=== PATIENT | male | born 1940 | race Caucasian/White ===

== ENCOUNTER → 2018-02-28 12:29 | Outpatient (CLI) | payer MEDICARE, OTHER, SELFPAY ==
[2018-02-28 14:29] LABS: Hematocrit 39.5 % (40-54); Hemoglobin 12.8 g/dl (13.0-16.5); Mean Corp Hgb Conc 32.4 g/gl (32-36); Mean Corpuscular Hgb 28.5 pg (27.0-32.0); Mean Platelet Vol. 10.4 fl (6.2-12.0); Platelet Count 220 K/mm3 (150-450); RBC Distribution Width SD 44.4 fl (35.1-43.9); Red Blood Count 4.49 M/mm3 (4.6-6.2); White Blood Count 8.2 K/mm3 (4.4-11.0)
[2018-02-28 14:30] LABS: Scan Indicated on CBC? Y/N NO
[2018-02-28 14:59] LABS: ALB/GLOB Ratio 0.8 RATIO (0.9-2.4); AST(SGOT) 17 U/L (15-37); Alanine Aminotransfer ALT/SGPT 17 U/L (16-61); Albumin, Serum 3.5 g/dL (3.2-5.0); Alkaline Phosphatase 71 U/L (45-117); Anion Gap 7 (5-15); BUN 40 mg/dL (7-18); BUN/Creat Ratio 28.2 RATIO (10-20); Calcium,Total 8.5 mg/dL (8.5-10.1); Chloride 107 mmol/L (98-107); Cholesterol 148 mg/dL (200); Creatinine, Serum 1.42 mg/dL (0.70-1.30); EST Glomerular Filtration Rate 51 mL/min (>60); Est Glom Filt Rate - Afr Amer 62 mL/min (>60); Globulin 4.2 g/dL (2.2-4.2); Glucose 95 mg/dL (74-106); High Density Lipoprotein 48 mg/dL; Potassium 4.1 mmol/L (3.5-5.1); Protein, Total 7.7 g/dL (6.4-8.2); Sodium Level 143 mmol/L (136-145); Triglycerides 92 mg/dL; Very Low Density Lipoprotein 18 mg/dL (5-40)
== END ==
PROVIDERS: Family Provider Family Medicine; PCP Family Medicine; Visit Provider Family Medicine
DX: I48.91 Unspecified atrial fibrillation (principal); E11.9 Type 2 diabetes mellitus without complications
CPT/HCPCS: 36415; 80053; 80061; 84443; 85027

== ENCOUNTER → 2018-03-15 17:59 | Outpatient (CLI) | payer MEDICARE, OTHER, SELFPAY ==
--- NOTE | 2018-03-15 | IMM_PTH ---
PATIENT: SANTOS GARCES LOC: [facility] U#:[id number] AGE/SX: 85/M ROOM: RE03/15/[address]: Dr. Abrahan Modi MD : 1940 BED: DIS: SPEC #: [id number] RECD: 03/22/18 16:57 STATUS: EUSEBIO MAYTE #: [id number] KENNY: 03/15/18 00:[address]: Abrahan Modi DEPT: IMMUNOHISTOCHEMISTRY RECD BY: Surekha Payne Tissues: Skin of back, NOS Procedures: Ayr-1 (initial) CK5-6 (add) P40 (add) S-100 (add) PHYSICIAN & INSTITUTION [place] [id number] SPECIMEN INFORMATION: Tissue Source: Back lesion Clinical Info: Back lesion Specimen Number: [id number] CPT code: 63893, 49905 x3 METHODOLOGY: Deparaffinized sections of prefer/formalin-fixed tissue or PAP/DQ stained slides are incubated with monoclonal/polyclonal antibodies/oligonucleotide probes. Localization is made via biotin free immunoperoxidase method. Appropriate controls are performed and reacted as expected. Results on target cell population are indicated in the following table: RESULTS: ANTIBODY / CLONE RESULT S-100 (4C4.9) negative MART-1 (A-103) negative CK5-6 (D5 & 1684) positive P40 (BC28) positive These tests were developed and their performance characteristics determined by [facility]. They may not have been cleared or approved by the U.S. Food and Drug Administration. The FDA has determined that such clearance or approval is not necessary. INTERPRETATION: Back lesion, excisional biopsy: Invasive squamous cell carcinoma. SJ:baljeet 03/22/18
--- NOTE | 2018-03-15 | LES_PTH ---
PATIENT: SANTOS GARCES LOC: [facility] U#:[id number] AGE/SX: 85/M ROOM: RE03/15/[address]: Dr. Abrahan Modi MD : 1940 BED: DIS: SPEC #: [id number] RECD: 03/15/18 17:58 STATUS: EUSEBIO HU #: [id number] KENNY: 03/15/18 00:[address]: Abrahan Modi DEPT: SURGICAL PATHOLOGY RECD BY: Caleb Bravo Tissues: Skin of back, NOS Procedures: Surgery Specimen Level IV HEADER OPERATION: Excision back PRE-OP DIAGNOSIS: Back lesion, rule out melanoma TISSUE SUBMITTED: Back lesion MICROSCOPIC DIAGNOSIS Back lesion, shave biopsy: Invasive squamous cell carcinoma extending up to deep and peripheral margins of the specimen. See comment. DOUGIE:baljeet 03/22/18 COMMENT Immunohistochemistry ([id number]) supports the above diagnosis. Case has been reviewed in consultation with Dr. Burris who concurs with the above diagnosis. IDC:AM MICROSCOPIC DESCRIPTION Slides are reviewed. GROSS DESCRIPTION Received in fixative is one container labeled with the patient's name and designated back. The specimen consists of a discoid fragment of light to dark vernon soft tissue measuring 1.5 cm in diameter and 0.2 cm in thickness. The specimen is inked, serially sectioned and totally submitted in one cassette. / AM:baljeet 03/16/18 TC:0 CPT: 03908
== END ==
PROVIDERS: Family Provider Family Medicine; PCP Family Medicine; Visit Provider Family Medicine
DX: L98.9 Disorder of the skin and subcutaneous tissue, unspecified (principal)
CPT/HCPCS: 88305; 88341; 88342

== ENCOUNTER → 2018-04-09 11:34 | Outpatient (CLI) | payer MEDICARE, OTHER, SELFPAY ==
--- NOTE | 2018-04-09 11:38 | RAD_ITS ---
STUDY: X-RAY - LEFT SHOULDER REASON FOR EXAM: Male, 77 years old. Shoulder pain TECHNIQUE: 4 view(s) of the shoulder. COMPARISON: None. FINDINGS: There is cephalad migration of the humeral head consistent with rotator cuff pathology. There is degenerative arthrosis of the acromioclavicular joint . Normal acromion. Normal humeral head and visualized proximal humerus. The soft tissue structures are unremarkable. Normal visualized pulmonary apex. RAD/Shoulder min 2 Views IMPRESSION: Cephalad migration of the humeral head suggestive of underlying rotator cuff injury. Degenerative changes. Electronically Signed: Sandra Liriano MD at 21:12 EDT Tel , Service support ,
== END ==
PROVIDERS: Family Provider Family Medicine; PCP Family Medicine; Visit Provider Family Medicine
DX: M25.512 Pain in left shoulder (principal)
CPT/HCPCS: 73030

== ENCOUNTER → 2018-05-26 08:20 | Outpatient (CLI) | payer MEDICARE, OTHER, SELFPAY ==
--- NOTE | 2018-05-26 08:20 | LES_PTH ---
PATIENT: SANTOS GARCES LOC: [facility] U#:[id number] AGE/SX: 85/M ROOM: RE05/26/[address]: Dr. Taras Collins MD : 1940 BED: DIS: SPEC #: [id number] RECD: 05/28/18 07:49 STATUS: EUSEBIO SCHROEDERMichelle #: [id number] KENNY: 05/26/18 08:[address]: Taras Collins DEPT: SURGICAL PATHOLOGY RECD BY: Josefa Quintanilla ENTERED: 05/28/18 09:37 SP TYPE: Lesion OTHR DR: Dr. Abrahan Modi MD Tissues: Skin of back, NOS Procedures: Surgery Specimen Level IV HEADER OPERATION: Excision squamous cell of back PRE-OP DIAGNOSIS: Squamous cell carcinoma TISSUE SUBMITTED: Back MICROSCOPIC DIAGNOSIS Squamous cell carcinoma of back, excision: Negative for residual carcinoma. Actinic keratosis. Lichenoid dermal chronic inflammation and dermal fibrosis consistent with scar. SJ:baljeet 05/30/18 COMMENT Please make reference to previous specimen ([id number]) back lesion, shave biopsy with diagnosis of invasive squamous cell carcinoma extending up to deep and peripheral margin of the specimen. Case has been reviewed in consultation with Dr. Burris who concurs with the above diagnosis. IDC:AM MICROSCOPIC DESCRIPTION Slides are reviewed. GROSS DESCRIPTION Received in fixative is one container labeled with the patient's name and designated back. The specimen consists of a vernon-white skin ellipse measuring 4.5 x 2 cm and up to 0.6 cm in thickness. The specimen is inked, serially sectioned and submitted entirely in four cassettes. Cassette 1 contains the tips. The specimen will be submitted after overnight fixation. / DOUGIE:baljeet 05/28/18 TC:5 CPT: 14943
== END ==
PROVIDERS: Family Provider Family Medicine; PCP Family Medicine; Visit Provider Surgery
DX: C44.529 Squamous cell carcinoma of skin of other part of trunk (principal)
CPT/HCPCS: 88305

== ENCOUNTER → 2018-06-07 14:55 | Outpatient (CLI) | payer MEDICARE, OTHER, SELFPAY ==
[2018-06-07 15:34] LABS: Absolute Lymphocyte Count 1.41 X10^3/ul (0.83-4.51); Absolute Neutrophil Count 3.5 X10^3/uL (2.0-7.7); Basophil# 0.02 X10^3/uL; Basophil% 0.4 % (0-1); Eosinophil# 0.09 X10^3/uL; Eosinophils% 1.6 % (0-5); Hematocrit 34.5 % (40-54); Hemoglobin 11.2 g/dl (13.0-16.5); Lymphocyte # 1.41 X10^3/ul (4.0); Lymphocyte % 25.4 % (19-41); Mean Corp Hgb Conc 32.5 g/gl (32-36); Mean Corpuscular Hgb 28.5 pg (27.0-32.0); Mean Corpuscular Volume 87.8 fL (80-94); Mean Platelet Vol. 9.3 fl (6.2-12.0); Monocyte# 0.57 X10^3/uL; Monocyte% 10.3 % (0-10); Neutrophil # 3.45 X10^3/uL (2.7-7.7); Neutrophil % 62.1 % (47-70); Platelet Count 240 K/mm3 (150-450); RBC Distribution Width CV 13.1 % (11.6-14.6); RBC Distribution Width SD 40.7 fl (35.1-43.9); Red Blood Count 3.93 M/mm3 (4.6-6.2); White Blood Count 5.6 K/mm3 (4.4-11.0)
[2018-06-07 15:39] LABS: POSITIVE COUNT NO; POSITIVE DIFFERENTIAL NO; POSITIVE MORPHOLOGY NO
[2018-06-07 16:07] LABS: Anion Gap 12 (5-15); BUN 21 mg/dL (7-18); BUN/Creat Ratio 21.3 RATIO (10-20); Calcium,Total 8.4 mg/dL (8.5-10.1); Chloride 109 mmol/L (98-107); Creatinine, Serum 0.99 mg/dL (0.70-1.30); EST Glomerular Filtration Rate 78 mL/min (>60); Est Glom Filt Rate - Afr Amer 95 mL/min (>60); Glucose 87 mg/dL (74-106); Potassium 3.6 mmol/L (3.5-5.1); Sodium Level 146 mmol/L (136-145); Thyroid Stim Hormone (TSH) 0.98 uIU/mL (0.358-3.74)
[2018-06-08 09:19] LABS: Vitamin D,25 Hydroxy 58.1 ng/mL (29.95-100.01)
[2018-06-10 11:20] LABS: Hep C Antibodies 0.1 s/co ratio (0.0-0.9)
== END ==
PROVIDERS: Family Provider Family Medicine; PCP Family Medicine; Visit Provider Family Medicine
DX: N18.2 Chronic kidney disease, stage 2 (mild) (principal); D63.1 Anemia in chronic kidney disease; E03.9 Hypothyroidism, unspecified; E55.9 Vitamin D deficiency, unspecified; Z11.59 Encounter for screening for other viral diseases
CPT/HCPCS: 36415; 80048; 82306; 84443; 85025; 86803

== ENCOUNTER 2019-02-09 12:26 | Inpatient (IN) | payer MEDICARE, OTHER, SELFPAY ==
[2019-02-09] VITALS (17 sets, daily range): BP systolic 136–173; BP diastolic 61–80; PULSE 89–112; RESP 16–28; TEMP 36.4–37.8; O2SAT 87–94; BMI 25.4; BMI 23.8; BMI 23.9
--- NOTE | 2019-02-09 12:50 | EKG12_ITS ---
Test Reason : COUGH Blood Pressure : / mmHG Vent. Rate : 099 BPM Atrial Rate : 110 BPM P-R Int : 000 ms QRS Dur : 104 ms QT Int : 370 ms P-R-T Axes : 000 -32 101 degrees QTc Int : 474 ms Atrial fibrillation Left axis deviation Minimal voltage criteria for LVH, may be normal variant Nonspecific ST & T Wave Abnormality Prolonged QT Abnormal ECG Confirmed by KYRIE BRANNON, CORBIN ([id number]), field map editor MANUEL CHERRY ([id number]) on 02/11/2019 11:59:59 AM Referred By: Gita Ventura Confirmed By:CORBIN MITTAL MD
--- NOTE | 2019-02-09 12:50 | RAD_ITS ---
STUDY: X-RAY CHEST REASON FOR EXAM: Male, 78 years old. Cough TECHNIQUE: Frontal and lateral views of the chest. COMPARISON: None. FINDINGS: Normal lung volumes. Bilateral lower lobe infiltrates worse on the right. No gross effusions. There is moderate cardiac enlargement. There has been CABG. Normal mediastinum and jamal. Normal visualized pulmonary arteries. There is atherosclerotic calcification of the aortic arch with tortuosity. The visualized bones and joints show degenerative changes. There is no demonstrated abnormality of the visualized soft tissue structures of the upper abdomen. RAD/Chest PA and Lateral IMPRESSION: Bilateral lower lobe infiltrates worse on the right. Electronically Signed: Michael Couch MD at 14:08 EDT , Service support ,
[2019-02-09] MEDS: 0.9% Normal Saline 1,000 ML 150 ML IV ×2 (13:14→15:54)
[2019-02-09] MEDS: Albuterol 2.5 MG/3 ML VIAL.NEB. INHALATION (13:20)
[2019-02-09] MEDS: Ipratropium/Albuterol Sulfate 3 ML AMPUL.NEB INHALATION ×2 (13:20→19:38)
[2019-02-09 13:25] LABS: Absolute Lymphocyte Count 0.75 X10^3/ul (0.83-4.51); Basophil# 0.01 X10^3/uL; Basophil% 0.1 % (0-1); Hematocrit 37.8 % (40-54); Hemoglobin 12.5 g/dl (13.0-16.5); Lymphocyte # 0.75 X10^3/ul (4.0); Lymphocyte % 7.4 % (19-41); Mean Corp Hgb Conc 33.1 g/gl (32-36); Mean Corpuscular Hgb 28.5 pg (27.0-32.0); Mean Corpuscular Volume 86.3 fL (80-94); Mean Platelet Vol. 10.4 fl (6.2-12.0); Monocyte# 0.41 X10^3/uL; Neutrophil % 88.4 % (47-70); POSITIVE COUNT NO; POSITIVE DIFFERENTIAL NO; POSITIVE MORPHOLOGY NO; Platelet Count 155 K/mm3 (150-450); RBC Distribution Width CV 14.4 % (11.6-14.6); Red Blood Count 4.38 M/mm3 (4.6-6.2); White Blood Count 10.2 K/mm3 (4.4-11.0)
[2019-02-09 13:38] LABS: Prothrombin Time (Protime)PT. 35.1 SECONDS (11.7-14.9)
[2019-02-09 13:42] LABS: Anion Gap 9 (5-15); BUN 29 mg/dL (7-18); BUN/Creat Ratio 21.3 RATIO (10-20); Calcium,Total 8.3 mg/dL (8.5-10.1); Chloride 105 mmol/L (98-107); Creatinine, Serum 1.36 mg/dL (0.70-1.30); EST Glomerular Filtration Rate 54 mL/min (>60); Est Glom Filt Rate - Afr Amer 65 mL/min (>60); Estimated Creatinine Clearance 32.17 ml/min; Glucose 162 mg/dL (74-106); Potassium 3.8 mmol/L (3.5-5.1); Sodium Level 141 mmol/L (136-145)
[2019-02-09 13:43] LABS: International Normalized Ratio 3.5
[2019-02-09 14:02] LABS: Lactic Acid 2.6 mmol/L (0.4-2.0)
--- NOTE | 2019-02-09 14:09 | ED.DCSUM_ITS ---
- ER Visit Summary Date of Service: 02/09/19 Chief Complaint: Cough, shortness of breath History of Present Illness: The patient is a 78 M with a 4-day history of cough and shortness of breath. He believes he has pneumonia. He denies fever or chest pain. He does have a history of COPD but does not use home oxygen and does not use aerosols. Patient does have a history of A. fib and PE and does take Coumadin. Physical Examination: Blood pressure is 163/80, temperature 98.6, heart rate 112, respiratory rate 18, pulse ox 94% on room air. At the time of my examination nursing staff has placed patient on nasal cannula because his oxygen saturation dropped to 88% on room air. Patient is sitting upright in bed no acute distress. Heart is regular rate and rhythm. Lungs sounds with mild expiratory wheeze at the right base. Abdomen is soft and nontender. Test Results: EKG is A. fib at [address] depression. CBC was normal white count but left shift is noted with 88% neutrophils. Hemoglobin is 12.5. Chemistry studies reveal glucose of 162, BUN 29, creatinine 1.36. INR is 3.5. Troponin is 0.015. Lactic acid is 2.6. Blood cultures have been obtained. Two-view chest x-ray reveals right lower lobe infiltrate. Emergency Department Course and Treatment: Patient was given aerosols and Rocephin and Zithromax were ordered upon completion of chest x-ray. With return of lactic acid patient is ordered IV fluid bolus. Patient will be admitted for further treatment. Treatment Plan: [] Disposition: Admit Impression: Right lower lobe pneumonia with severe sepsis This note was generated with [employer] dictation software. It may contain incorrect words, spelling, and punctuation that were not noted in review of the chart prior to signing ED Disposition - Plan for ED Patient: Referrals: Ihsan Modi MD [Primary Care Provider] -
[2019-02-09] MEDS: Ceftriaxone 1 GM/50 ML BAG IV ×2 (14:13→21:08)
--- NOTE | 2019-02-09 14:14 | HP.PCM_ITS ---
History of Present Illness Date of Admission: 02/09/19 Chief Complaint: shortness of breath, cough The patient is a 78 year old M with a past medical history as listed. He was admitted through the ED on 02/09/2019 with a complaint of cough and shortness of breath for the past 4 days prior to admission. He also has generalized malaise. He denied any fever chills or chest pain but admitted to rhinorrhea. He denies being around anyone with similar symptoms. Patient is on Coumadin for A. fib and PE. On admission in the ED, vitals were significant for tachycardia with heart rate of 112 respiratory rate of 20. He desaturated to 88% on room air required 2 L to bring saturation up to 94%. Chest x-ray showed bilateral lower lobe infiltrates and CBC was significant for no leukocytosis with white cell count of 10.2. EKG showed A. fib with concerns of possible lateral ischemia initial troponin was 0.015. He has been admitted to be managed for sepsis due to community-acquired pneumonia as well as acute hypoxic respiratory insufficiency due to committee acquired pneumonia. Of note lactic acid was 2.6. 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) Pulmonary embolism (Chronic) Hypothyroidism (Chronic) CAD (coronary artery disease) (Chronic) Cold (Chronic) Benign essential HTN (Chronic) History of tobacco use (Chronic) Atrial fibrillation (Chronic) Medical History: Medical History (Last Reviewed 04/23/18 @ 08:45 by Vanessa Knutson) Squamous cell carcinoma of skin (Acute) C44.92 Tobacco dependence in remission (Chronic) F17.201 Ruptured abdominal aortic aneurysm (Chronic) I71.3 Pulmonary embolism (Chronic) I26.99 Hypothyroidism (Chronic) E03.9 CAD (coronary artery disease) (Chronic) I25.10 Cold (Chronic) J00 Benign essential HTN (Chronic) I10 History of tobacco use (Chronic) Z87.891 Atrial fibrillation (Chronic) I48.91 Allergies No Known Allergies Allergy (Verified 05/26/18 08:01) Home Medications: Ambulatory Orders Medication Instructions Recorded amlodipine 10 mg tablet 10 mg PO QDAY 04/23/18 cholecalciferol (vitamin D3) 2,000 2,000 unit PO QDAY 04/23/18 unit capsule furosemide 40 mg tablet 20 mg PO QDAY 04/23/18 levothyroxine 75 mcg capsule 75 mcg PO QDAY 04/23/18 metoprolol succinate ER 200 mg 200 mg PO BID 04/23/18 tablet,extended release 24 hr nitroglycerin 0.4 mg sublingual 0.4 mg SUBLINGUAL Q5-15M PRN 04/23/18 tablet warfarin 4 mg tablet 4 mg PO QDAY 04/23/18 Amiodarone HCl [Pacerone] 200 mg PO DAILY 02/09/19 Ramipril [Altace] 10 mg PO BID 02/09/19 Surgical History: Surgical History (Last Updated 04/23/18 @ 08:45 by Vanessa Knutson) Hx of replacement of aortic valve (Chronic) Z95.2 historyamputation right hand Lives: Spouse/ Significant Other Smoking Status: Former smoker Tobacco Use: Non-smoker Alcohol: None Drugs: None - *Family History Maternal Family History: Family History (Last Updated 04/23/18 @ 08:47 by Vanessa Knutson) Grandfather Diabetes Brother Heart disease Review of Systems Constitutional: Reports: Anorexia, Malaise, Weakness, Fatigue. Denies: Chills, Fever Eyes: Denies: Blurred vision HEENT: Denies: Head Aches, Sinus Congestion, Sinus Drainage Cardiovascular: Denies: Chest Pain, Chest Pressure, Chest Tightness, Edema, Light Headedness, Palpitations, Paroxysmal Noc. Dyspnea Respiratory: Reports: Cough, Shortness of Breath, Shortness of breath at rest, Shortness of breath upon exertion, Sputum production. Denies: Hemoptysis, Pleuritic Pain, Wheezing Gastrointestinal: Denies: Abdominal Pain, Nausea, Vomiting Genitourinary: Denies: Dysuria Musculoskeletal: Denies: Joint Pain, Joint Tenderness Skin: Denies: Rash, Wounds Neurological: Denies: Numbness, Tingling, Focal weakness Psychiatric: Denies: Anxiety, Depression, Homicidal Ideations, Suicidal Ideations Hematologic/ Lymphatic: Denies: Easy Bruising, Easy Bleeding VTE Information - Inpt Only VTE Present on Admission: No VTE Pharm Prophylaxis ordered?: Yes - Physical Exam General: Alert, Oriented x3, Cooperative, Lethargic HEENT: Atraumatic, PERRLA, EOMI, Normocephalic Oral: Dry Mucosa Neck: Supple, No JVD, Negative Carotid Bruits Lungs: - - decreased breath sounds bibasally, with coarse crackles in mid and lower lung alonzo bilaterally Cardiovascular: Regular rate, Regular Rhythm, Normal S1, Normal S2, No murmurs Abdomen: Bowel Sounds Present, Soft, Non Tender, Non-Distended, No Hepato- splenomegaly Extremities: No clubbing, No cyanosis, No edema, Capillary Refill Less than 3 Seconds Skin: No rashes, No breakdown Musculoskeletal: - - right forearm amputation (from industrial accident in 1971) Lymphatic: No Cervical, Supraclavicular, or Inguinal Adenopathy Neurological: Cranial nerves II-XII grossly intact, Neuro grossly intact, Motor Exam 5/5 strength throughout Psych/Mental Status: Normal Affect, Appropriate, Alert and oriented to time, place, person, mood and affect Vital Signs Temp Pulse Resp BP Pulse Ox 97.6 F L 103 H 20 H 173/75 H 92 02/09/19 12:43 02/09/19 13:20 02/09/19 13:20 02/09/19 12:43 02/09/19 13:34 Oxygen Flow Rate (L/min) 2 Oxygen Delivery Method Nasal Cannula Weight: 130 lb Body Mass Index (BMI) 25.4 Laboratory Tests Past 24 Hrs 02/09/19 02/09/19 02/09/19 13:10 13:10 13:10 WBC 10.2 RBC 4.38 L Hgb 12.5 L Hct 37.8 L MCV 86.3 MCH 28.5 MCHC 33.1 RDW 14.4 RDW Differential 46.0 H Plt Count 155 MPV 10.4 Immature Gran % (Auto) 0.100 Neut % (Auto) 88.4 H Lymph % (Auto) 7.4 L [place] % (Auto) 4.0 Eos % (Auto) 0.0 Baso % (Auto) 0.1 Absolute Neuts (auto) 9.0 H Absolute Lymphs (auto) 0.75 L Total Counted Not Reportable PT 35.1 H INR 3.5 H* Sodium 141 Potassium 3.8 Chloride 105 Carbon Dioxide 27.0 Anion Gap 9 BUN 29 H Creatinine 1.36 H Estim Creat Clear Calc 32.17 Est GFR (MDRD) Af Amer 65 Est GFR (MDRD) Non-Af 54 L BUN/Creatinine Ratio 21.3 H Glucose 162 H Lactic Acid Calcium 8.3 L Troponin I 0.015 02/09/19 13:10 WBC RBC Hgb Hct MCV MCH MCHC RDW RDW Differential Plt Count MPV Immature Gran % (Auto) Neut % (Auto) Lymph % (Auto) [place] % (Auto) Eos % (Auto) Baso % (Auto) Absolute Neuts (auto) Absolute Lymphs (auto) Total Counted PT INR Sodium Potassium Chloride Carbon Dioxide Anion Gap BUN Creatinine Estim Creat Clear Calc Est GFR (MDRD) Af Amer Est GFR (MDRD) Non-Af BUN/Creatinine Ratio Glucose Lactic Acid 2.6 H Calcium Troponin I Diagnostic Data Chest X-Ray 02/09/19 12:50 IMPRESSION: Bilateral lower lobe infiltrates worse on the right. Electronically Signed: Michael Couch MD at 14:08 EDT , Service support , Assessment/Plan All Active Problems (Last Reviewed 04/23/18 @ 08:45 by Vanessa Knutson) Squamous cell carcinoma of skin (Acute) 78-year-old male admitted with a complaint of shortness of breath, cough and generalized malaise for 4 days prior to presentation. 1. Severe sepsis due to community acquired pneumonia * SIRS criteria- 2/4 (tachypnea and tachycardia) with elevated lactic acid of 2.6 * CXR showed bilateral infiltrates, worse on right * had mild fever of 99.6F * check respiratory panel * blood and sputum cultures * start IV ceftriaxone and azithromycin * titrate oxygen to maintain sats >90% * breathing treatments with duonebs * 2. Acute hypoxic respiratory insufficiency due to community acquired pneumonia * as under 1 * 3. DIONI * Cr is 1.36, baseline is 0.99 * likely due to dehydration * will hydrate with IVF and monitor * 4. Lactic acidosis: lactic acid is 2.6. Likely due to dehydration and sepsis. WIll hydrate and monitor. Repeat per sepsis protocol 5. Hypothyroidism: on synthroid 7. Afib: on amiodarone and metoprolol. on coumadin 4mg daily. INR is 3.5 8. Aortic valve replacement: INR is 3.5. WIll hold coumadin for today 9. Chronic heart failure with preserved EF : on lasix 20mg daily and metoprolol. EF is 60% (from echo-2014) DVT prophylaxis: on coumadin. Code status: Patient and counseled extensively about different types of CODE STATUS including full code, DNR CCA and DNR CCA. Patient elects to be full code. Total [id number] time 17 minutes. 8. Code Visit Inpatient E&M: 33516 Init Hosp L3 Procedures: 86606 Advncd Care Plan 30 Min
[2019-02-09 17:17] LABS: Reflex Lactate? Y
[2019-02-09 18:14] LABS: Lactic Acid 1.7 mmol/L (0.4-2.0)
[2019-02-09] MEDS: Metoprolol(XL)Succ 200 MG Tablet PO (21:08)
[2019-02-09] MEDS: Ramipril 10 MG Capsule PO (21:08)
[2019-02-10] VITALS (45 sets, daily range): BP systolic 109–168; BP diastolic 58–87; PULSE 93–127; RESP 12–28; TEMP 36.7–37.4; O2SAT 87–98
[2019-02-10] MEDS: Ipratropium/Albuterol Sulfate 3 ML AMPUL.NEB INHALATION ×3 (02:35→13:13)
[2019-02-10] MEDS: Amiodarone 200 MG Tablet PO (04:34)
[2019-02-10] MEDS: Metoprolol(XL)Succ 200 MG Tablet PO (06:25)
[2019-02-10] MEDS: Levothyroxine 75 MCG Tablet PO (06:26)
[2019-02-10 07:48] LABS: Anion Gap 8 (5-15); BUN 26 mg/dL (7-18); BUN/Creat Ratio 23.9 RATIO (10-20); Calcium,Total 7.8 mg/dL (8.5-10.1); Chloride 108 mmol/L (98-107); Creatinine, Serum 1.09 mg/dL (0.70-1.30); EST Glomerular Filtration Rate 70 mL/min (>60); Est Glom Filt Rate - Afr Amer 84 mL/min (>60); Estimated Creatinine Clearance 40.14 ml/min; Glucose 130 mg/dL (74-106); Potassium 3.4 mmol/L (3.5-5.1); Sodium Level 141 mmol/L (136-145)
[2019-02-10 07:57] LABS: International Normalized Ratio 2.7; Prothrombin Time (Protime)PT. 28.9 SECONDS (11.7-14.9)
[2019-02-10 08:02] LABS: Absolute Lymphocyte Count 0.42 X10^3/ul (0.83-4.51); Absolute Neutrophil Count 7.2 X10^3/uL (2.0-7.7); Basophil# 0.01 X10^3/uL; Basophil% 0.1 % (0-1); Hematocrit 37.6 % (40-54); Hemoglobin 12.1 g/dl (13.0-16.5); Lymphocyte # 0.42 X10^3/ul (4.0); Lymphocyte % 5.1 % (19-41); Mean Corp Hgb Conc 32.2 g/gl (32-36); Mean Platelet Vol. 10.3 fl (6.2-12.0); Monocyte# 0.52 X10^3/uL; Monocyte% 6.3 % (0-10); Neutrophil # 7.23 X10^3/uL (2.7-7.7); Neutrophil % 88.3 % (47-70); Platelet Count 132 K/mm3 (150-450); RBC Distribution Width CV 14.6 % (11.6-14.6); RBC Distribution Width SD 46.5 fl (35.1-43.9); Red Blood Count 4.32 M/mm3 (4.6-6.2); White Blood Count 8.2 K/mm3 (4.4-11.0)
[2019-02-10 08:08] LABS: Differential Indicated SCAN CRITERIA MET; POSITIVE COUNT NO; POSITIVE DIFFERENTIAL YES; POSITIVE MORPHOLOGY NO
[2019-02-10] MEDS: Ceftriaxone 1 GM/50 ML BAG IV ×2 (08:11→21:56)
[2019-02-10] MEDS: Ramipril 10 MG Capsule PO ×2 (08:12→21:56)
[2019-02-10] MEDS: amLODIPine 10 MG Tablet PO (08:13)
[2019-02-10] MEDS: Furosemide 20 MG Tablet PO (08:13)
[2019-02-10 08:53] LABS: Differential Comment SCANNED
--- NOTE | 2019-02-10 10:33 | PCM.PN.HOSP ---
Subjective: Patient seen and examined. He was on BiPAP at time of review. Patient required increasing amounts of oxygen during the night and was up to 6 L of oxygen before he was transferred to [facility]. Of note, patient had been on just 2 L of oxygen at time of admission yesterday. He denies any fever or chills but does admit to shortness of breath. He still has a cough which is still very productive. He denies palpitations or dizziness, diarrhea vomiting. Review of systems otherwise negative. Labs and vitals reviewed. Vitals/I&O's: Vital Signs Temp Pulse Resp BP Pulse Ox 98.1 F 115 H 20 H 162/74 H 89 02/10/19 08:20 02/10/19 08:20 02/10/19 08:20 02/10/19 08:20 02/10/19 08:20 Oxygen Flow Rate (L/min) 6 Oxygen Delivery Method Nasal Cannula Weight: 122 lb 5.705 oz Body Mass Index (BMI) 23.8 Intake and Output for Last 24 Hours 02/08/19 02/09/19 02/10/19 23:59 23:59 23:59 Intake Total 1232 / 1232 1154 / 1154 Balance 1232 / 1232 1154 / 1154 General: Alert, Oriented x3, Cooperative, Lethargic HEENT: Atraumatic, PERRLA, EOMI, Normocephalic Oral: Dry Mucosa Neck: Supple, No JVD, Negative Carotid Bruits Lungs: - - decreased breath sounds bibasally, with few coarse crackles in mid and lower lung alonzo bilaterally. on BIPAP Cardiovascular: Regular rate, Regular Rhythm, Normal S1, Normal S2, No murmurs Abdomen: Bowel Sounds Present, Soft, Non Tender, Non-Distended, No Hepato-splenomegaly Extremities: No clubbing, No cyanosis, No edema, Capillary Refill Less than 3 Seconds Skin: No rashes, No breakdown Musculoskeletal: - - right forearm amputation (from industrial accident in 1971) Lymphatic: No Cervical, Supraclavicular, or Inguinal Adenopathy Neurological: Cranial nerves II-XII grossly intact, Neuro grossly intact, Motor Exam 5/5 strength throughout Psych/Mental Status: Normal Affect, Appropriate, Alert and oriented to time, place, person, mood and affect Microbiology Past 72 Hours 02/09/19 17:32 Mucosa - Nasopharyngeal Respiratory Panel (PCR) - Final Adenovirus Laboratory Results 02/09/19 13:10: WBC 10.2, RBC 4.38 L, Hgb 12.5 L, Hct 37.8 L, MCV 86.3, MCH 28.5, MCHC 33.1, RDW 14.4, RDW Differential 46.0 H, Plt Count 155, MPV 10.4, Immature Gran % (Auto) 0.100, Neut % (Auto) 88.4 H, Lymph % (Auto) 7.4 L, [place] % (Auto) 4.0, Eos % (Auto) 0.0, Baso % (Auto) 0.1, Absolute Neuts (auto) 9.0 H, Absolute Lymphs (auto) 0.75 L, Total Counted Not Reportable 02/09/19 13:10: PT 35.1 H, INR 3.5 H* 02/09/19 13:10: Sodium 141, Potassium 3.8, Chloride 105, Carbon Dioxide 27.0, Anion Gap 9, BUN 29 H, Creatinine 1.36 H, Estim Creat Clear Calc 32.17, Est GFR (MDRD) Af Amer 65, Est GFR (MDRD) Non-Af 54 L, BUN/Creatinine Ratio 21.3 H, Glucose 162 H, Calcium 8.3 L, Troponin I 0.015 02/09/19 13:10: Lactic Acid 2.6 H 02/09/19 17:40: Lactic Acid 1.7 02/10/19 06:50: WBC 8.2, RBC 4.32 L, Hgb 12.1 L, Hct 37.6 L, MCV 87.0, MCH 28.0, MCHC 32.2, RDW 14.6, RDW Differential 46.5 H, Plt Count 132 L, MPV 10.3, Immature Gran % (Auto) 0.200, Neut % (Auto) 88.3 H, Lymph % (Auto) 5.1 L, [place] % (Auto) 6.3, Eos % (Auto) 0.0, Baso % (Auto) 0.1, Absolute Neuts (auto) 7.2, Absolute Lymphs (auto) 0.42 L, Total Counted Not Reportable, Differential Comment SCANNED 02/10/19 06:50: Sodium 141, Potassium 3.4 L, Chloride 108 H, Carbon Dioxide 25.0, Anion Gap 8, BUN 26 H, Creatinine 1.09, Estim Creat Clear Calc 40.14, Est GFR (MDRD) Af Amer 84, Est GFR (MDRD) Non-Af 70, BUN/Creatinine Ratio 23.9 H, Glucose 130 H, Calcium 7.8 L 02/10/19 06:50: PT 28.9 H, INR 2.7 Diagnostic Data Chest X-Ray 02/09/19 12:50 IMPRESSION: Bilateral lower lobe infiltrates worse on the right. Electronically Signed: Michael Couch MD at 14:08 EDT , Service support , Current Medications Albuterol/Ipratropium (Duoneb) 3 ml INHALATION Q6H.RT [facility] Last Admin: 02/10/19 07:40 Dose: 3 ml Amiodarone HCl (Cordarone) 200 mg PO DAILY [facility] Last Admin: 02/10/19 04:34 Dose: 200 mg Amlodipine Besylate (Norvasc) 10 mg PO DAILY [facility] Last Admin: 02/10/19 08:13 Dose: 10 mg Cholecalciferol (Vitamin D) 2,000 unit PO DAILYCM [facility] Last Admin: 02/10/19 08:13 Dose: 2,000 unit Dextrose (D50w Syringe) 0 gm IV X1 PRN; Protocol PRN Reason: Hypoglycemia Furosemide (Lasix) 20 mg PO DAILY [facility] Last Admin: 02/10/19 08:13 Dose: 20 mg Glucagon () 1 mg IM .X1 PRN PRN Reason: Hypoglycemia Azithromycin 500 mg/ Dextrose 255 mls @ 250 mls/hr IV Q24 [facility] Last Admin: 02/10/19 09:20 Dose: 250 mls/hr Ceftriaxone Sodium (Rocephin) 1 gm in 50 mls @ 100 mls/hr IV Q12 [facility] Last Admin: 02/10/19 08:11 Dose: 100 mls/hr Levothyroxine Sodium (Synthroid) 75 mcg PO DAILY@0600 [facility] Last Admin: 02/10/19 06:26 Dose: 75 mcg Metoprolol Succinate (Toprol Xl (Beta Ilan)) 200 mg PO BID [facility] Last Admin: 02/10/19 06:25 Dose: 200 mg Nitroglycerin (Nitrostat) 0.4 mg SUBLINGUAL .Q5-15M PRN PRN Reason: PAIN Potassium Chloride (K-Dur) 40 meq PO DAILY@0800 [facility] Last Admin: 02/10/19 08:12 Dose: 40 meq Ramipril (Altace) 10 mg PO BID [facility] Last Admin: 02/10/19 08:12 Dose: 10 mg Sodium Chloride () 5 - 15 ml IV UD PRN PRN Reason: SALINE FLUSH Warfarin Sodium (Coumadin (Pbkc)) 2 mg PO QDAY [facility] Medical Necessity - Tobacco Use Smoking Status: Former smoker Tobacco Use: Non-smoker Assessment/Plan All Active Problems (Last Reviewed 04/23/18 @ 08:45 by Vanessa Knutson) Squamous cell carcinoma of skin (Acute) 78-year-old male admitted with a complaint of shortness of breath, cough and generalized malaise for 4 days prior to presentation. 1. Severe sepsis due to community acquired pneumonia still has SIRS 2/4 criteria (tachypnea and tachycardia) was also febrile overnight, with temperature peaking at 100F respiratory panel was positive for adenovirus CXR showed bilateral infiltrates, worse on right blood cultures and sputum cultures pending continue IV ceftriaxone and azithromycin breathing treatments with duonebs titrate oxygen to maintain sats>90%. BIPAP prn 2. Acute hypoxic respiratory failure due to community acquired pneumonia and acute on chronic diastolic heart failure as under 1 and 3 required up to 6L of oxygen overnight, and had to be transitioned to BiPAP overnight will dc IVF and resume lasix as fluid overload may be a cause IV lasix 40mg bid BIPAP prn 3. Acute on chronic diastolic heart failure patient rquired increased amount of oxygen overnight, as under 2. IVF for sepsis was disconntinued BNP checked this morning was 1194 will start IV lasix 40mg bid; fluid restriction to 1500cc every 24 hours will get 2D echo. BIPAP prn consider cardiology and pulmonology consult if patient doesnt improve with diuresis monitor intake and output 4. DIONI resolved. Cr down to 1.09 from 1.36 on admission 5. Lactic acidosis: resolved. Lactic acid now down to 1.7, from 2.6 on admission. 6. Hypothyroidism: on synthroid 7. Afib: on amiodarone and metoprolol. on coumadin 2mg daily. INR is 2.7 today. Will resume coumadin. 8. Aortic valve replacement: INR is 2.7. Will resume coumadin. DVT prophylaxis: on coumadin. Code Visit Inpatient E&M: 38052 [facility] Hosp L3
--- NOTE | 2019-02-10 10:38 | PN_ITS ---
Subjective: Patient seen and examined. He was on BiPAP at time of review. Patient required increasing amounts of oxygen during the night and was up to 6 L of oxygen before he was transferred to [facility]. Of note, patient had been on just 2 L of oxygen at time of admission yesterday. He denies any fever or chills but does admit to shortness of breath. He still has a cough which is still very productive. He denies palpitations or dizziness, diarrhea vomiting. Review of systems otherwise negative. Labs and vitals reviewed. Vitals/I&O's: Vital Signs Temp Pulse Resp BP Pulse Ox 98.1 F 115 H 20 H 162/74 H 89 02/10/19 08:20 02/10/19 08:20 02/10/19 08:20 02/10/19 08:20 02/10/19 08:20 Oxygen Flow Rate (L/min) 6 Oxygen Delivery Method Nasal Cannula Weight: 122 lb 5.705 oz Body Mass Index (BMI) 23.8 Intake and Output for Last 24 Hours 02/08/19 02/09/19 02/10/19 23:59 23:59 23:59 Intake Total 1232 / 1232 1154 / 1154 Balance 1232 / 1232 1154 / 1154 General: Alert, Oriented x3, Cooperative, Lethargic HEENT: Atraumatic, PERRLA, EOMI, Normocephalic Oral: Dry Mucosa Neck: Supple, No JVD, Negative Carotid Bruits Lungs: - - decreased breath sounds bibasally, with few coarse crackles in mid and lower lung alonzo bilaterally. on BIPAP Cardiovascular: Regular rate, Regular Rhythm, Normal S1, Normal S2, No murmurs Abdomen: Bowel Sounds Present, Soft, Non Tender, Non-Distended, No Hepato- splenomegaly Extremities: No clubbing, No cyanosis, No edema, Capillary Refill Less than 3 Seconds Skin: No rashes, No breakdown Musculoskeletal: - - right forearm amputation (from industrial accident in 1971) Lymphatic: No Cervical, Supraclavicular, or Inguinal Adenopathy Neurological: Cranial nerves II-XII grossly intact, Neuro grossly intact, Motor Exam 5/5 strength throughout Psych/Mental Status: Normal Affect, Appropriate, Alert and oriented to time, place, person, mood and affect Microbiology Past 72 Hours 02/09/19 17:32 Mucosa - Nasopharyngeal Respiratory Panel (PCR) - Final Adenovirus Laboratory Results 02/09/19 13:10: WBC 10.2, RBC 4.38 L, Hgb 12.5 L, Hct 37.8 L, MCV 86.3, MCH 28.5, MCHC 33.1, RDW 14.4, RDW Differential 46.0 H, Plt Count 155, MPV 10.4, Imm ature Gran % (Auto) 0.100, Neut % (Auto) 88.4 H, Lymph % (Auto) 7.4 L, [place] % (Auto) 4.0, Eos % (Auto) 0.0, Baso % (Auto) 0.1, Absolute Neuts (auto) 9.0 H, Absolute Lymphs (auto) 0.75 L, Total Counted Not Reportable 02/09/19 13:10: PT 35.1 H, INR 3.5 H* 02/09/19 13:10: Sodium 141, Potassium 3.8, Chloride 105, Carbon Dioxide 27.0, Anion Gap 9, BUN 29 H, Creatinine 1.36 H, Estim Creat Clear Calc 32.17, Est GFR (MDRD) Af Amer 65, Est GFR (MDRD) Non-Af 54 L, BUN/Creatinine Ratio 21.3 H, Glucose 162 H, Calcium 8.3 L, Troponin I 0.015 02/09/19 13:10: Lactic Acid 2.6 H 02/09/19 17:40: Lactic Acid 1.7 02/10/19 06:50: WBC 8.2, RBC 4.32 L, Hgb 12.1 L, Hct 37.6 L, MCV 87.0, MCH 28.0, MCHC 32.2, RDW 14.6, RDW Differential 46.5 H, Plt Count 132 L, MPV 10.3, Immature Gran % (Auto) 0.200, Neut % (Auto) 88.3 H, Lymph % (Auto) 5.1 L, [place] % (Auto) 6.3, Eos % (Auto) 0.0, Baso % (Auto) 0.1, Absolute Neuts (auto) 7.2, Absolute Lymphs (auto) 0.42 L, Total Counted Not Reportable, Differential Comment SCANNED 02/10/19 06:50: Sodium 141, Potassium 3.4 L, Chloride 108 H, Carbon Dioxide 25.0, Anion Gap 8, BUN 26 H, Creatinine 1.09, Estim Creat Clear Calc 40.14, Est GFR (MDRD) Af Amer 84, Est GFR (MDRD) Non-Af 70, BUN/Creatinine Ratio 23.9 H, Glucose 130 H, Calcium 7.8 L 02/10/19 06:50: PT 28.9 H, INR 2.7 Diagnostic Data Chest X-Ray 02/09/19 12:50 IMPRESSION: Bilateral lower lobe infiltrates worse on the right. Electronically Signed: Michael Couch MD at 14:08 EDT , Service support , Current Medications Albuterol/Ipratropium (Duoneb) 3 ml INHALATION Q6H.RT [facility] Last Admin: 02/10/19 07:40 Dose: 3 ml Amiodarone HCl (Cordarone) 200 mg PO DAILY [facility] Last Admin: 02/10/19 04:34 Dose: 200 mg Amlodipine Besylate (Norvasc) 10 mg PO DAILY [facility] Last Admin: 02/10/19 08:13 Dose: 10 mg Cholecalciferol (Vitamin D) 2,000 unit PO DAILYCM [facility] Last Admin: 02/10/19 08:13 Dose: 2,000 unit Dextrose (D50w Syringe) 0 gm IV X1 PRN; Protocol PRN Reason: Hypoglycemia Furosemide (Lasix) 20 mg PO DAILY [facility] Last Admin: 02/10/19 08:13 Dose: 20 mg Glucagon () 1 mg IM .X1 PRN PRN Reason: Hypoglycemia Azithromycin 500 mg/ Dextrose 255 mls @ 250 mls/hr IV Q24 [facility] Last Admin: 02/10/19 09:20 Dose: 250 mls/hr Ceftriaxone Sodium (Rocephin) 1 gm in 50 mls @ 100 mls/hr IV Q12 [facility] Last Admin: 02/10/19 08:11 Dose: 100 mls/hr Levothyroxine Sodium (Synthroid) 75 mcg PO DAILY@0600 [facility] Last Admin: 02/10/19 06:26 Dose: 75 mcg Metoprolol Succinate (Toprol Xl (Beta Ilan)) 200 mg PO BID [facility] Last Admin: 02/10/19 06:25 Dose: 200 mg Nitroglycerin (Nitrostat) 0.4 mg SUBLINGUAL .Q5-15M PRN PRN Reason: PAIN Potassium Chloride (K-Dur) 40 meq PO DAILY@0800 [facility] Last Admin: 02/10/19 08:12 Dose: 40 meq Ramipril (Altace) 10 mg PO BID [facility] Last Admin: 02/10/19 08:12 Dose: 10 mg Sodium Chloride () 5 - 15 ml IV UD PRN PRN Reason: SALINE FLUSH Warfarin Sodium (Coumadin (Pbkc)) 2 mg PO QDAY [facility] Medical Necessity - Tobacco Use Smoking Status: Former smoker Tobacco Use: Non-smoker Assessment/Plan All Active Problems (Last Reviewed 04/23/18 @ 08:45 by Vanessa Knutson) Squamous cell carcinoma of skin (Acute) 78-year-old male admitted with a complaint of shortness of breath, cough and generalized malaise for 4 days prior to presentation. 1. Severe sepsis due to community acquired pneumonia * still has SIRS 2/4 criteria (tachypnea and tachycardia) * was also febrile overnight, with temperature peaking at 100F * respiratory panel was positive for adenovirus * CXR showed bilateral infiltrates, worse on right * blood cultures and sputum cultures pending * continue IV ceftriaxone and azithromycin * breathing treatments with duonebs * titrate oxygen to maintain sats>90%. BIPAP prn * 2. Acute hypoxic respiratory failure due to community acquired pneumonia and acute on chronic diastolic heart failure * as under 1 and 3 * required up to 6L of oxygen overnight, and had to be transitioned to BiPAP overnight * will dc IVF and resume lasix as fluid overload may be a cause * IV lasix 40mg bid * BIPAP prn * 3. Acute on chronic diastolic heart failure * patient rquired increased amount of oxygen overnight, as under 2. IVF for sepsis was disconntinued * BNP checked this morning was 1194 * will start IV lasix 40mg bid; fluid restriction to 1500cc every 24 hours * will get 2D echo. * BIPAP prn * consider cardiology and pulmonology consult if patient doesnt improve with diuresis * monitor intake and output * 4. DIONI * resolved. Cr down to 1.09 from 1.36 on admission * 5. Lactic acidosis: resolved. Lactic acid now down to 1.7, from 2.6 on admission. 6. Hypothyroidism: on synthroid 7. Afib: on amiodarone and metoprolol. on coumadin 2mg daily. INR is 2.7 today. Will resume coumadin. 8. Aortic valve replacement: INR is 2.7. Will resume coumadin. DVT prophylaxis: on coumadin. Code Visit Inpatient E&M: [id number] [facility] L3
[2019-02-10 11:12] LABS: BNP,B-Type NATRIURETIC PEPTIDE 1194.4 pg/mL (0-100)
[2019-02-10 14:31] LABS: Allen Test POS; Base Excess -3 mmol/L (-2 to +2); Bicarbonate 21.4 mmol/L (22-26); Blood Gas Specimen Type ART; O2 Delivery Device Nasal Can; PO2 52 mmHG (75-100); SITE L Brachial; SO2 88 % (95-99); Time Given 1421; Total Carbon Dioxide 22 mmol/L; pCO2 31.9 mmHg (35-45); pH 7.44 (7.35-7.45)
[2019-02-10] MEDS: Furosemide 40 MG/4 ML Vial IV ×2 (14:38→21:56)
[2019-02-10] MEDS: Metoprolol Tartrate 5 MG/5 ML Vial IV (14:38)
[2019-02-10 15:25] LABS: Magnesium 1.9 mg/dL (1.6-2.6); T4 Free Direct 1.46 ng/dL (0.76-1.46); Thyroid Stim Hormone (TSH) 1.14 uIU/mL (0.358-3.74)
--- NOTE | 2019-02-10 15:33 | PCM.CONS.C ---
Problem List (1) Atrial fibrillation Status: Chronic (2) CAD (coronary artery disease) Status: Chronic Qualifiers: Coronary Disease-Associated Artery/Lesion type: nome artery (3) S/P PTCA (percutaneous transluminal coronary angioplasty) Status: Chronic (4) Hx of replacement of aortic valve Status: Chronic (5) Thoracic aortic aneurysm, ruptured Status: Resolved (6) Pulmonary embolism Status: Chronic (7) Benign essential HTN Status: Chronic (8) Pneumonia Status: Acute Reason for Consult Date of Consultation: 02/10/19 History of Present Illness: The patient is a 78 year old white male who states he has a past cardiovascular history which is included CAD, PCI, thoracic aortic aneurysm-rupture status post repair, status post aortic valve replacement, superimposed on hypertension, DVT/PE, who now presents for evaluation of pneumonia and who is being referred for evaluation of atrial fibrillation with RVR. The patient does not recall being told that he has had atrial fibrillation in the past. However his [facility] medical records comment that he has chronic atrial fibrillation and has been on oral amiodarone therapy. The patient notes that he recently has not been feeling well. He has had a cough. He has been progressively short of breath and dyspneic. His oral intake has declined. He has been more tired and fatigued. His subsequently encouraged him to present to the hospital for further evaluation and care. He is denied ongoing chest discomfort. He states his breathing has been more problematic. He has denied ongoing lower extremity peripheral pitting edema. There is been no near syncope or syncope. He has not appeared to sense his irregular rapid heart rate. He states he has been evaluated in the past. This has included evaluation at [facility]. He notes while at age [age] he underwent cardiac catheterization and PCI/stenting procedures. He states his thoracic aortic aneurysm issue, which was acute, was subsequently evaluated and cared for at the [facility]. He states at the same time he received his aortic valve replacement. He does not know what type of aortic valve he has. He states that he has been followed by his type copy examiner at the [facility]. However he states he has not had an outpatient cardiovascular follow-up in at least 2 years. He believes his last outpatient local cardiovascular follow-up was in 2007. Those outpatient medical records are unavailable for review at this time. At the present time he continues with his concerns of shortness of breath/dyspnea. His oxygen requirements have increased. He has had troponin I level performed which is negative. His ECG demonstrated atrial fibrillation with rapid ventricular response with a leftward axis with possible voltage criteria for LVH with poor R wave progression and nonspecific ST and T wave abnormality. It appears he had a transthoracic echocardiogram performed on 06/30/2014. At that time based upon the report the left ventricle was considered normal size with normal systolic function with an LVEF of 60% with mild MR and mild TR and mild AI. The estimated RV systolic pressure was 22 mmHg. He also had a pharmacologic stress nuclear imaging study performed on 07-19-13. At that time based upon the myocardial perfusion study he had normal myocardial perfusion with a gated LVEF of 62%. [] Past Medical History Allergies/Adverse Reactions: Allergies No Known Allergies Allergy (Verified 05/26/18 08:01) Home Medications: Ambulatory Orders Medication Instructions Recorded amlodipine 10 mg tablet 5 mg PO QDAY 04/23/18 cholecalciferol (vitamin D3) 2,000 2,000 unit PO QDAY 04/23/18 unit capsule furosemide 40 mg tablet 20 mg PO QDAY 04/23/18 levothyroxine 75 mcg capsule 75 mcg PO QDAY 04/23/18 metoprolol succinate ER 200 mg 200 mg PO BID 04/23/18 tablet,extended release 24 hr nitroglycerin 0.4 mg sublingual 0.4 mg SUBLINGUAL Q5-15M PRN 04/23/18 tablet warfarin 4 mg tablet 2 mg PO QDAY 04/23/18 Amiodarone HCl [Pacerone] 200 mg PO DAILY 02/09/19 Potassium Chloride [K-Dur] 40 meq PO DAILY 02/09/19 Ramipril [Altace] 10 mg PO BID 02/09/19 Past Medical History (Chronic Problems): Chronic Problems (Last Reviewed 04/23/18 @ 08:45 by Vanessa Knutson) S/P PTCA (percutaneous transluminal coronary angioplasty) (Chronic) 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 of replacement of aortic valve (Chronic) Pulmonary embolism (Chronic) Hypothyroidism (Chronic) CAD (coronary artery disease) (Chronic) Cold (Chronic) Benign essential HTN (Chronic) History of tobacco use (Chronic) Atrial fibrillation (Chronic) Surgical History: angioplasty, - - Thoracic aortic [id number] Status post aortic valve replacement - *Family History Maternal Family History: Family History (Last Updated 04/23/18 @ 08:47 by Vanessa Knutson) Grandfather Diabetes Brother Heart disease Lives: Spouse/ Significant Other Smoking Status: Former smoker Tobacco Use: Non-smoker Alcohol: None Drugs: None Review of Systems - Review of Systems General: Reports: Fever, Decreased Appetite. Denies: Fatigue, Night Sweats Cardiovascular: Reports: Shortness of Breath. Denies: Chest Discomfort, Orthopnea, PND, Peripheral Edema, Palpitations, Lightheadedness, Dizziness, Near Syncope, Syncope Respiratory: Reports: Cough, Shortness of Breath. Denies: Hemoptysis Gastrointestinal: Denies: Hematemesis, Hematochezia, Melena Genitourinary: Denies: Dysuria, Hematuria Skin: Denies: Rash Subjectve: This is a 78-year-old white male who appears to be short of breath and dyspneic requiring increasing O2 supplements Objective: Vital Signs Temp Pulse Resp BP Pulse Ox 98.3 F 127 H 22 H 156/75 H 91 02/10/19 12:10 02/10/19 14:38 02/10/19 13:22 02/10/19 14:38 02/10/19 14:45 Oxygen Flow Rate (L/min) 7 Oxygen Delivery Method Nasal Cannula Weight: 122 lb 5.705 oz Body Mass Index (BMI) 23.8 Intake and Output for Last 24 Hours 02/08/19 02/09/19 02/10/19 23:59 23:59 23:59 Intake Total 1232 / 1232 1354 / 1354 Balance 1232 / 1232 1354 / 1354 General: Awake, Alert, Oriented x 3, Cooperative, Ill Appearing HEENT: Atraumatic, Normocephalic, PERRL, EOMI, Sclera Non Icteric Oral: Moist Mucosa Neck: Supple, Good ROM, No JVD Lungs: Diminished Dion Bases - Right greater than left Cardiovascular: Irregular Rhythm, Normal S1, Normal S2 Vascular: No Carotid Bruits Abdomen: Bowel Sounds Present, Soft, Non Tender Extremities: No edema, - - Status post right upper extremity/forearm amputation Psych/Mental Status: Appropriate 02/09/19 17:40: Lactic Acid 1.7 02/10/19 06:50: WBC 8.2, RBC 4.32 L, Hgb 12.1 L, Hct 37.6 L, MCV 87.0, MCH 28.0, MCHC 32.2, RDW 14.6, RDW Differential 46.5 H, Plt Count 132 L, MPV 10.3, Immature Gran % (Auto) 0.200, Neut % (Auto) 88.3 H, Lymph % (Auto) 5.1 L, [place] % (Auto) 6.3, Eos % (Auto) 0.0, Baso % (Auto) 0.1, Absolute Neuts (auto) 7.2, Total Counted Not Reportable 02/10/19 06:50: Sodium 141, Potassium 3.4 L, Chloride 108 H, Carbon Dioxide 25.0, Anion Gap 8, BUN 26 H, Creatinine 1.09, Est GFR (MDRD) Af Amer 84, Est GFR (MDRD) Non-Af 70, BUN/Creatinine Ratio 23.9 H, Glucose 130 H, Calcium 7.8 L 02/10/19 06:50: PT 28.9 H, INR 2.7 02/10/19 06:50: B-Natriuretic Peptide 1194.4 H 02/10/19 14:22: pH 7.44, Bicarbonate Actual 21.4 L, POC Total CO2 22, Base Excess -3 L, O2 Saturation 88 L, ABG pCO2 31.9 L, ABG pO2 52 L, Ramon Test POS 02/10/19 14:23: Magnesium 1.9, Troponin I 0.042 Rhythm: Atrial fibrillation EKG: As noted above ECHO: As noted above Stress Test: As noted above Cardiac Cath: Unavailable for review PCI: Unavailable for review CT Surgery: Unavailable for review CXR: Preliminary evaluation: Post open heart surgery changes: Right lower lobe infiltrate: Cannot exclude increased pulmonary vascularity: Please see official report Assessment/Plan 1. Atrial fibrillation with rapid ventricular response The patient has atrial fibrillation with rapid ventricular response. According to his past medical records or comments that he has had chronic atrial fibrillation. He appears to be unaware of this. However he he also has, based upon his previous medication list, medications with amiodarone listed. He is also been anticoagulated which he believes is because of his history of DVT/PE and potentially his aortic valve replacement. At the present time he is going to be monitored. He will continue rate limiting therapy. This will include IV diltiazem therapy. He has also been placed on IV amiodarone therapy to assist with rate and potentially rhythm control. He is anticoagulated with his warfarin/Coumadin. His levels will need to be followed. If his levels declined and he may need alternative forms of anticoagulant therapy. He will also continue cardiac evaluation. This will include in an attempt to obtain his previous cardiovascular records for continuity of care purposes. He will also have a transthoracic echocardiogram to evaluate his atrial size, ventricular size and systolic function, as well as his aortic valve anatomy and physiology. 2. CAD status post PCI The patient states he has a history of PCI. He states these were performed at [facility]. The details are unknown. At the moment he appears to be without evidence of acute coronary syndrome. He will continue medical management at this time for his underlying cardiopulmonary condition. He will be monitored for any concerning symptoms/events indicative of his underlying coronary artery disease process. He should continue medical therapy. Over time this would include agents such as aspirin if he is able, nitrates as needed, beta blockers as his pulmonary status allows, and lipid-lowering agents, etc. 3. Status post aortic valve replacement He has had an aortic valve replacement. The details are unknown. He will continue evaluation care with an echocardiogram which may provide assistance with his aortic valve anatomy and physiology. 4. Thoracic aortic aneurysm-rupture status post repair The details of this are unknown. Attempt will be made to locate previous past medical records. In the interim he will continue evaluation care as above. This will include an echocardiogram which may help with respect to his thoracic aortic anatomy, etc. 5. Hypertension He has a history of hypertension. He will continue medical management with adjustment as needed. 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 He states that is why he has been on long-term anticoagulant therapy. He will be followed and reassessed as needed. 7. Pneumonia He has been diagnosed with underlying pulmonary disease. Based upon his respiratory evaluation it appears that he has an underlying adenovirus. He will continue evaluation care by internal medicine and pulmonology/critical care medicine if needed. Comment: The patient's case has been discussed and reviewed with the patient, spouse, and Dr. Ventura. This note was generated using a voice recognition system and there may be incorrect words, spelling or punctuation that were not noted when reviewing the office note prior to saving.
[2019-02-10] MEDS: dilTIAZem 25 MG/5 ML Vial 20 MG IV BOLUS (16:00)
[2019-02-10] MEDS: 0.9% NaCl Peripheral Flush Adult/Peds IV ×2 (16:00→21:56)
[2019-02-10] MEDS: Acetaminophen 325 MG Tablet 650 MG PO (16:38)
[2019-02-11] VITALS (47 sets, daily range): BP systolic 98–151; BP diastolic 47–88; PULSE 68–127; RESP 12–25; TEMP 36.2–37.3; O2SAT 91–99
[2019-02-11 04:50] LABS: International Normalized Ratio 2.7; Prothrombin Time (Protime)PT. 28.5 SECONDS (11.7-14.9)
[2019-02-11 04:51] LABS: Absolute Lymphocyte Count 0.59 X10^3/ul (0.83-4.51); Absolute Neutrophil Count 7.1 X10^3/uL (2.0-7.7); Basophil# 0.01 X10^3/uL; Basophil% 0.1 % (0-1); Eosinophil# 0.01 X10^3/uL; Eosinophils% 0.1 % (0-5); Hematocrit 38.8 % (40-54); Hemoglobin 12.6 g/dl (13.0-16.5); Lymphocyte # 0.59 X10^3/ul (4.0); Lymphocyte % 7.1 % (19-41); Mean Corp Hgb Conc 32.5 g/gl (32-36); Mean Corpuscular Hgb 27.8 pg (27.0-32.0); Mean Corpuscular Volume 85.7 fL (80-94); Mean Platelet Vol. 10.9 fl (6.2-12.0); Monocyte# 0.57 X10^3/uL; Monocyte% 6.8 % (0-10); Neutrophil # 7.13 X10^3/uL (2.7-7.7); Neutrophil % 85.7 % (47-70); Platelet Count 164 K/mm3 (150-450); RBC Distribution Width CV 14.5 % (11.6-14.6); RBC Distribution Width SD 44.2 fl (35.1-43.9); Red Blood Count 4.53 M/mm3 (4.6-6.2); White Blood Count 8.3 K/mm3 (4.4-11.0)
[2019-02-11] MEDS: Levothyroxine 75 MCG Tablet PO (05:15)
[2019-02-11 05:17] LABS: AST(SGOT) 28 U/L (15-37); Alanine Aminotransfer ALT/SGPT 29 U/L (16-61); Albumin, Serum 2.4 g/dL (3.2-5.0); Alkaline Phosphatase 68 U/L (45-117); Anion Gap 9 (5-15); BUN 29 mg/dL (7-18); BUN/Creat Ratio 24.6 RATIO (10-20); Bilirubin, Direct 0.19 mg/dL (0.00-0.30); Calcium,Total 7.7 mg/dL (8.5-10.1); Chloride 106 mmol/L (98-107); Cholesterol 96 mg/dL (200); Creatinine, Serum 1.18 mg/dL (0.70-1.30); EST Glomerular Filtration Rate 64 mL/min (>60); Est Glom Filt Rate - Afr Amer 77 mL/min (>60); Estimated Creatinine Clearance 37.08 ml/min; Globulin 3.8 g/dL (2.2-4.2); Glucose 126 mg/dL (74-106); High Density Lipoprotein 29 mg/dL; Potassium 3.2 mmol/L (3.5-5.1); Protein, Total 6.2 g/dL (6.4-8.2); Sodium Level 143 mmol/L (136-145); Triglycerides 103 mg/dL; Very Low Density Lipoprotein 21 mg/dL (5-40)
[2019-02-11 05:23] LABS: Differential Indicated SCAN CRITERIA MET; POSITIVE COUNT NO; POSITIVE DIFFERENTIAL YES; POSITIVE MORPHOLOGY NO
--- NOTE | 2019-02-11 05:55 | EKG12_ITS ---
Test Reason : AM EKG Blood Pressure : / mmHG Vent. Rate : 115 BPM Atrial Rate : 108 BPM P-R Int : 000 ms QRS Dur : 106 ms QT Int : 340 ms P-R-T Axes : 000 -29 118 degrees QTc Int : 470 ms Atrial fibrillation Nonspecific ST & T Wave Abnormality Abnormal ECG Confirmed by KYRIE BRANNON, CORBIN ([id number]), digital editor MANUEL CHERRY ([id number]) on 02/12/2019 11:40:34 AM Referred By: Gita Ventura Confirmed By:CORBIN MITTAL MD
[2019-02-11] MEDS: Potassium Chloride 10mEq/100mL 10 MEQ/100 ML IV.SOLN. 100 MEQ IV BOLUS ×4 (06:36→12:36)
[2019-02-11 06:39] LABS: Differential Comment SCANNED
[2019-02-11] MEDS: Ipratropium/Albuterol Sulfate 3 ML AMPUL.NEB INHALATION ×3 (06:40→18:42)
--- NOTE | 2019-02-11 07:31 | PCM.PN.HOSP ---
Patient Problems: Active and Suspected Problems (Last Reviewed 04/23/18 @ 08:45 by Vanessa Knutson) Pneumonia (Acute) Subjective: The patient is short of breath. Feels flutter in chest. Complaint of chest congestion and bring some phlegm. court monitor shows heart rate in 120s with A. fib. Vitals/I&O's: Vital Signs Temp Pulse Resp BP Pulse Ox 98.0 F 110 H 20 H 134/74 H 96 02/11/19 04:00 02/11/19 06:40 02/11/19 06:40 02/11/19 06:00 02/11/19 06:40 Oxygen Flow Rate (L/min) 5 Oxygen Delivery Method Nasal Cannula Weight: 132 lb 15.02 oz Body Mass Index (BMI) 23.8 Intake and Output for Last 24 Hours 02/09/19 02/10/19 02/11/19 23:59 23:59 23:59 Intake Total 1232 / 1232 1604 / 1604 788 / 788 Output Total 450 / 450 1150 / 1150 Balance 1232 / 1232 1154 / 1154 -362 / -362 General: Alert, Oriented x3, Cooperative HEENT: Atraumatic, PERRLA, EOMI, Normocephalic Oral: Dry Mucosa Neck: Supple, No JVD, Negative Carotid Bruits Lungs: Diminished, Rhonchi, Short of Breath, Wheezes Cardiovascular: Normal S1, Normal S2, No murmurs, Irregular Rate, Tachycardic Abdomen: Bowel Sounds Present, Soft, Non Tender, Non-Distended Extremities: No edema, Capillary Refill Less than 3 Seconds, - - 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 forearm 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 industrial accident in 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 Skin: No rashes, No breakdown Musculoskeletal: No Tenderness to Palpation of Joints or Extremities, - Neurological: Cranial nerves II-XII grossly intact, Deep Tendon Reflexes 2+/4 and Symmetrical, Neuro grossly intact Psych/Mental Status: Normal Affect, Appropriate Microbiology Past 72 Hours 02/09/19 19:55 Sputum, Expectorated/Coughed Gram Stain - Final 02/09/19 17:32 Mucosa - Nasopharyngeal Respiratory Panel (PCR) - Final Adenovirus Laboratory Results 02/10/19 06:50: WBC 8.2, RBC 4.32 L, Hgb 12.1 L, Hct 37.6 L, MCV 87.0, MCH 28.0, MCHC 32.2, RDW 14.6, RDW Differential 46.5 H, Plt Count 132 L, MPV 10.3, Immature Gran % (Auto) 0.200, Neut % (Auto) 88.3 H, Lymph % (Auto) 5.1 L, [place] % (Auto) 6.3, Eos % (Auto) 0.0, Baso % (Auto) 0.1, Absolute Neuts (auto) 7.2, Absolute Lymphs (auto) 0.42 L, Total Counted Not Reportable, Differential Comment SCANNED 02/10/19 06:50: Sodium 141, Potassium 3.4 L, Chloride 108 H, Carbon Dioxide 25.0, Anion Gap 8, BUN 26 H, Creatinine 1.09, Estim Creat Clear Calc 40.14, Est GFR (MDRD) Af Amer 84, Est GFR (MDRD) Non-Af 70, BUN/Creatinine Ratio 23.9 H, Glucose 130 H, Calcium 7.8 L 02/10/19 06:50: PT 28.9 H, INR 2.7 02/10/19 06:50: B-Natriuretic Peptide 1194.4 H 02/10/19 14:22: Specimen Type ART, Sample Site L Brachial, pH 7.44, Bicarbonate Actual 21.4 L, POC Total CO2 22, Base Excess -3 L, O2 Saturation 88 L, ABG pCO2 31.9 L, ABG pO2 52 L, Ramon Test POS, O2 Delivery Device Nasal Can, Liter Flow 6.0, Blood Gas Notified Whom [facility] , Blood Gas Notified Time 1421 02/10/19 14:23: Magnesium 1.9, Troponin I 0.042, TSH 1.14, Free T4 1.46 02/10/19 16:35: Troponin I 0.042 02/10/19 19:30: Troponin I 0.037 02/11/19 04:25: PT 28.5 H, INR 2.7 02/11/19 04:25: WBC 8.3, RBC 4.53 L, Hgb 12.6 L, Hct 38.8 L, MCV 85.7, MCH 27.8, MCHC 32.5, RDW 14.5, RDW Differential 44.2 H, Plt Count 164, MPV 10.9, Immature Gran % (Auto) 0.200, Neut % (Auto) 85.7 H, Lymph % (Auto) 7.1 L, [place] % (Auto) 6.8, Eos % (Auto) 0.1, Baso % (Auto) 0.1, Absolute Neuts (auto) 7.1, Absolute Lymphs (auto) 0.59 L, Total Counted Not Reportable, Differential Comment SCANNED 02/11/19 04:25: Sodium 143, Potassium 3.2 L, Chloride 106, Carbon Dioxide 28.0, Anion Gap 9, BUN 29 H, Creatinine 1.18, Estim Creat Clear Calc 37.08, Est GFR (MDRD) Af Amer 77, Est GFR (MDRD) Non-Af 64, BUN/Creatinine Ratio 24.6 H, Glucose 126 H, Calcium 7.7 L, Total Bilirubin 0.50, Direct Bilirubin 0.19, AST 28, ALT 29, Alkaline Phosphatase 68, Total Protein 6.2 L, Albumin 2.4 L, Globulin 3.8, Triglycerides 103, Cholesterol 96, LDL Cholesterol 46, VLDL Cholesterol 21, HDL Cholesterol 29 L Current Medications Acetaminophen (Tylenol) 650 mg PO Q6H PRN PRN PRN Reason: PAIN Last Admin: 02/10/19 16:38 Dose: 650 mg Albuterol/Ipratropium (Duoneb) 3 ml INHALATION Q6H.RT [facility] Last Admin: 02/11/19 06:40 Dose: 3 ml Amlodipine Besylate (Norvasc) 10 mg PO DAILY SILVERIO Last Admin: 02/10/19 08:13 Dose: 10 mg Cholecalciferol (Vitamin D) 2,000 unit PO DAILYCM [facility] Last Admin: 02/10/19 08:13 Dose: 2,000 unit Dextrose (D50w Syringe) 0 gm IV X1 PRN; Protocol PRN Reason: Hypoglycemia Furosemide (Lasix) 40 mg IV BID@1000,1800 [facility] Last Admin: 02/10/19 21:56 Dose: 40 mg Glucagon () 1 mg IM .X1 PRN PRN Reason: Hypoglycemia Azithromycin 500 mg/ Dextrose 255 mls @ 250 mls/hr IV Q24 [facility] Last Admin: 02/10/19 09:20 Dose: 250 mls/hr Ceftriaxone Sodium (Rocephin) 1 gm in 50 mls @ 100 mls/hr IV Q12 [facility] Last Admin: 02/10/19 21:56 Dose: 100 mls/hr Amiodarone HCl 360 mg/ (Dextrose) 200 mls @ 16.67 mls/hr CONT INF .Q12H1M [facility] Stop: 02/11/19 15:29 Last Admin: 02/10/19 23:28 Dose: 16.67 mls/hr Diltiazem HCl 125 mg/ Dextrose 125 mls @ 5 mls/hr CONT INF .Q25H [facility] Last Admin: 02/11/19 06:36 Dose: 5 mls/hr Potassium Chloride () 10 meq in 100 mls @ 100 mls/hr IV BOLUS Q1H [facility] Stop: 02/11/19 10:29 Last Admin: 02/11/19 06:36 Dose: 100 mls/hr Levothyroxine Sodium (Synthroid) 75 mcg PO DAILY@0600 [facility] Last Admin: 02/11/19 05:15 Dose: 75 mcg Metoprolol Tartrate (Lopressor (Beta Ilan)) 5 mg IV Q6H PRN Last Admin: 02/10/19 14:38 Dose: 5 mg Nitroglycerin (Nitrostat) 0.4 mg SUBLINGUAL .Q5-15M PRN PRN Reason: PAIN Potassium Chloride (K-Dur) 40 meq PO DAILY@0800 [facility] Last Admin: 02/10/19 08:12 Dose: 40 meq Ramipril (Altace) 10 mg PO BID [facility] Last Admin: 02/10/19 21:56 Dose: 10 mg Sodium Chloride () 5 - 15 ml IV UD PRN PRN Reason: SALINE FLUSH Last Admin: 02/10/19 21:56 Dose: 10 ml Warfarin Sodium (Coumadin (Pbkc)) 2 mg PO DAILY@1700 [facility] Last Admin: 02/10/19 19:38 Dose: 2 mg Medical Necessity - Tobacco Use Smoking Status: Former smoker Tobacco Use: Non-smoker Assessment/Plan All Active Problems (Last Reviewed 04/23/18 @ 08:45 by Vanessa Knutson) Thoracic aortic aneurysm, ruptured (Resolved) Pneumonia (Acute) Squamous cell carcinoma of skin (Acute) 78-year-old male admitted with a complaint of shortness of breath, cough and generalized malaise for 4 days prior to presentation. Initially was admitted in PCU but was transferred to ICU secondary to progressive worsening of shortness of breath, hypoxia and A. fib with heart rate up to 140s. ABG done showed pH of 7.43 with pCO2 of 31.9 and pO2 of 52. 1. Severe sepsis due to community acquired pneumonia still has SIRS 2/4 criteria (tachypnea and tachycardia) was also febrile overnight, with temperature peaking at 100F Chest x-ray shows bilateral lower infiltrates, worse on the right respiratory panel was positive for adenovirus blood cultures and sputum cultures pending continue IV ceftriaxone and azithromycin breathing treatments with duonebs titrate oxygen to maintain sats>90%. 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 Acute hypoxic respiratory failure due to community acquired pneumonia and acute on chronic diastolic heart failure BiPAP overnight, on 5 to 6 L of oxygen through nasal cannula Treat underlying disorder 3. Acute on chronic diastolic heart failure BNP 1194 IV lasix 40mg bid; fluid restriction to 1500cc every 24 hours 2D echo. BIPAP prn monitor intake and output 4. DIONI resolved. Cr down to 1.09 from 1.36 on admission. Hypokalemia: K 3.2. On being replacement. Magnesium 1.9 on 02/10. 5. Lactic acidosis: resolved. Lactic acid now down to 1.7, from 2.6 on admission. 6. Hypothyroidism: on synthroid 7. Afib: on amiodarone and metoprolol. on coumadin 2mg daily. INR is 2.7 today. Will resume coumadin. 8. Aortic valve replacement: INR is 2.7. Will resume coumadin. DVT prophylaxis: on coumadin. Code Visit Inpatient E&M: [id number] [facility] L3
--- NOTE | 2019-02-11 07:34 | PN_ITS ---
Patient Problems: Active and Suspected Problems (Last Reviewed 04/23/18 @ 08:45 by Vanessa Knutson) Pneumonia (Acute) Subjective: The patient is short of breath. Feels flutter in chest. Complaint of chest congestion and bring some phlegm. cafeteria monitor shows heart rate in 120s with A. fib. Vitals/I&O's: Vital Signs Temp Pulse Resp BP Pulse Ox 98.0 F 110 H 20 H 134/74 H 96 02/11/19 04:00 02/11/19 06:40 02/11/19 06:40 02/11/19 06:00 02/11/19 06:40 Oxygen Flow Rate (L/min) 5 Oxygen Delivery Method Nasal Cannula Weight: 132 lb 15.02 oz Body Mass Index (BMI) 23.8 Intake and Output for Last 24 Hours 02/09/19 02/10/19 02/11/19 23:59 23:59 23:59 Intake Total 1232 / 1232 1604 / 1604 788 / 788 Output Total 450 / 450 1150 / 1150 Balance 1232 / 1232 1154 / 1154 -362 / -362 General: Alert, Oriented x3, Cooperative HEENT: Atraumatic, PERRLA, EOMI, Normocephalic Oral: Dry Mucosa Neck: Supple, No JVD, Negative Carotid Bruits Lungs: Diminished, Rhonchi, Short of Breath, Wheezes Cardiovascular: Normal S1, Normal S2, No murmurs, Irregular Rate, Tachycardic Abdomen: Bowel Sounds Present, Soft, Non Tender, Non-Distended Extremities: No edema, Capillary Refill Less than 3 Seconds, - - Right forearm 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 industrial accident in 1971 Skin: No rashes, No breakdown Musculoskeletal: No Tenderness to Palpation of Joints or Extremities, - Neurological: Cranial nerves II-XII grossly intact, Deep Tendon Reflexes 2+/4 and Symmetrical, Neuro grossly intact Psych/Mental Status: Normal Affect, Appropriate Microbiology Past 72 Hours 02/09/19 19:55 Sputum, Expectorated/Coughed Gram Stain - Final 02/09/19 17:32 Mucosa - Nasopharyngeal Respiratory Panel (PCR) - Final Adenovirus Laboratory Results 02/10/19 06:50: WBC 8.2, RBC 4.32 L, Hgb 12.1 L, Hct 37.6 L, MCV 87.0, MCH 28.0, MCHC 32.2, RDW 14.6, RDW Differential 46.5 H, Plt Count 132 L, MPV 10.3, Immature Gran % (Auto) 0.200, Neut % (Auto) 88.3 H, Lymph % (Auto) 5.1 L, [place] % (Auto) 6.3, Eos % (Auto) 0.0, Baso % (Auto) 0.1, Absolute Neuts (auto) 7.2, Absolute Lymphs (auto) 0.42 L, Total Counted Not Reportable, Differential Comment SCANNED 02/10/19 06:50: Sodium 141, Potassium 3.4 L, Chloride 108 H, Carbon Dioxide 25.0, Anion Gap 8, BUN 26 H, Creatinine 1.09, Estim Creat Clear Calc 40.14, Est GFR (MDRD) Af Amer 84, Est GFR (MDRD) Non-Af 70, BUN/Creatinine Ratio 23.9 H, Glucose 130 H, Calcium 7.8 L 02/10/19 06:50: PT 28.9 H, INR 2.7 02/10/19 06:50: B-Natriuretic Peptide 1194.4 H 02/10/19 14:22: Specimen Type ART, Sample Site L Brachial, pH 7.44, Bicarbonate Actual 21.4 L, POC Total CO2 22, Base Excess -3 L, O2 Saturation 88 L, ABG pCO2 31.9 L, ABG pO2 52 L, Ramon Test POS, O2 Delivery Device Nasal Can, Liter Flow 6.0, Blood Gas Notified Whom [facility] , Blood Gas Notified Time 1421 02/10/19 14:23: Magnesium 1.9, Troponin I 0.042, TSH 1.14, Free T4 1.46 02/10/19 16:35: Troponin I 0.042 02/10/19 19:30: Troponin I 0.037 02/11/19 04:25: PT 28.5 H, INR 2.7 02/11/19 04:25: WBC 8.3, RBC 4.53 L, Hgb 12.6 L, Hct 38.8 L, MCV 85.7, MCH 27.8, MCHC 32.5, RDW 14.5, RDW Differential 44.2 H, Plt Count 164, MPV 10.9, Immature Gran % (Auto) 0.200, Neut % (Auto) 85.7 H, Lymph % (Auto) 7.1 L, [place] % (Auto) 6.8, Eos % (Auto) 0.1, Baso % (Auto) 0.1, Absolute Neuts (auto) 7.1, Absolute Ly mphs (auto) 0.59 L, Total Counted Not Reportable, Differential Comment SCANNED 02/11/19 04:25: Sodium 143, Potassium 3.2 L, Chloride 106, Carbon Dioxide 28.0, Anion Gap 9, BUN 29 H, Creatinine 1.18, Estim Creat Clear Calc 37.08, Est GFR (MDRD) Af Amer 77, Est GFR (MDRD) Non-Af 64, BUN/Creatinine Ratio 24.6 H, Glucose 126 H, Calcium 7.7 L, Total Bilirubin 0.50, Direct Bilirubin 0.19, AST 28, ALT 29, Alkaline Phosphatase 68, Total Protein 6.2 L, Albumin 2.4 L, Globulin 3.8, Triglycerides 103, Cholesterol 96, LDL Cholesterol 46, VLDL Cholesterol 21, HDL Cholesterol 29 L Current Medications Acetaminophen (Tylenol) 650 mg PO Q6H PRN PRN PRN Reason: PAIN Last Admin: 02/10/19 16:38 Dose: 650 mg Albuterol/Ipratropium (Duoneb) 3 ml INHALATION Q6H.RT [facility] Last Admin: 02/11/19 06:40 Dose: 3 ml Amlodipine Besylate (Norvasc) 10 mg PO DAILY SILVERIO Last Admin: 02/10/19 08:13 Dose: 10 mg Cholecalciferol (Vitamin D) 2,000 unit PO DAILYCM [facility] Last Admin: 02/10/19 08:13 Dose: 2,000 unit Dextrose (D50w Syringe) 0 gm IV X1 PRN; Protocol PRN Reason: Hypoglycemia Furosemide (Lasix) 40 mg IV BID@1000,1800 [facility] Last Admin: 02/10/19 21:56 Dose: 40 mg Glucagon () 1 mg IM .X1 PRN PRN Reason: Hypoglycemia Azithromycin 500 mg/ Dextrose 255 mls @ 250 mls/hr IV Q24 [facility] Last Admin: 02/10/19 09:20 Dose: 250 mls/hr Ceftriaxone Sodium (Rocephin) 1 gm in 50 mls @ 100 mls/hr IV Q12 [facility] Last Admin: 02/10/19 21:56 Dose: 100 mls/hr Amiodarone HCl 360 mg/ (Dextrose) 200 mls @ 16.67 mls/hr CONT INF .Q12H1M [facility] Stop: 02/11/19 15:29 Last Admin: 02/10/19 23:28 Dose: 16.67 mls/hr Diltiazem HCl 125 mg/ Dextrose 125 mls @ 5 mls/hr CONT INF .Q25H [facility] Last Admin: 02/11/19 06:36 Dose: 5 mls/hr Potassium Chloride () 10 meq in 100 mls @ 100 mls/hr IV BOLUS Q1H [facility] Stop: 02/11/19 10:29 Last Admin: 02/11/19 06:36 Dose: 100 mls/hr Levothyroxine Sodium (Synthroid) 75 mcg PO DAILY@0600 [facility] Last Admin: 02/11/19 05:15 Dose: 75 mcg Metoprolol Tartrate (Lopressor (Beta Ilan)) 5 mg IV Q6H PRN Last Admin: 02/10/19 14:38 Dose: 5 mg Nitroglycerin (Nitrostat) 0.4 mg SUBLINGUAL .Q5-15M PRN PRN Reason: PAIN Potassium Chloride (K-Dur) 40 meq PO DAILY@0800 [facility] Last Admin: 02/10/19 08:12 Dose: 40 meq Ramipril (Altace) 10 mg PO BID [facility] Last Admin: 02/10/19 21:56 Dose: 10 mg Sodium Chloride () 5 - 15 ml IV UD PRN PRN Reason: SALINE FLUSH Last Admin: 02/10/19 21:56 Dose: 10 ml Warfarin Sodium (Coumadin (Pbkc)) 2 mg PO DAILY@1700 [facility] Last Admin: 02/10/19 19:38 Dose: 2 mg Medical Necessity - Tobacco Use Smoking Status: Former smoker Tobacco Use: Non-smoker Assessment/Plan All Active Problems (Last Reviewed 04/23/18 @ 08:45 by Vanessa Knutson) Thoracic aortic aneurysm, ruptured (Resolved) Pneumonia (Acute) Squamous cell carcinoma of skin (Acute) 78-year-old male admitted with a complaint of shortness of breath, cough and generalized malaise for 4 days prior to presentation. Initially was admitted in PCU but was transferred to ICU secondary to progressive worsening of shortness of breath, hypoxia and A. fib with heart rate up to 140s. ABG done showed pH of 7.43 with pCO2 of 31.9 and pO2 of 52. 1. Severe sepsis due to community acquired pneumonia * still has SIRS 2/4 criteria (tachypnea and tachycardia) * was also febrile overnight, with temperature peaking at 100F * Chest x-ray shows bilateral lower infiltrates, worse on the right * respiratory panel was positive for adenovirus * blood cultures and sputum cultures pending * continue IV ceftriaxone and azithromycin * breathing treatments with duonebs * titrate oxygen to maintain sats>90%. 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 Acute hypoxic respiratory failure due to community acquired pneumonia and acute on chronic diastolic heart failure * BiPAP overnight, on 5 to 6 L of oxygen through nasal cannula * Treat underlying disorder 3. Acute on chronic diastolic heart failure * BNP 1194 * IV lasix 40mg bid; fluid restriction to 1500cc every 24 hours * 2D echo. * BIPAP prn * monitor intake and output 4. DIONI * resolved. Cr down to 1.09 from 1.36 on admission. * Hypokalemia: K 3.2. On being replacement. Magnesium 1.9 on 02/10. 5. Lactic acidosis: resolved. Lactic acid now down to 1.7, from 2.6 on admission. 6. Hypothyroidism: on synthroid 7. Afib: on amiodarone and metoprolol. on coumadin 2mg daily. INR is 2.7 today. Will resume coumadin. 8. Aortic valve replacement: INR is 2.7. Will resume coumadin. DVT prophylaxis: on coumadin. Code Visit Inpatient E&M: 24039 [facility] L3
--- NOTE | 2019-02-11 08:00 | ECHOD_ITS ---
Reason For Study: CHF Procedure This was a 2D Doppler, Color Flow transthoracic echocardiogram. The study was technically difficult. Exam performed portable in ICU/CCU. Left Ventricle Normal LV size. Severe concentric left ventricular hypertrophy. Apical false tendon noted. Left ventricular systolic function is normal. The estimated ejection fraction is 55 %. Unable to assess diastolic dysfunction. No regional wall motion abnormalities noted. Right Ventricle Normal RV size. Normal systolic function. Atria The left atrium is moderately enlarged. The right atrium is mildly enlarged. No doppler evidence for ASD. Mitral Valve There is moderate mitral annular calcification. Extension of the mitral annular calcification onto the base of the posterior mitral valve leaflet. Mild diffuse mitral valve thickening. Mild-Moderate (1-2+) mitral valve insufficiency. Tricuspid Valve Normal tricuspid valve. Trivial tricuspid valve insufficiency. Right ventricular systolic pressure estimated to be 34 mmHg. Aortic Valve Trisinus/trileaflet aortic valve. Mild focal aortic valve calcification. Aortic sclerosis, no stenosis. Mild-Moderate (1-2+) aortic valve insufficiency. Pulmonic Valve The pulmonic valve is not well visualized. Trivial pulmonic valve insufficiency. Great Vessels Borderline to mildly enlarged aortic root. Pericardium/Pleural No pericardial effusion. MMode/2D Measurements & Calculations LVIDd: 4.1 cm IVSd: 1.9 cm LVOT diam: 2.3 cm LVIDs: 3.2 cm LVPWd: 1.7 cm LVOT area: 4.2 cm2 RVDd: 3.8 cm FS: 22.3 % Ao root diam: 3.8 cm LAV(MOD-bp): 91.3 ml LVAd ap4: 22.8 cm2 LAV(MOD-bp) Indexed: 56.3 ml/m2 EDV(MOD-sp4): 56.6 ml LAV(MOD-sp2): 96.9 ml EDV(sp4-el): 55.0 ml LAV(MOD-sp4): 85.3 ml LVAs ap4: 14.1 cm2 ESV(MOD-sp4): 27.6 ml ESV(sp4-el): 24.4 ml EF(MOD-sp4): 51.3 % EF(sp4-el): 55.6 % SV(MOD-sp4): 29.0 ml SV(sp4-el): 30.5 ml LA A4 area: 26.4 cm2 LA dimension(2D): 5.0 cm RA A4 area: 21.2 cm2 Doppler Measurements & Calculations MV E max chino: 109.1 cm/sec Ao V2 max: 180.5 cm/sec AI max chino: 385.6 cm/sec Ao max P.1 mmHg AI max P.5 mmHg Ao V2 mean: 127.8 cm/sec Ao mean P.2 mmHg AI dec slope: 301.6 cm/sec2 Ao V2 VTI: 29.7 cm AI P1/2t: 374.4 msec JESSEE(I,D): 2.6 cm2 JESSEE(V,D): 2.9 cm2 LV V1 max: 124.5 cm/sec SV(LVOT): 76.4 ml PA V2 max: 115.9 cm/sec LV V1 max P.3 mmHg LV V1 mean P.0 mmHg LV V1 mean: 80.6 cm/sec LV V1 VTI: 18.1 cm TR max chino: 254.7 cm/sec TR max P.9 mmHg Interpretation Summary The study was technically difficult. Left ventricular systolic function is normal. The estimated ejection fraction is 55 %. Severe concentric left ventricular hypertrophy. Apical false tendon noted. The left atrium is moderately enlarged. The right atrium is mildly enlarged. There is moderate mitral annular calcification. Extension of the mitral annular calcification onto the base of the posterior mitral valve leaflet. Mild diffuse mitral valve thickening. Mild-Moderate (1-2+) mitral valve insufficiency. Trivial tricuspid valve insufficiency. Aortic sclerosis, no stenosis. Mild-Moderate (1-2+) aortic valve insufficiency. Trivial pulmonic valve insufficiency. Borderline to mildly enlarged aortic root. Right ventricular systolic pressure estimated to be 34 mmHg. Unable to assess diastolic dysfunction. Ordering Physician: Gita Ventura Referring Physician: Abrahan Modi Performed By: Lisa Moreno, JANES, RVT
--- NOTE | 2019-02-11 08:05 | RAD_ITS ---
STUDY: X-RAY CHEST REASON FOR EXAM: Male, 78 years old. Shortness of breath. Sepsis. TECHNIQUE: Single AP portable view of the chest. COMPARISON: Comparison is made with prior study dated February 09, 2019. FINDINGS: EKG electrodes are seen. Surgical clips are seen in the right axillary region. Stable bibasilar infiltrates worse on the right side superimposed on scarring. There is no demonstrated pleural abnormality. Sternal cerclage wires and vascular clips are present from a prior sternotomy and coronary artery bypass graft procedure (CABG). Moderate cardiomegaly. Normal mediastinum and jamal. Normal visualized pulmonary arteries. There is atherosclerotic calcification of the aortic arch with tortuosity. There are diffuse degenerative changes of the visualized thoracic spine. Normal visualized ribs, clavicles, and shoulders. There is no demonstrated abnormality of the visualized soft tissue structures of the upper abdomen. RAD/Chest 1 View (Portable) IMPRESSION: Stable examination with bibasilar infiltrates more prominent on the right side. Electronically Signed: Milan Cao, at 14:41 EDT , Service support ,
[2019-02-11] MEDS: Acetaminophen 325 MG Tablet 650 MG PO (08:23)
[2019-02-11] MEDS: Ramipril 10 MG Capsule PO ×2 (09:59→22:13)
[2019-02-11] MEDS: amLODIPine 10 MG Tablet PO (09:59)
[2019-02-11] MEDS: Metoprolol Tartrate 25 MG Tablet PO (10:01)
--- NOTE | 2019-02-11 10:03 | PCM.CON.CC ---
Problem List (1) S/P PTCA (percutaneous transluminal coronary angioplasty) Status: Chronic (2) Squamous cell carcinoma of skin Status: Acute (3) Tobacco dependence in remission Status: Chronic (4) Hx of replacement of aortic valve Status: Chronic (5) Pulmonary embolism Status: Chronic (6) Hypothyroidism Status: Chronic (7) CAD (coronary artery disease) Status: Chronic Qualifiers: Coronary Disease-Associated Artery/Lesion type: samish artery (8) Benign essential HTN Status: Chronic Reason for Consult Date of Consultation: 02/11/19 Reason for Consultation: Hypoxic respiratory failure History of Present Illness: The patient is a 78 year old M, with past medical history listed below, who presented to [facility] on 02/09/2019 secondary to a 4-day history of cough and shortness of breath. Patient had presented complaining of perceived pneumonia. Patient did not have any fever or chest pain on presentation, but did have a history of COPD. Patient reportedly does not use oxygen at baseline. Patient did have a history of A. fib and previous pulmonary embolism, also was on anticoagulation with Coumadin therapy. On presentation to the emergency room, patient was noted to be 163/80 with a heart rate of 112 bpm and 94% on room air. Patient then started to decompensate with elevated heart rates. Initial lab work-up showed a creatinine of 1.36, INR of 3.5 and a lactate of 2.6. Chest x-ray showed a right lower lobe pneumonia. Patient was given Rocephin, Zithromax and admitted to the floor for further evaluation. Overnight, patient's oxygen requirements continued to worsen, requiring up to 6 L/min of nasal cannula oxygen prior to being transitioned to BiPAP therapy. Patient was reporting a productive cough, but denied any palpitations, diarrhea or vomiting. Patient was noted to be in A. fib with RVR and was evaluated by cardiology. Patient was placed on Cardizem and amiodarone. Patient was then transferred to the intensive care unit for further evaluation. Overnight in intensive care unit, patient did require BiPAP therapy. Patient did respond well to Lasix therapy and has been able to be weaned to 5 L nasal cannula this morning. No fevers have been noted overnight. No bleeding complications have been reported. Patient reports mild subjective improvement in overall condition. Review of systems otherwise negative x10 systems. 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 (Chronic) Pulmonary embolism (Chronic) Hypothyroidism (Chronic) CAD (coronary artery disease) (Chronic) Cold (Chronic) Benign essential HTN (Chronic) History of tobacco use (Chronic) Atrial fibrillation (Chronic) Medical History: Medical History (Last Reviewed 04/23/18 @ 08:45 by Vanessa Knutson) Squamous cell carcinoma of skin (Acute) C44.92 Tobacco dependence in remission (Chronic) F17.201 Ruptured abdominal aortic aneurysm (Chronic) I71.3 Pulmonary embolism (Chronic) I26.99 Hypothyroidism (Chronic) E03.9 CAD (coronary artery disease) (Chronic) I25.10 Cold (Chronic) J00 Benign essential HTN (Chronic) I10 History of tobacco use (Chronic) Z87.891 Atrial fibrillation (Chronic) I48.91 Allergies No Known Allergies Allergy (Verified 05/26/18 08:01) Home Medications: Ambulatory Orders Medication Instructions Recorded amlodipine 10 mg tablet 5 mg PO QDAY 04/23/18 cholecalciferol (vitamin D3) 2,000 2,000 unit PO QDAY 04/23/18 unit capsule furosemide 40 mg tablet 20 mg PO QDAY 04/23/18 levothyroxine 75 mcg capsule 75 mcg PO QDAY 04/23/18 metoprolol succinate ER 200 mg 200 mg PO BID 04/23/18 tablet,extended release 24 hr nitroglycerin 0.4 mg sublingual 0.4 mg SUBLINGUAL Q5-15M PRN 04/23/18 tablet warfarin 4 mg tablet 2 mg PO QDAY 04/23/18 Amiodarone HCl [Pacerone] 200 mg PO DAILY 02/09/19 Potassium Chloride [K-Dur] 40 meq PO DAILY 02/09/19 Ramipril [Altace] 10 mg PO BID 02/09/19 Surgical History: Surgical History (Last Updated 04/23/18 @ 08:45 by Vanessa Knutson) Hx of replacement of aortic valve (Chronic) 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 Agree with formal interpretation. Chest x-ray does show significant infiltrate. This is slightly improved following diuresis. Echocardiogram is not available at this time. - Physical Exam General: Alert, Oriented x3, Cooperative, No apparent distress, - - Appears stated age. Speaking in full sentences. HEENT: Atraumatic, PERRLA, EOMI, Normocephalic, - - Slight scleral injection without icterus Oral: Moist Mucosa, No Gingival or Mucosal Lesions/ Ulcerations Neck: Supple, No Nodes, Trachea Midline, JVD, Right Lungs: No rhonchi, No wheeze, Diminished, Rales, - - Symmetric expansion. Cardiovascular: Normal S1, Normal S2, No murmurs, Irregular Rate, No rub noted, No Gallop, Tachycardic Abdomen: Bowel Sounds Present, Soft, Non Tender, Non-Distended Extremities: No clubbing, No cyanosis, Edema Skin: No rashes, No breakdown Musculoskeletal: No Tenderness to Palpation of Joints or Extremities Lymphatic: No Cervical, Supraclavicular, or Inguinal Adenopathy Neurological: Cranial nerves II-XII grossly intact, Neuro grossly intact, Motor Exam 5/5 strength throughout Psych/Mental Status: Normal Affect, Appropriate Vital Signs Temp Pulse Resp BP Pulse Ox 36.7 C 100 23 H 113/65 95 02/11/19 04:00 02/11/19 10:01 02/11/19 09:00 02/11/19 10:01 02/11/19 09:00 Oxygen Flow Rate (L/min) 5 Oxygen Delivery Method Nasal Cannula Weight: 60.3 kg Body Mass Index (BMI) 23.8 Intake and Output for Last 24 Hours 02/09/19 02/10/19 02/11/19 23:59 23:59 23:59 Intake Total 1232 / 1232 1604 / 1604 788 / 788 Output Total 450 / 450 1150 / 1150 Balance 1232 / 1232 1154 / 1154 -362 / -362 Microbiology Past 72 Hours 02/09/19 19:55 Gram Stain - Final Sputum, Expectorated/Coughed 02/09/19 17:32 Respiratory Panel (PCR) - Final Mucosa - Nasopharyngeal Adenovirus Laboratory Tests Past 24 Hrs 02/10/19 02/10/19 02/10/19 06:50 14:22 14:23 WBC RBC Hgb Hct MCV MCH MCHC RDW RDW Differential Plt Count MPV Immature Gran % (Auto) Neut % (Auto) Lymph % (Auto) Arthur % (Auto) Eos % (Auto) Baso % (Auto) Absolute Neuts (auto) Absolute Lymphs (auto) Total Counted Differential Comment PT INR Specimen Type ART Sample Site L Brachial pH 7.44 Bicarbonate Actual 21.4 L POC Total CO2 22 Base Excess -3 L O2 Saturation 88 L ABG pCO2 31.9 L ABG pO2 52 L Ramon Test POS O2 Delivery Device Nasal Can Liter Flow 6.0 Blood Gas Notified Whom [facility] MD Blood Gas Notified Time 1421 Sodium Potassium Chloride Carbon Dioxide Anion Gap BUN Creatinine Estim Creat Clear Calc Est GFR (MDRD) Af Amer Est GFR (MDRD) Non-Af BUN/Creatinine Ratio Glucose Calcium Magnesium 1.9 Total Bilirubin Direct Bilirubin AST ALT Alkaline Phosphatase Troponin I 0.042 B-Natriuretic Peptide 1194.4 H Total Protein Albumin Globulin Triglycerides Cholesterol LDL Cholesterol VLDL Cholesterol HDL Cholesterol TSH 1.14 Free T4 1.46 02/10/19 02/10/19 02/11/19 16:35 19:30 04:25 WBC RBC Hgb Hct MCV MCH MCHC RDW RDW Differential Plt Count MPV Immature Gran % (Auto) Neut % (Auto) Lymph % (Auto) Arthur % (Auto) Eos % (Auto) Baso % (Auto) Absolute Neuts (auto) Absolute Lymphs (auto) Total Counted Differential Comment PT 28.5 H INR 2.7 Specimen Type Sample Site pH Bicarbonate Actual POC Total CO2 Base Excess O2 Saturation ABG pCO2 ABG pO2 Ramon Test O2 Delivery Device Liter Flow Blood Gas Notified Whom Blood Gas Notified Time Sodium Potassium Chloride Carbon Dioxide Anion Gap BUN Creatinine Estim Creat Clear Calc Est GFR (MDRD) Af Amer Est GFR (MDRD) Non-Af BUN/Creatinine Ratio Glucose Calcium Magnesium Total Bilirubin Direct Bilirubin AST ALT Alkaline Phosphatase Troponin I 0.042 0.037 B-Natriuretic Peptide Total Protein Albumin Globulin Triglycerides Cholesterol LDL Cholesterol VLDL Cholesterol HDL Cholesterol TSH Free T4 02/11/19 02/11/19 04:25 04:25 WBC 8.3 RBC 4.53 L Hgb 12.6 L Hct 38.8 L MCV 85.7 MCH 27.8 MCHC 32.5 RDW 14.5 RDW Differential 44.2 H Plt Count 164 MPV 10.9 Immature Gran % (Auto) 0.200 Neut % (Auto) 85.7 H Lymph % (Auto) 7.1 L Arthur % (Auto) 6.8 Eos % (Auto) 0.1 Baso % (Auto) 0.1 Absolute Neuts (auto) 7.1 Absolute Lymphs (auto) 0.59 L Total Counted Not Reportable Differential Comment SCANNED PT INR Specimen Type Sample Site pH Bicarbonate Actual POC Total CO2 Base Excess O2 Saturation ABG pCO2 ABG pO2 Ramon Test O2 Delivery Device Liter Flow Blood Gas Notified Whom Blood Gas Notified Time Sodium 143 Potassium 3.2 L Chloride 106 Carbon Dioxide 28.0 Anion Gap 9 BUN 29 H Creatinine 1.18 Estim Creat Clear Calc 37.08 Est GFR (MDRD) Af Amer 77 Est GFR (MDRD) Non-Af 64 BUN/Creatinine Ratio 24.6 H Glucose 126 H Calcium 7.7 L Magnesium Total Bilirubin 0.50 Direct Bilirubin 0.19 AST 28 ALT 29 Alkaline Phosphatase 68 Troponin I B-Natriuretic Peptide Total Protein 6.2 L Albumin 2.4 L Globulin 3.8 Triglycerides 103 Cholesterol 96 LDL Cholesterol 46 VLDL Cholesterol 21 HDL Cholesterol 29 L TSH Free T4 Clinical Impression(s) from Imaging Studies Chest X-Ray 02/09/19 12:50 IMPRESSION: Bilateral lower lobe infiltrates worse on the right. Electronically Signed: Michael Couch MD at 14:08 EDT , Service support , Assessment/Plan Active and Suspected Problems (Last Reviewed 04/23/18 @ 08:45 by Vanessa Knutson) Pneumonia (Acute) RECOMMENDATIONS: 1. Likely okay to discontinue antibiotics once blood culture negative 2. Continue diuresis 3. Rate control/amiodarone per cardiology recommendations 4. Wean oxygen as tolerated, BiPAP rescue as indicated 5. Await echocardiogram 6. Aggressive potassium repletion IMPRESSIONS: 1. Acute hypoxic respiratory failure secondary to adenoviral pneumonia and acute on chronic congestive heart failure Clinical suspicion for exacerbation of diastolic congestive heart failure secondary to A. fib with RVR. Patient did have an elevated BNP on presentation and has responded well to IV Lasix. Echocardiogram has been ordered for evaluation of function. Patient can continue to use BiPAP as necessary during the day. Would continue with BiPAP overnight. Rate control per cardiology. Patient currently on Cardizem drip and amiodarone. No indication for emergent cardioversion. 2. Acute on chronic diastolic congestive heart failure secondary to A. fib with RVR Patient reportedly does have a history of atrial fibrillation in the past and is on Coumadin therapy. Patient also had an aortic valve replacement. Await echocardiogram to see atrial size. Patient may need evaluation for ablation. Cardiology is currently consulted. 3. Acute kidney injury/hypokalemia Patient with elevation of creatinine to 1.36 on presentation. Patient has responded well to interventions. Decreased potassium likely secondary to diuretic therapy. Aggressive repletion has been ordered. We will continue to monitor this and magnesium intermittently. 4. Severe sepsis secondary to probable adenovirus Patient has come back positive for adenovirus, which may account for positive sirs criteria. However, continuation of IV antibiotics would be reasonable until blood cultures are negative as patient does have extensive infiltrates on chest x-ray. If blood cultures are negative, discontinuation of antibiotics would be reasonable. Sputum is only growing normal gifty at this time. 5. Hypothyroidism/history of aortic valve replacement/advanced age/history of tobacco use/history of squamous cell carcinoma of the skin Complicates care, management, recovery and prognosis. Monitor INR on a daily basis given patient's concomitant antibiotics. Code Visit Inpatient E&M: 19299 Init Hosp L3
[2019-02-11] MEDS: Ceftriaxone 1 GM/50 ML BAG IV ×2 (10:06→22:19)
--- NOTE | 2019-02-11 10:14 | CASEMGMT ---
RN CM Assessment Presentation: Pneumonia. shortness of breath, cough. Intro role of CM and purpose of RN CM assessment to patient, his and son. Pt is awake alert, able to participate in assessment. is able to give information also.. Demographics, PCP and Pharmacy verified. 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 PCP: Dr. Modi Specialists: Dr. Jones Preferred Pharmacy: [facility] Insurance: [facility] Prescription Benefit: yes LNOK: , Vanessa Lifer Living Arrangements: Pt lives in two story home with his . Is independent in ADL's and active around home. Transportation: drives DME: no ambulatory DME or oxygen use @ home HHC: none Patient DC goals: Home DC PLAN: Home. PT/OT evals pending- if needs arise, CM will assist with dc planning. Ela HUYNHN RN ACM
[2019-02-11] MEDS: Furosemide 40 MG/4 ML Vial IV ×2 (11:12→18:11)
--- NOTE | 2019-02-11 17:46 | EKG12_ITS ---
Test Reason : Blood Pressure : / mmHG Vent. Rate : 078 BPM Atrial Rate : 078 BPM P-R Int : 168 ms QRS Dur : 098 ms QT Int : 390 ms P-R-T Axes : 035 -31 019 degrees QTc Int : 444 ms Normal sinus rhythm with sinus arrhythmia Left axis deviation Left ventricular hypertrophy Nonspecific ST abnormality Abnormal ECG When compared with ECG of 11-FEB-2019 05:23, MANUAL COMPARISON REQUIRED, DATA IS UNCONFIRMED Confirmed by MARLENE DEGROOT ([id number]), multimedia editor JOHN SHAH ([id number]) on 02/18/2019 2:28:27 PM Referred By: Gita Ventura Confirmed By:ANNA DEGROOT
--- NOTE | 2019-02-11 17:54 | PN.CARD_ITS ---
Subjectve: The patient was evaluated earlier this day. At that time he was in atrial fibrillation. He stated overall he thought his breathing was somewhat improved. As the day has progressed he has subsequently spontaneously converted to sinus rhythm. Objective: Vital Signs Temp Pulse Resp BP Pulse Ox 97.1 F L 72 15 124/50 H 94 02/11/19 12:00 02/11/19 15:30 02/11/19 15:00 02/11/19 15:00 02/11/19 15:00 Oxygen Flow Rate (L/min) 5 Oxygen Delivery Method Nasal Cannula Weight: 132 lb 15.02 oz Body Mass Index (BMI) 23.8 Intake and Output for Last 24 Hours 02/09/19 02/10/19 02/11/19 23:59 23:59 23:59 Intake Total 1232 / 1232 1604 / 1604 1903 / 1903 Output Total 450 / 450 1350 / 1350 Balance 1232 / 1232 1154 / 1154 553 / 553 General: Awake, Alert, Oriented x 3, Cooperative Neck: Supple, Good ROM, No JVD Lungs: Rhonchi Cardiovascular: Regular Rhythm, Normal S1, Normal S2 Abdomen: Bowel Sounds Present, Soft, Non Tender Extremities: No edema Psych/Mental Status: Appropriate 02/10/19 19:30: Troponin I 0.037 02/11/19 04:25: PT 28.5 H, INR 2.7 02/11/19 04:25: WBC 8.3, RBC 4.53 L, Hgb 12.6 L, Hct 38.8 L, MCV 85.7, MCH 27.8, MCHC 32.5, RDW 14.5, RDW Differential 44.2 H, Plt Count 164, MPV 10.9, Immature Gran % (Auto) 0.200, Neut % (Auto) 85.7 H, Lymph % (Auto) 7.1 L, Wilkinson % (Auto) 6.8, Eos % (Auto) 0.1, Baso % (Auto) 0.1, Absolute Neuts (auto) 7.1, Total Counted Not Reportable 02/11/19 04:25: Sodium 143, Potassium 3.2 L, Chloride 106, Carbon Dioxide 28.0, Anion Gap 9, BUN 29 H, Creatinine 1.18, Est GFR (MDRD) Af Amer 77, Est GFR (MDRD) Non-Af 64, BUN/Creatinine Ratio 24.6 H, Glucose 126 H, Calcium 7.7 L, Total Bilirubin 0.50, Direct Bilirubin 0.19, Triglycerides 103, Cholesterol 96, LDL Cholesterol 46, VLDL Cholesterol 21, HDL Cholesterol 29 L Rhythm: Sinus rhythm ECHO: Interpretation Summary The study was technically difficult. Left ventricular systolic function is normal. The estimated ejection fraction is 55 %. Severe concentric left ventricular hypertrophy. Apical false tendon noted. The left atrium is moderately enlarged. The right atrium is mildly enlarged. There is moderate mitral annular calcification. Extension of the mitral annular calcification onto the base of the posterior mitral valve leaflet. Mild diffuse mitral valve thickening. Mild-Moderate (1-2+) mitral valve insufficiency. Trivial tricuspid valve insufficiency. Aortic sclerosis, no stenosis. Mild-Moderate (1-2+) aortic valve insufficiency. Trivial pulmonic valve insufficiency. Borderline to mildly enlarged aortic root. Right ventricular systolic pressure estimated to be 34 mmHg. Unable to assess diastolic dysfunction. Stress Test: 02/12/2009: [facility]: Report of a pharmacologic stress nuclear imaging study with normal ECG response: The remainder of the report is unavailable at this time for review Cardiac Cath: 05-25-2006: [facility]: Left main coronary artery with minimal stenosis; LAD with mild diffuse disease; second diagonal branch stented with 80% pre-stent stenosis; LCx with mild to moderate diffuse disease; RCA with no significant stenosis with mild to moderate diffuse disease; left ventricle preserved with an LVEF of 60%; recommendation for PTCA of the diagonal branch 03-01-2005: Left main with ostial and distal 10% stenosis; LAD with proximal 20 to 30% stenosis, 30 to 40% stenosis, and mid 10 to 20% stenosis; second diagonal branch with ostial 10 to 20% stenosis in proximal 95 to 99% stenosis and mid 50 to 60% stenosis; LCx with proximal 10 to 20% stenosis; RCA with ostial 10 to 20% stenosis and proximal 20 to 30% stenosis; small first PDA of the RCA with ostial 20 to 30% stenosis in the large main PDA of the RCA with ostial 10 to 20% stenosis; hyperdynamic LV with an LVEF of 78%-possibly overestimated secondary to ventricular tachycardia PCI: 01-23-2006: Successful restenting of the second diagonal artery and a separate PTCA/no stent of the LAD 5-17-2005: PTCA/stent of the proximal mid first diagonal branch with a Taxus drug-eluting stent CT Surgery: 10-28-2007: [facility]: Thoracic aortic dissection type A/type I: Hemashield 32 mm conduit in the a sending aorta [facility] notes: Comment on an intramural hematoma into the left common iliac artery with patent false lumen which supplies the left renal artery and diminished left perfusion Medical Necessity - Tobacco Use Smoking Status: Former smoker Tobacco Use: Non-smoker Assessment/Plan 1. Atrial fibrillation with rapid ventricular response The patient does have a history, based upon his [facility] medical records, postoperative atrial fibrillation treated with anticoagulation therapy and antiarrhythmic therapy with amiodarone. At the present time the patient, on rate limiting therapy and antiarrhythmic therapy, but has converted from atrial fibrillation to sinus rhythm. At the present time he will continue medical management. This will include rate control therapy with his beta-blockers and antiarrhythmic therapy with IV amiodarone with eventual transition to oral amiodarone. He continues anticoagulant therapy with warfarin. 2. CAD status post PCI The patient states he has a history of PCI. He states these were performed at [facility]. The details are as noted above. At the moment he appears to be without evidence of acute coronary syndrome. He will continue medical management at this time for his underlying cardiopulmonary condition. He will be monitored for any concerning symptoms/events indicative of his underlying coronary artery disease process. He should continue medical therapy. Over time this would include agents such as aspirin if he is able, nitrates as needed, beta blockers as his pulmonary status allows, and lipid-lowering agents, etc. 3. Status post aortic valve replacement He has medical records available for review from [facility], and on his thoracic aortic dissection type a/type I being repaired with a Hemashield 32 mm conduit in the a sending aorta. His additional F records do not comment on any specific aortic valve repair/replacement. He has had multiple [facility] echocardiograms performed in 2007 and 2008. Based upon the medical records available for review it appears that the echocardiograms, and on findings compatible with aortic valves sclerosis and mild to moderate aortic valve insufficiency. The patient has undergone subsequent transthoracic echocardiogram. The aortic valve findings are as noted above. 4. Thoracic aortic aneurysm-rupture status post repair The details of his thoracic aortic aneurysm rupture and surgery are as noted above. 5. Hypertension He has a history of hypertension. He will continue medical management with adjustment as needed. 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 He states that is why he has been on long-term anticoagulant therapy. He will be followed and reassessed as needed. 7. Pneumonia He has been diagnosed with underlying pulmonary disease. Based upon his resp iratory evaluation it appears that he has an underlying adenovirus. He will continue evaluation care by internal medicine and pulmonology/critical care medicine if needed. Overall, the present time, he will continue medical management. His medications can be adjusted as needed as he progresses through his pulmonary disease process. It does not appear he requires additional cardiac diagnostic studies either noninvasive or invasive at this time. He will need continued future outpatient cardiovascular follow-up. This note was generated using a voice recognition system and there may be incor rect words, spelling or punctuation that were not noted when reviewing the office note prior to saving.
[2019-02-11] MEDS: Metoprolol Tartrate 50 MG Tablet PO (22:13)
[2019-02-12] VITALS (32 sets, daily range): BP systolic 116–154; BP diastolic 50–101; PULSE 71–138; RESP 12–25; TEMP 36.6–37.2; O2SAT 92–100
[2019-02-12 04:45] LABS: Absolute Lymphocyte Count 0.51 X10^3/ul (0.83-4.51); Absolute Neutrophil Count 4.3 X10^3/uL (2.0-7.7); Basophil# 0.02 X10^3/uL; Basophil% 0.4 % (0-1); Eosinophil# 0.06 X10^3/uL; Eosinophils% 1.1 % (0-5); Hemoglobin 10.8 g/dl (13.0-16.5); Lymphocyte # 0.51 X10^3/ul (4.0); Lymphocyte % 9.8 % (19-41); Mean Corp Hgb Conc 32.7 g/gl (32-36); Mean Corpuscular Hgb 27.7 pg (27.0-32.0); Mean Corpuscular Volume 84.6 fL (80-94); Mean Platelet Vol. 10.7 fl (6.2-12.0); Monocyte# 0.33 X10^3/uL; Monocyte% 6.3 % (0-10); Neutrophil # 4.29 X10^3/uL (2.7-7.7); Platelet Count 134 K/mm3 (150-450); RBC Distribution Width CV 14.4 % (11.6-14.6); RBC Distribution Width SD 43.3 fl (35.1-43.9); White Blood Count 5.2 K/mm3 (4.4-11.0)
[2019-02-12 04:46] LABS: Differential Indicated SCAN CRITERIA MET; POSITIVE COUNT NO; POSITIVE DIFFERENTIAL YES; POSITIVE MORPHOLOGY YES
[2019-02-12 04:55] LABS: International Normalized Ratio 2.4; Prothrombin Time (Protime)PT. 26.5 SECONDS (11.7-14.9)
[2019-02-12 04:56] LABS: Anion Gap 8 (5-15); BUN 34 mg/dL (7-18); Calcium,Total 7.5 mg/dL (8.5-10.1); Chloride 103 mmol/L (98-107); Creatinine, Serum 1.26 mg/dL (0.70-1.30); EST Glomerular Filtration Rate 59 mL/min (>60); Est Glom Filt Rate - Afr Amer 71 mL/min (>60); Estimated Creatinine Clearance 34.72 ml/min; Glucose 116 mg/dL (74-106); Potassium 3.9 mmol/L (3.5-5.1); Sodium Level 138 mmol/L (136-145)
[2019-02-12 05:02] LABS: Differential Comment SCANNED
[2019-02-12] MEDS: 0.9% NaCl Peripheral Flush Adult/Peds IV ×3 (05:23→18:22)
[2019-02-12] MEDS: Levothyroxine 75 MCG Tablet PO (05:24)
--- NOTE | 2019-02-12 07:47 | PCM.PN.HOSP ---
Patient Problems: Active and Suspected Problems (Last Reviewed 04/23/18 @ 08:45 by Vanessa Knutson) Pneumonia (Acute) Subjective: The patient was on BiPAP last night. Heart rate was controlled but got tacky in the morning after about 4 AM. On BiPAP 30% FiO2, pulse ox 95%. Currently on nasal cannula. No fever. Vitals/I&O's: Vital Signs Temp Pulse Resp BP Pulse Ox 98.8 F 118 H 16 154/77 H 95 02/12/19 04:00 02/12/19 07:00 02/12/19 07:00 02/12/19 07:00 02/12/19 07:00 Oxygen Flow Rate (L/min) 4 Oxygen Delivery Method Bi-pap Weight: 134 lb 4.184 oz Body Mass Index (BMI) 23.8 Intake and Output for Last 24 Hours 02/10/19 02/11/19 02/12/19 23:59 23:59 23:59 Intake Total 1604 / 1604 2353 / 2353 212.5 / 212.5 Output Total 450 / 450 2049 / 2049 225 / 225 Balance 1154 / 1154 303 / 303 -12.5 / -12.5 General: Alert, Oriented x3, Cooperative HEENT: Atraumatic, PERRLA, EOMI, Normocephalic Neck: Supple, No JVD, Negative Carotid Bruits Lungs: Diminished, Rales - Coarse rales present in both lungs., Rhonchi Cardiovascular: Regular Rhythm, Normal S1, Normal S2, No murmurs, Tachycardic Abdomen: Bowel Sounds Present, Soft, Non Tender, Non-Distended Extremities: No edema, Capillary Refill Less than 3 Seconds, - - 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 02/09/19 19:55 Sputum, Expectorated/Coughed Gram Stain - Final 02/09/19 19:55 Sputum, Expectorated/Coughed Respiratory Culture - Preliminary Appears to be normal respiratory gifty. Further studies to follow. 02/09/19 17:32 Mucosa - Nasopharyngeal Respiratory Panel (PCR) - Final Adenovirus Laboratory Results 02/12/19 04:30: WBC 5.2, RBC 3.90 L, Hgb 10.8 L, Hct 33.0 L, MCV 84.6, MCH 27.7, MCHC 32.7, RDW 14.4, RDW Differential 43.3, Plt Count 134 L, MPV 10.7, Immature Gran % (Auto) 0.400, Neut % (Auto) 82.0 H, Lymph % (Auto) 9.8 L, [place] % (Auto) 6.3, Eos % (Auto) 1.1, Baso % (Auto) 0.4, Absolute Neuts (auto) 4.3, Absolute Lymphs (auto) 0.51 L, Total Counted Not Reportable, Differential Comment SCANNED 02/12/19 04:30: PT 26.5 H, INR 2.4 02/12/19 04:30: Sodium 138, Potassium 3.9, Chloride 103, Carbon Dioxide 27.0, Anion Gap 8, BUN 34 H, Creatinine 1.26, Estim Creat Clear Calc 34.72, Est GFR (MDRD) Af Amer 71, Est GFR (MDRD) Non-Af 59 L, BUN/Creatinine Ratio 27.0 H, Glucose 116 H, Calcium 7.5 L Current Medications Acetaminophen (Tylenol) 650 mg PO Q6H PRN PRN PRN Reason: PAIN Last Admin: 02/11/19 08:23 Dose: 650 mg Albuterol/Ipratropium (Duoneb) 3 ml INHALATION Q6H.RT SILVERIO Last Admin: 02/11/19 18:42 Dose: 3 ml Amlodipine Besylate (Norvasc) 10 mg PO DAILY SILVERIO Last Admin: 02/11/19 09:59 Dose: 10 mg Cholecalciferol (Vitamin D) 2,000 unit PO DAILYCM [facility] Last Admin: 02/11/19 09:59 Dose: 2,000 unit Dextrose (D50w Syringe) 0 gm IV X1 PRN; Protocol PRN Reason: Hypoglycemia Furosemide (Lasix) 40 mg IV BID@1000,1800 [facility] Last Admin: 02/11/19 18:11 Dose: 40 mg Glucagon () 1 mg IM .X1 PRN PRN Reason: Hypoglycemia Azithromycin 500 mg/ Dextrose 255 mls @ 250 mls/hr IV Q24 [facility] Last Admin: 02/11/19 11:13 Dose: 250 mls/hr Ceftriaxone Sodium (Rocephin) 1 gm in 50 mls @ 100 mls/hr IV Q12 [facility] Last Admin: 02/11/19 22:19 Dose: 100 mls/hr Amiodarone HCl 360 mg/ (Dextrose) 200 mls @ 16.67 mls/hr CONT INF .Q12H [facility] Last Admin: 02/12/19 00:18 Dose: 16.67 mls/hr Levothyroxine Sodium (Synthroid) 75 mcg PO DAILY@0600 [facility] Last Admin: 02/12/19 05:24 Dose: 75 mcg Metoprolol Tartrate (Lopressor (Beta Ilan)) 5 mg IV Q6H PRN Last Admin: 02/10/19 14:38 Dose: 5 mg Metoprolol Tartrate (Lopressor (Beta Ilan)) 50 mg PO BID [facility] Last Admin: 02/11/19 22:13 Dose: 50 mg Nitroglycerin (Nitrostat) 0.4 mg SUBLINGUAL .Q5-15M PRN PRN Reason: PAIN Potassium Chloride (K-Dur) 40 meq PO DAILY@0800 [facility] Last Admin: 02/11/19 09:59 Dose: 40 meq Ramipril (Altace) 10 mg PO BID [facility] Last Admin: 02/11/19 22:13 Dose: 10 mg Sodium Chloride () 5 - 15 ml IV UD PRN PRN Reason: SALINE FLUSH Last Admin: 02/12/19 05:23 Dose: 10 ml Warfarin Sodium (Coumadin (Pbkc)) 2 mg PO DAILY@1700 [facility] Last Admin: 02/11/19 18:12 Dose: 2 mg Medical Necessity - Tobacco Use Smoking Status: Former smoker Tobacco Use: Non-smoker Assessment/Plan All Active Problems (Last Reviewed 04/23/18 @ 08:45 by Vanessa Knutson) Thoracic aortic aneurysm, ruptured (Resolved) Pneumonia (Acute) Squamous cell carcinoma of skin (Acute) 78-year-old male admitted with a complaint of shortness of breath, cough and generalized malaise for 4 days prior to presentation. Initially was admitted in PCU but was transferred to ICU secondary to progressive worsening of shortness of breath, hypoxia and A. fib with heart rate up to 140s. ABG done showed pH of 7.43 with pCO2 of 31.9 and pO2 of 52. 1. Severe sepsis due to community acquired pneumonia No high-grade fever for about 48 hours Chest x-ray shows bilateral lower infiltrates, worse on the right respiratory panel was positive for adenovirus blood cultures negative for 48 hours and preliminary sputum cultures appears to be normal respiratory gifty May discontinue IV antibiotics breathing treatments with duonebs titrate oxygen to maintain sats>90%. BIPAP prn Discussed with the stove tender. 2. Acute hypoxic respiratory failure due to community acquired pneumonia and acute on chronic diastolic heart failure BiPAP overnight, on oxygen through nasal cannula Treat underlying disorder 3. Acute on chronic diastolic heart failure BNP 1194 IV lasix 40mg bid; fluid restriction to 1500cc every 24 hours 2D echo reported as EF 45% with moderately enlarged left atrium. Severe concentric LVH. BIPAP prn monitor intake and output 4. DIONI resolved. Cr down to 1.09 from 1.36 on admission. Hypokalemia corrected. Magnesium 1.9 on 02/10. 5. Lactic acidosis: resolved. Lactic acid now down to 1.7, from 2.6 on admission. 6. Hypothyroidism: on synthroid 7. Afib: on amiodarone and metoprolol. on coumadin 2mg daily. INR therapeutic. On Coumadin 8. Aortic valve replacement: INR is 2.7. coumadin. DVT prophylaxis: on coumadin. Code Visit Inpatient E&M: [id number] [facility] L3
--- NOTE | 2019-02-12 07:54 | PN_ITS ---
Patient Problems: Active and Suspected Problems (Last Reviewed 04/23/18 @ 08:45 by Vanessa Knutson) Pneumonia (Acute) Subjective: The patient was on BiPAP last night. Heart rate was controlled but got tacky in the morning after about 4 AM. On BiPAP 30% FiO2, pulse ox 95%. Currently on nasal cannula. No fever. Vitals/I&O's: Vital Signs Temp Pulse Resp BP Pulse Ox 98.8 F 118 H 16 154/77 H 95 02/12/19 04:00 02/12/19 07:00 02/12/19 07:00 02/12/19 07:00 02/12/19 07:00 Oxygen Flow Rate (L/min) 4 Oxygen Delivery Method Bi-pap Weight: 134 lb 4.184 oz Body Mass Index (BMI) 23.8 Intake and Output for Last 24 Hours 02/10/19 02/11/19 02/12/19 23:59 23:59 23:59 Intake Total 1604 / 1604 2353 / 2353 212.5 / 212.5 Output Total 450 / 450 2049 / 2049 225 / 225 Balance 1154 / 1154 303 / 303 -12.5 / -12.5 General: Alert, Oriented x3, Cooperative HEENT: Atraumatic, PERRLA, EOMI, Normocephalic Neck: Supple, No JVD, Negative Carotid Bruits Lungs: Diminished, Rales - Coarse rales present in both lungs., Rhonchi Cardiovascular: Regular Rhythm, Normal S1, Normal S2, No murmurs, Tachycardic Abdomen: Bowel Sounds Present, Soft, Non Tender, Non-Distended Extremities: No edema, Capillary Refill Less than 3 Seconds, - - 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 02/09/19 19:55 Sputum, Expectorated/Coughed Gram Stain - Final 02/09/19 19:55 Sputum, Expectorated/Coughed Respiratory Culture - Preliminary Appears to be normal respiratory gifty. Further studies to follow. 02/09/19 17:32 Mucosa - Nasopharyngeal Respiratory Panel (PCR) - Final Adenovirus Laboratory Results 02/12/19 04:30: WBC 5.2, RBC 3.90 L, Hgb 10.8 L, Hct 33.0 L, MCV 84.6, MCH 27.7, MCHC 32.7, RDW 14.4, RDW Differential 43.3, Plt Count 134 L, MPV 10.7, Immature Gran % (Auto) 0.400, Neut % (Auto) 82.0 H, Lymph % (Auto) 9.8 L, [place] % (Auto) 6.3, Eos % (Auto) 1.1, Baso % (Auto) 0.4, Absolute Neuts (auto) 4.3, Absolute Lymphs (auto) 0.51 L, Total Counted Not Reportable, Differential Comment SCANNED 02/12/19 04:30: PT 26.5 H, INR 2.4 02/12/19 04:30: Sodium 138, Potassium 3.9, Chloride 103, Carbon Dioxide 27.0, Anion Gap 8, BUN 34 H, Creatinine 1.26, Estim Creat Clear Calc 34.72, Est GFR (MDRD) Af Amer 71, Est GFR (MDRD) Non-Af 59 L, BUN/Creatinine Ratio 27.0 H, Glucose 116 H, Calcium 7.5 L Current Medications Acetaminophen (Tylenol) 650 mg PO Q6H PRN PRN PRN Reason: PAIN Last Admin: 02/11/19 08:23 Dose: 650 mg Albuterol/Ipratropium (Duoneb) 3 ml INHALATION Q6H.RT [facility]ILVERIO Last Admin: 02/11/19 18:42 Dose: 3 ml Amlodipine Besylate (Norvasc) 10 mg PO DAILY [facility] Last Admin: 02/11/19 09:59 Dose: 10 mg Cholecalciferol (Vitamin D) 2,000 unit PO DAILYCM [facility] Last Admin: 02/11/19 09:59 Dose: 2,000 unit Dextrose (D50w Syringe) 0 gm IV X1 PRN; Protocol PRN Reason: Hypoglycemia Furosemide (Lasix) 40 mg IV BID@1000,1800 [facility] Last Admin: 02/11/19 18:11 Dose: 40 mg Glucagon () 1 mg IM .X1 PRN PRN Reason: Hypoglycemia Azithromycin 500 mg/ Dextrose 255 mls @ 250 mls/hr IV Q24 [facility] Last Admin: 02/11/19 11:13 Dose: 250 mls/hr Ceftriaxone Sodium (Rocephin) 1 gm in 50 mls @ 100 mls/hr IV Q12 [facility] Last Admin: 02/11/19 22:19 Dose: 100 mls/hr Amiodarone HCl 360 mg/ (Dextrose) 200 mls @ 16.67 mls/hr CONT INF .Q12H [facility] Last Admin: 02/12/19 00:18 Dose: 16.67 mls/hr Levothyroxine Sodium (Synthroid) 75 mcg PO DAILY@0600 [facility] Last Admin: 02/12/19 05:24 Dose: 75 mcg Metoprolol Tartrate (Lopressor (Beta Ilan)) 5 mg IV Q6H PRN Last Admin: 02/10/19 14:38 Dose: 5 mg Metoprolol Tartrate (Lopressor (Beta Ilan)) 50 mg PO BID [facility] Last Admin: 02/11/19 22:13 Dose: 50 mg Nitroglycerin (Nitrostat) 0.4 mg SUBLINGUAL .Q5-15M PRN PRN Reason: PAIN Potassium Chloride (K-Dur) 40 meq PO DAILY@0800 [facility] Last Admin: 02/11/19 09:59 Dose: 40 meq Ramipril (Altace) 10 mg PO BID [facility] Last Admin: 02/11/19 22:13 Dose: 10 mg Sodium Chloride () 5 - 15 ml IV UD PRN PRN Reason: SALINE FLUSH Last Admin: 02/12/19 05:23 Dose: 10 ml Warfarin Sodium (Coumadin (Pbkc)) 2 mg PO DAILY@1700 [facility] Last Admin: 02/11/19 18:12 Dose: 2 mg Medical Necessity - Tobacco Use Smoking Status: Former smoker Tobacco Use: Non-smoker Assessment/Plan All Active Problems (Last Reviewed 04/23/18 @ 08:45 by Vanessa Knutson) Thoracic aortic aneurysm, ruptured (Resolved) Pneumonia (Acute) Squamous cell carcinoma of skin (Acute) 78-year-old male admitted with a complaint of shortness of breath, cough and generalized malaise for 4 days prior to presentation. Initially was admitted in PCU but was transferred to ICU secondary to progressive worsening of shortness of breath, hypoxia and A. fib with heart rate up to 140s. ABG done showed pH of 7.43 with pCO2 of 31.9 and pO2 of 52. 1. Severe sepsis due to community acquired pneumonia * No high-grade fever for about 48 hours * Chest x-ray shows bilateral lower infiltrates, worse on the right * respiratory panel was positive for adenovirus * blood cultures negative for 48 hours and preliminary sputum cultures appears to be normal respiratory gifty * May discontinue IV antibiotics * breathing treatments with duonebs * titrate oxygen to maintain sats>90%. BIPAP prn * Discussed with the inner layer scrubber tender. 2. Acute hypoxic respiratory failure due to community acquired pneumonia and acute on chronic diastolic heart failure * BiPAP overnight, on oxygen through nasal cannula * Treat underlying disorder 3. Acute on chronic diastolic heart failure * BNP 1194 * IV lasix 40mg bid; fluid restriction to 1500cc every 24 hours * 2D echo reported as EF 45% with moderately enlarged left atrium. Severe concentric LVH. * BIPAP prn * monitor intake and output 4. DIONI * resolved. Cr down to 1.09 from 1.36 on admission. * Hypokalemia corrected. Magnesium 1.9 on 02/10. 5. Lactic acidosis: resolved. Lactic acid now down to 1.7, from 2.6 on admission. 6. Hypothyroidism: on synthroid 7. Afib: on amiodarone and metoprolol. on coumadin 2mg daily. INR therapeutic. On Coumadin 8. Aortic valve replacement: INR is 2.7. coumadin. DVT prophylaxis: on coumadin. Code Visit Inpatient E&M: [id number] [place] [address]
--- NOTE | 2019-02-12 08:19 | PCM.PN.INT ---
Subjective: Patient did okay overnight. No acute issues were reported. Patient was in normal sinus rhythm for part of the evening, but at approximately 4 AM, went back into A. fib. Patient did have good response to diuretic therapy, but overall was even secondary to p.o. intake. No bleeding complications have been reported. Patient was compliant with BiPAP therapy overnight General: Alert, Oriented x3, Cooperative, No apparent distress, - - Appears stated age. No conversational dyspnea noted. HEENT: Atraumatic, PERRLA, EOMI, Normocephalic, - - Slight scleral injection without icterus Oral: Moist Mucosa, No Gingival or Mucosal Lesions/ Ulcerations Neck: Supple, No JVD, No Nodes, Trachea Midline Lungs: No rhonchi, No rales, Diminished, Wheezes, - - Symmetric expansion. No dullness to percussion. Cardiovascular: Normal S1, Normal S2, No murmurs, Irregular Rate, No rub noted, No Gallop, Tachycardic Abdomen: Bowel Sounds Present, Soft, Non Tender, Non-Distended, Obese Extremities: No clubbing, No cyanosis, Edema, - - Right hand amputation Skin: - - No significant change compared to previous Musculoskeletal: No Tenderness to Palpation of Joints or Extremities Lymphatic: No Cervical, Supraclavicular, or Inguinal Adenopathy Neurological: Cranial nerves II-XII grossly intact, Neuro grossly intact, Motor Exam 5/5 strength throughout Psych/Mental Status: Alert and oriented to time, place, person, mood and affect Vital Signs Temp Pulse Resp BP Pulse Ox 36.6 C 125 H 20 H 139/81 H 92 02/12/19 08:00 02/12/19 08:00 02/12/19 08:00 02/12/19 08:00 02/12/19 08:00 Oxygen Flow Rate (L/min) 4 Oxygen Delivery Method Nasal Cannula Weight: 60.9 kg Body Mass Index (BMI) 23.8 Intake and Output for Last 24 Hours 02/10/19 02/11/19 02/12/19 23:59 23:59 23:59 Intake Total 1604 / 1604 2353 / 2353 212.5 / 212.5 Output Total 450 / 450 0 / 0 225 / 225 Balance 1154 / 1154 303 / 303 -12.5 / -12.5 Labs (Last 48 Hours) 02/10/19 02/10/19 02/10/19 06:50 06:50 14:22 WBC RBC Hgb Hct MCV MCH MCHC RDW RDW Differential Plt Count MPV Immature Gran % (Auto) Neut % (Auto) Lymph % (Auto) [place] % (Auto) Eos % (Auto) Baso % (Auto) Absolute Neuts (auto) Absolute Lymphs (auto) Total Counted Not Reportable Differential Comment SCANNED PT INR Specimen Type ART Sample Site L Brachial pH 7.44 Bicarbonate Actual 21.4 L POC Total CO2 22 Base Excess -3 L O2 Saturation 88 L ABG pCO2 31.9 L ABG pO2 52 L Ramon Test POS O2 Delivery Device Nasal Can Liter Flow 6.0 Blood Gas Notified Whom [facility] Blood Gas Notified Time 1421 Sodium Potassium Chloride Carbon Dioxide Anion Gap BUN Creatinine Estim Creat Clear Calc Est GFR (MDRD) Af Amer Est GFR (MDRD) Non-Af BUN/Creatinine Ratio Glucose Calcium Magnesium Total Bilirubin Direct Bilirubin AST ALT Alkaline Phosphatase Troponin I B-Natriuretic Peptide 1194.4 H Total Protein Albumin Globulin Triglycerides Cholesterol LDL Cholesterol VLDL Cholesterol HDL Cholesterol TSH Free T4 02/10/19 02/10/19 02/10/19 14:23 16:35 19:30 WBC RBC Hgb Hct MCV MCH MCHC RDW RDW Differential Plt Count MPV Immature Gran % (Auto) Neut % (Auto) Lymph % (Auto) [place] % (Auto) Eos % (Auto) Baso % (Auto) Absolute Neuts (auto) Absolute Lymphs (auto) Total Counted Differential Comment PT INR Specimen Type Sample Site pH Bicarbonate Actual POC Total CO2 Base Excess O2 Saturation ABG pCO2 ABG pO2 Ramon Test O2 Delivery Device Liter Flow Blood Gas Notified Whom Blood Gas Notified Time Sodium Potassium Chloride Carbon Dioxide Anion Gap BUN Creatinine Estim Creat Clear Calc Est GFR (MDRD) Af Amer Est GFR (MDRD) Non-Af BUN/Creatinine Ratio Glucose Calcium Magnesium 1.9 Total Bilirubin Direct Bilirubin AST ALT Alkaline Phosphatase Troponin I 0.042 0.042 0.037 B-Natriuretic Peptide Total Protein Albumin Globulin Triglycerides Cholesterol LDL Cholesterol VLDL Cholesterol HDL Cholesterol TSH 1.14 Free T4 1.46 02/11/19 02/11/19 02/11/19 04:25 04:25 04:25 WBC 8.3 RBC 4.53 L Hgb 12.6 L Hct 38.8 L MCV 85.7 MCH 27.8 MCHC 32.5 RDW 14.5 RDW Differential 44.2 H Plt Count 164 MPV 10.9 Immature Gran % (Auto) 0.200 Neut % (Auto) 85.7 H Lymph % (Auto) 7.1 L [place] % (Auto) 6.8 Eos % (Auto) 0.1 Baso % (Auto) 0.1 Absolute Neuts (auto) 7.1 Absolute Lymphs (auto) 0.59 L Total Counted Not Reportable Differential Comment SCANNED PT 28.5 H INR 2.7 Specimen Type Sample Site pH Bicarbonate Actual POC Total CO2 Base Excess O2 Saturation ABG pCO2 ABG pO2 Ramon Test O2 Delivery Device Liter Flow Blood Gas Notified Whom Blood Gas Notified Time Sodium 143 Potassium 3.2 L Chloride 106 Carbon Dioxide 28.0 Anion Gap 9 BUN 29 H Creatinine 1.18 Estim Creat Clear Calc 37.08 Est GFR (MDRD) Af Amer 77 Est GFR (MDRD) Non-Af 64 BUN/Creatinine Ratio 24.6 H Glucose 126 H Calcium 7.7 L Magnesium Total Bilirubin 0.50 Direct Bilirubin 0.19 AST 28 ALT 29 Alkaline Phosphatase 68 Troponin I B-Natriuretic Peptide Total Protein 6.2 L Albumin 2.4 L Globulin 3.8 Triglycerides 103 Cholesterol 96 LDL Cholesterol 46 VLDL Cholesterol 21 HDL Cholesterol 29 L TSH Free T4 02/12/19 02/12/19 02/12/19 04:30 04:30 04:30 WBC 5.2 RBC 3.90 L Hgb 10.8 L Hct 33.0 L MCV 84.6 MCH 27.7 MCHC 32.7 RDW 14.4 RDW Differential 43.3 Plt Count 134 L MPV 10.7 Immature Gran % (Auto) 0.400 Neut % (Auto) 82.0 H Lymph % (Auto) 9.8 L [place] % (Auto) 6.3 Eos % (Auto) 1.1 Baso % (Auto) 0.4 Absolute Neuts (auto) 4.3 Absolute Lymphs (auto) 0.51 L Total Counted Not Reportable Differential Comment SCANNED PT 26.5 H INR 2.4 Specimen Type Sample Site pH Bicarbonate Actual POC Total CO2 Base Excess O2 Saturation ABG pCO2 ABG pO2 Ramon Test O2 Delivery Device Liter Flow Blood Gas Notified Whom Blood Gas Notified Time Sodium 138 Potassium 3.9 Chloride 103 Carbon Dioxide 27.0 Anion Gap 8 BUN 34 H Creatinine 1.26 Estim Creat Clear Calc 34.72 Est GFR (MDRD) Af Amer 71 Est GFR (MDRD) Non-Af 59 L BUN/Creatinine Ratio 27.0 H Glucose 116 H Calcium 7.5 L Magnesium Total Bilirubin Direct Bilirubin AST ALT Alkaline Phosphatase Troponin I B-Natriuretic Peptide Total Protein Albumin Globulin Triglycerides Cholesterol LDL Cholesterol VLDL Cholesterol HDL Cholesterol TSH Free T4 Microbiology 02/09/19 19:55 Sputum, Expectorated/Coughed Gram Stain - Final 02/09/19 19:55 Sputum, Expectorated/Coughed Respiratory Culture - Final Mixed normal respiratory gifty. No Haemophilus, Streptococcus pneumoniae, beta-hemolytic Streptococcus or Staphylococcus aureus isolated. 02/09/19 13:10 Blood Culture (Wb) - Anticubital Right Blood Culture - Preliminary No growth in 48 hours. 02/09/19 17:32 Mucosa - Nasopharyngeal Respiratory Panel (PCR) - Final Adenovirus Clinical Impression(s) from Imaging Studies Chest X-Ray 02/11/19 08:05 IMPRESSION: Stable examination with bibasilar infiltrates more prominent on the right side. Electronically Signed: Milan Cao, at 14:41 EDT , Service support , Medical Necessity - Tobacco Use Smoking Status: Former smoker Tobacco Use: Non-smoker Assessment/Plan All Active Problems (Last Reviewed 04/23/18 @ 08:45 by Vanessa Knutson) Thoracic aortic aneurysm, ruptured (Resolved) Pneumonia (Acute) Squamous cell carcinoma of skin (Acute) RECOMMENDATIONS: 1. Likely okay to discontinue antibiotics once blood culture negative 2. Continue diuresis with a goal of -500 mL to 1 L 3. Rate control/amiodarone per cardiology recommendations 4. Wean oxygen as tolerated, BiPAP rescue as indicated 5. Aggressive potassium repletion as indicated IMPRESSIONS: 1. Acute hypoxic respiratory failure secondary to adenoviral pneumonia and acute on chronic congestive heart failure Clinical suspicion for exacerbation of diastolic congestive heart failure secondary to A. fib with RVR. Patient did have an elevated BNP on presentation and has responded well to IV Lasix. Echocardiogram has been ordered for evaluation of function. Patient can continue to use BiPAP as necessary during the day. Would continue with BiPAP overnight. Rate control per cardiology. Patient currently on Cardizem drip and amiodarone. No indication for emergent cardioversion. Will be more aggressive about diuretic therapy with a goal of -500mL to -1 L by tomorrow. 2. Acute on chronic diastolic congestive heart failure secondary to A. fib with RVR Patient reportedly does have a history of atrial fibrillation in the past and is on Coumadin therapy. Patient also had an aortic valve replacement. Await echocardiogram to see atrial size. Patient may need evaluation for ablation. Cardiology is currently consulted. 3. Acute kidney injury/hypokalemia Patient with elevation of creatinine to 1.36 on presentation. Patient has responded well to interventions. Decreased potassium likely secondary to diuretic therapy. Aggressive repletion will be ordered as indicated. We will continue to monitor this and magnesium intermittently. 4. Severe sepsis secondary to probable adenovirus Patient has come back positive for adenovirus, which may account for positive sirs criteria. However, continuation of IV antibiotics would be reasonable until blood cultures are negative as patient does have extensive infiltrates on chest x-ray. If blood cultures are negative, discontinuation of antibiotics would be reasonable. Sputum is only growing normal gifty at this time. 5. Hypothyroidism/history of aortic valve replacement/advanced age/history of tobacco use/history of squamous cell carcinoma of the skin Complicates care, management, recovery and prognosis. Monitor INR on a daily basis given patient's concomitant antibiotics. Code Visit Inpatient E&M: [id number] [facility] L3
[2019-02-12] MEDS: amLODIPine 10 MG Tablet PO (09:24)
[2019-02-12] MEDS: Metoprolol Tartrate 100 MG Tablet PO ×2 (09:24→21:28)
[2019-02-12] MEDS: Furosemide 40 MG/4 ML Vial IV ×2 (09:24→18:22)
[2019-02-12] MEDS: Ramipril 10 MG Capsule PO ×2 (09:24→21:28)
--- NOTE | 2019-02-12 09:59 | PCM.PN.CARD ---
Subjectve: The patient has been up out of bed in the chair. He states he is feeling better overall. He denies any acute chest discomfort, worsening shortness of breath/dyspnea, or ongoing palpitations. Objective: Vital Signs Temp Pulse Resp BP Pulse Ox 97.8 F 123 H 21 H 131/101 H 95 02/12/19 08:00 02/12/19 09:24 02/12/19 09:00 02/12/19 09:24 02/12/19 09:00 Oxygen Flow Rate (L/min) 4 Oxygen Delivery Method Nasal Cannula Weight: 134 lb 4.184 oz Body Mass Index (BMI) 23.8 Intake and Output for Last 24 Hours 02/10/19 02/11/19 02/12/19 23:59 23:59 23:59 Intake Total 1604 / 1604 2353 / 2353 212.5 / 212.5 Output Total 450 / 450 2049 / 2049 225 / 225 Balance 1154 / 1154 303 / 303 -12.5 / -12.5 General: Awake, Alert, Oriented x 3, Cooperative HEENT: Atraumatic, Normocephalic, PERRL Oral: Moist Mucosa Neck: Supple, Good ROM, No JVD Lungs: Rales - Right Base Cardiovascular: Irregular Rhythm, Normal S1, Normal S2 Abdomen: Bowel Sounds Present, Soft, Non Tender Extremities: Trace RLE Edema, Trace LLE Edema Psych/Mental Status: Appropriate 02/12/19 04:30: WBC 5.2, RBC 3.90 L, Hgb 10.8 L, Hct 33.0 L, MCV 84.6, MCH 27.7, MCHC 32.7, RDW 14.4, RDW Differential 43.3, Plt Count 134 L, MPV 10.7, Immature Gran % (Auto) 0.400, Neut % (Auto) 82.0 H, Lymph % (Auto) 9.8 L, [place] % (Auto) 6.3, Eos % (Auto) 1.1, Baso % (Auto) 0.4, Absolute Neuts (auto) 4.3, Total Counted Not Reportable 02/12/19 04:30: PT 26.5 H, INR 2.4 02/12/19 04:30: Sodium 138, Potassium 3.9, Chloride 103, Carbon Dioxide 27.0, Anion Gap 8, BUN 34 H, Creatinine 1.26, Est GFR (MDRD) Af Amer 71, Est GFR (MDRD) Non-Af 59 L, BUN/Creatinine Ratio 27.0 H, Glucose 116 H, Calcium 7.5 L Rhythm: Atrial fibrillation Medical Necessity - Tobacco Use Smoking Status: Former smoker Tobacco Use: Non-smoker Assessment/Plan 1. Atrial fibrillation with rapid ventricular response The patient does have a history, based upon his [facility] medical records, postoperative atrial fibrillation treated with anticoagulation therapy and antiarrhythmic therapy with amiodarone. The patient did convert to sinus rhythm for a period of time. He has now returned to atrial fibrillation with rapid ventricular response. He will continue medical management. This will include increasing his beta-zahida dose to assist with rate control. He will continue his IV amiodarone therapy. He is on anticoagulant therapy. Depending upon his clinical course he may need to be considered for future attempt at regaining sinus rhythm with synchronized biphasic DC cardioversion. However this may be challenging while he is noted to have his underlying pulmonary disease process and is noted to be having episodes of paroxysmal atrial fibrillation. 2. CAD status post PCI At the present time he appears to be without evidence of acute coronary syndrome. He will continue medical management and follow-up as deemed appropriate. 3. Thoracic aortic aneurysm-rupture status post repair The details of his thoracic aortic aneurysm rupture and surgery are as previously noted. 4. Hypertension He has a history of hypertension. He will continue medical management with adjustment as needed. 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 He states that is why he has been on long-term anticoagulant therapy. He will be followed and reassessed as needed. 6. Pneumonia He has been diagnosed with underlying pulmonary disease. Based upon his respiratory evaluation it appears that he has an underlying adenovirus. He will continue evaluation care by internal medicine and pulmonology/critical care medicine if needed. This note was generated using a voice recognition system and there may be incorrect words, spelling or punctuation that were not noted when reviewing the office note prior to saving.
--- NOTE | 2019-02-12 10:02 | PN.CARD_ITS ---
Subjectve: The patient has been up out of bed in the chair. He states he is feeling better overall. He denies any acute chest discomfort, worsening shortness of breath/dyspnea, or ongoing palpitations. Objective: Vital Signs Temp Pulse Resp BP Pulse Ox 97.8 F 123 H 21 H 131/101 H 95 02/12/19 08:00 02/12/19 09:24 02/12/19 09:00 02/12/19 09:24 02/12/19 09:00 Oxygen Flow Rate (L/min) 4 Oxygen Delivery Method Nasal Cannula Weight: 134 lb 4.184 oz Body Mass Index (BMI) 23.8 Intake and Output for Last 24 Hours 02/10/19 02/11/19 02/12/19 23:59 23:59 23:59 Intake Total 1604 / 1604 2353 / 2353 212.5 / 212.5 Output Total 450 / 450 2049 / 2049 225 / 225 Balance 1154 / 1154 303 / 303 -12.5 / -12.5 General: Awake, Alert, Oriented x 3, Cooperative HEENT: Atraumatic, Normocephalic, PERRL Oral: Moist Mucosa Neck: Supple, Good ROM, No JVD Lungs: Rales - Right Base Cardiovascular: Irregular Rhythm, Normal S1, Normal S2 Abdomen: Bowel Sounds Present, Soft, Non Tender Extremities: Trace RLE Edema, Trace LLE Edema Psych/Mental Status: Appropriate 02/12/19 04:30: WBC 5.2, RBC 3.90 L, Hgb 10.8 L, Hct 33.0 L, MCV 84.6, MCH 27.7, MCHC 32.7, RDW 14.4, RDW Differential 43.3, Plt Count 134 L, MPV 10.7, Immature Gran % (Auto) 0.400, Neut % (Auto) 82.0 H, Lymph % (Auto) 9.8 L, [place] % (Auto) 6.3, Eos % (Auto) 1.1, Baso % (Auto) 0.4, Absolute Neuts (auto) 4.3, Total Counted Not Reportable 02/12/19 04:30: PT 26.5 H, INR 2.4 02/12/19 04:30: Sodium 138, Potassium 3.9, Chloride 103, Carbon Dioxide 27.0, Anion Gap 8, BUN 34 H, Creatinine 1.26, Est GFR (MDRD) Af Amer 71, Est GFR (MDRD) Non-Af 59 L, BUN/Creatinine Ratio 27.0 H, Glucose 116 H, Calcium 7.5 L Rhythm: Atrial fibrillation Medical Necessity - Tobacco Use Smoking Status: Former smoker Tobacco Use: Non-smoker Assessment/Plan 1. Atrial fibrillation with rapid ventricular response The patient does have a history, based upon his [facility] medical records, postoperative atrial fibrillation treated with anticoagulation therapy and antiarrhythmic therapy with amiodarone. The patient did convert to sinus rhythm for a period of time. He has now returned to atrial fibrillation with rapid ventricular response. He will continue medical management. This will include increasing his beta- zahida dose to assist with rate control. He will continue his IV amiodarone therapy. He is on anticoagulant therapy. Depending upon his clinical course he may need to be considered for future attempt at regaining sinus rhythm with synchronized biphasic DC cardioversion. However this may be challenging while he is noted to have his underlying pulmonary disease process and is noted to be having episodes of paroxysmal atrial fibrillation. 2. CAD status post PCI At the present time he appears to be without evidence of acute coronary syndrome. He will continue medical management and follow-up as deemed appropriate. 3. Thoracic aortic aneurysm-rupture status post repair The details of his thoracic aortic aneurysm rupture and surgery are as previously noted. 4. Hypertension He has a history of hypertension. He will continue medical management with adjustment as needed. 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 He states that is why he has been on long-term anticoagulant therapy. He will be followed and reassessed as needed. 6. Pneumonia He has been diagnosed with underlying pulmonary disease. Based upon his respiratory evaluation it appears that he has an underlying adenovirus. He will continue evaluation care by internal medicine and pulmonology/critical care [facility] if needed. This note was generated using a voice recognition system and there may be incorrect words, spelling or punctuation that were not noted when reviewing the office note prior to saving.
[2019-02-12] MEDS: Ipratropium/Albuterol Sulfate 3 ML AMPUL.NEB INHALATION ×2 (13:39→19:27)
--- NOTE | 2019-02-12 14:10 | CASEMGMT ---
Per RN CM patient and family would like [facility] TCU if patient cannot go home at d/c. SW called Rosalia and had her put patient's name on the list. The next available bed will be Monday. ELVIN to follow for d/c planning. Jayda MOSER MSW
--- NOTE | 2019-02-12 14:11 | CASEMGMT ---
RN Note: Spoke with pt, and son in room. Discussed PT/OT recommendations for further therapy. Agreeable to TCU only if SNF needed. Discussed bed availability and second choices of area facilities. is only agreeable to TCU. If Pt is able to return home with home health, [facility] is preference. -ELVIN Wood updated and will make TCU referral. Ela HUYNHN RN AC
[2019-02-13] VITALS (24 sets, daily range): BP systolic 99–166; BP diastolic 61–82; PULSE 84–117; RESP 12–25; TEMP 36.3–36.9; O2SAT 92–98
[2019-02-13] MEDS: Levothyroxine 75 MCG Tablet PO (05:10)
[2019-02-13 05:27] LABS: International Normalized Ratio 1.9; Prothrombin Time (Protime)PT. 21.7 SECONDS (11.7-14.9)
[2019-02-13 05:32] LABS: Absolute Neutrophil Count 3.6 X10^3/uL (2.0-7.7); Basophil# 0.03 X10^3/uL; Basophil% 0.6 % (0-1); Eosinophil# 0.09 X10^3/uL; Eosinophils% 1.9 % (0-5); Hematocrit 35.1 % (40-54); Hemoglobin 11.1 g/dl (13.0-16.5); Lymphocyte % 12.4 % (19-41); Mean Corp Hgb Conc 31.6 g/gl (32-36); Mean Corpuscular Hgb 26.9 pg (27.0-32.0); Mean Corpuscular Volume 85.2 fL (80-94); Mean Platelet Vol. 10.8 fl (6.2-12.0); Monocyte# 0.44 X10^3/uL; Monocyte% 9.1 % (0-10); Neutrophil # 3.63 X10^3/uL (2.7-7.7); Neutrophil % 75.4 % (47-70); Platelet Count 142 K/mm3 (150-450); RBC Distribution Width CV 14.7 % (11.6-14.6); RBC Distribution Width SD 44.6 fl (35.1-43.9); Red Blood Count 4.12 M/mm3 (4.6-6.2); White Blood Count 4.8 K/mm3 (4.4-11.0)
[2019-02-13 05:34] LABS: Differential Indicated SCAN CRITERIA MET; POSITIVE COUNT NO; POSITIVE DIFFERENTIAL YES; POSITIVE MORPHOLOGY YES
[2019-02-13 05:39] LABS: Anion Gap 6 (5-15); BUN 32 mg/dL (7-18); BUN/Creat Ratio 28.1 RATIO (10-20); Calcium,Total 7.7 mg/dL (8.5-10.1); Chloride 104 mmol/L (98-107); Creatinine, Serum 1.14 mg/dL (0.70-1.30); EST Glomerular Filtration Rate 66 mL/min (>60); Est Glom Filt Rate - Afr Amer 80 mL/min (>60); Estimated Creatinine Clearance 38.38 ml/min; Glucose 155 mg/dL (74-106); Magnesium 2.3 mg/dL (1.6-2.6); Phosphorus 1.9 mg/dL (2.5-4.9); Sodium Level 139 mmol/L (136-145)
[2019-02-13 06:35] LABS: Differential Comment SCANNED
[2019-02-13] MEDS: Ipratropium/Albuterol Sulfate 3 ML AMPUL.NEB INHALATION ×3 (06:46→19:58)
--- NOTE | 2019-02-13 07:19 | PN_ITS ---
Subjective: Patient did well overnight. No hemodynamic instability is noted. Patient has been on 3 L nasal cannula for most of the evening. Patient has remained in A. fib, but rate is much controlled compared to previous. No bleeding complications have been reported. General: Alert, Oriented x3, Cooperative, No apparent distress, - - No conversational dyspnea appreciated. HEENT: Atraumatic, PERRLA, EOMI, Normocephalic, - - No scleral icterus or injection noted. Oral: Moist Mucosa, No Gingival or Mucosal Lesions/ Ulcerations Neck: Supple, No JVD, No Nodes, Trachea Midline Lungs: No rhonchi, No rales, Diminished, Wheezes - Much improved compared to previous., - - Symmetric expansion. Cardiovascular: Normal S1, Normal S2, No murmurs, Irregular Rate, No rub noted, No Gallop Abdomen: Bowel Sounds Present, Soft, Non Tender, Non-Distended Extremities: No clubbing, No cyanosis, Edema - Improved, - - Right hand amputation Skin: - - No change from previous Musculoskeletal: No Tenderness to Palpation of Joints or Extremities Lymphatic: No Cervical, Supraclavicular, or Inguinal Adenopathy Neurological: Cranial nerves II-XII grossly intact, Neuro grossly intact, Motor Exam 5/5 strength throughout Psych/Mental Status: Alert and oriented to time, place, person, mood and affect Vital Signs Temp Pulse Resp BP Pulse Ox 36.7 C 103 H 20 H 129/68 H 94 02/13/19 04:00 02/13/19 06:47 02/13/19 06:47 02/13/19 06:00 02/13/19 06:47 Oxygen Flow Rate (L/min) 3 Oxygen Delivery Method Nasal Cannula Weight: 59.6 kg Body Mass Index (BMI) 23.8 Intake and Output for Last 24 Hours 02/11/19 02/12/19 02/13/19 23:59 23:59 23:59 Intake Total 2353 / 2353 927.5 / 927.5 355.3 / 355.3 Output Total 2049 / 2049 1225 / 1225 1000 / 1000 Balance 303 / 303 -297.5 / -297.5 -644.7 / -644.7 Labs (Last 48 Hours) 02/12/19 02/12/19 02/12/19 04:30 04:30 04:30 WBC 5.2 RBC 3.90 L Hgb 10.8 L Hct 33.0 L MCV 84.6 MCH 27.7 MCHC 32.7 RDW 14.4 RDW Differential 43.3 Plt Count 134 L MPV 10.7 Immature Gran % (Auto) 0.400 Neut % (Auto) 82.0 H Lymph % (Auto) 9.8 L [place] % (Auto) 6.3 Eos % (Auto) 1.1 Baso % (Auto) 0.4 Absolute Neuts (auto) 4.3 Absolute Lymphs (auto) 0.51 L Total Counted Not Reportable Differential Comment SCANNED PT 26.5 H INR 2.4 Sodium 138 Potassium 3.9 Chloride 103 Carbon Dioxide 27.0 Anion Gap 8 BUN 34 H Creatinine 1.26 Estim Creat Clear Calc 34.72 Est GFR (MDRD) Af Amer 71 Est GFR (MDRD) Non-Af 59 L BUN/Creatinine Ratio 27.0 H Glucose 116 H Calcium 7.5 L Phosphorus Magnesium 02/13/19 02/13/19 02/13/19 05:00 05:00 05:00 WBC 4.8 RBC 4.12 L Hgb 11.1 L Hct 35.1 L MCV 85.2 MCH 26.9 L MCHC 31.6 L RDW 14.7 H RDW Differential 44.6 H Plt Count 142 L MPV 10.8 Immature Gran % (Auto) 0.600 Neut % (Auto) 75.4 H Lymph % (Auto) 12.4 L [place] % (Auto) 9.1 Eos % (Auto) 1.9 Baso % (Auto) 0.6 Absolute Neuts (auto) 3.6 Absolute Lymphs (auto) 0.60 L Total Counted Not Reportable Differential Comment SCANNED PT 21.7 H INR 1.9 Sodium 139 Potassium 4.0 Chloride 104 Carbon Dioxide 29.0 Anion Gap 6 BUN 32 H Creatinine 1.14 Estim Creat Clear Calc 38.38 Est GFR (MDRD) Af Amer 80 Est GFR (MDRD) Non-Af 66 BUN/Creatinine Ratio 28.1 H Glucose 155 H Calcium 7.7 L Phosphorus 1.9 L Magnesium 2.3 Microbiology 02/09/19 14:15 Blood Culture (Wb) - Left Hand Blood Culture - Preliminary No growth in 48 hours. 02/09/19 19:55 Sputum, Expectorated/Coughed Gram Stain - Final 02/09/19 19:55 Sputum, Expectorated/Coughed Respiratory Culture - Final Mixed normal respiratory gifty. No Haemophilus, Streptococcus pneumoniae, beta-hemolytic Streptococcus or Staphylococcus aureus isolated. 02/09/19 13:10 Blood Culture (Wb) - Anticubital Right Blood Culture - Preliminary No growth in 48 hours. Medical Necessity - Tobacco Use Smoking Status: Former smoker Tobacco Use: Non-smoker Assessment/Plan All Active Problems (Last Reviewed 04/23/18 @ 08:45 by Vanessa Knutson) Thoracic aortic aneurysm, ruptured (Resolved) Pneumonia (Acute) Squamous cell carcinoma of skin (Acute) RECOMMENDATIONS: 1. Rate control per cardiology 2. Continue diuresis with a goal of -500 mL to 1 L 3. Possibly transition to p.o. amiodarone later today 4. Wean oxygen as tolerated, BiPAP overnight 5. Okay to leave the intensive care unit from my perspective IMPRESSIONS: 1. Acute hypoxic respiratory failure secondary to adenoviral pneumonia and acute on chronic congestive heart failure Clinical suspicion for exacerbation of diastolic congestive heart failure secondary to A. fib with RVR. Patient did have an elevated BNP on presentation and has responded well to IV Lasix. Echocardiogram noted. Patient can use BiPAP as necessary during the day. Would continue with BiPAP overnight. Rate control per cardiology. Defer to cardiology if patient can be transitioned to p.o. amiodarone. No indication for emergent cardioversion. Will be more aggressive about diuretic therapy with a goal of -500mL to -1 L by tomorrow. 2. Acute on chronic diastolic congestive heart failure secondary to A. fib with RVR Patient reportedly does have a history of atrial fibrillation in the past and is on Coumadin therapy. Patient also had an aortic valve replacement. Patient may require increased dose of Coumadin given cessation of antibiotics. Patient may need evaluation for ablation. Cardiology is currently consulted. 3. Acute kidney injury/hypokalemia Patient with elevation of creatinine to 1.36 on presentation. Patient has responded well to interventions. Decreased potassium likely secondary to diuretic therapy. Aggressive repletion will be ordered as indicated. We will continue to monitor this and magnesium intermittently. 4. Severe sepsis secondary to probable adenovirus Patient has come back positive for adenovirus, which may account for positive sirs criteria. Cultures have been negative to this point. Antibiotics have been discontinued. Patient does not appear to have increased complications. We will continue to monitor. 5. Hypothyroidism/history of aortic valve replacement/advanced age/history of tobacco use/history of squamous cell carcinoma of the skin Complicates care, management, recovery and prognosis. Monitor INR on a daily basis. Code Visit Inpatient E&M: 91962 Subs Hosp L3
[2019-02-13] MEDS: Ramipril 10 MG Capsule PO ×2 (07:56→21:45)
[2019-02-13] MEDS: amLODIPine 10 MG Tablet PO (07:56)
[2019-02-13] MEDS: Metoprolol Tartrate 100 MG Tablet PO ×2 (07:56→21:45)
[2019-02-13] MEDS: Furosemide 40 MG/4 ML Vial IV (07:57)
--- NOTE | 2019-02-13 09:45 | PN.CARD_ITS ---
Subjectve: The patient states he is feeling better overall. However he notes when he is up and ambulating he still gets short of breath and dyspneic. Objective: Vital Signs Temp Pulse Resp BP Pulse Ox 98.0 F 117 H 20 H 151/65 H 97 02/13/19 04:00 02/13/19 07:56 02/13/19 06:47 02/13/19 07:56 02/13/19 08:00 Oxygen Flow Rate (L/min) 3 Oxygen Delivery Method Nasal Cannula Weight: 131 lb 6.328 oz Body Mass Index (BMI) 23.8 Intake and Output for Last 24 Hours 02/11/19 02/12/19 02/13/19 23:59 23:59 23:59 Intake Total 2353 / 2353 927.5 / 927.5 355.3 / 355.3 Output Total 2049 / 2049 1225 / 1225 1000 / 1000 Balance 303 / 303 -297.5 / -297.5 -644.7 / -644.7 General: Awake, Alert, Oriented x 3, Cooperative, No Acute Distress HEENT: Atraumatic, Normocephalic, PERRL, EOMI, Sclera Non Icteric Oral: Moist Mucosa Neck: Supple, Good ROM, No JVD Lungs: Rhonchi Cardiovascular: Irregular Rhythm, Normal S1, Normal S2 Abdomen: Bowel Sounds Present, Soft, Non Tender Extremities: No edema 02/13/19 05:00: PT 21.7 H, INR 1.9 02/13/19 05:00: WBC 4.8, RBC 4.12 L, Hgb 11.1 L, Hct 35.1 L, MCV 85.2, MCH 26.9 L, MCHC 31.6 L, RDW 14.7 H, RDW Differential 44.6 H, Plt Count 142 L, MPV 10.8, Immature Gran % (Auto) 0.600, Neut % (Auto) 75.4 H, Lymph % (Auto) 12.4 L, [place] % (Auto) 9.1, Eos % (Auto) 1.9, Baso % (Auto) 0.6, Absolute Neuts (auto) 3.6, Total Counted Not Reportable 02/13/19 05:00: Sodium 139, Potassium 4.0, Chloride 104, Carbon Dioxide 29.0, Anion Gap 6, BUN 32 H, Creatinine 1.14, Est GFR (MDRD) Af Amer 80, Est GFR (MDRD) Non-Af 66, BUN/Creatinine Ratio 28.1 H, Glucose 155 H, Calcium 7.7 L, Phosphorus 1.9 L, Magnesium 2.3 Rhythm: Atrial fibrillation Medical Necessity - Tobacco Use Smoking Status: Former smoker Tobacco Use: Non-smoker Assessment/Plan 1. Atrial fibrillation with rapid ventricular response The patient does have a history, based upon his [facility] medical records, post operative atrial fibrillation treated with anticoagulation therapy and antiarrhythmic therapy with amiodarone. The patient did convert to sinus rhythm for a period of time. He has now returned to atrial fibrillation with rapid ventricular response. He will continue medical management. This will include increasing his beta- zahida dose to assist with rate control. As his rate may be coming under better control he will be transitioned from IV amiodarone to oral amiodarone therapy. Depending upon his clinical course he may need to be considered for future attempt at regaining sinus rhythm with synchronized biphasic DC cardioversion. However this may be challenging while he is noted to have his underlying pulmonary disease process and is noted to be having episodes of paroxysmal atria l fibrillation. 2. CAD status post PCI At the present time he appears to be without evidence of acute coronary syndrome. He will continue medical management and follow-up as deemed appropriate. 3. Thoracic aortic aneurysm-rupture status post repair The details of his thoracic aortic aneurysm rupture and surgery are as previously noted. 4. Hypertension He has a history of hypertension. He will continue medical management with adjustment as needed. 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 He states that is why he has been on long-term anticoagulant therapy. He will be followed and reassessed as needed. 6. Pneumonia He has been diagnosed with underlying pulmonary disease. Based upon his respiratory evaluation it appears that he has an underlying adenovirus. He will continue evaluation care by internal medicine and pulmonology/critical care medicine if needed. This note was generated using a voice recognition system and there may be incorrect words, spelling or punctuation that were not noted when reviewing the office note prior to saving.
--- NOTE | 2019-02-13 14:19 | CASEMGMT ---
Addendum entered by Jayda Flowers 02/13/19 14:47: SW let patient and his daughter know about bed in TCU if he is here until Monday. Plan: [facility] TCU Jayda ALEGRE Original Note: Spoke with Rosalia and the next available bed in TCU is Monday. Jayda ALEGRE
[2019-02-13] MEDS: Amiodarone 200 MG Tablet PO ×2 (14:20→21:45)
[2019-02-13] MEDS: 0.9% NaCl Peripheral Flush Adult/Peds IV (14:20)
--- NOTE | 2019-02-13 15:40 | NURSING ---
report called to [employer]
--- NOTE | 2019-02-13 16:04 | NURSING ---
to PCU 115 per WC, ICU staff in attendance
[2019-02-13] MEDS: Furosemide 40 MG Tablet PO (16:39)
--- NOTE | 2019-02-13 19:00 | PCM.PROGNOTE ---
Patient Problems: Active and Suspected Problems (Last Reviewed 04/23/18 @ 08:45 by Vanessa Knutson) Pneumonia (Acute) Subjective: Patient was seen and examined today, he was transferred from the ICU to PCU for ongoing care. 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 Patient is currently being treated for diastolic congestive heart failure, community acquired pneumonia, and adenovirus upper respiratory infection. Patient is currently on room air. - Physical Exam General: Alert, Oriented x3, Cooperative, No apparent distress, Well developed, Well nourished HEENT: Atraumatic, PERRLA, EOMI, Normocephalic Oral: Moist Mucosa Neck: Supple, No JVD, Negative Carotid Bruits, Trachea Midline, Thyroid Normal Size and Texture Lungs: Normal air movement, Wheezes - Expiratory wheezes are noted to be scattered bilaterally Cardiovascular: No murmurs, PMI Normal, Irregular Rate, No rub noted Abdomen: Bowel Sounds Present, Soft, Non Tender, Non-Distended Extremities: No clubbing, No cyanosis, No edema, Capillary Refill Less than 3 Seconds Skin: No rashes, No breakdown Musculoskeletal: No Tenderness to Palpation of Joints or Extremities Neurological: Cranial nerves II-XII grossly intact, Neuro grossly intact, Sensory exam intact to light touch and pain, Coordination normal Psych/Mental Status: Normal Affect, Appropriate, Alert and oriented to time, place, person, mood and affect Vital Signs Temp Pulse Resp BP Pulse Ox 98.2 F 104 H 20 H 126/68 H 94 02/13/19 14:00 02/13/19 16:10 02/13/19 14:00 02/13/19 14:00 02/13/19 14:00 Oxygen Flow Rate (L/min) 0 Oxygen Delivery Method Room Air Weight: 59.6 kg Body Mass Index (BMI) 23.8 Intake and Output for Last 24 Hours 02/11/19 02/12/19 02/13/19 23:59 23:59 23:59 Intake Total 2353 / 2353 927.5 / 927.5 1036.3 / 1036.3 Output Total 2049 / 2049 1225 / 1225 1725 / 1725 Balance 303 / 303 -297.5 / -297.5 -688.7 / -688.7 Microbiology Past 72 Hours 02/09/19 14:15 Blood Culture - Preliminary Blood Culture (Wb) - Left Hand No growth in 48 hours. 02/09/19 19:55 Gram Stain - Final Sputum, Expectorated/Coughed Respiratory Culture - Final Mixed normal respiratory gifty. No Haemophilus, Streptococcus pneumoniae, beta-hemolytic Streptococcus or Staphylococcus aureus isolated. 02/09/19 13:10 Blood Culture - Preliminary Blood Culture (Wb) - Anticubital Right No growth in 48 hours. Laboratory Tests Past 24 Hrs 02/13/19 02/13/19 02/13/19 05:00 05:00 05:00 WBC 4.8 RBC 4.12 L Hgb 11.1 L Hct 35.1 L MCV 85.2 MCH 26.9 L MCHC 31.6 L RDW 14.7 H RDW Differential 44.6 H Plt Count 142 L MPV 10.8 Immature Gran % (Auto) 0.600 Neut % (Auto) 75.4 H Lymph % (Auto) 12.4 L [place] % (Auto) 9.1 Eos % (Auto) 1.9 Baso % (Auto) 0.6 Absolute Neuts (auto) 3.6 Absolute Lymphs (auto) 0.60 L Total Counted Not Reportable Differential Comment SCANNED PT 21.7 H INR 1.9 Sodium 139 Potassium 4.0 Chloride 104 Carbon Dioxide 29.0 Anion Gap 6 BUN 32 H Creatinine 1.14 Estim Creat Clear Calc 38.38 Est GFR (MDRD) Af Amer 80 Est GFR (MDRD) Non-Af 66 BUN/Creatinine Ratio 28.1 H Glucose 155 H Calcium 7.7 L Phosphorus 1.9 L Magnesium 2.3 Medical Necessity - Tobacco Use Smoking Status: Former smoker Tobacco Use: Non-smoker Assessment/Plan All Active Problems (Last Reviewed 04/23/18 @ 08:45 by Vanessa Knutson) Thoracic aortic aneurysm, ruptured (Resolved) Pneumonia (Acute) Squamous cell carcinoma of skin (Resolved) #1 severe sepsis due to community-acquired pneumonia from adenovirus-continue supportive care #2 acute on chronic diastolic congestive heart failure-cardiology is continuing to participate in his care, he remains on Lasix and a beta-zahida. 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 Code Visit Inpatient E&M: 86429 Subs Hosp L2
--- NOTE | 2019-02-13 19:06 | PN_ITS ---
Patient Problems: Active and Suspected Problems (Last Reviewed 04/23/18 @ 08:45 by Vanessa Knutson) Pneumonia (Acute) Subjective: Patient was seen and examined today, he was transferred from the ICU to PCU for ongoing care. 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 Patient is currently being treated for diastolic congestive heart failure, community acquired pneumonia, and adenovirus upper respiratory infection. Patient is currently on room air. - Physical Exam General: Alert, Oriented x3, Cooperative, No apparent distress, Well developed, Well nourished HEENT: Atraumatic, PERRLA, EOMI, Normocephalic Oral: Moist Mucosa Neck: Supple, No JVD, Negative Carotid Bruits, Trachea Midline, Thyroid Normal Size and Texture Lungs: Normal air movement, Wheezes - Expiratory wheezes are noted to be scattered bilaterally Cardiovascular: No murmurs, PMI Normal, Irregular Rate, No rub noted Abdomen: Bowel Sounds Present, Soft, Non Tender, Non-Distended Extremities: No clubbing, No cyanosis, No edema, Capillary Refill Less than 3 Seconds Skin: No rashes, No breakdown Musculoskeletal: No Tenderness to Palpation of Joints or Extremities Neurological: Cranial nerves II-XII grossly intact, Neuro grossly intact, Sensory exam intact to light touch and pain, Coordination normal Psych/Mental Status: Normal Affect, Appropriate, Alert and oriented to time, place, person, mood and affect Vital Signs Temp Pulse Resp BP Pulse Ox 98.2 F 104 H 20 H 126/68 H 94 02/13/19 14:00 02/13/19 16:10 02/13/19 14:00 02/13/19 14:00 02/13/19 14:00 Oxygen Flow Rate (L/min) 0 Oxygen Delivery Method Room Air Weight: 59.6 kg Body Mass Index (BMI) 23.8 Intake and Output for Last 24 Hours 02/11/19 02/12/19 02/13/19 23:59 23:59 23:59 Intake Total 2353 / 2353 927.5 / 927.5 1036.3 / 1036.3 Output Total 2049 / 2049 1225 / 1225 1725 / 1725 Balance 303 / 303 -297.5 / -297.5 -688.7 / -688.7 Microbiology Past 72 Hours 02/09/19 14:15 Blood Culture - Preliminary Blood Culture (Wb) - Left Hand No growth in 48 hours. 02/09/19 19:55 Gram Stain - Final Sputum, Expectorated/Coughed Respiratory Culture - Final Mixed normal respiratory gifty. No Haemophilus, Streptococcus pneumoniae, beta-hemolytic Streptococcus or Staphylococcus aureus isolated. 02/09/19 13:10 Blood Culture - Preliminary Blood Culture (Wb) - Anticubital Right No growth in 48 hours. Laboratory Tests Past 24 Hrs 02/13/19 02/13/19 02/13/19 05:00 05:00 05:00 WBC 4.8 RBC 4.12 L Hgb 11.1 L Hct 35.1 L MCV 85.2 MCH 26.9 L MCHC 31.6 L RDW 14.7 H RDW Differential 44.6 H Plt Count 142 L MPV 10.8 Immature Gran % (Auto) 0.600 Neut % (Auto) 75.4 H Lymph % (Auto) 12.4 L [place] % (Auto) 9.1 Eos % (Auto) 1.9 Baso % (Auto) 0.6 Absolute Neuts (auto) 3.6 Absolute Lymphs (auto) 0.60 L Total Counted Not Reportable Differential Comment SCANNED PT 21.7 H INR 1.9 Sodium 139 Potassium 4.0 Chloride 104 Carbon Dioxide 29.0 Anion Gap 6 BUN 32 H Creatinine 1.14 Estim Creat Clear Calc 38.38 Est GFR (MDRD) Af Amer 80 Est GFR (MDRD) Non-Af 66 BUN/Creatinine Ratio 28.1 H Glucose 155 H Calcium 7.7 L Phosphorus 1.9 L Magnesium 2.3 Medical Necessity - Tobacco Use Smoking Status: Former smoker Tobacco Use: Non-smoker Assessment/Plan All Active Problems (Last Reviewed 04/23/18 @ 08:45 by Vanessa Knutson) Thoracic aortic aneurysm, ruptured (Resolved) Pneumonia (Acute) Squamous cell carcinoma of skin (Resolved) #1 severe sepsis due to community-acquired pneumonia from adenovirus-continue supportive care #2 acute on chronic diastolic congestive heart failure-cardiology is continuing to participate in his care, he remains on Lasix and a beta-zahida. 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 Code Visit Inpatient E&M: 03249 Subs Hosp L2
[2019-02-14] VITALS (21 sets, daily range): BP systolic 127–146; BP diastolic 64–91; PULSE 86–125; RESP 16–22; TEMP 36.6–36.9; O2SAT 91–97
[2019-02-14] MEDS: Ipratropium/Albuterol Sulfate 3 ML AMPUL.NEB INHALATION ×4 (02:06→20:00)
[2019-02-14] MEDS: Amiodarone 200 MG Tablet PO ×3 (05:17→21:37)
[2019-02-14] MEDS: Levothyroxine 75 MCG Tablet PO (05:17)
[2019-02-14 05:26] LABS: International Normalized Ratio 1.9; Prothrombin Time (Protime)PT. 21.7 SECONDS (11.7-14.9)
[2019-02-14] MEDS: Metoprolol Tartrate 100 MG Tablet PO ×2 (07:42→21:37)
[2019-02-14] MEDS: Ramipril 10 MG Capsule PO ×2 (09:21→21:37)
[2019-02-14] MEDS: amLODIPine 10 MG Tablet PO (09:21)
[2019-02-14] MEDS: Furosemide 40 MG Tablet PO ×2 (09:21→17:13)
--- NOTE | 2019-02-14 09:43 | PCM.PN.PUL ---
Patient Problems: Active and Suspected Problems (Last Updated 02/13/19 @ 19:08 by Ronnie Buenrostro DO) Pneumonia (Acute) Subjective: Patient did well overnight. No acute issues were reported. Patient feels subjectively improved compared to previous. No bleeding has been reported. Patient was able to make it to the side of the bed independently on my evaluation. - Physical Exam General: Alert, Cooperative, No apparent distress, - - No conversational dyspnea noted. HEENT: Atraumatic, PERRLA, EOMI, Normocephalic, - - No scleral icterus or injection noted. Oral: Moist Mucosa, No Gingival or Mucosal Lesions/ Ulcerations Neck: Supple, No JVD Lungs: No rhonchi, No wheeze, No rales, Diminished, - - Symmetric expansion. No dullness to percussion. Cardiovascular: Regular rate, Regular Rhythm, Normal S1, Normal S2, No murmurs, No rub noted, No Gallop Abdomen: Bowel Sounds Present, Soft, Non Tender, Non-Distended Extremities: No clubbing, No cyanosis, No edema, - - Right hand amputation Skin: - - No significant change compared to previous Musculoskeletal: No Tenderness to Palpation of Joints or Extremities Lymphatic: No Cervical, Supraclavicular, or Inguinal Adenopathy Neurological: Cranial nerves II-XII grossly intact, Neuro grossly intact, Motor Exam 5/5 strength throughout Psych/Mental Status: Appropriate, Flat Affect Vital Signs Temp Pulse Resp BP Pulse Ox 36.6 C 95 16 144/64 H 94 02/14/19 09:26 02/14/19 09:26 02/14/19 09:26 02/14/19 09:26 02/14/19 09:26 Oxygen Flow Rate (L/min) 2 Oxygen Delivery Method Nasal Cannula Weight: 58.5 kg Body Mass Index (BMI) 23.8 Intake and Output for Last 24 Hours 02/12/19 02/13/19 02/14/19 23:59 23:59 23:59 Intake Total 927.5 / 927.5 1036.3 / 1036.3 120 / 120 Output Total 1225 / 1225 1725 / 1725 1225 / 1225 Balance -297.5 / -297.5 -688.7 / -688.7 -1105 / -1105 Microbiology Past 72 Hours 02/09/19 14:15 Blood Culture - Preliminary Blood Culture (Wb) - Left Hand No growth in 48 hours. 02/09/19 19:55 Gram Stain - Final Sputum, Expectorated/Coughed Respiratory Culture - Final Mixed normal respiratory gifty. No Haemophilus, Streptococcus pneumoniae, beta-hemolytic Streptococcus or Staphylococcus aureus isolated. 02/09/19 13:10 Blood Culture - Preliminary Blood Culture (Wb) - Anticubital Right No growth in 48 hours. Laboratory Tests Past 24 Hrs 02/14/19 05:12 PT 21.7 H INR 1.9 Medical Necessity - Tobacco Use Smoking Status: Former smoker Tobacco Use: Non-smoker Assessment/Plan All Active Problems (Last Updated 02/13/19 @ 19:08 by Ronnie Buenrostro DO) Thoracic aortic aneurysm, ruptured (Resolved) Pneumonia (Acute) Squamous cell carcinoma of skin (Resolved) RECOMMENDATIONS: 1. Rate control per cardiology 2. Continue diuresis with a goal of -500 mL to 1 L 3. Recheck electrolytes tomorrow 4. Wean oxygen as tolerated, BiPAP overnight 5. Walking oximetry prior to discharge IMPRESSIONS: 1. Acute hypoxic respiratory failure secondary to adenoviral pneumonia and acute on chronic congestive heart failure Clinical suspicion for exacerbation of diastolic congestive heart failure secondary to A. fib with RVR. Patient did have an elevated BNP on presentation and has responded well to IV Lasix. Echocardiogram noted. Little to no use of BiPAP during the day. Would continue with BiPAP overnight. Rate control per cardiology. Defer to cardiology if patient can be transitioned to p.o. amiodarone. No indication for emergent cardioversion. Will be more aggressive about diuretic therapy with a goal of -500mL to -1 L by tomorrow. 2. Acute on chronic diastolic congestive heart failure secondary to A. fib with RVR Patient reportedly does have a history of atrial fibrillation in the past and is on Coumadin therapy. Patient also had an aortic valve replacement. Patient may require increased dose of Coumadin given cessation of antibiotics. Patient may need evaluation for ablation. Cardiology is currently consulted. Rate is better controlled 3. Acute kidney injury/hypokalemia Patient with elevation of creatinine to 1.36 on presentation. Patient has responded well to interventions. Decreased potassium likely secondary to diuretic therapy. Aggressive repletion will be ordered as indicated. We will continue to monitor this and magnesium intermittently. 4. Severe sepsis secondary to probable adenovirus pneumonia Patient has come back positive for adenovirus, which may account for positive sirs criteria. Cultures have been negative to this point. Antibiotics have been discontinued. Patient does not appear to have increased complications. We will continue to monitor. 5. Hypothyroidism/history of aortic valve replacement/advanced age/history of tobacco use/history of squamous cell carcinoma of the skin Complicates care, management, recovery and prognosis. Monitor INR on a daily basis. Code Visit Inpatient E&M: 66032 Subs Hosp L2
[2019-02-14] MEDS: Na Biphos/Potassium Phosphate PACKET 1 PACKET PO (10:48)
--- NOTE | 2019-02-14 11:31 | CASEMGMT ---
Patient has not used his Medicare days. Therefore he has days 1-20 covered at 100%. Jayda MOSER MSW
--- NOTE | 2019-02-14 14:19 | CASEMGMT ---
ELVIN checked back in with patient and his . ELVIN wanted to make sure they knew TCU had a bed for patient. They were glad ELVIN stopped by as they forgot what ELVIN said yesterday. They are aware TCU will have a bed for patient tomorrow. Plan: [facility] TCU under skilled level of care. Jayda MOSER MSW
--- NOTE | 2019-02-14 15:03 | PCM.PROGNOTE ---
Patient Problems: Active and Suspected Problems (Last Updated 02/13/19 @ 19:08 by Ronnie Buenrostro DO) Pneumonia (Acute) Subjective: Breathing improved. Down to 1 lpm - does not use home o2. No CP. No palpitations. No LH/Dizziness. Rate is much better. - Physical Exam General: Alert, Oriented x3, Cooperative HEENT: Atraumatic, PERRLA, EOMI, Normocephalic Neck: Supple, No JVD, Negative Carotid Bruits Lungs: Clear to auscultation, Normal air movement Cardiovascular: Regular rate, No murmurs Abdomen: Bowel Sounds Present, Soft, Non Tender Extremities: No edema, Capillary Refill Less than 3 Seconds Skin: No rashes, No breakdown Musculoskeletal: No Tenderness to Palpation of Joints or Extremities Neurological: Cranial nerves II-XII grossly intact Psych/Mental Status: Normal Affect, Appropriate, Alert and oriented to time, place, person, mood and affect Vital Signs Temp Pulse Resp BP Pulse Ox 97.9 F 101 H 16 144/64 H 97 02/14/19 09:26 02/14/19 14:25 02/14/19 13:18 02/14/19 09:26 02/14/19 11:36 Oxygen Flow Rate (L/min) 2 Oxygen Delivery Method Nasal Cannula Weight: 128 lb 15.527 oz Body Mass Index (BMI) 23.8 Intake and Output for Last 24 Hours 02/12/19 02/13/19 02/14/19 23:59 23:59 23:59 Intake Total 927.5 / 927.5 1036.3 / 1036.3 360 / 360 Output Total 1225 / 1225 1725 / 1725 1225 / 1225 Balance -297.5 / -297.5 -688.7 / -688.7 -865 / -865 Microbiology Past 72 Hours 02/09/19 13:10 Blood Culture - Final Blood Culture (Wb) - Anticubital Right No growth in 5 days. 02/09/19 14:15 Blood Culture - Preliminary Blood Culture (Wb) - Left Hand No growth in 48 hours. 02/09/19 19:55 Gram Stain - Final Sputum, Expectorated/Coughed Respiratory Culture - Final Mixed normal respiratory gifty. No Haemophilus, Streptococcus pneumoniae, beta-hemolytic Streptococcus or Staphylococcus aureus isolated. Laboratory Tests Past 24 Hrs 02/14/19 05:12 PT 21.7 H INR 1.9 Medical Necessity - Tobacco Use Smoking Status: Former smoker Tobacco Use: Non-smoker Assessment/Plan All Active Problems (Last Updated 02/13/19 @ 19:08 by Ronnie Buenrostro DO) Thoracic aortic aneurysm, ruptured (Resolved) Pneumonia (Acute) Squamous cell carcinoma of skin (Resolved) 1. Severe sepsis 2/2 CAP 2/2 adenovirus - supportive care. Stable. Wean o2 as tolerated. Sputum with no significant growth. Off Abx. 2. Acute on chronic diastolic CHF - lasix PO, beta zahida, ALEXANDREA-i. Trop neg. BNP 1194 on admission. TSH/Ft4 normal. 3. Afib RVR - chronic AF. Rate controlled now. Cardiology following. On warfarin. Adjust dose and trend inr. Replete K. 4. CAD - home meds. 5. HTN - mildly elevated. 6. Hypothyroid - synthroid - TSH/FT4 nl. DVT ppx: warfarin DC planning: TCU tomorrow This patient was seen by Benjamin Rivera PA-C under the supervision of Doctor Buenrostro.
--- NOTE | 2019-02-14 18:06 | PCM.PN.CARD ---
Subjectve: The patient was evaluated earlier this day. He appeared to be resting comfortably. He had no new acute complaints. Objective: Vital Signs Temp Pulse Resp BP Pulse Ox 98.2 F 99 16 146/91 H 96 02/14/19 15:30 02/14/19 15:30 02/14/19 15:30 02/14/19 15:30 02/14/19 15:30 Oxygen Flow Rate (L/min) 2 Oxygen Delivery Method Nasal Cannula Weight: 128 lb 15.527 oz Body Mass Index (BMI) 23.8 Intake and Output for Last 24 Hours 02/12/19 02/13/19 02/14/19 23:59 23:59 23:59 Intake Total 927.5 / 927.5 1036.3 / 1036.3 600 / 600 Output Total 1225 / 1225 1725 / 1725 1775 / 1775 Balance -297.5 / -297.5 -688.7 / -688.7 -1175 / -1175 General: Awake, Alert, Oriented x 3, Cooperative HEENT: Atraumatic, Normocephalic, PERRL, EOMI, Sclera Non Icteric Oral: Moist Mucosa Neck: Supple, Good ROM, No JVD Lungs: Rhonchi - Less prominent than previous examination Cardiovascular: Irregular Rhythm, Normal S1, Normal S2 Abdomen: Bowel Sounds Present, Soft, Non Tender Extremities: No edema Psych/Mental Status: Appropriate 02/14/19 05:12: PT 21.7 H, INR 1.9 Rhythm: Cardiac rhythm compatible with paroxysmal atrial fibrillation/flutter Medical Necessity - Tobacco Use Smoking Status: Former smoker Tobacco Use: Non-smoker Assessment/Plan 1. Atrial fibrillation/atrial flutter with rapid ventricular response The patient does have a history, based upon his [facility] medical records, postoperative atrial fibrillation treated with anticoagulation therapy and antiarrhythmic therapy with amiodarone. The patient did convert to sinus rhythm for a period of time. He has now returned to atrial fibrillation/flutter with rapid ventricular response. He will continue medical management. His beta-zahida dose has been increased. He is continuing oral amiodarone loading at this time. 2. CAD status post PCI At the present time he appears to be without evidence of acute coronary syndrome. He will continue medical management and follow-up as deemed appropriate. 3. Thoracic aortic aneurysm-rupture status post repair The details of his thoracic aortic aneurysm rupture and surgery are as previously noted. 4. Hypertension He has a history of hypertension. He will continue medical management with adjustment as needed. 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 He states that is why he has been on long-term anticoagulant therapy. He will be followed and reassessed as needed. 6. Pneumonia He has been diagnosed with underlying pulmonary disease. Based upon his respiratory evaluation it appears that he has an underlying adenovirus. He will continue evaluation care by internal medicine and pulmonology/critical care medicine if needed. This note was generated using a voice recognition system and there may be incorrect words, spelling or punctuation that were not noted when reviewing the office note prior to saving.
[2019-02-15] VITALS (13 sets, daily range): BP systolic 125–151; BP diastolic 63–72; PULSE 72–125; RESP 16–20; TEMP 36.4–36.6; O2SAT 94–100
[2019-02-15] MEDS: Ipratropium/Albuterol Sulfate 3 ML AMPUL.NEB INHALATION ×3 (01:34→13:52)
[2019-02-15] MEDS: Amiodarone 200 MG Tablet PO ×2 (06:03→13:28)
[2019-02-15] MEDS: Levothyroxine 75 MCG Tablet PO (06:03)
[2019-02-15 06:34] LABS: International Normalized Ratio 2.2; Prothrombin Time (Protime)PT. 24.4 SECONDS (11.7-14.9)
[2019-02-15 06:46] LABS: Anion Gap 7 (5-15); BUN 30 mg/dL (7-18); BUN/Creat Ratio 27.8 RATIO (10-20); Calcium,Total 8.1 mg/dL (8.5-10.1); Chloride 106 mmol/L (98-107); Creatinine, Serum 1.08 mg/dL (0.70-1.30); EST Glomerular Filtration Rate 70 mL/min (>60); Est Glom Filt Rate - Afr Amer 85 mL/min (>60); Estimated Creatinine Clearance 40.51 ml/min; Glucose 96 mg/dL (74-106); Magnesium 2.6 mg/dL (1.6-2.6); Phosphorus 3.5 mg/dL (2.5-4.9); Sodium Level 141 mmol/L (136-145)
--- NOTE | 2019-02-15 07:14 | PCM.PN.PUL ---
Patient Problems: Active and Suspected Problems (Last Updated 02/13/19 @ 19:08 by Ronnie Buenrostro DO) Pneumonia (Acute) Subjective: Patient did well overnight. No acute issues were reported. Patient feels subjectively improved compared to previous. Patient does have some pain at previous IV sites, but otherwise is doing well. - Physical Exam General: Alert, Oriented x3, Cooperative, No apparent distress, - - Speaks in full sentences. HEENT: Atraumatic, PERRLA, EOMI, Normocephalic, - - No scleral icterus or injection noted. Oral: Moist Mucosa, No Gingival or Mucosal Lesions/ Ulcerations Neck: Supple, No JVD, No Nodes, Trachea Midline Lungs: No rhonchi, No wheeze, No rales, Diminished Cardiovascular: Regular rate, Regular Rhythm, Normal S1, Normal S2, No murmurs, No rub noted, No Gallop Abdomen: Bowel Sounds Present, Soft, Non Tender, Non-Distended Extremities: No cyanosis, No edema, Capillary Refill Less than 3 Seconds, - - Right hand amputation Skin: - - Some induration in right antecub without erythema or breakdown Musculoskeletal: No Tenderness to Palpation of Joints or Extremities Lymphatic: No Cervical, Supraclavicular, or Inguinal Adenopathy Neurological: Cranial nerves II-XII grossly intact, Neuro grossly intact, Motor Exam 5/5 strength throughout Psych/Mental Status: Appropriate, Flat Affect Vital Signs Temp Pulse Resp BP Pulse Ox 36.5 C L 106 H 18 151/70 H 100 02/15/19 03:30 02/15/19 06:25 02/15/19 03:30 02/15/19 03:30 02/15/19 03:30 Oxygen Flow Rate (L/min) 2 Oxygen Delivery Method Nasal Cannula Weight: 57.5 kg Body Mass Index (BMI) 23.8 Intake and Output for Last 24 Hours 02/13/19 02/14/19 02/15/19 23:59 23:59 23:59 Intake Total 1036.3 / 1036.3 660 / 660 60 / 60 Output Total 1725 / 1725 2325 / 2325 300 / 300 Balance -688.7 / -688.7 -1665 / -1665 -240 / -240 Microbiology Past 72 Hours 02/09/19 14:15 Blood Culture - Final Blood Culture (Wb) - Left Hand No growth in 5 days. 02/09/19 13:10 Blood Culture - Final Blood Culture (Wb) - Anticubital Right No growth in 5 days. 02/09/19 19:55 Gram Stain - Final Sputum, Expectorated/Coughed Respiratory Culture - Final Mixed normal respiratory gifty. No Haemophilus, Streptococcus pneumoniae, beta-hemolytic Streptococcus or Staphylococcus aureus isolated. Laboratory Tests Past 24 Hrs 02/15/19 02/15/19 05:25 05:25 PT 24.4 H INR 2.2 Sodium 141 Potassium 4.0 Chloride 106 Carbon Dioxide 28.0 Anion Gap 7 BUN 30 H Creatinine 1.08 Estim Creat Clear Calc 40.51 Est GFR (MDRD) Af Amer 85 Est GFR (MDRD) Non-Af 70 BUN/Creatinine Ratio 27.8 H Glucose 96 Calcium 8.1 L Phosphorus 3.5 Magnesium 2.6 Medical Necessity - Tobacco Use Smoking Status: Former smoker Tobacco Use: Non-smoker Assessment/Plan All Active Problems (Last Updated 02/13/19 @ 19:08 by Ronnie Buenrostro DO) Thoracic aortic aneurysm, ruptured (Resolved) Pneumonia (Acute) Squamous cell carcinoma of skin (Resolved) RECOMMENDATIONS: 1. Rate control per cardiology 2. Likely okay to decrease diuresis from my perspective 3. No indication for electrolyte replacement 4. Wean oxygen as tolerated, BiPAP overnight 5. Walking oximetry prior to discharge 6. Okay to go to TCU from my perspective IMPRESSIONS: 1. Acute hypoxic respiratory failure secondary to adenoviral pneumonia and acute on chronic congestive heart failure Clinical suspicion for exacerbation of diastolic congestive heart failure secondary to A. fib with RVR. Patient did have an elevated BNP on presentation and has responded well to IV Lasix. Echocardiogram noted. Little to no use of BiPAP during the day. Would continue with BiPAP overnight. Rate control per cardiology. No indication for emergent cardioversion. Patient likely okay to go to a more maintenance dose of diuretic therapy.. 2. Acute on chronic diastolic congestive heart failure secondary to A. fib with RVR Patient reportedly does have a history of atrial fibrillation in the past and is on Coumadin therapy. Patient also had an aortic valve replacement. Patient may require increased dose of Coumadin given cessation of antibiotics. Patient may need evaluation for ablation. Cardiology is currently consulted. Rate is better controlled. INR is appropriate. 3. Acute kidney injury/hypokalemia Patient with elevation of creatinine to 1.36 on presentation. Patient has responded well to interventions. Decreased potassium likely secondary to diuretic therapy. Aggressive repletion will be ordered as indicated. We will continue to monitor this and magnesium intermittently. 4. Severe sepsis secondary to probable adenovirus pneumonia Patient has come back positive for adenovirus, which may account for positive sirs criteria. Cultures have been negative to this point. Antibiotics have been discontinued. Patient does not appear to have increased complications. We will continue to monitor. 5. Hypothyroidism/history of aortic valve replacement/advanced age/history of tobacco use/history of squamous cell carcinoma of the skin Complicates care, management, recovery and prognosis. Monitor INR on a daily basis. Code Visit Inpatient E&M: 13661 Subs Hosp L2
[2019-02-15] MEDS: Ramipril 10 MG Capsule PO (09:02)
[2019-02-15] MEDS: Metoprolol Tartrate 100 MG Tablet PO (09:02)
[2019-02-15] MEDS: amLODIPine 10 MG Tablet PO (09:02)
[2019-02-15] MEDS: Furosemide 40 MG Tablet PO ×2 (09:02→16:36)
--- NOTE | 2019-02-15 09:23 | PCM.PN.CARD ---
Subjectve: The patient is awake and alert. He has been up and ambulating in his room. He denies any acute chest discomfort or acute shortness of breath or dyspnea. He does not seem aware of his underlying cardiac rate and/or rhythm. Objective: Vital Signs Temp Pulse Resp BP Pulse Ox 97.7 F L 125 H 16 140/72 H 96 02/15/19 03:30 02/15/19 09:02 02/15/19 08:17 02/15/19 09:02 02/15/19 08:17 Oxygen Flow Rate (L/min) 2 Oxygen Delivery Method Room Air Weight: 126 lb 12.253 oz Body Mass Index (BMI) 23.8 Intake and Output for Last 24 Hours 02/13/19 02/14/19 02/15/19 23:59 23:59 23:59 Intake Total 1036.3 / 1036.3 660 / 660 60 / 60 Output Total 1725 / 1725 2325 / 2325 300 / 300 Balance -688.7 / -688.7 -1665 / -1665 -240 / -240 General: Awake, Alert, Oriented x 3, Cooperative, No Acute Distress HEENT: Atraumatic, Normocephalic, PERRL, EOMI, Sclera Non Icteric Oral: Moist Mucosa Neck: Supple, Good ROM, No JVD Lungs: Diminished Right Base Cardiovascular: Irregular Rhythm, Normal S1, Normal S2 Abdomen: Bowel Sounds Present, Soft, Non Tender Extremities: No edema Psych/Mental Status: Appropriate 02/15/19 05:25: PT 24.4 H, INR 2.2 02/15/19 05:25: Sodium 141, Potassium 4.0, Chloride 106, Carbon Dioxide 28.0, Anion Gap 7, BUN 30 H, Creatinine 1.08, Est GFR (MDRD) Af Amer 85, Est GFR (MDRD) Non-Af 70, BUN/Creatinine Ratio 27.8 H, Glucose 96, Calcium 8.1 L, Phosphorus 3.5, Magnesium 2.6 Rhythm: Atrial fibrillation/flutter with intermittent rapid ventricular response Medical Necessity - Tobacco Use Smoking Status: Former smoker Tobacco Use: Non-smoker Assessment/Plan 1. Atrial fibrillation/atrial flutter with rapid ventricular response The patient does have a history, based upon his [facility] medical records, postoperative atrial fibrillation treated with anticoagulation therapy and antiarrhythmic therapy with amiodarone. The patient did convert to sinus rhythm for a period of time. He has now returned to atrial fibrillation/flutter with rapid ventricular response. He will continue medical management. His beta-zahida dose has been increased. He may need additional rate limiting therapy, such as a calcium channel antagonist, until his respiratory status improves and his cardiac rate and rhythm become better controlled. He is continuing oral amiodarone loading at this time. Eventually he may need an attempt at regaining sinus rhythm with synchronized biphasic DC cardioversion once his underlying pulmonary process has improved, etc. 2. CAD status post PCI At the present time he appears to be without evidence of acute coronary syndrome. He will continue medical management and follow-up as deemed appropriate. 3. Thoracic aortic aneurysm-rupture status post repair The details of his thoracic aortic aneurysm rupture and surgery are as previously noted. 4. Hypertension He has a history of hypertension. He will continue medical management with adjustment as needed. 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 He states that is why he has been on long-term anticoagulant therapy. He will be followed and reassessed as needed. 6. Pneumonia He has been diagnosed with underlying pulmonary disease. Based upon his respiratory evaluation it appears that he has an underlying adenovirus. He will continue evaluation care by internal medicine and pulmonology/critical care medicine if needed. Comment: The above has been discussed and reviewed with the [facility] nursing staff and hospital staff. This note was generated using a voice recognition system and there may be incorrect words, spelling or punctuation that were not noted when reviewing the office note prior to saving.
[2019-02-15] MEDS: dilTIAZem CD 120 MG Capsule PO (09:56)
--- NOTE | 2019-02-15 11:01 | CASEMGMT ---
SW may or may not be discharged to TCU today. ELVIN called Rachael in TCU and let her know. ELVIN also put a green sheet on chart. Plan: d/c to [facility] TCU. Jayda ALEGRE
--- NOTE | 2019-02-15 11:43 | PCM.EXTCARCO ---
- Diet 02/09/19 15:06 Diet: Cardiac/Low Cholesterol Food consistency:: Regular Liquid Consistency:: Regular/Thin - Routine Orders/Code Status Suppository Type: Dulcolax 10mg Suppository Frequency: Daily PRN O2 Frequency: PRN Routine Lab Work: CBC - 5 days, BMP - 3 days, INR - 3 days Code Status: Full Code - Therapies Physical Therapy: Eval and Treat Occupational Therapy: Eval and Treat - Problem/Diagnosis (1) Sepsis Status: Acute Current Visit: Yes (2) Diastolic CHF Status: Acute Current Visit: Yes (3) Pneumonia Status: Acute Current Visit: Yes (4) Atrial fibrillation Status: Chronic Current Visit: No (5) Benign essential HTN Status: Chronic Current Visit: No (6) CAD (coronary artery disease) Status: Chronic Current Visit: No (7) History of tobacco use Status: Chronic Current Visit: No (8) Hx of replacement of aortic valve Status: Chronic Current Visit: No (9) Hypothyroidism Status: Chronic Current Visit: No (10) Squamous cell carcinoma of skin Status: Resolved Current Visit: No - Allergies/Procedures Done in Hospital Allergies/Adverse Reactions: Allergies No Known Allergies Allergy (Verified 05/26/18 08:01) Procedures: 2-D Echocardiogram - Type of Care/Length of Stay Estimated LOS: Convalescent Care Less Than 30 days Type of Care Needed: Skilled Rehab Potential: Fair Prognosis: Fair - Additional Orders/Day of Discharge Day of Discharge: 02/15/19 - Dietary and Speech Recommendations Dietitian Recommendations/Changes: Suggest diet change to cardiac/low sodium with 1500 ml FR. - Follow Up Care Primary Care Physician: Ihsan Modi MD [Primary Care Provider] - Please follow up with your Primary Care Physician in: 2 weeks Please Follow Up With: Boo Jones MD When: as directed
--- NOTE | 2019-02-15 11:47 | CASEMGMT ---
Patient is ready for discharge to [facility] TCU today. SW called Rachael and left her a message letting her know about d/c. Plan: [facility] TCU under skilled level of care. Jayda ALEGRE
--- NOTE | 2019-02-15 14:02 | DS.PCM_ITS ---
Discharge Date and Diagnosis - Problem List Patient Problems: Active and Suspected Problems (Last Updated 02/13/19 @ 19:08 by Ronnie Buenrostro DO) Sepsis (Acute) Diastolic CHF (Acute) Pneumonia (Acute) Date of Admission: 02/09/19 Date of Discharge: 02/15/19 - Primary Discharge Diagnosis Active and Suspected Problems (Last Updated 02/13/19 @ 19:08 by Ronnie Buenrostro DO) Acute sepsis secondary to viral pneumonia, adenovirus Acute hypoxic respiratory failure secondary to community-acquired pneumonia Atrial fibrillation with rapid ventricular response Acute on chronic diastolic congestive heart failure Acute kidney injury secondary to sepsis Hypothyroidism History of aortic valve replacement - Secondary Discharge Diagnosis Chronic Problems (Last Updated 02/13/19 @ 19:08 by Ronnie Buenrostro DO) S/P PTCA (percutaneous transluminal coronary angioplasty) (Chronic) 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 Echo: Interpretation Summary The study was technically difficult. Left ventricular systolic function is normal. The estimated ejection fraction is 55 %. Severe concentric left ventricular hypertrophy. Apical false tendon noted. The left atrium is moderately enlarged. The right atrium is mildly enlarged. There is moderate mitral annular calcification. Extension of the mitral annular calcification onto the base of the posterior mitral valve leaflet. Mild diffuse mitral valve thickening. Mild-Moderate (1-2+) mitral valve insufficiency. Trivial tricuspid valve insufficiency. Aortic sclerosis, no stenosis. Mild-Moderate (1-2+) aortic valve insufficiency. Trivial pulmonic valve insufficiency. Borderline to mildly enlarged aortic root. Right ventricular systolic pressure estimated to be 34 mmHg. Unable to assess diastolic dysfunction. RAD/Chest 1 View (Portable) IMPRESSION: Stable examination with bibasilar infiltrates more prominent on the right side. Consultations: [place]-cardiology David-pulmonology/critical care Operations: None Procedures: 2-D Echocardiogram Summary of Care Provided: Hospital course: The patient is a 78 year old M with past medical history of coronary artery disease with prior PCI, diastolic CHF, pulmonary embolism, atrial fibrillation, tobacco abuse, hypertension, hypothyroidism, hyperlipidemia, nicotine abuse, aortic valve replacement, aortic aneurysm, who presented to the emergency room with shortness of breath and cough over 4 days leading up to his presentation. He was hypoxic at 88% requiring 2 L of oxygen to bring him up to 94%. Chest x-ray showed bilateral infiltrates, however he did not have significant leukocytosis. Lactic acid was 2.6. He was admitted for severe sepsis secondary to community-acquired pneumonia, acute hypoxic respiratory failure, and his creatinine was elevated indicating acute kidney injury. The next day he developed atrial fibrillation with rapid ventricular response and increased oxygen requirement. He was transferred to the ICU and placed on BiPAP PRN. Cardiology and pulmonology were consulted. Echocardiogram was obtained with results as above. He was placed on IV amiodarone for rate control. He remained on Coumadin for anticoagulation. He was given IV Lasix for presumed underlying congestive heart failure in addition to pneumonia. He tested positive for adenovirus. IV antibiotics were given initially (Rocephin and azithromycin), later discontinued. Patient improved with supportive care, diuretics, rate control, and aerosol therapy. He was transitioned to the PCU and remained stable. Cardizem was added and titrated up to control his rate. He continued to use BiPAP at night. He remains significantly debilitated and shelter was recommended. He was agreeable, and was transitioned to TCU in stable condition. He will need follow-up with his PCP in 2 weeks, follow-up with his key account director as directed. He may continue to use BiPAP at night, oxygen as needed, and aerosol therapy for ongoing shortness of breath with duo nebs, although excessive albuterol should be avoided given atrial fibrillation and rapid ventricular response. He will need his renal function, potassium, and INR monitored as an outpatient. This patient was seen by Benjamin Rivera PA-C under the supervision of Doctor Buenrostro. [] Patient Problems: Active and Suspected Problems (Last Updated 02/13/19 @ 19:08 by Ronnie Buenrostro DO) Sepsis (Acute) Diastolic CHF (Acute) Pneumonia (Acute) - Physical Exam General: Alert, Oriented x3, Cooperative HEENT: Atraumatic, PERRLA, EOMI, Normocephalic Neck: Supple, No JVD, Negative Carotid Bruits Lungs: Rales - BL bases Cardiovascular: Regular rate, No murmurs Abdomen: Bowel Sounds Present, Soft, Non Tender Extremities: No edema, Capillary Refill Less than 3 Seconds Skin: No rashes, No breakdown Musculoskeletal: No Tenderness to Palpation of Joints or Extremities Neurological: Cranial nerves II-XII grossly intact Psych/Mental Status: Normal Affect, Appropriate Vital Signs Temp Pulse Resp BP Pulse Ox 97.6 F L 80 16 140/72 H 99 02/15/19 09:30 02/15/19 13:39 02/15/19 09:30 02/15/19 09:30 02/15/19 13:39 Oxygen Flow Rate (L/min) 2 Oxygen Delivery Method Room Air Weight: 126 lb 12.253 oz Body Mass Index (BMI) 23.8 Intake and Output for Last 24 Hours 02/13/19 02/14/19 02/15/19 23:59 23:59 23:59 Intake Total 1036.3 / 1036.3 660 / 660 300 / 300 Output Total 1725 / 1725 2325 / 2325 600 / 600 Balance -688.7 / -688.7 -1665 / -1665 -300 / -300 Microbiology Past 72 Hours 02/09/19 14:15 Blood Culture - Final Blood Culture (Wb) - Left Hand No growth in 5 days. 02/09/19 13:10 Blood Culture - Final Blood Culture (Wb) - Anticubital Right No growth in 5 days. Laboratory Tests Past 24 Hrs 02/15/19 02/15/19 05:25 05:25 PT 24.4 H INR 2.2 Sodium 141 Potassium 4.0 Chloride 106 Carbon Dioxide 28.0 Anion Gap 7 BUN 30 H Creatinine 1.08 Estim Creat Clear Calc 40.51 Est GFR (MDRD) Af Amer 85 Est GFR (MDRD) Non-Af 70 BUN/Creatinine Ratio 27.8 H Glucose 96 Calcium 8.1 L Phosphorus 3.5 Magnesium 2.6 Discharge Diet: Low fat/ Low Cholesterol, 2000 mg Sodium Diet Home Medications: Medications to take at Discharge cholecalciferol (vitamin D3) 2,000 unit capsule 2,000 unit PO QDAY 04/23/18 levothyroxine 75 mcg capsule 75 mcg PO QDAY 04/23/18 nitroglycerin 0.4 mg sublingual tablet 0.4 mg SUBLINGUAL Q5-15M PRN 04/23/18 Potassium Chloride [K-Dur] 40 meq PO DAILY 02/09/19 Ramipril [Altace] 10 mg PO BID 02/09/19 Acetaminophen [Tylenol Tablet] 650 mg PO Q6H PRN PRN tablet 02/15/19 Amiodarone HCl [Cordarone] 200 mg PO DAILY tablet 02/15/19 Diltiazem CD [Cardizem CD] 120 mg PO Q12 #0 capsule 02/15/19 Furosemide [Lasix] 40 mg PO BID@1000,1800 tablet 02/15/19 Ipratropium/Albuterol Sulfate [Duoneb] 3 ml INHALATION Q6H.RT ampul.neb 02/15/19 Metoprolol Tartrate [Lopressor (beta zahida)] 100 mg PO BID tablet 02/15/19 Warfarin [Coumadin] 3 mg PO DAILY@1700 tablet 02/15/19 Primary Care Physician: Ihsan Modi MD [Primary Care Provider] - Please follow up with your Primary Care Physician in: 2 weeks Please Follow Up With: Boo Jones MD When: as directed Disposition: Nursing Home facility Minutes spent on discharge:: 35 Patient Condition:: Stable Medical Necessity - Tobacco Use Smoking Status: Former smoker Tobacco Use: Non-smoker Meaningful Use Info Meaningful Use Diagnoses (Choose all that apply): CHF - CHF ALEXANDREA/ARB ordered at discharge?: Yes Documented LVEF (%): 55
--- NOTE | 2019-02-15 16:08 | NURSING ---
Report called to Veronica HORNER on TCU, pt will be going to room 7 when the room is clean.
--- NOTE | 2019-02-15 17:24 | NURSING ---
Pts room ready in TCU, pt eating supper then will be transferred to Room 7 on TCU. Pt belongings in white bag to be sent with him.
--- NOTE | 2019-02-15 17:31 | NURSING ---
Pt transferred to TCU with his belongings, accompanied by PCU SUPER[employer]OR [employer].
== END 2019-02-15 17:50 | disposition skilled nursing facility (03) | DRG 871 ==
LOC: ED 13:25 → PCU 14:34 → ICU 02-11 06:05 → PCU 02-13 15:30
PROVIDERS: Internal Medicine; Internal Medicine Cardiovascular Disease; Internal Medicine Critical Care Medicine; Physician Assistant; Admitting Provider Student in an Organized Health Care Education/Training Program; Emergency Provider Emergency Medicine; Family Provider Family Medicine; PCP Family Medicine; Referring Provider Student in an Organized Health Care Education/Training Program; Visit Provider Internal Medicine
DX: A41.89 Other specified sepsis (principal); J12.0 Adenoviral pneumonia; J96.01 Acute respiratory failure with hypoxia; I50.33 Acute on chronic diastolic (congestive) heart failure; N17.9 Acute kidney failure, unspecified; R65.20 Severe sepsis without septic shock; E03.9 Hypothyroidism, unspecified; I48.91 Unspecified atrial fibrillation; I11.0 Hypertensive heart disease with heart failure; F17.201 Nicotine dependence, unspecified, in remission; I25.10 Atherosclerotic heart disease of native coronary artery without angina pectoris; Z86.79 Personal history of other diseases of the circulatory system; Z95.2 Presence of prosthetic heart valve; Z86.711 Personal history of pulmonary embolism; Z95.5 Presence of coronary angioplasty implant and graft; Z79.01 Long term (current) use of anticoagulants
CPT/HCPCS: 36415; 36600; 71045; 71046; 80048; 80061; 80076; 82803; 83605; 83735; 83880; 84100; 84439; 84443; 84484; 85025; 85610; 87040; 87070; 87205; 87633; 93005; 93306; 94002; 94003; 94640; 97110; 97162; 97165; 97530; 97535; 99285; J7030; A4216; J1940

== ENCOUNTER 2019-02-15 18:03 | Inpatient (IN) | payer MEDICARE, OTHER, SELFPAY ==
[2019-02-09 15:09] VITALS: BMI 23.8
[2019-02-15 18:15] VITALS: BP 151/62; PULSE 105; RESP 16; RESP 18; TEMP 36.8; O2SAT 94; BMI 24.9
--- NOTE | 2019-02-15 20:53 | PCM.HP.STD ---
Problem List (1) Debility Status: Acute (2) Community acquired pneumonia Status: Acute (3) Adenovirus as the cause of diseases classified elsewhere Status: Acute (4) Heart failure with preserved ejection fraction Status: Acute (5) COPD (chronic obstructive pulmonary disease) Status: Chronic (6) Sepsis Status: Acute (7) Pulmonary embolism Status: Chronic (8) Atrial fibrillation Status: Chronic (9) Coronary artery disease Status: Chronic (10) Hypertension Status: Chronic (11) Tobacco abuse Status: Acute (12) Ruptured abdominal aortic aneurysm Status: Chronic (13) Hypothyroidism Status: Chronic History of Present Illness Date of Admission: 02/15/19 Chief Complaint: Here for rehabilitation, strengthening, prior to discharge home with spouse. The patient is a 78 year old Male with below past medical history presented to [facility] Emergency Department 02/09/2019 with cough, shortness of breath. 4 days of cough, shortness of breath, patient believed he has pneumonia. EKG atrial fibrillation, rate 99, mild lateral ST depression. WBC normal with left shift, Hemoglobin 12.5. Glucose 162, BUN 29, Cr 1.26, INR 3.5, Troponin 0.015. Lactic Acid 2.6. Blood cultures sent. Chest X-ray showed right lower lobe infiltrate. Rocephin, Azithromycin, Aerosols, IV fluid bolus given. 02/09/2019 Admit to Hospital. Pancultured. Rocephin, Azithromycin, oxygen, aerosols for community acquired pneumonia. IV Fluids for acute kidney injury. 02/11/2019 Dr. Hernandez recommended stopping antibiotics if blood cultures negative. Diuresis for acute on chronic diastolic congestive heart failure. Rate contr/Amiodarone per cardiology. Oxygen, BiPAP as needed for rescue. Replete Potassium. 02/11/2019 Echo showed left ventricular systolic function normal. EF 55%. Severe concentric left ventricular hypertrophy. Right Ventricular systolic pressure 34mm HG. IV Lasix for congestive heart failure secondary to community acquired pneumonia. Respiratory panel positive Adenovirus. Cardizem added, titrated for rate control of atrial fibrillation. 02/15/2019 Admit to TCU with debility, here for rehabilitation, strengthening, prior to discharge home with spouse. 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10 Cold (Chronic) J00 Benign essential HTN (Chronic) I10 History of tobacco use (Chronic) Z87.891 Atrial fibrillation (Chronic) I48.91 Allergies No Known Allergies Allergy (Verified 05/26/18 08:01) Home Medications: Ambulatory Orders Medication Instructions Recorded cholecalciferol (vitamin D3) 2,000 2,000 unit PO QDAY 04/23/18 unit capsule levothyroxine 75 mcg capsule 75 mcg PO QDAY 04/23/18 nitroglycerin 0.4 mg sublingual 0.4 mg SUBLINGUAL Q5-15M PRN 04/23/18 tablet Potassium Chloride [K-Dur] 40 meq PO DAILY 02/09/19 Ramipril [Altace] 10 mg PO BID 02/09/19 Acetaminophen [Tylenol Tablet] 650 mg PO Q6H PRN PRN tablet 02/15/19 Amiodarone HCl [Cordarone] 200 mg PO DAILY 02/15/19 Diltiazem CD [Cardizem CD] 120 mg PO Q12 02/15/19 Furosemide [Lasix] 40 mg PO BID@1000,1800 02/15/19 Ipratropium/Albuterol Sulfate 3 ml INHALATION Q6H.RT 02/15/19 [Duoneb] Metoprolol Tartrate [Lopressor 100 mg PO BID 02/15/19 (beta zahida)] Warfarin [Coumadin] 3 mg PO DAILY@1700 02/15/19 Surgical History: Surgical History (Last Updated 04/23/18 @ 08:45 by Vanessa Knutson) Hx of replacement of aortic valve (Chronic) Z95.2 historyamputation right hand Surgical History: angioplasty, - - Thoracic aortic dupobhsc-[id number]-[id number] Status post aortic valve replacement Psychiatric History: No pertinent psych hx Lives: Spouse/ Significant Other Smoking Status: Former smoker Tobacco Use: Non-smoker Alcohol: None Drugs: None - *Family History Maternal Family History: Family History (Last Updated 04/23/18 @ 08:47 by Vanessa Knutson) Grandfather Diabetes Brother Heart disease History Items: No pertinent history Paternal Family History: Family History (Last Updated 04/23/18 @ 08:47 by Vanessa Knutson) Grandfather Diabetes Brother Heart disease History Items: No pertinent history Review of Systems Constitutional: Denies: Chills, Fever, Weight Change HEENT: Denies: Head Aches, Sinus Congestion, Sinus Drainage Cardiovascular: Denies: Chest Pain, Palpitations Respiratory: Denies: Cough, Shortness of breath at rest, Sputum production Gastrointestinal: Denies: Abdominal Pain, Nausea, Vomiting Genitourinary: Denies: Dysuria Musculoskeletal: Denies: Joint Pain, Joint Tenderness Skin: Denies: Rash, Wounds Neurological: Denies: Numbness, Tingling, Focal weakness Psychiatric: Denies: Anxiety, Depression, Homicidal Ideations, Suicidal Ideations Hematologic/ Lymphatic: Denies: Easy Bruising, Easy Bleeding VTE Information - Inpt Only VTE Present on Admission: No VTE Mechan Device Prophylaxis: Knee High MARIUM Hose VTE Pharm Prophylaxis ordered?: No Reason prophylaxis not ordered:: Treatment Not Indicated Patient Problems: Active and Suspected Problems (Last Updated 02/13/19 @ 19:08 by Ronnie Buenrostro DO) Debility (Acute) Community acquired pneumonia (Acute) Adenovirus as the cause of diseases classified elsewhere (Acute) Heart failure with preserved ejection fraction (Acute) Tobacco abuse (Acute) - Physical Exam General: Alert, Oriented x3, Cooperative HEENT: Atraumatic, PERRLA, EOMI, Normocephalic Neck: Supple, No JVD, Negative Carotid Bruits Lungs: Clear to auscultation, Normal air movement Cardiovascular: Regular rate, No murmurs Abdomen: Bowel Sounds Present, Soft, Non Tender Extremities: No edema, Capillary Refill Less than 3 Seconds, - - 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 Skin: No rashes, No breakdown Musculoskeletal: No Tenderness to Palpation of Joints or Extremities Neurological: Cranial nerves II-XII grossly intact Psych/Mental Status: Normal Affect, Appropriate Vital Signs Temp Pulse Resp BP Pulse Ox 98.3 F 105 H 18 151/62 H 94 02/15/19 18:15 02/15/19 18:15 02/15/19 18:15 02/15/19 18:15 02/15/19 18:15 Oxygen Delivery Method Room Air Weight: 57.833 kg Body Mass Index (BMI) 24.9 Assessment/Plan All Active Problems (Last Updated 02/13/19 @ 19:08 by Ronnie Buenrostro DO) Sepsis (Acute) Diastolic CHF (Acute) Debility (Acute) Community acquired pneumonia (Acute) Adenovirus as the cause of diseases classified elsewhere (Acute) Heart failure with preserved ejection fraction (Acute) Tobacco abuse (Acute) Thoracic aortic aneurysm, ruptured (Resolved) Pneumonia (Acute) Squamous cell carcinoma of skin (Resolved) 78 year old male with below past medical history hospitalized for sepsis, acute respiratory failure secondary to community acquired pneumonia secondary to Adenovirus, complicated by acute on chronic diastolic heart failure, hypokalemia, admitted to TCU with debility, here for rehabilitation, strengthening, prior to discharge home with spouse. Debility - PT/OT. Pain - Tylenol 1000MG Q6H PRN mild pain. Bowel - Miralax 17GM daily, Senokot 1 tablet BID, Dulcolax 10MG MN daily PRN. Pneumonia vaccination - Administer Prevnar 13 and/or Pneumovax 23 as needed. DVT prophylaxis - Not necessary, already anticoagulated. Atrial Fibrillation - Metoprolol 100MG BID, Diltiazem 120MG Q12H, Amiodarone 200MG TID thru 02/17/2019, 200MG BID thru 03/03/2019, then 200MG daily, Warfarin 3MG daily, follow INR. Vitamin D deficiency - D3 2000IU daily. Acute on chronic diastolic heart failure - Metoprolol 100MG BID, Lasix 40MG BID. COPD - Duoneb 3ML nebulized Q6H. Hypothyroidism - Levothyroxine 75MCG daily. Coronary Artery Disease - Metoprolol 100MG BID, Ramipril 10MG BID, NTG 0.4MG Q5M PRN chest pain. Hypertension - Metoprolol 100MG BID, Diltiazem 120MG Q12H, Ramipril 10MG BID, Lasix 40MG BID. Hypokalemia - K-Dur 40MEQ daily.
--- NOTE | 2019-02-15 20:57 | HP.PCM_ITS ---
Problem List (1) Debility Status: Acute (2) Community acquired pneumonia Status: Acute (3) Adenovirus as the cause of diseases classified elsewhere Status: Acute (4) Heart failure with preserved ejection fraction Status: Acute (5) COPD (chronic obstructive pulmonary disease) Status: Chronic (6) Sepsis Status: Acute (7) Pulmonary embolism Status: Chronic (8) Atrial fibrillation Status: Chronic (9) Coronary artery disease Status: Chronic (10) Hypertension Status: Chronic (11) Tobacco abuse Status: Acute (12) Ruptured abdominal aortic aneurysm Status: Chronic (13) Hypothyroidism Status: Chronic History of Present Illness Date of Admission: 02/15/19 Chief Complaint: Here for rehabilitation, strengthening, prior to discharge home with spouse. The patient is a 78 year old Male with below past medical history presented to [facility] Emergency Department 02/09/2019 with cough, shortness of breath. 4 days of cough, shortness of breath, patient believed he has pneumonia. EKG atrial fibrillation, rate 99, mild lateral ST depression. WBC normal with left shift, Hemoglobin 12.5. Glucose 162, BUN 29, Cr 1.26, INR 3.5, Troponin 0.015. Lactic Acid 2.6. Blood cultures sent. Chest X-ray showed right lower lobe infiltrate. Rocephin, Azithromycin, Aerosols, IV fluid bolus given. 02/09/2019 Admit to Hospital. Pancultured. Rocephin, Azithromycin, oxygen, aerosols for community acquired pneumonia. IV Fluids for acute kidney injury. 02/11/2019 Dr. Hernandez recommended stopping antibiotics if blood cultures negative. Diuresis for acute on chronic diastolic congestive heart failure. Rate contr/Amiodarone per cardiology. Oxygen, BiPAP as needed for rescue. Replete Potassium. 02/11/2019 Echo showed left ventricular systolic function normal. EF 55%. Severe concentric left ventricular hypertrophy. Right Ventricular systolic pressure 34mm HG. IV Lasix for congestive heart failure secondary to community acquired pneumonia. Respiratory panel positive Adenovirus. Cardizem added, titrated for rate control of atrial fibrillation. 02/15/2019 Admit to TCU with debility, here for rehabilitation, strengthening, prior to discharge home with spouse. 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10 Cold (Chronic) J00 Benign essential HTN (Chronic) I10 History of tobacco use (Chronic) Z87.891 Atrial fibrillation (Chronic) I48.91 Allergies No Known Allergies Allergy (Verified 05/26/18 08:01) Home Medications: Ambulatory Orders Medication Instructions Recorded cholecalciferol (vitamin D3) 2,000 2,000 unit PO QDAY 04/23/18 unit capsule levothyroxine 75 mcg capsule 75 mcg PO QDAY 04/23/18 nitroglycerin 0.4 mg sublingual 0.4 mg SUBLINGUAL Q5-15M PRN 04/23/18 tablet Potassium Chloride [K-Dur] 40 meq PO DAILY 02/09/19 Ramipril [Altace] 10 mg PO BID 02/09/19 Acetaminophen [Tylenol Tablet] 650 mg PO Q6H PRN PRN tablet 02/15/19 Amiodarone HCl [Cordarone] 200 mg PO DAILY 02/15/19 Diltiazem CD [Cardizem CD] 120 mg PO Q12 02/15/19 Furosemide [Lasix] 40 mg PO BID@1000,1800 02/15/19 Ipratropium/Albuterol Sulfate 3 ml INHALATION Q6H.RT 02/15/19 [Duoneb] Metoprolol Tartrate [Lopressor 100 mg PO BID 02/15/19 (beta zahida)] Warfarin [Coumadin] 3 mg PO DAILY@1700 02/15/19 Surgical History: Surgical History (Last Updated 04/23/18 @ 08:45 by Vanessa Knutson) Hx of replacement of aortic valve (Chronic) Z95.2 historyamputation right hand Surgical History: angioplasty, - - Thoracic aortic [id number] Status post aortic valve replacement Psychiatric History: No pertinent psych hx Lives: Spouse/ Significant Other Smoking Status: Former smoker Tobacco Use: Non-smoker Alcohol: None Drugs: None - *Family History Maternal Family History: Family History (Last Updated 04/23/18 @ 08:47 by Vanessa Knutson) Grandfather Diabetes Brother Heart disease History Items: No pertinent history Paternal Family History: Family History (Last Updated 04/23/18 @ 08:47 by Vanessa Knutson) Grandfather Diabetes Brother Heart disease History Items: No pertinent history Review of Systems Constitutional: Denies: Chills, Fever, Weight Change HEENT: Denies: Head Aches, Sinus Congestion, Sinus Drainage Cardiovascular: Denies: Chest Pain, Palpitations Respiratory: Denies: Cough, Shortness of breath at rest, Sputum production Gastrointestinal: Denies: Abdominal Pain, Nausea, Vomiting Genitourinary: Denies: Dysuria Musculoskeletal: Denies: Joint Pain, Joint Tenderness Skin: Denies: Rash, Wounds Neurological: Denies: Numbness, Tingling, Focal weakness Psychiatric: Denies: Anxiety, Depression, Homicidal Ideations, Suicidal Ideations Hematologic/ Lymphatic: Denies: Easy Bruising, Easy Bleeding VTE Information - Inpt Only VTE Present on Admission: No VTE Mechan Device Prophylaxis: Knee High MARIUM Hose VTE Pharm Prophylaxis ordered?: No Reason prophylaxis not ordered:: Treatment Not Indicated Patient Problems: Active and Suspected Problems (Last Updated 02/13/19 @ 19:08 by Ronnie Buenrostro DO) Debility (Acute) Community acquired pneumonia (Acute) Adenovirus as the cause of diseases classified elsewhere (Acute) Heart failure with preserved ejection fraction (Acute) Tobacco abuse (Acute) - Physical Exam General: Alert, Oriented x3, Cooperative HEENT: Atraumatic, PERRLA, EOMI, Normocephalic Neck: Supple, No JVD, Negative Carotid Bruits Lungs: Clear to auscultation, Normal air movement Cardiovascular: Regular rate, No murmurs Abdomen: Bowel Sounds Present, Soft, Non Tender Extremities: No edema, Capillary Refill Less than 3 Seconds, - - 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 Skin: No rashes, No breakdown Musculoskeletal: No Tenderness to Palpation of Joints or Extremities Neurological: Cranial nerves II-XII grossly intact Psych/Mental Status: Normal Affect, Appropriate Vital Signs Temp Pulse Resp BP Pulse Ox 98.3 F 105 H 18 151/62 H 94 02/15/19 18:15 02/15/19 18:15 02/15/19 18:15 02/15/19 18:15 02/15/19 18:15 Oxygen Delivery Method Room Air Weight: 57.833 kg Body Mass Index (BMI) 24.9 Assessment/Plan All Active Problems (Last Updated 02/13/19 @ 19:08 by Ronnie Buenrostro DO) Sepsis (Acute) Diastolic CHF (Acute) Debility (Acute) Community acquired pneumonia (Acute) Adenovirus as the cause of diseases classified elsewhere (Acute) Heart failure with preserved ejection fraction (Acute) Tobacco abuse (Acute) Thoracic aortic aneurysm, ruptured (Resolved) Pneumonia (Acute) Squamous cell carcinoma of skin (Resolved) 78 year old male with below past medical history hospitalized for sepsis, acute respiratory failure secondary to community acquired pneumonia secondary to Adenovirus, complicated by acute on chronic diastolic heart failure, hypokalemia, admitted to TCU with debility, here for rehabilitation, strengthening, prior to discharge home with spouse. * Debility - PT/OT. * Pain - Tylenol 1000MG Q6H PRN mild pain. * Bowel - Miralax 17GM daily, Senokot 1 tablet BID, Dulcolax 10MG TN daily PRN. * Pneumonia vaccination - Administer Prevnar 13 and/or Pneumovax 23 as needed. * DVT prophylaxis - Not necessary, already anticoagulated. * Atrial Fibrillation - Metoprolol 100MG BID, Diltiazem 120MG Q12H, Amiodarone 200MG TID thru 02/17/2019, 200MG BID thru 03/03/2019, then 200MG daily, Warfarin 3MG daily, follow INR. * Vitamin D deficiency - D3 2000IU daily. * Acute on chronic diastolic heart failure - Metoprolol 100MG BID, Lasix 40MG BID. * COPD - Duoneb 3ML nebulized Q6H. * Hypothyroidism - Levothyroxine 75MCG daily. * Coronary Artery Disease - Metoprolol 100MG BID, Ramipril 10MG BID, NTG 0.4MG Q5M PRN chest pain. * Hypertension - Metoprolol 100MG BID, Diltiazem 120MG Q12H, Ramipril 10MG BID, Lasix 40MG BID. * Hypokalemia - K-Dur 40MEQ daily.
[2019-02-15 23:20] VITALS: BP 126/68; PULSE 109
[2019-02-15] MEDS: Amiodarone 200 MG Tablet PO (23:20)
[2019-02-15] MEDS: Metoprolol Tartrate 100 MG Tablet PO (23:20)
[2019-02-15] MEDS: Ramipril 10 MG Capsule PO (23:21)
[2019-02-16] VITALS (7 sets, daily range): BP systolic 126–142; BP diastolic 55–78; PULSE 67–88; RESP 16–18; TEMP 36.3; O2SAT 93–97
[2019-02-16] MEDS: Amiodarone 200 MG Tablet PO ×3 (06:51→20:39)
[2019-02-16] MEDS: Ramipril 10 MG Capsule PO ×2 (06:51→17:56)
[2019-02-16] MEDS: Levothyroxine 75 MCG Tablet PO (06:51)
[2019-02-16] MEDS: Senna Tablet 1 TABLET PO ×2 (06:51→17:56)
[2019-02-16] MEDS: dilTIAZem CD 120 MG Capsule PO ×2 (06:51→17:56)
[2019-02-16] MEDS: Metoprolol Tartrate 100 MG Tablet PO ×2 (06:57→17:56)
[2019-02-16] MEDS: Ipratropium/Albuterol Sulfate 3 ML AMPUL.NEB INHALATION ×3 (07:18→20:05)
[2019-02-16 07:29] LABS: Absolute Lymphocyte Count 1.12 X10^3/ul (0.83-4.51); Absolute Neutrophil Count 5.5 X10^3/uL (2.0-7.7); Basophil# 0.04 X10^3/uL; Basophil% 0.5 % (0-1); Eosinophil# 0.31 X10^3/uL; Hematocrit 36.2 % (40-54); Hemoglobin 11.6 g/dl (13.0-16.5); Lymphocyte # 1.12 X10^3/ul (4.0); Lymphocyte % 14.3 % (19-41); Mean Corpuscular Hgb 27.5 pg (27.0-32.0); Mean Corpuscular Volume 85.8 fL (80-94); Mean Platelet Vol. 10.2 fl (6.2-12.0); Monocyte# 0.75 X10^3/uL; Monocyte% 9.6 % (0-10); Neutrophil # 5.52 X10^3/uL (2.7-7.7); Neutrophil % 70.7 % (47-70); Platelet Count 271 K/mm3 (150-450); RBC Distribution Width SD 47.4 fl (35.1-43.9); Red Blood Count 4.22 M/mm3 (4.6-6.2); White Blood Count 7.8 K/mm3 (4.4-11.0)
[2019-02-16 07:30] LABS: POSITIVE COUNT NO; POSITIVE DIFFERENTIAL NO; POSITIVE MORPHOLOGY NO
[2019-02-16 07:35] LABS: Anion Gap 6 (5-15); BUN 31 mg/dL (7-18); Calcium,Total 8.5 mg/dL (8.5-10.1); Chloride 106 mmol/L (98-107); Creatinine, Serum 1.24 mg/dL (0.70-1.30); EST Glomerular Filtration Rate 60 mL/min (>60); Est Glom Filt Rate - Afr Amer 73 mL/min (>60); Estimated Creatinine Clearance 35.28 ml/min; Glucose 96 mg/dL (74-106); Potassium 4.6 mmol/L (3.5-5.1); Sodium Level 140 mmol/L (136-145)
[2019-02-16] MEDS: Tuberculin,Purif.prot.deriv. 50 TU/ML Vial 5 ML ID (11:01)
[2019-02-16] MEDS: Furosemide 40 MG Tablet PO ×2 (11:01→17:56)
--- NOTE | 2019-02-16 16:06 | NURSING ---
All care provided in Pt's room d/t isolation precautions.
--- NOTE | 2019-02-16 21:00 | NURSING ---
All care this shift provided in room due to Isolation.
[2019-02-17] MEDS: Amiodarone 200 MG Tablet PO ×3 (06:52→20:12)
[2019-02-17] MEDS: Ramipril 10 MG Capsule PO ×2 (06:53→17:18)
[2019-02-17] MEDS: Levothyroxine 75 MCG Tablet PO (06:53)
[2019-02-17] MEDS: Senna Tablet 1 TABLET PO ×2 (06:53→17:19)
[2019-02-17] MEDS: dilTIAZem CD 120 MG Capsule PO ×2 (06:55→17:18)
[2019-02-17 06:56] VITALS: BP 139/54; PULSE 71
[2019-02-17] MEDS: Metoprolol Tartrate 100 MG Tablet PO ×2 (06:56→17:18)
[2019-02-17] MEDS: Furosemide 40 MG Tablet PO ×2 (09:08→17:18)
--- NOTE | 2019-02-17 11:12 | NURSING ---
All care provided in pt room d/t isolation precautions.
[2019-02-17 13:18] VITALS: PULSE 58; RESP 16; O2SAT 95
[2019-02-17] MEDS: Ipratropium/Albuterol Sulfate 3 ML AMPUL.NEB INHALATION ×2 (13:18→19:12)
[2019-02-17 14:25] VITALS: BP 118/80; PULSE 85; RESP 16; TEMP 36.6; O2SAT 95
[2019-02-17 17:18] VITALS: BP 118/80; PULSE 85
[2019-02-17 19:12] VITALS: PULSE 72; RESP 16; O2SAT 93
[2019-02-17 20:00] VITALS: PULSE 66; RESP 16; O2SAT 93
--- NOTE | 2019-02-18 02:15 | NURSING ---
All care for this shift provided in room due to Isolation.
[2019-02-18 05:51] LABS: International Normalized Ratio 2.6; Prothrombin Time (Protime)PT. 28.2 SECONDS (11.7-14.9)
[2019-02-18] MEDS: Amiodarone 200 MG Tablet PO ×2 (06:06→17:29)
[2019-02-18] MEDS: Ramipril 10 MG Capsule PO ×2 (06:06→17:29)
[2019-02-18] MEDS: Levothyroxine 75 MCG Tablet PO (06:06)
[2019-02-18] MEDS: dilTIAZem CD 120 MG Capsule PO ×2 (06:07→17:29)
[2019-02-18 06:12] VITALS: BP 156/70; PULSE 80
[2019-02-18] MEDS: Metoprolol Tartrate 100 MG Tablet PO ×2 (06:12→17:31)
[2019-02-18] MEDS: Furosemide 40 MG Tablet PO ×2 (09:01→17:29)
--- NOTE | 2019-02-18 10:30 | PCM.PN.RX ---
<Alejandro Rowell D - Last Filed: 02/18/19 10:30> Progress Note - Pharmacy Subjective: TCU Admission Objective: Allergies No Known Allergies Allergy (Verified 05/26/18 08:01) Current Medications Generic Name Dose Route Start Last Admin Trade Name Freq PRN Reason Stop Dose Admin Acetaminophen 1,000 mg 02/15/19 21:13 Tylenol PO Q6H PRN PRN MILD PAIN (1-3/10) Albuterol Sulfate 2 puff 02/18/19 07:37 Ventolin Hfa (Sp) INHALATION Q6H PRN PRN SOB &/OR WHEEZING Amiodarone HCl 200 mg 02/18/19 06:00 02/18/19 06:06 Cordarone PO 03/03/19 18:01 200 mg BID SILVERIO Administration Amiodarone HCl 200 mg 03/04/19 06:00 Cordarone PO DAILY SILVERIO Bisacodyl 10 mg 02/15/19 18:33 Dulcolax RECTAL DAILY PRN constipation Cholecalciferol 2,000 unit 02/16/19 08:00 02/18/19 09:01 Vitamin D PO 2,000 unit DAILY@0800 SILVERIO Administration Diltiazem HCl 120 mg 02/16/19 06:00 02/18/19 06:07 Cardizem Cd PO 120 mg Q12 SILVERIO Administration Furosemide 40 mg 02/16/19 10:00 02/18/19 09:01 Lasix PO 40 mg BID@1000,1800 SILVERIO Administration Levothyroxine Sodium 75 mcg 02/16/19 06:00 02/18/19 06:06 Synthroid PO 75 mcg DAILY@0600 SILVERIO Administration Metoprolol Tartrate 100 mg 02/15/19 22:00 02/18/19 06:12 Lopressor (Beta Ilan) PO 100 mg BID SILVERIO Administration Nitroglycerin 0.4 mg 02/15/19 19:35 Nitrostat SUBLINGUAL Q5M PRN PAIN Polyethylene Glycol 17 gm 02/16/19 06:00 02/18/19 06:05 Miralax PO Not Given DAILY [facility] Potassium Chloride 40 meq 02/16/19 08:00 02/18/19 09:01 K-Dur PO 40 meq DAILY@0800 SILVERIO Administration Ramipril 10 mg 02/15/19 22:00 02/18/19 06:06 Altace PO 10 mg BID SILVERIO Administration Senna 1 tablet 02/16/19 06:00 02/18/19 06:06 Senokot PO Not Given BID [facility] Tuberculin PPD 5 tu 02/23/19 10:00 Tubersol, Aplisol, Ppd ID 02/23/19 10:01 X1 ONE Warfarin Sodium 3 mg 02/16/19 17:00 02/17/19 17:17 Coumadin (Pbkc) PO 3 mg DAILY@1700 [facility] Administration Problem List (Last Updated 02/13/19 @ 19:08 by Ronnie Buenrostro DO) Debility (Acute) Community acquired pneumonia (Acute) Adenovirus as the cause of diseases classified elsewhere (Acute) Heart failure with preserved ejection fraction (Acute) COPD (chronic obstructive pulmonary disease) (Chronic) Coronary artery disease (Chronic) Hypertension (Chronic) Tobacco abuse (Acute) Vital Signs Temp Pulse Resp BP Pulse Ox 97.9 F 80 16 156/70 H 93 02/17/19 14:25 02/18/19 06:12 02/17/19 20:00 02/18/19 06:12 02/17/19 20:00 Oxygen Delivery Method Room Air Weight: 55.537 kg Body Mass Index (BMI) 24.9 Sodium 140 mmol/L (136-145) 02/16/19 06:55 Potassium 4.6 mmol/L (3.5-5.1) 02/16/19 06:55 Chloride 106 mmol/L (98-107) 02/16/19 06:55 Carbon Dioxide 28.0 mmol/L (21.0-32.0) 02/16/19 06:55 Anion Gap 6 (5-15) 02/16/19 06:55 BUN 31 mg/dL (7-18) H 02/16/19 06:55 Creatinine 1.24 mg/dL (0.70-1.30) 02/16/19 06:55 Est GFR (MDRD) Af Amer 73 mL/min (>60) 02/16/19 06:55 Est GFR (MDRD) Non-Af 60 mL/min (>60) 02/16/19 06:55 BUN/Creatinine Ratio 25.0 RATIO (10-20) H 02/16/19 06:55 Glucose 96 mg/dL (74-106) 02/16/19 06:55 Assessment/Plan: 1) Pain APAP for mild pain. Continue to monitor daily pain scores, prn medication use. 2) AFib/HTN/Heart Failure/CAD Amiodarone, diltiazem, metoprolol, ramipril, furosemide/KCL, warfarin, prn ntg. Continue to monitor BP/HR, renal function, electrolytes, PT/INR, s/s bleeding/clot, prn medication use, s/s chest pain. 3) Hypothyroidism Levothyroxine. Continue to monitor s/s hyper/hypothyroidism. Psychotropic Medications: None Unnecessary Medications: None Bowel Regimen: 4) Senna, PEG, prn bisacodyl. Continue to monitor prn medication use, for constipation/diarrhea. Date of Note:: 02/18/19 - Provider Comments Provider responsibility: Provider responsible to enter orders to implement recommendations <Aidan Santos Chi - Last Filed: 02/18/19 17:42> Progress Note - Pharmacy Subjective: [] Objective: Allergies No Known Allergies Allergy (Verified 05/26/18 08:01) Current Medications Generic Name Dose Route Start Last Admin Trade Name Freq PRN Reason Stop Dose Admin Acetaminophen 1,000 mg 02/15/19 21:13 Tylenol PO Q6H PRN PRN MILD PAIN (1-3/10) Albuterol Sulfate 2 puff 02/18/19 07:37 Ventolin Hfa (Sp) INHALATION Q6H PRN PRN SOB &/OR WHEEZING Amiodarone HCl 200 mg 02/18/19 06:00 02/18/19 17:29 Cordarone PO 03/03/19 18:01 200 mg BID SILVERIO Administration Amiodarone HCl 200 mg 03/04/19 06:00 Cordarone PO DAILY SILVERIO Bisacodyl 10 mg 02/15/19 18:33 Dulcolax RECTAL DAILY PRN constipation Cholecalciferol 2,000 unit 02/16/19 08:00 02/18/19 09:01 Vitamin D PO 2,000 unit DAILY@0800 SILVERIO Administration Diltiazem HCl 120 mg 02/16/19 06:00 02/18/19 17:29 Cardizem Cd PO 120 mg Q12 SILVERIO Administration Furosemide 40 mg 02/16/19 10:00 02/18/19 17:29 Lasix PO 40 mg BID@1000,1800 SILVERIO Administration Levothyroxine Sodium 75 mcg 02/16/19 06:00 02/18/19 06:06 Synthroid PO 75 mcg DAILY@0600 SILVERIO Administration Metoprolol Tartrate 100 mg 02/15/19 22:00 02/18/19 17:31 Lopressor (Beta Ilan) PO 100 mg BID SILVERIO Administration Nitroglycerin 0.4 mg 02/15/19 19:35 Nitrostat SUBLINGUAL Q5M PRN PAIN Polyethylene Glycol 17 gm 02/16/19 06:00 02/18/19 06:05 Miralax PO Not Given DAILY [facility] Potassium Chloride 40 meq 02/16/19 08:00 02/18/19 09:01 K-Dur PO 40 meq DAILY@0800 SILVERIO Administration Ramipril 10 mg 02/15/19 22:00 02/18/19 17:29 Altace PO 10 mg BID SILVERIO Administration Senna 1 tablet 02/16/19 06:00 02/18/19 17:29 Senokot PO 1 tablet BID SILVERIO Administration Tuberculin PPD 5 tu 02/23/19 10:00 Tubersol, Aplisol, Ppd ID 02/23/19 10:01 X1 ONE Warfarin Sodium 3 mg 02/16/19 17:00 02/18/19 17:32 Coumadin (Pbkc) PO 3 mg DAILY@1700 SILVERIO Administration Problem List (Last Updated 02/13/19 @ 19:08 by Ronnie Buenrostro DO) Debility (Acute) Community acquired pneumonia (Acute) Adenovirus as the cause of diseases classified elsewhere (Acute) Heart failure with preserved ejection fraction (Acute) COPD (chronic obstructive pulmonary disease) (Chronic) Coronary artery disease (Chronic) Hypertension (Chronic) Tobacco abuse (Acute) Vital Signs Temp Pulse Resp BP Pulse Ox 97.9 F 66 18 139/62 H 96 02/18/19 15:27 02/18/19 17:32 02/18/19 15:27 02/18/19 17:31 02/18/19 15:27 Oxygen Delivery Method Room Air Weight: 55.537 kg Body Mass Index (BMI) 24.9 Sodium 140 mmol/L (136-145) 02/16/19 06:55 Potassium 4.6 mmol/L (3.5-5.1) 02/16/19 06:55 Chloride 106 mmol/L (98-107) 02/16/19 06:55 Carbon Dioxide 28.0 mmol/L (21.0-32.0) 02/16/19 06:55 Anion Gap 6 (5-15) 02/16/19 06:55 BUN 31 mg/dL (7-18) H 02/16/19 06:55 Creatinine 1.24 mg/dL (0.70-1.30) 02/16/19 06:55 Est GFR (MDRD) Af Amer 73 mL/min (>60) 02/16/19 06:55 Est GFR (MDRD) Non-Af 60 mL/min (>60) 02/16/19 06:55 BUN/Creatinine Ratio 25.0 RATIO (10-20) H 02/16/19 06:55 Glucose 96 mg/dL (74-106) 02/16/19 06:55 Assessment/Plan: Psychotropic Medications: Unnecessary Medications: Bowel Regimen: - Provider Comments Provider responsibility: Provider responsible to enter orders to implement recommendations Provider Comments to Recommendations by Pharmacy: Agree
--- NOTE | 2019-02-18 15:09 | CASEMGMT ---
Patient completed assessment with ELVIN. His son was also present. Patient wishes to return home at discharge. Jayda ALEGRE
[2019-02-18 15:27] VITALS: BP 139/62; PULSE 58; RESP 18; TEMP 36.6; O2SAT 96
--- NOTE | 2019-02-18 17:26 | NURSING ---
All care given in room due to pt in precautions.
[2019-02-18] MEDS: Senna Tablet 1 TABLET PO (17:29)
[2019-02-18 17:31] VITALS: BP 139/62; PULSE 66
[2019-02-18 17:32] VITALS: PULSE 66
[2019-02-18 21:30] VITALS: PULSE 70; RESP 16; O2SAT 95
[2019-02-19] MEDS: Amiodarone 200 MG Tablet PO ×2 (06:12→17:52)
[2019-02-19] MEDS: Levothyroxine 75 MCG Tablet PO (06:12)
[2019-02-19] MEDS: Senna Tablet 1 TABLET PO (06:12)
[2019-02-19] MEDS: Ramipril 10 MG Capsule PO ×2 (06:12→17:52)
[2019-02-19] MEDS: dilTIAZem CD 120 MG Capsule PO ×2 (06:13→17:52)
[2019-02-19 06:20] VITALS: BP 137/61; PULSE 66
[2019-02-19] MEDS: Metoprolol Tartrate 100 MG Tablet PO ×2 (06:20→17:51)
[2019-02-19] MEDS: Furosemide 40 MG Tablet PO ×2 (09:17→17:52)
[2019-02-19 15:49] VITALS: BP 117/51; PULSE 56; RESP 14; TEMP 36.9; O2SAT 99
[2019-02-19 17:50] VITALS: PULSE 74
[2019-02-19 17:51] VITALS: BP 117/51; PULSE 74
[2019-02-19 20:00] VITALS: PULSE 67; RESP 16; O2SAT 98
[2019-02-20] MEDS: Amiodarone 200 MG Tablet PO ×2 (06:35→17:26)
[2019-02-20 06:38] VITALS: BP 132/59; PULSE 65
[2019-02-20] MEDS: Metoprolol Tartrate 100 MG Tablet PO ×2 (06:38→17:27)
[2019-02-20] MEDS: Ramipril 10 MG Capsule PO ×2 (06:39→17:26)
[2019-02-20] MEDS: Levothyroxine 75 MCG Tablet PO (06:39)
[2019-02-20] MEDS: dilTIAZem CD 120 MG Capsule PO ×2 (06:40→17:26)
[2019-02-20] MEDS: Furosemide 40 MG Tablet PO ×2 (08:15→17:27)
--- NOTE | 2019-02-20 13:30 | CASEMGMT ---
Plan of care meeting held on this date with pt, and son present. Pt is participating in PT and OT and progressing well. No d/c date set at this time. Pt plans to return home with his at time of d/c. Potential d/c next week. Will reassess at that time. Pt is agreeable. Continue with treatment plan at this time. CHANNING Burns
[2019-02-20 16:00] VITALS: BP 116/54; PULSE 54; RESP 18; TEMP 36.5; O2SAT 95
[2019-02-20 17:27] VITALS: BP 116/54; PULSE 54
[2019-02-21 05:51] VITALS: BP 139/61; PULSE 4
[2019-02-21] MEDS: Metoprolol Tartrate 100 MG Tablet PO ×2 (05:51→17:11)
[2019-02-21] MEDS: dilTIAZem CD 120 MG Capsule PO ×2 (05:52→17:09)
[2019-02-21] MEDS: Levothyroxine 75 MCG Tablet PO (05:52)
[2019-02-21] MEDS: Ramipril 10 MG Capsule PO ×2 (05:52→17:10)
[2019-02-21] MEDS: Amiodarone 200 MG Tablet PO ×2 (05:52→17:11)
[2019-02-21 05:56] LABS: International Normalized Ratio 4.1
--- NOTE | 2019-02-21 08:43 | NURSING ---
INR reviewed, order to hold current dose and recheck INR in AM.
[2019-02-21] MEDS: Furosemide 40 MG Tablet PO ×2 (09:20→17:15)
[2019-02-21 09:34] VITALS: BP 125/51; PULSE 55; RESP 18; TEMP 36.7; O2SAT 95
[2019-02-21 09:36] VITALS: PULSE 55; RESP 16
[2019-02-21 15:48] VITALS: BP 113/47; PULSE 55; RESP 16; TEMP 36.4; O2SAT 93
[2019-02-21 17:11] VITALS: BP 113/47; PULSE 55
[2019-02-21] MEDS: Senna Tablet 1 TABLET PO (17:15)
[2019-02-21] MEDS: Acetaminophen 500 MG Tablet 1000 MG PO (22:27)
[2019-02-22] MEDS: Amiodarone 200 MG Tablet PO ×2 (05:47→17:39)
[2019-02-22 05:48] VITALS: BP 143/58; PULSE 67
[2019-02-22] MEDS: dilTIAZem CD 120 MG Capsule PO ×2 (05:48→17:39)
[2019-02-22] MEDS: Ramipril 10 MG Capsule PO ×2 (05:48→17:39)
[2019-02-22] MEDS: Metoprolol Tartrate 100 MG Tablet PO ×2 (05:48→17:39)
[2019-02-22] MEDS: Levothyroxine 75 MCG Tablet PO (05:49)
[2019-02-22 05:56] LABS: Prothrombin Time (Protime)PT. 40.3 SECONDS (11.7-14.9)
[2019-02-22 06:05] LABS: International Normalized Ratio 4.1
[2019-02-22] MEDS: Furosemide 40 MG Tablet PO ×2 (08:25→17:39)
[2019-02-22 15:07] VITALS: BP 136/55; PULSE 61; RESP 18; TEMP 36.8; O2SAT 97
[2019-02-22 17:39] VITALS: BP 136/55; PULSE 61
[2019-02-22 20:09] VITALS: PULSE 68; RESP 16; O2SAT 97
[2019-02-23 05:34] VITALS: BP 146/63; PULSE 67
[2019-02-23] MEDS: Amiodarone 200 MG Tablet PO ×2 (05:34→17:12)
[2019-02-23] MEDS: Metoprolol Tartrate 100 MG Tablet PO ×2 (05:34→17:11)
[2019-02-23] MEDS: Ramipril 10 MG Capsule PO (05:35)
[2019-02-23] MEDS: dilTIAZem CD 120 MG Capsule PO ×2 (05:35→17:11)
[2019-02-23] MEDS: Levothyroxine 75 MCG Tablet PO (05:36)
[2019-02-23 08:13] LABS: Absolute Lymphocyte Count 1.89 X10^3/ul (0.83-4.51); Absolute Neutrophil Count 7.3 X10^3/uL (2.0-7.7); Basophil# 0.03 X10^3/uL; Basophil% 0.3 % (0-1); Hematocrit 38.4 % (40-54); Hemoglobin 12.5 g/dl (13.0-16.5); Lymphocyte # 1.89 X10^3/ul (4.0); Lymphocyte % 18.9 % (19-41); Mean Corp Hgb Conc 32.6 g/gl (32-36); Mean Corpuscular Hgb 27.9 pg (27.0-32.0); Mean Corpuscular Volume 85.7 fL (80-94); Mean Platelet Vol. 9.6 fl (6.2-12.0); Monocyte# 0.69 X10^3/uL; Monocyte% 6.9 % (0-10); Neutrophil # 7.27 X10^3/uL (2.7-7.7); Neutrophil % 72.7 % (47-70); Platelet Count 276 K/mm3 (150-450); RBC Distribution Width CV 14.7 % (11.6-14.6); RBC Distribution Width SD 46.5 fl (35.1-43.9); Red Blood Count 4.48 M/mm3 (4.6-6.2)
[2019-02-23 08:16] LABS: POSITIVE COUNT NO; POSITIVE DIFFERENTIAL NO; POSITIVE MORPHOLOGY NO
[2019-02-23 08:25] LABS: International Normalized Ratio 3.2; Prothrombin Time (Protime)PT. 32.7 SECONDS (11.7-14.9)
[2019-02-23 08:32] LABS: Anion Gap 9 (5-15); BUN 50 mg/dL (7-18); BUN/Creat Ratio 26.7 RATIO (10-20); Calcium,Total 8.7 mg/dL (8.5-10.1); Chloride 105 mmol/L (98-107); Creatinine, Serum 1.87 mg/dL (0.70-1.30); EST Glomerular Filtration Rate 37 mL/min (>60); Est Glom Filt Rate - Afr Amer 45 mL/min (>60); Glucose 93 mg/dL (74-106); Potassium 4.5 mmol/L (3.5-5.1); Sodium Level 142 mmol/L (136-145)
[2019-02-23 08:45] VITALS: PULSE 56; RESP 18; O2SAT 95
--- NOTE | 2019-02-23 08:58 | NURSING ---
PT has coarse crackles to rub on front upper right lung and post right side. reported to vineet hansen.
[2019-02-23] MEDS: Tuberculin,Purif.prot.deriv. 50 TU/ML Vial 5 ML ID (10:41)
--- NOTE | 2019-02-23 15:15 | RAD_ITS ---
STUDY: X-RAY CHEST REASON FOR EXAM: Male, 78 years old. Cough. Right-sided adventitial lung sounds. TECHNIQUE: Single AP portable view of the chest. COMPARISON: 02/11/2019. FINDINGS: There is mild chronic interstitial prominence in the lungs. There is asymmetric density in the right mid and lower lung alonzo which is improved from the previous study. Current findings are consistent with residual from previously demonstrated infiltrates. Acutely recurrent infiltrates cannot be excluded entirely. There is no demonstrated pleural abnormality. There is mild cardiac enlargement. There are sternotomy wires and surgical clips suggesting previous CABG. Normal mediastinum and jamal. Normal visualized pulmonary arteries. There is atherosclerotic calcification of the aortic arch with tortuosity. There are no visualized acute osseous abnormalities. There are degenerative changes of the left shoulder. There is a hiatal hernia. RAD/Chest 1 View IMPRESSION: Mild residual or recurrent infiltration in the right mid and lower lung alonzo. Chronic interstitial changes. Mild cardiomegaly. Hiatal hernia. Electronically Signed: Keshav Roland MD at 5:42 EDT , Service support ,
[2019-02-23 15:39] VITALS: BP 145/63; PULSE 55; RESP 18; TEMP 36.6; O2SAT 97
[2019-02-23 16:12] VITALS: PULSE 56; RESP 16
[2019-02-23] MEDS: Ipratropium/Albuterol Sulfate 3 ML AMPUL.NEB INHALATION (16:12)
[2019-02-23 17:11] VITALS: BP 145/63; PULSE 60
[2019-02-24] VITALS (7 sets, daily range): BP systolic 125–129; BP diastolic 54–58; PULSE 54–62; RESP 16–18; TEMP 36.6; O2SAT 97–98
[2019-02-24] MEDS: Ramipril 10 MG Capsule PO (06:21)
[2019-02-24] MEDS: Furosemide 40 MG Tablet PO (06:21)
[2019-02-24] MEDS: Amiodarone 200 MG Tablet PO ×2 (06:21→17:42)
[2019-02-24] MEDS: Levothyroxine 75 MCG Tablet PO (06:21)
[2019-02-24] MEDS: Metoprolol Tartrate 100 MG Tablet PO ×2 (06:21→17:41)
[2019-02-24] MEDS: dilTIAZem CD 120 MG Capsule PO ×2 (06:22→17:42)
[2019-02-24] MEDS: Ipratropium/Albuterol Sulfate 3 ML AMPUL.NEB INHALATION ×3 (07:42→19:37)
[2019-02-24 08:51] LABS: International Normalized Ratio 2.9; Prothrombin Time (Protime)PT. 30.3 SECONDS (11.7-14.9)
[2019-02-24] MEDS: Cefdinir 300 MG Capsule PO (17:41)
[2019-02-25 05:55] LABS: International Normalized Ratio 2.8; Prothrombin Time (Protime)PT. 29.2 SECONDS (11.7-14.9)
[2019-02-25 06:09] LABS: Anion Gap 5 (5-15); BUN 55 mg/dL (7-18); BUN/Creat Ratio 28.4 RATIO (10-20); Calcium,Total 8.3 mg/dL (8.5-10.1); Chloride 111 mmol/L (98-107); Creatinine, Serum 1.94 mg/dL (0.70-1.30); EST Glomerular Filtration Rate 36 mL/min (>60); Est Glom Filt Rate - Afr Amer 43 mL/min (>60); Estimated Creatinine Clearance 22.55 ml/min; Glucose 89 mg/dL (74-106); Potassium 4.7 mmol/L (3.5-5.1); Sodium Level 143 mmol/L (136-145)
[2019-02-25] MEDS: Amiodarone 200 MG Tablet PO ×2 (06:13→18:29)
[2019-02-25] MEDS: Furosemide 40 MG Tablet PO (06:13)
[2019-02-25] MEDS: Cefdinir 300 MG Capsule PO ×2 (06:13→16:26)
[2019-02-25] MEDS: Levothyroxine 75 MCG Tablet PO (06:13)
[2019-02-25] MEDS: dilTIAZem CD 120 MG Capsule PO ×2 (06:13→18:29)
[2019-02-25] MEDS: Ramipril 10 MG Capsule PO (06:13)
[2019-02-25 06:15] VITALS: BP 146/50; PULSE 60
[2019-02-25] MEDS: Metoprolol Tartrate 100 MG Tablet PO ×2 (06:15→18:29)
[2019-02-25 06:50] VITALS: PULSE 61; RESP 16; O2SAT 97
[2019-02-25] MEDS: Ipratropium/Albuterol Sulfate 3 ML AMPUL.NEB INHALATION ×2 (06:50→20:00)
--- NOTE | 2019-02-25 07:52 | US_ITS ---
STUDY: RENAL ULTRASOUND - COMPLETE REASON FOR EXAM: Male, 78 years old. Abnormal labs. TECHNIQUE: Ultrasound evaluation of the kidneys was performed with real-time and static alvarado-scale imaging. COMPARISON: None. FINDINGS: RIGHT KIDNEY: 9.4 x 4.5 x 5.7 cm, normal cortical thickness 1.8 cm, normal cortical echotexture. There is no mass, cyst, calculus or hydronephrosis. LEFT KIDNEY: 3 left-sided renal cyst with sonographically simple cystic features measuring 4.5 x 2.5 x 3.4 cm, 3.0 x 1.6 x 2.8 cm, and 1.9 x 1.6 x 1.7 cm. Normal cortical thickness and echotexture, thickness 1.2 cm. The kidney measures 9.0 x 4.4 x 4.7 cm. There is no mass, calculus or hydronephrosis. BLADDER: The urinary bladder is normal in caliber, contour and wall thickness. US/Kidney and Bladder IMPRESSION: Sonographically simple appearing left renal cysts. Benign features. Otherwise normal bilateral kidneys, and normal urinary bladder. Electronically Signed: Caleb Ugalde MD at 14:02 EDT Tel , Service support ,
--- NOTE | 2019-02-25 12:41 | NURSING ---
Addendum entered by Bharati Lamas 02/25/19 16:25: Dr Santos aware of U/S results. no new orders received. Original Note: Taken to radiology for U/S of kidney and bladder.
[2019-02-25 14:10] VITALS: BP 142/63; PULSE 60; RESP 14; TEMP 36.2; O2SAT 97
[2019-02-25 18:29] VITALS: BP 140/49; PULSE 60
[2019-02-25 18:33] VITALS: PULSE 60; RESP 16; O2SAT 96
[2019-02-25 20:05] VITALS: PULSE 62; RESP 16; O2SAT 96
[2019-02-26 06:07] LABS: Anion Gap 7 (5-15); BUN 45 mg/dL (7-18); BUN/Creat Ratio 27.1 RATIO (10-20); Calcium,Total 8.3 mg/dL (8.5-10.1); Chloride 112 mmol/L (98-107); Creatinine, Serum 1.66 mg/dL (0.70-1.30); EST Glomerular Filtration Rate 43 mL/min (>60); Est Glom Filt Rate - Afr Amer 52 mL/min (>60); Estimated Creatinine Clearance 26.36 ml/min; Glucose 83 mg/dL (74-106); Potassium 4.5 mmol/L (3.5-5.1); Sodium Level 145 mmol/L (136-145)
[2019-02-26] MEDS: Cefdinir 300 MG Capsule PO ×2 (06:12→17:52)
[2019-02-26] MEDS: dilTIAZem CD 120 MG Capsule PO ×2 (06:12→17:52)
[2019-02-26] MEDS: Amiodarone 200 MG Tablet PO ×2 (06:12→17:52)
[2019-02-26] MEDS: Levothyroxine 75 MCG Tablet PO (06:12)
[2019-02-26 06:13] VITALS: BP 135/50; PULSE 62
[2019-02-26] MEDS: Metoprolol Tartrate 100 MG Tablet PO ×2 (06:13→17:52)
[2019-02-26 07:02] VITALS: PULSE 52; RESP 16; O2SAT 95
[2019-02-26] MEDS: Ipratropium/Albuterol Sulfate 3 ML AMPUL.NEB INHALATION (07:02)
--- NOTE | 2019-02-26 08:38 | NURSING ---
PER THERAPY, PT UP AB YAO IN ROOM.
--- NOTE | 2019-02-26 08:44 | DCINST_ITS ---
- Discharge Diagnoses Current Active Problems: Current Active and Chronic Problems (Last Updated 02/13/19 @ 19:08 by Ronnie Buenrostro DO) Debility (Acute) Community acquired pneumonia (Acute) Adenovirus as the cause of diseases classified elsewhere (Acute) Heart failure with preserved ejection fraction (Acute) COPD (chronic obstructive pulmonary disease) (Chronic) Coronary artery disease (Chronic) Hypertension (Chronic) Tobacco abuse (Acute) You will use the following diet at home:: No restrictions, Regular Your food should be the consistency of: Regular Your liquids should be the consistency of: Regular/Thin Discharge Activity: Return to Normal Activity, May Shower, Use Walker May resume sexual activity in: No Restrictions Weight Bearing Status: Weight bearing as tolerated Call your doctor if you observe: Fever of 101 or Higher, Inability to urinate, Shortness of breath, Dizziness, Chest pain, Uncontrolled pain Allergies/Adverse Reactions: Allergies No Known Allergies Allergy (Verified 05/26/18 08:01) Medications to take at Discharge cholecalciferol (vitamin D3) 2,000 unit capsule 2,000 unit PO QDAY 04/23/18 levothyroxine 75 mcg capsule 75 mcg PO QDAY 04/23/18 nitroglycerin 0.4 mg sublingual tablet 0.4 mg SUBLINGUAL Q5-15M PRN 04/23/18 Potassium Chloride [K-Dur] 40 meq PO DAILY 02/09/19 Ramipril [Altace] 10 mg PO BID 02/09/19 Amiodarone HCl [Cordarone] 200 mg PO DAILY 02/15/19 Ipratropium/Albuterol Sulfate [Duoneb] 3 ml INHALATION Q6H.RT 02/15/19 Acetaminophen [Tylenol] 1,000 mg PO Q6H PRN PRN tablet 02/26/19 Amiodarone HCl [Cordarone] 200 mg PO DAILY tablet 02/26/19 Diltiazem CD [Cardizem CD] 120 mg PO Q12 #60 capsule 02/26/19 Furosemide [Lasix] 20 mg PO DAILY tablet 02/26/19 Ipratropium/Albuterol Sulfate [Duoneb] 3 ml INHALATION Q6HWA.RT #120 ampul.neb 02/26/19 Metoprolol Tartrate [Lopressor (beta zahida)] 100 mg PO BID #60 tablet 02/26/19 Mineral Oil/Petrolatum,White [Eucerin] 1 applic TOPICAL QHS jar 02/26/19 Ramipril [Altace] 10 mg PO BID capsule 02/26/19 Warfarin [Coumadin] 1 mg PO DAILY@1700 #30 tablet 02/26/19 The following prescriptions were given: Ipratropium/Albuterol Sulfate [Duoneb] 3 ml INHALATION Q6HWA.RT #120 ampul.neb Diltiazem CD [Cardizem CD] 120 mg PO Q12 #60 capsule Warfarin [Coumadin] 1 mg PO DAILY@1700 #30 tablet Metoprolol Tartrate [Lopressor (beta zahida)] 100 mg PO BID #60 tablet Orders to be completed after discharge: Basic Metabolic Profile (BMP) Time Frame: 2 Days, Location: Laboratory Prothrombin Time w/INR Time Frame: 2 Days, Location: Laboratory Primary Care Physician: Ihsan Modi MD [Primary Care Provider] - Please follow up with your Primary Care Physician in: 1 week. Test Results: Test results from this visit will be discussed in further detail at your follow- up appointment, if applicable. Please Follow Up With: Ihsan Modi MD Please Follow Up With: Boo Jones MD When: 2 weeks. Proposed Discharge Date: 03/02/19
--- NOTE | 2019-02-26 08:44 | PCM.DC.SUM ---
Discharge Date and Diagnosis - Problem List Patient Problems: Active and Suspected Problems (Last Updated 02/13/19 @ 19:08 by Ronnie Buenrostro DO) Debility (Acute) Community acquired pneumonia (Acute) Adenovirus as the cause of diseases classified elsewhere (Acute) Heart failure with preserved ejection fraction (Acute) Tobacco abuse (Acute) Date of Admission: 02/15/19 Date of Discharge: 03/02/19 - Primary Discharge Diagnosis Active and Suspected Problems (Last Updated 02/13/19 @ 19:08 by Ronnie Buenrostro DO) Debility (Acute) Community acquired pneumonia (Acute) Adenovirus as the cause of diseases classified elsewhere (Acute) Heart failure with preserved ejection fraction (Acute) Tobacco abuse (Acute) - Secondary Discharge Diagnosis Chronic Problems (Last Updated 02/13/19 @ 19:08 by Ronnie Buenrostro DO) COPD (chronic obstructive pulmonary disease) (Chronic) Coronary artery disease (Chronic) Hypertension (Chronic) S/P PTCA (percutaneous transluminal coronary angioplasty) (Chronic) 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 of replacement of aortic valve (Chronic) Pulmonary embolism (Chronic) Hypothyroidism (Chronic) CAD (coronary artery disease) (Chronic) Cold (Chronic) Benign essential HTN (Chronic) History of tobacco use (Chronic) Atrial fibrillation (Chronic) Hospital Course and Treatment Imaging Results: 02/15/19 18:34 Diet: Cardiac/Low Cholesterol Food consistency:: Regular Liquid Consistency:: Regular/Thin Dietary Modifications:: Fluid Restricted Diet Is pt able to select menu?: Yes Diet Comments: [id number] Clinical Impression(s) from Imaging Studies Chest X-Ray 02/23/19 15:15 IMPRESSION: Mild residual or recurrent infiltration in the right mid and lower lung alonzo. Chronic interstitial changes. Mild cardiomegaly. Hiatal hernia. Electronically Signed: Keshav Roland MD at 5:42 EDT , Service support , Renal Ultrasound 02/25/19 07:52 IMPRESSION: Sonographically simple appearing left renal cysts. Benign features. Otherwise normal bilateral kidneys, and normal urinary bladder. Electronically Signed: Caleb Ugalde MD at 14:02 EDT Tel , Service support , Labs (Last 48 Hours) 02/24/19 02/25/19 02/25/19 08:16 05:05 05:05 PT 30.3 H 29.2 H INR 2.9 2.8 Sodium 143 Potassium 4.7 Chloride 111 H Carbon Dioxide 27.0 Anion Gap 5 BUN 55 H Creatinine 1.94 H Estim Creat Clear Calc 22.55 Est GFR (MDRD) Af Amer 43 L Est GFR (MDRD) Non-Af 36 L BUN/Creatinine Ratio 28.4 H Glucose 89 Calcium 8.3 L 02/26/19 05:05 PT INR Sodium 145 Potassium 4.5 Chloride 112 H Carbon Dioxide 26.0 Anion Gap 7 BUN 45 H Creatinine 1.66 H Estim Creat Clear Calc 26.36 Est GFR (MDRD) Af Amer 52 L Est GFR (MDRD) Non-Af 43 L BUN/Creatinine Ratio 27.1 H Glucose 83 Calcium 8.3 L Operations: None Procedures: None Summary of Care Provided: The patient is a 78 year old Male with below past medical history hospitalized for sepsis, acute respiratory failure secondary to community acquired pneumonia secondary to Adenovirus, complicated by acute on chronic diastolic heart failure, hypokalemia, admitted to TCU with debility, here for rehabilitation, strengthening, prior to discharge home with spouse. On TCU, resident had bronchitis treated with 7 days of Cefdinir. He developed acute kidney injury, Renal ultrasound normal, Lasix and Ramipril held, then restarted, will need monitoring as outpatient. INR supratherapeutic, warfarin dose adjusted, will need INR monitoring as outpatient. Discharge home with spouse. Patient Problems: Active and Suspected Problems (Last Updated 02/13/19 @ 19:08 by Ronnie Buenrostro DO) Debility (Acute) Community acquired pneumonia (Acute) Adenovirus as the cause of diseases classified elsewhere (Acute) Heart failure with preserved ejection fraction (Acute) Tobacco abuse (Acute) - Physical Exam Vital Signs Temp Pulse Resp BP Pulse Ox 97.1 F L 62 16 135/50 H 96 02/25/19 14:10 02/26/19 06:13 02/25/19 20:05 02/26/19 06:13 02/25/19 20:05 Oxygen Delivery Method Room Air Weight: 55.429 kg Body Mass Index (BMI) 24.9 Intake and Output for Last 24 Hours 02/24/19 02/25/19 02/26/19 23:59 23:59 23:59 Intake Total 1060 / 1060 780 / 780 100 / 100 Balance 1060 / 1060 780 / 780 100 / 100 Laboratory Tests Past 24 Hrs 02/26/19 05:05 Sodium 145 Potassium 4.5 Chloride 112 H Carbon Dioxide 26.0 Anion Gap 7 BUN 45 H Creatinine 1.66 H Estim Creat Clear Calc 26.36 Est GFR (MDRD) Af Amer 52 L Est GFR (MDRD) Non-Af 43 L BUN/Creatinine Ratio 27.1 H Glucose 83 Calcium 8.3 L Discharge Diet: No Restrictions Discharge Activity: Return to Normal Activity, May Shower, Use Walker May resume sexual activity in: No Restrictions Weight Bearing Status: Weight bearing as tolerated Call your doctor if you observe: Fever of 101 or Higher, Inability to urinate, Shortness of breath, Dizziness, Chest pain, Uncontrolled pain Home Medications: Medications to take at Discharge cholecalciferol (vitamin D3) 2,000 unit capsule 2,000 unit PO QDAY 04/23/18 levothyroxine 75 mcg capsule 75 mcg PO QDAY 04/23/18 nitroglycerin 0.4 mg sublingual tablet 0.4 mg SUBLINGUAL Q5-15M PRN 04/23/18 Potassium Chloride [K-Dur] 40 meq PO DAILY 02/09/19 Ramipril [Altace] 10 mg PO BID 02/09/19 Amiodarone HCl [Cordarone] 200 mg PO DAILY 02/15/19 Ipratropium/Albuterol Sulfate [Duoneb] 3 ml INHALATION Q6H.RT 02/15/19 Acetaminophen [Tylenol] 1,000 mg PO Q6H PRN PRN tablet 02/26/19 Amiodarone HCl [Cordarone] 200 mg PO DAILY tablet 02/26/19 Diltiazem CD [Cardizem CD] 120 mg PO Q12 #60 capsule 02/26/19 Furosemide [Lasix] 20 mg PO DAILY tablet 02/26/19 Ipratropium/Albuterol Sulfate [Duoneb] 3 ml INHALATION Q6HWA.RT #120 ampul.neb 02/26/19 Metoprolol Tartrate [Lopressor (beta zahida)] 100 mg PO BID #60 tablet 02/26/19 Mineral Oil/Petrolatum,White [Eucerin] 1 applic TOPICAL QHS jar 02/26/19 Ramipril [Altace] 10 mg PO BID capsule 02/26/19 Warfarin [Coumadin] 1 mg PO DAILY@1700 #30 tablet 02/26/19 Following Prescrptions Were Given to Patient: Ipratropium/Albuterol Sulfate [Duoneb] 3 ml INHALATION Q6HWA.RT #120 ampul.neb Diltiazem CD [Cardizem CD] 120 mg PO Q12 #60 capsule Warfarin [Coumadin] 1 mg PO DAILY@1700 #30 tablet Metoprolol Tartrate [Lopressor (beta zahida)] 100 mg PO BID #60 tablet Other Amb Orders: Basic Metabolic Profile (BMP) Time Frame: 2 Days, Location: Laboratory Prothrombin Time w/INR Time Frame: 2 Days, Location: Laboratory Primary Care Physician: Ihsan Modi MD [Primary Care Provider] - Please follow up with your Primary Care Physician in: 1 week. Please Follow Up With: Ihsan Modi MD Please Follow Up With: Boo Jones MD When: 2 weeks. Disposition: Home Minutes spent on discharge:: 35 Patient Condition:: Stable Medical Necessity - Tobacco Use Smoking Status: Former smoker Tobacco Use: Non-smoker Meaningful Use Info Meaningful Use Diagnoses (Choose all that apply): None applicable
[2019-02-26] MEDS: Furosemide 20 MG Tablet PO (09:55)
[2019-02-26 15:35] VITALS: BP 136/52; PULSE 52; RESP 14; TEMP 37.1; O2SAT 97
--- NOTE | 2019-02-26 16:14 | CHAPLAIN ---
Type of Pastoral Visit _x__ Initial Visit ___ Follow-up Visit ___ On-call Visit ___ General Patient Visit ___ Spiritual Assessment ___ Family Conference ___ Bereavement ___ Rapid Response ___ Code Blue ___ Other (describe below) Pastoral Care Referral From _x__ Patient ___ Family ___ Nurse ___ Physician ___ Recreation Leader ___ Promotional Marketing Analyst ___ Other (describe below) Sacrament/Intervention _x__ Active listening ___ Anointing ___ Druze ___ Bereavement ___ Communion ___ Trupti exploration ___ _x__ Life review _x__ Prayer ___ Reconciliation ___ Sacrament of Sick ___ Supportive presence ___ Wedding ___ Other (describe below) Pastoral Comments
[2019-02-26] MEDS: Ramipril 10 MG Capsule PO (17:51)
[2019-02-26 17:52] VITALS: BP 136/52; PULSE 80
[2019-02-27 05:28] VITALS: BP 147/55; PULSE 60
[2019-02-27] MEDS: Amiodarone 200 MG Tablet PO ×2 (05:28→17:35)
[2019-02-27] MEDS: Ramipril 10 MG Capsule PO ×2 (05:28→17:34)
[2019-02-27] MEDS: Metoprolol Tartrate 100 MG Tablet PO (05:28)
[2019-02-27] MEDS: dilTIAZem CD 120 MG Capsule PO (05:28)
[2019-02-27] MEDS: Furosemide 20 MG Tablet PO (05:28)
[2019-02-27] MEDS: Levothyroxine 75 MCG Tablet PO (05:28)
[2019-02-27] MEDS: Cefdinir 300 MG Capsule PO ×2 (05:28→17:35)
[2019-02-27 11:18] VITALS: PULSE 60; RESP 16; O2SAT 96
--- NOTE | 2019-02-27 11:30 | MDS.RN ---
Information for the mds was obtained from review of the clinical record, interview of resident, staff, and direct observation of resident's care.
[2019-02-27 15:22] VITALS: BP 127/61; PULSE 52; RESP 18; TEMP 36.9; O2SAT 94
[2019-02-27 15:24] VITALS: BP 142/48; PULSE 55; RESP 16; TEMP 36.8; O2SAT 97
[2019-02-27 17:38] VITALS: BP 127/61; PULSE 52
--- NOTE | 2019-02-27 17:39 | NURSING ---
dr pascal updated on Bp 127/61 hr 52, new order to hold cardizem and lopressor tonight. dr pascal adjusted lopressor.
[2019-02-28] MEDS: Furosemide 20 MG Tablet PO (05:09)
[2019-02-28] MEDS: Ramipril 10 MG Capsule PO ×2 (05:09→17:18)
[2019-02-28] MEDS: Cefdinir 300 MG Capsule PO ×2 (05:09→17:18)
[2019-02-28] MEDS: Levothyroxine 75 MCG Tablet PO (05:09)
[2019-02-28] MEDS: dilTIAZem CD 120 MG Capsule PO ×2 (05:09→17:17)
[2019-02-28] MEDS: Amiodarone 200 MG Tablet PO ×2 (05:09→17:18)
[2019-02-28 05:12] VITALS: BP 151/57; PULSE 67
[2019-02-28] MEDS: Metoprolol Tartrate 50 MG Tablet PO ×2 (05:12→17:17)
[2019-02-28 06:11] LABS: International Normalized Ratio 1.7; Prothrombin Time (Protime)PT. 20.1 SECONDS (11.7-14.9)
[2019-02-28 10:00] VITALS: PULSE 65; RESP 16; O2SAT 95
[2019-02-28 15:24] VITALS: BP 137/46; PULSE 62; RESP 14; TEMP 36.8; O2SAT 94
[2019-02-28 17:17] VITALS: BP 137/46; PULSE 62
[2019-03-01] MEDS: dilTIAZem CD 120 MG Capsule PO ×2 (05:06→17:42)
[2019-03-01 05:07] VITALS: BP 157/52; PULSE 63
[2019-03-01] MEDS: Amiodarone 200 MG Tablet PO ×2 (05:07→17:42)
[2019-03-01] MEDS: Furosemide 20 MG Tablet PO (05:07)
[2019-03-01] MEDS: Metoprolol Tartrate 50 MG Tablet PO ×2 (05:07→17:42)
[2019-03-01] MEDS: Ramipril 10 MG Capsule PO ×2 (05:07→17:42)
[2019-03-01] MEDS: Cefdinir 300 MG Capsule PO ×2 (05:07→17:42)
[2019-03-01] MEDS: Levothyroxine 75 MCG Tablet PO (05:07)
--- NOTE | 2019-03-01 13:23 | CASEMGMT ---
Social Work Discharge is planned for 03/02/19. PT will be returning home with his spouse. Pt and son are agreeable to d/c date. Pt does not required continued therapy at this time. Pt to be d/c with aerosol treatments and pt states he does not have a nebulizer at home. No other DME needed. SW spoke with pt and she is agreeable to d/c tomorrow and will provide needed transportation. [place] [facility] [place] and [facility] [place]bul[place] pt room today. CHANNING Burns
[2019-03-01 17:42] VITALS: PULSE 61
[2019-03-01 21:00] VITALS: PULSE 58; RESP 18; O2SAT 94
[2019-03-02] MEDS: dilTIAZem CD 120 MG Capsule PO (06:51)
[2019-03-02] MEDS: Cefdinir 300 MG Capsule PO (06:51)
[2019-03-02 06:52] VITALS: BP 128/60; PULSE 63
[2019-03-02] MEDS: Ramipril 10 MG Capsule PO (06:52)
[2019-03-02] MEDS: Furosemide 20 MG Tablet PO (06:52)
[2019-03-02] MEDS: Metoprolol Tartrate 50 MG Tablet PO (06:52)
[2019-03-02] MEDS: Amiodarone 200 MG Tablet PO (06:52)
[2019-03-02] MEDS: Levothyroxine 75 MCG Tablet PO (06:52)
[2019-03-02 07:00] VITALS: PULSE 63; RESP 16; O2SAT 95
[2019-03-02 07:36] LABS: Hematocrit 36.4 % (40-54); Hemoglobin 11.8 g/dl (13.0-16.5); Mean Corp Hgb Conc 32.4 g/gl (32-36); Mean Corpuscular Hgb 27.8 pg (27.0-32.0); Mean Corpuscular Volume 85.6 fL (80-94); Platelet Count 185 K/mm3 (150-450); RBC Distribution Width CV 14.7 % (11.6-14.6); RBC Distribution Width SD 45.9 fl (35.1-43.9); Red Blood Count 4.25 M/mm3 (4.6-6.2)
[2019-03-02 07:40] LABS: Scan Indicated on CBC? Y/N NO
[2019-03-02 07:48] LABS: Anion Gap 5 (5-15); BUN 42 mg/dL (7-18); BUN/Creat Ratio 24.6 RATIO (10-20); Calcium,Total 8.4 mg/dL (8.5-10.1); Chloride 111 mmol/L (98-107); Creatinine, Serum 1.71 mg/dL (0.70-1.30); EST Glomerular Filtration Rate 41 mL/min (>60); Est Glom Filt Rate - Afr Amer 50 mL/min (>60); Estimated Creatinine Clearance 25.58 ml/min; Glucose 89 mg/dL (74-106); Potassium 4.5 mmol/L (3.5-5.1); Sodium Level 141 mmol/L (136-145)
[2019-03-02 08:00] VITALS: BP 127/84; PULSE 86; RESP 18; TEMP 36.6; O2SAT 98
--- NOTE | 2019-03-12 08:21 | MDS.RN ---
Information for the mds was obtained from review of the clinical record, interview of resident, staff, and direct observation of resident's care.
== END 2019-03-02 11:30 | disposition home or self-care (01) | DRG 948 ==
PROVIDERS: Admitting Provider Family Medicine Geriatric Medicine; Family Provider Family Medicine; PCP Family Medicine; Visit Provider Family Medicine Geriatric Medicine
DX: R53.81 Other malaise (principal); I50.32 Chronic diastolic (congestive) heart failure; J44.0 Chronic obstructive pulmonary disease with (acute) lower respiratory infection; N17.9 Acute kidney failure, unspecified; I25.10 Atherosclerotic heart disease of native coronary artery without angina pectoris; E03.9 Hypothyroidism, unspecified; E87.6 Hypokalemia; I11.0 Hypertensive heart disease with heart failure; I48.2 Chronic atrial fibrillation; Z86.711 Personal history of pulmonary embolism; Z87.891 Personal history of nicotine dependence; Z87.01 Personal history of pneumonia (recurrent); J20.9 Acute bronchitis, unspecified
CPT/HCPCS: 36415; 71045; 76770; 80048; 85025; 85027; 85610; 94640; 97110; 97116; 97162; 97166; 97530; 97535

== ENCOUNTER → 2019-03-13 11:29 | Outpatient (CLI) | payer MEDICARE, OTHER, SELFPAY ==
[2019-02-15 18:15] VITALS: BMI 24.9
[2019-03-13 14:42] LABS: Anion Gap 10 (5-15); BUN 26 mg/dL (7-18); BUN/Creat Ratio 19.7 RATIO (10-20); Calcium,Total 8.4 mg/dL (8.5-10.1); Chloride 107 mmol/L (98-107); Creatinine, Serum 1.32 mg/dL (0.70-1.30); EST Glomerular Filtration Rate 56 mL/min (>60); Est Glom Filt Rate - Afr Amer 68 mL/min (>60); Glucose 84 mg/dL (74-106); Potassium 3.9 mmol/L (3.5-5.1); Sodium Level 144 mmol/L (136-145)
== END ==
PROVIDERS: Family Provider Family Medicine; PCP Family Medicine; Referring Provider Family Medicine; Visit Provider Family Medicine
DX: I10 Essential (primary) hypertension (principal)
CPT/HCPCS: 36415; 80048

== ENCOUNTER → 2019-03-26 11:21 | Outpatient (CLI) | payer MEDICARE, OTHER, SELFPAY ==
[2019-03-22 10:56] VITALS: BMI 25.7
[2019-03-26 12:11] LABS: Absolute Neutrophil Count 4.4 X10^3/uL (2.0-7.7); Basophil# 0.01 X10^3/uL; Basophil% 0.2 % (0-1); Eosinophils% 1.6 % (0-5); Hematocrit 34.8 % (40-54); Lymphocyte % 20.2 % (19-41); Mean Corp Hgb Conc 31.6 g/gl (32-36); Mean Corpuscular Hgb 27.2 pg (27.0-32.0); Mean Corpuscular Volume 85.9 fL (80-94); Monocyte# 0.57 X10^3/uL; Monocyte% 8.9 % (0-10); Neutrophil # 4.44 X10^3/uL (2.7-7.7); Neutrophil % 68.8 % (47-70); Platelet Count 247 K/mm3 (150-450); RBC Distribution Width CV 14.9 % (11.6-14.6); Red Blood Count 4.05 M/mm3 (4.6-6.2); White Blood Count 6.4 K/mm3 (4.4-11.0)
[2019-03-26 12:12] LABS: POSITIVE COUNT NO; POSITIVE DIFFERENTIAL NO; POSITIVE MORPHOLOGY NO
[2019-03-26 12:42] LABS: ALB/GLOB Ratio 0.9 RATIO (0.9-2.4); AST(SGOT) 17 U/L (15-37); Alanine Aminotransfer ALT/SGPT 18 U/L (16-61); Albumin, Serum 3.1 g/dL (3.2-5.0); Alkaline Phosphatase 75 U/L (45-117); Anion Gap 10 (5-15); BUN 19 mg/dL (7-18); BUN/Creat Ratio 15.4 RATIO (10-20); Calcium,Total 8.3 mg/dL (8.5-10.1); Chloride 109 mmol/L (98-107); Creatinine, Serum 1.23 mg/dL (0.70-1.30); EST Glomerular Filtration Rate 61 mL/min (>60); Est Glom Filt Rate - Afr Amer 73 mL/min (>60); Globulin 3.6 g/dL (2.2-4.2); Glucose 84 mg/dL (74-106); Potassium 3.6 mmol/L (3.5-5.1); Protein, Total 6.7 g/dL (6.4-8.2); Sodium Level 150 mmol/L (136-145)
== END ==
PROVIDERS: Nurse Practitioner Adult Health; Family Provider Family Medicine; PCP Family Medicine; Referring Provider Family Medicine; Visit Provider Family Medicine
DX: R53.83 Other fatigue (principal)
CPT/HCPCS: 36415; 80053; 85025

== ENCOUNTER → 2019-05-15 11:31 | Outpatient (CLI) | payer MEDICARE, OTHER, SELFPAY ==
[2019-05-02 13:04] VITALS: BMI 24.7
[2019-05-15 15:22] LABS: Anion Gap 8 (5-15); BUN 24 mg/dL (7-18); BUN/Creat Ratio 17.9 RATIO (10-20); Calcium,Total 8.5 mg/dL (8.5-10.1); Chloride 106 mmol/L (98-107); Creatinine, Serum 1.34 mg/dL (0.70-1.30); EST Glomerular Filtration Rate 55 mL/min (>60); Est Glom Filt Rate - Afr Amer 66 mL/min (>60); Glucose 87 mg/dL (74-106); Sodium Level 144 mmol/L (136-145); Thyroid Stim Hormone (TSH) 3.64 uIU/mL (0.358-3.74)
== END ==
PROVIDERS: Family Provider Family Medicine; PCP Family Medicine; Referring Provider Family Medicine; Visit Provider Family Medicine
DX: I10 Essential (primary) hypertension (principal); E03.9 Hypothyroidism, unspecified
CPT/HCPCS: 36415; 80048; 84443

== ENCOUNTER → 2019-06-04 11:24 | Outpatient (CLI) | payer MEDICARE, OTHER, SELFPAY ==
[2019-05-02 13:04] VITALS: BMI 24.7
[2019-06-04 14:06] LABS: Anion Gap 6 (5-15); BUN 23 mg/dL (7-18); BUN/Creat Ratio 15.4 RATIO (10-20); Calcium,Total 8.3 mg/dL (8.5-10.1); Chloride 109 mmol/L (98-107); Creatinine, Serum 1.49 mg/dL (0.70-1.30); EST Glomerular Filtration Rate 49 mL/min (>60); Est Glom Filt Rate - Afr Amer 59 mL/min (>60); Glucose 91 mg/dL (74-106); Potassium 3.6 mmol/L (3.5-5.1); Sodium Level 143 mmol/L (136-145)
== END ==
PROVIDERS: Family Provider Family Medicine; PCP Family Medicine; Referring Provider Family Medicine; Visit Provider Family Medicine
DX: I10 Essential (primary) hypertension (principal)
CPT/HCPCS: 36415; 80048

== ENCOUNTER → 2019-06-11 10:54 | Outpatient (CLI) | payer MEDICARE, OTHER, SELFPAY ==
[2019-05-02 13:04] VITALS: BMI 24.7
--- NOTE | 2019-06-12 13:28 | PFT ---
INTRODUCTION: The patient is a 79-year-old male that presents for pulmonary function studies secondary to a diagnosis of shortness of breath. Respiratory therapy reports good patient effort. Bronchodilators were used during testing. INTERPRETATION: Forced expiration spirometry demonstrates no evidence of a large airways obstructive ventilatory defect. There was no significant response to aerosolized bronchodilators, based upon strict ATS criteria. However, the patient did have a rather robust mid flow bronchodilator response. Spirograms are of fair quality and plateau gradually. Body plethysmography was performed and reveals lung volumes to be within normal limits. Diffusing capacity by single breath CO was also within normal limits. IMPRESSION: Normal spirometry, lung volumes and diffusing capacity.
== END ==
PROVIDERS: Family Provider Family Medicine; PCP Family Medicine; Referring Provider Internal Medicine Cardiovascular Disease; Visit Provider Internal Medicine Cardiovascular Disease
DX: I25.10 Atherosclerotic heart disease of native coronary artery without angina pectoris (principal); I48.91 Unspecified atrial fibrillation; I11.0 Hypertensive heart disease with heart failure; I50.32 Chronic diastolic (congestive) heart failure; Z95.5 Presence of coronary angioplasty implant and graft; Z98.890 Other specified postprocedural states; Z79.899 Other long term (current) drug therapy
CPT/HCPCS: 94060; 94726; 94729

== ENCOUNTER → 2019-07-29 09:36 | Outpatient (CLI) | payer MEDICARE, OTHER, SELFPAY ==
[2019-05-02 13:04] VITALS: BMI 24.7
[2019-07-29 11:40] LABS: AST(SGOT) 19 U/L (15-37); Alanine Aminotransfer ALT/SGPT 16 U/L (16-61); Albumin, Serum 3.3 g/dL (3.2-5.0); Alkaline Phosphatase 86 U/L (45-117); Anion Gap 4 (5-15); BUN 27 mg/dL (7-18); BUN/Creat Ratio 15.9 RATIO (10-20); Bilirubin, Direct 0.11 mg/dL (0.00-0.30); Calcium,Total 8.9 mg/dL (8.5-10.1); Chloride 110 mmol/L (98-107); Cholesterol 159 mg/dL (200); EST Glomerular Filtration Rate 42 mL/min (>60); Est Glom Filt Rate - Afr Amer 50 mL/min (>60); Globulin 3.9 g/dL (2.2-4.2); Glucose 98 mg/dL (74-106); High Density Lipoprotein 54 mg/dL; Potassium 4.2 mmol/L (3.5-5.1); Protein, Total 7.2 g/dL (6.4-8.2); Sodium Level 144 mmol/L (136-145); T4 Free Direct 1.53 ng/dL (0.76-1.46); Thyroid Stim Hormone (TSH) 5.92 uIU/mL (0.358-3.74); Triglycerides 83 mg/dL; Very Low Density Lipoprotein 17 mg/dL (5-40)
== END ==
PROVIDERS: Family Provider Family Medicine; PCP Family Medicine; Referring Provider Internal Medicine Cardiovascular Disease; Visit Provider Internal Medicine Cardiovascular Disease
DX: I25.10 Atherosclerotic heart disease of native coronary artery without angina pectoris (principal); I48.91 Unspecified atrial fibrillation; I50.32 Chronic diastolic (congestive) heart failure; Z95.5 Presence of coronary angioplasty implant and graft
CPT/HCPCS: 36415; 80048; 80061; 80076; 84439; 84443

== ENCOUNTER → 2019-08-22 09:44 | Outpatient (CLI) | payer MEDICARE, OTHER, SELFPAY ==
[2019-05-02 13:04] VITALS: BMI 24.7
[2019-08-22 11:11] LABS: Anion Gap 8 (5-15); BUN 28 mg/dL (7-18); BUN/Creat Ratio 20.9 RATIO (10-20); Calcium,Total 8.6 mg/dL (8.5-10.1); Chloride 108 mmol/L (98-107); Creatinine, Serum 1.34 mg/dL (0.70-1.30); EST Glomerular Filtration Rate 55 mL/min (>60); Est Glom Filt Rate - Afr Amer 66 mL/min (>60); Glucose 97 mg/dL (74-106); Potassium 4.1 mmol/L (3.5-5.1); Sodium Level 143 mmol/L (136-145); T4 Free Direct 1.45 ng/dL (0.76-1.46); Thyroid Stim Hormone (TSH) 5.52 uIU/mL (0.358-3.74)
[2019-08-22 11:16] LABS: T4 Total, Thyroxin 12.9 ug/dL (4.5-12.1)
== END ==
PROVIDERS: Family Provider Family Medicine; PCP Family Medicine; Referring Provider Internal Medicine Cardiovascular Disease; Visit Provider Internal Medicine Cardiovascular Disease
DX: N18.2 Chronic kidney disease, stage 2 (mild) (principal); E03.9 Hypothyroidism, unspecified
CPT/HCPCS: 36415; 80048; 84436; 84439; 84443

== ENCOUNTER 2019-10-10 23:55 | Inpatient (IN) | payer MEDICARE, OTHER, SELFPAY ==
[2019-09-19 13:48] VITALS: BMI 25.2
[2019-10-10 23:56] VITALS: BP 180/52; PULSE 59; PULSE 69; RESP 14; RESP 16; TEMP 36.7; O2SAT 92; O2SAT 93; BMI 21.7
[2019-10-11] VITALS (24 sets, daily range): BP systolic 134–188; BP diastolic 50–75; PULSE 54–111; RESP 15–18; TEMP 36.3–37.1; O2SAT 86–99; BMI 22.1
--- NOTE | 2019-10-11 00:20 | RAD_ITS ---
HISTORY: s/p fallc/o rt hip pain EXAMINATION/TECHNIQUE: XR AP pelvis and right hip 3 views COMPARISON: CT abdomen and pelvis 12/11/2012 FINDINGS: Acute subcapital fracture of the right femoral neck with proximal displacement of the major distal fracture fragment by approximately 2 cm. 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 At this location. The right and left femoral acetabular joint spaces appear preserved. SI joints are not widened. Pubic rami are intact. Extensive atherosclerotic calcifications. Degenerative spondylosis of the lower lumbar spine RAD/HIP, UNI W/ Pelvis 2-3 Views IMPRESSION: 1. Acute, displaced subcapital fracture of the right femoral neck. 2. No hip dislocation. 3. Extensive atherosclerotic calcifications. at 0208 Reported and signed by: Preston Mora MD Electronically Signed: Preston Mora, at 2:06 EST Tel , Service support ,
--- NOTE | 2019-10-11 00:20 | ED.VIS.GEN ---
History of Present Illness Chief Complaint: Lower Extremity Injury Informant: Patient Narrative: She presents with right hip and buttock pain. He was standing on the steps walking upwards and lost his balance while he was carrying laundry. He fell onto his right buttock. He is having pain in the right buttock and hip. He was unable to get up as his family was worried. No home treatment. Brought in by EMS. He is on Coumadin for an aortic dissection remotely. No fevers or chills. He felt fine prior. Denies any injury elsewhere. He did not strike his head. - Past Medical History (1) Adenovirus as the cause of diseases classified elsewhere Status: Deleted (2) Debility Status: Deleted (3) Diastolic CHF Status: Inactive (4) Mixed hyperlipidemia Status: Chronic (5) Tobacco abuse Status: Chronic (6) Atherosclerotic heart disease of [place] coronary artery without angina pectoris Status: Chronic (7) Atrial fibrillation Status: Chronic (8) COPD (chronic obstructive pulmonary disease) Status: Chronic (9) Chronic heart failure with preserved ejection fraction Status: Chronic (10) Essential hypertension Status: Chronic (11) Hypothyroidism Status: Chronic (12) Presence of stent in coronary artery Status: Chronic Comment: PCI/ILANA of the of 2nd Diagonal instent restenosis 05/24/06 (13) Pulmonary embolism Status: Chronic (14) Tobacco dependence in remission Status: Chronic (15) History of aortic valve repair Status: Chronic (16) Hx of repair of ascending aorta Status: Chronic Comment: 32mm [place] graft (17) Squamous cell carcinoma of skin Status: Inactive (18) 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 Past Medical History - Allergies and Home Meds Allergies/Adverse Reactions: Allergies No Known Allergies Allergy (Verified 10/11/19 00:04) Prior records reviewed: Yes Past Medical History: - - Problem list Surgical History: angioplasty, - - Thoracic aortic [id number] Status post aortic valve replacement Smoking Status: Former smoker Alcohol: None Drugs: None - Family History Maternal Family History: Family History (Last Reviewed 09/19/19 @ 13:54 by Isabel Velazco) Grandfather Diabetes Brother Heart disease Family History: Reports: No pertinent history Paternal Family History: Family History (Last Reviewed 09/19/19 @ 13:54 by Isabel Velazco) Grandfather Diabetes Brother Heart disease Family History: Reports: No pertinent history Review of Systems General: Denies: Chills, Fever, Sweats Eyes: Denies: Visual changes - bilaterally, Diplopia ENT: Denies: Rhinorrhea, Sore throat Cardiovascular: Denies: Chest pain, Palpitations Respiratory: Denies: Dyspnea, Cough, Dyspnea on exertion Gastrointestinal: Denies: Abdominal pain, Nausea, Vomiting, Diarrhea, Melena, Hematochezia Genitourinary: Denies: Dysuria, Hematuria, Frequency Musculoskeletal: Reports: Extremity Pain. Denies: Back pain Skin: Denies: Rash, Wounds Neurological: Denies: Headache, Weakness, Numbness Physical Exam Vital Signs/Narrative: Vital Signs Temp Pulse Resp BP Pulse Ox 10/10/19 23:56 98.1 F 59 L 14 180/52 H 93 General: Well nourished, Well developed, No Acute Distress Head: Normocephalic, Atraumatic Eyes: Perrl, EOMI ENT: Moist mucous membranes, No rhinorrhea Neck: Supple, Nontender Cardiovascular: Regular rate, Regular rhythm, No murmurs Respiratory: No distress, CTA bilaterally, Chest nontender Abdomen: Soft, Nontender, Nondistended, Normal bowel sounds Back: Nontender, Normal Inspection Extremities: No edema, Tenderness - Numbness in the right proximal hip. Right lower extremity slightly shortened. Decreased range of motion secondary to pain. Normal pulses. No swelling or deformity.. Negative for: Nontender Skin: Normal color, No rash Neurological: Alert, Oriented x3, Cranial nerves II-XII grossly intact, Normal Strength, Normal Sensation Psychological: Normal affect, Normal Mood Diagnostic/Tx/Re-eval - Medical Decision Making X-ray of the right hip obtained.X-ray shows a hip fracture. Chest x-ray shows nothing acute. EKG shows sinus bradycardia at 55. Prolonged QT at 493. Potassium mildly low at 3.2. Chronic anemia 9.9. Mild chronic renal insufficiency noted. INR is elevated greater than 7. Discussed with orthopedics who wants to surgery today. Seen by the hospitalist. We will reverse his Coumadin levels and he will be admitted ED Disposition - Plan for ED Patient: Disposition: Acute Care Hospital [facility] Diagnosis: Hip fracture
--- NOTE | 2019-10-11 00:37 | RAD_ITS ---
HISTORY: s/p fall rt hip pain EXAMINATION/TECHNIQUE: XR Chest 1 View: Portable AP supine COMPARISON: 02/23/2019 FINDINGS: Cardiomegaly, unchanged. Bilateral chronic appearing interstitial thickening. No focal infiltrate and no overt vascular congestion on this supine exam. No pleural effusion or pneumothorax. Atherosclerotic, ectatic thoracic aorta. Previous CABG. Right axillary surgical clips. RAD/Chest 1 View (Portable) IMPRESSION: 1. No definite acute cardiopulmonary disease. 2. Cardiomegaly, unchanged. Previous median sternotomy. at 0203 Reported and signed by: Preston Mora MD Electronically Signed: Preston Mora, at 2:02 EST Tel , Service support ,
--- NOTE | 2019-10-11 00:38 | EKG12_ITS ---
Test Reason : DYSRHYTHMIA Blood Pressure : / mmHG Vent. Rate : 055 BPM Atrial Rate : 055 BPM P-R Int : 204 ms QRS Dur : 114 ms QT Int : 516 ms P-R-T Axes : 113 -42 068 degrees QTc Int : 493 ms Sinus bradycardia Left axis deviation Left ventricular hypertrophy with repolarization abnormality Prolonged QT Abnormal ECG Confirmed by VERONICA VICENTE ([id number]), social media editor JOHN SHAH ([id number]) on 10/15/2019 2:56:29 PM Referred By: Marely Pendleton Confirmed By:VERONICA VICENTE
[2019-10-11 00:57] LABS: Absolute Lymphocyte Count 1.35 X10^3/uL (0.83-4.51); Absolute Neutrophil Count 4.6 X10^3/uL (2.0-7.7); Basophil# 0.02 X10^3/uL; Basophil% 0.3 % (0-1); Eosinophil# 0.06 X10^3/uL; Eosinophils% 0.9 % (0-5); Hemoglobin 9.9 g/dL (13.0-16.5); Lymphocyte # 1.35 X10^3/ul (4.0); Lymphocyte % 19.5 % (19-41); Mean Corp Hgb Conc 31.9 g/dL (32-36); Mean Corpuscular Hgb 27.3 pg (27.0-32.0); Mean Corpuscular Volume 85.6 fL (80-94); Mean Platelet Vol. 10.1 fl (6.2-12.0); Monocyte# 0.86 X10^3/uL; Monocyte% 12.4 % (0-10); NRBC Flagged by Analyzer 0 % (0-5); Neutrophil # 4.58 X10^3/uL (2.7-7.7); Neutrophil % 66.3 % (47-70); Platelet Count 204 K/mm3 (150-450); RBC Distribution Width CV 14.3 % (11.6-14.6); RBC Distribution Width SD 44.5 fl (35.1-43.9); Red Blood Count 3.62 M/mm3 (4.6-6.2); White Blood Count 6.9 K/mm3 (4.4-11.0)
[2019-10-11 01:17] LABS: Anion Gap 2 (5-15); BUN 38 mg/dL (7-18); BUN/Creat Ratio 22.9 RATIO (10-20); Calcium,Total 8.5 mg/dL (8.5-10.1); Chloride 105 mmol/L (98-107); Creatinine, Serum 1.66 mg/dL (0.70-1.30); EST Glomerular Filtration Rate 43 mL/min (>60); Est Glom Filt Rate - Afr Amer 52 mL/min (>60); Estimated Creatinine Clearance 28.01 ml/min; Glucose 178 mg/dL (74-106); Potassium 3.2 mmol/L (3.5-5.1); Sodium Level 142 mmol/L (136-145)
[2019-10-11 01:19] LABS: Prothrombin Time (Protime)PT. 68.2 SECONDS (11.7-14.9)
[2019-10-11 01:42] LABS: International Normalized Ratio 7.9
--- NOTE | 2019-10-11 02:25 | PCM.HP.STD ---
Problem List (1) Mixed hyperlipidemia Status: Chronic (2) Chronic heart failure with preserved ejection fraction Status: Chronic (3) History of aortic valve repair Status: Chronic (4) Hx of repair of ascending aorta Status: Chronic Comment: 32mm Hemishield graft (5) Essential hypertension Status: Chronic (6) COPD (chronic obstructive pulmonary disease) Status: Chronic (7) Hypothyroidism Status: Chronic (8) Atrial fibrillation Status: Chronic Qualifiers: Atrial fibrillation type: unspecified Qualified Code(s): I48.91 - Unspecified atrial fibrillation History of Present Illness Date of Admission: 10/11/19 Chief Complaint: Fall, right hip pain. The patient is a 79 year old M patient with multiple medical comorbidities as mentioned above presented to the emergency room because of fall on the right hip pain. Patient was going upstairs last evening carrying laundry, lost his balance and landed on his right hip. Immediately, he started having right hip pain, sharp pain, 6 out of 10 in severity, aggravated by movement, no associated symptoms and no relieving factors. He denies any prodromal symptoms such as dizziness, lightheadedness, chest pain or shortness of breath. In the emergency department, blood pressure was slightly elevated, heart rate has been in the high 50s, other vital signs are stable. Routine blood work was remarkable for hemoglobin of 9.9 g/dL, potassium is 3.2, BUN 38, creatinine is 1.66. His INR was 7.9. EKG revealed sinus bradycardia, prolonged QTC, no acute findings. Chest x-ray revealed wide mediastinum, mild cardiomegaly, no acute infiltrate or consolidation, no effusion. X-ray of the pelvis and right hip revealed acute displaced subcapital fracture of the right femoral neck. Patient is being admitted for acute traumatic displaced subcapital fracture of the right femoral neck for surgical fixation. 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) Essential hypertension (Chronic) Presence of stent in coronary artery (Chronic ~05/24/06) PCI/ILANA of the of 2nd Diagonal instent restenosis 05/24/06 Atherosclerotic heart disease of [place] coronary artery without angina pectoris (Chronic) COPD (chronic obstructive pulmonary disease) (Chronic) Tobacco abuse (Chronic) Tobacco dependence in remission (Chronic) Pulmonary embolism (Chronic) Hypothyroidism (Chronic) Atrial fibrillation (Chronic) Medical History: Medical History (Last Updated 10/11/19 @ 02:24 by Marely Pendleton MD) Chronic heart failure with preserved ejection fraction (Chronic) I50.32 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) Onset Date: ~10/28/07 I71.01 Essential hypertension (Chronic) I10 Atherosclerotic heart disease of [place] coronary artery without angina pectoris (Chronic) I25.10 Tobacco dependence in remission (Chronic) F17.201 Pulmonary embolism (Chronic) I26.99 Hypothyroidism (Chronic) E03.9 Atrial fibrillation (Chronic) 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) I71.3 Squamous cell carcinoma of skin (Inactive) C44.92 Allergies No Known Allergies Allergy (Verified 10/11/19 00:04) Home Medications: Ambulatory Orders Medication Instructions Recorded cholecalciferol (vitamin D3) 50 2,000 unit PO QDAY 04/23/18 mcg (2,000 unit) capsule nitroglycerin 0.4 mg sublingual 0.4 mg SUBLINGUAL Q5-15M PRN 04/23/18 tablet Ipratropium/Albuterol Sulfate 3 ml INHALATION Q6H.RT PRN 02/15/19 [Duoneb] potassium 99 mg tablet 99 mg PO DAILY 05/02/19 ramipril 10 mg capsule 10 mg PO BID cap 05/02/19 levothyroxine 100 mcg tablet 100 mcg PO DAILY #30 tab 08/23/19 amiodarone 200 mg tablet 200 mg PO DAILY #30 tab 08/26/19 furosemide 40 mg tablet 40 mg PO DAILY #30 tab 08/26/19 carvedilol 25 mg tablet 25 mg PO BID #60 tab 09/19/19 warfarin 4 mg tablet 4 mg PO TUTH #30 tab 09/19/19 Warfarin [Coumadin] 2 mg PO SUMOWEFRSA 10/11/19 Surgical History: Surgical History (Last Reviewed 10/11/19 @ 02:29 by Marely Pendleton MD) History of aortic valve repair (Chronic) Onset Date: ~10/28/07 Z98.890, Z86.79 Hx of repair of ascending aorta (Chronic) Onset Date: ~10/28/07 Z98.890 32mm Hemishield graft Presence of stent in coronary artery (Chronic) Onset Date: ~05/24/06 Z95.5 PCI/ILANA of the of 2nd Diagonal instent restenosis 05/24/06 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 Onset Date: ~02/20/09 I72.4 Repaired 02/20/09 Presence of coronary angioplasty implant and graft Onset Date: ~05/24/06 Z95.5 PCI/ILANA of the of 2nd Diagonal instent restenosis 05/24/06 Hx of replacement of aortic valve (Inactive) Z95.2 historyamputation right hand Surgical History: angioplasty, - - Thoracic aortic [id number]-[id number] Status post aortic valve replacement Psychiatric History: No pertinent psych hx Lives: Spouse/ Significant Other Smoking Status: Former smoker Alcohol: None Drugs: None - *Family History Maternal Family History: Family History (Last Reviewed 09/19/19 @ 13:54 by Isabel Vealzco) Grandfather Diabetes Brother Heart disease Paternal Family History: Family History (Last Reviewed 09/19/19 @ 13:54 by Isabel Velazco) Grandfather Diabetes Brother Heart disease Review of Systems Constitutional: Denies: Anorexia, Chills, Fever, Weakness Eyes: Denies: Blurred vision, Double vision, Drainage, Redness HEENT: Denies: Difficulty Hearing, Dysphasia, Ear Pain, Eye Pain, Nasal Congestion, Sore Throat Cardiovascular: Denies: Chest Pain, Claudication, Chest Pressure, Edema, Heaviness, Palpitations, Syncope Respiratory: Denies: Cough, Pleuritic Pain, Shortness of Breath, Sputum production, Wheezing Gastrointestinal: Denies: Abdominal Pain, Constipation, Diarrhea, Nausea, Vomiting Genitourinary: Denies: Dysuria, Frequency, Hematuria Musculoskeletal: Reports: Joint Pain. Denies: Arm Pain, Back Pain Skin: Denies: Dryness, Rash Neurological: Denies: Balance problems, Double vision, Change in Speech, Slurred speech, Confusion, Focal weakness, Headaches, Incoordination Psychiatric: Denies: Anxiety, Depression Endocrine: Denies: Change in Body Habitus, Polydipsia, Polyuria VTE Information - Inpt Only VTE Present on Admission: No VTE Mechan Device Prophylaxis: None VTE Pharm Prophylaxis ordered?: No - Physical Exam Vitals/I&O's: Vital Signs Temp Pulse Resp BP Pulse Ox 98.1 F 58 L 18 169/52 H 94 10/10/19 23:56 10/11/19 02:15 10/11/19 02:15 10/11/19 02:15 10/11/19 02:15 Oxygen Delivery Method Room Air Weight: 119 lb 0.794 oz Body Mass Index (BMI) 21.7 Intake and Output for Last 24 Hours 10/09/19 10/10/19 10/11/19 23:59 23:59 23:59 Intake Total 160 / 160 Balance 160 / 160 General: Alert, Oriented x3, Cooperative, No apparent distress HEENT: Atraumatic, PERRLA, EOMI, Normocephalic Oral: Moist Mucosa, No Gingival or Mucosal Lesions/ Ulcerations Neck: Supple, No JVD, Negative Carotid Bruits, Trachea Midline, Thyroid Normal Size and Texture Lungs: Clear to auscultation, Normal air movement, No rhonchi, No wheeze, No rales, Diminished Cardiovascular: Regular rate, Regular Rhythm, Normal S1, Normal S2, PMI Normal Abdomen: Bowel Sounds Present, Soft, Non Tender, Non-Distended, No Hepato-splenomegaly Extremities: No clubbing, No cyanosis, No edema Skin: No rashes, No breakdown Musculoskeletal: - - Right lower extremity: Shortened, externally rotated. Status post above right wrist amputation. Neurological: Cranial nerves II-XII grossly intact, Motor Exam 5/5 strength throughout Psych/Mental Status: Normal Affect, Appropriate, Alert and oriented to time, place, person, mood and affect Laboratory Results 10/11/19 00:45: WBC 6.9, RBC 3.62 L, Hgb 9.9 L, Hct 31.0 L, MCV 85.6, MCH 27.3, MCHC 31.9 L, RDW Std Deviation 44.5 H, RDW Coeff of Ej 14.3, Plt Count 204, MPV 10.1, Immature Gran % (Auto) 0.600, Neut % (Auto) 66.3, Lymph % (Auto) 19.5, [place] % (Auto) 12.4 H, Eos % (Auto) 0.9, Baso % (Auto) 0.3, Absolute Neuts (auto) 4.6, Absolute Lymphs (auto) 1.35, Nucleated RBC % 0 10/11/19 00:45: PT 68.2 H, INR 7.9 H*, APTT 84.0 H 10/11/19 00:45: Sodium 142, Potassium 3.2 L, Chloride 105, Carbon Dioxide 35.0 H, Anion Gap 2 L, BUN 38 H, Creatinine 1.66 H, Estim Creat Clear Calc 28.01, Est GFR (MDRD) Af Amer 52 L, Est GFR (MDRD) Non-Af 43 L, BUN/Creatinine Ratio 22.9 H, Glucose 178 H, Calcium 8.5 Clinical Impression(s) from Imaging Studies Hip/Pelvis X-Ray 10/11/19 00:20 IMPRESSION: 1. Acute, displaced subcapital fracture of the right femoral neck. 2. No hip dislocation. 3. Extensive atherosclerotic calcifications. at 0208 Reported and signed by: Preston Mora MD Electronically Signed: Preston Mora, at 2:06 EST Tel , Service support , Chest X-Ray 10/11/19 00:37 IMPRESSION: 1. No definite acute cardiopulmonary disease. 2. Cardiomegaly, unchanged. Previous median sternotomy. at 0203 Reported and signed by: Preston Mora MD Electronically Signed: Preston Mora, at 2:02 EST Tel , Service support , Assessment/Plan This is a 79 years old male patient presented to the emergency room because of fall and right hip pain, found to have acute traumatic displaced subcapital fracture of the right femoral neck and is being admitted for treatment. #1 acute traumatic displaced subcapital fracture of the right femoral neck: X-ray of the pelvis and right hip reviewed. Routine blood work reviewed as above. Chest x-ray and EKG also reviewed as above and mentioned below. Plan: Admit to [facility] floor, cardiac monitoring, gentle IV fluids for hydration, keep on clear liquids, IV Dilaudid for pain, OxyIR PRN for pain, insert Mcdowell catheter, orthopedic surgery consult, repeat CBC and BMP at 11 AM this morning, recheck INR at 11 and this morning, PT OT evaluation and treatment when appropriate. #2 preoperative evaluation: Patient with multiple medical comorbidities as mentioned above, going for emergent surgery for fixation of right hip fracture. Patient is active at home, doing his daily activities without restrictions. EKG revealed sinus bradycardia, prolonged QTC, no acute changes. Chest x-ray revealed wide mediastinum which is chronic and mild cardiomegaly, no acute findings. Vital signs are stable. Serum creatinine is 1.66 which is chronic. Based on his age, functional status, past medical history, serum creatinine and type of surgery, his estimated risk for perioperative myocardial infarction or cardiac arrest is 3.72%. According to ACS NSQIP surgical calculator, his risk of serious complications is 21.6% which is above average given his multiple medical comorbidities including history of ascending aortic dissection status post repair. He had an echocardiogram done on January, that revealed ejection fraction of 55%, severe LVH, moderately enlarged left atrium, mildly enlarged right atrium. At this time, no indication for further cardiac or noncardiac work-up. This patient will be at high risk for perioperative and postoperative complications. Plan to proceed with surgery after correction of the INR. #3 Coumadin induced coagulopathy: Patient has been on Coumadin for paroxysmal A. fib. INR is 7.9. At this time, no evidence of active bleeding. Plan: Hold Coumadin, vitamin K IV 10 mg x 1, transfuse 2 units of fresh frozen plasma, repeat INR at 11 AM this morning. #4 chronic anemia: It is normocytic anemia likely because of anemia of chronic disease. Baseline hemoglobin has been around 11 g/dL. Admission hemoglobin is 9.9 g/dL. No evidence of active bleeding. Plan: Monitor, repeat CBC as mentioned above. #5 stage III chronic kidney disease: Baseline creatinine has been around 1.3 to 1.7 mg/dL. Admission creatinine is 1.66, stable at baseline. #6 paroxysmal atrial fibrillation: At this time, is in sinus rhythm, rate is controlled. EKG reviewed, revealed sinus bradycardia and chronic QTC, no acute ischemic changes. Plan to continue amiodarone and Coreg for rate control, hold Coumadin as above. #7 CAD status post stents: Patient denied any chest pain or shortness of breath. Plan to continue Coreg and enalapril. #8 COPD: Clinically stable, pulse ox is been draining normal air. Plan for DuoNeb every 6 hours, albuterol PRN. #9 history of ascending aortic dissection: Status post repair. Stable, no acute issues. #10 status post aortic valve repair: Stable, no acute issues. #11 chronic diastolic CHF: Compensated, no evidence of acute CHF. Plan for gentle IV fluids for hydration, continue Coreg and ramipril, hold Lasix for now. 2D echocardiogram reviewed as above. #12 hypothyroidism: Continue levothyroxine. #13 COPD: DuoNeb every 6 hours, albuterol PRN, incentive spirometer. Chest x-ray reviewed, no acute findings. #14 DVT prophylaxis: INR 7.9. This note was generated with Bomgar dictation software. It may contain incorrect words, spelling, and punctuation that were not noted in checking the note before signing. Code Visit Inpatient E&M: 25970 Init Hosp L3
[2019-10-11] MEDS: Morphine 2 MG/ML Syringe IV (02:35)
[2019-10-11] MEDS: HYDROmorphone 1 MG/ML Syringe IV (04:17)
[2019-10-11] MEDS: 0.9% Normal Saline 1,000 ML 100 ML IV ×3 (04:34→23:51)
[2019-10-11] MEDS: Potassium Chloride 10mEq/100mL 10 MEQ/100 ML IV.SOLN. 100 MEQ IV BOLUS ×3 (04:35→06:41)
[2019-10-11] MEDS: Levothyroxine 100 MCG Tablet PO (06:26)
--- NOTE | 2019-10-11 07:52 | HIP_PTH ---
PATIENT: SANTOS GARCES LOC: MS3 U#:[id number] AGE/SX: 79/M ROOM: [facility] [place] RE10/11/[address]: Dr. Santos Sol MD : 1940 BED: 1 DIS: 10/14/2019 SPEC #: [id number] RECD: 10/11/19 16:54 STATUS: EUSEBIO REMichelle #: [id number] KENNY: 10/11/19 07:[address]: Jeison Yan DEPT: SURGICAL PATHOLOGY RECD BY: Josefa Quintanilla ENTERED: 10/14/19 10:03 SP TYPE: TOTAL HIP OTHR DR: MD Dr. Santos Tyler MD Dr. Daniel Newton, MD Dr. Ghasem E Ashelfah, MD Tissues: Hip, NOS Procedures: Decalcification bone/plaque Surgery Specimen Level IV HEADER OPERATION: Hemiarthroplasty, hip PRE-OP DIAGNOSIS: Acute, displaced subcapital fracture of the right femoral neck TISSUE SUBMITTED: Right hip bone MICROSCOPIC DIAGNOSIS Right hip bone, hemiarthroplasty: Femoral head and detached pieces of bone with focal area of hemorrhage, clinically displaced subcapital fracture of right femoral neck. Fragments of fibroadipose and fibroconnective tissue. DOUGIE:baljeet 10/21/19 MICROSCOPIC DESCRIPTION Slides are reviewed. GROSS DESCRIPTION Received is one container labeled with the patient's name and designated right hip bone. The specimen consists of a vernon femoral head measuring 4.5 x 4.5 x 4 cm. The articular surface is grossly unremarkable. The articular surface is hemorrhagic and irregular consistent with fracture site. Also present free in the container are multiple irregular fragments of bone and soft tissue measuring in aggregate 8 x 5 x 2 cm. Body Piercer sections are submitted in two cassettes as follows: 1 - soft tissue, 2 - bone after decalcification. / AM:baljeet 10/14/19 TC:5 CPT: 45656, 65883
[2019-10-11] MEDS: 0.9% Saline Lock 10 ML Syringe IV (08:04)
[2019-10-11] MEDS: Amiodarone 200 MG Tablet PO (08:05)
[2019-10-11] MEDS: Carvedilol 25 MG Tablet PO ×2 (08:05→18:44)
[2019-10-11] MEDS: Ramipril 10 MG Capsule PO ×2 (08:05→22:32)
--- NOTE | 2019-10-11 09:48 | CASEMGMT ---
SW met with patient, introduced self and role at [facility]. SW let patient know that SW will be following along to assist with d/c planning. ELVIN explained that most hip fractures have to go to a penitentiary facility for rehab at discharge. He said he has been to TCU and that is where he wants to go at d/c. ELVIN told him SW can put his name on the list. ELVIN called Rosalia and she put patient's name on the TCU list. Jayda MOSER MSW
[2019-10-11 10:58] LABS: Absolute Lymphocyte Count 1.16 X10^3/uL (0.83-4.51); Absolute Neutrophil Count 4.8 X10^3/uL (2.0-7.7); Basophil# 0.01 X10^3/uL; Basophil% 0.1 % (0-1); Eosinophil# 0.03 X10^3/uL; Eosinophils% 0.4 % (0-5); Hematocrit 30.2 % (40-54); Hemoglobin 9.3 g/dL (13.0-16.5); Lymphocyte # 1.16 X10^3/ul (4.0); Lymphocyte % 16.7 % (19-41); Mean Corp Hgb Conc 30.8 g/dL (32-36); Mean Corpuscular Volume 87.5 fL (80-94); Mean Platelet Vol. 10.4 fl (6.2-12.0); Monocyte# 0.93 X10^3/uL; Monocyte% 13.4 % (0-10); NRBC Flagged by Analyzer 0 % (0-5); Platelet Count 159 K/mm3 (150-450); RBC Distribution Width CV 14.6 % (11.6-14.6); RBC Distribution Width SD 46.4 fl (35.1-43.9); Red Blood Count 3.45 M/mm3 (4.6-6.2)
[2019-10-11 11:05] LABS: International Normalized Ratio 1.8; Prothrombin Time (Protime)PT. 20.7 SECONDS (11.7-14.9)
[2019-10-11 11:10] LABS: Anion Gap 4 (5-15); BUN 29 mg/dL (7-18); BUN/Creat Ratio 20.3 RATIO (10-20); Chloride 104 mmol/L (98-107); Creatinine, Serum 1.43 mg/dL (0.70-1.30); EST Glomerular Filtration Rate 51 mL/min (>60); Est Glom Filt Rate - Afr Amer 61 mL/min (>60); Estimated Creatinine Clearance 31.49 ml/min; Glucose 114 mg/dL (74-106); Potassium 3.6 mmol/L (3.5-5.1); Sodium Level 142 mmol/L (136-145)
--- NOTE | 2019-10-11 11:32 | STE_ITS ---
Reason For Study: PRE-OP, CAD Stress Results Maximum Predicted HR: 142 bpm Target HR: 121 bpm % Maximum Predicted HR: 85 % Heart Stage Duration Rate BP Dose Comment (mm:ss) (bpm) BASELINE 62 185/63 PAIN IN R HIP W/COUGH DSE- 10 MCG 3:17 62 182/6510.00NO SX DSE- 20 MCG 3:07 63 202/6820.00NO SX DSE- 30 MCG 3:35 96 224/8930.00ATROPINE .25 MG IVP GIVEN @ 1236 DSE- 40 MCG 4:58 120 203/8740.00ATROPINE .25 MG IVP GIVEN @ 1240, 1242, AND 1244, NO SX PT WENT INTO AFIB AT 5:30 MIN INTO RECOVERY. GIVEN 5 MG RECOVERY 108 139/79 LOPRESSOR SIVP OVER 5 MIN @ 1250 Stress Duration: 14:57 mm:ss Maximum Stress HR: 120 bpm Baseline Echocardiogram Findings The estimated ejection fraction is 55 %. Stress Echo Wall motion Data Resting WM Intermediate WM Stress WM Resting Wall Motion Wall Motion Stress No regional wall motion No regional wall motion abnormalities noted. abnormalities noted. EKG Data The baseline ECG displays normal sinus rhythm. The patient was titrated from 10 mcg to a maximum of 40 mcg of dobutamine during the stress. The maximum heart rate attained was 153 beats per minute. This was 107% of maximum predicted heart rate. During dobutamine infusion, there were no ST or T wave changes noted to suggest ischemia. No clinical angina was noted. MMode/2D Measurements & Calculations LVOT diam: 2.4 cm LVOT area: 4.4 cm2 Doppler Measurements & Calculations Ao V2 max: 164.4 cm/sec LV V1 max: 111.7 cm/sec SV(LVOT): 113.9 ml Ao max P.8 mmHg LV V1 max P.0 mmHg Ao V2 mean: 98.1 cm/sec LV V1 mean P.5 mmHg Ao mean P.5 mmHg LV V1 mean: 72.6 cm/sec Ao V2 VTI: 33.9 cm LV V1 VTI: 26.1 cm JESSEE(I,D): 3.4 cm2 JESSEE(V,D): 3.0 cm2 Interpretation Summary The estimated ejection fraction is 55 %. Probably normal, adequate, dobutamine echocardiogram. Negative for ischemia by EKG and echocardiographic criteria. No anginal symptoms noted. Patient developed rare PVC and atrial fibrillation into recovery which did not spontaneously resolved. Final LVEF of 55%. Test terminated due to the attainment of target heart rate. Excellent rate pressure product. Decreased sensitivity due to baseline global LV dysfunction. Patient tolerated procedure well. No complications. Ordering Physician: Tomas^Gayle^Vanessa^^RICK Referring Physician: Marely Pendleton Performed By: Shannon Cuadra RDCS
--- NOTE | 2019-10-11 12:46 | PCM.CONS.C ---
Problem List (1) Mixed hyperlipidemia Status: Chronic (2) Chronic heart failure with preserved ejection fraction Status: Chronic (3) History of aortic valve repair Status: Chronic (4) Hx of repair of ascending aorta Status: Chronic Comment: 32mm Hemishield graft (5) 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 (6) Essential hypertension Status: Chronic (7) Presence of stent in coronary artery Status: Chronic Comment: PCI/ILANA of the of 2nd Diagonal instent restenosis 05/24/06 (8) Atherosclerotic heart disease of [place] coronary artery without angina pectoris Status: Chronic Qualifiers: [place] vs. transplanted heart: [place] heart Qualified Code(s): I25.10 - Atherosclerotic heart disease of [place] coronary artery without angina pectoris (9) Tobacco abuse Status: Chronic (10) Pulmonary embolism Status: Chronic (11) Atrial fibrillation Status: Chronic Qualifiers: Atrial fibrillation type: unspecified Qualified Code(s): I48.91 - Unspecified atrial fibrillation Reason for Consult Date of Consultation: 10/11/19 Reason for Consultation: Preoperative stratification, hypertension, history of ascending aortic repair, paroxysmal atrial fibrillation, coronary artery disease, history of pulmonary embolism History of Present Illness: The patient is a 79 year old M, patient of Dr. Ortega, with a complex medical history. Patient apparently was carrying a basket of laundry up the stairs, and apparently fell tripping and fracturing his right hip. He did not lose consciousness, or have any lightheadedness or dizziness or chest pain. We were requested to see the patient for preoperative stratification. Patient is a history of paroxysmal atrial fibrillation, coronary disease status post PCI in [address] [facility]. At that time he was noted to have preserved LV function with an EF of 60%, previous stenting to his second diagonal with an 80% pre-stent stenosis, nonobstructive disease of his left circumflex and RCA. He underwent angioplasty and restenting of his diagonal #2 at that time. Subsequent to that, on 10/28/2007 the patient presented to [facility] with thoracic aortic dissection type a with a tear in the aortic arch and underwent a 32 mm Hemashield graft. As best I can tell, the patient has had no subsequent catheterization since that time. There was no comment as to aortic valve repair or replacement A follow-up transthoracic echocardiogram on 09/24/2010 noted the aortic valve is tricuspid with mild thickening and mild to moderate aortic insufficiency. His most recent Lexiscan took place on 02/03/2009 and was considered to be normal however his nuclear images were unable to review by Dr. Jones. In addition the patient apparently had a right popliteal aneurysm repair at the [facility] on 02/20/2009. Prior to his hip fracture he denied any exertional chest pain, angina, shortness of breath or dyspnea on exertion. He had been taking and tolerating his medicines well. The patient underwent a dobutamine echocardiogram this morning which showed hypertension blood pressure response to dobutamine, no evidence of overt ischemia. Able to quantitate RVSP. No stenosis noted. [] Past Medical History Allergies/Adverse Reactions: Allergies No Known Allergies Allergy (Verified 10/11/19 00:04) Home Medications: Ambulatory Orders Medication Instructions Recorded cholecalciferol (vitamin D3) 50 2,000 unit PO QDAY 04/23/18 mcg (2,000 unit) capsule nitroglycerin 0.4 mg sublingual 0.4 mg SUBLINGUAL Q5-15M PRN 04/23/18 tablet Ipratropium/Albuterol Sulfate 3 ml INHALATION Q6H.RT PRN 02/15/19 [Duoneb] potassium 99 mg tablet 99 mg PO DAILY 05/02/19 ramipril 10 mg capsule 10 mg PO BID cap 05/02/19 levothyroxine 100 mcg tablet 100 mcg PO DAILY #30 tab 08/23/19 amiodarone 200 mg tablet 200 mg PO DAILY #30 tab 08/26/19 furosemide 40 mg tablet 40 mg PO DAILY #30 tab 08/26/19 carvedilol 25 mg tablet 25 mg PO BID #60 tab 09/19/19 warfarin 4 mg tablet 4 mg PO TUTH #30 tab 09/19/19 Warfarin [Coumadin] 2 mg PO SUMOWEFRSA 10/11/19 Past Medical History (Chronic Problems): Chronic Problems (Last Updated 10/11/19 @ 02:24 by Marely Pendleton MD) Mixed hyperlipidemia (Chronic) Chronic heart failure with preserved ejection fraction (Chronic) History of aortic valve repair (Chronic ~10/28/07) Hx of repair of ascending aorta (Chronic ~10/28/07) 32mm Hemishield graft 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) Essential hypertension (Chronic) Presence of stent in coronary artery (Chronic ~05/24/06) PCI/ILANA of the of 2nd Diagonal instent restenosis 05/24/06 Atherosclerotic heart disease of [place] coronary artery without angina pectoris (Chronic) COPD (chronic obstructive pulmonary disease) (Chronic) Tobacco abuse (Chronic) Tobacco dependence in remission (Chronic) Pulmonary embolism (Chronic) Hypothyroidism (Chronic) Atrial fibrillation (Chronic) Surgical History: angioplasty, - - Thoracic aortic cojwzwfs-yvhjknp-rbrahu Status post aortic valve replacement Psychiatric History: No pertinent psych hx - *Family History Maternal Family History: Family History (Last Reviewed 09/19/19 @ 13:54 by Isabel Velazco) Grandfather Diabetes Brother Heart disease History Items: No pertinent history Paternal Family History: Family History (Last Reviewed 09/19/19 @ 13:54 by Isabel Velazco) Grandfather Diabetes Brother Heart disease History Items: No pertinent history Lives: Spouse/ Significant Other Smoking Status: Smoker, status unknown Tobacco Use: Cigarettes Alcohol: None Drugs: None Review of Systems - Review of Systems General: Denies: Fever, Night Sweats, Fatigue Cardiovascular: Denies: Chest Discomfort, Shortness of Breath, Orthopnea, PND, Peripheral Edema, Palpitations, Lightheadedness, Dizziness, Near Syncope, Syncope Respiratory: Denies: Cough, Sputum Production, Hemoptysis Gastrointestinal: Denies: Hematemesis, Hematochezia, Melena Genitourinary: Denies: Dysuria, Hematuria Skin: Denies: Rash Objective: Vital Signs Temp Pulse Resp BP Pulse Ox 98.8 F 63 15 154/64 H 95 10/11/19 08:02 10/11/19 10:53 10/11/19 08:02 10/11/19 08:02 10/11/19 08:02 Oxygen Flow Rate (L/min) 1 Oxygen Delivery Method Nasal Cannula Weight: 117 lb 1.047 oz Body Mass Index (BMI) 22.1 Intake and Output for Last 24 Hours 10/09/19 10/10/19 10/11/19 23:59 23:59 23:59 Intake Total 1662.67 / 1662.67 Output Total 400 / 400 Balance 1262.67 / 1262.67 10/11/19 00:45: WBC 6.9, RBC 3.62 L, Hgb 9.9 L, Hct 31.0 L, MCV 85.6, MCH 27.3, MCHC 31.9 L, Plt Count 204, MPV 10.1, Immature Gran % (Auto) 0.600, Neut % (Auto) 66.3, Lymph % (Auto) 19.5, [place] % (Auto) 12.4 H, Eos % (Auto) 0.9, Baso % (Auto) 0.3, Absolute Neuts (auto) 4.6, Nucleated RBC % 0 10/11/19 00:45: PT 68.2 H, INR 7.9 H*, APTT 84.0 H 10/11/19 00:45: Sodium 142, Potassium 3.2 L, Chloride 105, Carbon Dioxide 35.0 H, Anion Gap 2 L, BUN 38 H, Creatinine 1.66 H, Est GFR (MDRD) Af Amer 52 L, Est GFR (MDRD) Non-Af 43 L, BUN/Creatinine Ratio 22.9 H, Glucose 178 H, Calcium 8.5 10/11/19 10:50: WBC 7.0, RBC 3.45 L, Hgb 9.3 L, Hct 30.2 L, MCV 87.5, MCH 27.0, MCHC 30.8 L, Plt Count 159, MPV 10.4, Immature Gran % (Auto) 0.400, Neut % (Auto) 69.0, Lymph % (Auto) 16.7 L, [place] % (Auto) 13.4 H, Eos % (Auto) 0.4, Baso % (Auto) 0.1, Absolute Neuts (auto) 4.8, Nucleated RBC % 0 10/11/19 10:50: PT 20.7 H, INR 1.8 10/11/19 10:50: Sodium 142, Potassium 3.6, Chloride 104, Carbon Dioxide 34.0 H, Anion Gap 4 L, BUN 29 H, Creatinine 1.43 H, Est GFR (MDRD) Af Amer 61, Est GFR (MDRD) Non-Af 51 L, BUN/Creatinine Ratio 20.3 H, Glucose 114 H, Calcium 8.0 L Rhythm: EKG: Normal sinus rhythm, no acute changes. ECHO: Stress Test: Negative dobutamine echocardiogram for ischemia 10/11/2019. Cardiac Cath: PCI: CT Surgery: Holter monitor: EPS: PPM: CXR: Chest CT Scan: Assessment/Plan 1. Coronary artery disease: The patient has had no exertional anginal symptoms prior to his fall, and had no anginal symptoms during his dobutamine echocardiogram. His dobutamine echocardiogram shows no overt ischemia, and his EKG during the dobutamine was negative. At this point the patient is at low risk for noncardiac surgery, but I would recommend judicious use of IV fluids given his mild global LV dysfunction, and history of pulmonary embolism. Would recommend also continuing his antihypertensive medications to avoid flash pulmonary edema. It appears the patient is fairly hypertensive most likely result of the severe pain in his hip, I would recommend moderately aggressive pain management to assist with hypertension. I do not believe the patient requires a diagnostic coronary angiogram prior to his hip fracture surgery. He will continue baby aspirin going forward. 2. Pulmonary embolism: The patient has a history of pulmonary embolism superimposed on paroxysmal atrial fibrillation. He is currently on amiodarone for atrial fibrillation. Would recommend subcu Lovenox and SCDs for DVT prophylaxis. 3. Paroxysmal atrial fibrillation: The patient was in normal sinus rhythm upon arrival, but developed atrial fibrillation during his dobutamine infusion which will hopefully spontaneously convert. He is currently on amiodarone therapy would recommend continuing amiodarone 200 mg a day. Recommend continuing his metoprolol 100 mg p.o. twice daily and Lasix 20 mg a day. Patient was found to be toxic with an INR of 7.9 upon arrival, which is reduced to 1.8. Would recommend restarting Coumadin as soon as possible after his surgery per surgical recommendations. 4. Hypertension: Again I believe the patient's hypertension is triggered by his extreme pain, I would recommend aggressive pain control to assist with blood pressure control. Continue metoprolol, Lasix, restarting ramipril 10 mg p.o. bid for afterload reduction and LV dysfunction. 5. Hyperlipidemia: Recommend starting a statin based medications dose of Zocor 20 mg p.o. nightly after his hip surgery has been repaired. 6. Thank you very much for the opportunity to participate in the cardiac care of your patient. We will discussed with Dr. Lundy. Consultation time took place between 12 PM and 1 PM Code Visit Inpatient E&M: 97132 In Hosp L2
[2019-10-11] MEDS: Cefazolin 2 GM in 0.9% Normal Saline 100 ML IV (15:46)
--- NOTE | 2019-10-11 15:54 | PCM.HOSP.N ---
Hospitalist Note Patient was seen and examined today, I had cardiology see the patient today for surgical clearance, cardiology performed a stress echocardiogram on the patient it was negative for reversible ischemia, patient did have atrial fibrillation during the stress test however. Cardiology stated that the patient was stable to undergo surgery at this time, I relayed this to Dr. Jasper Yan. I talked at length with the patient's family who was in the room today with the patient, it is planned that the patient may be able to go to the rehab department at [facility] or TCU at the time of discharge from the hospital here. Patient's INR today was 1.8.
--- NOTE | 2019-10-11 16:12 | NURSING ---
Report called to recharger on MS3. Nata HORNER
[2019-10-11] MEDS: Lactated Ringers 1,000 ML 125 ML IV (17:00)
--- NOTE | 2019-10-11 17:00 | CON.PCM_ITS ---
Reason for Consult Date of Consultation: 10/11/19 Reason for Consultation: right hip pain History of Present Illness: The patient is a 79 year old M [fell at home suffering a displaced right subcapital hip fracture. He was admitted to [facility] by the hospitalist and administered Vitamin K and FFP becsuse his INR was 7.8 upon admission. At the time of my consult the INR was down to 1.8. He denied N/T/P of LOC. He reports only right hip pain. His son and were present during the consultation.] 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) Essential hypertension (Chronic) Presence of stent in coronary artery (Chronic ~05/24/06) PCI/ILANA of the of 2nd Diagonal instent restenosis 05/24/06 Atherosclerotic heart disease of [place] coronary artery without angina pectoris (Chronic) COPD (chronic obstructive pulmonary disease) (Chronic) Tobacco abuse (Chronic) Tobacco dependence in remission (Chronic) Pulmonary embolism (Chronic) Hypothyroidism (Chronic) Atrial fibrillation (Chronic) Medical History: Medical History (Last Updated 10/11/19 @ 02:24 by Marely Pendleton MD) Chronic heart failure with preserved ejection fraction (Chronic) I50.32 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) Onset Date: ~10/28/07 I71.01 Essential hypertension (Chronic) I10 Atherosclerotic heart disease of [place] coronary artery without angina pectoris (Chronic) I25.10 Tobacco dependence in remission (Chronic) F17.201 Pulmonary embolism (Chronic) I26.99 Hypothyroidism (Chronic) E03.9 Atrial fibrillation (Chronic) 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) I71.3 Squamous cell carcinoma of skin (Inactive) C44.92 Allergies No Known Allergies Allergy (Verified 10/11/19 00:04) Home Medications: Ambulatory Orders Medication Instructions Recorded cholecalciferol (vitamin D3) 50 2,000 unit PO QDAY 04/23/18 mcg (2,000 unit) capsule nitroglycerin 0.4 mg sublingual 0.4 mg SUBLINGUAL Q5-15M PRN 04/23/18 tablet Ipratropium/Albuterol Sulfate 3 ml INHALATION Q6H.RT PRN 02/15/19 [Duoneb] potassium 99 mg tablet 99 mg PO DAILY 05/02/19 ramipril 10 mg capsule 10 mg PO BID cap 05/02/19 levothyroxine 100 mcg tablet 100 mcg PO DAILY #30 tab 08/23/19 amiodarone 200 mg tablet 200 mg PO DAILY #30 tab 08/26/19 furosemide 40 mg tablet 40 mg PO DAILY #30 tab 08/26/19 carvedilol 25 mg tablet 25 mg PO BID #60 tab 09/19/19 warfarin 4 mg tablet 4 mg PO TUTH #30 tab 09/19/19 Warfarin [Coumadin] 2 mg PO SUMOWEFRSA 10/11/19 Surgical History: Surgical History (Last Reviewed 10/11/19 @ 02:29 by Marely Pendleton MD) History of aortic valve repair (Chronic) Onset Date: ~10/28/07 Z98.890, Z86.79 Hx of repair of ascending aorta (Chronic) Onset Date: ~10/28/07 Z98.890 32mm Hemishield graft Presence of stent in coronary artery (Chronic) Onset Date: ~05/24/06 Z95.5 PCI/ILANA of the of 2nd Diagonal instent restenosis 05/24/06 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 Onset Date: ~02/20/09 I72.4 Repaired 02/20/09 Presence of coronary angioplasty implant and graft Onset Date: ~05/24/06 Z95.5 PCI/ILANA of the of 2nd Diagonal instent restenosis 05/24/06 Hx of replacement of aortic valve (Inactive) Z95.2 historyamputation right hand Surgical History: angioplasty, - - Thoracic aortic qqdvtkub-nnbvukr-gfrtur Status post aortic valve replacement Psychiatric History: No pertinent psych hx Lives: Spouse/ Significant Other Smoking Status: Smoker, status unknown Tobacco Use: Cigarettes Alcohol: None Drugs: None - *Family History Maternal Family History: Family History (Last Reviewed 09/19/19 @ 13:54 by Isabel Velazco) Grandfather Diabetes Brother Heart disease History Items: No pertinent history Paternal Family History: Family History (Last Reviewed 09/19/19 @ 13:54 by Isabel Velazco) Grandfather Diabetes Brother Heart disease History Items: No pertinent history Patient Problems: Active and Suspected Problems (Last Updated 10/11/19 @ 02:24 by Marely Pendleton MD) Hip fracture (Acute) Objective: PMHx, PSHx, Allergies, Medications and ROS were reviewed as per the intake H&P. - Physical Exam Vitals/I&O's: Vital Signs Temp Pulse Resp BP Pulse Ox 98.1 F 111 H 18 154/61 H 93 10/11/19 13:24 10/11/19 13:24 10/11/19 13:24 10/11/19 13:24 10/11/19 13:24 Oxygen Flow Rate (L/min) 1 Oxygen Delivery Method Nasal Cannula Weight: 117 lb 1.047 oz Body Mass Index (BMI) 22.1 Intake and Output for Last 24 Hours 10/09/19 10/10/19 10/11/19 23:59 23:59 23:59 Intake Total 2212.67 / 2212.67 Output Total 675 / 675 Balance 1537.67 / 1537.67 General: Alert, Oriented x3, Cooperative, No apparent distress Extremities: No clubbing, No cyanosis, No edema, Capillary Refill Less than 3 Se conds, No Calf Tenderness, Tenderness - right hip. ROM not tested due to known fracture. RLE shortened and ER. Neurological: Neuro grossly intact Comment: X-ray reveals a [place] classification 4 fracture of the right hip Laboratory Results 10/11/19 00:45: WBC 6.9, RBC 3.62 L, Hgb 9.9 L, Hct 31.0 L, MCV 85.6, MCH 27.3, MCHC 31.9 L, RDW Std Deviation 44.5 H, RDW Coeff of Ej 14.3, Plt Count 204, MPV 10.1, Immature Gran % (Auto) 0.600, Neut % (Auto) 66.3, Lymph % (Auto) 19.5, [place] % (Auto) 12.4 H, Eos % (Auto) 0.9, Baso % (Auto) 0.3, Absolute Neuts (auto) 4.6, Absolute Lymphs (auto) 1.35, Nucleated RBC % 0 10/11/19 00:45: PT 68.2 H, INR 7.9 H*, APTT 84.0 H 10/11/19 00:45: Sodium 142, Potassium 3.2 L, Chloride 105, Carbon Dioxide 35.0 H , Anion Gap 2 L, BUN 38 H, Creatinine 1.66 H, Estim Creat Clear Calc 28.01, Est GFR (MDRD) Af Amer 52 L, Est GFR (MDRD) Non-Af 43 L, BUN/Creatinine Ratio 22.9 H , Glucose 178 H, Calcium 8.5 10/11/19 04:05: Blood Type AB POSITIVE 10/11/19 10:50: WBC 7.0, RBC 3.45 L, Hgb 9.3 L, Hct 30.2 L, MCV 87.5, MCH 27.0, MCHC 30.8 L, RDW Std Deviation 46.4 H, RDW Coeff of Ej 14.6, Plt Count 159, MPV 10.4, Immature Gran % (Auto) 0.400, Neut % (Auto) 69.0, Lymph % (Auto) 16.7 L, [place] % (Auto) 13.4 H, Eos % (Auto) 0.4, Baso % (Auto) 0.1, Absolute Neuts (auto) 4.8, Absolute Lymphs (auto) 1.16, Nucleated RBC % 0 10/11/19 10:50: PT 20.7 H, INR 1.8 10/11/19 10:50: Sodium 142, Potassium 3.6, Chloride 104, Carbon Dioxide 34.0 H, Anion Gap 4 L, BUN 29 H, Creatinine 1.43 H, Estim Creat Clear Calc 31.49, Est GFR (MDRD) Af Amer 61, Est GFR (MDRD) Non-Af 51 L, BUN/Creatinine Ratio 20.3 H, Glucose 114 H, Calcium 8.0 L Current Medications Acetaminophen (Tylenol) 650 mg PO Q6H PRN PRN PRN Reason: Pain Score 1-3/Temp > 100.7 F Albuterol Sulfate (Ventolin Aerosols) 2.5 mg INHALATION Q4H PRN PRN PRN Reason: Shortness of breath, wheezing Albuterol/Ipratropium (Duoneb) 3 ml INHALATION Q6H.RT PRN PRN Reason: SOB &/OR WHEEZING Amiodarone HCl (Cordarone) 200 mg PO DAILY [facility] Last Admin: 10/11/19 08:05 Dose: 200 mg Documented by: [facility] Last Admin: 10/11/19 08:05 Dose: 25 mg Documented by: Docusate Sodium (Colace) 100 mg PO BID [facility] Last Admin: 10/11/19 08:05 Dose: Not Given Documented by: Furosemide (Lasix) 40 mg PO DAILY [facility] Hydromorphone HCl (Dilaudid Inj) 1 mg IV Q4H PRN PRN PRN Reason: Pain Score 6-10/10 Last Admin: 10/11/19 04:17 Dose: 1 mg Documented by: Sodium Chloride () 1,000 mls @ 100 mls/hr IV .Q10H [facility] Last Admin: 10/11/19 14:05 Dose: 100 mls/hr Documented by: Sodium Chloride () 500 mls @ 15 mls/hr IV PRN PRN PRN Reason: Blood Transfusion Sodium Chloride () 250 mls @ 15 mls/hr IV .[id number] PRN PRN Reason: Saline Flush Sodium Chloride () 250 mls @ 15 mls/hr IV .[id number] PRN PRN Reason: Additional IVPB Infusion Levothyroxine Sodium (Synthroid) 100 mcg PO DAILY@0600 [facility] Last Admin: 10/11/19 06:26 Dose: 100 mcg Documented by: Magnesium Hydroxide (Milk Of Magnesia) 30 ml PO DAILY PRN PRN PRN Reason: Constipation Ondansetron HCl (Zofran) 4 mg IV Q8H PRN PRN PRN Reason: NAUSEA/VOMITING Oxycodone HCl (Oxyir) 5 mg PO Q4H PRN PRN PRN Reason: Pain Score 4-5/10 Ramipril (Altace) 10 mg PO BID [facility] Last Admin: 10/11/19 08:05 Dose: 10 mg Documented by: Sodium Chloride () 10 - 40 ml IV UD PRN PRN Reason: SALINE FLUSH Last Admin: 10/11/19 08:04 Dose: 10 ml Documented by: Assessment/Plan All Active Problems (Last Updated 10/11/19 @ 02:24 by Marely Pendleton MD) Hip fracture (Acute) [place] classification 4 fracture right hip At this time, I have recommended a hemiarthroplasty of the right hip. I reviewed with he and his family the potential risks, complications, expected post-op course and non-surgical options. They so wish to proceed. Informed consent was obtained.
--- NOTE | 2019-10-11 17:09 | OP.PCM_ITS ---
Report of Operation Date of Procedure: 10/11/19 Pre-Operative Diagnosis: Garden classifisation 4 fracture right hip Post-Operative Diagnosis: same Surgery/Procedure Performed:: Cemented hemirathroplasty right hip Description of Surgical Findings:: Primary Surgeon/Physician: Jeison Yan focused factory manager: TAO Aviles focused factory manager: Pre-Operative Diagnosis: Garden 4 fracture right hip Post-Operative Diagnosis: same Surgery/Procedure Performed: Cemented hemiarthroplasty right hip Estimated Blood Loss: 150 cc Specimen's Removed: bone Type of Anesthesia: general ASA Class: 3 Implants: [Animas Accolade C size 5 stem, 127 degree neck angle +0 48 mm bipolar head ] Surgical Indications: Patient has fracture of the [right ] hip. Patient was cleared from a medical standpoint. The risks of the surgery was discussed with the patient and family at length. Procedure Description: The patient was greeted in the preoperative area. The [right ] hip was marked with surgical marker and preoperative antibiotics administered. The patient was then taken to OR suite in stable condition. Once the patient was placed in the supine position on the operating room table and once adequate anesthesia was obtained the patient was then placed in the lateral decubitus position with the surgical hip facing the field. All bony prominences were well-padded. A commercial hip position was utilized. The appropriate extremity was then prepped and draped in usual sterile fashion. Ioban was placed on the skin. Surgical timeout was performed and surgery was commenced. Standard posterolateral approach to the hip was then performed incision was planned and carried out with a #10 blade. Dissection was then carried length of the incision to the IT band which was split proximally and distally. A Charnley retractor was then placed for soft tissue retraction exposing the gluteus medius. The hip was then approached through a transgluteal approach and dislocated through an posterior capsulectomy. The incarcerated femoral head was removed and measured on the back table. Findings are consistent with a femoral neck fracture. A femoral osteotomy was then created approximately 1 fingerbreadth above the lesser trochanter. No significant abnormality of the acetabulum is identified. Any remaining tissue or bone was removed from the acetabulum Attention was then turned to the femoral preparation. The hip was placed in the 90/90 position and a lateralizing box osteotome was utilized. Femoral starting awl was used followed by sequential broaching to the appropriate size. Excellent purchase was obtained with the stem no stem subsidence and excellent rotational stability was confirmed. A calcar reamer was then used in the trial head neck was placed on the broach. The hip was then located and taken through full range of motion flexion internal and external rotation as well as extension. Excellent stability was noted no impingement was identified of the components and leg lengths appear to be appropriate. The hip was at this point dislocated and the trial femoral components were removed. Cement was mixed under third generation technique. The femoral canal was cleansed thoroughly and dried. Cement was introduced in an antegrade fashion and pressurized. The final femoral stem was then implanted and impacted to the appropriate depth. The femoral stem was held in place in the canal until the cement had cured, The hip was once again trialed and confirmation of leg length and stability was performed. Soft tissue tension also appeared to be appropriate. At this point the hip was redislocated and the trunnion was cleaned and dried meticulously in the appropriate size femoral head was placed on the clean dry trunnion using a 12/14 Oneill taper. The hip was once again relocated and again taken through full range of motion. Copious irrigation was performed. Anatomic closure of the gluteus medius and minimus was performed with #1 Vicryl [id number] type fashion followed by closure of the IT band with #1 Vicryl 0 Vicryl was utilized in subcutaneous tissue and surgical moises were placed in the skin. A well- padded nonadherent dressing was applied. Patient was taken to PACU in stable condition. No complications were identified. Will follow standard postop protocol for hemiarthroplasty. Patient must use assistive device for ambulation for approximately 6 weeks of the gluteal musculature heals. 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
--- NOTE | 2019-10-11 17:30 | RAD_ITS ---
STUDY: X-RAY - PELVIS AND RIGHT HIP REASON FOR EXAM: Male, 79 years old. POST OP RIGHT HIP. TECHNIQUE: 2 views of the pelvis and hip. COMPARISON: None. FINDINGS: There is a non-specific bowel gas pattern. Normal visualized soft tissue structures. There is diffuse demineralization of the osseous structures. There is narrowing with cortical sclerosis and osteophyte formation of the sacroiliac joint consistent with degenerative osteoarthritic changes. Normal bilateral superior and inferior pubic rami. Normal pubic symphysis. Normal bilateral ischial tuberosities. There is a total hip prosthesis on the right. Alignment is normal. There is air along the lateral aspect of the upper thigh and buttock region with the skin moises consistent with recent surgery. Vascular calcifications consistent with peripheral arterial disease. Degenerative disease or contralateral hip. RAD/Hip Min 2 Views (Portable) IMPRESSION: Status post right-sided hip prosthesis with normal alignment. Electronically Signed: Fanta Miller MD at 0:51 EST , Service support ,
[2019-10-11 17:33] LABS: Hematocrit 28.3 % (40-54); Hemoglobin 8.8 g/dL (13.0-16.5); Mean Corp Hgb Conc 31.1 g/dL (32-36); Mean Corpuscular Hgb 27.2 pg (27.0-32.0); Mean Corpuscular Volume 87.3 fL (80-94); Mean Platelet Vol. 10.2 fl (6.2-12.0); Platelet Count 130 K/mm3 (150-450); RBC Distribution Width CV 14.2 % (11.6-14.6); RBC Distribution Width SD 45.3 fl (35.1-43.9); Red Blood Count 3.24 M/mm3 (4.6-6.2); White Blood Count 5.8 K/mm3 (4.4-11.0)
[2019-10-11 17:47] LABS: Anion Gap 6 (5-15); BUN 26 mg/dL (7-18); BUN/Creat Ratio 21.3 RATIO (10-20); Calcium,Total 7.9 mg/dL (8.5-10.1); Chloride 111 mmol/L (98-107); Creatinine, Serum 1.22 mg/dL (0.70-1.30); EST Glomerular Filtration Rate 61 mL/min (>60); Est Glom Filt Rate - Afr Amer 74 mL/min (>60); Estimated Creatinine Clearance 36.91 ml/min; Glucose 111 mg/dL (74-106); Potassium 3.5 mmol/L (3.5-5.1); Sodium Level 145 mmol/L (136-145)
[2019-10-11] MEDS: Acetaminophen 500 MG Tablet 1000 MG PO (22:31)
[2019-10-11] MEDS: Senna/Docusate Sodium 1 Tablet 2 TABLET PO (22:32)
[2019-10-11] MEDS: Docusate Sodium 100 MG Capsule PO (22:32)
[2019-10-11] MEDS: Cefazolin 1 GM/50 ML BAG IV (23:52)
[2019-10-12] VITALS (13 sets, daily range): BP systolic 122–162; BP diastolic 42–74; PULSE 54–68; RESP 16–18; TEMP 36.5–36.8; O2SAT 85–95
[2019-10-12] MEDS: Lactated Ringers 1,000 ML 125 ML IV (01:11)
[2019-10-12] MEDS: Acetaminophen 500 MG Tablet 1000 MG PO ×3 (05:30→21:17)
[2019-10-12] MEDS: Levothyroxine 100 MCG Tablet PO (05:30)
[2019-10-12 06:39] LABS: Hematocrit 27.5 % (40-54); Hemoglobin 8.5 g/dL (13.0-16.5); Mean Corp Hgb Conc 30.9 g/dL (32-36); Mean Corpuscular Hgb 27.2 pg (27.0-32.0); Mean Corpuscular Volume 87.9 fL (80-94); Mean Platelet Vol. 10.8 fl (6.2-12.0); Platelet Count 136 K/mm3 (150-450); RBC Distribution Width CV 14.4 % (11.6-14.6); RBC Distribution Width SD 46.3 fl (35.1-43.9); Red Blood Count 3.13 M/mm3 (4.6-6.2); White Blood Count 6.3 K/mm3 (4.4-11.0)
[2019-10-12 07:00] LABS: Anion Gap 6 (5-15); BUN 29 mg/dL (7-18); BUN/Creat Ratio 22.1 RATIO (10-20); Calcium,Total 8.1 mg/dL (8.5-10.1); Chloride 109 mmol/L (98-107); Creatinine, Serum 1.31 mg/dL (0.70-1.30); EST Glomerular Filtration Rate 56 mL/min (>60); Est Glom Filt Rate - Afr Amer 68 mL/min (>60); Estimated Creatinine Clearance 34.38 ml/min; Glucose 123 mg/dL (74-106); Potassium 4.1 mmol/L (3.5-5.1); Sodium Level 143 mmol/L (136-145)
[2019-10-12 07:05] LABS: International Normalized Ratio 1.4; Prothrombin Time (Protime)PT. 17.3 SECONDS (11.7-14.9)
[2019-10-12] MEDS: Cefazolin 1 GM/50 ML BAG IV (08:31)
[2019-10-12] MEDS: Carvedilol 25 MG Tablet PO ×2 (08:34→16:54)
--- NOTE | 2019-10-12 09:43 | PN.ORTHO_ITS ---
Patient Problems: Active and Suspected Problems (Last Updated 10/11/19 @ 02:24 by Marely Pendleton MD) Hip fracture (Acute) Subjective: Patient doing well. Reports some pain with ambulation. Denies N/T/P. - Physical Exam Vitals/I&O's: Vital Signs Temp Pulse Resp BP Pulse Ox 98.0 F 96 18 111/62 95 10/12/19 09:31 10/12/19 09:31 10/12/19 09:31 10/12/19 09:31 10/12/19 09:31 Oxygen Flow Rate (L/min) 2 Oxygen Delivery Method Nasal Cannula Weight: 117 lb 1.047 oz Body Mass Index (BMI) 22.1 Intake and Output for Last 24 Hours 10/10/19 10/11/19 10/12/19 23:59 23:59 23:59 Intake Total 4324.34 / 4324.34 1249.83 / 1249.83 Output Total 835 / 835 410 / 410 Balance 3489.34 / 3489.34 839.83 / 839.83 General: Alert, Oriented x3, Cooperative, No apparent distress HEENT: Atraumatic Oral: Moist Mucosa Extremities: No clubbing, No cyanosis, No edema, Capillary Refill Less than 3 Seconds, No Calf Tenderness, Peripheral Pulses Normal Skin: Incision - stable Neurological: Neuro grossly intact Laboratory Results 10/11/19 10:50: WBC 7.0, RBC 3.45 L, Hgb 9.3 L, Hct 30.2 L, MCV 87.5, MCH 27.0, MCHC 30.8 L, RDW Std Deviation 46.4 H, RDW Coeff of Ej 14.6, Plt Count 159, MPV 10.4, Immature Gran % (Auto) 0.400, Neut % (Auto) 69.0, Lymph % (Auto) 16.7 L, Milam % (Auto) 13.4 H, Eos % (Auto) 0.4, Baso % (Auto) 0.1, Absolute Neuts (auto) 4.8, Absolute Lymphs (auto) 1.16, Nucleated RBC % 0 10/11/19 10:50: PT 20.7 H, INR 1.8 10/11/19 10:50: Sodium 142, Potassium 3.6, Chloride 104, Carbon Dioxide 34.0 H, Anion Gap 4 L, BUN 29 H, Creatinine 1.43 H, Estim Creat Clear Calc 31.49, Est GFR (MDRD) Af Amer 61, Est GFR (MDRD) Non-Af 51 L, BUN/Creatinine Ratio 20.3 H, Glucose 114 H, Calcium 8.0 L 10/11/19 17:24: WBC 5.8, RBC 3.24 L, Hgb 8.8 L, Hct 28.3 L, MCV 87.3, MCH 27.2, MCHC 31.1 L, RDW Std Deviation 45.3 H, RDW Coeff of Ej 14.2, Plt Count 130 L, MPV 10.2 10/11/19 17:24: Sodium 145, Potassium 3.5, Chloride 111 H, Carbon Dioxide 28.0, Anion Gap 6, BUN 26 H, Creatinine 1.22, Estim Creat Clear Calc 36.91, Est GFR (MDRD) Af Amer 74, Est GFR (MDRD) Non-Af 61, BUN/Creatinine Ratio 21.3 H, Glucose 111 H, Calcium 7.9 L 10/12/19 06:10: WBC 6.3, RBC 3.13 L, Hgb 8.5 L, Hct 27.5 L, MCV 87.9, MCH 27.2, MCHC 30.9 L, RDW Std Deviation 46.3 H, RDW Coeff of Ej 14.4, Plt Count 136 L, MPV 10.8 10/12/19 06:10: Sodium 143, Potassium 4.1, Chloride 109 H, Carbon Dioxide 28.0, Anion Gap 6, BUN 29 H, Creatinine 1.31 H, Estim Creat Clear Calc 34.38, Est GFR (MDRD) Af Amer 68, Est GFR (MDRD) Non-Af 56 L, BUN/Creatinine Ratio 22.1 H, Glucose 123 H, Calcium 8.1 L 10/12/19 06:10: PT 17.3 H, INR 1.4 Current Medications Acetaminophen (Tylenol) 1,000 mg PO Q8 [facility] Last Admin: 10/12/19 05:30 Dose: 1,000 mg Documented by: Albuterol Sulfate (Ventolin Aerosols) 2.5 mg INHALATION Q4H PRN PRN PRN Reason: Shortness of breath, wheezing Albuterol/Ipratropium (Duoneb) 3 ml INHALATION Q6H.RT PRN PRN Reason: SOB &/OR WHEEZING Amiodarone HCl (Cordarone) 200 mg PO DAILY [facility] Last Admin: 10/11/19 08:05 Dose: 200 mg Documented by: [facility] ([facility]) [facility] Last Admin: 10/12/19 08:34 Dose: 25 mg Documented by: Docusate Sodium (Colace) 100 mg PO BID [facility] Last Admin: 10/11/19 22:32 Dose: 100 mg Documented by: Furosemide (Lasix) 40 mg PO DAILY [facility] Hydromorphone HCl (Dilaudid Inj) 1 mg IV Q4H PRN PRN PRN Reason: Pain Score 6-10/10 Last Admin: 10/11/19 04:17 Dose: 1 mg Documented by: Sodium Chloride () 500 mls @ 15 mls/hr IV PRN PRN PRN Reason: Blood Transfusion Sodium Chloride () 250 mls @ 15 mls/hr IV .[id number] PRN PRN Reason: Saline Flush Sodium Chloride () 250 mls @ 15 mls/hr IV .[id number] PRN PRN Reason: Additional IVPB Infusion Lactated Ringer's () 1,000 mls @ 125 mls/hr IV .Q8H [facility] Last Infusion: 10/12/19 08:51 Dose: 125 mls/hr Documented by: Levothyroxine Sodium (Synthroid) 100 mcg PO DAILY@0600 [facility] Last Admin: 10/12/19 05:30 Dose: 100 mcg Documented by: Magnesium Hydroxide (Milk Of Magnesia) 30 ml PO DAILY PRN PRN PRN Reason: Constipation Ondansetron HCl (Zofran) 4 mg IV Q8H PRN PRN PRN Reason: NAUSEA Oxycodone HCl (Oxyir) 5 mg PO Q4H PRN PRN PRN Reason: Pain Score 4-5/10 Promethazine HCl (Phenergan) 12.5 mg IM Q6H PRN PRN; Protocol PRN Reason: NAUSEA/VOMITING Ramipril (Altace) 10 mg PO BID [facility] Last Admin: 10/11/19 22:32 Dose: 10 mg Documented by: Senna/Docusate Sodium (Senokot-S, Ayala-Colace) 2 tablet PO BID [facility] Last Admin: 10/11/19 22:32 Dose: 2 tablet Documented by: Sodium Chloride () 10 - 40 ml IV UD PRN PRN Reason: SALINE FLUSH Last Admin: 10/11/19 08:04 Dose: 10 ml Documented by: Medical Necessity - Tobacco Use Smoking Status: Smoker, status unknown Tobacco Use: Cigarettes Assessment/Plan All Active Problems (Last Updated 10/11/19 @ 02:24 by Marely Pendleton MD) Hip fracture (Acute) s/p Hemiarthroplasty right hip Continue PT with [facility] ECF placement when medically stable and bed available
[2019-10-12] MEDS: Docusate Sodium 100 MG Capsule PO ×2 (10:07→21:17)
[2019-10-12] MEDS: Ramipril 10 MG Capsule PO ×2 (10:07→21:17)
[2019-10-12] MEDS: Amiodarone 200 MG Tablet PO (10:08)
[2019-10-12] MEDS: Furosemide 40 MG Tablet PO (10:08)
[2019-10-12] MEDS: Senna/Docusate Sodium 1 Tablet 2 TABLET PO ×2 (10:09→21:18)
[2019-10-12] MEDS: 0.9% Saline Lock 10 ML Syringe IV (10:10)
--- NOTE | 2019-10-12 10:23 | PCM.PN.CARD ---
Subjectve: Patient doing well this morning, status post hip fracture repair. The patient was actually up this morning with a walker without much difficulty. No chest pain or anginal symptoms. Telemetry negative. Stress test yesterday negative for overt ischemia. Objective: Vital Signs Temp Pulse Resp BP Pulse Ox 97.8 F 63 18 122/47 H 95 10/12/19 10:02 10/12/19 10:02 10/12/19 10:02 10/12/19 10:02 10/12/19 10:02 Oxygen Flow Rate (L/min) 1 Oxygen Delivery Method Nasal Cannula Weight: 117 lb 1.047 oz Body Mass Index (BMI) 22.1 Intake and Output for Last 24 Hours 10/10/19 10/11/19 10/12/19 23:59 23:59 23:59 Intake Total 4324.34 / 4324.34 1331.08 / 1331.08 Output Total 835 / 835 410 / 410 Balance 3489.34 / 3489.34 921.08 / 921.08 General: Awake, Alert, Oriented x 3 HEENT: PERRL, EOMI, Sclera Non Icteric Neck: Supple, Good ROM, No Lymph Node Enlargement Lungs: Clear to auscultation Cardiovascular: Regular Rhythm, Normal S1, Normal S2, No Murmurs, No Rubs, No Gallops Vascular: No Carotid Bruits, Normal Femoral Pulses, Normal Radial Pulses, Normal Dorsalis Pedal Pulse, Normal Posterior Tibial Pulses Abdomen: Bowel Sounds Present, Soft, Non Tender, No HSM, No Organomegaly Extremities: No Cyanosis, No Clubbing, No edema Neurological: No Focal Motor or Sensory Deficit 10/11/19 10:50: WBC 7.0, RBC 3.45 L, Hgb 9.3 L, Hct 30.2 L, MCV 87.5, MCH 27.0, MCHC 30.8 L, Plt Count 159, MPV 10.4, Immature Gran % (Auto) 0.400, Neut % (Auto) 69.0, Lymph % (Auto) 16.7 L, Schleicher % (Auto) 13.4 H, Eos % (Auto) 0.4, Baso % (Auto) 0.1, Absolute Neuts (auto) 4.8, Nucleated RBC % 0 10/11/19 10:50: PT 20.7 H, INR 1.8 10/11/19 10:50: Sodium 142, Potassium 3.6, Chloride 104, Carbon Dioxide 34.0 H, Anion Gap 4 L, BUN 29 H, Creatinine 1.43 H, Est GFR (MDRD) Af Amer 61, Est GFR (MDRD) Non-Af 51 L, BUN/Creatinine Ratio 20.3 H, Glucose 114 H, Calcium 8.0 L 10/11/19 17:24: WBC 5.8, RBC 3.24 L, Hgb 8.8 L, Hct 28.3 L, MCV 87.3, MCH 27.2, MCHC 31.1 L, Plt Count 130 L, MPV 10.2 10/11/19 17:24: Sodium 145, Potassium 3.5, Chloride 111 H, Carbon Dioxide 28.0, Anion Gap 6, BUN 26 H, Creatinine 1.22, Est GFR (MDRD) Af Amer 74, Est GFR (MDRD) Non-Af 61, BUN/Creatinine Ratio 21.3 H, Glucose 111 H, Calcium 7.9 L 10/12/19 06:10: WBC 6.3, RBC 3.13 L, Hgb 8.5 L, Hct 27.5 L, MCV 87.9, MCH 27.2, MCHC 30.9 L, Plt Count 136 L, MPV 10.8 10/12/19 06:10: Sodium 143, Potassium 4.1, Chloride 109 H, Carbon Dioxide 28.0, Anion Gap 6, BUN 29 H, Creatinine 1.31 H, Est GFR (MDRD) Af Amer 68, Est GFR (MDRD) Non-Af 56 L, BUN/Creatinine Ratio 22.1 H, Glucose 123 H, Calcium 8.1 L 10/12/19 06:10: PT 17.3 H, INR 1.4 Rhythm: EKG: ECHO: Stress Test: Cardiac Cath: PCI: CT Surgery: Holter monitor: EPS: PPM: CXR: Chest CT Scan: Medical Necessity - Tobacco Use Smoking Status: Smoker, status unknown Tobacco Use: Cigarettes Assessment/Plan 1. Coronary artery disease: The patient has had no exertional anginal symptoms prior to his fall, and had no anginal symptoms during his dobutamine echocardiogram. His dobutamine echocardiogram shows no overt ischemia, and his EKG during the dobutamine was negative. At this point the patient underwent right hip fracture repair surgery, which was a success, but I would recommend judicious use of IV fluids given his mild global LV dysfunction, and history of pulmonary embolism. Would recommend also continuing his antihypertensive medications to avoid flash pulmonary edema. He is approximately 4.5 L positive with his IV fluids, and would recommend Lasix 40 mg p.o. daily, and additional IV Lasix should the patient have any tachypnea. It appears the patient is fairly hypertensive most likely result of the severe pain in his hip, I would recommend moderately aggressive pain management to assist with hypertension. I do not believe the patient requires a diagnostic coronary angiogram prior to his hip fracture surgery. He will continue baby aspirin going forward. 2. Pulmonary embolism: The patient has a history of pulmonary embolism superimposed on paroxysmal atrial fibrillation. He is currently on amiodarone for atrial fibrillation. Would recommend subcu Lovenox and SCDs for DVT prophylaxis. Patient reverted back from atrial fibrillation during his dobutamine echo back to normal sinus rhythm. 3. Paroxysmal atrial fibrillation: The patient was in normal sinus rhythm upon arrival, but developed atrial fibrillation during his dobutamine infusion which spontaneously converted back to normal sinus rhythm. He is currently on amiodarone therapy would recommend continuing amiodarone 200 mg a day. Recommend continuing his metoprolol 100 mg p.o. twice daily and Lasix 40 mg a day. Patient was found to be toxic with an INR of 7.9 upon arrival, which is reduced to 1.8. Would recommend restarting Coumadin as soon as possible after his surgery per surgical recommendations. 4. Hypertension: Again I believe the patient's hypertension is triggered by his extreme pain, I would recommend aggressive pain control to assist with blood pressure control. Continue metoprolol, Lasix, restarting ramipril 10 mg p.o. bid for afterload reduction and LV dysfunction. 5. Hyperlipidemia: Recommend starting a statin based medications dose of Zocor 20 mg p.o. nightly after his hip surgery has been repaired. 6. Thank you very much for the opportunity to participate in the cardiac care of your patient. Code Visit Inpatient E&M: 79714 Subs Hosp L2
--- NOTE | 2019-10-12 11:45 | CASEMGMT ---
SOCIAL WORK DISCUSSED CASE WITH DR. Lundy AND WITH PATIENT. PLAN IS FOR TCU, PATIENT ALREADY ON REFERRAL LIST. Valerio PATRICK, STERILIZATION TECHNICIAN, [employer].
--- NOTE | 2019-10-12 13:16 | NURSING ---
Sloane Mahan RN made this nurse aware that pt did not have SCD's on. Pt states he never had any on. Dr. Buenrostro aware that he never had any on and that INR was initally high and now its 1.4. said it was okay to put SCD's on.
--- NOTE | 2019-10-12 15:35 | PCM.PROGNOTE ---
Patient Problems: Active and Suspected Problems (Last Updated 10/11/19 @ 02:24 by Marely Pendleton MD) Hip fracture (Acute) Subjective: Patient was seen and examined today, nursing states that he has been coughing up some yellow sputum, patient however is afebrile and his white blood cell count is normal. He is currently only on 1 L of oxygen. We are currently awaiting approval for transfer to a skilled inpatient facility, this will probably happen on Monday. - Physical Exam Vitals/I&O's: Vital Signs Temp Pulse Resp BP Pulse Ox 97.7 F L 63 18 149/57 H 95 10/12/19 12:53 10/12/19 12:53 10/12/19 12:53 10/12/19 12:53 10/12/19 12:53 Oxygen Flow Rate (L/min) 1 Oxygen Delivery Method Nasal Cannula Weight: 53.1 kg Body Mass Index (BMI) 22.1 Intake and Output for Last 24 Hours 10/10/19 10/11/19 10/12/19 23:59 23:59 23:59 Intake Total 4324.34 / 4324.34 1781.08 / 1781.08 Output Total 835 / 835 560 / 560 Balance 3489.34 / 3489.34 1221.08 / 1221.08 General: Alert, Oriented x3, Cooperative, No apparent distress, Well developed, Well nourished HEENT: Atraumatic, PERRLA, EOMI, Normocephalic Oral: Moist Mucosa Neck: Supple, Trachea Midline, Thyroid Normal Size and Texture Lungs: Clear to auscultation, Normal air movement, No rhonchi, No wheeze, No rales Cardiovascular: Regular rate, Regular Rhythm, Normal S1, Normal S2, No murmurs Abdomen: Bowel Sounds Present, Soft, Non Tender, Non-Distended, No hernias noted Extremities: No clubbing, No cyanosis, Capillary Refill Less than 3 Seconds Skin: No rashes Neurological: Cranial nerves II-XII grossly intact, Neuro grossly intact, Sensory exam intact to light touch and pain Psych/Mental Status: Normal Affect, Appropriate, Alert and oriented to time, place, person, mood and affect Laboratory Results 10/11/19 17:24: WBC 5.8, RBC 3.24 L, Hgb 8.8 L, Hct 28.3 L, MCV 87.3, MCH 27.2, MCHC 31.1 L, RDW Std Deviation 45.3 H, RDW Coeff of Ej 14.2, Plt Count 130 L, MPV 10.2 10/11/19 17:24: Sodium 145, Potassium 3.5, Chloride 111 H, Carbon Dioxide 28.0, Anion Gap 6, BUN 26 H, Creatinine 1.22, Estim Creat Clear Calc 36.91, Est GFR (MDRD) Af Amer 74, Est GFR (MDRD) Non-Af 61, BUN/Creatinine Ratio 21.3 H, Glucose 111 H, Calcium 7.9 L 10/12/19 06:10: WBC 6.3, RBC 3.13 L, Hgb 8.5 L, Hct 27.5 L, MCV 87.9, MCH 27.2, MCHC 30.9 L, RDW Std Deviation 46.3 H, RDW Coeff of Ej 14.4, Plt Count 136 L, MPV 10.8 10/12/19 06:10: Sodium 143, Potassium 4.1, Chloride 109 H, Carbon Dioxide 28.0, Anion Gap 6, BUN 29 H, Creatinine 1.31 H, Estim Creat Clear Calc 34.38, Est GFR (MDRD) Af Amer 68, Est GFR (MDRD) Non-Af 56 L, BUN/Creatinine Ratio 22.1 H, Glucose 123 H, Calcium 8.1 L 10/12/19 06:10: PT 17.3 H, INR 1.4 Current Medications Acetaminophen (Tylenol) 1,000 mg PO Q8 [facility] Last Admin: 10/12/19 13:46 Dose: 1,000 mg Documented by: Albuterol Sulfate (Ventolin Aerosols) 2.5 mg INHALATION Q4H PRN PRN PRN Reason: Shortness of breath, wheezing Albuterol/Ipratropium (Duoneb) 3 ml INHALATION Q6H.RT PRN PRN Reason: SOB &/OR WHEEZING Amiodarone HCl (Cordarone) 200 mg PO DAILY [facility] Last Admin: 10/12/19 10:08 Dose: 200 mg Documented by: [facility]) [facility] Last Admin: 10/12/19 08:34 Dose: 25 mg Documented by: Docusate Sodium (Colace) 100 mg PO BID [facility] Last Admin: 10/12/19 10:07 Dose: 100 mg Documented by: Furosemide (Lasix) 40 mg PO DAILY [facility] Last Admin: 10/12/19 10:08 Dose: 40 mg Documented by: Hydromorphone HCl (Dilaudid Inj) 1 mg IV Q4H PRN PRN PRN Reason: Pain Score 6-10/10 Last Admin: 10/11/19 04:17 Dose: 1 mg Documented by: Sodium Chloride () 500 mls @ 15 mls/hr IV PRN PRN PRN Reason: Blood Transfusion Sodium Chloride () 250 mls @ 15 mls/hr IV .[id number] PRN PRN Reason: Saline Flush Sodium Chloride () 250 mls @ 15 mls/hr IV .[id number] PRN PRN Reason: Additional IVPB Infusion Lactated Ringer's () 1,000 mls @ 125 mls/hr IV .Q8H [facility] Last Infusion: 10/12/19 10:10 Dose: Infused Documented by: Levothyroxine Sodium (Synthroid) 100 mcg PO DAILY@0600 [facility] Last Admin: 10/12/19 05:30 Dose: 100 mcg Documented by: Magnesium Hydroxide (Milk Of Magnesia) 30 ml PO DAILY PRN PRN PRN Reason: Constipation Ondansetron HCl (Zofran) 4 mg IV Q8H PRN PRN PRN Reason: NAUSEA Oxycodone HCl (Oxyir) 5 mg PO Q4H PRN PRN PRN Reason: Pain Score 4-5/10 Promethazine HCl (Phenergan) 12.5 mg IM Q6H PRN PRN; Protocol PRN Reason: NAUSEA/VOMITING Ramipril (Altace) 10 mg PO BID [facility] Last Admin: 10/12/19 10:07 Dose: 10 mg Documented by: Senna/Docusate Sodium (Senokot-S, Ayala-Colace) 2 tablet PO BID [facility] Last Admin: 10/12/19 10:09 Dose: 2 tablet Documented by: Sodium Chloride () 10 - 40 ml IV UD PRN PRN Reason: SALINE FLUSH Last Admin: 10/12/19 10:10 Dose: 10 ml Documented by: Warfarin Sodium (Coumadin (Pbkc)) 3 mg PO DAILY@1700 [facility] Medical Necessity - Tobacco Use Smoking Status: Smoker, status unknown Tobacco Use: Cigarettes Assessment/Plan All Active Problems (Last Updated 10/11/19 @ 02:24 by Marely Pendleton MD) Hip fracture (Acute) #1 right hip fracture right femoral neck-status post hemiarthroplasty postop day #1-continue PT and OT #2 coronary artery disease-stable at this time #3 paroxysmal atrial fibrillation #4 essential hypertension #5 hyperlipidemia #6 stage III chronic kidney disease #7 chronic anemia-etiology unclear #8 supratherapeutic INR-corrected with administration of plasma Patient will be started back on warfarin today Code Visit Inpatient E&M: 02960 Subs Hosp L2
[2019-10-13] VITALS (7 sets, daily range): BP systolic 128–146; BP diastolic 44–63; PULSE 61–74; RESP 16–18; TEMP 36.1–36.7; O2SAT 92–94
[2019-10-13] MEDS: Acetaminophen 500 MG Tablet 1000 MG PO ×3 (05:39→22:38)
[2019-10-13] MEDS: Levothyroxine 100 MCG Tablet PO (05:39)
--- NOTE | 2019-10-13 05:47 | NURSING ---
at 0530, no void in over 9 hours, Prevoid scan 424 ml, voided 50 ml, straight cath for 375ml per Order from Dr. Yan. Emptied cloudy yellow urine. Procedure well tolerated.
[2019-10-13 06:23] LABS: International Normalized Ratio 1.6; Prothrombin Time (Protime)PT. 19.3 SECONDS (11.7-14.9)
[2019-10-13] MEDS: Ramipril 10 MG Capsule PO ×2 (08:56→22:38)
[2019-10-13] MEDS: Carvedilol 25 MG Tablet PO ×2 (08:56→17:07)
[2019-10-13] MEDS: Furosemide 40 MG Tablet PO (08:57)
[2019-10-13] MEDS: Senna/Docusate Sodium 1 Tablet 2 TABLET PO ×2 (08:57→22:38)
[2019-10-13] MEDS: Docusate Sodium 100 MG Capsule PO (08:57)
[2019-10-13] MEDS: Amiodarone 200 MG Tablet PO (08:57)
--- NOTE | 2019-10-13 10:27 | PCM.PN.CARD ---
Subjectve: Patient doing very well this morning, walked around the hallway with his walker, no chest pain or anginal symptoms, no shortness of breath. Telemetry showed normal sinus rhythm, no arrhythmias noted. Objective: Vital Signs Temp Pulse Resp BP Pulse Ox 98.1 F 65 18 135/63 H 92 10/13/19 03:27 10/13/19 07:59 10/13/19 03:27 10/13/19 03:27 10/13/19 09:06 Oxygen Flow Rate (L/min) 1 Oxygen Delivery Method Nasal Cannula Weight: 117 lb 1.047 oz Body Mass Index (BMI) 22.1 Intake and Output for Last 24 Hours 10/11/19 10/12/19 10/13/19 23:59 23:59 23:59 Intake Total 4324.34 / 4324.34 2206.08 / 2606.08 1200 / 1200 Output Total 835 / 835 635 / 960 750 / 750 Balance 3489.34 / 3489.34 1571.08 / 1646.08 450 / 450 General: Awake, Alert, Oriented x 3 HEENT: PERRL, EOMI, Sclera Non Icteric Neck: Supple, Good ROM, No Lymph Node Enlargement Lungs: Clear to auscultation Cardiovascular: Regular Rhythm, Normal S2, No Rubs, No Gallops Murmur Murmur: Grade 3/6, Crescendo-Decrescendo Vascular: No Carotid Bruits, Normal Femoral Pulses, Normal Radial Pulses, Normal Dorsalis Pedal Pulse, Normal Posterior Tibial Pulses Abdomen: Bowel Sounds Present, Soft, Non Tender, No HSM, No Organomegaly Extremities: No Cyanosis, No Clubbing, No edema Neurological: No Focal Motor or Sensory Deficit 10/13/19 05:10: PT 19.3 H, INR 1.6 Rhythm: EKG: ECHO: Stress Test: Cardiac Cath: PCI: CT Surgery: Holter monitor: EPS: PPM: CXR: Chest CT Scan: Medical Necessity - Tobacco Use Smoking Status: Smoker, status unknown Tobacco Use: Cigarettes Assessment/Plan 1. Coronary artery disease: The patient has had no exertional anginal symptoms prior to his fall, and had no anginal symptoms during his dobutamine echocardiogram. His dobutamine echocardiogram shows no overt ischemia, and his EKG during the dobutamine was negative. At this point the patient underwent right hip fracture repair surgery, which was a success, but I would recommend judicious use of IV fluids given his mild global LV dysfunction, and history of pulmonary embolism. Would recommend also continuing his antihypertensive medications to avoid flash pulmonary edema. Despite his positive fluid balance, the patient is asymptomatic and denies any chest pain or shortness of breath. He has no edema. Continue antihypertensive therapy and Lasix as outlined in the MRF. I do not believe the patient requires a diagnostic coronary angiogram prior to his hip fracture surgery. He will continue baby aspirin going forward. 2. Pulmonary embolism: The patient has a history of pulmonary embolism superimposed on paroxysmal atrial fibrillation. He is currently on amiodarone for atrial fibrillation. Would recommend subcu Lovenox and SCDs for DVT prophylaxis. Patient reverted back from atrial fibrillation during his dobutamine echo back to normal sinus rhythm. 3. Paroxysmal atrial fibrillation: The patient was in normal sinus rhythm upon arrival, but developed atrial fibrillation during his dobutamine infusion which spontaneously converted back to normal sinus rhythm. He is currently on amiodarone therapy would recommend continuing amiodarone 200 mg a day. Recommend continuing his metoprolol 100 mg p.o. twice daily and Lasix 40 mg a day. Patient was found to be toxic with an INR of 7.9 upon arrival, which is reduced to 1.8. Would recommend restarting Coumadin as soon as possible after his surgery per surgical recommendations. 4. Hypertension: His blood pressure is much better controlled now that he has had surgical correction of his hip pain. Continue antihypertensive therapy as outlined in the MRF. 5. Hyperlipidemia: Recommend starting a statin based medications dose of Zocor 20 mg p.o. nightly after his hip surgery has been repaired. 6. Thank you very much for the opportunity to participate in the cardiac care of your patient. We will sign off. Patient may follow-up with Dr. Jones going forward.
--- NOTE | 2019-10-13 10:46 | PCM.PN.ORT ---
Patient Problems: Active and Suspected Problems (Last Updated 10/11/19 @ 02:24 by Marely Pendleton MD) Hip fracture (Acute) Subjective: Patient doing well. Up in chair. Had PT this AM. - Physical Exam Vitals/I&O's: Vital Signs Temp Pulse Resp BP Pulse Ox 98.1 F 65 18 135/63 H 92 10/13/19 03:27 10/13/19 07:59 10/13/19 03:27 10/13/19 03:27 10/13/19 09:06 Oxygen Flow Rate (L/min) 1 Oxygen Delivery Method Nasal Cannula Weight: 117 lb 1.047 oz Body Mass Index (BMI) 22.1 Intake and Output for Last 24 Hours 10/11/19 10/12/19 10/13/19 23:59 23:59 23:59 Intake Total 4324.34 / 4324.34 2206.08 / 2606.08 1200 / 1200 Output Total 835 / 835 635 / 960 750 / 750 Balance 3489.34 / 3489.34 1571.08 / 1646.08 450 / 450 General: Alert, Oriented x3, Cooperative, No apparent distress Extremities: No clubbing, No cyanosis, No edema, Capillary Refill Less than 3 Seconds, No Calf Tenderness Skin: Incision - stable Laboratory Results 10/13/19 05:10: PT 19.3 H, INR 1.6 Current Medications Acetaminophen (Tylenol) 1,000 mg PO Q8 [facility] Last Admin: 10/13/19 05:39 Dose: 1,000 mg Documented by: Albuterol Sulfate (Ventolin Aerosols) 2.5 mg INHALATION Q4H PRN PRN PRN Reason: Shortness of breath, wheezing Albuterol/Ipratropium (Duoneb) 3 ml INHALATION Q6H.RT PRN PRN Reason: SOB &/OR WHEEZING Amiodarone HCl (Cordarone) 200 mg PO DAILY [facility] Last Admin: 10/13/19 08:57 Dose: 200 mg Documented by: [facility]) [facility] Last Admin: 10/13/19 08:56 Dose: 25 mg Documented by: Docusate Sodium (Colace) 100 mg PO BID [facility] Last Admin: 10/13/19 08:57 Dose: 100 mg Documented by: Furosemide (Lasix) 40 mg PO DAILY [facility] Last Admin: 10/13/19 08:57 Dose: 40 mg Documented by: Hydromorphone HCl (Dilaudid Inj) 1 mg IV Q4H PRN PRN PRN Reason: Pain Score 6-10/10 Last Admin: 10/11/19 04:17 Dose: 1 mg Documented by: Sodium Chloride () 500 mls @ 15 mls/hr IV PRN PRN PRN Reason: Blood Transfusion Sodium Chloride () 250 mls @ 15 mls/hr IV .[id number] PRN PRN Reason: Saline Flush Sodium Chloride () 250 mls @ 15 mls/hr IV .[id number] PRN PRN Reason: Additional IVPB Infusion Levothyroxine Sodium (Synthroid) 100 mcg PO DAILY@0600 [facility] Last Admin: 10/13/19 05:39 Dose: 100 mcg Documented by: Magnesium Hydroxide (Milk Of Magnesia) 30 ml PO DAILY PRN PRN PRN Reason: Constipation Ondansetron HCl (Zofran) 4 mg IV Q8H PRN PRN PRN Reason: NAUSEA Oxycodone HCl (Oxyir) 5 mg PO Q4H PRN PRN PRN Reason: Pain Score 4-5/10 Promethazine HCl (Phenergan) 12.5 mg IM Q6H PRN PRN; Protocol PRN Reason: NAUSEA/VOMITING Ramipril (Altace) 10 mg PO BID [facility] Last Admin: 10/13/19 08:56 Dose: 10 mg Documented by: Senna/Docusate Sodium (Senokot-S, Ayala-Colace) 2 tablet PO BID [facility] Last Admin: 10/13/19 08:57 Dose: 2 tablet Documented by: Sodium Chloride () 10 - 40 ml IV UD PRN PRN Reason: SALINE FLUSH Last Admin: 10/12/19 10:10 Dose: 10 ml Documented by: Warfarin Sodium (Coumadin (Pbkc)) 3 mg PO DAILY@1700 [facility] Last Admin: 10/12/19 16:54 Dose: 3 mg Documented by: Medical Necessity - Tobacco Use Smoking Status: Smoker, status unknown Tobacco Use: Cigarettes Assessment/Plan All Active Problems (Last Updated 10/11/19 @ 02:24 by Marely Pendleton MD) Hip fracture (Acute) s/p Hemiarthroplasty right hip Continue PT with [facility] Probably to TCU tomorrow Change silver dressing Monday D/c moises on 10/21 Follow up in office upon d/c from [facility] off case for now. Will re-evaluate at your request.
[2019-10-13] MEDS: Tamsulosin HCl 0.4 MG Capsule 0.8 MG PO (11:45)
--- NOTE | 2019-10-13 15:34 | PN_ITS ---
Patient Problems: Active and Suspected Problems (Last Updated 10/11/19 @ 02:24 by Marely Pendleton MD) Hip fracture (Acute) Subjective: Patient was seen and examined today, he remains in sinus rhythm at this time, I do not feel he needs to be monitored on telemetry any longer. Patient has been having some voiding difficulties, I have started the patient on Flomax. Patient's INR today was 1.6. - Physical Exam Vitals/I&O's: Vital Signs Temp Pulse Resp BP Pulse Ox 97.7 F L 65 18 128/44 H 93 10/13/19 14:15 10/13/19 14:15 10/13/19 14:15 10/13/19 14:15 10/13/19 14:15 Oxygen Flow Rate (L/min) 1 Oxygen Delivery Method Room Air Weight: 53.1 kg Body Mass Index (BMI) 22.1 Intake and Output for Last 24 Hours 10/11/19 10/12/19 10/13/19 23:59 23:59 23:59 Intake Total 4324.34 / 4324.34 2206.08 / 2606.08 1800 / 1800 Output Total 835 / 835 635 / 960 1050 / 1050 Balance 3489.34 / 3489.34 1571.08 / 1646.08 750 / 750 General: Alert, Oriented x3, Cooperative, No apparent distress, Well developed HEENT: Atraumatic, PERRLA, EOMI, Normocephalic Oral: Moist Mucosa Neck: Supple, No JVD, Negative Carotid Bruits, Trachea Midline, Thyroid Normal Size and Texture Lungs: Clear to auscultation, Normal air movement, No rhonchi, No wheeze, No rales Cardiovascular: Regular rate, Regular Rhythm, Normal S1, Normal S2, No murmurs, PMI Normal, No rub noted Abdomen: Bowel Sounds Present, Soft, Non Tender, Non-Distended Extremities: No clubbing, No cyanosis, Capillary Refill Less than 3 Seconds Skin: No rashes, No breakdown Neurological: Cranial nerves II-XII grossly intact, Neuro grossly intact, Sensory exam intact to light touch and pain Psych/Mental Status: Normal Affect, Appropriate, Alert and oriented to time, place, person, mood and affect Laboratory Results 10/13/19 05:10: PT 19.3 H, INR 1.6 Current Medications Acetaminophen (Tylenol) 1,000 mg PO Q8 [facility] Last Admin: 10/13/19 14:17 Dose: 1,000 mg Documented by: Albuterol Sulfate (Ventolin Aerosols) 2.5 mg INHALATION Q4H PRN PRN PRN Reason: Shortness of breath, wheezing Albuterol/Ipratropium (Duoneb) 3 ml INHALATION Q6H.RT PRN PRN Reason: SOB &/OR WHEEZING Amiodarone HCl (Cordarone) 200 mg PO DAILY [facility] Last Admin: 10/13/19 08:57 Dose: 200 mg Documented by: [facility] Last Admin: 10/13/19 08:56 Dose: 25 mg Documented by: Docusate Sodium (Colace) 100 mg PO BID [facility] Last Admin: 10/13/19 08:57 Dose: 100 mg Documented by: Furosemide (Lasix) 40 mg PO DAILY [facility] Last Admin: 10/13/19 08:57 Dose: 40 mg Documented by: Hydromorphone HCl (Dilaudid Inj) 1 mg IV Q4H PRN PRN PRN Reason: Pain Score 6-10/10 Last Admin: 10/11/19 04:17 Dose: 1 mg Documented by: Sodium Chloride () 500 mls @ 15 mls/hr IV PRN PRN PRN Reason: Blood Transfusion Sodium Chloride () 250 mls @ 15 mls/hr IV .[id number] PRN PRN Reason: Saline Flush Sodium Chloride () 250 mls @ 15 mls/hr IV .[id number] PRN PRN Reason: Additional IVPB Infusion Levothyroxine Sodium (Synthroid) 100 mcg PO DAILY@0600 [facility] Last Admin: 10/13/19 05:39 Dose: 100 mcg Documented by: Magnesium Hydroxide (Milk Of Magnesia) 30 ml PO DAILY PRN PRN PRN Reason: Constipation Ondansetron HCl (Zofran) 4 mg IV Q8H PRN PRN PRN Reason: NAUSEA Oxycodone HCl (Oxyir) 5 mg PO Q4H PRN PRN PRN Reason: Pain Score 4-5/10 Promethazine HCl (Phenergan) 12.5 mg IM Q6H PRN PRN; Protocol PRN Reason: NAUSEA/VOMITING Ramipril (Altace) 10 mg PO BID [facility] Last Admin: 10/13/19 08:56 Dose: 10 mg Documented by: Senna/Docusate Sodium (Senokot-S, Ayala-Colace) 2 tablet PO BID [facility] Last Admin: 10/13/19 08:57 Dose: 2 tablet Documented by: Sodium Chloride () 10 - 40 ml IV UD PRN PRN Reason: SALINE FLUSH Last Admin: 10/12/19 10:10 Dose: 10 ml Documented by: Tamsulosin HCl (Flomax) 0.8 mg PO DAILY@1730 [facility] Last Admin: 10/13/19 11:45 Dose: 0.8 mg Documented by: Warfarin Sodium (Coumadin (Pbkc)) 3 mg PO DAILY@1700 [facility] Last Admin: 10/12/19 16:54 Dose: 3 mg Documented by: Medical Necessity - Tobacco Use Smoking Status: Smoker, status unknown Tobacco Use: Cigarettes Assessment/Plan All Active Problems (Last Updated 10/11/19 @ 02:24 by Marely Pendleton MD) Hip fracture (Acute) #1 right hip fracture right femoral neck-status post hemiarthroplasty postop day #2-continue PT and OT, patient may be stable for discharge to TCU tomorrow #2 coronary artery disease-stable at this time #3 paroxysmal atrial fibrillation #4 essential hypertension #5 hyperlipidemia #6 stage III chronic kidney disease #7 chronic anemia-etiology unclear, recheck H&H tomorrow #8 supratherapeutic INR-corrected with administration of plasma, warfarin was started yesterday, recheck INR tomorrow Code Visit Inpatient E&M: 87603 Subs Hosp L2
[2019-10-14 03:00] VITALS: BP 156/67; PULSE 66; RESP 18; TEMP 36.7; O2SAT 94
[2019-10-14] MEDS: Levothyroxine 100 MCG Tablet PO (05:34)
[2019-10-14] MEDS: Acetaminophen 500 MG Tablet 1000 MG PO (05:34)
[2019-10-14 05:40] LABS: Hematocrit 25.4 % (40-54); Hemoglobin 7.9 g/dL (13.0-16.5)
[2019-10-14 05:52] LABS: International Normalized Ratio 2.6; Prothrombin Time (Protime)PT. 28.3 SECONDS (11.7-14.9)
[2019-10-14 07:16] VITALS: O2SAT 93
[2019-10-14] MEDS: Amiodarone 200 MG Tablet PO (08:34)
[2019-10-14] MEDS: Furosemide 40 MG Tablet PO (08:34)
[2019-10-14] MEDS: Carvedilol 25 MG Tablet PO (08:34)
[2019-10-14] MEDS: Ramipril 10 MG Capsule PO (08:34)
--- NOTE | 2019-10-14 08:46 | PCM.TXEXTCAR ---
- Diet 10/11/19 17:51 Diet: Cardiac/Low Cholesterol Is pt able to select menu?: Yes - Wound(s) rt hip Wound Type: Surgical Incision - Therapies Weight Bearing: Weight bearing as tolerated Physical Therapy: Eval and Treat Occupational Therapy: Eval and Treat - Allergies/Procedures Done in Hospital Allergies/Adverse Reactions: Allergies No Known Allergies Allergy (Verified 10/11/19 00:04) - Type of Care/Length of Stay Estimated LOS: Convalescent Care Less Than 30 days Type of Care Needed: Skilled Rehab Potential: Good Prognosis: Good - Additional Orders/Day of Discharge Day of Discharge: 10/14/19 - Follow Up Care Primary Care Physician: Ihsan Modi MD [Primary Care Provider] - Please Follow Up With: Gilberto Bush MD When: IN 1-2 WEEKS
[2019-10-14 08:50] VITALS: BP 143/63; PULSE 71; RESP 16; TEMP 36.6; O2SAT 95
--- NOTE | 2019-10-14 08:50 | PCM.DC.SUM ---
Discharge Date and Diagnosis - Problem List Patient Problems: Active and Suspected Problems (Last Updated 10/11/19 @ 02:24 by Marely Pendleton MD) Hip fracture (Acute) Date of Admission: 10/11/19 Date of Discharge: 10/14/19 - Primary Discharge Diagnosis Active and Suspected Problems (Last Updated 10/11/19 @ 02:24 by Marely Pendleton MD) Hip fracture (Acute) - Secondary Discharge Diagnosis Chronic Problems (Last Updated 10/11/19 @ 02:24 by Marely Pendleton MD) Mixed hyperlipidemia (Chronic) Chronic heart failure with preserved ejection fraction (Chronic) History of aortic valve repair (Chronic ~10/28/07) Hx of repair of ascending aorta (Chronic ~10/28/07) 32mm [place] graft 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 Acute, displaced subcapital fracture of the right femoral neck. 2. No hip dislocation. 3. Extensive atherosclerotic calcifications. at 0208 Reported and signed by: Preston Mora MD Electronically Signed: Preston Mora, at 2:06 EST Tel , Service support , Chest X-Ray 10/11/19 00:37 IMPRESSION: 1. No definite acute cardiopulmonary disease. 2. Cardiomegaly, unchanged. Previous median sternotomy. at 0203 Reported and signed by: Preston Mora MD Electronically Signed: Preston Mora, at 2:02 EST Tel , Service support , Hip X-Ray 10/11/19 17:30 IMPRESSION: Status post right-sided hip prosthesis with normal alignment. Electronically Signed: Fanta Miller MD at 0:51 EST , Service support , Operations: None Summary of Care Provided: The patient is a 79 year old M therefore found to have right femoral neck fracture 1. Right femoral neck fracture ?Patient underwent hemiarthroplasty on 10/11/2019. Patient postoperative period was uneventful discharged to [facility] 2. Paroxysmal atrial fibrillation ?Rate controlled patient is on systemic anticoagulation with Coumadin INR was therapeutic at the time of discharge 3. Hypertension ~ blood pressure controlled, home medications continued with dose adjustment as needed 4. Dyslipidemia ~patient is on statin therapy, continued at home dose 5. Chronic kidney disease stage III ?Kidney function at baseline 6. Coronary artery disease ?Stable 7. DVT Prophylaxis Patient is on Coumadin no need for additional measures Patient Problems: Active and Suspected Problems (Last Updated 10/11/19 @ 02:24 by Marely Pendleton MD) Hip fracture (Acute) - Physical Exam Vitals/I&O's: Vital Signs Temp Pulse Resp BP Pulse Ox 98.0 F 66 18 156/67 H 93 10/14/19 03:00 10/14/19 03:00 10/14/19 03:00 10/14/19 03:00 10/14/19 07:16 Oxygen Flow Rate (L/min) 1 Oxygen Delivery Method Nasal Cannula Weight: 53.1 kg Body Mass Index (BMI) 22.1 Intake and Output for Last 24 Hours 10/12/19 10/13/19 10/14/19 23:59 23:59 23:59 Intake Total 2206.08 / 2606.08 2350 / 3350 1400 / 1400 Output Total 635 / 960 1250 / 1650 650 / 650 Balance 1571.08 / 1646.08 1100 / 1700 750 / 750 General: Alert HEENT: Atraumatic Neck: Supple Lungs: Normal air movement Cardiovascular: Regular rate Psych/Mental Status: Normal Affect Laboratory Results 12/30/19 05:02: PT 28.3 H, INR 2.6 10/14/19 05:02: Hgb 7.9 L, Hct 25.4 L Current Medications Acetaminophen (Tylenol) 1,000 mg PO Q8 [facility] Last Admin: 10/14/19 05:34 Dose: 1,000 mg Documented by: Albuterol Sulfate (Ventolin Aerosols) 2.5 mg INHALATION Q4H PRN PRN PRN Reason: Shortness of breath, wheezing Albuterol/Ipratropium (Duoneb) 3 ml INHALATION Q6H.RT PRN PRN Reason: SOB &/OR WHEEZING Amiodarone HCl (Cordarone) 200 mg PO DAILY [facility] Last Admin: 10/14/19 08:34 Dose: 200 mg Documented by: [facility] Last Admin: 10/14/19 08:34 Dose: 25 mg Documented by: Docusate Sodium (Colace) 100 mg PO BID [facility] Last Admin: 10/14/19 08:34 Dose: Not Given Documented by: Furosemide (Lasix) 40 mg PO DAILY [facility] Last Admin: 10/14/19 08:34 Dose: 40 mg Documented by: Hydromorphone HCl (Dilaudid Inj) 1 mg IV Q4H PRN PRN PRN Reason: Pain Score 6-10/10 Last Admin: 10/11/19 04:17 Dose: 1 mg Documented by: Sodium Chloride () 500 mls @ 15 mls/hr IV PRN PRN PRN Reason: Blood Transfusion Sodium Chloride () 250 mls @ 15 mls/hr IV .[id number] PRN PRN Reason: Saline Flush Sodium Chloride () 250 mls @ 15 mls/hr IV .[id number] PRN PRN Reason: Additional IVPB Infusion Levothyroxine Sodium (Synthroid) 100 mcg PO DAILY@0600 [facility] Last Admin: 10/14/19 05:34 Dose: 100 mcg Documented by: Magnesium Hydroxide (Milk Of Magnesia) 30 ml PO DAILY PRN PRN PRN Reason: Constipation Ondansetron HCl (Zofran) 4 mg IV Q8H PRN PRN PRN Reason: NAUSEA Oxycodone HCl (Oxyir) 5 mg PO Q4H PRN PRN PRN Reason: Pain Score 4-5/10 Promethazine HCl (Phenergan) 12.5 mg IM Q6H PRN PRN; Protocol PRN Reason: NAUSEA/VOMITING Ramipril (Altace) 10 mg PO BID [facility] Last Admin: 10/14/19 08:34 Dose: 10 mg Documented by: Senna/Docusate Sodium (Senokot-S, Ayala-Colace) 2 tablet PO BID [facility] Last Admin: 10/14/19 08:35 Dose: Not Given Documented by: Sodium Chloride () 10 - 40 ml IV UD PRN PRN Reason: SALINE FLUSH Last Admin: 10/12/19 10:10 Dose: 10 ml Documented by: Tamsulosin HCl (Flomax) 0.8 mg PO DAILY@1730 [facility] Last Admin: 10/13/19 11:45 Dose: 0.8 mg Documented by: Warfarin Sodium (Coumadin (Pbkc)) 3 mg PO DAILY@1700 [facility] Last Admin: 10/13/19 17:07 Dose: 3 mg Documented by: Discharge Diet: No Restrictions Discharge Activity: No Restrictions Home Medications: Medications to take at Discharge cholecalciferol (vitamin D3) 50 mcg (2,000 unit) capsule 2,000 unit PO QDAY 04/23/18 nitroglycerin 0.4 mg sublingual tablet 0.4 mg SUBLINGUAL Q5-15M PRN 04/23/18 Ipratropium/Albuterol Sulfate [Duoneb] 3 ml INHALATION Q6H.RT PRN 02/15/19 ramipril 10 mg capsule 10 mg PO BID cap 05/02/19 levothyroxine 100 mcg tablet 100 mcg PO DAILY #30 tab 08/23/19 amiodarone 200 mg tablet 200 mg PO DAILY #30 tab 08/26/19 furosemide 40 mg tablet 40 mg PO DAILY #30 tab 08/26/19 carvedilol 25 mg tablet 25 mg PO BID #60 tab 09/19/19 Acetaminophen [Tylenol] 1,000 mg PO Q8 tab 10/14/19 Albuterol Aerosols [Ventolin Aerosols] 2.5 mg INHALATION Q4H PRN PRN vial.neb. 10/14/19 Docusate Sodium [Colace] 100 mg PO BID cap 10/14/19 Magnesium Hydroxide [Milk Of Magnesia] 30 ml PO DAILY PRN PRN udc 10/14/19 Oxycodone [Oxyir] 5 mg PO Q4H PRN PRN 3 Days #12 tab 10/14/19 Senna/Docusate Sodium [Senokot-S] 2 tab PO BID tab 10/14/19 Tamsulosin HCl [Flomax] 0.8 mg PO DAILY@1730 cap 10/14/19 Warfarin [Coumadin] 3 mg PO DAILY@1700 tab 10/14/19 Following Prescrptions Were Given to Patient: Oxycodone [Oxyir] 5 mg PO Q4H PRN PRN 3 Days #12 tab PRN Reason: Pain Score 4-5/10 Prescription Printed Primary Care Physician: Ihsan Modi MD [Primary Care Provider] - Please Follow Up With: Jeison Yan DO When: IN 1-2 WEEKS Disposition: [facility]irement facility Minutes spent on discharge:: 35 Patient Condition:: Stable Medical Necessity - Tobacco Use Smoking Status: Smoker, status unknown Tobacco Use: Cigarettes Meaningful Use Info Meaningful Use Diagnoses (Choose all that apply): None applicable Code Visit Inpatient E&M: 70535 Disch Hosp
--- NOTE | 2019-10-14 09:23 | CASEMGMT ---
Addendum entered by Siobhan Middleton 10/14/19 10:21: ELVIN spoke with Rachael in TCU who confirms TCU has a bed for pt today. Addendum entered by Siobhan Middleton 10/14/19 10:17: ELVIN has not heard back from Rachael in TCU but per RN she called report on pt and TCU staff is expecting pt today. ELVIN placed another call to Rachael in TCU and updated her that per staff assistant at TCU is ready for pt and pt is coming to TCU. Original Note: Social Work Note Pt is discharging today. ELVIN placed a call to Rachael in TCU confirming if TCU is able to accept pt today. SW waiting for call back. Plan: TCU today Siobhan Middleton MANAGER EP[employer], [employer]
--- NOTE | 2019-10-14 09:43 | NURSING ---
report called to tcu staff
--- NOTE | 2019-10-14 12:08 | PCM.PN.CARD ---
Subjectve: The patient was evaluated earlier this day. At that time he was on the medical surgical unit. He appeared to have no complaints of ongoing chest discomfort or difficulty breathing. He had been up and ambulating with OT/PT. He was pending transfer to the transitional care unit for continued postoperative physical therapy/rehabilitation. Objective: Vital Signs Temp Pulse Resp BP Pulse Ox 97.8 F 71 16 143/63 H 95 10/14/19 08:50 10/14/19 08:50 10/14/19 08:50 10/14/19 08:50 10/14/19 08:50 Oxygen Flow Rate (L/min) 1 Oxygen Delivery Method Room Air Weight: 117 lb 1.047 oz Body Mass Index (BMI) 22.1 Intake and Output for Last 24 Hours 10/12/19 10/13/19 10/14/19 23:59 23:59 23:59 Intake Total 2206.08 / 2606.08 2350 / 3350 1400 / 1400 Output Total 635 / 960 1250 / 1650 650 / 650 Balance 1571.08 / 1646.08 1100 / 1700 750 / 750 General: Awake, Alert, Oriented x 3, Cooperative, No Acute Distress HEENT: Atraumatic, Normocephalic, PERRL, EOMI, Sclera Non Icteric Oral: Moist Mucosa Neck: Supple, Good ROM, No JVD Lungs: Clear to auscultation Cardiovascular: Regular Rhythm, Normal S1, Normal S2 Murmur Murmur: Grade 3/6, Mid Systolic, LLSB, LVOT, Sternal Notch Abdomen: Bowel Sounds Present, Soft, Non Tender Psych/Mental Status: Appropriate 10/14/19 05:02: PT 28.3 H, INR 2.6 10/14/19 05:02: Hgb 7.9 L, Hct 25.4 L Rhythm: EKG: ECHO: Stress Test: Cardiac Cath: PCI: CT Surgery: Holter monitor: EPS: PPM: CXR: Chest CT Scan: Medical Necessity - Tobacco Use Smoking Status: Smoker, status unknown Tobacco Use: Cigarettes Assessment/Plan 1. CAD status post PCI The patient does not appear to have ongoing acute symptoms or adverse events. He will continue risk factor modification and medical therapy as deemed appropriate. 2. Aortic valve disorder status post aortic valve repair/replacement There has been a question in the past as to whether or not the patient, during his previous cardiovascular/CT surgery care, actually underwent aortic valve repair/replacement. Based upon previous medical records there is discrepancies with respect to any repair/replacement actually occurred to his aortic valve. 3. Ascending aortic aneurysm/dissection status post repair The patient continues at this time without any acute issues. He will be followed as deemed appropriate. 4. Paroxysmal atrial fibrillation The patient appears to be remaining in sinus rhythm at this time. He will continue medical management and follow-up. 5. Hypertension The patient will continue medical management. 6. Right hip fracture status post ORIF The patient appears to be proceeding under the care of orthopedic surgery. He is pending transfer to the transitional care unit for continued postoperative physical therapy/rehabilitation. Overall, at the present time, the patient does not appear to have any obvious postoperative acute cardiovascular issues or concerns. He will continue medical management and future outpatient cardiovascular follow-up as deemed appropriate. This note was generated using a voice recognition system and there may be incorrect words, spelling or punctuation that were not noted when reviewing the office note prior to saving.
== END 2019-10-14 10:10 | disposition skilled nursing facility (03) | DRG 470 ==
LOC: ED 10-11 00:30 → PCU 10-11 03:09 → MS3 10-11 21:45
PROVIDERS: Internal Medicine; Orthopaedic Surgery; Admitting Provider Hospitalist; Emergency Provider Emergency Medicine; Family Provider Family Medicine; PCP Family Medicine; Referring Provider Hospitalist; Visit Provider Internal Medicine
PROC: 0SRR0J9 Replacement of Right Hip Joint, Femoral Surface with Synthetic Substitute, Cemented, Open Approach (ICD-10-PCS; CPT 27125; principal; 2019-10-11 07:05)
DX: S72.011A Unspecified intracapsular fracture of right femur, initial encounter for closed fracture (principal); I50.32 Chronic diastolic (congestive) heart failure; I13.0 Hypertensive heart and chronic kidney disease with heart failure and stage 1 through stage 4 chronic kidney disease, or unspecified chronic kidney disease; E78.2 Mixed hyperlipidemia; E03.9 Hypothyroidism, unspecified; I48.0 Paroxysmal atrial fibrillation; I25.10 Atherosclerotic heart disease of native coronary artery without angina pectoris; F17.211 Nicotine dependence, cigarettes, in remission; J44.9 Chronic obstructive pulmonary disease, unspecified; W10.9XXA Fall (on) (from) unspecified stairs and steps, initial encounter; R79.1 Abnormal coagulation profile; N18.3 Chronic kidney disease, stage 3 (moderate); Z86.79 Personal history of other diseases of the circulatory system; Z95.5 Presence of coronary angioplasty implant and graft; Z79.01 Long term (current) use of anticoagulants; Z86.711 Personal history of pulmonary embolism; Y92.009 Unspecified place in unspecified non-institutional (private) residence as the place of occurrence of the external cause
CPT/HCPCS: 36415; 71045; 73502; 80048; 85014; 85018; 85025; 85027; 85610; 85730; 86900; 86901; 88305; 88311; 93005; 93017; 93350; 97110; 97162; 97165; 97530; 97535; 99251; 99284; C1776; J7030; J7040; J7050; J7120; P9017; A4216; G0463; J2405; J3490

== ENCOUNTER 2019-10-14 10:34 | Inpatient (IN) | payer MEDICARE, OTHER, SELFPAY ==
[2019-10-11 03:41] VITALS: BMI 22.1
[2019-10-14 10:40] VITALS: BP 141/58; PULSE 69; PULSE 72; RESP 16; RESP 18; TEMP 36.7; O2SAT 94; O2SAT 97; BMI 23.8
[2019-10-14] MEDS: Acetaminophen 500 MG Tablet 1000 MG PO ×2 (14:40→20:17)
[2019-10-14 16:00] VITALS: BP 123/53; PULSE 71; RESP 18; TEMP 36.7; O2SAT 92
[2019-10-14] MEDS: Carvedilol 25 MG Tablet PO (18:08)
[2019-10-14] MEDS: Tamsulosin HCl 0.4 MG Capsule 0.8 MG PO (18:10)
[2019-10-14] MEDS: Senna/Docusate Sodium 1 Tablet 2 TABLET PO (18:12)
[2019-10-14] MEDS: Ramipril 10 MG Capsule PO (18:12)
[2019-10-14] MEDS: Docusate Sodium 100 MG Capsule PO (18:12)
--- NOTE | 2019-10-14 19:08 | HP.PCM_ITS ---
Problem List (1) Debility Status: Acute (2) Closed right hip fracture Status: Acute (3) Hyperlipidemia Status: Chronic (4) Coronary artery disease Status: Chronic (5) Hypertension Status: Chronic (6) Chronic diastolic heart failure Status: Chronic (7) Thoracic aortic aneurysm, ruptured Status: Resolved (8) COPD (chronic obstructive pulmonary disease) Status: Chronic (9) Pulmonary embolism Status: Chronic (10) Hypothyroidism Status: Chronic (11) Atrial fibrillation Status: Chronic Qualifiers: History of Present Illness Date of Admission: 10/14/19 Chief Complaint: Here for rehabilitation, strengthening, prior to discharge home with . The patient is a 79 year old Male with below past medical history presented to [facility] Emergency Department 10/11/2019 with fall, right lower extremity injury. 10/11/2019 X-ray pelvis, right hip showed right hip fracture. 10/11/2019 Chest X-ray showed cardiomegaly, previous sternotomy. Right hip, right buttock pain. on coumadin for remote aortic dissection. EKG sinus bradycardia rate 55, Prolonged QT 493, K 3.2. Hemoglobin 9.9, INR > 7. 10/11/2019 Admit to Hospital. Prepare for surgery. Correct INR with vitamin D, Fresh Frozen Plasma. 10/11/2019 Dobutamine stress echo probably normal, EF 55%. 10/11/2019 Dr. Yan performed cemented hemiarthroplasty right hip. Postoperative course uneventful. 10/14/2019 Admit to TCU with debility, here for rehabilitation, strengthening, prior to discharge home with . 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) Essential hypertension (Chronic) Presence of stent in coronary artery (Chronic ~05/24/06) PCI/ILANA of the of 2nd Diagonal instent restenosis 05/24/06 Atherosclerotic heart disease of [place] coronary artery without angina pectoris (Chronic) COPD (chronic obstructive pulmonary disease) (Chronic) Tobacco abuse (Chronic) Tobacco dependence in remission (Chronic) Pulmonary embolism (Chronic) Hypothyroidism (Chronic) Atrial fibrillation (Chronic) Medical History: Medical History (Last Updated 10/11/19 @ 02:24 by Marely Pendleton MD) Chronic heart failure with preserved ejection fraction (Chronic) I50.32 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) Onset Date: ~10/28/07 I71.01 Essential hypertension (Chronic) I10 Atherosclerotic heart disease of [place] coronary artery without angina pectoris (Chronic) I25.10 Tobacco dependence in remission (Chronic) F17.201 Pulmonary embolism (Chronic) I26.99 Hypothyroidism (Chronic) E03.9 Atrial fibrillation (Chronic) 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) I71.3 Squamous cell carcinoma of skin (Inactive) C44.92 Allergies No Known Allergies Allergy (Verified 10/11/19 00:04) Home Medications: Ambulatory Orders Medication Instructions Recorded cholecalciferol (vitamin D3) 50 2,000 unit PO QDAY 04/23/18 mcg (2,000 unit) capsule nitroglycerin 0.4 mg sublingual 0.4 mg SUBLINGUAL Q5-15M PRN 04/23/18 tablet Ipratropium/Albuterol Sulfate 3 ml INHALATION Q6H.RT PRN 02/15/19 [Duoneb] ramipril 10 mg capsule 10 mg PO BID cap 05/02/19 amiodarone 200 mg tablet 200 mg PO DAILY #30 tab 08/26/19 Acetaminophen [Tylenol] 1,000 mg PO Q8 10/14/19 Albuterol Aerosols [Ventolin 2.5 mg INHALATION Q4H PRN PRN 10/14/19 Aerosols] vial.neb. Carvedilol 25 mg PO BID 10/14/19 Docusate Sodium [Colace] 100 mg PO BID 10/14/19 Furosemide 40 mg PO DAILY 10/14/19 Levothyroxine Sodium 100 mcg PO DAILY 10/14/19 Magnesium Hydroxide [Milk Of 30 ml PO DAILY PRN PRN udc 10/14/19 Magnesia] Oxycodone [Oxyir] 5 mg PO Q4H PRN PRN 3 Days #12 tab 10/14/19 Senna/Docusate Sodium [Senokot-S] 2 tab PO BID 10/14/19 Tamsulosin HCl [Flomax] 0.8 mg PO DAILY@1730 10/14/19 Warfarin [Coumadin] 3 mg PO DAILY@1700 10/14/19 Surgical History: Surgical History (Last Reviewed 10/11/19 @ 02:29 by Marely Pendleton MD) History of aortic valve repair (Chronic) Onset Date: ~10/28/07 Z98.890, Z86.79 Hx of repair of ascending aorta (Chronic) Onset Date: ~10/28/07 Z98.890 32mm Hemishield graft Presence of stent in coronary artery (Chronic) Onset Date: ~05/24/06 Z95.5 PCI/ILANA of the of 2nd Diagonal instent restenosis 05/24/06 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 Psychiatric History: No pertinent psych hx Lives: Spouse/ Significant Other Smoking Status: Former smoker Tobacco Use: Cigarettes Alcohol: None Drugs: None - *Family History Maternal Family History: Family History (Last Reviewed 09/19/19 @ 13:54 by Isabel Velazco) Grandfather Diabetes Brother Heart disease History Items: No pertinent history Paternal Family History: Family History (Last Reviewed 09/19/19 @ 13:54 by Isabel Velazco) Grandfather Diabetes Brother Heart disease History Items: No pertinent history Review of Systems Constitutional: Denies: Chills, Fever, Weight Change HEENT: Denies: Head Aches, Sinus Congestion, Sinus Drainage Cardiovascular: Denies: Chest Pain, Palpitations Respiratory: Denies: Cough, Shortness of breath at rest, Sputum production Gastrointestinal: Denies: Abdominal Pain, Nausea, Vomiting Genitourinary: Denies: Dysuria Musculoskeletal: Denies: Joint Pain, Joint Tenderness Skin: Denies: Rash, Wounds Neurological: Denies: Numbness, Tingling, Focal weakness Psychiatric: Denies: Anxiety, Depression, Homicidal Ideations, Suicidal Ideations Hematologic/ Lymphatic: Denies: Easy Bruising, Easy Bleeding VTE Information - Inpt Only VTE Present on Admission: No VTE Mechan Device Prophylaxis: Knee High MARIUM Hose VTE Pharm Prophylaxis ordered?: No Reason prophylaxis not ordered:: Treatment Not Indicated Patient Problems: Active and Suspected Problems (Last Updated 10/11/19 @ 02:24 by Marely Pendleton MD) Debility (Acute) Closed right hip fracture (Acute) - Physical Exam Vitals/I&O's: Vital Signs Temp Pulse Resp BP Pulse Ox 98.1 F 71 18 123/53 H 92 10/14/19 16:00 10/14/19 16:00 10/14/19 16:00 10/14/19 16:00 10/14/19 16:00 Oxygen Delivery Method Room Air Weight: 57.153 kg Body Mass Index (BMI) 23.8 Intake and Output for Last 24 Hours 10/12/19 10/13/19 10/14/19 23:59 23:59 23:59 Intake Total 240 / 240 Balance 240 / 240 General: Alert, Oriented x3, Cooperative HEENT: Atraumatic, PERRLA, EOMI, Normocephalic Neck: Supple, No JVD, Negative Carotid Bruits Lungs: Clear to auscultation, Normal air movement Cardiovascular: Regular rate, No murmurs Abdomen: Bowel Sounds Present, Soft, Non Tender Extremities: No edema, Capillary Refill Less than 3 Seconds Skin: No rashes, No breakdown Musculoskeletal: No Tenderness to Palpation of Joints or Extremities Neurological: Cranial nerves II-XII grossly intact Psych/Mental Status: Normal Affect, Appropriate Current Medications Acetaminophen (Tylenol) 1,000 mg PO Q8 [facility] Last Admin: 10/14/19 14:40 Dose: 1,000 mg Documented by: Albuterol Sulfate (Ventolin Aerosols) 2.5 mg INHALATION Q4H PRN PRN PRN Reason: Shortness of breath, wheezing Albuterol/Ipratropium (Duoneb) 3 ml INHALATION Q6H.RT PRN PRN Reason: SOB &/OR WHEEZING Amiodarone HCl (Cordarone) 200 mg PO DAILY [facility] Carvedilol (Coreg) 25 mg PO 0800,1700 [facility] Last Admin: 10/14/19 18:08 Dose: 25 mg Documented by: Cholecalciferol (Vitamin D) 2,000 unit PO DAILY [facility] Docusate Sodium (Colace) 100 mg PO BID [facility] Last Admin: 10/14/19 18:12 Dose: 100 mg Documented by: Furosemide (Lasix) 40 mg PO DAILY [facility] Levothyroxine Sodium (Synthroid) 100 mcg PO DAILY [facility] Nitroglycerin (Nitrostat) 0.4 mg SUBLINGUAL Q5M PRN PRN Reason: Pain Score 1-10/10 Oxycodone HCl (Oxyir) 5 mg PO Q4H PRN PRN PRN Reason: Pain Score 4-5/10 Ramipril (Altace) 10 mg PO BID [facility] Last Admin: 10/14/19 18:12 Dose: 10 mg Documented by: Senna/Docusate Sodium (Senokot-S, Ayala-Colace) 2 tablet PO BID [facility] Last Admin: 10/14/19 18:12 Dose: 2 tablet Documented by: Tamsulosin HCl (Flomax) 0.8 mg PO DAILY@1730 [facility] Last Admin: 10/14/19 18:10 Dose: 0.8 mg Documented by: Tuberculin PPD (Tubersol, Aplisol, Ppd) 5 tu ID X1 ONE Stop: 10/15/19 10:01 Tuberculin PPD (Tubersol, Aplisol, Ppd) 5 tu ID X1 ONE Stop: 10/22/19 10:01 Warfarin Sodium (Coumadin (Pbkc)) 3 mg PO DAILY@1700 [facility] Last Admin: 10/14/19 18:08 Dose: 3 mg Documented by: Assessment/Plan All Active Problems (Last Updated 10/11/19 @ 02:24 by Marely Pendleton MD) Hip fracture (Acute) Debility (Acute) Closed right hip fracture (Acute) Thoracic aortic aneurysm, ruptured (Resolved) 79 year old male with below past medical history hospitalized for right hip fracture, underwent right hip cemented arthroplasty 10/11/[address] Yan, admitted to TCU with debility, here for rehabilitation, strengthening, prior to discharge home with . * Debility - PT/OT. * Pain - Tylenol 1000MG Q8H, Oxycodone 5MG Q4H PRN pain (4-5). * Bowel - Miralax 17GM daily, Senna/colace 2 tablets BID, Dulcolax 10MG daily PRN. * Adult immunization - Administer Prevnar 13, Pneumovax 23, Fluzone as appropriate. * DVT prophylaxis - Not necessary, already on warfarin. * COPD - Duoneb 3ML Q6H PRN, Albuterol 2.5MG Q4H PRN. * Atrial Fibrillation - Coreg 25MG BID, Amiodarone 200MG daily, warfarin 3MG da james, follow INR. * Coronary Artery Disease - Coreg 25MG BID, Ramipril 10MG BID, warfarin 3MG daily, NTG 0.4MG Q5M PRN chest pain. * Vitamin D deficiency - D3 2000IU daily. * Chronic diastolic congestive heart failure - Coreg 25MG BID, Ramipril 10MG BID, Lasix 40MG daily. * Hypothyroidism - Levothyroxine 100MCG daily. * BPH - Tamsulosin 0.8MG daily.
[2019-10-15] MEDS: Furosemide 40 MG Tablet PO (05:32)
[2019-10-15] MEDS: Polyethylene Glycol 3350 17 GM PACKET PO (05:32)
[2019-10-15] MEDS: Levothyroxine 100 MCG Tablet PO (05:32)
[2019-10-15] MEDS: Senna/Docusate Sodium 1 Tablet 2 TABLET PO ×2 (05:32→16:49)
[2019-10-15] MEDS: Amiodarone 200 MG Tablet PO (05:32)
[2019-10-15] MEDS: Acetaminophen 500 MG Tablet 1000 MG PO ×3 (05:32→20:17)
[2019-10-15] MEDS: Ramipril 10 MG Capsule PO ×2 (05:32→16:48)
[2019-10-15 05:55] LABS: Absolute Lymphocyte Count 1.38 X10^3/uL (0.83-4.51); Absolute Neutrophil Count 4.6 X10^3/uL (2.0-7.7); Basophil# 0.01 X10^3/uL; Basophil% 0.2 % (0-1); Eosinophil# 0.14 X10^3/uL; Eosinophils% 2.1 % (0-5); Hematocrit 28.8 % (40-54); Hemoglobin 8.9 g/dL (13.0-16.5); Lymphocyte # 1.38 X10^3/ul (4.0); Mean Corp Hgb Conc 30.9 g/dL (32-36); Mean Corpuscular Hgb 26.9 pg (27.0-32.0); Mean Platelet Vol. 10.6 fl (6.2-12.0); Monocyte# 0.46 X10^3/uL; NRBC Flagged by Analyzer 0 % (0-5); Neutrophil # 4.55 X10^3/uL (2.7-7.7); Neutrophil % 69.1 % (47-70); Platelet Count 167 K/mm3 (150-450); RBC Distribution Width CV 14.4 % (11.6-14.6); RBC Distribution Width SD 45.6 fl (35.1-43.9); Red Blood Count 3.31 M/mm3 (4.6-6.2); White Blood Count 6.6 K/mm3 (4.4-11.0)
[2019-10-15 06:30] LABS: Anion Gap 4 (5-15); BUN 30 mg/dL (7-18); BUN/Creat Ratio 23.1 RATIO (10-20); Calcium,Total 7.7 mg/dL (8.5-10.1); Chloride 105 mmol/L (98-107); EST Glomerular Filtration Rate 57 mL/min (>60); Est Glom Filt Rate - Afr Amer 69 mL/min (>60); Estimated Creatinine Clearance 34.64 ml/min; Glucose 86 mg/dL (74-106); Sodium Level 140 mmol/L (136-145)
[2019-10-15] MEDS: Carvedilol 25 MG Tablet PO ×2 (08:25→16:48)
--- NOTE | 2019-10-15 09:12 | PHA.CONS_ITS ---
<Josiane Mtz - Last Filed: 10/15/19 09:12> Progress Note - Pharmacy Subjective: TCU Admission Objective: Allergies No Known Allergies Allergy (Verified 10/11/19 00:04) Current Medications Generic Name Dose Route Start Last Admin Trade Name Freq PRN Reason Stop Dose Admin Acetaminophen 1,000 mg 10/14/19 14:00 10/15/19 05:32 Tylenol PO 1,000 mg Q8 [facility] Administration Albuterol Sulfate 2.5 mg 10/14/19 10:50 Ventolin Aerosols INHALATION Q4H PRN PRN Shortness of breath, wheezing Albuterol/Ipratropium 3 ml 10/14/19 10:50 Duoneb INHALATION Q6H.RT PRN SOB &/OR WHEEZING Amiodarone HCl 200 mg 10/15/19 06:00 10/15/19 05:32 Cordarone PO 200 mg DAILY [facility] Administration Bisacodyl 10 mg 10/14/19 19:23 Dulcolax PO DAILY PRN Constipation Carvedilol 25 mg 10/14/19 17:00 10/15/19 08:25 Coreg PO 25 mg 0800,1700 [facility] Administration Cholecalciferol 2,000 unit 10/15/19 06:00 10/15/19 05:32 Vitamin D PO 2,000 unit DAILY [facility] Administration Emollient Ointment 1 applic 10/15/19 22:00 Eucerin Intensive Repair TOPICAL QHS [facility] Protocol Furosemide 40 mg 10/15/19 06:00 10/15/19 05:32 Lasix PO 40 mg DAILY [facility] Administration Levothyroxine Sodium 100 mcg 10/15/19 06:00 10/15/19 05:32 Synthroid PO 100 mcg DAILY [facility] Administration Nitroglycerin 0.4 mg 10/14/19 11:05 Nitrostat SUBLINGUAL Q5M PRN Pain Score 1-10/10 Oxycodone HCl 5 mg 10/14/19 10:50 Oxyir PO Q4H PRN PRN Pain Score 4-5/10 Polyethylene Glycol 17 gm 10/15/19 06:00 10/15/19 05:32 Miralax PO 17 gm DAILY [facility] Administration Ramipril 10 mg 10/14/19 18:00 10/15/19 05:32 Altace PO 10 mg BID [facility] Administration Senna/Docusate Sodium 2 tablet 10/14/19 18:00 10/15/19 05:32 Senokot-S, Ayala-Colace PO 2 tablet BID [facility] Administration Tamsulosin HCl 0.8 mg 10/14/19 17:30 10/14/19 18:10 Flomax PO 0.8 mg DAILY@1730 [facility] Administration Tuberculin PPD 5 tu 10/15/19 10:00 Tubersol, Aplisol, Ppd ID 10/15/19 10:01 X1 ONE Tuberculin PPD 5 tu 10/22/19 10:00 Tubersol, Aplisol, Ppd ID 10/22/19 10:01 X1 ONE Warfarin Sodium 3 mg 10/14/19 17:00 10/14/19 18:08 Coumadin (Pbkc) PO 3 mg DAILY@1700 [facility] Administration Problem List (Last Updated 10/11/19 @ 02:24 by Marely Pendleton MD) Debility (Acute) Closed right hip fracture (Acute) Hyperlipidemia (Chronic) Coronary artery disease (Chronic) Hypertension (Chronic) Chronic diastolic heart failure (Chronic) Vital Signs Temp Pulse Resp BP Pulse Ox 98.1 F 71 18 123/53 H 92 10/14/19 16:00 10/14/19 16:00 10/14/19 16:00 10/14/19 16:00 10/14/19 16:00 Oxygen Delivery Method Room Air Weight: 57.153 kg Body Mass Index (BMI) 23.8 Sodium 140 mmol/L (136-145) 10/15/19 05:05 Potassium 4.0 mmol/L (3.5-5.1) 10/15/19 05:05 Chloride 105 mmol/L (98-107) 10/15/19 05:05 Carbon Dioxide 31.0 mmol/L (21.0-32.0) 10/15/19 05:05 Anion Gap 4 (5-15) L 10/15/19 05:05 BUN 30 mg/dL (7-18) H 10/15/19 05:05 Creatinine 1.30 mg/dL (0.70-1.30) 10/15/19 05:05 Est GFR (MDRD) Af Amer 69 mL/min (>60) 10/15/19 05:05 Est GFR (MDRD) Non-Af 57 mL/min (>60) L 10/15/19 05:05 BUN/Creatinine Ratio 23.1 RATIO (10-20) H 10/15/19 05:05 Glucose 86 mg/dL (74-106) 10/15/19 05:05 Assessment/Plan: 1. Pain: acetaminophen 1000mg Q8H, oxycodone 5mg PO Q4H PRN pain (4-10/10). Please continue to monitor for pain and PRN usage. *2. COPD: ipratropium/albuterol 3mL inhalation Q6H.RT PRN SOB &/OR WHEEZING and albuterol 2.5mg inhalation PO Q4H PRN shortness of breath, wheezing. Please add directions as to which solution should be given 1st line and which should be second line. Thanks. 3. Atrial fibrillation/CAD/CHF: carvedilol 25mg PO BID, amiodarone 200mg PO daily, warfarin 3mg PO daily, ramipril 10mg PO daily, nitroglycerin 0.4mg SL Q5M PRN chest pain, and furosemide 40mg PO daily. Please continue to monitor BP, HR, S/S of bleeding, INR, electrolytes and renal function. 4. Hypothyroidism: levothyroxine 100mcg PO daily. Please continue to monitor TSH and for S/S of hypo/hyperthyroidism. 5. BPH: tamsulosin 0.8mg PO daily. Please continue to monitor for hypotension and urine flow. *6. Vitamin D deficiency: cholecalciferol 2000units PO daily. Please consider ordering a vitamin D level now and then annually as clinically appropriate. Thanks. Psychotropic Medications: None Unnecessary Medications: None Bowel Regimen: Miralax 17gm PO daily, senna/docusate 2T PO BID, bisacodyl 10mg PO daily PRN constipation. Please continue to monitor for constipation and PRN usage. Date of Note:: 10/15/19 - Provider Comments Provider responsibility: Provider responsible to enter orders to implement recommendations <Aidan Santos Chi - Last Filed: 10/15/19 21:56> Progress Note - Pharmacy Subjective: [] Objective: Allergies No Known Allergies Allergy (Verified 10/11/19 00:04) Current Medications Generic Name Dose Route Start Last Admin Trade Name Freq PRN Reason Stop Dose Admin Acetaminophen 1,000 mg 10/14/19 14:00 10/15/19 20:17 Tylenol PO 1,000 mg Q8 [facility] Administration Albuterol Sulfate 2.5 mg 10/14/19 10:50 Ventolin Aerosols INHALATION Q4H PRN PRN Shortness of breath, wheezing Albuterol/Ipratropium 3 ml 10/14/19 10:50 Duoneb INHALATION Q6H.RT PRN SOB &/OR WHEEZING Amiodarone HCl 200 mg 10/15/19 06:00 10/15/19 05:32 Cordarone PO 200 mg DAILY [facility] Administration Bisacodyl 10 mg 10/14/19 19:23 Dulcolax PO DAILY PRN Constipation Carvedilol 25 mg 10/14/19 17:00 10/15/19 16:48 Coreg PO 25 mg 0800,1700 [facility] Administration Cholecalciferol 2,000 unit 10/15/19 06:00 10/15/19 05:32 Vitamin D PO 2,000 unit DAILY [facility] Administration Emollient Ointment 1 applic 10/15/19 22:00 10/15/19 20:17 Eucerin Intensive Repair TOPICAL 1 applicatio QHS [facility] Administration Protocol Furosemide 40 mg 10/15/19 06:00 10/15/19 05:32 Lasix PO 40 mg DAILY [facility] Administration Guaifenesin 10 ml 10/15/19 18:17 10/15/19 18:25 Robitussin Dm PO 10 ml Q6H PRN PRN Administration COUGH Levothyroxine Sodium 100 mcg 10/15/19 06:00 10/15/19 05:32 Synthroid PO 100 mcg DAILY [facility] Administration Nitroglycerin 0.4 mg 10/14/19 11:05 Nitrostat SUBLINGUAL Q5M PRN Pain Score 1-10/10 Oxycodone HCl 5 mg 10/14/19 10:50 Oxyir PO Q4H PRN PRN Pain Score 4-10/10 Polyethylene Glycol 17 gm 10/15/19 06:00 10/15/19 05:32 Miralax PO 17 gm DAILY [facility] Administration Ramipril 10 mg 10/14/19 18:00 10/15/19 16:48 Altace PO 10 mg BID [facility] Administration Senna/Docusate Sodium 2 tablet 10/14/19 18:00 10/15/19 16:49 Senokot-S, Ayala-Colace PO 2 tablet BID [facility] Administration Tamsulosin HCl 0.8 mg 10/14/19 17:30 10/15/19 16:48 Flomax PO 0.8 mg DAILY@1730 [facility] Administration Tuberculin PPD 5 tu 10/22/19 10:00 Tubersol, Aplisol, Ppd ID 10/22/19 10:01 X1 ONE Warfarin Sodium 3 mg 10/14/19 17:00 10/15/19 16:48 Coumadin (Pbkc) PO 3 mg DAILY@1700 [facility] Administration Problem List (Last Updated 10/11/19 @ 02:24 by Marely Pendleton MD) Debility (Acute) Closed right hip fracture (Acute) Hyperlipidemia (Chronic) Coronary artery disease (Chronic) Hypertension (Chronic) Chronic diastolic heart failure (Chronic) Vital Signs Temp Pulse Resp BP Pulse Ox 97.8 F 66 17 168/53 H 97 10/15/19 15:52 10/15/19 15:52 10/15/19 15:52 10/15/19 15:52 10/15/19 15:52 Oxygen Delivery Method Room Air Weight: 57.153 kg Body Mass Index (BMI) 23.8 Sodium 140 mmol/L (136-145) 10/15/19 05:05 Potassium 4.0 mmol/L (3.5-5.1) 10/15/19 05:05 Chloride 105 mmol/L (98-107) 10/15/19 05:05 Carbon Dioxide 31.0 mmol/L (21.0-32.0) 10/15/19 05:05 Anion Gap 4 (5-15) L 10/15/19 05:05 BUN 30 mg/dL (7-18) H 10/15/19 05:05 Creatinine 1.30 mg/dL (0.70-1.30) 10/15/19 05:05 Est GFR (MDRD) Af Amer 69 mL/min (>60) 10/15/19 05:05 Est GFR (MDRD) Non-Af 57 mL/min (>60) L 10/15/19 05:05 BUN/Creatinine Ratio 23.1 RATIO (10-20) H 10/15/19 05:05 Glucose 86 mg/dL (74-106) 10/15/19 05:05 Assessment/Plan: Psychotropic Medications: Unnecessary Medications: Bowel Regimen: - Provider Comments Provider responsibility: Provider responsible to enter orders to implement recommendations Provider Comments to Recommendations by Pharmacy: Agree
[2019-10-15] MEDS: Tuberculin,Purif.prot.deriv. 50 TU/ML Vial 5 ML ID (11:20)
[2019-10-15 15:52] VITALS: BP 168/53; PULSE 66; RESP 17; TEMP 36.6; O2SAT 97
[2019-10-15] MEDS: Tamsulosin HCl 0.4 MG Capsule 0.8 MG PO (16:48)
--- NOTE | 2019-10-15 18:18 | NURSING ---
R' C/O COUGH. REQUESTING ROBITUSSIN. NOTIFIED DR. FOX. N.O. FOR ROBITUSSIN.
[2019-10-15] MEDS: guaiFENesin Dm 10 ML UDC PO (18:25)
[2019-10-16] MEDS: Polyethylene Glycol 3350 17 GM PACKET PO (05:01)
[2019-10-16] MEDS: Acetaminophen 500 MG Tablet 1000 MG PO ×3 (05:04→20:31)
[2019-10-16] MEDS: Senna/Docusate Sodium 1 Tablet 2 TABLET PO ×2 (05:04→16:58)
[2019-10-16] MEDS: Furosemide 40 MG Tablet PO (05:04)
[2019-10-16] MEDS: Amiodarone 200 MG Tablet PO (05:04)
[2019-10-16] MEDS: Levothyroxine 100 MCG Tablet PO (05:04)
[2019-10-16] MEDS: Ramipril 10 MG Capsule PO ×2 (05:04→16:58)
[2019-10-16] MEDS: guaiFENesin Dm 10 ML UDC PO ×2 (05:09→20:37)
[2019-10-16] MEDS: Carvedilol 25 MG Tablet PO ×2 (10:05→16:59)
[2019-10-16 16:00] VITALS: BP 151/62; PULSE 68; RESP 17; TEMP 36.4; O2SAT 97
[2019-10-16] MEDS: Tamsulosin HCl 0.4 MG Capsule 0.8 MG PO (16:57)
[2019-10-17] MEDS: Ramipril 10 MG Capsule PO ×2 (05:37→17:21)
[2019-10-17] MEDS: Acetaminophen 500 MG Tablet 1000 MG PO ×3 (05:37→20:31)
[2019-10-17] MEDS: Amiodarone 200 MG Tablet PO (05:37)
[2019-10-17] MEDS: Levothyroxine 100 MCG Tablet PO (05:37)
[2019-10-17] MEDS: Furosemide 40 MG Tablet PO (05:37)
[2019-10-17] MEDS: Senna/Docusate Sodium 1 Tablet 2 TABLET PO (05:38)
[2019-10-17] MEDS: guaiFENesin Dm 10 ML UDC PO (05:41)
[2019-10-17 06:06] LABS: Prothrombin Time (Protime)PT. 43.1 SECONDS (11.7-14.9)
[2019-10-17 06:11] LABS: International Normalized Ratio 4.5
[2019-10-17] MEDS: Carvedilol 25 MG Tablet PO ×2 (08:18→17:20)
[2019-10-17 08:19] VITALS: BP 150/67; PULSE 65
--- NOTE | 2019-10-17 08:19 | RAD_ITS ---
STUDY: X-RAY CHEST REASON FOR EXAM: Male, 79 years old. cough TECHNIQUE: PA and lateral views of the chest. COMPARISON: February 23, 2019. FINDINGS: There is vague alveolar opacification within the mid region and periphery of the inferior right upper lobe as well as within the lingula and the left lower lobe. There is blunting of the left lateral and left posterior costophrenic angle. There is no pneumothorax. Again seen is moderate enlargement of the size of the cardiomediastinal silhouette with a large air-fluid containing retrocardiac hiatal hernia. There is no demonstrated mediastinal lymphadenopathy or mediastinal mass lesion. No evidence of vascular congestion or congestive heart failure. There is atherosclerotic calcification of the aortic arch with tortuosity. There are diffuse spinal changes. There is angulation and exaggeration of the thoracic kyphosis beginning at inferior thoracic vertebral level. Contiguous inferior thoracic vertebral bodies demonstrate moderate spondylosis and an age indeterminate compression deformity of T11 which results in the exaggerated kyphosis. The patient is status post median sternotomy and right axillary nimo dissection. There is no demonstrated abnormality of the visualized soft tissue structures of the upper abdomen. RAD/Chest PA and Lateral IMPRESSION: Right upper lobe, lingula and left lower lobe consolidations potentially representing pneumonia. Recommend correlation for clinical signs and symptoms referable to these regions. Additionally, recommend radiographic follow-up until complete clearing to exclude underlying pathology. Small left parapneumonic effusion. Persistent cardiomegaly. Status post median sternotomy. Atherosclerotic peripheral vascular disease and senescent changes of the descending thoracic aorta. Age-indeterminate compression deformity of an inferior thoracic vertebral body resulting in angulation and mild exaggeration of the thoracic kyphosis. Electronically Signed: Shakeel Hager MD at 9:25 EST , Service support ,
--- NOTE | 2019-10-17 09:57 | NURSING ---
dr pascal notified of cxr results new orders for cefdinir x7d, zpak and medrol cesar rajan scheduled. pt updated on all.
[2019-10-17] MEDS: Cefdinir 300 MG Capsule PO ×2 (10:36→17:20)
[2019-10-17] MEDS: Azithromycin 250 MG Tablet 500 MG PO (10:36)
[2019-10-17] MEDS: MethylPREDNISolone DosePak 4 MG BOX PO ×3 (10:48→20:30)
[2019-10-17] MEDS: Ipratropium/Albuterol Sulfate 3 ML AMPUL.NEB INHALATION (13:14)
[2019-10-17 13:16] VITALS: PULSE 72; RESP 18; O2SAT 97
[2019-10-17 15:35] VITALS: BP 168/65; PULSE 69; RESP 16; TEMP 36.8; O2SAT 96
--- NOTE | 2019-10-17 16:55 | CHAPLAIN ---
Type of Pastoral Visit _x__ Initial Visit ___ Follow-up Visit ___ On-call Visit ___ General Patient Visit ___ Spiritual Assessment ___ Family Conference ___ Bereavement ___ Rapid Response ___ Code Blue ___ Other (describe below) Pastoral Care Referral From _x__ Patient ___ Family ___ Nurse ___ Physician ___ Hydroblaster ___ Machine Heddle Cleaner ___ Other (describe below) Sacrament/Intervention _x__ Active listening ___ Anointing ___ Islam ___ Bereavement ___ Communion ___ Trupti exploration ___ _x__ Life review _x__ Prayer ___ Reconciliation ___ Sacrament of Sick _x__ Supportive presence ___ Wedding ___ Other (describe below) Pastoral Comments
[2019-10-17] MEDS: Tamsulosin HCl 0.4 MG Capsule 0.8 MG PO (17:20)
[2019-10-18] MEDS: Amiodarone 200 MG Tablet PO (04:58)
[2019-10-18] MEDS: Cefdinir 300 MG Capsule PO ×2 (04:58→16:41)
[2019-10-18] MEDS: Ramipril 10 MG Capsule PO ×2 (04:58→16:43)
[2019-10-18] MEDS: Levothyroxine 100 MCG Tablet PO (04:58)
[2019-10-18] MEDS: Furosemide 40 MG Tablet PO (04:58)
[2019-10-18] MEDS: Senna/Docusate Sodium 1 Tablet 2 TABLET PO ×2 (04:58→16:42)
[2019-10-18] MEDS: Acetaminophen 500 MG Tablet 1000 MG PO ×3 (04:59→21:46)
[2019-10-18] MEDS: MethylPREDNISolone DosePak 4 MG BOX PO ×4 (08:09→21:46)
[2019-10-18] MEDS: Carvedilol 25 MG Tablet PO ×2 (08:10→16:42)
[2019-10-18] MEDS: Azithromycin 250 MG Tablet PO (08:10)
[2019-10-18 08:11] VITALS: BP 144/66; PULSE 71
[2019-10-18] MEDS: Calcium Carbonate 500 MG Tablet PO (15:00)
[2019-10-18 16:00] VITALS: BP 161/60; PULSE 72; RESP 17; TEMP 36.7; O2SAT 98
[2019-10-18] MEDS: Tamsulosin HCl 0.4 MG Capsule 0.8 MG PO (16:41)
[2019-10-18 18:35] VITALS: PULSE 68; RESP 16
[2019-10-18] MEDS: Ipratropium/Albuterol Sulfate 3 ML AMPUL.NEB INHALATION (18:35)
[2019-10-18] MEDS: MELATONIN 10 MG TABLET PO (21:48)
[2019-10-19] MEDS: Furosemide 40 MG Tablet PO (05:14)
[2019-10-19] MEDS: Acetaminophen 500 MG Tablet 1000 MG PO ×3 (05:14→21:14)
[2019-10-19] MEDS: Levothyroxine 100 MCG Tablet PO (05:14)
[2019-10-19] MEDS: Senna/Docusate Sodium 1 Tablet 2 TABLET PO (05:15)
[2019-10-19] MEDS: Amiodarone 200 MG Tablet PO (05:15)
[2019-10-19] MEDS: Ramipril 10 MG Capsule PO ×2 (05:15→17:44)
[2019-10-19] MEDS: Cefdinir 300 MG Capsule PO ×2 (05:15→17:43)
[2019-10-19 07:06] VITALS: PULSE 65; RESP 16; O2SAT 92
[2019-10-19] MEDS: Ipratropium/Albuterol Sulfate 3 ML AMPUL.NEB INHALATION ×2 (07:06→13:21)
[2019-10-19 07:54] LABS: Prothrombin Time (Protime)PT. 46.9 SECONDS (11.7-14.9)
--- NOTE | 2019-10-19 08:21 | NURSING ---
Notified Dr. Santos of patient's INR of 5.0. No new orders at this time. This information repeated back.
[2019-10-19] MEDS: MethylPREDNISolone DosePak 4 MG BOX PO ×4 (08:28→21:10)
[2019-10-19] MEDS: Carvedilol 25 MG Tablet PO ×2 (08:28→17:43)
[2019-10-19] MEDS: Azithromycin 250 MG Tablet PO (08:28)
[2019-10-19] MEDS: Phytonadione (Vit K) 10 MG/ML Ampul IM (12:53)
[2019-10-19 13:21] VITALS: PULSE 66; RESP 18
[2019-10-19 16:00] VITALS: BP 126/57; PULSE 68; RESP 18; TEMP 36.7; O2SAT 97
[2019-10-19] MEDS: Tamsulosin HCl 0.4 MG Capsule 0.8 MG PO (17:44)
[2019-10-19] MEDS: MELATONIN 10 MG TABLET PO (21:16)
[2019-10-20] MEDS: Cefdinir 300 MG Capsule PO ×2 (05:48→17:56)
[2019-10-20] MEDS: Amiodarone 200 MG Tablet PO (05:49)
[2019-10-20] MEDS: Acetaminophen 500 MG Tablet 1000 MG PO ×3 (05:49→20:29)
[2019-10-20] MEDS: Ramipril 10 MG Capsule PO ×2 (05:49→17:56)
[2019-10-20] MEDS: Furosemide 40 MG Tablet PO (05:50)
[2019-10-20] MEDS: Levothyroxine 100 MCG Tablet PO (05:50)
[2019-10-20 06:13] LABS: International Normalized Ratio 2.6; Prothrombin Time (Protime)PT. 27.8 SECONDS (11.7-14.9)
[2019-10-20] MEDS: Ipratropium/Albuterol Sulfate 3 ML AMPUL.NEB INHALATION (07:02)
[2019-10-20 07:07] VITALS: PULSE 65; RESP 18; O2SAT 97
[2019-10-20] MEDS: MethylPREDNISolone DosePak 4 MG BOX PO ×3 (08:19→20:23)
[2019-10-20] MEDS: Carvedilol 25 MG Tablet PO ×2 (08:19→17:56)
[2019-10-20] MEDS: Azithromycin 250 MG Tablet PO (09:40)
[2019-10-20 16:00] VITALS: BP 141/50; PULSE 70; RESP 18; TEMP 36.4; O2SAT 95
[2019-10-20] MEDS: Tamsulosin HCl 0.4 MG Capsule 0.8 MG PO (17:55)
[2019-10-20] MEDS: MELATONIN 10 MG TABLET PO (20:29)
[2019-10-21 05:25] VITALS: BP 167/68; PULSE 66
[2019-10-21] MEDS: Acetaminophen 500 MG Tablet 1000 MG PO ×3 (05:26→20:30)
[2019-10-21] MEDS: Ramipril 10 MG Capsule PO ×2 (05:27→16:56)
[2019-10-21] MEDS: Furosemide 40 MG Tablet PO (05:27)
[2019-10-21] MEDS: Amiodarone 200 MG Tablet PO (05:27)
[2019-10-21] MEDS: Cefdinir 300 MG Capsule PO ×2 (05:27→16:56)
[2019-10-21] MEDS: Levothyroxine 100 MCG Tablet PO (05:28)
[2019-10-21 05:51] LABS: International Normalized Ratio 1.5; Prothrombin Time (Protime)PT. 17.5 SECONDS (11.7-14.9)
[2019-10-21 07:47] VITALS: PULSE 79; RESP 20; O2SAT 93
[2019-10-21] MEDS: MethylPREDNISolone DosePak 4 MG BOX PO ×2 (08:07→19:58)
[2019-10-21] MEDS: Carvedilol 25 MG Tablet PO ×2 (08:07→16:56)
[2019-10-21] MEDS: Azithromycin 250 MG Tablet PO (08:07)
[2019-10-21 08:09] VITALS: BP 160/70; PULSE 75
[2019-10-21 12:04] LABS: Bacteria 0 SEEN /hpf (None Seen); Mucous, Urine 0 SEEN /hpf (<or=2+); Red Blood Cells-Urine 0 SEEN /hpf (0-5); White Blood Cells 0 SEEN /hpf (0-5)
[2019-10-21 12:06] LABS: Color, Urine Yellow (Yellow); Glucose, Dipstick Normal (Normal); Ketone-Dipstick Negative (Negative); Leukocyte Esterase-Dipstick Negative /ul (Negative); Nitrite-Dipstick Negative (Negative); Occult Blood-Urine Negative /ul (Negative); Protein-Dipstick Negative (Negative); Specific Gravity, Urine 1.005 (1.002-1.030); Urine Bilirubin Dipstick Negative (Negative); Urine Clarity Sl. Cloudy (Clear); Urine Urobilinogen Normal (Normal)
[2019-10-21 12:12] LABS: Squamous Epithelial Cells - UA 0-5 SEEN /hpf (0-5)
[2019-10-21 13:09] VITALS: PULSE 82; RESP 20
[2019-10-21] MEDS: Ipratropium/Albuterol Sulfate 3 ML AMPUL.NEB INHALATION (13:09)
[2019-10-21 16:00] VITALS: BP 158/62; PULSE 69; RESP 16; TEMP 36.6; O2SAT 96
[2019-10-21] MEDS: Tamsulosin HCl 0.4 MG Capsule 0.8 MG PO (16:56)
[2019-10-21] MEDS: MELATONIN 10 MG TABLET PO (20:30)
[2019-10-22] MEDS: guaiFENesin Dm 10 ML UDC PO ×2 (04:49→20:29)
[2019-10-22] MEDS: Senna/Docusate Sodium 1 Tablet 2 TABLET PO (04:50)
[2019-10-22] MEDS: Amiodarone 200 MG Tablet PO (04:50)
[2019-10-22] MEDS: Furosemide 40 MG Tablet PO (04:50)
[2019-10-22] MEDS: Acetaminophen 500 MG Tablet 1000 MG PO ×3 (04:50→20:31)
[2019-10-22] MEDS: Levothyroxine 100 MCG Tablet PO (04:50)
[2019-10-22] MEDS: Cefdinir 300 MG Capsule PO ×2 (04:50→16:21)
[2019-10-22] MEDS: Ramipril 10 MG Capsule PO ×2 (04:50→16:21)
[2019-10-22 05:30] LABS: Absolute Lymphocyte Count 1.11 X10^3/uL (0.83-4.51); Absolute Neutrophil Count 6.6 X10^3/uL (2.0-7.7); Basophil# 0.01 X10^3/uL; Basophil% 0.1 % (0-1); Eosinophil# 0.01 X10^3/uL; Eosinophils% 0.1 % (0-5); Hematocrit 28.1 % (40-54); Hemoglobin 8.6 g/dL (13.0-16.5); Lymphocyte # 1.11 X10^3/ul (4.0); Lymphocyte % 13.1 % (19-41); Mean Corp Hgb Conc 30.6 g/dL (32-36); Mean Corpuscular Volume 88.1 fL (80-94); Mean Platelet Vol. 9.4 fl (6.2-12.0); Monocyte# 0.58 X10^3/uL; Monocyte% 6.9 % (0-10); NRBC Flagged by Analyzer 0 % (0-5); Neutrophil # 6.63 X10^3/uL (2.7-7.7); Neutrophil % 78.5 % (47-70); Platelet Count 192 K/mm3 (150-450); RBC Distribution Width CV 16.1 % (11.6-14.6); RBC Distribution Width SD 50.5 fl (35.1-43.9); Red Blood Count 3.19 M/mm3 (4.6-6.2); White Blood Count 8.5 K/mm3 (4.4-11.0)
[2019-10-22 05:48] LABS: Anion Gap 4 (5-15); BUN 35 mg/dL (7-18); BUN/Creat Ratio 26.1 RATIO (10-20); Calcium,Total 7.7 mg/dL (8.5-10.1); Chloride 108 mmol/L (98-107); Creatinine, Serum 1.34 mg/dL (0.70-1.30); EST Glomerular Filtration Rate 55 mL/min (>60); Est Glom Filt Rate - Afr Amer 66 mL/min (>60); Estimated Creatinine Clearance 33.61 ml/min; Glucose 103 mg/dL (74-106); Potassium 4.7 mmol/L (3.5-5.1); Sodium Level 140 mmol/L (136-145)
[2019-10-22] MEDS: Ipratropium/Albuterol Sulfate 3 ML AMPUL.NEB INHALATION ×2 (07:20→12:55)
[2019-10-22 07:21] VITALS: PULSE 76; RESP 16; O2SAT 95
[2019-10-22] MEDS: Azithromycin 250 MG Tablet PO (07:43)
[2019-10-22] MEDS: Carvedilol 25 MG Tablet PO ×2 (07:43→16:20)
[2019-10-22 07:44] VITALS: BP 172/57; PULSE 64
[2019-10-22] MEDS: Iron Polysaccharide Complex 150 MG CAPSULE PO (10:31)
[2019-10-22] MEDS: Tuberculin,Purif.prot.deriv. 50 TU/ML Vial 5 ML ID (10:31)
[2019-10-22 12:55] VITALS: PULSE 76; RESP 18; O2SAT 95
--- NOTE | 2019-10-22 15:11 | CHAPLAIN ---
Type of Pastoral Visit ___ Initial Visit _x__ Follow-up Visit ___ On-call Visit ___ General Patient Visit ___ Spiritual Assessment ___ Family Conference ___ Bereavement ___ Rapid Response ___ Code Blue ___ Other (describe below) Pastoral Care Referral From _x__ Patient ___ Family ___ Nurse ___ Physician ___ Molecular Modeler ___ Supervisor Carpenters ___ Other (describe below) Sacrament/Intervention _x__ Active listening ___ Anointing ___ Pentecostal ___ Bereavement ___ Communion ___ Trupti exploration ___ ___ Life review ___ Prayer ___ Reconciliation ___ Sacrament of Sick ___ Supportive presence ___ Wedding ___ Other (describe below) Pastoral Comments patient had several family visitors; general conversation; pt is looking forward to team meeting tomorrow and for a decision to go home;
[2019-10-22 15:21] VITALS: BP 178/58; PULSE 65; RESP 20; TEMP 36.5; O2SAT 99
[2019-10-22] MEDS: Tamsulosin HCl 0.4 MG Capsule 0.8 MG PO (16:21)
[2019-10-22 17:21] VITALS: BP 157/67; PULSE 61
[2019-10-22] MEDS: MELATONIN 10 MG TABLET PO (20:31)
[2019-10-23] MEDS: Furosemide 40 MG Tablet PO (05:31)
[2019-10-23] MEDS: Ramipril 10 MG Capsule PO ×2 (05:32→17:36)
[2019-10-23] MEDS: Acetaminophen 500 MG Tablet 1000 MG PO ×3 (05:32→21:04)
[2019-10-23] MEDS: Amiodarone 200 MG Tablet PO (05:32)
[2019-10-23] MEDS: Senna/Docusate Sodium 1 Tablet 2 TABLET PO ×2 (05:32→17:36)
[2019-10-23] MEDS: Levothyroxine 100 MCG Tablet PO (05:32)
[2019-10-23] MEDS: Cefdinir 300 MG Capsule PO ×2 (05:32→17:41)
[2019-10-23] MEDS: Carvedilol 25 MG Tablet PO ×2 (07:47→17:36)
[2019-10-23] MEDS: Iron Polysaccharide Complex 150 MG CAPSULE PO (07:47)
--- NOTE | 2019-10-23 08:02 | MDS.RN ---
Information for the mds was obtained from review of the clinical record, interview of resident, staff, and direct observation of resident's care.
--- NOTE | 2019-10-23 09:37 | CASEMGMT ---
Social Work IDT met with patient and for care plan meeting. Discussed patient's progress in therapy. Pt is min assist to sit to stand, modified independence for all other ADLS, walking 415 ft with FWW and completed 2 flights of steps. Pt lives at home with and independent prior. Explained Medicare benefit. Reviewed medications. Pt expressed appreciation for TCU staff. IDT agreeable to DC home 10/26 with [facility] outpatient PT. Referral made. No DME needs. Plan: DC home with 10/26 with outpatient PT. CODEY LozanoW
--- NOTE | 2019-10-23 11:02 | CASEMGMT ---
Social Work Completed HPOA and Living Will documents with patient. Copies placed on chart. CODEY LozanoW
[2019-10-23 16:00] VITALS: BP 99/51; PULSE 76; RESP 16; TEMP 36.7; O2SAT 96
[2019-10-23 17:33] VITALS: BP 161/64; PULSE 73
[2019-10-23] MEDS: Tamsulosin HCl 0.4 MG Capsule 0.8 MG PO (17:36)
--- NOTE | 2019-10-23 20:00 | PCM.DC ---
- Discharge Diagnoses Current Active Problems: Current Active and Chronic Problems (Last Updated 10/11/19 @ 02:24 by Marely Pendleton MD) Debility (Acute) Closed right hip fracture (Acute) Hyperlipidemia (Chronic) Coronary artery disease (Chronic) Hypertension (Chronic) Chronic diastolic heart failure (Chronic) You will use the following diet at home:: No restrictions, Regular Your food should be the consistency of: Regular Your liquids should be the consistency of: Regular/Thin Discharge Activity: Return to Normal Activity, May Shower, Use Walker Weight Bearing Status: Weight bearing as tolerated Call your doctor if you observe: Fever of 101 or Higher, Inability to urinate, Inability to have a bowel movement, Shortness of breath, Chest pain, Uncontrolled pain Allergies/Adverse Reactions: Allergies No Known Allergies Allergy (Verified 10/11/19 00:04) Medications to take at Discharge cholecalciferol (vitamin D3) 50 mcg (2,000 unit) capsule 2,000 unit PO QDAY 04/23/18 nitroglycerin 0.4 mg sublingual tablet 0.4 mg SUBLINGUAL Q5-15M PRN 04/23/18 Ipratropium/Albuterol Sulfate [Duoneb] 3 ml INHALATION Q6H.RT PRN 02/15/19 ramipril 10 mg capsule 10 mg PO BID cap 05/02/19 amiodarone 200 mg tablet 200 mg PO DAILY #30 tab 08/26/19 Acetaminophen [Tylenol] 1,000 mg PO Q8 10/14/19 Carvedilol 25 mg PO BID 10/14/19 Furosemide 40 mg PO DAILY 10/14/19 Levothyroxine Sodium 100 mcg PO DAILY 10/14/19 Tamsulosin HCl [Flomax] 0.8 mg PO DAILY@1730 10/14/19 Warfarin [Coumadin] 3 mg PO DAILY@1700 10/14/19 Calcium Carbonate [Tums] 500 mg PO Q4H PRN PRN tablet 10/23/19 Emollient Combination No.72 [Eucerin Intensive Repair] 1 applic TOPICAL QHS lotion 10/23/19 Guaifenesin Dm [Robitussin Dm] 10 ml PO Q6H PRN PRN udc 10/23/19 Iron Polysaccharide Complex [Ferrex 150] 150 mg PO DAILYCM #30 cap 10/23/19 Melatonin 10 mg PO QHS tablet 10/23/19 Tamsulosin HCl [Flomax] 0.8 mg PO DAILY@1730 #30 cap 10/23/19 The following prescriptions were given: Iron Polysaccharide Complex [Ferrex 150] 150 mg PO DAILYCM #30 cap Transmission Status: Pending to [facility] #30 Tamsulosin HCl [Flomax] 0.8 mg PO DAILY@1730 #30 cap Transmission Status: Pending to [facility] #30 Orders to be completed after discharge: Prothrombin Time w/INR Time Frame: 2 Days, Facility: [facility], Location: Laboratory Primary Care Physician: Ihsan Modi MD [Primary Care Provider] - Please follow up with your Primary Care Physician in: 1 week. Test Results: Test results from this visit will be discussed in further detail at your follow-up appointment, if applicable. Please Follow Up With: Gilberto Bush MD When: 2 weeks. Proposed Discharge Date: 10/26/19
--- NOTE | 2019-10-23 20:01 | DS.PCM_ITS ---
Discharge Date and Diagnosis - Problem List Patient Problems: Active and Suspected Problems (Last Updated 10/11/19 @ 02:24 by Marely Pendleton MD) Debility (Acute) Closed right hip fracture (Acute) Date of Admission: 10/14/19 Date of Discharge: 10/26/19 - Primary Discharge Diagnosis Active and Suspected Problems (Last Updated 10/11/19 @ 02:24 by Marely Pendleton MD) Debility (Acute) Closed right hip fracture (Acute) - Secondary Discharge Diagnosis Chronic Problems (Last Updated 10/11/19 @ 02:24 by Marely Pendleton MD) Hyperlipidemia (Chronic) Coronary artery disease (Chronic) Hypertension (Chronic) Chronic diastolic heart failure (Chronic) Mixed hyperlipidemia (Chronic) Chronic heart failure with preserved ejection fraction (Chronic) History of aortic valve repair (Chronic ~10/28/07) Hx of repair of ascending aorta (Chronic ~10/28/07) 32mm [place] graft 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) Essential hypertension (Chronic) Presence of stent in coronary artery (Chronic ~05/24/06) PCI/ILANA of the of 2nd Diagonal instent restenosis 05/24/06 Atherosclerotic heart disease of [place] coronary artery without angina pectoris (Chronic) COPD (chronic obstructive pulmonary disease) (Chronic) Tobacco abuse (Chronic) Tobacco dependence in remission (Chronic) Pulmonary embolism (Chronic) Hypothyroidism (Chronic) Atrial fibrillation (Chronic) Hospital Course and Treatment Imaging Results: 10/14/19 10:54 Diet: Cardiac/Low Cholesterol Clinical Impression(s) from Imaging Studies Chest X-Ray 10/17/19 08:19 IMPRESSION: Right upper lobe, lingula and left lower lobe consolidations potentially representing pneumonia. Recommend correlation for clinical signs and symptoms referable to these regions. Additionally, recommend radiographic follow-up until complete clearing to exclude underlying pathology. Small left parapneumonic effusion. Persistent cardiomegaly. Status post median sternotomy. Atherosclerotic peripheral vascular disease and senescent changes of the descending thoracic aorta. Age-indeterminate compression deformity of an inferior thoracic vertebral body resulting in angulation and mild exaggeration of the thoracic kyphosis. Electronically Signed: Shakeel Hgaer MD at 9:25 EST , Service support , Labs (Last 48 Hours) 10/22/19 10/22/19 05:05 05:05 WBC 8.5 RBC 3.19 L Hgb 8.6 L Hct 28.1 L MCV 88.1 MCH 27.0 MCHC 30.6 L RDW Std Deviation 50.5 H RDW Coeff of Ej 16.1 H Plt Count 192 MPV 9.4 Immature Gran % (Auto) 1.300 H Neut % (Auto) 78.5 H Lymph % (Auto) 13.1 L [place] % (Auto) 6.9 Eos % (Auto) 0.1 Baso % (Auto) 0.1 Absolute Neuts (auto) 6.6 Absolute Lymphs (auto) 1.11 Nucleated RBC % 0 Sodium 140 Potassium 4.7 Chloride 108 H Carbon Dioxide 28.0 Anion Gap 4 L BUN 35 H Creatinine 1.34 H Estim Creat Clear Calc 33.61 Est GFR (MDRD) Af Amer 66 Est GFR (MDRD) Non-Af 55 L BUN/Creatinine Ratio 26.1 H Glucose 103 Calcium 7.7 L Microbiology 10/21/19 11:45 Urine, Random Urine Culture - Final Culture exhibits no growth. Operations: None Procedures: None Summary of Care Provided: The patient is a 79 year old Male with below past medical history hospitalized for right hip fracture, underwent right hip cemented arthroplasty 10/11/[address] Yan, admitted to TCU with debility, here for rehabilitation, strengthening, prior to discharge home with . On TCU, iron added for post-operative anemia, consider stopping in near future. Resident treated for pneumonia with Cefdinir, Z-satinder, Medrol dose pack, respiratory status back to baseline. Discharge home with , outpatient PT. Patient Problems: Active and Suspected Problems (Last Updated 10/11/19 @ 02:24 by Marely Pendleton MD) Debility (Acute) Closed right hip fracture (Acute) - Physical Exam Vitals/I&O's: Vital Signs Temp Pulse Resp BP Pulse Ox 98.0 F 73 16 161/64 H 96 10/23/19 16:00 10/23/19 17:33 10/23/19 16:00 10/23/19 17:33 10/23/19 16:00 Oxygen Delivery Method Room Air Weight: 56.897 kg Body Mass Index (BMI) 23.8 Intake and Output for Last 24 Hours 10/21/19 10/22/19 10/23/19 23:59 23:59 23:59 Intake Total 600 / 600 1670 / 1670 600 / 600 Output Total 600 / 600 Balance 600 / 600 1670 / 1670 0 / 0 Microbiology Past 72 Hours 10/21/19 11:45 Urine, Random Urine Culture - Final Culture exhibits no growth. Current Medications Acetaminophen (Tylenol) 1,000 mg PO Q8 [facility] Last Admin: 10/23/19 14:42 Dose: 1,000 mg Documented by: Albuterol Sulfate (Ventolin Aerosols) 2.5 mg INHALATION Q4H PRN PRN PRN Reason: Shortness of breath, wheezing Amiodarone HCl (Cordarone) 200 mg PO DAILY [facility] Last Admin: 10/23/19 05:32 Dose: 200 mg Documented by: Bisacodyl (Dulcolax) 10 mg PO DAILY PRN PRN Reason: Constipation Calcium Carbonate (Tums) 500 mg PO Q4H PRN PRN PRN Reason: INDIGESTION Last Admin: 10/18/19 15:00 Dose: 500 mg Documented by: Carvedilol (Coreg) 25 mg PO 0800,1700 [facility] Last Admin: 10/23/19 17:36 Dose: 25 mg Documented by: Cefdinir (Omnicef [Equiv]) 300 mg PO Q12 [facility] Stop: 10/24/19 09:52 Last Admin: 10/23/19 17:41 Dose: 300 mg Documented by: Cholecalciferol (Vitamin D) 2,000 unit PO DAILY [facility] Last Admin: 10/23/19 05:31 Dose: 2,000 unit Documented by: Emollient Ointment (Eucerin Intensive Repair) 1 applic TOPICAL QHS [facility]; Protocol Last Admin: 10/22/19 20:30 Dose: 1 applicatio Documented by: Furosemide (Lasix) 40 mg PO DAILY [facility] Last Admin: 10/23/19 05:31 Dose: 40 mg Documented by: Guaifenesin (Robitussin Dm) 10 ml PO Q6H PRN PRN PRN Reason: COUGH Last Admin: 10/22/19 20:29 Dose: 10 ml Documented by: Levothyroxine Sodium (Synthroid) 100 mcg PO DAILY [facility] Last Admin: 10/23/19 05:32 Dose: 100 mcg Documented by: Melatonin (Melatonin) 10 mg PO QHS [facility] Last Admin: 10/22/19 20:31 Dose: 10 mg Documented by: Nitroglycerin (Nitrostat) 0.4 mg SUBLINGUAL Q5M PRN PRN Reason: Pain Score 1-10/10 Oxycodone HCl (Oxyir) 5 mg PO Q4H PRN PRN PRN Reason: Pain Score 4-10/10 Polyethylene Glycol (Miralax) 17 gm PO DAILY [facility] Last Admin: 10/23/19 05:31 Dose: Not Given Documented by: Polysaccharide Iron Complex (Ferrex 150) 150 mg PO DAILYCM [facility] Last Admin: 10/23/19 07:47 Dose: 150 mg Documented by: Ramipril (Altace) 10 mg PO BID [facility] Last Admin: 10/23/19 17:36 Dose: 10 mg Documented by: Senna/Docusate Sodium (Senokot-S, Ayala-Colace) 2 tablet PO BID [facility] Last Admin: 10/23/19 17:36 Dose: 2 tablet Documented by: Tamsulosin HCl (Flomax) 0.8 mg PO DAILY@1730 [facility] Last Admin: 10/23/19 17:36 Dose: 0.8 mg Documented by: Warfarin Sodium (Coumadin (Pbkc)) 2 mg PO DAILY@1700 [facility] Last Admin: 10/23/19 17:36 Dose: 2 mg Documented by: Discharge Diet: No Restrictions Discharge Activity: Return to Normal Activity, May Shower, Use Walker Weight Bearing Status: Weight bearing as tolerated Call your doctor if you observe: Fever of 101 or Higher, Inability to urinate, Inability to have a bowel movement, Shortness of breath, Chest pain, Uncontrolled pain Home Medications: Medications to take at Discharge cholecalciferol (vitamin D3) 50 mcg (2,000 unit) capsule 2,000 unit PO QDAY 04/23/18 nitroglycerin 0.4 mg sublingual tablet 0.4 mg SUBLINGUAL Q5-15M PRN 04/23/18 Ipratropium/Albuterol Sulfate [Duoneb] 3 ml INHALATION Q6H.RT PRN 02/15/19 ramipril 10 mg capsule 10 mg PO BID cap 05/02/19 amiodarone 200 mg tablet 200 mg PO DAILY #30 tab 08/26/19 Acetaminophen [Tylenol] 1,000 mg PO Q8 10/14/19 Carvedilol 25 mg PO BID 10/14/19 Furosemide 40 mg PO DAILY 10/14/19 Levothyroxine Sodium 100 mcg PO DAILY 10/14/19 Tamsulosin HCl [Flomax] 0.8 mg PO DAILY@1730 10/14/19 Warfarin [Coumadin] 3 mg PO DAILY@1700 10/14/19 Calcium Carbonate [Tums] 500 mg PO Q4H PRN PRN tablet 10/23/19 Emollient Combination No.72 [Eucerin Intensive Repair] 1 applic TOPICAL QHS lotion 10/23/19 Guaifenesin Dm [Robitussin Dm] 10 ml PO Q6H PRN PRN udc 10/23/19 Iron Polysaccharide Complex [Ferrex 150] 150 mg PO DAILYCM #30 cap 10/23/19 Melatonin 10 mg PO QHS tablet 10/23/19 Tamsulosin HCl [Flomax] 0.8 mg PO DAILY@1730 #30 cap 10/23/19 Following Prescrptions Were Given to Patient: Iron Polysaccharide Complex [Ferrex 150] 150 mg PO DAILYCM #30 cap Transmission Status: Pending to [facility] #30 Tamsulosin HCl [Flomax] 0.8 mg PO DAILY@1730 #30 cap Transmission Status: Pending to [facility] #30 Other Amb Orders: Prothrombin Time w/INR Time Frame: 2 Days, Facility: [facility], Location: Laboratory Primary Care Physician: Ihsan Modi MD [Primary Care Provider] - Please follow up with your Primary Care Physician in: 1 week. Please Follow Up With: Gilberto Bush MD When: 2 weeks. Disposition: Home Minutes spent on discharge:: 30 Patient Condition:: Stable Medical Necessity - Tobacco Use Smoking Status: Former smoker Tobacco Use: Cigarettes Meaningful Use Info Meaningful Use Diagnoses (Choose all that apply): None applicable
[2019-10-23] MEDS: MELATONIN 10 MG TABLET PO (21:04)
[2019-10-24] MEDS: Acetaminophen 500 MG Tablet 1000 MG PO ×3 (05:15→21:26)
[2019-10-24] MEDS: Senna/Docusate Sodium 1 Tablet 2 TABLET PO ×2 (05:15→17:02)
[2019-10-24] MEDS: Amiodarone 200 MG Tablet PO (05:15)
[2019-10-24] MEDS: Ramipril 10 MG Capsule PO ×2 (05:15→17:03)
[2019-10-24] MEDS: Cefdinir 300 MG Capsule PO (05:15)
[2019-10-24] MEDS: Furosemide 40 MG Tablet PO (05:15)
[2019-10-24] MEDS: Levothyroxine 100 MCG Tablet PO (05:15)
[2019-10-24 06:14] LABS: International Normalized Ratio 2.2
[2019-10-24] MEDS: Carvedilol 25 MG Tablet PO ×2 (08:02→17:02)
[2019-10-24 08:03] VITALS: BP 154/73; PULSE 72
[2019-10-24] MEDS: Iron Polysaccharide Complex 150 MG CAPSULE PO (11:51)
[2019-10-24 15:38] VITALS: BP 113/48; PULSE 78; RESP 16; TEMP 36.7; O2SAT 99
[2019-10-24] MEDS: Tamsulosin HCl 0.4 MG Capsule 0.8 MG PO (17:03)
[2019-10-24] MEDS: MELATONIN 10 MG TABLET PO (21:26)
[2019-10-25] MEDS: Amiodarone 200 MG Tablet PO (04:55)
[2019-10-25] MEDS: Furosemide 40 MG Tablet PO ×2 (04:56→16:31)
[2019-10-25] MEDS: Ramipril 10 MG Capsule PO ×2 (04:56→16:31)
[2019-10-25] MEDS: Senna/Docusate Sodium 1 Tablet 2 TABLET PO ×2 (04:56→16:31)
[2019-10-25] MEDS: Levothyroxine 100 MCG Tablet PO (04:57)
[2019-10-25] MEDS: Acetaminophen 500 MG Tablet 1000 MG PO ×3 (04:57→21:06)
[2019-10-25] MEDS: Carvedilol 25 MG Tablet PO ×2 (08:26→16:31)
[2019-10-25] MEDS: Iron Polysaccharide Complex 150 MG CAPSULE PO (08:26)
--- NOTE | 2019-10-25 15:17 | NURSING ---
UPDATED DR. FOX OF INCREASED EDEMA TO R' LE'S. DR. FOX INCREASED LASIX TO 40MG BID. WILL UPDATE R' AND .
[2019-10-25 16:00] VITALS: BP 156/77; PULSE 68; RESP 18; TEMP 36.1; O2SAT 98
[2019-10-25] MEDS: Tamsulosin HCl 0.4 MG Capsule 0.8 MG PO (16:31)
[2019-10-25] MEDS: MELATONIN 10 MG TABLET PO (21:06)
[2019-10-26] MEDS: Amiodarone 200 MG Tablet PO (05:14)
[2019-10-26] MEDS: Senna/Docusate Sodium 1 Tablet 2 TABLET PO (05:14)
[2019-10-26] MEDS: Acetaminophen 500 MG Tablet 1000 MG PO (05:14)
[2019-10-26] MEDS: Levothyroxine 100 MCG Tablet PO (05:14)
[2019-10-26] MEDS: Furosemide 40 MG Tablet PO (05:14)
[2019-10-26] MEDS: Ramipril 10 MG Capsule PO (05:14)
[2019-10-26 08:12] VITALS: BP 170/74; PULSE 83; RESP 16; TEMP 36.5; O2SAT 96
[2019-10-26] MEDS: Iron Polysaccharide Complex 150 MG CAPSULE PO (08:14)
[2019-10-26] MEDS: Carvedilol 25 MG Tablet PO (08:14)
== END 2019-10-26 10:40 | disposition home or self-care (01) | DRG 559 ==
PROVIDERS: Admitting Provider Family Medicine Geriatric Medicine; Family Provider Family Medicine; PCP Family Medicine; Visit Provider Family Medicine Geriatric Medicine
DX: S72.001D Fracture of unspecified part of neck of right femur, subsequent encounter for closed fracture with routine healing (principal); J18.9 Pneumonia, unspecified organism; I50.32 Chronic diastolic (congestive) heart failure; I48.20 Chronic atrial fibrillation, unspecified; J44.0 Chronic obstructive pulmonary disease with (acute) lower respiratory infection; W19.XXXD Unspecified fall, subsequent encounter; E03.9 Hypothyroidism, unspecified; I11.0 Hypertensive heart disease with heart failure; I25.10 Atherosclerotic heart disease of native coronary artery without angina pectoris; E78.2 Mixed hyperlipidemia; N40.0 Benign prostatic hyperplasia without lower urinary tract symptoms; Z87.891 Personal history of nicotine dependence; Z86.711 Personal history of pulmonary embolism; E55.9 Vitamin D deficiency, unspecified; D64.9 Anemia, unspecified
CPT/HCPCS: 36415; 71046; 80048; 81001; 85025; 85610; 87086; 94640; 97110; 97116; 97162; 97166; 97530; 97535; 97802; 99251; G0463

== ENCOUNTER → 2019-11-11 12:00 | Outpatient (CLI) | payer MEDICARE, OTHER, SELFPAY ==
[2019-10-14 10:40] VITALS: BMI 23.8
[2019-11-11 12:53] LABS: Hematocrit 31.5 % (40-54); Hemoglobin 9.7 g/dL (13.0-16.5); Mean Corp Hgb Conc 30.8 g/dL (32-36); Mean Corpuscular Hgb 27.5 pg (27.0-32.0); Mean Corpuscular Volume 89.2 fL (80-94); Mean Platelet Vol. 9.5 fl (6.2-12.0); Platelet Count 233 K/mm3 (150-450); RBC Distribution Width CV 16.5 % (11.6-14.6); Red Blood Count 3.53 M/mm3 (4.6-6.2)
[2019-11-11 13:04] LABS: Prothrombin Time (Protime)PT. 49.4 SECONDS (11.7-14.9)
[2019-11-11 13:11] LABS: International Normalized Ratio 5.3
[2019-11-11 13:16] LABS: Anion Gap 4 (5-15); BUN 20 mg/dL (7-18); Calcium,Total 8.4 mg/dL (8.5-10.1); Chloride 107 mmol/L (98-107); Creatinine, Serum 1.25 mg/dL (0.70-1.30); EST Glomerular Filtration Rate 59 mL/min (>60); Est Glom Filt Rate - Afr Amer 72 mL/min (>60); Glucose 85 mg/dL (74-106); Potassium 3.4 mmol/L (3.5-5.1); Sodium Level 142 mmol/L (136-145); Thyroid Stim Hormone (TSH) 7.76 uIU/mL (0.358-3.74)
== END ==
PROVIDERS: PCP Family Medicine; Referring Provider Family Medicine; Visit Provider Family Medicine
DX: N18.2 Chronic kidney disease, stage 2 (mild) (principal); D63.1 Anemia in chronic kidney disease; I48.91 Unspecified atrial fibrillation; E03.9 Hypothyroidism, unspecified
CPT/HCPCS: 36415; 80048; 84443; 85027; 85610; 85730

== ENCOUNTER → 2019-11-11 13:02 | Outpatient (CLI) | payer MEDICARE, OTHER, SELFPAY ==
[2019-10-14 10:40] VITALS: BMI 23.8
--- NOTE | 2019-11-11 13:07 | VDLE_ITS ---
Reason For Study: Leg swelling RIGHT LEFT GSV is normal. CFV is compressible, spontaneous, phasic, CFV is compressible, spontaneous, phasic, competent, and demonstrates normal competent and demonstrates normal augmentation. augmentation. FV is compressible, spontaneous, phasic, competent and demonstrates normal augmentation. POP V is compressible, spontaneous, phasic, competent and demonstrates normal augmentation. T/P Trunk is compressible. PTV is compressible. RT PerV is compressible. Procedure Exam performed in department. A preliminary report was called and/or faxed to [facility]. Interpretation Summary Deep veins of the right lower extremity are patent and compressible segmentally. There is no evidence of right lower extremity deep vein thrombosis. Valvular competence appears intact within the proximal deep venous system on the right . The right great saphenous vein appears patent and compressible segmentally. Ordering Physician: Ihsan Modi Referring Physician: Ihsan Modi Performed By: Siobhan Mike RVT
== END ==
PROVIDERS: PCP Family Medicine; Referring Provider Family Medicine; Visit Provider Family Medicine
DX: M79.89 Other specified soft tissue disorders (principal); N18.2 Chronic kidney disease, stage 2 (mild); D63.1 Anemia in chronic kidney disease; I48.91 Unspecified atrial fibrillation; E03.9 Hypothyroidism, unspecified
CPT/HCPCS: 36415; 80048; 84443; 85027; 85610; 85730; 93971

== ENCOUNTER → 2019-11-14 11:11 | Outpatient (CLI) | payer MEDICARE, OTHER, SELFPAY ==
[2019-10-14 10:40] VITALS: BMI 23.8
[2019-11-14 13:47] LABS: Erythrocyte Sedimentation Rate 11 mm/hr (0-20)
[2019-11-14 13:49] LABS: Absolute Lymphocyte Count 1.35 X10^3/uL (0.83-4.51); Absolute Neutrophil Count 3.7 X10^3/uL (2.0-7.7); Basophil# 0.02 X10^3/uL; Basophil% 0.4 % (0-1); Eosinophil# 0.06 X10^3/uL; Eosinophils% 1.1 % (0-5); Hematocrit 31.4 % (40-54); Hemoglobin 9.4 g/dL (13.0-16.5); Lymphocyte # 1.35 X10^3/ul (4.0); Lymphocyte % 23.7 % (19-41); Mean Corp Hgb Conc 29.9 g/dL (32-36); Mean Corpuscular Hgb 27.4 pg (27.0-32.0); Mean Corpuscular Volume 91.5 fL (80-94); Mean Platelet Vol. 9.7 fl (6.2-12.0); Monocyte# 0.55 X10^3/uL; Monocyte% 9.7 % (0-10); NRBC Flagged by Analyzer 0 % (0-5); Neutrophil # 3.69 X10^3/uL (2.7-7.7); Neutrophil % 64.7 % (47-70); Platelet Count 248 K/mm3 (150-450); RBC Distribution Width CV 16.6 % (11.6-14.6); Red Blood Count 3.43 M/mm3 (4.6-6.2); White Blood Count 5.7 K/mm3 (4.4-11.0)
== END ==
PROVIDERS: PCP Family Medicine; Referring Provider Physician Assistant; Visit Provider Physician Assistant
DX: Z96.641 Presence of right artificial hip joint (principal)
CPT/HCPCS: 36415; 85025; 85652; 86140

== ENCOUNTER → 2019-11-27 12:52 | Outpatient (CLI) | payer MEDICARE, OTHER, SELFPAY ==
[2019-10-14 10:40] VITALS: BMI 23.8
--- NOTE | 2019-11-27 13:10 | CT_ITS ---
STUDY: CT RIGHT HIP REASON FOR EXAM: Male, 79 years old. Right groin pain, recent hip replacement. ? hematoma. MAR reconstruction used. RADIATION DOSAGE (If Supplied By Facility): CTDIvol = ( 15.35 ) mGy, DLP = ( 650.49 ) mGycm TECHNIQUE: Transaxial imaging of the right hip was performed without oral contrast, and without intravenous administration of contrast material. Individualized dose optimization techniques were used for this CT. COMPARISON: X-ray October 11, 2019 FINDINGS: RIGHT HIP There is right hip replacement. Alignment is near-anatomic. There is no acute fracture. There is 8.0 x 5.6 cm heterogeneous density fluid collection at the trochanteric bursa. OSSEOUS PELVIS Normal bilateral superior and inferior pubic rami. Normal pubic symphysis. Normal ischial tuberosity. Normal visualized iliac wing, sacroiliac joint, and sacral ala. There are vascular calcifications. There is 3.2 cm infrarenal aortic aneurysm. There is diverticulosis of the colon. CT/Extremity Lower without Contra IMPRESSION: Right hip replacement. Fluid collection with hematoma or seroma at the trochanteric bursa. Electronically Signed: Víctor Sylvester MD at 21:12 EST , Service support ,
== END ==
PROVIDERS: PCP Family Medicine; Referring Provider Physician Assistant; Visit Provider Physician Assistant
DX: Z96.641 Presence of right artificial hip joint (principal)
CPT/HCPCS: 73700

== ENCOUNTER → 2019-12-04 15:42 | Outpatient (CLI) | payer MEDICARE, OTHER, SELFPAY ==
[2019-12-04 13:18] VITALS: BMI 25.0
[2019-12-04 17:23] LABS: Anion Gap 3 (5-15); BUN 24 mg/dL (7-18); BUN/Creat Ratio 18.8 RATIO (10-20); Calcium,Total 8.9 mg/dL (8.5-10.1); Chloride 108 mmol/L (98-107); Creatinine, Serum 1.28 mg/dL (0.70-1.30); EST Glomerular Filtration Rate 58 mL/min (>60); Est Glom Filt Rate - Afr Amer 70 mL/min (>60); Glucose 83 mg/dL (74-106); Potassium 3.7 mmol/L (3.5-5.1); Sodium Level 144 mmol/L (136-145)
== END ==
PROVIDERS: PCP Family Medicine; Referring Provider Physician Assistant Medical; Visit Provider Physician Assistant Medical
DX: I10 Essential (primary) hypertension (principal)
CPT/HCPCS: 36415; 80048

== ENCOUNTER → 2020-02-10 11:41 | Outpatient (CLI) | payer MEDICARE, OTHER, SELFPAY ==
[2019-12-04 13:18] VITALS: BMI 25.0
[2020-02-10 15:00] LABS: Absolute Lymphocyte Count 0.97 X10^3/uL (0.83-4.51); Basophil# 0.02 X10^3/uL; Basophil% 0.3 % (0-1); Eosinophil# 0.04 X10^3/uL; Eosinophils% 0.6 % (0-5); Hematocrit 33.2 % (40-54); Hemoglobin 9.9 g/dL (13.0-16.5); Lymphocyte # 0.97 X10^3/ul (4.0); Lymphocyte % 14.9 % (19-41); Mean Corp Hgb Conc 29.8 g/dL (32-36); Mean Corpuscular Hgb 26.3 pg (27.0-32.0); Mean Corpuscular Volume 88.1 fL (80-94); Mean Platelet Vol. 10.4 fl (6.2-12.0); Monocyte# 0.44 X10^3/uL; Monocyte% 6.8 % (0-10); NRBC Flagged by Analyzer 0 % (0-5); Neutrophil # 5.02 X10^3/uL (2.7-7.7); Neutrophil % 77.2 % (47-70); Platelet Count 167 K/mm3 (150-450); RBC Distribution Width CV 14.7 % (11.6-14.6); RBC Distribution Width SD 47.6 fl (35.1-43.9); Red Blood Count 3.77 M/mm3 (4.6-6.2); White Blood Count 6.5 K/mm3 (4.4-11.0)
[2020-02-10 15:36] LABS: ALB/GLOB Ratio 0.9 RATIO (0.9-2.4); AST(SGOT) 34 U/L (15-37); Alanine Aminotransfer ALT/SGPT 50 U/L (16-61); Alkaline Phosphatase 105 U/L (45-117); Anion Gap 4 (5-15); BUN 35 mg/dL (7-18); BUN/Creat Ratio 24.3 RATIO (10-20); Calcium,Total 8.6 mg/dL (8.5-10.1); Chloride 112 mmol/L (98-107); Creatinine, Serum 1.44 mg/dL (0.70-1.30); EST Glomerular Filtration Rate 50 mL/min (>60); Est Glom Filt Rate - Afr Amer 61 mL/min (>60); Globulin 3.4 g/dL (2.2-4.2); Glucose 102 mg/dL (74-106); Iron 34 ug/dL (65-175); Potassium 4.3 mmol/L (3.5-5.1); Protein, Total 6.4 g/dL (6.4-8.2); Sodium Level 145 mmol/L (136-145); T4 Free Direct 1.89 ng/dL (0.76-1.46); Thyroid Stim Hormone (TSH) 3.26 uIU/mL (0.358-3.74)
[2020-02-10 15:41] LABS: Vitamin B12 463 pg/mL (211-911)
== END ==
PROVIDERS: PCP Family Medicine; Referring Provider Family Medicine; Visit Provider Family Medicine
DX: E11.22 Type 2 diabetes mellitus with diabetic chronic kidney disease (principal); N18.2 Chronic kidney disease, stage 2 (mild); I48.91 Unspecified atrial fibrillation; E03.9 Hypothyroidism, unspecified; M25.475 Effusion, left foot; R53.83 Other fatigue
CPT/HCPCS: 36415; 80053; 82306; 82607; 83540; 84439; 84443; 85025

== ENCOUNTER → 2020-02-10 13:50 | Outpatient (CLI) | payer MEDICARE, OTHER, SELFPAY ==
[2019-12-04 13:18] VITALS: BMI 25.0
--- NOTE | 2020-02-10 13:54 | VDLE_ITS ---
Reason For Study: Swelling RIGHT LEFT CFV is compressible, spontaneous, competent GSV is normal. and demonstrates pulsatile venous flow. CFV is compressible, spontaneous, competent, Procedure and demonstrates pulsatile venous flow. Exam performed in department. FV is compressible, spontaneous, competent A preliminary report was called and/or faxed and demonstrates pulsatile venous flow. to [facility]. POP V is compressible, spontaneous, competent and demonstrates pulsatile venous flow. T/P Trunk is compressible. PTV is compressible. LT PerV is compressible. Interpretation Summary Deep veins of the left lower extremity are patent and compressible segmentally. There is no evidence of left lower extremity deep vein thrombosis. Valvular competence appears intact within the proximal deep venous system on the left . The left great saphenous vein appears patent and compressible segmentally. Pulsatile flow is noted in the deep venous system, which may be indicative of elevated central venous pressure (i.e. congestive heart failure, tricuspid valve insufficiency, etc.). Clinical correlation is advised. Ordering Physician: Ihsan Modi Referring Physician: Ihsan Modi Performed By: Siobhan Mike RVT
== END ==
PROVIDERS: PCP Family Medicine; Referring Provider Family Medicine; Visit Provider Family Medicine
DX: E11.22 Type 2 diabetes mellitus with diabetic chronic kidney disease (principal); N18.2 Chronic kidney disease, stage 2 (mild); E03.9 Hypothyroidism, unspecified; I48.91 Unspecified atrial fibrillation; M25.475 Effusion, left foot; M79.652 Pain in left thigh; R53.83 Other fatigue; E55.9 Vitamin D deficiency, unspecified
CPT/HCPCS: 36415; 80053; 82306; 82607; 83540; 84439; 84443; 85025; 93971

== ENCOUNTER → 2020-02-17 12:06 | Outpatient (CLI) | payer MEDICARE, OTHER, SELFPAY ==
[2019-12-04 13:18] VITALS: BMI 25.0
[2020-02-17 15:47] LABS: BNP,B-Type NATRIURETIC PEPTIDE 1276.4 pg/mL (0-100)
[2020-02-17 15:57] LABS: Prothrombin Time (Protime)PT. 47.7 SECONDS (11.7-14.9)
[2020-02-17 16:01] LABS: International Normalized Ratio 5.2
== END ==
PROVIDERS: PCP Family Medicine; Visit Provider Family Medicine
DX: I48.91 Unspecified atrial fibrillation (principal); I50.30 Unspecified diastolic (congestive) heart failure; M79.89 Other specified soft tissue disorders
CPT/HCPCS: 36415; 83880; 85610

== ENCOUNTER → 2020-04-03 14:12 | Outpatient (CLI) | payer MEDICARE, OTHER, SELFPAY ==
[2020-04-03 13:20] VITALS: BMI 25.9
--- NOTE | 2020-04-03 14:20 | RAD_ITS ---
STUDY: X-RAY CHEST REASON FOR EXAM: Male, 79 years old. CONGESTIVE HEART FAILURE, SOB TECHNIQUE: PA and lateral views of the chest. COMPARISON: October 17, 2019 FINDINGS: There are bilateral pleural effusions, right greater than left. There is a new ill-defined opacity within the right upper lung. Sternal cerclage wires are present from a prior sternotomy. There is cardiomegaly. There is a stable rounded opacity projecting over the cardiac silhouette suggestive of a hiatal hernia. Normal visualized pulmonary arteries. There is atherosclerotic calcification of the aortic arch with tortuosity. Normal visualized thoracic spine. Normal visualized ribs, clavicles, and shoulders. There is no demonstrated abnormality of the visualized soft tissue structures of the upper abdomen. RAD/Chest PA and Lateral IMPRESSION: Bilateral pleural effusions, cannot exclude associated bibasilar atelectasis and/or pneumonia. New ill-defined opacity within the right upper lung may be secondary to some combination of edema, pneumonia and/or atelectasis, cannot exclude a neoplastic process. Electronically Signed: Sandra Liriano MD at 17:16 EDT Tel , Service support ,
[2020-04-03 14:49] LABS: Absolute Lymphocyte Count 1.16 X10^3/uL (0.83-4.51); Absolute Neutrophil Count 4.5 X10^3/uL (2.0-7.7); Basophil# 0.02 X10^3/uL; Basophil% 0.3 % (0-1); Eosinophil# 0.13 X10^3/uL; Hematocrit 33.6 % (40-54); Hemoglobin 10.3 g/dL (13.0-16.5); Lymphocyte # 1.16 X10^3/ul (4.0); Mean Corp Hgb Conc 30.7 g/dL (32-36); Mean Platelet Vol. 9.5 fl (6.2-12.0); Monocyte# 0.55 X10^3/uL; Monocyte% 8.5 % (0-10); NRBC Flagged by Analyzer 0 % (0-5); Neutrophil # 4.54 X10^3/uL (2.7-7.7); Neutrophil % 70.6 % (47-70); Platelet Count 214 K/mm3 (150-450); RBC Distribution Width CV 16.6 % (11.6-14.6); RBC Distribution Width SD 52.2 fl (35.1-43.9); Red Blood Count 3.82 M/mm3 (4.6-6.2); White Blood Count 6.4 K/mm3 (4.4-11.0)
[2020-04-03 15:14] LABS: Anion Gap 4 (5-15); BNP,B-Type NATRIURETIC PEPTIDE 1937.3 pg/mL (0-100); BUN 34 mg/dL (7-18); BUN/Creat Ratio 23.6 RATIO (10-20); Calcium,Total 8.5 mg/dL (8.5-10.1); Chloride 112 mmol/L (98-107); Creatinine, Serum 1.44 mg/dL (0.70-1.30); EST Glomerular Filtration Rate 50 mL/min (>60); Est Glom Filt Rate - Afr Amer 61 mL/min (>60); Glucose 120 mg/dL (74-106); Sodium Level 144 mmol/L (136-145)
== END ==
PROVIDERS: PCP Family Medicine; Referring Provider Nurse Practitioner Family; Visit Provider Nurse Practitioner Family
DX: R06.00 Dyspnea, unspecified (principal); I50.32 Chronic diastolic (congestive) heart failure; I25.10 Atherosclerotic heart disease of native coronary artery without angina pectoris; Z95.5 Presence of coronary angioplasty implant and graft; S72.009A Fracture of unspecified part of neck of unspecified femur, initial encounter for closed fracture
CPT/HCPCS: 36415; 71046; 80048; 83880; 85025

== ENCOUNTER → 2020-04-07 10:29 | Outpatient (CLI) | payer MEDICARE, OTHER, SELFPAY ==
[2020-04-03 13:20] VITALS: BMI 25.9
[2020-04-07 12:57] LABS: Absolute Lymphocyte Count 1.36 X10^3/uL (0.83-4.51); Basophil# 0.02 X10^3/uL; Basophil% 0.3 % (0-1); Eosinophil# 0.13 X10^3/uL; Eosinophils% 1.8 % (0-5); Hematocrit 32.7 % (40-54); Hemoglobin 9.6 g/dL (13.0-16.5); Lymphocyte # 1.36 X10^3/ul (4.0); Lymphocyte % 19.1 % (19-41); Mean Corp Hgb Conc 29.4 g/dL (32-36); Mean Corpuscular Hgb 26.2 pg (27.0-32.0); Mean Corpuscular Volume 89.3 fL (80-94); Mean Platelet Vol. 9.9 fl (6.2-12.0); Monocyte% 8.4 % (0-10); NRBC Flagged by Analyzer 0 % (0-5); Neutrophil # 4.99 X10^3/uL (2.7-7.7); Platelet Count 221 K/mm3 (150-450); RBC Distribution Width CV 16.6 % (11.6-14.6); RBC Distribution Width SD 53.4 fl (35.1-43.9); Red Blood Count 3.66 M/mm3 (4.6-6.2); White Blood Count 7.1 K/mm3 (4.4-11.0)
[2020-04-07 13:17] LABS: ALB/GLOB Ratio 0.9 RATIO (0.9-2.4); AST(SGOT) 19 U/L (15-37); Alanine Aminotransfer ALT/SGPT 31 U/L (16-61); Albumin, Serum 3.1 g/dL (3.2-5.0); Alkaline Phosphatase 89 U/L (45-117); Anion Gap 7 (5-15); BUN 31 mg/dL (7-18); BUN/Creat Ratio 18.7 RATIO (10-20); Calcium,Total 8.5 mg/dL (8.5-10.1); Chloride 108 mmol/L (98-107); Creatinine, Serum 1.66 mg/dL (0.70-1.30); EST Glomerular Filtration Rate 43 mL/min (>60); Est Glom Filt Rate - Afr Amer 52 mL/min (>60); Ferritin 64 ng/mL (26-388); Globulin 3.3 g/dL (2.2-4.2); Glucose 92 mg/dL (74-106); Iron 38 ug/dL (65-175); Potassium 3.7 mmol/L (3.5-5.1); Prealbumin 22.4 mg/dL (20.0-40.0); Protein, Total 6.4 g/dL (6.4-8.2); Sodium Level 144 mmol/L (136-145); Thyroid Stim Hormone (TSH) 5.72 uIU/mL (0.358-3.74)
[2020-04-07 13:31] LABS: BNP,B-Type NATRIURETIC PEPTIDE 1697.6 pg/mL (0-100)
== END ==
PROVIDERS: PCP Family Medicine; Referring Provider Family Medicine; Visit Provider Family Medicine
DX: R06.00 Dyspnea, unspecified (principal); D64.9 Anemia, unspecified; R60.9 Edema, unspecified
CPT/HCPCS: 36415; 80053; 82728; 83540; 83880; 84134; 84443; 85025

== ENCOUNTER → 2020-04-07 10:56 | Outpatient (CLI) | payer MEDICARE, OTHER, SELFPAY ==
[2020-04-03 13:20] VITALS: BMI 25.9
--- NOTE | 2020-04-07 11:00 | CT_ITS ---
STUDY: CT CHEST WITH CONTRAST REASON FOR EXAM: Male, 79 years old. Chest pain/pressure, lung nodule, known aortic dissection RADIATION DOSAGE (If Supplied By Facility): CTDIvol = ( 15.91 ) mGy, DLP = ( 310.64 ) mGycm TECHNIQUE: Transaxial imaging was performed following intravenous administration of IV 100mL Isovue-300. Individualized dose optimization techniques were used for this CT. COMPARISON: Previous plain films FINDINGS: Lung windows show nonspecific pleural thickening in both apices. Bleb formation noted around the periphery of both upper lung alonzo with a fibrotic scar noted in the right upper lobe on axial image 16 there are also airspace opacifications in both upper lobes suggesting multifocal pneumonitis or early infiltrates with free flowing bilateral pleural effusions and bibasilar atelectasis. The soft tissue windows show normal-appearing thyroid gland. There has been a previous CABG. No suspicious axillary, mediastinal or perihilar adenopathy. In the proximal ascending thoracic aorta there are multiple irregular flaps consistent with a focal dissection. This does not extend into the aortic arch or proximal descending aorta. No periaortic fluid collection noted. Cuts through the upper abdomen however do show a second aortic dissection with the true and false lumen this starts basically at the lung bases and extends distally for the entirety of the scan. Additionally, there is aneurysmal dilatation of the abdominal aorta with maximum transverse dimensions of 6.2 x 5.2 cm There is mild cardiomegaly. Bony structures show degenerative changes Cuts through the upper abdomen show a prominent retrocardiac hiatal hernia. There are left renal cysts CT/Chest WITH Contrast IMPRESSION: Focal dissection in the proximal ascending aorta Aneurysmal dilatation of the abdominal aorta at 6.2 x 5.2 cm with associated dissection. No suspicious periaortic fluid collections. Underlying emphysema with bleb formation in the apices, there is nonspecific pleural thickening in the apices and scattered patchy airspace opacifications in both lung alonzo suggesting multifocal pneumonitis or developing infiltrates. There are free flowing bilateral pleural effusions, right greater than left with associated atelectasis Degenerative bony changes Remote CABG Hiatal hernia Likely simple left renal cysts no specific follow-up is needed Electronically Signed: Jason Graves MD at 11:37 EDT , Service support ,
== END ==
PROVIDERS: PCP Family Medicine; Referring Provider Family Medicine; Visit Provider Family Medicine
DX: R91.1 Solitary pulmonary nodule (principal)
CPT/HCPCS: 71260; Q9967

== ENCOUNTER 2020-04-07 18:41 | Emergency (ER) | payer MEDICARE, OTHER, SELFPAY ==
[2020-04-03 13:20] VITALS: BMI 25.9
[2020-04-07] VITALS (9 sets, daily range): BP systolic 164–198; BP diastolic 55–70; PULSE 56–65; RESP 15–18; TEMP 36.7; O2SAT 83–98; BMI 23.1
--- NOTE | 2020-04-07 19:30 | EKG12_ITS ---
Test Reason : ABD PAIN Blood Pressure : / mmHG Vent. Rate : 058 BPM Atrial Rate : 058 BPM P-R Int : 208 ms QRS Dur : 112 ms QT Int : 492 ms P-R-T Axes : 021 -46 087 degrees QTc Int : 482 ms Sinus bradycardia Left anterior fascicular block Left ventricular hypertrophy with repolarization abnormality Prolonged QT Abnormal ECG Confirmed by VERONICA VICENTE ([id number]), assignment editor MANUEL CHERRY ([id number]) on 04/14/2020 8:09:44 AM Referred By: Leonel Moreno Confirmed By:VERONICA VICENTE
--- NOTE | 2020-04-07 19:36 | ED.RN ---
CALLED [facility] TO INITIATE TRANSFER
[2020-04-07 20:16] LABS: International Normalized Ratio 1.7; Prothrombin Time (Protime)PT. 19.9 SECONDS (11.7-14.9)
--- NOTE | 2020-04-07 20:27 | ED.VIS.GEN ---
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 He has had no neurologic symptoms in his arms or legs. He has been dyspneic and had an outpatient CT of the chest today that incidentally showed a focal thoracic aortic dissection and a new abdominal aortic aneurysm at 6.2 cm which was not seen on his prior 2013 CT abdomen/pelvis, in addition to associated aortic dissection in this area. He did have some descending aortic dissection on that 2013 scan, unknown if it is different now. He has had no pains. He was sent to the ER today as a result of these CT findings. Patient states he has had a nonproductive cough that is been very mild. Even with exertion he has had no chest pains or arm pain. He has had no presyncopal or syncopal symptoms. He has chronic swelling in his left leg for the past 6 weeks that is been unchanged recently. He has had a scan to rule out DVT there. He is already anticoagulated on warfarin Past Medical History - Allergies and Home Meds Allergies/Adverse Reactions: Allergies No Known Allergies Allergy (Verified 04/07/20 18:42) Primary Care Physician: Ihsan Modi MD [Primary Care Provider] - Surgical History: angioplasty - Stent., - - Thoracic aortic [id number] Status post aortic valve replacement, Right hip cemented arthroplasty. Smoking Status: Former smoker - Family History Maternal Family History: Family History (Last Reviewed 12/04/19 @ 15:03 by RICK Alcocer) Grandfather Diabetes Brother Heart disease Family History: Reports: No pertinent history Paternal Family History: Family History (Last Reviewed 12/04/19 @ 15:03 by RICK Alcocer) Grandfather Diabetes Brother Heart disease Family History: Reports: No pertinent history Review of Systems General: Denies: Chills, Fever, Sweats Eyes: Denies: Visual changes - bilaterally, Diplopia ENT: Denies: Rhinorrhea, Sore throat Cardiovascular: Denies: Chest pain, Palpitations Respiratory: Reports: Dyspnea, Cough, Dyspnea on exertion. Denies: Sputum, Orthopnea Gastrointestinal: Denies: Abdominal pain, Nausea, Vomiting, Diarrhea, Melena, Hematochezia Genitourinary: Denies: Dysuria, Hematuria, Frequency Musculoskeletal: Reports: Swelling. Denies: Neck pain, Back pain, Extremity Pain Skin: Denies: Rash, Wounds Neurological: Denies: Headache, Weakness, Numbness Physical Exam Vital Signs/Narrative: Vital Signs Temp Pulse Resp BP Pulse Ox 04/07/20 19:59 59 L 15 181/59 H 98 04/07/20 18:43 98.1 F 65 18 198/70 H 93 Inital Vital Signs reviewed: Yes General: Well nourished, Well developed, No Acute Distress - Well-appearing, conversive in full sentences Head: Normocephalic, Atraumatic Eyes: Perrl, EOMI ENT: Moist mucous membranes, No rhinorrhea Neck: Supple, Nontender, No lymphadenopathy Cardiovascular: Regular rate, Regular rhythm, Murmur - 3/6 systolic. No diastolic murmur., - - 2+/4 symmetric bilateral radial and DP pulses Respiratory: No distress, CTA bilaterally, Chest nontender Abdomen: Soft, Nontender, Nondistended, Normal bowel sounds. Negative for: Pulsatile mass Back: Nontender, Normal Inspection. Negative for: CVA tenderness Extremities: Nontender, Edema - Left lower leg 1+ pitting. Negative for: Calf Tenderness Skin: Normal color, No rash, No Trauma Neurological: Alert, Oriented x3, Cranial nerves II-XII grossly intact, Normal Strength, Normal Sensation, Normal Gait Psychological: Normal affect, Normal Mood Diagnostic/Tx/Re-eval Laboratory Results 04/07/20 19:40 PT 19.9 H INR 1.7 - Medical Decision Making INR 1.7. EKG shows no acute injury, stable left anterior fascicular block. This patient CT shows several opacities in the airspace as well as bilateral pleural effusions, these findings probably are responsible for his symptoms. The incidental finding of multifocal aortic dissection as well as large nonruptured aortic abdominal aortic aneurysm are of unknown duration. The last imaging we have is from 2012 over 7 years ago. He was sent here to be sent safely to [facility]. I discussed with 13, they agree with all of the above, and plan on admitting him to the ICU for further evaluation, we transferred our images to them, and based on the images they are recommending air transport. They also understand that the patient is very clinically stable. His blood pressure is high and I am treating him with nitroprusside, since his heart rate is low and he has a murmur that may be consistent with aortic stenosis so I am avoiding hydralazine and labetalol for those reasons. I discussed all this with the family, they agree they do not want him flown at this time. Since I am placing him on a nitroprusside drip for blood pressure control, we are requesting critical care transport. He is accepted to [facility]. In addition, I am sending a COVID-19 test. This will be done stat here at our hospital with a 1-2-hour turnaround. That is pending. 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
[2020-04-07 22:44] LABS: Probe Check PASS; Specimen Processing Control PASS
== END 2020-04-07 22:35 | disposition short-term general hospital (02) ==
PROVIDERS: Emergency Provider Emergency Medicine; PCP Family Medicine
DX: I71.01 Dissection of thoracic aorta (principal); I71.4 Abdominal aortic aneurysm, without rupture; I71.00 Dissection of unspecified site of aorta; J90 Pleural effusion, not elsewhere classified; J18.9 Pneumonia, unspecified organism; R91.1 Solitary pulmonary nodule; R06.00 Dyspnea, unspecified; R60.9 Edema, unspecified; D64.9 Anemia, unspecified; Z79.01 Long term (current) use of anticoagulants; Z87.891 Personal history of nicotine dependence; Z95.2 Presence of prosthetic heart valve
CPT/HCPCS: 36415; 71260; 80053; 82728; 83540; 83880; 84134; 84443; 85025; 85610; 87635; 93005; 99285; G2023; Q9967; A4216; U0003

== ENCOUNTER 2020-04-25 22:33 | Emergency (ER) | payer MEDICARE, OTHER, SELFPAY ==
[2020-04-07 18:43] VITALS: BMI 23.1
[2020-04-25 22:34] VITALS: BP 129/54; PULSE 63; RESP 18; TEMP 37.2; O2SAT 97; BMI 27.3
--- NOTE | 2020-04-25 22:42 | RAD_ITS ---
STUDY: X-RAY - PELVIS AND LEFT HIP REASON FOR EXAM: Male, 79 years old. Status post fall. Left hip pain. TECHNIQUE: 3 views of the pelvis and hip. COMPARISON: None. FINDINGS: There is a non-specific bowel gas pattern. Normal visualized soft tissue structures. There is an intratrochanteric slightly displaced fracture of the left hip. There is no evidence of dislocation. There is right hip arthroplasty. There are vascular calcifications. RAD/HIP, UNI W/ Pelvis 2-3 Views IMPRESSION: Intertrochanteric fracture of the left hip Electronically Signed: Collins Wilkinson MD at 23:42 EDT Tel , Service support ,
--- NOTE | 2020-04-25 22:47 | EKG12_ITS ---
Test Reason : FALL Blood Pressure : / mmHG Vent. Rate : 060 BPM Atrial Rate : 060 BPM P-R Int : 214 ms QRS Dur : 112 ms QT Int : 482 ms P-R-T Axes : -03 -40 085 degrees QTc Int : 482 ms Sinus rhythm with 1st degree A-V block Left axis deviation Incomplete left bundle branch block Left ventricular hypertrophy with repolarization abnormality Prolonged QT Abnormal ECG Confirmed by DEBBIE BRANNON, GUERRERO ([id number]), scientific editor MANUEL CHERRY ([id number]) on 04/27/2020 1:12:45 PM Referred By: ЕКАТЕРИНА Confirmed By:GUERRERO LEWIS MD
--- NOTE | 2020-04-25 22:52 | ED.DCSUM_ITS ---
History of Present Illness Chief Complaint: Lower Extremity Injury Narrative: This patient is a 79-year-old male who presents after a fall. He states he just lost his balance and fell injuring his left hip. He denies any head injury. He complains of isolated left hip pain. He denies injury to chest abdomen back or the other extremities. Of note he is 2 weeks postop from an abdominal aortic aneurysm repair with a stent graft as well as a stent of the left popliteal artery. 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 Otherwise he has felt at baseline in the last couple of days no recent illness. No fevers cough chest pain difficulty breathing vomiting diarrhea. Past Medical History - Allergies and Home Meds Allergies/Adverse Reactions: Allergies No Known Allergies Allergy (Verified 04/07/20 18:42) Primary Care Physician: Ihsan Modi MD [Primary Care Provider] - Past Medical History: - - Hypertension, hypothyroidism Surgical History: angioplasty - Stent., - - Thoracic aortic [id number]-[id number] Status post aortic valve replacement, Right hip cemented arthroplasty. Smoking Status: Former smoker - Family History Maternal Family History: Family History (Last Reviewed 12/04/19 @ 15:03 by RICK Alcocer) Grandfather Diabetes Brother Heart disease Family History: Reports: No pertinent history Paternal Family History: Family History (Last Reviewed 12/04/19 @ 15:03 by RICK Alcocer) Grandfather Diabetes Brother Heart disease Family History: Reports: No pertinent history Review of Systems All systems negative except as indicated General: Denies: Fever Eyes: Denies: Visual changes - bilaterally ENT: Denies: Bilateral ear pain Cardiovascular: Denies: Chest pain Respiratory: Denies: Dyspnea Gastrointestinal: Denies: Abdominal pain, Vomiting, Diarrhea Musculoskeletal: Reports: Extremity Pain - Left hip pain Skin: Denies: Rash Neurological: Denies: Headache Hematologic: Reports: Easy bruising Allergy: Denies: Uticaria Physical Exam Vital Signs/Narrative: Vital Signs Temp Pulse Resp BP Pulse Ox 04/25/20 22:34 99 F 63 18 129/54 H 97 Inital Vital Signs reviewed: Yes General: Well nourished, Well developed Head: Normocephalic, - - Head normocephalic atraumatic no evidence of head trauma such as scalp lacerations abrasions hematomas Eyes: EOMI ENT: Moist mucous membranes Neck: Supple, Nontender Cardiovascular: Regular rate, Regular rhythm, - - Systolic murmur noted Respiratory: No distress, CTA bilaterally Abdomen: Soft Extremities: - - There is a surgical wound on the left thigh which is clean dry and intact the left hip is shortened and externally rotated he has brisk capillary refill distally he does have some edema of the left leg but this is also has recent surgical leg he has no tenderness at the knee and ankle patient has active full range of motion without any pain of the right lower extremity and bilateral upper extremities Skin: Normal color Neurological: Alert, Oriented x3 Psychological: Normal affect Diagnostic/Tx/Re-eval Impressions Hip/Pelvis X-Ray 04/25/20 22:42 IMPRESSION: Intertrochanteric fracture of the left hip Electronically Signed: Collins Wilkinson MD at 23:42 EDT Tel , Service support , Chest X-Ray 04/25/20 23:15 IMPRESSION: Enlargement of the cardiac silhouette. No active pulmonary disease. Electronically Signed: Collins Wilkinson MD at 23:42 EDT Tel , Service support , 04/25/20 22:42 HIP, UNI W/ Pelvis 2-3 Views [RAD] Stat 04/25/20 23:15 CXR [Chest 1 View (Portable)] [RAD] Stat Laboratory Results 04/25/20 04/25/20 04/25/20 22:58 22:58 22:58 WBC 6.8 RBC 3.01 L Hgb 8.1 L Hct 26.1 L MCV 86.7 MCH 26.9 L MCHC 31.0 L RDW Std Deviation 54.4 H RDW Coeff of Ej 17.1 H Plt Count 175 MPV 9.6 Immature Gran % (Auto) 0.900 Neut % (Auto) 70.9 H Lymph % (Auto) 15.5 L [place] % (Auto) 10.0 Eos % (Auto) 2.4 Baso % (Auto) 0.3 Absolute Neuts (auto) 4.8 Absolute Lymphs (auto) 1.05 Nucleated RBC % 0 PT 17.8 H INR 1.5 Sodium 142 Potassium 3.8 Chloride 108 H Carbon Dioxide 26.0 Anion Gap 8 BUN 42 H Creatinine 1.78 H Estim Creat Clear Calc 24.19 Est GFR (MDRD) Af Amer 48 L Est GFR (MDRD) Non-Af 39 L BUN/Creatinine Ratio 23.6 H Glucose 90 Calcium 8.0 L - Medical Decision Making Laboratory studies as above notable for anemia and renal insufficiency which appear to be near baseline. EKG shows sinus rhythm with a first-degree AV block incomplete left bundle branch block. Left hip x-ray does show an intertrochanteric hip fracture. However given that the patient is recently postoperative from an aortic repair as well as a left leg stent for popliteal aneurysm I felt he should be transferred back to that facility. I spoke to [facility] and patient was accepted by Dr. Barr of orthopedics. ED Disposition - Plan for ED Patient: Disposition: [facility] - Main Diagnosis: Fracture of left hip Referrals: Ihsan Modi MD [Primary Care Provider] -
[2020-04-25 23:06] LABS: Absolute Lymphocyte Count 1.05 X10^3/uL (0.83-4.51); Absolute Neutrophil Count 4.8 X10^3/uL (2.0-7.7); Basophil# 0.02 X10^3/uL; Basophil% 0.3 % (0-1); Eosinophil# 0.16 X10^3/uL; Eosinophils% 2.4 % (0-5); Hematocrit 26.1 % (40-54); Hemoglobin 8.1 g/dL (13.0-16.5); Lymphocyte # 1.05 X10^3/ul (4.0); Lymphocyte % 15.5 % (19-41); Mean Corpuscular Hgb 26.9 pg (27.0-32.0); Mean Corpuscular Volume 86.7 fL (80-94); Mean Platelet Vol. 9.6 fl (6.2-12.0); Monocyte# 0.68 X10^3/uL; NRBC Flagged by Analyzer 0 % (0-5); Neutrophil % 70.9 % (47-70); Platelet Count 175 K/mm3 (150-450); RBC Distribution Width CV 17.1 % (11.6-14.6); RBC Distribution Width SD 54.4 fl (35.1-43.9); Red Blood Count 3.01 M/mm3 (4.6-6.2); White Blood Count 6.8 K/mm3 (4.4-11.0)
[2020-04-25] MEDS: Ondansetron 4 MG/2 ML Vial IV (23:06)
[2020-04-25] MEDS: Morphine 4 MG/ML Syringe IV (23:06)
[2020-04-25 23:13] LABS: International Normalized Ratio 1.5; Prothrombin Time (Protime)PT. 17.8 SECONDS (11.7-14.9)
--- NOTE | 2020-04-25 23:15 | RAD_ITS ---
STUDY: X-RAY CHEST REASON FOR EXAM: Male, 79 years old. Preoperative exam. TECHNIQUE: Single AP portable view of the chest. COMPARISON: 04/03/2020. FINDINGS: There are slightly prominent markings probably chronic. No focal infiltrate is seen. There is no demonstrated pleural abnormality. Sternal cerclage wires and vascular clips are present from a prior sternotomy and coronary artery bypass graft procedure (CABG). The cardiac silhouette is moderately enlarged. Normal mediastinum and jamal. Normal visualized pulmonary arteries. There is atherosclerotic calcification of the aortic arch with tortuosity. The osseous structures are unchanged. There is no demonstrated abnormality of the visualized soft tissue structures of the upper abdomen. RAD/Chest 1 View (Portable) IMPRESSION: Enlargement of the cardiac silhouette. No active pulmonary disease. Electronically Signed: Collins Wilkinson MD at 23:42 EDT Tel , Service support ,
[2020-04-25 23:20] LABS: Anion Gap 8 (5-15); BUN 42 mg/dL (7-18); BUN/Creat Ratio 23.6 RATIO (10-20); Chloride 108 mmol/L (98-107); Creatinine, Serum 1.78 mg/dL (0.70-1.30); EST Glomerular Filtration Rate 39 mL/min (>60); Est Glom Filt Rate - Afr Amer 48 mL/min (>60); Estimated Creatinine Clearance 24.19 ml/min; Glucose 90 mg/dL (74-106); Potassium 3.8 mmol/L (3.5-5.1); Sodium Level 142 mmol/L (136-145)
[2020-04-26 00:29] VITALS: BP 121/47; PULSE 80; RESP 16; O2SAT 97
[2020-04-26] MEDS: fentaNYL 100 MCG/2 ML Ampul 50 MCG IV ×2 (00:55→05:21)
[2020-04-26 00:58] VITALS: BP 120/51; PULSE 60; RESP 16; O2SAT 94
[2020-04-26 05:22] VITALS: BP 117/54; PULSE 60; RESP 14; O2SAT 92
--- NOTE | 2020-04-26 05:58 | ED.RN ---
ATTEMPTED TO CALL REPORT, NEW RN IN WITH ANOTHER ADMISSION, SHE WILL CALL ME BACK. PHONE NUMBER [id number].
== END 2020-04-26 06:48 | disposition short-term general hospital (02) ==
PROVIDERS: Emergency Provider Emergency Medicine; PCP Family Medicine
DX: S72.002A Fracture of unspecified part of neck of left femur, initial encounter for closed fracture (principal); W19.XXXA Unspecified fall, initial encounter; Z87.891 Personal history of nicotine dependence; Z95.2 Presence of prosthetic heart valve; Z86.718 Personal history of other venous thrombosis and embolism
CPT/HCPCS: 71045; 73502; 80048; 85025; 85610; 93005; 96374; 96375; 96376; 99285; A4216; J2405

== ENCOUNTER 2020-05-02 13:20 | Inpatient (IN) | payer MEDICARE, OTHER, SELFPAY ==
[2020-05-02 13:19] VITALS: BMI 25.9
[2020-05-02 13:31] VITALS: BP 130/46; PULSE 65; RESP 15; TEMP 36.7; O2SAT 95; BMI 29.9
[2020-05-02 15:27] VITALS: O2SAT 95
[2020-05-02 15:58] VITALS: PULSE 65
[2020-05-02] MEDS: Furosemide 40 MG Tablet PO (15:58)
[2020-05-02] MEDS: hydrALAZINE 50 MG Tablet PO ×2 (15:58→22:09)
[2020-05-02 16:09] VITALS: O2SAT 96
--- NOTE | 2020-05-02 16:46 | PCM.HP.STD ---
Problem List (1) Fall Status: Acute (2) Closed left hip fracture Status: Acute (3) Aortic stenosis Status: Chronic (4) DVT (deep venous thrombosis) Status: Chronic (5) Anemia Status: Chronic (6) Chronic kidney disease Status: Chronic (7) Peripheral arterial occlusive disease Status: Chronic (8) Thoracic aortic aneurysm Status: Chronic (9) Abdominal aortic aneurysm Status: Chronic (10) BPH (benign prostatic hyperplasia) Status: Chronic (11) Urinary retention Status: Acute (12) Debility Status: Acute (13) Hyperlipidemia Status: Chronic Qualifiers: (14) Coronary artery disease Status: Chronic (15) Hypertension Status: Chronic Qualifiers: (16) COPD (chronic obstructive pulmonary disease) Status: Chronic (17) Hypothyroidism Status: Chronic (18) Atrial fibrillation Status: Chronic Qualifiers: History of Present Illness Date of Admission: 05/02/20 Chief Complaint: Here for rehabilitation, strengthening, prior to discharge home with . 04/25/2020 The patient is a 80 year old Male with below past medical history presented to [facility] with fall, left hip pain. 04/25/2020 EKG sinus rhythm with first degree AV block, left axis deviation, incomplete left bundle branch block, left ventricular hypertrophy with repolarization abnormality, prolonged QT. 04/25/2020 X-ray pelvis, left hip showed left hip fracture. 04/25/2020 Chest X-ray showed cardiomegaly. 2 weeks status post AAA endovascular graft repair, left popliteal stent. Labs show anemia, renal insufficiency. Left hip fracture, high risk due to recent surgery. Transfer to [facility]. 04/26/2020 Admit to [facility]. Hold Plavix, Hold coumadin to prepare for surgery. Cleared for surgery by Medicine, Vascular Surgery. 04/26/2020 Lasix 80MG IV twice daily. Lower Metoprolol to 12.5MG twice daily for bradycardia. Heparin drip for atrial fibrillation. 04/27/2020 Dr. Mcgraw performed left hip intramedullary nail fixation. 04/30/2020 Resume Aspirin, Plavix. PT recommending [facility]. 05/02/2020 Admit to TCU with debility, here for rehabilitation, strengthening, prior to discharge home with . Past Medical History Past Medical History (Chronic Problems): Chronic Problems (Last Reviewed 12/04/19 @ 15:03 by RICK Alcocer) Aortic stenosis (Chronic) DVT (deep venous thrombosis) (Chronic) Anemia (Chronic) Chronic kidney disease (Chronic) Peripheral arterial occlusive disease (Chronic) Thoracic aortic aneurysm (Chronic) Abdominal aortic aneurysm (Chronic) BPH (benign prostatic hyperplasia) (Chronic) Hyperlipidemia (Chronic) Coronary artery disease (Chronic) Hypertension (Chronic) Chronic diastolic heart failure (Chronic) Mixed hyperlipidemia (Chronic) Chronic heart failure with preserved ejection fraction (Chronic) History of aortic valve repair (Chronic ~10/28/07) Hx of repair of ascending aorta (Chronic ~10/28/07) 32mm Hemishield graft 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) Essential hypertension (Chronic) Presence of stent in coronary artery (Chronic ~05/24/06) PCI/ILANA of the of 2nd Diagonal instent restenosis 05/24/06 Atherosclerotic heart disease of [place] coronary artery without angina pectoris (Chronic) COPD (chronic obstructive pulmonary disease) (Chronic) Tobacco abuse (Chronic) Tobacco dependence in remission (Chronic) Pulmonary embolism (Chronic) Hypothyroidism (Chronic) Atrial fibrillation (Chronic) Medical History: Medical History (Last Reviewed 12/04/19 @ 15:03 by RICK Alcocer) Chronic heart failure with preserved ejection fraction (Chronic) I50.32 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) Onset Date: ~10/28/07 I71.01 Essential hypertension (Chronic) I10 Atherosclerotic heart disease of [place] coronary artery without angina pectoris (Chronic) I25.10 Tobacco dependence in remission (Chronic) F17.201 Pulmonary embolism (Chronic) I26.99 Hypothyroidism (Chronic) E03.9 Atrial fibrillation (Chronic) 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) I71.3 Squamous cell carcinoma of skin (Inactive) C44.92 Allergies No Known Allergies Allergy (Verified 04/07/20 18:42) Home Medications: Ambulatory Orders Medication Instructions Recorded nitroglycerin 0.4 mg sublingual 0.4 mg SUBLINGUAL Q5-15M PRN 04/23/18 tablet amiodarone 200 mg tablet 200 mg PO DAILY #30 tab 08/26/19 Warfarin [Coumadin] 2 mg PO DAILY@1700 10/14/19 levothyroxine 100 mcg tablet 150 mcg PO DAILY tab 12/04/19 Furosemide 40 mg PO BID 04/07/20 Potassium Chloride 40 meq PO DAILY 04/07/20 Amlodipine [Norvasc] 10 mg PO DAILY 05/02/20 Aspirin [Aspirin, Baby] 81 mg PO DAILY@0800 05/02/20 Carvedilol 12.5 mg PO BID 05/02/20 Clonidine HCl 0.5 tab PO Q12H 05/02/20 Clopidogrel Bisulfate [Plavix] 75 mg PO DAILY 05/02/20 Docusate Sodium 100 mg PO BID 05/02/20 Esomeprazole Mag Trihydrate 40 mg PO DAILY 05/02/20 [Nexium] Furosemide [Lasix] 40 mg PO DAILY@1400 05/02/20 Furosemide [Lasix] 80 mg PO DAILY@0600 05/02/20 Hydralazine HCl 50 mg PO Q8H 05/02/20 Oxycodone [Oxyir] 5 - 10 mg PO Q4H PRN PRN 05/02/20 Rosuvastatin Calcium [Crestor] 10 mg PO QHS 05/02/20 Tamsulosin HCl [Flomax] 0.4 mg PO DAILY 05/02/20 Surgical History: Surgical History (Last Reviewed 12/04/19 @ 15:03 by RICK Alcocer) History of aortic valve repair (Chronic) Onset Date: ~10/28/07 Z98.890, Z86.79 Hx of repair of ascending aorta (Chronic) Onset Date: ~10/28/07 Z98.890 32mm Hem[place]ield graft Presence of stent in coronary artery (Chronic) Onset Date: ~05/24/06 Z95.5 PCI/ILANA of the of 2nd Diagonal instent restenosis 05/24/06 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 Psychiatric History: No pertinent psych hx Lives: Spouse/ Significant Other Smoking Status: Former smoker Tobacco Use: Non-smoker Alcohol: None Drugs: None - *Family History Maternal Family History: Family History (Last Reviewed 12/04/19 @ 15:03 by RICK Alcocer) Grandfather Diabetes Brother Heart disease History Items: Cancer - Bone. Paternal Family History: Family History (Last Reviewed 12/04/19 @ 15:03 by RICK Alcocer) Grandfather Diabetes Brother Heart disease History Items: - - Liver cirrhosis. Offspring Family History: Family History (Last Reviewed 12/04/19 @ 15:03 by RICK Alcocer) Grandfather Diabetes Brother Heart disease History Items: Hypertension, Seizures, - - Intellectual Delay. Review of Systems Constitutional: Denies: Chills, Fever, Weight Change HEENT: Denies: Head Aches, Sinus Congestion, Sinus Drainage Cardiovascular: Denies: Chest Pain, Palpitations Respiratory: Denies: Cough, Shortness of breath at rest, Sputum production Gastrointestinal: Denies: Abdominal Pain, Nausea, Vomiting Genitourinary: Denies: Dysuria Musculoskeletal: Denies: Joint Pain, Joint Tenderness Skin: Denies: Rash, Wounds Neurological: Denies: Numbness, Tingling, Focal weakness Psychiatric: Denies: Anxiety, Depression, Homicidal Ideations, Suicidal Ideations Hematologic/ Lymphatic: Denies: Easy Bruising, Easy Bleeding VTE Information - Inpt Only VTE Present on Admission: No VTE Mechan Device Prophylaxis: Knee High MARIUM Hose VTE Pharm Prophylaxis ordered?: No Reason prophylaxis not ordered:: Treatment Not Indicated Patient Problems: Active and Suspected Problems (Last Reviewed 12/04/19 @ 15:03 by RICK Alcocer) Fall (Acute) Closed left hip fracture (Acute) Urinary retention (Acute) - Physical Exam Vitals/I&O's: Vital Signs Temp Pulse Resp BP Pulse Ox 98.1 F 65 15 130/46 H 96 05/02/20 13:31 05/02/20 15:58 05/02/20 13:31 05/02/20 13:31 05/02/20 16:09 Oxygen Flow Rate (L/min) 3 Oxygen Delivery Method Nasal Cannula Weight: 69.4 kg Body Mass Index (BMI) 29.9 General: Alert, Oriented x3, Cooperative HEENT: Atraumatic, PERRLA, EOMI, Normocephalic Neck: Supple, No JVD, Negative Carotid Bruits Lungs: Clear to auscultation, Normal air movement Cardiovascular: Regular rate, Murmur - 2/6 systolic ejection murmur ULSB. Abdomen: Bowel Sounds Present, Soft, Non Tender Extremities: No edema, Capillary Refill Less than 3 Seconds Skin: No rashes, No breakdown Musculoskeletal: No Tenderness to Palpation of Joints or Extremities Neurological: Cranial nerves II-XII grossly intact Psych/Mental Status: Normal Affect, Appropriate Current Medications Amiodarone HCl (Cordarone) 200 mg PO DAILY [facility] Amlodipine Besylate (Norvasc) 10 mg PO DAILY [facility] Aspirin (Aspirin, Baby) 81 mg PO DAILY@0800 [facility] Stop: 05/13/20 08:01 Atorvastatin Calcium (Lipitor) 20 mg PO QHS [facility] Carvedilol (Coreg) 12.5 mg PO BID [facility] Clonidine (Catapres) 0.05 mg PO Q12H [facility] Clopidogrel Bisulfate (Plavix) 75 mg PO DAILY [facility] Docusate Sodium (Colace) 100 mg PO BID [facility] Furosemide (Lasix) 40 mg PO 0600,1400 [facility] Furosemide (Lasix) 80 mg PO DAILY@0600 [facility] Stop: 05/05/20 06:01 Furosemide (Lasix) 40 mg PO DAILY@1400 [facility] Stop: 05/05/20 14:01 Last Admin: 05/02/20 15:58 Dose: 40 mg Documented by: Hydralazine HCl (Apresoline) 50 mg PO Q8H [facility] Last Admin: 05/02/20 15:58 Dose: 50 mg Documented by: Levothyroxine Sodium (Synthroid) 150 mcg PO DAILY@0600 [facility] Nitroglycerin (Nitrostat) 0.4 mg SUBLINGUAL Q5M PRN PRN Reason: chest pain (score 1-10/10) Oxycodone HCl (Oxyir) 5 - 10 mg PO Q4H PRN PRN PRN Reason: Pain Score 6-10/10 Pantoprazole Sodium (Protonix) 40 mg PO DAILY [facility] Tamsulosin HCl (Flomax) 0.4 mg PO DAILY@1730 [facility] Tuberculin PPD (Tubersol, Aplisol, Ppd) 5 tu ID X1 ONE Stop: 05/03/20 10:01 Tuberculin PPD (Tubersol, Aplisol, Ppd) 5 tu ID X1 ONE Stop: 05/10/20 10:01 Warfarin Sodium (Jantoven) 2 mg PO DAILY@1700 [facility] Assessment/Plan All Active Problems (Last Reviewed 12/04/19 @ 15:03 by RICK Alcocer) Fall (Acute) Closed left hip fracture (Acute) Urinary retention (Acute) Hip fracture (Acute) Debility (Acute) Closed right hip fracture (Acute) Thoracic aortic aneurysm, ruptured (Resolved) 80 year old male with below past medical history significant for recent AAA endovascular graft repair, left popliteal stent, hospitalized for left hip fracture, underwent left hip intramedullary nail 04/27/[address] Mcgraw, admitted to TCU with debility, here for rehabilitation, strengthening, prior to discharge home with . Debility - PT/OT. Pain - Tylenol 1000MG Q6H PRN pain (1-5), Oxycodone 5MG Q4H PRN pain (6-10). Bowel - Miralax 17GM daily, Senna/colace 2 tablets twice daily, Dulcolax 10MG PA daily PRN. Adult immunization - Administer Prevnar 13, Pneumovax 23, Fluzone as appropriate. DVT prophylaxis - Not necessary, already on warfarin. Atrial Fibrillation - Coreg 12.5MG twice daily, Amiodarone 200MG daily, Warfarin 2MG daily, follow INR. Hypertension - Coreg 12.5MG BID, Amlodipine 10MG daily, Hydralazine 50MG Q8H, Clonidine 0.05MG PO Q12H. Coronary Artery Disease - Coreg 12.5MG twice daily, Plavix 75MG daily, Aspirin 81MG daily thru 05/13/2020, NTG 0.4MG Q5M PRN. PAOD - Aspirin 81MG daily thru 05/13/2020, Plavix 75MG daily, Warfarin 2MG daily, follow INR. Acute on chronic diastolic congestive heart failure - Coreg 12.5MG twice daily, Hydralazine 50MG Q8H, Lasix 120MG, 80MG thru 05/05/2020, then 40MG twice daily. Hypothyroidism - Levothyroxine 150MCG daily. GERD - Pantoprazole 40MG daily. Hypokalemia - K-Dur 40MEQ daily. BPH - Tamsulosin 0.4MG daily.
[2020-05-02 17:18] LABS: International Normalized Ratio 3.2
[2020-05-02] MEDS: Warfarin 1 MG, Warfarin 0.5 MG 1.5 MG PO (17:56)
[2020-05-02] MEDS: Tamsulosin HCl 0.4 MG Capsule PO (17:56)
[2020-05-02] MEDS: cloNIDine HCl 0.1 MG Tablet 0.05 MG PO (17:56)
[2020-05-02] MEDS: Carvedilol 12.5 MG Tablet PO (17:57)
[2020-05-02 21:34] VITALS: PULSE 71; RESP 16
[2020-05-02 22:09] VITALS: BP 128/63; PULSE 71; RESP 18; TEMP 36.5
[2020-05-02] MEDS: Acetaminophen 500 MG Tablet 1000 MG PO (22:09)
[2020-05-02] MEDS: Atorvastatin Calcium 20 MG Tablet PO (22:09)
[2020-05-03] VITALS (8 sets, daily range): BP systolic 102–144; BP diastolic 55–57; PULSE 66–77; RESP 16–20; TEMP 36–36.2; O2SAT 95–97
[2020-05-03 01:48] LABS: Probe Check PASS; Specimen Processing Control PASS
[2020-05-03] MEDS: Clopidogrel Bisulfate 75 MG Tablet PO (05:44)
[2020-05-03] MEDS: Furosemide 80 MG Tablet PO (05:44)
[2020-05-03] MEDS: hydrALAZINE 50 MG Tablet PO ×3 (05:44→22:32)
[2020-05-03] MEDS: amLODIPine 10 MG Tablet PO (05:44)
[2020-05-03] MEDS: Carvedilol 12.5 MG Tablet PO ×2 (05:44→17:29)
[2020-05-03] MEDS: Levothyroxine 150 MCG Tablet PO (05:44)
[2020-05-03] MEDS: Pantoprazole Sodium 40 MG Tablet PO (05:44)
[2020-05-03] MEDS: cloNIDine HCl 0.1 MG Tablet 0.05 MG PO ×2 (05:44→17:29)
[2020-05-03] MEDS: Amiodarone 200 MG Tablet PO (05:44)
[2020-05-03] MEDS: Menthol/Lanolin/Calamine/Znox 113 GM Tube 1 APPLIC TOPICAL ×2 (05:46→17:22)
[2020-05-03 06:47] LABS: Absolute Lymphocyte Count 1.06 X10^3/uL (0.83-4.51); Absolute Neutrophil Count 4.9 X10^3/uL (2.0-7.7); Basophil# 0.02 X10^3/uL; Basophil% 0.3 % (0-1); Eosinophil# 0.14 X10^3/uL; Hematocrit 30.1 % (40-54); Hemoglobin 9.5 g/dL (13.0-16.5); Lymphocyte # 1.06 X10^3/ul (4.0); Lymphocyte % 15.5 % (19-41); Mean Corp Hgb Conc 31.6 g/dL (32-36); Mean Corpuscular Volume 85.5 fL (80-94); Mean Platelet Vol. 9.4 fl (6.2-12.0); Monocyte# 0.67 X10^3/uL; Monocyte% 9.8 % (0-10); NRBC Flagged by Analyzer 0 % (0-5); Neutrophil # 4.88 X10^3/uL (2.7-7.7); Neutrophil % 71.1 % (47-70); Platelet Count 309 K/mm3 (150-450); RBC Distribution Width CV 16.3 % (11.6-14.6); RBC Distribution Width SD 50.8 fl (35.1-43.9); Red Blood Count 3.52 M/mm3 (4.6-6.2); White Blood Count 6.9 K/mm3 (4.4-11.0)
[2020-05-03 06:54] LABS: Anion Gap 5 (5-15); BUN 26 mg/dL (7-18); Chloride 108 mmol/L (98-107); Creatinine, Serum 1.13 mg/dL (0.70-1.30); EST Glomerular Filtration Rate 67 mL/min (>60); Est Glom Filt Rate - Afr Amer 81 mL/min (>60); Estimated Creatinine Clearance 37.49 ml/min; Glucose 95 mg/dL (74-106); Potassium 3.7 mmol/L (3.5-5.1); Sodium Level 138 mmol/L (136-145)
[2020-05-03 06:56] LABS: International Normalized Ratio 3.4
[2020-05-03] MEDS: Aspirin 81 MG TAB.CHEW PO (09:11)
[2020-05-03] MEDS: Tuberculin,Purif.prot.deriv. 50 TU/ML Vial 5 ML ID (10:45)
[2020-05-03] MEDS: oxyCODONE 5 MG Tablet PO ×2 (11:16→15:26)
--- NOTE | 2020-05-03 11:22 | NURSING ---
pT STATED HE WOULD UP DATE HIS .
[2020-05-03] MEDS: Furosemide 40 MG Tablet PO (14:28)
--- NOTE | 2020-05-03 15:59 | NURSING ---
moises to left hip. proxamol-10, 9-distal.
[2020-05-03] MEDS: Tamsulosin HCl 0.4 MG Capsule PO (17:22)
[2020-05-03] MEDS: Atorvastatin Calcium 20 MG Tablet PO (22:32)
[2020-05-04 04:00] VITALS: BP 121/53; PULSE 69; RESP 16; TEMP 36.6; O2SAT 93
[2020-05-04 05:52] LABS: International Normalized Ratio 3.3; Prothrombin Time (Protime)PT. 32.9 SECONDS (11.7-14.9)
[2020-05-04] MEDS: cloNIDine HCl 0.1 MG Tablet 0.05 MG PO ×2 (06:09→17:07)
[2020-05-04] MEDS: Clopidogrel Bisulfate 75 MG Tablet PO (06:09)
[2020-05-04] MEDS: Pantoprazole Sodium 40 MG Tablet PO (06:09)
[2020-05-04] MEDS: Levothyroxine 150 MCG Tablet PO (06:10)
[2020-05-04] MEDS: Amiodarone 200 MG Tablet PO (06:10)
[2020-05-04] MEDS: Carvedilol 12.5 MG Tablet PO ×2 (06:10→17:08)
[2020-05-04] MEDS: amLODIPine 10 MG Tablet PO (06:10)
[2020-05-04 06:11] VITALS: BP 121/53; PULSE 69
[2020-05-04] MEDS: Menthol/Lanolin/Calamine/Znox 113 GM Tube 1 APPLIC TOPICAL ×2 (06:11→17:09)
[2020-05-04] MEDS: hydrALAZINE 50 MG Tablet PO ×2 (06:11→20:14)
[2020-05-04] MEDS: Furosemide 80 MG Tablet PO (06:13)
[2020-05-04 07:23] VITALS: O2SAT 91
[2020-05-04] MEDS: Aspirin 81 MG TAB.CHEW PO (08:51)
--- NOTE | 2020-05-04 10:57 | PCM.PN.RX ---
<Jose AlejandroivanLisa M - Last Filed: 05/04/20 10:57> Progress Note - Pharmacy Subjective: TCU ADMISSION Objective: Allergies No Known Allergies Allergy (Verified 04/07/20 18:42) Current Medications Generic Name Dose Route Start Last Admin Trade Name Freq PRN Reason Stop Dose Admin Acetaminophen 1,000 mg 05/02/20 17:10 05/02/20 22:09 Tylenol PO 1,000 mg Q6H PRN Administration Pain Score 1-5/10 Amiodarone HCl 200 mg 05/03/20 06:00 05/04/20 06:10 Cordarone PO 200 mg DAILY [facility] Administration Amlodipine Besylate 10 mg 05/03/20 06:00 05/04/20 06:10 Norvasc PO 10 mg DAILY [facility] Administration Aspirin 81 mg 05/03/20 08:00 05/04/20 08:51 Aspirin, Baby PO 05/13/20 08:01 81 mg DAILY@0800 [facility] Administration Atorvastatin Calcium 20 mg 05/02/20 22:00 05/03/20 22:32 Lipitor PO 20 mg QHS [facility] Administration Bisacodyl 10 mg 05/02/20 17:10 Dulcolax RECTAL DAILY PRN Constipation Calamine/Phenol 1 applic 05/03/20 06:00 05/04/20 06:11 Calmoseptine Ointment TOPICAL 1 applicatio BID [facility] Administration Protocol Carvedilol 12.5 mg 05/02/20 18:00 05/04/20 06:10 Coreg PO 12.5 mg BID [facility] Administration Clonidine 0.05 mg 05/02/20 18:00 05/04/20 06:09 Catapres PO 0.05 mg Q12H [facility] Administration Clopidogrel Bisulfate 75 mg 05/03/20 06:00 05/04/20 06:09 Plavix PO 75 mg DAILY [facility] Administration Furosemide 40 mg 05/06/20 06:00 Lasix PO 0600,1400 [facility] Furosemide 80 mg 05/03/20 06:00 05/04/20 06:13 Lasix PO 05/05/20 06:01 80 mg DAILY@0600 [facility] Administration Furosemide 40 mg 05/02/20 14:00 05/03/20 14:28 Lasix PO 05/05/20 14:01 40 mg DAILY@1400 [facility] Administration Hydralazine HCl 50 mg 05/02/20 14:00 05/04/20 06:11 Apresoline PO 50 mg Q8H [facility] Administration Levothyroxine Sodium 150 mcg 05/03/20 06:00 05/04/20 06:10 Synthroid PO 150 mcg DAILY@0600 [facility] Administration Multi-Ingredient Cream 1 applic 05/03/20 06:00 05/04/20 06:12 Eucerin TOPICAL 1 applicatio BID [facility] Administration Protocol Nitroglycerin 0.4 mg 05/02/20 14:08 Nitrostat SUBLINGUAL Q5M PRN chest pain (score 1-10/10) Oxycodone HCl 5 mg 05/02/20 17:11 05/03/20 15:26 Oxyir PO 5 mg Q4H PRN PRN Administration Pain Score 6-10/10 Pantoprazole Sodium 40 mg 05/03/20 06:00 05/04/20 06:09 Protonix PO 40 mg DAILY [facility] Administration Polyethylene Glycol 17 gm 05/03/20 06:00 05/04/20 06:13 Miralax PO Not Given DAILY [facility] Potassium Chloride 40 meq 05/03/20 08:00 05/04/20 08:51 K-Dur PO 40 meq DAILYCM [facility] Administration Senna/Docusate Sodium 2 tablet 05/02/20 18:00 05/04/20 06:13 Senokot-S, Ayala-Colace PO Not Given BID [facility] Tamsulosin HCl 0.4 mg 05/02/20 17:30 05/03/20 17:22 Flomax PO 0.4 mg DAILY@1730 [facility] Administration Tuberculin PPD 5 tu 05/10/20 10:00 Tubersol, Aplisol, Ppd ID 05/10/20 10:01 X1 ONE Warfarin Sodium 1 mg 05/03/20 17:00 05/03/20 17:22 Jantoven PO 1 mg DAILY@1700 [facility] Administration Problem List (Last Reviewed 12/04/19 @ 15:03 by RICK Alcocer) Fall (Acute) Closed left hip fracture (Acute) Aortic stenosis (Chronic) DVT (deep venous thrombosis) (Chronic) Anemia (Chronic) Chronic kidney disease (Chronic) Peripheral arterial occlusive disease (Chronic) Thoracic aortic aneurysm (Chronic) Abdominal aortic aneurysm (Chronic) BPH (benign prostatic hyperplasia) (Chronic) Urinary retention (Acute) Vital Signs Temp Pulse Resp BP Pulse Ox 97.8 F 69 16 121/53 H 91 05/04/20 04:00 05/04/20 06:11 05/04/20 04:00 05/04/20 06:11 05/04/20 07:23 Oxygen Flow Rate (L/min) 2 Oxygen Delivery Method Nasal Cannula Weight: 69.4 kg Body Mass Index (BMI) 29.9 Sodium 138 mmol/L (136-145) 05/03/20 06:05 Potassium 3.7 mmol/L (3.5-5.1) 05/03/20 06:05 Chloride 108 mmol/L (98-107) H 05/03/20 06:05 Carbon Dioxide 25.0 mmol/L (21.0-32.0) 05/03/20 06:05 Anion Gap 5 (5-15) 05/03/20 06:05 BUN 26 mg/dL (7-18) H 05/03/20 06:05 Creatinine 1.13 mg/dL (0.70-1.30) 05/03/20 06:05 Est GFR (MDRD) Af Amer 81 mL/min (>60) 05/03/20 06:05 Est GFR (MDRD) Non-Af 67 mL/min (>60) 05/03/20 06:05 BUN/Creatinine Ratio 23.0 RATIO (10-20) H 05/03/20 06:05 Glucose 95 mg/dL (74-106) 05/03/20 06:05 Assessment/Plan: 1. Pain: Tylenol 1000mg PO Q6h PRN Pain 1-5/10, Oxycodone 5mg PO Q4h PRN pain 6-10/10. Please continue to monitor for increased/decreased pain, PRN medication usage. *2. Atrial Fibrillation: Amiodarone 200mg PO Daily, Lipitor 20mg PO QHS, Warfarin 1mg PO daily, Coreg 12.5mg PO BID. Please continue to monitor BP, pulse, INR (last 05/04 = 3.3),S/S bleeding/bruising. Please consider holding Coumadin dose, as INR > 3 (goal INR for afib typically 2-3), thanks. 3. HTN/CAD/CHF: Coreg 12.5mg PO BID, Amlodipine 10mg PO Daily, Aspirin 81mg PO Daily, Clonidine 0.05mg PO BID, Lasix 120mg daily thru 05/05 then 40mg PO BID thereafter, Hydralazine 50mg PO TID, Nitrostat PRN, K-Dur 40mEq PO daily. Please continue to monitor BP, Pulse, fluid status, electrolytes (last K= 3.7 on 05/03). 4. PAOD: Aspirin 81mg PO Daily, Plavix 75mg PO Daily, Warfarin 1mg PO Daily. Please continue to monitor for S/S bleeding/bruising. Please see rec on #2 regarding INR, thanks. 5. Hypothyroid: Synthroid 150mcg PO Daily. Please continue to monitor for S/S hypothyroid, TSH panel as clinically indicated. 6. GERD: Protonix 40mg PO Daily. Please continue to monitor for worsening GERD symptoms. 7. BPH: Tamsulosin 0.4mg PO daily. Please continue to monitor for improvement in BPH symptoms, medication effectiveness. Psychotropic Medications: None Unnecessary Medications: None Bowel Regimen: *Miralax 17g PO daily, Senna/Docusate 2 tab PO BID, Dulcolax 10mg Rectal daily PRN. Please continue to monitor for increased/decreased bowel movement. Could also consider changing all medication to PRN if clinically indicated, the patient has refused all scheduled medications for constipation thus far. Date of Note:: 05/04/20 - Provider Comments Provider responsibility: Provider responsible to enter orders to implement recommendations <Aidan Santos Chi - Last Filed: 05/04/20 13:12> Progress Note - Pharmacy Subjective: [] Objective: Allergies No Known Allergies Allergy (Verified 04/07/20 18:42) Current Medications Generic Name Dose Route Start Last Admin Trade Name Freq PRN Reason Stop Dose Admin Acetaminophen 1,000 mg 05/02/20 17:10 05/02/20 22:09 Tylenol PO 1,000 mg Q6H PRN Administration Pain Score 1-5/10 Amiodarone HCl 200 mg 05/03/20 06:00 05/04/20 06:10 Cordarone PO 200 mg DAILY [facility] Administration Amlodipine Besylate 10 mg 05/03/20 06:00 05/04/20 06:10 Norvasc PO 10 mg DAILY [facility] Administration Aspirin 81 mg 05/03/20 08:00 05/04/20 08:51 Aspirin, Baby PO 05/13/20 08:01 81 mg DAILY@0800 [facility] Administration Atorvastatin Calcium 20 mg 05/02/20 22:00 05/03/20 22:32 Lipitor PO 20 mg QHS [facility] Administration Bisacodyl 10 mg 05/02/20 17:10 Dulcolax RECTAL DAILY PRN Constipation Calamine/Phenol 1 applic 05/03/20 06:00 05/04/20 06:11 Calmoseptine Ointment TOPICAL 1 applicatio BID [facility] Administration Protocol Carvedilol 12.5 mg 05/02/20 18:00 05/04/20 06:10 Coreg PO 12.5 mg BID [facility] Administration Clonidine 0.05 mg 05/02/20 18:00 05/04/20 06:09 Catapres PO 0.05 mg Q12H [facility] Administration Clopidogrel Bisulfate 75 mg 05/03/20 06:00 05/04/20 06:09 Plavix PO 75 mg DAILY [facility] Administration Furosemide 40 mg 05/06/20 06:00 Lasix PO 0600,1400 [facility] Furosemide 80 mg 05/03/20 06:00 05/04/20 06:13 Lasix PO 05/05/20 06:01 80 mg DAILY@0600 [facility] Administration Furosemide 40 mg 05/02/20 14:00 05/03/20 14:28 Lasix PO 05/05/20 14:01 40 mg DAILY@1400 [facility] Administration Hydralazine HCl 50 mg 05/02/20 14:00 05/04/20 06:11 Apresoline PO 50 mg Q8H [facility] Administration Levothyroxine Sodium 150 mcg 05/03/20 06:00 05/04/20 06:10 Synthroid PO 150 mcg DAILY@0600 [facility] Administration Multi-Ingredient Cream 1 applic 05/03/20 06:00 05/04/20 06:12 Eucerin TOPICAL 1 applicatio BID [facility] Administration Protocol Nitroglycerin 0.4 mg 05/02/20 14:08 Nitrostat SUBLINGUAL Q5M PRN chest pain (score 1-10/10) Oxycodone HCl 5 mg 05/02/20 17:11 05/04/20 11:21 Oxyir PO 5 mg Q4H PRN PRN Administration Pain Score 6-10/10 Pantoprazole Sodium 40 mg 05/03/20 06:00 05/04/20 06:09 Protonix PO 40 mg DAILY [facility] Administration Polyethylene Glycol 17 gm 05/03/20 06:00 05/04/20 06:13 Miralax PO Not Given DAILY [facility] Potassium Chloride 40 meq 05/03/20 08:00 05/04/20 08:51 K-Dur PO 40 meq DAILYCM [facility] Administration Senna/Docusate Sodium 2 tablet 05/02/20 18:00 05/04/20 06:13 Senokot-S, Ayala-Colace PO Not Given BID [facility] Tamsulosin HCl 0.4 mg 05/02/20 17:30 05/03/20 17:22 Flomax PO 0.4 mg DAILY@1730 [facility] Administration Tuberculin PPD 5 tu 05/10/20 10:00 Tubersol, Aplisol, Ppd ID 05/10/20 10:01 X1 ONE Warfarin Sodium 1 mg 05/03/20 17:00 05/03/20 17:22 Jantoven PO 1 mg DAILY@1700 [facility] Administration Problem List (Last Reviewed 12/04/19 @ 15:03 by RICK Alcocer) Fall (Acute) Closed left hip fracture (Acute) Aortic stenosis (Chronic) DVT (deep venous thrombosis) (Chronic) Anemia (Chronic) Chronic kidney disease (Chronic) Peripheral arterial occlusive disease (Chronic) Thoracic aortic aneurysm (Chronic) Abdominal aortic aneurysm (Chronic) BPH (benign prostatic hyperplasia) (Chronic) Urinary retention (Acute) Vital Signs Temp Pulse Resp BP Pulse Ox 97.8 F 69 16 121/53 H 91 05/04/20 04:00 05/04/20 06:11 05/04/20 04:00 05/04/20 06:11 05/04/20 07:23 Oxygen Flow Rate (L/min) 2 Oxygen Delivery Method Nasal Cannula Weight: 69.4 kg Body Mass Index (BMI) 29.9 Sodium 138 mmol/L (136-145) 05/03/20 06:05 Potassium 3.7 mmol/L (3.5-5.1) 05/03/20 06:05 Chloride 108 mmol/L (98-107) H 05/03/20 06:05 Carbon Dioxide 25.0 mmol/L (21.0-32.0) 05/03/20 06:05 Anion Gap 5 (5-15) 05/03/20 06:05 BUN 26 mg/dL (7-18) H 05/03/20 06:05 Creatinine 1.13 mg/dL (0.70-1.30) 05/03/20 06:05 Est GFR (MDRD) Af Amer 81 mL/min (>60) 05/03/20 06:05 Est GFR (MDRD) Non-Af 67 mL/min (>60) 05/03/20 06:05 BUN/Creatinine Ratio 23.0 RATIO (10-20) H 05/03/20 06:05 Glucose 95 mg/dL (74-106) 05/03/20 06:05 Assessment/Plan: Psychotropic Medications: Unnecessary Medications: Bowel Regimen: - Provider Comments Provider responsibility: Provider responsible to enter orders to implement recommendations Provider Comments to Recommendations by Pharmacy: Agree
[2020-05-04] MEDS: oxyCODONE 5 MG Tablet PO (11:21)
--- NOTE | 2020-05-04 14:00 | PT ---
Family Communication Spoke with pt's updated her on pt's level of assist. Pt did well with therapy today. He is CGA for sit to stands and transfers with FWW and CGA to ambulate 50 ft with FWW. Pt also now has polar care to assist with decreasing pain in L hip. Pt's upset and tearful she cannot see pt. She stated she has not been able to see him for 3 weeks since he has been in [place] prior to coming to [facility]CU. Informed pt's that pt is allowed visitors at a scheduled time and outdoors once he is out of his 14 day quarantine. pt's thankful for update.
--- NOTE | 2020-05-04 14:08 | CASEMGMT ---
Social Work Discussed code status with pt. Pt requesting DNR-CCA. Nursing notified. MOLST form completed and placed in chart. Stacia Fraga MSW FULL TIME STAFF INTERPRETER
[2020-05-04 14:09] VITALS: BP 97/41; PULSE 73; RESP 18; TEMP 36.1; O2SAT 92
[2020-05-04] MEDS: Furosemide 40 MG Tablet PO (14:22)
[2020-05-04] MEDS: Tamsulosin HCl 0.4 MG Capsule PO (17:07)
[2020-05-04] MEDS: Senna/Docusate Sodium 1 Tablet 2 TABLET PO (17:08)
[2020-05-04 17:12] VITALS: BP 146/59; PULSE 71
[2020-05-04 20:14] VITALS: BP 128/58; PULSE 68
[2020-05-04] MEDS: Atorvastatin Calcium 20 MG Tablet PO (20:14)
[2020-05-05] VITALS (7 sets, daily range): BP systolic 93–116; BP diastolic 41–49; PULSE 63–67; RESP 16–18; TEMP 36.4–36.8; O2SAT 90–95
[2020-05-05] MEDS: Menthol/Lanolin/Calamine/Znox 113 GM Tube 1 APPLIC TOPICAL ×2 (05:22→14:28)
[2020-05-05] MEDS: amLODIPine 10 MG Tablet PO (05:23)
[2020-05-05] MEDS: Furosemide 80 MG Tablet PO (05:23)
[2020-05-05] MEDS: Clopidogrel Bisulfate 75 MG Tablet PO (05:23)
[2020-05-05] MEDS: Pantoprazole Sodium 40 MG Tablet PO (05:23)
[2020-05-05] MEDS: hydrALAZINE 50 MG Tablet PO ×3 (05:23→21:26)
[2020-05-05] MEDS: cloNIDine HCl 0.1 MG Tablet 0.05 MG PO ×2 (05:23→16:52)
[2020-05-05] MEDS: Senna/Docusate Sodium 1 Tablet 2 TABLET PO (05:23)
[2020-05-05] MEDS: Levothyroxine 150 MCG Tablet PO (05:24)
[2020-05-05] MEDS: Amiodarone 200 MG Tablet PO (05:24)
[2020-05-05] MEDS: Carvedilol 12.5 MG Tablet PO ×2 (05:24→16:53)
[2020-05-05] MEDS: Aspirin 81 MG TAB.CHEW PO (09:10)
[2020-05-05] MEDS: oxyCODONE 5 MG Tablet PO (11:02)
[2020-05-05] MEDS: Furosemide 40 MG Tablet PO (14:30)
[2020-05-05] MEDS: Acetaminophen 500 MG Tablet 1000 MG PO (14:33)
--- NOTE | 2020-05-05 15:12 | NURSING ---
Unable to reach for daily update.
[2020-05-05] MEDS: Tamsulosin HCl 0.4 MG Capsule PO (16:52)
[2020-05-05] MEDS: Atorvastatin Calcium 20 MG Tablet PO (21:26)
[2020-05-06] VITALS (7 sets, daily range): BP systolic 107–123; BP diastolic 46–58; PULSE 64–69; RESP 16; TEMP 36.6–36.8; O2SAT 92–96
[2020-05-06] MEDS: Carvedilol 12.5 MG Tablet PO ×2 (06:07→17:26)
[2020-05-06] MEDS: Levothyroxine 150 MCG Tablet PO (06:07)
[2020-05-06] MEDS: Clopidogrel Bisulfate 75 MG Tablet PO (06:07)
[2020-05-06] MEDS: hydrALAZINE 50 MG Tablet PO (06:08)
[2020-05-06] MEDS: cloNIDine HCl 0.1 MG Tablet 0.05 MG PO (06:08)
[2020-05-06] MEDS: Furosemide 40 MG Tablet PO ×2 (06:08→13:22)
[2020-05-06] MEDS: Pantoprazole Sodium 40 MG Tablet PO (06:08)
[2020-05-06] MEDS: Amiodarone 200 MG Tablet PO (06:08)
[2020-05-06] MEDS: amLODIPine 10 MG Tablet PO (06:08)
[2020-05-06] MEDS: Menthol/Lanolin/Calamine/Znox 113 GM Tube 1 APPLIC TOPICAL ×2 (06:09→17:26)
--- NOTE | 2020-05-06 06:28 | NURSING ---
Patient c/o not being able to sleep last night. Patient requesting something to help him sleep tonight. Will update Dr. Santos.
[2020-05-06] MEDS: Aspirin 81 MG TAB.CHEW PO (08:44)
--- NOTE | 2020-05-06 11:25 | CASEMGMT ---
Social Work IDT met with patient and son via conference call for care plan meeting. Discussed patient's progress in therapy. Pt is Gaurav for bed mobility, sit to stands and transfers and ambulating 50 with FWW. Pt is maxA for LE dressing, supervision for UE dressing, and grooming, modA for clothing management for toileting, CGA for hygiene. Pt is on a cardiac diet, good intake. Pt is out of isolation 05/16, but that will restart if pt goes out for f/u appt 05/12. Explained Medicare benefit. Pt's goal is to return home with and PLOF, and be bale to go to 2nd floor for bed/bath. Will continue to follow. CODEY Lozano IP COUNSEL
--- NOTE | 2020-05-06 11:59 | NURSING ---
Spoke with Dr. Gerardo's (Cement Worker) office, they stated that the 05/12/20 appt could be cancelled as it is only a f/u from the inpatient hospital stay. They requested the appt be rescheduled a 1 week after the patient is d/c'd from TCU. Family made aware of this.
[2020-05-06] MEDS: oxyCODONE 5 MG Tablet PO ×2 (13:15→22:32)
[2020-05-06] MEDS: Senna/Docusate Sodium 1 Tablet 2 TABLET PO (17:26)
[2020-05-06] MEDS: Tamsulosin HCl 0.4 MG Capsule PO (17:26)
[2020-05-06] MEDS: Atorvastatin Calcium 20 MG Tablet PO (22:32)
[2020-05-06] MEDS: MELATONIN 10 MG TABLET PO (22:33)
[2020-05-06] MEDS: hydrALAZINE 25 MG Tablet PO (22:34)
[2020-05-07] VITALS (7 sets, daily range): BP systolic 95–127; BP diastolic 36–55; PULSE 60–69; RESP 14–18; TEMP 36.4–36.5; O2SAT 93–96
[2020-05-07 06:01] LABS: International Normalized Ratio 2.9; Prothrombin Time (Protime)PT. 29.8 SECONDS (11.7-14.9)
[2020-05-07] MEDS: Levothyroxine 150 MCG Tablet PO (07:07)
[2020-05-07] MEDS: Pantoprazole Sodium 40 MG Tablet PO (07:07)
[2020-05-07] MEDS: Menthol/Lanolin/Calamine/Znox 113 GM Tube 1 APPLIC TOPICAL ×2 (07:07→17:45)
[2020-05-07] MEDS: Clopidogrel Bisulfate 75 MG Tablet PO (07:07)
[2020-05-07] MEDS: Furosemide 40 MG Tablet PO (07:07)
[2020-05-07] MEDS: Carvedilol 12.5 MG Tablet PO ×2 (07:11→17:45)
[2020-05-07] MEDS: Amiodarone 200 MG Tablet PO (07:11)
[2020-05-07] MEDS: hydrALAZINE 25 MG Tablet PO ×2 (07:11→21:42)
[2020-05-07] MEDS: Aspirin 81 MG TAB.CHEW PO (08:07)
--- NOTE | 2020-05-07 10:53 | CASEMGMT ---
BIMS and PHQ9 interviews completed on this date for MDS assessment. CHANNING Burns
[2020-05-07] MEDS: cloNIDine HCl 0.1 MG Tablet 0.05 MG PO (11:15)
[2020-05-07] MEDS: oxyCODONE 5 MG Tablet PO (12:59)
--- NOTE | 2020-05-07 15:02 | MDS.RN ---
Pain interview for jo 05/09/20 completed.
--- NOTE | 2020-05-07 16:16 | CHAPLAIN ---
Type of Pastoral Visit _x__ Initial Visit ___ Follow-up Visit ___ On-call Visit ___ General Patient Visit ___ Spiritual Assessment ___ Family Conference ___ Bereavement ___ Rapid Response ___ Code Blue ___ Other (describe below) Pastoral Care Referral From _x__ Patient ___ Family ___ Nurse ___ Physician ___ Chief Engineer Waterworks ___ Phlebotomist ___ Other (describe below) Sacrament/Intervention _x__ Active listening ___ Anointing ___ Mandaeism ___ Bereavement ___ Communion _x__ Trupti exploration ___ ___ Life review _x__ Prayer ___ Reconciliation ___ Sacrament of Sick _x__ Supportive presence ___ Wedding ___ Other (describe below) Pastoral Comments patient has been seen before in previous admissions; pt remembers director of patient financial services; pt is open to talk and reviews his health needs; pt utilizes trupti in God in coping and has supportive ; pt open to visits and spiritual care
[2020-05-07] MEDS: Tamsulosin HCl 0.4 MG Capsule PO (17:44)
[2020-05-07] MEDS: Senna/Docusate Sodium 1 Tablet 2 TABLET PO (17:46)
[2020-05-07] MEDS: Atorvastatin Calcium 20 MG Tablet PO (21:43)
[2020-05-07] MEDS: MELATONIN 10 MG TABLET PO (21:43)
[2020-05-08] VITALS (7 sets, daily range): BP systolic 112–120; BP diastolic 37–63; PULSE 63–70; RESP 16–18; TEMP 36.4–36.6; O2SAT 95–97
[2020-05-08] MEDS: hydrALAZINE 25 MG Tablet PO ×2 (04:36→21:29)
[2020-05-08] MEDS: Clopidogrel Bisulfate 75 MG Tablet PO (04:36)
[2020-05-08] MEDS: Pantoprazole Sodium 40 MG Tablet PO (04:37)
[2020-05-08] MEDS: Furosemide 40 MG Tablet PO ×2 (04:37→14:19)
[2020-05-08] MEDS: Carvedilol 12.5 MG Tablet PO ×2 (04:37→17:54)
[2020-05-08] MEDS: Menthol/Lanolin/Calamine/Znox 113 GM Tube 1 APPLIC TOPICAL ×2 (04:37→17:54)
[2020-05-08] MEDS: Levothyroxine 150 MCG Tablet PO (04:37)
[2020-05-08] MEDS: Amiodarone 200 MG Tablet PO (04:37)
[2020-05-08] MEDS: cloNIDine HCl 0.1 MG Tablet 0.05 MG PO (09:08)
[2020-05-08] MEDS: Aspirin 81 MG TAB.CHEW PO (09:10)
[2020-05-08] MEDS: oxyCODONE 5 MG Tablet PO (09:13)
[2020-05-08] MEDS: Senna/Docusate Sodium 1 Tablet 2 TABLET PO (17:54)
[2020-05-08] MEDS: Tamsulosin HCl 0.4 MG Capsule PO (17:54)
[2020-05-08] MEDS: Atorvastatin Calcium 20 MG Tablet PO (21:25)
[2020-05-08] MEDS: MELATONIN 10 MG TABLET PO (21:25)
[2020-05-09 04:00] VITALS: BP 137/50; PULSE 67; RESP 12; TEMP 36.7; O2SAT 94
[2020-05-09 06:01] VITALS: BP 135/50; PULSE 67
[2020-05-09] MEDS: hydrALAZINE 25 MG Tablet PO ×3 (06:01→20:45)
[2020-05-09] MEDS: Levothyroxine 150 MCG Tablet PO (06:01)
[2020-05-09] MEDS: Pantoprazole Sodium 40 MG Tablet PO (06:01)
[2020-05-09] MEDS: Clopidogrel Bisulfate 75 MG Tablet PO (06:01)
[2020-05-09] MEDS: Furosemide 40 MG Tablet PO ×2 (06:02→13:12)
[2020-05-09] MEDS: Carvedilol 12.5 MG Tablet PO ×2 (06:02→17:34)
[2020-05-09] MEDS: Amiodarone 200 MG Tablet PO (06:02)
[2020-05-09] MEDS: Menthol/Lanolin/Calamine/Znox 113 GM Tube 1 APPLIC TOPICAL ×2 (06:03→17:33)
[2020-05-09] MEDS: Aspirin 81 MG TAB.CHEW PO (07:58)
[2020-05-09 09:49] VITALS: O2SAT 94
[2020-05-09] MEDS: cloNIDine HCl 0.1 MG Tablet 0.05 MG PO (10:46)
[2020-05-09 13:09] VITALS: BP 127/50; PULSE 65; RESP 16; TEMP 36.5; O2SAT 96
[2020-05-09 13:12] VITALS: BP 127/50; PULSE 65
[2020-05-09] MEDS: Senna/Docusate Sodium 1 Tablet 2 TABLET PO (17:34)
[2020-05-09] MEDS: Tamsulosin HCl 0.4 MG Capsule PO (17:34)
[2020-05-09 20:45] VITALS: BP 115/53; PULSE 66
[2020-05-09] MEDS: Atorvastatin Calcium 20 MG Tablet PO (20:48)
[2020-05-09] MEDS: MELATONIN 10 MG TABLET PO (20:48)
[2020-05-10] MEDS: Carvedilol 12.5 MG Tablet PO ×2 (04:59→17:23)
[2020-05-10] MEDS: Furosemide 40 MG Tablet PO (04:59)
[2020-05-10] MEDS: Levothyroxine 150 MCG Tablet PO (04:59)
[2020-05-10] MEDS: Menthol/Lanolin/Calamine/Znox 113 GM Tube 1 APPLIC TOPICAL ×2 (05:00→17:24)
[2020-05-10] MEDS: Amiodarone 200 MG Tablet PO (05:00)
[2020-05-10] MEDS: Pantoprazole Sodium 40 MG Tablet PO (05:00)
[2020-05-10] MEDS: Clopidogrel Bisulfate 75 MG Tablet PO (05:01)
[2020-05-10 05:02] VITALS: PULSE 63
[2020-05-10] MEDS: hydrALAZINE 25 MG Tablet PO (05:02)
[2020-05-10 05:07] VITALS: BP 132/44; RESP 16; TEMP 37.4; O2SAT 96
[2020-05-10 06:03] LABS: Absolute Lymphocyte Count 1.55 X10^3/uL (0.83-4.51); Absolute Neutrophil Count 7.6 X10^3/uL (2.0-7.7); Basophil# 0.04 X10^3/uL; Basophil% 0.4 % (0-1); Eosinophil# 0.19 X10^3/uL; Eosinophils% 1.8 % (0-5); Hemoglobin 8.2 g/dL (13.0-16.5); Lymphocyte # 1.55 X10^3/ul (4.0); Lymphocyte % 14.8 % (19-41); Mean Corp Hgb Conc 31.5 g/dL (32-36); Mean Corpuscular Hgb 27.4 pg (27.0-32.0); Monocyte# 0.85 X10^3/uL; Monocyte% 8.1 % (0-10); NRBC Flagged by Analyzer 0 % (0-5); Neutrophil % 72.9 % (47-70); Platelet Count 396 K/mm3 (150-450); RBC Distribution Width CV 16.7 % (11.6-14.6); RBC Distribution Width SD 52.1 fl (35.1-43.9); Red Blood Count 2.99 M/mm3 (4.6-6.2); White Blood Count 10.4 K/mm3 (4.4-11.0)
[2020-05-10 06:23] LABS: Anion Gap 5 (5-15); BUN 36 mg/dL (7-18); Calcium,Total 7.9 mg/dL (8.5-10.1); Chloride 106 mmol/L (98-107); Creatinine, Serum 1.44 mg/dL (0.70-1.30); EST Glomerular Filtration Rate 50 mL/min (>60); Est Glom Filt Rate - Afr Amer 61 mL/min (>60); Estimated Creatinine Clearance 29.42 ml/min; Glucose 82 mg/dL (74-106); Potassium 3.8 mmol/L (3.5-5.1); Sodium Level 138 mmol/L (136-145)
[2020-05-10] MEDS: Aspirin 81 MG TAB.CHEW PO (07:49)
[2020-05-10] MEDS: cloNIDine HCl 0.1 MG Tablet 0.05 MG PO (09:33)
[2020-05-10] MEDS: Tuberculin,Purif.prot.deriv. 50 TU/ML Vial 5 ML ID (09:34)
[2020-05-10 10:00] VITALS: PULSE 75; RESP 16; O2SAT 95
[2020-05-10 13:13] VITALS: BP 93/46; PULSE 71
[2020-05-10 14:40] VITALS: BP 103/42; PULSE 66; RESP 18; TEMP 36.6; O2SAT 95
[2020-05-10] MEDS: Tamsulosin HCl 0.4 MG Capsule PO (17:23)
[2020-05-10] MEDS: MELATONIN 10 MG TABLET PO (21:44)
[2020-05-10] MEDS: Atorvastatin Calcium 20 MG Tablet PO (21:44)
[2020-05-10 21:52] VITALS: BP 98/42; PULSE 63
[2020-05-11] MEDS: Pantoprazole Sodium 40 MG Tablet PO (05:49)
[2020-05-11] MEDS: Clopidogrel Bisulfate 75 MG Tablet PO (05:49)
[2020-05-11] MEDS: Carvedilol 12.5 MG Tablet PO ×2 (05:49→17:42)
[2020-05-11] MEDS: Levothyroxine 150 MCG Tablet PO (05:49)
[2020-05-11] MEDS: Amiodarone 200 MG Tablet PO (05:49)
[2020-05-11 05:51] VITALS: BP 130/60; PULSE 67
[2020-05-11] MEDS: Menthol/Lanolin/Calamine/Znox 113 GM Tube 1 APPLIC TOPICAL ×2 (05:51→17:37)
[2020-05-11] MEDS: hydrALAZINE 25 MG Tablet PO (05:51)
[2020-05-11] MEDS: Furosemide 40 MG Tablet PO (05:55)
[2020-05-11 05:56] VITALS: BP 130/60; PULSE 67; RESP 16; TEMP 36.9; O2SAT 98
[2020-05-11 06:15] LABS: International Normalized Ratio 2.4; Prothrombin Time (Protime)PT. 25.7 SECONDS (11.7-14.9)
[2020-05-11] MEDS: Aspirin 81 MG TAB.CHEW PO (08:30)
[2020-05-11] MEDS: Acetaminophen 500 MG Tablet 1000 MG PO (11:26)
--- NOTE | 2020-05-11 11:28 | NURSING ---
Pt stated he didnt want this nurse to call family and update them. stated he calls his every day.
[2020-05-11 14:17] VITALS: BP 102/41; PULSE 63; RESP 16; TEMP 36.3; O2SAT 98
[2020-05-11] MEDS: Tamsulosin HCl 0.4 MG Capsule PO (17:37)
[2020-05-11 17:44] VITALS: BP 149/61; PULSE 65
[2020-05-11] MEDS: Atorvastatin Calcium 20 MG Tablet PO (20:49)
[2020-05-11] MEDS: MELATONIN 10 MG TABLET PO (20:49)
[2020-05-11 22:31] VITALS: O2SAT 98
[2020-05-12 05:42] LABS: Absolute Lymphocyte Count 1.54 X10^3/uL (0.83-4.51); Absolute Neutrophil Count 5.2 X10^3/uL (2.0-7.7); Basophil# 0.03 X10^3/uL; Basophil% 0.4 % (0-1); Eosinophil# 0.22 X10^3/uL; Eosinophils% 2.8 % (0-5); Hematocrit 26.1 % (40-54); Hemoglobin 8.1 g/dL (13.0-16.5); Lymphocyte # 1.54 X10^3/ul (4.0); Lymphocyte % 19.4 % (19-41); Mean Corpuscular Hgb 27.5 pg (27.0-32.0); Mean Corpuscular Volume 88.5 fL (80-94); Mean Platelet Vol. 8.8 fl (6.2-12.0); Monocyte# 0.86 X10^3/uL; Monocyte% 10.8 % (0-10); NRBC Flagged by Analyzer 0 % (0-5); Neutrophil # 5.18 X10^3/uL (2.7-7.7); Neutrophil % 65.1 % (47-70); Platelet Count 399 K/mm3 (150-450); RBC Distribution Width CV 16.8 % (11.6-14.6); RBC Distribution Width SD 53.6 fl (35.1-43.9); Red Blood Count 2.95 M/mm3 (4.6-6.2)
[2020-05-12 06:03] VITALS: BP 138/69; PULSE 63; RESP 17; TEMP 37; O2SAT 98
[2020-05-12] MEDS: Carvedilol 12.5 MG Tablet PO ×2 (06:04→17:08)
[2020-05-12] MEDS: Clopidogrel Bisulfate 75 MG Tablet PO (06:04)
[2020-05-12] MEDS: Amiodarone 200 MG Tablet PO (06:04)
[2020-05-12] MEDS: Levothyroxine 150 MCG Tablet PO (06:04)
[2020-05-12] MEDS: Furosemide 40 MG Tablet PO (06:04)
[2020-05-12] MEDS: Pantoprazole Sodium 40 MG Tablet PO (06:04)
[2020-05-12] MEDS: Menthol/Lanolin/Calamine/Znox 113 GM Tube 1 APPLIC TOPICAL ×2 (06:06→17:10)
[2020-05-12 06:17] LABS: Anion Gap 4 (5-15); BUN 38 mg/dL (7-18); BUN/Creat Ratio 27.1 RATIO (10-20); Calcium,Total 8.1 mg/dL (8.5-10.1); Chloride 108 mmol/L (98-107); EST Glomerular Filtration Rate 52 mL/min (>60); Est Glom Filt Rate - Afr Amer 63 mL/min (>60); Estimated Creatinine Clearance 30.26 ml/min; Glucose 82 mg/dL (74-106); Potassium 4.1 mmol/L (3.5-5.1); Sodium Level 139 mmol/L (136-145)
[2020-05-12] MEDS: Aspirin 81 MG TAB.CHEW PO (08:55)
[2020-05-12 10:00] VITALS: PULSE 73; RESP 16; O2SAT 99
[2020-05-12 13:56] VITALS: BP 116/49; PULSE 70; RESP 15; TEMP 37.1; O2SAT 97
[2020-05-12] MEDS: Senna/Docusate Sodium 1 Tablet 2 TABLET PO (17:08)
[2020-05-12] MEDS: Tamsulosin HCl 0.4 MG Capsule PO (17:08)
[2020-05-12] MEDS: MELATONIN 10 MG TABLET PO (20:49)
[2020-05-12] MEDS: Atorvastatin Calcium 20 MG Tablet PO (20:49)
[2020-05-13] MEDS: Pantoprazole Sodium 40 MG Tablet PO (06:04)
[2020-05-13] MEDS: Levothyroxine 150 MCG Tablet PO (06:04)
[2020-05-13] MEDS: Furosemide 40 MG Tablet PO (06:04)
[2020-05-13] MEDS: Amiodarone 200 MG Tablet PO (06:04)
[2020-05-13] MEDS: Carvedilol 12.5 MG Tablet PO ×2 (06:04→16:43)
[2020-05-13] MEDS: Clopidogrel Bisulfate 75 MG Tablet PO (06:04)
[2020-05-13] MEDS: Menthol/Lanolin/Calamine/Znox 113 GM Tube 1 APPLIC TOPICAL ×2 (06:05→16:45)
[2020-05-13 06:15] VITALS: BP 133/70; PULSE 79; RESP 16; TEMP 36.4; O2SAT 95
[2020-05-13] MEDS: oxyCODONE 5 MG Tablet PO (08:23)
[2020-05-13] MEDS: Aspirin 81 MG TAB.CHEW PO (08:24)
[2020-05-13] MEDS: Iron Polysaccharide Complex 150 MG CAPSULE PO (08:24)
[2020-05-13 13:57] VITALS: BP 109/65; PULSE 66; RESP 15; TEMP 36.5; O2SAT 99
[2020-05-13] MEDS: Tamsulosin HCl 0.4 MG Capsule PO (16:43)
[2020-05-13] MEDS: Atorvastatin Calcium 20 MG Tablet PO (20:33)
[2020-05-13] MEDS: MELATONIN 10 MG TABLET PO (20:33)
[2020-05-14 04:45] VITALS: BP 144/62; PULSE 68; RESP 18; TEMP 36.2; O2SAT 98
[2020-05-14] MEDS: Carvedilol 12.5 MG Tablet PO ×2 (04:47→16:42)
[2020-05-14] MEDS: Pantoprazole Sodium 40 MG Tablet PO (04:48)
[2020-05-14] MEDS: Amiodarone 200 MG Tablet PO (04:48)
[2020-05-14] MEDS: Clopidogrel Bisulfate 75 MG Tablet PO (04:48)
[2020-05-14] MEDS: Furosemide 40 MG Tablet PO (04:48)
[2020-05-14] MEDS: Levothyroxine 150 MCG Tablet PO (04:48)
[2020-05-14] MEDS: Menthol/Lanolin/Calamine/Znox 113 GM Tube 1 APPLIC TOPICAL ×2 (04:54→16:46)
[2020-05-14 05:39] LABS: Hematocrit 27.5 % (40-54); Hemoglobin 8.5 g/dL (13.0-16.5)
[2020-05-14 05:48] LABS: International Normalized Ratio 1.7; Prothrombin Time (Protime)PT. 19.7 SECONDS (11.7-14.9)
[2020-05-14] MEDS: Iron Polysaccharide Complex 150 MG CAPSULE PO (08:15)
--- NOTE | 2020-05-14 09:05 | MDS.RN ---
Information for the mds was obtained from review of the clinical record, interview of resident, staff, and direct observation of resident's care.
[2020-05-14 13:22] VITALS: PULSE 71; RESP 18; O2SAT 98
[2020-05-14 14:11] VITALS: BP 127/59; PULSE 70; RESP 14; TEMP 36.9; O2SAT 95
[2020-05-14] MEDS: Tamsulosin HCl 0.4 MG Capsule PO (16:42)
[2020-05-14] MEDS: oxyCODONE 5 MG Tablet PO (16:42)
[2020-05-14] MEDS: Warfarin 0.5 MG Tablet PO (16:42)
[2020-05-14] MEDS: MELATONIN 10 MG TABLET PO (20:57)
[2020-05-14] MEDS: Atorvastatin Calcium 20 MG Tablet PO (20:57)
[2020-05-15 05:06] VITALS: BP 151/55; PULSE 66; RESP 16; TEMP 36.5; O2SAT 98
[2020-05-15] MEDS: Carvedilol 12.5 MG Tablet PO ×2 (05:08→16:28)
[2020-05-15] MEDS: Levothyroxine 150 MCG Tablet PO (05:08)
[2020-05-15] MEDS: Amiodarone 200 MG Tablet PO (05:08)
[2020-05-15] MEDS: Furosemide 40 MG Tablet PO (05:08)
[2020-05-15] MEDS: Clopidogrel Bisulfate 75 MG Tablet PO (05:08)
[2020-05-15] MEDS: Menthol/Lanolin/Calamine/Znox 113 GM Tube 1 APPLIC TOPICAL ×2 (05:09→16:26)
[2020-05-15] MEDS: Pantoprazole Sodium 40 MG Tablet PO (05:10)
[2020-05-15] MEDS: Iron Polysaccharide Complex 150 MG CAPSULE PO (08:54)
--- NOTE | 2020-05-15 12:48 | NURSING ---
pt stated he up dates his .
[2020-05-15] MEDS: Acetaminophen 500 MG Tablet 1000 MG PO (13:18)
[2020-05-15 14:05] VITALS: BP 125/64; PULSE 67; RESP 18; TEMP 37; O2SAT 98
[2020-05-15] MEDS: Warfarin 0.5 MG Tablet PO (16:26)
[2020-05-15] MEDS: Tamsulosin HCl 0.4 MG Capsule PO (16:26)
[2020-05-15] MEDS: MELATONIN 10 MG TABLET PO (21:09)
[2020-05-15] MEDS: Atorvastatin Calcium 20 MG Tablet PO (21:09)
--- NOTE | 2020-05-16 02:39 | NURSING ---
Addendum entered by Dulce Maria Campoverde 05/16/20 06:42: Pt left inner thigh and left lower extremity. Original Note: This nurse assisted pt to restroom and notice swelling to right inner thigh and +3 pitting to right lower extremity. No warmth or pain noted during this time. Rn made aware.
[2020-05-16 04:56] VITALS: BP 153/63; PULSE 67; RESP 16; TEMP 37; O2SAT 98
[2020-05-16] MEDS: Menthol/Lanolin/Calamine/Znox 113 GM Tube 1 APPLIC TOPICAL ×2 (05:01→18:20)
[2020-05-16] MEDS: Furosemide 40 MG Tablet PO (05:02)
[2020-05-16] MEDS: Pantoprazole Sodium 40 MG Tablet PO (05:02)
[2020-05-16] MEDS: Clopidogrel Bisulfate 75 MG Tablet PO (05:02)
[2020-05-16] MEDS: Amiodarone 200 MG Tablet PO (05:02)
[2020-05-16] MEDS: Levothyroxine 150 MCG Tablet PO (05:02)
[2020-05-16] MEDS: Carvedilol 12.5 MG Tablet PO ×2 (05:02→18:18)
[2020-05-16] MEDS: Iron Polysaccharide Complex 150 MG CAPSULE PO (08:58)
[2020-05-16 10:00] VITALS: PULSE 68; RESP 18; O2SAT 97
[2020-05-16 14:09] VITALS: BP 134/55; PULSE 62; RESP 16; TEMP 35.6; O2SAT 98
[2020-05-16] MEDS: Tamsulosin HCl 0.4 MG Capsule PO (18:18)
[2020-05-16] MEDS: Warfarin 0.5 MG Tablet PO (18:18)
[2020-05-16] MEDS: MELATONIN 10 MG TABLET PO (20:21)
[2020-05-16] MEDS: Atorvastatin Calcium 20 MG Tablet PO (20:21)
[2020-05-17 05:14] VITALS: BP 150/43; PULSE 62; RESP 16; TEMP 36.4; O2SAT 97
[2020-05-17] MEDS: Menthol/Lanolin/Calamine/Znox 113 GM Tube 1 APPLIC TOPICAL ×2 (05:16→16:59)
[2020-05-17] MEDS: Carvedilol 12.5 MG Tablet PO ×2 (05:16→16:59)
[2020-05-17] MEDS: Clopidogrel Bisulfate 75 MG Tablet PO (05:17)
[2020-05-17] MEDS: Furosemide 40 MG Tablet PO (05:17)
[2020-05-17] MEDS: Pantoprazole Sodium 40 MG Tablet PO (05:17)
[2020-05-17] MEDS: Levothyroxine 150 MCG Tablet PO (05:17)
[2020-05-17] MEDS: Amiodarone 200 MG Tablet PO (05:17)
[2020-05-17 06:22] LABS: Absolute Lymphocyte Count 1.37 X10^3/uL (0.83-4.51); Absolute Neutrophil Count 4.6 X10^3/uL (2.0-7.7); Basophil# 0.03 X10^3/uL; Basophil% 0.4 % (0-1); Eosinophil# 0.17 X10^3/uL; Eosinophils% 2.4 % (0-5); Hematocrit 27.1 % (40-54); Hemoglobin 8.4 g/dL (13.0-16.5); Lymphocyte # 1.37 X10^3/ul (4.0); Lymphocyte % 19.4 % (19-41); Mean Corpuscular Hgb 27.5 pg (27.0-32.0); Mean Corpuscular Volume 88.6 fL (80-94); Mean Platelet Vol. 9.2 fl (6.2-12.0); Monocyte# 0.83 X10^3/uL; Monocyte% 11.8 % (0-10); NRBC Flagged by Analyzer 0 % (0-5); Neutrophil # 4.62 X10^3/uL (2.7-7.7); Neutrophil % 65.4 % (47-70); Platelet Count 355 K/mm3 (150-450); RBC Distribution Width CV 16.6 % (11.6-14.6); RBC Distribution Width SD 53.7 fl (35.1-43.9); Red Blood Count 3.06 M/mm3 (4.6-6.2); White Blood Count 7.1 K/mm3 (4.4-11.0)
[2020-05-17 07:08] LABS: Anion Gap 4 (5-15); BUN 29 mg/dL (7-18); BUN/Creat Ratio 22.7 RATIO (10-20); Calcium,Total 8.2 mg/dL (8.5-10.1); Chloride 107 mmol/L (98-107); Creatinine, Serum 1.28 mg/dL (0.70-1.30); EST Glomerular Filtration Rate 58 mL/min (>60); Est Glom Filt Rate - Afr Amer 70 mL/min (>60); Estimated Creatinine Clearance 33.09 ml/min; Glucose 82 mg/dL (74-106); Sodium Level 139 mmol/L (136-145)
[2020-05-17] MEDS: Iron Polysaccharide Complex 150 MG CAPSULE PO (09:35)
--- NOTE | 2020-05-17 10:46 | NURSING ---
19 moises removed from patient's left hip, pt tolerated well.
[2020-05-17 14:17] VITALS: BP 130/42; PULSE 63; RESP 18; TEMP 36.9; O2SAT 96
[2020-05-17] MEDS: Warfarin 0.5 MG Tablet PO (16:59)
[2020-05-17] MEDS: Senna/Docusate Sodium 1 Tablet 2 TABLET PO (16:59)
[2020-05-17] MEDS: Tamsulosin HCl 0.4 MG Capsule PO (16:59)
[2020-05-17] MEDS: Atorvastatin Calcium 20 MG Tablet PO (21:06)
[2020-05-17] MEDS: MELATONIN 10 MG TABLET PO (21:06)
[2020-05-18] MEDS: Clopidogrel Bisulfate 75 MG Tablet PO (04:39)
[2020-05-18] MEDS: Carvedilol 12.5 MG Tablet PO ×2 (04:39→16:28)
[2020-05-18] MEDS: Furosemide 40 MG Tablet PO (04:39)
[2020-05-18] MEDS: Pantoprazole Sodium 40 MG Tablet PO (04:39)
[2020-05-18] MEDS: Levothyroxine 150 MCG Tablet PO (04:39)
[2020-05-18] MEDS: Amiodarone 200 MG Tablet PO (04:40)
[2020-05-18] MEDS: Menthol/Lanolin/Calamine/Znox 113 GM Tube 1 APPLIC TOPICAL ×2 (04:41→16:31)
[2020-05-18 04:42] VITALS: BP 148/41; PULSE 67; RESP 18; TEMP 36.1; O2SAT 95
[2020-05-18 06:00] LABS: International Normalized Ratio 1.5; Prothrombin Time (Protime)PT. 17.4 SECONDS (11.7-14.9)
[2020-05-18] MEDS: Iron Polysaccharide Complex 150 MG CAPSULE PO (07:59)
[2020-05-18 13:46] VITALS: BP 122/69; PULSE 65; RESP 16; TEMP 37.1; O2SAT 93
[2020-05-18] MEDS: oxyCODONE 5 MG Tablet PO (14:24)
--- NOTE | 2020-05-18 14:25 | NURSING ---
Patient spoke with today.
[2020-05-18] MEDS: Tamsulosin HCl 0.4 MG Capsule PO (16:28)
[2020-05-18] MEDS: Jantoven 2 MG Tablet PO (16:29)
[2020-05-18] MEDS: Atorvastatin Calcium 20 MG Tablet PO (21:08)
[2020-05-18] MEDS: MELATONIN 10 MG TABLET PO (21:08)
[2020-05-19 05:28] VITALS: BP 146/59; PULSE 65; RESP 16; TEMP 36.9; O2SAT 97
[2020-05-19] MEDS: Menthol/Lanolin/Calamine/Znox 113 GM Tube 1 APPLIC TOPICAL ×2 (05:30→17:31)
[2020-05-19] MEDS: Levothyroxine 150 MCG Tablet PO (05:31)
[2020-05-19] MEDS: Clopidogrel Bisulfate 75 MG Tablet PO (05:31)
[2020-05-19] MEDS: Amiodarone 200 MG Tablet PO (05:31)
[2020-05-19] MEDS: Furosemide 40 MG Tablet PO (05:31)
[2020-05-19] MEDS: Carvedilol 12.5 MG Tablet PO ×2 (05:31→17:30)
[2020-05-19] MEDS: Pantoprazole Sodium 40 MG Tablet PO (05:31)
[2020-05-19] MEDS: Iron Polysaccharide Complex 150 MG CAPSULE PO (08:01)
--- NOTE | 2020-05-19 13:26 | NURSING ---
Per therapy pt is allowed up ab yoan in room after morning care and dressed with walker.
--- NOTE | 2020-05-19 13:36 | NURSING ---
updated on patent. thanked this nurse.
[2020-05-19 14:09] VITALS: BP 133/40; PULSE 66; RESP 14; TEMP 36.4; O2SAT 96
[2020-05-19] MEDS: Tamsulosin HCl 0.4 MG Capsule PO (17:30)
[2020-05-19] MEDS: Jantoven 2 MG Tablet PO (17:30)
[2020-05-19] MEDS: MELATONIN 10 MG TABLET PO (21:08)
[2020-05-19] MEDS: Atorvastatin Calcium 20 MG Tablet PO (21:08)
[2020-05-20 05:26] VITALS: BP 147/50; PULSE 61; RESP 16; TEMP 37; O2SAT 98
[2020-05-20] MEDS: Carvedilol 12.5 MG Tablet PO ×2 (05:28→18:13)
[2020-05-20] MEDS: Amiodarone 200 MG Tablet PO (05:28)
[2020-05-20] MEDS: Clopidogrel Bisulfate 75 MG Tablet PO (05:28)
[2020-05-20] MEDS: Levothyroxine 150 MCG Tablet PO (05:28)
[2020-05-20] MEDS: Furosemide 40 MG Tablet PO (05:29)
[2020-05-20] MEDS: Pantoprazole Sodium 40 MG Tablet PO (05:29)
[2020-05-20] MEDS: Menthol/Lanolin/Calamine/Znox 113 GM Tube 1 APPLIC TOPICAL ×2 (05:30→18:14)
[2020-05-20] MEDS: Iron Polysaccharide Complex 150 MG CAPSULE PO (08:08)
[2020-05-20 10:00] VITALS: PULSE 60; RESP 16; O2SAT 98
[2020-05-20] MEDS: oxyCODONE 5 MG Tablet PO (12:28)
[2020-05-20 13:36] VITALS: BP 132/65; PULSE 70; RESP 16; TEMP 36.9; O2SAT 96
[2020-05-20] MEDS: Jantoven 2 MG Tablet PO (18:12)
[2020-05-20] MEDS: Tamsulosin HCl 0.4 MG Capsule PO (18:13)
[2020-05-20] MEDS: MELATONIN 10 MG TABLET PO (20:31)
[2020-05-20] MEDS: Atorvastatin Calcium 20 MG Tablet PO (20:31)
[2020-05-21 05:46] LABS: International Normalized Ratio 1.5; Prothrombin Time (Protime)PT. 17.5 SECONDS (11.7-14.9)
[2020-05-21 06:28] VITALS: BP 131/62; PULSE 63; RESP 16; TEMP 36.7; O2SAT 97
[2020-05-21] MEDS: Clopidogrel Bisulfate 75 MG Tablet PO (06:29)
[2020-05-21] MEDS: Carvedilol 12.5 MG Tablet PO ×2 (06:29→17:49)
[2020-05-21] MEDS: Furosemide 40 MG Tablet PO (06:29)
[2020-05-21] MEDS: Levothyroxine 150 MCG Tablet PO (06:30)
[2020-05-21] MEDS: Pantoprazole Sodium 40 MG Tablet PO (06:30)
[2020-05-21] MEDS: Amiodarone 200 MG Tablet PO (06:30)
[2020-05-21] MEDS: Menthol/Lanolin/Calamine/Znox 113 GM Tube 1 APPLIC TOPICAL ×2 (06:32→17:48)
[2020-05-21] MEDS: Iron Polysaccharide Complex 150 MG CAPSULE PO (07:58)
[2020-05-21 13:50] VITALS: BP 121/61; PULSE 70; RESP 18; TEMP 36.3; O2SAT 98
[2020-05-21] MEDS: Tamsulosin HCl 0.4 MG Capsule PO (17:49)
[2020-05-21] MEDS: Senna/Docusate Sodium 1 Tablet 2 TABLET PO (17:50)
[2020-05-21] MEDS: Atorvastatin Calcium 20 MG Tablet PO (21:12)
[2020-05-21] MEDS: MELATONIN 10 MG TABLET PO (21:12)
[2020-05-22 05:50] VITALS: BP 131/50; PULSE 60; RESP 18; TEMP 36.6; O2SAT 96
[2020-05-22] MEDS: Amiodarone 200 MG Tablet PO (05:54)
[2020-05-22] MEDS: Furosemide 40 MG Tablet PO (05:54)
[2020-05-22] MEDS: Carvedilol 12.5 MG Tablet PO ×2 (05:54→17:08)
[2020-05-22] MEDS: Clopidogrel Bisulfate 75 MG Tablet PO (05:54)
[2020-05-22] MEDS: Pantoprazole Sodium 40 MG Tablet PO (05:54)
[2020-05-22] MEDS: Menthol/Lanolin/Calamine/Znox 113 GM Tube 1 APPLIC TOPICAL ×2 (05:54→17:06)
[2020-05-22] MEDS: Levothyroxine 150 MCG Tablet PO (05:54)
[2020-05-22] MEDS: Iron Polysaccharide Complex 150 MG CAPSULE PO (08:19)
[2020-05-22 10:00] VITALS: RESP 16
[2020-05-22 13:53] VITALS: BP 135/48; PULSE 65; RESP 14; TEMP 37; O2SAT 96
[2020-05-22] MEDS: Tamsulosin HCl 0.4 MG Capsule PO (17:07)
[2020-05-22] MEDS: Senna/Docusate Sodium 1 Tablet 2 TABLET PO (17:07)
[2020-05-22] MEDS: MELATONIN 10 MG TABLET PO (21:51)
[2020-05-22] MEDS: Atorvastatin Calcium 20 MG Tablet PO (21:51)
[2020-05-23 04:00] VITALS: BP 150/62; PULSE 60; RESP 14; TEMP 36.4; O2SAT 97
[2020-05-23] MEDS: Clopidogrel Bisulfate 75 MG Tablet PO (06:34)
[2020-05-23] MEDS: Levothyroxine 150 MCG Tablet PO (06:34)
[2020-05-23] MEDS: Pantoprazole Sodium 40 MG Tablet PO (06:34)
[2020-05-23] MEDS: Furosemide 40 MG Tablet PO (06:34)
[2020-05-23] MEDS: Amiodarone 200 MG Tablet PO (06:34)
[2020-05-23] MEDS: Menthol/Lanolin/Calamine/Znox 113 GM Tube 1 APPLIC TOPICAL ×2 (06:34→17:03)
[2020-05-23] MEDS: Carvedilol 12.5 MG Tablet PO ×2 (06:34→17:06)
[2020-05-23] MEDS: Iron Polysaccharide Complex 150 MG CAPSULE PO (07:57)
[2020-05-23 15:02] VITALS: BP 117/50; PULSE 63; RESP 16; TEMP 36.6; O2SAT 97
--- NOTE | 2020-05-23 15:05 | NURSING ---
FAMILY UPDATED ON PATENT
[2020-05-23] MEDS: Tamsulosin HCl 0.4 MG Capsule PO (17:06)
[2020-05-23] MEDS: Atorvastatin Calcium 20 MG Tablet PO (21:14)
[2020-05-23] MEDS: MELATONIN 10 MG TABLET PO (21:14)
[2020-05-24 04:00] VITALS: BP 144/62; PULSE 57; RESP 18; TEMP 36.4; O2SAT 98
[2020-05-24 05:26] LABS: Absolute Lymphocyte Count 1.41 X10^3/uL (0.83-4.51); Basophil# 0.02 X10^3/uL; Basophil% 0.3 % (0-1); Eosinophil# 0.22 X10^3/uL; Eosinophils% 3.5 % (0-5); Hematocrit 29.7 % (40-54); Hemoglobin 9.3 g/dL (13.0-16.5); Lymphocyte # 1.41 X10^3/ul (4.0); Lymphocyte % 22.3 % (19-41); Mean Corp Hgb Conc 31.3 g/dL (32-36); Mean Corpuscular Hgb 27.9 pg (27.0-32.0); Mean Corpuscular Volume 89.2 fL (80-94); Mean Platelet Vol. 9.2 fl (6.2-12.0); Monocyte% 9.5 % (0-10); NRBC Flagged by Analyzer 0 % (0-5); Neutrophil # 4.03 X10^3/uL (2.7-7.7); Neutrophil % 63.8 % (47-70); Platelet Count 237 K/mm3 (150-450); RBC Distribution Width CV 16.5 % (11.6-14.6); RBC Distribution Width SD 53.7 fl (35.1-43.9); Red Blood Count 3.33 M/mm3 (4.6-6.2); White Blood Count 6.3 K/mm3 (4.4-11.0)
[2020-05-24] MEDS: Pantoprazole Sodium 40 MG Tablet PO (05:57)
[2020-05-24] MEDS: Clopidogrel Bisulfate 75 MG Tablet PO (05:57)
[2020-05-24] MEDS: Amiodarone 200 MG Tablet PO (05:57)
[2020-05-24] MEDS: Levothyroxine 150 MCG Tablet PO (05:57)
[2020-05-24] MEDS: Furosemide 40 MG Tablet PO (05:57)
[2020-05-24] MEDS: Menthol/Lanolin/Calamine/Znox 113 GM Tube 1 APPLIC TOPICAL ×2 (05:57→17:54)
[2020-05-24] MEDS: Carvedilol 12.5 MG Tablet PO ×2 (05:57→17:56)
[2020-05-24 06:04] LABS: Anion Gap 5 (5-15); BUN 27 mg/dL (7-18); BUN/Creat Ratio 20.8 RATIO (10-20); Calcium,Total 8.5 mg/dL (8.5-10.1); Chloride 106 mmol/L (98-107); EST Glomerular Filtration Rate 57 mL/min (>60); Est Glom Filt Rate - Afr Amer 69 mL/min (>60); Estimated Creatinine Clearance 32.59 ml/min; Glucose 80 mg/dL (74-106); Potassium 4.3 mmol/L (3.5-5.1); Sodium Level 140 mmol/L (136-145)
[2020-05-24] MEDS: Iron Polysaccharide Complex 150 MG CAPSULE PO (07:43)
[2020-05-24 11:20] VITALS: PULSE 63; RESP 18; O2SAT 97
--- NOTE | 2020-05-24 13:44 | NURSING ---
pt stated he up dated
[2020-05-24 14:01] VITALS: BP 131/62; PULSE 65; RESP 16; TEMP 36.8; O2SAT 97
[2020-05-24] MEDS: Tamsulosin HCl 0.4 MG Capsule PO (17:55)
[2020-05-24] MEDS: Atorvastatin Calcium 20 MG Tablet PO (21:38)
[2020-05-24] MEDS: MELATONIN 10 MG TABLET PO (21:38)
[2020-05-25 04:00] VITALS: BP 162/71; PULSE 64; RESP 18; TEMP 36.4; O2SAT 96
[2020-05-25] MEDS: Amiodarone 200 MG Tablet PO (05:14)
[2020-05-25] MEDS: Menthol/Lanolin/Calamine/Znox 113 GM Tube 1 APPLIC TOPICAL ×2 (05:14→17:55)
[2020-05-25] MEDS: Furosemide 40 MG Tablet PO (05:15)
[2020-05-25] MEDS: Clopidogrel Bisulfate 75 MG Tablet PO (05:15)
[2020-05-25] MEDS: Pantoprazole Sodium 40 MG Tablet PO (05:15)
[2020-05-25] MEDS: Carvedilol 12.5 MG Tablet PO ×2 (05:15→17:54)
[2020-05-25] MEDS: Levothyroxine 150 MCG Tablet PO (05:16)
[2020-05-25 06:01] LABS: International Normalized Ratio 1.8; Prothrombin Time (Protime)PT. 20.2 SECONDS (11.7-14.9)
[2020-05-25] MEDS: Iron Polysaccharide Complex 150 MG CAPSULE PO (08:44)
[2020-05-25 13:46] VITALS: BP 135/50; PULSE 69; RESP 14; TEMP 37.1; O2SAT 97
--- NOTE | 2020-05-25 17:10 | VDLE_ITS ---
Reason For Study: Swelling Procedure LEFT Exam performed portable in patient room. GSV is normal. A preliminary report was called and/or faxed CFV is compressible, spontaneous, phasic, to TCU. competent, and demonstrates normal augmentation. FV is compressible, spontaneous, phasic, competent and demonstrates normal augmentation. POP V is compressible, spontaneous, phasic, competent and demonstrates normal augmentation. T/P Trunk is compressible. PTV is compressible. LT PerV is compressible. Interpretation Summary Deep veins of the left lower extremity are patent and compressible segmentally. There is no evidence of left lower extremity deep vein thrombosis. Valvular competence appears intact within the proximal deep venous system on the left . The left great saphenous vein appears patent and compressible segmentally. Ordering Physician: Aidan Santos Referring Physician: Abrahan Modi MD Performed By: Siobhan Mike RVT
[2020-05-25] MEDS: Tamsulosin HCl 0.4 MG Capsule PO (17:53)
[2020-05-25 20:16] VITALS: PULSE 99; RESP 16; O2SAT 94
[2020-05-25] MEDS: MELATONIN 10 MG TABLET PO (21:34)
[2020-05-25] MEDS: Atorvastatin Calcium 20 MG Tablet PO (21:34)
[2020-05-26] MEDS: Pantoprazole Sodium 40 MG Tablet PO (06:26)
[2020-05-26] MEDS: Amiodarone 200 MG Tablet PO (06:26)
[2020-05-26] MEDS: Levothyroxine 150 MCG Tablet PO (06:26)
[2020-05-26] MEDS: Clopidogrel Bisulfate 75 MG Tablet PO (06:26)
[2020-05-26] MEDS: Carvedilol 12.5 MG Tablet PO ×2 (06:26→17:09)
[2020-05-26] MEDS: Furosemide 40 MG Tablet PO (06:26)
[2020-05-26] MEDS: Menthol/Lanolin/Calamine/Znox 113 GM Tube 1 APPLIC TOPICAL ×2 (06:31→17:07)
[2020-05-26 06:35] VITALS: BP 158/70; PULSE 64; RESP 16; TEMP 36.6; O2SAT 98
[2020-05-26] MEDS: Iron Polysaccharide Complex 150 MG CAPSULE PO (07:57)
--- NOTE | 2020-05-26 07:59 | PN_ITS ---
Subjective: Resident seen today for regulatory visit. He is sitting in his recliner in his room. His only complaint is left lower extremity swelling which is new. Vitals/I&O's: Vital Signs Temp Pulse Resp BP Pulse Ox 97.9 F 64 16 158/70 H 98 05/26/20 06:35 05/26/20 06:35 05/26/20 06:35 05/26/20 06:35 05/26/20 06:35 Oxygen Flow Rate (L/min) 2 Oxygen Delivery Method Room Air Weight: 54.431 kg Body Mass Index (BMI) 29.9 Intake and Output for Last 24 Hours 05/24/20 05/25/20 05/26/20 23:59 23:59 23:59 Intake Total 1320 / 1320 1100 / 1100 Balance 1320 / 1320 1100 / 1100 Past Medical History Past Medical History (Chronic Problems): Chronic Problems (Last Reviewed 12/04/19 @ 15:03 by RICK Alcocer) Aortic stenosis (Chronic) DVT (deep venous thrombosis) (Chronic) Anemia (Chronic) Chronic kidney disease (Chronic) Peripheral arterial occlusive disease (Chronic) Thoracic aortic aneurysm (Chronic) Abdominal aortic aneurysm (Chronic) BPH (benign prostatic hyperplasia) (Chronic) Hyperlipidemia (Chronic) Coronary artery disease (Chronic) Hypertension (Chronic) Chronic diastolic heart failure (Chronic) Mixed hyperlipidemia (Chronic) Chronic heart failure with preserved ejection fraction (Chronic) History of aortic valve repair (Chronic ~10/28/07) Hx of repair of ascending aorta (Chronic ~10/28/07) 32mm Hemishield graft 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32 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) Onset Date: ~10/28/07 I71.01 Essential hypertension (Chronic) I10 Atherosclerotic heart disease of [place] coronary artery without angina pectoris (Chronic) I25.10 Tobacco dependence in remission (Chronic) F17.201 Pulmonary embolism (Chronic) I26.99 Hypothyroidism (Chronic) E03.9 Atrial fibrillation (Chronic) 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) I71.3 Squamous cell carcinoma of skin (Inactive) C44.92 Allergies No Known Allergies Allergy (Verified 04/07/20 18:42) Home Medications: Ambulatory Orders Medication Instructions Recorded nitroglycerin 0.4 mg sublingual 0.4 mg SUBLINGUAL Q5-15M PRN 04/23/18 tablet amiodarone 200 mg tablet 200 mg PO DAILY #30 tab 08/26/19 Warfarin [Coumadin] 2 mg PO DAILY@1700 10/14/19 levothyroxine 100 mcg tablet 150 mcg PO DAILY tab 12/04/19 Furosemide 40 mg PO BID 04/07/20 Potassium Chloride 40 meq PO DAILY 04/07/20 Amlodipine [Norvasc] 10 mg PO DAILY 05/02/20 Aspirin [Aspirin, Baby] 81 mg PO DAILY@0800 05/02/20 Carvedilol 12.5 mg PO BID 05/02/20 Clonidine HCl 0.5 tab PO Q12H 05/02/20 Clopidogrel Bisulfate [Plavix] 75 mg PO DAILY 05/02/20 Docusate Sodium 100 mg PO BID 05/02/20 Esomeprazole Mag Trihydrate 40 mg PO DAILY 05/02/20 [Nexium] Furosemide [Lasix] 40 mg PO DAILY@1400 05/02/20 Furosemide [Lasix] 80 mg PO DAILY@0600 05/02/20 Hydralazine HCl 50 mg PO Q8H 05/02/20 Oxycodone [Oxyir] 5 - 10 mg PO Q4H PRN PRN 05/02/20 Rosuvastatin Calcium [Crestor] 10 mg PO QHS 05/02/20 Tamsulosin HCl [Flomax] 0.4 mg PO DAILY 05/02/20 Surgical History: Surgical History (Last Reviewed 12/04/19 @ 15:03 by RICK Alcocer) History of aortic valve repair (Chronic) Onset Date: ~10/28/07 Z98.890, Z86.79 Hx of repair of ascending aorta (Chronic) Onset Date: ~10/28/07 Z98.890 32mm Hem[place]ield graft Presence of stent in coronary artery (Chronic) Onset Date: ~05/24/06 Z95.5 PCI/ILANA of the of 2nd Diagonal instent restenosis 05/24/06 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 Psychiatric History: No pertinent psych hx Lives: Spouse/ Significant Other Smoking Status: Former smoker Tobacco Use: Non-smoker Alcohol: None Drugs: None - *Family History Maternal Family History: Family History (Last Reviewed 12/04/19 @ 15:03 by RICK Alcocer) Grandfather Diabetes Brother Heart disease History Items: No pertinent history Paternal Family History: Family History (Last Reviewed 12/04/19 @ 15:03 by RICK Alcocer) Grandfather Diabetes Brother Heart disease History Items: No pertinent history Offspring Family History: Family History (Last Reviewed 12/04/19 @ 15:03 by RICK Alcocer) Grandfather Diabetes Brother Heart disease History Items: Hypertension, Seizures, - - Intellectual Delay. Capacity - Capacity Assessment Tool Can the patient make a choice & communicate that choice?: Yes Can the patient understand benefits, risks and alternatives?: Yes Can the patient make a logical, rational choice?: Yes Is the choice the patient makes consistent w/ their values?: Yes Is there an impending, emergent risk to the patient?: No Does the patient have an Advance Directive?: Yes Is there a Surrogate Available?: Yes i.e. HCPOA: Yes i.e. close relative (spouse, child, parent, sibling)?: Yes Review of Systems Constitutional: Denies: Chills, Fever, Weight Change HEENT: Denies: Head Aches, Sinus Congestion, Sinus Drainage Cardiovascular: Denies: Chest Pain, Palpitations Respiratory: Denies: Cough, Shortness of breath at rest, Sputum production Gastrointestinal: Denies: Abdominal Pain, Nausea, Vomiting Genitourinary: Denies: Dysuria Musculoskeletal: Denies: Joint Pain, Joint Tenderness Skin: Denies: Rash, Wounds Neurological: Denies: Numbness, Tingling, Focal weakness Psychiatric: Denies: Anxiety, Depression, Homicidal Ideations, Suicidal Ideations Hematologic/ Lymphatic: Denies: Easy Bruising, Easy Bleeding Patient Problems: Active and Suspected Problems (Last Reviewed 12/04/19 @ 15:03 by RICK Alcocer) Fall (Acute) Closed left hip fracture (Acute) Urinary retention (Acute) - Physical Exam Vitals/I&O's: Vital Signs Temp Pulse Resp BP Pulse Ox 97.9 F 64 16 158/70 H 98 05/26/20 06:35 05/26/20 06:35 05/26/20 06:35 05/26/20 06:35 05/26/20 06:35 Oxygen Flow Rate (L/min) 2 Oxygen Delivery Method Room Air Weight: 54.431 kg Body Mass Index (BMI) 29.9 Intake and Output for Last 24 Hours 05/24/20 05/25/20 05/26/20 23:59 23:59 23:59 Intake Total 1320 / 1320 1100 / 1100 Balance 1320 / 1320 1100 / 1100 General: Alert, Oriented x3, Cooperative HEENT: Atraumatic, PERRLA, EOMI, Normocephalic Neck: Supple, No JVD, Negative Carotid Bruits Lungs: Clear to auscultation, Normal air movement Cardiovascular: Regular rate, No murmurs Abdomen: Bowel Sounds Present, Soft, Non Tender Extremities: Capillary Refill Less than 3 Seconds, Edema - 2+ pitting edema left lower extremity. Skin: No rashes, No breakdown Musculoskeletal: No Tenderness to Palpation of Joints or Extremities Neurological: Cranial nerves II-XII grossly intact Psych/Mental Status: Normal Affect, Appropriate Current Medications Acetaminophen (Tylenol) 1,000 mg PO Q6H PRN PRN Reason: Pain Score 1-5/10 Last Admin: 05/15/20 13:18 Dose: 1,000 mg Documented by: Amiodarone HCl (Cordarone) 200 mg PO DAILY [facility] Last Admin: 05/26/20 06:26 Dose: 200 mg Documented by: Atorvastatin Calcium (Lipitor) 20 mg PO QHS [facility] Last Admin: 05/25/20 21:34 Dose: 20 mg Documented by: Bisacodyl (Dulcolax) 10 mg RECTAL DAILY PRN PRN Reason: Constipation Calamine/Phenol (Calmoseptine Ointment) 1 applic TOPICAL BID [facility]; Protocol Last Admin: 05/26/20 06:31 Dose: 1 applicatio Documented by: Carvedilol (Coreg) 12.5 mg PO BID [facility] Last Admin: 05/26/20 06:26 Dose: 12.5 mg Documented by: Clopidogrel Bisulfate (Plavix) 75 mg PO DAILY [facility] Last Admin: 05/26/20 06:26 Dose: 75 mg Documented by: Furosemide (Lasix) 40 mg PO DAILY [facility] Last Admin: 05/26/20 06:26 Dose: 40 mg Documented by: Levothyroxine Sodium (Synthroid) 150 mcg PO DAILY@0600 [facility] Last Admin: 05/26/20 06:26 Dose: 150 mcg Documented by: Melatonin (Melatonin) 10 mg PO QHS [facility] Last Admin: 05/25/20 21:34 Dose: 10 mg Documented by: Multi-Ingredient Cream (Eucerin) 1 applic TOPICAL BID [facility]; Protocol Last Admin: 05/26/20 06:28 Dose: 1 applicatio Documented by: Nitroglycerin (Nitrostat) 0.4 mg SUBLINGUAL Q5M PRN PRN Reason: chest pain (score 1-10/10) Nutritional Formula (Lactose Free) (Ensure Enlive) 120 ml PO DAILY [facility] Last Admin: 05/26/20 06:31 Dose: 120 ml Documented by: Oxycodone HCl (Oxyir) 5 mg PO Q4H PRN PRN PRN Reason: Pain Score 6-10/10 Last Admin: 05/20/20 12:28 Dose: 5 mg Documented by: Pantoprazole Sodium (Protonix) 40 mg PO DAILY [facility] Last Admin: 05/26/20 06:26 Dose: 40 mg Documented by: Polyethylene Glycol (Miralax) 17 gm PO DAILY [facility] Last Admin: 05/26/20 06:27 Dose: Not Given Documented by: Polysaccharide Iron Complex (Ferrex 150) [facility] Last Admin: 05/26/20 07:57 Dose: 150 mg Documented by: Potassium Chloride (K-Dur) 20 meq [facility] Last Admin: 05/26/20 07:57 Dose: 20 meq Documented by: Senna/Docusate Sodium (Senokot-S, Ayala-Colace) 2 tablet PO BID [facility] Last Admin: 05/26/20 06:26 Dose: Not Given Documented by: Tamsulosin HCl (Flomax) 0.4 mg PO DAILY@1730 [facility] Last Admin: 05/25/20 17:53 Dose: 0.4 mg Documented by: Warfarin Sodium (Jantoven) 2.5 mg PO DAILY@1700 [facility] Last Admin: 05/25/20 17:52 Dose: 2.5 mg Documented by: Assessment/Plan All Active Problems (Last Reviewed 12/04/19 @ 15:03 by RICK Alcocer) Fall (Acute) Closed left hip fracture (Acute) Urinary retention (Acute) Hip fracture (Acute) Debility (Acute) Closed right hip fracture (Acute) Thoracic aortic aneurysm, ruptured (Resolved) 80 year old male with below past medical history significant for recent AAA endovascular graft repair, left popliteal stent, hospitalized for left hip fracture, underwent left hip intramedullary nail 04/27/[address] Mcgraw, admitted to TCU with debility, here for rehabilitation, strengthening, prior to discharge home with . * Debility - PT/OT. * Pain - Tylenol 1000MG Q6H PRN pain (1-5), Oxycodone 5MG Q4H PRN pain (6-10). * Bowel - Miralax 17GM daily, Senna/colace 2 tablets twice daily, Dulcolax 10MG [place] daily PRN. * Adult immunization - Administer Prevnar 13, Pneumovax 23, Fluzone as appropriate. * DVT prophylaxis - Not necessary, already on warfarin. * Atrial Fibrillation - Coreg 12.5MG twice daily, Amiodarone 200MG daily, Warfarin 2.5MG daily, INR 1.8. * Hypertension - Coreg 12.5MG BID. * Hyperlipidemia - Atorvastatin 20MG QHS. * Coronary Artery Disease - Coreg 12.5MG twice daily, Plavix 75MG daily, NTG 0.4MG Q5M PRN. * PAOD - Plavix 75MG daily, Warfarin 2MG daily, follow INR. * Acute on chronic diastolic congestive heart failure - Coreg 12.5MG twice daily, Lasix 40MG daily. * Hypothyroidism - Levothyroxine 150MCG daily. * GERD - Pantoprazole 40MG daily. * Hypokalemia - K-Dur 40MEQ daily. * BPH - Tamsulosin 0.4MG daily. * Edema - Doppler ultrasound left lower extremity to evaluate for DVT. * Nutrition - Ensure Enlive 120ML daily. * Iron deficiency anemia - Ferrex 150MG daily. * Skin irritation - Calmoseptine BID, Eucerin BID. * Insomnia - Melatonin 10MG QHS.
[2020-05-26 09:45] VITALS: PULSE 62; RESP 18
--- NOTE | 2020-05-26 13:34 | CASEMGMT ---
Social Work Spoke with pt about request to DC home. Pt agreeable to DC 05/30 and [facility]. Referral made for PT/OT. Referred to [facility] [place] [facility]. to transport pt. CODEY LozanoW
[2020-05-26 13:48] VITALS: BP 124/54; PULSE 68; RESP 18; TEMP 36.8; O2SAT 98
--- NOTE | 2020-05-26 15:43 | NURSING ---
called patent ,no answer left message. called son per patent request and gave him up date and answered questions.
[2020-05-26] MEDS: Tamsulosin HCl 0.4 MG Capsule PO (17:09)
[2020-05-26] MEDS: Atorvastatin Calcium 20 MG Tablet PO (20:55)
[2020-05-26] MEDS: MELATONIN 10 MG TABLET PO (20:55)
--- NOTE | 2020-05-26 21:25 | DCINST_ITS ---
- Discharge Diagnoses Current Active Problems: Current Active and Chronic Problems (Last Reviewed 12/04/19 @ 15:03 by RICK Alcocer) Fall (Acute) Closed left hip fracture (Acute) Aortic stenosis (Chronic) DVT (deep venous thrombosis) (Chronic) Anemia (Chronic) Chronic kidney disease (Chronic) Peripheral arterial occlusive disease (Chronic) Thoracic aortic aneurysm (Chronic) Abdominal aortic aneurysm (Chronic) BPH (benign prostatic hyperplasia) (Chronic) Urinary retention (Acute) You will use the following diet at home:: No restrictions, Regular Your food should be the consistency of: Regular Your liquids should be the consistency of: Regular/Thin Discharge Activity: Return to Normal Activity, May Shower, Use Walker Weight Bearing Status: Weight bearing as tolerated Call your doctor if you observe: Fever of 101 or Higher, Inability to urinate, Inability to have a bowel movement, Shortness of breath, Chest pain, Uncontrolled pain Allergies/Adverse Reactions: Allergies No Known Allergies Allergy (Verified 04/07/20 18:42) Medications to take at Discharge nitroglycerin 0.4 mg sublingual tablet 0.4 mg SUBLINGUAL Q5-15M PRN 04/23/18 amiodarone 200 mg tablet 200 mg PO DAILY #30 tab 08/26/19 levothyroxine 100 mcg tablet 150 mcg PO DAILY tab 12/04/19 Furosemide 40 mg PO BID 04/07/20 Carvedilol 12.5 mg PO BID 05/02/20 Clopidogrel Bisulfate [Plavix] 75 mg PO DAILY 05/02/20 Esomeprazole Mag Trihydrate [Nexium] 40 mg PO DAILY 05/02/20 Rosuvastatin Calcium [Crestor] 10 mg PO QHS 05/02/20 Tamsulosin HCl [Flomax] 0.4 mg PO DAILY 05/02/20 Acetaminophen [Tylenol] 1,000 mg PO Q6H PRN tablet 05/26/20 Iron Polysaccharide Complex [Ferrex 150] 150 mg PO DAILYCM #30 cap 05/26/20 Melatonin 10 mg PO QHS tablet 05/26/20 Menthol/Lanolin/Calamine/Znox [Calmoseptine Ointment] 1 applic TOPICAL BID tube 05/26/20 Mineral Oil/Petrolatum,White [Eucerin] 1 applic TOPICAL BID jar 05/26/20 Potassium Chloride [K-Dur] 20 meq PO DAILYCM tablet 05/26/20 Warfarin [Coumadin] 2.5 mg PO DAILY@1700 #30 tab 05/26/20 The following prescriptions were given: Warfarin [Coumadin] 2.5 mg PO DAILY@1700 #30 tab Transmission Status: Pending to [facility] #30 Iron Polysaccharide Complex [Ferrex 150] 150 mg PO DAILYCM #30 cap Transmission Status: Pending to [facility] #30 Orders to be completed after discharge: Prothrombin Time w/INR Time Frame: 2 Days, Facility: [facility], Location: Laboratory Primary Care Physician: Ihsan Modi MD [Primary Care Provider] - Please follow up with your Primary Care Physician in: 1 week. Test Results: Test results from this visit will be discussed in further detail at your follow- up appointment, if applicable. Please Follow Up With: Nael Gerardo, cardiology When: F/U 1 week after D/C Please Follow Up With: Telly Mcgraw When: [phone] Please Follow Up With: Preston Dumont DPM When: [phone] Proposed Discharge Date: 05/30/20
--- NOTE | 2020-05-26 21:26 | DS.PCM_ITS ---
Discharge Date and Diagnosis - Problem List Patient Problems: Active and Suspected Problems (Last Reviewed 12/04/19 @ 15:03 by RICK Alcocer) Fall (Acute) Closed left hip fracture (Acute) Urinary retention (Acute) Date of Admission: 05/02/20 Date of Discharge: 05/30/20 - Primary Discharge Diagnosis Acute Problems: Active Problems (Last Reviewed 12/04/19 @ 15:03 by RICK Alcocer) Fall (Acute) Closed left hip fracture (Acute) Urinary retention (Acute) - Secondary Discharge Diagnosis Chronic Problems: Chronic Problems (Last Reviewed 12/04/19 @ 15:03 by RICK Alcocer) Aortic stenosis (Chronic) DVT (deep venous thrombosis) (Chronic) Anemia (Chronic) Chronic kidney disease (Chronic) Peripheral arterial occlusive disease (Chronic) Thoracic aortic aneurysm (Chronic) Abdominal aortic aneurysm (Chronic) BPH (benign prostatic hyperplasia) (Chronic) Hyperlipidemia (Chronic) Coronary artery disease (Chronic) Hypertension (Chronic) Chronic diastolic heart failure (Chronic) Mixed hyperlipidemia (Chronic) Chronic heart failure with preserved ejection fraction (Chronic) History of aortic valve repair (Chronic ~10/28/07) Hx of repair of ascending aorta (Chronic ~10/28/07) 32mm [place] graft 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) Essential hypertension (Chronic) Presence of stent in coronary artery (Chronic ~05/24/06) PCI/ILANA of the of 2nd Diagonal instent restenosis 05/24/06 Atherosclerotic heart disease of [place] coronary artery without angina pectoris (Chronic) COPD (chronic obstructive pulmonary disease) (Chronic) Tobacco abuse (Chronic) Tobacco dependence in remission (Chronic) Pulmonary embolism (Chronic) Hypothyroidism (Chronic) Atrial fibrillation (Chronic) Hospital Course and Treatment Imaging Results: 05/02/20 14:10 Diet: Cardiac/Low Cholesterol Food consistency:: Regular Liquid Consistency:: Regular/Thin Is pt able to select menu?: Yes Labs (Last 48 Hours) 05/25/20 05:05 PT 20.2 H INR 1.8 Operations: None Procedures: None Summary of Care Provided: The patient is a 80 year old Male with below past medical history significant for recent AAA endovascular graft repair, left popliteal stent, hospitalized for left hip fracture, underwent left hip intramedullary nail 04/27/[address] Mcgraw, admitted to TCU with debility, here for rehabilitation, strengthening, prior to discharge home with . Discharge home with , [facility] PT/OT, [employer] Wheeled Walker. Patient Problems: Active and Suspected Problems (Last Reviewed 12/04/19 @ 15:03 by RCIK Alcocer) Fall (Acute) Closed left hip fracture (Acute) Urinary retention (Acute) - Physical Exam Vitals/I&O's: Vital Signs Temp Pulse Resp BP Pulse Ox 98.3 F 68 18 124/54 H 98 05/26/20 13:48 05/26/20 13:48 05/26/20 13:48 05/26/20 13:48 05/26/20 13:48 Oxygen Flow Rate (L/min) 2 Oxygen Delivery Method Room Air Weight: 55.792 kg Body Mass Index (BMI) 29.9 Intake and Output for Last 24 Hours 05/24/20 05/25/20 05/26/20 23:59 23:59 23:59 Intake Total 1320 / 1320 1100 / 1100 1080 / 1080 Balance 1320 / 1320 1100 / 1100 1080 / 1080 Current Medications Acetaminophen (Tylenol) 1,000 mg PO Q6H PRN PRN Reason: Pain Score 1-5/10 Last Admin: 05/15/20 13:18 Dose: 1,000 mg Documented by: Amiodarone HCl (Cordarone) 200 mg PO DAILY [facility] Last Admin: 05/26/20 06:26 Dose: 200 mg Documented by: Atorvastatin Calcium (Lipitor) 20 mg PO QHS [facility] Last Admin: 05/26/20 20:55 Dose: 20 mg Documented by: Bisacodyl (Dulcolax) 10 mg RECTAL DAILY PRN PRN Reason: Constipation Calamine/Phenol (Calmoseptine Ointment) 1 applic TOPICAL BID [facility]; Protocol Last Admin: 05/26/20 17:07 Dose: 1 applicatio Documented by: Carvedilol (Coreg) 12.5 mg PO BID [facility] Last Admin: 05/26/20 17:09 Dose: 12.5 mg Documented by: Clopidogrel Bisulfate (Plavix) 75 mg PO DAILY [facility] Last Admin: 05/26/20 06:26 Dose: 75 mg Documented by: Furosemide (Lasix) 40 mg PO DAILY [facility] Last Admin: 05/26/20 06:26 Dose: 40 mg Documented by: Levothyroxine Sodium (Synthroid) 150 mcg PO DAILY@0600 [facility] Last Admin: 05/26/20 06:26 Dose: 150 mcg Documented by: Melatonin (Melatonin) 10 mg PO QHS [facility] Last Admin: 05/26/20 20:55 Dose: 10 mg Documented by: Multi-Ingredient Cream (Eucerin) 1 applic TOPICAL BID [facility]; Protocol Last Admin: 05/26/20 20:56 Dose: 1 applicatio Documented by: Nitroglycerin (Nitrostat) 0.4 mg SUBLINGUAL Q5M PRN PRN Reason: chest pain (score 1-10/10) Nutritional Formula (Lactose Free) (Ensure Enlive) 120 ml PO DAILY [facility] Last Admin: 05/26/20 06:31 Dose: 120 ml Documented by: Oxycodone HCl (Oxyir) 5 mg PO Q4H PRN PRN PRN Reason: Pain Score 6-10/10 Last Admin: 05/20/20 12:28 Dose: 5 mg Documented by: Pantoprazole Sodium (Protonix) 40 mg PO DAILY [facility] Last Admin: 05/26/20 06:26 Dose: 40 mg Documented by: Polyethylene Glycol (Miralax) 17 gm PO DAILY [facility] Last Admin: 05/26/20 06:27 Dose: Not Given Documented by: Polysaccharide [facility] 150[facility] Last Admin: 05/26/20 07:57 Dose: 150 mg Documented by: Potassium Chloride (K-Dur) [facility] Last Admin: 05/26/20 07:57 Dose: 20 meq Documented by: Senna/Docusate Sodium (Senokot-S, Ayala-Colace) 2 tablet PO BID [facility] Last Admin: 05/26/20 17:09 Dose: Not Given Documented by: Tamsulosin HCl (Flomax) 0.4 mg PO DAILY@1730 [facility] Last Admin: 05/26/20 17:09 Dose: 0.4 mg Documented by: Warfarin Sodium (Jantoven) 2.5 mg PO DAILY@1700 [facility] Last Admin: 05/26/20 17:08 Dose: 2.5 mg Documented by: Discharge Diet: No Restrictions Discharge Activity: Return to Normal Activity, May Shower, Use Walker Weight Bearing Status: Weight bearing as tolerated Call your doctor if you observe: Fever of 101 or Higher, Inability to urinate, Inability to have a bowel movement, Shortness of breath, Chest pain, Uncontrolled pain Home Medications: Medications to take at Discharge nitroglycerin 0.4 mg sublingual tablet 0.4 mg SUBLINGUAL Q5-15M PRN 04/23/18 amiodarone 200 mg tablet 200 mg PO DAILY #30 tab 08/26/19 levothyroxine 100 mcg tablet 150 mcg PO DAILY tab 12/04/19 Furosemide 40 mg PO BID 04/07/20 Carvedilol 12.5 mg PO BID 05/02/20 Clopidogrel Bisulfate [Plavix] 75 mg PO DAILY 05/02/20 Esomeprazole Mag Trihydrate [Nexium] 40 mg PO DAILY 05/02/20 Rosuvastatin Calcium [Crestor] 10 mg PO QHS 05/02/20 Tamsulosin HCl [Flomax] 0.4 mg PO DAILY 05/02/20 Acetaminophen [Tylenol] 1,000 mg PO Q6H PRN tablet 05/26/20 Iron Polysaccharide Complex [Ferrex 150] 150 mg PO DAILYCM #30 cap 05/26/20 Melatonin 10 mg PO QHS tablet 05/26/20 Menthol/Lanolin/Calamine/Znox [Calmoseptine Ointment] 1 applic TOPICAL BID tube 05/26/20 Mineral Oil/Petrolatum,White [Eucerin] 1 applic TOPICAL BID jar 05/26/20 Potassium Chloride [K-Dur] 20 meq PO DAILYCM tablet 05/26/20 Warfarin [Coumadin] 2.5 mg PO DAILY@1700 #30 tab 05/26/20 Following Prescriptions Were Given to Patient: Warfarin [Coumadin] 2.5 mg PO DAILY@1700 #30 tab Transmission Status: Pending to [employer] #30 Iron Polysaccharide Complex [Ferrex 150] 150 mg PO DAILYCM #30 cap Transmission Status: Pending to [employer] #30 Other Amb Orders: Prothrombin Time w/INR Time Frame: 2 Days, Facility: [facility], Location: Laboratory Primary Care Physician: Ihsan Modi MD [Primary Care Provider] - Please follow up with your Primary Care Physician in: 1 week. Please Follow Up With: Nael Gerardo, cardiology When: F/U 1 week after D/C Please Follow Up With: Telly Mcgraw When: [phone] Please Follow Up With: Preston Dumont DPM When: [phone] Disposition: Home with Home Health Minutes spent on discharge:: 35 Patient Condition:: Stable Medical Necessity - Tobacco Use Smoking Status: Former smoker Tobacco Use: Non-smoker Meaningful Use Info Meaningful Use Diagnoses (Choose all that apply): None applicable
[2020-05-27 04:00] VITALS: BP 148/58; PULSE 63; RESP 16; TEMP 36.6; O2SAT 98
[2020-05-27] MEDS: Clopidogrel Bisulfate 75 MG Tablet PO (06:13)
[2020-05-27] MEDS: Levothyroxine 150 MCG Tablet PO (06:13)
[2020-05-27] MEDS: Carvedilol 12.5 MG Tablet PO ×2 (06:13→17:15)
[2020-05-27] MEDS: Pantoprazole Sodium 40 MG Tablet PO (06:13)
[2020-05-27] MEDS: Furosemide 40 MG Tablet PO (06:13)
[2020-05-27] MEDS: Amiodarone 200 MG Tablet PO (06:15)
[2020-05-27] MEDS: Menthol/Lanolin/Calamine/Znox 113 GM Tube 1 APPLIC TOPICAL ×2 (06:27→17:16)
[2020-05-27] MEDS: Iron Polysaccharide Complex 150 MG CAPSULE PO (08:03)
--- NOTE | 2020-05-27 11:26 | CASEMGMT ---
BIMS and PHQ9 interviews completed on this date for MDS assessment. CHANNING Burns
[2020-05-27 14:11] VITALS: BP 133/62; PULSE 70; RESP 16; TEMP 36.9; O2SAT 98
[2020-05-27] MEDS: Tamsulosin HCl 0.4 MG Capsule PO (17:15)
[2020-05-27] MEDS: Atorvastatin Calcium 20 MG Tablet PO (21:10)
[2020-05-27] MEDS: MELATONIN 10 MG TABLET PO (21:10)
[2020-05-27 21:12] VITALS: PULSE 70; RESP 16; O2SAT 98
[2020-05-28 04:00] VITALS: BP 169/70; PULSE 60; RESP 16; TEMP 36.9; O2SAT 97
[2020-05-28] MEDS: Carvedilol 12.5 MG Tablet PO ×2 (06:55→17:27)
[2020-05-28] MEDS: Pantoprazole Sodium 40 MG Tablet PO (06:55)
[2020-05-28] MEDS: Levothyroxine 150 MCG Tablet PO (06:55)
[2020-05-28] MEDS: Clopidogrel Bisulfate 75 MG Tablet PO (06:55)
[2020-05-28] MEDS: Amiodarone 200 MG Tablet PO (06:55)
[2020-05-28] MEDS: Furosemide 40 MG Tablet PO (06:56)
[2020-05-28] MEDS: Menthol/Lanolin/Calamine/Znox 113 GM Tube 1 APPLIC TOPICAL ×2 (06:58→17:26)
[2020-05-28 07:49] LABS: International Normalized Ratio 1.9; Prothrombin Time (Protime)PT. 20.9 SECONDS (11.7-14.9)
[2020-05-28] MEDS: Iron Polysaccharide Complex 150 MG CAPSULE PO (07:51)
[2020-05-28 13:53] VITALS: BP 130/60; PULSE 67; RESP 14; TEMP 36.8; O2SAT 97
[2020-05-28] MEDS: Tamsulosin HCl 0.4 MG Capsule PO (17:25)
[2020-05-28] MEDS: Senna/Docusate Sodium 1 Tablet 2 TABLET PO (17:25)
[2020-05-28] MEDS: Atorvastatin Calcium 20 MG Tablet PO (20:23)
[2020-05-28] MEDS: MELATONIN 10 MG TABLET PO (20:23)
[2020-05-29 04:00] VITALS: BP 151/70; PULSE 64; RESP 16; TEMP 36.7; O2SAT 95
[2020-05-29] MEDS: Furosemide 40 MG Tablet PO (06:26)
[2020-05-29] MEDS: Levothyroxine 150 MCG Tablet PO (06:26)
[2020-05-29] MEDS: Clopidogrel Bisulfate 75 MG Tablet PO (06:27)
[2020-05-29] MEDS: Pantoprazole Sodium 40 MG Tablet PO (06:27)
[2020-05-29] MEDS: Amiodarone 200 MG Tablet PO (06:27)
[2020-05-29] MEDS: Carvedilol 12.5 MG Tablet PO ×2 (06:27→17:36)
[2020-05-29] MEDS: Iron Polysaccharide Complex 150 MG CAPSULE PO (07:58)
[2020-05-29] MEDS: Menthol/Lanolin/Calamine/Znox 113 GM Tube 1 APPLIC TOPICAL ×2 (09:13→17:36)
--- NOTE | 2020-05-29 10:54 | MDS.RN ---
Pain interview for jo 05/30/20 completed.
[2020-05-29 13:43] VITALS: BP 141/40; PULSE 64; RESP 14; TEMP 36.6; O2SAT 95
[2020-05-29] MEDS: Tamsulosin HCl 0.4 MG Capsule PO (17:36)
[2020-05-29] MEDS: MELATONIN 10 MG TABLET PO (19:52)
[2020-05-29] MEDS: Atorvastatin Calcium 20 MG Tablet PO (19:53)
[2020-05-30 04:00] VITALS: BP 152/44; PULSE 59; RESP 18; TEMP 36.5; O2SAT 97
[2020-05-30] MEDS: Amiodarone 200 MG Tablet PO (06:07)
[2020-05-30] MEDS: Furosemide 40 MG Tablet PO (06:08)
[2020-05-30] MEDS: Carvedilol 12.5 MG Tablet PO (06:08)
[2020-05-30] MEDS: Clopidogrel Bisulfate 75 MG Tablet PO (06:08)
[2020-05-30] MEDS: Pantoprazole Sodium 40 MG Tablet PO (06:08)
[2020-05-30] MEDS: Levothyroxine 150 MCG Tablet PO (06:08)
[2020-05-30] MEDS: Menthol/Lanolin/Calamine/Znox 113 GM Tube 1 APPLIC TOPICAL (06:12)
[2020-05-30] MEDS: Iron Polysaccharide Complex 150 MG CAPSULE PO (08:09)
[2020-05-30 08:10] VITALS: PULSE 58; RESP 16; O2SAT 97
[2020-05-30 11:38] VITALS: BP 166/50; PULSE 60; RESP 16; TEMP 36.7; O2SAT 97
== END 2020-05-30 11:15 | disposition home health service (06) | DRG 559 ==
PROVIDERS: Admitting Provider Family Medicine Geriatric Medicine; PCP Family Medicine; Visit Provider Family Medicine Geriatric Medicine
DX: S72.002D Fracture of unspecified part of neck of left femur, subsequent encounter for closed fracture with routine healing (principal); I50.33 Acute on chronic diastolic (congestive) heart failure; I13.0 Hypertensive heart and chronic kidney disease with heart failure and stage 1 through stage 4 chronic kidney disease, or unspecified chronic kidney disease; I48.20 Chronic atrial fibrillation, unspecified; W19.XXXD Unspecified fall, subsequent encounter; N18.9 Chronic kidney disease, unspecified; N40.1 Benign prostatic hyperplasia with lower urinary tract symptoms; R33.8 Other retention of urine; I25.10 Atherosclerotic heart disease of native coronary artery without angina pectoris; D50.9 Iron deficiency anemia, unspecified; J44.9 Chronic obstructive pulmonary disease, unspecified; I73.9 Peripheral vascular disease, unspecified; E78.2 Mixed hyperlipidemia; K21.9 Gastro-esophageal reflux disease without esophagitis; E87.6 Hypokalemia; E03.9 Hypothyroidism, unspecified; Z87.891 Personal history of nicotine dependence; Z86.718 Personal history of other venous thrombosis and embolism; Z86.711 Personal history of pulmonary embolism; G47.00 Insomnia, unspecified
CPT/HCPCS: 36415; 80048; 85014; 85018; 85025; 85610; 87635; 93971; 97110; 97116; 97162; 97166; 97530; 97535; 97802; G2023; U0003

== ENCOUNTER → 2020-06-08 12:06 | Outpatient (CLI) | payer MEDICARE, OTHER, SELFPAY ==
[2020-05-02 13:31] VITALS: BMI 29.9
[2020-06-08 16:00] LABS: Absolute Lymphocyte Count 1.06 X10^3/uL (0.83-4.51); Absolute Neutrophil Count 5.3 X10^3/uL (2.0-7.7); Basophil# 0.02 X10^3/uL; Basophil% 0.3 % (0-1); Eosinophil# 0.12 X10^3/uL; Eosinophils% 1.7 % (0-5); Hematocrit 30.5 % (40-54); Hemoglobin 9.2 g/dL (13.0-16.5); Lymphocyte # 1.06 X10^3/ul (4.0); Lymphocyte % 14.9 % (19-41); Mean Corp Hgb Conc 30.2 g/dL (32-36); Mean Corpuscular Volume 92.7 fL (80-94); Mean Platelet Vol. 9.2 fl (6.2-12.0); Monocyte# 0.64 X10^3/uL; NRBC Flagged by Analyzer 0 % (0-5); Neutrophil # 5.26 X10^3/uL (2.7-7.7); Neutrophil % 73.8 % (47-70); Platelet Count 266 K/mm3 (150-450); RBC Distribution Width CV 16.7 % (11.6-14.6); RBC Distribution Width SD 56.9 fl (35.1-43.9); RET-HE 31.1 pg (30-35); Red Blood Count 3.29 M/mm3 (4.6-6.2); Reticulocyte Count 1.49 % (0.5-1.5); White Blood Count 7.1 K/mm3 (4.4-11.0)
[2020-06-08 16:29] LABS: Anion Gap 3 (5-15); BUN 44 mg/dL (7-18); BUN/Creat Ratio 25.1 RATIO (10-20); Calcium,Total 8.6 mg/dL (8.5-10.1); Chloride 110 mmol/L (98-107); Creatinine, Serum 1.75 mg/dL (0.70-1.30); EST Glomerular Filtration Rate 40 mL/min (>60); Est Glom Filt Rate - Afr Amer 49 mL/min (>60); Ferritin 201 ng/mL (26-388); Glucose 102 mg/dL (74-106); Iron 36 ug/dL (65-175); Potassium 4.5 mmol/L (3.5-5.1); Sodium Level 141 mmol/L (136-145); Thyroid Stim Hormone (TSH) 2.21 uIU/mL (0.358-3.74)
== END ==
PROVIDERS: PCP Family Medicine; Referring Provider Family Medicine; Visit Provider Family Medicine
DX: D64.9 Anemia, unspecified (principal); N17.9 Acute kidney failure, unspecified; E03.9 Hypothyroidism, unspecified; Z09 Encounter for follow-up examination after completed treatment for conditions other than malignant neoplasm
CPT/HCPCS: 36415; 80048; 82728; 83540; 84443; 85025; 85045

== ENCOUNTER → 2020-07-14 14:08 | Outpatient (CLI) | payer MEDICARE, OTHER, SELFPAY ==
[2020-06-18 11:14] VITALS: BMI 29.9
[2020-07-14 18:15] LABS: Hematocrit 31.6 % (40-54); Hemoglobin 9.8 g/dL (13.0-16.5); Mean Corpuscular Hgb 27.6 pg (27.0-32.0); Mean Platelet Vol. 9.1 fl (6.2-12.0); Platelet Count 285 K/mm3 (150-450); RBC Distribution Width CV 14.9 % (11.6-14.6); RBC Distribution Width SD 49.2 fl (35.1-43.9); Red Blood Count 3.55 M/mm3 (4.6-6.2); White Blood Count 9.5 K/mm3 (4.4-11.0)
[2020-07-14 18:21] LABS: ALB/GLOB Ratio 0.8 RATIO (0.9-2.4); AST(SGOT) 13 U/L (15-37); Alanine Aminotransfer ALT/SGPT 15 U/L (16-61); Albumin, Serum 3.1 g/dL (3.2-5.0); Alkaline Phosphatase 108 U/L (45-117); Anion Gap 6 (5-15); BUN 37 mg/dL (7-18); BUN/Creat Ratio 23.6 RATIO (10-20); Calcium,Total 8.7 mg/dL (8.5-10.1); Chloride 108 mmol/L (98-107); Creatinine, Serum 1.57 mg/dL (0.70-1.30); EST Glomerular Filtration Rate 46 mL/min (>60); Est Glom Filt Rate - Afr Amer 55 mL/min (>60); Globulin 4.1 g/dL (2.2-4.2); Glucose 85 mg/dL (74-106); Potassium 3.8 mmol/L (3.5-5.1); Protein, Total 7.2 g/dL (6.4-8.2); Sodium Level 141 mmol/L (136-145)
== END ==
PROVIDERS: PCP Family Medicine; Referring Provider Family Medicine; Visit Provider Family Medicine
DX: I50.9 Heart failure, unspecified (principal)
CPT/HCPCS: 80053; 85027

== ENCOUNTER → 2020-07-23 16:28 | Outpatient (CLI) | payer MEDICARE, OTHER, SELFPAY ==
[2020-06-18 11:14] VITALS: BMI 29.9
--- NOTE | 2020-07-23 16:35 | RAD_ITS ---
STUDY: X-RAY - PELVIS AND LEFT HIP REASON FOR EXAM: Male, 80 years old. RECENT HIP SURGERY TO REPAIR FX, SWELLING AND PAIN TECHNIQUE: 3 views of the pelvis and hip. COMPARISON: 04/25/2020 FINDINGS: There is a non-specific bowel gas pattern. Normal visualized soft tissue structures. Normal bilateral iliac wings, sacroiliac joints and visualized sacrum. Normal bilateral superior and inferior pubic rami. Normal pubic symphysis. Normal bilateral ischial tuberosities. Healing fracture the basicervical femoral neck with sclerosis and bony bridging after open reduction internal fixation with a femoral neck compression screw and short intramedullary fanta. Normal acetabulum. Normal hip joint. RAD/HIP, UNI W/ Pelvis 2-3 Views IMPRESSION: Healing fracture the basicervical femoral neck after open reduction and internal fixation. Electronically Signed: Caleb Hinds MD at 17:05 EDT Tel , Service support ,
== END ==
PROVIDERS: PCP Family Medicine; Referring Provider Family Medicine; Visit Provider Family Medicine
DX: M25.552 Pain in left hip (principal)
CPT/HCPCS: 73502

== ENCOUNTER → 2020-08-04 12:59 | Outpatient (CLI) | payer MEDICARE, OTHER, SELFPAY ==
[2020-06-18 11:14] VITALS: BMI 29.9
--- NOTE | 2020-08-04 13:01 | CT_ITS ---
STUDY: CT SCAN LEFT LOWER EXTREMITY LEFT hip REASON FOR EXAM: Male, 80 years old. Left hip pain, osteonecrosis from intertrochanteric femur fracture 04/2020. MAR used. RADIATION DOSAGE (If Supplied By Facility): CTDIvol = ( 12.09 ) mGy, DLP = ( 462.10 ) mGycm. Individualized dose optimization techniques were used for this CT.? TECHNIQUE: Multiple axial tomographic images of the left hip joint were obtained without intravenous contrast administration. Coronal and sagittal reconstruction was obtained as well. COMPARISON: None. FINDINGS: The patient is status post intramedullary fanta and compressive screw fixation of the left intertrochanteric fracture. The intertrochanteric fracture is visualized. Mild degree of bony callus formation. There is flattening of the left femoral head. Mild degree of joint space narrowing. The distal abdominal aorta measures 3.2 cm in transverse dimension. Sigmoid diverticulosis. CT/Extremity Lower without Contra IMPRESSION: Nonunion of the left intertrochanteric fracture. Flattening of the femoral head. Electronically Signed: Milan Cao, at 14:13 EDT , Service support ,
== END ==
PROVIDERS: PCP Family Medicine; Referring Provider Specialist; Visit Provider Specialist
DX: S72.142A Displaced intertrochanteric fracture of left femur, initial encounter for closed fracture (principal); M87.252 Osteonecrosis due to previous trauma, left femur
CPT/HCPCS: 73700

== ENCOUNTER → 2020-08-18 15:00 | Outpatient (CLI) | payer MEDICARE, OTHER, SELFPAY ==
[2020-06-18 11:14] VITALS: BMI 29.9
--- NOTE | 2020-08-18 15:13 | RAD_ITS ---
STUDY: X-RAY CHEST REASON FOR EXAM: Male, 80 years old. CHF TECHNIQUE: PA and lateral COMPARISON: 04/25/2020 FINDINGS: Reticulonodular interstitial infiltrate is noted in the right lower lobe.. There is no demonstrated pleural abnormality. Postsurgical changes status post median sternotomy and CABG. Heart is enlarged. Normal mediastinum and jamal. Normal visualized pulmonary arteries. Tortuous mildly calcified aortic arch and descending thoracic aorta. There are surgical clips projecting over the right upper chest wall and axilla. Normal visualized thoracic spine. Normal visualized ribs, clavicles, and shoulders. Moderate-sized ventral hernia is present. There is no demonstrated abnormality of the visualized soft tissue structures of the upper abdomen. RAD/Chest PA and Lateral IMPRESSION: ASHD and reticulonodular interstitial infiltrate in the right lower lobe possibly pneumonia. No definitive evidence for congestive failure Electronically Signed: Kailash Pedro MD at 15:46 EST , Service support ,
[2020-08-18 17:48] LABS: BNP,B-Type NATRIURETIC PEPTIDE 799.9 pg/mL (0-100)
== END ==
PROVIDERS: PCP Family Medicine; Referring Provider Family Medicine; Visit Provider Family Medicine
DX: I50.9 Heart failure, unspecified (principal)
CPT/HCPCS: 36415; 71046; 83880

== ENCOUNTER 2020-08-26 11:49 | Inpatient (IN) | payer MEDICARE, OTHER, SELFPAY ==
[2020-06-18 11:14] VITALS: BMI 29.9
--- NOTE | 2020-08-08 07:05 | PCM.HP.BLA ---
History and Physical History and Physical [facility] Patient Name: Moises Hernandez : 1940 From: ILDEFONSO MEAD PA-C DATE OF SURGERY: 08/26/2020 SCHEDULED PROCEDURE: left hip removal hardware with left total hip arthroplasty HISTORY OF PRESENT ILLNESS: Preoperative history and physical exam was performed on August 07, 2020. This is a 80-year-old male who is had increased pain for over 3 months. Patient sustained a fall and fracture of the left hip having a surgery with an intramedullary nail at [facility] on April 26, 2020. His pain with activity is 8/10. Pain is increased with any stairs and walking. He does have start up pain. Patient does complain of left groin pain. Patient states the pain occasionally wakes him at night. He does live at home. Patient has attempted postoperative physical therapy, rest, Tylenol, ice. Patient denies any current chest pain, shortness of breath, fevers chills or recent infections. X-rays reveal collapse of the femoral head consistent with avascular necrosis. Patient does have a significant medical history in which we are obtaining surgical clearance from the primary care physician. We have obtain surgical clearance from the upholstery covers inspector Dr. Jones. Patient has cardiac history pertinent for atrial fibrillation, coronary artery disease, previous stents, history of aortic valve replacement, thoracic aortic aneurysm repair, history of pulmonary embolism, and hypertension. He currently is on Coumadin which is managed by his primary care physician. We are getting clearance from the primary care physician Dr. Tidwell for management perioperatively of the Coumadin. After failing conservative measures and discussing treatment options with Dr. Tong Lam, the patient does wish to proceed with removal hardware left hip with left total hip arthroplasty. REVIEW OF SYSTEMS: ROS: Const: Reports anxiety and hard of hearing, but denies anorexia, change in appetite, fever, vision problems and weight change. CV: Denies chest pain, heart murmur, irregular heartbeat and peripheral vascular disease. Resp: Reports cough and pneumonia, but denies asthma, sleep apnea, SOB, tuberculosis and wheezing. GI: Reports diarrhea and vomiting, but denies constipation, difficulty swallowing, heartburn, nausea and bloody stools. : Urinary: denies incontinence. Musculo: Reports leg swelling, but denies limp, trouble walking and weakness. Skin: Denies Raynaud's, history of shingles and tattoo. Neuro: Denies ambulatory dysfunction, dizziness, numbness/tingling and tremor. Psych: Reports depression, but denies anxiety, insomnia, mental illness and stress. Job/Lymph: Reports bleeding/bruising tendency and past transfusion, but denies anemia. Reviewed, no changes. PAST MEDICAL HISTORY: PMH: Problem List: Arthralgia of the pelvic region and thigh, Unsp intracap fx right femur, subs for clos fx w routn heal, Essential hypertension, Prosthetic arthroplasty of the hip, Localized, primary osteoarthritis of the pelvic region and thigh Medical Problems: Arthritis, High Blood Pressure, Coronary Artery Disease (CAD), History Of Phlebitis, Torn Aorta 2007 Two Anerisms - (2019) LOWER AORTA STANT, LT KNEE STANT Accidents: Fracture - LT WRIST, FELL 01-26-11, CURRENT RT Hip FX - (10/11/2019) FALL RT Hand Injury Almost Fell - (08/07/2020) IN [address] Arterial Stents - YEARS AGO Surgical Hx: Hernia Repair - [facility] 1999 Torn Aorta 2007 ,[facility], Stents, 2005, [facility] LT Wrist Closed Reduction - (01/28/2011) [facility] @ [facility] RT THR - (10/11/2019) [facility] @ [facility] RT Wrist Amputation - WORK RELATED LT Hip Sugery - (04/2020) @[facility] Anesthesia Complications: None Assistive Devices: Dentures, Walker Reviewed and updated. SOCIAL HISTORY: SH: Marital: .Occupation: Retired.Work Status: Retired.Hand Dominance: Left-handed. Personal Habits: Cigarette Use: Former.Alcohol: Denies use.Drug Use: Denies Use.Enjoy Exercising: Never Exercises. Reviewed, no changes. VITALS: BP: 130/80 Pulse: 92 Resp: 22 T: 98.8 T: 37.1C Pain Level: 7 ALLERGIES: No Known Drug Allergy MEDICATIONS: Oxycodone HCL 5 mg 1 tab by mouth every 6 hours, Tylenol Extra Strength 500 mg 2 by mouth every 8 hours, Coumadin 3 mg po DIRECTED, Vitamin D3 2000 Unit 1po qday, Amiodarone HCL 200 mg 1po qday, Carvedilol 25 mg 1po bid, Furosemide 40 mg 1po qday, Levothyroxine Sodium 100 mcg 1po qday, Calcium Carbonate 500 mg 1po qday, prn PRE-OP EXAM: General appearance:NORMAL Other: Eyes: Conjunctivae and lids: NORMAL Pupils: ERR Ears, Nose, Mouth, and Throat: NORMAL Other: Inspection of lips, teeth and gums: NORMAL Other: Neck: Examination of neck: no masses noted. Respiratory: Assessment of respiratory effort: NORMAL Other: Auscultation of lungs: clear to auscultation no wheezes, rhonchi or rales. Cardiovascular: Auscultation of heart: regular rate and rhythm, positive murmurs. Exam of carotid arteries: NORMAL Other: Gastrointestinal: Exam of abdomen: soft, nontender, nondistended bowel sounds present. PHYSICAL EXAMINATION: Patient presents in a wheelchair at preoperative visit. Radius left hip incisions are well healed without erythema or signs of infection. Pain is increased with any rotation of the left hip. Sensation intact to light touch. Limited clinical exam. He reports significant pain with ambulation and weightbearing. IMAGING STUDIES: Previous x-rays of the left hip reveal intertrochanteric hip fracture status post short cephalo-medullary nail. There appears to be collapse of the femoral head consistent with avascular necrosis. The fracture is basicervical femoral neck fracture. IMPRESSION: 1. 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 Pulmonary embolism most recent 2019: Currently on Coumadin 3. History of DVT right knee 2008 4. Atrial fibrillation 5. Coronary artery disease 6. Hypertension 7. History of heart stent and aortic valve replacement 8. History of thoracic aortic aneurysm repair 9. History of right popliteal aneurysm repair 2019 PLAN: Dr. Tong Lam did discuss and review with the patient all treatment options including surgical versus nonsurgical options. Patient does wish to proceed with the above-stated procedure. Potential risks, benefits, and complications of the procedure were discussed in detail including but not limited to , infection, nerve and blood vessel damage, persistent pain, numbness, tingling, paresthesias, blood clot, pulmonary embolism, and requirement for possible further surgery. The patient expressed full understanding and has no further questions for the doctor. Patient does agree to proceed with the above-stated procedure and has signed the surgery consent form. We discussed the current risks associated with COVID 19. This does include the risk of exposure while in the hospital. Patient was reassured local hospitals have low infection rates and are taking all necessary precautions to avoid exposure to patients. In addition, we discussed strategies that can be used to help limit exposure including those that limit the patient's time in the hospital. Also using strategies to limit the patient's need for continued inpatient services after being discharged from the hospital. Patient was notified that we will need to comply with any screening or testing the hospital wishes to perform or that surgery may be delayed for any positive results. Will follow recommendation for perioperative Coumadin from primary care physician Dr. Tidwell This dictation was created using voice recognition software. Phonetic and/or grammatical errors may exist. ___ I have re-examined the patient. There are no clinical changes since date of exam. ___ See progress notes for changes. ___ Dictated on admission Date: Time: Signature:
--- NOTE | 2020-08-12 15:20 | EKG12_ITS ---
Test Reason : PRE OP Blood Pressure : / mmHG Vent. Rate : 057 BPM Atrial Rate : 057 BPM P-R Int : 212 ms QRS Dur : 128 ms QT Int : 492 ms P-R-T Axes : 068 -35 074 degrees QTc Int : 478 ms Sinus bradycardia with 1st degree A-V block Left axis deviation Left ventricular hypertrophy with QRS widening and repolarization abnormality Abnormal ECG Confirmed by ZANE BRANNON, MARLENE ([id number]), general expeditor MANUEL CHERRY ([id number]) on 08/14/2020 9:54:37 A M Referred By: BROOKS Confirmed By:ANNA DEGROOT MD
[2020-08-12 15:40] LABS: Absolute Lymphocyte Count 1.39 X10^3/uL (0.83-4.51); Absolute Neutrophil Count 5.2 X10^3/uL (2.0-7.7); Basophil# 0.03 X10^3/uL; Basophil% 0.4 % (0-1); Eosinophil# 0.12 X10^3/uL; Eosinophils% 1.6 % (0-5); Hematocrit 31.6 % (40-54); Hemoglobin 9.9 g/dL (13.0-16.5); Lymphocyte # 1.39 X10^3/ul (4.0); Lymphocyte % 18.8 % (19-41); Mean Corp Hgb Conc 31.3 g/dL (32-36); Mean Corpuscular Volume 89.5 fL (80-94); Mean Platelet Vol. 9.3 fl (6.2-12.0); Monocyte# 0.64 X10^3/uL; Monocyte% 8.7 % (0-10); NRBC Flagged by Analyzer 0 % (0-5); Neutrophil # 5.19 X10^3/uL (2.7-7.7); Neutrophil % 70.2 % (47-70); Platelet Count 280 K/mm3 (150-450); RBC Distribution Width CV 14.9 % (11.6-14.6); RBC Distribution Width SD 49.3 fl (35.1-43.9); Red Blood Count 3.53 M/mm3 (4.6-6.2); White Blood Count 7.4 K/mm3 (4.4-11.0)
[2020-08-12 16:00] LABS: Anion Gap 5 (5-15); BUN 27 mg/dL (7-18); BUN/Creat Ratio 22.5 RATIO (10-20); Calcium,Total 8.5 mg/dL (8.5-10.1); Chloride 108 mmol/L (98-107); EST Glomerular Filtration Rate 62 mL/min (>60); Est Glom Filt Rate - Afr Amer 75 mL/min (>60); Glucose 83 mg/dL (74-106); Potassium 3.7 mmol/L (3.5-5.1); Sodium Level 142 mmol/L (136-145)
[2020-08-12 16:34] LABS: Magnesium 2.2 mg/dL (1.6-2.6); Thyroid Stim Hormone (TSH) 1.98 uIU/mL (0.358-3.74)
[2020-08-20 13:24] LABS: Albumin, Serum 2.9 g/dL (3.2-5.0)
[2020-08-21 14:19] VITALS: BMI 25.4
[2020-08-26] VITALS (11 sets, daily range): BP systolic 116–161; BP diastolic 45–84; PULSE 46–89; RESP 14–18; TEMP 36.1–36.7; O2SAT 96–100; BMI 24.9; BMI 23.3
[2020-08-26 13:00] LABS: Bedside Glucose 74 mg/dL (70-110)
[2020-08-26] MEDS: Lactated Ringers 1,000 ML 999 ML IV ×2 (13:04→18:20)
[2020-08-26] MEDS: Acetaminophen 500 MG Tablet 1000 MG PO ×2 (13:05→22:09)
[2020-08-26] MEDS: Gabapentin 600 MG Tablet PO (13:05)
[2020-08-26 13:40] LABS: Prothrombin Time Fingerstick 27.2 SEC (11.9-14.4)
[2020-08-26 13:54] LABS: International Normalized Ratio 1.2; Prothrombin Time (Protime)PT. 14.9 SECONDS (11.7-14.9)
[2020-08-26] MEDS: Cefazolin 2 GM in 0.9% Normal Saline 100 ML IV (15:05)
[2020-08-26] MEDS: Lactated Ringers 1,000 ML 75 ML IV (15:30)
[2020-08-26] MEDS: Heparin 10,000 UNITS/10 ML Vial 10000 UNITS ×2 (15:50)
--- NOTE | 2020-08-26 17:52 | PCM.OPRPT ---
Report of Operation Date of Procedure: 08/26/20 Pre-Operative Diagnosis: Failed left intertrochanteric hip nail, nonunion with associated avascular necrosis Post-Operative Diagnosis: Failed left intertrochanteric hip nail, nonunion with associated avascular necrosis Surgery/Procedure Performed:: Conversion previous left hip surgery (cephalomedullary nail) 2 left total hip replacement Description of Surgical Findings:: Stable hip. metal filer: Dwain Barlow Type of Anesthesia:: Spinal Anesthesiologist: Michael Giraldo Special Medications: 2 g Ancef, 1 g TXA at incision, 1 g TXA closure, 10 mg Decadron, joint cocktail (5 mg Duramorph, 30 mL of 0.5% Ropivicaine, 1000 units of epinephrine, 30 mg of Toradol) Estimated Blood Loss (mL): 400 Fluids Replaced: 1000 mL crystalloid Description of Procedure: Findings: Adequate reduction with stability of the hip and equal leg lengths measured intraoperatively. Components used: 1. [place] temple modular 18 mm x 155 mm stem, with with 23 mm cone body, +10 2. [place] trident 2 52 mm acetabular shell 2 screws 3. [place] X3 polyethylene liner MDM 4. Cassia Biolox delta 28 mm, 0 mm neck femoral head 5. Metal MDM liner alpha code E Brief history operative indications: 80-year-old male presented to my office after cephalomedullary nail. Went on to nonunion with associated avascular necrosis with CT and radiographic evidence. Risks and benefits were discussed with the patient which included but were not limited to blood loss, DVTs, PEs, infection, neurovascular damage, and dislocation. In light of all this patient did agree to proceed with a total hip arthroplasty. Medical clearance was obtained. Procedure: On the date of procedure the patient's l hip was marked in the preoperative area. Patient was then taken back to the operating room where anesthesia assumed control of the C-spine and airway and administered anesthetic. Patient was transferred to the operating table and placed in the lateral decubitus position with the affected hip up. The patient was secured in the bed with the lateral positioners and leg lengths were checked. The L lower extremity was then prepped out in a sterile fashion using chlorhexidine while the surgeon scrubbed. Upon reentering the room the L lower extremity was draped in the standard orthopedic fashion and the incision was marked. A timeout was called and everyone agreed upon the side, the site, the procedure be performed, antibiotics given, and patient's identity. At this time incision was made through skin, subcutaneous tissue, and fat down to fascia. The fascia was then incised and a Sherieley retractor was placed. At this time we then identified the leg screw and the distal interlocking screw. Once we are able to do this and placed the screwdriver into the leg screw we identified the posterior external rotators. Based on previous scar tissue this was removed as 1 large sleeve and tagged. Once were able to get into the joint we were able to clear the greater trochanteric area and identify the proximal portion of the nail. The central pin was backed out in the helical blade could then be removed from the femoral head. Once this was done the extractor bolt was placed into the proximal portion of the nail and tightened down. We then identified the distal interlocking screw and took this out. Once this was out we are able to extract the nail very easily. The retractors were then placed inside the capsule. The femoral neck was identified and a cleanup cut was made. At this time a power corkscrew was used to remove the femoral head. At this time all bony debris was removed from the acetabulum. Attention was then turned to the femur where the proximal femur was appropriately exposed using a peñaloza retractor. The box loader was used to remove the lateral bone. Canal finder was used to verify the canal. The proximal femoral femur was then sequentially reamed to a size 18 mm reamer which had an appropriate fit. . Our attention was then directed to the acetabulum and the anterior retractor was placed and a Gelpi was used to retract the posterior capsule superiorly. All soft tissue debris was removed from the pulvinar and labrum of the joint. The acetabulum was then sequentially reamed to 52 millimeters. After the 2 areas of bone were prepared the retractors were removed and 6 L of normal saline were irrigated throughout the wound. Retractor was then placed into the wound again for exposure and at this time a and 52 mm Cassia Trident 2 cup was opened and impacted into place. 2 screws were placed orthogonally. Prior to this we did verify the position of the implant using the Au [place] guide. After the 2 screws were placed the MDM liner was put into place. The cup was checked and fastened. Once it was securely fastened our attention was again turned towards the femur the 18 mm stem was impacted into place. The reaming post was placed on the stem and we reamed over the stem to the 23 mm body we had templated. Once this was done the 23 mm +10 mm body trial was put into place and tightened down. We then trialed with a neutral femoral head which gave us appropriate leg lengths and stable hip. The hip was then dislocated. The proximal femur was again exposed and the trial cone body components were removed from the wound. The final components were verified and opened. The wound was copiously irrigated out with normal saline. The acetabulum was checked for any residual debris. The final components were placed and impacted. Traction and external rotation were again used to reduce the hip. After adequate reduction the hip remained stable with appropriate leg lengths. The wound was then copiously irrigated with normal saline once more, and hemostasis was obtained. A 3-minute dilute Betadine lavage and chlorhexidine lavage were performed followed by copious amounts of normal saline. The posterior capsule and piriformis were repaired through drill holes to the greater trochanter . Closure was then done using #1 Vicryl to close the fascia. A 2-0 Vicryl interrupted sutures were used to close the subcutaneous skin. Skin moises were used for final skin closure. A sterile dressing was placed. Patient was awakened by anesthesia and transferred to the [facility]. Patient was then transferred to the PACU for recovery. Postoperative plan: Patient will get 24 hours postop antibiotics. Patient will get in-house physical therapy and will be weight-bear as tolerated. Patient will follow up in office in 2 weeks for a wound check and x-rays. Patient will be resume his normal dose of Coumadin tomorrow as well as Plavix. 3 months of posterior hip precautions. During the course of the procedure the physician sports attorney (PE) played a vital role. Their intimate knowledge of my steps in the procedure aided in safe and expedient completion of the procedure. The PE played a vital rolls in positioning particularly in obtaining the appropriate lateral decubitus. The PE was also vital in the retraction of soft tissues during the exposure and especially the femoral work as this is a vital part of the procedure to prevent complications and fractures. The PE was also vital and protecting soft tissues during times of bony cuts and reaming. He also played a vital role in closure with my direct supervision. The PE was also important during reduction and dislocation of the joint and trials intraoperatively. - Complications No intraoperative complications - Admit VTE Documentation VTE Present on Admission: No VTE Mechan Device Prophylaxis: SCD's, Thigh High MARIUM Hose VTE Pharm Prophylaxis ordered?: Yes
--- NOTE | 2020-08-26 18:20 | RAD_ITS ---
STUDY: X-RAY - PELVIS AND LEFT HIP REASON FOR EXAM: Male, 80 years old. post op left hip TECHNIQUE: 2 views of the pelvis and hip. COMPARISON: Prior pelvis and left hip radiographs 07/23/2020 FINDINGS: Since the prior exam patient has undergone removal of the prior fracture related hardware from the left femur and a total left hip arthroplasty. The standard femoral and tibial components remain located with no disruption of the hardware or periprosthetic fracture. Normal postoperative soft tissue changes. Lateral incision closed with moises. Patient''s prior right hip arthroplasty included in the [id number] appearing intact and unchanged from prior exam. RAD/Hip Min 2 Views (Portable) IMPRESSION: Status post prior fracture related hardware removal and a new left total hip arthroplasty with no untoward bone, joint or hardware findings. Electronically Signed: Kailyn Guzman MD at 19:14 EST , Service support ,
[2020-08-26] MEDS: Lactated Ringers 1,000 ML 125 ML IV (18:49)
--- NOTE | 2020-08-26 20:42 | CON.PCM_ITS ---
Problem List (1) Failed total hip arthroplasty Status: Acute (2) Thoracoabdominal aneurysm Status: Chronic Comment: Placement of a [place] VBX 6 x 29 balloon expandable covered stent into the left renal artery aneurysm and dissection, placement of an 8 x 150 Viabahn to left popliteal aneurysm and left popliteal artery postdilated tension with a 8 x 100 trench digger helper balloon on 04/16/2020 at [facility] with Dr. Brody Scott; (3) Fall Status: Chronic (4) Closed left hip fracture Status: Chronic (5) Aortic stenosis Status: Chronic (6) DVT (deep venous thrombosis) Status: Chronic (7) Anemia Status: Chronic (8) Chronic kidney disease Status: Chronic (9) Peripheral arterial occlusive disease Status: Chronic (10) Thoracic aortic aneurysm Status: Chronic (11) Abdominal aortic aneurysm Status: Chronic Qualifiers: Presence of rupture: without rupture Qualified Code(s): I71.4 - Abdominal aortic aneurysm, without rupture (12) BPH (benign prostatic hyperplasia) Status: Chronic (13) Urinary retention Status: Chronic (14) Hip fracture Status: Chronic (15) Debility Status: Chronic (16) Closed right hip fracture Status: Chronic (17) Hyperlipidemia Status: Chronic Qualifiers: (18) Coronary artery disease Status: Chronic (19) Hypertension Status: Chronic Qualifiers: (20) Chronic diastolic heart failure Status: Chronic (21) Thoracic aortic aneurysm, ruptured Status: Resolved (22) Mixed hyperlipidemia Status: Chronic (23) Chronic heart failure with preserved ejection fraction Status: Chronic (24) History of aortic valve repair Status: Chronic (25) Hx of repair of ascending aorta Status: Chronic Comment: 32mm Hemishield graft (26) 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 transplanted heart: three affiliated heart Qualified Code(s): I25.10 - Atherosclerotic heart disease of three affiliated coronary artery without angina pectoris (30) COPD (chronic obstructive pulmonary disease) Status: Chronic (31) Tobacco abuse Status: Chronic (32) Tobacco dependence in remission Status: Chronic (33) Pulmonary embolism Status: Chronic (34) Hypothyroidism Status: Chronic (35) Atrial fibrillation Status: Chronic Qualifiers: Atrial fibrillation type: paroxysmal Qualified Code(s): I48.0 - Paroxysmal atrial fibrillation Reason for Consult Date of Consultation: 08/26/20 Reason for Consultation: medical managment History of Present Illness: The patient is a 80 year old M with a significant history of CKD; aortic stenosis; abdominal aortic aneurysm; atrial fibrillation; CAD status post stent; PE and DVT who is postop day 0 for Conversion previous left hip surgery (cephalomedullary nail) to left total hip replacement. Internal medicine service has been consulted for medical management. Patient denies any pain or distress. Past Medical History Past Medical History (Chronic Problems): Chronic Problems (Last Reviewed 08/27/20 @ 01:[address] Naveed Rick MD) Thoracoabdominal aneurysm (Chronic) Placement of a [place] VBX 6 x 29 balloon expandable covered stent into the left renal artery aneurysm and dissection, placement of an 8 x 150 Viabahn to left popliteal aneurysm and left popliteal artery postdilated tension with a 8 x 100 trench digger helper balloon on 04/16/2020 at [facility] with Dr. Brody Scott; Fall (Chronic) Closed left hip fracture (Chronic) Aortic stenosis (Chronic) DVT (deep venous thrombosis) (Chronic) Anemia (Chronic) Chronic kidney disease (Chronic) Peripheral arterial occlusive disease (Chronic) Thoracic aortic aneurysm (Chronic) Abdominal aortic aneurysm (Chronic) BPH (benign prostatic hyperplasia) (Chronic) Urinary retention (Chronic) Hip fracture (Chronic) Debility (Chronic) Closed right hip fracture (Chronic) Hyperlipidemia (Chronic) Coronary artery disease (Chronic) Hypertension (Chronic) Chronic diastolic heart failure (Chronic) Mixed hyperlipidemia (Chronic) Chronic heart failure with preserved ejection fraction (Chronic) History of aortic valve repair (Chronic ~10/28/07) Hx of repair of ascending aorta (Chronic ~10/28/07) 32mm Hemishield graft 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) Essential hypertension (Chronic) Presence of stent in coronary artery (Chronic ~05/24/06) PCI/ILANA of the of 2nd Diagonal instent restenosis 05/24/06 Atherosclerotic heart disease of three affiliated coronary artery without angina pectoris (Chronic) COPD (chronic obstructive pulmonary disease) (Chronic) Tobacco abuse (Chronic) Tobacco dependence in remission (Chronic) Pulmonary embolism (Chronic) Hypothyroidism (Chronic) Atrial fibrillation (Chronic) Medical History: Medical History (Last Reviewed 08/27/20 @ 01:[address] 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) Onset Date: ~10/28/07 I71.01 Essential hypertension (Chronic) I10 Atherosclerotic heart disease of three affiliated coronary artery without angina pectoris (Chronic) I25.10 Tobacco dependence in remission (Chronic) F17.201 Pulmonary embolism (Chronic) I26.99 Hypothyroidism (Chronic) E03.9 Atrial fibrillation (Chronic) 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) I71.3 Squamous cell carcinoma of skin (Inactive) C44.92 Allergies No Known Allergies Allergy (Verified 08/21/20 14:15) Home Medications: Ambulatory Orders Medication Instructions Recorded nitroglycerin 0.4 mg sublingual 0.4 mg SUBLINGUAL Q5-15M PRN 04/23/18 tablet amiodarone 200 mg tablet 200 mg PO DAILY #30 tab 08/26/19 levothyroxine 100 mcg tablet 150 mcg PO DAILY tab 12/04/19 Furosemide 40 mg PO DAILY 04/07/20 Rosuvastatin Calcium [Crestor] 10 mg PO QHS 05/02/20 Warfarin [Coumadin] 3 mg PO DAILY@1700 08/17/20 carvedilol 25 mg tablet 25 mg PO BID 08/21/20 cholecalciferol (vitamin D3) 50 50 mcg PO DAILY 08/21/20 mcg (2,000 unit) capsule clopidogrel 75 mg tablet 75 mg PO DAILY 08/21/20 ferrous sulfate 325 mg (65 mg 325 mg PO DAILY 08/21/20 iron) tablet,delayed release folic acid 1 mg tablet 1 mg PO DAILY 08/21/20 Oxycodone [Oxyir] 5 - 10 mg PO Q6H PRN PRN 08/26/20 Potassium 99 mg PO DAILY 08/26/20 Surgical History: Surgical History (Last Reviewed 08/27/20 @ 01:[address] Naveed Rick MD) Thoracoabdominal aneurysm (Chronic) I71.6 Placement of a [place] VBX 6 x 29 balloon expandable covered stent into the left renal artery aneurysm and dissection, placement of an 8 x 150 Viabahn to left popliteal aneurysm and left popliteal artery postdilated tension with a 8 x 100 trench digger helper balloon on 04/16/2020 at [facility] with Dr. 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 Psychiatric History: No pertinent psych hx Smoking Status: Former smoker Tobacco Use: Non-smoker - *Family History Maternal Family History: Family History (Last Reviewed 08/27/20 @ 00:[address] Naveed Rick MD) Grandfather Diabetes Brother Heart disease History Items: No pertinent history Paternal Family History: Family History (Last Reviewed 08/27/20 @ 00:[address] Naveed Rick MD) Grandfather Diabetes Brother Heart disease History Items: No pertinent history Offspring Family History: Family History (Last Reviewed 08/27/20 @ 00:[address] Naveed Rick MD) Grandfather Diabetes Brother Heart disease History Items: Hypertension, Seizures, - - Intellectual Delay. Review of Systems Constitutional: Denies: Chills, Fever, Weight Change HEENT: Denies: Head Aches, Sinus Congestion, Sinus Drainage Cardiovascular: Denies: Chest Pain, Palpitations Respiratory: Denies: Cough, Shortness of breath at rest, Sputum production Gastrointestinal: Denies: Abdominal Pain, Nausea, Vomiting Genitourinary: Denies: Dysuria Musculoskeletal: Denies: Joint Pain, Joint Tenderness Skin: Denies: Rash, Wounds Neurological: Denies: Numbness, Tingling, Focal weakness Psychiatric: Denies: Anxiety, Depression, Homicidal Ideations, Suicidal Ideations Hematologic/ Lymphatic: Denies: Easy Bruising, Easy Bleeding Patient Problems: Active and Suspected Problems (Last Reviewed 08/27/20 @ 01:[address] Naveed Rick MD) Failed total hip arthroplasty (Acute) - Physical Exam Vitals/I&O's: Vital Signs Temp Pulse Resp BP Pulse Ox 97.5 F L 89 18 116/47 L 100 08/26/20 19:52 08/26/20 19:52 08/26/20 20:33 08/26/20 19:52 08/26/20 19:52 Oxygen Flow Rate (L/min) 2 Oxygen Delivery Method Nasal Cannula Weight: 57.9 kg Body Mass Index (BMI) 23.3 Intake and Output for Last 24 Hours 08/24/20 08/25/20 08/26/20 23:59 23:59 23:59 Intake Total 2833.5 / 2833.5 Balance 2833.5 / 2833.5 General: Alert, Oriented x3, Cooperative HEENT: Atraumatic, PERRLA, EOMI, Normocephalic Neck: Supple, No JVD, Negative Carotid Bruits Lungs: Clear to auscultation, Normal air movement Cardiovascular: Normal S1, Normal S2, Bradycardic, Murmur Abdomen: Bowel Sounds Present, Soft, Non Tender Extremities: No edema, Capillary Refill Less than 3 Seconds, - - Amputated of right forearm. Skin: No rashes, No breakdown, - - Dressing on left hip intact. Musculoskeletal: No Tenderness to Palpation of Joints or Extremities Neurological: Cranial nerves II-XII grossly intact Psych/Mental Status: Normal Affect, Appropriate Microbiology Past 72 Hours 08/25/20 12:40 Interface Orders SARS-CoV-2 Antigen (Rapid) - Final Laboratory Results 08/26/20 12:43: POC Glucose 74 08/26/20 13:30: POC PT 27.2 H, INR 2.40 08/26/20 13:36: PT 14.9, INR 1.2 Current Medications Acetaminophen (Acetaminophen 500 Mg Tablet) 1,000 mg PO Q8 SILVERIO Amiodarone HCl (Amiodarone 200 Mg Tablet) 200 mg PO DAILY [facility] Atorvastatin Calcium (Atorvastatin Calcium 20 Mg Tablet) 20 mg PO QHS [facility] Carvedilol (Carvedilol 25 Mg Tablet) 25 mg PO BID [facility] Cholecalciferol (Cholecalciferol (Vit D3) 1,000 Unit (25mcg)) 2,000 unit PO DAILY [facility] Clopidogrel Bisulfate (Clopidogrel Bisulfate 75 Mg Tablet) 75 mg PO DAILY [facility] Enteral Nutritional Formula (Ensure Surgery 237 Ml Liquid) 237 ml PO TIDCM [facility] Famotidine (Famotidine 20 Mg Tablet) 20 mg PO DAILY [facility] Ferrous Sulfate (Ferrous Sulfate 325 Mg Tablet) [facility] Folic Acid (Folic Acid 1 Mg Tablet) 1 mg PO DAILYCM [facility] Furosemide (Furosemide 40 Mg Tablet) 40 mg PO DAILY [facility] Lactated Ringer's () 1,000 mls @ 100 mls/hr IV .Q10H [facility] Cefazolin Sodium () 1 gm in 50 mls @ 150 mls/hr IV Q8H [facility] Stop: 08/27/20 07:19 Ketorolac Tromethamine (Ketorolac 15 Mg/Ml Vial) 15 mg IV Q6H PRN PRN PRN Reason: Pain Score 1-5 Stop: 08/27/20 23:31 Levothyroxine Sodium (Levothyroxine 150 Mcg Tablet) 150 mcg PO DAILY@0600 [facility] Morphine Sulfate (Morphine 2 Mg/Ml Syringe) 2 - 4 mg IV Q2H PRN PRN PRN Reason: Pain Score 4-10 Morphine Sulfate (Morphine 4 Mg/Ml Syringe) 2 - 4 mg IV Q2H PRN PRN PRN Reason: Pain Score 4-10 Nitroglycerin (Nitroglycerin (Inpatient Use) 0.4 Mg Tab.Subl) 0.4 mg SUBLINGUAL Q5M PRN PRN Reason: CARDIAC/CHEST PAIN Ondansetron HCl (Ondansetron 4 Mg/2 Ml Vial) 4 mg IV Q8H PRN PRN PRN Reason: NAUSEA Oxycodone HCl (Oxycodone 5 Mg Tablet) 5 - 10 mg PO Q4H PRN PRN PRN Reason: Pain Score 4-10 Promethazine HCl (Promethazine 25 Mg/Ml Syringe) 12.5 mg IM Q6H PRN PRN; Protocol PRN Reason: NAUSEA/VOMITING Ramipril (Ramipril 10 Mg Capsule) 10 mg PO DAILY [facility] Senna/Docusate Sodium (Senna/Docusate Sodium 1 Tablet) 2 tablet PO BID [facility] Sodium Chloride (0.9% Nacl Peripheral Flush Adult/Peds) 5 - 15 ml IV UD PRN PRN Reason: SALINE FLUSH Sodium Chloride (0.9% Saline Lock 10 Ml Syringe) 10 - 40 ml IV UD PRN PRN Reason: SALINE FLUSH Warfarin Sodium (Warfarin 3 Mg Tablet) 3 mg PO DAILY@1700 [facility] Assessment/Plan All Active Problems (Last Reviewed 08/27/20 @ 01:[address] Naveed Rick MD) Failed total hip arthroplasty (Acute) Thoracic aortic aneurysm, ruptured (Resolved) Conversion of previous left hip surgery (cephalomedullary nail) to left total hip replacement. Postop day 0 On antibiotics (cefazolin) perioperatively. On as needed ketorolac IV; and morphine sulfate IV. On vitamin D Bradycardia Heart rate in 40s to 50s. Hold home carvedilol for now. Resume carvedilol in a.m. if heart rate is more or equal to 60 Check TSH. Hypoxia Required oxygen by simple mask after surgery; and later transitioned to nasal cannula. Likely post-anesthesia effect With Overnight post oximetry. History of atrial fibrillation Amiodarone continued. Warfarin to be resumed in a.m. History of DVT and PE Warfarin to resume in a.m. Daily INR. History of heart failure with preserved ejection fraction On Lasix CAD status post stents On Plavix On Statin. On ALEXANDREA inhibitor Carvedilol as above. Hypertension Blood pressure is elevated Lisinopril continued Resume carvedilol if heart rate is stable. Trend blood pressure and adjust blood pressure medications. Hypothyroidism On Synthroid TSH ordered. DVT prophylaxis SCD and MARIUM goldene in place. Office Visits / Consults: [id number] IP Consult L3
[2020-08-26] MEDS: Lactated Ringers 1,000 ML 100 ML IV (22:08)
[2020-08-26] MEDS: Atorvastatin Calcium 20 MG Tablet PO (22:09)
[2020-08-26] MEDS: Senna/Docusate Sodium 1 Tablet 2 TABLET PO (22:09)
[2020-08-26] MEDS: Cefazolin 1 GM/50 ML BAG IV (23:05)
[2020-08-27] VITALS (10 sets, daily range): BP systolic 106–135; BP diastolic 32–58; PULSE 50–69; RESP 15–18; TEMP 36.3–37; O2SAT 94–100
[2020-08-27] MEDS: Acetaminophen 500 MG Tablet 1000 MG PO ×3 (05:00→20:58)
[2020-08-27] MEDS: Levothyroxine 150 MCG Tablet PO (05:00)
[2020-08-27] MEDS: Cefazolin 1 GM/50 ML BAG IV (06:43)
[2020-08-27 07:31] LABS: Hematocrit 26.4 % (40-54); Hemoglobin 8.1 g/dL (13.0-16.5); Mean Corp Hgb Conc 30.7 g/dL (32-36); Mean Corpuscular Hgb 27.4 pg (27.0-32.0); Mean Corpuscular Volume 89.2 fL (80-94); Mean Platelet Vol. 9.3 fl (6.2-12.0); Platelet Count 251 K/mm3 (150-450); RBC Distribution Width CV 14.6 % (11.6-14.6); RBC Distribution Width SD 47.3 fl (35.1-43.9); Red Blood Count 2.96 M/mm3 (4.6-6.2); White Blood Count 11.8 K/mm3 (4.4-11.0)
--- NOTE | 2020-08-27 07:37 | PCM.PN.HOSP ---
Patient Problems: Active and Suspected Problems (Last Reviewed 08/27/20 @ 01:[address] Naveed Rick MD) Failed total hip arthroplasty (Acute) Reason for Visit: Follow-up on postop management Subjective: Patient was seen and examined. His pain is controlled. He has had episodes of urinary retention requiring straight cath. His repeat bladder scan showed urine less than 180 mls. Denies any fever or chills or chest pain. Objective: Physical exam: General: Alert, Oriented x3, Cooperative HEENT: Atraumatic, PERRLA, EOMI, Normocephalic Neck: Supple, No JVD, Negative Carotid Bruits Lungs: Clear to auscultation, Normal air movement Cardiovascular: Normal S1, Normal S2, Bradycardic, Murmur Abdomen: Bowel Sounds Present, Soft, Non Tender Extremities: No edema, Capillary Refill Less than 3 Seconds, - - Amputated of right forearm. Skin: No rashes, No breakdown, - - Dressing on left hip intact. Musculoskeletal: No Tenderness to Palpation of Joints or Extremities Neurological: Cranial nerves II-XII grossly intact Psych/Mental Status: Normal Affect, Appropriate Vitals/I&O's: Vital Signs Temp Pulse Resp BP Pulse Ox 98.0 F 54 L 18 135/58 H 98 08/27/20 04:30 08/27/20 04:30 08/27/20 04:30 08/27/20 04:30 08/27/20 06:01 Oxygen Flow Rate (L/min) 2 Oxygen Delivery Method Room Air Weight: 57.9 kg Body Mass Index (BMI) 23.3 Intake and Output for Last 24 Hours 08/25/20 08/26/20 08/27/20 23:59 23:59 23:59 Intake Total 3385.16 / 3385.16 813.33 / 813.33 Output Total 275 / 275 Balance 3385.16 / 3385.16 538.33 / 538.33 Microbiology Past 72 Hours 08/25/20 12:40 Interface Orders SARS-CoV-2 Antigen (Rapid) - Final Laboratory Results 08/26/20 12:43: POC Glucose 74 08/26/20 13:30: POC PT 27.2 H, INR 2.40 08/26/20 13:36: PT 14.9, INR 1.2 08/27/20 06:57: WBC 11.8 H, RBC 2.96 L, Hgb 8.1 L, Hct 26.4 L, MCV 89.2, MCH 27.4, MCHC 30.7 L, RDW Std Deviation 47.3 H, RDW Coeff of Ej 14.6, Plt Count 251, MPV 9.3 08/27/20 06:57: Sodium Pending, Potassium Pending, Chloride Pending, Carbon Dioxide Pending, Anion Gap Pending, BUN Pending, Creatinine Pending, Est GFR (MDRD) Af Amer Pending, Est GFR (MDRD) Non-Af Pending, BUN/Creatinine Ratio Pending, Glucose Pending, Calcium Pending, TSH Pending 08/27/20 07:01: PT Pending, INR Pending Current Medications Acetaminophen (Acetaminophen 500 Mg Tablet) 1,000 mg PO Q8 [facility] Last Admin: 08/27/20 05:00 Dose: 1,000 mg Documented by: Amiodarone HCl (Amiodarone 200 Mg Tablet) 200 mg PO DAILY [facility] Atorvastatin Calcium (Atorvastatin Calcium 20 Mg Tablet) 20 mg PO QHS [facility] Last Admin: 08/26/20 22:09 Dose: 20 mg Documented by: Carvedilol (Carvedilol 25 Mg Tablet) 25 mg PO BID [facility] Cholecalciferol (Cholecalciferol (Vit D3) 1,000 Unit (25mcg)) 2,000 unit PO DAILY [facility] Clopidogrel Bisulfate (Clopidogrel Bisulfate 75 Mg Tablet) 75 mg PO DAILY [facility] Enteral Nutritional Formula (Ensure Surgery 237 Ml Liquid) 237 ml PO TIDCM [facility] Famotidine (Famotidine 20 Mg Tablet) 20 mg PO DAILY [facility] Ferrous Sulfate (Ferrous Sulfate 325 Mg Tablet) 325 mg PO DAILYCM [facility] Folic Acid (Folic Acid 1 Mg Tablet) 1 mg PO DAILYCM [facility] Furosemide (Furosemide 40 Mg Tablet) 40 mg PO DAILY [facility] Ketorolac Tromethamine (Ketorolac 15 Mg/Ml Vial) 15 mg IV Q6H PRN PRN PRN Reason: Pain Score 1-5 Stop: 08/27/20 23:31 Levothyroxine Sodium (Levothyroxine 150 Mcg Tablet) 150 mcg PO DAILY@0600 [facility] Last Admin: 08/27/20 05:00 Dose: 150 mcg Documented by: Morphine Sulfate (Morphine 2 Mg/Ml Syringe) 2 - 4 mg IV Q2H PRN PRN PRN Reason: Pain Score 4-10 Morphine Sulfate (Morphine 4 Mg/Ml Syringe) 2 - 4 mg IV Q2H PRN PRN PRN Reason: Pain Score 4-10 Nitroglycerin (Nitroglycerin (Inpatient Use) 0.4 Mg Tab.Subl) 0.4 mg SUBLINGUAL Q5M PRN PRN Reason: CARDIAC/CHEST PAIN Ondansetron HCl (Ondansetron 4 Mg/2 Ml Vial) 4 mg IV Q8H PRN PRN PRN Reason: NAUSEA Oxycodone HCl (Oxycodone 5 Mg Tablet) 5 - 10 mg PO Q4H PRN PRN PRN Reason: Pain Score 4-10 Promethazine HCl (Promethazine 25 Mg/Ml Syringe) 12.5 mg IM Q6H PRN PRN; Protocol PRN Reason: NAUSEA/VOMITING Ramipril (Ramipril 10 Mg Capsule) 10 mg PO DAILY [facility] Senna/Docusate Sodium (Senna/Docusate Sodium 1 Tablet) 2 tablet PO BID [facility] Last Admin: 08/26/20 22:09 Dose: 2 tablet Documented by: Sodium Chloride (0.9% Nacl Peripheral Flush Adult/Peds) 5 - 15 ml IV UD PRN PRN Reason: SALINE FLUSH Sodium Chloride (0.9% Saline Lock 10 Ml Syringe) 10 - 40 ml IV UD PRN PRN Reason: SALINE FLUSH Warfarin Sodium (Warfarin 3 Mg Tablet) 3 mg PO DAILY@1700 [facility] STROKE Vital Signs/Narrative: Vital Signs Temp Pulse Resp BP Pulse Ox 08/27/20 06:01 98 08/27/20 04:30 98.0 F 54 L 18 135/58 H 98 Medical Necessity - Tobacco Use Smoking Status: Former smoker Tobacco Use: Non-smoker Assessment/Plan All Active Problems (Last Reviewed 08/27/20 @ 01:[address] Naveed Rick MD) Failed total hip arthroplasty (Acute) Thoracic aortic aneurysm, ruptured (Resolved) 1. POD#1 status post conversion of left hip cephalomedullary nailing to left total hip replacement Pain is controlled, continue with orthopedic recommendations 2. Urinary retention, likely secondary to probably poor p.o. intake We will continue to monitor, continue on IV fluids If urine retention persists, will start patient on Flomax and would need urology follow-up 3. Acute hypoxic respiratory insufficiency likely secondary to atelectasis Patient is currently on 2 L of oxygen. He was on oxygen at home. We will get chest x-ray, encourage incentive spirometer, wean off for SPO2 more than 94% 4. Bradycardia, heart rate remained stable in the 50s, off carvedilol We will continue to monitor 5. Chronic atrial fibrillation, continue amiodarone INR is 1.2. Resumed on Coumadin. Repeat INR in a.m. 6. History of DVT/PE, INR subtherapeutic, continue warfarin 7. CAD status post stents/heart failure with preserved EF, chronic, Continue Lasix, lisinopril 8. Hypothyroidism, continue on synthroid 9. DVT PPx- on warfarin Inpatient E&M: 05894 Subs Hosp L2
[2020-08-27 07:47] LABS: International Normalized Ratio 1.2; Prothrombin Time (Protime)PT. 14.5 SECONDS (11.7-14.9)
[2020-08-27 08:03] LABS: Anion Gap 6 (5-15); BUN 31 mg/dL (7-18); BUN/Creat Ratio 24.4 RATIO (10-20); Calcium,Total 8.2 mg/dL (8.5-10.1); Chloride 106 mmol/L (98-107); Creatinine, Serum 1.27 mg/dL (0.70-1.30); EST Glomerular Filtration Rate 58 mL/min (>60); Est Glom Filt Rate - Afr Amer 70 mL/min (>60); Estimated Creatinine Clearance 36.42 ml/min; Glucose 142 mg/dL (74-106); Sodium Level 140 mmol/L (136-145); Thyroid Stim Hormone (TSH) 0.65 uIU/mL (0.358-3.74)
--- NOTE | 2020-08-27 09:52 | CASEMGMT ---
Social Work Note ELVIN received message from Perlita in TCU stating pt's family had spoke with TCU staff and requested TCU at discharge for pt. Perlita states pt will need new COVID test. Charge Nurse updated. SW in to speak with pt to complete assessment. ELVIN introduced self and role at [facility]. Pt is alert and oriented, answers questions appropriately. Living Arrangements: Pt states that he lives with his and 8 year old adopted daughter in a two story home. Pt states that he has remained mostly on first floor as steps have been too difficult for pt. Pt states that his oldest son Tab lives alone and lives close to pt and has been able to assist pt. Pt states he has 14 steps to get up to his bedroom and two steps to enter his home. ADLs: Pt states previously independent but then states his and son Tab have been assisting pt. Pt states recent hip pain has made it difficult to manage steps and ambulate PCP: Dr. Modi Pharmacy: [facility] in [place] DME: Pt states he as two walkers and a cane. Pt states he doesn't wear oxygen at home. Substance Abuse Hx: Pt denied Mental Health Hx: Pt states he used to have depression but hasn't had in a long time. HHC: Pt states has used [facility] in the past SNF: Pt denied, Confirms he has been to [facility] in the past SW informed pt that his family had been in contact with [facility] and wanted pt to admit there. Pt confirms this, pt agreeable to [facility]. SW informed pt that [facility] and pt can admit to [facility] when he is medically cleared. Pt states understanding, agreeable to plan. ELVIN spoke with physician, provided transfer to extended care facility document. Pt may be able to discharge to [facility] later today. ELVIN placed a call to Perlita in TCU and updated her pt may discharge to TCU today. Perlita states understanding. Plan: TCU when medically cleared Siobhan Middleton [employer], [employer]
[2020-08-27] MEDS: Ferrous Sulfate 325 MG Tablet PO (10:06)
[2020-08-27] MEDS: Ramipril 10 MG Capsule PO (10:06)
[2020-08-27] MEDS: Folic Acid 1 MG Tablet PO (10:06)
[2020-08-27] MEDS: Senna/Docusate Sodium 1 Tablet 2 TABLET PO (10:07)
[2020-08-27] MEDS: Amiodarone 200 MG Tablet PO (10:07)
[2020-08-27] MEDS: Furosemide 40 MG Tablet PO (10:07)
[2020-08-27] MEDS: Carvedilol 25 MG Tablet PO ×2 (10:07→20:59)
[2020-08-27] MEDS: Clopidogrel Bisulfate 75 MG Tablet PO (10:07)
[2020-08-27] MEDS: Famotidine 20 MG Tablet PO (10:07)
[2020-08-27] MEDS: Ensure Surgery 237 ML LIQUID PO ×3 (10:08→18:24)
--- NOTE | 2020-08-27 10:45 | PN.ORTHO_ITS ---
Patient Problems: Active and Suspected Problems (Last Reviewed 08/27/20 @ 01:[address] Naveed Rick MD) Failed total hip arthroplasty (Acute) Subjective: The patient was sitting in bedside chair upon examination. Patient denies any chest pain, shortness of breath, dizziness, lightheadedness, nausea or vomiting, or calf pain. Pain is controlled on medications. No adverse overnight events. Patient reports he did needed a straight cath. He has had difficulty urinating postoperatively. He is only able to urinate very little. He denies problems previous to surgery with this. Overall the left hip is doing well postoperatively with regards to the pain control. He has been to bedside chair. Plan is for patient to go to the transitional care unit at [facility] upon discharge possibly today. Objective: Vital signs stable and afebrile. Patient is able to plantarflex and dorsiflex actively. Sensation is intact to light touch to saphenous, sural, superficial and deep peroneal, and tibial distribution. Dressing is clean dry and intact. Negative Homans bilaterally, negative signs and symptoms of DVT. - Physical Exam Vitals/I&O's: Vital Signs Temp Pulse Resp BP Pulse Ox 98.5 F 63 15 135/42 H 99 08/27/20 08:00 08/27/20 08:00 08/27/20 08:00 08/27/20 08:00 08/27/20 08:00 Oxygen Flow Rate (L/min) 2 Oxygen Delivery Method Room Air Weight: 57.9 kg Body Mass Index (BMI) 23.3 Intake and Output for Last 24 Hours 08/25/20 08/26/20 08/27/20 23:59 23:59 23:59 Intake Total 3385.16 / 3385.16 813.33 / 813.33 Output Total 275 / 275 Balance 3385.16 / 3385.16 538.33 / 538.33 General: Alert, Oriented x3, Cooperative, No apparent distress Microbiology Past 72 Hours 08/25/20 12:40 Interface Orders SARS-CoV-2 Antigen (Rapid) - Final Laboratory Results 08/26/20 12:43: POC Glucose 74 08/26/20 13:30: POC PT 27.2 H, INR 2.40 08/26/20 13:36: PT 14.9, INR 1.2 08/27/20 06:57: WBC 11.8 H, RBC 2.96 L, Hgb 8.1 L, Hct 26.4 L, MCV 89.2, MCH 27.4, MCHC 30.7 L, RDW Std Deviation 47.3 H, RDW Coeff of Ej 14.6, Plt Count 251, MPV 9.3 08/27/20 06:57: Sodium 140, Potassium 4.0, Chloride 106, Carbon Dioxide 28.0, Anion Gap 6, BUN 31 H, Creatinine 1.27, Estim Creat Clear Calc 36.42, Est GFR (MDRD) Af Amer 70, Est GFR (MDRD) Non-Af 58 L, BUN/Creatinine Ratio 24.4 H, Glucose 142 H, Calcium 8.2 L, TSH 0.65 08/27/20 07:01: PT 14.5, INR 1.2 Current Medications Acetaminophen (Acetaminophen 500 Mg Tablet) 1,000 mg PO Q8 [facility] Last Admin: 08/27/20 05:00 Dose: 1,000 mg Documented by: Amiodarone HCl (Amiodarone 200 Mg Tablet) 200 mg PO DAILY [facility] Last Admin: 08/27/20 10:07 Dose: 200 mg Documented by: Atorvastatin Calcium (Atorvastatin Calcium 20 Mg Tablet) 20 mg PO QHS [facility] Last Admin: 08/26/20 22:09 Dose: 20 mg Documented by: Carvedilol (Carvedilol 25 Mg Tablet) 25 mg PO BID [facility] Last Admin: 08/27/20 10:07 Dose: 25 mg Documented by: Cholecalciferol (Cholecalciferol (Vit D3) 1,000 Unit (25mcg)) 2,000 unit PO DAILY [facility] Last Admin: 08/27/20 10:08 Dose: 2,000 unit Documented by: Clopidogrel Bisulfate (Clopidogrel Bisulfate 75 Mg Tablet) 75 mg PO DAILY [facility] Last Admin: 08/27/20 10:07 Dose: 75 mg Documented by: Enteral Nutritional Formula (Ensure Surgery 237 Ml Liquid) 237 ml PO TIDCM [facility] Last Admin: 08/27/20 10:08 Dose: 237 ml Documented by: Famotidine (Famotidine 20 Mg Tablet) 20 mg PO DAILY [facility] Last Admin: 08/27/20 10:07 Dose: 20 mg Documented by: Ferrous Sulfate (Ferrous Sulfate 325 Mg Tablet) 325 mg PO DAILYCM [facility] Last Admin: 08/27/20 10:06 Dose: 325 mg Documented by: Folic Acid (Folic Acid 1 Mg Tablet) 1 mg PO DAILYCM [facility] Last Admin: 08/27/20 10:06 Dose: 1 mg Documented by: Furosemide (Furosemide 40 Mg Tablet) 40 mg PO DAILY [facility] Last Admin: 08/27/20 10:07 Dose: 40 mg Documented by: Ketorolac Tromethamine (Ketorolac 15 Mg/Ml Vial) 15 mg IV Q6H PRN PRN PRN Reason: Pain Score 1-5 Stop: 08/27/20 23:31 Levothyroxine Sodium (Levothyroxine 150 Mcg Tablet) 150 mcg PO DAILY@0600 [facility] Last Admin: 08/27/20 05:00 Dose: 150 mcg Documented by: Morphine Sulfate (Morphine 2 Mg/Ml Syringe) 2 - 4 mg IV Q2H PRN PRN PRN Reason: Pain Score 4-10 Morphine Sulfate (Morphine 4 Mg/Ml Syringe) 2 - 4 mg IV Q2H PRN PRN PRN Reason: Pain Score 4-10 Nitroglycerin (Nitroglycerin (Inpatient Use) 0.4 Mg Tab.Subl) 0.4 mg SUBLINGUAL Q5M PRN PRN Reason: CARDIAC/CHEST PAIN Ondansetron HCl (Ondansetron 4 Mg/2 Ml Vial) 4 mg IV Q8H PRN PRN PRN Reason: NAUSEA Oxycodone HCl (Oxycodone 5 Mg Tablet) 5 - 10 mg PO Q4H PRN PRN PRN Reason: Pain Score 4-10 Promethazine HCl (Promethazine 25 Mg/Ml Syringe) 12.5 mg IM Q6H PRN PRN; Protocol PRN Reason: NAUSEA/VOMITING Ramipril (Ramipril 10 Mg Capsule) 10 mg PO DAILY [facility] Last Admin: 08/27/20 10:06 Dose: 10 mg Documented by: Senna/Docusate Sodium (Senna/Docusate Sodium 1 Tablet) 2 tablet PO BID [facility] Last Admin: 08/27/20 10:07 Dose: 2 tablet Documented by: Sodium Chloride (0.9% Nacl Peripheral Flush Adult/Peds) 5 - 15 ml IV UD PRN PRN Reason: SALINE FLUSH Sodium Chloride (0.9% Saline Lock 10 Ml Syringe) 10 - 40 ml IV UD PRN PRN Reason: SALINE FLUSH Warfarin Sodium (Warfarin 3 Mg Tablet) 3 mg PO DAILY@1700 [facility] Medical Necessity - Tobacco Use Smoking Status: Former smoker Tobacco Use: Non-smoker Assessment/Plan All Active Problems (Last Reviewed 08/27/20 @ 01:[address] Naveed Rick MD) Failed total hip arthroplasty (Acute) Thoracic aortic aneurysm, ruptured (Resolved) 1. S/P conversion previous left hip surgery cephalomedullary nail to a left total hip arthroplasty POD #1 2. Continue Pain Medications: Tylenol and oxycodone 3. DVT Prophylaxis: Patient has been placed back on his Coumadin 4. PT/OT: Patient will be weightbearing as tolerated on the left lower extremity. Continue with posterior hip precautions for 3 months postop eratively. 5. H & H: 8.1/26.4, asymptomatic. Post operative anemia secondary to surgical blood loss without intraoperative complications 6. Reactive leukocytosis: Currently 11.8, afebrile. Patient did receive Decadron intraoperatively 7. Encouraged Incentive Spirometry 8. Continue postoperative medical management per medicine: Case was discussed with Dr. Max. Patient has some urinary retention and initially told me that he never had problems in the past. However looking upon consultation note patient has history of BPH and urinary retention in the past. Upon discussion with the patient he states he has seen a urologist previously but has not on any current medications. Due to the urinary retention patient will stay an additional day and we will watch this closely. Patient may have to be placed on medication. 9. Disposition: Plan will be for possible discharge to the transitional care unit tomorrow.
[2020-08-27 14:29] LABS: Hematocrit 25.2 % (40-54); Hemoglobin 7.8 g/dL (13.0-16.5)
[2020-08-27] MEDS: 0.9% Normal Saline 1,000 ML 100 ML IV (14:35)
[2020-08-27] MEDS: Calcium Carbonate 500 MG Tablet PO ×2 (14:58→20:58)
--- NOTE | 2020-08-27 15:34 | RAD_ITS ---
STUDY: X-RAY CHEST REASON FOR EXAM: Male, 80 years old. HYPOXIA TECHNIQUE: 1 view COMPARISON: Prior chest radiograph of 08/18/2020, 04/25/2020 and 10/17/2019 FINDINGS: Lung alonzo are well-expanded with stable chronic changes without new consolidation, focal atelectasis or pleural effusion. Cardiomegaly status post prior midline sternotomy. Large hiatal hernia. Normal visualized pulmonary arteries. There is atherosclerotic calcification of the aortic arch with tortuosity. There is demineralization of the osseous structures. High riding left humerus with erosion of the acromium and distal clavicle consistent with changes secondary to chronic rotator cuff tear. Surgical moises in the right axilla RAD/Chest 1 View (Portable) IMPRESSION: Continued cardiomegaly and stable chronic lung changes without new consolidation, other infiltrates or a substantial pleural effusion. Status post prior midline sternotomy. Electronically Signed: Kailyn Guzman MD at 15:54 EST , Service support ,
[2020-08-27] MEDS: Atorvastatin Calcium 20 MG Tablet PO (20:59)
[2020-08-28] VITALS (9 sets, daily range): BP systolic 119–159; BP diastolic 41–49; PULSE 51–63; RESP 16–18; TEMP 36.3–36.9; O2SAT 95–98
[2020-08-28] MEDS: 0.9% Normal Saline 1,000 ML 100 ML IV (00:13)
[2020-08-28] MEDS: Levothyroxine 150 MCG Tablet PO (05:10)
[2020-08-28] MEDS: Acetaminophen 500 MG Tablet 1000 MG PO ×2 (05:10→13:09)
--- NOTE | 2020-08-28 06:31 | PN.ORTHO_ITS ---
Patient Problems: Active and Suspected Problems (Last Reviewed 08/27/20 @ 01:[address] Naveed Rick MD) Failed total hip arthroplasty (Acute) Subjective: The patient was sitting in bed upon examination. Patient denies any chest pain, shortness of breath, dizziness, lightheadedness, nausea or vomiting, or calf pain. Pain is controlled on medications. No adverse overnight events. Patient states overall he is doing very well with regards to his left hip. His only complaint is stiffness. He has been up to the bathroom with no significant complications. He denies any chest pain, shortness of breath, racing heart, dizziness or lightheadedness. No episodes of feeling like he is going to pass out. Repeat hemoglobin was obtained by the hospitalist yesterday and was 7.8. Lab work has not been drawn yet this morning. Objective: Vital signs stable and afebrile. Patient is able to plantarflex and dorsiflex actively. Sensation is intact to light touch to saphenous, sural, superficial and deep peroneal, and tibial distribution. Dressing is clean dry and intact. Negative Homans bilaterally, negative signs and symptoms of DVT. - Physical Exam Vitals/I&O's: Vital Signs Temp Pulse Resp BP Pulse Ox 97.5 F L 58 L 16 119/43 L 98 08/28/20 02:51 08/28/20 02:51 08/28/20 02:51 08/28/20 02:51 08/28/20 02:51 Oxygen Flow Rate (L/min) 2 Oxygen Delivery Method Room Air Weight: 57.9 kg Body Mass Index (BMI) 23.3 Intake and Output for Last 24 Hours 08/26/20 08/27/20 08/28/20 23:59 23:59 23:59 Intake Total 3385.16 / 3385.16 1413.33 / 1413.33 963.33 / 963.33 Output Total 475 / 475 700 / 700 Balance 3385.16 / 3385.16 938.33 / 938.33 263.33 / 263.33 General: Alert, Oriented x3, Cooperative, No apparent distress Microbiology Past 72 Hours 08/25/20 12:40 Interface Orders SARS-CoV-2 Antigen (Rapid) - Final Laboratory Results 08/27/20 06:57: WBC 11.8 H, RBC 2.96 L, Hgb 8.1 L, Hct 26.4 L, MCV 89.2, MCH 27.4, MCHC 30.7 L, RDW Std Deviation 47.3 H, RDW Coeff of Ej 14.6, Plt Count 251, MPV 9.3 08/27/20 06:57: Sodium 140, Potassium 4.0, Chloride 106, Carbon Dioxide 28.0, Anion Gap 6, BUN 31 H, Creatinine 1.27, Estim Creat Clear Calc 36.42, Est GFR (MDRD) Af Amer 70, Est GFR (MDRD) Non-Af 58 L, BUN/Creatinine Ratio 24.4 H, Glucose 142 H, Calcium 8.2 L, TSH 0.65 08/27/20 07:01: PT 14.5, INR 1.2 08/27/20 11:20: COVID-19 ([facility]) Not Detected 08/27/20 14:12: Hgb 7.8 L, Hct 25.2 L Current Medications Acetaminophen (Acetaminophen 500 Mg Tablet) 1,000 mg PO Q8 [facility] Last Admin: 08/28/20 05:10 Dose: 1,000 mg Documented by: Amiodarone HCl (Amiodarone 200 Mg Tablet) 200 mg PO DAILY [facility] Last Admin: 08/27/20 10:07 Dose: 200 mg Documented by: Atorvastatin Calcium (Atorvastatin Calcium 20 Mg Tablet) 20 mg PO QHS [facility] Last Admin: 08/27/20 20:59 Dose: 20 mg Documented by: Calcium Carbonate (Calcium Carbonate 500 Mg Tablet) 500 mg PO Q6H PRN PRN PRN Reason: HEARTBURN Last Admin: 08/27/20 20:58 Dose: 500 mg Documented by: Carvedilol (Carvedilol 25 Mg Tablet) 25 mg PO BID [facility] Last Admin: 08/27/20 20:59 Dose: 25 mg Documented by: Cholecalciferol (Cholecalciferol (Vit D3) 1,000 Unit (25mcg)) 2,000 unit PO DAILY [facility] Last Admin: 08/27/20 10:08 Dose: 2,000 unit Documented by: Clopidogrel Bisulfate (Clopidogrel Bisulfate 75 Mg Tablet) 75 mg PO DAILY [facility] Last Admin: 08/27/20 10:07 Dose: 75 mg Documented by: Enteral Nutritional Formula (Ensure Surgery 237 Ml Liquid) 237 ml PO TIDCM [facility] Last Admin: 08/27/20 18:24 Dose: 237 ml Documented by: Famotidine (Famotidine 20 Mg Tablet) 20 mg PO DAILY [facility] Last Admin: 08/27/20 10:07 Dose: 20 mg Documented by: Ferrous Sulfate ([facility] 325 Mg [facility]) [facility] Admin: 08/27/20 10:06 Dose: 325 mg Documented by: Folic Acid (Folic Acid 1 Mg Tablet) [facility] Last Admin: 08/27/20 10:06 Dose: 1 mg Documented by: Furosemide (Furosemide 40 Mg Tablet) 40 mg PO DAILY [facility] Last Admin: 08/27/20 10:07 Dose: 40 mg Documented by: Levothyroxine Sodium (Levothyroxine 150 Mcg Tablet) 150 mcg PO DAILY@0600 [facility] Last Admin: 08/28/20 05:10 Dose: 150 mcg Documented by: Morphine Sulfate (Morphine 2 Mg/Ml Syringe) 2 mg IV Q2H PRN PRN PRN Reason: Pain Score 4-10 Nitroglycerin (Nitroglycerin (Inpatient Use) 0.4 Mg Tab.Subl) 0.4 mg SUBLINGUAL Q5M PRN PRN Reason: CARDIAC/CHEST PAIN Ondansetron HCl (Ondansetron 4 Mg/2 Ml Vial) 4 mg IV Q8H PRN PRN PRN Reason: NAUSEA Oxycodone HCl (Oxycodone 5 Mg Tablet) 5 - 10 mg PO Q4H PRN PRN PRN Reason: Pain Score 4-10 Promethazine HCl (Promethazine 25 Mg/Ml Syringe) 12.5 mg IM Q6H PRN PRN; Protocol PRN Reason: NAUSEA/VOMITING Ramipril (Ramipril 10 Mg Capsule) 10 mg PO DAILY [facility] Last Admin: 08/27/20 10:06 Dose: 10 mg Documented by: Senna/Docusate Sodium (Senna/Docusate Sodium 1 Tablet) 2 tablet PO BID [facility] Last Admin: 08/27/20 21:00 Dose: Not Given Documented by: Sodium Chloride (0.9% Nacl Peripheral Flush Adult/Peds) 5 - 15 ml IV UD PRN PRN Reason: SALINE FLUSH Sodium Chloride (0.9% Saline Lock 10 Ml Syringe) 10 - 40 ml IV UD PRN PRN Reason: SALINE FLUSH Warfarin Sodium (Warfarin 3 Mg Tablet) 3 mg PO DAILY@1700 [facility] Last Admin: 08/27/20 18:24 Dose: 3 mg Documented by: Medical Necessity - Tobacco Use Smoking Status: Former smoker Tobacco Use: Non-smoker Assessment/Plan All Active Problems (Last Reviewed 08/27/20 @ 01:[address] Naveed Rick MD) Failed total hip arthroplasty (Acute) Thoracic aortic aneurysm, ruptured (Resolved) 1. S/P conversion previous left hip surgery cephalomedullary nail to a left total hip arthroplasty POD #2 2. Continue Pain Medications: Tylenol and oxycodone 3. DVT Prophylaxis: Patient has been placed back on his Coumadin. Transitional care unit we will continue to monitor INR having patient get back to therapeutic level of 2.0-3.0 4. PT/OT: Patient will be weightbearing as tolerated on the left lower extremity. Continue with posterior hip precautions for 3 months postoperatively. 5. Acute on chronic anemia: H & H: Yesterday lab work was 7.8/25.2, asymptomatic. Post operative anemia secondary to surgical blood loss without intraoperative complications. Lab work has not been drawn this morning. We will continue to monitor 6. Reactive leukocytosis: Yesterday 11.8, afebrile. Patient did receive Decadron intraoperatively 7. Encouraged Incentive Spirometry 8. Continue postoperative medical management per medicine: Patient was able to urinate on his own. I do feel upon discharge patient should follow-up with his urologist. We will continue to monitor his hemoglobin this morning. He is currently asymptomatic with his vitals and clinically. Patient does have acute on chronic anemia. He currently takes ferrous sulfate and folic acid. 9. Disposition: Plan will be for possible discharge to the transitional care unit today. Prescription will be attached to chart. Patient will follow-up per postop instructions. I have reviewed the [place] Automated Rx Reporting System (OARRS) report for this patient for refill pattern and other prescriber involvement as part of the appropriate surveillance for the provision of acute and chronic controlled medications. The report was requested and reviewed on the date of this entry and was considered in the prescribing process.
--- NOTE | 2020-08-28 06:45 | DCINST_ITS ---
Discharge Diet: No Restrictions Discharge Activity: May Not Drive - while taking narcotic pain medications. May shower in (days): 1 - Dressing must be intact to skin, turn dressing away from water. Ice area for (Minutes): 20 - Every 1-2 hours while awake Weight Bearing Status: Weight bearing as tolerated - With walker Elevate: Operative Extremity Additional Activity Instructions:: Wear elastic stockings for 2 weeks. DO NOT use alcohol with narcotic pain medication. DO NOT make important decisions while taking narcotic medication. If you have problems with taking your medication (rash, itching, nausea, etc.) call the office at once. Call your doctor if your incision/area has: Increased Pain/ Swelling, Increased Redness, Foul Smelling Discharge Call your doctor if you observe: Fever of 101 or Higher Remove Dressing in (days):: 4 - Okay to remove dressing on September 01, 2020 Additional Instructions: Physical therapy/Occupational Therapy: Weightbearing as tolerated with walker, posterior hip dislocation precautions for 3 months postoperatively Follow orthopedic postop instructions Allergies/Adverse Reactions: Allergies No Known Allergies Allergy (Verified 08/21/20 14:15) Medications to take at Discharge nitroglycerin 0.4 mg sublingual tablet 0.4 mg SUBLINGUAL Q5-15M PRN 04/23/18 amiodarone 200 mg tablet 200 mg PO DAILY #30 tab 08/26/19 levothyroxine 100 mcg tablet 150 mcg PO DAILY tab 12/04/19 Furosemide 40 mg PO DAILY 04/07/20 Rosuvastatin Calcium [Crestor] 10 mg PO QHS 05/02/20 Warfarin [Coumadin] 3 mg PO DAILY@1700 08/17/20 carvedilol 25 mg tablet 25 mg PO BID 08/21/20 cholecalciferol (vitamin D3) 50 mcg (2,000 unit) capsule 50 mcg PO DAILY 08/21/20 clopidogrel 75 mg tablet 75 mg PO DAILY 08/21/20 ferrous sulfate 325 mg (65 mg iron) tablet,delayed release 325 mg PO DAILY 08/21/20 folic acid 1 mg tablet 1 mg PO DAILY 08/21/20 Potassium 99 mg PO DAILY 08/26/20 Acetaminophen [Tylenol] 1,000 mg PO Q8 14 Days tab 08/28/20 Calcium Carbonate [Tums] 500 mg PO Q6H PRN PRN tab 08/28/20 Oxycodone [Oxyir] 5 - 10 mg PO Q4H PRN PRN 3 Days #36 tab 08/28/20 Ramipril [Altace] 10 mg PO DAILY cap 08/28/20 The following prescriptions were given: Oxycodone [Oxyir] 5 - 10 mg PO Q4H PRN PRN 3 Days #36 tab PRN Reason: Pain Score 4-10 Prescription Printed Primary Care Physician: Ihsan Modi MD [Primary Care Provider] - Test Results: Test results from this visit will be discussed in further detail at your follow- up appointment, if applicable. Please Follow Up With: Dwain Barlow PA-C When: 09/07/20 @ 2:30 pm
--- NOTE | 2020-08-28 07:24 | PN_ITS ---
Patient Problems: Active and Suspected Problems (Last Reviewed 08/27/20 @ 01:[address] Naveed Rick MD) Failed total hip arthroplasty (Acute) Reason for Visit: Follow-up on postop management Subjective: Patient was seen and examined. He denied any complaints except for sensation of tightness around his left hip. Denies any chest pain, dizziness or palpitations. Objective: Physical exam: General: Alert, Oriented x3, Cooperative, sitting in a chair HEENT: Atraumatic, PERRLA, EOMI, Normocephalic Neck: Supple, No JVD, Negative Carotid Bruits Lungs: Clear to auscultation, Normal air movement Cardiovascular: Normal S1, Normal S2, Bradycardic, Murmur Abdomen: Bowel Sounds Present, Soft, Non Tender Extremities: No edema, Capillary Refill Less than 3 Seconds, - - Amputated of right forearm. Skin: No rashes, No breakdown, - - Dressing on left hip intact. Musculoskeletal: No Tenderness to Palpation of Joints or Extremities Neurological: Cranial nerves II-XII grossly intact Psych/Mental Status: Normal Affect, Appropriate Vitals/I&O's: Vital Signs Temp Pulse Resp BP Pulse Ox 97.5 F L 58 L 16 119/43 L 98 08/28/20 02:51 08/28/20 02:51 08/28/20 02:51 08/28/20 02:51 08/28/20 02:51 Oxygen Flow Rate (L/min) 2 Oxygen Delivery Method Room Air Weight: 57.9 kg Body Mass Index (BMI) 23.3 Intake and Output for Last 24 Hours 08/26/20 08/27/20 08/28/20 23:59 23:59 23:59 Intake Total 3385.16 / 3385.16 1413.33 / 1413.33 963.33 / 963.33 Output Total 475 / 475 700 / 700 Balance 3385.16 / 3385.16 938.33 / 938.33 263.33 / 263.33 Microbiology Past 72 Hours 08/25/20 12:40 Interface Orders SARS-CoV-2 Antigen (Rapid) - Final Laboratory Results 08/27/20 06:57: WBC 11.8 H, RBC 2.96 L, Hgb 8.1 L, Hct 26.4 L, MCV 89.2, MCH 27.4, MCHC 30.7 L, RDW Std Deviation 47.3 H, RDW Coeff of Ej 14.6, Plt Count 251, MPV 9.3 08/27/20 06:57: Sodium 140, Potassium 4.0, Chloride 106, Carbon Dioxide 28.0, Anion Gap 6, BUN 31 H, Creatinine 1.27, Estim Creat Clear Calc 36.42, Est GFR (MDRD) Af Amer 70, Est GFR (MDRD) Non-Af 58 L, BUN/Creatinine Ratio 24.4 H, Glucose 142 H, Calcium 8.2 L, TSH 0.65 08/27/20 07:01: PT 14.5, INR 1.2 08/27/20 11:20: COVID-19 ([facility]) Not Detected 08/27/20 14:12: Hgb 7.8 L, Hct 25.2 L 08/28/20 06:48: WBC Pending, RBC Pending, Hgb Pending, Hct Pending, MCV Pending, MCH Pending, MCHC Pending, RDW Std Deviation Pending, RDW Coeff of Ej Pending, Plt Count Pending 08/28/20 06:48: PT Pending, INR Pending 08/28/20 06:48: Sodium Pending, Potassium Pending, Chloride Pending, Carbon Dioxide Pending, Anion Gap Pending, BUN Pending, Creatinine Pending, Est GFR (MDRD) Af Amer Pending, Est GFR (MDRD) Non-Af Pending, BUN/Creatinine Ratio Pending, Glucose Pending, Calcium Pending, Total Bilirubin Pending, AST Pending, ALT Pending, Alkaline Phosphatase Pending, Total Protein Pending, Albumin Pending Current Medications Acetaminophen (Acetaminophen 500 Mg Tablet) 1,000 mg PO Q8 [facility] Last Admin: 08/28/20 05:10 Dose: 1,000 mg Documented by: Amiodarone HCl (Amiodarone 200 Mg Tablet) 200 mg PO DAILY [facility] Last Admin: 08/27/20 10:07 Dose: 200 mg Documented by: Atorvastatin Calcium (Atorvastatin Calcium 20 Mg Tablet) 20 mg PO QHS [facility] Last Admin: 08/27/20 20:59 Dose: 20 mg Documented by: Calcium Carbonate (Calcium Carbonate 500 Mg Tablet) 500 mg PO Q6H PRN PRN PRN Reason: HEARTBURN Last Admin: 08/27/20 20:58 Dose: 500 mg Documented by: Carvedilol (Carvedilol 25 Mg Tablet) 25 mg PO BID [facility] Last Admin: 08/27/20 20:59 Dose: 25 mg Documented by: Cholecalciferol (Cholecalciferol (Vit D3) 1,000 Unit (25mcg)) 2,000 unit PO DAILY [facility] Last Admin: 08/27/20 10:08 Dose: 2,000 unit Documented by: Clopidogrel Bisulfate (Clopidogrel Bisulfate 75 Mg Tablet) 75 mg PO DAILY [facility] Last Admin: 08/27/20 10:07 Dose: 75 mg Documented by: Enteral Nutritional Formula (Ensure Surgery 237 Ml Liquid) 237 ml PO TIDCM [facility] Last Admin: 08/27/20 18:24 Dose: 237 ml Documented by: Famotidine (Famotidine 20 Mg Tablet) 20 mg PO DAILY [facility] Last Admin: 08/27/20 10:07 Dose: 20 mg Documented by: Ferrous Sulfate (Ferrous Sulfate 325 Mg Tablet) 325 mg PO DAILYCM [facility] Last Admin: 08/27/20 10:06 Dose: 325 mg Documented by: Folic Acid (Folic Acid 1 Mg Tablet) 1 mg PO DAILYCM [facility] Last Admin: 08/27/20 10:06 Dose: 1 mg Documented by: Furosemide (Furosemide 40 Mg Tablet) 40 mg PO DAILY [facility] Last Admin: 08/27/20 10:07 Dose: 40 mg Documented by: Levothyroxine Sodium (Levothyroxine 150 Mcg Tablet) 150 mcg PO DAILY@0600 [facility] Last Admin: 08/28/20 05:10 Dose: 150 mcg Documented by: Morphine Sulfate (Morphine 2 Mg/Ml Syringe) 2 mg IV Q2H PRN PRN PRN Reason: Pain Score 4-10 Nitroglycerin (Nitroglycerin (Inpatient Use) 0.4 Mg Tab.Subl) 0.4 mg SUBLINGUAL Q5M PRN PRN Reason: CARDIAC/CHEST PAIN Ondansetron HCl (Ondansetron 4 Mg/2 Ml Vial) 4 mg IV Q8H PRN PRN PRN Reason: NAUSEA Oxycodone HCl (Oxycodone 5 Mg Tablet) 5 - 10 mg PO Q4H PRN PRN PRN Reason: Pain Score 4-10 Promethazine HCl (Promethazine 25 Mg/Ml Syringe) 12.5 mg IM Q6H PRN PRN; Protocol PRN Reason: NAUSEA/VOMITING Ramipril (Ramipril 10 Mg Capsule) 10 mg PO DAILY [facility] Last Admin: 08/27/20 10:06 Dose: 10 mg Documented by: Senna/Docusate Sodium (Senna/Docusate Sodium 1 Tablet) 2 tablet PO BID [facility] Last Admin: 08/27/20 21:00 Dose: Not Given Documented by: Sodium Chloride (0.9% Nacl Peripheral Flush Adult/Peds) 5 - 15 ml IV UD PRN PRN Reason: SALINE FLUSH Sodium Chloride (0.9% Saline Lock 10 Ml Syringe) 10 - 40 ml IV UD PRN PRN Reason: SALINE FLUSH Warfarin Sodium (Warfarin 3 Mg Tablet) 3 mg PO DAILY@1700 [facility] Last Admin: 08/27/20 18:24 Dose: 3 mg Documented by: Medical Necessity - Tobacco Use Smoking Status: Former smoker Tobacco Use: Non-smoker Assessment/Plan All Active Problems (Last Reviewed 08/27/20 @ 01:[address] Naveed Rick MD) Failed total hip arthroplasty (Acute) Hypoxia (Acute) Bradycardia (Acute) Postoperative anemia (Acute) Thoracic aortic aneurysm, ruptured (Resolved) 1. POD#2, status post conversion of left hip cephalomedullary nailing to left total hip replacement Pain is controlled, continue with orthopedic recommendations 2. Anemia, acute blood loss from surgery, Hb today is 6.9 Will transfuse 1 pRBC. 3. Urinary retention, likely secondary to probably poor p.o. intake, resolved 4. Acute hypoxic respiratory insufficiency likely secondary to atelectasis, resolved Encourage incentive spirometer, wean off for SPO2 more than 94% 5. Bradycardia, heart rate remained stable in the 50s, Resumed on a lower dose of carvedilol Continue to monitor 6. Chronic atrial fibrillation, continue amiodarone INR is 1.4. Resumed on Coumadin. Repeat INR in a.m. 7. History of DVT/PE, INR subtherapeutic, continue warfarin 8. CAD status post stents/heart failure with preserved EF, chronic, Continue Lasix, lisinopril 9. Hypothyroidism, continue on synthroid 10. DVT PPx- on warfarin Inpatient E&M: [id number] [facility] Hosp L2
[2020-08-28 07:32] LABS: Hemoglobin 6.9 g/dL (13.0-16.5); Mean Corpuscular Hgb 27.4 pg (27.0-32.0); Mean Corpuscular Volume 91.3 fL (80-94); Mean Platelet Vol. 9.3 fl (6.2-12.0); Platelet Count 203 K/mm3 (150-450); RBC Distribution Width CV 14.8 % (11.6-14.6); RBC Distribution Width SD 48.8 fl (35.1-43.9); Red Blood Count 2.52 M/mm3 (4.6-6.2); White Blood Count 10.2 K/mm3 (4.4-11.0)
[2020-08-28 07:34] LABS: ALB/GLOB Ratio 0.7 RATIO (0.9-2.4); AST(SGOT) 8 U/L (15-37); Alanine Aminotransfer ALT/SGPT 7 U/L (16-61); Albumin, Serum 2.1 g/dL (3.2-5.0); Alkaline Phosphatase 66 U/L (45-117); Anion Gap 3 (5-15); BUN 42 mg/dL (7-18); BUN/Creat Ratio 33.1 RATIO (10-20); Calcium,Total 7.8 mg/dL (8.5-10.1); Chloride 111 mmol/L (98-107); Creatinine, Serum 1.27 mg/dL (0.70-1.30); EST Glomerular Filtration Rate 58 mL/min (>60); Est Glom Filt Rate - Afr Amer 70 mL/min (>60); Estimated Creatinine Clearance 36.42 ml/min; Glucose 93 mg/dL (74-106); Potassium 4.2 mmol/L (3.5-5.1); Protein, Total 5.1 g/dL (6.4-8.2); Sodium Level 142 mmol/L (136-145)
[2020-08-28 08:17] LABS: International Normalized Ratio 1.4; Prothrombin Time (Protime)PT. 16.5 SECONDS (11.7-14.9)
[2020-08-28] MEDS: Ensure Surgery 237 ML LIQUID PO ×2 (09:41→13:09)
[2020-08-28] MEDS: Ferrous Sulfate 325 MG Tablet PO (09:42)
[2020-08-28] MEDS: Folic Acid 1 MG Tablet PO (09:43)
[2020-08-28] MEDS: Ramipril 10 MG Capsule PO (09:44)
[2020-08-28] MEDS: Amiodarone 200 MG Tablet PO (09:45)
[2020-08-28] MEDS: Famotidine 20 MG Tablet PO (09:47)
[2020-08-28] MEDS: Carvedilol 12.5 MG Tablet PO (09:51)
[2020-08-28] MEDS: Furosemide 40 MG Tablet PO (09:51)
[2020-08-28] MEDS: 0.9% NaCl Peripheral Flush Adult/Peds IV ×2 (10:31→13:54)
--- NOTE | 2020-08-28 13:50 | NURSING ---
REPORT CALLED TO EVENS LOZOYA IN TCU. WILL BE TRANSFERRED TO TCU-8 AFTER BLOOD COMPLETE & HAS HAD IV LASIX X1 PER ORDER.
[2020-08-28] MEDS: Furosemide 20 MG/2 ML VIAL IV (13:54)
== END 2020-08-28 15:05 | disposition skilled nursing facility (03) | DRG 470 ==
LOC: ACINP 12:42 → MS3 08-27 06:57
PROVIDERS: Anesthesiology; Hospitalist; Physician Assistant Surgical; Admitting Provider Specialist; PCP Family Medicine; Referring Provider Specialist; Visit Provider Internal Medicine
PROC: 0SRB02Z Replacement of Left Hip Joint with Metal on Polyethylene Synthetic Substitute, Open Approach (ICD-10-PCS; CPT 27134; principal; 2020-08-26 13:35)
DX: M87.252 Osteonecrosis due to previous trauma, left femur (principal); T84.89XA Other specified complication of internal orthopedic prosthetic devices, implants and grafts, initial encounter; I50.32 Chronic diastolic (congestive) heart failure; I13.0 Hypertensive heart and chronic kidney disease with heart failure and stage 1 through stage 4 chronic kidney disease, or unspecified chronic kidney disease; J98.11 Atelectasis; D62 Acute posthemorrhagic anemia; S72.142K Displaced intertrochanteric fracture of left femur, subsequent encounter for closed fracture with nonunion; R00.1 Bradycardia, unspecified; R06.89 Other abnormalities of breathing; E78.2 Mixed hyperlipidemia; N40.1 Benign prostatic hyperplasia with lower urinary tract symptoms; R33.9 Retention of urine, unspecified; J44.9 Chronic obstructive pulmonary disease, unspecified; E03.9 Hypothyroidism, unspecified; I48.0 Paroxysmal atrial fibrillation; Y83.4 Other reconstructive surgery as the cause of abnormal reaction of the patient, or of later complication, without mention of misadventure at the time of the procedure; Y79.2 Prosthetic and other implants, materials and accessory orthopedic devices associated with adverse incidents; I25.10 Atherosclerotic heart disease of native coronary artery without angina pectoris; N18.9 Chronic kidney disease, unspecified; M16.10 Unilateral primary osteoarthritis, unspecified hip; I73.9 Peripheral vascular disease, unspecified; Z87.891 Personal history of nicotine dependence; Z95.2 Presence of prosthetic heart valve; Z86.711 Personal history of pulmonary embolism; Z86.718 Personal history of other venous thrombosis and embolism
CPT/HCPCS: 36415; 36416; 71045; 73502; 80048; 80053; 82040; 82962; 83735; 84443; 85014; 85018; 85025; 85027; 85610; 86850; 86900; 86901; 86920; 86922; 87077; 87081; 87426; 87635; 93005; 94762; 97110; 97116; 97162; 97166; 97530; 97535; 99251; C1713; C1776; C9803; J7030; J7040; J7120; P9016; A4216; G0463; J1940; J2405; J3475; U0002

== ENCOUNTER 2020-08-28 15:12 | Inpatient (IN) | payer MEDICARE, OTHER, SELFPAY ==
[2020-08-26 20:14] VITALS: BMI 23.3
[2020-08-28 15:17] VITALS: BP 139/39; PULSE 67; RESP 16; TEMP 37.3; O2SAT 96; BMI 29.2
[2020-08-28 17:36] VITALS: BP 141/54; PULSE 66; TEMP 37.3
[2020-08-28] MEDS: oxyCODONE 5 MG Tablet PO (17:41)
[2020-08-28] MEDS: Carvedilol 25 MG Tablet PO (17:49)
--- NOTE | 2020-08-28 19:19 | PCM.HP.STD ---
Problem List (1) Chronic left hip pain Status: Chronic (2) Hypoxia Status: Acute (3) Bradycardia Status: Acute (4) Postoperative anemia Status: Acute (5) Aortic stenosis Status: Chronic (6) DVT (deep venous thrombosis) Status: Chronic (7) Chronic kidney disease Status: Chronic (8) Peripheral arterial occlusive disease Status: Chronic (9) Thoracic aortic aneurysm Status: Chronic (10) Abdominal aortic aneurysm Status: Chronic Qualifiers: (11) BPH (benign prostatic hyperplasia) Status: Chronic (12) Urinary retention Status: Chronic (13) Debility Status: Chronic (14) Hyperlipidemia Status: Chronic Qualifiers: (15) Coronary artery disease Status: Chronic (16) Hypertension Status: Chronic Qualifiers: (17) COPD (chronic obstructive pulmonary disease) Status: Chronic (18) Hypothyroidism Status: Chronic (19) Atrial fibrillation Status: Chronic Qualifiers: History of Present Illness Date of Admission: 08/28/20 Chief Complaint: Here for rehabilitation, strengthening, prior to discharge home with . The patient is a 80 year old Male with below past medical history with worsening left hip pain x 3 months. 04/26/20 Left hip fracture with intramedullary nail. Left hip pain unbearable. 08/26/20 Dr. Lam performed conversion previous left hip surgery (cephalomedullary nail) to left total hip replacement. 08/27/20 Pain controlled. Start Tamsulosin for urinary retention, continue IV fluids. Hypoxia secondary to atelectasis, wean oxygen, encourage incentive spirometry. Off Carvedilol due to bradycardia. 08/28/20 Transfuse 1 unit PRBC for postoperative anemia. 08/28/20 Able to urinate on his own. 08/28/20 Admit to TCU with debility, here for rehabilitation, strengthening, prior to discharge home with . Past Medical History Past Medical History (Chronic Problems): Chronic Problems (Last Reviewed 08/27/20 @ 01:[address] Naveed Rick MD) Chronic left hip pain (Chronic) Thoracoabdominal aneurysm (Chronic) Placement of a Unity VBX 6 x 29 balloon expandable covered stent into the left renal artery aneurysm and dissection, placement of an 8 x 150 Viabahn to left popliteal aneurysm and left popliteal artery postdilated tension with a 8 x 100 manager servicing balloon on 04/16/2020 at [facility] with Dr. Brody Scott; Fall (Chronic) Closed left hip fracture (Chronic) Aortic stenosis (Chronic) DVT (deep venous thrombosis) (Chronic) Anemia (Chronic) Chronic kidney disease (Chronic) Peripheral arterial occlusive disease (Chronic) Thoracic aortic aneurysm (Chronic) Abdominal aortic aneurysm (Chronic) BPH (benign prostatic hyperplasia) (Chronic) Urinary retention (Chronic) Hip fracture (Chronic) Debility (Chronic) Closed right hip fracture (Chronic) Hyperlipidemia (Chronic) Coronary artery disease (Chronic) Hypertension (Chronic) Chronic diastolic heart failure (Chronic) Mixed hyperlipidemia (Chronic) Chronic heart failure with preserved ejection fraction (Chronic) History of aortic valve repair (Chronic ~10/28/07) Hx of repair of ascending aorta (Chronic ~10/28/07) 32mm Hemishield graft 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) Onset Date: ~10/28/07 I71.01 Essential hypertension (Chronic) I10 Atherosclerotic heart disease of [place] coronary artery without angina pectoris (Chronic) I25.10 Tobacco dependence in remission (Chronic) F17.201 Pulmonary embolism (Chronic) I26.99 Hypothyroidism (Chronic) E03.9 Atrial fibrillation (Chronic) 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) I71.3 Squamous cell carcinoma of skin (Inactive) C44.92 Allergies No Known Allergies Allergy (Verified 08/21/20 14:15) Home Medications: Ambulatory Orders Medication Instructions Recorded nitroglycerin 0.4 mg sublingual 0.4 mg SUBLINGUAL Q5-15M PRN 04/23/18 tablet amiodarone 200 mg tablet 200 mg PO DAILY #30 tab 08/26/19 levothyroxine 100 mcg tablet 150 mcg PO DAILY tab 12/04/19 Furosemide 40 mg PO DAILY 04/07/20 Rosuvastatin Calcium [Crestor] 10 mg PO QHS 05/02/20 Warfarin [Coumadin] 3 mg PO DAILY@1700 08/17/20 carvedilol 25 mg tablet 25 mg PO BID 08/21/20 cholecalciferol (vitamin D3) 50 50 mcg PO DAILY 08/21/20 mcg (2,000 unit) capsule clopidogrel 75 mg tablet 75 mg PO DAILY 08/21/20 ferrous sulfate 325 mg (65 mg 325 mg PO DAILY 08/21/20 iron) tablet,delayed release folic acid 1 mg tablet 1 mg PO DAILY 08/21/20 Potassium 99 mg PO DAILY 08/26/20 Acetaminophen [Tylenol] 1,000 mg PO Q8 08/28/20 Calcium Carbonate [Tums] 500 mg PO Q6H PRN PRN tab 08/28/20 Oxycodone [Oxyir] 5 - 10 mg PO Q4H PRN PRN 3 Days 08/28/20 #36 tab Ramipril [Altace] 10 mg PO DAILY 08/28/20 Surgical History: Surgical History (Last Reviewed 08/27/20 @ 01:[address] Naveed Rick MD) Thoracoabdominal aneurysm (Chronic) I71.6 Placement of a Unity VBX 6 x 29 balloon expandable covered stent into the left renal artery aneurysm and dissection, placement of an 8 x 150 Viabahn to left popliteal aneurysm and left popliteal artery postdilated tension with a 8 x 100 manager servicing balloon on 04/16/2020 at [facility] with Dr. 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 Psychiatric History: No pertinent psych hx Lives: Spouse/ Significant Other Smoking Status: Former smoker Tobacco Use: Non-smoker Alcohol: None Drugs: None - *Family History Maternal Family History: Family History (Last Reviewed 08/27/20 @ 00:[address] Naveed Rick MD) Grandfather Diabetes Brother Heart disease History Items: No pertinent history Paternal Family History: Family History (Last Reviewed 08/27/20 @ 00:[address] Naveed Rick MD) Grandfather Diabetes Brother Heart disease History Items: No pertinent history Offspring Family History: Family History (Last Reviewed 08/27/20 @ 00:[address] Naveed Rick MD) Grandfather Diabetes Brother Heart disease History Items: Hypertension, Seizures, - - Intellectual Delay. Review of Systems Constitutional: Denies: Chills, Fever, Weight Change HEENT: Denies: Head Aches, Sinus Congestion, Sinus Drainage Cardiovascular: Denies: Chest Pain, Palpitations Respiratory: Denies: Cough, Shortness of breath at rest, Sputum production Gastrointestinal: Denies: Abdominal Pain, Nausea, Vomiting Genitourinary: Denies: Dysuria Musculoskeletal: Denies: Joint Pain, Joint Tenderness Skin: Denies: Rash, Wounds Neurological: Denies: Numbness, Tingling, Focal weakness Psychiatric: Denies: Anxiety, Depression, Homicidal Ideations, Suicidal Ideations Hematologic/ Lymphatic: Denies: Easy Bruising, Easy Bleeding VTE Information - Inpt Only VTE Present on Admission: No VTE Mechan Device Prophylaxis: Knee High MARIUM Hose VTE Pharm Prophylaxis ordered?: No Reason prophylaxis not ordered:: Treatment Not Indicated Patient Problems: Active and Suspected Problems (Last Reviewed 08/27/20 @ 01:[address] Naveed Rcik MD) Hypoxia (Acute) Bradycardia (Acute) Postoperative anemia (Acute) - Physical Exam Vitals/I&O's: Vital Signs Temp Pulse Resp BP Pulse Ox 99.1 F 66 16 141/54 H 96 11//20 17:36 08/28/20 17:36 08/28/20 15:17 08/28/20 17:36 08/28/20 15:17 Oxygen Delivery Method Room Air Weight: 67.84 kg Body Mass Index (BMI) 29.2 Intake and Output for Last 24 Hours 08/26/20 08/27/20 08/28/20 23:59 23:59 23:59 Output Total 400 / 400 Balance -400 / -400 General: Alert, Oriented x3, Cooperative HEENT: Atraumatic, PERRLA, EOMI, Normocephalic Neck: Supple, No JVD, Negative Carotid Bruits Lungs: Clear to auscultation, Normal air movement Cardiovascular: Regular rate, No murmurs Abdomen: Bowel Sounds Present, Soft, Non Tender Extremities: No edema, Capillary Refill Less than 3 Seconds Skin: No rashes, No breakdown Musculoskeletal: No Tenderness to Palpation of Joints or Extremities Neurological: Cranial nerves II-XII grossly intact Psych/Mental Status: Normal Affect, Appropriate Laboratory Results 08/28/20 15:45: COVID-19 ([facility]) Pending Current Medications Acetaminophen (Acetaminophen 500 Mg Tablet) 1,000 mg PO Q8 SILVERIO Amiodarone HCl (Amiodarone 200 Mg Tablet) 200 mg PO DAILY [facility] Atorvastatin Calcium (Atorvastatin Calcium 20 Mg Tablet) 20 mg PO QHS SILVERIO Calcium Carbonate (Calcium Carbonate 500 Mg Tablet) 500 mg PO Q6H PRN PRN PRN Reason: HEARTBURN Carvedilol (Carvedilol 25 Mg Tablet) 25 mg PO BIDCM SILVERIO Last Admin: 08/28/20 17:49 Dose: 25 mg Documented by: Cholecalciferol (Cholecalciferol (Vit D3) 1,000 Unit (25mcg)) 2,000 unit PO DAILY [facility] Ferrous Sulfate (Ferrous Sulfate 325 Mg Tablet) 325 mg PO DAILYCM [facility] Folic Acid (Folic Acid 1 Mg Tablet) 1 mg PO DAILYCM [facility] Furosemide (Furosemide 40 Mg Tablet) 40 mg PO DAILY [facility] Levothyroxine Sodium (Levothyroxine 150 Mcg Tablet) 150 mcg PO DAILY [facility] Nitroglycerin (Nitroglycerin (Inpatient Use) 0.4 Mg Tab.Subl) 0.4 mg SUBLINGUAL Q5M PRN PRN Reason: Chest Pain Score 1-10 Oxycodone HCl (Oxycodone 5 Mg Tablet) 5 - 10 mg PO Q4H PRN PRN PRN Reason: Pain Score 4-10 Last Admin: 08/28/20 17:41 Dose: 10 mg Documented by: Ramipril (Ramipril 10 Mg Capsule) 10 mg PO DAILY [facility] Sodium Chloride (0.9% Saline Lock 10 Ml Syringe) 10 - 40 ml IV UD PRN PRN Reason: SALINE FLUSH Tuberculin PPD (Tuberculin,Purif.Prot.Deriv. 50 Tu/Ml Vial) 5 tu ID X1 ONE Stop: 08/29/20 10:01 Tuberculin PPD (Tuberculin,Purif.Prot.Deriv. 50 Tu/Ml Vial) 5 tu ID X1 ONE Stop: 09/05/20 10:01 Warfarin Sodium (Warfarin 3 Mg Tablet) 3 mg PO DAILY@1700 [facility] Last Admin: 08/28/20 17:50 Dose: 3 mg Documented by: Assessment/Plan All Active Problems (Last Reviewed 08/27/20 @ 01:[address] Naveed Rick MD) Failed total hip arthroplasty (Acute) Hypoxia (Acute) Bradycardia (Acute) Postoperative anemia (Acute) Thoracic aortic aneurysm, ruptured (Resolved) 80 year old male with below past medical history hospitalized with intractable left hip pain, underwent conversion from left hip cephalomedullary nail to left total hip replacement 08/26/20, postoperative course complicated by anemia requiring transfusion, urinary retention, admitted to TCU with debility, here for rehabilitation, strengthening, prior to discharge home with . Debility - PT/OT. Pain - Tylenol 1000MG Q8H, Oxycodone 5MG Q4H PRN pain (4-10). Bowel - Miralax 17GM daily, Senna/colace 2 tablets BID, MOM 30ML daily PRN, Dulcolax 10MG RI daily PRN. Adult immunization - Administer Prevnar 13, Pneumovax 23, Fluzone as appropriate. DVT prophylaxis - Not necessary, already on Warfarin. Atrial Fibrillation - Coreg 25MG BID, Amiodarone 200MG daily, Warfarin 3MG daily, follow INR. Hyperlipidemia - Atorvastatin 20MG QHS. Indigestion - TUMS 500MG Q6H PRN. Vitamin D deficiency - D3 2000IU daily, Iron deficiency anemia - Ferrous Sulfate 325MG daily. Folate deficiency - Folic Acid 1MG daily. Edema - Lasix 40MG daily. Hypothyroidism - Levothyroxine 150MCG daily. Coronary Artery Disease - Coreg 25MG BID, Ramipril 10MG daily, NTG 0.4MG SL Q5M PRN.
[2020-08-28] MEDS: Atorvastatin Calcium 20 MG Tablet PO (21:46)
[2020-08-28] MEDS: Acetaminophen 500 MG Tablet 1000 MG PO (21:46)
[2020-08-29] MEDS: oxyCODONE 5 MG Tablet PO ×3 (03:23→20:47)
[2020-08-29 03:28] VITALS: BP 129/49; PULSE 65; RESP 16; TEMP 37.2; O2SAT 94
[2020-08-29] MEDS: Acetaminophen 500 MG Tablet 1000 MG PO ×3 (05:06→20:47)
[2020-08-29] MEDS: Senna/Docusate Sodium 1 Tablet 2 TABLET PO ×2 (05:06→17:01)
[2020-08-29] MEDS: Furosemide 40 MG Tablet PO (05:07)
[2020-08-29] MEDS: Ramipril 10 MG Capsule PO (05:07)
[2020-08-29] MEDS: Amiodarone 200 MG Tablet PO (05:07)
[2020-08-29] MEDS: Levothyroxine 150 MCG Tablet PO (05:07)
[2020-08-29 07:49] LABS: Absolute Lymphocyte Count 1.75 X10^3/uL (0.83-4.51); Absolute Neutrophil Count 8.5 X10^3/uL (2.0-7.7); Basophil# 0.04 X10^3/uL; Basophil% 0.3 % (0-1); Eosinophil# 0.11 X10^3/uL; Hematocrit 26.8 % (40-54); Hemoglobin 8.1 g/dL (13.0-16.5); Lymphocyte # 1.75 X10^3/ul (4.0); Lymphocyte % 15.3 % (19-41); Mean Corp Hgb Conc 30.2 g/dL (32-36); Mean Corpuscular Hgb 27.8 pg (27.0-32.0); Mean Corpuscular Volume 92.1 fL (80-94); Mean Platelet Vol. 9.8 fl (6.2-12.0); Monocyte# 0.96 X10^3/uL; Monocyte% 8.4 % (0-10); NRBC Flagged by Analyzer 0 % (0-5); Neutrophil # 8.46 X10^3/uL (2.7-7.7); Neutrophil % 73.9 % (47-70); Platelet Count 269 K/mm3 (150-450); RBC Distribution Width CV 15.4 % (11.6-14.6); RBC Distribution Width SD 51.8 fl (35.1-43.9); Red Blood Count 2.91 M/mm3 (4.6-6.2); White Blood Count 11.5 K/mm3 (4.4-11.0)
[2020-08-29 07:50] LABS: Anion Gap 2 (5-15); BUN 44 mg/dL (7-18); BUN/Creat Ratio 32.8 RATIO (10-20); Calcium,Total 7.8 mg/dL (8.5-10.1); Chloride 108 mmol/L (98-107); Creatinine, Serum 1.34 mg/dL (0.70-1.30); EST Glomerular Filtration Rate 55 mL/min (>60); Est Glom Filt Rate - Afr Amer 66 mL/min (>60); Estimated Creatinine Clearance 31.61 ml/min; Glucose 82 mg/dL (74-106); Potassium 4.4 mmol/L (3.5-5.1); Sodium Level 140 mmol/L (136-145)
[2020-08-29] MEDS: Ferrous Sulfate 325 MG Tablet PO (08:48)
[2020-08-29] MEDS: Carvedilol 25 MG Tablet PO ×2 (08:48→17:01)
[2020-08-29] MEDS: Folic Acid 1 MG Tablet PO (08:48)
[2020-08-29 10:00] VITALS: PULSE 66; RESP 16
[2020-08-29] MEDS: Tuberculin,Purif.prot.deriv. 50 TU/ML Vial 5 ML ID (10:52)
--- NOTE | 2020-08-29 11:12 | NURSING ---
Saline lock removed from left lower arm.
[2020-08-29 12:13] VITALS: BP 139/54; PULSE 68; RESP 16; TEMP 37.6; O2SAT 95
[2020-08-29] MEDS: Atorvastatin Calcium 20 MG Tablet PO (20:47)
[2020-08-30 01:48] VITALS: BP 141/39; PULSE 64; RESP 16; TEMP 37.2; O2SAT 94
[2020-08-30] MEDS: Ramipril 10 MG Capsule PO (05:45)
[2020-08-30] MEDS: Furosemide 40 MG Tablet PO (05:45)
[2020-08-30] MEDS: Acetaminophen 500 MG Tablet 1000 MG PO ×3 (05:45→21:45)
[2020-08-30] MEDS: Amiodarone 200 MG Tablet PO (05:45)
[2020-08-30] MEDS: Levothyroxine 150 MCG Tablet PO (05:45)
[2020-08-30 05:58] LABS: International Normalized Ratio 1.4; Prothrombin Time (Protime)PT. 16.7 SECONDS (11.7-14.9)
[2020-08-30] MEDS: Carvedilol 25 MG Tablet PO ×2 (08:13→16:37)
[2020-08-30] MEDS: Folic Acid 1 MG Tablet PO (08:14)
[2020-08-30] MEDS: Iron Polysaccharide Complex 150 MG CAPSULE PO (08:50)
[2020-08-30 13:28] VITALS: BP 137/52; PULSE 65; RESP 18; TEMP 36.3; O2SAT 95
[2020-08-30] MEDS: Senna/Docusate Sodium 1 Tablet 2 TABLET PO (16:37)
[2020-08-30] MEDS: oxyCODONE 5 MG Tablet PO (21:45)
[2020-08-30] MEDS: Atorvastatin Calcium 20 MG Tablet PO (21:45)
[2020-08-31 03:10] VITALS: BP 163/59; PULSE 68; RESP 16; TEMP 36.2; O2SAT 93
[2020-08-31] MEDS: Acetaminophen 500 MG Tablet 1000 MG PO ×3 (06:35→20:35)
[2020-08-31] MEDS: Amiodarone 200 MG Tablet PO (06:36)
[2020-08-31] MEDS: Ramipril 10 MG Capsule PO (06:36)
[2020-08-31] MEDS: Furosemide 40 MG Tablet PO (06:36)
[2020-08-31] MEDS: Levothyroxine 150 MCG Tablet PO (06:36)
[2020-08-31 07:10] LABS: International Normalized Ratio 1.5; Prothrombin Time (Protime)PT. 17.4 SECONDS (11.7-14.9)
[2020-08-31] MEDS: Carvedilol 25 MG Tablet PO ×2 (08:08→16:30)
[2020-08-31] MEDS: Folic Acid 1 MG Tablet PO (08:08)
[2020-08-31] MEDS: Iron Polysaccharide Complex 150 MG CAPSULE PO (08:08)
[2020-08-31 09:35] VITALS: PULSE 67; RESP 16; O2SAT 90
--- NOTE | 2020-08-31 11:56 | CASEMGMT ---
Social Work Discussed code status with pt. Pt confirmed full code. No changes to MOLST form - remains on file. CODEY LozanoW
[2020-08-31 13:00] VITALS: BP 131/50; PULSE 69; RESP 16; TEMP 36.9; O2SAT 94
--- NOTE | 2020-08-31 14:36 | PHA.CONS_ITS ---
<Jose AlejandroivanLisa M - Last Filed: 08/31/20 14:36> Progress Note - Pharmacy Subjective: TCU ADMISSION Objective: Allergies No Known Allergies Allergy (Verified 08/21/20 14:15) Current Medications Generic Name Dose Route Start Last Admin Trade Name Freq PRN Reason Stop Dose Admin Acetaminophen 1,000 mg 08/28/20 22:00 08/31/20 13:05 Acetaminophen 500 Mg Tablet PO 1,000 mg Q8 SILVERIO Administration Amiodarone HCl 200 mg 08/29/20 06:00 08/31/20 06:36 Amiodarone 200 Mg Tablet PO 200 mg DAILY SILVERIO Administration Atorvastatin Calcium 20 mg 08/28/20 22:00 08/30/20 21:45 Atorvastatin Calcium 20 Mg Tablet PO 20 mg QHS SILVERIO Administration Bisacodyl 10 mg 08/28/20 19:38 Bisacodyl 10 Mg Suppository RECTAL DAILY PRN Constipation Calcium Carbonate 500 mg 08/28/20 15:33 Calcium Carbonate 500 Mg Tablet PO Q6H PRN PRN HEARTBURN Carvedilol 25 mg 08/28/20 17:00 08/31/20 08:08 Carvedilol 25 Mg Tablet PO 25 mg BIDCM SILVERIO Administration Cholecalciferol 2,000 unit 08/29/20 06:00 08/31/20 06:36 Cholecalciferol (Vit D3) 1,000 Unit (25mcg) PO 2,000 unit DAILY SILVERIO Administration Folic Acid 1 mg 08/29/20 08:00 08/31/20 08:08 Folic Acid 1 Mg Tablet PO 1 mg DAILYCM SILVERIO Administration Furosemide 40 mg 08/29/20 06:00 08/31/20 06:36 Furosemide 40 Mg Tablet PO 40 mg DAILY SILVERIO Administration Levothyroxine Sodium 150 mcg 08/29/20 06:00 08/31/20 06:36 Levothyroxine 150 Mcg Tablet PO 150 mcg DAILY SILVERIO Administration Magnesium Hydroxide 30 ml 08/28/20 19:37 Magnesium Hydroxide 30 Ml Udc PO DAILY PRN Constipation Nitroglycerin 0.4 mg 08/28/20 15:33 Nitroglycerin (Inpatient Use) 0.4 Mg Tab.Subl SUBLINGUAL Q5M PRN Chest Pain Score 1-10 Oxycodone HCl 5 mg 08/28/20 19:38 08/30/20 21:45 Oxycodone 5 Mg Tablet PO 5 mg Q4H PRN PRN Administration Pain Score 4-10 Polyethylene Glycol 17 gm 08/29/20 06:00 08/31/20 06:36 Polyethylene Glycol 3350 17 Gm Packet PO Not Given DAILY ON LICENSE OF [facility] Polysaccharide Iron Complex 150 mg 08/30/20 08:00 08/31/20 08:08 Iron Polysaccharide Complex 150 Mg Capsule PO 150 mg DAILYCM SILVERIO Administration Ramipril 10 mg 08/29/20 06:00 08/31/20 06:36 Ramipril 10 Mg Capsule PO 10 mg DAILY ON LICENSE OF [facility] Administration Senna/Docusate Sodium 2 tablet 08/29/20 06:00 08/31/20 06:36 Senna/Docusate Sodium 1 Tablet PO Not Given BID ON LICENSE OF [facility] Sodium Chloride 10 - 40 ml 08/28/20 16:30 0.9% Saline Lock 10 Ml Syringe IV UD PRN SALINE FLUSH Tuberculin PPD 5 tu 09/05/20 10:00 Tuberculin,Purif.Prot.Deriv. 50 Tu/Ml Vial ID 09/05/20 10:01 X1 ONE Warfarin Sodium 3 mg 08/28/20 17:00 08/30/20 16:37 Warfarin 3 Mg Tablet PO 3 mg DAILY@1700 ON LICENSE OF [facility] Administration Problem List (Last Reviewed 08/27/20 @ 01:[address] Naveed Rick MD) Chronic left hip pain (Chronic) Hypoxia (Acute) Bradycardia (Acute) Postoperative anemia (Acute) Aortic stenosis (Chronic) DVT (deep venous thrombosis) (Chronic) Chronic kidney disease (Chronic) Peripheral arterial occlusive disease (Chronic) Thoracic aortic aneurysm (Chronic) Abdominal aortic aneurysm (Chronic) BPH (benign prostatic hyperplasia) (Chronic) Urinary retention (Chronic) Debility (Chronic) Hyperlipidemia (Chronic) Coronary artery disease (Chronic) Hypertension (Chronic) COPD (chronic obstructive pulmonary disease) (Chronic) Hypothyroidism (Chronic) Atrial fibrillation (Chronic) Vital Signs Temp Pulse Resp BP Pulse Ox 98.4 F 69 16 131/50 H 94 08/31/20 13:00 08/31/20 13:00 08/31/20 13:00 08/31/20 13:00 08/31/20 13:00 Oxygen Delivery Method Room Air Weight: 67.84 kg Body Mass Index (BMI) 29.2 Sodium 140 mmol/L (136-145) 08/29/20 06:58 Potassium 4.4 mmol/L (3.5-5.1) 08/29/20 06:58 Chloride 108 mmol/L (98-107) H 08/29/20 06:58 Carbon Dioxide 30.0 mmol/L (21.0-32.0) 08/29/20 06:58 Anion Gap 2 (5-15) L 08/29/20 06:58 BUN 44 mg/dL (7-18) H 08/29/20 06:58 Creatinine 1.34 mg/dL (0.70-1.30) H 08/29/20 06:58 Est GFR (MDRD) Af Amer 66 mL/min (>60) 08/29/20 06:58 Est GFR (MDRD) Non-Af 55 mL/min (>60) L 08/29/20 06:58 BUN/Creatinine Ratio 32.8 RATIO (10-20) H 08/29/20 06:58 Glucose 82 mg/dL (74-106) 08/29/20 06:58 Assessment/Plan: 1. Pain: Tylenol 1000mg PO Q8h, Oxycodone 5mg PO Q4h Pain 4-10. Please continue to monitor for increased/decreased pain, PRN medication usage. *2. Atrial Fibrillation: Amiodarone 200mg PO Daily, Coreg 25mg PO BID, Warfarin 3mg PO Daily. Please continue to monitor INR (last 08/31 = 1.5). Please consider giving a supplemental dose of warfarin or bridging with Lovenox, as pt's INR is subtherapeutic (Goal INR 2-3), thank you. 3. CAD/ Edema: Lipitor 20mg PO QHS, Coreg 25mg PO BID, Lasix 40mg PO Daily, Ramipril 10mg PO daily, Nitrostat 0.4mg SL Q5min PRN. Please continue to monitor BP, pulse, electrolytes, fluid status, PRN medication usage. 4. Hypothyroid: Synthroid 150mcg PO Daily. Please continue to monitor thyroid function annually or sooner if clinically indicated. 5. Indigestion: Tums 500mg PO Q6h PRN. Please continue to monitor PRN medication usage. Please consider nonpharmacologic treatment options as well to help minimize GERD exacerbations/ indigestion. 6. Iron Deficiency: Ferrex 150mg PO daily. Please continue to monitor iron panels at least annually or sooner if clinically indicated. 7. General Wellness: Cholecalciferol 2000 unit PO Daily, Folic acid 1mg PO daily. Please continue to monitor. Psychotropic Medications: None Unnecessary Medications: None Bowel Regimen: *Miralax 17g PO daily, Senna/Docusate 2 tab PO BID, Dulcolax 10mg [place] Daily PRN, MOM 30mL PO Daily PRN. Please consider changing scheduled medications to PRN if pt having adequate bowel movements. Per MAR, pt has refused several doses of scheduled medications, thank you. Date of Note:: 08/31/20 - Provider Comments Provider responsibility: Provider responsible to enter orders to implement recommendations <Aidan Santos Chi - Last Filed: 08/31/20 17:31> Progress Note - Pharmacy Subjective: [] Objective: Allergies No Known Allergies Allergy (Verified 08/21/20 14:15) Current Medications Generic Name Dose Route Start Last Admin Trade Name Freq PRN Reason Stop Dose Admin Acetaminophen 1,000 mg 08/28/20 22:00 08/31/20 13:05 Acetaminophen 500 Mg Tablet PO 1,000 mg Q8 SILVERIO Administration Amiodarone HCl 200 mg 08/29/20 06:00 08/31/20 06:36 Amiodarone 200 Mg Tablet PO 200 mg DAILY SILVERIO Administration Atorvastatin Calcium 20 mg 08/28/20 22:00 08/30/20 21:45 Atorvastatin Calcium 20 Mg Tablet PO 20 mg QHS SILVERIO Administration Bisacodyl 10 mg 08/28/20 19:38 Bisacodyl 10 Mg Suppository RECTAL DAILY PRN Constipation Calcium Carbonate 500 mg 08/28/20 15:33 Calcium Carbonate 500 Mg Tablet PO Q6H PRN PRN HEARTBURN Carvedilol 25 mg 08/28/20 17:00 08/31/20 16:30 Carvedilol 25 Mg Tablet PO 25 mg BIDCM SILVERIO Administration Cholecalciferol 2,000 unit 08/29/20 06:00 08/31/20 06:36 Cholecalciferol (Vit D3) 1,000 Unit (25mcg) PO 2,000 unit DAILY SILVERIO Administration Folic Acid 1 mg 08/29/20 08:00 08/31/20 08:08 Folic Acid 1 Mg Tablet PO 1 mg DAILYCM SILVERIO Administration Furosemide 40 mg 08/29/20 06:00 08/31/20 06:36 Furosemide 40 Mg Tablet PO 40 mg DAILY SILVERIO Administration Levothyroxine Sodium 150 mcg 08/29/20 06:00 08/31/20 06:36 Levothyroxine 150 Mcg Tablet PO 150 mcg DAILY SILVERIO Administration Magnesium Hydroxide 30 ml 08/28/20 19:37 Magnesium Hydroxide 30 Ml Udc PO DAILY PRN Constipation Nitroglycerin 0.4 mg 08/28/20 15:33 Nitroglycerin (Inpatient Use) 0.4 Mg Tab.Subl SUBLINGUAL Q5M PRN Chest Pain Score 1-10 Oxycodone HCl 5 mg 08/28/20 19:38 08/30/20 21:45 Oxycodone 5 Mg Tablet PO 5 mg Q4H PRN PRN Administration Pain Score 4-10 Polyethylene Glycol 17 gm 08/29/20 06:00 08/31/20 06:36 Polyethylene Glycol 3350 17 Gm Packet PO Not Given DAILY ON LICENSE OF [facility] Polysaccharide Iron Complex 150 mg 08/30/20 08:00 08/31/20 08:08 Iron Polysaccharide Complex 150 Mg Capsule PO 150 mg DAILYCM ON LICENSE OF [facility] Administration Ramipril 10 mg 08/29/20 06:00 08/31/20 06:36 Ramipril 10 Mg Capsule PO 10 mg DAILY ON LICENSE OF [facility] Administration Senna/Docusate Sodium 2 tablet 08/29/20 06:00 08/31/20 17:08 Senna/Docusate Sodium 1 Tablet PO Not Given BID ON LICENSE OF [facility] Sodium Chloride 10 - 40 ml 08/28/20 16:30 0.9% Saline Lock 10 Ml Syringe IV UD PRN SALINE FLUSH Tuberculin PPD 5 tu 09/05/20 10:00 Tuberculin,Purif.Prot.Deriv. 50 Tu/Ml Vial ID 09/05/20 10:01 X1 ONE Warfarin Sodium 3 mg 08/28/20 17:00 08/31/20 16:31 Warfarin 3 Mg Tablet PO 3 mg DAILY@1700 ON LICENSE OF [facility] Administration Problem List (Last Reviewed 08/27/20 @ 01:[address] Naveed Rick MD) Chronic left hip pain (Chronic) Hypoxia (Acute) Bradycardia (Acute) Postoperative anemia (Acute) Aortic stenosis (Chronic) DVT (deep venous thrombosis) (Chronic) Chronic kidney disease (Chronic) Peripheral arterial occlusive disease (Chronic) Thoracic aortic aneurysm (Chronic) Abdominal aortic aneurysm (Chronic) BPH (benign prostatic hyperplasia) (Chronic) Urinary retention (Chronic) Debility (Chronic) Hyperlipidemia (Chronic) Coronary artery disease (Chronic) Hypertension (Chronic) COPD (chronic obstructive pulmonary disease) (Chronic) Hypothyroidism (Chronic) Atrial fibrillation (Chronic) Vital Signs Temp Pulse Resp BP Pulse Ox 98.4 F 69 16 131/50 H 94 08/31/20 13:00 08/31/20 13:00 08/31/20 13:00 08/31/20 13:00 08/31/20 13:00 Oxygen Delivery Method Room Air Weight: 67.84 kg Body Mass Index (BMI) 29.2 Sodium 140 mmol/L (136-145) 08/29/20 06:58 Potassium 4.4 mmol/L (3.5-5.1) 08/29/20 06:58 Chloride 108 mmol/L (98-107) H 08/29/20 06:58 Carbon Dioxide 30.0 mmol/L (21.0-32.0) 08/29/20 06:58 Anion Gap 2 (5-15) L 08/29/20 06:58 BUN 44 mg/dL (7-18) H 08/29/20 06:58 Creatinine 1.34 mg/dL (0.70-1.30) H 08/29/20 06:58 Est GFR (MDRD) Af Amer 66 mL/min (>60) 08/29/20 06:58 Est GFR (MDRD) Non-Af 55 mL/min (>60) L 08/29/20 06:58 BUN/Creatinine Ratio 32.8 RATIO (10-20) H 08/29/20 06:58 Glucose 82 mg/dL (74-106) 08/29/20 06:58 Assessment/Plan: Psychotropic Medications: Unnecessary Medications: Bowel Regimen: - Provider Comments Provider responsibility: Provider responsible to enter orders to implement recommendations Provider Comments to Recommendations by Pharmacy: Agree
[2020-08-31] MEDS: Calcium Carbonate 500 MG Tablet PO (20:34)
[2020-08-31] MEDS: Atorvastatin Calcium 20 MG Tablet PO (20:35)
[2020-09-01] MEDS: Acetaminophen 500 MG Tablet 1000 MG PO ×3 (05:33→19:59)
[2020-09-01] MEDS: Furosemide 40 MG Tablet PO (05:33)
[2020-09-01] MEDS: Amiodarone 200 MG Tablet PO (05:33)
[2020-09-01] MEDS: Levothyroxine 150 MCG Tablet PO (05:33)
[2020-09-01] MEDS: Ramipril 10 MG Capsule PO (05:34)
[2020-09-01 05:39] VITALS: BP 150/48; PULSE 64; RESP 16; TEMP 36.8; O2SAT 93
[2020-09-01 05:54] LABS: International Normalized Ratio 1.7; Prothrombin Time (Protime)PT. 19.2 SECONDS (11.7-14.9)
[2020-09-01] MEDS: Iron Polysaccharide Complex 150 MG CAPSULE PO (08:07)
[2020-09-01] MEDS: Folic Acid 1 MG Tablet PO (08:07)
[2020-09-01] MEDS: Carvedilol 25 MG Tablet PO ×2 (08:07→17:21)
[2020-09-01 13:26] VITALS: BP 109/60; PULSE 66; RESP 18; TEMP 36.9; O2SAT 95
[2020-09-01] MEDS: Menthol/Lanolin/Calamine/Znox 113 GM Tube 1 APPLIC TOPICAL (19:58)
[2020-09-01] MEDS: Atorvastatin Calcium 20 MG Tablet PO (19:59)
[2020-09-01] MEDS: Calcium Carbonate 500 MG Tablet PO (20:18)
[2020-09-02 04:00] VITALS: BP 173/46; PULSE 68; RESP 18; TEMP 36.8; O2SAT 94
[2020-09-02 05:56] LABS: International Normalized Ratio 1.9; Prothrombin Time (Protime)PT. 21.6 SECONDS (11.7-14.9)
[2020-09-02] MEDS: Levothyroxine 150 MCG Tablet PO (06:10)
[2020-09-02] MEDS: Furosemide 40 MG Tablet PO (06:10)
[2020-09-02] MEDS: Ramipril 10 MG Capsule PO (06:10)
[2020-09-02] MEDS: Acetaminophen 500 MG Tablet 1000 MG PO ×3 (06:10→21:12)
[2020-09-02] MEDS: Amiodarone 200 MG Tablet PO (06:10)
[2020-09-02] MEDS: Menthol/Lanolin/Calamine/Znox 113 GM Tube 1 APPLIC TOPICAL ×2 (06:11→21:16)
[2020-09-02 08:16] VITALS: BP 150/67; PULSE 69
[2020-09-02] MEDS: Folic Acid 1 MG Tablet PO (08:17)
[2020-09-02] MEDS: Iron Polysaccharide Complex 150 MG CAPSULE PO (08:17)
[2020-09-02] MEDS: Carvedilol 25 MG Tablet PO ×2 (08:17→17:21)
[2020-09-02 11:00] VITALS: PULSE 67; RESP 18; O2SAT 98
--- NOTE | 2020-09-02 13:20 | CASEMGMT ---
Social Work IDT met with patient and via conference care plan meeting. Discussed patient's progress in therapy. Pt is Gaurav for bed mobility, sit to stands, CGA for tx with FWW, ambulating 30 ft. Pt having pain with tx and mobility, using 2# wts on R LE and 0# wts on L LE. Pt is supervised for grooming, SBA for UE ADLs, max with AE for LE ADLS, min for toilet tx, mod for toilet tasks. Pt is on a regular, MINDY diet, small portions, 75-100% intake, receiving ensure and weight is stable. Pt is out of isolation 09/11, has surgical wound and dressing changes. Pt has f/u appt 09/07. Explained Medicare benefit. the goal is for pt to return home with , has two steps to enter, and 13 steps to 2nd floor bed and bath. Will continue to follow. CODEY Lozano [employer]ING WHE[employer]ENDER
--- NOTE | 2020-09-02 14:28 | RAD_ITS ---
STUDY: X-RAY - ABDOMEN/PELVIS REASON FOR EXAM: Male, 80 years old. NAUSEA, VOMITTING AND DIARRHEA. TECHNIQUE: Single AP view of the abdomen / pelvis. COMPARISON: None. FINDINGS: Mild increased markings at the left lung base suggestive of left basilar atelectasis and/or scarring. There is a moderate amount of colonic fecal material. The visualized liver, spleen and kidneys are grossly normal in size and morphology. Normal soft tissue structures. There are diffuse degenerative changes of the visualized lumbar spine. The patient is status post bilateral hip replacements. RAD/Abdomen Single View IMPRESSION: Moderate amount of fecal material is seen in the colon. Electronically Signed: Milan Cao, at 15:13 EST , Service support ,
[2020-09-02] MEDS: Ondansetron ODT 4 MG Tablet PO (14:44)
--- NOTE | 2020-09-02 14:46 | NURSING ---
pt has been nauseated most of morning and stated he was not hungry do to it. order for kub and zofran given.
[2020-09-02] MEDS: Senna/Docusate Sodium 1 Tablet 2 TABLET PO (17:22)
[2020-09-02] MEDS: Magnesium Citrate 300 ML PO (17:26)
--- NOTE | 2020-09-02 17:28 | NURSING ---
up dated on pt
[2020-09-02] MEDS: Atorvastatin Calcium 20 MG Tablet PO (21:13)
[2020-09-03] MEDS: Calcium Carbonate 500 MG Tablet PO (00:40)
[2020-09-03 05:23] VITALS: BP 138/52; PULSE 60; RESP 16; TEMP 36.4; O2SAT 93
[2020-09-03] MEDS: Amiodarone 200 MG Tablet PO (05:24)
[2020-09-03] MEDS: Furosemide 40 MG Tablet PO (05:25)
[2020-09-03] MEDS: Menthol/Lanolin/Calamine/Znox 113 GM Tube 1 APPLIC TOPICAL ×2 (05:25→21:06)
[2020-09-03] MEDS: Senna/Docusate Sodium 1 Tablet 2 TABLET PO (05:25)
[2020-09-03] MEDS: Ramipril 10 MG Capsule PO (05:25)
[2020-09-03] MEDS: Acetaminophen 500 MG Tablet 1000 MG PO ×3 (05:25→21:05)
[2020-09-03] MEDS: Levothyroxine 150 MCG Tablet PO (05:25)
[2020-09-03 06:20] LABS: International Normalized Ratio 2.3; Prothrombin Time (Protime)PT. 24.5 SECONDS (11.7-14.9)
[2020-09-03] MEDS: Carvedilol 25 MG Tablet PO ×2 (08:17→17:24)
[2020-09-03] MEDS: Folic Acid 1 MG Tablet PO (08:17)
[2020-09-03] MEDS: Iron Polysaccharide Complex 150 MG CAPSULE PO (08:17)
[2020-09-03 08:19] VITALS: BP 145/61; PULSE 63
[2020-09-03 14:28] VITALS: BP 116/41; PULSE 61; RESP 14; TEMP 36.4; O2SAT 97
--- NOTE | 2020-09-03 15:52 | NURSING ---
PT STATED HE TALKED TO TO DAY.
[2020-09-03 17:25] VITALS: BP 173/66; PULSE 62
[2020-09-03] MEDS: Atorvastatin Calcium 20 MG Tablet PO (21:05)
[2020-09-03 21:50] VITALS: PULSE 70; RESP 16; O2SAT 95
[2020-09-04 05:47] VITALS: BP 165/43; PULSE 60; RESP 16; TEMP 36.4; O2SAT 94
[2020-09-04 05:50] VITALS: BP 154/49
[2020-09-04] MEDS: Furosemide 40 MG Tablet PO (05:50)
[2020-09-04] MEDS: Senna/Docusate Sodium 1 Tablet 2 TABLET PO (05:50)
[2020-09-04] MEDS: Levothyroxine 150 MCG Tablet PO (05:50)
[2020-09-04] MEDS: Ramipril 10 MG Capsule PO (05:50)
[2020-09-04] MEDS: Amiodarone 200 MG Tablet PO (05:50)
[2020-09-04] MEDS: Acetaminophen 500 MG Tablet 1000 MG PO ×3 (05:50→20:31)
[2020-09-04] MEDS: Menthol/Lanolin/Calamine/Znox 113 GM Tube 1 APPLIC TOPICAL ×2 (05:52→20:32)
[2020-09-04] MEDS: Iron Polysaccharide Complex 150 MG CAPSULE PO (08:08)
[2020-09-04] MEDS: Carvedilol 25 MG Tablet PO ×2 (08:08→18:20)
[2020-09-04] MEDS: Folic Acid 1 MG Tablet PO (08:08)
[2020-09-04 10:00] VITALS: PULSE 64; RESP 16; O2SAT 97
[2020-09-04 15:33] VITALS: BP 124/38; PULSE 67; RESP 16; TEMP 36.3; O2SAT 98
[2020-09-04 18:22] VITALS: BP 161/61; PULSE 64
[2020-09-04] MEDS: Atorvastatin Calcium 20 MG Tablet PO (20:32)
[2020-09-05 04:00] VITALS: BP 180/74; PULSE 62; RESP 16; TEMP 36.6; O2SAT 96
[2020-09-05] MEDS: Ramipril 10 MG Capsule PO (04:56)
[2020-09-05] MEDS: Furosemide 40 MG Tablet PO (04:56)
[2020-09-05] MEDS: Levothyroxine 150 MCG Tablet PO (04:56)
[2020-09-05] MEDS: Senna/Docusate Sodium 1 Tablet 2 TABLET PO (04:56)
[2020-09-05] MEDS: Amiodarone 200 MG Tablet PO (04:56)
[2020-09-05] MEDS: Menthol/Lanolin/Calamine/Znox 113 GM Tube 1 APPLIC TOPICAL ×2 (04:58→21:48)
[2020-09-05] MEDS: Acetaminophen 500 MG Tablet 1000 MG PO ×3 (05:00→21:49)
[2020-09-05] MEDS: Iron Polysaccharide Complex 150 MG CAPSULE PO (08:59)
[2020-09-05] MEDS: Carvedilol 25 MG Tablet PO ×2 (08:59→17:03)
[2020-09-05] MEDS: Folic Acid 1 MG Tablet PO (08:59)
[2020-09-05 09:03] VITALS: BP 158/63; PULSE 70
[2020-09-05 09:04] LABS: Absolute Lymphocyte Count 1.32 X10^3/uL (0.83-4.51); Absolute Neutrophil Count 5.2 X10^3/uL (2.0-7.7); Basophil# 0.02 X10^3/uL; Basophil% 0.3 % (0-1); Eosinophil# 0.15 X10^3/uL; Eosinophils% 2.1 % (0-5); Hematocrit 29.4 % (40-54); Hemoglobin 8.8 g/dL (13.0-16.5); Lymphocyte # 1.32 X10^3/ul (4.0); Lymphocyte % 18.1 % (19-41); Mean Corp Hgb Conc 29.9 g/dL (32-36); Mean Corpuscular Hgb 28.2 pg (27.0-32.0); Mean Corpuscular Volume 94.2 fL (80-94); Monocyte# 0.59 X10^3/uL; Monocyte% 8.1 % (0-10); NRBC Flagged by Analyzer 0 % (0-5); Neutrophil # 5.16 X10^3/uL (2.7-7.7); Neutrophil % 70.4 % (47-70); Platelet Count 323 K/mm3 (150-450); RBC Distribution Width CV 15.8 % (11.6-14.6); RBC Distribution Width SD 54.1 fl (35.1-43.9); Red Blood Count 3.12 M/mm3 (4.6-6.2); White Blood Count 7.3 K/mm3 (4.4-11.0)
[2020-09-05 09:16] LABS: Anion Gap 3 (5-15); BUN 27 mg/dL (7-18); BUN/Creat Ratio 22.1 RATIO (10-20); Calcium,Total 8.8 mg/dL (8.5-10.1); Chloride 108 mmol/L (98-107); Creatinine, Serum 1.22 mg/dL (0.70-1.30); EST Glomerular Filtration Rate 61 mL/min (>60); Est Glom Filt Rate - Afr Amer 74 mL/min (>60); Estimated Creatinine Clearance 34.72 ml/min; Glucose 85 mg/dL (74-106); Potassium 4.4 mmol/L (3.5-5.1); Sodium Level 142 mmol/L (136-145)
[2020-09-05] MEDS: Tuberculin,Purif.prot.deriv. 50 TU/ML Vial 5 ML ID (10:32)
[2020-09-05 14:20] VITALS: BP 153/66; PULSE 68; RESP 18; TEMP 36.6; O2SAT 97
[2020-09-05] MEDS: Atorvastatin Calcium 20 MG Tablet PO (21:50)
[2020-09-06 04:00] VITALS: PULSE 62; RESP 18; TEMP 36.6; O2SAT 95
[2020-09-06] MEDS: Acetaminophen 500 MG Tablet 1000 MG PO ×3 (06:58→20:26)
[2020-09-06] MEDS: Levothyroxine 150 MCG Tablet PO (06:58)
[2020-09-06] MEDS: Ramipril 10 MG Capsule PO (06:58)
[2020-09-06] MEDS: Amiodarone 200 MG Tablet PO (06:58)
[2020-09-06] MEDS: Furosemide 40 MG Tablet PO (06:58)
[2020-09-06] MEDS: Menthol/Lanolin/Calamine/Znox 113 GM Tube 1 APPLIC TOPICAL ×2 (06:59→20:27)
[2020-09-06] MEDS: Folic Acid 1 MG Tablet PO (07:43)
[2020-09-06] MEDS: Carvedilol 25 MG Tablet PO ×2 (07:43→16:38)
[2020-09-06] MEDS: Iron Polysaccharide Complex 150 MG CAPSULE PO (07:43)
[2020-09-06 07:45] VITALS: BP 168/66; PULSE 62
[2020-09-06 10:50] VITALS: PULSE 58; RESP 18; O2SAT 96
--- NOTE | 2020-09-06 11:32 | PCA ---
brought lunch for pt
[2020-09-06 14:12] VITALS: BP 164/71; PULSE 67; RESP 18; TEMP 36.6; O2SAT 95
[2020-09-06] MEDS: Atorvastatin Calcium 20 MG Tablet PO (20:26)
[2020-09-07 04:00] VITALS: BP 173/58; PULSE 65; RESP 18; TEMP 36.6; O2SAT 96
[2020-09-07] MEDS: Ramipril 10 MG Capsule PO (05:29)
[2020-09-07] MEDS: Levothyroxine 150 MCG Tablet PO (05:29)
[2020-09-07] MEDS: Acetaminophen 500 MG Tablet 1000 MG PO ×3 (05:29→21:15)
[2020-09-07] MEDS: Amiodarone 200 MG Tablet PO (05:29)
[2020-09-07] MEDS: Furosemide 40 MG Tablet PO (05:29)
[2020-09-07] MEDS: Menthol/Lanolin/Calamine/Znox 113 GM Tube 1 APPLIC TOPICAL ×2 (05:30→21:18)
[2020-09-07 06:14] LABS: International Normalized Ratio 2.8; Prothrombin Time (Protime)PT. 29.2 SECONDS (11.7-14.9)
[2020-09-07] MEDS: Iron Polysaccharide Complex 150 MG CAPSULE PO (09:45)
[2020-09-07] MEDS: Carvedilol 25 MG Tablet PO ×2 (09:45→16:58)
[2020-09-07] MEDS: Folic Acid 1 MG Tablet PO (09:45)
[2020-09-07 13:43] VITALS: BP 147/46; PULSE 65; RESP 14; TEMP 36.8; O2SAT 97
--- NOTE | 2020-09-07 13:59 | NURSING ---
Pt left unit for doctors appointment.
--- NOTE | 2020-09-07 14:37 | MDS.RN ---
Spoke with pt son.
--- NOTE | 2020-09-07 16:08 | NURSING ---
pt returned from appt. WB status continues as WBAT with walker, posterior hip dislocation precautions for 3 months. Continue Tylenol TID and only use Oxycodone for break through pain. F/U with Dr. Lam in 4 weeks with repeat Xrays.
[2020-09-07] MEDS: Atorvastatin Calcium 20 MG Tablet PO (21:17)
[2020-09-08 04:00] VITALS: BP 180/74; PULSE 63; RESP 18; TEMP 36.4; O2SAT 96
[2020-09-08] MEDS: Ramipril 10 MG Capsule PO (05:41)
[2020-09-08] MEDS: Acetaminophen 500 MG Tablet 1000 MG PO ×3 (05:41→21:36)
[2020-09-08] MEDS: Amiodarone 200 MG Tablet PO (05:42)
[2020-09-08] MEDS: Furosemide 40 MG Tablet PO (05:42)
[2020-09-08] MEDS: Levothyroxine 150 MCG Tablet PO (05:42)
[2020-09-08] MEDS: Senna/Docusate Sodium 1 Tablet 2 TABLET PO (05:42)
[2020-09-08] MEDS: Menthol/Lanolin/Calamine/Znox 113 GM Tube 1 APPLIC TOPICAL ×2 (05:43→22:19)
--- NOTE | 2020-09-08 08:08 | MDS.RN ---
Information for the mds was obtained from review of the clinical record, interview of resident, staff, and direct observation of resident's care.
[2020-09-08] MEDS: Iron Polysaccharide Complex 150 MG CAPSULE PO (08:09)
[2020-09-08] MEDS: Folic Acid 1 MG Tablet PO (08:09)
[2020-09-08] MEDS: Carvedilol 25 MG Tablet PO ×2 (08:09→17:20)
[2020-09-08 08:11] VITALS: BP 142/68; PULSE 63
--- NOTE | 2020-09-08 14:01 | NURSING ---
pt stated he didnt need this nurse to call and up date.
[2020-09-08 14:07] VITALS: BP 150/38; PULSE 67; RESP 20; TEMP 36.3; O2SAT 97
--- NOTE | 2020-09-08 16:15 | NURSING ---
Resident and family notified of staff member testing positive for COVID.
--- NOTE | 2020-09-08 16:34 | CHAPLAIN ---
Type of Pastoral Visit _x__ Initial Visit ___ Follow-up Visit ___ On-call Visit ___ General Patient Visit ___ Spiritual Assessment ___ Family Conference ___ Bereavement ___ Rapid Response ___ Code Blue ___ Other (describe below) Pastoral Care Referral From _x__ Patient ___ Family ___ Nurse ___ Physician ___ Box Sealing Machine Catcher ___ Charge Rn ___ Other (describe below) Sacrament/Intervention _x__ Active listening ___ Anointing ___ Moravian ___ Bereavement ___ Communion ___ Trupti exploration ___ _x__ Life review _x__ Prayer ___ Reconciliation ___ Sacrament of Sick _x__ Supportive presence ___ Wedding ___ Other (describe below) Pastoral Comments this patient has been seen previously by this lead generation marketing manager; pt is agreeable to visit and gives update on his current situation and life; pt welcomes prayer
[2020-09-08] MEDS: Atorvastatin Calcium 20 MG Tablet PO (21:36)
[2020-09-09 04:00] VITALS: BP 185/70; PULSE 60; RESP 16; TEMP 36.6; O2SAT 16
[2020-09-09] MEDS: Acetaminophen 500 MG Tablet 1000 MG PO ×3 (06:20→20:17)
[2020-09-09] MEDS: Amiodarone 200 MG Tablet PO (06:20)
[2020-09-09] MEDS: Levothyroxine 150 MCG Tablet PO (06:21)
[2020-09-09] MEDS: Furosemide 40 MG Tablet PO (06:21)
[2020-09-09] MEDS: Senna/Docusate Sodium 1 Tablet 2 TABLET PO (06:21)
[2020-09-09] MEDS: Ramipril 10 MG Capsule PO (06:21)
[2020-09-09] MEDS: Menthol/Lanolin/Calamine/Znox 113 GM Tube 1 APPLIC TOPICAL ×2 (06:25→20:17)
[2020-09-09] MEDS: Carvedilol 25 MG Tablet PO ×2 (08:04→17:39)
[2020-09-09] MEDS: Folic Acid 1 MG Tablet PO (08:04)
[2020-09-09] MEDS: Iron Polysaccharide Complex 150 MG CAPSULE PO (08:04)
[2020-09-09 14:17] VITALS: BP 141/46; PULSE 64; RESP 14; TEMP 36.1; O2SAT 95
[2020-09-09 17:40] VITALS: BP 167/78; PULSE 63
[2020-09-09] MEDS: Atorvastatin Calcium 20 MG Tablet PO (20:17)
[2020-09-10 04:00] VITALS: BP 175/62; PULSE 62; RESP 16; TEMP 36.3; O2SAT 96
[2020-09-10] MEDS: Amiodarone 200 MG Tablet PO (05:14)
[2020-09-10] MEDS: Furosemide 40 MG Tablet PO (05:15)
[2020-09-10] MEDS: Levothyroxine 150 MCG Tablet PO (05:15)
[2020-09-10] MEDS: Acetaminophen 500 MG Tablet 1000 MG PO ×3 (05:15→20:25)
[2020-09-10] MEDS: Ramipril 10 MG Capsule PO (05:15)
[2020-09-10] MEDS: Menthol/Lanolin/Calamine/Znox 113 GM Tube 1 APPLIC TOPICAL ×2 (05:17→20:25)
[2020-09-10 07:21] LABS: International Normalized Ratio 3.3; Prothrombin Time (Protime)PT. 33.5 SECONDS (11.7-14.9)
[2020-09-10] MEDS: Iron Polysaccharide Complex 150 MG CAPSULE PO (07:57)
[2020-09-10] MEDS: Carvedilol 25 MG Tablet PO ×2 (07:57→16:18)
[2020-09-10] MEDS: Folic Acid 1 MG Tablet PO (07:57)
[2020-09-10 07:59] VITALS: BP 187/74; PULSE 61
[2020-09-10 10:52] VITALS: PULSE 63; RESP 16; O2SAT 97
[2020-09-10 10:57] VITALS: BP 115/50; PULSE 64
[2020-09-10 13:36] VITALS: BP 146/62; PULSE 62; RESP 16; TEMP 36.7; O2SAT 97
--- NOTE | 2020-09-10 15:50 | NURSING ---
inr 3.3 today, dr pascal aware and reduced warfarin 2mg daily. pt updated.
[2020-09-10] MEDS: Jantoven 2 MG Tablet PO (16:18)
[2020-09-10] MEDS: Calcium Carbonate 500 MG Tablet PO (20:24)
[2020-09-10] MEDS: Atorvastatin Calcium 20 MG Tablet PO (20:25)
[2020-09-11 05:29] VITALS: BP 165/95; PULSE 64; RESP 16; TEMP 36; O2SAT 98
[2020-09-11] MEDS: Furosemide 40 MG Tablet PO (05:32)
[2020-09-11] MEDS: Amiodarone 200 MG Tablet PO (05:32)
[2020-09-11] MEDS: Ramipril 10 MG Capsule PO (05:32)
[2020-09-11] MEDS: Acetaminophen 500 MG Tablet 1000 MG PO ×3 (05:33→21:28)
[2020-09-11] MEDS: Levothyroxine 150 MCG Tablet PO (05:33)
[2020-09-11] MEDS: Menthol/Lanolin/Calamine/Znox 113 GM Tube 1 APPLIC TOPICAL ×2 (05:42→21:30)
[2020-09-11] MEDS: Iron Polysaccharide Complex 150 MG CAPSULE PO (08:08)
[2020-09-11] MEDS: Folic Acid 1 MG Tablet PO (08:08)
[2020-09-11] MEDS: Carvedilol 25 MG Tablet PO ×2 (08:08→16:00)
[2020-09-11 13:52] VITALS: BP 137/56; PULSE 72; RESP 16; TEMP 36.7; O2SAT 95
[2020-09-11] MEDS: Jantoven 2 MG Tablet PO (16:00)
[2020-09-11] MEDS: Atorvastatin Calcium 20 MG Tablet PO (21:28)
[2020-09-12 02:10] VITALS: PULSE 65; RESP 16; O2SAT 95
[2020-09-12 06:08] VITALS: BP 121/52; PULSE 63; RESP 16; TEMP 36.2; O2SAT 98
[2020-09-12] MEDS: Ramipril 10 MG Capsule PO (06:11)
[2020-09-12] MEDS: Furosemide 40 MG Tablet PO (06:11)
[2020-09-12] MEDS: Amiodarone 200 MG Tablet PO (06:11)
[2020-09-12] MEDS: Senna/Docusate Sodium 1 Tablet 2 TABLET PO (06:11)
[2020-09-12] MEDS: Menthol/Lanolin/Calamine/Znox 113 GM Tube 1 APPLIC TOPICAL ×2 (06:12→21:14)
[2020-09-12] MEDS: Levothyroxine 150 MCG Tablet PO (06:12)
[2020-09-12] MEDS: Acetaminophen 500 MG Tablet 1000 MG PO ×3 (06:13→21:13)
[2020-09-12] MEDS: Iron Polysaccharide Complex 150 MG CAPSULE PO (08:02)
[2020-09-12] MEDS: Carvedilol 25 MG Tablet PO ×2 (08:02→17:16)
[2020-09-12] MEDS: Folic Acid 1 MG Tablet PO (08:02)
[2020-09-12 08:06] LABS: Anion Gap 4 (5-15); BUN 35 mg/dL (7-18); BUN/Creat Ratio 26.9 RATIO (10-20); Calcium,Total 8.7 mg/dL (8.5-10.1); Chloride 111 mmol/L (98-107); EST Glomerular Filtration Rate 57 mL/min (>60); Est Glom Filt Rate - Afr Amer 68 mL/min (>60); Estimated Creatinine Clearance 32.59 ml/min; Glucose 85 mg/dL (74-106); Potassium 4.2 mmol/L (3.5-5.1); Sodium Level 143 mmol/L (136-145)
[2020-09-12 08:47] LABS: Absolute Lymphocyte Count 1.44 X10^3/uL (0.83-4.51); Absolute Neutrophil Count 4.5 X10^3/uL (2.0-7.7); Basophil# 0.04 X10^3/uL; Basophil% 0.6 % (0-1); Eosinophil# 0.22 X10^3/uL; Eosinophils% 3.2 % (0-5); Hematocrit 32.7 % (40-54); Hemoglobin 9.8 g/dL (13.0-16.5); Lymphocyte # 1.44 X10^3/ul (4.0); Lymphocyte % 21.1 % (19-41); Mean Corpuscular Hgb 28.3 pg (27.0-32.0); Mean Corpuscular Volume 94.5 fL (80-94); Mean Platelet Vol. 9.6 fl (6.2-12.0); Monocyte# 0.64 X10^3/uL; Monocyte% 9.4 % (0-10); NRBC Flagged by Analyzer 0 % (0-5); Neutrophil # 4.45 X10^3/uL (2.7-7.7); Neutrophil % 65.3 % (47-70); Platelet Count 280 K/mm3 (150-450); RBC Distribution Width CV 15.9 % (11.6-14.6); RBC Distribution Width SD 54.8 fl (35.1-43.9); Red Blood Count 3.46 M/mm3 (4.6-6.2); White Blood Count 6.8 K/mm3 (4.4-11.0)
[2020-09-12 14:07] VITALS: BP 125/41; PULSE 65; RESP 16; TEMP 36.8; O2SAT 95
[2020-09-12] MEDS: Jantoven 2 MG Tablet PO (17:16)
[2020-09-12 17:18] VITALS: BP 141/66; PULSE 66
[2020-09-12] MEDS: Atorvastatin Calcium 20 MG Tablet PO (21:13)
[2020-09-13] MEDS: Senna/Docusate Sodium 1 Tablet 2 TABLET PO (06:25)
[2020-09-13] MEDS: Levothyroxine 150 MCG Tablet PO (06:25)
[2020-09-13] MEDS: Ramipril 10 MG Capsule PO (06:25)
[2020-09-13] MEDS: Amiodarone 200 MG Tablet PO (06:25)
[2020-09-13] MEDS: Furosemide 40 MG Tablet PO (06:25)
[2020-09-13] MEDS: Acetaminophen 500 MG Tablet 1000 MG PO ×3 (06:25→21:14)
[2020-09-13] MEDS: Menthol/Lanolin/Calamine/Znox 113 GM Tube 1 APPLIC TOPICAL ×2 (06:28→21:15)
[2020-09-13 06:30] VITALS: BP 136/43; PULSE 62; RESP 16; TEMP 36.4; O2SAT 98
[2020-09-13] MEDS: Iron Polysaccharide Complex 150 MG CAPSULE PO (08:03)
[2020-09-13] MEDS: Carvedilol 25 MG Tablet PO ×2 (08:03→16:31)
[2020-09-13] MEDS: Folic Acid 1 MG Tablet PO (08:03)
[2020-09-13 13:08] VITALS: BP 133/59; PULSE 58; RESP 14; TEMP 36.7; O2SAT 95
[2020-09-13 16:23] VITALS: PULSE 67; RESP 16; O2SAT 96
[2020-09-13] MEDS: Jantoven 2 MG Tablet PO (16:31)
[2020-09-13] MEDS: Atorvastatin Calcium 20 MG Tablet PO (21:14)
[2020-09-14 06:02] LABS: International Normalized Ratio 2.9; Prothrombin Time (Protime)PT. 30.3 SECONDS (11.7-14.9)
[2020-09-14 06:18] VITALS: BP 149/47; PULSE 63; RESP 16; TEMP 36.2; O2SAT 94
[2020-09-14] MEDS: Senna/Docusate Sodium 1 Tablet 2 TABLET PO (06:21)
[2020-09-14] MEDS: Amiodarone 200 MG Tablet PO (06:22)
[2020-09-14] MEDS: Ramipril 10 MG Capsule PO (06:22)
[2020-09-14] MEDS: Furosemide 40 MG Tablet PO (06:22)
[2020-09-14] MEDS: Acetaminophen 500 MG Tablet 1000 MG PO ×3 (06:22→20:42)
[2020-09-14] MEDS: Levothyroxine 150 MCG Tablet PO (06:22)
[2020-09-14] MEDS: Menthol/Lanolin/Calamine/Znox 113 GM Tube 1 APPLIC TOPICAL ×2 (06:23→20:41)
[2020-09-14 08:56] VITALS: BP 145/66; PULSE 67
[2020-09-14] MEDS: Carvedilol 25 MG Tablet PO ×2 (08:58→16:54)
[2020-09-14] MEDS: Folic Acid 1 MG Tablet PO (08:58)
[2020-09-14] MEDS: Iron Polysaccharide Complex 150 MG CAPSULE PO (08:58)
[2020-09-14 12:14] VITALS: BP 126/41; PULSE 66; RESP 18; TEMP 36.6; O2SAT 98
[2020-09-14 14:11] VITALS: PULSE 68; RESP 18; O2SAT 97
[2020-09-14] MEDS: Jantoven 2 MG Tablet PO (16:54)
[2020-09-14] MEDS: Atorvastatin Calcium 20 MG Tablet PO (20:42)
[2020-09-15 06:00] VITALS: BP 165/44; PULSE 64; RESP 17; TEMP 36.4; O2SAT 96
[2020-09-15] MEDS: Acetaminophen 500 MG Tablet 1000 MG PO ×3 (06:04→20:44)
[2020-09-15] MEDS: Levothyroxine 150 MCG Tablet PO (06:05)
[2020-09-15] MEDS: Furosemide 40 MG Tablet PO (06:05)
[2020-09-15] MEDS: Ramipril 10 MG Capsule PO (06:05)
[2020-09-15] MEDS: Amiodarone 200 MG Tablet PO (06:05)
[2020-09-15] MEDS: Menthol/Lanolin/Calamine/Znox 113 GM Tube 1 APPLIC TOPICAL ×2 (06:08→20:45)
[2020-09-15] MEDS: Folic Acid 1 MG Tablet PO (08:39)
[2020-09-15] MEDS: Iron Polysaccharide Complex 150 MG CAPSULE PO (08:39)
[2020-09-15] MEDS: Carvedilol 25 MG Tablet PO ×2 (08:40→17:26)
[2020-09-15 08:41] VITALS: BP 157/71; PULSE 71
[2020-09-15 10:00] VITALS: PULSE 59; RESP 16; O2SAT 99
[2020-09-15 13:17] VITALS: BP 127/40; PULSE 64; RESP 16; TEMP 36.7; O2SAT 98
--- NOTE | 2020-09-15 14:05 | CASEMGMT ---
Social Work Spoke with pt about request to DC 09/25. IDT agreeable. Pt requests [facility] - referral made for PT/OT. No DME needs. to transport. Plan: DC home with 09/25, [facility] PT/OT CODEY LozanoW
--- NOTE | 2020-09-15 15:00 | CHAPLAIN ---
Type of Pastoral Visit ___ Initial Visit _x__ Follow-up Visit ___ On-call Visit ___ General Patient Visit ___ Spiritual Assessment ___ Family Conference ___ Bereavement ___ Rapid Response ___ Code Blue ___ Other (describe below) Pastoral Care Referral From _x__ Patient ___ Family ___ Nurse ___ Physician ___ Computer Hardware Technician ___ Skein Straightener ___ Other (describe below) Sacrament/Intervention _x__ Active listening ___ Anointing ___ Scientology ___ Bereavement ___ Communion ___ Trupti exploration ___ ___ Life review _x__ Prayer ___ Reconciliation ___ Sacrament of Sick _x__ Supportive presence ___ Wedding ___ Other (describe below) Pastoral Comments
[2020-09-15] MEDS: Jantoven 2 MG Tablet PO (17:26)
--- NOTE | 2020-09-15 19:20 | DCINST_ITS ---
- Discharge Diagnoses Current Active Problems: Current Active and Chronic Problems (Last Reviewed 08/27/20 @ 01:[address] Naveed Rick MD) Chronic left hip pain (Chronic) Hypoxia (Acute) Bradycardia (Acute) Postoperative anemia (Acute) Aortic stenosis (Chronic) DVT (deep venous thrombosis) (Chronic) Chronic kidney disease (Chronic) Peripheral arterial occlusive disease (Chronic) Thoracic aortic aneurysm (Chronic) Abdominal aortic aneurysm (Chronic) BPH (benign prostatic hyperplasia) (Chronic) Urinary retention (Chronic) Debility (Chronic) Hyperlipidemia (Chronic) Coronary artery disease (Chronic) Hypertension (Chronic) COPD (chronic obstructive pulmonary disease) (Chronic) Hypothyroidism (Chronic) Atrial fibrillation (Chronic) You will use the following diet at home:: No restrictions, Regular Your food should be the consistency of: Regular Your liquids should be the consistency of: Regular/Thin Discharge Activity: Return to Normal Activity, May Shower, Use Walker Weight Bearing Status: Weight bearing as tolerated Call your doctor if you observe: Fever of 101 or Higher, Inability to urinate, Inability to have a bowel movement, Shortness of breath, Chest pain, Uncontrolled pain Allergies/Adverse Reactions: Allergies No Known Allergies Allergy (Verified 08/21/20 14:15) Medications to take at Discharge nitroglycerin 0.4 mg sublingual tablet 0.4 mg SUBLINGUAL Q5-15M PRN 04/23/18 amiodarone 200 mg tablet 200 mg PO DAILY #30 tab 08/26/19 levothyroxine 100 mcg tablet 150 mcg PO DAILY tab 12/04/19 Furosemide 40 mg PO DAILY 04/07/20 Rosuvastatin Calcium [Crestor] 10 mg PO QHS 05/02/20 carvedilol 25 mg tablet 25 mg PO BID 08/21/20 cholecalciferol (vitamin D3) 50 mcg (2,000 unit) capsule 50 mcg PO DAILY 08/21 clopidogrel 75 mg tablet 75 mg PO DAILY 08/21/20 folic acid 1 mg tablet 1 mg PO DAILY 08/21/20 Acetaminophen [Tylenol] 1,000 mg PO Q8 08/28/20 Calcium Carbonate [Tums] 500 mg PO Q6H PRN PRN tab 08/28/20 Ramipril [Altace] 10 mg PO DAILY 08/28/20 Iron Polysaccharide Complex [Ferrex 150] 150 mg PO DAILYCM #30 cap 09/15/20 Menthol/Lanolin/Calamine/Znox [Calmoseptine Ointment] 1 applic TOPICAL 0600,2200 tube 09/15/20 Warfarin [Coumadin] 3 mg PO DAILY@1700 #30 tab 09/15/20 The following prescriptions were given: Warfarin [Coumadin] 3 mg PO DAILY@1700 #30 tab Transmission Status: Pending to [employer] #30 Iron Polysaccharide Complex [Ferrex 150] 150 mg PO DAILYCM #30 cap Transmission Status: Pending to [employer] #30 Orders to be completed after discharge: Prothrombin Time w/INR Time Frame: 3 Days, Facility: [facility], Location: Laboratory Primary Care Physician: Ihsan Modi MD [Primary Care Provider] - Please follow up with your Primary Care Physician in: 1 week. Test Results: Test results from this visit will be discussed in further detail at your follow- up appointment, if applicable. Please Follow Up With: Tong Lam MD When: 4 weeks Proposed Discharge Date: 09/25/20
--- NOTE | 2020-09-15 19:21 | DS.PCM_ITS ---
Discharge Date and Diagnosis - Problem List Patient Problems: Active and Suspected Problems (Last Reviewed 08/27/20 @ 01:[address] Naveed Rick MD) Hypoxia (Acute) Bradycardia (Acute) Postoperative anemia (Acute) Date of Admission: 08/28/20 Date of Discharge: 09/25/20 - Primary Discharge Diagnosis Acute Problems: Active Problems (Last Reviewed 08/27/20 @ 01:[address] Naveed Rick MD) Hypoxia (Acute) Bradycardia (Acute) Postoperative anemia (Acute) - Secondary Discharge Diagnosis Chronic Problems: Chronic Problems (Last Reviewed 08/27/20 @ 01:[address] Naveed Rick MD) Chronic left hip pain (Chronic) Thoracoabdominal aneurysm (Chronic) Placement of a [place] VBX 6 x 29 balloon expandable covered stent into the left renal artery aneurysm and dissection, placement of an 8 x 150 [place] to left popliteal aneurysm and left popliteal artery postdilated tension with a 8 x 100 termite treater balloon on 04/16/2020 at [facility] with Dr. Brody Scott; Fall (Chronic) Closed left hip fracture (Chronic) Aortic stenosis (Chronic) DVT (deep venous thrombosis) (Chronic) Anemia (Chronic) Chronic kidney disease (Chronic) Peripheral arterial occlusive disease (Chronic) Thoracic aortic aneurysm (Chronic) Abdominal aortic aneurysm (Chronic) BPH (benign prostatic hyperplasia) (Chronic) Urinary retention (Chronic) Hip fracture (Chronic) Debility (Chronic) Closed right hip fracture (Chronic) Hyperlipidemia (Chronic) Coronary artery disease (Chronic) Hypertension (Chronic) Chronic diastolic heart failure (Chronic) Mixed hyperlipidemia (Chronic) Chronic heart failure with preserved ejection fraction (Chronic) History of aortic valve repair (Chronic ~10/28/07) Hx of repair of ascending aorta (Chronic ~10/28/07) 32mm [place] graft 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) Essential hypertension (Chronic) Presence of stent in coronary artery (Chronic ~05/24/06) PCI/ILANA of the of 2nd Diagonal instent restenosis 05/24/06 Atherosclerotic heart disease of [place] coronary artery without angina pectoris (Chronic) COPD (chronic obstructive pulmonary disease) (Chronic) Tobacco abuse (Chronic) Tobacco dependence in remission (Chronic) Pulmonary embolism (Chronic) Hypothyroidism (Chronic) Atrial fibrillation (Chronic) Hospital Course and Treatment Imaging Results: 08/31/20 11:45 Diet: Regular - No Added Salt Food consistency:: Regular Liquid Consistency:: Regular/Thin Type of Dietary Supplement:: Ensure Enlive Is pt able to select menu?: Yes Diet Comments: 8 oz vincenzo ensure enlive w/ B; small portions Clinical Impression(s) from Imaging Studies KUB X-Ray 09/02/20 14:28 IMPRESSION: Moderate amount of fecal material is seen in the colon. Electronically Signed: Milan Cao, at 15:13 EST , Service support , Labs (Last 48 Hours) 09/14/20 05:05 PT 30.3 H INR 2.9 Operations: None Procedures: None Summary of Care Provided: The patient is a 80 year old Male with below past medical history hospitalized with intractable left hip pain, underwent conversion from left hip cephalomedullary nail to left total hip replacement 08/26/20, postoperative course complicated by anemia requiring transfusion, urinary retention, admitted to TCU with debility, here for rehabilitation, strengthening, prior to discharge home with . Discharge home with , [facility] PT/OT. Patient Problems: Active and Suspected Problems (Last Reviewed 08/27/20 @ 01:[address] Naveed Rick MD) Hypoxia (Acute) Bradycardia (Acute) Postoperative anemia (Acute) - Physical Exam Vitals/I&O's: Vital Signs Temp Pulse Resp BP Pulse Ox 98.1 F 64 16 127/40 H 98 09/15/20 13:17 09/15/20 13:17 09/15/20 13:17 09/15/20 13:17 09/15/20 13:17 Oxygen Delivery Method Room Air Weight: 56.841 kg Body Mass Index (BMI) 29.2 Intake and Output for Last 24 Hours 09/13/20 09/14/20 09/15/20 23:59 23:59 23:59 Intake Total 960 / 960 1080 / 1080 960 / 960 Balance 960 / 960 1080 / 1080 960 / 960 Current Medications Acetaminophen (Acetaminophen 500 Mg Tablet) 1,000 mg PO Q8 SILVERIO Last Admin: 09/15/20 14:18 Dose: 1,000 mg Documented by: Amiodarone HCl (Amiodarone 200 Mg Tablet) 200 mg PO DAILY [facility] Last Admin: 09/15/20 06:05 Dose: 200 mg Documented by: Atorvastatin Calcium (Atorvastatin Calcium 20 Mg Tablet) 20 mg PO QHS [facility] Last Admin: 09/14/20 20:42 Dose: 20 mg Documented by: Bisacodyl (Bisacodyl 10 Mg Suppository) 10 mg RECTAL DAILY PRN PRN Reason: Constipation Calamine/Phenol (Menthol/Lanolin/Calamine/Znox 113 Gm Tube) 1 applic TOPICAL 0600,2200 [facility]; Protocol Last Admin: 09/15/20 06:08 Dose: 1 applicatio Documented by: Calcium Carbonate (Calcium Carbonate 500 Mg Tablet) 500 mg PO Q6H PRN PRN PRN Reason: HEARTBURN Last Admin: 09/10/20 20:24 Dose: 500 mg Documented by: Carvedilol (Carvedilol 25 Mg Tablet) 25 mg PO BIDCM [facility] Last Admin: 09/15/20 17:26 Dose: 25 mg Documented by: Cholecalciferol (Cholecalciferol (Vit D3) 1,000 Unit (25mcg)) 2,000 unit PO DAILY [facility] Last Admin: 09/15/20 06:04 Dose: 2,000 unit Documented by: Folic Acid (Folic Acid 1 Mg Tablet) [facility] Last Admin: 09/15/20 08:39 Dose: 1 mg Documented by: Furosemide (Furosemide 40 Mg Tablet) 40 mg PO DAILY [facility] Last Admin: 09/15/20 06:05 Dose: 40 mg Documented by: Levothyroxine Sodium (Levothyroxine 150 Mcg Tablet) 150 mcg PO DAILY [facility] Last Admin: 09/15/20 06:05 Dose: 150 mcg Documented by: Magnesium Hydroxide (Magnesium Hydroxide 30 Ml Udc) 30 ml PO DAILY PRN PRN Reason: Constipation Nitroglycerin (Nitroglycerin (Inpatient Use) 0.4 Mg Tab.Subl) 0.4 mg SUBLINGUAL Q5M PRN PRN Reason: Chest Pain Score 1-10 Ondansetron HCl (Ondansetron Odt 4 Mg Tablet) 4 mg PO Q8H PRN PRN PRN Reason: NAUSEA/VOMITING Last Admin: 09/02/20 14:44 Dose: 4 mg Documented by: Oxycodone HCl (Oxycodone 5 Mg Tablet) 5 mg PO Q4H PRN PRN PRN Reason: Pain Score 4-10 Last Admin: 08/30/20 21:45 Dose: 5 mg Documented by: Polyethylene Glycol (Polyethylene Glycol 3350 17 Gm Packet) 17 gm PO DAILY [facility] Last Admin: 09/15/20 06:05 Dose: Not Given Documented by: Polysaccharide Iron Complex (Iron Polysaccharide Complex 150 Mg Capsule) 150 mg PO DAILYCM [facility] Last Admin: 09/15/20 08:39 Dose: 150 mg Documented by: Ramipril (Ramipril 10 Mg Capsule) 10 mg PO DAILY [facility] Last Admin: 09/15/20 06:05 Dose: 10 mg Documented by: Senna/Docusate Sodium (Senna/Docusate Sodium 1 Tablet) 2 tablet PO BID [facility] Last Admin: 09/15/20 17:27 Dose: Not Given Documented by: Sodium Chloride (0.9% Saline Lock 10 Ml Syringe) 10 - 40 ml IV UD PRN PRN Reason: SALINE FLUSH Warfarin Sodium (Jantoven 2 Mg Tablet) 2 mg PO DAILY@1700 [facility] Last Admin: 09/15/20 17:26 Dose: 2 mg Documented by: Discharge Diet: No Restrictions Discharge Activity: Return to Normal Activity, May Shower, Use Walker Weight Bearing Status: Weight bearing as tolerated Call your doctor if you observe: Fever of 101 or Higher, Inability to urinate, I nability to have a bowel movement, Shortness of breath, Chest pain, Uncontrolled pain Home Medications: Medications to take at Discharge nitroglycerin 0.4 mg sublingual tablet 0.4 mg SUBLINGUAL Q5-15M PRN 04/23/18 amiodarone 200 mg tablet 200 mg PO DAILY #30 tab 08/26/19 levothyroxine 100 mcg tablet 150 mcg PO DAILY tab 12/04/19 Furosemide 40 mg PO DAILY 04/07/20 Rosuvastatin Calcium [Crestor] 10 mg PO QHS 05/02/20 carvedilol 25 mg tablet 25 mg PO BID 08/21/20 cholecalciferol (vitamin D3) 50 mcg (2,000 unit) capsule 50 mcg PO DAILY 08/21/20 clopidogrel 75 mg tablet 75 mg PO DAILY 08/21/20 folic acid 1 mg tablet 1 mg PO DAILY 08/21/20 Acetaminophen [Tylenol] 1,000 mg PO Q8 08/28/20 Calcium Carbonate [Tums] 500 mg PO Q6H PRN PRN tab 08/28/20 Ramipril [Altace] 10 mg PO DAILY 08/28/20 Iron Polysaccharide Complex [Ferrex 150] 150 mg PO DAILYCM #30 cap 09/15/20 Menthol/Lanolin/Calamine/Znox [Calmoseptine Ointment] 1 applic TOPICAL 0600,2200 tube 09/15/20 Warfarin [Coumadin] 3 mg PO DAILY@1700 #30 tab 09/15/20 Following Prescriptions Were Given to Patient: Warfarin [Coumadin] 3 mg PO DAILY@1700 #30 tab Transmission Status: Pending to [employer] #30 Iron Polysaccharide Complex [Ferrex 150] 150 mg PO DAILYCM #30 cap Transmission Status: Pending to [employer] #30 Other Amb Orders: Prothrombin Time w/INR Time Frame: 3 Days, Facility: [facility], Location: Laboratory Primary Care Physician: Ihsan Modi MD [Primary Care Provider] - Please follow up with your Primary Care Physician in: 1 week. Please Follow Up With: Tong Lam MD When: 4 weeks Disposition: Home with Home Health Minutes spent on discharge:: 35 Patient Condition:: Stable Medical Necessity - Tobacco Use Smoking Status: Former smoker Tobacco Use: Non-smoker Meaningful Use Info Meaningful Use Diagnoses (Choose all that apply): None applicable
[2020-09-15] MEDS: Atorvastatin Calcium 20 MG Tablet PO (20:44)
[2020-09-16 06:12] VITALS: BP 157/69; PULSE 63; RESP 16; TEMP 36.6; O2SAT 98
[2020-09-16] MEDS: Senna/Docusate Sodium 1 Tablet 2 TABLET PO ×2 (06:13→16:49)
[2020-09-16] MEDS: Furosemide 40 MG Tablet PO (06:14)
[2020-09-16] MEDS: Amiodarone 200 MG Tablet PO (06:14)
[2020-09-16] MEDS: Ramipril 10 MG Capsule PO (06:14)
[2020-09-16] MEDS: Levothyroxine 150 MCG Tablet PO (06:14)
[2020-09-16] MEDS: Menthol/Lanolin/Calamine/Znox 113 GM Tube 1 APPLIC TOPICAL ×2 (06:14→21:01)
[2020-09-16] MEDS: Acetaminophen 500 MG Tablet 1000 MG PO ×3 (06:14→21:00)
[2020-09-16] MEDS: Polyethylene Glycol 3350 17 GM PACKET PO (06:15)
[2020-09-16] MEDS: Folic Acid 1 MG Tablet PO (08:27)
[2020-09-16] MEDS: Iron Polysaccharide Complex 150 MG CAPSULE PO (08:27)
[2020-09-16] MEDS: Carvedilol 25 MG Tablet PO ×2 (08:28→16:49)
[2020-09-16 08:30] VITALS: BP 160/70; PULSE 66
[2020-09-16 13:40] VITALS: BP 141/37; PULSE 57; RESP 16; TEMP 36.3; O2SAT 96
[2020-09-16] MEDS: Jantoven 2 MG Tablet PO (16:49)
[2020-09-16] MEDS: Atorvastatin Calcium 20 MG Tablet PO (21:00)
[2020-09-17 05:30] VITALS: BP 165/47; PULSE 61; RESP 16; TEMP 36.7; O2SAT 97
[2020-09-17] MEDS: Acetaminophen 500 MG Tablet 1000 MG PO ×3 (05:31→21:59)
[2020-09-17] MEDS: Amiodarone 200 MG Tablet PO (05:31)
[2020-09-17] MEDS: Levothyroxine 150 MCG Tablet PO (05:32)
[2020-09-17] MEDS: Ramipril 10 MG Capsule PO (05:32)
[2020-09-17] MEDS: Menthol/Lanolin/Calamine/Znox 113 GM Tube 1 APPLIC TOPICAL ×2 (05:33→22:02)
[2020-09-17] MEDS: Furosemide 40 MG Tablet PO (05:33)
[2020-09-17 05:58] LABS: International Normalized Ratio 2.8; Prothrombin Time (Protime)PT. 28.8 SECONDS (11.7-14.9)
[2020-09-17] MEDS: Folic Acid 1 MG Tablet PO (08:11)
[2020-09-17] MEDS: Iron Polysaccharide Complex 150 MG CAPSULE PO (08:11)
[2020-09-17] MEDS: Carvedilol 25 MG Tablet PO ×2 (08:11→17:18)
[2020-09-17 14:27] VITALS: BP 135/59; PULSE 67; RESP 14; TEMP 36.9; O2SAT 94
--- NOTE | 2020-09-17 15:04 | NURSING ---
Pt updated on two positive cases of Covid in staff members tested on Friday 09/14
--- NOTE | 2020-09-17 15:27 | NURSING ---
Resident and family notified of staff member testing positive for COVID
[2020-09-17] MEDS: Jantoven 2 MG Tablet PO (17:18)
[2020-09-17] MEDS: Atorvastatin Calcium 20 MG Tablet PO (21:59)
[2020-09-17 22:05] VITALS: PULSE 66; RESP 16; O2SAT 96
[2020-09-18 04:00] VITALS: BP 187/71; PULSE 64; RESP 18; TEMP 36.6; O2SAT 98
[2020-09-18] MEDS: Furosemide 40 MG Tablet PO (06:06)
[2020-09-18] MEDS: Ramipril 10 MG Capsule PO (06:06)
[2020-09-18] MEDS: Senna/Docusate Sodium 1 Tablet 2 TABLET PO (06:06)
[2020-09-18] MEDS: Levothyroxine 150 MCG Tablet PO (06:06)
[2020-09-18] MEDS: Amiodarone 200 MG Tablet PO (06:07)
[2020-09-18] MEDS: Acetaminophen 500 MG Tablet 1000 MG PO ×3 (06:07→20:26)
[2020-09-18] MEDS: Menthol/Lanolin/Calamine/Znox 113 GM Tube 1 APPLIC TOPICAL ×2 (06:09→20:26)
[2020-09-18] MEDS: Iron Polysaccharide Complex 150 MG CAPSULE PO (08:16)
[2020-09-18] MEDS: Carvedilol 25 MG Tablet PO ×2 (08:16→17:50)
[2020-09-18] MEDS: Folic Acid 1 MG Tablet PO (08:16)
[2020-09-18 13:45] VITALS: BP 132/69; PULSE 71; RESP 17; TEMP 36.7; O2SAT 98
[2020-09-18] MEDS: Jantoven 2 MG Tablet PO (17:50)
[2020-09-18] MEDS: Atorvastatin Calcium 20 MG Tablet PO (20:27)
[2020-09-19 05:44] VITALS: BP 156/66; PULSE 57; RESP 18; TEMP 36.6; O2SAT 97
[2020-09-19] MEDS: Menthol/Lanolin/Calamine/Znox 113 GM Tube 1 APPLIC TOPICAL ×2 (05:46→20:17)
[2020-09-19] MEDS: Ramipril 10 MG Capsule PO (05:46)
[2020-09-19] MEDS: Amiodarone 200 MG Tablet PO (05:46)
[2020-09-19] MEDS: Acetaminophen 500 MG Tablet 1000 MG PO ×3 (05:46→20:17)
[2020-09-19] MEDS: Furosemide 40 MG Tablet PO (05:46)
[2020-09-19] MEDS: Levothyroxine 150 MCG Tablet PO (05:46)
[2020-09-19 08:14] LABS: Absolute Lymphocyte Count 1.13 X10^3/uL (0.83-4.51); Absolute Neutrophil Count 3.7 X10^3/uL (2.0-7.7); Basophil# 0.02 X10^3/uL; Basophil% 0.4 % (0-1); Eosinophil# 0.12 X10^3/uL; Eosinophils% 2.2 % (0-5); Hemoglobin 9.5 g/dL (13.0-16.5); Lymphocyte # 1.13 X10^3/ul (4.0); Lymphocyte % 20.5 % (19-41); Mean Corp Hgb Conc 30.6 g/dL (32-36); Mean Corpuscular Hgb 28.4 pg (27.0-32.0); Mean Corpuscular Volume 92.5 fL (80-94); Mean Platelet Vol. 9.6 fl (6.2-12.0); Monocyte# 0.55 X10^3/uL; NRBC Flagged by Analyzer 0 % (0-5); Neutrophil # 3.65 X10^3/uL (2.7-7.7); Neutrophil % 66.2 % (47-70); Platelet Count 221 K/mm3 (150-450); RBC Distribution Width CV 15.9 % (11.6-14.6); RBC Distribution Width SD 54.5 fl (35.1-43.9); Red Blood Count 3.35 M/mm3 (4.6-6.2); White Blood Count 5.5 K/mm3 (4.4-11.0)
[2020-09-19] MEDS: Iron Polysaccharide Complex 150 MG CAPSULE PO (08:34)
[2020-09-19] MEDS: Folic Acid 1 MG Tablet PO (08:35)
[2020-09-19] MEDS: Carvedilol 25 MG Tablet PO ×2 (08:35→17:08)
[2020-09-19 08:41] LABS: Anion Gap 5 (5-15); BUN 39 mg/dL (7-18); BUN/Creat Ratio 34.2 RATIO (10-20); Calcium,Total 8.6 mg/dL (8.5-10.1); Chloride 108 mmol/L (98-107); Creatinine, Serum 1.14 mg/dL (0.70-1.30); EST Glomerular Filtration Rate 66 mL/min (>60); Est Glom Filt Rate - Afr Amer 80 mL/min (>60); Estimated Creatinine Clearance 37.16 ml/min; Glucose 83 mg/dL (74-106); Potassium 3.7 mmol/L (3.5-5.1); Sodium Level 141 mmol/L (136-145)
[2020-09-19 10:00] VITALS: PULSE 69; O2SAT 97
[2020-09-19 13:18] VITALS: BP 127/51; PULSE 65; RESP 15; TEMP 36.8; O2SAT 97
[2020-09-19] MEDS: Jantoven 2 MG Tablet PO (17:07)
[2020-09-19] MEDS: Atorvastatin Calcium 20 MG Tablet PO (20:17)
[2020-09-20] MEDS: Furosemide 40 MG Tablet PO (05:13)
[2020-09-20] MEDS: Acetaminophen 500 MG Tablet 1000 MG PO ×3 (05:13→20:02)
[2020-09-20] MEDS: Ramipril 10 MG Capsule PO (05:13)
[2020-09-20] MEDS: Amiodarone 200 MG Tablet PO (05:13)
[2020-09-20] MEDS: Levothyroxine 150 MCG Tablet PO (05:13)
[2020-09-20] MEDS: Menthol/Lanolin/Calamine/Znox 113 GM Tube 1 APPLIC TOPICAL ×2 (05:15→20:02)
[2020-09-20 05:19] VITALS: BP 165/72; PULSE 61; RESP 16; TEMP 36.3; O2SAT 97
[2020-09-20] MEDS: Carvedilol 25 MG Tablet PO ×2 (07:58→17:22)
[2020-09-20] MEDS: Folic Acid 1 MG Tablet PO (07:58)
[2020-09-20] MEDS: Iron Polysaccharide Complex 150 MG CAPSULE PO (07:58)
[2020-09-20 13:54] VITALS: BP 159/55; PULSE 66; RESP 18; TEMP 36.4; O2SAT 98
[2020-09-20] MEDS: Jantoven 2 MG Tablet PO (17:22)
[2020-09-20] MEDS: Atorvastatin Calcium 20 MG Tablet PO (20:02)
[2020-09-21 05:14] VITALS: BP 189/73; PULSE 65; RESP 16; TEMP 36.3; O2SAT 97
[2020-09-21] MEDS: Acetaminophen 500 MG Tablet 1000 MG PO ×3 (05:18→20:04)
[2020-09-21] MEDS: Ramipril 10 MG Capsule PO (05:18)
[2020-09-21] MEDS: Levothyroxine 150 MCG Tablet PO (05:18)
[2020-09-21] MEDS: Furosemide 40 MG Tablet PO (05:19)
[2020-09-21] MEDS: Amiodarone 200 MG Tablet PO (05:19)
[2020-09-21] MEDS: Senna/Docusate Sodium 1 Tablet 2 TABLET PO (05:20)
[2020-09-21] MEDS: Menthol/Lanolin/Calamine/Znox 113 GM Tube 1 APPLIC TOPICAL ×2 (05:20→20:03)
[2020-09-21 06:39] LABS: International Normalized Ratio 2.3; Prothrombin Time (Protime)PT. 24.6 SECONDS (11.7-14.9)
[2020-09-21 07:11] VITALS: BP 169/75
[2020-09-21] MEDS: Iron Polysaccharide Complex 150 MG CAPSULE PO (09:15)
[2020-09-21] MEDS: Carvedilol 25 MG Tablet PO ×2 (09:15→17:14)
[2020-09-21] MEDS: Folic Acid 1 MG Tablet PO (09:15)
--- NOTE | 2020-09-21 09:36 | NURSING ---
new order for podiatry consult for nail trimming. Dr Max notified.
[2020-09-21 10:35] VITALS: PULSE 63; RESP 16; O2SAT 97
[2020-09-21 14:29] VITALS: BP 149/55; PULSE 64; RESP 16; TEMP 35.8; O2SAT 95
[2020-09-21] MEDS: Jantoven 2 MG Tablet PO (17:14)
--- NOTE | 2020-09-21 17:38 | VDLE_ITS ---
Reason For Study: Pain Procedure LEFT This is a venous duplex using B-mode, color GSV is normal. flow and spectral Doppler. CFV is compressible, spontaneous, phasic, Exam performed portable in patient room. competent, and demonstrates normal A preliminary report was called and/or faxed augmentation. to TCU. FV is compressible, spontaneous, phasic, competent and demonstrates normal augmentation. POP V is compressible, spontaneous, phasic, competent and demonstrates normal augmentation. T/P Trunk is compressible. PTV is compressible. LT PerV is compressible. Interpretation Summary Deep veins of the left lower extremity are patent and compressible segmentally. There is no evidence of left lower extremity deep vein thrombosis. Valvular competence appears intact within the proximal deep venous system on the left . The left great saphenous vein appears patent and compressible segmentally. Ordering Physician: Aidan Santos Referring Physician: Abrahan Modi MD Performed By: Siobhan Mike RVT
--- NOTE | 2020-09-21 17:39 | ART_ITS ---
Reason For Study: Pain Procedure A bilateral lower extremity continuous wave Doppler with analog waveform analysis and ankle brachial indexes. Left Segmental Pressures Left brachial= 153mmHg. Left posterior tibial artery = 154mmHg. Left dorsalis pedis artery = 158mmHg. The left dorsalis pedis waveforms are triphasic. The left posterior tibial artery waveforms are triphasic. Right Segmental Pressures Right brachial= 149mmHg. Right posterior tibial artery = 166mmHg. Right dorsalis pedis artery = 146mmHg. The right dorsalis pedis waveforms are triphasic. The right posterior tibial artery waveforms are triphasic. Indices The right ankle brachial index by the dorsalis pedis is 0.95. The right ankle brachial index by the posterior tibial artery is 1.08. The left ankle brachial index by the dorsalis pedis is 1.03. The left ankle brachial index by the posterior tibial artery is 1.01. Interpretation Summary Triphasic Doppler waveforms are noted at ankle level bilaterally. Resting ankle-brachial indices are normal bilaterally. There is no evidence of significant arterial occlusive disease in the lower extremities bilaterally. Ordering Physician: Aidan Santos Referring Physician: Abrahan Modi MD Performed By: Siobhan Mike RVT
[2020-09-21] MEDS: Atorvastatin Calcium 20 MG Tablet PO (20:04)
[2020-09-22 04:00] VITALS: BP 187/70; PULSE 62; RESP 18; TEMP 36.4; O2SAT 97
[2020-09-22] MEDS: Furosemide 40 MG Tablet PO (05:44)
[2020-09-22] MEDS: Levothyroxine 150 MCG Tablet PO (05:44)
[2020-09-22] MEDS: Acetaminophen 500 MG Tablet 1000 MG PO ×3 (05:44→20:48)
[2020-09-22] MEDS: Ramipril 10 MG Capsule PO (05:44)
[2020-09-22] MEDS: Amiodarone 200 MG Tablet PO (05:44)
[2020-09-22] MEDS: Senna/Docusate Sodium 1 Tablet 2 TABLET PO (05:44)
[2020-09-22] MEDS: Menthol/Lanolin/Calamine/Znox 113 GM Tube 1 APPLIC TOPICAL ×2 (05:45→20:48)
[2020-09-22 08:29] VITALS: BP 170/67; PULSE 68
[2020-09-22] MEDS: Iron Polysaccharide Complex 150 MG CAPSULE PO (08:29)
[2020-09-22] MEDS: Carvedilol 25 MG Tablet PO ×2 (08:29→17:49)
[2020-09-22] MEDS: Folic Acid 1 MG Tablet PO (08:29)
[2020-09-22 14:24] VITALS: BP 150/66; PULSE 67; RESP 14; TEMP 36.3; O2SAT 96
[2020-09-22] MEDS: Jantoven 2 MG Tablet PO (17:49)
--- NOTE | 2020-09-22 18:37 | NURSING ---
DR. LONGO PIG LEAD MELTER HELPER TRIMMED PT TOE NAILS.
[2020-09-22] MEDS: Atorvastatin Calcium 20 MG Tablet PO (20:49)
--- NOTE | 2020-09-22 20:56 | PCM.CONS.GEN ---
Problem List (1) Other specified peripheral vascular diseases Status: Chronic (2) Corns and callosities Status: Chronic (3) Tinea unguium Status: Chronic (4) Failed total hip arthroplasty Status: Acute (5) Chronic left hip pain Status: Chronic (6) Peripheral arterial occlusive disease Status: Chronic Reason for Consult Date of Consultation: 09/22/20 Reason for Consultation: foot care History of Present Illness: The patient is a 80 year old M who presents for removal of hardware from left hip. He is recovering from the operation in TCU. Patient normally sees Dr Dumont for his foot care but missed his appointment because of his hip. Patient is requesting help with his nails and calluses. Patient has significant vascular disease and has had stents placed at the [facility] in the past. [] Past Medical History Past Medical History (Chronic Problems): Chronic Problems (Last Reviewed 08/27/20 @ 01:[address] Naveed Rick MD) Chronic left hip pain (Chronic) Other specified peripheral vascular diseases (Chronic) Corns and callosities (Chronic) Tinea unguium (Chronic) Thoracoabdominal aneurysm (Chronic) Placement of a [place] VBX 6 x 29 balloon expandable covered stent into the left renal artery aneurysm and dissection, placement of an 8 x 150 Viabahn to left popliteal aneurysm and left popliteal artery postdilated tension with a 8 x 100 customer service operator balloon on 04/16/2020 at [facility] with Dr. Brody Scott; Fall (Chronic) Closed left hip fracture (Chronic) Aortic stenosis (Chronic) DVT (deep venous thrombosis) (Chronic) Anemia (Chronic) Chronic kidney disease (Chronic) Peripheral arterial occlusive disease (Chronic) Thoracic aortic aneurysm (Chronic) Abdominal aortic aneurysm (Chronic) BPH (benign prostatic hyperplasia) (Chronic) Urinary retention (Chronic) Hip fracture (Chronic) Debility (Chronic) Closed right hip fracture (Chronic) Hyperlipidemia (Chronic) Coronary artery disease (Chronic) Hypertension (Chronic) Chronic diastolic heart failure (Chronic) Mixed hyperlipidemia (Chronic) Chronic heart failure with preserved ejection fraction (Chronic) History of aortic valve repair (Chronic ~10/28/07) Hx of repair of ascending aorta (Chronic ~10/28/07) 32mm Hem[place]ield graft 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) Onset Date: ~10/28/07 I71.01 Essential hypertension (Chronic) I10 Atherosclerotic heart disease of [place] coronary artery without angina pectoris (Chronic) I25.10 Tobacco dependence in remission (Chronic) F17.201 Pulmonary embolism (Chronic) I26.99 Hypothyroidism (Chronic) E03.9 Atrial fibrillation (Chronic) 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) I71.3 Squamous cell carcinoma of skin (Inactive) C44.92 Allergies No Known Allergies Allergy (Verified 08/21/20 14:15) Home Medications: Ambulatory Orders Medication Instructions Recorded nitroglycerin 0.4 mg sublingual 0.4 mg SUBLINGUAL Q5-15M PRN 04/23/18 tablet amiodarone 200 mg tablet 200 mg PO DAILY #30 tab 08/26/19 levothyroxine 100 mcg tablet 150 mcg PO DAILY tab 12/04/19 Furosemide 40 mg PO DAILY 04/07/20 Rosuvastatin Calcium [Crestor] 10 mg PO QHS 05/02/20 carvedilol 25 mg tablet 25 mg PO BID 08/21/20 cholecalciferol (vitamin D3) 50 50 mcg PO DAILY 08/21/20 mcg (2,000 unit) capsule clopidogrel 75 mg tablet 75 mg PO DAILY 08/21/20 folic acid 1 mg tablet 1 mg PO DAILY 08/21/20 Acetaminophen [Tylenol] 1,000 mg PO Q8 08/28/20 Calcium Carbonate [Tums] 500 mg PO Q6H PRN PRN tab 08/28/20 Ramipril [Altace] 10 mg PO DAILY 08/28/20 Iron Polysaccharide Complex 150 mg PO DAILYCM #30 cap 09/15/20 [Ferrex 150] Menthol/Lanolin/Calamine/Znox 1 applic TOPICAL 0600,2200 tube 09/15/20 [Calmoseptine Ointment] Warfarin [Coumadin] 3 mg PO DAILY@1700 #30 tab 09/15/20 Surgical History: Surgical History (Last Reviewed 08/27/20 @ 01:[address] Naveed Rick MD) Thoracoabdominal aneurysm (Chronic) I71.6 Placement of a [place] VBX 6 x 29 balloon expandable covered stent into the left renal artery aneurysm and dissection, placement of an 8 x 150 Viabahn to left popliteal aneurysm and left popliteal artery postdilated tension with a 8 x 100 customer service operator balloon on 04/16/2020 at [facility] with Dr. 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 Psychiatric History: No pertinent psych hx Lives: Spouse/ Significant Other Smoking Status: Former smoker Tobacco Use: Non-smoker Alcohol: None Drugs: None - *Family History Maternal Family History: Family History (Last Reviewed 08/27/20 @ 00:[address] Naveed Rick MD) Grandfather Diabetes Brother Heart disease History Items: No pertinent history Paternal Family History: Family History (Last Reviewed 08/27/20 @ 00:[address] Naveed Rick MD) Grandfather Diabetes Brother Heart disease History Items: No pertinent history Offspring Family History: Family History (Last Reviewed 08/27/20 @ 00:[address] Naveed Rick MD) Grandfather Diabetes Brother Heart disease History Items: Hypertension, Seizures, - - Intellectual Delay. Review of Systems Constitutional: Denies: Chills, Fever Cardiovascular: Reports: Edema Respiratory: Denies: Cough, Shortness of Breath Musculoskeletal: Reports: Joint swelling - left hip, Joint Tenderness - left hip, - - partial right arm amputation Skin: Reports: - - edema left worse than right, elongated thick calluses and calluses bilateral feet Neurological: Denies: Numbness, Tingling Hematologic/ Lymphatic: Reports: Easy Bleeding, Hx of blood clot Patient Problems: Active and Suspected Problems (Last Reviewed 08/27/20 @ 01:[address] Naveed Rick MD) Hypoxia (Acute) Bradycardia (Acute) Postoperative anemia (Acute) - Physical Exam Vitals/I&O's: Vital Signs Temp Pulse Resp BP Pulse Ox 97.3 F L 67 14 150/66 H 96 09/22/20 14:24 09/22/20 14:24 09/22/20 14:24 09/22/20 14:24 09/22/20 14:24 Oxygen Delivery Method Room Air Weight: 56.841 kg Body Mass Index (BMI) 29.2 Intake and Output for Last 24 Hours 09/20/20 09/21/20 09/22/20 23:59 23:59 23:59 Intake Total 1560 / 1560 1440 / 1440 1080 / 1080 Balance 1560 / 1560 1440 / 1440 1080 / 1080 General: Alert, Oriented x3 HEENT: Atraumatic Extremities: No clubbing, No cyanosis, Capillary Refill Less than 3 Seconds, No Calf Tenderness, Diminished Peripheral Pulses - 1/4 DP and PT bilateral, Edema - left worse than right, left is operative side, +2 pitting, Tenderness - to calluses, - - thickened, elongated, dystrophic, discolored, crumbly nails [id number] bilateral, calluses to bilateral medial hallux and right plantar 5th metatarsal base Skin: No rashes, No breakdown Musculoskeletal: Tenderness - to calluses bilateral feet Neurological: Sensory exam intact to light touch and pain Psych/Mental Status: Normal Affect, Appropriate, Alert and oriented to time, place, person, mood and affect Microbiology Past 72 Hours 09/22/20 11:30 Nasal Secretion SARS-CoV-2 Antigen (Rapid) - Final Current Medications Acetaminophen (Acetaminophen 500 Mg Tablet) 1,000 mg PO Q8 [facility] Last Admin: 09/22/20 20:48 Dose: 1,000 mg Documented by: Amiodarone HCl (Amiodarone 200 Mg Tablet) 200 mg PO DAILY [facility] Last Admin: 09/22/20 05:44 Dose: 200 mg Documented by: Atorvastatin Calcium (Atorvastatin Calcium 20 Mg Tablet) 20 mg PO QHS [facility] Last Admin: 09/22/20 20:49 Dose: 20 mg Documented by: Bisacodyl (Bisacodyl 10 Mg Suppository) 10 mg RECTAL DAILY PRN PRN Reason: Constipation Calamine/Phenol (Menthol/Lanolin/Calamine/Znox 113 Gm Tube) 1 applic TOPICAL 0600,2200 [facility]; Protocol Last Admin: 09/22/20 20:48 Dose: 1 applicatio Documented by: Calcium Carbonate (Calcium Carbonate 500 Mg Tablet) 500 mg PO Q6H PRN PRN PRN Reason: HEARTBURN Last Admin: 09/10/20 20:24 Dose: 500 mg Documented by: Carvedilol ([facility] 25 Mg Tablet) [facility] Last Admin: 09/22/20 17:49 Dose: 25 mg Documented by: Cholecalciferol (Cholecalciferol (Vit D3) 1,000 Unit (25mcg)) 2,000 unit PO DAILY [facility] Last Admin: 09/22/20 05:44 Dose: 2,000 unit Documented by: Folic Acid (Folic Acid 1 Mg Tablet) [facility] Last Admin: 09/22/20 08:29 Dose: 1 mg Documented by: Furosemide (Furosemide 40 Mg Tablet) 40 mg PO DAILY [facility] Last Admin: 09/22/20 05:44 Dose: 40 mg Documented by: Levothyroxine Sodium (Levothyroxine 150 Mcg Tablet) 150 mcg PO DAILY [facility] Last Admin: 09/22/20 05:44 Dose: 150 mcg Documented by: Magnesium Hydroxide (Magnesium Hydroxide 30 Ml Udc) 30 ml PO DAILY PRN PRN Reason: Constipation Nitroglycerin (Nitroglycerin (Inpatient Use) 0.4 Mg Tab.Subl) 0.4 mg SUBLINGUAL Q5M PRN PRN Reason: Chest Pain Score 1-10 Ondansetron HCl (Ondansetron Odt 4 Mg Tablet) 4 mg PO Q8H PRN PRN PRN Reason: NAUSEA/VOMITING Last Admin: 09/02/20 14:44 Dose: 4 mg Documented by: Oxycodone HCl (Oxycodone 5 Mg Tablet) 5 mg PO Q4H PRN PRN PRN Reason: Pain Score 4-10 Last Admin: 08/30/20 21:45 Dose: 5 mg Documented by: Polyethylene Glycol (Polyethylene Glycol 3350 17 Gm Packet) 17 gm PO DAILY [facility] Last Admin: 09/22/20 05:46 Dose: Not Given Documented by: Polysaccharide Iron Complex (Iron Polysaccharide Complex 150 Mg Capsule) [facility] Last Admin: 09/22/20 08:29 Dose: 150 mg Documented by: Ramipril (Ramipril 10 Mg Capsule) 10 mg PO DAILY [facility] Last Admin: 09/22/20 05:44 Dose: 10 mg Documented by: Senna/Docusate Sodium (Senna/Docusate Sodium 1 Tablet) 2 tablet PO BID [facility] Last Admin: 09/22/20 17:48 Dose: Not Given Documented by: Sodium Chloride (0.9% Saline Lock 10 Ml Syringe) 10 - 40 ml IV UD PRN PRN Reason: SALINE FLUSH Warfarin Sodium (Jantoven 2 Mg Tablet) 2 mg PO DAILY@1700 [facility] Last Admin: 09/22/20 17:49 Dose: 2 mg Documented by: Assessment/Plan All Active Problems (Last Reviewed 08/27/20 @ 01:[address] Naveed Rick MD) Failed total hip arthroplasty (Acute) Hypoxia (Acute) Bradycardia (Acute) Postoperative anemia (Acute) Thoracic aortic aneurysm, ruptured (Resolved) Tinea unginum peripheral vascular disease calluses lower extremity edema hardware removal left hip Initial evaluation performed. Reviewed condition and treatment options. We will proceed with palliative care, as well as monitoring. Foot care and footgear has been discussed. Debrided/removed bulk from bilateral 1,2,3,4,5 toenails, both manually with a nail nipper which was angled to 45 degrees to debride bulk. This was done without incident. Callus foot care: Discussed condition and treatment options with the patient in detail. Debrided and removed callus from bilateral medial hallux and right plantar 5th metatarsal base using a 10 blade. This was done without incident. Offloading, padding, and footwear has been reviewed. Follow up as normal with his normal [facility], Dr Dumont for continued care in 2-3 months, sooner if needed. This is medically necessary due to class findings, and performance of this service by a nonprofessional person would put the patient at risk. Discussed patient's edema. Discussed the worsening of the left side is likely related to his resent surgery to his left hip Thank you for the consult Please contact if any questions
[2020-09-23] VITALS (7 sets, daily range): BP systolic 136–177; BP diastolic 50–72; PULSE 58–71; RESP 16–18; TEMP 36.3–37; O2SAT 95–97
[2020-09-23] MEDS: Furosemide 40 MG Tablet PO (06:11)
[2020-09-23] MEDS: Acetaminophen 500 MG Tablet 1000 MG PO ×3 (06:11→21:56)
[2020-09-23] MEDS: Amiodarone 200 MG Tablet PO (06:11)
[2020-09-23] MEDS: Ramipril 10 MG Capsule PO (06:11)
[2020-09-23] MEDS: Senna/Docusate Sodium 1 Tablet 2 TABLET PO (06:11)
[2020-09-23] MEDS: Levothyroxine 150 MCG Tablet PO (06:11)
[2020-09-23] MEDS: Menthol/Lanolin/Calamine/Znox 113 GM Tube 1 APPLIC TOPICAL ×2 (06:13→21:55)
[2020-09-23] MEDS: Carvedilol 25 MG Tablet PO ×2 (08:36→18:14)
[2020-09-23] MEDS: Folic Acid 1 MG Tablet PO (08:37)
[2020-09-23] MEDS: Iron Polysaccharide Complex 150 MG CAPSULE PO (08:37)
[2020-09-23] MEDS: hydrALAZINE 10 MG Tablet PO ×2 (15:10→21:55)
[2020-09-23] MEDS: Jantoven 2 MG Tablet PO (18:14)
[2020-09-23] MEDS: MethylPREDNISolone DosePak 4 MG BOX PO (21:49)
[2020-09-23] MEDS: Atorvastatin Calcium 20 MG Tablet PO (21:55)
[2020-09-24 04:00] VITALS: BP 178/73; PULSE 68; RESP 18; TEMP 36.7; O2SAT 95
[2020-09-24 05:27] VITALS: BP 178/73; PULSE 68
[2020-09-24] MEDS: Acetaminophen 500 MG Tablet 1000 MG PO ×3 (05:27→21:36)
[2020-09-24] MEDS: Ramipril 10 MG Capsule PO (05:27)
[2020-09-24] MEDS: Levothyroxine 150 MCG Tablet PO (05:27)
[2020-09-24] MEDS: Senna/Docusate Sodium 1 Tablet 2 TABLET PO (05:27)
[2020-09-24] MEDS: Amiodarone 200 MG Tablet PO (05:27)
[2020-09-24] MEDS: Furosemide 40 MG Tablet PO (05:27)
[2020-09-24] MEDS: hydrALAZINE 10 MG Tablet PO ×3 (05:27→21:35)
[2020-09-24] MEDS: Menthol/Lanolin/Calamine/Znox 113 GM Tube 1 APPLIC TOPICAL (05:32)
[2020-09-24 05:37] LABS: International Normalized Ratio 2.1; Prothrombin Time (Protime)PT. 22.9 SECONDS (11.7-14.9)
[2020-09-24] MEDS: MethylPREDNISolone DosePak 4 MG BOX PO ×4 (08:12→21:37)
[2020-09-24] MEDS: Folic Acid 1 MG Tablet PO (08:13)
[2020-09-24] MEDS: Iron Polysaccharide Complex 150 MG CAPSULE PO (08:13)
[2020-09-24] MEDS: Carvedilol 25 MG Tablet PO ×2 (08:13→17:31)
[2020-09-24 10:00] VITALS: PULSE 68; RESP 16; O2SAT 98
[2020-09-24 13:47] VITALS: PULSE 66
[2020-09-24 14:17] VITALS: BP 139/50; PULSE 66; RESP 16; TEMP 36.6; O2SAT 96
--- NOTE | 2020-09-24 14:44 | MDS.RN ---
completed pain interview for 09/25/20
[2020-09-24] MEDS: Jantoven 2 MG Tablet PO (17:30)
[2020-09-24 21:35] VITALS: PULSE 64
[2020-09-24] MEDS: Atorvastatin Calcium 20 MG Tablet PO (21:36)
[2020-09-25 04:00] VITALS: BP 126/51; PULSE 69; RESP 20; TEMP 36.3; O2SAT 95
[2020-09-25] MEDS: Acetaminophen 500 MG Tablet 1000 MG PO (06:03)
[2020-09-25] MEDS: Furosemide 40 MG Tablet PO (06:03)
[2020-09-25] MEDS: Amiodarone 200 MG Tablet PO (06:03)
[2020-09-25] MEDS: Ramipril 10 MG Capsule PO (06:03)
[2020-09-25] MEDS: Menthol/Lanolin/Calamine/Znox 113 GM Tube 1 APPLIC TOPICAL (06:03)
[2020-09-25] MEDS: Levothyroxine 150 MCG Tablet PO (06:03)
[2020-09-25 06:04] VITALS: PULSE 67
[2020-09-25] MEDS: hydrALAZINE 10 MG Tablet PO (06:04)
[2020-09-25 07:41] VITALS: O2SAT 95
[2020-09-25] MEDS: MethylPREDNISolone DosePak 4 MG BOX PO (08:28)
[2020-09-25] MEDS: Folic Acid 1 MG Tablet PO (08:28)
[2020-09-25] MEDS: Iron Polysaccharide Complex 150 MG CAPSULE PO (08:28)
[2020-09-25] MEDS: Carvedilol 25 MG Tablet PO (08:28)
[2020-09-25 09:00] VITALS: BP 153/44; PULSE 68; RESP 16; TEMP 36.8; O2SAT 98
== END 2020-09-25 10:30 | disposition home health service (06) | DRG 560 ==
PROVIDERS: Admitting Provider Family Medicine Geriatric Medicine; PCP Family Medicine; Visit Provider Family Medicine Geriatric Medicine
DX: Z47.1 Aftercare following joint replacement surgery (principal); I50.32 Chronic diastolic (congestive) heart failure; I13.0 Hypertensive heart and chronic kidney disease with heart failure and stage 1 through stage 4 chronic kidney disease, or unspecified chronic kidney disease; I48.20 Chronic atrial fibrillation, unspecified; Z96.642 Presence of left artificial hip joint; J44.9 Chronic obstructive pulmonary disease, unspecified; N18.9 Chronic kidney disease, unspecified; E03.9 Hypothyroidism, unspecified; I25.10 Atherosclerotic heart disease of native coronary artery without angina pectoris; N40.1 Benign prostatic hyperplasia with lower urinary tract symptoms; R33.8 Other retention of urine; Z86.718 Personal history of other venous thrombosis and embolism; I73.9 Peripheral vascular disease, unspecified; G89.29 Other chronic pain; Z87.891 Personal history of nicotine dependence; Z89.111 Acquired absence of right hand; E55.9 Vitamin D deficiency, unspecified; D50.9 Iron deficiency anemia, unspecified; Z86.711 Personal history of pulmonary embolism; B35.1 Tinea unguium; L84 Corns and callosities; E78.2 Mixed hyperlipidemia
CPT/HCPCS: 36415; 74018; 80048; 85025; 85610; 87426; 87635; 93922; 93971; 97110; 97116; 97162; 97166; 97530; 97535; 97802; U0003

== ENCOUNTER → 2020-10-07 10:20 | Outpatient (CLI) | payer MEDICARE, OTHER, SELFPAY ==
[2020-08-28 15:17] VITALS: BMI 29.2
--- NOTE | 2020-10-07 10:24 | RAD_ITS ---
STUDY: X-RAY - LEFT SHOULDER REASON FOR EXAM: Male, 80 years old. left shoulder pain TECHNIQUE: view(s) of the shoulder. COMPARISON: Prior shoulder radiograph of 04/09/2018 FINDINGS: High riding humeral head with chronic erosive changes of the distal clavicle, acromioclavicular joint and acromion. Nonexistent subacromial space. Degenerative arthrosis of the acromioclavicular joint. Marginal osteophytosis of the humeral head and glenoid rim. Calcified fragments in the subdeltoid region. Normal visualized pulmonary apex. RAD/Shoulder min 2 Views IMPRESSION: Degenerative arthrosis of the glenohumeral joint and acromioclavicular joint. High riding humeral head with erosion of the AC joint and acromion with a nonexistent subacromial space and bone fragments in the subdeltoid region. Findings consistent with chronic rotator cuff tear and subsequent degeneration. Findings are similar if not slightly advanced from the prior exam. Electronically Signed: Kailyn Guzman MD at 9:00 EST , Service support ,
== END ==
PROVIDERS: PCP Family Medicine; Referring Provider Family Medicine; Visit Provider Family Medicine
DX: M25.519 Pain in unspecified shoulder (principal)
CPT/HCPCS: 73030

== ENCOUNTER 2020-10-20 18:09 | Emergency (ER) | payer MEDICARE, OTHER, SELFPAY ==
[2020-08-28 15:17] VITALS: BMI 29.2
[2020-10-20 18:15] VITALS: BP 160/60; PULSE 64; RESP 18; TEMP 36.3; O2SAT 96; BMI 25.4
--- NOTE | 2020-10-20 18:26 | ED.RN ---
[facility]
--- NOTE | 2020-10-20 19:47 | US_ITS ---
STUDY: VENOUS DOPPLER ULTRASOUND - LEFT LOWER EXTREMITY REASON FOR EXAM: Male, 80 years old. S/P LT LEG ANEURYSM REPAIR IN APRIL NOW WITH LT KNEE PAIN AND SWELLING TECHNIQUE: Ultrasound evaluation of the deep vein system to include chan-scale imaging and compression was performed. Chan-scale imaging and Doppler sonographic evaluation, including duplex spectral analysis and qualitative color flow sonography, was performed. COMPARISON: 09/22/2020 . FINDINGS: Common Femoral Vein: Normal compression, spontaneity and augmentation. Normal color Doppler. Common Femoral Vein/Greater Saphenous Junction: Normal compression. Femoral Proximal: Normal compression. Femoral Middle: Normal compression, spontaneity and augmentation. Normal color Doppler. Femoral Distal: Normal compression. Popliteal Vein: Normal compression, spontaneity and augmentation. Normal color Doppler. Posterior Tibial Vein: Normal compression. Peroneal Vein: Normal compression. Anechoic structure left popliteal fossa measures 4.7 x 3.5 x 2.5 cm. US/Venous Duplex Imag/Limited/Uni IMPRESSION: No evidence for DVT. 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 Electronically Signed: Erik Dee, at 20:59 EST Tel , Service support ,
--- NOTE | 2020-10-20 21:15 | ED.DCSUM_ITS ---
History of Present Illness Chief Complaint: Lower Extremity Injury Informant: Patient Narrative: Patient presents for evaluation of left leg swelling. Patient states that last year he underwent aneurysm repair of the left leg. He states that in August he had a left hip replacement. He has recently been discharged out of nursing facility. He has been having left leg swelling and now has pain behind the knee. His home health care called her doctors and was advised to come to emergency for rule out DVT. He has had DVT in the past. - Past Medical History (1) Bradycardia Status: Chronic (2) Tinea unguium Status: Chronic (3) Aortic stenosis Status: Chronic (4) DVT (deep venous thrombosis) Status: Chronic (5) Peripheral arterial occlusive disease Status: Chronic (6) Thoracic aortic aneurysm Status: Chronic (7) Abdominal aortic aneurysm Status: Chronic (8) BPH (benign prostatic hyperplasia) Status: Chronic (9) Coronary artery disease Status: Chronic (10) Hypertension Status: Chronic (11) Chronic diastolic heart failure Status: Chronic (12) Thoracic aortic aneurysm, ruptured Status: Resolved (13) Mixed hyperlipidemia Status: Chronic (14) History of aortic valve repair Status: Chronic (15) 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 (16) Essential hypertension Status: Chronic Past Medical History - Allergies and Home Meds Allergies/Adverse Reactions: Allergies No Known Allergies Allergy (Verified 10/20/20 18:10) Primary Care Physician: Ihsan Modi MD [Primary Care Provider] - 1 Week Surgical History: angioplasty - Stent, Left popliteal artery stent., appendectomy, cataract, total hip arthroplasty - Right cemented., - - Thoracic a ortic [id number] Status post aortic valve replacement, AAA endovascular graft, left hip intramedullary nail. Smoking Status: Never smoker Drugs: None - Family History Maternal Family History: Family History (Last Reviewed 08/27/20 @ 00:[address] Naveed Rick MD) Grandfather Diabetes Brother Heart disease Family History: Reports: No pertinent history Paternal Family History: Family History (Last Reviewed 08/27/20 @ 00:[address] Naveed Rick MD) Grandfather Diabetes Brother Heart disease Family History: Reports: No pertinent history Offspring Family History: Family History (Last Reviewed 08/27/20 @ 00:[address] Naveed Rick MD) Grandfather Diabetes Brother Heart disease Family History: Reports: Hypertension, Seizures, - - Intellectual Delay. Review of Systems General: Denies: Chills, Fever, Sweats Eyes: Denies: Visual changes - bilaterally, Diplopia ENT: Denies: Rhinorrhea, Sore throat Cardiovascular: Denies: Chest pain, Palpitations Respiratory: Denies: Dyspnea, Cough, Dyspnea on exertion Gastrointestinal: Denies: Abdominal pain, Nausea, Vomiting, Diarrhea, Melena, Hematochezia Genitourinary: Denies: Dysuria, Hematuria, Frequency Musculoskeletal: Reports: Swelling, Extremity Pain. Denies: Back pain Skin: Denies: Rash, Wounds Neurological: Denies: Headache, Weakness, Numbness Physical Exam Vital Signs/Narrative: Vital Signs Temp Pulse Resp BP Pulse Ox 10/20/20 18:15 97.4 F L 64 18 160/60 H 96 Inital Vital Signs reviewed: Yes General: Well nourished, Well developed, No Acute Distress Head: Normocephalic, Atraumatic Eyes: Perrl, EOMI ENT: Moist mucous membranes, No rhinorrhea Neck: Supple, Nontender Cardiovascular: Regular rate, Regular rhythm, No murmurs Respiratory: No distress, CTA bilaterally, Chest nontender Abdomen: Soft, Nontender, Nondistended, Normal bowel sounds Back: Nontender, Normal Inspection Extremities: Tenderness - In the popliteal fossa, Edema - Of the left leg Skin: Normal color, No rash Neurological: Alert, Oriented x3, Cranial nerves II-XII grossly intact, Normal Strength, Normal Sensation Psychological: Normal affect, Normal Mood Diagnostic/Tx/Re-eval Clinical Impression(s) from Imaging Studies Venous Duplex 10/20/20 19:47 IMPRESSION: No evidence for DVT. 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 Electronically Signed: Erik Dee, at 20:59 EST Tel , Service support , ED Disposition - Plan for ED Patient: Disposition: Home or Assisted Living Diagnosis: Lymphedema of left leg, Bakers cyst Instructions: ED Joyce's Cyst, ED Lymphedema Referrals: Ihsan Modi MD [Primary Care Provider] - 1 Week Additional Instructions: I would recommend taking your Lasix 40 mg twice a day for 5 days. Continue wraps of the leg Follow-up with your orthopedic surgeon for the Joyce's cyst of the knee and postoperative care of the hip
[2020-10-20 21:50] VITALS: RESP 16
== END 2020-10-20 21:51 | disposition home or self-care (01) ==
PROVIDERS: Emergency Provider Emergency Medicine; PCP Family Medicine
DX: I89.0 Lymphedema, not elsewhere classified (principal); M71.20 Synovial cyst of popliteal space [Baker], unspecified knee; I25.10 Atherosclerotic heart disease of native coronary artery without angina pectoris; Z95.2 Presence of prosthetic heart valve; Z86.718 Personal history of other venous thrombosis and embolism
CPT/HCPCS: 93971; 99282

== ENCOUNTER 2020-11-02 10:49 | Inpatient (IN) | payer MEDICARE, OTHER, SELFPAY ==
[2020-11-02] VITALS (27 sets, daily range): BP systolic 146–199; BP diastolic 36–69; PULSE 57–74; RESP 12–24; TEMP 36.2–36.8; O2SAT 78–98; BMI 25.4; BMI 24.7; BMI 59.3
--- NOTE | 2020-11-02 11:03 | EKG12_ITS ---
Test Reason : Blood Pressure : / mmHG Vent. Rate : 068 BPM Atrial Rate : 068 BPM P-R Int : 200 ms QRS Dur : 114 ms QT Int : 448 ms P-R-T Axes : 049 -37 115 degrees QTc Int : 476 ms Normal sinus rhythm Left axis deviation Left ventricular hypertrophy with repolarization abnormality Abnormal ECG Confirmed by KYRIE BRANNON, CORBIN ([id number]), manuscript editor JOHN SHAH ([id number]) on 11/04/2020 7:51:55 AM Referred By: DEANDRA Confirmed By:CORBIN MITTAL MD
--- NOTE | 2020-11-02 11:05 | ED.DCSUM_ITS ---
History of Present Illness Chief Complaint: Shortness of Breath Informant: Patient Narrative: 80-year-old male with extensive past medical history including aortic dissection with repair, coronary artery disease, peripheral vascular disease, COPD, hypertension presents with concern for shortness of breath. Patient had a right total hip done here approximately 2 weeks ago. States that 5 days ago he began having shortness of breath. States he has had a slight cough. Denies any fever, chills, chest pain. Patient was found to be 60% on room air upon arrival. Past Medical History - Allergies and Home Meds Allergies/Adverse Reactions: Allergies No Known Allergies Allergy (Verified 10/20/20 18:10) Prior records reviewed: Yes Past Medical History: - - HTN, CAD, Aortic dissection, PAD Surgical History: angioplasty - Stent, Left popliteal artery stent., appendectomy, cataract, total hip arthroplasty - Right cemented., - - Thoracic aortic [id number] Status post aortic valve replacement, AAA endovascular graft, left hip intramedullary nail. Lives: Spouse/ Significant Other Smoking Status: Former smoker Alcohol: None Drugs: None - Family History Maternal Family History: Family History (Last Reviewed 08/27/20 @ 00:[address] Naveed Rick MD) Grandfather Diabetes Brother Heart disease Family History: Reports: No pertinent history Paternal Family History: Family History (Last Reviewed 08/27/20 @ 00:[address] Naveed Rick MD) Grandfather Diabetes Brother Heart disease Family History: Reports: No pertinent history Offspring Family History: Family History (Last Reviewed 08/27/20 @ 00:[address] Naveed Rick MD) Grandfather Diabetes Brother Heart disease Family History: Reports: Hypertension, Seizures, - - Intellectual Delay. Review of Systems General: Denies: Chills, Fever, Sweats Eyes: Denies: Visual changes - bilaterally, Diplopia ENT: Denies: Rhinorrhea, Sore throat Cardiovascular: Denies: Chest pain, Palpitations Respiratory: Reports: Dyspnea. Denies: Cough, Dyspnea on exertion Gastrointestinal: Denies: Abdominal pain, Nausea, Vomiting, Diarrhea, Melena, Hematochezia Genitourinary: Denies: Dysuria, Hematuria, Frequency Musculoskeletal: Denies: Back pain, Extremity Pain Skin: Denies: Rash, Wounds Neurological: Denies: Headache, Weakness, Numbness Physical Exam Vital Signs/Narrative: Vital Signs Temp Pulse Resp BP Pulse Ox 11/02/20 11:00 88 11/02/20 10:56 98.3 F 74 24 H 174/60 H 78 Inital Vital Signs reviewed: Yes General: Well nourished, Well developed, No Acute Distress Head: Normocephalic, Atraumatic Eyes: Perrl, EOMI ENT: Moist mucous membranes, No rhinorrhea Neck: Supple, Nontender Cardiovascular: Regular rate, Regular rhythm, No murmurs Respiratory: Chest nontender, - - Moderate respiratory distress. Coarse breathe sounds. Abdomen: Soft, Nontender, Nondistended, Normal bowel sounds Back: Nontender, Normal Inspection Extremities: Nontender, No edema, - - RUE partal amputation Skin: Normal color, No rash Neurological: Alert, Oriented x3, Cranial nerves II-XII grossly intact, Normal Strength, Normal Sensation Psychological: Normal affect, Normal Mood Diagnostic/Tx/Re-eval Chest X-Ray - ED: 1 View, Read by ED Physician, Read by Radiologist, - - Diffuse bilateral infiltrates. Clinical Impression(s) from Imaging Studies Chest X-Ray 11/02/20 11:35 IMPRESSION: Diffuse bilateral airspace disease worse in the right hemithorax. This may represent either diffuse bilateral pulmonary infiltrates or edema. Electronically Signed: Milan Cao MD at 12:11 EST , Service support , Chest CTA 11/02/20 12:20 IMPRESSION: No evidence of pulmonary embolism. Diffuse bilateral groundglass appearance with areas of confluence was in the right hemithorax superimposed on chronic interstitial scarring and honeycombing. Stable dilatation of the distal portion of the thoracic aorta as it enters the diaphragmatic hiatus with evidence of a prior dissection. Electronically Signed: Milan Cao MD at 12:44 EST , Service support , Laboratory Data 11/02/20 11/02/20 11/02/20 11:00 11:00 11:00 WBC 6.7 RBC 3.68 L Hgb 10.1 L Hct 33.6 L MCV 91.3 MCH 27.4 MCHC 30.1 L RDW Std Deviation 50.6 H RDW Coeff of Ej 15.1 H Plt Count 150 MPV 10.7 Immature Gran % (Auto) 0.300 Neut % (Auto) 86.4 H Lymph % (Auto) 9.6 L [place] % (Auto) 3.5 Eos % (Auto) 0.0 Baso % (Auto) 0.2 Absolute Neuts (auto) 5.8 Absolute Lymphs (auto) 0.64 L Nucleated RBC % 0 D-Dimer Quant (PE/DVT) 1.68 H* Specimen Type Sample Site pH Bicarbonate Actual Total CO2 Base Excess O2 Saturation O2 % ABG pCO2 ABG pO2 Ramon Test O2 Delivery Device Sodium 146 H Potassium 4.0 Chloride 108 H Carbon Dioxide 31.0 Anion Gap 7 BUN 39 H Creatinine 1.68 H Estim Creat Clear Calc 26.37 Est GFR (MDRD) Af Amer 51 L Est GFR (MDRD) Non-Af 42 L BUN/Creatinine Ratio 23.2 H Glucose 133 H Calcium 8.4 L Troponin I 0.075 H B-Natriuretic Peptide 11/02/20 11/02/20 11:00 11:46 WBC RBC Hgb Hct MCV MCH MCHC RDW Std Deviation RDW Coeff of Ej Plt Count MPV Immature Gran % (Auto) Neut % (Auto) Lymph % (Auto) [place] % (Auto) Eos % (Auto) Baso % (Auto) Absolute Neuts (auto) Absolute Lymphs (auto) Nucleated RBC % D-Dimer Quant (PE/DVT) Specimen Type ART Sample Site L Radial pH 7.59 H Bicarbonate Actual 28.1 H Total CO2 29 Base Excess 7 H O2 Saturation 99 O2 % 60 ABG pCO2 29.1 L ABG pO2 99 Ramon Test Positive O2 Delivery Device BiPAP Sodium Potassium Chloride Carbon Dioxide Anion Gap BUN Creatinine Estim Creat Clear Calc Est GFR (MDRD) Af Amer Est GFR (MDRD) Non-Af BUN/Creatinine Ratio Glucose Calcium Troponin I B-Natriuretic Peptide 809.9 H - Rhythm Strip Rhythm Strip: Sinus Rhythm Rate: 68 Ectopy: None - EKG Initial EKG Interpretation: Sinus Rhythm - Normal sinus rhythm at 68 bpm. Left axis deviation. Nonspecific ST changes. OK and QTC within normal limits. - Medical Decision Making Initially significantly hypoxemic. Mild respiratory distress. Lungs coarse. X-ray interpreted by myself shows bilateral diffuse opacities concerning for coronavirus. Radiology concurs. Elevated D-dimer. CTA shows no evidence of pulmonary embolism. Patient was given Decadron. Initially escalated to BiPAP given his persistent hypoxemia and respiratory status. Patient also has slightly elevated BNP and troponin. Likely secondary to demand. Patient will be given full dose aspirin. Discussed with the patient his visit as far as intubation. Patient is agreeable with being placed on a ventilator if he has respiratory failure. Patient will be admitted to the intensive care unit for further treatment and evaluation. Impression: 1. Acute hypoxemic respiratory failure 2. COVID 19 pneumonia 3. Elevated troponin 4. 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
[2020-11-02 11:23] LABS: Absolute Lymphocyte Count 0.64 X10^3/uL (0.83-4.51); Absolute Neutrophil Count 5.8 X10^3/uL (2.0-7.7); Basophil# 0.01 X10^3/uL; Basophil% 0.2 % (0-1); Hematocrit 33.6 % (40-54); Hemoglobin 10.1 g/dL (13.0-16.5); Lymphocyte # 0.64 X10^3/ul (4.0); Lymphocyte % 9.6 % (19-41); Mean Corp Hgb Conc 30.1 g/dL (32-36); Mean Corpuscular Hgb 27.4 pg (27.0-32.0); Mean Corpuscular Volume 91.3 fL (80-94); Mean Platelet Vol. 10.7 fl (6.2-12.0); Monocyte# 0.23 X10^3/uL; Monocyte% 3.5 % (0-10); NRBC Flagged by Analyzer 0 % (0-5); Neutrophil # 5.75 X10^3/uL (2.7-7.7); Neutrophil % 86.4 % (47-70); Platelet Count 150 K/mm3 (150-450); RBC Distribution Width CV 15.1 % (11.6-14.6); RBC Distribution Width SD 50.6 fl (35.1-43.9); Red Blood Count 3.68 M/mm3 (4.6-6.2); White Blood Count 6.7 K/mm3 (4.4-11.0)
--- NOTE | 2020-11-02 11:35 | RAD_ITS ---
STUDY: X-RAY CHEST REASON FOR EXAM: Male, 80 years old. DYSPNEA, HX OF HTN AND PNEUMONIA IN 2019 TECHNIQUE: Single AP portable view of the chest. COMPARISON: Comparison is made with prior examination dated 08/27/2020. FINDINGS: Right axillary surgical clips are seen. EKG electrodes are seen. There is evidence of diffuse bilateral airspace disease worse in the right lung. This may represent either diffuse bladder pneumonia or pulmonary edema. Blunting of both costophrenic angles. Sternal cerclage wires and vascular clips are present from a prior sternotomy and coronary artery bypass graft procedure (CABG). Normal mediastinum and jamal. Normal visualized pulmonary arteries. Normal visualized aortic arch and descending thoracic aorta. There are degenerative changes of the visualized thoracic spine. There is degenerative osteoarthritis of the bilateral shoulders. Hiatal hernia. RAD/Chest 1 View (Portable) IMPRESSION: Diffuse bilateral airspace disease worse in the right hemithorax. This may represent either diffuse bilateral pulmonary infiltrates or edema. Electronically Signed: Milan Cao MD at 12:11 EST , Service support ,
[2020-11-02 11:36] LABS: D-Dimer Quantitative (DVT/PE) 1.68 FEU/ug/m (0.27-0.49)
[2020-11-02 11:40] LABS: BNP,B-Type NATRIURETIC PEPTIDE 809.9 pg/mL (0-100)
[2020-11-02 11:41] LABS: BUN 39 mg/dL (7-18); Creatinine, Serum 1.68 mg/dL (0.70-1.30); Estimated Creatinine Clearance 26.37 ml/min; Glucose 133 mg/dL (74-106)
[2020-11-02 11:42] LABS: Anion Gap 7 (5-15); BUN/Creat Ratio 23.2 RATIO (10-20); Calcium,Total 8.4 mg/dL (8.5-10.1); Chloride 108 mmol/L (98-107); EST Glomerular Filtration Rate 42 mL/min (>60); Est Glom Filt Rate - Afr Amer 51 mL/min (>60); Sodium Level 146 mmol/L (136-145)
[2020-11-02 11:55] LABS: Allen Test Positive; Base Excess 7 mmol/L (-2 to +2); Bicarbonate 28.1 mmol/L (22-26); Blood Gas Specimen Type ART; FI02 60; O2 Delivery Device BiPAP; PO2 99 mmHG (75-100); SITE L Radial; SO2 99 % (95-99); Total Carbon Dioxide 29 mmol/L; pCO2 29.1 mmHg (35-45); pH 7.59 (7.35-7.45)
--- NOTE | 2020-11-02 12:01 | CPS ---
Critical value verified times two. Reported results to . Verified by readback.
--- NOTE | 2020-11-02 12:06 | NURSING ---
Dr. Sanford informed of + covid results
--- NOTE | 2020-11-02 12:20 | CT_ITS ---
STUDY: CTA CHEST REASON FOR EXAM: Male, 80 years old. INCREASE SOB RADIATION DOSAGE (If Supplied By Facility): CTDIvol = ( 14.81 ) mGy, DLP = ( 482.99 ) mGycm TECHNIQUE: The examination was performed with the intravenous administration of IV 100mL [id number]-[id number]. Post-processing of the angiographic images was performed, with multiplanar reformation and 3D reconstruction. Individualized dose optimization techniques were used for this CT. COMPARISON: None. FINDINGS: Normal enhancement of the main pulmonary artery and right and left pulmonary arteries. Normal enhancement of the bilateral peripheral pulmonary arteries. There is no demonstrated pulmonary embolism. There is atherosclerotic calcification of the aortic arch with tortuosity. There is cardiomegaly. There are calcifications of the coronary arteries. Normal mediastinum. Normal hilar regions. Normal visualized trachea and bronchi. The lungs are well expanded. There now is evidence of diffuse bilateral groundglass appearance involving both upper and lower lobes more prominent in the right hemithorax superimposed on chronic interstitial fibrosis and honeycombing. This has markedly progressed as compared to prior study. Small bilateral pleural effusions. Normal chest wall structures. There are degenerative changes of thoracic spine. Midline anterior ventral hernia containing fat. The neck of the hernia measures 2.8 cm. Proximal abdominal aortic aneurysm with mural thrombus and prior stenting of the left renal artery. There is evidence of a dissection of the distal thoracic aorta. Moderate sized hiatal hernia. CT/CTA Chest W/WO Contrast IMPRESSION: No evidence of pulmonary embolism. Diffuse bilateral groundglass appearance with areas of confluence was in the right hemithorax superimposed on chronic interstitial scarring and honeycombing. Stable dilatation of the distal portion of the thoracic aorta as it enters the diaphragmatic hiatus with evidence of a prior dissection. Electronically Signed: Milan Cao MD at 12:44 EST , Service support ,
[2020-11-02] MEDS: Aspirin 81 MG TAB.CHEW 324 MG PO (12:35)
[2020-11-02] MEDS: dexAMETHasone 4 MG/ML Vial 6 MG IV (12:35)
--- NOTE | 2020-11-02 12:54 | PCM.HP.STD ---
Problem List (1) Abnormal cardiac enzyme level Status: Acute (2) Acute hypoxic respiratory failure Status: Acute (3) Acute bilateral COVID-19 pneumonia Status: Acute (4) DVT (deep venous thrombosis) Status: Chronic (5) Chronic kidney disease Status: Chronic (6) BPH (benign prostatic hyperplasia) Status: Chronic (7) Hyperlipidemia Status: Chronic Qualifiers: (8) Coronary artery disease Status: Chronic (9) Hypertension Status: Chronic Qualifiers: (10) Chronic diastolic heart failure Status: Chronic (11) COPD (chronic obstructive pulmonary disease) Status: Chronic (12) Pulmonary embolism Status: Chronic (13) Hypothyroidism Status: Chronic (14) Atrial fibrillation Status: Chronic Qualifiers: History of Present Illness Date of Admission: 11/02/20 Chief Complaint: Shortness of breath. The patient is a 80 year old M with multiple medical comorbidities as mentioned above presented to the emergency room because of shortness of breath and cough. His symptoms started 3-4 days ago with shortness of breath, both exertional and at rest, associated with mild cough with minimal sputum, aggravated by activity and no significant relief with rest. He denied associated fever, chills. He denied chest pain or palpitation. Patient was discharged from TCU on September 25, 2020 after he underwent conversion of cephalomedullary nail to left total hip replacement that was done for left hip fracture and then failed left intertrochanteric hip nail. In the emergency department, patient was afebrile, blood pressure was elevated, heart rate stable, was tachypneic and pulse ox was 78% on nonrebreather mask. Reportedly, pulse ox was 60% on room air upon arrival. Routine blood work was remarkable for hemoglobin of 10.1 g/dL which is chronic, BUN is 39, creatinine is 1.68. EKG revealed normal sinus rhythm, LVH, no acute ischemic changes. Troponin was 0.075. BNP was 809. D-dimer was 1.68. Chest x-ray revealed extensive bilateral diffuse infiltrate more prominent on the right lung. CTA chest showed no PE or dissection, revealed diffuse bilateral groundglass opacities more prominent on the right hemithorax. He is being admitted for acute bilateral COVID-19 pneumonia complicated by acute hypoxic respiratory failure and also found to have abnormal cardiac enzymes. Past Medical History Past Medical History (Chronic Problems): Chronic Problems (Last Reviewed 08/27/20 @ 01:[address] Naveed Rick MD) Failed total hip arthroplasty (Chronic) Chronic left hip pain (Chronic) Other specified peripheral vascular diseases (Chronic) Tinea unguium (Chronic) Thoracoabdominal aneurysm (Chronic) Placement of a [place] VBX 6 x 29 balloon expandable covered stent into the left renal artery aneurysm and dissection, placement of an 8 x 150 Viabahn to left popliteal aneurysm and left popliteal artery postdilated tension with a 8 x 100 asset recovery specialist balloon on 04/16/[address] [facility] [address] Brody Scott; Closed left hip fracture (Chronic) Aortic stenosis (Chronic) DVT (deep venous thrombosis) (Chronic) Anemia (Chronic) Chronic kidney disease (Chronic) Peripheral arterial occlusive disease (Chronic) Thoracic aortic aneurysm (Chronic) Abdominal aortic aneurysm (Chronic) BPH (benign prostatic hyperplasia) (Chronic) Urinary retention (Chronic) Closed right hip fracture (Chronic) Hyperlipidemia (Chronic) Coronary artery disease (Chronic) Hypertension (Chronic) Chronic diastolic heart failure (Chronic) Thoracic aortic aneurysm, ruptured (Chronic) Mixed hyperlipidemia (Chronic) Chronic heart failure with preserved ejection fraction (Chronic) History of aortic valve repair (Chronic ~10/28/07) Hx of repair of ascending aorta (Chronic ~10/28/07) 32mm Hem[place]ield graft 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) Onset Date: ~10/28/07 I71.01 Essential hypertension (Chronic) I10 Atherosclerotic heart disease of [place] coronary artery without angina pectoris (Chronic) I25.10 Tobacco dependence in remission (Chronic) F17.201 Pulmonary embolism (Chronic) I26.99 Hypothyroidism (Chronic) E03.9 Atrial fibrillation (Chronic) 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) I71.3 Squamous cell carcinoma of skin (Inactive) C44.92 Allergies No Known Allergies Allergy (Verified 10/20/20 18:10) Home Medications: Ambulatory Orders Medication Instructions Recorded nitroglycerin 0.4 mg sublingual 0.4 mg SUBLINGUAL Q5-15M PRN 04/23/18 tablet levothyroxine 100 mcg tablet 150 mcg PO DAILY tab 12/04/19 Furosemide 40 mg PO DAILY 04/07/20 Rosuvastatin Calcium [Crestor] 10 mg PO QHS 05/02/20 carvedilol 25 mg tablet 25 mg PO BID 08/21/20 cholecalciferol (vitamin D3) 50 50 mcg PO DAILY 08/21/20 mcg (2,000 unit) capsule clopidogrel 75 mg tablet 75 mg PO DAILY 08/21/20 folic acid 1 mg tablet 1 mg PO DAILY 08/21/20 Acetaminophen [Tylenol] 1,000 mg PO Q8 08/28/20 Calcium Carbonate [Tums] 500 mg PO Q6H PRN PRN tab 08/28/20 Ramipril [Altace] 10 mg PO DAILY 08/28/20 Iron Polysaccharide Complex 150 mg PO DAILYCM #30 cap 09/15/20 [Ferrex 150] Menthol/Lanolin/Calamine/Znox 1 applic TOPICAL 0600,2200 tube 09/15/20 [Calmoseptine Ointment] Warfarin [Coumadin] 3 mg PO DAILY@1700 #30 tab 09/15/20 amiodarone 200 mg tablet 200 mg PO DAILY #90 tab 10/12/20 Surgical History: Surgical History (Last Reviewed 08/27/20 @ 01:[address] Naveed Rick MD) Thoracoabdominal aneurysm (Chronic) I71.6 Placement of a [place] VBX 6 x 29 balloon expandable covered stent into the left renal artery aneurysm and dissection, placement of an 8 x 150 Viabahn to left popliteal aneurysm and left popliteal artery postdilated tension with a 8 x 100 asset recovery specialist balloon on 04/16/2020 at [facility] with Dr. 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 Psychiatric History: No pertinent psych hx Lives: Spouse/ Significant Other Smoking Status: Former smoker Alcohol: None Drugs: None - *Family History Maternal Family History: Family History (Last Reviewed 08/27/20 @ 00:[address] Naveed Rick MD) Grandfather Diabetes Brother Heart disease Paternal Family History: Family History (Last Reviewed 08/27/20 @ 00:[address] Naveed Rick MD) Grandfather Diabetes Brother Heart disease Offspring Family History: Family History (Last Reviewed 08/27/20 @ 00:[address] Naveed Rick MD) Grandfather Diabetes Brother Heart disease History Items: Hypertension, Seizures, - - Intellectual Delay. Review of Systems Constitutional: Reports: Weakness. Denies: Anorexia, Chills, Fever Eyes: Denies: Blurred vision, Double vision, Drainage, Redness HEENT: Denies: Difficulty Hearing, Ear Pain, Eye Pain, Nasal Congestion, Sore Throat Cardiovascular: Denies: Chest Pain, Chest Pressure, Heaviness, Light Headedness, Palpitations, Syncope Respiratory: Reports: Cough, Shortness of Breath, Shortness of breath at rest. Denies: Sputum production, Wheezing Gastrointestinal: Denies: Abdominal Pain, Constipation, Diarrhea, Nausea, Vomiting Genitourinary: Denies: Dysuria, Frequency, Hematuria Musculoskeletal: Denies: Arm Pain, Back Pain, Foot Pain Skin: Denies: Dryness, Rash Neurological: Denies: Balance problems, Double vision, Change in Speech, Slurred speech, Confusion, Headaches, Incoordination Psychiatric: Denies: Anxiety, Depression Endocrine: Denies: Change in Body Habitus, Polydipsia, Polyuria VTE Information - Inpt Only VTE Present on Admission: No VTE Mechan Device Prophylaxis: None VTE Pharm Prophylaxis ordered?: No - Physical Exam Vitals/I&O's: Vital Signs Temp Pulse Resp BP Pulse Ox 98.2 F 66 19 H 162/46 H 95 11/02/20 12:43 11/02/20 12:43 11/02/20 12:43 11/02/20 12:43 11/02/20 12:43 Oxygen Delivery Method Bi-pap Weight: 134 lb 11.239 oz Body Mass Index (BMI) 25.4 General: Alert, Oriented x3, Cooperative, - - Moderately short of breath, on BiPAP. HEENT: Atraumatic, PERRLA, EOMI, Normocephalic Oral: Moist Mucosa, No Gingival or Mucosal Lesions/ Ulcerations Neck: Supple, No JVD, Negative Carotid Bruits, Trachea Midline, Thyroid Normal Size and Texture Lungs: No wheeze, No rales, Diminished, Rhonchi, Short of Breath, Tachypneic, - - Decreased breath sounds bilateral, scattered rhonchi. Cardiovascular: Regular rate, Regular Rhythm, Normal S1, Normal S2, PMI Normal Abdomen: Bowel Sounds Present, Soft, Non Tender, Non-Distended, No Hepato-splenomegaly Extremities: No clubbing, No cyanosis, No edema Skin: No rashes, No breakdown Lymphatic: No Cervical, Supraclavicular, or Inguinal Adenopathy Neurological: Cranial nerves II-XII grossly intact, Motor Exam 5/5 strength throughout Psych/Mental Status: Normal Affect, Appropriate Microbiology Past 72 Hours 11/02/20 11:27 Mucosa - Nose SARS-CoV-2 Antigen (Rapid) - Final SARS-CoV-2 (COVID 19) Laboratory Results 11/02/20 11:00: WBC 6.7, RBC 3.68 L, Hgb 10.1 L, Hct 33.6 L, MCV 91.3, MCH 27.4, MCHC 30.1 L, RDW Std Deviation 50.6 H, RDW Coeff of Ej 15.1 H, Plt Count 150, MPV 10.7, Immature Gran % (Auto) 0.300, Neut % (Auto) 86.4 H, Lymph % (Auto) 9.6 L, Dolores % (Auto) 3.5, Eos % (Auto) 0.0, Baso % (Auto) 0.2, Absolute Neuts (auto) 5.8, Absolute Lymphs (auto) 0.64 L, Nucleated RBC % 0 11/02/20 11:00: D-Dimer Quant (PE/DVT) 1.68 H* 11/02/20 11:00: Sodium 146 H, Potassium 4.0, Chloride 108 H, Carbon Dioxide 31.0, Anion Gap 7, BUN 39 H, Creatinine 1.68 H, Estim Creat Clear Calc 26.37, Est GFR (MDRD) Af Amer 51 L, Est GFR (MDRD) Non-Af 42 L, BUN/Creatinine Ratio 23.2 H, Glucose 133 H, Calcium 8.4 L, Troponin I 0.075 H 11/02/20 11:00: B-Natriuretic Peptide 809.9 H 11/02/20 11:46: Specimen Type ART, Sample Site L Radial, pH 7.59 H, Bicarbonate Actual 28.1 H, Total CO2 29, Base Excess 7 H, O2 Saturation 99, O2 % 60, ABG pCO2 29.1 L, ABG pO2 99, Ramon Test Positive, O2 Delivery Device BiPAP Clinical Impression(s) from Imaging Studies Chest X-Ray 11/02/20 11:35 IMPRESSION: Diffuse bilateral airspace disease worse in the right hemithorax. This may represent either diffuse bilateral pulmonary infiltrates or edema. Electronically Signed: Milan Cao MD at 12:11 EST , Service support , Chest CTA 11/02/20 12:20 IMPRESSION: No evidence of pulmonary embolism. Diffuse bilateral groundglass appearance with areas of confluence was in the right hemithorax superimposed on chronic interstitial scarring and honeycombing. Stable dilatation of the distal portion of the thoracic aorta as it enters the diaphragmatic hiatus with evidence of a prior dissection. Electronically Signed: Milan Cao MD at 12:44 EST , Service support , Assessment/Plan All Active Problems (Last Reviewed 08/27/20 @ 01:[address] Naveed Rick MD) Abnormal cardiac enzyme level (Acute) Acute hypoxic respiratory failure (Acute) Acute bilateral COVID-19 pneumonia (Acute) This is a 80 years old male patient presented to the emergency room because of shortness of breath, cough and weakness for the last 3 to 4 days, found to have extensive bilateral infiltrate on chest x-ray more prominent on the right lung and he tested positive for COVID-19 antigen, found to have acute bilateral COVID-19 pneumonia complicated by acute hypoxic respiratory failure and is being admitted for treatment. #1 acute bilateral COVID-19 pneumonia: Chest x-ray and CTA chest reviewed as above. Currently, patient is on BiPAP. COVID-19 antigen came back positive. Plan: Admit to ICU, critical care monitoring, clear liquids, continue BiPAP, start IV Decadron, IV remdesivir, Tylenol as needed, Zofran as needed, critical care consult, check pro time and INR, fibrinogen, procalcitonin, LFT, infectious disease consult, repeat CBC and CMP tomorrow morning, PT OT evaluation and treatment. #2 acute hypoxic respiratory failure: Secondary to #1. Normal, he does not use oxygen at home. Currently, he is on BiPAP. ABG revealed pH of 7.59, PCO2 of 29 and PO2 of 99 while on BiPAP. Plan as above. #3 abnormal cardiac enzyme: Probably due to demand ischemia. EKG without acute ischemic changes. Patient denied any chest pain. Troponin is 0.075. Plan: Cardiac monitoring, serial cardiac enzymes, repeat EKG tomorrow morning. #4 stage III chronic kidney disease: Creatinine has been fluctuating anywhere between 1.2 to 1.7 mg/dL. Admission creatinine is 1.68, close to baseline, stable. #5 paroxysmal atrial fibrillation: Heart rate stable, continue amiodarone and Coreg for rate control, continue Coumadin for anticoagulation, check INR. #6 CAD status post stents: EKG reviewed as above. Troponin is minimally elevated. Plan as above, continue Coreg, Altace, Crestor and Coumadin. #7 COPD: Currently, he is on BiPAP. ABG reviewed as above. Plan for albuterol inhaler as needed, Advair or Symbicort twice daily. #8 chronic anemia: Due to anemia of chronic disease, baseline hemoglobin is been around 8 to 9 g/dL, admission hemoglobin is 10.1 g/dL. #9 chronic diastolic CHF: BNP is elevated but it has been this way chronically. Plan to continue Coreg and Altace, continue Lasix. #10 hypothyroidism: Continue levothyroxine. #11 history of ascending aortic dissection: Status post repair, stable, no acute issues. #12 CODE STATUS: Full code, discussed with the patient. Patient wanted everything to be done including intubation and mechanical ventilation. #13 DVT prophylaxis: This note was generated with [employer] dictation software. It may contain incorrect words, spelling, and punctuation that were not noted in checking the note before signing. Inpatient E&M: 83874 Init Hosp L3
--- NOTE | 2020-11-02 13:03 | NURSING ---
cv 1cu 201 [facility],
[2020-11-02 14:12] LABS: AST(SGOT) 40 U/L (15-37); Alanine Aminotransfer ALT/SGPT 17 U/L (16-61); Albumin, Serum 2.8 g/dL (3.2-5.0); Alkaline Phosphatase 100 U/L (45-117); Bilirubin, Direct 0.12 mg/dL (0.00-0.30); Globulin 4.2 g/dL (2.2-4.2); LDH 612 U/L (87-241)
[2020-11-02] MEDS: Carvedilol 25 MG Tablet PO ×2 (14:39→20:02)
[2020-11-02 14:52] LABS: Prothrombin Time (Protime)PT. 41.9 SECONDS (11.7-14.9)
[2020-11-02 14:59] LABS: International Normalized Ratio 4.4
[2020-11-02 15:10] LABS: Procalcitonin 5.87 ng/mL (0.00-0.09)
--- NOTE | 2020-11-02 15:28 | CON.PCM_ITS ---
Problem List (1) Acute bilateral COVID-19 pneumonia Status: Acute Reason for Consult: covid Consulted by: Dr. Pendleton History of Present Illness: The patient is a 80 year old M, presented with sx starting 10/29 with fever, chills, cough, diarrhea, aches, fatigue. No change in taste or smell. No known sick contacts. Lives with and 8 y/o adopted child, both have been healthy. Came to ED, covid (+), admitted. Full ROS performed and neg except as noted above. - Medical History Past Medical History (Chronic Problems): Chronic Problems (Last Reviewed 08/27/20 @ 01:[address] Naveed Rick MD) Failed total hip arthroplasty (Chronic) Chronic left hip pain (Chronic) Other specified peripheral vascular diseases (Chronic) Tinea unguium (Chronic) Thoracoabdominal aneurysm (Chronic) Placement of a [place] VBX 6 x 29 balloon expandable covered stent into the left renal artery aneurysm and dissection, placement of an 8 x 150 Viabahn to left popliteal aneurysm and left popliteal artery postdilated tension with a 8 x 100 command center analyst balloon on 04/16/[address] [facility] [address] Brody Scott; Closed left hip fracture (Chronic) Aortic stenosis (Chronic) DVT (deep venous thrombosis) (Chronic) Anemia (Chronic) Chronic kidney disease (Chronic) Peripheral arterial occlusive disease (Chronic) Thoracic aortic aneurysm (Chronic) Abdominal aortic aneurysm (Chronic) BPH (benign prostatic hyperplasia) (Chronic) Urinary retention (Chronic) Closed right hip fracture (Chronic) Hyperlipidemia (Chronic) Coronary artery disease (Chronic) Hypertension (Chronic) Chronic diastolic heart failure (Chronic) Thoracic aortic aneurysm, ruptured (Chronic) Mixed hyperlipidemia (Chronic) Chronic heart failure with preserved ejection fraction (Chronic) History of aortic valve repair (Chronic ~10/28/07) Hx of repair of ascending aorta (Chronic ~10/28/07) 32mm Hemishield graft 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) Essential hypertension (Chronic) Presence of stent in coronary artery (Chronic ~05/24/06) PCI/ILANA of the of 2nd Diagonal instent restenosis 05/24/06 Atherosclerotic heart disease of [place] coronary artery without angina pectoris (Chronic) COPD (chronic obstructive pulmonary disease) (Chronic) Tobacco abuse (Chronic) Tobacco dependence in remission (Chronic) Pulmonary embolism (Chronic) Hypothyroidism (Chronic) Atrial fibrillation (Chronic) Allergies/Adverse Reactions: Allergies No Known Allergies Allergy (Verified 10/20/20 18:10) Home Medications: Ambulatory Orders Medication Instructions Recorded nitroglycerin 0.4 mg sublingual 0.4 mg SUBLINGUAL Q5-15M PRN 04/23/18 tablet levothyroxine 100 mcg tablet 150 mcg PO DAILY tab 12/04/19 Furosemide 40 mg PO DAILY 04/07/20 Rosuvastatin Calcium [Crestor] 10 mg PO QHS 05/02/20 carvedilol 25 mg tablet 25 mg PO BID 08/21/20 cholecalciferol (vitamin D3) 50 50 mcg PO DAILY 08/21/20 mcg (2,000 unit) capsule clopidogrel 75 mg tablet 75 mg PO DAILY 08/21/20 folic acid 1 mg tablet 1 mg PO DAILY 08/21/20 Acetaminophen [Tylenol] 1,000 mg PO Q8 08/28/20 Calcium Carbonate [Tums] 500 mg PO Q6H PRN PRN tab 08/28/20 Ramipril [Altace] 10 mg PO DAILY 08/28/20 Iron Polysaccharide Complex 150 mg PO DAILYCM #30 cap 09/15/20 [Ferrex 150] Menthol/Lanolin/Calamine/Znox 1 applic TOPICAL 0600,2200 tube 09/15/20 [Calmoseptine Ointment] Warfarin [Coumadin] 3 mg PO DAILY@1700 #30 tab 09/15/20 amiodarone 200 mg tablet 200 mg PO DAILY #90 tab 10/12/20 - Social History SMOKING STATUS:: Former smoker Vital Signs Temp Pulse Resp BP Pulse Ox 98.2 F 62 17 153/47 H 88 11/02/20 12:43 11/02/20 14:46 11/02/20 13:00 11/02/20 13:00 11/02/20 13:00 Oxygen Delivery Method Bi-pap Weight: 59.3 kg Body Mass Index (BMI) 24.7 Microbiology Past 72 Hours 11/02/20 11:27 SARS-CoV-2 Antigen (Rapid) - Final Mucosa - Nose SARS-CoV-2 (COVID 19) Laboratory Tests Past 24 Hrs 11/02/20 11/02/20 11/02/20 11:00 11:00 11:00 WBC 6.7 RBC 3.68 L Hgb 10.1 L Hct 33.6 L MCV 91.3 MCH 27.4 MCHC 30.1 L RDW Std Deviation 50.6 H RDW Coeff of Ej 15.1 H Plt Count 150 MPV 10.7 Immature Gran % (Auto) 0.300 Neut % (Auto) 86.4 H Lymph % (Auto) 9.6 L Blount % (Auto) 3.5 Eos % (Auto) 0.0 Baso % (Auto) 0.2 Absolute Neuts (auto) 5.8 Absolute Lymphs (auto) 0.64 L Nucleated RBC % 0 PT INR D-Dimer Quant (PE/DVT) 1.68 H* Specimen Type Sample Site pH Bicarbonate Actual Total CO2 Base Excess O2 Saturation O2 % ABG pCO2 ABG pO2 Ramon Test O2 Delivery Device Sodium 146 H Potassium 4.0 Chloride 108 H Carbon Dioxide 31.0 Anion Gap 7 BUN 39 H Creatinine 1.68 H Estim Creat Clear Calc 26.37 Est GFR (MDRD) Af Amer 51 L Est GFR (MDRD) Non-Af 42 L BUN/Creatinine Ratio 23.2 H Glucose 133 H Calcium 8.4 L Total Bilirubin Direct Bilirubin AST ALT Alkaline Phosphatase Lactate Dehydrogenase Troponin I 0.075 H B-Natriuretic Peptide Total Protein Albumin Globulin Procalcitonin 11/02/20 11/02/20 11/02/20 11:00 11:00 11:46 WBC RBC Hgb Hct MCV MCH MCHC RDW Std Deviation RDW Coeff of Ej Plt Count MPV Immature Gran % (Auto) Neut % (Auto) Lymph % (Auto) Blount % (Auto) Eos % (Auto) Baso % (Auto) Absolute Neuts (auto) Absolute Lymphs (auto) Nucleated RBC % PT INR D-Dimer Quant (PE/DVT) Specimen Type ART Sample Site L Radial pH 7.59 H Bicarbonate Actual 28.1 H Total CO2 29 Base Excess 7 H O2 Saturation 99 O2 % 60 ABG pCO2 29.1 L ABG pO2 99 Ramon Test Positive O2 Delivery Device BiPAP Sodium Potassium Chloride Carbon Dioxide Anion Gap BUN Creatinine Estim Creat Clear Calc Est GFR (MDRD) Af Amer Est GFR (MDRD) Non-Af BUN/Creatinine Ratio Glucose Calcium Total Bilirubin 0.40 Direct Bilirubin 0.12 AST 40 H ALT 17 Alkaline Phosphatase 100 Lactate Dehydrogenase 612 H Troponin I B-Natriuretic Peptide 809.9 H Total Protein 7.0 Albumin 2.8 L Globulin 4.2 Procalcitonin 11/02/20 11/02/20 11/02/20 14:25 14:25 14:25 WBC RBC Hgb Hct MCV MCH MCHC RDW Std Deviation RDW Coeff of Ej Plt Count MPV Immature Gran % (Auto) Neut % (Auto) Lymph % (Auto) Blount % (Auto) Eos % (Auto) Baso % (Auto) Absolute Neuts (auto) Absolute Lymphs (auto) Nucleated RBC % PT 41.9 H INR 4.4 H* D-Dimer Quant (PE/DVT) Specimen Type Sample Site pH Bicarbonate Actual Total CO2 Base Excess O2 Saturation O2 % ABG pCO2 ABG pO2 Ramon Test O2 Delivery Device Sodium Potassium Chloride Carbon Dioxide Anion Gap BUN Creatinine Estim Creat Clear Calc Est GFR (MDRD) Af Amer Est GFR (MDRD) Non-Af BUN/Creatinine Ratio Glucose Calcium Total Bilirubin Direct Bilirubin AST ALT Alkaline Phosphatase Lactate Dehydrogenase Troponin I 0.092 H B-Natriuretic Peptide Total Protein Albumin Globulin Procalcitonin 5.87 H - Other Studies Radiology: [] reviewed Other Studies: [] Route of nutrition/ use of supplements: [] Nutritional Intake: [] IV Site: [] Mcdowell Catheter: [] - Physical Exam General: Alert, Cooperative, No apparent distress HEENT: Atraumatic, PERRLA, EOMI Neck: Supple, No Nodes Lungs: Diminished Cardiovascular: Regular rate, Regular Rhythm Abdomen: Soft, Non Tender, Non-Distended Extremities: No edema Skin: No rashes IV Site: Peripheral, without redness Musculoskeletal: No Tenderness to Palpation of Joints or Extremities Neurological: Cranial nerves II-XII grossly intact - Assessment/Plan Antibiotics: [] Assessment/Plan: [] Active and Suspected Problems (Last Reviewed 08/27/20 @ 01:[address] Naveed Rick MD) Abnormal cardiac enzyme level (Acute) Acute hypoxic respiratory failure (Acute) Acute bilateral COVID-19 pneumonia (Acute) covid with hypoxia - sx started 10/29. Recommend quarantine and get tested. CT neg for PE. Elevated INR on coumadin. ALT normal. Will treat with po dex and remdesivir. D-dimer 1.7. Will follow, thank you
[2020-11-02] MEDS: Ramipril 10 MG Capsule PO (16:08)
[2020-11-02] MEDS: Furosemide 40 MG Tablet PO (16:08)
[2020-11-02] MEDS: Amiodarone 200 MG Tablet PO (16:08)
--- NOTE | 2020-11-02 16:38 | PCM.CON.CC ---
Problem List (1) Abnormal cardiac enzyme level Status: Acute (2) Acute hypoxic respiratory failure Status: Acute (3) Acute bilateral COVID-19 pneumonia Status: Acute (4) Failed total hip arthroplasty Status: Chronic (5) Thoracoabdominal aneurysm Status: Chronic Comment: Placement of a [place] VBX 6 x 29 balloon expandable covered stent into the left renal artery aneurysm and dissection, placement of an 8 x 150 Viabahn to left popliteal aneurysm and left popliteal artery postdilated tension with a 8 x 100 bellows charger assembler balloon on 04/16/2020 at [facility] with Dr. Brody Scott; (6) Aortic stenosis Status: Chronic (7) DVT (deep venous thrombosis) Status: Chronic (8) Chronic kidney disease Status: Chronic (9) Peripheral arterial occlusive disease Status: Chronic (10) Urinary retention Status: Chronic (11) Hyperlipidemia Status: Chronic Qualifiers: (12) Coronary artery disease Status: Chronic (13) Chronic diastolic heart failure Status: Chronic (14) History of aortic valve repair Status: Chronic (15) Hx of repair of ascending aorta Status: Chronic Comment: 32mm Hemishield graft (16) Presence of stent in coronary artery Status: Chronic Comment: PCI/ILANA of the of 2nd Diagonal instent restenosis 05/24/06 (17) COPD (chronic obstructive pulmonary disease) Status: Chronic (18) Tobacco dependence in remission Status: Chronic Reason for Consult Date of Consultation: 11/02/20 Reason for Consultation: Respiratory failure History of Present Illness: The patient is a 80 year old M, with past medical history listed below, who presented [facility] on 11/02/2020 secondary to progressive shortness of breath. Patient reportedly had a right hip surgery 2 weeks ago. Patient states that 5 days ago he started to have increasing shortness of breath and a slight cough. Patient denied any concomitant fever, chills, nausea, vomiting or chest pain. Patient reportedly had had a negative Covid test prior to his surgery. Patient presented to the ER secondary to progression of symptoms. On arrival to the ER, patient was noted to have a saturation in the 60s on room air. Patient was progressively increased in FiO2 until BiPAP therapy. Patient was noted to have coarse breath sounds bilaterally, but was tolerating hypoxia relatively well. A chest x-ray showed diffuse bilateral infiltrates with slight elevation of the right hemithorax. This was followed up by a CTA showing no PE, but diffuse groundglass opacities, right greater than left and a repaired thoracic dissection. Laboratory work-up did not show a leukocytosis, but patient did have a hemoglobin of 10.1. D-dimer was elevated at 1.68. BNP was remarkable for a creatinine of 1.68. Troponin was slightly elevated and BNP was 809. ABG showed a significant AA gradient and hyperventilation on BiPAP therapy. Patient was then transferred to the intensive care unit after being found to be positive for COVID-19. Since being in the intensive care unit, patient has been able to be weaned to Airvo 55% to maintain saturations. Patient states he feels subjectively improved compared to previous. Patient does have an extensive smoking history, but states he is never required supplemental oxygen previously. Patient has not reported any increase in lower extremity edema, chest pain, nominal pain, nausea or vomiting. Patient denies any recent exposures or trauma. Review of systems otherwise negative from a constitutional, HEENT, respiratory, cardiovascular, GI, genitourinary, musculoskeletal, skin, neurologic, psychiatric and hematologic system unless stated above. Past Medical History Past Medical History (Chronic Problems): Chronic Problems (Last Reviewed 08/27/20 @ 01:[address] Naveed Rick MD) Failed total hip arthroplasty (Chronic) Chronic left hip pain (Chronic) Other specified peripheral vascular diseases (Chronic) Tinea unguium (Chronic) Thoracoabdominal aneurysm (Chronic) Placement of a [place] VBX 6 x 29 balloon expandable covered stent into the left renal artery aneurysm and dissection, placement of an 8 x 150 Viabahn to left popliteal aneurysm and left popliteal artery postdilated tension with a 8 x 100 bellows charger assembler balloon on 04/16/2020 at [facility] with Dr. Brody Scott; Closed left hip fracture (Chronic) Aortic stenosis (Chronic) DVT (deep venous thrombosis) (Chronic) Anemia (Chronic) Chronic kidney disease (Chronic) Peripheral arterial occlusive disease (Chronic) Thoracic aortic aneurysm (Chronic) Abdominal aortic aneurysm (Chronic) BPH (benign prostatic hyperplasia) (Chronic) Urinary retention (Chronic) Closed right hip fracture (Chronic) Hyperlipidemia (Chronic) Coronary artery disease (Chronic) Hypertension (Chronic) Chronic diastolic heart failure (Chronic) Thoracic aortic aneurysm, ruptured (Chronic) Mixed hyperlipidemia (Chronic) Chronic heart failure with preserved ejection fraction (Chronic) History of aortic valve repair (Chronic ~10/28/07) Hx of repair of ascending aorta (Chronic ~10/28/07) 32mm Hemishield graft 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) Onset Date: ~10/28/07 I71.01 Essential hypertension (Chronic) I10 Atherosclerotic heart disease of [place] coronary artery without angina pectoris (Chronic) I25.10 Tobacco dependence in remission (Chronic) F17.201 Pulmonary embolism (Chronic) I26.99 Hypothyroidism (Chronic) E03.9 Atrial fibrillation (Chronic) 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) I71.3 Squamous cell carcinoma of skin (Inactive) C44.92 Allergies No Known Allergies Allergy (Verified 10/20/20 18:10) Home Medications: Ambulatory Orders Medication Instructions Recorded nitroglycerin 0.4 mg sublingual 0.4 mg SUBLINGUAL Q5-15M PRN 04/23/18 tablet levothyroxine 100 mcg tablet 150 mcg PO DAILY tab 12/04/19 Furosemide 40 mg PO DAILY 04/07/20 Rosuvastatin Calcium [Crestor] 10 mg PO QHS 05/02/20 carvedilol 25 mg tablet 25 mg PO BID 08/21/20 cholecalciferol (vitamin D3) 50 50 mcg PO DAILY 08/21/20 mcg (2,000 unit) capsule clopidogrel 75 mg tablet 75 mg PO DAILY 08/21/20 folic acid 1 mg tablet 1 mg PO DAILY 08/21/20 Acetaminophen [Tylenol] 1,000 mg PO Q8 08/28/20 Calcium Carbonate [Tums] 500 mg PO Q6H PRN PRN tab 08/28/20 Ramipril [Altace] 10 mg PO DAILY 08/28/20 Iron Polysaccharide Complex 150 mg PO DAILYCM #30 cap 09/15/20 [Ferrex 150] Menthol/Lanolin/Calamine/Znox 1 applic TOPICAL 0600,2200 tube 09/15/20 [Calmoseptine Ointment] Warfarin [Coumadin] 3 mg PO DAILY@1700 #30 tab 09/15/20 amiodarone 200 mg tablet 200 mg PO DAILY #90 tab 10/12/20 Surgical History: Surgical History (Last Reviewed 08/27/20 @ 01:[address] Naveed Rick MD) Thoracoabdominal aneurysm (Chronic) I71.6 Placement of a [place] VBX 6 x 29 balloon expandable covered stent into the left renal artery aneurysm and dissection, placement of an 8 x 150 Viabahn to left popliteal aneurysm and left popliteal artery postdilated tension with a 8 x 100 bellows charger assembler balloon on 04/16/2020 at [facility] with Dr. 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 Psychiatric History: No pertinent psych hx Lives: Spouse/ Significant Other Smoking Status: Former smoker Alcohol: None Drugs: None - *Family History Maternal Family History: Family History (Last Reviewed 08/27/20 @ 00:[address] Naveed Rick MD) Grandfather Diabetes Brother Heart disease History Items: No pertinent history Paternal Family History: Family History (Last Reviewed 08/27/20 @ 00:[address] Naveed Rick MD) Grandfather Diabetes Brother Heart disease History Items: No pertinent history Offspring Family History: Family History (Last Reviewed 08/27/20 @ 00:[address] Naveed Rick MD) Grandfather Diabetes Brother Heart disease History Items: Hypertension, Seizures, - - Intellectual Delay. Review of Systems Comment: See HPI Patient Problems: Active and Suspected Problems (Last Reviewed 08/27/20 @ 01:[address] Naveed Rick MD) Abnormal cardiac enzyme level (Acute) Acute hypoxic respiratory failure (Acute) Acute bilateral COVID-19 pneumonia (Acute) Objective: All imaging was personally reviewed. Agree with formal interpretation. Patient's last echocardiogram was completed in January 2019. This did show an EF of 55% with left greater than right atrial enlargement. Patient also had moderate mitral annular calcification with associated insufficiency. At that time, pulmonary artery pressures were 34 mmHg. Patient did have a pulmonary function test completed on 06/11/2019 that was within normal limits. - Physical Exam Vitals/I&O's: Vital Signs Temp Pulse Resp BP Pulse Ox 36.4 C L 60 19 H 192/46 H 93 11/02/20 16:00 11/02/20 16:00 11/02/20 16:00 11/02/20 16:00 11/02/20 16:00 Oxygen Delivery Method Airvo Weight: 59.3 kg Body Mass Index (BMI) 24.7 Intake and Output for Last 24 Hours 10/31/20 11/01/20 11/02/20 23:59 23:59 23:59 Intake Total 120 / 120 Balance 120 / 120 General: Alert, Oriented x3, Cooperative, No apparent distress - On Airvo therapy, - - Appears stated age HEENT: Atraumatic, PERRLA, EOMI, Normocephalic, - - No scleral icterus or injection noted Oral: Moist Mucosa, No Gingival or Mucosal Lesions/ Ulcerations Neck: Supple, No Nodes, Trachea Midline, JVD, Right Lungs: No rhonchi, No wheeze, Diminished, Rales - Right greater than left Cardiovascular: Regular rate, Regular Rhythm, Normal S1, Normal S2, Murmur - Grade 2 out of 6 systolic ejection murmur at the right sternal border, No rub noted, No Gallop Abdomen: Bowel Sounds Present, Soft, Non Tender, Non-Distended Extremities: No clubbing, No cyanosis, No edema, Capillary Refill Less than 3 Seconds, - - Right hand amputation Skin: No rashes, No breakdown Musculoskeletal: No Tenderness to Palpation of Joints or Extremities Lymphatic: No Cervical, Supraclavicular, or Inguinal Adenopathy Neurological: Cranial nerves II-XII grossly intact, Neuro grossly intact, Motor Exam 5/5 strength throughout Psych/Mental Status: Normal Affect, Appropriate Microbiology Past 72 Hours 11/02/20 11:27 Mucosa - Nose SARS-CoV-2 Antigen (Rapid) - Final SARS-CoV-2 (COVID 19) Laboratory Results 11/02/20 11:00: WBC 6.7, RBC 3.68 L, Hgb 10.1 L, Hct 33.6 L, MCV 91.3, MCH 27.4, MCHC 30.1 L, RDW Std Deviation 50.6 H, RDW Coeff of Ej 15.1 H, Plt Count 150, MPV 10.7, Immature Gran % (Auto) 0.300, Neut % (Auto) 86.4 H, Lymph % (Auto) 9.6 L, Hitchcock % (Auto) 3.5, Eos % (Auto) 0.0, Baso % (Auto) 0.2, Absolute Neuts (auto) 5.8, Absolute Lymphs (auto) 0.64 L, Nucleated RBC % 0 11/02/20 11:00: D-Dimer Quant (PE/DVT) 1.68 H* 11/02/20 11:00: Sodium 146 H, Potassium 4.0, Chloride 108 H, Carbon Dioxide 31.0, Anion Gap 7, BUN 39 H, Creatinine 1.68 H, Estim Creat Clear Calc 26.37, Est GFR (MDRD) Af Amer 51 L, Est GFR (MDRD) Non-Af 42 L, BUN/Creatinine Ratio 23.2 H, Glucose 133 H, Calcium 8.4 L, Troponin I 0.075 H 11/02/20 11:00: B-Natriuretic Peptide 809.9 H 11/02/20 11:00: Total Bilirubin 0.40, Direct Bilirubin 0.12, AST 40 H, ALT 17, Alkaline Phosphatase 100, Lactate Dehydrogenase 612 H, Total Protein 7.0, Albumin 2.8 L, Globulin 4.2 11/02/20 11:46: Specimen Type ART, Sample Site L Radial, pH 7.59 H, Bicarbonate Actual 28.1 H, Total CO2 29, Base Excess 7 H, O2 Saturation 99, O2 % 60, ABG pCO2 29.1 L, ABG pO2 99, Ramon Test Positive, O2 Delivery Device BiPAP 11/02/20 14:25: PT 41.9 H, INR 4.4 H* 11/02/20 14:25: Procalcitonin 5.87 H 11/02/20 14:25: Troponin I 0.092 H Current Medications Acetaminophen (Acetaminophen 325 Mg Tablet) 650 mg PO Q6H PRN PRN PRN Reason: Pain Score 1-10/Temp > 100.7 F Al Hydroxide/Mg Hydroxide (Mag Hydrox/Al Hydrox/Simeth 30 Ml Udc) 15 ml PO Q6H PRN PRN PRN Reason: Heartburn, indigestion Albuterol Sulfate (Albuterol Sulfate 8 Gm Inhaler (60 Puffs)) 2 puff INHALATION Q4H PRN PRN PRN Reason: Shortness of breath, wheezing Amiodarone HCl (Amiodarone 200 Mg Tablet) 200 mg PO DAILY [facility] Last Admin: 11/02/20 16:08 Dose: 200 mg Documented by: Atorvastatin Calcium (Atorvastatin Calcium 20 Mg Tablet) 20 mg PO QHS [facility] Carvedilol (Carvedilol 25 Mg Tablet) 25 mg PO BID [facility] Last Admin: 11/02/20 14:39 Dose: 25 mg Documented by: Clopidogrel Bisulfate (Clopidogrel Bisulfate 75 Mg Tablet) 75 mg PO DAILY [facility] Dexamethasone (Dexamethasone 4 Mg Tablet) [facility] Stop: 11/11/20 08:01 Famotidine (Famotidine 20 Mg Tablet) 20 mg PO BID [facility] Folic Acid (Folic Acid 1 Mg Tablet) [facility] Furosemide (Furosemide 40 Mg Tablet) 40 mg PO DAILY [facility] Last Admin: 11/02/20 16:08 Dose: 40 mg Documented by: Hydralazine HCl (Hydralazine 20 Mg/Ml Vial) 10 mg IV Q4H PRN PRN PRN Reason: BLOOD PRESSURE ELEVATION Remdesivir 100 mg/ Sodium (Chloride) 250 mls @ 125 mls/hr IV DAILY [facility] Stop: 11/06/20 11:59 Sodium Chloride () 250 mls @ 15 mls/hr IV .[id number] PRN PRN Reason: Saline Flush Sodium Chloride () 250 mls @ 15 mls/hr IV .[id number] PRN PRN Reason: Additional IVPB Infusion Levothyroxine Sodium (Levothyroxine 150 Mcg Tablet) 150 mcg PO DAILY@0600 [facility] Ondansetron HCl (Ondansetron 4 Mg/2 Ml Vial) 4 mg IV Q8H PRN PRN PRN Reason: NAUSEA/VOMITING Polysaccharide Iron Complex (Iron Polysaccharide Complex 150 Mg Capsule) 150 mg PO DAILYCM [facility] Ramipril (Ramipril 10 Mg Capsule) 10 mg PO DAILY [facility] Last Admin: 11/02/20 16:08 Dose: 10 mg Documented by: Fluticasone/Salmeterol (Fluticasone/Salmeterol 232-14 Inhaler) 1 puff IH BID [facility] Senna/Docusate Sodium (Senna/Docusate Sodium 1 Tablet) 2 tablet PO BID PRN PRN PRN Reason: Constipation Sodium Chloride (0.9% Saline Lock 10 Ml Syringe) 10 - 40 ml IV UD PRN PRN Reason: SALINE FLUSH Clinical Impression(s) from Imaging Studies Chest X-Ray 11/02/20 11:35 IMPRESSION: Diffuse bilateral airspace disease worse in the right hemithorax. This may represent either diffuse bilateral pulmonary infiltrates or edema. Electronically Signed: Milan Cao MD at 12:11 EST , Service support , Chest CTA 11/02/20 12:20 IMPRESSION: No evidence of pulmonary embolism. Diffuse bilateral groundglass appearance with areas of confluence was in the right hemithorax superimposed on chronic interstitial scarring and honeycombing. Stable dilatation of the distal portion of the thoracic aorta as it enters the diaphragmatic hiatus with evidence of a prior dissection. Electronically Signed: Milan Cao MD at 12:44 EST , Service support , Assessment/Plan Active and Suspected Problems (Last Reviewed 08/27/20 @ 01:[address] Naveed Rick MD) Abnormal cardiac enzyme level (Acute) Acute hypoxic respiratory failure (Acute) Acute bilateral COVID-19 pneumonia (Acute) RECOMMENDATIONS: 1. Remdesivir and Decadron per infectious disease 2. Wean oxygen as tolerated 3. Diuretic challenge 4. Possible need for [place]cd[place] 5. Okay to discontinue baseline inhaler therapy 6. Hold warfarin given elevated INR IMPRESSIONS: 1. Acute hypoxic respiratory failure secondary to COVID-19 pneumonia Patient with significant groundglass opacities bilaterally with positive Covid test. Patient does have an elevated BNP, but this may be secondary to renal dysfunction and right heart strain. Patient was significantly hypoxic on presentation. Decadron and remdesivir per infectious disease. Patient does have an elevated pro calcitonin, but no leukocytosis or fever. We will hold on empiric antibiotics for now. Infectious disease has been consulted. Continue to monitor renal and liver function given remdesivir. Wean oxygen as tolerated. Cannot exclude the need for BiPAP therapy overnight. Patient is currently on day 5 of symptoms, so clinical condition may deteriorate over the next 5 to 7 days. 2. Chronic diastolic CHF/history of ascending aortic dissection status post repair/paroxysmal A. fib/hypertensive urgency Patient appears to be relatively stable at this time from a cardiac perspective. We will reinitiate baseline medications. Hydralazine as needed has been ordered. Patient would likely benefit from an element of diuretic therapy. Renal function appears to be at his baseline. Okay to continue with Coreg and amiodarone from my perspective. Patient does have an elevated INR, so dosing should be held for today. INR could be elevated if antibiotics are required 3. CKD stage III/chronic anemia/hypothyroidism/advanced age/reported COPD Complicates care, management, recovery and prognosis. Did confirm patient is a full code. Renal function appears to be at baseline. Previous pulmonary function tests are not consistent with a diagnosis of COPD. Likely okay to discontinue inhaler therapy from my perspective. Cannot exclude an element of asthma, but patient is on Decadron therapy and has no wheezing on exam. Okay to continue with baseline medications. Inpatient E&M: 52523 Init Hosp L3
[2020-11-02] MEDS: 0.9% Saline Lock 10 ML Syringe IV ×2 (17:15→22:34)
[2020-11-02] MEDS: hydrALAZINE 20 MG/ML Vial 10 MG IV ×2 (17:15→22:30)
[2020-11-02] MEDS: Atorvastatin Calcium 20 MG Tablet PO (20:01)
[2020-11-02] MEDS: Fluticasone/Salmeterol 232-14 Inhaler 1 PUFF IH (20:01)
[2020-11-02] MEDS: Famotidine 20 MG Tablet PO (20:01)
[2020-11-03] VITALS (27 sets, daily range): BP systolic 124–196; BP diastolic 40–84; PULSE 56–78; RESP 12–24; TEMP 36.3–37.2; O2SAT 83–96
[2020-11-03] MEDS: Metoprolol Tartrate 5 MG/5 ML Vial IV (01:37)
[2020-11-03 05:17] LABS: Hematocrit 29.3 % (40-54); Hemoglobin 9.3 g/dL (13.0-16.5); Mean Corp Hgb Conc 31.7 g/dL (32-36); Mean Corpuscular Hgb 28.1 pg (27.0-32.0); Mean Corpuscular Volume 88.5 fL (80-94); Mean Platelet Vol. 10.7 fl (6.2-12.0); Platelet Count 134 K/mm3 (150-450); RBC Distribution Width CV 15.2 % (11.6-14.6); RBC Distribution Width SD 49.1 fl (35.1-43.9); Red Blood Count 3.31 M/mm3 (4.6-6.2); White Blood Count 4.2 K/mm3 (4.4-11.0)
[2020-11-03 05:30] LABS: ALB/GLOB Ratio 0.6 RATIO (0.9-2.4); AST(SGOT) 42 U/L (15-37); Alanine Aminotransfer ALT/SGPT 16 U/L (16-61); Albumin, Serum 2.3 g/dL (3.2-5.0); Alkaline Phosphatase 88 U/L (45-117); Anion Gap 7 (5-15); BUN 39 mg/dL (7-18); BUN/Creat Ratio 29.1 RATIO (10-20); Calcium,Total 7.7 mg/dL (8.5-10.1); Chloride 105 mmol/L (98-107); Creatinine, Serum 1.34 mg/dL (0.70-1.30); EST Glomerular Filtration Rate 55 mL/min (>60); Est Glom Filt Rate - Afr Amer 66 mL/min (>60); Estimated Creatinine Clearance 33.07 ml/min; Globulin 3.6 g/dL (2.2-4.2); Glucose 109 mg/dL (74-106); Potassium 3.7 mmol/L (3.5-5.1); Protein, Total 5.9 g/dL (6.4-8.2); Sodium Level 143 mmol/L (136-145)
--- NOTE | 2020-11-03 05:55 | EKG12_ITS ---
Test Reason : AM EKG Blood Pressure : / mmHG Vent. Rate : 059 BPM Atrial Rate : 059 BPM P-R Int : 188 ms QRS Dur : 116 ms QT Int : 468 ms P-R-T Axes : -26 -42 073 degrees QTc Int : 463 ms Sinus bradycardia Left axis deviation Left ventricular hypertrophy with QRS widening and repolarization abnormality Abnormal ECG Confirmed by KYRIE BRANNON, CORBIN ([id number]), production editor LORA MAHONEY ([id number]) on 11/10/2020 2:57:02 PM Referred By: ROSAMARIA Confirmed By:CORBIN MITTAL MD
[2020-11-03] MEDS: Levothyroxine 150 MCG Tablet PO (06:57)
[2020-11-03] MEDS: amLODIPine 10 MG Tablet PO (06:57)
--- NOTE | 2020-11-03 07:28 | PN_ITS ---
Subjective: Patient did well overnight. Patient was on BiPAP with sleep, but FiO2 improved with positive pressure. Patient has been tolerating Airvo and doing well. Patient has had some elevated blood pressures, but states this is normal for him and has been worked up as an outpatient. General: Alert, Oriented x3, Cooperative, No apparent distress, - - No conversational dyspnea. HEENT: Atraumatic, PERRLA, EOMI, Normocephalic, - - No scleral icterus or injection noted Oral: Moist Mucosa, No Gingival or Mucosal Lesions/ Ulcerations Neck: Supple, No JVD, No Nodes, Trachea Midline Lungs: No rhonchi, No wheeze, No rales, Diminished, - - Symmetric expansion. No dullness to percussion. Cardiovascular: Normal S1, Normal S2, Bradycardic, Murmur, No rub noted, No Gallop Abdomen: Bowel Sounds Present, Soft, Non Tender, Non-Distended Extremities: No clubbing, No cyanosis, No edema Skin: No rashes, No breakdown Musculoskeletal: No Tenderness to Palpation of Joints or Extremities Lymphatic: No Cervical, Supraclavicular, or Inguinal Adenopathy Neurological: Cranial nerves II-XII grossly intact, Neuro grossly intact, Motor Exam 5/5 strength throughout Psych/Mental Status: Alert and oriented to time, place, person, mood and affect Vital Signs Temp Pulse Resp BP Pulse Ox 36.6 C 58 L 21 H 196/44 H 95 11/03/20 04:00 11/03/20 06:00 11/03/20 06:00 11/03/20 06:00 11/03/20 06:00 Oxygen Delivery Method Airvo Weight: 59.2 kg Body Mass Index (BMI) 24.7 Intake and Output for Last 24 Hours 11/01/20 11/02/20 11/03/20 23:59 23:59 23:59 Intake Total 490 / 690 350 / 350 Output Total 450 / 650 500 / 500 Balance 40 / 40 -150 / -150 Labs (Last 48 Hours) 11/02/20 11/02/20 11/02/20 11:00 11:00 11:00 WBC 6.7 RBC 3.68 L Hgb 10.1 L Hct 33.6 L MCV 91.3 MCH 27.4 MCHC 30.1 L RDW Std Deviation 50.6 H RDW Coeff of Ej 15.1 H Plt Count 150 MPV 10.7 Immature Gran % (Auto) 0.300 Neut % (Auto) 86.4 H Lymph % (Auto) 9.6 L Charlton % (Auto) 3.5 Eos % (Auto) 0.0 Baso % (Auto) 0.2 Absolute Neuts (auto) 5.8 Absolute Lymphs (auto) 0.64 L Nucleated RBC % 0 PT INR D-Dimer Quant (PE/DVT) 1.68 H* Specimen Type Sample Site pH Bicarbonate Actual Total CO2 Base Excess O2 Saturation O2 % ABG pCO2 ABG pO2 Ramon Test O2 Delivery Device Sodium 146 H Potassium 4.0 Chloride 108 H Carbon Dioxide 31.0 Anion Gap 7 BUN 39 H Creatinine 1.68 H Estim Creat Clear Calc 26.37 Est GFR (MDRD) Af Amer 51 L Est GFR (MDRD) Non-Af 42 L BUN/Creatinine Ratio 23.2 H Glucose 133 H Calcium 8.4 L Total Bilirubin Direct Bilirubin AST ALT Alkaline Phosphatase Lactate Dehydrogenase Troponin I 0.075 H B-Natriuretic Peptide Total Protein Albumin Globulin Albumin/Globulin Ratio Procalcitonin 11/02/20 11/02/20 11/02/20 11:00 11:00 11:46 WBC RBC Hgb Hct MCV MCH MCHC RDW Std Deviation RDW Coeff of Ej Plt Count MPV Immature Gran % (Auto) Neut % (Auto) Lymph % (Auto) Charlton % (Auto) Eos % (Auto) Baso % (Auto) Absolute Neuts (auto) Absolute Lymphs (auto) Nucleated RBC % PT INR D-Dimer Quant (PE/DVT) Specimen Type ART Sample Site L Radial pH 7.59 H Bicarbonate Actual 28.1 H Total CO2 29 Base Excess 7 H O2 Saturation 99 O2 % 60 ABG pCO2 29.1 L ABG pO2 99 Ramon Test Positive O2 Delivery Device BiPAP Sodium Potassium Chloride Carbon Dioxide Anion Gap BUN Creatinine Estim Creat Clear Calc Est GFR (MDRD) Af Amer Est GFR (MDRD) Non-Af BUN/Creatinine Ratio Glucose Calcium Total Bilirubin 0.40 Direct Bilirubin 0.12 AST 40 H ALT 17 Alkaline Phosphatase 100 Lactate Dehydrogenase 612 H Troponin I B-Natriuretic Peptide 809.9 H Total Protein 7.0 Albumin 2.8 L Globulin 4.2 Albumin/Globulin Ratio Procalcitonin 11/02/20 11/02/20 11/02/20 14:25 14:25 14:25 WBC RBC Hgb Hct MCV MCH MCHC RDW Std Deviation RDW Coeff of Ej Plt Count MPV Immature Gran % (Auto) Neut % (Auto) Lymph % (Auto) Charlton % (Auto) Eos % (Auto) Baso % (Auto) Absolute Neuts (auto) Absolute Lymphs (auto) Nucleated RBC % PT 41.9 H INR 4.4 H* D-Dimer Quant (PE/DVT) Specimen Type Sample Site pH Bicarbonate Actual Total CO2 Base Excess O2 Saturation O2 % ABG pCO2 ABG pO2 Ramon Test O2 Delivery Device Sodium Potassium Chloride Carbon Dioxide Anion Gap BUN Creatinine Estim Creat Clear Calc Est GFR (MDRD) Af Amer Est GFR (MDRD) Non-Af BUN/Creatinine Ratio Glucose Calcium Total Bilirubin Direct Bilirubin AST ALT Alkaline Phosphatase Lactate Dehydrogenase Troponin I 0.092 H B-Natriuretic Peptide Total Protein Albumin Globulin Albumin/Globulin Ratio Procalcitonin 5.87 H 11/02/20 11/03/20 11/03/20 17:10 04:35 04:35 WBC 4.2 L RBC 3.31 L Hgb 9.3 L Hct 29.3 L MCV 88.5 MCH 28.1 MCHC 31.7 L D RDW Std Deviation 49.1 H RDW Coeff of Ej 15.2 H Plt Count 134 L MPV 10.7 Immature Gran % (Auto) Neut % (Auto) Lymph % (Auto) Charlton % (Auto) Eos % (Auto) Baso % (Auto) Absolute Neuts (auto) Absolute Lymphs (auto) Nucleated RBC % PT INR D-Dimer Quant (PE/DVT) Specimen Type Sample Site pH Bicarbonate Actual Total CO2 Base Excess O2 Saturation O2 % ABG pCO2 ABG pO2 Ramon Test O2 Delivery Device Sodium 143 Potassium 3.7 Chloride 105 Carbon Dioxide 31.0 Anion Gap 7 BUN 39 H Creatinine 1.34 H Estim Creat Clear Calc 33.07 Est GFR (MDRD) Af Amer 66 Est GFR (MDRD) Non-Af 55 L BUN/Creatinine Ratio 29.1 H Glucose 109 H Calcium 7.7 L Total Bilirubin 0.50 Direct Bilirubin AST 42 H ALT 16 Alkaline Phosphatase 88 Lactate Dehydrogenase Troponin I 0.108 H B-Natriuretic Peptide Total Protein 5.9 L Albumin 2.3 L Globulin 3.6 Albumin/Globulin Ratio 0.6 L Procalcitonin Microbiology 11/02/20 11:27 Mucosa - Nose SARS-CoV-2 Antigen (Rapid) - Final SARS-CoV-2 (COVID 19) Clinical Impression(s) from Imaging Studies Chest X-Ray 11/02/20 11:35 IMPRESSION: Diffuse bilateral airspace disease worse in the right hemithorax. This may represent either diffuse bilateral pulmonary infiltrates or edema. Electronically Signed: Milan Cao MD at 12:11 EST , Service support , Chest CTA 11/02/20 12:20 IMPRESSION: No evidence of pulmonary embolism. Diffuse bilateral groundglass appearance with areas of confluence was in the right hemithorax superimposed on chronic interstitial scarring and honeycombing. Stable dilatation of the distal portion of the thoracic aorta as it enters the diaphragmatic hiatus with evidence of a prior dissection. Electronically Signed: Milan Cao MD at 12:44 EST , Service support , Medical Necessity - Tobacco Use Smoking Status: Former smoker Assessment/Plan All Active Problems (Last Reviewed 08/27/20 @ 01:[address] Naveed Rick MD) Abnormal cardiac enzyme level (Acute) Acute hypoxic respiratory failure (Acute) Acute bilateral COVID-19 pneumonia (Acute) RECOMMENDATIONS: 1. Remdesivir and Decadron per infectious disease 2. Wean oxygen as tolerated 3. Diuretic challenge 4. Recheck INR and reinitiate warfarin when in therapeutic range 5. Okay to discontinue baseline inhaler therapy 6. Hold warfarin given elevated INR 7. Okay to leave the intensive care unit from my perspective when blood pressure better controlled IMPRESSIONS: 1. Acute hypoxic respiratory failure secondary to COVID-19 pneumonia Patient with significant groundglass opacities bilaterally with positive Covid test. Patient does have an elevated BNP, but this may be secondary to renal dysfunction and right heart strain. Patient was significantly hypoxic on presentation. Decadron and remdesivir per infectious disease. Patient does have an elevated pro calcitonin, but no leukocytosis or fever. We will hold on empiric antibiotics for now. Infectious disease has been consulted. Continue to monitor renal and liver function given remdesivir. Wean oxygen as tolerated. Cannot exclude the need for BiPAP therapy overnight. Patient is currently on day 6 of symptoms, so clinical condition may deteriorate over the next 5 to 7 days. We will give an additional dose of Lasix this evening. 2. Chronic diastolic CHF/history of ascending aortic dissection status post repair/paroxysmal A. fib/hypertensive urgency Patient appears to be relatively stable at this time from a cardiac perspective. We will reinitiate baseline medications. Hydralazine as needed has been ordered. Add Norvasc. Patient would likely benefit from an element of diuretic therapy. Renal function appears to be at his baseline. Okay to continue with Coreg and amiodarone from my perspective. Patient does have an elevated INR, so dosing should be held for today. INR could be elevated if antibiotics are required 3. CKD stage III/chronic anemia/hypothyroidism/advanced age/reported COPD Complicates care, management, recovery and prognosis. Did confirm patient is a full code. Renal function appears to be at baseline. Previous pulmonary function tests are not consistent with a diagnosis of COPD. Likely okay to discontinue inhaler therapy from my perspective. Cannot exclude an element of asthma, but patient is on Decadron therapy and has no wheezing on exam. Okay to continue with other baseline medications. Inpatient E&M: 69914 [facility] Hosp L3
[2020-11-03] MEDS: Mag Hydrox/Al Hydrox/Simeth 30 ML UDC 15 ML PO (09:59)
[2020-11-03] MEDS: Furosemide 40 MG Tablet PO ×2 (10:00→17:24)
[2020-11-03] MEDS: Clopidogrel Bisulfate 75 MG Tablet PO (10:00)
[2020-11-03] MEDS: Famotidine 20 MG Tablet PO ×2 (10:00→22:21)
[2020-11-03] MEDS: dexAMETHasone 4 MG Tablet 6 MG PO (10:01)
[2020-11-03] MEDS: Carvedilol 25 MG Tablet PO ×2 (10:01→22:21)
[2020-11-03] MEDS: Iron Polysaccharide Complex 150 MG CAPSULE PO (10:01)
[2020-11-03] MEDS: Ramipril 10 MG Capsule PO (10:02)
[2020-11-03] MEDS: Folic Acid 1 MG Tablet PO (10:02)
[2020-11-03] MEDS: Amiodarone 200 MG Tablet PO (10:02)
--- NOTE | 2020-11-03 10:22 | PN_ITS ---
Patient Problems: Active and Suspected Problems (Last Reviewed 08/27/20 @ 01:[address] Naveed Rick MD) Abnormal cardiac enzyme level (Acute) Acute hypoxic respiratory failure (Acute) Acute bilateral COVID-19 pneumonia (Acute) Subjective: Chief complaint: Follow-up after admission for acute bilateral COVID-19 pneumonia and acute hypoxic respiratory failure. Patient seen and examined. No acute events overnight. His morning, he mentioned that he is feeling better. He is on Airvo with FiO2 of 50%, pulse ox has been in the range of around 90%. Blood pressure elevated, afebrile, heart rate stable. - Physical Exam Vitals/I&O's: Vital Signs Temp Pulse Resp BP Pulse Ox 97.9 F 58 L 21 H 196/44 H 95 11/03/20 04:00 11/03/20 06:00 11/03/20 06:00 11/03/20 06:00 11/03/20 06:00 Oxygen Delivery Method Airvo Weight: 130 lb 8.218 oz Body Mass Index (BMI) 24.7 Intake and Output for Last 24 Hours 11/01/20 11/02/20 11/03/20 23:59 23:59 23:59 Intake Total 490 / 690 350 / 350 Output Total 450 / 650 500 / 500 Balance 40 / 40 -150 / -150 General: Alert, Oriented x3, Cooperative, - - Mildly short of breath. HEENT: Atraumatic, PERRLA, EOMI, Normocephalic Oral: Moist Mucosa, No Gingival or Mucosal Lesions/ Ulcerations Neck: Supple, No JVD, Negative Carotid Bruits, Trachea Midline, Thyroid Normal Size and Texture Lungs: Clear to auscultation, Normal air movement, No rhonchi, No rales, Diminished Cardiovascular: Regular rate, Regular Rhythm, Normal S1, Normal S2, PMI Normal Abdomen: Bowel Sounds Present, Soft, Non Tender, Non-Distended, No Hepato- splenomegaly Extremities: No clubbing, No cyanosis, No edema Skin: No rashes, No breakdown Lymphatic: No Cervical, Supraclavicular, or Inguinal Adenopathy Neurological: Cranial nerves II-XII grossly intact, Neuro grossly intact Psych/Mental Status: Normal Affect, Appropriate Microbiology Past 72 Hours 11/02/20 11:27 Mucosa - Nose SARS-CoV-2 Antigen (Rapid) - Final SARS-CoV-2 (COVID 19) Laboratory Results 11/02/20 11:00: WBC 6.7, RBC 3.68 L, Hgb 10.1 L, Hct 33.6 L, MCV 91.3, MCH 27.4, MCHC 30.1 L, RDW Std Deviation 50.6 H, RDW Coeff of Ej 15.1 H, Plt Count 150, MPV 10.7, Immature Gran % (Auto) 0.300, Neut % (Auto) 86.4 H, Lymph % (Auto) 9.6 L, [place] % (Auto) 3.5, Eos % (Auto) 0.0, Baso % (Auto) 0.2, Absolute Neuts (auto) 5.8, Absolute Lymphs (auto) 0.64 L, Nucleated RBC % 0 11/02/20 11:00: D-Dimer Quant (PE/DVT) 1.68 H* 11/02/20 11:00: Sodium 146 H, Potassium 4.0, Chloride 108 H, Carbon Dioxide 31.0, Anion Gap 7, BUN 39 H, Creatinine 1.68 H, Estim Creat Clear Calc 26.37, Est GFR (MDRD) Af Amer 51 L, Est GFR (MDRD) Non-Af 42 L, BUN/Creatinine Ratio 23.2 H, Glucose 133 H, Calcium 8.4 L, Troponin I 0.075 H 11/02/20 11:00: B-Natriuretic Peptide 809.9 H 11/02/20 11:00: Total Bilirubin 0.40, Direct Bilirubin 0.12, AST 40 H, ALT 17, Alkaline Phosphatase 100, Lactate Dehydrogenase 612 H, Total Protein 7.0, Albumin 2.8 L, Globulin 4.2 11/02/20 11:46: Specimen Type ART, Sample Site L Radial, pH 7.59 H, Bicarbonate Actual 28.1 H, Total CO2 29, Base Excess 7 H, O2 Saturation 99, O2 % 60, ABG pCO2 29.1 L, ABG pO2 99, Ramon Test Positive, O2 Delivery Device BiPAP 11/02/20 14:25: PT 41.9 H, INR 4.4 H* 11/02/20 14:25: Procalcitonin 5.87 H 11/02/20 14:25: Troponin I 0.092 H 11/02/20 17:10: Troponin I 0.108 H 11/03/20 04:35: WBC 4.2 L, RBC 3.31 L, Hgb 9.3 L, Hct 29.3 L, MCV 88.5, MCH 28.1, MCHC 31.7 L D, RDW Std Deviation 49.1 H, RDW Coeff of Ej 15.2 H, Plt Count 134 L, MPV 10.7 11/03/20 04:35: Sodium 143, Potassium 3.7, Chloride 105, Carbon Dioxide 31.0, Anion Gap 7, BUN 39 H, Creatinine 1.34 H, Estim Creat Clear Calc 33.07, Est GFR (MDRD) Af Amer 66, Est GFR (MDRD) Non-Af 55 L, BUN/Creatinine Ratio 29.1 H, Glucose 109 H, Calcium 7.7 L, Total Bilirubin 0.50, AST 42 H, ALT 16, Alkaline Phosphatase 88, Total Protein 5.9 L, Albumin 2.3 L, Globulin 3.6, Albumin/Globulin Ratio 0.6 L Current Medications Acetaminophen (Acetaminophen 325 Mg Tablet) 650 mg PO Q6H PRN PRN PRN Reason: Pain Score 1-10/Temp > 100.7 F Al Hydroxide/Mg Hydroxide (Mag Hydrox/Al Hydrox/Simeth 30 Ml Udc) 15 ml PO Q6H PRN PRN PRN Reason: Heartburn, indigestion Last Admin: 11/03/20 09:59 Dose: 15 ml Documented by: Albuterol Sulfate (Albuterol Sulfate 8 Gm Inhaler (60 Puffs)) 2 puff INHALATION Q4H PRN PRN PRN Reason: Shortness of breath, wheezing Amiodarone HCl (Amiodarone 200 Mg Tablet) 200 mg PO DAILY [facility] Last Admin: 11/03/20 10:02 Dose: 200 mg Documented by: Atorvastatin Calcium (Atorvastatin Calcium 20 Mg Tablet) 20 mg PO QHS [facility] Last Admin: 11/02/20 20:01 Dose: 20 mg Documented by: Carvedilol (Carvedilol 25 Mg Tablet) 25 mg PO BID [facility] Last Admin: 11/03/20 10:01 Dose: 25 mg Documented by: Clopidogrel Bisulfate (Clopidogrel Bisulfate 75 Mg Tablet) 75 mg PO DAILY [facility] Last Admin: 11/03/20 10:00 Dose: 75 mg Documented by: Dexamethasone ([facility] 4 Mg Tablet) [facility] Stop: 11/11/20 08:01 Last Admin: 11/03/20 10:01 Dose: 6 mg Documented by: Famotidine (Famotidine 20 Mg Tablet) 20 mg PO BID [facility] Last Admin: 11/03/20 10:00 Dose: 20 mg Documented by: Folic Acid (Folic Acid 1 Mg Tablet) [facility] Last Admin: 11/03/20 10:02 Dose: 1 mg Documented by: Furosemide (Furosemide 40 Mg Tablet) 40 mg PO DAILY [facility] Last Admin: 11/03/20 10:00 Dose: 40 mg Documented by: Furosemide (Furosemide 40 Mg Tablet) 40 mg PO [facility] Stop: 11/03/20 18:01 Hydralazine HCl (Hydralazine 20 Mg/Ml Vial) 10 mg IV Q4H PRN PRN PRN Reason: BLOOD PRESSURE ELEVATION Last Admin: 11/02/20 22:30 Dose: 10 mg Documented by: Remdesivir 100 mg/ Sodium (Chloride) 250 mls @ 125 mls/hr IV DAILY [facility] Stop: 11/06/20 11:59 Sodium Chloride () 250 mls @ 15 mls/hr IV .[id number] PRN PRN Reason: Saline Flush Sodium Chloride () 250 mls @ 15 mls/hr IV .[id number] PRN PRN Reason: Additional IVPB Infusion Levothyroxine Sodium (Levothyroxine 150 Mcg Tablet) 150 mcg PO DAILY@0600 [facility] Last Admin: 11/03/20 06:57 Dose: 150 mcg Documented by: Ondansetron HCl (Ondansetron 4 Mg/2 Ml Vial) 4 mg IV Q8H PRN PRN PRN Reason: NAUSEA/VOMITING Polysaccharide Iron Complex (Iron Polysaccharide Complex 150 Mg Capsule) [facility] Last Admin: 11/03/20 10:01 Dose: 150 mg Documented by: Ramipril (Ramipril 10 Mg Capsule) 10 mg PO DAILY [facility] Last Admin: 11/03/20 10:02 Dose: 10 mg Documented by: Senna/Docusate Sodium (Senna/Docusate Sodium 1 Tablet) 2 tablet PO BID PRN PRN PRN Reason: Constipation Sodium Chloride (0.9% Saline Lock 10 Ml Syringe) 10 - 40 ml IV UD PRN PRN Reason: SALINE FLUSH Last Admin: 11/02/20 22:34 Dose: 10 ml Documented by: Medical Necessity - Tobacco Use Smoking Status: Former smoker Assessment/Plan All Active Problems (Last Reviewed 08/27/20 @ 01:[address] Naveed Rick MD) Abnormal cardiac enzyme level (Acute) Acute hypoxic respiratory failure (Acute) Acute bilateral COVID-19 pneumonia (Acute) This is a 80 years old male patient presented to the emergency room because of shortness of breath, cough and weakness for the last 3 to 4 days, found to have extensive bilateral infiltrate on chest x-ray more prominent on the right lung and he tested positive for COVID-19 antigen, found to have acute bilateral COVID-19 pneumonia complicated by acute hypoxic respiratory failure and is being admitted for treatment. #1 acute bilateral COVID-19 pneumonia: He is on IV Decadron, IV in the severe and subcu Lovenox twice daily. Currently, he is on airvo with FiO2 50%, pulse ox has been around 90%. Symptoms has been improving. Blood pressure has been elevated, other vital signs are stable, afebrile. Critical care and infectious disease are on the case. Plan to continue same treatment. #2 acute hypoxic respiratory failure: Secondary to #1. Normal, he does not use oxygen at home. Currently, he is on Airvo as above. #3 abnormal cardiac enzyme: Probably due to demand ischemia. EKG without acute ischemic changes. Patient remains without any chest pain. #4 stage III chronic kidney disease: Creatinine has been fluctuating anywhere between 1.2 to 1.7 mg/dL. Admission creatinine is 1.68, today's creatinine is 1.34, improved, at baseline. #5 paroxysmal atrial fibrillation: Heart rate stable, continue amiodarone and Coreg for rate control. INR is 4.4. Coumadin held. #6 CAD status post stents: EKG reviewed as above. continue Coreg, Altace, Crestor and Coumadin. #7 COPD: Currently, he is on BiPAP. He is on albuterol inhaler as needed. Plan as above. #8 chronic anemia: Due to anemia of chronic disease, baseline hemoglobin is been around 8 to 9 g/dL, admission hemoglobin is 10.1 g/dL, today's hemoglobin is 9.3 g/dL, stable at baseline. #9 chronic diastolic CHF: Stable, compensated. Continue Coreg and Altace, continue Lasix. #10 hypothyroidism: Continue levothyroxine. #11 history of ascending aortic dissection: Status post repair, stable, no acute issues. #12 CODE STATUS: Full code, discussed with the patient. #13 DVT prophylaxis: INR is 4.4. This note was generated with [employer] dictation software. It may contain incorrect words, spelling, and punctuation that were not noted in checking the note before signing. Inpatient E&M: [id number] Subs Hosp L2
--- NOTE | 2020-11-03 13:33 | CASEMGMT ---
Addendum entered by Paresh Gardner 11/03/20 14:03: DME provider list reviewed with patient's . She prefers [facility] on dc. Ela VILLANUEVA Original Note: RN CM Assessment Note Introduced role of CM to patient's via phone. Demographics, PCP verified. Patient is on Airvo and not able to participate in assessment at this time. Per , the patient had been independent at home until a few days ago. He was able to complete own ADL's and did not need to help him with showering, dressing, etc. did most cooking, shopping. Home Health Care was completed and in September. Presentation: shortness of breath Diagnosis: COVID-19 PMH: RTHR 2 weeks ago, CHF, COPD TESTING: @ [facility] on 11-02-20 PCP: Dr. Abrahan Modi Specialists: [facility]; Dr. Yayo Villavicencio; Dr. Lam Insurance: [employer] Preferred Pharmacy: [facility] Prescription Benefit: yes LNOK: Living Arrangements: Lives in 2 story home, 14 steps to second floor and 2 steps into home. Patient remains on first floor. He ambulates with a walker at home. Son lives nearby and is able to assist if needed. Tranportation: drives DME: walker, cane, shower chair, cane, toilet side rails, hand held shower, grab bars tub/shower, night time nanny. (No oxygen or cpap) HHC: [facility] HHS past. SNF: TCU (4 admissions to TCU since 2019) Patient DC Goals: TBD DC Plan: TBD. Will need to continue to follow for dc needs. PT/OT evaluations pending. Ela VILLANUEVA
[2020-11-03] MEDS: Atorvastatin Calcium 20 MG Tablet PO (22:21)
[2020-11-04] VITALS (20 sets, daily range): BP systolic 141–163; BP diastolic 43–67; PULSE 54–87; RESP 12–21; TEMP 36.1–36.6; O2SAT 90–95
[2020-11-04 04:36] LABS: Hematocrit 30.1 % (40-54); Hemoglobin 9.8 g/dL (13.0-16.5); Mean Corp Hgb Conc 32.6 g/dL (32-36); Mean Corpuscular Hgb 28.1 pg (27.0-32.0); Mean Corpuscular Volume 86.2 fL (80-94); Mean Platelet Vol. 10.2 fl (6.2-12.0); Platelet Count 137 K/mm3 (150-450); Prothrombin Time (Protime)PT. 35.4 SECONDS (11.7-14.9); RBC Distribution Width CV 15.2 % (11.6-14.6); RBC Distribution Width SD 48.3 fl (35.1-43.9); Red Blood Count 3.49 M/mm3 (4.6-6.2); White Blood Count 5.4 K/mm3 (4.4-11.0)
[2020-11-04 04:37] LABS: International Normalized Ratio 3.6
[2020-11-04 04:43] LABS: ALB/GLOB Ratio 0.7 RATIO (0.9-2.4); AST(SGOT) 34 U/L (15-37); Alanine Aminotransfer ALT/SGPT 14 U/L (16-61); Albumin, Serum 2.2 g/dL (3.2-5.0); Alkaline Phosphatase 83 U/L (45-117); Anion Gap 5 (5-15); BUN 51 mg/dL (7-18); BUN/Creat Ratio 41.1 RATIO (10-20); Calcium,Total 7.6 mg/dL (8.5-10.1); Chloride 106 mmol/L (98-107); Creatinine, Serum 1.24 mg/dL (0.70-1.30); EST Glomerular Filtration Rate 60 mL/min (>60); Est Glom Filt Rate - Afr Amer 72 mL/min (>60); Estimated Creatinine Clearance 35.73 ml/min; Globulin 3.3 g/dL (2.2-4.2); Glucose 126 mg/dL (74-106); Potassium 3.3 mmol/L (3.5-5.1); Protein, Total 5.5 g/dL (6.4-8.2); Sodium Level 142 mmol/L (136-145)
[2020-11-04] MEDS: 0.9% Saline Lock 10 ML Syringe IV (04:49)
[2020-11-04] MEDS: Levothyroxine 150 MCG Tablet PO (05:49)
--- NOTE | 2020-11-04 07:23 | PCM.PN.INT ---
Subjective: Patient did well overnight. No acute issues were reported. Patient states his nausea is improved compared to yesterday. No bleeding has been reported. Patient was able to tolerate Airvo throughout the evening. General: Alert, Oriented x3, Cooperative, No apparent distress, - - Appears stated age. Speaking in full sentences. HEENT: Atraumatic, PERRLA, EOMI, Normocephalic Oral: Moist Mucosa, No Gingival or Mucosal Lesions/ Ulcerations Neck: Supple, No JVD, No Nodes, Trachea Midline Lungs: No rhonchi, No wheeze, No rales, Diminished Cardiovascular: Normal S1, Normal S2, Irregular Rate, Murmur, No rub noted, No Gallop Abdomen: Bowel Sounds Present, Soft, Non Tender, Non-Distended Extremities: No clubbing, No cyanosis, No edema Skin: No rashes, No breakdown Musculoskeletal: No Tenderness to Palpation of Joints or Extremities Lymphatic: No Cervical, Supraclavicular, or Inguinal Adenopathy Neurological: Cranial nerves II-XII grossly intact, Neuro grossly intact, Motor Exam 5/5 strength throughout Vital Signs Temp Pulse Resp BP Pulse Ox 36.2 C L 87 21 H 146/66 H 93 11/04/20 04:00 11/04/20 07:21 11/04/20 07:21 11/04/20 04:00 11/04/20 07:21 Oxygen Flow Rate (L/min) 40 Oxygen Delivery Method Airvo Weight: 58.4 kg Body Mass Index (BMI) 24.7 Intake and Output for Last 24 Hours 11/02/20 11/03/20 11/04/20 23:59 23:59 23:59 Intake Total 490 / 690 1470 / 1470 240 / 240 Output Total 450 / 650 1250 / 1450 450 / 450 Balance 40 / 40 220 / 20 -210 / -210 Labs (Last 48 Hours) 11/02/20 11/02/20 11/02/20 11:00 11:00 11:00 WBC 6.7 RBC 3.68 L Hgb 10.1 L Hct 33.6 L MCV 91.3 MCH 27.4 MCHC 30.1 L RDW Std Deviation 50.6 H RDW Coeff of Ej 15.1 H Plt Count 150 MPV 10.7 Immature Gran % (Auto) 0.300 Neut % (Auto) 86.4 H Lymph % (Auto) 9.6 L Toombs % (Auto) 3.5 Eos % (Auto) 0.0 Baso % (Auto) 0.2 Absolute Neuts (auto) 5.8 Absolute Lymphs (auto) 0.64 L Nucleated RBC % 0 PT INR D-Dimer Quant (PE/DVT) 1.68 H* Specimen Type Sample Site pH Bicarbonate Actual Total CO2 Base Excess O2 Saturation O2 % ABG pCO2 ABG pO2 Ramon Test O2 Delivery Device Sodium 146 H Potassium 4.0 Chloride 108 H Carbon Dioxide 31.0 Anion Gap 7 BUN 39 H Creatinine 1.68 H Estim Creat Clear Calc 26.37 Est GFR (MDRD) Af Amer 51 L Est GFR (MDRD) Non-Af 42 L BUN/Creatinine Ratio 23.2 H Glucose 133 H Calcium 8.4 L Total Bilirubin Direct Bilirubin AST ALT Alkaline Phosphatase Lactate Dehydrogenase Troponin I 0.075 H B-Natriuretic Peptide Total Protein Albumin Globulin Albumin/Globulin Ratio Procalcitonin 11/02/20 11/02/20 11/02/20 11:00 11:00 11:46 WBC RBC Hgb Hct MCV MCH MCHC RDW Std Deviation RDW Coeff of Ej Plt Count MPV Immature Gran % (Auto) Neut % (Auto) Lymph % (Auto) Toombs % (Auto) Eos % (Auto) Baso % (Auto) Absolute Neuts (auto) Absolute Lymphs (auto) Nucleated RBC % PT INR D-Dimer Quant (PE/DVT) Specimen Type ART Sample Site L Radial pH 7.59 H Bicarbonate Actual 28.1 H Total CO2 29 Base Excess 7 H O2 Saturation 99 O2 % 60 ABG pCO2 29.1 L ABG pO2 99 Ramon Test Positive O2 Delivery Device BiPAP Sodium Potassium Chloride Carbon Dioxide Anion Gap BUN Creatinine Estim Creat Clear Calc Est GFR (MDRD) Af Amer Est GFR (MDRD) Non-Af BUN/Creatinine Ratio Glucose Calcium Total Bilirubin 0.40 Direct Bilirubin 0.12 AST 40 H ALT 17 Alkaline Phosphatase 100 Lactate Dehydrogenase 612 H Troponin I B-Natriuretic Peptide 809.9 H Total Protein 7.0 Albumin 2.8 L Globulin 4.2 Albumin/Globulin Ratio Procalcitonin 11/02/20 11/02/20 11/02/20 14:25 14:25 14:25 WBC RBC Hgb Hct MCV MCH MCHC RDW Std Deviation RDW Coeff of Ej Plt Count MPV Immature Gran % (Auto) Neut % (Auto) Lymph % (Auto) Toombs % (Auto) Eos % (Auto) Baso % (Auto) Absolute Neuts (auto) Absolute Lymphs (auto) Nucleated RBC % PT 41.9 H INR 4.4 H* D-Dimer Quant (PE/DVT) Specimen Type Sample Site pH Bicarbonate Actual Total CO2 Base Excess O2 Saturation O2 % ABG pCO2 ABG pO2 Ramon Test O2 Delivery Device Sodium Potassium Chloride Carbon Dioxide Anion Gap BUN Creatinine Estim Creat Clear Calc Est GFR (MDRD) Af Amer Est GFR (MDRD) Non-Af BUN/Creatinine Ratio Glucose Calcium Total Bilirubin Direct Bilirubin AST ALT Alkaline Phosphatase Lactate Dehydrogenase Troponin I 0.092 H B-Natriuretic Peptide Total Protein Albumin Globulin Albumin/Globulin Ratio Procalcitonin 5.87 H 11/02/20 11/03/20 11/03/20 17:10 04:35 04:35 WBC 4.2 L RBC 3.31 L Hgb 9.3 L Hct 29.3 L MCV 88.5 MCH 28.1 MCHC 31.7 L D RDW Std Deviation 49.1 H RDW Coeff of Ej 15.2 H Plt Count 134 L MPV 10.7 Immature Gran % (Auto) Neut % (Auto) Lymph % (Auto) Toombs % (Auto) Eos % (Auto) Baso % (Auto) Absolute Neuts (auto) Absolute Lymphs (auto) Nucleated RBC % PT INR D-Dimer Quant (PE/DVT) Specimen Type Sample Site pH Bicarbonate Actual Total CO2 Base Excess O2 Saturation O2 % ABG pCO2 ABG pO2 Ramon Test O2 Delivery Device Sodium 143 Potassium 3.7 Chloride 105 Carbon Dioxide 31.0 Anion Gap 7 BUN 39 H Creatinine 1.34 H Estim Creat Clear Calc 33.07 Est GFR (MDRD) Af Amer 66 Est GFR (MDRD) Non-Af 55 L BUN/Creatinine Ratio 29.1 H Glucose 109 H Calcium 7.7 L Total Bilirubin 0.50 Direct Bilirubin AST 42 H ALT 16 Alkaline Phosphatase 88 Lactate Dehydrogenase Troponin I 0.108 H B-Natriuretic Peptide Total Protein 5.9 L Albumin 2.3 L Globulin 3.6 Albumin/Globulin Ratio 0.6 L Procalcitonin 11/04/20 11/04/20 11/04/20 04:00 04:00 04:00 WBC 5.4 RBC 3.49 L Hgb 9.8 L Hct 30.1 L MCV 86.2 MCH 28.1 MCHC 32.6 RDW Std Deviation 48.3 H RDW Coeff of Ej 15.2 H Plt Count 137 L MPV 10.2 Immature Gran % (Auto) Neut % (Auto) Lymph % (Auto) Toombs % (Auto) Eos % (Auto) Baso % (Auto) Absolute Neuts (auto) Absolute Lymphs (auto) Nucleated RBC % PT 35.4 H INR 3.6 H* D-Dimer Quant (PE/DVT) Specimen Type Sample Site pH Bicarbonate Actual Total CO2 Base Excess O2 Saturation O2 % ABG pCO2 ABG pO2 Ramon Test O2 Delivery Device Sodium 142 Potassium 3.3 L Chloride 106 Carbon Dioxide 31.0 Anion Gap 5 BUN 51 H Creatinine 1.24 Estim Creat Clear Calc 35.73 Est GFR (MDRD) Af Amer 72 Est GFR (MDRD) Non-Af 60 BUN/Creatinine Ratio 41.1 H Glucose 126 H Calcium 7.6 L Total Bilirubin 0.60 Direct Bilirubin AST 34 ALT 14 L Alkaline Phosphatase 83 Lactate Dehydrogenase Troponin I B-Natriuretic Peptide Total Protein 5.5 L Albumin 2.2 L Globulin 3.3 Albumin/Globulin Ratio 0.7 L Procalcitonin Microbiology 11/02/20 11:27 Mucosa - Nose SARS-CoV-2 Antigen (Rapid) - Final SARS-CoV-2 (COVID 19) Medical Necessity - Tobacco Use Smoking Status: Former smoker Assessment/Plan All Active Problems (Last Reviewed 08/27/20 @ 01:[address] Naveed Rick MD) Abnormal cardiac enzyme level (Acute) Acute hypoxic respiratory failure (Acute) Acute bilateral COVID-19 pneumonia (Acute) RECOMMENDATIONS: 1. Remdesivir and Decadron per infectious disease 2. Wean oxygen as tolerated 3. Continue baseline diuretic therapy. Replete potassium as necessary 4. Recheck INR and reinitiate warfarin when in therapeutic range 5. Okay to discontinue baseline inhaler therapy 6. Continue current hypertensive regimen IMPRESSIONS: 1. Acute hypoxic respiratory failure secondary to COVID-19 pneumonia Patient with significant groundglass opacities bilaterally with positive Covid test. Patient does have an elevated BNP, but this may be secondary to renal dysfunction and right heart strain. Patient was significantly hypoxic on presentation. Decadron and remdesivir per infectious disease. Patient does have an elevated pro calcitonin, but no leukocytosis or fever. We will hold on empiric antibiotics for now. Infectious disease has been consulted. Continue to monitor renal and liver function given remdesivir. Wean oxygen as tolerated. Possibly transition to nasal cannula later today. We will hold off on diuretic therapy for now. 2. Chronic diastolic CHF/history of ascending aortic dissection status post repair/paroxysmal A. fib/hypertensive urgency Patient appears to be relatively stable at this time from a cardiac perspective. We will reinitiate baseline medications. Hydralazine as needed has been ordered. Add Norvasc. Patient would likely benefit from an element of diuretic therapy. Renal function appears to be at his baseline. Okay to continue with Coreg and amiodarone from my perspective. Patient does have an elevated INR, so dosing should be held for today. Anticipate reinitiation of Coumadin when INR is less than or equal to 2.5 3. CKD stage III/chronic anemia/hypothyroidism/advanced age/reported COPD Complicates care, management, recovery and prognosis. Did confirm patient is a full code. Renal function appears to be at baseline. Previous pulmonary function tests are not consistent with a diagnosis of COPD. Cannot exclude an element of asthma, but patient is on Decadron therapy and has no wheezing on exam. Okay to continue with other baseline medications. Inpatient E&M: [id number] [facility] L3
[2020-11-04] MEDS: Ramipril 10 MG Capsule PO (08:49)
[2020-11-04] MEDS: Iron Polysaccharide Complex 150 MG CAPSULE PO (08:49)
[2020-11-04] MEDS: Folic Acid 1 MG Tablet PO (08:49)
[2020-11-04] MEDS: Amiodarone 200 MG Tablet PO (08:50)
[2020-11-04] MEDS: Famotidine 20 MG Tablet PO (08:50)
[2020-11-04] MEDS: Carvedilol 25 MG Tablet PO ×2 (08:50→21:16)
[2020-11-04] MEDS: dexAMETHasone 4 MG Tablet 6 MG PO (08:50)
[2020-11-04] MEDS: Furosemide 40 MG Tablet PO (08:51)
[2020-11-04] MEDS: Clopidogrel Bisulfate 75 MG Tablet PO (08:51)
--- NOTE | 2020-11-04 10:06 | PCM.PROGNOTE ---
Patient Problems: Active and Suspected Problems (Last Reviewed 08/27/20 @ 01:[address] Naveed Rick MD) Abnormal cardiac enzyme level (Acute) Acute hypoxic respiratory failure (Acute) Acute bilateral COVID-19 pneumonia (Acute) Subjective: Chief complaint: Follow-up after admission for acute bilateral COVID-19 pneumonia and acute hypoxic respiratory failure. Patient seen and examined. No acute events overnight. He mentioned that his breathing is getting better very slowly. Remains on air Vo, tolerated very well. He is afebrile, blood pressure and heart rate are stable. - Physical Exam Vitals/I&O's: Vital Signs Temp Pulse Resp BP Pulse Ox 97.2 F L 87 21 H 146/66 H 93 11/04/20 04:00 11/04/20 07:21 11/04/20 07:21 11/04/20 04:00 11/04/20 10:03 Oxygen Flow Rate (L/min) 40 Oxygen Delivery Method Airvo Weight: 128 lb 11.999 oz Body Mass Index (BMI) 24.7 Intake and Output for Last 24 Hours 11/02/20 11/03/20 11/04/20 23:59 23:59 23:59 Intake Total 490 / 690 1470 / 1470 240 / 240 Output Total 450 / 650 1250 / 1450 450 / 450 Balance 40 / 40 220 / 20 -210 / -210 General: Alert, Oriented x3, Cooperative, No apparent distress HEENT: Atraumatic, PERRLA, EOMI, Normocephalic Oral: Moist Mucosa, No Gingival or Mucosal Lesions/ Ulcerations Neck: Supple, No JVD, Negative Carotid Bruits, Trachea Midline, Thyroid Normal Size and Texture Lungs: Clear to auscultation, Normal air movement, No rhonchi, No wheeze, No rales, Diminished Cardiovascular: Regular rate, Regular Rhythm, Normal S1, Normal S2, PMI Normal Abdomen: Bowel Sounds Present, Soft, Non Tender, Non-Distended, No Hepato-splenomegaly Extremities: No clubbing, No cyanosis, No edema Skin: No rashes, No breakdown Lymphatic: No Cervical, Supraclavicular, or Inguinal Adenopathy Neurological: Cranial nerves II-XII grossly intact, Motor Exam 5/5 strength throughout Psych/Mental Status: Normal Affect, Appropriate, Alert and oriented to time, place, person, mood and affect Microbiology Past 72 Hours 11/02/20 11:27 Mucosa - Nose SARS-CoV-2 Antigen (Rapid) - Final SARS-CoV-2 (COVID 19) Laboratory Results 11/04/20 04:00: WBC 5.4, RBC 3.49 L, Hgb 9.8 L, Hct 30.1 L, MCV 86.2, MCH 28.1, MCHC 32.6, RDW Std Deviation 48.3 H, RDW Coeff of Ej 15.2 H, Plt Count 137 L, MPV 10.2 11/04/20 04:00: Sodium 142, Potassium 3.3 L, Chloride 106, Carbon Dioxide 31.0, Anion Gap 5, BUN 51 H, Creatinine 1.24, Estim Creat Clear Calc 35.73, Est GFR (MDRD) Af Amer 72, Est GFR (MDRD) Non-Af 60, BUN/Creatinine Ratio 41.1 H, Glucose 126 H, Calcium 7.6 L, Total Bilirubin 0.60, AST 34, ALT 14 L, Alkaline Phosphatase 83, Total Protein 5.5 L, Albumin 2.2 L, Globulin 3.3, Albumin/Globulin Ratio 0.7 L 11/04/20 04:00: PT 35.4 H, INR 3.6 H* Current Medications Acetaminophen (Acetaminophen 325 Mg Tablet) 650 mg PO Q6H PRN PRN PRN Reason: Pain Score 1-10/Temp > 100.7 F Al Hydroxide/Mg Hydroxide (Mag Hydrox/Al Hydrox/Simeth 30 Ml Udc) 15 ml PO Q6H PRN PRN PRN Reason: Heartburn, indigestion Last Admin: 11/03/20 09:59 Dose: 15 ml Documented by: Albuterol Sulfate (Albuterol Sulfate 8 Gm Inhaler (60 Puffs)) 2 puff INHALATION Q4H PRN PRN PRN Reason: Shortness of breath, wheezing Amiodarone HCl (Amiodarone 200 Mg Tablet) 200 mg PO DAILY [facility] Last Admin: 11/04/20 08:50 Dose: 200 mg Documented by: Atorvastatin Calcium (Atorvastatin Calcium 20 Mg Tablet) 20 mg PO QHS [facility] Last Admin: 11/03/20 22:21 Dose: 20 mg Documented by: Carvedilol (Carvedilol 25 Mg Tablet) 25 mg PO BID [facility] Last Admin: 11/04/20 08:50 Dose: 25 mg Documented by: Clopidogrel Bisulfate (Clopidogrel Bisulfate 75 Mg Tablet) 75 mg PO DAILY [facility] Last Admin: 11/04/20 08:51 Dose: 75 mg Documented by: Dexamethasone (Dexamethasone 4 Mg Tablet) [facility] Stop: 11/11/20 08:01 Last Admin: 11/04/20 08:50 Dose: 6 mg Documented by: Famotidine (Famotidine 20 Mg Tablet) 20 mg PO DAILY [facility] Folic Acid (Folic Acid 1 Mg Tablet) [facility] Last Admin: 11/04/20 08:49 Dose: 1 mg Documented by: Furosemide (Furosemide 40 Mg Tablet) 40 mg PO DAILY [facility] Last Admin: 11/04/20 08:51 Dose: 40 mg Documented by: Hydralazine HCl (Hydralazine 20 Mg/Ml Vial) 10 mg IV Q4H PRN PRN PRN Reason: BLOOD PRESSURE ELEVATION Last Admin: 11/02/20 22:30 Dose: 10 mg Documented by: Remdesivir 100 mg/ Sodium (Chloride) 250 mls @ 125 mls/hr IV DAILY [facility] Stop: 11/06/20 11:59 Last Infusion: 11/03/20 13:00 Dose: Infused Documented by: Sodium Chloride () 250 mls @ 15 mls/hr IV .[id number] PRN PRN Reason: Saline Flush Sodium Chloride () 250 mls @ 15 mls/hr IV .[id number] PRN PRN Reason: Additional IVPB Infusion Levothyroxine Sodium (Levothyroxine 150 Mcg Tablet) 150 mcg PO DAILY@0600 [facility] Last Admin: 11/04/20 05:49 Dose: 150 mcg Documented by: Ondansetron HCl (Ondansetron 4 Mg/2 Ml Vial) 4 mg IV Q8H PRN PRN PRN Reason: NAUSEA/VOMITING Polysaccharide Iron Complex (Iron Polysaccharide Complex 150 Mg Capsule) [facility] Last Admin: 11/04/20 08:49 Dose: 150 mg Documented by: Ramipril (Ramipril 10 Mg Capsule) 10 mg PO DAILY [facility] Last Admin: 11/04/20 08:49 Dose: 10 mg Documented by: Senna/Docusate Sodium (Senna/Docusate Sodium 1 Tablet) 2 tablet PO BID PRN PRN PRN Reason: Constipation Sodium Chloride (0.9% Saline Lock 10 Ml Syringe) 10 - 40 ml IV UD PRN PRN Reason: SALINE FLUSH Last Admin: 11/04/20 04:49 Dose: 10 ml Documented by: Medical Necessity - Tobacco Use Smoking Status: Former smoker Assessment/Plan All Active Problems (Last Reviewed 08/27/20 @ 01:[address] Naveed Rick MD) Abnormal cardiac enzyme level (Acute) Acute hypoxic respiratory failure (Acute) Acute bilateral COVID-19 pneumonia (Acute) This is a 80 years old male patient presented to the emergency room because of shortness of breath, cough and weakness for the last 3 to 4 days, found to have extensive bilateral infiltrate on chest x-ray more prominent on the right lung and he tested positive for COVID-19 antigen, found to have acute bilateral COVID-19 pneumonia complicated by acute hypoxic respiratory failure and is being admitted for treatment. #1 acute bilateral COVID-19 pneumonia: on p.o Decadron, IV in the severe and subcu Lovenox twice daily. He has been stable on on airvo with FiO2 45 %, pulse ox has been around 93%. Symptoms continue to improve very slowly. Vital signs are stable, afebrile. Critical care and infectious disease are on the case. Plan to continue same treatment. #2 acute hypoxic respiratory failure: Secondary to #1. Normal, he does not use oxygen at home. Currently, he is on Airvo as above. #3 abnormal cardiac enzyme: Probably due to demand ischemia. EKG without acute ischemic changes. Patient remains without any chest pain. #4 stage III chronic kidney disease: Creatinine has been fluctuating anywhere between 1.2 to 1.7 mg/dL. Admission creatinine is 1.68, today's creatinine is 1.24, improved, at baseline. #5 paroxysmal atrial fibrillation: Heart rate stable, continue amiodarone and Coreg for rate control. INR is 3.6. Coumadin held. #6 CAD status post stents: EKG reviewed as above. continue Coreg, Altace, Crestor and Coumadin. #7 COPD: Currently, he is on BiPAP. He is on albuterol inhaler as needed. Plan as above. #8 chronic anemia: Due to anemia of chronic disease, baseline hemoglobin is been around 8 to 9 g/dL, admission hemoglobin is 10.1 g/dL, today's hemoglobin is 9.8 g/dL, stable at baseline. #9 chronic diastolic CHF: Stable, compensated. Continue Coreg and Altace, continue Lasix. #10 hypothyroidism: Continue levothyroxine. #11 history of ascending aortic dissection: Status post repair, stable, no acute issues. #12 CODE STATUS: Full code, discussed with the patient. #13 DVT prophylaxis: INR is 3.6. This note was generated with [employer] dictation software. It may contain incorrect words, spelling, and punctuation that were not noted in checking the note before signing. Inpatient E&M: 11660 [facility] L2
[2020-11-04] MEDS: 0.9% Normal Saline 1,000 ML 75 ML IV (13:49)
--- NOTE | 2020-11-04 16:54 | PCM.PN.ID ---
Patient Problems: Active and Suspected Problems (Last Reviewed 08/27/20 @ 01:[address] Naveed Rick MD) Abnormal cardiac enzyme level (Acute) Acute hypoxic respiratory failure (Acute) Acute bilateral COVID-19 pneumonia (Acute) Subjective: Feeling better, breathing improved, no fever - Physical Exam Vitals/I&O's: Vital Signs Temp Pulse Resp BP Pulse Ox 97.5 F L 72 16 155/57 H 94 11/04/20 10:00 11/04/20 15:25 11/04/20 10:00 11/04/20 10:00 11/04/20 15:44 Oxygen Flow Rate (L/min) 8 Oxygen Delivery Method Nasal Cannula Weight: 58.4 kg Body Mass Index (BMI) 24.7 Intake and Output for Last 24 Hours 11/02/20 11/03/20 11/04/20 23:59 23:59 23:59 Intake Total 490 / 690 1470 / 1470 730 / 730 Output Total 450 / 650 1250 / 1450 800 / 800 Balance 40 / 40 220 / 20 -70 / -70 General: Alert, Cooperative, No apparent distress Lungs: Clear to auscultation, Diminished Cardiovascular: Regular rate, Regular Rhythm Abdomen: Soft, Non Tender, Non-Distended Skin: No rashes Microbiology Past 72 Hours 11/02/20 11:27 Mucosa - Nose SARS-CoV-2 Antigen (Rapid) - Final SARS-CoV-2 (COVID 19) Laboratory Results 11/04/20 04:00: WBC 5.4, RBC 3.49 L, Hgb 9.8 L, Hct 30.1 L, MCV 86.2, MCH 28.1, MCHC 32.6, RDW Std Deviation 48.3 H, RDW Coeff of Ej 15.2 H, Plt Count 137 L, MPV 10.2 11/04/20 04:00: Sodium 142, Potassium 3.3 L, Chloride 106, Carbon Dioxide 31.0, Anion Gap 5, BUN 51 H, Creatinine 1.24, Estim Creat Clear Calc 35.73, Est GFR (MDRD) Af Amer 72, Est GFR (MDRD) Non-Af 60, BUN/Creatinine Ratio 41.1 H, Glucose 126 H, Calcium 7.6 L, Total Bilirubin 0.60, AST 34, ALT 14 L, Alkaline Phosphatase 83, Total Protein 5.5 L, Albumin 2.2 L, Globulin 3.3, Albumin/Globulin Ratio 0.7 L 11/04/20 04:00: PT 35.4 H, INR 3.6 H* Current Medications Acetaminophen (Acetaminophen 325 Mg Tablet) 650 mg PO Q6H PRN PRN PRN Reason: Pain Score 1-10/Temp > 100.7 F Al Hydroxide/Mg Hydroxide (Mag Hydrox/Al Hydrox/Simeth 30 Ml Udc) 15 ml PO Q6H PRN PRN PRN Reason: Heartburn, indigestion Last Admin: 11/03/20 09:59 Dose: 15 ml Documented by: Albuterol Sulfate (Albuterol Sulfate 8 Gm Inhaler (60 Puffs)) 2 puff INHALATION Q4H PRN PRN PRN Reason: Shortness of breath, wheezing Amiodarone HCl (Amiodarone 200 Mg Tablet) 200 mg PO DAILY [facility] Last Admin: 11/04/20 08:50 Dose: 200 mg Documented by: Atorvastatin Calcium (Atorvastatin Calcium 20 Mg Tablet) 20 mg PO QHS [facility] Last Admin: 11/03/20 22:21 Dose: 20 mg Documented by: Carvedilol (Carvedilol 25 Mg Tablet) 25 mg PO BID [facility] Last Admin: 11/04/20 08:50 Dose: 25 mg Documented by: Clopidogrel Bisulfate (Clopidogrel Bisulfate 75 Mg Tablet) 75 mg PO DAILY [facility] Last Admin: 11/04/20 08:51 Dose: 75 mg Documented by: Dexamethasone ([facility] Mg [facility]t) [facility]: 11/11/20 08:01 Last Admin: 11/04/20 08:50 Dose: 6 mg Documented by: Famotidine (Famotidine 20 Mg Tablet) 20 mg PO DAILY [facility] Folic Acid (Folic Acid 1 Mg Tablet) [facility] Last Admin: 11/04/20 08:49 Dose: 1 mg Documented by: Furosemide (Furosemide 40 Mg Tablet) 40 mg PO DAILY [facility] Last Admin: 11/04/20 08:51 Dose: 40 mg Documented by: Hydralazine HCl (Hydralazine 20 Mg/Ml Vial) 10 mg IV Q4H PRN PRN PRN Reason: BLOOD PRESSURE ELEVATION Last Admin: 11/02/20 22:30 Dose: 10 mg Documented by: Remdesivir 100 mg/ Sodium (Chloride) 250 mls @ 125 mls/hr IV DAILY [facility] Stop: 11/06/20 11:59 Last Infusion: 11/04/20 13:33 Dose: Infused Documented by: Sodium Chloride () 250 mls @ 15 mls/hr IV .[id number] PRN PRN Reason: Saline Flush Sodium Chloride () 250 mls @ 15 mls/hr IV .[id number] PRN PRN Reason: Additional IVPB Infusion Sodium Chloride () 1,000 mls @ 75 mls/hr IV .[id number] [facility] Stop: 11/05/20 03:04 Last Admin: 11/04/20 13:49 Dose: 75 mls/hr Documented by: Levothyroxine Sodium (Levothyroxine 150 Mcg Tablet) 150 mcg PO DAILY@0600 [facility] Last Admin: 11/04/20 05:49 Dose: 150 mcg Documented by: Ondansetron HCl (Ondansetron 4 Mg/2 Ml Vial) 4 mg IV Q8H PRN PRN PRN Reason: NAUSEA/VOMITING Polysaccharide Iron Complex (Iron Polysaccharide Complex 150 Mg Capsule) [facility] Last Admin: 11/04/20 08:49 Dose: 150 mg Documented by: Ramipril (Ramipril 10 Mg Capsule) 10 mg PO DAILY [facility] Last Admin: 11/04/20 08:49 Dose: 10 mg Documented by: Senna/Docusate Sodium (Senna/Docusate Sodium 1 Tablet) 2 tablet PO BID PRN PRN PRN Reason: Constipation Sodium Chloride (0.9% Saline Lock 10 Ml Syringe) 10 - 40 ml IV UD PRN PRN Reason: SALINE FLUSH Last Admin: 11/04/20 04:49 Dose: 10 ml Documented by: Medical Necessity - Tobacco Use Smoking Status: Former smoker Route of nutrition/ use of supplements: [] Nutritional Intake: [] IV Site: [] Mcdowell Catheter: [] - Assessment/Plan Antibiotics: [] Assessment/Plan: [] Active and Suspected Problems (Last Reviewed 08/27/20 @ 01:[address] Naveed Rick MD) Abnormal cardiac enzyme level (Acute) Acute hypoxic respiratory failure (Acute) Acute bilateral COVID-19 pneumonia (Acute) covid with hypoxia - sx started 10/29. Recommend quarantine and get tested. CT neg for PE. Elevated INR on coumadin on admit. ALT normal. Cont with po dex and remdesivir. D-dimer 1.7. Improving. Plan on 10 days of dex total at discharge, quarantine for 20 days starting 10/29. Will follow
[2020-11-04] MEDS: Atorvastatin Calcium 20 MG Tablet PO (21:16)
[2020-11-05] VITALS (18 sets, daily range): BP systolic 125–146; BP diastolic 56–70; PULSE 66–85; RESP 12–23; TEMP 35.7–36.6; O2SAT 90–97
[2020-11-05 06:26] LABS: Hematocrit 30.4 % (40-54); Hemoglobin 9.4 g/dL (13.0-16.5); Mean Corp Hgb Conc 30.9 g/dL (32-36); Mean Corpuscular Hgb 27.5 pg (27.0-32.0); Mean Corpuscular Volume 88.9 fL (80-94); Mean Platelet Vol. 10.7 fl (6.2-12.0); Platelet Count 143 K/mm3 (150-450); RBC Distribution Width CV 15.3 % (11.6-14.6); RBC Distribution Width SD 50.4 fl (35.1-43.9); Red Blood Count 3.42 M/mm3 (4.6-6.2); White Blood Count 6.9 K/mm3 (4.4-11.0)
[2020-11-05 06:37] LABS: Prothrombin Time (Protime)PT. 30.6 SECONDS (11.7-14.9)
[2020-11-05] MEDS: Levothyroxine 150 MCG Tablet PO (06:46)
[2020-11-05 06:49] LABS: ALB/GLOB Ratio 0.7 RATIO (0.9-2.4); AST(SGOT) 29 U/L (15-37); Alanine Aminotransfer ALT/SGPT 15 U/L (16-61); Albumin, Serum 2.1 g/dL (3.2-5.0); Alkaline Phosphatase 86 U/L (45-117); Anion Gap 5 (5-15); BUN 50 mg/dL (7-18); BUN/Creat Ratio 43.5 RATIO (10-20); Calcium,Total 7.7 mg/dL (8.5-10.1); Chloride 108 mmol/L (98-107); Creatinine, Serum 1.15 mg/dL (0.70-1.30); EST Glomerular Filtration Rate 65 mL/min (>60); Est Glom Filt Rate - Afr Amer 79 mL/min (>60); Estimated Creatinine Clearance 38.53 ml/min; Globulin 3.2 g/dL (2.2-4.2); Glucose 118 mg/dL (74-106); Potassium 3.9 mmol/L (3.5-5.1); Protein, Total 5.3 g/dL (6.4-8.2); Sodium Level 143 mmol/L (136-145)
--- NOTE | 2020-11-05 07:05 | PN_ITS ---
Patient Problems: Active and Suspected Problems (Last Reviewed 08/27/20 @ 01:[address] Naveed Rick MD) Abnormal cardiac enzyme level (Acute) Acute hypoxic respiratory failure (Acute) Acute bilateral COVID-19 pneumonia (Acute) Subjective: Patient did okay overnight. Patient denies any current chest pain, abdominal pain, nausea or vomiting. Patient overall feels subjectively improved compared to previous. Patient has not required any Airvo, but did use BiPAP with sleep. Patient was able to be weaned to nasal cannula oxygen. - Physical Exam Vitals/I&O's: Vital Signs Temp Pulse Resp BP Pulse Ox 36.1 C L 84 20 H 139/56 H 90 11/05/20 03:54 11/05/20 06:43 11/05/20 06:43 11/05/20 03:54 11/05/20 06:43 Oxygen Flow Rate (L/min) 40 Oxygen Delivery Method Airvo Weight: 59.2 kg Body Mass Index (BMI) 24.7 Intake and Output for Last 24 Hours 11/03/20 11/04/20 11/05/20 23:59 23:59 23:59 Intake Total 1470 / 1470 850 / 970 980 / 980 Output Total 1250 / 1450 980 / 1180 400 / 400 Balance 220 / 20 -130 / -210 580 / 580 General: Alert, Oriented x3, Cooperative, No apparent distress, - - No conversational dyspnea HEENT: Atraumatic, PERRLA, EOMI, Normocephalic Oral: Moist Mucosa, No Gingival or Mucosal Lesions/ Ulcerations Neck: Supple, No JVD, No Nodes, Trachea Midline Lungs: No rhonchi, No wheeze, No rales, Diminished Cardiovascular: Normal S1, Normal S2, No murmurs, Irregular Rate, No rub noted, No Gallop Abdomen: Bowel Sounds Present, Soft, Non Tender, Non-Distended Extremities: No clubbing, No cyanosis, No edema Skin: No rashes, No breakdown Musculoskeletal: No Tenderness to Palpation of Joints or Extremities Lymphatic: No Cervical, Supraclavicular, or Inguinal Adenopathy Neurological: Cranial nerves II-XII grossly intact, Neuro grossly intact, Motor Exam 5/5 strength throughout Psych/Mental Status: Alert and oriented to time, place, person, mood and affect Microbiology Past 72 Hours 11/02/20 11:27 Mucosa - Nose SARS-CoV-2 Antigen (Rapid) - Final SARS-CoV-2 (COVID 19) Laboratory Results 11/05/20 05:25: WBC 6.9, RBC 3.42 L, Hgb 9.4 L, Hct 30.4 L, MCV 88.9, MCH 27.5, MCHC 30.9 L D, RDW Std Deviation 50.4 H, RDW Coeff of Ej 15.3 H, Plt Count 143 L, MPV 10.7 11/05/20 05:25: Sodium 143, Potassium 3.9, Chloride 108 H, Carbon Dioxide 30.0, Anion Gap 5, BUN 50 H, Creatinine 1.15, Estim Creat Clear Calc 38.53, Est GFR (MDRD) Af Amer 79, Est GFR (MDRD) Non-Af 65, BUN/Creatinine Ratio 43.5 H, Glucose 118 H, Calcium 7.7 L, Total Bilirubin 0.90, AST 29, ALT 15 L, Alkaline Phosphatase 86, Total Protein 5.3 L, Albumin 2.1 L, Globulin 3.2, Albumin/Globulin Ratio 0.7 L 11/05/20 05:25: PT 30.6 H, INR 3.0 Current Medications Acetaminophen (Acetaminophen 325 Mg Tablet) 650 mg PO Q6H PRN PRN PRN Reason: Pain Score 1-10/Temp > 100.7 F Al Hydroxide/Mg Hydroxide (Mag Hydrox/Al Hydrox/Simeth 30 Ml Udc) 15 ml PO Q6H PRN PRN PRN Reason: Heartburn, indigestion Last Admin: 11/03/20 09:59 Dose: 15 ml Documented by: Albuterol Sulfate (Albuterol Sulfate 8 Gm Inhaler (60 Puffs)) 2 puff INHALATION Q4H PRN PRN PRN Reason: Shortness of breath, wheezing Amiodarone HCl (Amiodarone 200 Mg Tablet) 200 mg PO DAILY [facility] Last Admin: 11/04/20 08:50 Dose: 200 mg Documented by: Atorvastatin Calcium (Atorvastatin Calcium 20 Mg Tablet) 20 mg PO QHS [facility] Last Admin: 11/04/20 21:16 Dose: 20 mg Documented by: Carvedilol (Carvedilol 25 Mg Tablet) 25 mg PO BID [facility] Last Admin: 11/04/20 21:16 Dose: 25 mg Documented by: Clopidogrel Bisulfate (Clopidogrel Bisulfate 75 Mg Tablet) 75 mg PO DAILY [facility] Last Admin: 11/04/20 08:51 Dose: 75 mg Documented by: [facility] ([facility] Mg [facility] Stop: 11/11/20 08:01 Last Admin: 11/04/20 08:50 Dose: 6 mg Documented by: Famotidine (Famotidine 20 Mg Tablet) 20 mg PO DAILY [facility] Folic Acid (Folic Acid 1 Mg Tablet) [facility] Last Admin: 11/04/20 08:49 Dose: 1 mg Documented by: Furosemide (Furosemide 40 Mg Tablet) 40 mg PO DAILY [facility] Last Admin: 11/04/20 08:51 Dose: 40 mg Documented by: Hydralazine HCl (Hydralazine 20 Mg/Ml Vial) 10 mg IV Q4H PRN PRN PRN Reason: BLOOD PRESSURE ELEVATION Last Admin: 11/02/20 22:30 Dose: 10 mg Documented by: Remdesivir 100 mg/ Sodium (Chloride) 250 mls @ 125 mls/hr IV DAILY [facility] Stop: 11/06/20 11:59 Last Infusion: 11/04/20 13:33 Dose: Infused Documented by: Sodium Chloride () 250 mls @ 15 mls/hr IV .[id number] PRN PRN Reason: Saline Flush Sodium Chloride () 250 mls @ 15 mls/hr IV .[id number] PRN PRN Reason: Additional IVPB Infusion Levothyroxine Sodium (Levothyroxine 150 Mcg Tablet) 150 mcg PO DAILY@0600 [facility] Last Admin: 11/05/20 06:46 Dose: 150 mcg Documented by: Ondansetron HCl (Ondansetron 4 Mg/2 Ml Vial) 4 mg IV Q8H PRN PRN PRN Reason: NAUSEA/VOMITING Polysaccharide Iron Complex (Iron Polysaccharide Complex 150 [facility]apsule) [facility] Last Admin: 11/04/20 08:49 Dose: 150 mg Documented by: Ramipril (Ramipril 10 Mg Capsule) 10 mg PO DAILY [facility] Last Admin: 11/04/20 08:49 Dose: 10 mg Documented by: Senna/Docusate Sodium (Senna/Docusate Sodium 1 Tablet) 2 tablet PO BID PRN PRN PRN Reason: Constipation Sodium Chloride (0.9% Saline Lock 10 Ml Syringe) 10 - 40 ml IV UD PRN PRN Reason: SALINE FLUSH Last Admin: 11/04/20 04:49 Dose: 10 ml Documented by: Medical Necessity - Tobacco Use Smoking Status: Former smoker Assessment/Plan All Active Problems (Last Reviewed 08/27/20 @ 01:[address] Naveed Rick MD) Abnormal cardiac enzyme level (Acute) Acute hypoxic respiratory failure (Acute) Acute bilateral COVID-19 pneumonia (Acute) RECOMMENDATIONS: 1. Remdesivir and Decadron per infectious disease 2. Wean oxygen as tolerated 3. Continue baseline diuretic therapy. Replete potassium as necessary 4. Recheck INR daily. Likely okay to give Coumadin today. 5. Continue current hypertensive regimen IMPRESSIONS: 1. Acute hypoxic respiratory failure secondary to COVID-19 pneumonia Patient with significant groundglass opacities bilaterally with positive Covid test. Patient does have an elevated BNP, but this may be secondary to renal dysfunction and right heart strain. Patient was significantly hypoxic on presentation. Decadron and remdesivir per infectious disease. Patient does have an elevated pro calcitonin, but no leukocytosis or fever. We will hold on empiric antibiotics for now. Infectious disease has been consulted. Continue to monitor renal and liver function given remdesivir. Wean oxygen as tolerated. Continue nasal cannula later today. We will hold off on diuretic therapy for now. 2. Chronic diastolic CHF/history of ascending aortic dissection status post repair/paroxysmal A. fib/hypertensive urgency Patient appears to be relatively stable at this time from a cardiac perspective. We will reinitiate baseline medications. Hydralazine as needed has been ordered. Add Norvasc. Patient would likely benefit from an element of diuretic therapy. Renal function appears to be at his baseline. Okay to continue with Coreg and amiodarone from my perspective. Patient does have an elevated INR, so dosing should be held for today. Likely okay to give a low- dose of Coumadin today, but defer to hospitalist 3. CKD stage III/chronic anemia/hypothyroidism/advanced age/reported COPD Complicates care, management, recovery and prognosis. Did confirm patient is a full code. Renal function appears to be at baseline. Previous pulmonary function tests are not consistent with a diagnosis of COPD. Cannot exclude an element of asthma, but patient is on Decadron therapy and has no wheezing on exam. Okay to continue with other baseline medications. Inpatient E&M: 17742 Subs Hosp L2
[2020-11-05] MEDS: Iron Polysaccharide Complex 150 MG CAPSULE PO (08:35)
[2020-11-05] MEDS: dexAMETHasone 4 MG Tablet 6 MG PO (08:35)
[2020-11-05] MEDS: Clopidogrel Bisulfate 75 MG Tablet PO (08:36)
[2020-11-05] MEDS: Carvedilol 25 MG Tablet PO ×2 (08:36→20:28)
[2020-11-05] MEDS: Furosemide 40 MG Tablet PO (08:36)
[2020-11-05] MEDS: Famotidine 20 MG Tablet PO (08:36)
[2020-11-05] MEDS: Folic Acid 1 MG Tablet PO (08:37)
[2020-11-05] MEDS: Ramipril 10 MG Capsule PO (08:37)
[2020-11-05] MEDS: Amiodarone 200 MG Tablet PO (08:37)
--- NOTE | 2020-11-05 09:12 | PN_ITS ---
Patient Problems: Active and Suspected Problems (Last Reviewed 08/27/20 @ 01:[address] Naveed Rick MD) Abnormal cardiac enzyme level (Acute) Acute hypoxic respiratory failure (Acute) Acute bilateral COVID-19 pneumonia (Acute) Subjective: Chief complaint: Follow-up after admission for acute bilateral COVID-19 pneumonia and acute hypoxic respiratory failure. Patient seen and examined. No acute events overnight. Today, is feeling better, no significant shortness of breath. Remains on airVo with FiO2 of 40%. He is afebrile, other vital signs are stable. - Physical Exam Vitals/I&O's: Vital Signs Temp Pulse Resp BP Pulse Ox 97 F L 84 20 H 139/56 H 90 11/05/20 03:54 11/05/20 06:43 11/05/20 06:43 11/05/20 03:54 11/05/20 06:43 Oxygen Flow Rate (L/min) 40 Oxygen Delivery Method Airvo Weight: 130 lb 8.218 oz Body Mass Index (BMI) 24.7 Intake and Output for Last 24 Hours 11/03/20 11/04/20 11/05/20 23:59 23:59 23:59 Intake Total 1470 / 1470 850 / 970 980 / 980 Output Total 1250 / 1450 980 / 1180 400 / 400 Balance 220 / 20 -130 / -210 580 / 580 General: Alert, Cooperative, No apparent distress, Well nourished HEENT: Atraumatic, PERRLA, EOMI, Normocephalic Oral: Moist Mucosa, No Gingival or Mucosal Lesions/ Ulcerations Neck: Supple, No JVD, Negative Carotid Bruits, Trachea Midline, Thyroid Normal Size and Texture Lungs: Clear to auscultation, Normal air movement, No rhonchi, No wheeze, No rales, Diminished Cardiovascular: Regular rate, Regular Rhythm, Normal S1, Normal S2, PMI Normal Abdomen: Bowel Sounds Present, Soft, Non Tender, Non-Distended, No Hepato- splenomegaly Extremities: No clubbing, No cyanosis, No edema Skin: No rashes, No breakdown Lymphatic: No Cervical, Supraclavicular, or Inguinal Adenopathy Neurological: Cranial nerves II-XII grossly intact, Neuro grossly intact Psych/Mental Status: Normal Affect, Appropriate, Alert and oriented to time, place, person, mood and affect Microbiology Past 72 Hours 11/02/20 11:27 Mucosa - Nose SARS-CoV-2 Antigen (Rapid) - Final SARS-CoV-2 (COVID 19) Laboratory Results 11/05/20 05:25: WBC 6.9, RBC 3.42 L, Hgb 9.4 L, Hct 30.4 L, MCV 88.9, MCH 27.5, MCHC 30.9 L D, RDW Std Deviation 50.4 H, RDW Coeff of Ej 15.3 H, Plt Count 143 L, MPV 10.7 11/05/20 05:25: Sodium 143, Potassium 3.9, Chloride 108 H, Carbon Dioxide 30.0, Anion Gap 5, BUN 50 H, Creatinine 1.15, Estim Creat Clear Calc 38.53, Est GFR (MDRD) Af Amer 79, Est GFR (MDRD) Non-Af 65, BUN/Creatinine Ratio 43.5 H, Glucose 118 H, Calcium 7.7 L, Total Bilirubin 0.90, AST 29, ALT 15 L, Alkaline Phosphatase 86, Total Protein 5.3 L, Albumin 2.1 L, Globulin 3.2, Albumin/Globulin Ratio 0.7 L 11/05/20 05:25: PT 30.6 H, INR 3.0 Current Medications Acetaminophen (Acetaminophen 325 Mg Tablet) 650 mg PO Q6H PRN PRN PRN Reason: Pain Score 1-10/Temp > 100.7 F Al Hydroxide/Mg Hydroxide (Mag Hydrox/Al Hydrox/Simeth 30 Ml Udc) 15 ml PO Q6H PRN PRN PRN Reason: Heartburn, indigestion Last Admin: 11/03/20 09:59 Dose: 15 ml Documented by: Albuterol Sulfate (Albuterol Sulfate 8 Gm Inhaler (60 Puffs)) 2 puff INHALATION Q4H PRN PRN PRN Reason: Shortness of breath, wheezing Amiodarone HCl (Amiodarone 200 Mg Tablet) 200 mg PO DAILY [facility] Last Admin: 11/05/20 08:37 Dose: 200 mg Documented by: Atorvastatin Calcium (Atorvastatin Calcium 20 Mg Tablet) 20 mg PO QHS [facility] Last Admin: 11/04/20 21:16 Dose: 20 mg Documented by: Carvedilol (Carvedilol 25 Mg Tablet) 25 mg PO BID [facility] Last Admin: 11/05/20 08:36 Dose: 25 mg Documented by: Clopidogrel Bisulfate (Clopidogrel Bisulfate 75 Mg Tablet) 75 mg PO DAILY [facility] Last Admin: 11/05/20 08:36 Dose: 75 mg Documented by: Dexamethasone (D[facility] 4 Mg Tablet) [facility] Stop: 11/11/20 08:01 Last Admin: 11/05/20 08:35 Dose: 6 mg Documented by: Famotidine (Famotidine 20 Mg Tablet) 20 mg PO DAILY [facility] Last Admin: 11/05/20 08:36 Dose: 20 mg Documented by: Folic Acid (Folic Acid 1 Mg Tablet) [facility] Last Admin: 11/05/20 08:37 Dose: 1 mg Documented by: Furosemide (Furosemide 40 Mg Tablet) 40 mg PO DAILY [facility] Last Admin: 11/05/20 08:36 Dose: 40 mg Documented by: Hydralazine HCl (Hydralazine 20 Mg/Ml Vial) 10 mg IV Q4H PRN PRN PRN Reason: BLOOD PRESSURE ELEVATION Last Admin: 11/02/20 22:30 Dose: 10 mg Documented by: Remdesivir 100 mg/ Sodium (Chloride) 250 mls @ 125 mls/hr IV DAILY [facility] Stop: 11/06/20 11:59 Last Infusion: 11/04/20 13:33 Dose: Infused Documented by: Sodium Chloride () 250 mls @ 15 mls/hr IV .[id number] PRN PRN Reason: Saline Flush Sodium Chloride () 250 mls @ 15 mls/hr IV .[id number] PRN PRN Reason: Additional IVPB Infusion Levothyroxine Sodium (Levothyroxine 150 Mcg Tablet) 150 mcg PO DAILY@0600 [facility] Last Admin: 11/05/20 06:46 Dose: 150 mcg Documented by: Ondansetron HCl (Ondansetron 4 Mg/2 Ml Vial) 4 mg IV Q8H PRN PRN PRN Reason: NAUSEA/VOMITING Polysaccharide Iron Complex (Iron Polysaccharide Complex 150 Mg Capsule) [facility] Last Admin: 11/05/20 08:35 Dose: 150 mg Documented by: Ramipril (Ramipril 10 Mg Capsule) 10 mg PO DAILY [facility] Last Admin: 11/05/20 08:37 Dose: 10 mg Documented by: Senna/Docusate Sodium (Senna/Docusate Sodium 1 Tablet) 2 tablet PO BID PRN PRN PRN Reason: Constipation Sodium Chloride (0.9% Saline Lock 10 Ml Syringe) 10 - 40 ml IV UD PRN PRN Reason: SALINE FLUSH Last Admin: 11/04/20 04:49 Dose: 10 ml Documented by: Medical Necessity - Tobacco Use Smoking Status: Former smoker Assessment/Plan All Active Problems (Last Reviewed 08/27/20 @ 01:[address] Naveed Rick MD) Abnormal cardiac enzyme level (Acute) Acute hypoxic respiratory failure (Acute) Acute bilateral COVID-19 pneumonia (Acute) This is a 80 years old male patient presented to the emergency room because of shortness of breath, cough and weakness for the last 3 to 4 days, found to have extensive bilateral infiltrate on chest x-ray more prominent on the right lung and he tested positive for COVID-19 antigen, found to have acute bilateral COVID-19 pneumonia complicated by acute hypoxic respiratory failure and is being admitted for treatment. #1 acute bilateral COVID-19 pneumonia: Remained on p.o Decadron, IV in the severe and subcu Lovenox twice daily. He has been stable on on airvo with FiO2 40 % today, pulse ox has been around 90%. Symptoms continue to improve very slowly. Vital signs are stable, afebrile. Critical care and infectious disease are on the case. Plan to continue same treatment. #2 acute hypoxic respiratory failure: Secondary to #1. Normal, he does not use oxygen at home. Currently, he is on Airvo as above. #3 abnormal cardiac enzyme: Probably due to demand ischemia. EKG without acute ischemic changes. Patient remains without any chest pain. #4 stage III chronic kidney disease: Creatinine has been fluctuating anywhere between 1.2 to 1.7 mg/dL. Admission creatinine is 1.68, today's creatinine is 1.15, improved.. #5 paroxysmal atrial fibrillation: Heart rate stable, continue amiodarone and Coreg for rate control. INR is 3. Plan to resume Coumadin tonight. #6 CAD status post stents: EKG reviewed as above. continue Coreg, Altace, Crestor and Coumadin. #7 COPD: Currently, he is on BiPAP. He is on albuterol inhaler as needed. Plan as above. #8 chronic anemia: Due to anemia of chronic disease, baseline hemoglobin is been around 8 to 9 g/dL, admission hemoglobin is 10.1 g/dL, today's hemoglobin is 9.4 g/dL, stable at baseline. #9 chronic diastolic CHF: Stable, compensated. Continue Coreg and Altace, continue Lasix. #10 hypothyroidism: Continue levothyroxine. #11 history of ascending aortic dissection: Status post repair, stable, no acute issues. #12 CODE STATUS: Full code, discussed with the patient. #13 DVT prophylaxis: INR is 3. This note was generated with [employer] dictation software. It may contain incorrect words, spelling, and punctuation that were not noted in checking the note before signing. Inpatient E&M: 40724 Subs Hosp L2
[2020-11-05] MEDS: 0.9% Saline Lock 10 ML Syringe IV (11:33)
[2020-11-05] MEDS: Atorvastatin Calcium 20 MG Tablet PO (20:27)
[2020-11-06] VITALS (18 sets, daily range): BP systolic 131–163; BP diastolic 56–78; PULSE 66–85; RESP 12–25; TEMP 36.4–36.6; O2SAT 92–97
[2020-11-06] MEDS: Levothyroxine 150 MCG Tablet PO (04:52)
[2020-11-06 05:28] LABS: Hematocrit 30.4 % (40-54); Hemoglobin 9.4 g/dL (13.0-16.5); Mean Corp Hgb Conc 30.9 g/dL (32-36); Mean Corpuscular Hgb 27.3 pg (27.0-32.0); Mean Corpuscular Volume 88.4 fL (80-94); Platelet Count 148 K/mm3 (150-450); RBC Distribution Width CV 15.1 % (11.6-14.6); Red Blood Count 3.44 M/mm3 (4.6-6.2); White Blood Count 7.8 K/mm3 (4.4-11.0)
[2020-11-06 05:39] LABS: International Normalized Ratio 2.8; Prothrombin Time (Protime)PT. 29.5 SECONDS (11.7-14.9)
[2020-11-06 05:51] LABS: ALB/GLOB Ratio 0.7 RATIO (0.9-2.4); AST(SGOT) 23 U/L (15-37); Alanine Aminotransfer ALT/SGPT 13 U/L (16-61); Albumin, Serum 2.1 g/dL (3.2-5.0); Alkaline Phosphatase 92 U/L (45-117); Anion Gap 5 (5-15); BUN 53 mg/dL (7-18); BUN/Creat Ratio 49.5 RATIO (10-20); Calcium,Total 7.6 mg/dL (8.5-10.1); Chloride 106 mmol/L (98-107); Creatinine, Serum 1.07 mg/dL (0.70-1.30); EST Glomerular Filtration Rate 71 mL/min (>60); Est Glom Filt Rate - Afr Amer 86 mL/min (>60); Estimated Creatinine Clearance 41.41 ml/min; Globulin 3.1 g/dL (2.2-4.2); Glucose 127 mg/dL (74-106); Potassium 3.6 mmol/L (3.5-5.1); Protein, Total 5.2 g/dL (6.4-8.2); Sodium Level 140 mmol/L (136-145)
--- NOTE | 2020-11-06 07:39 | PN_ITS ---
Patient Problems: Active and Suspected Problems (Last Reviewed 08/27/20 @ 01:[address] Naveed Rick MD) Abnormal cardiac enzyme level (Acute) Acute hypoxic respiratory failure (Acute) Acute bilateral COVID-19 pneumonia (Acute) Subjective: Patient did well overnight. Patient did use BiPAP therapy, but feels that it was probably not necessary as he felt comfortable on nasal cannula before going to sleep. Patient denies any chest pain, abdominal pain, nausea or vomiting. - Physical Exam Vitals/I&O's: Vital Signs Temp Pulse Resp BP Pulse Ox 36.6 C 67 18 142/77 H 94 11/06/20 04:55 11/06/20 05:06 11/06/20 05:06 11/06/20 04:55 11/06/20 05:06 Oxygen Flow Rate (L/min) 40 Oxygen Delivery Method Bi-pap Weight: 59.477 kg Body Mass Index (BMI) 24.7 Intake and Output for Last 24 Hours 11/04/20 11/05/20 11/06/20 23:59 23:59 23:59 Intake Total 850 / 970 1430 / 1430 Output Total 980 / 1180 1000 / 1000 250 / 250 Balance -130 / -210 430 / 430 -250 / -250 General: Alert, Oriented x3, Cooperative, No apparent distress, - - No conversational dyspnea. HEENT: Atraumatic, PERRLA, EOMI, Normocephalic, - - No scleral icterus or injection noted Oral: Moist Mucosa, No Gingival or Mucosal Lesions/ Ulcerations Neck: Supple, No JVD, No Nodes, Trachea Midline Lungs: No rhonchi, No wheeze, No rales, Diminished, - - Symmetric expansion Cardiovascular: Regular rate, Regular Rhythm, Normal S1, Normal S2, No murmurs, No rub noted, No Gallop Abdomen: Bowel Sounds Present, Soft, Non Tender, Non-Distended Extremities: No clubbing, No cyanosis Skin: No rashes, No breakdown Musculoskeletal: No Tenderness to Palpation of Joints or Extremities Lymphatic: No Cervical, Supraclavicular, or Inguinal Adenopathy Neurological: Cranial nerves II-XII grossly intact, Neuro grossly intact Psych/Mental Status: Alert and oriented to time, place, person, mood and affect Laboratory Results 11/06/20 04:26: WBC 7.8, RBC 3.44 L, Hgb 9.4 L, Hct 30.4 L, MCV 88.4, MCH 27.3, MCHC 30.9 L, RDW Std Deviation 49.0 H, RDW Coeff of Ej 15.1 H, Plt Count 148 L, MPV 11.0 11/06/20 04:26: Sodium 140, Potassium 3.6, Chloride 106, Carbon Dioxide 29.0, Anion Gap 5, BUN 53 H, Creatinine 1.07, Estim Creat Clear Calc 41.41, Est GFR (MDRD) Af Amer 86, Est GFR (MDRD) Non-Af 71, BUN/Creatinine Ratio 49.5 H, Glucose 127 H, Calcium 7.6 L, Total Bilirubin 0.80, AST 23, ALT 13 L, Alkaline Phosphatase 92, Total Protein 5.2 L, Albumin 2.1 L, Globulin 3.1, Albumin/Globulin Ratio 0.7 L 11/06/20 04:26: PT 29.5 H, INR 2.8 Current Medications Acetaminophen (Acetaminophen 325 Mg Tablet) 650 mg PO Q6H PRN PRN PRN Reason: Pain Score 1-10/Temp > 100.7 F Al Hydroxide/Mg Hydroxide (Mag Hydrox/Al Hydrox/Simeth 30 Ml Udc) 15 ml PO Q6H PRN PRN PRN Reason: Heartburn, indigestion Last Admin: 11/03/20 09:59 Dose: 15 ml Documented by: Albuterol Sulfate (Albuterol Sulfate 8 Gm Inhaler (60 Puffs)) 2 puff INHALATION Q4H PRN PRN PRN Reason: Shortness of breath, wheezing Amiodarone HCl (Amiodarone 200 Mg Tablet) 200 mg PO DAILY [facility] Last Admin: 11/05/20 08:37 Dose: 200 mg Documented by: Atorvastatin Calcium (Atorvastatin Calcium 20 Mg Tablet) 20 mg PO QHS [facility] Last Admin: 11/05/20 20:27 Dose: 20 mg Documented by: Carvedilol (Carvedilol 25 Mg Tablet) 25 mg PO BID [facility] Last Admin: 11/05/20 20:28 Dose: 25 mg Documented by: Clopidogrel Bisulfate (Clopidogrel Bisulfate 75 Mg Tablet) 75 mg PO DAILY [facility] Last Admin: 11/05/20 08:36 Dose: 75 mg Documented by: Dexamethasone (Dex[facility] 4 Mg Tablet) [facility] Stop: 11/11/20 08:01 Last Admin: 11/05/20 08:35 Dose: 6 mg Documented by: Famotidine (Famotidine 20 Mg Tablet) 20 mg PO DAILY [facility] Last Admin: 11/05/20 08:36 Dose: 20 mg Documented by: Folic Acid (Folic Acid 1 Mg Tablet) [facility] Last Admin: 11/05/20 08:37 Dose: 1 mg Documented by: Furosemide (Furosemide 40 Mg Tablet) 40 mg PO DAILY [facility] Last Admin: 11/05/20 08:36 Dose: 40 mg Documented by: Hydralazine HCl (Hydralazine 20 Mg/Ml Vial) 10 mg IV Q4H PRN PRN PRN Reason: BLOOD PRESSURE ELEVATION Last Admin: 11/02/20 22:30 Dose: 10 mg Documented by: Remdesivir 100 mg/ Sodium (Chloride) 250 mls @ 125 mls/hr IV DAILY [facility] Stop: 11/06/20 11:59 Last Infusion: 11/05/20 13:33 Dose: Infused Documented by: Sodium Chloride () 250 mls @ 15 mls/hr IV .[id number] PRN PRN Reason: Saline Flush Sodium Chloride () 250 mls @ 15 mls/hr IV .[id number] PRN PRN Reason: Additional IVPB Infusion Levothyroxine Sodium (Levothyroxine 150 Mcg Tablet) 150 mcg PO DAILY@0600 [facility] Last Admin: 11/06/20 04:52 Dose: 150 mcg Documented by: Ondansetron HCl (Ondansetron 4 Mg/2 Ml Vial) 4 mg IV Q8H PRN PRN PRN Reason: NAUSEA/VOMITING Polysaccharide Iron Complex (Iron Polysaccharide Complex 150 Mg Capsule) [facility] Last Admin: 11/05/20 08:35 Dose: 150 mg Documented by: Ramipril (Ramipril 10 Mg Capsule) 10 mg PO DAILY [facility] Last Admin: 11/05/20 08:37 Dose: 10 mg Documented by: Senna/Docusate Sodium (Senna/Docusate Sodium 1 Tablet) 2 tablet PO BID PRN PRN PRN Reason: Constipation Sodium Chloride (0.9% Saline Lock 10 Ml Syringe) 10 - 40 ml IV UD PRN PRN Reason: SALINE FLUSH Last Admin: 01/21/21 11:33 Dose: 20 ml Documented by: Medical Necessity - Tobacco Use Smoking Status: Former smoker Assessment/Plan All Active Problems (Last Reviewed 08/27/20 @ 01:[address] Naveed Rick MD) Abnormal cardiac enzyme level (Acute) Acute hypoxic respiratory failure (Acute) Acute bilateral COVID-19 pneumonia (Acute) RECOMMENDATIONS: 1. Remdesivir and Decadron per infectious disease 2. Wean oxygen as tolerated. Okay to discontinue BiPAP overnight. Discontinue Airvo tomorrow if able to tolerate nasal cannula for 24 hours 3. Possibly reinitiate diuretic therapy tomorrow 4. Recheck INR daily. Likely okay to give low-dose Coumadin today. 5. Continue current hypertensive regimen IMPRESSIONS: 1. Acute hypoxic respiratory failure secondary to COVID-19 pneumonia Patient with significant groundglass opacities bilaterally with positive Covid test. Patient does have an elevated BNP, but this may be secondary to renal dysfunction and right heart strain. Patient was significantly hypoxic on presentation. Decadron and remdesivir per infectious disease. Patient does have an elevated pro calcitonin, but no leukocytosis or fever. We will hold on empiric antibiotics for now. Infectious disease has been consulted. Continue to monitor renal and liver function given remdesivir. Wean oxygen as tolerated. Continue nasal cannula later today. We will hold off on diuretic therapy for now. 2. Chronic diastolic CHF/history of ascending aortic dissection status post repair/paroxysmal A. fib/hypertensive urgency Patient appears to be relatively stable at this time from a cardiac perspective. We will reinitiate baseline medications. Hydralazine as needed has been ordered. Add Norvasc. Patient would likely benefit from an element of diuretic therapy. Renal function appears to be at his baseline. Okay to continue with Coreg and amiodarone from my perspective. Patient does have an elevated INR, but a small dose may be given for today. Likely okay to give a low-dose of Coumadin today, but defer to hospitalist 3. CKD stage III/chronic anemia/hypothyroidism/advanced age/reported COPD Complicates care, management, recovery and prognosis. Did confirm patient is a full code. Renal function appears to be at baseline. Previous pulmonary function tests are not consistent with a diagnosis of COPD. Cannot exclude an element of asthma, but patient is on Decadron therapy and has no wheezing on exam. Okay to continue with other baseline medications. Inpatient E&M: 00872 Subs Hosp L2
--- NOTE | 2020-11-06 09:47 | PCM.PROGNOTE ---
Patient Problems: Active and Suspected Problems (Last Reviewed 08/27/20 @ 01:[address] Naveed Rick MD) Abnormal cardiac enzyme level (Acute) Acute hypoxic respiratory failure (Acute) Acute bilateral COVID-19 pneumonia (Acute) Subjective: Chief complaint: Follow-up after admission for acute bilateral COVID-19 pneumonia and acute hypoxic respiratory failure. Patient seen and examined. No acute events overnight. He did use BiPAP but at 30, but was not needed as patient has been comfortable. He reported that his breathing is okay. No other complaints. He is afebrile, blood pressure and heart rate are stable, he is on airVo. - Physical Exam Vitals/I&O's: Vital Signs Temp Pulse Resp BP Pulse Ox 97.8 F 70 18 142/77 H 94 11/06/20 04:55 11/06/20 08:54 11/06/20 05:06 11/06/20 04:55 11/06/20 05:06 Oxygen Flow Rate (L/min) 40 Oxygen Delivery Method Bi-pap Weight: 131 lb 2 oz Body Mass Index (BMI) 24.7 Intake and Output for Last 24 Hours 11/04/20 11/05/20 11/06/20 23:59 23:59 23:59 Intake Total 850 / 970 1430 / 1430 Output Total 980 / 1180 1000 / 1000 250 / 250 Balance -130 / -210 430 / 430 -250 / -250 General: Alert, Oriented x3, Cooperative, No apparent distress HEENT: Atraumatic, PERRLA, EOMI, Normocephalic Oral: Moist Mucosa, No Gingival or Mucosal Lesions/ Ulcerations Neck: Supple, No JVD, Negative Carotid Bruits, Trachea Midline, Thyroid Normal Size and Texture Lungs: Clear to auscultation, No rhonchi, No wheeze, No rales, Diminished Cardiovascular: Regular rate, Regular Rhythm, Normal S1, Normal S2, PMI Normal Abdomen: Bowel Sounds Present, Soft, Non Tender, Non-Distended, No Hepato-splenomegaly Extremities: No clubbing, No cyanosis, No edema Skin: No rashes, No breakdown Lymphatic: No Cervical, Supraclavicular, or Inguinal Adenopathy Neurological: Cranial nerves II-XII grossly intact, Neuro grossly intact Psych/Mental Status: Normal Affect, Appropriate Laboratory Results 11/06/20 04:26: WBC 7.8, RBC 3.44 L, Hgb 9.4 L, Hct 30.4 L, MCV 88.4, MCH 27.3, MCHC 30.9 L, RDW Std Deviation 49.0 H, RDW Coeff of Ej 15.1 H, Plt Count 148 L, MPV 11.0 11/06/20 04:26: Sodium 140, Potassium 3.6, Chloride 106, Carbon Dioxide 29.0, Anion Gap 5, BUN 53 H, Creatinine 1.07, Estim Creat Clear Calc 41.41, Est GFR (MDRD) Af Amer 86, Est GFR (MDRD) Non-Af 71, BUN/Creatinine Ratio 49.5 H, Glucose 127 H, Calcium 7.6 L, Total Bilirubin 0.80, AST 23, ALT 13 L, Alkaline Phosphatase 92, Total Protein 5.2 L, Albumin 2.1 L, Globulin 3.1, Albumin/Globulin Ratio 0.7 L 11/06/20 04:26: PT 29.5 H, INR 2.8 Current Medications Acetaminophen (Acetaminophen 325 Mg Tablet) 650 mg PO Q6H PRN PRN PRN Reason: Pain Score 1-10/Temp > 100.7 F Al Hydroxide/Mg Hydroxide (Mag Hydrox/Al Hydrox/Simeth 30 Ml Udc) 15 ml PO Q6H PRN PRN PRN Reason: Heartburn, indigestion Last Admin: 11/03/20 09:59 Dose: 15 ml Documented by: Albuterol Sulfate (Albuterol Sulfate 8 Gm Inhaler (60 Puffs)) 2 puff INHALATION Q4H PRN PRN PRN Reason: Shortness of breath, wheezing Amiodarone HCl (Amiodarone 200 Mg Tablet) 200 mg PO DAILY [facility] Last Admin: 11/05/20 08:37 Dose: 200 mg Documented by: Atorvastatin Calcium (Atorvastatin Calcium 20 Mg Tablet) 20 mg PO QHS [facility] Last Admin: 11/05/20 20:27 Dose: 20 mg Documented by: Carvedilol (Carvedilol 25 Mg Tablet) 25 mg PO BID [facility] Last Admin: 11/05/20 20:28 Dose: 25 mg Documented by: Clopidogrel Bisulfate (Clopidogrel Bisulfate 75 Mg Tablet) 75 mg PO DAILY [facility] Last Admin: 11/05/20 08:36 Dose: 75 mg Documented by: Dexamethasone (Dex[facility] 4 Mg Tablet) [facility] Stop: 11/11/20 08:01 Last Admin: 11/05/20 08:35 Dose: 6 mg Documented by: Famotidine (Famotidine 20 Mg Tablet) 20 mg PO DAILY [facility] Last Admin: 11/05/20 08:36 Dose: 20 mg Documented by: Folic Acid (Folic Acid 1 Mg Tablet) [facility] Last Admin: 11/05/20 08:37 Dose: 1 mg Documented by: Furosemide (Furosemide 40 Mg Tablet) 40 mg PO DAILY [facility] Last Admin: 11/05/20 08:36 Dose: 40 mg Documented by: Hydralazine HCl (Hydralazine 20 Mg/Ml Vial) 10 mg IV Q4H PRN PRN PRN Reason: BLOOD PRESSURE ELEVATION Last Admin: 11/02/20 22:30 Dose: 10 mg Documented by: Remdesivir 100 mg/ Sodium (Chloride) 250 mls @ 125 mls/hr IV DAILY [facility] Stop: 11/06/20 11:59 Last Infusion: 11/05/20 13:33 Dose: Infused Documented by: Sodium Chloride () 250 mls @ 15 mls/hr IV .[id number] PRN PRN Reason: Saline Flush Sodium Chloride () 250 mls @ 15 mls/hr IV .[id number] PRN PRN Reason: Additional IVPB Infusion Levothyroxine Sodium (Levothyroxine 150 Mcg Tablet) 150 mcg PO DAILY@0600 [facility] Last Admin: 11/06/20 04:52 Dose: 150 mcg Documented by: Ondansetron HCl (Ondansetron 4 Mg/2 Ml Vial) 4 mg IV Q8H PRN PRN PRN Reason: NAUSEA/VOMITING Polysaccharide Iron Complex (Iron Polysaccharide Complex 150 Mg Capsule) [facility] Last Admin: 11/05/20 08:35 Dose: 150 mg Documented by: Ramipril (Ramipril 10 Mg Capsule) 10 mg PO DAILY [facility] Last Admin: 11/05/20 08:37 Dose: 10 mg Documented by: Senna/Docusate Sodium (Senna/Docusate Sodium 1 Tablet) 2 tablet PO BID PRN PRN PRN Reason: Constipation Sodium Chloride (0.9% Saline Lock 10 Ml Syringe) 10 - 40 ml IV UD PRN PRN Reason: SALINE FLUSH Last Admin: 11/05/20 11:33 Dose: 20 ml Documented by: Warfarin Sodium (Warfarin 3 Mg Tablet) 3 mg PO DAILY@1700 [facility] Medical Necessity - Tobacco Use Smoking Status: Former smoker Assessment/Plan All Active Problems (Last Reviewed 08/27/20 @ 01:[address] Naveed Rick MD) Abnormal cardiac enzyme level (Acute) Acute hypoxic respiratory failure (Acute) Acute bilateral COVID-19 pneumonia (Acute) This is a 80 years old male patient presented to the emergency room because of shortness of breath, cough and weakness for the last 3 to 4 days, found to have extensive bilateral infiltrate on chest x-ray more prominent on the right lung and he tested positive for COVID-19 antigen, found to have acute bilateral COVID-19 pneumonia complicated by acute hypoxic respiratory failure and is being admitted for treatment. #1 acute bilateral COVID-19 pneumonia: Remained on p.o Decadron, IV in the severe and subcu Lovenox twice daily. Remained stable on airvo with FiO2 40 % today, pulse ox has been around 94%. Symptoms continue to improve very slowly. Vital signs are stable, afebrile. Critical care and infectious disease are on the case. Plan to continue same treatment, plan to wean down to nasal cannula tomorrow morning if tolerated. #2 acute hypoxic respiratory failure: Secondary to #1. Normal, he does not use oxygen at home. Currently, he is on Airvo as above. #3 abnormal cardiac enzyme: Probably due to demand ischemia. EKG without acute ischemic changes. Patient remains without any chest pain. #4 stage III chronic kidney disease: Creatinine has been fluctuating anywhere between 1.2 to 1.7 mg/dL. Admission creatinine is 1.68, today's creatinine is 1.07, improved.. #5 paroxysmal atrial fibrillation: Heart rate stable, continue amiodarone and Coreg for rate control. INR is 2.8. Plan to resume Coumadin tonight. #6 CAD status post stents: EKG reviewed as above. continue Coreg, Altace, Crestor and Coumadin. #7 COPD: Currently, he is on airvo. He is on albuterol inhaler as needed. Plan as above. #8 chronic anemia: Due to anemia of chronic disease, baseline hemoglobin is been around 8 to 9 g/dL, admission hemoglobin is 10.1 g/dL, today's hemoglobin is 9.4 g/dL, stable at baseline. #9 chronic diastolic CHF: Stable, compensated. Continue Coreg and Altace, continue Lasix. #10 hypothyroidism: Continue levothyroxine. #11 history of ascending aortic dissection: Status post repair, stable, no acute issues. #12 CODE STATUS: Full code, discussed with the patient. #13 DVT prophylaxis: INR is 2.8. This note was generated with [employer] dictation software. It may contain incorrect words, spelling, and punctuation that were not noted in checking the note before signing. Inpatient E&M: 23740 Subs Hosp L2
[2020-11-06] MEDS: dexAMETHasone 4 MG Tablet 6 MG PO (10:01)
[2020-11-06] MEDS: Folic Acid 1 MG Tablet PO (10:02)
[2020-11-06] MEDS: Iron Polysaccharide Complex 150 MG CAPSULE PO (10:02)
[2020-11-06] MEDS: Amiodarone 200 MG Tablet PO (10:03)
[2020-11-06] MEDS: Ramipril 10 MG Capsule PO (10:03)
[2020-11-06] MEDS: Famotidine 20 MG Tablet PO (10:04)
[2020-11-06] MEDS: Furosemide 40 MG Tablet PO (10:04)
[2020-11-06] MEDS: Carvedilol 25 MG Tablet PO ×2 (10:04→20:35)
[2020-11-06] MEDS: Clopidogrel Bisulfate 75 MG Tablet PO (10:05)
[2020-11-06] MEDS: 0.9% Saline Lock 10 ML Syringe IV (10:57)
--- NOTE | 2020-11-06 14:29 | PCM.PN.ID ---
Patient Problems: Active and Suspected Problems (Last Reviewed 08/27/20 @ 01:[address] Naveed Rick MD) Abnormal cardiac enzyme level (Acute) Acute hypoxic respiratory failure (Acute) Acute bilateral COVID-19 pneumonia (Acute) Subjective: Feeling better, no fever, breathing improved. - Physical Exam Vitals/I&O's: Vital Signs Temp Pulse Resp BP Pulse Ox 97.9 F 76 18 139/63 H 97 11/06/20 09:56 11/06/20 09:56 11/06/20 09:56 11/06/20 09:56 11/06/20 10:07 Oxygen Flow Rate (L/min) 40 Oxygen Delivery Method Airvo Weight: 59.477 kg Body Mass Index (BMI) 24.7 Intake and Output for Last 24 Hours 11/04/20 11/05/20 11/06/20 23:59 23:59 23:59 Intake Total 850 / 970 1430 / 1430 Output Total 980 / 1180 1000 / 1000 750 / 750 Balance -130 / -210 430 / 430 -750 / -750 General: Alert, Cooperative, No apparent distress Lungs: Clear to auscultation, Normal air movement Cardiovascular: Regular rate, Regular Rhythm Abdomen: Soft, Non Tender, Non-Distended Skin: No rashes Laboratory Results 11/06/20 04:26: WBC 7.8, RBC 3.44 L, Hgb 9.4 L, Hct 30.4 L, MCV 88.4, MCH 27.3, MCHC 30.9 L, RDW Std Deviation 49.0 H, RDW Coeff of Ej 15.1 H, Plt Count 148 L, MPV 11.0 11/06/20 04:26: Sodium 140, Potassium 3.6, Chloride 106, Carbon Dioxide 29.0, Anion Gap 5, BUN 53 H, Creatinine 1.07, Estim Creat Clear Calc 41.41, Est GFR (MDRD) Af Amer 86, Est GFR (MDRD) Non-Af 71, BUN/Creatinine Ratio 49.5 H, Glucose 127 H, Calcium 7.6 L, Total Bilirubin 0.80, AST 23, ALT 13 L, Alkaline Phosphatase 92, Total Protein 5.2 L, Albumin 2.1 L, Globulin 3.1, Albumin/Globulin Ratio 0.7 L 11/06/20 04:26: PT 29.5 H, INR 2.8 Current Medications Acetaminophen (Acetaminophen 325 Mg Tablet) 650 mg PO Q6H PRN PRN PRN Reason: Pain Score 1-10/Temp > 100.7 F Al Hydroxide/Mg Hydroxide (Mag Hydrox/Al Hydrox/Simeth 30 Ml Udc) 15 ml PO Q6H PRN PRN PRN Reason: Heartburn, indigestion Last Admin: 11/03/20 09:59 Dose: 15 ml Documented by: Albuterol Sulfate (Albuterol Sulfate 8 Gm Inhaler (60 Puffs)) 2 puff INHALATION Q4H PRN PRN PRN Reason: Shortness of breath, wheezing Amiodarone HCl (Amiodarone 200 Mg Tablet) 200 mg PO DAILY [facility] Last Admin: 11/06/20 10:03 Dose: 200 mg Documented by: Atorvastatin Calcium (Atorvastatin Calcium 20 Mg Tablet) 20 mg PO QHS [facility] Last Admin: 11/05/20 20:27 Dose: 20 mg Documented by: Carvedilol (Carvedilol 25 Mg Tablet) 25 mg PO BID [facility] Last Admin: 11/06/20 10:04 Dose: 25 mg Documented by: Clopidogrel Bisulfate (Clopidogrel Bisulfate 75 Mg Tablet) 75 mg PO DAILY [facility] Last Admin: 11/06/20 10:05 Dose: 75 mg Documented by: Dexamethasone (D[facility] 4 Mg Tablet) [facility] Stop: 11/11/20 08:01 Last Admin: 11/06/20 10:01 Dose: 6 mg Documented by: Famotidine (Famotidine 20 Mg Tablet) 20 mg PO DAILY [facility] Last Admin: 11/06/20 10:04 Dose: 20 mg Documented by: Folic Acid (Folic Acid 1 Mg Tablet) [facility] Last Admin: 11/06/20 10:02 Dose: 1 mg Documented by: Furosemide (Furosemide 40 Mg Tablet) 40 mg PO DAILY [facility] Last Admin: 11/06/20 10:04 Dose: 40 mg Documented by: Hydralazine HCl (Hydralazine 20 Mg/Ml Vial) 10 mg IV Q4H PRN PRN PRN Reason: BLOOD PRESSURE ELEVATION Last Admin: 11/02/20 22:30 Dose: 10 mg Documented by: Sodium Chloride () 250 mls @ 15 mls/hr IV .[id number] PRN PRN Reason: Saline Flush Sodium Chloride () 250 mls @ 15 mls/hr IV .[id number] PRN PRN Reason: Additional IVPB Infusion Levothyroxine Sodium (Levothyroxine 150 Mcg Tablet) 150 mcg PO DAILY@0600 [facility] Last Admin: 11/06/20 04:52 Dose: 150 mcg Documented by: Ondansetron HCl (Ondansetron 4 Mg/2 Ml Vial) 4 mg IV Q8H PRN PRN PRN Reason: NAUSEA/VOMITING Polysaccharide Iron Complex (Iron Polysaccharide Complex 150 Mg Capsule) [facility] Last Admin: 11/06/20 10:02 Dose: 150 mg Documented by: Ramipril (Ramipril 10 Mg Capsule) 10 mg PO DAILY [facility] Last Admin: 11/06/20 10:03 Dose: 10 mg Documented by: Senna/Docusate Sodium (Senna/Docusate Sodium 1 Tablet) 2 tablet PO BID PRN PRN PRN Reason: Constipation Sodium Chloride (0.9% Saline Lock 10 Ml Syringe) 10 - 40 ml IV UD PRN PRN Reason: SALINE FLUSH Last Admin: 11/06/20 10:57 Dose: 10 ml Documented by: Warfarin Sodium (Warfarin 3 Mg Tablet) 3 mg PO DAILY@1700 [facility] Medical Necessity - Tobacco Use Smoking Status: Former smoker Route of nutrition/ use of supplements: [] Nutritional Intake: [] IV Site: [] Mcdowell Catheter: [] - Assessment/Plan Antibiotics: [] Assessment/Plan: [] Active and Suspected Problems (Last Reviewed 08/27/20 @ 01:[address] Naveed Rick MD) Abnormal cardiac enzyme level (Acute) Acute hypoxic respiratory failure (Acute) Acute bilateral COVID-19 pneumonia (Acute) covid with hypoxia - sx started 10/29. Recommended quarantine and get tested. CT neg for PE. Elevated INR on coumadin on admit. ALT normal. Cont with po dex and completed remdesivir. D-dimer 1.7. Improving overall. Plan on 10 days of dex total at discharge, quarantine for 20 days starting 10/29. Will follow
[2020-11-06] MEDS: Atorvastatin Calcium 20 MG Tablet PO (20:35)
[2020-11-07] VITALS (12 sets, daily range): BP systolic 153–166; BP diastolic 64–86; PULSE 60–96; RESP 12–26; TEMP 36.2–36.6; O2SAT 92–97
[2020-11-07 05:28] LABS: Hematocrit 29.9 % (40-54); Hemoglobin 9.3 g/dL (13.0-16.5); Mean Corp Hgb Conc 31.1 g/dL (32-36); Mean Corpuscular Hgb 27.5 pg (27.0-32.0); Mean Corpuscular Volume 88.5 fL (80-94); Platelet Count 115 K/mm3 (150-450); RBC Distribution Width CV 15.3 % (11.6-14.6); RBC Distribution Width SD 49.3 fl (35.1-43.9); Red Blood Count 3.38 M/mm3 (4.6-6.2); White Blood Count 8.4 K/mm3 (4.4-11.0)
[2020-11-07 05:46] LABS: Prothrombin Time (Protime)PT. 30.5 SECONDS (11.7-14.9)
[2020-11-07 05:56] LABS: ALB/GLOB Ratio 0.7 RATIO (0.9-2.4); AST(SGOT) 22 U/L (15-37); Alanine Aminotransfer ALT/SGPT 15 U/L (16-61); Albumin, Serum 2.1 g/dL (3.2-5.0); Alkaline Phosphatase 91 U/L (45-117); Anion Gap 4 (5-15); BUN 58 mg/dL (7-18); BUN/Creat Ratio 55.2 RATIO (10-20); Calcium,Total 7.6 mg/dL (8.5-10.1); Chloride 108 mmol/L (98-107); Creatinine, Serum 1.05 mg/dL (0.70-1.30); EST Glomerular Filtration Rate 72 mL/min (>60); Est Glom Filt Rate - Afr Amer 88 mL/min (>60); Globulin 2.9 g/dL (2.2-4.2); Glucose 129 mg/dL (74-106); Sodium Level 140 mmol/L (136-145)
[2020-11-07] MEDS: Levothyroxine 150 MCG Tablet PO (06:46)
--- NOTE | 2020-11-07 06:46 | PN_ITS ---
Patient Problems: Active and Suspected Problems (Last Reviewed 08/27/20 @ 01:[address] Naveed Rick MD) Abnormal cardiac enzyme level (Acute) Acute hypoxic respiratory failure (Acute) Acute bilateral COVID-19 pneumonia (Acute) Subjective: Patient did well overnight. No acute issues were reported. Patient did go on BiPAP therapy with sleep secondary to comfort. Patient denied any chest pain. Patient subjectively feels that he sleeps better with BiPAP. - Physical Exam Vitals/I&O's: Vital Signs Temp Pulse Resp BP Pulse Ox 36.6 C 78 26 H 160/64 H 92 11/07/20 02:30 11/07/20 04:49 11/07/20 04:49 11/07/20 02:30 11/07/20 04:49 Oxygen Flow Rate (L/min) 40 Oxygen Delivery Method Airvo Weight: 61.2 kg Body Mass Index (BMI) 24.7 Intake and Output for Last 24 Hours 11/05/20 11/06/20 11/07/20 23:59 23:59 23:59 Intake Total 1430 / 1430 250 / 250 Output Total 1000 / 1000 750 / 750 Balance 430 / 430 -500 / -500 General: Alert, Oriented x3, Cooperative, No apparent distress HEENT: Atraumatic, PERRLA, EOMI, Normocephalic, - - Scleral injection Oral: No Gingival or Mucosal Lesions/ Ulcerations, Dry Mucosa - On BiPAP Neck: Supple, No JVD, No Nodes, Trachea Midline Lungs: No rhonchi, No wheeze, No rales, Diminished, - - Symmetric expansion Cardiovascular: Regular rate, Regular Rhythm, Normal S1, Normal S2, No rub noted, No Gallop Abdomen: Bowel Sounds Present, Soft, Non Tender, Non-Distended Extremities: No clubbing, No cyanosis, Edema - Trace lower extremity Skin: No rashes, No breakdown Musculoskeletal: No Tenderness to Palpation of Joints or Extremities Lymphatic: No Cervical, Supraclavicular, or Inguinal Adenopathy Neurological: Cranial nerves II-XII grossly intact, Neuro grossly intact, Motor Exam 5/5 strength throughout Psych/Mental Status: Alert and oriented to time, place, person, mood and affect Laboratory Results 11/07/20 04:54: WBC 8.4, RBC 3.38 L, Hgb 9.3 L, Hct 29.9 L, MCV 88.5, MCH 27.5, MCHC 31.1 L, RDW Std Deviation 49.3 H, RDW Coeff of Ej 15.3 H, Plt Count 115 L, MPV 11.0 11/07/20 04:54: Sodium 140, Potassium 4.0, Chloride 108 H, Carbon Dioxide 28.0, Anion Gap 4 L, BUN 58 H, Creatinine 1.05, Estim Creat Clear Calc 42.20, Est GFR (MDRD) Af Amer 88, Est GFR (MDRD) Non-Af 72, BUN/Creatinine Ratio 55.2 H, Glucose 129 H, Calcium 7.6 L, Total Bilirubin 1.10 H, AST 22, ALT 15 L, Alkaline Phosphatase 91, Total Protein 5.0 L, Albumin 2.1 L, Globulin 2.9, Albumin/Globulin Ratio 0.7 L 11/07/20 04:54: PT 30.5 H, INR 3.0 Current Medications Acetaminophen (Acetaminophen 325 Mg Tablet) 650 mg PO Q6H PRN PRN PRN Reason: Pain Score 1-10/Temp > 100.7 F Al Hydroxide/Mg Hydroxide (Mag Hydrox/Al Hydrox/Simeth 30 Ml Udc) 15 ml PO Q6H PRN PRN PRN Reason: Heartburn, indigestion Last Admin: 11/03/20 09:59 Dose: 15 ml Documented by: Albuterol Sulfate (Albuterol Sulfate 8 Gm Inhaler (60 Puffs)) 2 puff INHALATION Q4H PRN PRN PRN Reason: Shortness of breath, wheezing Amiodarone HCl (Amiodarone 200 Mg Tablet) 200 mg PO DAILY [facility] Last Admin: 11/06/20 10:03 Dose: 200 mg Documented by: Atorvastatin Calcium (Atorvastatin Calcium 20 Mg Tablet) 20 mg PO QHS [facility] Last Admin: 11/06/20 20:35 Dose: 20 mg Documented by: Carvedilol (Carvedilol 25 Mg Tablet) 25 mg PO BID [facility] Last Admin: 11/06/20 20:35 Dose: 25 mg Documented by: Clopidogrel Bisulfate (Clopidogrel Bisulfate 75 Mg Tablet) 75 mg PO DAILY [facility] Last Admin: 11/06/20 10:05 Dose: 75 mg Documented by: [facility]: 11/11/20 08:01 Last Admin: 11/06/20 10:01 Dose: 6 mg Documented by: Famotidine (Famotidine 20 Mg Tablet) 20 mg PO DAILY [facility] Last Admin: 11/06/20 10:04 Dose: 20 mg Documented by: Folic Acid ([facility] Last Admin: 11/06/20 10:02 Dose: 1 mg Documented by: Furosemide (Furosemide 40 Mg Tablet) 40 mg PO DAILY [facility] Last Admin: 11/06/20 10:04 Dose: 40 mg Documented by: Hydralazine HCl (Hydralazine 20 Mg/Ml Vial) 10 mg IV Q4H PRN PRN PRN Reason: BLOOD PRESSURE ELEVATION Last Admin: 11/02/20 22:30 Dose: 10 mg Documented by: Sodium Chloride () 250 mls @ 15 mls/hr IV .[id number] PRN PRN Reason: Saline Flush Sodium Chloride () 250 mls @ 15 mls/hr IV .[id number] PRN PRN Reason: Additional IVPB Infusion Levothyroxine Sodium (Levothyroxine 150 Mcg Tablet) 150 mcg PO DAILY@0600 [facility] Last Admin: 11/06/20 04:52 Dose: 150 mcg Documented by: Ondansetron HCl (Ondansetron 4 Mg/2 Ml Vial) 4 mg IV Q8H PRN PRN PRN Reason: NAUSEA/VOMITING Polysaccharide Iron Complex (Iron Polysaccharide [facility] 150 [facility]apsule) [facility] Last Admin: 11/06/20 10:02 Dose: 150 mg Documented by: Ramipril (Ramipril 10 Mg Capsule) 10 mg PO DAILY [facility] Last Admin: 11/06/20 10:03 Dose: 10 mg Documented by: Senna/Docusate Sodium (Senna/Docusate Sodium 1 Tablet) 2 tablet PO BID PRN PRN PRN Reason: Constipation Sodium Chloride (0.9% Saline Lock 10 Ml Syringe) 10 - 40 ml IV UD PRN PRN Reason: SALINE FLUSH Last Admin: 11/06/20 10:57 Dose: 10 ml Documented by: Warfarin Sodium (Warfarin 3 Mg Tablet) 3 mg PO DAILY@1700 [facility] Last Admin: 11/06/20 16:58 Dose: 3 mg Documented by: Medical Necessity - Tobacco Use Smoking Status: Former smoker Assessment/Plan All Active Problems (Last Reviewed 08/27/20 @ 01:[address] Naveed Rick MD) Abnormal cardiac enzyme level (Acute) Acute hypoxic respiratory failure (Acute) Acute bilateral COVID-19 pneumonia (Acute) RECOMMENDATIONS: 1. Remdesivir and Decadron per infectious disease 2. Wean oxygen as tolerated. Continue BiPAP overnight. 3. Give additional dose of Lasix today 4. Recheck INR daily. Likely okay to continue low-dose Coumadin today. 5. Continue current hypertensive regimen IMPRESSIONS: 1. Acute hypoxic respiratory failure secondary to COVID-19 pneumonia Patient with significant groundglass opacities bilaterally with positive Covid test. Patient does have an elevated BNP, but this may be secondary to renal dysfunction and right heart strain. Patient was significantly hypoxic on presentation. Decadron and remdesivir per infectious disease. Patient does have an elevated pro calcitonin on presentation, but no leukocytosis or fever. We will hold on empiric antibiotics for now. Infectious disease has been consulted. Continue to monitor renal and liver function given remdesivir. Wean oxygen as tolerated. Continue nasal cannula later today. We will given a dose small dose of Lasix later today 2. Chronic diastolic CHF/history of ascending aortic dissection status post repair/paroxysmal A. fib/hypertensive urgency Patient appears to be relatively stable at this time from a cardiac perspective. We will reinitiate baseline medications. Hydralazine as needed has been ordered. Add Norvasc. Patient would likely benefit from an element of diuretic therapy. Renal function appears to be at his baseline. Okay to continue with Coreg and amiodarone from my perspective. Patient does have an elevated INR, but a small dose may be given for today. No bleeding has been reported 3. CKD stage III/chronic anemia/hypothyroidism/advanced age/reported COPD Complicates care, management, recovery and prognosis. Did confirm patient is a full code. Renal function appears to be at baseline. Previous pulmonary function tests are not consistent with a diagnosis of COPD. Cannot exclude an element of asthma, but patient is on Decadron therapy and has no wheezing on exam. Okay to continue with other baseline medications. Inpatient E&M: 73156 Subs Hosp L2
--- NOTE | 2020-11-07 08:35 | PCM.PROGNOTE ---
Patient Problems: Active and Suspected Problems (Last Reviewed 08/27/20 @ 01:[address] Naveed Rick MD) Abnormal cardiac enzyme level (Acute) Acute hypoxic respiratory failure (Acute) Acute bilateral COVID-19 pneumonia (Acute) Subjective: Chief complaint: Follow-up after admission for acute bilateral COVID-19 pneumonia and acute hypoxic respiratory failure. Patient seen and examined. No acute events overnight. He was on BiPAP overnight with sleep. He denied any worsening shortness of breath. This morning, he is back onto airvo. His vital signs are stable. - Physical Exam Vitals/I&O's: Vital Signs Temp Pulse Resp BP Pulse Ox 97.8 F 60 22 H 160/64 H 92 11/07/20 02:30 11/07/20 07:30 11/07/20 07:30 11/07/20 02:30 11/07/20 07:30 Oxygen Flow Rate (L/min) 39 Oxygen Delivery Method Airvo Weight: 134 lb 14.766 oz Body Mass Index (BMI) 24.7 Intake and Output for Last 24 Hours 11/05/20 11/06/20 11/07/20 23:59 23:59 23:59 Intake Total 1430 / 1430 250 / 250 Output Total 1000 / 1000 750 / 750 200 / 200 Balance 430 / 430 -500 / -500 -200 / -200 General: Alert, Oriented x3, Cooperative, No apparent distress HEENT: Atraumatic, PERRLA, EOMI, Normocephalic Oral: Moist Mucosa, No Gingival or Mucosal Lesions/ Ulcerations Neck: Supple, No JVD, Negative Carotid Bruits, Trachea Midline, Thyroid Normal Size and Texture Lungs: Clear to auscultation, No rhonchi, No wheeze, No rales, Diminished Cardiovascular: Regular rate, Regular Rhythm, Normal S1, Normal S2, PMI Normal Abdomen: Bowel Sounds Present, Soft, Non Tender, Non-Distended, No Hepato-splenomegaly Extremities: No clubbing, No cyanosis, No edema Skin: No rashes, No breakdown Lymphatic: No Cervical, Supraclavicular, or Inguinal Adenopathy Neurological: Cranial nerves II-XII grossly intact, Neuro grossly intact Psych/Mental Status: Normal Affect, Appropriate, Alert and oriented to time, place, person, mood and affect Laboratory Results 11/07/20 04:54: WBC 8.4, RBC 3.38 L, Hgb 9.3 L, Hct 29.9 L, MCV 88.5, MCH 27.5, MCHC 31.1 L, RDW Std Deviation 49.3 H, RDW Coeff of Ej 15.3 H, Plt Count 115 L, MPV 11.0 11/07/20 04:54: Sodium 140, Potassium 4.0, Chloride 108 H, Carbon Dioxide 28.0, Anion Gap 4 L, BUN 58 H, Creatinine 1.05, Estim Creat Clear Calc 42.20, Est GFR (MDRD) Af Amer 88, Est GFR (MDRD) Non-Af 72, BUN/Creatinine Ratio 55.2 H, Glucose 129 H, Calcium 7.6 L, Total Bilirubin 1.10 H, AST 22, ALT 15 L, Alkaline Phosphatase 91, Total Protein 5.0 L, Albumin 2.1 L, Globulin 2.9, Albumin/Globulin Ratio 0.7 L 11/07/20 04:54: PT 30.5 H, INR 3.0 Current Medications Acetaminophen (Acetaminophen 325 Mg Tablet) 650 mg PO Q6H PRN PRN PRN Reason: Pain Score 1-10/Temp > 100.7 F Al Hydroxide/Mg Hydroxide (Mag Hydrox/Al Hydrox/Simeth 30 Ml Udc) 15 ml PO Q6H PRN PRN PRN Reason: Heartburn, indigestion Last Admin: 11/03/20 09:59 Dose: 15 ml Documented by: Albuterol Sulfate (Albuterol Sulfate 8 Gm Inhaler (60 Puffs)) 2 puff INHALATION Q4H PRN PRN PRN Reason: Shortness of breath, wheezing Amiodarone HCl (Amiodarone 200 Mg Tablet) 200 mg PO DAILY [facility] Last Admin: 11/06/20 10:03 Dose: 200 mg Documented by: Atorvastatin Calcium (Atorvastatin Calcium 20 Mg Tablet) 20 mg PO QHS [facility] Last Admin: 11/06/20 20:35 Dose: 20 mg Documented by: Carvedilol (Carvedilol 25 Mg Tablet) 25 mg PO BID [facility] Last Admin: 11/06/20 20:35 Dose: 25 mg Documented by: Clopidogrel Bisulfate (Clopidogrel Bisulfate 75 Mg Tablet) 75 mg PO DAILY [facility] Last Admin: 11/06/20 10:05 Dose: 75 mg Documented by: Dexamethasone (Dexamethasone 4 Mg Tablet) [facility] Stop: 11/11/20 08:01 Last Admin: 11/06/20 10:01 Dose: 6 mg Documented by: Famotidine (Famotidine 20 Mg Tablet) 20 mg PO DAILY [facility] Last Admin: 11/06/20 10:04 Dose: 20 mg Documented by: Folic Acid (Folic Acid 1 Mg Tablet) [facility] Last Admin: 11/06/20 10:02 Dose: 1 mg Documented by: Furosemide (Furosemide 40 Mg Tablet) 40 mg PO DAILY [facility] Last Admin: 11/06/20 10:04 Dose: 40 mg Documented by: Furosemide (Furosemide 40 Mg Tablet) 40 mg PO [facility] Stop: 11/07/20 18:01 Hydralazine HCl (Hydralazine 20 Mg/Ml Vial) 10 mg IV Q4H PRN PRN PRN Reason: BLOOD PRESSURE ELEVATION Last Admin: 11/02/20 22:30 Dose: 10 mg Documented by: Sodium Chloride () 250 mls @ 15 mls/hr IV .[id number] PRN PRN Reason: Saline Flush Sodium Chloride () 250 mls @ 15 mls/hr IV .[id number] PRN PRN Reason: Additional IVPB Infusion Levothyroxine Sodium (Levothyroxine 150 Mcg Tablet) 150 mcg PO DAILY@0600 [facility] Last Admin: 11/07/20 06:46 Dose: 150 mcg Documented by: Ondansetron HCl (Ondansetron 4 Mg/2 Ml Vial) 4 mg IV Q8H PRN PRN PRN Reason: NAUSEA/VOMITING Polysaccharide Iron Complex (Iron Polysaccharide Complex 150 Mg Capsule) [facility] Last Admin: 11/06/20 10:02 Dose: 150 mg Documented by: Ramipril (Ramipril 10 Mg Capsule) 10 mg PO DAILY [facility] Last Admin: 11/06/20 10:03 Dose: 10 mg Documented by: Senna/Docusate Sodium (Senna/Docusate Sodium 1 Tablet) 2 tablet PO BID PRN PRN PRN Reason: Constipation Sodium Chloride (0.9% Saline Lock 10 Ml Syringe) 10 - 40 ml IV UD PRN PRN Reason: SALINE FLUSH Last Admin: 11/06/20 10:57 Dose: 10 ml Documented by: Warfarin Sodium (Warfarin 3 Mg Tablet) 3 mg PO DAILY@1700 [facility] Last Admin: 11/06/20 16:58 Dose: 3 mg Documented by: Medical Necessity - Tobacco Use Smoking Status: Former smoker Assessment/Plan All Active Problems (Last Reviewed 08/27/20 @ 01:[address] Naveed Rick MD) Abnormal cardiac enzyme level (Acute) Acute hypoxic respiratory failure (Acute) Acute bilateral COVID-19 pneumonia (Acute) This is a 80 years old male patient presented to the emergency room because of shortness of breath, cough and weakness for the last 3 to 4 days, found to have extensive bilateral infiltrate on chest x-ray more prominent on the right lung and he tested positive for COVID-19 antigen, found to have acute bilateral COVID-19 pneumonia complicated by acute hypoxic respiratory failure and is being admitted for treatment. #1 acute bilateral COVID-19 pneumonia: Remained on p.o Decadron and subcu Lovenox twice daily. Completed IV remdesivir. Remained stable on airvo with FiO2 40 % today, pulse ox has been around 92%. Symptoms continue to improve very slowly. Vital signs are stable, afebrile. Critical care and infectious disease are on the case. Plan to continue same treatment, will try to avoid using BiPAP overnight, wean off oxygen as tolerated. #2 acute hypoxic respiratory failure: Secondary to #1. Normal, he does not use oxygen at home. Currently, he is on Airvo as above. #3 abnormal cardiac enzyme: Probably due to demand ischemia. EKG without acute ischemic changes. Patient remains without any chest pain. #4 stage III chronic kidney disease: Creatinine has been fluctuating anywhere between 1.2 to 1.7 mg/dL. Admission creatinine is 1.68, today's creatinine is 1.05, improved.. #5 paroxysmal atrial fibrillation: Heart rate stable, continue amiodarone and Coreg for rate control. INR is 3. Plan to resume Coumadin tonight. #6 CAD status post stents: EKG reviewed as above. continue Coreg, Altace, Crestor and Coumadin. #7 COPD: Currently, he is on airvo. He is on albuterol inhaler as needed. Plan as above. #8 chronic anemia: Due to anemia of chronic disease, baseline hemoglobin is been around 8 to 9 g/dL, admission hemoglobin is 10.1 g/dL, today's hemoglobin is 9.3 g/dL, stable at baseline. #9 chronic diastolic CHF: Stable, compensated. Continue Coreg and Altace, continue Lasix. #10 hypothyroidism: Continue levothyroxine. #11 history of ascending aortic dissection: Status post repair, stable, no acute issues. #12 CODE STATUS: Full code, discussed with the patient. #13 DVT prophylaxis: INR is 3. This note was generated with [employer] dictation software. It may contain incorrect words, spelling, and punctuation that were not noted in checking the note before signing. Inpatient E&M: [id number] Subs Hosp L2
[2020-11-07] MEDS: Iron Polysaccharide Complex 150 MG CAPSULE PO (08:37)
[2020-11-07] MEDS: Clopidogrel Bisulfate 75 MG Tablet PO (08:37)
[2020-11-07] MEDS: Furosemide 40 MG Tablet PO ×2 (08:37→17:20)
[2020-11-07] MEDS: Famotidine 20 MG Tablet PO (08:38)
[2020-11-07] MEDS: Ramipril 10 MG Capsule PO (08:38)
[2020-11-07] MEDS: dexAMETHasone 4 MG Tablet 6 MG PO (08:38)
[2020-11-07] MEDS: Amiodarone 200 MG Tablet PO (08:38)
[2020-11-07] MEDS: Carvedilol 25 MG Tablet PO ×2 (08:38→22:35)
[2020-11-07] MEDS: Folic Acid 1 MG Tablet PO (08:38)
[2020-11-07] MEDS: Atorvastatin Calcium 20 MG Tablet PO (22:35)
[2020-11-08] VITALS (13 sets, daily range): BP systolic 158–174; BP diastolic 60–75; PULSE 69–78; RESP 16–18; TEMP 36.3–36.8; O2SAT 90–96
[2020-11-08] MEDS: Levothyroxine 150 MCG Tablet PO ×2 (06:13→07:57)
--- NOTE | 2020-11-08 06:38 | PN_ITS ---
Patient Problems: Active and Suspected Problems (Last Reviewed 08/27/20 @ 01:[address] Naveed Rick MD) Abnormal cardiac enzyme level (Acute) Acute hypoxic respiratory failure (Acute) Acute bilateral COVID-19 pneumonia (Acute) Subjective: Patient did well overnight. No acute issues were reported. Patient was able to tolerate Airvo with sleep and is currently on nasal cannula. Patient reports he feels subjectively improved compared to previous. - Physical Exam Vitals/I&O's: Vital Signs Temp Pulse Resp BP Pulse Ox 36.6 C 75 17 160/75 H 93 11/08/20 06:08 11/08/20 06:08 11/08/20 06:08 11/08/20 06:08 11/08/20 06:08 Oxygen Flow Rate (L/min) 6 Oxygen Delivery Method Nasal Cannula Weight: 59.2 kg Body Mass Index (BMI) 24.7 Intake and Output for Last 24 Hours 11/06/20 11/07/20 11/08/20 23:59 23:59 23:59 Intake Total 250 / 250 900 / 900 Output Total 750 / 750 750 / 1050 300 / 300 Balance -500 / -500 150 / -150 -300 / -300 General: Alert, Oriented x3, Cooperative, No apparent distress, - - Speaking in full sentences HEENT: Atraumatic, PERRLA, EOMI, Normocephalic, - - No scleral icterus or injection noted Oral: Moist Mucosa, No Gingival or Mucosal Lesions/ Ulcerations Neck: Supple, No JVD, No Nodes, Trachea Midline Lungs: No rhonchi, No wheeze, No rales, Diminished, - - Symmetric expansion Cardiovascular: Regular rate, Regular Rhythm, Normal S1, Normal S2, No murmurs, No rub noted, No Gallop Abdomen: Bowel Sounds Present, Soft, Non Tender, Non-Distended Extremities: No clubbing, No cyanosis, No edema, - - Hand amputation noted Skin: No rashes, No breakdown Musculoskeletal: No Tenderness to Palpation of Joints or Extremities Lymphatic: No Cervical, Supraclavicular, or Inguinal Adenopathy Neurological: Cranial nerves II-XII grossly intact, Neuro grossly intact, Motor Exam 5/5 strength throughout Psych/Mental Status: Alert and oriented to time, place, person, mood and affect Laboratory Results Laboratory Results - last 24 hr 11/08/20 11/08/20 05:40 05:40 PT 35.6 H INR 3.6 H* Sodium 143 Potassium 3.9 Chloride 107 Carbon Dioxide 32.0 Anion Gap 4 L BUN 53 H Creatinine 1.16 Estim Creat Clear Calc 38.20 Est GFR (MDRD) Af Amer 78 Est GFR (MDRD) Non-Af 65 BUN/Creatinine Ratio 45.7 H Glucose 109 H Calcium 8.0 L Current Medications Acetaminophen (Acetaminophen 325 Mg Tablet) 650 mg PO Q6H PRN PRN PRN Reason: Pain Score 1-10/Temp > 100.7 F Al Hydroxide/Mg Hydroxide (Mag Hydrox/Al Hydrox/Simeth 30 Ml Udc) 15 ml PO Q6H PRN PRN PRN Reason: Heartburn, indigestion Last Admin: 11/03/20 09:59 Dose: 15 ml Documented by: Albuterol Sulfate (Albuterol Sulfate 8 Gm Inhaler (60 Puffs)) 2 puff INHALATION Q4H PRN PRN PRN Reason: Shortness of breath, wheezing Amiodarone HCl (Amiodarone 200 Mg Tablet) 200 mg PO DAILY [facility] Last Admin: 11/07/20 08:38 Dose: 200 mg Documented by: Atorvastatin Calcium (Atorvastatin Calcium 20 Mg Tablet) 20 mg PO QHS [facility] Last Admin: 11/07/20 22:35 Dose: 20 mg Documented by: Carvedilol (Carvedilol 25 Mg Tablet) 25 mg PO BID [facility] Last Admin: 11/07/20 22:35 Dose: 25 mg Documented by: Clopidogrel Bisulfate (Clopidogrel Bisulfate 75 Mg Tablet) 75 mg PO DAILY [facility] Last Admin: 11/07/20 08:37 Dose: 75 mg Documented by: Dexamethasone (Dexamethasone 4 Mg Tablet) 6 mg PO DAILY [facility] Stop: 11/11/20 10:01 Famotidine (Famotidine 20 Mg Tablet) 20 mg PO DAILY [facility] Last Admin: 11/07/20 08:38 Dose: 20 mg Documented by: Folic Acid (Folic Acid 1 Mg Tablet) 1 mg PO DAILY [facility] Furosemide (Furosemide 40 Mg Tablet) 40 mg PO DAILY [facility] Last Admin: 11/07/20 08:37 Dose: 40 mg Documented by: Hydralazine HCl (Hydralazine 20 Mg/Ml Vial) 10 mg IV Q4H PRN PRN PRN Reason: BLOOD PRESSURE ELEVATION Last Admin: 11/02/20 22:30 Dose: 10 mg Documented by: Sodium Chloride () 250 mls @ 15 mls/hr IV .[id number] PRN PRN Reason: Saline Flush Sodium Chloride () 250 mls @ 15 mls/hr IV .[id number] PRN PRN Reason: Additional IVPB Infusion Levothyroxine Sodium (Levothyroxine 150 Mcg Tablet) 150 mcg PO DAILY [facility] Last Admin: 11/08/20 06:13 Dose: 150 mcg Documented by: Ondansetron HCl (Ondansetron 4 Mg/2 Ml Vial) 4 mg IV Q8H PRN PRN PRN Reason: NAUSEA/VOMITING Polysaccharide Iron Complex (Iron Polysaccharide Complex 150 Mg Capsule) 150 mg PO DAILY [facility] Ramipril (Ramipril 10 Mg Capsule) 10 mg PO DAILY [facility] Last Admin: 11/07/20 08:38 Dose: 10 mg Documented by: Senna/Docusate Sodium (Senna/Docusate Sodium 1 Tablet) 2 tablet PO BID PRN PRN PRN Reason: Constipation Sodium Chloride (0.9% Saline Lock 10 Ml Syringe) 10 - 40 ml IV UD PRN PRN Reason: SALINE FLUSH Last Admin: 11/06/20 10:57 Dose: 10 ml Documented by: Warfarin Sodium (Warfarin 3 Mg Tablet) 3 mg PO DAILY@1700 [facility] Last Admin: 11/07/20 17:20 Dose: 3 mg Documented by: Medical Necessity - Tobacco Use Smoking Status: Former smoker Assessment/Plan All Active Problems (Last Reviewed 08/27/20 @ 01:[address] Naveed Rick MD) Abnormal cardiac enzyme level (Acute) Acute hypoxic respiratory failure (Acute) Acute bilateral COVID-19 pneumonia (Acute) RECOMMENDATIONS: 1. Completed remdesivir. Continue Decadron per infectious disease 2. Wean oxygen as tolerated. Okay to discontinue BiPAP 3. Hold on additional dose of Lasix today 4. Recheck INR daily. Likely okay to continue low-dose Coumadin today. Await morning labs 5. Continue current hypertensive regimen IMPRESSIONS: 1. Acute hypoxic respiratory failure secondary to COVID-19 pneumonia Patient with significant groundglass opacities bilaterally with positive Covid test. Patient does have an elevated BNP, but this may be secondary to renal dysfunction and right heart strain. Patient was significantly hypoxic on presentation. Continue Decadron to complete 10 days. Completed remdesivir. Patient did have an elevated pro calcitonin on presentation, but no leukocytosis or fever. Patient has done well off of empiric antibiotics. Infectious disease following. Okay to discontinue liver function testing as patient has completed remdesivir. Wean oxygen as tolerated. Continue nasal cannula later today. We will hold on additional doses of Lasix for now 2. Chronic diastolic CHF/history of ascending aortic dissection status post repair/paroxysmal A. fib/hypertensive urgency Patient appears to be relatively stable at this time from a cardiac perspective. We will reinitiate baseline medications. Hydralazine as needed has been ordered. Add Norvasc. Patient would likely benefit from an element of diuretic therapy. Renal function appears to be at his baseline. Okay to continue with Coreg and amiodarone from my perspective. Patient does have an elevated INR, but a small dose may be given for today. No bleeding has been reported 3. CKD stage III/chronic anemia/hypothyroidism/advanced age/reported COPD Complicates care, management, recovery and prognosis. Did confirm patient is a full code. Renal function appears to be at baseline. Previous pulmonary function tests are not consistent with a diagnosis of COPD. Cannot exclude an element of asthma, but patient is on Decadron therapy and has no wheezing on exam. Okay to continue with other baseline medications. Inpatient E&M: [id number] [facility] Hosp L2
[2020-11-08 06:49] LABS: Prothrombin Time (Protime)PT. 35.6 SECONDS (11.7-14.9)
[2020-11-08 06:52] LABS: International Normalized Ratio 3.6
[2020-11-08 07:06] LABS: Anion Gap 4 (5-15); BUN 53 mg/dL (7-18); BUN/Creat Ratio 45.7 RATIO (10-20); Chloride 107 mmol/L (98-107); Creatinine, Serum 1.16 mg/dL (0.70-1.30); EST Glomerular Filtration Rate 65 mL/min (>60); Est Glom Filt Rate - Afr Amer 78 mL/min (>60); Glucose 109 mg/dL (74-106); Potassium 3.9 mmol/L (3.5-5.1); Sodium Level 143 mmol/L (136-145)
--- NOTE | 2020-11-08 07:52 | PCM.PROGNOTE ---
Patient Problems: Active and Suspected Problems (Last Reviewed 08/27/20 @ 01:[address] Naveed Rick MD) Abnormal cardiac enzyme level (Acute) Acute hypoxic respiratory failure (Acute) Acute bilateral COVID-19 pneumonia (Acute) Subjective: Chief complaint: Follow-up after admission for acute bilateral COVID-19 pneumonia and acute hypoxic respiratory failure. Patient seen and examined. No acute events overnight. He states that his breathing has been stable, getting better slowly every day. He was able to sleep with Airvo last night. This morning, he is on nasal cannula 6 L and he feels fine. No new complaints. Other vital signs are stable. - Physical Exam Vitals/I&O's: Vital Signs Temp Pulse Resp BP Pulse Ox 97.8 F 75 17 160/75 H 90 11/08/20 06:08 11/08/20 07:37 11/08/20 06:08 11/08/20 06:08 11/08/20 07:43 Oxygen Flow Rate (L/min) 6 Oxygen Delivery Method Nasal Cannula Weight: 130 lb 8.218 oz Body Mass Index (BMI) 24.7 Intake and Output for Last 24 Hours 11/06/20 11/07/20 11/08/20 23:59 23:59 23:59 Intake Total 250 / 250 900 / 900 Output Total 750 / 750 750 / 1050 300 / 300 Balance -500 / -500 150 / -150 -300 / -300 General: Alert, Oriented x3, Cooperative, No apparent distress HEENT: Atraumatic, PERRLA, EOMI, Normocephalic Oral: Moist Mucosa, No Gingival or Mucosal Lesions/ Ulcerations Neck: Supple, No JVD, Negative Carotid Bruits, Trachea Midline, Thyroid Normal Size and Texture Lungs: Clear to auscultation, No rhonchi, No wheeze, No rales, Diminished Cardiovascular: Regular rate, Regular Rhythm, Normal S1, Normal S2, PMI Normal Abdomen: Bowel Sounds Present, Soft, Non Tender, Non-Distended, No Hepato-splenomegaly Extremities: No clubbing, No cyanosis, Edema Skin: No rashes, No breakdown Lymphatic: No Cervical, Supraclavicular, or Inguinal Adenopathy Neurological: Cranial nerves II-XII grossly intact, Neuro grossly intact Psych/Mental Status: Normal Affect, Appropriate, Alert and oriented to time, place, person, mood and affect Laboratory Results 11/08/20 05:40: PT 35.6 H, INR 3.6 H* 11/08/20 05:40: Sodium 143, Potassium 3.9, Chloride 107, Carbon Dioxide 32.0, Anion Gap 4 L, BUN 53 H, Creatinine 1.16, Estim Creat Clear Calc 38.20, Est GFR (MDRD) Af Amer 78, Est GFR (MDRD) Non-Af 65, BUN/Creatinine Ratio 45.7 H, Glucose 109 H, Calcium 8.0 L Current Medications Acetaminophen (Acetaminophen 325 Mg Tablet) 650 mg PO Q6H PRN PRN PRN Reason: Pain Score 1-10/Temp > 100.7 F Al Hydroxide/Mg Hydroxide (Mag Hydrox/Al Hydrox/Simeth 30 Ml Udc) 15 ml PO Q6H PRN PRN PRN Reason: Heartburn, indigestion Last Admin: 11/03/20 09:59 Dose: 15 ml Documented by: Albuterol Sulfate (Albuterol Sulfate 8 Gm Inhaler (60 Puffs)) 2 puff INHALATION Q4H PRN PRN PRN Reason: Shortness of breath, wheezing Amiodarone HCl (Amiodarone 200 Mg Tablet) 200 mg PO DAILY [facility] Last Admin: 11/07/20 08:38 Dose: 200 mg Documented by: Atorvastatin Calcium (Atorvastatin Calcium 20 Mg Tablet) 20 mg PO QHS [facility] Last Admin: 11/07/20 22:35 Dose: 20 mg Documented by: Carvedilol (Carvedilol 25 Mg Tablet) 25 mg PO BID [facility] Last Admin: 11/07/20 22:35 Dose: 25 mg Documented by: Clopidogrel Bisulfate (Clopidogrel Bisulfate 75 Mg Tablet) 75 mg PO DAILY [facility] Last Admin: 11/07/20 08:37 Dose: 75 mg Documented by: Dexamethasone (Dexamethasone 4 Mg Tablet) 6 mg PO DAILY [facility] Stop: 11/11/20 10:01 Famotidine (Famotidine 20 Mg Tablet) 20 mg PO DAILY [facility] Last Admin: 11/07/20 08:38 Dose: 20 mg Documented by: Folic Acid (Folic Acid 1 Mg Tablet) 1 mg PO DAILY [facility] Furosemide (Furosemide 40 Mg Tablet) 40 mg PO DAILY [facility] Last Admin: 11/07/20 08:37 Dose: 40 mg Documented by: Hydralazine HCl (Hydralazine 20 Mg/Ml Vial) 10 mg IV Q4H PRN PRN PRN Reason: BLOOD PRESSURE ELEVATION Last Admin: 11/02/20 22:30 Dose: 10 mg Documented by: Sodium Chloride () 250 mls @ 15 mls/hr IV .[id number] PRN PRN Reason: Saline Flush Sodium Chloride () 250 mls @ 15 mls/hr IV .[id number] PRN PRN Reason: Additional IVPB Infusion Levothyroxine Sodium (Levothyroxine 150 Mcg Tablet) 150 mcg PO DAILY [facility] Last Admin: 11/08/20 06:13 Dose: 150 mcg Documented by: Ondansetron HCl (Ondansetron 4 Mg/2 Ml Vial) 4 mg IV Q8H PRN PRN PRN Reason: NAUSEA/VOMITING Polysaccharide Iron Complex (Iron Polysaccharide Complex 150 Mg Capsule) 150 mg PO DAILY [facility] Ramipril (Ramipril 10 Mg Capsule) 10 mg PO DAILY [facility] Last Admin: 11/07/20 08:38 Dose: 10 mg Documented by: Senna/Docusate Sodium (Senna/Docusate Sodium 1 Tablet) 2 tablet PO BID PRN PRN PRN Reason: Constipation Sodium Chloride (0.9% Saline Lock 10 Ml Syringe) 10 - 40 ml IV UD PRN PRN Reason: SALINE FLUSH Last Admin: 11/06/20 10:57 Dose: 10 ml Documented by: Medical Necessity - Tobacco Use Smoking Status: Former smoker Assessment/Plan All Active Problems (Last Reviewed 08/27/20 @ 01:[address] Naveed Rick MD) Abnormal cardiac enzyme level (Acute) Acute hypoxic respiratory failure (Acute) Acute bilateral COVID-19 pneumonia (Acute) This is a 80 years old male patient presented to the emergency room because of shortness of breath, cough and weakness for the last 3 to 4 days, found to have extensive bilateral infiltrate on chest x-ray more prominent on the right lung and he tested positive for COVID-19 antigen, found to have acute bilateral COVID-19 pneumonia complicated by acute hypoxic respiratory failure and is being admitted for treatment. #1 acute bilateral COVID-19 pneumonia: Remained on p.o Decadron and subcu Lovenox twice daily. Completed IV remdesivir. This morning, he is on oxygen by nasal cannula at 6 L. Blood pressure slight elevated, other vital signs are stable, afebrile. Symptoms continue to improve very slowly. Critical care and infectious disease are on the case. Plan to continue same treatment. #2 acute hypoxic respiratory failure: Secondary to #1. Normal, he does not use oxygen at home. Currently, he is on oxygen by nasal cannula at 6 L. Plan as above. #3 abnormal cardiac enzyme: Probably due to demand ischemia. EKG without acute ischemic changes. Patient remains without any chest pain. #4 stage III chronic kidney disease: Creatinine has been fluctuating anywhere between 1.2 to 1.7 mg/dL. Admission creatinine is 1.68, today's creatinine is 1.16, improved.. #5 paroxysmal atrial fibrillation: Heart rate stable, continue amiodarone and Coreg for rate control. INR is 3.6. Plan to hold Coumadin again today, repeat INR tomorrow morning. #6 CAD status post stents: EKG reviewed as above. continue Coreg, Altace, Crestor and Coumadin. #7 COPD: Currently, he is nasal cannula as above. He is on albuterol inhaler as needed. Plan as above. #8 chronic anemia: Due to anemia of chronic disease, baseline hemoglobin is been around 8 to 9 g/dL, admission hemoglobin is 10.1 g/dL, yesterday's hemoglobin is 9.3 g/dL, stable at baseline. #9 chronic diastolic CHF: Stable, compensated. Continue Coreg and Altace, continue Lasix. #10 hypothyroidism: Continue levothyroxine. #11 history of ascending aortic dissection: Status post repair, stable, no acute issues. #12 CODE STATUS: Full code, discussed with the patient. #13 DVT prophylaxis: INR is 3.6. This note was generated with [employer] dictation software. It may contain incorrect words, spelling, and punctuation that were not noted in checking the note before signing. Inpatient E&M: 62572 Subs Hosp L2
[2020-11-08] MEDS: dexAMETHasone 4 MG Tablet 6 MG PO (07:56)
[2020-11-08] MEDS: Ramipril 10 MG Capsule PO (07:57)
[2020-11-08] MEDS: Furosemide 40 MG Tablet PO (07:57)
[2020-11-08] MEDS: Folic Acid 1 MG Tablet PO (07:57)
[2020-11-08] MEDS: Clopidogrel Bisulfate 75 MG Tablet PO (07:57)
[2020-11-08] MEDS: Famotidine 20 MG Tablet PO (07:57)
[2020-11-08] MEDS: Carvedilol 25 MG Tablet PO ×2 (07:58→20:05)
[2020-11-08] MEDS: Amiodarone 200 MG Tablet PO (07:58)
[2020-11-08] MEDS: Iron Polysaccharide Complex 150 MG CAPSULE PO (07:58)
[2020-11-08] MEDS: Atorvastatin Calcium 20 MG Tablet PO (20:05)
--- NOTE | 2020-11-08 20:33 | PCS.PANDOC ---
PANDEMIC DOCUMENTATION INITIATED: Date: 11/02/20 Time:
[2020-11-09] VITALS (8 sets, daily range): BP systolic 143–160; BP diastolic 62–68; PULSE 73–79; RESP 18; TEMP 36.2–36.9; O2SAT 93–94
[2020-11-09] MEDS: Albuterol Sulfate 8 gm Inhaler (60 puffs) 2 PUFF INHALATION ×2 (03:14→10:54)
[2020-11-09 06:20] LABS: Prothrombin Time (Protime)PT. 41.7 SECONDS (11.7-14.9)
[2020-11-09 06:28] LABS: International Normalized Ratio 4.4
--- NOTE | 2020-11-09 07:32 | PN_ITS ---
Patient Problems: Active and Suspected Problems (Last Reviewed 08/27/20 @ 01:[address] Naveed Rick MD) Abnormal cardiac enzyme level (Acute) Acute hypoxic respiratory failure (Acute) Acute bilateral COVID-19 pneumonia (Acute) Reason for Visit: Follow-up for acute hypoxic respiratory failure secondary to COVID-19 pneumonia. Objective: No fever or chills. Patient on 5 to 7 L of oxygen. Patient has mild dry cough. Denies shortness of breath. Denies dysuria or new lower urinary tract symptoms. No diarrhea or constipation or GI bleed. Physical exam General: Alert, Oriented x3, Cooperative HEENT: Atraumatic, PERRLA, EOMI, Normocephalic Oral: No Gingival or Mucosal Lesions/ Ulcerations Neck: Supple, No JVD, Negative Carotid Bruits Lungs: Air entry diminished in bilateral lungs. No crepitation/rhonchi Cardiovascular: A. fib, irregular rate and rhythm, Normal S1, Normal S2, No murmurs Abdomen: Bowel Sounds Present, Soft, Non Tender, Non-Distended : No renal angle tenderness. No suprapubic tenderness. Extremities: Chronic amputation of right hand. No edema, Capillary Refill Less than 3 Seconds Skin: No rashes, No breakdown Musculoskeletal: No Tenderness to Palpation of Joints or Extremities Neurological: Cranial nerves II-XII grossly intact, Deep Tendon Reflexes 2+/4 and Symmetrical, Neuro grossly intact Psych/Mental Status: Normal Affect, Appropriate. Vitals/I&O's: Vital Signs Temp Pulse Resp BP Pulse Ox 97.8 F 77 18 143/62 H 94 11/09/20 02:39 11/09/20 03:00 11/09/20 02:39 11/09/20 02:39 11/09/20 02:40 Oxygen Flow Rate (L/min) 5 Oxygen Delivery Method Nasal Cannula Weight: 134 lb 11.239 oz Body Mass Index (BMI) 24.7 Intake and Output for Last 24 Hours 11/07/20 11/08/20 11/09/20 23:59 23:59 23:59 Intake Total 900 / 900 1130 / 1130 240 / 240 Output Total 750 / 1050 1000 / 1000 200 / 200 Balance 150 / -150 130 / 130 40 / 40 Laboratory Results 11/09/20 05:55: PT 41.7 H, INR 4.4 H* Current Medications Acetaminophen (Acetaminophen 325 Mg Tablet) 650 mg PO Q6H PRN PRN PRN Reason: Pain Score 1-10/Temp > 100.7 F Al Hydroxide/Mg Hydroxide (Mag Hydrox/Al Hydrox/Simeth 30 Ml Udc) 15 ml PO Q6H PRN PRN PRN Reason: Heartburn, indigestion Last Admin: 11/03/20 09:59 Dose: 15 ml Documented by: Albuterol Sulfate (Albuterol Sulfate 8 Gm Inhaler (60 Puffs)) 2 puff INHALATION Q4H PRN PRN PRN Reason: Shortness of breath, wheezing Last Admin: 11/09/20 03:14 Dose: 2 puff Documented by: Amiodarone HCl (Amiodarone 200 Mg Tablet) 200 mg PO DAILY [facility] Last Admin: 11/08/20 07:58 Dose: 200 mg Documented by: Atorvastatin Calcium (Atorvastatin Calcium 20 Mg Tablet) 20 mg PO QHS [facility] Last Admin: 11/08/20 20:05 Dose: 20 mg Documented by: Carvedilol (Carvedilol 25 Mg Tablet) 25 mg PO BID [facility] Last Admin: 11/08/20 20:05 Dose: 25 mg Documented by: Clopidogrel Bisulfate (Clopidogrel Bisulfate 75 Mg Tablet) 75 mg PO DAILY [facility] Last Admin: 11/08/20 07:57 Dose: 75 mg Documented by: Dexamethasone (Dexamethasone 4 Mg Tablet) 6 mg PO DAILY [facility] Stop: 11/11/20 10:01 Last Admin: 11/08/20 07:56 Dose: 6 mg Documented by: Famotidine (Famotidine 20 Mg Tablet) 20 mg PO DAILY [facility] Last Admin: 11/08/20 07:57 Dose: 20 mg Documented by: Folic Acid (Folic Acid 1 Mg Tablet) 1 mg PO DAILY [facility] Last Admin: 11/08/20 07:57 Dose: 1 mg Documented by: Furosemide (Furosemide 40 Mg Tablet) 40 mg PO DAILY [facility] Last Admin: 11/08/20 07:57 Dose: 40 mg Documented by: Hydralazine HCl (Hydralazine 20 Mg/Ml Vial) 10 mg IV Q4H PRN PRN PRN Reason: BLOOD PRESSURE ELEVATION Last Admin: 11/02/20 22:30 Dose: 10 mg Documented by: Sodium Chloride () 250 mls @ 15 mls/hr IV .[id number] PRN PRN Reason: Saline Flush Sodium Chloride () 250 mls @ 15 mls/hr IV .[id number] PRN PRN Reason: Additional IVPB Infusion Levothyroxine Sodium (Levothyroxine 150 Mcg Tablet) 150 mcg PO DAILY [facility] Last Admin: 11/08/20 07:57 Dose: 150 mcg Documented by: Ondansetron HCl (Ondansetron 4 Mg/2 Ml Vial) 4 mg IV Q8H PRN PRN PRN Reason: NAUSEA/VOMITING Polysaccharide Iron Complex (Iron Polysaccharide Complex 150 Mg Capsule) 150 mg PO DAILY [facility] Last Admin: 11/08/20 07:58 Dose: 150 mg Documented by: Ramipril (Ramipril 10 Mg Capsule) 10 mg PO DAILY [facility] Last Admin: 11/08/20 07:57 Dose: 10 mg Documented by: Senna/Docusate Sodium (Senna/Docusate Sodium 1 Tablet) 2 tablet PO BID PRN PRN PRN Reason: Constipation Sodium Chloride (0.9% Saline Lock 10 Ml Syringe) 10 - 40 ml IV UD PRN PRN Reason: SALINE FLUSH Last Admin: 11/06/20 10:57 Dose: 10 ml Documented by: Medical Necessity - Tobacco Use Smoking Status: Former smoker Assessment/Plan All Active Problems (Last Reviewed 08/27/20 @ 01:[address] Naveed Rick MD) Abnormal cardiac enzyme level (Acute) Acute hypoxic respiratory failure (Acute) Acute bilateral COVID-19 pneumonia (Acute) This is a 80 years old male patient was admitted through ER for shortness of breath, cough and weakness for 3 to 4 days, found to have extensive bilateral infiltrate on chest x-ray more prominent on the right lung and he tested positive for COVID-19 antigen, consistent with acute bilateral COVID-19 pneumonia complicated by acute hypoxic respiratory failure. #1 acute bilateral COVID-19 pneumonia: On 6 L of oxygen. Afebrile. Continue p.o Decadron. Completed IV remdesivir on 11/06. Blood pressure in acceptable limits. Comanaged with component lab tech and ID. #2 acute hypoxic respiratory failure secondary to acute bilateral COVID-19 p neumonia. Oxygenation is getting better. #3 Flat and indeterminate troponin due to demand ischemia: EKG without acute ischemic changes. Patient remains without any chest pain. #4 stage III chronic kidney disease: Creatinine fluctuates between 1.2 to 1.7 mg/dL. Admission creatinine is 1.68. BUN elevated as patient is on Lasix. #5 paroxysmal atrial fibrillation: Heart rate is controlled. Patient is still in A. fib. continue amiodarone and Coreg for rate control. Coumadin on hold for supratherapeutic INR. Monitor INR daily. #6 CAD status post stents: EKG reviewed as above. continue Coreg, Altace, Crestor and Coumadin. #7 Reported COPD: He is on albuterol inhaler as needed. As per superintendent measurement, previous PFT not consistent with diagnosis of COPD, cannot exclude asthma as patient is on Decadron. Further follow-up pulmonary clinic after discharge. #8 Anemia of chronic anemia: H&H is stable. Between 9 g per 10 g%. #9 chronic diastolic CHF: Stable, compensated. Continue Coreg and Altace, continue Lasix. #10 hypothyroidism: Continue levothyroxine. #11 history of ascending aortic dissection: Status post repair, stable, no acute issues. #12 CODE STATUS: Full code, discussed with the patient. #13 DVT prophylaxis: INR 4.4. CODE STATUS full code. Inpatient E&M: 87714 Subs Hosp L2
[2020-11-09 07:43] LABS: Absolute Lymphocyte Count 0.47 X10^3/uL (0.83-4.51); Absolute Neutrophil Count 9.3 X10^3/uL (2.0-7.7); Basophil# 0.03 X10^3/uL; Basophil% 0.3 % (0-1); Differential Indicated SCAN CRITERIA MET; Hematocrit 27.6 % (40-54); Hemoglobin 8.6 g/dL (13.0-16.5); Lymphocyte # 0.47 X10^3/ul (4.0); Lymphocyte % 4.4 % (19-41); Mean Corp Hgb Conc 31.2 g/dL (32-36); Mean Corpuscular Hgb 27.7 pg (27.0-32.0); Mean Corpuscular Volume 88.7 fL (80-94); Mean Platelet Vol. 11.6 fl (6.2-12.0); Monocyte% 6.5 % (0-10); NRBC Flagged by Analyzer 0 % (0-5); Neutrophil # 9.29 X10^3/uL (2.7-7.7); Neutrophil % 85.9 % (47-70); POSITIVE DIFFERENTIAL YES; Platelet Count 129 K/mm3 (150-450); RBC Distribution Width CV 15.8 % (11.6-14.6); RBC Distribution Width SD 50.5 fl (35.1-43.9); Red Blood Count 3.11 M/mm3 (4.6-6.2); White Blood Count 10.8 K/mm3 (4.4-11.0)
[2020-11-09 07:51] LABS: Anion Gap 6 (5-15); BUN 57 mg/dL (7-18); BUN/Creat Ratio 48.7 RATIO (10-20); Calcium,Total 7.5 mg/dL (8.5-10.1); Chloride 106 mmol/L (98-107); Creatinine, Serum 1.17 mg/dL (0.70-1.30); EST Glomerular Filtration Rate 64 mL/min (>60); Est Glom Filt Rate - Afr Amer 77 mL/min (>60); Estimated Creatinine Clearance 37.87 ml/min; Glucose 120 mg/dL (74-106); Potassium 4.2 mmol/L (3.5-5.1); Sodium Level 144 mmol/L (136-145)
--- NOTE | 2020-11-09 08:15 | PCM.PN.PUL ---
Patient Problems: Active and Suspected Problems (Last Reviewed 08/27/20 @ 01:[address] Naveed Rick MD) Abnormal cardiac enzyme level (Acute) Acute hypoxic respiratory failure (Acute) Acute bilateral COVID-19 pneumonia (Acute) Subjective: The patient was seen and examined at the bedside this morning. Events from the last 24 hours have been reviewed. The patient is currently afebrile, hemodynamically stable and maintaining appropriate oxygen saturations on 5 L/min via nasal cannula. The patient has completed a treatment course of remdesivir and remains on Decadron daily. INR supratherapeutic this morning at 4.4. The patient denies any shortness of breath, but does report a nonproductive cough. Objective: The patient's most recent lab work, culture data and imaging studies have all been personally reviewed. Coronavirus rapid antigen testing was positive on November 02. - Physical Exam Vitals/I&O's: Vital Signs Temp Pulse Resp BP Pulse Ox 97.8 F 77 18 143/62 H 94 11/09/20 02:39 11/09/20 03:00 11/09/20 02:39 11/09/20 02:39 11/09/20 02:40 Oxygen Flow Rate (L/min) 5 Oxygen Delivery Method Nasal Cannula Weight: 134 lb 11.239 oz Body Mass Index (BMI) 24.7 Intake and Output for Last 24 Hours 11/07/20 11/08/20 11/09/20 23:59 23:59 23:59 Intake Total 900 / 900 1130 / 1130 240 / 240 Output Total 750 / 1050 1000 / 1000 200 / 200 Balance 150 / -150 130 / 130 40 / 40 General: Alert, Cooperative, No apparent distress, - - Sitting in bedside recliner. HEENT: Atraumatic, Normocephalic Oral: No Gingival or Mucosal Lesions/ Ulcerations Neck: Supple, No Nodes, Trachea Midline Lungs: No rhonchi, No wheeze, No rales, Diminished Cardiovascular: Regular rate, Regular Rhythm Abdomen: Bowel Sounds Present, Soft, Non Tender Extremities: No clubbing, No cyanosis, No edema Skin: No breakdown Musculoskeletal: No Tenderness to Palpation of Joints or Extremities Lymphatic: No Cervical, Supraclavicular, or Inguinal Adenopathy Neurological: Cranial nerves II-XII grossly intact, Neuro grossly intact Psych/Mental Status: Normal Affect, Appropriate Labs (Last 48 Hours) 11/08/20 11/08/20 11/09/20 05:40 05:40 05:55 WBC RBC Hgb Hct MCV MCH MCHC RDW Std Deviation RDW Coeff of Ej Plt Count MPV Immature Gran % (Auto) Neut % (Auto) Lymph % (Auto) [place] % (Auto) Eos % (Auto) Baso % (Auto) Absolute Neuts (auto) Absolute Lymphs (auto) Nucleated RBC % Differential Comment PT 35.6 H 41.7 H INR 3.6 H* 4.4 H* Sodium 143 Potassium 3.9 Chloride 107 Carbon Dioxide 32.0 Anion Gap 4 L BUN 53 H Creatinine 1.16 Estim Creat Clear Calc 38.20 Est GFR (MDRD) Af Amer 78 Est GFR (MDRD) Non-Af 65 BUN/Creatinine Ratio 45.7 H Glucose 109 H Calcium 8.0 L 11/09/20 11/09/20 05:55 05:55 WBC 10.8 RBC 3.11 L Hgb 8.6 L Hct 27.6 L MCV 88.7 MCH 27.7 MCHC 31.2 L RDW Std Deviation 50.5 H RDW Coeff of Ej 15.8 H Plt Count 129 L MPV 11.6 Immature Gran % (Auto) 2.900 H Neut % (Auto) 85.9 H Lymph % (Auto) 4.4 L [place] % (Auto) 6.5 Eos % (Auto) 0.0 Baso % (Auto) 0.3 Absolute Neuts (auto) 9.3 H Absolute Lymphs (auto) 0.47 L Nucleated RBC % 0 Differential Comment COMMENT PT INR Sodium 144 Potassium 4.2 Chloride 106 Carbon Dioxide 32.0 Anion Gap 6 BUN 57 H Creatinine 1.17 Estim Creat Clear Calc 37.87 Est GFR (MDRD) Af Amer 77 Est GFR (MDRD) Non-Af 64 BUN/Creatinine Ratio 48.7 H Glucose 120 H Calcium 7.5 L Clinical Impression(s) from Imaging Studies Chest X-Ray 11/02/20 11:35 IMPRESSION: Diffuse bilateral airspace disease worse in the right hemithorax. This may represent either diffuse bilateral pulmonary infiltrates or edema. Electronically Signed: Milan Cao MD at 12:11 EST , Service support , Chest CTA 11/02/20 12:20 IMPRESSION: No evidence of pulmonary embolism. Diffuse bilateral groundglass appearance with areas of confluence was in the right hemithorax superimposed on chronic interstitial scarring and honeycombing. Stable dilatation of the distal portion of the thoracic aorta as it enters the diaphragmatic hiatus with evidence of a prior dissection. Electronically Signed: Milan Cao MD at 12:44 EST , Service support , Current Medications Acetaminophen (Acetaminophen 325 Mg Tablet) 650 mg PO Q6H PRN PRN PRN Reason: Pain Score 1-10/Temp > 100.7 F Al Hydroxide/Mg Hydroxide (Mag Hydrox/Al Hydrox/Simeth 30 Ml Udc) 15 ml PO Q6H PRN PRN PRN Reason: Heartburn, indigestion Last Admin: 11/03/20 09:59 Dose: 15 ml Documented by: Albuterol Sulfate (Albuterol Sulfate 8 Gm Inhaler (60 Puffs)) 2 puff INHALATION Q4H PRN PRN PRN Reason: Shortness of breath, wheezing Last Admin: 11/09/20 03:14 Dose: 2 puff Documented by: Amiodarone HCl (Amiodarone 200 Mg Tablet) 200 mg PO DAILY [facility] Last Admin: 11/08/20 07:58 Dose: 200 mg Documented by: Atorvastatin Calcium (Atorvastatin Calcium 20 Mg Tablet) 20 mg PO QHS [facility] Last Admin: 11/08/20 20:05 Dose: 20 mg Documented by: Carvedilol (Carvedilol 25 Mg Tablet) 25 mg PO BID [facility] Last Admin: 11/08/20 20:05 Dose: 25 mg Documented by: Clopidogrel Bisulfate (Clopidogrel Bisulfate 75 Mg Tablet) 75 mg PO DAILY [facility] Last Admin: 11/08/20 07:57 Dose: 75 mg Documented by: Dexamethasone (Dexamethasone 4 Mg Tablet) 6 mg PO DAILY [facility] Stop: 11/11/20 10:01 Last Admin: 11/08/20 07:56 Dose: 6 mg Documented by: Famotidine (Famotidine 20 Mg Tablet) 20 mg PO DAILY [facility] Last Admin: 11/08/20 07:57 Dose: 20 mg Documented by: Folic Acid (Folic Acid 1 Mg Tablet) 1 mg PO DAILY [facility] Last Admin: 11/08/20 07:57 Dose: 1 mg Documented by: Furosemide (Furosemide 40 Mg Tablet) 40 mg PO DAILY [facility] Last Admin: 11/08/20 07:57 Dose: 40 mg Documented by: Hydralazine HCl (Hydralazine 20 Mg/Ml Vial) 10 mg IV Q4H PRN PRN PRN Reason: BLOOD PRESSURE ELEVATION Last Admin: 11/02/20 22:30 Dose: 10 mg Documented by: Sodium Chloride () 250 mls @ 15 mls/hr IV .[id number] PRN PRN Reason: Saline Flush Sodium Chloride () 250 mls @ 15 mls/hr IV .[id number] PRN PRN Reason: Additional IVPB Infusion Levothyroxine Sodium (Levothyroxine 150 Mcg Tablet) 150 mcg PO DAILY [facility] Last Admin: 11/08/20 07:57 Dose: 150 mcg Documented by: Ondansetron HCl (Ondansetron 4 Mg/2 Ml Vial) 4 mg IV Q8H PRN PRN PRN Reason: NAUSEA/VOMITING Polysaccharide Iron Complex (Iron Polysaccharide Complex 150 Mg Capsule) 150 mg PO DAILY [facility] Last Admin: 11/08/20 07:58 Dose: 150 mg Documented by: Ramipril (Ramipril 10 Mg Capsule) 10 mg PO DAILY [facility] Last Admin: 11/08/20 07:57 Dose: 10 mg Documented by: Senna/Docusate Sodium (Senna/Docusate Sodium 1 Tablet) 2 tablet PO BID PRN PRN PRN Reason: Constipation Sodium Chloride (0.9% Saline Lock 10 Ml Syringe) 10 - 40 ml IV UD PRN PRN Reason: SALINE FLUSH Last Admin: 11/06/20 10:57 Dose: 10 ml Documented by: Medical Necessity - Tobacco Use Smoking Status: Former smoker Assessment/Plan All Active Problems (Last Reviewed 08/27/20 @ 01:[address] Naveed Rick MD) Abnormal cardiac enzyme level (Acute) Acute hypoxic respiratory failure (Acute) Acute bilateral COVID-19 pneumonia (Acute) RECOMMENDATIONS: 1. Continue to wean supplemental oxygen to maintain saturations at or above 90%. 2. Continue Decadron to complete treatment course. 3. Continue gentle diuresis as tolerated by hemodynamics and renal function. 4. Encourage incentive spirometer use and mobilize patient as tolerated. IMPRESSIONS: 1. Acute hypoxic respiratory failure secondary to COVID-19 pneumonia The patient appears to be slowly improving. He has completed his treatment course of remdesivir and remains on Decadron. Plan to continue gentle diuresis as well as tolerated by hemodynamics and renal function. Wean supplemental oxygen to maintain saturations at or above 90%. Encourage incentive spirometer use and mobilize patient as tolerated. 2. Chronic diastolic CHF/history of ascending aortic dissection status post repair/paroxysmal A. fib/hypertensive urgency The patient appears stable from a cardiac perspective. Plan to continue baseline cardiac medications. Continue to monitor INR daily. 3. CKD stage III/chronic anemia/hypothyroidism/advanced age/reported COPD Complicates care, management, recovery and prognosis. This note was generated with [employer] dictation software. It may contain incorrect words, spelling, and punctuation that were not noted in checking the note before signing. Inpatient E&M: 15568 Subs Hosp L2
[2020-11-09] MEDS: dexAMETHasone 4 MG Tablet 6 MG PO (10:50)
[2020-11-09] MEDS: Famotidine 20 MG Tablet PO (10:51)
[2020-11-09] MEDS: Furosemide 40 MG Tablet PO (10:51)
[2020-11-09] MEDS: Carvedilol 25 MG Tablet PO ×2 (10:51→20:30)
[2020-11-09] MEDS: Folic Acid 1 MG Tablet PO (10:51)
[2020-11-09] MEDS: Clopidogrel Bisulfate 75 MG Tablet PO (10:51)
[2020-11-09] MEDS: Amiodarone 200 MG Tablet PO (10:51)
[2020-11-09] MEDS: Iron Polysaccharide Complex 150 MG CAPSULE PO (10:52)
[2020-11-09] MEDS: Ramipril 10 MG Capsule PO (10:52)
--- NOTE | 2020-11-09 11:39 | CASEMGMT ---
Addendum entered by Paresh Gardner 11/09/20 11:59: [facility] can accept patient with anticipated dc tomorrow.They are aware of + COVID-19 testing. [facility] referral cancelled. Ela VILLANUEVA Original Note: RN CM Note: intro role of CM to patient via phone. Discusse PT/OT notes and Home care with SN/PT/OT. The patient is agreeable to have HHC come to home. Reviewed List with pt including area HHC and quality indicators. Pt would like [facility] first and if they are unable has no second preference. -Call to [facility]. Jessi will have case reviewed as pt is covid 19+. -[facility] referral also faxed to [facility] for review. PH: FX: [phone] -also discussed home oxygen with patient. He has MCR and [employer] is secondary. Reviewed list of DME providers and let pt know that [employer] works with [facility]. Pt would like to have [facility] provide DME. Home oxygen testing to be completed tomorrow. Ela VILLANUEVA
[2020-11-09] MEDS: Atorvastatin Calcium 20 MG Tablet PO (20:30)
[2020-11-09] MEDS: 0.9% Saline Lock 10 ML Syringe IV (20:31)
[2020-11-10] VITALS (8 sets, daily range): BP systolic 128–158; BP diastolic 54–69; PULSE 70–77; RESP 18–20; TEMP 36.3–36.6; O2SAT 89–99
[2020-11-10 05:25] LABS: Absolute Lymphocyte Count 0.44 X10^3/uL (0.83-4.51); Absolute Neutrophil Count 7.7 X10^3/uL (2.0-7.7); Basophil# 0.01 X10^3/uL; Basophil% 0.1 % (0-1); Hematocrit 26.9 % (40-54); Hemoglobin 8.1 g/dL (13.0-16.5); Lymphocyte # 0.44 X10^3/ul (4.0); Lymphocyte % 4.9 % (19-41); Mean Corp Hgb Conc 30.1 g/dL (32-36); Mean Corpuscular Hgb 27.2 pg (27.0-32.0); Mean Corpuscular Volume 90.3 fL (80-94); Mean Platelet Vol. 10.3 fl (6.2-12.0); Monocyte# 0.45 X10^3/uL; NRBC Flagged by Analyzer 0 % (0-5); Neutrophil # 7.65 X10^3/uL (2.7-7.7); Neutrophil % 85.1 % (47-70); POSITIVE DIFFERENTIAL YES; Platelet Count 118 K/mm3 (150-450); RBC Distribution Width CV 15.9 % (11.6-14.6); RBC Distribution Width SD 52.9 fl (35.1-43.9); Red Blood Count 2.98 M/mm3 (4.6-6.2)
[2020-11-10 05:30] LABS: Differential Indicated SCAN CRITERIA MET
--- NOTE | 2020-11-10 07:31 | PN_ITS ---
Patient Problems: Active and Suspected Problems (Last Reviewed 08/27/20 @ 01:[address] Naveed Rick MD) Abnormal cardiac enzyme level (Acute) Acute hypoxic respiratory failure (Acute) Acute bilateral COVID-19 pneumonia (Acute) Subjective: The patient was seen and examined at the bedside this morning. Events from the last 24 hours have been reviewed. The patient is currently afebrile, hemodynamically stable and maintaining appropriate oxygen saturations on 5 L/min via nasal cannula. INR remains supratherapeutic at 3.6. Objective: The patient's most recent lab work, culture data and imaging studies have all been personally reviewed. Coronavirus rapid antigen testing was positive on November 02. - Physical Exam Vitals/I&O's: Vital Signs Temp Pulse Resp BP Pulse Ox 97.6 F L 70 18 158/69 H 97 11/10/20 02:40 11/10/20 02:40 11/10/20 02:40 11/10/20 02:40 11/10/20 02:40 Oxygen Flow Rate (L/min) 5 Oxygen Delivery Method Nasal Cannula Weight: 134 lb 4 oz Body Mass Index (BMI) 24.7 Intake and Output for Last 24 Hours 11/08/20 11/09/20 11/10/20 23:59 23:59 23:59 Intake Total 1130 / 1130 240 / 240 Output Total 1000 / 1000 1050 / 1050 350 / 350 Balance 130 / 130 -810 / -810 -350 / -350 General: Alert, Cooperative, No apparent distress HEENT: Atraumatic, Normocephalic Oral: Moist Mucosa, No Gingival or Mucosal Lesions/ Ulcerations Neck: Supple, No Nodes, Trachea Midline Lungs: No rhonchi, No wheeze, No rales, Diminished Cardiovascular: Regular rate, Regular Rhythm Abdomen: Bowel Sounds Present, Soft, Non Tender Extremities: No clubbing, No cyanosis, No edema Skin: No breakdown Musculoskeletal: No Tenderness to Palpation of Joints or Extremities Lymphatic: No Cervical, Supraclavicular, or Inguinal Adenopathy Neurological: Neuro grossly intact Psych/Mental Status: Normal Affect, Appropriate Labs (Last 48 Hours) 11/09/20 11/09/20 11/09/20 05:55 05:55 05:55 WBC 10.8 RBC 3.11 L Hgb 8.6 L Hct 27.6 L MCV 88.7 MCH 27.7 MCHC 31.2 L RDW Std Deviation 50.5 H RDW Coeff of Ej 15.8 H Plt Count 129 L MPV 11.6 Immature Gran % (Auto) 2.900 H Neut % (Auto) 85.9 H Lymph % (Auto) 4.4 L [place] % (Auto) 6.5 Eos % (Auto) 0.0 Baso % (Auto) 0.3 Absolute Neuts (auto) 9.3 H Absolute Lymphs (auto) 0.47 L Nucleated RBC % 0 Differential Comment COMMENT PT 41.7 H INR 4.4 H* Sodium 144 Potassium 4.2 Chloride 106 Carbon Dioxide 32.0 Anion Gap 6 BUN 57 H Creatinine 1.17 Estim Creat Clear Calc 37.87 Est GFR (MDRD) Af Amer 77 Est GFR (MDRD) Non-Af 64 BUN/Creatinine Ratio 48.7 H Glucose 120 H Calcium 7.5 L 11/10/20 04:48 WBC 9.0 RBC 2.98 L Hgb 8.1 L Hct 26.9 L MCV 90.3 MCH 27.2 MCHC 30.1 L RDW Std Deviation 52.9 H RDW Coeff of Ej 15.9 H Plt Count 118 L MPV 10.3 Immature Gran % (Auto) 4.900 H Neut % (Auto) 85.1 H Lymph % (Auto) 4.9 L [place] % (Auto) 5.0 Eos % (Auto) 0.0 Baso % (Auto) 0.1 Absolute Neuts (auto) 7.7 Absolute Lymphs (auto) 0.44 L Nucleated RBC % 0 Differential Comment PT INR Sodium Potassium Chloride Carbon Dioxide Anion Gap BUN Creatinine Estim Creat Clear Calc Est GFR (MDRD) Af Amer Est GFR (MDRD) Non-Af BUN/Creatinine Ratio Glucose Calcium Clinical Impression(s) from Imaging Studies Chest X-Ray 11/02/20 11:35 IMPRESSION: Diffuse bilateral airspace disease worse in the right hemithorax. This may represent either diffuse bilateral pulmonary infiltrates or edema. Electronically Signed: Milan Cao MD at 12:11 EST , Service support , Chest CTA 11/02/20 12:20 IMPRESSION: No evidence of pulmonary embolism. Diffuse bilateral groundglass appearance with areas of confluence was in the right hemithorax superimposed on chronic interstitial scarring and honeycombing. Stable dilatation of the distal portion of the thoracic aorta as it enters the diaphragmatic hiatus with evidence of a prior dissection. Electronically Signed: Milan Cao MD at 12:44 EST , Service support , Current Medications Acetaminophen (Acetaminophen 325 Mg Tablet) 650 mg PO Q6H PRN PRN PRN Reason: Pain Score 1-10/Temp > 100.7 F Al Hydroxide/Mg Hydroxide (Mag Hydrox/Al Hydrox/Simeth 30 Ml Udc) 15 ml PO Q6H PRN PRN PRN Reason: Heartburn, indigestion Last Admin: 11/03/20 09:59 Dose: 15 ml Documented by: Albuterol Sulfate (Albuterol Sulfate 8 Gm Inhaler (60 Puffs)) 2 puff INHALATION Q4H PRN PRN PRN Reason: Shortness of breath, wheezing Last Admin: 11/09/20 10:54 Dose: 2 puff Documented by: Amiodarone HCl (Amiodarone 200 Mg Tablet) 200 mg PO DAILY [facility] Last Admin: 11/09/20 10:51 Dose: 200 mg Documented by: Atorvastatin Calcium (Atorvastatin Calcium 20 Mg Tablet) 20 mg PO QHS [facility] Last Admin: 11/09/20 20:30 Dose: 20 mg Documented by: Carvedilol (Carvedilol 25 Mg Tablet) 25 mg PO BID [facility] Last Admin: 11/09/20 20:30 Dose: 25 mg Documented by: Clopidogrel Bisulfate (Clopidogrel Bisulfate 75 Mg Tablet) 75 mg PO DAILY [facility] Last Admin: 11/09/20 10:51 Dose: 75 mg Documented by: Dexamethasone (Dexamethasone 4 Mg Tablet) 6 mg PO DAILY [facility] Stop: 11/11/20 10:01 Last Admin: 11/09/20 10:50 Dose: 6 mg Documented by: Famotidine (Famotidine 20 Mg Tablet) 20 mg PO DAILY [facility] Last Admin: 11/09/20 10:51 Dose: 20 mg Documented by: Folic Acid (Folic Acid 1 Mg Tablet) 1 mg PO DAILY [facility] Last Admin: 11/09/20 10:51 Dose: 1 mg Documented by: Furosemide (Furosemide 40 Mg Tablet) 40 mg PO DAILY [facility] Last Admin: 11/09/20 10:51 Dose: 40 mg Documented by: Hydralazine HCl (Hydralazine 20 Mg/Ml Vial) 10 mg IV Q4H PRN PRN PRN Reason: BLOOD PRESSURE ELEVATION Last Admin: 11/02/20 22:30 Dose: 10 mg Documented by: Sodium Chloride () 250 mls @ 15 mls/hr IV .[id number] PRN PRN Reason: Saline Flush Sodium Chloride () 250 mls @ 15 mls/hr IV .[id number] PRN PRN Reason: Additional IVPB Infusion Levothyroxine Sodium (Levothyroxine 150 Mcg Tablet) 150 mcg PO DAILY [facility] Last Admin: 11/08/20 07:57 Dose: 150 mcg Documented by: Ondansetron HCl (Ondansetron 4 Mg/2 Ml Vial) 4 mg IV Q8H PRN PRN PRN Reason: NAUSEA/VOMITING Polysaccharide Iron Complex (Iron Polysaccharide Complex 150 Mg Capsule) 150 mg PO DAILY [facility] Last Admin: 11/09/20 10:52 Dose: 150 mg Documented by: Ramipril (Ramipril 10 Mg Capsule) 10 mg PO DAILY [facility] Last Admin: 11/09/20 10:52 Dose: 10 mg Documented by: Senna/Docusate Sodium (Senna/Docusate Sodium 1 Tablet) 2 tablet PO BID PRN PRN PRN Reason: Constipation Sodium Chloride (0.9% Saline Lock 10 Ml Syringe) 10 - 40 ml IV UD PRN PRN Reason: SALINE FLUSH Last Admin: 11/09/20 20:31 Dose: 10 ml Documented by: Medical Necessity - Tobacco Use Smoking Status: Former smoker Assessment/Plan All Active Problems (Last Reviewed 08/27/20 @ 01:[address] Naveed Rick MD) Abnormal cardiac enzyme level (Acute) Acute hypoxic respiratory failure (Acute) Acute bilateral COVID-19 pneumonia (Acute) RECOMMENDATIONS: 1. Continue to wean supplemental oxygen to maintain saturations at or above 90%. 2. Continue Decadron to complete treatment course. 3. Continue gentle diuresis as tolerated by hemodynamics and renal function. 4. Encourage incentive spirometer use and mobilize patient as tolerated. IMPRESSIONS: 1. Acute hypoxic respiratory failure secondary to COVID-19 pneumonia The patient appears to be slowly improving. He has completed his treatment course of remdesivir and remains on Decadron. Plan to continue gentle diuresis as well as tolerated by hemodynamics and renal function. Wean supplemental oxygen to maintain saturations at or above 90%. Encourage incentive spirometer use and mobilize patient as tolerated. 2. Chronic diastolic CHF/history of ascending aortic dissection status post repair/paroxysmal A. fib/hypertensive urgency The patient appears stable from a cardiac perspective. Plan to continue baseline cardiac medications. Continue to monitor INR daily. 3. CKD stage III/chronic anemia/hypothyroidism/advanced age/reported COPD Complicates care, management, recovery and prognosis. This note was generated with [employer] dictation software. It may contain incorrect words, spelling, and punctuation that were not noted in checking the note before signing. Inpatient E&M: 26345 Subs Hosp L2
[2020-11-10 09:04] LABS: Prothrombin Time (Protime)PT. 35.9 SECONDS (11.7-14.9)
[2020-11-10 09:06] LABS: International Normalized Ratio 3.6
[2020-11-10] MEDS: dexAMETHasone 4 MG Tablet 6 MG PO (10:28)
[2020-11-10] MEDS: Iron Polysaccharide Complex 150 MG CAPSULE PO (10:29)
[2020-11-10] MEDS: Ramipril 10 MG Capsule PO (10:29)
[2020-11-10] MEDS: Amiodarone 200 MG Tablet PO (10:29)
[2020-11-10] MEDS: Folic Acid 1 MG Tablet PO (10:29)
[2020-11-10] MEDS: Carvedilol 25 MG Tablet PO ×2 (10:29→20:34)
[2020-11-10] MEDS: Furosemide 40 MG Tablet PO (10:29)
[2020-11-10] MEDS: Famotidine 20 MG Tablet PO (10:29)
[2020-11-10] MEDS: Clopidogrel Bisulfate 75 MG Tablet PO (10:30)
[2020-11-10] MEDS: Levothyroxine 150 MCG Tablet PO (10:30)
--- NOTE | 2020-11-10 11:28 | PCM.PN.HOSP ---
Patient Problems: Active and Suspected Problems (Last Reviewed 08/27/20 @ 01:[address] Naveed Rick MD) Abnormal cardiac enzyme level (Acute) Acute hypoxic respiratory failure (Acute) Acute bilateral COVID-19 pneumonia (Acute) Reason for Visit: Follow-up for acute COVID-19 pneumonia with acute hypoxic respiratory failure Objective: Patient on 7 L of oxygen. Mild occasional cough, dry. No shortness of breath at rest. Afebrile. Physical exam General: Alert, Oriented x3, Cooperative HEENT: Atraumatic, PERRLA, EOMI, Normocephalic Oral: No Gingival or Mucosal Lesions/ Ulcerations Neck: Supple, No JVD, Negative Carotid Bruits Lungs: Air entry diminished in bilateral lungs. No crepitation/rhonchi. Significant hypoxia Cardiovascular: A. fib, irregular rate and rhythm, Normal S1, Normal S2, No murmurs Abdomen: Bowel Sounds Present, Soft, Non Tender, Non-Distended : No renal angle tenderness. No suprapubic tenderness. Extremities: Chronic amputation of right hand. No edema, Capillary Refill Less than 3 Seconds Skin: No rashes, No breakdown Musculoskeletal: No Tenderness to Palpation of Joints or Extremities Neurological: Cranial nerves II-XII grossly intact, Deep Tendon Reflexes 2+/4 and Symmetrical, Neuro grossly intact Psych/Mental Status: Normal Affect, Appropriate. Vitals/I&O's: Vital Signs Temp Pulse Resp BP Pulse Ox 97.9 F 77 18 128/54 H 93 11/10/20 10:22 11/10/20 10:22 11/10/20 10:22 11/10/20 10:22 11/10/20 10:22 Oxygen Flow Rate (L/min) 7 Oxygen Delivery Method Nasal Cannula Weight: 134 lb 4 oz Body Mass Index (BMI) 24.7 Intake and Output for Last 24 Hours 11/08/20 11/09/20 11/10/20 23:59 23:59 23:59 Intake Total 1130 / 1130 240 / 240 Output Total 1000 / 1000 1050 / 1050 350 / 350 Balance 130 / 130 -810 / -810 -350 / -350 Laboratory Results 11/10/20 04:48: WBC 9.0, RBC 2.98 L, Hgb 8.1 L, Hct 26.9 L, MCV 90.3, MCH 27.2, MCHC 30.1 L, RDW Std Deviation 52.9 H, RDW Coeff of Ej 15.9 H, Plt Count 118 L, MPV 10.3, Immature Gran % (Auto) 4.900 H, Neut % (Auto) 85.1 H, Lymph % (Auto) 4.9 L, [place] % (Auto) 5.0, Eos % (Auto) 0.0, Baso % (Auto) 0.1, Absolute Neuts (auto) 7.7, Absolute Lymphs (auto) 0.44 L, Nucleated RBC % 0 11/10/20 08:11: PT 35.9 H, INR 3.6 H* Current Medications Acetaminophen (Acetaminophen 325 Mg Tablet) 650 mg PO Q6H PRN PRN PRN Reason: Pain Score 1-10/Temp > 100.7 F Al Hydroxide/Mg Hydroxide (Mag Hydrox/Al Hydrox/Simeth 30 Ml Udc) 15 ml PO Q6H PRN PRN PRN Reason: Heartburn, indigestion Last Admin: 11/03/20 09:59 Dose: 15 ml Documented by: Albuterol Sulfate (Albuterol Sulfate 8 Gm Inhaler (60 Puffs)) 2 puff INHALATION Q4H PRN PRN PRN Reason: Shortness of breath, wheezing Last Admin: 11/09/20 10:54 Dose: 2 puff Documented by: Amiodarone HCl (Amiodarone 200 Mg Tablet) 200 mg PO DAILY [facility] Last Admin: 11/10/20 10:29 Dose: 200 mg Documented by: Atorvastatin Calcium (Atorvastatin Calcium 20 Mg Tablet) 20 mg PO QHS [facility] Last Admin: 11/09/20 20:30 Dose: 20 mg Documented by: Calamine/Phenol (Menthol/Lanolin/Calamine/Znox 113 Gm Tube) 1 applic TOPICAL BID [facility]; Protocol Carvedilol (Carvedilol 25 Mg Tablet) 25 mg PO BID [facility] Last Admin: 11/10/20 10:29 Dose: 25 mg Documented by: Clopidogrel Bisulfate (Clopidogrel Bisulfate 75 Mg Tablet) 75 mg PO DAILY [facility] Last Admin: 11/10/20 10:30 Dose: 75 mg Documented by: Dexamethasone (Dexamethasone 4 Mg Tablet) 6 mg PO DAILY [facility] Stop: 11/11/20 10:01 Last Admin: 11/10/20 10:28 Dose: 6 mg Documented by: Famotidine (Famotidine 20 Mg Tablet) 20 mg PO DAILY [facility] Last Admin: 11/10/20 10:29 Dose: 20 mg Documented by: Folic Acid (Folic Acid 1 Mg Tablet) 1 mg PO DAILY [facility] Last Admin: 11/10/20 10:29 Dose: 1 mg Documented by: Furosemide (Furosemide 40 Mg Tablet) 40 mg PO DAILY [facility] Last Admin: 11/10/20 10:29 Dose: 40 mg Documented by: Hydralazine HCl (Hydralazine 20 Mg/Ml Vial) 10 mg IV Q4H PRN PRN PRN Reason: BLOOD PRESSURE ELEVATION Last Admin: 11/02/20 22:30 Dose: 10 mg Documented by: Sodium Chloride () 250 mls @ 15 mls/hr IV .[id number] PRN PRN Reason: Saline Flush Sodium Chloride () 250 mls @ 15 mls/hr IV .[id number] PRN PRN Reason: Additional IVPB Infusion Levothyroxine Sodium (Levothyroxine 150 Mcg Tablet) 150 mcg PO DAILY [facility] Last Admin: 11/10/20 10:30 Dose: 150 mcg Documented by: Ondansetron HCl (Ondansetron 4 Mg/2 Ml Vial) 4 mg IV Q8H PRN PRN PRN Reason: NAUSEA/VOMITING Polysaccharide Iron Complex (Iron Polysaccharide Complex 150 Mg Capsule) 150 mg PO DAILY [facility] Last Admin: 11/10/20 10:29 Dose: 150 mg Documented by: Ramipril (Ramipril 10 Mg Capsule) 10 mg PO DAILY [facility] Last Admin: 11/10/20 10:29 Dose: 10 mg Documented by: Senna/Docusate Sodium (Senna/Docusate Sodium 1 Tablet) 2 tablet PO BID PRN PRN PRN Reason: Constipation Sodium Chloride (0.9% Saline Lock 10 Ml Syringe) 10 - 40 ml IV UD PRN PRN Reason: SALINE FLUSH Last Admin: 11/09/20 20:31 Dose: 10 ml Documented by: STROKE Vital Signs/Narrative: Vital Signs Temp Pulse Resp BP Pulse Ox 11/10/20 10:22 97.9 F 77 18 128/54 H 93 Medical Necessity - Tobacco Use Smoking Status: Former smoker Assessment/Plan All Active Problems (Last Reviewed 08/27/20 @ 01:[address] Naveed Rick MD) Abnormal cardiac enzyme level (Acute) Acute hypoxic respiratory failure (Acute) Acute bilateral COVID-19 pneumonia (Acute) This is a 80 years old male patient was admitted through ER for shortness of breath, cough and weakness for 3 to 4 days, found to have extensive bilateral infiltrate on chest x-ray more prominent on the right lung and he tested positive for COVID-19 antigen, consistent with acute bilateral COVID-19 pneumonia complicated by acute hypoxic respiratory failure. #1 acute bilateral COVID-19 pneumonia: Continue p.o Decadron. Completed IV remdesivir on 11/06. Blood pressure in acceptable limits. Comanaged with ladle puller and ID. 11/10: On 7 L of oxygen. Did not require any BiPAP. #2 acute hypoxic respiratory failure secondary to acute bilateral COVID-19 pneumonia. Oxygen requirement fluctuates. #3 Flat and indeterminate troponin due to demand ischemia: EKG without acute ischemic changes. Patient remains without any chest pain. #4 stage III chronic kidney disease: Creatinine fluctuates between 1.2 to 1.7 mg/dL. Admission creatinine is 1.68. BUN elevated as patient is on Lasix. 11/10: BUN/creatinine appears to stable, last one 1.17 #5 paroxysmal atrial fibrillation: Heart rate is controlled. Patient is still in A. fib. continue amiodarone and Coreg for rate control. Coumadin on hold for supratherapeutic INR. Monitor INR daily. #6 CAD status post stents: EKG reviewed as above. continue Coreg, Altace, Crestor and Coumadin. #7 Reported COPD: He is on albuterol inhaler as needed. As per tow car driver, previous PFT not consistent with diagnosis of COPD, cannot exclude asthma as patient is on Decadron. Further follow-up pulmonary clinic after discharge. #8 Anemia of chronic anemia: H&H is stable. Between 9 g per 10 g%. #9 chronic diastolic CHF: Stable, compensated. Continue Coreg and Altace, continue Lasix. #10 hypothyroidism: Continue levothyroxine. #11 history of ascending aortic dissection: Status post repair, stable, no acute issues. #12 CODE STATUS: Full code, discussed with the patient. #13 DVT prophylaxis: INR 4.4. 11/10 INR 3.6. Continue to hold Coumadin. Monitor INR daily. CODE STATUS full code. Inpatient E&M: 90518 Subs Hosp L2
[2020-11-10] MEDS: Menthol/Lanolin/Calamine/Znox 113 GM Tube 1 APPLIC TOPICAL ×2 (13:51→20:33)
--- NOTE | 2020-11-10 16:47 | CPS ---
IS was given to patient by nurse
[2020-11-10] MEDS: Atorvastatin Calcium 20 MG Tablet PO (20:34)
[2020-11-11] VITALS (9 sets, daily range): BP systolic 126–141; BP diastolic 53–60; PULSE 70–89; RESP 16–18; TEMP 36.5–37.2; O2SAT 88–98
[2020-11-11 07:06] LABS: Prothrombin Time (Protime)PT. 41.9 SECONDS (11.7-14.9)
[2020-11-11 07:08] LABS: International Normalized Ratio 4.4
--- NOTE | 2020-11-11 07:20 | PCM.PN.PUL ---
Patient Problems: Active and Suspected Problems (Last Reviewed 08/27/20 @ 01:[address] Naveed Rick MD) Abnormal cardiac enzyme level (Acute) Acute hypoxic respiratory failure (Acute) Acute bilateral COVID-19 pneumonia (Acute) Subjective: The patient was seen and examined at the bedside this morning. Events from the last 24 hours have been reviewed. The patient is currently afebrile, hemodynamically stable and maintaining appropriate oxygen saturations on 5 L/min via nasal cannula. INR remains elevated at 4.4 this morning. The patient is anxious to be discharged home. Objective: The patient's most recent lab work, culture data and imaging studies have all been personally reviewed. Coronavirus rapid antigen testing was positive on November 02. - Physical Exam Vitals/I&O's: Vital Signs Temp Pulse Resp BP Pulse Ox 97.7 F L 70 16 141/53 H 93 11/11/20 02:40 11/11/20 02:40 11/11/20 02:40 11/11/20 02:40 11/11/20 05:47 Oxygen Flow Rate (L/min) 5 Oxygen Delivery Method Nasal Cannula Weight: 136 lb 10.986 oz Body Mass Index (BMI) 24.7 Intake and Output for Last 24 Hours 11/09/20 11/10/20 11/11/20 23:59 23:59 23:59 Intake Total 240 / 240 450 / 450 500 / 500 Output Total 1050 / 1050 675 / 675 825 / 825 Balance -810 / -810 -225 / -225 -325 / -325 General: Alert, Cooperative HEENT: Atraumatic, Normocephalic Oral: Moist Mucosa, No Gingival or Mucosal Lesions/ Ulcerations Neck: Supple, No Nodes, Trachea Midline Lungs: No rhonchi, No wheeze, No rales, Diminished Cardiovascular: Regular rate, Regular Rhythm Abdomen: Bowel Sounds Present, Soft, Non Tender Extremities: No clubbing, No cyanosis, No edema Skin: No breakdown Musculoskeletal: No Muscle Wasting Lymphatic: No Cervical, Supraclavicular, or Inguinal Adenopathy Neurological: Cranial nerves II-XII grossly intact, Neuro grossly intact Psych/Mental Status: Normal Affect, Appropriate Labs (Last 48 Hours) 11/09/20 11/09/20 11/10/20 05:55 05:55 04:48 WBC 10.8 9.0 RBC 3.11 L 2.98 L Hgb 8.6 L 8.1 L Hct 27.6 L 26.9 L MCV 88.7 90.3 MCH 27.7 27.2 MCHC 31.2 L 30.1 L RDW Std Deviation 50.5 H 52.9 H RDW Coeff of Ej 15.8 H 15.9 H Plt Count 129 L 118 L MPV 11.6 10.3 Immature Gran % (Auto) 2.900 H 4.900 H Neut % (Auto) 85.9 H 85.1 H Lymph % (Auto) 4.4 L 4.9 L [place] % (Auto) 6.5 5.0 Eos % (Auto) 0.0 0.0 Baso % (Auto) 0.3 0.1 Absolute Neuts (auto) 9.3 H 7.7 Absolute Lymphs (auto) 0.47 L 0.44 L Nucleated RBC % 0 0 Differential Comment COMMENT PT INR Sodium 144 Potassium 4.2 Chloride 106 Carbon Dioxide 32.0 Anion Gap 6 BUN 57 H Creatinine 1.17 Estim Creat Clear Calc 37.87 Est GFR (MDRD) Af Amer 77 Est GFR (MDRD) Non-Af 64 BUN/Creatinine Ratio 48.7 H Glucose 120 H Calcium 7.5 L 11/10/20 11/11/20 08:11 05:50 WBC RBC Hgb Hct MCV MCH MCHC RDW Std Deviation RDW Coeff of Ej Plt Count MPV Immature Gran % (Auto) Neut % (Auto) Lymph % (Auto) [place] % (Auto) Eos % (Auto) Baso % (Auto) Absolute Neuts (auto) Absolute Lymphs (auto) Nucleated RBC % Differential Comment PT 35.9 H 41.9 H INR 3.6 H* 4.4 H* Sodium Potassium Chloride Carbon Dioxide Anion Gap BUN Creatinine Estim Creat Clear Calc Est GFR (MDRD) Af Amer Est GFR (MDRD) Non-Af BUN/Creatinine Ratio Glucose Calcium Clinical Impression(s) from Imaging Studies Chest X-Ray 11/02/20 11:35 IMPRESSION: Diffuse bilateral airspace disease worse in the right hemithorax. This may represent either diffuse bilateral pulmonary infiltrates or edema. Electronically Signed: Milan Cao MD at 12:11 EST , Service support , Chest CTA 11/02/20 12:20 IMPRESSION: No evidence of pulmonary embolism. Diffuse bilateral groundglass appearance with areas of confluence was in the right hemithorax superimposed on chronic interstitial scarring and honeycombing. Stable dilatation of the distal portion of the thoracic aorta as it enters the diaphragmatic hiatus with evidence of a prior dissection. Electronically Signed: Milan Cao MD at 12:44 EST , Service support , Current Medications Acetaminophen (Acetaminophen 325 Mg Tablet) 650 mg PO Q6H PRN PRN PRN Reason: Pain Score 1-10/Temp > 100.7 F Al Hydroxide/Mg Hydroxide (Mag Hydrox/Al Hydrox/Simeth 30 Ml Udc) 15 ml PO Q6H PRN PRN PRN Reason: Heartburn, indigestion Last Admin: 11/03/20 09:59 Dose: 15 ml Documented by: Albuterol Sulfate (Albuterol Sulfate 8 Gm Inhaler (60 Puffs)) 2 puff INHALATION Q4H PRN PRN PRN Reason: Shortness of breath, wheezing Last Admin: 11/09/20 10:54 Dose: 2 puff Documented by: Amiodarone HCl (Amiodarone 200 Mg Tablet) 200 mg PO DAILY [facility] Last Admin: 11/10/20 10:29 Dose: 200 mg Documented by: Atorvastatin Calcium (Atorvastatin Calcium 20 Mg Tablet) 20 mg PO QHS [facility] Last Admin: 11/10/20 20:34 Dose: 20 mg Documented by: Calamine/Phenol (Menthol/Lanolin/Calamine/Znox 113 Gm Tube) 1 applic TOPICAL BID [facility]; Protocol Last Admin: 11/10/20 20:33 Dose: 1 applicatio Documented by: Carvedilol (Carvedilol 25 Mg Tablet) 25 mg PO BID [facility] Last Admin: 11/10/20 20:34 Dose: 25 mg Documented by: Clopidogrel Bisulfate (Clopidogrel Bisulfate 75 Mg Tablet) 75 mg PO DAILY [facility] Last Admin: 11/10/20 10:30 Dose: 75 mg Documented by: Dexamethasone (Dexamethasone 4 Mg Tablet) 6 mg PO DAILY [facility] Stop: 11/11/20 10:01 Last Admin: 11/10/20 10:28 Dose: 6 mg Documented by: Famotidine (Famotidine 20 Mg Tablet) 20 mg PO DAILY [facility] Last Admin: 11/10/20 10:29 Dose: 20 mg Documented by: Folic Acid (Folic Acid 1 Mg Tablet) 1 mg PO DAILY [facility] Last Admin: 11/10/20 10:29 Dose: 1 mg Documented by: Furosemide (Furosemide 40 Mg Tablet) 40 mg PO DAILY [facility] Last Admin: 11/10/20 10:29 Dose: 40 mg Documented by: Hydralazine HCl (Hydralazine 20 Mg/Ml Vial) 10 mg IV Q4H PRN PRN PRN Reason: BLOOD PRESSURE ELEVATION Last Admin: 11/02/20 22:30 Dose: 10 mg Documented by: Sodium Chloride () 250 mls @ 15 mls/hr IV .[id number] PRN PRN Reason: Saline Flush Sodium Chloride () 250 mls @ 15 mls/hr IV .[id number] PRN PRN Reason: Additional IVPB Infusion Levothyroxine Sodium (Levothyroxine 150 Mcg Tablet) 150 mcg PO DAILY [facility] Last Admin: 11/10/20 10:30 Dose: 150 mcg Documented by: Ondansetron HCl (Ondansetron 4 Mg/2 Ml Vial) 4 mg IV Q8H PRN PRN PRN Reason: NAUSEA/VOMITING Polysaccharide Iron Complex (Iron Polysaccharide Complex 150 Mg Capsule) 150 mg PO DAILY [facility] Last Admin: 11/10/20 10:29 Dose: 150 mg Documented by: Ramipril (Ramipril 10 Mg Capsule) 10 mg PO DAILY [facility] Last Admin: 11/10/20 10:29 Dose: 10 mg Documented by: Senna/Docusate Sodium (Senna/Docusate Sodium 1 Tablet) 2 tablet PO BID PRN PRN PRN Reason: Constipation Sodium Chloride (0.9% Saline Lock 10 Ml Syringe) 10 - 40 ml IV UD PRN PRN Reason: SALINE FLUSH Last Admin: 11/09/20 20:31 Dose: 10 ml Documented by: Medical Necessity - Tobacco Use Smoking Status: Former smoker Assessment/Plan All Active Problems (Last Reviewed 08/27/20 @ 01:[address] Naeved Rick MD) Abnormal cardiac enzyme level (Acute) Acute hypoxic respiratory failure (Acute) Acute bilateral COVID-19 pneumonia (Acute) RECOMMENDATIONS: 1. Continue to wean supplemental oxygen to maintain saturations at or above 90%. 2. Continue Decadron to complete treatment course. 3. Continue gentle diuresis as tolerated by hemodynamics and renal function. Administer additional Lasix today. 4. Encourage incentive spirometer use and mobilize patient as tolerated. IMPRESSIONS: 1. Acute hypoxic respiratory failure secondary to COVID-19 pneumonia The patient appears to be slowly improving. He has completed his treatment course of remdesivir and remains on Decadron. Plan to continue gentle diuresis as well as tolerated by hemodynamics and renal function. Wean supplemental oxygen to maintain saturations at or above 90%. Encourage incentive spirometer use and mobilize patient as tolerated. 2. Chronic diastolic CHF/history of ascending aortic dissection status post repair/paroxysmal A. fib/hypertensive urgency The patient appears stable from a cardiac perspective. Plan to continue baseline cardiac medications. Continue to monitor INR daily. 3. CKD stage III/chronic anemia/hypothyroidism/advanced age/reported COPD Complicates care, management, recovery and prognosis. This note was generated with [employer] dictation software. It may contain incorrect words, spelling, and punctuation that were not noted in checking the note before signing. Inpatient E&M: 79106 Subs Hosp L2
--- NOTE | 2020-11-11 08:11 | PN_ITS ---
Patient Problems: Active and Suspected Problems (Last Reviewed 08/27/20 @ 01:[address] Naveed Rick MD) Abnormal cardiac enzyme level (Acute) Acute hypoxic respiratory failure (Acute) Acute bilateral COVID-19 pneumonia (Acute) Reason for Visit: Follow-up for acute hypoxic respiratory failure secondary to COVID-19 pneumonia. Objective: Patient is not short of breath at rest. Wants to go home her pulse ox is 88% on 6 L of oxygen on ambulation. Completed remdesivir. No fever Physical exam General: Alert, Oriented x3, Cooperative HEENT: Atraumatic, PERRLA, EOMI, Normocephalic Oral: No Gingival or Mucosal Lesions/ Ulcerations Neck: Supple, No JVD, Negative Carotid Bruits Lungs: Air entry diminished in bilateral lung bases. No crepitation/rhonchi. Hypoxic Cardiovascular: Regular rate, Regular Rhythm, Normal S1, Normal S2, No murmurs Abdomen: Bowel Sounds Present, Soft, Non Tender, Non-Distended : No renal angle tenderness. No suprapubic tenderness. Extremities: Right hand amputation, chronic no edema, Capillary Refill Less than 3 Seconds Skin: No rashes, No breakdown Musculoskeletal: No Tenderness to Palpation of Joints or Extremities Neurological: Cranial nerves II-XII grossly intact, Deep Tendon Reflexes 2+/4 and Symmetrical, Neuro grossly intact Psych/Mental Status: Normal Affect, Appropriate. Vitals/I&O's: Vital Signs Temp Pulse Resp BP Pulse Ox 97.7 F L 70 16 141/53 H 93 11/11/20 02:40 11/11/20 02:40 11/11/20 02:40 11/11/20 02:40 11/11/20 05:47 Oxygen Flow Rate (L/min) 5 Oxygen Delivery Method Nasal Cannula Weight: 136 lb 10.986 oz Body Mass Index (BMI) 24.7 Intake and Output for Last 24 Hours 11/09/20 11/10/20 11/11/20 23:59 23:59 23:59 Intake Total 240 / 240 450 / 450 500 / 500 Output Total 1050 / 1050 675 / 675 825 / 825 Balance -810 / -810 -225 / -225 -325 / -325 Laboratory Results 11/10/20 08:11: PT 35.9 H, INR 3.6 H* 11/11/20 05:50: PT 41.9 H, INR 4.4 H* Current Medications Acetaminophen (Acetaminophen 325 Mg Tablet) 650 mg PO Q6H PRN PRN PRN Reason: Pain Score 1-10/Temp > 100.7 F Al Hydroxide/Mg Hydroxide (Mag Hydrox/Al Hydrox/Simeth 30 Ml Udc) 15 ml PO Q6H PRN PRN PRN Reason: Heartburn, indigestion Last Admin: 11/03/20 09:59 Dose: 15 ml Documented by: Albuterol Sulfate (Albuterol Sulfate 8 Gm Inhaler (60 Puffs)) 2 puff INHALATION Q4H PRN PRN PRN Reason: Shortness of breath, wheezing Last Admin: 11/09/20 10:54 Dose: 2 puff Documented by: Amiodarone HCl (Amiodarone 200 Mg Tablet) 200 mg PO DAILY [facility] Last Admin: 11/10/20 10:29 Dose: 200 mg Documented by: Atorvastatin Calcium (Atorvastatin Calcium 20 Mg Tablet) 20 mg PO QHS [facility] Last Admin: 11/10/20 20:34 Dose: 20 mg Documented by: Calamine/Phenol (Menthol/Lanolin/Calamine/Znox 113 Gm Tube) 1 applic TOPICAL BID [facility]; Protocol Last Admin: 11/10/20 20:33 Dose: 1 applicatio Documented by: Carvedilol (Carvedilol 25 Mg Tablet) 25 mg PO BID [facility] Last Admin: 11/10/20 20:34 Dose: 25 mg Documented by: Clopidogrel Bisulfate (Clopidogrel Bisulfate 75 Mg Tablet) 75 mg PO DAILY [facility] Last Admin: 11/10/20 10:30 Dose: 75 mg Documented by: Dexamethasone (Dexamethasone 4 Mg Tablet) 6 mg PO DAILY [facility] Stop: 11/11/20 10:01 Last Admin: 11/10/20 10:28 Dose: 6 mg Documented by: Famotidine (Famotidine 20 Mg Tablet) 20 mg PO DAILY [facility] Last Admin: 11/10/20 10:29 Dose: 20 mg Documented by: Folic Acid (Folic Acid 1 Mg Tablet) 1 mg PO DAILY [facility] Last Admin: 11/10/20 10:29 Dose: 1 mg Documented by: Furosemide (Furosemide 40 Mg Tablet) 40 mg PO DAILY [facility] Last Admin: 11/10/20 10:29 Dose: 40 mg Documented by: Hydralazine HCl (Hydralazine 20 Mg/Ml Vial) 10 mg IV Q4H PRN PRN PRN Reason: BLOOD PRESSURE ELEVATION Last Admin: 11/02/20 22:30 Dose: 10 mg Documented by: Sodium Chloride () 250 mls @ 15 mls/hr IV .[id number] PRN PRN Reason: Saline Flush Sodium Chloride () 250 mls @ 15 mls/hr IV .[id number] PRN PRN Reason: Additional IVPB Infusion Levothyroxine Sodium (Levothyroxine 150 Mcg Tablet) 150 mcg PO DAILY [facility] Last Admin: 11/10/20 10:30 Dose: 150 mcg Documented by: Ondansetron HCl (Ondansetron 4 Mg/2 Ml Vial) 4 mg IV Q8H PRN PRN PRN Reason: NAUSEA/VOMITING Phytonadione (Phytonadione (Vit K1) 5 Mg Tablet) 2.5 mg PO X1 ONE Stop: 11/11/20 08:11 Polysaccharide Iron Complex (Iron Polysaccharide Complex 150 Mg Capsule) 150 mg PO DAILY [facility] Last Admin: 11/10/20 10:29 Dose: 150 mg Documented by: Ramipril (Ramipril 10 Mg Capsule) 10 mg PO DAILY [facility] Last Admin: 11/10/20 10:29 Dose: 10 mg Documented by: Senna/Docusate Sodium (Senna/Docusate Sodium 1 Tablet) 2 tablet PO BID PRN PRN PRN Reason: Constipation Sodium Chloride (0.9% Saline Lock 10 Ml Syringe) 10 - 40 ml IV UD PRN PRN Reason: SALINE FLUSH Last Admin: 11/09/20 20:31 Dose: 10 ml Documented by: STROKE Vital Signs/Narrative: Vital Signs Pulse Ox 11/11/20 05:47 93 Medical Necessity - Tobacco Use Smoking Status: Former smoker Assessment/Plan All Active Problems (Last Reviewed 08/27/20 @ 01:[address] Naveed Rick MD) Abnormal cardiac enzyme level (Acute) Acute hypoxic respiratory failure (Acute) Acute bilateral COVID-19 pneumonia (Acute) This is a 80 years old male patient was admitted through ER for shortness of breath, cough and weakness for 3 to 4 days, found to have extensive bilateral infiltrate on chest x-ray more prominent on the right lung and he tested positive for COVID-19 antigen, consistent with acute bilateral COVID-19 pneumonia complicated by acute hypoxic respiratory failure. #1 acute bilateral COVID-19 pneumonia: Continue p.o Decadron. Completed IV remdesivir on 11/06. Blood pressure in acceptable limits. Comanaged with siphon operator and ID. 11/10: On 7 L of oxygen. Did not require any BiPAP. 11/11: Pulse ox 88% on room air, 86% on 6 L of oxygen. At rest is 95% on 5 L of oxygen. On Decadron. Aggressive bronchopulmonary hygiene. #2 acute hypoxic respiratory failure secondary to acute bilateral COVID-19 pneumonia. Oxygen requirement fluctuates. #3 Flat and indeterminate troponin due to demand ischemia: EKG without acute ischemic changes. Patient remains without any chest pain. #4 stage III chronic kidney disease: Creatinine fluctuates between 1.2 to 1.7 mg/dL. Admission creatinine is 1.68. BUN elevated as patient is on Lasix. 11/10: BUN/creatinine appears to stable, last one 1. #5 paroxysmal atrial fibrillation: Heart rate is controlled. Patient is still in A. fib. continue amiodarone and Coreg for rate control. Coumadin on hold for supratherapeutic INR. Monitor INR daily. #6 CAD status post stents: EKG reviewed as above. continue Coreg, Altace, Crestor and Coumadin. #7 Reported COPD: He is on albuterol inhaler as needed. 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 Further follow-up pulmonary clinic after discharge. #8 Anemia of chronic anemia: H&H is stable. Between 9 g per 10 g%. #9 chronic diastolic CHF: Stable, compensated. Continue Coreg and Altace, continue Lasix. #10 hypothyroidism: Continue levothyroxine. #11 history of ascending aortic dissection: Status post repair, stable, no acute issues. #12 CODE STATUS: Full code, discussed with the patient. #13 DVT prophylaxis: INR 4.4. 11/10 INR 3.6. Continue to hold Coumadin. Monitor INR daily. 11/11 INR 4.4. Vitamin K 2.5 mg oral ordered. CODE STATUS full code. Inpatient E&M: 74319 Subs Hosp L2
[2020-11-11] MEDS: Phytonadione (Vit K1) 5 MG TABLET 2.5 MG PO (09:28)
[2020-11-11] MEDS: Furosemide 40 MG/4 ML Vial IV (09:28)
[2020-11-11] MEDS: Ramipril 10 MG Capsule PO (09:29)
[2020-11-11] MEDS: Amiodarone 200 MG Tablet PO (09:30)
[2020-11-11] MEDS: Carvedilol 25 MG Tablet PO ×2 (09:30→20:17)
[2020-11-11] MEDS: dexAMETHasone 4 MG Tablet 6 MG PO (09:30)
[2020-11-11] MEDS: Iron Polysaccharide Complex 150 MG CAPSULE PO (09:31)
[2020-11-11] MEDS: Clopidogrel Bisulfate 75 MG Tablet PO (09:32)
[2020-11-11] MEDS: Famotidine 20 MG Tablet PO (09:32)
[2020-11-11] MEDS: Folic Acid 1 MG Tablet PO (09:32)
[2020-11-11] MEDS: Furosemide 40 MG Tablet PO (09:32)
[2020-11-11] MEDS: Levothyroxine 150 MCG Tablet PO (09:33)
[2020-11-11] MEDS: Menthol/Lanolin/Calamine/Znox 113 GM Tube 1 APPLIC TOPICAL ×2 (09:34→20:27)
[2020-11-11] MEDS: 0.9% Saline Lock 10 ML Syringe IV ×2 (09:35→20:26)
[2020-11-11] MEDS: Atorvastatin Calcium 20 MG Tablet PO (20:17)
[2020-11-11] MEDS: Mag Hydrox/Al Hydrox/Simeth 30 ML UDC 15 ML PO (22:05)
[2020-11-12 03:42] VITALS: BP 152/62; PULSE 71; RESP 16; TEMP 36.6; O2SAT 97
[2020-11-12 05:26] LABS: Hematocrit 27.9 % (40-54); Hemoglobin 8.5 g/dL (13.0-16.5); Mean Corp Hgb Conc 30.5 g/dL (32-36); Mean Corpuscular Hgb 27.6 pg (27.0-32.0); Mean Corpuscular Volume 90.6 fL (80-94); Mean Platelet Vol. 10.8 fl (6.2-12.0); POSITIVE COUNT YES; POSITIVE DIFFERENTIAL YES; POSITIVE MORPHOLOGY YES; Platelet Count 164 K/mm3 (150-450); RBC Distribution Width CV 16.3 % (11.6-14.6); RBC Distribution Width SD 53.3 fl (35.1-43.9); Red Blood Count 3.08 M/mm3 (4.6-6.2); White Blood Count 11.5 K/mm3 (4.4-11.0)
[2020-11-12 05:39] LABS: International Normalized Ratio 1.8; Prothrombin Time (Protime)PT. 20.2 SECONDS (11.7-14.9)
[2020-11-12 05:49] LABS: Anion Gap 5 (5-15); BUN 56 mg/dL (7-18); BUN/Creat Ratio 48.7 RATIO (10-20); Calcium,Total 7.5 mg/dL (8.5-10.1); Chloride 104 mmol/L (98-107); Creatinine, Serum 1.15 mg/dL (0.70-1.30); EST Glomerular Filtration Rate 65 mL/min (>60); Est Glom Filt Rate - Afr Amer 79 mL/min (>60); Estimated Creatinine Clearance 38.53 ml/min; Glucose 116 mg/dL (74-106); Potassium 4.2 mmol/L (3.5-5.1); Sodium Level 141 mmol/L (136-145)
[2020-11-12 05:52] LABS: Differential Indicated MANUAL DIFF
[2020-11-12 06:08] LABS: Lymphocyte 3 % (19-41); Metamyelocyte 1 % (0-1); Monocyte 5 % (0-10); Neutrophil-Band 3 % (0-5); Neutrophil-Segmented 88 % (47-70); Total Cells Counted 100 (MANUAL DIFF)
[2020-11-12 06:09] LABS: Absolute Lymphocyte Count 0.35 X10^3/uL (0.83-4.51); Absolute Neutrophil Count 10.5 X10^3/uL (2.0-7.7); Platelet Estimate ADEQUATE (ADEQ); Red Cell Morphology NORM C+C NORMAL (NORM C&C)
[2020-11-12 07:37] VITALS: O2SAT 85; O2SAT 89; O2SAT 93
--- NOTE | 2020-11-12 07:52 | PCM.PN.PUL ---
Patient Problems: Active and Suspected Problems (Last Reviewed 08/27/20 @ 01:[address] Naveed Rick MD) Abnormal cardiac enzyme level (Acute) Acute hypoxic respiratory failure (Acute) Acute bilateral COVID-19 pneumonia (Acute) Subjective: The patient was seen and examined at the bedside this morning. Events from the last 24 hours have been reviewed. The patient is currently afebrile, hemodynamically stable and maintaining appropriate oxygen saturations on 5 L/min via nasal cannula. The patient is without any specific complaints this morning and is anxious to be discharged home. No attempt was made overnight to wean the patient's oxygen, despite saturations documented to be in the high 90s. Therefore, I personally wean the patient's oxygen down to 3 L/min via nasal cannula this morning the patient maintained saturations in the mid 90s. Objective: The patient's most recent lab work, culture data and imaging studies have all been personally reviewed. Coronavirus rapid antigen testing was positive on November 02. - Physical Exam Vitals/I&O's: Vital Signs Temp Pulse Resp BP Pulse Ox 97.8 F 71 16 152/62 H 97 11/12/20 03:42 11/12/20 03:42 11/12/20 03:42 11/12/20 03:42 11/12/20 03:42 Oxygen Flow Rate (L/min) [ 6 AMBULATION with Oxygen] Oxygen Flow Rate (L/min) 5 Oxygen Delivery Method Nasal Cannula Weight: 134 lb 11.239 oz Body Mass Index (BMI) 24.7 Intake and Output for Last 24 Hours 11/10/20 11/11/20 11/12/20 23:59 23:59 23:59 Intake Total 450 / 450 500 / 500 Output Total 675 / 675 875 / 875 250 / 250 Balance -225 / -225 -375 / -375 -250 / -250 General: Alert, Oriented x3, Cooperative, No apparent distress, - - Sitting in bedside recliner HEENT: Atraumatic, PERRLA, Normocephalic Oral: No Gingival or Mucosal Lesions/ Ulcerations Neck: Supple, No Nodes, Trachea Midline Lungs: No rhonchi, No wheeze, No rales, Diminished Cardiovascular: Regular rate, Regular Rhythm, Normal S1, Normal S2, No murmurs Abdomen: Bowel Sounds Present, Soft, Non Tender Extremities: No clubbing, No cyanosis, No edema Skin: No breakdown Musculoskeletal: No Tenderness to Palpation of Joints or Extremities Lymphatic: No Cervical, Supraclavicular, or Inguinal Adenopathy Neurological: Cranial nerves II-XII grossly intact, Neuro grossly intact Psych/Mental Status: Alert and oriented to time, place, person, mood and affect Labs (Last 48 Hours) 11/10/20 11/11/20 11/12/20 08:11 05:50 05:06 WBC 11.5 H RBC 3.08 L Hgb 8.5 L Hct 27.9 L MCV 90.6 MCH 27.6 MCHC 30.5 L RDW Std Deviation 53.3 H RDW Coeff of Ej 16.3 H Plt Count 164 MPV 10.8 Neut % (Auto) Not Reportable Absolute Neuts (auto) 10.5 H Absolute Lymphs (auto) 0.35 L Total Counted 100 Neutrophils % (Manual) 88 H Band Neutrophils % 3 Lymphocytes % (Manual) 3 L Monocytes % (Manual) 5 Metamyelocytes % 1 Diff Path Review May foll Platelet Estimate ADEQUATE RBC Morphology NORM C+C PT 35.9 H 41.9 H INR 3.6 H* 4.4 H* Sodium Potassium Chloride Carbon Dioxide Anion Gap BUN Creatinine Estim Creat Clear Calc Est GFR (MDRD) Af Amer Est GFR (MDRD) Non-Af BUN/Creatinine Ratio Glucose Calcium 11/12/20 11/12/20 05:06 05:06 WBC RBC Hgb Hct MCV MCH MCHC RDW Std Deviation RDW Coeff of Ej Plt Count MPV Neut % (Auto) Absolute Neuts (auto) Absolute Lymphs (auto) Total Counted Neutrophils % (Manual) Band Neutrophils % Lymphocytes % (Manual) Monocytes % (Manual) Metamyelocytes % Diff Path Review Platelet Estimate RBC Morphology PT 20.2 H INR 1.8 Sodium 141 Potassium 4.2 Chloride 104 Carbon Dioxide 32.0 Anion Gap 5 BUN 56 H Creatinine 1.15 Estim Creat Clear Calc 38.53 Est GFR (MDRD) Af Amer 79 Est GFR (MDRD) Non-Af 65 BUN/Creatinine Ratio 48.7 H Glucose 116 H Calcium 7.5 L Clinical Impression(s) from Imaging Studies Chest X-Ray 11/02/20 11:35 IMPRESSION: Diffuse bilateral airspace disease worse in the right hemithorax. This may represent either diffuse bilateral pulmonary infiltrates or edema. Electronically Signed: Milan Cao MD at 12:11 EST , Service support , Chest CTA 11/02/20 12:20 IMPRESSION: No evidence of pulmonary embolism. Diffuse bilateral groundglass appearance with areas of confluence was in the right hemithorax superimposed on chronic interstitial scarring and honeycombing. Stable dilatation of the distal portion of the thoracic aorta as it enters the diaphragmatic hiatus with evidence of a prior dissection. Electronically Signed: Milan Cao MD at 12:44 EST , Service support , Current Medications Acetaminophen (Acetaminophen 325 Mg Tablet) 650 mg PO Q6H PRN PRN PRN Reason: Pain Score 1-10/Temp > 100.7 F Al Hydroxide/Mg Hydroxide (Mag Hydrox/Al Hydrox/Simeth 30 Ml Udc) 15 ml PO Q6H PRN PRN PRN Reason: Heartburn, indigestion Last Admin: 11/11/20 22:05 Dose: 15 ml Documented by: Albuterol Sulfate (Albuterol Sulfate 8 Gm Inhaler (60 Puffs)) 2 puff INHALATION Q4H PRN PRN PRN Reason: Shortness of breath, wheezing Last Admin: 11/09/20 10:54 Dose: 2 puff Documented by: Amiodarone HCl (Amiodarone 200 Mg Tablet) 200 mg PO DAILY [facility] Last Admin: 11/11/20 09:30 Dose: 200 mg Documented by: Atorvastatin Calcium (Atorvastatin Calcium 20 Mg Tablet) 20 mg PO QHS [facility] Last Admin: 11/11/20 20:17 Dose: 20 mg Documented by: Calamine/Phenol (Menthol/Lanolin/Calamine/Znox 113 Gm Tube) 1 applic TOPICAL BID [facility]; Protocol Last Admin: 11/11/20 20:27 Dose: 1 applicatio Documented by: Carvedilol (Carvedilol 25 Mg Tablet) 25 mg PO BID [facility] Last Admin: 11/11/20 20:17 Dose: 25 mg Documented by: Clopidogrel Bisulfate (Clopidogrel Bisulfate 75 Mg Tablet) 75 mg PO DAILY [facility] Last Admin: 11/11/20 09:32 Dose: 75 mg Documented by: Famotidine (Famotidine 20 Mg Tablet) 20 mg PO DAILY [facility] Last Admin: 11/11/20 09:32 Dose: 20 mg Documented by: Folic Acid (Folic Acid 1 Mg Tablet) 1 mg PO DAILY [facility] Last Admin: 11/11/20 09:32 Dose: 1 mg Documented by: Furosemide (Furosemide 40 Mg Tablet) 40 mg PO DAILY [facility] Last Admin: 11/11/20 09:32 Dose: 40 mg Documented by: Hydralazine HCl (Hydralazine 20 Mg/Ml Vial) 10 mg IV Q4H PRN PRN PRN Reason: BLOOD PRESSURE ELEVATION Last Admin: 11/02/20 22:30 Dose: 10 mg Documented by: Sodium Chloride () 250 mls @ 15 mls/hr IV .[id number] PRN PRN Reason: Saline Flush Sodium Chloride () 250 mls @ 15 mls/hr IV .[id number] PRN PRN Reason: Additional IVPB Infusion Levothyroxine Sodium (Levothyroxine 150 Mcg Tablet) 150 mcg PO DAILY [facility] Last Admin: 11/11/20 09:33 Dose: 150 mcg Documented by: Ondansetron HCl (Ondansetron 4 Mg/2 Ml Vial) 4 mg IV Q8H PRN PRN PRN Reason: NAUSEA/VOMITING Polysaccharide Iron Complex (Iron Polysaccharide Complex 150 Mg Capsule) 150 mg PO DAILY [facility] Last Admin: 11/11/20 09:31 Dose: 150 mg Documented by: Ramipril (Ramipril 10 Mg Capsule) 10 mg PO DAILY [facility] Last Admin: 11/11/20 09:29 Dose: 10 mg Documented by: Senna/Docusate Sodium (Senna/Docusate Sodium 1 Tablet) 2 tablet PO BID PRN PRN PRN Reason: Constipation Sodium Chloride (0.9% Saline Lock 10 Ml Syringe) 10 - 40 ml IV UD PRN PRN Reason: SALINE FLUSH Last Admin: 11/11/20 20:26 Dose: 10 ml Documented by: Warfarin Sodium (Warfarin 3 Mg Tablet) 3 mg PO X1 ONE Stop: 11/12/20 07:39 Medical Necessity - Tobacco Use Smoking Status: Former smoker Assessment/Plan All Active Problems (Last Reviewed 08/27/20 @ 01:[address] Naveed Rick MD) Abnormal cardiac enzyme level (Acute) Acute hypoxic respiratory failure (Acute) Acute bilateral COVID-19 pneumonia (Acute) RECOMMENDATIONS: 1. Continue to wean supplemental oxygen to maintain saturations at or above 90%. 2. Continue Decadron to complete treatment course. 3. Continue gentle diuresis as tolerated by hemodynamics and renal function. 4. Encourage incentive spirometer use and mobilize patient as tolerated. IMPRESSIONS: 1. Acute hypoxic respiratory failure secondary to COVID-19 pneumonia The patient appears to be slowly improving. He has completed his treatment course of remdesivir and remains on Decadron. Plan to continue gentle diuresis as well as tolerated by hemodynamics and renal function. Wean supplemental oxygen to maintain saturations at or above 90%. Encourage incentive spirometer use and mobilize patient as tolerated. 2. Chronic diastolic CHF/history of ascending aortic dissection status post repair/paroxysmal A. fib/hypertensive urgency The patient appears stable from a cardiac perspective. Plan to continue baseline cardiac medications. Continue to monitor INR daily. 3. CKD stage III/chronic anemia/hypothyroidism/advanced age/reported COPD Complicates care, management, recovery and prognosis. This note was generated with [employer] dictation software. It may contain incorrect words, spelling, and punctuation that were not noted in checking the note before signing. Inpatient E&M: 53610 Subs Hosp L2
[2020-11-12 08:57] VITALS: BP 142/57; PULSE 90; RESP 18; TEMP 35.4; O2SAT 94
[2020-11-12] MEDS: Clopidogrel Bisulfate 75 MG Tablet PO (09:00)
[2020-11-12] MEDS: Furosemide 40 MG Tablet PO (09:00)
[2020-11-12] MEDS: Levothyroxine 150 MCG Tablet PO (09:00)
--- NOTE | 2020-11-12 09:00 | DCINST_ITS ---
- Discharge Diagnoses Current Active Problems: Current Active and Chronic Problems (Last Reviewed 08/27/20 @ 01:[address] 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 Brody Scott; Aortic stenosis (Chronic) DVT (deep venous thrombosis) (Chronic) Chronic kidney disease (Chronic) Peripheral arterial occlusive disease (Chronic) BPH (benign prostatic hyperplasia) (Chronic) Urinary retention (Chronic) Hyperlipidemia (Chronic) Coronary artery disease (Chronic) Hypertension (Chronic) Chronic diastolic heart failure (Chronic) History of aortic valve repair (Chronic ~10/28/07) Hx of repair of ascending aorta (Chronic ~10/28/07) 32mm [place] graft Presence of stent in coronary artery (Chronic ~05/24/06) PCI/ILANA of the of 2nd Diagonal instent restenosis 05/24/06 COPD (chronic obstructive pulmonary disease) (Chronic) Tobacco dependence in remission (Chronic) Pulmonary embolism (Chronic) Hypothyroidism (Chronic) Atrial fibrillation (Chronic) You will use the following diet at home:: Cardiac Your food should be the consistency of: Regular Discharge Activity: May Not Drive Weight Bearing Status: Weight bearing as tolerated Call your doctor if you observe: Fever of 101 or Higher, Numbness or Tingling, Change in Color, Inability to urinate, Inability to have a bowel movement, Shortness of breath, Dizziness, Fainting spells, Swelling in the ankles, Chest p ain, Prolonged hiccoughing, Increased palpitations (irregular heartbeat), Calf discomfort, Uncontrolled pain Additional Instructions: Follow-up PT/INR and BMP in 1 week most likely on next Monday with PCP and titrate the dose of ramipril and warfarin accordingly 20 days of quarantine starting from 10/29/2020 Allergies/Adverse Reactions: Allergies No Known Allergies Allergy (Verified 10/20/20 18:10) Medications to take at Discharge nitroglycerin 0.4 mg sublingual tablet 0.4 mg SUBLINGUAL Q5-15M PRN 04/23/18 levothyroxine 100 mcg tablet 150 mcg PO DAILY tab 12/04/19 Furosemide 40 mg PO DAILY 04/07/20 Rosuvastatin Calcium [Crestor] 10 mg PO QHS 05/02/20 carvedilol 25 mg tablet 25 mg PO BID 08/21/20 cholecalciferol (vitamin D3) 50 mcg (2,000 unit) capsule 50 mcg PO DAILY 08/21/20 clopidogrel 75 mg tablet 75 mg PO DAILY 08/21/20 folic acid 1 mg tablet 1 mg PO DAILY 08/21/20 Acetaminophen [Tylenol] 1,000 mg PO Q8 08/28/20 Calcium Carbonate [Tums] 500 mg PO Q6H PRN PRN tab 08/28/20 Iron Polysaccharide Complex [Ferrex 150] 150 mg PO DAILYCM #30 cap 09/15/20 Menthol/Lanolin/Calamine/Znox [Calmoseptine Ointment] 1 applic TOPICAL 0600,2200 tube 09/15/20 amiodarone 200 mg tablet 200 mg PO DAILY #90 tab 10/12/20 Albuterol Inhaler [Ventolin Hfa] 2 puff INHALATION Q4H PRN PRN #1 inhaler 11/12/20 Ramipril [Altace] 5 mg PO DAILY #0 11/12/20 Warfarin [Coumadin] 2 mg PO DAILY #30 tab 11/12/20 The following prescriptions were given: Warfarin [Coumadin] 2 mg PO DAILY #30 tab Transmission Status: Pending to [facility] #30 Albuterol Inhaler [Ventolin Hfa] 2 puff INHALATION Q4H PRN PRN #1 inhaler PRN Reason: Shortness of breath, wheezing Transmission Status: Pending to [facility] Primary Care Physician: Ihsan Modi MD [Primary Care Provider] - Please follow up with your Primary Care Physician in: In 1 week to check BMP and PT/INR Test Results: Test results from this visit will be discussed in further detail at your follow- up appointment, if applicable. Please Follow Up With: Dilan Sparrow DO When: in 2 weeks Please Follow Up With: Boo Jones MD When: In 2 to 4 weeks
[2020-11-12] MEDS: Folic Acid 1 MG Tablet PO (09:01)
[2020-11-12] MEDS: Amiodarone 200 MG Tablet PO (09:01)
[2020-11-12] MEDS: Carvedilol 25 MG Tablet PO (09:01)
[2020-11-12] MEDS: Ramipril 10 MG Capsule PO (09:01)
[2020-11-12] MEDS: Famotidine 20 MG Tablet PO (09:01)
[2020-11-12] MEDS: Menthol/Lanolin/Calamine/Znox 113 GM Tube 1 APPLIC TOPICAL (09:02)
[2020-11-12] MEDS: Iron Polysaccharide Complex 150 MG CAPSULE PO (09:02)
--- NOTE | 2020-11-12 10:45 | CASEMGMT ---
RN CM Note: Patient to discharge today. Script completed and clinicals faxed to [facility]. Called to [facility] to update. Call and message left with Tania @ [facility] and call to Jessi to update of dc today. Ela FAY RN AC
--- NOTE | 2020-11-12 10:51 | DS.PCM_ITS ---
Discharge Date and Diagnosis - Problem List Patient Problems: Active and Suspected Problems (Last Reviewed 08/27/20 @ 01:[address] Naveed Rick MD) Abnormal cardiac enzyme level (Acute) Acute hypoxic respiratory failure (Acute) Acute bilateral COVID-19 pneumonia (Acute) Date of Admission: 11/02/20 Date of Discharge: 11/12/20 - Primary Discharge Diagnosis Acute Problems: Active Problems (Last Reviewed 08/27/20 @ 01:[address] Naveed Rick MD) Abnormal cardiac enzyme level (Acute) Acute hypoxic respiratory failure (Acute) Acute bilateral COVID-19 pneumonia (Acute) - Secondary Discharge Diagnosis Chronic Problems: Chronic Problems (Last Reviewed 08/27/20 @ 01:[address] Naveed Rick MD) Failed total hip arthroplasty (Chronic) Chronic left hip pain (Chronic) Other specified peripheral vascular diseases (Chronic) Tinea unguium (Chronic) Thoracoabdominal aneurysm (Chronic) Placement of a [place] VBX 6 x 29 balloon expandable covered stent into the left renal artery aneurysm and dissection, placement of an 8 x 150 [place] to left popliteal aneurysm and left popliteal artery postdilated tension with a 8 x 100 medicine technologist balloon on 04/16/2020 at [facility] with Dr. Brody Scott; Closed left hip fracture (Chronic) Aortic stenosis (Chronic) DVT (deep venous thrombosis) (Chronic) Anemia (Chronic) Chronic kidney disease (Chronic) Peripheral arterial occlusive disease (Chronic) Thoracic aortic aneurysm (Chronic) Abdominal aortic aneurysm (Chronic) BPH (benign prostatic hyperplasia) (Chronic) Urinary retention (Chronic) Closed right hip fracture (Chronic) Hyperlipidemia (Chronic) Coronary artery disease (Chronic) Hypertension (Chronic) Chronic diastolic heart failure (Chronic) Thoracic aortic aneurysm, ruptured (Chronic) Mixed hyperlipidemia (Chronic) Chronic heart failure with preserved ejection fraction (Chronic) History of aortic valve repair (Chronic ~10/28/07) Hx of repair of ascending aorta (Chronic ~10/28/07) 32mm Hem[place] graft 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) Essential hypertension (Chronic) Presence of stent in coronary artery (Chronic ~05/24/06) PCI/ILANA of the of 2nd Diagonal instent restenosis 05/24/06 Atherosclerotic heart disease of [place] coronary artery without angina pectoris (Chronic) COPD (chronic obstructive pulmonary disease) (Chronic) Tobacco abuse (Chronic) Tobacco dependence in remission (Chronic) Pulmonary embolism (Chronic) Hypothyroidism (Chronic) Atrial fibrillation (Chronic) Hospital Course and Treatment Operations: None Summary of Care Provided: [] This is a 80 years old male patient was admitted through ER for shortness of breath, cough and weakness for 3 to 4 days, found to have extensive bilateral infiltrate on chest x-ray more prominent on the right lung and he tested positive for COVID-19 antigen, consistent with acute bilateral COVID-19 pneumonia complicated by acute hypoxic respiratory failure. #1 acute bilateral COVID-19 pneumonia: Continue p.o Decadron and IV remdesivir. Patient oxygen level gradually improved. Today, pulse ox 89% on room air at rest, 85% ambulating on room air and 93% on 4 L of oxygen ambulating. #2 acute hypoxic respiratory failure secondary to acute bilateral COVID-19 pneumonia. #3 Flat and indeterminate troponin due to demand ischemia: EKG without acute i schemic changes. Patient did not chest pain. #4 stage III chronic kidney disease: Creatinine fluctuates between 1.2 to 1.7 mg/dL. Admission creatinine is 1.68. BUN elevated as patient is on Lasix. Patient BUN/creatinine 56/1.15. Start ramipril low-dose 5 mg daily and follow- up BMP in 1 week with PCP along with INR to titrate the dose. Patient is also on Lasix 40 mg daily. #5 paroxysmal atrial fibrillation: Heart rate is controlled. Patient is still in A. fib. continue amiodarone and Coreg for rate control. Coumadin resumed today as INR was 1.8 and 3 mg warfarin given. #6 CAD status post stents: EKG reviewed as above. continue Coreg, Altace, Crestor and Coumadin. #7 Reported COPD: He is on albuterol inhaler as needed. 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 Further follow-up pulmonary clinic after discharge. #8 Anemia of chronic anemia: H&H is stable. Last H&H 8.03/11.9. #9 chronic diastolic CHF: Stable, compensated. Continue Coreg and Altace, continue Lasix. #10 hypothyroidism: Continue levothyroxine. #11 history of ascending aortic dissection: Status post repair, stable, no acute issues. #12 CODE STATUS: Full code, discussed with the patient. #13 DVT prophylaxis: INR was supratherapeutic until 11/11 when vitamin K 2.5 mg oral given. Today INR 1.8 and warfarin 3 mg given. Warfarin 2 mg to continue from tomorrow and follow-up INR next week in 5 days. Patient is ambulatory in home and in the community and requires home oxygen with portability.. Discharge medication reconciliation done. Discharge follow-up instructions completed. Discharge process discussed with the patient and all questions were answered to patient's satisfaction. Total time spent, exact 35 minutes on discharge meds reconciliation, examination, coordination of care with nurses and ancillary staff, review of imaging and blood test and discussion with the patient on follow-up instructions Patient Problems: Active and Suspected Problems (Last Reviewed 08/27/20 @ 01:[address] Naveed Rick MD) Abnormal cardiac enzyme level (Acute) Acute hypoxic respiratory failure (Acute) Acute bilateral COVID-19 pneumonia (Acute) Objective: Shortness of breath is much improved. Patient has mild occasional cough. Not tachypneic. No fever Physical exam General: Alert, Oriented x3, Cooperative HEENT: Atraumatic, PERRLA, EOMI, Normocephalic Oral: No Gingival or Mucosal Lesions/ Ulcerations Neck: Supple, No JVD, Negative Carotid Bruits Lungs: Air entry diminished in bilateral lung bases. No crepitation/rhonchi. Mild hypoxic Cardiovascular: Regular rate, Regular Rhythm, Normal S1, Normal S2, No murmurs Abdomen: Bowel Sounds Present, Soft, Non Tender, Non-Distended : No renal angle tenderness. No suprapubic tenderness. Extremities: Right hand amputation, chronic. No ankle edema, Capillary Refill Less than 3 Seconds Skin: No rashes, No breakdown Musculoskeletal: No Tenderness to Palpation of Joints or Extremities Neurological: Cranial nerves II-XII grossly intact, Deep Tendon Reflexes 2+/4 and Symmetrical, Neuro grossly intact Psych/Mental Status: Normal Affect, Appropriate. - Physical Exam Vitals/I&O's: Vital Signs Temp Pulse Resp BP Pulse Ox 97.8 F 71 16 152/62 H 97 11/12/20 03:42 11/12/20 03:42 11/12/20 03:42 11/12/20 03:42 11/12/20 03:42 Oxygen Flow Rate (L/min) [ 6 AMBULATION with Oxygen] Oxygen Flow Rate (L/min) 5 Oxygen Delivery Method Nasal Cannula Weight: 134 lb 11.239 oz Body Mass Index (BMI) 24.7 Intake and Output for Last 24 Hours 11/10/20 11/11/20 11/12/20 23:59 23:59 23:59 Intake Total 450 / 450 500 / 500 Output Total 675 / 675 875 / 875 250 / 250 Balance -225 / -225 -375 / -375 -250 / -250 Laboratory Results 11/12/20 05:06: WBC 11.5 H, RBC 3.08 L, Hgb 8.5 L, Hct 27.9 L, MCV 90.6, MCH 27.6, MCHC 30.5 L, RDW Std Deviation 53.3 H, RDW Coeff of Ej 16.3 H, Plt Count 164, MPV 10.8, Neut % (Auto) Not Reportable, Absolute Neuts (auto) 10.5 H, Absolute Lymphs (auto) 0.35 L, Total Counted 100, Neutrophils % (Manual) 88 H, Band Neutrophils % 3, Lymphocytes % (Manual) 3 L, Monocytes % (Manual) 5, Metamyelocytes % 1, Diff Path Review May foll, Platelet Estimate ADEQUATE, RBC Morphology NORM C+C 11/12/20 05:06: Sodium 141, Potassium 4.2, Chloride 104, Carbon Dioxide 32.0, Anion Gap 5, BUN 56 H, Creatinine 1.15, Estim Creat Clear Calc 38.53, Est GFR (MDRD) Af Amer 79, Est GFR (MDRD) Non-Af 65, BUN/Creatinine Ratio 48.7 H, Glucose 116 H, Calcium 7.5 L 11/12/20 05:06: PT 20.2 H, INR 1.8 Current Medications Acetaminophen (Acetaminophen 325 Mg Tablet) 650 mg PO Q6H PRN PRN PRN Reason: Pain Score 1-10/Temp > 100.7 F Al Hydroxide/Mg Hydroxide (Mag Hydrox/Al Hydrox/Simeth 30 Ml Udc) 15 ml PO Q6H PRN PRN PRN Reason: Heartburn, indigestion Last Admin: 11/11/20 22:05 Dose: 15 ml Documented by: Albuterol Sulfate (Albuterol Sulfate 8 Gm Inhaler (60 Puffs)) 2 puff INHALATION Q4H PRN PRN PRN Reason: Shortness of breath, wheezing Last Admin: 11/09/20 10:54 Dose: 2 puff Documented by: Amiodarone HCl (Amiodarone 200 Mg Tablet) 200 mg PO DAILY [facility] Last Admin: 11/11/20 09:30 Dose: 200 mg Documented by: Atorvastatin Calcium (Atorvastatin Calcium 20 Mg Tablet) 20 mg PO QHS [facility] Last Admin: 11/11/20 20:17 Dose: 20 mg Documented by: Calamine/Phenol (Menthol/Lanolin/Calamine/Znox 113 Gm Tube) 1 applic TOPICAL BID [facility]; Protocol Last Admin: 11/11/20 20:27 Dose: 1 applicatio Documented by: Carvedilol (Carvedilol 25 Mg Tablet) 25 mg PO BID [facility] Last Admin: 11/11/20 20:17 Dose: 25 mg Documented by: Clopidogrel Bisulfate (Clopidogrel Bisulfate 75 Mg Tablet) 75 mg PO DAILY [facility] Last Admin: 11/11/20 09:32 Dose: 75 mg Documented by: Famotidine (Famotidine 20 Mg Tablet) 20 mg PO DAILY [facility] Last Admin: 11/11/20 09:32 Dose: 20 mg Documented by: Folic Acid (Folic Acid 1 Mg Tablet) 1 mg PO DAILY [facility] Last Admin: 11/11/20 09:32 Dose: 1 mg Documented by: Furosemide (Furosemide 40 Mg Tablet) 40 mg PO DAILY [facility] Last Admin: 11/11/20 09:32 Dose: 40 mg Documented by: Hydralazine HCl (Hydralazine 20 Mg/Ml Vial) 10 mg IV Q4H PRN PRN PRN Reason: BLOOD PRESSURE ELEVATION Last Admin: 11/02/20 22:30 Dose: 10 mg Documented by: Sodium Chloride () 250 mls @ 15 mls/hr IV .[id number] PRN PRN Reason: Saline Flush Sodium Chloride () 250 mls @ 15 mls/hr IV .[id number] PRN PRN Reason: Additional IVPB Infusion Levothyroxine Sodium (Levothyroxine 150 Mcg Tablet) 150 mcg PO DAILY [facility] Last Admin: 11/11/20 09:33 Dose: 150 mcg Documented by: Ondansetron HCl (Ondansetron 4 Mg/2 Ml Vial) 4 mg IV Q8H PRN PRN PRN Reason: NAUSEA/VOMITING Polysaccharide Iron Complex (Iron Polysaccharide Complex 150 Mg Capsule) 150 mg PO DAILY [facility] Last Admin: 11/11/20 09:31 Dose: 150 mg Documented by: Ramipril (Ramipril 10 Mg Capsule) 10 mg PO DAILY [facility] Last Admin: 11/11/20 09:29 Dose: 10 mg Documented by: Senna/Docusate Sodium (Senna/Docusate Sodium 1 Tablet) 2 tablet PO BID PRN PRN PRN Reason: Constipation Sodium Chloride (0.9% Saline Lock 10 Ml Syringe) 10 - 40 ml IV UD PRN PRN Reason: SALINE FLUSH Last Admin: 11/11/20 20:26 Dose: 10 ml Documented by: Home Medications: Medications to take at Discharge nitroglycerin 0.4 mg sublingual tablet 0.4 mg SUBLINGUAL Q5-15M PRN 04/23/18 levothyroxine 100 mcg tablet 150 mcg PO DAILY tab 12/04/19 Furosemide 40 mg PO DAILY 04/07/20 Rosuvastatin Calcium [Crestor] 10 mg PO QHS 05/02/20 carvedilol 25 mg tablet 25 mg PO BID 08/21/20 cholecalciferol (vitamin D3) 50 mcg (2,000 unit) capsule 50 mcg PO DAILY 08/21/20 clopidogrel 75 mg tablet 75 mg PO DAILY 08/21/20 folic acid 1 mg tablet 1 mg PO DAILY 08/21/20 Acetaminophen [Tylenol] 1,000 mg PO Q8 08/28/20 Calcium Carbonate [Tums] 500 mg PO Q6H PRN PRN tab 08/28/20 Iron Polysaccharide Complex [Ferrex 150] 150 mg PO DAILYCM #30 cap 09/15/20 Menthol/Lanolin/Calamine/Znox [Calmoseptine Ointment] 1 applic TOPICAL 0600,2200 tube 09/15/20 amiodarone 200 mg tablet 200 mg PO DAILY #90 tab 10/12/20 Albuterol Inhaler [Ventolin Hfa] 2 puff INHALATION Q4H PRN PRN #1 inhaler 11/12/20 Ramipril [Altace] 5 mg PO DAILY #0 11/12/20 Warfarin [Coumadin] 2 mg PO DAILY #30 tab 11/12/20 Following Prescriptions Were Given to Patient: Warfarin [Coumadin] 2 mg PO DAILY #30 tab Transmission Status: Received by [facility] #30 Albuterol Inhaler [Ventolin Hfa] 2 puff INHALATION Q4H PRN PRN #1 inhaler PRN Reason: Shortness of breath, wheezing Transmission Status: Received by [facility]30 Primary Care Physician: Ihsan Modi MD [Primary Care Provider] - Medical Necessity - Tobacco Use Smoking Status: Former smoker Meaningful Use Info Meaningful Use Diagnoses (Choose all that apply): None applicable Inpatient E&M: [id number] [facility]
--- NOTE | 2020-11-12 12:05 | CASEMGMT ---
[facility] CM Note: Call received from [facility]. Oxygen will be set up @ patient's home prior to admission and will bring portable tank to hospital after 2 pm. Call to Lisa Parks Nurse to update. Ela HUYNHN RN ACM
[2020-11-12 12:36] LABS: Pathologist Review Reviewed
[2020-11-12 15:00] VITALS: BP 139/59; PULSE 74; RESP 18; TEMP 37; O2SAT 96
== END 2020-11-12 15:35 | disposition home health service (06) | DRG 177 ==
LOC: ED 11:25 → ICU 12:46 → MS2 11-04 23:25
PROVIDERS: Internal Medicine Critical Care Medicine; Internal Medicine Infectious Disease; Admitting Provider Hospitalist; Emergency Provider Emergency Medicine; PCP Family Medicine; Visit Provider Internal Medicine
DX: U07.1 COVID-19 (principal); J12.82 Pneumonia due to coronavirus disease 2019; J96.01 Acute respiratory failure with hypoxia; J44.0 Chronic obstructive pulmonary disease with (acute) lower respiratory infection; I13.0 Hypertensive heart and chronic kidney disease with heart failure and stage 1 through stage 4 chronic kidney disease, or unspecified chronic kidney disease; I50.32 Chronic diastolic (congestive) heart failure; I24.8 Other forms of acute ischemic heart disease; N18.30 Chronic kidney disease, stage 3 unspecified; I16.0 Hypertensive urgency; R79.1 Abnormal coagulation profile; I25.10 Atherosclerotic heart disease of native coronary artery without angina pectoris; I73.9 Peripheral vascular disease, unspecified; N40.0 Benign prostatic hyperplasia without lower urinary tract symptoms; E03.9 Hypothyroidism, unspecified; E78.2 Mixed hyperlipidemia; I48.0 Paroxysmal atrial fibrillation; D63.8 Anemia in other chronic diseases classified elsewhere; Z87.891 Personal history of nicotine dependence; Z86.711 Personal history of pulmonary embolism; Z86.718 Personal history of other venous thrombosis and embolism
CPT/HCPCS: 36415; 36600; 71045; 71275; 80048; 80053; 80076; 82803; 83615; 83880; 84145; 84484; 85025; 85027; 85379; 85610; 87426; 93005; 94002; 94003; 94660; 97110; 97116; 97161; 97166; 97530; 97535; 99251; 99285; J7030; J7050; Q9967; A4216; G0463; J1940

== ENCOUNTER 2020-11-14 10:09 | Inpatient (IN) | payer MEDICARE, OTHER, SELFPAY ==
[2020-11-02 14:11] VITALS: BMI 24.7
[2020-11-14] VITALS (33 sets, daily range): BP systolic 130–170; BP diastolic 44–69; PULSE 68–85; RESP 12–28; TEMP 36.1–36.6; O2SAT 77–99; BMI 26.7; BMI 24.9
--- NOTE | 2020-11-14 10:15 | EKG12_ITS ---
Test Reason : SOB Blood Pressure : / mmHG Vent. Rate : 085 BPM Atrial Rate : 084 BPM P-R Int : 000 ms QRS Dur : 110 ms QT Int : 394 ms P-R-T Axes : 000 -32 117 degrees QTc Int : 468 ms Atrial fibrillation Left axis deviation Incomplete left bundle branch block Voltage criteria for left ventricular hypertrophy ST & T wave abnormality, consider lateral ischemia Prolonged QT Abnormal ECG Confirmed by ZANE BRANNON, MARLENE ([id number]), food editor MANUEL CHERRY ([id number]) on 11/16/2020 12:20:36 PM Referred By: CONSTANTINE Confirmed By:ANNA DEGROOT MD
--- NOTE | 2020-11-14 10:16 | ED.DCSUM_ITS ---
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 He was sent home on 4 L nasal cannula and home health care. He has been feeling short of breath during the night. He notes his legs are more swollen than normal. Home health reported that they could not get his oxygen levels out of the low 80s. EMS was called. Patient denies any chest pain. He notes that he is on Coumadin for atrial fibrillation. History of chronic kidney disease and aortic and renal artery repairs. Patient denies any fevers. - Past Medical History (1) Abdominal aortic aneurysm Status: Chronic (2) Aortic stenosis Status: Chronic (3) Atherosclerotic heart disease of [place] coronary artery without angina pectoris Status: Chronic (4) Atrial fibrillation Status: Chronic (5) BPH (benign prostatic hyperplasia) Status: Chronic (6) COPD (chronic obstructive pulmonary disease) Status: Chronic (7) Chronic diastolic heart failure Status: Chronic (8) Chronic kidney disease Status: Chronic (9) DVT (deep venous thrombosis) Status: Chronic (10) Essential hypertension Status: Chronic (11) History of aortic valve repair Status: Chronic (12) Hx of repair of ascending aorta Status: Chronic Comment: 32mm [place] graft (13) Hyperlipidemia Status: Chronic (14) Hypertension Status: Chronic (15) Hypothyroidism Status: Chronic (16) Mixed hyperlipidemia Status: Chronic (17) Other specified peripheral vascular diseases Status: Chronic (18) Peripheral arterial occlusive disease Status: Chronic (19) Presence of stent in coronary artery Status: Chronic Comment: PCI/ILANA of the of 2nd Diagonal instent restenosis 05/24/06 (20) Pulmonary embolism Status: Chronic (21) Thoracic aortic aneurysm Status: Chronic (22) Urinary retention Status: Chronic Past Medical History - Allergies and Home Meds Allergies/Adverse Reactions: Allergies No Known Allergies Allergy (Verified 10/20/20 18:10) Primary Care Physician: Ihsan Modi MD [Primary Care Provider] - Surgical History: angioplasty - Stent, Left popliteal artery stent., appendectomy, cataract, total hip arthroplasty - Right cemented., - - Thoracic aortic [id number] Status post aortic valve replacement, AAA endovascular graft, left hip intramedullary nail. Lives: - - Lives at home with home health Smoking Status: Former smoker Drugs: None - Family History Maternal Family History: Family History (Last Reviewed 08/27/20 @ 00:[address] Naveed Rick MD) Grandfather Diabetes Brother Heart disease Family History: Reports: No pertinent history Paternal Family History: Family History (Last Reviewed 08/27/20 @ 00:[address] Naveed Rick MD) Grandfather Diabetes Brother Heart disease Family History: Reports: No pertinent history Offspring Family History: Family History (Last Reviewed 08/27/20 @ 00:[address] Naveed Rick MD) Grandfather Diabetes Brother Heart disease Family History: Reports: Hypertension, Seizures, - - Intellectual Delay. Review of Systems General: Denies: Chills, Fever, Sweats Eyes: Denies: Visual changes - bilaterally, Diplopia ENT: Denies: Rhinorrhea, Sore throat Cardiovascular: Denies: Chest pain, Palpitations Respiratory: Reports: Dyspnea. Denies: Cough, Dyspnea on exertion Gastrointestinal: Denies: Abdominal pain, Nausea, Vomiting, Diarrhea, Melena, Hematochezia Genitourinary: Denies: Dysuria, Hematuria, Frequency Musculoskeletal: Reports: Swelling. Denies: Back pain, Extremity Pain Skin: Denies: Rash, Wounds Neurological: Denies: Headache, Weakness, Numbness Physical Exam Vital Signs/Narrative: Vital Signs Temp Pulse Resp BP Pulse Ox 11/14/20 10:10 97.5 F L 83 24 H 133/61 H 77 Inital Vital Signs reviewed: Yes General: Well nourished, Well developed, No Acute Distress Head: Normocephalic, Atraumatic Eyes: Perrl, EOMI ENT: Moist mucous membranes, No rhinorrhea Neck: Supple, Nontender Cardiovascular: Regular rate, Regular rhythm, No murmurs Respiratory: No distress, CTA bilaterally, Chest nontender Abdomen: Soft, Nontender, Nondistended, Normal bowel sounds Back: Nontender, Normal Inspection Extremities: Nontender, Edema - 2+ lower extremity edema bilaterally. Skin: Normal color, No rash Neurological: Alert, Oriented x3, Cranial nerves II-XII grossly intact, Normal Strength, Normal Sensation Psychological: Normal affect, Normal Mood Diagnostic/Tx/Re-eval Clinical Impression(s) from Imaging Studies Chest X-Ray 11/14/20 10:35 IMPRESSION: No change in severe congestive heart failure. Electronically Signed: Caleb Hinds MD at 11:15 EST Tel , Service support , Chest CTA 11/14/20 11:14 IMPRESSION: 1. No CT evidence of pulmonary embolism. 2. Bilateral pneumonia, pulmonary edema, or ARDS. 3. Moderate bilateral pleural effusions. Electronically Signed: Claeb Hinds MD at 12:24 EST Tel , Service support , Laboratory Last Values WBC 15.9 K/mm3 (4.4-11.0) H 11/14/20 10:45 RBC 3.10 M/mm3 (4.6-6.2) L 11/14/20 10:45 Hgb 8.6 g/dL (13.0-16.5) L 11/14/20 10:45 Hct 28.4 % (40-54) L 11/14/20 10:45 MCV 91.6 fL (80-94) 11/14/20 10:45 MCH 27.7 pg (27.0-32.0) 11/14/20 10:45 MCHC 30.3 g/dL (32-36) L 11/14/20 10:45 RDW Std Deviation 56.3 fl (35.1-43.9) H 11/14/20 10:45 RDW Coeff of Ej 17.2 % (11.6-14.6) H 11/14/20 10:45 Plt Count 164 K/mm3 (150-450) 11/14/20 10:45 MPV 11.3 fl (6.2-12.0) 11/14/20 10:45 Immature Gran % (Auto) 2.800 % (0.0-0.9) H 11/14/20 10:45 Neut % (Auto) 87.4 % (47-70) H 11/14/20 10:45 Lymph % (Auto) 3.7 % (19-41) L 11/14/20 10:45 [place] % (Auto) 5.3 % (0-10) 11/14/20 10:45 Eos % (Auto) 0.5 % (0-5) 11/14/20 10:45 Baso % (Auto) 0.3 % (0-1) 11/14/20 10:45 Absolute Neuts (auto) 13.9 X10^3/uL (2.0-7.7) H 11/14/20 10:45 Absolute Lymphs (auto) 0.58 X10^3/uL (0.83-4.51) L 11/14/20 10:45 Nucleated RBC % 0 % (0-5) 11/14/20 10:45 Platelet Estimate ADEQUATE (ADEQ) 11/14/20 10:45 Hypochromasia 2+ 11/14/20 10:45 PT 26.6 SECONDS (11.7-14.9) H 11/14/20 11:05 INR 2.5 11/14/20 11:05 APTT 37.6 Seconds (24.1-36.2) H 11/14/20 11:05 Sodium 146 mmol/L (136-145) H 11/14/20 10:25 Potassium 4.3 mmol/L (3.5-5.1) 11/14/20 10:25 Chloride 108 mmol/L (98-107) H 11/14/20 10:25 Carbon Dioxide 32.0 mmol/L (21.0-32.0) 11/14/20 10:25 Anion Gap 6 (5-15) 11/14/20 10:25 BUN 52 mg/dL (7-18) H 11/14/20 10:25 Creatinine 1.16 mg/dL (0.70-1.30) 11/14/20 10:25 Estim Creat Clear Calc 38.20 ml/min 11/14/20 10:25 Est GFR (MDRD) Af Amer 78 mL/min (>60) 11/14/20 10:25 Est GFR (MDRD) Non-Af 65 mL/min (>60) 11/14/20 10:25 BUN/Creatinine Ratio 44.8 RATIO (10-20) H 11/14/20 10:25 Glucose 86 mg/dL (74-106) 11/14/20 10:25 Lactic Acid 2.0 mmol/L (0.4-1.9) 11/14/20 11:05 Calcium 8.3 mg/dL (8.5-10.1) L 11/14/20 10:25 Total Bilirubin 1.00 mg/dL (0.20-1.00) 11/14/20 10:25 AST 28 U/L (15-37) 11/14/20 10:25 ALT 21 U/L (16-61) 11/14/20 10:25 Alkaline Phosphatase 98 U/L (45-117) 11/14/20 10:25 Troponin I 0.039 ng/mL (<0.045) 11/14/20 10:25 B-Natriuretic Peptide 419.1 pg/mL (0-100) H 11/14/20 11:05 Total Protein 5.5 g/dL (6.4-8.2) L 11/14/20 10:25 Albumin 2.3 g/dL (3.2-5.0) L 11/14/20 10:25 Globulin 3.2 g/dL (2.2-4.2) 11/14/20 10:25 Albumin/Globulin Ratio 0.7 RATIO (0.9-2.4) L 11/14/20 10:25 Urine Color Yellow (Yellow) 11/14/20 10:37 Urine Clarity Sl. Cloudy (Clear) 11/14/20 10:37 Urine pH 8.0 (5.0 - 8.0) 11/14/20 10:37 Ur Specific [place] 1.010 (1.002-1.030) 11/14/20 10:37 Urine Protein 15 mg/dl (Negative) H 11/14/20 10:37 Urine Glucose (UA) Normal mg/dl (Normal) 11/14/20 10:37 Urine Ketones Negative mg/dl (Negative) 11/14/20 10:37 Urine Occult Blood Negative /ul (Negative) 11/14/20 10:37 Urine Nitrite Negative (Negative) 11/14/20 10:37 Urine Bilirubin Negative mg/dL (Negative) 11/14/20 10:37 Urine Urobilinogen Normal mg/dl (Normal) 11/14/20 10:37 Ur Leukocyte Esterase Negative /ul (Negative) 11/14/20 10:37 Urine RBC 0 SEEN /hpf (0-5) 11/14/20 10:37 Urine WBC 0 SEEN /hpf (0-5) 11/14/20 10:37 Ur Squamous Epith Cells 0 SEEN /hpf (0-5) 11/14/20 10:37 Urine Bacteria 1+ /hpf (None Seen) 11/14/20 10:37 Urine Mucus 0 SEEN /hpf (<or=2+) 11/14/20 10:37 - EKG Initial EKG Interpretation: Sinus Rhythm - EKG demonstrates atrial flutter at a rate of 85. No concerning features of ACS or ectopy. - Medical Decision Making Clinically the patient appears volume overloaded. He has 2+ pitting edema. Evidence of pleural effusions. He received 80 of Lasix. His white count is 15 which is significantly elevated from his last one when he was in the hospital. Therefore given the findings on his chest CT it is difficult to say if he has a superimposed pneumonia. Because he was just in the hospital I gave him van comycin, Zosyn, and azithromycin per the protocol. After coming back from CAT scan the patient was satting 97% on [address] when fortunately declined into the 80s again. His work of breathing went up. And he was placed on BiPAP. - Critical Care Time Critical care time (excluding procedures): 30-74 minutes - 35 min, Discussing w/Patient &/or Family/Industrial Relations Director, Discussing w/Consultants, Arranging Admission or Transfer, Performing Direct Patient Care at Bedside ED Disposition - Plan for ED Patient: Disposition: [facility] Diagnosis: Acute hypoxemic respiratory failure, CHF (congestive heart failure), Pneumonia, Chronic kidney disease, COPD (chronic obstructive pulmonary disease), Anticoagulated on Coumadin Referrals: Ihsan Modi MD [Primary Care Provider] -
--- NOTE | 2020-11-14 10:35 | RAD_ITS ---
STUDY: X-RAY CHEST REASON FOR EXAM: Male, 80 years old. SHORT OF BREATH, TECHNIQUE: Single AP portable view of the chest. COMPARISON: 11/02/2020 FINDINGS: Status post median sternotomy. No change in the alveolar opacities in both lungs consistent with alveolar pulmonary edema. There is no demonstrated pleural abnormality. There is moderate cardiac enlargement. Normal mediastinum and jamal. There is prominence of the pulmonary hilar arteries and peripheral pulmonary arteries, consistent with congestive heart failure (CHF). Normal visualized aortic arch and descending thoracic aorta. Normal visualized thoracic spine. Normal visualized ribs, clavicles, and shoulders. There is no demonstrated abnormality of the visualized soft tissue structures of the upper abdomen. RAD/Chest 1 View (Portable) IMPRESSION: No change in severe congestive heart failure. Electronically Signed: Caleb Hinds MD at 11:15 EST Tel , Service support ,
--- NOTE | 2020-11-14 10:52 | NURSING ---
BLUE TOP HEMOLIZED. LAB WILL REPRINT STICKER
[2020-11-14 10:54] LABS: Absolute Lymphocyte Count 0.58 X10^3/uL (0.83-4.51); Absolute Neutrophil Count 13.9 X10^3/uL (2.0-7.7); Basophil# 0.04 X10^3/uL; Basophil% 0.3 % (0-1); Eosinophil# 0.08 X10^3/uL; Eosinophils% 0.5 % (0-5); Hematocrit 28.4 % (40-54); Hemoglobin 8.6 g/dL (13.0-16.5); Lymphocyte # 0.58 X10^3/ul (4.0); Lymphocyte % 3.7 % (19-41); Mean Corp Hgb Conc 30.3 g/dL (32-36); Mean Corpuscular Hgb 27.7 pg (27.0-32.0); Mean Corpuscular Volume 91.6 fL (80-94); Mean Platelet Vol. 11.3 fl (6.2-12.0); Monocyte# 0.84 X10^3/uL; Monocyte% 5.3 % (0-10); NRBC Flagged by Analyzer 0 % (0-5); Neutrophil # 13.88 X10^3/uL (2.7-7.7); Neutrophil % 87.4 % (47-70); POSITIVE DIFFERENTIAL YES; Platelet Count 164 K/mm3 (150-450); RBC Distribution Width CV 17.2 % (11.6-14.6); RBC Distribution Width SD 56.3 fl (35.1-43.9); White Blood Count 15.9 K/mm3 (4.4-11.0)
[2020-11-14 10:57] LABS: Mucous, Urine 0 SEEN /hpf (<or=2+); Red Blood Cells-Urine 0 SEEN /hpf (0-5); Squamous Epithelial Cells - UA 0 SEEN /hpf (0-5); White Blood Cells 0 SEEN /hpf (0-5)
[2020-11-14 11:01] LABS: Differential Indicated SCAN CRITERIA MET
[2020-11-14 11:07] LABS: Color, Urine Yellow (Yellow); Glucose, Dipstick Normal (Normal); Ketone-Dipstick Negative (Negative); Leukocyte Esterase-Dipstick Negative /ul (Negative); Nitrite-Dipstick Negative (Negative); Occult Blood-Urine Negative /ul (Negative); Protein-Dipstick 15 mg/dl (Negative); Urine Bilirubin Dipstick Negative (Negative); Urine Clarity Sl. Cloudy (Clear); Urine Urobilinogen Normal (Normal)
[2020-11-14 11:10] LABS: ALB/GLOB Ratio 0.7 RATIO (0.9-2.4); AST(SGOT) 28 U/L (15-37); Alanine Aminotransfer ALT/SGPT 21 U/L (16-61); Albumin, Serum 2.3 g/dL (3.2-5.0); Alkaline Phosphatase 98 U/L (45-117); Anion Gap 6 (5-15); BUN 52 mg/dL (7-18); BUN/Creat Ratio 44.8 RATIO (10-20); Calcium,Total 8.3 mg/dL (8.5-10.1); Chloride 108 mmol/L (98-107); Creatinine, Serum 1.16 mg/dL (0.70-1.30); EST Glomerular Filtration Rate 65 mL/min (>60); Est Glom Filt Rate - Afr Amer 78 mL/min (>60); Globulin 3.2 g/dL (2.2-4.2); Glucose 86 mg/dL (74-106); Potassium 4.3 mmol/L (3.5-5.1); Protein, Total 5.5 g/dL (6.4-8.2); Sodium Level 146 mmol/L (136-145)
--- NOTE | 2020-11-14 11:14 | CT_ITS ---
STUDY: CTA CHEST REASON FOR EXAM: Male, 80 years old. SHORT OF BREATH/HYPOXIA RADIATION DOSAGE (If Supplied By Facility): CTDIvol = ( 12.77 ) mGy, DLP = ( 408.12 ) mGycm TECHNIQUE: The examination was performed with the intravenous administration of IV 100mL Isovue-370. Post-processing of the angiographic images was performed, with multiplanar reformation and 3D reconstruction. Individualized dose optimization techniques were used for this CT. COMPARISON: Chest x-ray earlier today, CT 11/02/2020 FINDINGS: Status post median sternotomy. Normal enhancement of the main pulmonary artery and right and left pulmonary arteries. Normal enhancement of the bilateral peripheral pulmonary arteries. There is no demonstrated pulmonary embolism. Suspected graft in the ascending aorta which is unchanged. There is no demonstrated aortic dissection. Normal heart and pericardium. There are calcifications of the coronary arteries. Normal mediastinum. Normal hilar regions. Moderate-sized hiatal hernia. Normal visualized trachea and bronchi. The lungs are well expanded. Bilateral diffuse groundglass and alveolar densities consistent with bilateral pneumonia, pulmonary edema, or ARDS. Moderate bilateral pleural effusions. Normal chest wall structures. Normal osseous structures. Normal visualized upper abdomen. CT/CTA Chest W/WO Contrast IMPRESSION: 1. No CT evidence of pulmonary embolism. 2. Bilateral pneumonia, pulmonary edema, or ARDS. 3. Moderate bilateral pleural effusions. Electronically Signed: Caleb Hinds MD at 12:24 EST Tel , Service support ,
[2020-11-14 11:15] LABS: Bacteria 1+ /hpf (None Seen)
[2020-11-14 11:23] LABS: BNP,B-Type NATRIURETIC PEPTIDE 419.1 pg/mL (0-100); International Normalized Ratio 2.5; Prothrombin Time (Protime)PT. 26.6 SECONDS (11.7-14.9)
[2020-11-14 11:24] LABS: Partial Thromboplast Time 37.6 Seconds (24.1-36.2)
[2020-11-14 11:35] LABS: Hypochromasia 2+; Platelet Estimate ADEQUATE (ADEQ)
--- NOTE | 2020-11-14 12:01 | ED.RN ---
poured concrete wall technician called to state that as IV contrast was flushing that SL in Rt AC blew and she removed it.
[2020-11-14] MEDS: Furosemide 100 MG/10 ML Vial 80 MG IV ×2 (13:04→17:54)
--- NOTE | 2020-11-14 13:35 | NURSING ---
DR PHAM IN ER
--- NOTE | 2020-11-14 13:43 | NURSING ---
ICU VERO ACUTE HYPOXEMIC RESP FAILURE
--- NOTE | 2020-11-14 13:48 | NURSING ---
ICU 1
--- NOTE | 2020-11-14 14:05 | ED.RN ---
Pt's Vanessa called and updated on pt's diagnosis and admit to ICU; given ICU nurses' station phone number
--- NOTE | 2020-11-14 14:12 | HP.PCM_ITS ---
Problem List (1) Acute hypoxemic respiratory failure Status: Acute (2) CHF (congestive heart failure) Status: Acute (3) Pneumonia Status: Acute (4) Anticoagulated on Coumadin Status: Resolved (5) Abnormal cardiac enzyme level Status: Resolved (6) Acute bilateral COVID-19 pneumonia Status: Acute (7) Failed total hip arthroplasty Status: Chronic (8) Chronic left hip pain Status: Chronic (9) Other specified peripheral vascular diseases Status: Chronic (10) Tinea unguium Status: Chronic (11) Thoracoabdominal aneurysm Status: Chronic Comment: Placement of a [place] VBX 6 x 29 balloon expandable covered stent into the left renal artery aneurysm and dissection, placement of an 8 x 150 Viabahn to left popliteal aneurysm and left popliteal artery postdilated tension with a 8 x 100 mica miner blasting balloon on 04/16/2020 at [facility] with Dr. Brody Scott; (12) Closed left hip fracture Status: Chronic (13) Aortic stenosis Status: Chronic (14) DVT (deep venous thrombosis) Status: Chronic (15) Anemia Status: Chronic (16) Chronic kidney disease Status: Chronic (17) Peripheral arterial occlusive disease Status: Chronic (18) Thoracic aortic aneurysm Status: Chronic (19) Abdominal aortic aneurysm Status: Chronic Qualifiers: (20) BPH (benign prostatic hyperplasia) Status: Chronic (21) Urinary retention Status: Chronic (22) Closed right hip fracture Status: Chronic (23) Hyperlipidemia Status: Chronic Qualifiers: (24) Coronary artery disease Status: Chronic (25) Hypertension Status: Chronic Qualifiers: (26) Chronic diastolic heart failure Status: Chronic (27) Thoracic aortic aneurysm, ruptured Status: Chronic (28) Mixed hyperlipidemia Status: Chronic (29) Chronic heart failure with preserved ejection fraction Status: Chronic (30) History of aortic valve repair Status: Chronic (31) Hx of repair of ascending aorta Status: Chronic Comment: 32mm [place] graft (32) 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 transplanted heart: [place] heart Qualified Code(s): I25.10 - Atherosclerotic heart disease of [place] coronary artery without angina pectoris (36) COPD (chronic obstructive pulmonary disease) Status: Chronic (37) Tobacco abuse Status: Chronic (38) Tobacco dependence in remission Status: Chronic (39) Pulmonary embolism Status: Chronic (40) Hypothyroidism Status: Chronic (41) Atrial fibrillation Status: Chronic Qualifiers: History of Present Illness Date of Admission: 11/14/20 Nataliia read is a 80 year old WM who had a recent admission from 11/02/2020 to 11/12/2020 for acute COVID-19 pneumonia and was discharged home on 4 L nasal cannula represented to the emergency department today, 11/14/2020, complaining of hypoxemia and worsening shortness of breath. He had been on his 4 L since discharge and upon home visit today the home care nurse found his oxygen saturations in the low 80s on his 4 L. He reported feeling short of breath at night and noted in the emergency department that his legs were more swollen than normal although when I asked him he states that his legs are chronically swollen and this was about his baseline. He denies any fever or chills, nausea vomiting, cough, or chest pain, but does complain of increased shortness of breath at rest, with exertion, and with lying flat. He denies any changes in his p.o. intake after discharge including salt and fluid intake. He had his last echo done here on 02/10/2019 and this showed an EF of 55%/severe concentric LVH/biatrial enlargement/mild to moderate mitral valve insufficiency/aortic sclerosis with no stenosis/and mild elevations in right ventricular systolic pressure. His vital signs in the emergency department fluctuated from oxygen saturations in this upper 70s to 90s on 4 to 5 L nasal cannula and the patient was converted to BiPAP at 50% with an IPAP of 12 and an EPAP of 6. Oxygen saturations have stabilized to 96-98% with the initiation of BiPAP. He is afebrile, hypertensive with systolic blood pressures in the 150s to 160s and normal diastolic pressures, normal heart rate and tachypnea with respiratory rates in the 20s. A CTA of his chest was done and showed no evidence of pulmonary embolism but bilateral patchy infiltrates consistent with bilateral pneumonia versus pulmonary edema versus ARDS and mild to moderate bilateral pleural effusions. Baseline he is on 40 mg of Lasix a day. Laboratory data showed an elevated white count as compared to when he was here and on Decadron, mild stable anemia, therapeutic INR at 2.5, mild hypernatremia and hyperchloremia, mild BUN elevation with a with a mildly elevated creatinine but this appears to be his baseline BNP was 419, UA was negative. Blood cultures were obtained in the emergency department and he was started on vancomycin and Zosyn empirically. He was also given Lasix for diuresis. He will be admitted to the ICU given his intermittent need for BiPAP and potential for respiratory decompensation. Past Medical History Past Medical History (Chronic Problems): Chronic Problems (Last Reviewed 08/27/20 @ 01:[address] Naveed Rick MD) Failed total hip arthroplasty (Chronic) Chronic left hip pain (Chronic) Other specified peripheral vascular diseases (Chronic) Tinea unguium (Chronic) Thoracoabdominal aneurysm (Chronic) Placement of a [place] VBX 6 x 29 balloon expandable covered stent into the left renal artery aneurysm and dissection, placement of an 8 x 150 Vi[place]ahn to left popliteal aneurysm and left popliteal artery postdilated tension with a 8 x 100 mica miner blasting balloon on 04/16/2020 at [facility] with Dr. Brody Scott; Closed left hip fracture (Chronic) Aortic stenosis (Chronic) DVT (deep venous thrombosis) (Chronic) Anemia (Chronic) Chronic kidney disease (Chronic) Peripheral arterial occlusive disease (Chronic) Thoracic aortic aneurysm (Chronic) Abdominal aortic aneurysm (Chronic) BPH (benign prostatic hyperplasia) (Chronic) Urinary retention (Chronic) Closed right hip fracture (Chronic) Hyperlipidemia (Chronic) Coronary artery disease (Chronic) Hypertension (Chronic) Chronic diastolic heart failure (Chronic) Thoracic aortic aneurysm, ruptured (Chronic) Mixed hyperlipidemia (Chronic) Chronic heart failure with preserved ejection fraction (Chronic) History of aortic valve repair (Chronic ~10/28/07) Hx of repair of ascending aorta (Chronic ~10/28/07) 32mm [place] graft 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) Essential hypertension (Chronic) Presence of stent in coronary artery (Chronic ~05/24/06) PCI/ILANA of the of 2nd Diagonal instent restenosis 05/24/06 Atherosclerotic heart disease of [place] coronary artery without angina pectoris (Chronic) COPD (chronic obstructive pulmonary disease) (Chronic) Tobacco abuse (Chronic) Tobacco dependence in remission (Chronic) Pulmonary embolism (Chronic) Hypothyroidism (Chronic) Atrial fibrillation (Chronic) Medical History: Medical History (Last Reviewed 11/14/20 @ 14:[address] 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) Onset Date: ~10/28/07 I71.01 Essential hypertension (Chronic) I10 Atherosclerotic heart disease of [place] coronary artery without angina pectoris (Chronic) I25.10 Tobacco dependence in remission (Chronic) F17.201 Pulmonary embolism (Chronic) I26.99 Hypothyroidism (Chronic) E03.9 Atrial fibrillation (Chronic) 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) I71.3 Squamous cell carcinoma of skin (Inactive) C44.92 Allergies No Known Allergies Allergy (Verified 10/20/20 18:10) Home Medications: Ambulatory Orders Medication Instructions Recorded nitroglycerin 0.4 mg sublingual 0.4 mg SUBLINGUAL Q5-15M PRN 04/23/18 tablet levothyroxine 100 mcg tablet 150 mcg PO DAILY tab 12/04/19 Furosemide 40 mg PO DAILY 04/07/20 Rosuvastatin Calcium [Crestor] 10 mg PO QHS 05/02/20 carvedilol 25 mg tablet 25 mg PO BID 08/21/20 cholecalciferol (vitamin D3) 50 50 mcg PO DAILY 08/21/20 mcg (2,000 unit) capsule clopidogrel 75 mg tablet 75 mg PO DAILY 08/21/20 folic acid 1 mg tablet 1 mg PO DAILY 08/21/20 Acetaminophen [Tylenol] 1,000 mg PO Q8 08/28/20 Calcium Carbonate [Tums] 500 mg PO Q6H PRN PRN tab 08/28/20 Iron Polysaccharide Complex 150 mg PO DAILYCM #30 cap 09/15/20 [Ferrex 150] Menthol/Lanolin/Calamine/Znox 1 applic TOPICAL 0600,2200 tube 09/15/20 [Calmoseptine Ointment] amiodarone 200 mg tablet 200 mg PO DAILY #90 tab 10/12/20 Albuterol Inhaler [Ventolin Hfa] 2 puff INHALATION Q4H PRN PRN #1 11/12/20 inhaler Ramipril [Altace] 5 mg PO DAILY #0 11/12/20 Warfarin [Coumadin] 2 mg PO DAILY #30 tab 11/12/20 Surgical History: Surgical History (Last Reviewed 11/14/20 @ 14:[address] Elo Parham DO) Thoracoabdominal aneurysm (Chronic) I71.6 Placement of a [place] VBX 6 x 29 balloon expandable covered stent into the left renal artery aneurysm and dissection, placement of an 8 x 150 Viabahn to left popliteal aneurysm and left popliteal artery postdilated tension with a 8 x 100 mica miner blasting balloon on 04/16/2020 at [facility] with Dr. 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 Psychiatric History: No pertinent psych hx Lives: - - Lives at home with home health Smoking Status: Former smoker Alcohol: None Drugs: None - *Family History Maternal Family History: Family History (Last Reviewed 11/14/20 @ 14:[address] Elo Parham DO) Grandfather Diabetes Brother Heart disease History Items: No pertinent history Paternal Family History: Family History (Last Reviewed 11/14/20 @ 14:[address] Elo Parham DO) Grandfather Diabetes Brother Heart disease History Items: No pertinent history Offspring Family History: Family History (Last Reviewed 11/14/20 @ 14:[address] Elo Parham DO) Grandfather Diabetes Brother Heart disease History Items: Hypertension, Seizures, - - Intellectual Delay. Review of Systems Constitutional: Reports: Anorexia, Malaise, Weakness, Fatigue. Denies: Chills, Fever, Night Sweats, Weight Change Eyes: Denies: Blurred vision, Double vision, Drainage, Eyelid Inflammation, Pain, Redness, Vision Change HEENT: Reports: Difficulty Hearing. Denies: Ear Pain, Eye Pain, Head Aches, Nasal bleeding, Nasal Congestion, Sinus Congestion, Sinus Drainage, Sore Throat, Visual Changes Cardiovascular: Reports: Edema, Orthopnea. Denies: Chest Pain, Claudication, Chest Pressure, Chest Tightness, Heaviness, Light Headedness, Palpitations, Paroxysmal Noc. Dyspnea, Syncope Respiratory: Reports: Shortness of Breath, Shortness of breath at rest, Shortness of breath upon exertion. Denies: Cough, Hemoptysis, Pleuritic Pain, Sputum production, Wheezing Gastrointestinal: Denies: Abdominal Pain, Constipation, Diarrhea, Dyspepsia, Hematemesis, Hematochezia, Nausea, Melena, Vomiting Genitourinary: Reports: Hesitancy, Nocturia, Retention. Denies: Dysuria, Frequency, Hematuria, Incontinence, Urgency Musculoskeletal: Denies: Back Pain, Joint Pain, Joint stiffness, Joint swelling, Joint Tenderness Skin: Denies: Dryness, Jaundice, Lesions, Pruritis, Rash, Skin Changes, Wounds Neurological: Denies: Balance problems, Blurred vision, Double vision, Change in Speech, Slurred speech, Confusion, Difficulty swallowing, Focal weakness, Headaches, Incoordination, Numbness, Tingling, Tremor, Seizures Psychiatric: Denies: Anxiety, Depression Endocrine: Denies: Change in Body Habitus, Heat/ Cold Intolerance, Polydipsia, Polyuria Hematologic/ Lymphatic: Reports: Anemia, Easy Bruising, Hx of blood clot. Denies: Adenopathy, Easy Bleeding, Petechiae, Purpura VTE Information - Inpt Only VTE Present on Admission: No VTE Mechan Device Prophylaxis: SCD's VTE Pharm Prophylaxis ordered?: Yes Patient Problems: Active and Suspected Problems (Last Reviewed 08/27/20 @ 01:[address] Naveed Rick MD) Acute hypoxemic respiratory failure (Acute) CHF (congestive heart failure) (Acute) Pneumonia (Acute) - Physical Exam Vitals/I&O's: Vital Signs Temp Pulse Resp BP Pulse Ox 97.0 F L 68 24 H 160/53 H 96 11/14/20 13:59 11/14/20 13:59 11/14/20 13:59 11/14/20 13:59 11/14/20 13:59 Oxygen Flow Rate (L/min) 4 Oxygen Delivery Method Bi-pap Weight: 64.2 kg Body Mass Index (BMI) 26.7 Intake and Output for Last 24 Hours 11/12/20 11/13/20 11/14/20 23:59 23:59 23:59 Intake Total 50 / 50 Balance 50 / 50 General: Alert, Oriented x3, Cooperative, Well developed, Well nourished, - - Older white male currently on BiPAP, appears comfortable with good oxygen saturations at this time, nontoxic in no current respiratory distress HEENT: Atraumatic, PERRLA, EOMI, Normocephalic Oral: No Gingival or Mucosal Lesions/ Ulcerations, Dry Mucosa, - - Poor dentition, Mallampati 2 Neck: Supple, Negative Carotid Bruits, No Nodes, No Nuchal Rigidity, Trachea Midline, Thyroid Normal Size and Texture, JVD, Bilateral, - - Positive hepatojugular reflux Lungs: No rhonchi, No wheeze, Diminished - Severe and diffuse, Rales - Few at bases, Tachypneic, - - Accessory muscle use Cardiovascular: Regular rate, Normal S1, Normal S2, No murmurs, No Ectopic Activity, No rub noted, No Gallop, - - Irregular rhythm Abdomen: Bowel Sounds Present, Soft, Non Tender, Non-Distended, No Hepato- splenomegaly, No hernias noted Extremities: No clubbing, No cyanosis, Capillary Refill Less than 3 Seconds, Edema - 3+ bilateral pitting edema lower extremities, Peripheral Pulses Normal Skin: No rashes, No breakdown - Pale, - Musculoskeletal: No Tenderness to Palpation of Joints or Extremities, No Muscle Wasting, Arthritic Changes Lymphatic: No Cervical, Supraclavicular, or Inguinal Adenopathy Neurological: Cranial nerves II-XII grossly intact, Deep Tendon Reflexes 2+/4 and Symmetrical, Neuro grossly intact, Muscle tone normal, Sensory exam intact to light touch and pain, Coordination normal, - - Generalized weakness proximal greater than distal Psych/Mental Status: Appropriate, Flat Affect, - Laboratory Results 11/14/20 10:25: Sodium 146 H, Potassium 4.3, Chloride 108 H, Carbon Dioxide 32.0, Anion Gap 6, BUN 52 H, Creatinine 1.16, Estim Creat Clear Calc 38.20, Est GFR (MDRD) Af Amer 78, Est GFR (MDRD) Non-Af 65, BUN/Creatinine Ratio 44.8 H, Glucose 86, Calcium 8.3 L, Total Bilirubin 1.00, AST 28, ALT 21, Alkaline Phosphatase 98, Troponin I 0.039, Total Protein 5.5 L, Albumin 2.3 L, Globulin 3.2, Albumin/Globulin Ratio 0.7 L 11/14/20 10:37: Urine Color Yellow, Urine Clarity Sl. Cloudy, Urine pH 8.0, Ur Specific [place] 1.010, Urine Protein 15 H, Urine Glucose (UA) Normal, Urine Ketones Negative, Urine Occult Blood Negative, Urine Nitrite Negative, Urine Bilirubin Negative, Urine Urobilinogen Normal, Ur Leukocyte Esterase Negative, Urine RBC 0 SEEN, Urine WBC 0 SEEN, Ur Squamous Epith Cells 0 SEEN, Urine Bacteria 1+, Urine Mucus 0 SEEN 11/14/20 10:45: WBC 15.9 H, RBC 3.10 L, Hgb 8.6 L, Hct 28.4 L, MCV 91.6, MCH 2 7.7, MCHC 30.3 L, RDW Std Deviation 56.3 H, RDW Coeff of Ej 17.2 H, Plt Count 164, MPV 11.3, Immature Gran % (Auto) 2.800 H, Neut % (Auto) 87.4 H, Lymph % (Auto) 3.7 L, [place] % (Auto) 5.3, Eos % (Auto) 0.5, Baso % (Auto) 0.3, Absolute Neuts (auto) 13.9 H, Absolute Lymphs (auto) 0.58 L, Nucleated RBC % 0, Platelet Estimate ADEQUATE, Hypochromasia 2+ 11/14/20 11:05: Lactic Acid 2.0 11/14/20 11:05: B-Natriuretic Peptide 419.1 H 11/14/20 11:05: PT 26.6 H, INR 2.5, APTT 37.6 H Current Medications Sodium Chloride () 250 mls @ 15 mls/hr IV .[id number] PRN PRN Reason: Additional IVPB Infusion Assessment/Plan All Active Problems (Last Reviewed 08/27/20 @ 01:[address] Naveed Rick MD) Acute hypoxemic respiratory failure (Acute) CHF (congestive heart failure) (Acute) Pneumonia (Acute) Acute hypoxic respiratory failure (Acute) Acute bilateral COVID-19 pneumonia (Acute) Anticoagulated on Coumadin (Resolved) Abnormal cardiac enzyme level (Resolved) Acute hypoxic respiratory failure secondary to HCAP versus decompensated HFpEF superimposed on COVID-19 pneumonia -Supplemental oxygen as needed -We will try air Vo in the ICU and wean off BiPAP if able -Requirements on discharge 11/12/2020 or 4 L nasal cannula -CTA chest negative for PE but shows significant bilateral ARDS versus pneumonia versus heart failure -Empiric Vanco and Zosyn -Check respiratory viral panel -Check urine antigens for Legionella and strep pneumo -Blood cultures x2 are pending -Diuresis with 80 of Lasix twice daily -Monitor serum creatinine -Repeat chest x-ray in a.m. -Lactic acid is within normal limits -A.m. procalcitonin -Consult pulmonology Leukocytosis -Cultures pending -Empiric antibiotics -Repeat CBC in a.m. Bilateral lower extremity edema -Patient states that he is currently at his baseline but per ER report there is some discrepancy -We will check lower extremity Dopplers given subtherapeutic INR is recently -Diuresis -Patient did have Dopplers on 10/20/2020 that were negative for DVT at that time Suspected decompensated HFpEF -Repeat echo--> last echo was done in 2019 and EF was 55% at that time but patient did have severe concentric LVH -80 mg of Lasix twice daily for now -Closely monitor serum creatinine -Continue home medications for blood pressure -Strict I's and O's -Daily weights -Cardiac diet Permanent atrial fibrillation -Continue amiodarone -Continue Coreg -Continue warfarin at 2 mg a day -INR daily -INR therapeutic at 2.5 today which is improved from 1.8 on discharge 11/12/2020 Chronic anemia -Hemoglobin is at baseline -Continue home iron supplementation -Monitor with CBC Hypothyroidism -Continue levothyroxine CAD/HTN/HPL/PVD -Patient has history of PCI with ILANA in 2006 -Continue Coreg 25 mg daily -Continue ramipril 5 mg daily -Continue Crestor 10 mg nightly -Continue Plavix 75 mg daily COPD -Scheduled and as needed aerosols -See above History of ascending aorta repair -Stable History of thoracoabdominal aneurysm -Status post stent -Stable DVT prophylaxis -Patient fully anticoagulated with warfarin CODE STATUS -Full code Inpatient E&M: 46171 Init Hosp L3
[2020-11-14 15:09] LABS: Reflex Lactate? Y
[2020-11-14] MEDS: Ipratropium/Albuterol Sulfate 3 ML AMPUL.NEB INHALATION ×3 (16:14→23:39)
[2020-11-14] MEDS: Vancomycin IV 1,000 MG/200 ML BAG 200 MG IV (17:17)
[2020-11-14] MEDS: Jantoven 2 MG Tablet PO (17:54)
[2020-11-14 18:01] LABS: M R Staph aureus DNA By PCR Negative (Negative); Probe Check PASS; Specimen Processing Control PASS
--- NOTE | 2020-11-14 18:28 | PCM.RX.CS ---
Consult Pharmacy has been consulted to manage selected antiobiotic: Vancomycin Type of Consult: New start Suspected Infection: Pneumonia Labs: Sodium 146 mmol/L (136-145) H 11/14/20 10:25 Potassium 4.3 mmol/L (3.5-5.1) 11/14/20 10:25 Chloride 108 mmol/L (98-107) H 11/14/20 10:25 Carbon Dioxide 32.0 mmol/L (21.0-32.0) 11/14/20 10:25 Anion Gap 6 (5-15) 11/14/20 10:25 BUN 52 mg/dL (7-18) H 11/14/20 10:25 Creatinine 1.16 mg/dL (0.70-1.30) 11/14/20 10:25 Est GFR (MDRD) Af Amer 78 mL/min (>60) 11/14/20 10:25 Est GFR (MDRD) Non-Af 65 mL/min (>60) 11/14/20 10:25 BUN/Creatinine Ratio 44.8 RATIO (10-20) H 11/14/20 10:25 Glucose 86 mg/dL (74-106) 11/14/20 10:25 Microbiology: Microbiology 11/14/20 16:05 Urine, Clean Catch Legionella Antigen - Final 11/14/20 16:05 Urine, Clean Catch Streptococcus pneumoniae Antigen (M - Final Weight used for dosin kg Estimated Creatinine Clearance: 32ml/min Goal Trough: 15-20 mcg/mL Pharmacy Plan for Drug Dosing: NEW START IV VANCOMYCIN Consulting Physician: Elo Parham Indication: Pneumonia Goal Trough: 15-20 SrCr: 1.16 CrCl: 38.2 Comments: 1000mg x1 in er 11/14/20 at 1717 Vancomcyin Dose: per dosing protocol, 750mg q24h to start 11/15/20 at 1700 Pending Level: 11/16/20 at 1630 Pharmacy Service will continue to monitor and adjust dosing as required. Follow-Up Labs: Trough Vancomycin - 11/16/20 at 1630
--- NOTE | 2020-11-14 20:20 | NURSING ---
emergency documentation effective 11/14/20 at 1430
[2020-11-14] MEDS: Carvedilol 25 MG Tablet PO (21:07)
[2020-11-14] MEDS: Menthol/Lanolin/Calamine/Znox 113 GM Tube 1 APPLIC TOPICAL (21:07)
[2020-11-14] MEDS: Atorvastatin Calcium 20 MG Tablet PO (21:07)
[2020-11-15] VITALS (28 sets, daily range): BP systolic 110–148; BP diastolic 45–61; PULSE 70–92; RESP 12–26; TEMP 36.4–37.2; O2SAT 86–98
[2020-11-15] MEDS: Ipratropium/Albuterol Sulfate 3 ML AMPUL.NEB INHALATION ×6 (03:21→22:41)
[2020-11-15] MEDS: Menthol/Lanolin/Calamine/Znox 113 GM Tube 1 APPLIC TOPICAL ×2 (04:40→21:08)
[2020-11-15 04:48] LABS: Absolute Lymphocyte Count 0.61 X10^3/uL (0.83-4.51); Absolute Neutrophil Count 13.4 X10^3/uL (2.0-7.7); Basophil# 0.02 X10^3/uL; Basophil% 0.1 % (0-1); Eosinophil# 0.09 X10^3/uL; Eosinophils% 0.6 % (0-5); Hematocrit 25.9 % (40-54); Hemoglobin 8.1 g/dL (13.0-16.5); Lymphocyte # 0.61 X10^3/ul (4.0); Mean Corp Hgb Conc 31.3 g/dL (32-36); Mean Corpuscular Hgb 28.6 pg (27.0-32.0); Mean Corpuscular Volume 91.5 fL (80-94); Mean Platelet Vol. 10.7 fl (6.2-12.0); Monocyte# 0.68 X10^3/uL; Monocyte% 4.5 % (0-10); NRBC Flagged by Analyzer 0 % (0-5); Neutrophil # 13.41 X10^3/uL (2.7-7.7); Platelet Count 162 K/mm3 (150-450); RBC Distribution Width CV 17.1 % (11.6-14.6); Red Blood Count 2.83 M/mm3 (4.6-6.2); White Blood Count 15.1 K/mm3 (4.4-11.0)
[2020-11-15 04:57] LABS: International Normalized Ratio 3.3; Prothrombin Time (Protime)PT. 32.9 SECONDS (11.7-14.9)
[2020-11-15 05:03] LABS: Anion Gap 8 (5-15); BUN 43 mg/dL (7-18); Calcium,Total 7.7 mg/dL (8.5-10.1); Chloride 105 mmol/L (98-107); Creatinine, Serum 1.23 mg/dL (0.70-1.30); EST Glomerular Filtration Rate 60 mL/min (>60); Est Glom Filt Rate - Afr Amer 73 mL/min (>60); Estimated Creatinine Clearance 36.02 ml/min; Glucose 89 mg/dL (74-106); Potassium 3.6 mmol/L (3.5-5.1); Sodium Level 146 mmol/L (136-145)
--- NOTE | 2020-11-15 05:31 | PCM.CON.CC ---
Reason for Consult Date of Consultation: 11/15/20 Reason for Consultation: Acute hypoxemic respiratory failure History of Present Illness: The patient is a 80-year-old male, with a history as outlined below, who presented to the emergency department on November 14 with shortness of breath and hypoxemia. The patient had just been discharged from the hospital on November 12 after having been admitted for 10 days with respiratory failure secondary to COVID-19 pneumonia. The patient was treated with remdesivir, Decadron and IV diuretics while admitted to the hospital. The patient was discharged home on 4 L/min. Prior pulmonary function studies from May 2019 showed no evidence of COPD. On presentation to the emergency department, the patient was noted to be afebrile and hemodynamically stable. Laboratory evaluation revealed a white blood cell count of 16,000. INR was therapeutic at 2.5. Chemistry profile was largely unremarkable. Troponin was negative. BNP was elevated to 419. Urine analysis was unremarkable. MRSA screen was negative. CTA chest was obtained and showed no evidence for pulmonary embolism. There was continued evidence of bilateral groundglass changes on a background of what is likely chronic interstitial lung disease, which appeared very similar in appearance to prior CTA chest dated November 02. In the emergency department, the patient received antimicrobials and was placed on BiPAP. He was subsequently admitted to the medical intensive care unit for further management. This morning, the patient's overall oxygenation status is improved over the last 12 hours with noninvasive positive pressure ventilatory support and scheduled IV diuretic therapy. Past Medical History Past Medical History (Chronic Problems): Chronic Problems (Last Reviewed 11/14/20 @ 14:[address] 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 Brody Scott; Closed left hip fracture (Chronic) Aortic stenosis (Chronic) DVT (deep venous thrombosis) (Chronic) Anemia (Chronic) Chronic kidney disease (Chronic) Peripheral arterial occlusive disease (Chronic) Thoracic aortic aneurysm (Chronic) Abdominal aortic aneurysm (Chronic) BPH (benign prostatic hyperplasia) (Chronic) Urinary retention (Chronic) Closed right hip fracture (Chronic) Hyperlipidemia (Chronic) Coronary artery disease (Chronic) Hypertension (Chronic) Chronic diastolic heart failure (Chronic) Thoracic aortic aneurysm, ruptured (Chronic) Mixed hyperlipidemia (Chronic) Chronic heart failure with preserved ejection fraction (Chronic) History of aortic valve repair (Chronic ~10/28/07) Hx of repair of ascending aorta (Chronic ~10/28/07) 32mm Hemishield graft 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) Onset Date: ~10/28/07 I71.01 Essential hypertension (Chronic) I10 Atherosclerotic heart disease of [place] coronary artery without angina pectoris (Chronic) I25.10 Tobacco dependence in remission (Chronic) F17.201 Pulmonary embolism (Chronic) I26.99 Hypothyroidism (Chronic) E03.9 Atrial fibrillation (Chronic) 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) I71.3 Squamous cell carcinoma of skin (Inactive) C44.92 Allergies No Known Allergies Allergy (Verified 10/20/20 18:10) Home Medications: Ambulatory Orders Medication Instructions Recorded nitroglycerin 0.4 mg sublingual 0.4 mg SUBLINGUAL Q5-15M PRN 04/23/18 tablet levothyroxine 100 mcg tablet 150 mcg PO DAILY tab 12/04/19 Furosemide 40 mg PO DAILY 04/07/20 Rosuvastatin Calcium [Crestor] 10 mg PO QHS 05/02/20 carvedilol 25 mg tablet 25 mg PO BID 08/21/20 cholecalciferol (vitamin D3) 50 50 mcg PO DAILY 08/21/20 mcg (2,000 unit) capsule clopidogrel 75 mg tablet 75 mg PO DAILY 08/21/20 folic acid 1 mg tablet 1 mg PO DAILY 08/21/20 Acetaminophen [Tylenol] 1,000 mg PO Q8 08/28/20 Calcium Carbonate [Tums] 500 mg PO Q6H PRN PRN tab 08/28/20 Iron Polysaccharide Complex 150 mg PO DAILYCM #30 cap 09/15/20 [Ferrex 150] Menthol/Lanolin/Calamine/Znox 1 applic TOPICAL 0600,2200 tube 09/15/20 [Calmoseptine Ointment] amiodarone 200 mg tablet 200 mg PO DAILY #90 tab 10/12/20 Albuterol Inhaler [Ventolin Hfa] 2 puff INHALATION Q4H PRN PRN #1 11/12/20 inhaler Ramipril [Altace] 5 mg PO DAILY #0 11/12/20 Warfarin [Coumadin] 2 mg PO DAILY #30 tab 11/12/20 Surgical History: Surgical History (Last Reviewed 11/14/20 @ 14:[address] 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 Psychiatric History: No pertinent psych hx Lives: - - Lives at home with home health Smoking Status: Former smoker Alcohol: None Drugs: None - *Family History Maternal Family History: Family History (Last Reviewed 11/14/20 @ 14:[address] Elo Parham DO) Grandfather Diabetes Brother Heart disease History Items: No pertinent history Paternal Family History: Family History (Last Reviewed 11/14/20 @ 14:[address] Elo Parham DO) Grandfather Diabetes Brother Heart disease History Items: No pertinent history Offspring Family History: Family History (Last Reviewed 11/14/20 @ 14:[address] Elo Parham DO) Grandfather Diabetes Brother Heart disease History Items: Hypertension, Seizures, - - Intellectual Delay. Review of Systems Constitutional: Denies: Chills, Fever Eyes: Denies: Blurred vision, Double vision HEENT: Denies: Head Aches, Sinus Congestion, Sinus Drainage Cardiovascular: Reports: Edema. Denies: Chest Pain, Palpitations Respiratory: Reports: Shortness of Breath. Denies: Cough Gastrointestinal: Denies: Abdominal Pain, Nausea, Vomiting Genitourinary: Denies: Dysuria Musculoskeletal: Denies: Joint Pain, Joint Tenderness Skin: Denies: Rash, Wounds Neurological: Denies: Numbness, Tingling, Focal weakness Psychiatric: Denies: Anxiety, Depression, Homicidal Ideations, Suicidal Ideations Hematologic/ Lymphatic: Reports: Anemia Patient Problems: Active and Suspected Problems (Last Reviewed 11/14/20 @ 14:[address] Elo Parham DO) Acute hypoxemic respiratory failure (Acute) CHF (congestive heart failure) (Acute) Pneumonia (Acute) Acute bilateral COVID-19 pneumonia (Acute) Objective: The patient's most recent lab work, culture data and imaging studies have all been personally reviewed. Surface echocardiogram from January 2019 revealed severe concentric LVH with an ejection fraction of 55%. Right ventricular systolic pressure was estimated to be 34 mmHg. Respiratory viral panel was negative. Strep and urine Legionella antigens were negative. Blood cultures are pending. - Physical Exam Vitals/I&O's: Vital Signs Temp Pulse Resp BP Pulse Ox 97.9 F 78 22 H 145/53 H 94 11/15/20 00:00 11/15/20 03:22 11/15/20 03:22 11/15/20 02:00 11/15/20 03:15 Oxygen Flow Rate (L/min) 50 Oxygen Delivery Method Bi-pap Weight: 128 lb 15.527 oz Body Mass Index (BMI) 24.9 Intake and Output for Last 24 Hours 11/13/20 11/14/20 11/15/20 23:59 23:59 23:59 Intake Total 985 / 985 57.25 / 57.25 Output Total 2575 / 2575 Balance -1590 / -1590 57.25 / 57.25 General: Alert, Cooperative, No apparent distress HEENT: Atraumatic, Normocephalic Oral: No Gingival or Mucosal Lesions/ Ulcerations Neck: Supple, No Nodes, Trachea Midline Lungs: Diminished, - - Faint basilar rales. Cardiovascular: Regular rate, Regular Rhythm, Murmur Abdomen: Bowel Sounds Present, Soft, Non Tender Extremities: No clubbing, No cyanosis, - - Bilateral lower extremity pitting edema. Right hand amputation. Skin: No breakdown Musculoskeletal: No Tenderness to Palpation of Joints or Extremities Lymphatic: No Cervical, Supraclavicular, or Inguinal Adenopathy Neurological: Cranial nerves II-XII grossly intact, Neuro grossly intact Psych/Mental Status: Normal Affect, Appropriate Labs (Last 48 Hours) 11/14/20 11/14/20 11/14/20 10:25 10:37 10:45 WBC 15.9 H RBC 3.10 L Hgb 8.6 L Hct 28.4 L MCV 91.6 MCH 27.7 MCHC 30.3 L RDW Std Deviation 56.3 H RDW Coeff of Ej 17.2 H Plt Count 164 MPV 11.3 Immature Gran % (Auto) 2.800 H Neut % (Auto) 87.4 H Lymph % (Auto) 3.7 L White % (Auto) 5.3 Eos % (Auto) 0.5 Baso % (Auto) 0.3 Absolute Neuts (auto) 13.9 H Absolute Lymphs (auto) 0.58 L Nucleated RBC % 0 Platelet Estimate ADEQUATE Hypochromasia 2+ PT INR APTT Sodium 146 H Potassium 4.3 Chloride 108 H Carbon Dioxide 32.0 Anion Gap 6 BUN 52 H Creatinine 1.16 Estim Creat Clear Calc 38.20 Est GFR (MDRD) Af Amer 78 Est GFR (MDRD) Non-Af 65 BUN/Creatinine Ratio 44.8 H Glucose 86 Lactic Acid Calcium 8.3 L Total Bilirubin 1.00 AST 28 ALT 21 Alkaline Phosphatase 98 Troponin I 0.039 B-Natriuretic Peptide Total Protein 5.5 L Albumin 2.3 L Globulin 3.2 Albumin/Globulin Ratio 0.7 L Procalcitonin Urine Color Yellow Urine Clarity Sl. Cloudy Urine pH 8.0 Ur Specific [place] 1.010 Urine Protein 15 H Urine Glucose (UA) Normal Urine Ketones Negative Urine Occult Blood Negative Urine Nitrite Negative Urine Bilirubin Negative Urine Urobilinogen Normal Ur Leukocyte Esterase Negative Urine RBC 0 SEEN Urine WBC 0 SEEN Ur Squamous Epith Cells 0 SEEN Urine Bacteria 1+ Urine Mucus 0 SEEN MRSA (PCR) 11/14/20 11/14/20 11/14/20 11:05 11:05 11:05 WBC RBC Hgb Hct MCV MCH MCHC RDW Std Deviation RDW Coeff of Ej Plt Count MPV Immature Gran % (Auto) Neut % (Auto) Lymph % (Auto) White % (Auto) Eos % (Auto) Baso % (Auto) Absolute Neuts (auto) Absolute Lymphs (auto) Nucleated RBC % Platelet Estimate Hypochromasia PT 26.6 H INR 2.5 APTT 37.6 H Sodium Potassium Chloride Carbon Dioxide Anion Gap BUN Creatinine Estim Creat Clear Calc Est GFR (MDRD) Af Amer Est GFR (MDRD) Non-Af BUN/Creatinine Ratio Glucose Lactic Acid 2.0 Calcium Total Bilirubin AST ALT Alkaline Phosphatase Troponin I B-Natriuretic Peptide 419.1 H Total Protein Albumin Globulin Albumin/Globulin Ratio Procalcitonin Urine Color Urine Clarity Urine pH Ur Specific [place] Urine Protein Urine Glucose (UA) Urine Ketones Urine Occult Blood Urine Nitrite Urine Bilirubin Urine Urobilinogen Ur Leukocyte Esterase Urine RBC Urine WBC Ur Squamous Epith Cells Urine Bacteria Urine Mucus MRSA (PCR) 11/14/20 11/14/20 11/14/20 16:10 16:18 20:00 WBC RBC Hgb Hct MCV MCH MCHC RDW Std Deviation RDW Coeff of Ej Plt Count MPV Immature Gran % (Auto) Neut % (Auto) Lymph % (Auto) White % (Auto) Eos % (Auto) Baso % (Auto) Absolute Neuts (auto) Absolute Lymphs (auto) Nucleated RBC % Platelet Estimate Hypochromasia PT INR APTT Sodium Potassium Chloride Carbon Dioxide Anion Gap BUN Creatinine Estim Creat Clear Calc Est GFR (MDRD) Af Amer Est GFR (MDRD) Non-Af BUN/Creatinine Ratio Glucose Lactic Acid Calcium Total Bilirubin AST ALT Alkaline Phosphatase Troponin I 0.042 0.029 B-Natriuretic Peptide Total Protein Albumin Globulin Albumin/Globulin Ratio Procalcitonin Urine Color Urine Clarity Urine pH Ur Specific [place] Urine Protein Urine Glucose (UA) Urine Ketones Urine Occult Blood Urine Nitrite Urine Bilirubin Urine Urobilinogen Ur Leukocyte Esterase Urine RBC Urine WBC Ur Squamous Epith Cells Urine Bacteria Urine Mucus MRSA (PCR) Negative 11/14/20 11/15/20 11/15/20 23:05 04:30 04:30 WBC 15.1 H RBC 2.83 L Hgb 8.1 L Hct 25.9 L MCV 91.5 MCH 28.6 MCHC 31.3 L RDW Std Deviation 57.0 H RDW Coeff of Ej 17.1 H Plt Count 162 MPV 10.7 Immature Gran % (Auto) 1.800 H Neut % (Auto) 89.0 H Lymph % (Auto) 4.0 L White % (Auto) 4.5 Eos % (Auto) 0.6 Baso % (Auto) 0.1 Absolute Neuts (auto) 13.4 H Absolute Lymphs (auto) 0.61 L Nucleated RBC % 0 Platelet Estimate Hypochromasia PT 32.9 H INR 3.3 APTT Sodium Potassium Chloride Carbon Dioxide Anion Gap BUN Creatinine Estim Creat Clear Calc Est GFR (MDRD) Af Amer Est GFR (MDRD) Non-Af BUN/Creatinine Ratio Glucose Lactic Acid Calcium Total Bilirubin AST ALT Alkaline Phosphatase Troponin I 0.036 B-Natriuretic Peptide Total Protein Albumin Globulin Albumin/Globulin Ratio Procalcitonin Urine Color Urine Clarity Urine pH Ur Specific [place] Urine Protein Urine Glucose (UA) Urine Ketones Urine Occult Blood Urine Nitrite Urine Bilirubin Urine Urobilinogen Ur Leukocyte Esterase Urine RBC Urine WBC Ur Squamous Epith Cells Urine Bacteria Urine Mucus MRSA (PCR) 11/15/20 11/15/20 04:30 04:30 WBC RBC Hgb Hct MCV MCH MCHC RDW Std Deviation RDW Coeff of Ej Plt Count MPV Immature Gran % (Auto) Neut % (Auto) Lymph % (Auto) White % (Auto) Eos % (Auto) Baso % (Auto) Absolute Neuts (auto) Absolute Lymphs (auto) Nucleated RBC % Platelet Estimate Hypochromasia PT INR APTT Sodium 146 H Potassium 3.6 Chloride 105 Carbon Dioxide 33.0 H Anion Gap 8 BUN 43 H Creatinine 1.23 Estim Creat Clear Calc 36.02 Est GFR (MDRD) Af Amer 73 Est GFR (MDRD) Non-Af 60 BUN/Creatinine Ratio 35.0 H Glucose 89 Lactic Acid Calcium 7.7 L Total Bilirubin AST ALT Alkaline Phosphatase Troponin I B-Natriuretic Peptide Total Protein Albumin Globulin Albumin/Globulin Ratio Procalcitonin 0.70 H Urine Color Urine Clarity Urine pH Ur Specific [place] Urine Protein Urine Glucose (UA) Urine Ketones Urine Occult Blood Urine Nitrite Urine Bilirubin Urine Urobilinogen Ur Leukocyte Esterase Urine RBC Urine WBC Ur Squamous Epith Cells Urine Bacteria Urine Mucus MRSA (PCR) Microbiology 11/14/20 16:10 Mucosa - Nose Respiratory Panel (PCR) - Final 11/14/20 16:05 Urine, Clean Catch Legionella Antigen - Final 11/14/20 16:05 Urine, Clean Catch Streptococcus pneumoniae Antigen (M - Final Clinical Impression(s) from Imaging Studies Chest X-Ray 11/14/20 10:35 IMPRESSION: No change in severe congestive heart failure. Electronically Signed: Caleb Hinds MD at 11:15 EST Tel , Service support , Chest CTA 11/14/20 11:14 IMPRESSION: 1. No CT evidence of pulmonary embolism. 2. Bilateral pneumonia, pulmonary edema, or ARDS. 3. Moderate bilateral pleural effusions. Electronically Signed: Caleb Hinds MD at 12:24 EST Tel , Service support , Current Medications Acetaminophen (Acetaminophen 325 Mg Tablet) 650 mg PO Q6H PRN PRN PRN Reason: Pain Score 1-10/Temp > 100.7 F Albuterol Sulfate (Albuterol 2.5 Mg/3 Ml Vial.Neb.) 2.5 mg INHALATION Q2H PRN PRN PRN Reason: SOB/Wheezing Albuterol/Ipratropium (Ipratropium/Albuterol Sulfate 3 Ml Ampul.Neb) 3 ml INHALATION Q4H.RT [facility] Last Admin: 11/15/20 03:21 Dose: 3 ml Documented by: Amiodarone HCl (Amiodarone 200 Mg Tablet) 200 mg PO DAILY [facility] Atorvastatin Calcium (Atorvastatin Calcium 20 Mg Tablet) 20 mg PO QHS [facility] Last Admin: 11/14/20 21:07 Dose: 20 mg Documented by: Calamine/Phenol (Menthol/Lanolin/Calamine/Znox 113 Gm Tube) 1 applic TOPICAL 0600,2200 [facility]; Protocol Last Admin: 11/15/20 04:40 Dose: 1 applicatio Documented by: Calcium Carbonate (Calcium Carbonate 500 Mg Tablet) 500 mg PO Q6H PRN PRN PRN Reason: HEARTBURN Carvedilol (Carvedilol 25 Mg Tablet) 25 mg PO BID [facility] Last Admin: 11/14/20 21:07 Dose: 25 mg Documented by: Clopidogrel Bisulfate (Clopidogrel Bisulfate 75 Mg Tablet) 75 mg PO DAILY [facility] Folic Acid (Folic Acid 1 Mg Tablet) 1 mg PO DAILY [facility] Furosemide (Furosemide 100 Mg/10 Ml Vial) 80 mg IV BID@1000,1700 [facility] Last Admin: 11/14/20 17:54 Dose: 80 mg Documented by: Guaifenesin (Guaifenesin 10 Ml Udc (200mg/10ml)) 10 ml PO Q4H PRN PRN PRN Reason: COUGH Piperacillin Sod/Tazobactam (Sod 3.375 gm/ Sodium Chloride) 50 mls @ 12.5 mls/hr IV Q8 [facility] Stop: 11/21/20 22:01 Last Admin: 11/15/20 05:15 Dose: 12.5 mls/hr Documented by: Vancomycin IV Pharmacy to Dose (1 ea/ Sodium Chloride) 500 mls @ 250 mls/hr IV X1 PRN; Protocol PRN Reason: Rx to Dose Vancomycin HCl 750 mg/ Sodium (Chloride) 265 mls @ 250 mls/hr IV Q24H [facility] Sodium Chloride () 250 mls @ 15 mls/hr IV .[id number] PRN PRN Reason: Saline Flush Last Infusion: 11/15/20 05:15 Dose: 0 mls/hr Documented by: Levothyroxine Sodium (Levothyroxine 150 Mcg Tablet) 150 mcg PO DAILY [facility] Melatonin (Melatonin 3 Mg Tablet) 3 mg PO QHS PRN PRN PRN Reason: INSOMNIA Nitroglycerin (Nitroglycerin (Inpatient Use) 0.4 Mg Tab.Subl) 0.4 mg SUBLINGUAL Q5M PRN PRN Reason: CARDIAC/CHEST PAIN Ondansetron HCl (Ondansetron 4 Mg/2 Ml Vial) 4 mg IV Q8H PRN PRN PRN Reason: NAUSEA/VOMITING Polysaccharide Iron Complex (Iron Polysaccharide Complex 150 Mg Capsule) 150 mg PO DAILY [facility] Ramipril (Ramipril 5 Mg Capsule) 5 mg PO DAILY [facility] Senna/Docusate Sodium (Senna/Docusate Sodium 1 Tablet) 2 tablet PO BID PRN PRN PRN Reason: Constipation Sodium Chloride (0.9% Saline Lock 10 Ml Syringe) 10 - 40 ml IV UD PRN PRN Reason: SALINE FLUSH Warfarin Sodium (Jantoven 2 Mg Tablet) 2 mg PO DAILY@1700 [facility] Last Admin: 11/14/20 17:54 Dose: 2 mg Documented by: Assessment/Plan Active and Suspected Problems (Last Reviewed 11/14/20 @ 14:[address] Elo Parham, DO) Acute hypoxemic respiratory failure (Acute) CHF (congestive heart failure) (Acute) Pneumonia (Acute) Acute bilateral COVID-19 pneumonia (Acute) RECOMMENDATIONS: 1. Given improvement in FiO2 requirement, the patient can be transitioned to nasal cannula supplemental oxygen this morning. 2. Continue diuretic therapy as tolerated by hemodynamics and renal function. 3. Await repeat echocardiogram. 4. Recommend obtaining cardiology consultation. 5. Encourage incentive spirometer use and mobilize patient as tolerated. IMPRESSIONS: 1. Acute hypoxic respiratory failure The patient was recently admitted to the hospital with respiratory failure secondary to COVID-19 pneumonia and was only home for approximately 2 days prior to returning to the hospital with worsening shortness of breath and hypoxemia. The patient's CTA showed no evidence for PE and looked similar in appearance when compared to prior imaging studies from his last hospitalization, with the exception of some increased groundglass and pleural effusions. The patient was admitted to the hospital and placed on BiPAP and scheduled IV diuretic therapy. His oxygenation status has improved over the last 12 hours. My suspicion is that the patient's presenting symptoms were likely secondary to decompensated heart failure. Nevertheless, I do suspect that he also has some underlying chronic interstitial lung disease. At this time, the patient will be weaned to nasal cannula supplemental oxygen with a goal to maintain saturations at or above 90%. I would recommend that he be continued on a diuretic regimen as tolerated by hemodynamics and renal function. Cardiology consultation would also be beneficial. Repeat echocardiogram is pending. 2. Chronic diastolic CHF/history of ascending aortic dissection status post repair/paroxysmal A. fib/hypertensive urgency The patient presented to the hospital with what appeared to be a CHF exacerbation. He has responded appropriately to noninvasive positive pressure ventilatory support and diuretic therapy. The patient is currently a patient of Dr. Jones, but is not scheduled to follow-up with him until December. I would recommend that cardiology be consulted while the patient is admitted to the hospital. 3. CKD stage III/chronic anemia/hypothyroidism/advanced age Complicates care, management, recovery and prognosis. Continue home medications as indicated. CODE status: Discussed CODE status at length including difference between FULL code, DNR-CCA and DNR-CC status. Following discussions about the differences in these status, patient requested full CODE STATUS. Advanced Care Planning Face to Face Time: 12 minutes This note was generated with Cyan dictation software. It may contain incorrect words, spelling, and punctuation that were not noted in checking the note before signing. Inpatient E&M: 25058 Init Hosp L3 Procedures: 55741 Advncd Care Plan 30 Min
--- NOTE | 2020-11-15 05:55 | RAD_ITS ---
STUDY: X-RAY CHEST REASON FOR EXAM: Male, 80 years old. sob -- acute hyoxic respiratory failure TECHNIQUE: Single AP portable view of the chest. COMPARISON: 11/14/2020 FINDINGS: Status post median sternotomy. No change in the alveolar opacity throughout both lungs consistent with bilateral pneumonia. There is no demonstrated pleural abnormality. There is moderate cardiac enlargement. Normal mediastinum and jamal. Normal visualized pulmonary arteries. There is atherosclerotic tortuosity of the aortic arch and descending thoracic aorta. Normal visualized thoracic spine. Normal visualized ribs, clavicles, and shoulders. There is no demonstrated abnormality of the visualized soft tissue structures of the upper abdomen. RAD/Chest 1 View (Portable) IMPRESSION: No change in bilateral pneumonia. Electronically Signed: Caleb Hinds MD at 7:22 EST Tel , Service support ,
--- NOTE | 2020-11-15 08:01 | PN_ITS ---
Patient Problems: Active and Suspected Problems (Last Reviewed 11/14/20 @ 14:[address] Elo Parham, DO) Acute hypoxemic respiratory failure (Acute) CHF (congestive heart failure) (Acute) Pneumonia (Acute) Acute bilateral COVID-19 pneumonia (Acute) Reason for Visit: Follow-up for acute hypoxic respiratory failure secondary to CHF exacerbation and COVID-19 pneumonia Objective: Patient was admitted after almost 11 days of recent admission from 11/02-11/12 for COVID-19 pneumonia. Patient completed Decadron, remdesivir and requested to go home for last 2 to 3 days prior to discharge. Patient discharged on 4 L of oxygen. This time, patient admitted with shortness of breath, dyspnea at rest, severe hypoxemia consistent with acute hypoxic respiratory failure. 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 PFT from May 2019 showed no evidence of COPD. Last 12 hours, patient's oxygenation improved, 94% on BiPAP 40% FiO2. BP 136/53. Currently, patient is not short of breath at rest, pulse ox 92% on 10 L of oxygen. Physical exam General: Alert, Oriented x3, Cooperative HEENT: Atraumatic, PERRLA, EOMI, Normocephalic Oral: No Gingival or Mucosal Lesions/ Ulcerations Neck: Supple, No JVD, Negative Carotid Bruits Lungs: Air entry diminished in bilateral lung bases, small pleural effusion. Mild bilateral crepitations in the lung bases. Cardiovascular: Regular rate, Regular Rhythm, Normal S1, Normal S2, No murmurs Abdomen: Bowel Sounds Present, Soft, Non Tender, Non-Distended : No renal angle tenderness. No suprapubic tenderness. Extremities: Bilateral leg and ankle edema, Capillary Refill Less than 3 Seconds. Right hand, chronic accidental amputation. Skin: No rashes, No breakdown Musculoskeletal: No Tenderness to Palpation of Joints or Extremities Neurological: Cranial nerves II-XII grossly intact, Deep Tendon Reflexes 2+/4 and Symmetrical, Neuro grossly intact Psych/Mental Status: Normal Affect, Appropriate. Vitals/I&O's: Vital Signs Temp Pulse Resp BP Pulse Ox 97.5 F L 79 20 H 136/53 H 94 11/15/20 04:00 11/15/20 07:00 11/15/20 07:00 11/15/20 07:00 11/15/20 07:00 Oxygen Flow Rate (L/min) 50 Oxygen Delivery Method Bi-pap Weight: 128 lb 15.527 oz Body Mass Index (BMI) 24.9 Intake and Output for Last 24 Hours 11/13/20 11/14/20 11/15/20 23:59 23:59 23:59 Intake Total 985 / 985 177.25 / 177.25 Output Total 2575 / 2575 300 / 300 Balance -1590 / -1590 -122.75 / -122.75 Microbiology Past 72 Hours 11/14/20 16:10 Mucosa - Nose Respiratory Panel (PCR) - Final 11/14/20 16:05 Urine, Clean Catch Legionella Antigen - Final 11/14/20 16:05 Urine, Clean Catch Streptococcus pneumoniae Antigen (M - Final Laboratory Results 11/14/20 10:25: Sodium 146 H, Potassium 4.3, Chloride 108 H, Carbon Dioxide 32.0, Anion Gap 6, BUN 52 H, Creatinine 1.16, Estim Creat Clear Calc 38.20, Est GFR (MDRD) Af Amer 78, Est GFR (MDRD) Non-Af 65, BUN/Creatinine Ratio 44.8 H, Glucose 86, Calcium 8.3 L, Total Bilirubin 1.00, AST 28, ALT 21, Alkaline Phosphatase 98, Troponin I 0.039, Total Protein 5.5 L, Albumin 2.3 L, Globulin 3.2, Albumin/Globulin Ratio 0.7 L 11/14/20 10:37: Urine Color Yellow, Urine Clarity Sl. Cloudy, Urine pH 8.0, Ur Specific [place] 1.010, Urine Protein 15 H, Urine Glucose (UA) Normal, Urine Ketones Negative, Urine Occult Blood Negative, Urine Nitrite Negative, Urine Bilirubin Negative, Urine Urobilinogen Normal, Ur Leukocyte Esterase Negative, Urine RBC 0 SEEN, Urine WBC 0 SEEN, Ur Squamous Epith Cells 0 SEEN, Urine Bacteria 1+, Urine Mucus 0 SEEN 11/14/20 10:45: WBC 15.9 H, RBC 3.10 L, Hgb 8.6 L, Hct 28.4 L, MCV 91.6, MCH 27.7, MCHC 30.3 L, RDW Std Deviation 56.3 H, RDW Coeff of Ej 17.2 H, Plt Count 164, MPV 11.3, Immature Gran % (Auto) 2.800 H, Neut % (Auto) 87.4 H, Lymph % (Auto) 3.7 L, Hardy % (Auto) 5.3, Eos % (Auto) 0.5, Baso % (Auto) 0.3, Absolute Neuts (auto) 13.9 H, Absolute Lymphs (auto) 0.58 L, Nucleated RBC % 0, Platelet Estimate ADEQUATE, Hypochromasia 2+ 11/14/20 11:05: Lactic Acid 2.0 11/14/20 11:05: B-Natriuretic Peptide 419.1 H 11/14/20 11:05: PT 26.6 H, INR 2.5, APTT 37.6 H 11/14/20 16:10: MRSA (PCR) Negative 11/14/20 16:18: Troponin I 0.042 11/14/20 20:00: Troponin I 0.029 11/14/20 23:05: Troponin I 0.036 11/15/20 04:30: WBC 15.1 H, RBC 2.83 L, Hgb 8.1 L, Hct 25.9 L, MCV 91.5, MCH 28.6, MCHC 31.3 L, RDW Std Deviation 57.0 H, RDW Coeff of Ej 17.1 H, Plt Count 162, MPV 10.7, Immature Gran % (Auto) 1.800 H, Neut % (Auto) 89.0 H, Lymph % (Auto) 4.0 L, Hardy % (Auto) 4.5, Eos % (Auto) 0.6, Baso % (Auto) 0.1, Absolute Neuts (auto) 13.4 H, Absolute Lymphs (auto) 0.61 L, Nucleated RBC % 0 11/15/20 04:30: PT 32.9 H, INR 3.3 11/15/20 04:30: Sodium 146 H, Potassium 3.6, Chloride 105, Carbon Dioxide 33.0 H , Anion Gap 8, BUN 43 H, Creatinine 1.23, Estim Creat Clear Calc 36.02, Est GFR (MDRD) Af Amer 73, Est GFR (MDRD) Non-Af 60, BUN/Creatinine Ratio 35.0 H, Glucose 89, Calcium 7.7 L 11/15/20 04:30: Procalcitonin 0.70 H Current Medications Acetaminophen (Acetaminophen 325 Mg Tablet) 650 mg PO Q6H PRN PRN PRN Reason: Pain Score 1-10/Temp > 100.7 F Albuterol Sulfate (Albuterol 2.5 Mg/3 Ml Vial.Neb.) 2.5 mg INHALATION Q2H PRN PRN PRN Reason: SOB/Wheezing Albuterol/Ipratropium (Ipratropium/Albuterol Sulfate 3 Ml Ampul.Neb) 3 ml INHALATION Q4H.RT [facility] Last Admin: 11/15/20 06:51 Dose: 3 ml Documented by: Amiodarone HCl (Amiodarone 200 Mg Tablet) 200 mg PO DAILY [facility] Atorvastatin Calcium (Atorvastatin Calcium 20 Mg Tablet) 20 mg PO QHS [facility] Last Admin: 11/14/20 21:07 Dose: 20 mg Documented by: Calamine/Phenol (Menthol/Lanolin/Calamine/Znox 113 Gm Tube) 1 applic TOPICAL 0600,2200 [facility]; Protocol Last Admin: 11/15/20 04:40 Dose: 1 applicatio Documented by: Calcium Carbonate (Calcium Carbonate 500 Mg Tablet) 500 mg PO Q6H PRN PRN PRN Reason: HEARTBURN Carvedilol (Carvedilol 25 Mg Tablet) 25 mg PO BID [facility] Last Admin: 11/14/20 21:07 Dose: 25 mg Documented by: Clopidogrel Bisulfate (Clopidogrel Bisulfate 75 Mg Tablet) 75 mg PO DAILY [facility] Folic Acid (Folic Acid 1 Mg Tablet) 1 mg PO DAILY [facility] Furosemide (Furosemide 100 Mg/10 Ml Vial) 80 mg IV BID@1000,1700 [facility] Last Admin: 11/14/20 17:54 Dose: 80 mg Documented by: Guaifenesin (Guaifenesin 10 Ml Udc (200mg/10ml)) 10 ml PO Q4H PRN PRN PRN Reason: COUGH Sodium Chloride () 250 mls @ 15 mls/hr IV .[id number] PRN PRN Reason: Saline Flush Last Infusion: 11/15/20 05:15 Dose: 0 mls/hr Documented by: Levothyroxine Sodium (Levothyroxine 150 Mcg Tablet) 150 mcg PO DAILY [facility] Melatonin (Melatonin 3 Mg Tablet) 3 mg PO QHS PRN PRN PRN Reason: INSOMNIA Nitroglycerin (Nitroglycerin (Inpatient Use) 0.4 Mg Tab.Subl) 0.4 mg SUBLINGUAL Q5M PRN PRN Reason: CARDIAC/CHEST PAIN Ondansetron HCl (Ondansetron 4 Mg/2 Ml Vial) 4 mg IV Q8H PRN PRN PRN Reason: NAUSEA/VOMITING Polysaccharide Iron Complex (Iron Polysaccharide Complex 150 Mg Capsule) 150 mg PO DAILY [facility] Ramipril (Ramipril 5 Mg Capsule) 5 mg PO DAILY [facility] Senna/Docusate Sodium (Senna/Docusate Sodium 1 Tablet) 2 tablet PO BID PRN PRN PRN Reason: Constipation Sodium Chloride (0.9% Saline Lock 10 Ml Syringe) 10 - 40 ml IV UD PRN PRN Reason: SALINE FLUSH Warfarin Sodium (Jantoven 2 Mg Tablet) 2 mg PO DAILY@1700 [facility] Last Admin: 11/14/20 17:54 Dose: 2 mg Documented by: STROKE Vital Signs/Narrative: Vital Signs Pulse Resp BP Pulse Ox 11/15/20 07:00 79 20 H 136/53 H 94 11/15/20 06:51 76 15 96 11/15/20 06:00 76 16 140/61 H 95 11/15/20 05:46 78 16 95 11/15/20 05:00 80 19 H 148/51 H 94 Medical Necessity - Tobacco Use Smoking Status: Former smoker Assessment/Plan All Active Problems (Last Reviewed 11/14/20 @ 14:[address] Elo Parham, DO) Acute hypoxemic respiratory failure (Acute) CHF (congestive heart failure) (Acute) Pneumonia (Acute) Acute hypoxic respiratory failure (Acute) Acute bilateral COVID-19 pneumonia (Acute) Abnormal cardiac enzyme level (Resolved) Anticoagulated on Coumadin (Resolved) CTA chest was done and individually reviewed. Patient has diffuse bilateral alveolar opacity on the background of groundglass opacity with That pattern in bilateral upper lobes suggestive of bilateral pneumonia with chronic interstitial lung disease and moderate bilateral pleural effusion. Reported no change in bilateral pneumonia 1. Acute hypoxic respiratory failure secondary to acute on chronic HFpEF/diasto lic heart failure and bilateral COVID-19 pneumonia and possible chronic interstitial lung disease: Patient has leukocytosis. Lactic acid 2.0. Procalcitonin 0.7. Serial troponins negative. Patient has leukocytosis 15,000 which may be reactive from Decadron which she completed. MRSA PCR negative. UA no dysuria, LE and nitrite negative. Urinary antigens, respiratory panel negative. Blood cultures x2 are pending. Rapid SARS-CoV-2 antigen was positive on 11/02. I talked to the spot worker Dr. MOSLEY and he said he can have echo after he completes quarantine which will be to 11/19/20. He advised to continue the Lasix as per hemodynamics and kidney function permits, Coreg, atorvastatin, amiodarone and Altace. 2. Paroxysmal A. fib. INR 3.3. Hold Coumadin 3. stage III chronic kidney disease: Patient BUN/creatinine 43/1.23. His baseline is between 1.2-1.7. On low-dose ramipril. 4 paroxysmal atrial fibrillation: Heart rate is controlled. Sinus rhythm. 5 CAD status post stents: continue Coreg, Altace, Crestor. 6. Possible interstitial lung disease: He is on albuterol inhaler as needed. As per manager dialysis, previous PFT not consistent with diagnosis of COPD follow-up pulmonary clinic after discharge 7 anemia of chronic anemia: H&H is stable. 8. Hypothyroidism: Continue levothyroxine. 9 history of ascending aortic dissection: Status post repair, stable, no acute issues. #12 CODE STATUS: Full code, discussed with the patient. Clinical Impression(s) from Imaging Studies Chest X-Ray 11/14/20 10:35 IMPRESSION: No change in severe congestive heart failure. Electronically Signed: Caleb Hinds MD at 11:15 EST Tel , Service support , Chest CTA 11/14/20 11:14 IMPRESSION: 1. No CT evidence of pulmonary embolism. 2. Bilateral pneumonia, pulmonary edema, or ARDS. 3. Moderate bilateral pleural effusions. Electronically Signed: Caleb Hinds MD at 12:24 EST Tel , Service support , Chest X-Ray 11/15/20 05:55 IMPRESSION: No change in bilateral pneumonia. Electronically Signed: Caleb Hinds MD at 7:22 EST Tel , Service support , Inpatient E&M: [id number] [facility] Hosp L2
[2020-11-15] MEDS: Furosemide 100 MG/10 ML Vial 80 MG IV ×2 (08:39→17:05)
[2020-11-15] MEDS: Carvedilol 25 MG Tablet PO ×2 (08:39→21:08)
[2020-11-15] MEDS: Folic Acid 1 MG Tablet PO (08:41)
[2020-11-15] MEDS: Clopidogrel Bisulfate 75 MG Tablet PO (08:41)
[2020-11-15] MEDS: Amiodarone 200 MG Tablet PO (08:42)
[2020-11-15] MEDS: Ramipril 5 MG Capsule PO (08:42)
[2020-11-15] MEDS: Iron Polysaccharide Complex 150 MG CAPSULE PO (08:42)
[2020-11-15] MEDS: Levothyroxine 150 MCG Tablet PO (08:42)
[2020-11-15] MEDS: 0.9% Saline Lock 10 ML Syringe IV (17:05)
[2020-11-15] MEDS: Atorvastatin Calcium 20 MG Tablet PO (21:08)
--- NOTE | 2020-11-15 22:59 | PCS.PANDOC ---
PANDEMIC DOCUMENTATION INITIATED: Date: 11/14/20 Time: 4061
[2020-11-16] VITALS (20 sets, daily range): BP systolic 124–149; BP diastolic 50–88; PULSE 65–98; RESP 12–94; TEMP 36.5–36.8; O2SAT 26–97
[2020-11-16] MEDS: Ipratropium/Albuterol Sulfate 3 ML AMPUL.NEB INHALATION ×6 (03:07→22:30)
[2020-11-16] MEDS: Menthol/Lanolin/Calamine/Znox 113 GM Tube 1 APPLIC TOPICAL ×2 (05:40→20:05)
[2020-11-16 06:53] LABS: Absolute Lymphocyte Count 0.61 X10^3/uL (0.83-4.51); Absolute Neutrophil Count 10.1 X10^3/uL (2.0-7.7); Basophil# 0.03 X10^3/uL; Basophil% 0.3 % (0-1); Eosinophil# 0.12 X10^3/uL; Hematocrit 24.1 % (40-54); Hemoglobin 7.4 g/dL (13.0-16.5); Lymphocyte # 0.61 X10^3/ul (4.0); Lymphocyte % 5.2 % (19-41); Mean Corp Hgb Conc 30.7 g/dL (32-36); Mean Corpuscular Volume 91.3 fL (80-94); Mean Platelet Vol. 10.9 fl (6.2-12.0); Monocyte# 0.57 X10^3/uL; Monocyte% 4.9 % (0-10); NRBC Flagged by Analyzer 0 % (0-5); Neutrophil # 10.13 X10^3/uL (2.7-7.7); Neutrophil % 87.1 % (47-70); Platelet Count 179 K/mm3 (150-450); RBC Distribution Width CV 17.3 % (11.6-14.6); Red Blood Count 2.64 M/mm3 (4.6-6.2); White Blood Count 11.6 K/mm3 (4.4-11.0)
[2020-11-16 07:00] LABS: International Normalized Ratio 3.5
[2020-11-16 07:29] LABS: Anion Gap 7 (5-15); BUN 45 mg/dL (7-18); BUN/Creat Ratio 33.6 RATIO (10-20); Calcium,Total 7.7 mg/dL (8.5-10.1); Chloride 104 mmol/L (98-107); Creatinine, Serum 1.34 mg/dL (0.70-1.30); EST Glomerular Filtration Rate 55 mL/min (>60); Est Glom Filt Rate - Afr Amer 66 mL/min (>60); Estimated Creatinine Clearance 33.07 ml/min; Glucose 86 mg/dL (74-106); Potassium 3.1 mmol/L (3.5-5.1); Sodium Level 144 mmol/L (136-145)
[2020-11-16] MEDS: Levothyroxine 150 MCG Tablet PO (08:07)
[2020-11-16] MEDS: Iron Polysaccharide Complex 150 MG CAPSULE PO (08:07)
[2020-11-16] MEDS: Ramipril 5 MG Capsule PO (08:07)
[2020-11-16] MEDS: Clopidogrel Bisulfate 75 MG Tablet PO (08:07)
[2020-11-16] MEDS: Amiodarone 200 MG Tablet PO (08:07)
[2020-11-16] MEDS: Carvedilol 25 MG Tablet PO ×2 (08:07→20:04)
[2020-11-16] MEDS: Folic Acid 1 MG Tablet PO (08:07)
--- NOTE | 2020-11-16 08:29 | CASEMGMT ---
LW/POA forms scanned into summary tab of echart. CHIKI Davidson
[2020-11-16] MEDS: 0.9% Saline Lock 10 ML Syringe IV ×3 (09:57→20:12)
[2020-11-16] MEDS: Furosemide 100 MG/10 ML Vial 80 MG IV (09:57)
--- NOTE | 2020-11-16 10:15 | PN_ITS ---
Patient Problems: Active and Suspected Problems (Last Reviewed 11/14/20 @ 14:[address] Elo Parham, DO) Acute hypoxemic respiratory failure (Acute) CHF (congestive heart failure) (Acute) Pneumonia (Acute) Acute bilateral COVID-19 pneumonia (Acute) Subjective: Feels stable today, no issues overnight. Still with significant lower extremity edema Vitals/I&O's: Vital Signs Temp Pulse Resp BP Pulse Ox 98.1 F 83 18 149/67 H 93 11/16/20 08:15 11/16/20 08:15 11/16/20 08:15 11/16/20 08:15 11/16/20 08:15 Oxygen Flow Rate (L/min) 10 Oxygen Delivery Method Nasal Cannula Weight: 133 lb 12.8 oz Body Mass Index (BMI) 24.9 Intake and Output for Last 24 Hours 11/14/20 11/15/20 11/16/20 23:59 23:59 23:59 Intake Total 985 / 985 817.25 / 817.25 650 / 650 Output Total 2575 / 2575 1250 / 1250 250 / 250 Balance -1590 / -1590 -432.75 / -432.75 400 / 400 General: Alert, Oriented x3, Cooperative, No apparent distress HEENT: Atraumatic, PERRLA, EOMI, Normocephalic Oral: Moist Mucosa Neck: Supple, No JVD Lungs: Diminished, Rales Cardiovascular: Regular rate, Regular Rhythm, Normal S1, Normal S2, No murmurs Abdomen: Soft, Non Tender, Non-Distended, No Hepato-splenomegaly Extremities: Capillary Refill Less than 3 Seconds, Edema - 2+ pitting edema bilaterally Skin: No rashes, No breakdown Neurological: Neuro grossly intact, Sensory exam intact to light touch and pain Psych/Mental Status: Normal Affect, Appropriate Microbiology Past 72 Hours 11/14/20 11:05 Blood Culture (Wb) - Left Forearm Blood Culture - Preliminary No growth in 48 hours. 11/14/20 10:25 Blood Culture (Wb) - Anticubital Right Blood Culture - Preliminary No growth in 48 hours. 11/14/20 16:10 Mucosa - Nose Respiratory Panel (PCR) - Final 11/14/20 16:05 Urine, Clean Catch Legionella Antigen - Final 11/14/20 16:05 Urine, Clean Catch Streptococcus pneumoniae Antigen (M - Final Laboratory Results 02/01/21 05:50: WBC 11.6 H, RBC 2.64 L, Hgb 7.4 L, Hct 24.1 L, MCV 91.3, MCH 28.0, MCHC 30.7 L, RDW Std Deviation 57.0 H, RDW Coeff of Ej 17.3 H, Plt Count 179, MPV 10.9, Immature Gran % (Auto) 1.500 H, Neut % (Auto) 87.1 H, Lymph % (Auto) 5.2 L, [place] % (Auto) 4.9, Eos % (Auto) 1.0, Baso % (Auto) 0.3, Absolute Neuts (auto) 10.1 H, Absolute Lymphs (auto) 0.61 L, Nucleated RBC % 0 11/16/20 05:50: PT 35.0 H, INR 3.5 H* 11/16/20 05:50: Sodium 144, Potassium 3.1 L, Chloride 104, Carbon Dioxide 33.0 H , Anion Gap 7, BUN 45 H, Creatinine 1.34 H, Estim Creat Clear Calc 33.07, Est GFR (MDRD) Af Amer 66, Est GFR (MDRD) Non-Af 55 L, BUN/Creatinine Ratio 33.6 H, Glucose 86, Calcium 7.7 L Current Medications Acetaminophen (Acetaminophen 325 Mg Tablet) 650 mg PO Q6H PRN PRN PRN Reason: Pain Score 1-10/Temp > 100.7 F Albuterol Sulfate (Albuterol 2.5 Mg/3 Ml Vial.Neb.) 2.5 mg INHALATION Q2H PRN PRN PRN Reason: SOB/Wheezing Albuterol/Ipratropium (Ipratropium/Albuterol Sulfate 3 Ml Ampul.Neb) 3 ml INHALATION Q4H.RT [facility] Last Admin: 11/16/20 07:15 Dose: 3 ml Documented by: Amiodarone HCl (Amiodarone 200 Mg Tablet) 200 mg PO DAILY [facility] Last Admin: 11/16/20 08:07 Dose: 200 mg Documented by: Atorvastatin Calcium (Atorvastatin Calcium 20 Mg Tablet) 20 mg PO QHS [facility] Last Admin: 11/15/20 21:08 Dose: 20 mg Documented by: Calamine/Phenol (Menthol/Lanolin/Calamine/Znox 113 Gm Tube) 1 applic TOPICAL 0600,2200 [facility]; Protocol Last Admin: 11/16/20 05:40 Dose: 1 applicatio Documented by: Calcium Carbonate (Calcium Carbonate 500 Mg Tablet) 500 mg PO Q6H PRN PRN PRN Reason: HEARTBURN Carvedilol (Carvedilol 25 Mg Tablet) 25 mg PO BID [facility] Last Admin: 11/16/20 08:07 Dose: 25 mg Documented by: Clopidogrel Bisulfate (Clopidogrel Bisulfate 75 Mg Tablet) 75 mg PO DAILY [facility] Last Admin: 11/16/20 08:07 Dose: 75 mg Documented by: Folic Acid (Folic Acid 1 Mg Tablet) 1 mg PO DAILY [facility] Last Admin: 11/16/20 08:07 Dose: 1 mg Documented by: Furosemide (Furosemide 100 Mg/10 Ml Vial) 80 mg IV BID@1000,1700 [facility] Last Admin: 11/16/20 09:57 Dose: 80 mg Documented by: Guaifenesin (Guaifenesin 10 Ml Udc (200mg/10ml)) 10 ml PO Q4H PRN PRN PRN Reason: COUGH Sodium Chloride () 250 mls @ 15 mls/hr IV .[id number] PRN PRN Reason: Saline Flush Last Infusion: 11/15/20 05:15 Dose: 0 mls/hr Documented by: Levothyroxine Sodium (Levothyroxine 150 Mcg Tablet) 150 mcg PO DAILY [facility] Last Admin: 11/16/20 08:07 Dose: 150 mcg Documented by: Melatonin (Melatonin 3 Mg Tablet) 3 mg PO QHS PRN PRN PRN Reason: INSOMNIA Nitroglycerin (Nitroglycerin (Inpatient Use) 0.4 Mg Tab.Subl) 0.4 mg SUBLINGUAL Q5M PRN PRN Reason: CARDIAC/CHEST PAIN Ondansetron HCl (Ondansetron 4 Mg/2 Ml Vial) 4 mg IV Q8H PRN PRN PRN Reason: NAUSEA/VOMITING Polysaccharide Iron Complex (Iron Polysaccharide Complex 150 Mg Capsule) 150 mg PO DAILY [facility] Last Admin: 11/16/20 08:07 Dose: 150 mg Documented by: Ramipril (Ramipril 5 Mg Capsule) 5 mg PO DAILY [facility] Last Admin: 11/16/20 08:07 Dose: 5 mg Documented by: Senna/Docusate Sodium (Senna/Docusate Sodium 1 Tablet) 2 tablet PO BID PRN PRN PRN Reason: Constipation Sodium Chloride (0.9% Saline Lock 10 Ml Syringe) 10 - 40 ml IV UD PRN PRN Reason: SALINE FLUSH Last Admin: 11/16/20 09:57 Dose: 10 ml Documented by: LUIS Vital Signs/Narrative: Vital Signs Temp Pulse Resp BP Pulse Ox 11/16/20 08:15 98.1 F 83 18 149/67 H 93 11/16/20 07:24 92 11/16/20 07:15 71 18 92 Medical Necessity - Tobacco Use Smoking Status: Former smoker Assessment/Plan All Active Problems (Last Reviewed 11/14/20 @ 14:[address] Elo Parham, DO) Acute hypoxemic respiratory failure (Acute) CHF (congestive heart failure) (Acute) Pneumonia (Acute) Acute hypoxic respiratory failure (Acute) Acute bilateral COVID-19 pneumonia (Acute) Abnormal cardiac enzyme level (Resolved) Anticoagulated on Coumadin (Resolved) 1. Acute hypoxic respiratory failure secondary to acute on chronic diastolic CHF/bilateral COVID-19 pneumonia with possible chronic interstitial lung disease -He was recently admitted and discharged on November 12, 2020 with Covid. He presented a few days after discharge with hypoxia on his 4 L nasal cannula. -His leukocytosis was likely reactive to the Decadron which he had completed, and he remains afebrile -We will continue with Lasix, and plan for an echo either if he is still here or on discharge on 11/19/2020 after he completes his quarantine -Continue with breathing treatments, appreciate pulmonology assistance 2. Acute on chronic diastolic CHF/paroxysmal A. fib/CAD status post stents/HTN/HLD -Blood pressure stable -We will decrease his Lasix dosing from 80 mg to 40 mg, will start this tomorrow and discontinue his afternoon dose today as his creatinine has risen to 1.34, baseline is around 1.2 -Continue with his home blood pressure medications -Continue with Coumadin, Plavix, Lipitor -INR is little bit elevated so we will hold tonight's dose of Coumadin and restart tomorrow 3. Hypothyroidism -Stable -Continue with Synthroid 4. Chronic anemia -Hemoglobin is stable and baseline we will continue to monitor DVT: Coumadin Inpatient E&M: [id number] [facility] Hosp L2
--- NOTE | 2020-11-16 10:40 | PN_ITS ---
Patient Problems: Active and Suspected Problems (Last Reviewed 11/14/20 @ 14:[address] Elo Parham, DO) Acute hypoxemic respiratory failure (Acute) CHF (congestive heart failure) (Acute) Pneumonia (Acute) Acute bilateral COVID-19 pneumonia (Acute) Subjective: Patient did well overnight. Patient has tolerated nasal cannula oxygen through the day and feels subjectively improved compared to yesterday. Patient is not reporting any nausea or vomiting. Patient does have a periodic cough that is nonproductive. - Physical Exam Vitals/I&O's: Vital Signs Temp Pulse Resp BP Pulse Ox 36.7 C 83 18 149/67 H 93 11/16/20 08:15 11/16/20 08:15 11/16/20 08:15 11/16/20 08:15 11/16/20 08:15 Oxygen Flow Rate (L/min) 10 Oxygen Delivery Method Nasal Cannula Weight: 60.691 kg Body Mass Index (BMI) 24.9 Intake and Output for Last 24 Hours 11/14/20 11/15/20 11/16/20 23:59 23:59 23:59 Intake Total 985 / 985 817.25 / 817.25 650 / 650 Output Total 2575 / 2575 1250 / 1250 250 / 250 Balance -1590 / -1590 -432.75 / -432.75 400 / 400 General: Alert, Oriented x3, Cooperative, - - Mild conversational dyspnea. Thin build. HEENT: Atraumatic, PERRLA, EOMI, Normocephalic, - - No scleral icterus or i njection noted Oral: Moist Mucosa, No Gingival or Mucosal Lesions/ Ulcerations Neck: Supple, No Nodes, Trachea Midline, JVD, Right Lungs: No rhonchi, No wheeze, No rales, Diminished Cardiovascular: Regular rate, Regular Rhythm, Normal S1, Normal S2, Murmur, No rub noted, No Gallop Abdomen: Bowel Sounds Present, Soft, Non Tender, Non-Distended Extremities: No clubbing, No cyanosis, Edema - Bilateral lower extremity., - - Right hand amputation Skin: No rashes, No breakdown Musculoskeletal: No Tenderness to Palpation of Joints or Extremities Lymphatic: No Cervical, Supraclavicular, or Inguinal Adenopathy Neurological: Cranial nerves II-XII grossly intact, Neuro grossly intact, Motor Exam 5/5 strength throughout Psych/Mental Status: Alert and oriented to time, place, person, mood and affect Microbiology Past 72 Hours 11/14/20 11:05 Blood Culture (Wb) - Left Forearm Blood Culture - Preliminary No growth in 48 hours. 11/14/20 10:25 Blood Culture (Wb) - Anticubital Right Blood Culture - Preliminary No growth in 48 hours. 11/14/20 16:10 Mucosa - Nose Respiratory Panel (PCR) - Final 11/14/20 16:05 Urine, Clean Catch Legionella Antigen - Final 11/14/20 16:05 Urine, Clean Catch Streptococcus pneumoniae Antigen (M - Final Laboratory Results 11/16/20 05:50: WBC 11.6 H, RBC 2.64 L, Hgb 7.4 L, Hct 24.1 L, MCV 91.3, MCH 28.0, MCHC 30.7 L, RDW Std Deviation 57.0 H, RDW Coeff of Ej 17.3 H, Plt Count 179, MPV 10.9, Immature Gran % (Auto) 1.500 H, Neut % (Auto) 87.1 H, Lymph % (Auto) 5.2 L, [place] % (Auto) 4.9, Eos % (Auto) 1.0, Baso % (Auto) 0.3, Absolute Neuts (auto) 10.1 H, Absolute Lymphs (auto) 0.61 L, Nucleated RBC % 0 11/16/20 05:50: PT 35.0 H, INR 3.5 H* 11/16/20 05:50: Sodium 144, Potassium 3.1 L, Chloride 104, Carbon Dioxide 33.0 H , Anion Gap 7, BUN 45 H, Creatinine 1.34 H, Estim Creat Clear Calc 33.07, Est GFR (MDRD) Af Amer 66, Est GFR (MDRD) Non-Af 55 L, BUN/Creatinine Ratio 33.6 H, Glucose 86, Calcium 7.7 L Current Medications Acetaminophen (Acetaminophen 325 Mg Tablet) 650 mg PO Q6H PRN PRN PRN Reason: Pain Score 1-10/Temp > 100.7 F Albuterol Sulfate (Albuterol 2.5 Mg/3 Ml Vial.Neb.) 2.5 mg INHALATION Q2H PRN PRN PRN Reason: SOB/Wheezing Albuterol/Ipratropium (Ipratropium/Albuterol Sulfate 3 Ml Ampul.Neb) 3 ml INHALATION Q4H.RT [facility] Last Admin: 11/16/20 07:15 Dose: 3 ml Documented by: Amiodarone HCl (Amiodarone 200 Mg Tablet) 200 mg PO DAILY [facility] Last Admin: 11/16/20 08:07 Dose: 200 mg Documented by: Atorvastatin Calcium (Atorvastatin Calcium 20 Mg Tablet) 20 mg PO QHS [facility] Last Admin: 11/15/20 21:08 Dose: 20 mg Documented by: Calamine/Phenol (Menthol/Lanolin/Calamine/Znox 113 Gm Tube) 1 applic TOPICAL 0600,2200 [facility]; Protocol Last Admin: 11/16/20 05:40 Dose: 1 applicatio Documented by: Calcium Carbonate (Calcium Carbonate 500 Mg Tablet) 500 mg PO Q6H PRN PRN PRN Reason: HEARTBURN Carvedilol (Carvedilol 25 Mg Tablet) 25 mg PO BID [facility] Last Admin: 11/16/20 08:07 Dose: 25 mg Documented by: Clopidogrel Bisulfate (Clopidogrel Bisulfate 75 Mg Tablet) 75 mg PO DAILY [facility] Last Admin: 11/16/20 08:07 Dose: 75 mg Documented by: Folic Acid (Folic Acid 1 Mg Tablet) 1 mg PO DAILY [facility] Last Admin: 11/16/20 08:07 Dose: 1 mg Documented by: Guaifenesin (Guaifenesin 10 Ml Udc (200mg/10ml)) 10 ml PO Q4H PRN PRN PRN Reason: COUGH Sodium Chloride () 250 mls @ 15 mls/hr IV .[id number] PRN PRN Reason: Saline Flush Last Infusion: 11/15/20 05:15 Dose: 0 mls/hr Documented by: Levothyroxine Sodium (Levothyroxine 150 Mcg Tablet) 150 mcg PO DAILY [facility] Last Admin: 11/16/20 08:07 Dose: 150 mcg Documented by: Melatonin (Melatonin 3 Mg Tablet) 3 mg PO QHS PRN PRN PRN Reason: INSOMNIA Nitroglycerin (Nitroglycerin (Inpatient Use) 0.4 Mg Tab.Subl) 0.4 mg SUBLINGUAL Q5M PRN PRN Reason: CARDIAC/CHEST PAIN Ondansetron HCl (Ondansetron 4 Mg/2 Ml Vial) 4 mg IV Q8H PRN PRN PRN Reason: NAUSEA/VOMITING Polysaccharide Iron Complex (Iron Polysaccharide Complex 150 Mg Capsule) 150 mg PO DAILY [facility] Last Admin: 11/16/20 08:07 Dose: 150 mg Documented by: Ramipril (Ramipril 5 Mg Capsule) 5 mg PO DAILY [facility] Last Admin: 11/16/20 08:07 Dose: 5 mg Documented by: Senna/Docusate Sodium (Senna/Docusate Sodium 1 Tablet) 2 tablet PO BID PRN PRN PRN Reason: Constipation Sodium Chloride (0.9% Saline Lock 10 Ml Syringe) 10 - 40 ml IV UD PRN PRN Reason: SALINE FLUSH Last Admin: 11/16/20 09:57 Dose: 10 ml Documented by: Medical Necessity - Tobacco Use Smoking Status: Former smoker Assessment/Plan All Active Problems (Last Reviewed 11/14/20 @ 14:[address] Elo Parham, DO) Acute hypoxemic respiratory failure (Acute) CHF (congestive heart failure) (Acute) Pneumonia (Acute) Acute hypoxic respiratory failure (Acute) Acute bilateral COVID-19 pneumonia (Acute) Abnormal cardiac enzyme level (Resolved) Anticoagulated on Coumadin (Resolved) RECOMMENDATIONS: 1. Wean oxygenation as tolerated 2. Continue diuretic therapy as tolerated by hemodynamics and renal function. 3. Await repeat echocardiogram. 4. Potassium supplementation as indicated 5. Encourage incentive spirometer use and mobilize patient as tolerated. IMPRESSIONS: 1. Acute hypoxic respiratory failure The patient was recently admitted to the hospital with respiratory failure secondary to COVID-19 pneumonia and was only home for approximately 2 days prior to returning to the hospital with worsening shortness of breath and hypoxemia. The patient's CTA showed no evidence for PE and looked similar in appearance when compared to prior imaging studies from his last hospitalization, with the exception of some increased groundglass and pleural effusions. Patient still requiring significant nasal cannula oxygen to maintain saturations, but clinical suspicion for decompensated heart failure leading to repeat exacerbation. Patient does have significant underlying lung disease. Continue to diurese as tolerated. Patient may require aggressive potassium supplementation 2. Chronic diastolic CHF/history of ascending aortic dissection status post repair/paroxysmal A. fib/hypertensive urgency The patient presented to the hospital with what appeared to be a CHF exacerbation. He has responded appropriately to noninvasive positive pressure ventilatory support and diuretic therapy. The patient is currently a patient of Dr. Jones, but is not scheduled to follow-up with him until December. I would recommend that cardiology be consulted while the patient is admitted to the hospital. 3. CKD stage III/chronic anemia/hypothyroidism/advanced age Complicates care, management, recovery and prognosis. Continue home medications as indicated. Inpatient E&M: 50313 Subs Hosp L3
[2020-11-16 11:41] LABS: Magnesium 2.4 mg/dL (1.6-2.6); Phosphorus 2.9 mg/dL (2.5-4.9)
[2020-11-16] MEDS: Atorvastatin Calcium 20 MG Tablet PO (20:04)
[2020-11-17] VITALS (25 sets, daily range): BP systolic 108–154; BP diastolic 45–69; PULSE 53–86; RESP 12–27; TEMP 36.3–36.7; O2SAT 40–97
[2020-11-17] MEDS: Ipratropium/Albuterol Sulfate 3 ML AMPUL.NEB INHALATION ×6 (03:03→23:00)
[2020-11-17] MEDS: Menthol/Lanolin/Calamine/Znox 113 GM Tube 1 APPLIC TOPICAL ×2 (03:34→20:17)
--- NOTE | 2020-11-17 04:00 | NURSING ---
increased 02 to 12lnc po up to 91
[2020-11-17 06:48] LABS: Absolute Lymphocyte Count 0.67 X10^3/uL (0.83-4.51); Absolute Neutrophil Count 9.6 X10^3/uL (2.0-7.7); Basophil# 0.02 X10^3/uL; Basophil% 0.2 % (0-1); Eosinophil# 0.11 X10^3/uL; Hemoglobin 7.2 g/dL (13.0-16.5); Lymphocyte # 0.67 X10^3/ul (4.0); Mean Corpuscular Hgb 27.7 pg (27.0-32.0); Mean Corpuscular Volume 92.3 fL (80-94); Mean Platelet Vol. 10.8 fl (6.2-12.0); Monocyte# 0.56 X10^3/uL; NRBC Flagged by Analyzer 0 % (0-5); Neutrophil % 86.5 % (47-70); Platelet Count 188 K/mm3 (150-450); RBC Distribution Width CV 17.6 % (11.6-14.6); RBC Distribution Width SD 59.6 fl (35.1-43.9); White Blood Count 11.1 K/mm3 (4.4-11.0)
[2020-11-17 06:55] LABS: International Normalized Ratio 2.9; Prothrombin Time (Protime)PT. 30.1 SECONDS (11.7-14.9)
[2020-11-17 07:23] LABS: Anion Gap 6 (5-15); BUN 46 mg/dL (7-18); BUN/Creat Ratio 38.3 RATIO (10-20); Calcium,Total 7.7 mg/dL (8.5-10.1); Chloride 106 mmol/L (98-107); EST Glomerular Filtration Rate 62 mL/min (>60); Est Glom Filt Rate - Afr Amer 75 mL/min (>60); Estimated Creatinine Clearance 36.92 ml/min; Glucose 79 mg/dL (74-106); Potassium 3.8 mmol/L (3.5-5.1); Sodium Level 143 mmol/L (136-145)
--- NOTE | 2020-11-17 08:29 | PN_ITS ---
Patient Problems: Active and Suspected Problems (Last Reviewed 11/14/20 @ 14:[address] Elo Parham, DO) Acute hypoxemic respiratory failure (Acute) CHF (congestive heart failure) (Acute) Pneumonia (Acute) Acute bilateral COVID-19 pneumonia (Acute) Subjective: Patient did okay overnight. No acute issues were reported. Patient did wear BiPAP with sleep and feels subjectively improved this morning from a dyspnea standpoint. No bleeding has been reported. - Physical Exam Vitals/I&O's: Vital Signs Temp Pulse Resp BP Pulse Ox 36.6 C 85 17 132/56 H 93 11/17/20 03:35 11/17/20 07:39 11/17/20 07:12 11/17/20 03:35 11/17/20 07:12 Oxygen Flow Rate (L/min) 8 Oxygen Delivery Method Nasal Cannula Weight: 60 kg Body Mass Index (BMI) 24.9 Intake and Output for Last 24 Hours 11/15/20 11/16/20 11/17/20 23:59 23:59 23:59 Intake Total 817.25 / 817.25 1890 / 1890 Output Total 1250 / 1250 1675 / 1675 600 / 600 Balance -432.75 / -432.75 215 / 215 -600 / -600 General: Alert, Oriented x3, Cooperative, No apparent distress, - - Mild conversational dyspnea HEENT: Atraumatic, PERRLA, EOMI, Normocephalic, - - No scleral icterus or injection noted Oral: Moist Mucosa, No Gingival or Mucosal Lesions/ Ulcerations Neck: Supple, No Nodes, Trachea Midline, JVD, Right Lungs: No rhonchi, No wheeze, Diminished, Rales - Left base Cardiovascular: Normal S1, Normal S2, Irregular Rate, No rub noted, No Gallop Abdomen: Bowel Sounds Present, Soft, Non Tender, Non-Distended Extremities: No clubbing, No cyanosis, Edema - 2+ lower extremity Skin: - - No change compared to previous Musculoskeletal: No Tenderness to Palpation of Joints or Extremities Lymphatic: No Cervical, Supraclavicular, or Inguinal Adenopathy Neurological: Cranial nerves II-XII grossly intact, Neuro grossly intact, Motor Exam 5/5 strength throughout Psych/Mental Status: Alert and oriented to time, place, person, mood and affect Microbiology Past 72 Hours 11/14/20 11:05 Blood Culture (Wb) - Left Forearm Blood Culture - Preliminary No growth in 48 hours. 11/14/20 10:25 Blood Culture (Wb) - Anticubital Right Blood Culture - Preliminary No growth in 48 hours. 11/14/20 16:10 Mucosa - Nose Respiratory Panel (PCR) - Final 11/14/20 16:05 Urine, Clean Catch Legionella Antigen - Final 11/14/20 16:05 Urine, Clean Catch Streptococcus pneumoniae Antigen (M - Final Laboratory Results 11/16/20 05:50: Phosphorus 2.9, Magnesium 2.4 11/16/20 16:21: Vancomycin Trough 5.0 11/17/20 05:30: PT 30.1 H, INR 2.9 11/17/20 05:30: Sodium 143, Potassium 3.8, Chloride 106, Carbon Dioxide 31.0, Anion Gap 6, BUN 46 H, Creatinine 1.20, Estim Creat Clear Calc 36.92, Est GFR (MDRD) Af Amer 75, Est GFR (MDRD) Non-Af 62, BUN/Creatinine Ratio 38.3 H, Glucose 79, Calcium 7.7 L 11/17/20 05:30: WBC 11.1 H, RBC 2.60 L, Hgb 7.2 L, Hct 24.0 L, MCV 92.3, MCH 27.7, MCHC 30.0 L, RDW Std Deviation 59.6 H, RDW Coeff of Ej 17.6 H, Plt Count 188, MPV 10.8, Immature Gran % (Auto) 1.300 H, Neut % (Auto) 86.5 H, Lymph % (Auto) 6.0 L, [place] % (Auto) 5.0, Eos % (Auto) 1.0, Baso % (Auto) 0.2, Absolute Neuts (auto) 9.6 H, Absolute Lymphs (auto) 0.67 L, Nucleated RBC % 0 Current Medications Acetaminophen (Acetaminophen 325 Mg Tablet) 650 mg PO Q6H PRN PRN PRN Reason: Pain Score 1-10/Temp > 100.7 F Albuterol Sulfate (Albuterol 2.5 Mg/3 Ml Vial.Neb.) 2.5 mg INHALATION Q2H PRN PRN PRN Reason: SOB/Wheezing Albuterol/Ipratropium (Ipratropium/Albuterol Sulfate 3 Ml Ampul.Neb) 3 ml INHALATION Q4H.RT [facility] Last Admin: 11/17/20 07:12 Dose: 3 ml Documented by: Amiodarone HCl (Amiodarone 200 Mg Tablet) 200 mg PO DAILY [facility] Last Admin: 11/16/20 08:07 Dose: 200 mg Documented by: Atorvastatin Calcium (Atorvastatin Calcium 20 Mg Tablet) 20 mg PO QHS [facility] Last Admin: 11/16/20 20:04 Dose: 20 mg Documented by: Calamine/Phenol (Menthol/Lanolin/Calamine/Znox 113 Gm Tube) 1 applic TOPICAL 0600,2200 [facility]; Protocol Last Admin: 11/17/20 03:34 Dose: 1 applicatio Documented by: Calcium Carbonate (Calcium Carbonate 500 Mg Tablet) 500 mg PO Q6H PRN PRN PRN Reason: HEARTBURN Carvedilol (Carvedilol 25 Mg Tablet) 25 mg PO BID [facility] Last Admin: 11/16/20 20:04 Dose: 25 mg Documented by: Clopidogrel Bisulfate (Clopidogrel Bisulfate 75 Mg Tablet) 75 mg PO DAILY [facility] Last Admin: 11/16/20 08:07 Dose: 75 mg Documented by: Folic Acid (Folic Acid 1 Mg Tablet) 1 mg PO DAILY [facility] Last Admin: 11/16/20 08:07 Dose: 1 mg Documented by: Guaifenesin (Guaifenesin 10 Ml Udc (200mg/10ml)) 10 ml PO Q4H PRN PRN PRN Reason: COUGH Sodium Chloride () 250 mls @ 15 mls/hr IV .[id number] PRN PRN Reason: Saline Flush Last Infusion: 11/15/20 05:15 Dose: 0 mls/hr Documented by: Levothyroxine Sodium (Levothyroxine 150 Mcg Tablet) 150 mcg PO DAILY [facility] Last Admin: 11/16/20 08:07 Dose: 150 mcg Documented by: Melatonin (Melatonin 3 Mg Tablet) 3 mg PO QHS PRN PRN PRN Reason: INSOMNIA Nitroglycerin (Nitroglycerin (Inpatient Use) 0.4 Mg Tab.Subl) 0.4 mg SUBLINGUAL Q5M PRN PRN Reason: CARDIAC/CHEST PAIN Ondansetron HCl (Ondansetron 4 Mg/2 Ml Vial) 4 mg IV Q8H PRN PRN PRN Reason: NAUSEA/VOMITING Polysaccharide Iron Complex (Iron Polysaccharide Complex 150 Mg Capsule) 150 mg PO DAILY [facility] Last Admin: 11/16/20 08:07 Dose: 150 mg Documented by: Ramipril (Ramipril 5 Mg Capsule) 5 mg PO DAILY [facility] Last Admin: 11/16/20 08:07 Dose: 5 mg Documented by: Senna/Docusate Sodium (Senna/Docusate Sodium 1 Tablet) 2 tablet PO BID PRN PRN PRN Reason: Constipation Sodium Chloride (0.9% Saline Lock 10 Ml Syringe) 10 - 40 ml IV UD PRN PRN Reason: SALINE FLUSH Last Admin: 11/16/20 20:12 Dose: 10 ml Documented by: Medical Necessity - Tobacco Use Smoking Status: Former smoker Assessment/Plan All Active Problems (Last Reviewed 11/14/20 @ 14:[address] Elo Parham, DO) Acute hypoxemic respiratory failure (Acute) CHF (congestive heart failure) (Acute) Pneumonia (Acute) Acute hypoxic respiratory failure (Acute) Acute bilateral COVID-19 pneumonia (Acute) Abnormal cardiac enzyme level (Resolved) Anticoagulated on Coumadin (Resolved) RECOMMENDATIONS: 1. Wean oxygenation and increase activity as tolerated 2. Continue diuretic therapy as tolerated by hemodynamics and renal function. 3. Continue BiPAP with sleep 4. Potassium supplementation as indicated 5. Encourage incentive spirometer use and mobilize patient as tolerated. IMPRESSIONS: 1. Acute hypoxic respiratory failure The patient was recently admitted to the hospital with respiratory failure secondary to COVID-19 pneumonia and was only home for approximately 2 days prior to returning to the hospital with worsening shortness of breath and hypoxemia. The patient's CTA showed no evidence for PE and looked similar in appearance when compared to prior imaging studies from his last hospitalization, with the exception of some increased groundglass and pleural effusions. Patient still requiring significant nasal cannula oxygen to maintain saturations, but clinical suspicion for decompensated heart failure leading to repeat exacerbation. Patient does have significant underlying lung disease. Patient still with significant lower extremity edema on exam, so some diuretic should be continued 2. Chronic diastolic CHF/history of ascending aortic dissection status post repair/paroxysmal A. fib/hypertensive urgency The patient presented to the hospital with what appeared to be a CHF exacerbation. He has responded appropriately to noninvasive positive pressure ventilatory support and diuretic therapy. The patient is currently a patient of Dr. Jones, but is not scheduled to follow-up with him until December. I would recommend that cardiology be consulted while the patient is admitted to the hospital. 3. CKD stage III/chronic anemia/hypothyroidism/advanced age Complicates care, management, recovery and prognosis. Continue home medications as indicated. Inpatient E&M: 36264 Subs Hosp L3
--- NOTE | 2020-11-17 09:21 | PCM.PN.HOSP ---
Patient Problems: Active and Suspected Problems (Last Reviewed 11/14/20 @ 14:[address] Elo Parham, DO) Acute hypoxemic respiratory failure (Acute) CHF (congestive heart failure) (Acute) Pneumonia (Acute) Acute bilateral COVID-19 pneumonia (Acute) Subjective: Feels little bit better today, down from 10 L nasal cannula to 8 L. We will continue to monitor Vitals/I&O's: Vital Signs Temp Pulse Resp BP Pulse Ox 97.8 F 85 17 132/56 H 93 11/17/20 03:35 11/17/20 07:39 11/17/20 07:12 11/17/20 03:35 11/17/20 07:12 Oxygen Flow Rate (L/min) 8 Oxygen Delivery Method Nasal Cannula Weight: 132 lb 4.438 oz Body Mass Index (BMI) 24.9 Intake and Output for Last 24 Hours 11/15/20 11/16/20 11/17/20 23:59 23:59 23:59 Intake Total 817.25 / 817.25 1890 / 1890 Output Total 1250 / 1250 1675 / 1675 600 / 600 Balance -432.75 / -432.75 215 / 215 -600 / -600 General: Alert, Oriented x3, Cooperative, No apparent distress HEENT: Atraumatic, PERRLA, EOMI, Normocephalic Oral: Moist Mucosa Neck: Supple, No JVD Lungs: Diminished, Rales Cardiovascular: Regular rate, Regular Rhythm, Normal S1, Normal S2, No murmurs Abdomen: Soft, Non Tender, Non-Distended, No Hepato-splenomegaly Extremities: Capillary Refill Less than 3 Seconds, Edema - 2+ pitting edema bilaterally Skin: No rashes, No breakdown Neurological: Neuro grossly intact, Sensory exam intact to light touch and pain Psych/Mental Status: Normal Affect, Appropriate Microbiology Past 72 Hours 11/14/20 11:05 Blood Culture (Wb) - Left Forearm Blood Culture - Preliminary No growth in 48 hours. 11/14/20 10:25 Blood Culture (Wb) - Anticubital Right Blood Culture - Preliminary No growth in 48 hours. 11/14/20 16:10 Mucosa - Nose Respiratory Panel (PCR) - Final 11/14/20 16:05 Urine, Clean Catch Legionella Antigen - Final 11/14/20 16:05 Urine, Clean Catch Streptococcus pneumoniae Antigen (M - Final Laboratory Results 11/16/20 05:50: Phosphorus 2.9, Magnesium 2.4 11/16/20 16:21: Vancomycin Trough 5.0 11/17/20 05:30: PT 30.1 H, INR 2.9 11/17/20 05:30: Sodium 143, Potassium 3.8, Chloride 106, Carbon Dioxide 31.0, Anion Gap 6, BUN 46 H, Creatinine 1.20, Estim Creat Clear Calc 36.92, Est GFR (MDRD) Af Amer 75, Est GFR (MDRD) Non-Af 62, BUN/Creatinine Ratio 38.3 H, Glucose 79, Calcium 7.7 L 11/17/20 05:30: WBC 11.1 H, RBC 2.60 L, Hgb 7.2 L, Hct 24.0 L, MCV 92.3, MCH 27.7, MCHC 30.0 L, RDW Std Deviation 59.6 H, RDW Coeff of Ej 17.6 H, Plt Count 188, MPV 10.8, Immature Gran % (Auto) 1.300 H, Neut % (Auto) 86.5 H, Lymph % (Auto) 6.0 L, [place] % (Auto) 5.0, Eos % (Auto) 1.0, Baso % (Auto) 0.2, Absolute Neuts (auto) 9.6 H, Absolute Lymphs (auto) 0.67 L, Nucleated RBC % 0 Current Medications Acetaminophen (Acetaminophen 325 Mg Tablet) 650 mg PO Q6H PRN PRN PRN Reason: Pain Score 1-10/Temp > 100.7 F Albuterol Sulfate (Albuterol 2.5 Mg/3 Ml Vial.Neb.) 2.5 mg INHALATION Q2H PRN PRN PRN Reason: SOB/Wheezing Albuterol/Ipratropium (Ipratropium/Albuterol Sulfate 3 Ml Ampul.Neb) 3 ml INHALATION Q4H.RT [facility] Last Admin: 11/17/20 07:12 Dose: 3 ml Documented by: Amiodarone HCl (Amiodarone 200 Mg Tablet) 200 mg PO DAILY [facility] Last Admin: 11/16/20 08:07 Dose: 200 mg Documented by: Atorvastatin Calcium (Atorvastatin Calcium 20 Mg Tablet) 20 mg PO QHS [facility] Last Admin: 02/01/21 20:04 Dose: 20 mg Documented by: Calamine/Phenol (Menthol/Lanolin/Calamine/Znox 113 Gm Tube) 1 applic TOPICAL 0600,2200 [facility]; Protocol Last Admin: 11/17/20 03:34 Dose: 1 applicatio Documented by: Calcium Carbonate (Calcium Carbonate 500 Mg Tablet) 500 mg PO Q6H PRN PRN PRN Reason: HEARTBURN Carvedilol (Carvedilol 25 Mg Tablet) 25 mg PO BID [facility] Last Admin: 11/16/20 20:04 Dose: 25 mg Documented by: Clopidogrel Bisulfate (Clopidogrel Bisulfate 75 Mg Tablet) 75 mg PO DAILY [facility] Last Admin: 11/16/20 08:07 Dose: 75 mg Documented by: Folic Acid (Folic Acid 1 Mg Tablet) 1 mg PO DAILY [facility] Last Admin: 11/16/20 08:07 Dose: 1 mg Documented by: Furosemide (Furosemide 40 Mg Tablet) 40 mg PO DAILY [facility] Guaifenesin (Guaifenesin 10 Ml Udc (200mg/10ml)) 10 ml PO Q4H PRN PRN PRN Reason: COUGH Sodium Chloride () 250 mls @ 15 mls/hr IV .[id number] PRN PRN Reason: Saline Flush Last Infusion: 11/15/20 05:15 Dose: 0 mls/hr Documented by: Levothyroxine Sodium (Levothyroxine 150 Mcg Tablet) 150 mcg PO DAILY [facility] Last Admin: 11/16/20 08:07 Dose: 150 mcg Documented by: Melatonin (Melatonin 3 Mg Tablet) 3 mg PO QHS PRN PRN PRN Reason: INSOMNIA Nitroglycerin (Nitroglycerin (Inpatient Use) 0.4 Mg Tab.Subl) 0.4 mg SUBLINGUAL Q5M PRN PRN Reason: CARDIAC/CHEST PAIN Ondansetron HCl (Ondansetron 4 Mg/2 Ml Vial) 4 mg IV Q8H PRN PRN PRN Reason: NAUSEA/VOMITING Polysaccharide Iron Complex (Iron Polysaccharide Complex 150 Mg Capsule) 150 mg PO DAILY [facility] Last Admin: 11/16/20 08:07 Dose: 150 mg Documented by: Ramipril (Ramipril 5 Mg Capsule) 5 mg PO DAILY [facility] Last Admin: 11/16/20 08:07 Dose: 5 mg Documented by: Senna/Docusate Sodium (Senna/Docusate Sodium 1 Tablet) 2 tablet PO BID PRN PRN PRN Reason: Constipation Sodium Chloride (0.9% Saline Lock 10 Ml Syringe) 10 - 40 ml IV UD PRN PRN Reason: SALINE FLUSH Last Admin: 11/16/20 20:12 Dose: 10 ml Documented by: STROKE Vital Signs/Narrative: Vital Signs Pulse Resp Pulse Ox 11/17/20 07:39 85 11/17/20 07:12 83 17 93 Medical Necessity - Tobacco Use Smoking Status: Former smoker Assessment/Plan All Active Problems (Last Reviewed 11/14/20 @ 14:[address] Elo Parham, DO) Acute hypoxemic respiratory failure (Acute) CHF (congestive heart failure) (Acute) Pneumonia (Acute) Acute hypoxic respiratory failure (Acute) Acute bilateral COVID-19 pneumonia (Acute) Abnormal cardiac enzyme level (Resolved) Anticoagulated on Coumadin (Resolved) 1. Acute hypoxic respiratory failure secondary to acute on chronic diastolic CHF/bilateral COVID-19 pneumonia with possible chronic interstitial lung disease -He was recently admitted and discharged on November 12, 2020 with Covid. He presented a few days after discharge with hypoxia on his 4 L nasal cannula. -His leukocytosis was likely reactive to the Decadron which he had completed, and he remains afebrile -We will continue with Lasix, and plan for an echo either if he is still here or on discharge on 11/19/2020 after he completes his quarantine -Continue with breathing treatments, appreciate pulmonology assistance -Evaluated by PT/OT for possible placement given his prolonged hospitalization 2. Acute on chronic diastolic CHF/paroxysmal A. fib/CAD status post stents/HTN/HLD -Blood pressure stable -We will decrease his Lasix dosing from 80 mg to 40 mg, creatinine is back to baseline -Continue with his home blood pressure medications -Continue with Coumadin, Plavix, Lipitor -INR is down to 2.9, can restart his Coumadin 3. Hypothyroidism -Stable -Continue with Synthroid 4. Chronic anemia -Hemoglobin dropped again today to 7.2, given his cardiac history we will transfuse 1 unit DVT: Coumadin Inpatient E&M: 10541 Subs Hosp L2
[2020-11-17] MEDS: Amiodarone 200 MG Tablet PO (10:07)
[2020-11-17] MEDS: Folic Acid 1 MG Tablet PO (10:07)
[2020-11-17] MEDS: Clopidogrel Bisulfate 75 MG Tablet PO (10:07)
[2020-11-17] MEDS: Levothyroxine 150 MCG Tablet PO (10:07)
[2020-11-17] MEDS: Carvedilol 25 MG Tablet PO ×2 (10:07→20:17)
[2020-11-17] MEDS: Iron Polysaccharide Complex 150 MG CAPSULE PO (10:07)
[2020-11-17] MEDS: Ramipril 5 MG Capsule PO (10:07)
[2020-11-17] MEDS: Furosemide 40 MG Tablet PO (10:10)
--- NOTE | 2020-11-17 12:41 | CASEMGMT ---
As per physician, pt may need long term placement at discharge. SW called pt on both the hospital and cell phone, he did not answer. SW called pt's , message left. ELVIN will continue to follow. CHIKI Davidson
--- NOTE | 2020-11-17 12:43 | CASEMGMT ---
[facility] Readmission Note Previous Admission: 11/02/20-11/12/20 Diagnosis: COVID-19 pneumonia DC Disposition: Home with oxygen through [facility] Current Admission Presentation: Acute hypoxic respiratory failure-CHF The patient presented back to ED with shortness of breath during the night, and lower extremity edema. CXR showed severe congestive heart failure. Received 80 mg IV Lasix in ER and started on 40 mg po daily. SNF was recommended and pt is agreeable. SW will follow re: placement on discharge. Ela FAY RN ACM
--- NOTE | 2020-11-17 15:48 | CASEMGMT ---
SW called pt in the room, he answered. SW spoke w/pt about going somewhere for rehab, that physician had stated earlier he may benefit from going somewhere for rehab before going home. Pt asked about TCU, SW explained that TCU will not be able to take pt as pt has COVID. SW explained will have nurse bring in list of nursing homes that may be able to take him. Pt states he does not want to go to a rest home, asked about home health. SW explained we will see how pt does over the next day or so and then call him again in regard to the discharge plan. Pt states understanding. Plan: TBD, will continue to follow. CHIKI Davidson
[2020-11-17] MEDS: Jantoven 2 MG Tablet PO (15:58)
[2020-11-17] MEDS: 0.9% Saline Lock 10 ML Syringe IV ×2 (17:45→20:18)
[2020-11-17] MEDS: Atorvastatin Calcium 20 MG Tablet PO (20:17)
[2020-11-18] VITALS (20 sets, daily range): BP systolic 118–158; BP diastolic 56–90; PULSE 70–100; RESP 12–27; TEMP 36.3–37.4; O2SAT 82–96
[2020-11-18] MEDS: Ipratropium/Albuterol Sulfate 3 ML AMPUL.NEB INHALATION ×6 (02:18→23:28)
--- NOTE | 2020-11-18 02:49 | CPS ---
Pt.'s FiO2 increased to 60%; increased in oxygen demands
[2020-11-18] MEDS: Menthol/Lanolin/Calamine/Znox 113 GM Tube 1 APPLIC TOPICAL ×2 (06:20→21:18)
[2020-11-18 07:22] LABS: Anion Gap 4 (5-15); BUN 40 mg/dL (7-18); BUN/Creat Ratio 33.9 RATIO (10-20); Chloride 108 mmol/L (98-107); Creatinine, Serum 1.18 mg/dL (0.70-1.30); EST Glomerular Filtration Rate 63 mL/min (>60); Est Glom Filt Rate - Afr Amer 77 mL/min (>60); Estimated Creatinine Clearance 37.55 ml/min; Glucose 85 mg/dL (74-106); Potassium 3.9 mmol/L (3.5-5.1); Sodium Level 143 mmol/L (136-145)
--- NOTE | 2020-11-18 09:41 | PN_ITS ---
Patient Problems: Active and Suspected Problems (Last Reviewed 11/14/20 @ 14:[address] Elo Parham, DO) Acute hypoxemic respiratory failure (Acute) CHF (congestive heart failure) (Acute) Pneumonia (Acute) Acute bilateral COVID-19 pneumonia (Acute) Subjective: Stable, no issues overnight. Still on 10 L nasal cannula will try to wean that during the day. Continue with his oral Lasix Vitals/I&O's: Vital Signs Temp Pulse Resp BP Pulse Ox 97.9 F 100 18 142/56 H 92 11/18/20 08:38 11/18/20 08:38 11/18/20 08:38 11/18/20 08:38 11/18/20 08:38 Oxygen Flow Rate (L/min) 10 Oxygen Delivery Method Nasal Cannula Weight: 133 lb 6.075 oz Body Mass Index (BMI) 24.9 Intake and Output for Last 24 Hours 11/16/20 11/17/20 11/18/20 23:59 23:59 23:59 Intake Total 1890 / 1890 1300 / 1300 300 / 300 Output Total 1675 / 1675 2575 / 2575 400 / 400 Balance 215 / 215 -1275 / -1275 -100 / -100 General: Alert, Oriented x3, Cooperative, No apparent distress HEENT: Atraumatic, PERRLA, EOMI, Normocephalic Oral: Moist Mucosa Neck: Supple, No JVD Lungs: Diminished, Rales Cardiovascular: Regular rate, Regular Rhythm, Normal S1, Normal S2, No murmurs Abdomen: Soft, Non Tender, Non-Distended, No Hepato-splenomegaly Extremities: Capillary Refill Less than 3 Seconds, Edema - 1+ pitting edema bilaterally Skin: No rashes, No breakdown Neurological: Neuro grossly intact, Sensory exam intact to light touch and pain Psych/Mental Status: Normal Affect, Appropriate Microbiology Past 72 Hours 11/14/20 11:05 Blood Culture (Wb) - Left Forearm Blood Culture - Preliminary No growth in 48 hours. 11/14/20 10:25 Blood Culture (Wb) - Anticubital Right Blood Culture - Preliminary No growth in 48 hours. Laboratory Results 11/17/20 10:10: Blood Type AB POSITIVE, Antibody Screen NEGATIVE, Crossmatch See Detail 11/18/20 06:25: PT 31.0 H, INR 3.0 11/18/20 06:25: Sodium 143, Potassium 3.9, Chloride 108 H, Carbon Dioxide 31.0, Anion Gap 4 L, BUN 40 H, Creatinine 1.18, Estim Creat Clear Calc 37.55, Est GFR (MDRD) Af Amer 77, Est GFR (MDRD) Non-Af 63, BUN/Creatinine Ratio 33.9 H, Glucose 85, Calcium 8.0 L Current Medications Acetaminophen (Acetaminophen 325 Mg Tablet) 650 mg PO Q6H PRN PRN PRN Reason: Pain Score 1-10/Temp > 100.7 F Albuterol Sulfate (Albuterol 2.5 Mg/3 Ml Vial.Neb.) 2.5 mg INHALATION Q2H PRN PRN PRN Reason: SOB/Wheezing Albuterol/Ipratropium (Ipratropium/Albuterol Sulfate 3 Ml Ampul.Neb) 3 ml INHALATION Q4H.RT [facility] Last Admin: 11/18/20 06:50 Dose: 3 ml Documented by: Amiodarone HCl (Amiodarone 200 Mg Tablet) 200 mg PO DAILY [facility] Last Admin: 11/17/20 10:07 Dose: 200 mg Documented by: Atorvastatin Calcium (Atorvastatin Calcium 20 Mg Tablet) 20 mg PO QHS [facility] Last Admin: 11/17/20 20:17 Dose: 20 mg Documented by: Calamine/Phenol (Menthol/Lanolin/Calamine/Znox 113 Gm Tube) 1 applic TOPICAL 0600,2200 [facility]; Protocol Last Admin: 11/18/20 06:20 Dose: 1 applicatio Documented by: Calcium Carbonate (Calcium Carbonate 500 Mg Tablet) 500 mg PO Q6H PRN PRN PRN Reason: HEARTBURN Carvedilol (Carvedilol 25 Mg Tablet) 25 mg PO BID [facility] Last Admin: 11/17/20 20:17 Dose: 25 mg Documented by: Clopidogrel Bisulfate (Clopidogrel Bisulfate 75 Mg Tablet) 75 mg PO DAILY [facility] Last Admin: 11/17/20 10:07 Dose: 75 mg Documented by: Folic Acid (Folic Acid 1 Mg Tablet) 1 mg PO DAILY [facility] Last Admin: 11/17/20 10:07 Dose: 1 mg Documented by: Furosemide (Furosemide 40 Mg Tablet) 40 mg PO DAILY [facility] Last Admin: 11/17/20 10:10 Dose: 40 mg Documented by: Guaifenesin (Guaifenesin 10 Ml Udc (200mg/10ml)) 10 ml PO Q4H PRN PRN PRN Reason: COUGH Sodium Chloride () 250 mls @ 15 mls/hr IV .[id number] PRN PRN Reason: Saline Flush Last Infusion: 11/15/20 05:15 Dose: 0 mls/hr Documented by: Levothyroxine Sodium (Levothyroxine 150 Mcg Tablet) 150 mcg PO DAILY [facility] Last Admin: 11/17/20 10:07 Dose: 150 mcg Documented by: Melatonin (Melatonin 3 Mg Tablet) 3 mg PO QHS PRN PRN PRN Reason: INSOMNIA Nitroglycerin (Nitroglycerin (Inpatient Use) 0.4 Mg Tab.Subl) 0.4 mg SUBLINGUAL Q5M PRN PRN Reason: CARDIAC/CHEST PAIN Ondansetron HCl (Ondansetron 4 Mg/2 Ml Vial) 4 mg IV Q8H PRN PRN PRN Reason: NAUSEA/VOMITING Polysaccharide Iron Complex (Iron Polysaccharide Complex 150 Mg Capsule) 150 mg PO DAILY [facility] Last Admin: 11/17/20 10:07 Dose: 150 mg Documented by: Ramipril (Ramipril 5 Mg Capsule) 5 mg PO DAILY [facility] Last Admin: 11/17/20 10:07 Dose: 5 mg Documented by: Senna/Docusate Sodium (Senna/Docusate Sodium 1 Tablet) 2 tablet PO BID PRN PRN PRN Reason: Constipation Sodium Chloride (0.9% Saline Lock 10 Ml Syringe) 10 - 40 ml IV UD PRN PRN Reason: SALINE FLUSH Last Admin: 11/17/20 20:18 Dose: 10 ml Documented by: Warfarin Sodium (Jantoven 2 Mg Tablet) 2 mg PO DAILY@1700 [facility] Last Admin: 11/17/20 15:58 Dose: 2 mg Documented by: STROKE Vital Signs/Narrative: Vital Signs Temp Pulse Resp BP Pulse Ox 11/18/20 08:38 97.9 F 100 18 142/56 H 92 11/18/20 07:22 78 11/18/20 06:51 91 11/18/20 06:50 78 20 H 82 Medical Necessity - Tobacco Use Smoking Status: Former smoker Assessment/Plan All Active Problems (Last Reviewed 11/14/20 @ 14:[address] Elo Parham DO) Acute hypoxemic respiratory failure (Acute) CHF (congestive heart failure) (Acute) Pneumonia (Acute) Acute hypoxic respiratory failure (Acute) Acute bilateral COVID-19 pneumonia (Acute) Abnormal cardiac enzyme level (Resolved) Anticoagulated on Coumadin (Resolved) 1. Acute hypoxic respiratory failure secondary to acute on chronic diastolic CHF/bilateral COVID-19 pneumonia with possible chronic interstitial lung disease -He was recently admitted and discharged on November 12, 2020 with Covid. He presented a few days after discharge with hypoxia on his 4 L nasal cannula. -His leukocytosis was likely reactive to the Decadron which he had completed, and he remains afebrile -We will continue with Lasix, and plan for an echo either if he is still here or on discharge on 11/19/2020 after he completes his quarantine -We will give a one-time dose of Lasix this evening IV -Continue with breathing treatments, appreciate pulmonology assistance -Evaluated by PT/OT for possible placement given his prolonged hospitalization 2. Acute on chronic diastolic CHF/paroxysmal A. fib/CAD status post stents/HTN/HLD -Blood pressure stable -We will decrease his Lasix dosing from 80 mg to 40 mg, creatinine is back to baseline -Continue with his home blood pressure medications -Continue with Coumadin, Plavix, Lipitor 3. Hypothyroidism -Stable -Continue with Synthroid 4. Chronic anemia -Transfuse 1 unit on 11/17/2020 -Monitor CBC DVT: Coumadin Inpatient E&M: 61145 Subs Hosp L2
--- NOTE | 2020-11-18 10:16 | PCM.PN.PUL ---
Patient Problems: Active and Suspected Problems (Last Reviewed 11/14/20 @ 14:[address] Elo Parham, DO) Acute hypoxemic respiratory failure (Acute) CHF (congestive heart failure) (Acute) Pneumonia (Acute) Acute bilateral COVID-19 pneumonia (Acute) Subjective: Patient did okay overnight. Patient continues to have highly variable oxygen requirements. Patient did have increased requirements last evening prior to onset of BiPAP, but it is unclear if he was falling asleep while on nasal cannula oxygen. Patient states he feels subjectively unchanged compared to previous. Patient continues to have lower extremity edema and feels a tightness of his lower extremities. - Physical Exam Vitals/I&O's: Vital Signs Temp Pulse Resp BP Pulse Ox 36.6 C 100 18 142/56 H 92 11/18/20 08:38 11/18/20 08:38 11/18/20 08:38 11/18/20 08:38 11/18/20 08:38 Oxygen Flow Rate (L/min) 10 Oxygen Delivery Method Nasal Cannula Weight: 60.5 kg Body Mass Index (BMI) 24.9 Intake and Output for Last 24 Hours 11/16/20 11/17/20 11/18/20 23:59 23:59 23:59 Intake Total 1890 / 1890 1300 / 1300 300 / 300 Output Total 1675 / 1675 2575 / 2575 400 / 400 Balance 215 / 215 -1275 / -1275 -100 / -100 General: Alert, Oriented x3, Cooperative, - - Mild conversational dyspnea. Frail appearance. HEENT: Atraumatic, PERRLA, EOMI, Normocephalic, - - No scleral icterus or injection noted Oral: Moist Mucosa, No Gingival or Mucosal Lesions/ Ulcerations Neck: Supple, No Nodes, Trachea Midline, JVD, Right Lungs: No rhonchi, No wheeze, Diminished, Rales - Bilateral bases Cardiovascular: Normal S1, Normal S2, Irregular Rate, Murmur, No rub noted, No Gallop Abdomen: Bowel Sounds Present, Soft, Non Tender, Non-Distended Extremities: No clubbing, No cyanosis, Edema Skin: - - No change compared to previous Musculoskeletal: No Tenderness to Palpation of Joints or Extremities Lymphatic: No Cervical, Supraclavicular, or Inguinal Adenopathy Neurological: Cranial nerves II-XII grossly intact, Neuro grossly intact, Motor Exam 5/5 strength throughout Psych/Mental Status: Alert and oriented to time, place, person, mood and affect Microbiology Past 72 Hours 11/14/20 11:05 Blood Culture (Wb) - Left Forearm Blood Culture - Preliminary No growth in 48 hours. 11/14/20 10:25 Blood Culture (Wb) - Anticubital Right Blood Culture - Preliminary No growth in 48 hours. Laboratory Results 11/17/20 10:10: Blood Type AB POSITIVE, Antibody Screen NEGATIVE, Crossmatch See Detail 11/18/20 06:25: PT 31.0 H, INR 3.0 11/18/20 06:25: Sodium 143, Potassium 3.9, Chloride 108 H, Carbon Dioxide 31.0, Anion Gap 4 L, BUN 40 H, Creatinine 1.18, Estim Creat Clear Calc 37.55, Est GFR (MDRD) Af Amer 77, Est GFR (MDRD) Non-Af 63, BUN/Creatinine Ratio 33.9 H, Glucose 85, Calcium 8.0 L Current Medications Acetaminophen (Acetaminophen 325 Mg Tablet) 650 mg PO Q6H PRN PRN PRN Reason: Pain Score 1-10/Temp > 100.7 F Albuterol Sulfate (Albuterol 2.5 Mg/3 Ml Vial.Neb.) 2.5 mg INHALATION Q2H PRN PRN PRN Reason: SOB/Wheezing Albuterol/Ipratropium (Ipratropium/Albuterol Sulfate 3 Ml Ampul.Neb) 3 ml INHALATION Q4H.RT [facility] Last Admin: 11/18/20 06:50 Dose: 3 ml Documented by: Amiodarone HCl (Amiodarone 200 Mg Tablet) 200 mg PO DAILY [facility] Last Admin: 11/17/20 10:07 Dose: 200 mg Documented by: Atorvastatin Calcium (Atorvastatin Calcium 20 Mg Tablet) 20 mg PO QHS [facility] Last Admin: 11/17/20 20:17 Dose: 20 mg Documented by: Calamine/Phenol (Menthol/Lanolin/Calamine/Znox 113 Gm Tube) 1 applic TOPICAL 0600,2200 [facility]; Protocol Last Admin: 11/18/20 06:20 Dose: 1 applicatio Documented by: Calcium Carbonate (Calcium Carbonate 500 Mg Tablet) 500 mg PO Q6H PRN PRN PRN Reason: HEARTBURN Carvedilol (Carvedilol 25 Mg Tablet) 25 mg PO BID [facility] Last Admin: 11/17/20 20:17 Dose: 25 mg Documented by: Clopidogrel Bisulfate (Clopidogrel Bisulfate 75 Mg Tablet) 75 mg PO DAILY [facility] Last Admin: 11/17/20 10:07 Dose: 75 mg Documented by: Folic Acid (Folic Acid 1 Mg Tablet) 1 mg PO DAILY [facility] Last Admin: 11/17/20 10:07 Dose: 1 mg Documented by: Furosemide (Furosemide 40 Mg Tablet) 40 mg PO DAILY [facility] Last Admin: 11/17/20 10:10 Dose: 40 mg Documented by: Furosemide (Furosemide 40 Mg/4 Ml Vial) 40 mg IV X1 ONE Stop: 11/18/20 16:01 Guaifenesin (Guaifenesin 10 Ml Udc (200mg/10ml)) 10 ml PO Q4H PRN PRN PRN Reason: COUGH Sodium Chloride () 250 mls @ 15 mls/hr IV .[id number] PRN PRN Reason: Saline Flush Last Infusion: 11/15/20 05:15 Dose: 0 mls/hr Documented by: Levothyroxine Sodium (Levothyroxine 150 Mcg Tablet) 150 mcg PO DAILY [facility] Last Admin: 11/17/20 10:07 Dose: 150 mcg Documented by: Melatonin (Melatonin 3 Mg Tablet) 3 mg PO QHS PRN PRN PRN Reason: INSOMNIA Nitroglycerin (Nitroglycerin (Inpatient Use) 0.4 Mg Tab.Subl) 0.4 mg SUBLINGUAL Q5M PRN PRN Reason: CARDIAC/CHEST PAIN Ondansetron HCl (Ondansetron 4 Mg/2 Ml Vial) 4 mg IV Q8H PRN PRN PRN Reason: NAUSEA/VOMITING Polysaccharide Iron Complex (Iron Polysaccharide Complex 150 Mg Capsule) 150 mg PO DAILY [facility] Last Admin: 11/17/20 10:07 Dose: 150 mg Documented by: Ramipril (Ramipril 5 Mg Capsule) 5 mg PO DAILY [facility] Last Admin: 11/17/20 10:07 Dose: 5 mg Documented by: Senna/Docusate Sodium (Senna/Docusate Sodium 1 Tablet) 2 tablet PO BID PRN PRN PRN Reason: Constipation Sodium Chloride (0.9% Saline Lock 10 Ml Syringe) 10 - 40 ml IV UD PRN PRN Reason: SALINE FLUSH Last Admin: 11/17/20 20:18 Dose: 10 ml Documented by: Warfarin Sodium (Jantoven 2 Mg Tablet) 2 mg PO DAILY@1700 [facility] Last Admin: 11/17/20 15:58 Dose: 2 mg Documented by: Medical Necessity - Tobacco Use Smoking Status: Former smoker Assessment/Plan All Active Problems (Last Reviewed 11/14/20 @ 14:[address] Elo Parham, DO) Acute hypoxemic respiratory failure (Acute) CHF (congestive heart failure) (Acute) Pneumonia (Acute) Acute hypoxic respiratory failure (Acute) Acute bilateral COVID-19 pneumonia (Acute) Abnormal cardiac enzyme level (Resolved) Anticoagulated on Coumadin (Resolved) RECOMMENDATIONS: 1. Wean oxygenation and increase activity as tolerated 2. Continue diuretic therapy as tolerated by hemodynamics and renal function. 3. Continue BiPAP with sleep 4. Potassium supplementation as indicated. Agree with additional dose of Lasix this evening 5. Encourage incentive spirometer use and mobilize patient as tolerated. IMPRESSIONS: 1. Acute hypoxic respiratory failure The patient was recently admitted to the hospital with respiratory failure secondary to COVID-19 pneumonia and was only home for approximately 2 days prior to returning to the hospital with worsening shortness of breath and hypoxemia. The patient's CTA showed no evidence for PE and looked similar in appearance when compared to prior imaging studies from his last hospitalization, with the exception of some increased groundglass and pleural effusions. Patient still requiring significant nasal cannula oxygen to maintain saturations, but clinical suspicion for decompensated heart failure leading to repeat exacerbation. Patient does have significant underlying lung disease. Continue with diuretic therapy as patient tolerates. Patient may need an LTAC evaluation. Low clinical suspicion for PE given chronic anticoagulation. May need to hold ramipril if renal dysfunction is noted with diuretics. 2. Chronic diastolic CHF/history of ascending aortic dissection status post repair/paroxysmal A. fib/hypertensive urgency The patient presented to the hospital with what appeared to be a CHF exacerbation. He has responded appropriately to noninvasive positive pressure ventilatory support and diuretic therapy. The patient is currently a patient of Dr. Jones, but is not scheduled to follow-up with him until December. I would recommend that cardiology be consulted while the patient is admitted to the hospital. 3. CKD stage III/chronic anemia/hypothyroidism/advanced age Complicates care, management, recovery and prognosis. Continue home medications as indicated. Inpatient E&M: 56180 [facility] L3
[2020-11-18] MEDS: Levothyroxine 150 MCG Tablet PO (10:25)
[2020-11-18] MEDS: Amiodarone 200 MG Tablet PO (10:25)
[2020-11-18] MEDS: Clopidogrel Bisulfate 75 MG Tablet PO (10:25)
[2020-11-18] MEDS: Ramipril 5 MG Capsule PO (10:25)
[2020-11-18] MEDS: Iron Polysaccharide Complex 150 MG CAPSULE PO (10:25)
[2020-11-18] MEDS: Folic Acid 1 MG Tablet PO (10:25)
[2020-11-18] MEDS: Furosemide 40 MG/4 ML Vial IV (10:25)
[2020-11-18] MEDS: Carvedilol 25 MG Tablet PO ×2 (10:25→21:17)
[2020-11-18] MEDS: 0.9% Saline Lock 10 ML Syringe IV (10:26)
--- NOTE | 2020-11-18 15:14 | CASEMGMT ---
Social Work SW noted that pt was not able to participate in ambulation today with therapy due to O2 demand and fatigue. SW placed call to pt room and discussed discharge plans. Dr. Hernandez's notes indicate LTAC may need to be considered. SW spoke with pt regarding SNF and LTAC. Pt stating he is short of breath and asking SW to contact his son Tab about discharge planning. Pt stating Tab works 2nd shift and would not be available for conversation at this time but would be available in the morning. LEOPOLDO Chaidez updated. ELVIN/LEOPOLDO will followup with Tab tomorrow. CHANNING Burns
[2020-11-18] MEDS: Jantoven 2 MG Tablet PO (16:53)
[2020-11-18] MEDS: Atorvastatin Calcium 20 MG Tablet PO (21:17)
[2020-11-19] VITALS (24 sets, daily range): BP systolic 127–152; BP diastolic 52–79; PULSE 68–89; RESP 12–27; TEMP 36.5–36.8; O2SAT 91–97
[2020-11-19] MEDS: Ipratropium/Albuterol Sulfate 3 ML AMPUL.NEB INHALATION ×6 (03:14→23:50)
[2020-11-19] MEDS: Menthol/Lanolin/Calamine/Znox 113 GM Tube 1 APPLIC TOPICAL ×2 (05:22→21:38)
[2020-11-19 05:38] LABS: Absolute Lymphocyte Count 0.71 X10^3/uL (0.83-4.51); Absolute Neutrophil Count 8.7 X10^3/uL (2.0-7.7); Basophil# 0.01 X10^3/uL; Basophil% 0.1 % (0-1); Eosinophil# 0.15 X10^3/uL; Eosinophils% 1.5 % (0-5); Hematocrit 26.1 % (40-54); Lymphocyte # 0.71 X10^3/ul (4.0); Mean Corp Hgb Conc 30.7 g/dL (32-36); Mean Corpuscular Hgb 28.2 pg (27.0-32.0); Mean Corpuscular Volume 91.9 fL (80-94); Mean Platelet Vol. 10.1 fl (6.2-12.0); Monocyte% 4.9 % (0-10); NRBC Flagged by Analyzer 0 % (0-5); Neutrophil # 8.65 X10^3/uL (2.7-7.7); Neutrophil % 85.2 % (47-70); Platelet Count 178 K/mm3 (150-450); RBC Distribution Width CV 16.8 % (11.6-14.6); RBC Distribution Width SD 56.4 fl (35.1-43.9); Red Blood Count 2.84 M/mm3 (4.6-6.2); White Blood Count 10.2 K/mm3 (4.4-11.0)
[2020-11-19 05:47] LABS: International Normalized Ratio 3.4; Prothrombin Time (Protime)PT. 34.4 SECONDS (11.7-14.9)
[2020-11-19 06:04] LABS: Anion Gap 6 (5-15); BUN 41 mg/dL (7-18); BUN/Creat Ratio 34.7 RATIO (10-20); Chloride 106 mmol/L (98-107); Creatinine, Serum 1.18 mg/dL (0.70-1.30); EST Glomerular Filtration Rate 63 mL/min (>60); Est Glom Filt Rate - Afr Amer 77 mL/min (>60); Estimated Creatinine Clearance 37.55 ml/min; Glucose 73 mg/dL (74-106); Potassium 3.8 mmol/L (3.5-5.1); Sodium Level 142 mmol/L (136-145)
--- NOTE | 2020-11-19 07:16 | PCM.PN.HOSP ---
Patient Problems: Active and Suspected Problems (Last Reviewed 11/14/20 @ 14:[address] Elo Parham, DO) Acute hypoxemic respiratory failure (Acute) CHF (congestive heart failure) (Acute) Pneumonia (Acute) Acute bilateral COVID-19 pneumonia (Acute) Subjective: Doing well, no issues overnight, has remained at 8 to 10 L during the day on nasal cannula and then on BiPAP at night. He has been diuresed 4 liters Vitals/I&O's: Vital Signs Temp Pulse Resp BP Pulse Ox 97.7 F L 77 15 140/61 H 95 11/19/20 01:13 11/19/20 05:47 11/19/20 05:47 11/19/20 01:13 11/19/20 05:47 Oxygen Flow Rate (L/min) 60 Oxygen Delivery Method Bi-pap Weight: 133 lb 6.075 oz Body Mass Index (BMI) 24.9 Intake and Output for Last 24 Hours 11/17/20 11/18/20 11/19/20 23:59 23:59 23:59 Intake Total 1300 / 1300 300 / 350 50 / 50 Output Total 2575 / 2575 1300 / 1300 Balance -1275 / -1275 -1000 / -950 50 / 50 General: Alert, Oriented x3, Cooperative, No apparent distress HEENT: Atraumatic, PERRLA, EOMI, Normocephalic Oral: Moist Mucosa Neck: Supple, No JVD Lungs: Diminished, Rales Cardiovascular: Regular rate, Regular Rhythm, Normal S1, Normal S2, No murmurs Abdomen: Soft, Non Tender, Non-Distended, No Hepato-splenomegaly Extremities: Capillary Refill Less than 3 Seconds, Edema - 1+ pitting edema bilaterally Skin: No rashes, No breakdown Neurological: Neuro grossly intact, Sensory exam intact to light touch and pain Psych/Mental Status: Normal Affect, Appropriate Microbiology Past 72 Hours 11/14/20 11:05 Blood Culture (Wb) - Left Forearm Blood Culture - Preliminary No growth in 48 hours. 11/14/20 10:25 Blood Culture (Wb) - Anticubital Right Blood Culture - Preliminary No growth in 48 hours. Laboratory Results 11/18/20 06:25: Sodium 143, Potassium 3.9, Chloride 108 H, Carbon Dioxide 31.0, Anion Gap 4 L, BUN 40 H, Creatinine 1.18, Estim Creat Clear Calc 37.55, Est GFR (MDRD) Af Amer 77, Est GFR (MDRD) Non-Af 63, BUN/Creatinine Ratio 33.9 H, Glucose 85, Calcium 8.0 L 11/19/20 04:50: PT 34.4 H, INR 3.4 11/19/20 04:50: Sodium 142, Potassium 3.8, Chloride 106, Carbon Dioxide 30.0, Anion Gap 6, BUN 41 H, Creatinine 1.18, Estim Creat Clear Calc 37.55, Est GFR (MDRD) Af Amer 77, Est GFR (MDRD) Non-Af 63, BUN/Creatinine Ratio 34.7 H, Glucose 73 L, Calcium 8.0 L 11/19/20 04:50: WBC 10.2, RBC 2.84 L, Hgb 8.0 L, Hct 26.1 L, MCV 91.9, MCH 28.2, MCHC 30.7 L, RDW Std Deviation 56.4 H, RDW Coeff of Ej 16.8 H, Plt Count 178, MPV 10.1, Immature Gran % (Auto) 1.300 H, Neut % (Auto) 85.2 H, Lymph % (Auto) 7.0 L, [place] % (Auto) 4.9, Eos % (Auto) 1.5, Baso % (Auto) 0.1, Absolute Neuts (auto) 8.7 H, Absolute Lymphs (auto) 0.71 L, Nucleated RBC % 0 Current Medications Acetaminophen (Acetaminophen 325 Mg Tablet) 650 mg PO Q6H PRN PRN PRN Reason: Pain Score 1-10/Temp > 100.7 F Albuterol Sulfate (Albuterol 2.5 Mg/3 Ml Vial.Neb.) 2.5 mg INHALATION Q2H PRN PRN PRN Reason: SOB/Wheezing Albuterol/Ipratropium (Ipratropium/Albuterol Sulfate 3 Ml Ampul.Neb) 3 ml INHALATION Q4H.RT [facility] Last Admin: 11/19/20 03:14 Dose: 3 ml Documented by: Amiodarone HCl (Amiodarone 200 Mg Tablet) 200 mg PO DAILY [facility] Last Admin: 11/18/20 10:25 Dose: 200 mg Documented by: Atorvastatin Calcium (Atorvastatin Calcium 20 Mg Tablet) 20 mg PO QHS [facility] Last Admin: 11/18/20 21:17 Dose: 20 mg Documented by: Calamine/Phenol (Menthol/Lanolin/Calamine/Znox 113 Gm Tube) 1 applic TOPICAL 0600,2200 [facility]; Protocol Last Admin: 11/19/20 05:22 Dose: 1 applicatio Documented by: Calcium Carbonate (Calcium Carbonate 500 Mg Tablet) 500 mg PO Q6H PRN PRN PRN Reason: HEARTBURN Carvedilol (Carvedilol 25 Mg Tablet) 25 mg PO BID [facility] Last Admin: 11/18/20 21:17 Dose: 25 mg Documented by: Clopidogrel Bisulfate (Clopidogrel Bisulfate 75 Mg Tablet) 75 mg PO DAILY [facility] Last Admin: 11/18/20 10:25 Dose: 75 mg Documented by: Folic Acid (Folic Acid 1 Mg Tablet) 1 mg PO DAILY [facility] Last Admin: 11/18/20 10:25 Dose: 1 mg Documented by: Furosemide (Furosemide 40 Mg Tablet) 40 mg PO DAILY [facility] Last Admin: 11/18/20 10:31 Dose: Not Given Documented by: Guaifenesin (Guaifenesin 10 Ml Udc (200mg/10ml)) 10 ml PO Q4H PRN PRN PRN Reason: COUGH Sodium Chloride () 250 mls @ 15 mls/hr IV .[id number] PRN PRN Reason: Saline Flush Last Infusion: 11/15/20 05:15 Dose: 0 mls/hr Documented by: Levothyroxine Sodium (Levothyroxine 150 Mcg Tablet) 150 mcg PO DAILY [facility] Last Admin: 11/18/20 10:25 Dose: 150 mcg Documented by: Melatonin (Melatonin 3 Mg Tablet) 3 mg PO QHS PRN PRN PRN Reason: INSOMNIA Nitroglycerin (Nitroglycerin (Inpatient Use) 0.4 Mg Tab.Subl) 0.4 mg SUBLINGUAL Q5M PRN PRN Reason: CARDIAC/CHEST PAIN Ondansetron HCl (Ondansetron 4 Mg/2 Ml Vial) 4 mg IV Q8H PRN PRN PRN Reason: NAUSEA/VOMITING Polysaccharide Iron Complex (Iron Polysaccharide Complex 150 Mg Capsule) 150 mg PO DAILY [facility] Last Admin: 11/18/20 10:25 Dose: 150 mg Documented by: Ramipril (Ramipril 5 Mg Capsule) 5 mg PO DAILY [facility] Last Admin: 02/03/21 10:25 Dose: 5 mg Documented by: Senna/Docusate Sodium (Senna/Docusate Sodium 1 Tablet) 2 tablet PO BID PRN PRN PRN Reason: Constipation Sodium Chloride (0.9% Saline Lock 10 Ml Syringe) 10 - 40 ml IV UD PRN PRN Reason: SALINE FLUSH Last Admin: 11/18/20 10:26 Dose: 20 ml Documented by: Warfarin Sodium (Jantoven 2 Mg Tablet) 2 mg PO DAILY@1700 [facility] Last Admin: 11/18/20 16:53 Dose: 2 mg Documented by: STROKE Vital Signs/Narrative: Vital Signs Pulse Resp Pulse Ox 11/19/20 05:47 77 15 95 11/19/20 04:00 82 Medical Necessity - Tobacco Use Smoking Status: Former smoker Assessment/Plan All Active Problems (Last Reviewed 11/14/20 @ 14:[address] Elo Parham, DO) Acute hypoxemic respiratory failure (Acute) CHF (congestive heart failure) (Acute) Pneumonia (Acute) Acute hypoxic respiratory failure (Acute) Acute bilateral COVID-19 pneumonia (Acute) Abnormal cardiac enzyme level (Resolved) Anticoagulated on Coumadin (Resolved) 1. Acute hypoxic respiratory failure secondary to acute on chronic diastolic CHF/bilateral COVID-19 pneumonia with possible chronic interstitial lung disease -He was recently admitted and discharged on November 12, 2020 with Covid. He presented a few days after discharge with hypoxia on his 4 L nasal cannula. -His leukocytosis was likely reactive to the Decadron which he had completed, and he remains afebrile -We will continue with Lasix, will plan for an echo today -We will give a one-time dose of Lasix this evening IV -Continue with breathing treatments, appreciate pulmonology assistance -Evaluated by PT/OT for possible placement given his prolonged hospitalization 2. Acute on chronic diastolic CHF/paroxysmal A. fib/CAD status post stents/HTN/HLD -Blood pressure stable -We will decrease his Lasix dosing from 80 mg to 40 mg, creatinine is back to baseline -Continue with his home blood pressure medications -Continue with Coumadin, Plavix, Lipitor 3. Hypothyroidism -Stable -Continue with Synthroid 4. Chronic anemia -Transfuse 1 unit on 11/17/2020 -Monitor CBC, currently 8 DVT: Coumadin Inpatient E&M: [id number] [facility] Hosp L2
--- NOTE | 2020-11-19 07:19 | ECHOD_ITS ---
Reason For Study: SOB Procedure This was a 2D Doppler, Color Flow transthoracic echocardiogram. The exam was of adequate technical quality. Exam performed portable in patient room. Left Ventricle Normal LV size. Apical false tendon noted. Mild concentric left ventricular hypertrophy. Left ventricular systolic function is normal. The estimated ejection fraction is 55 %. Post operative septal motion. Unable to assess diastolic dysfunction. No regional wall motion abnormalities noted. Right Ventricle Normal RV size. Normal systolic function. Atria The left atrium is moderately enlarged. The right atrium is moderately enlarged. No doppler evidence for ASD. Mitral Valve There is moderate mitral annular calcification. Extension the mitral annular calcification onto the base of the posterior mitral valve leaflet. Mild diffuse mitral valve thickening. Moderate (2+) mitral valve insufficiency. Tricuspid Valve Mild focal calcification of the tricuspid valve. Mild tricuspid valve insufficiency. Right ventricular systolic pressure estimated to be 45 mmHg. Aortic Valve Trisinus/trileaflet aortic valve. Mild diffuse aortic valve thickening. Mild diffuse aortic valve calcification. Aortic sclerosis/mild aortic valve stenosis. Moderate (2+) aortic valve insufficiency. Pulmonic Valve The pulmonic valve is not well visualized. Mild (1+) pulmonic valve insufficiency. Great Vessels Borderline enlarged aortic root. Pericardium/Pleural No pericardial effusion. Echo lucency compatible with a pleural effusion. MMode/2D Measurements & Calculations LVIDd: 5.0 cm IVSd: 1.5 cm LVOT diam: 2.2 cm LVIDs: 3.6 cm LVPWd: 1.4 cm LVOT area: 3.9 cm2 RVDd: 3.9 cm FS: 28.8 % Ao root diam: 3.8 cm LAV(MOD-bp): 87.3 ml LVAd ap4: 43.1 cm2 LAV(MOD-bp) Indexed: 55.0 ml/m2 EDV(MOD-sp4): 157.6 ml LAV(MOD-sp2): 86.6 ml EDV(sp4-el): 168.2 ml LAV(MOD-sp4): 86.2 ml LVAs ap4: 28.0 cm2 ESV(MOD-sp4): 77.6 ml ESV(sp4-el): 81.2 ml EF(MOD-sp4): 50.8 % EF(sp4-el): 51.7 % SV(MOD-sp4): 80.0 ml SV(sp4-el): 87.0 ml LA A4 area: 27.4 cm2 LA dimension(2D): 4.2 cm RA A4 area: 24.2 cm2 Time Measurements MV dec time: 0.13 sec Doppler Measurements & Calculations MV E max chino: 102.5 cm/sec Ao V2 max: 167.1 cm/sec AI max chino: 427.5 cm/sec Ao max P.2 mmHg AI max P.1 mmHg Ao V2 mean: 118.5 cm/sec AI dec slope: 333.1 cm/sec2 Ao mean P.1 mmHg AI P1/2t: 375.8 msec Ao V2 VTI: 35.6 cm JESSEE(I,D): 1.9 cm2 JESSEE(V,D): 2.1 cm2 LV V1 max: 88.4 cm/sec SV(LVOT): 66.1 ml PA V2 max: 84.3 cm/sec LV V1 max P.1 mmHg LV V1 mean P.5 mmHg LV V1 mean: 57.0 cm/sec LV V1 VTI: 16.9 cm PI end-d chino: 130.7 cm/sec TR max chino: 302.6 cm/sec TR max P.6 mmHg Interpretation Summary Left ventricular systolic function is normal. The estimated ejection fraction is 55 %. Mild concentric left ventricular hypertrophy. Post operative septal motion. Apical false tendon noted. The left atrium is moderately enlarged. The right atrium is moderately enlarged. There is moderate mitral annular calcification. Extension the mitral annular calcification onto the base of the posterior mitral valve leaflet. Mild diffuse mitral valve thickening. Moderate (2+) mitral valve insufficiency. Mild focal calcification of the tricuspid valve. Mild tricuspid valve insufficiency. Aortic sclerosis/mild aortic valve stenosis. Moderate (2+) aortic valve insufficiency. Mild (1+) pulmonic valve insufficiency. Borderline enlarged aortic root. Echo lucency compatible with a pleural effusion. Right ventricular systolic pressure estimated to be 45 mmHg. Unable to assess diastolic dysfunction. Ordering Physician: Rafael Preston Referring Physician: LUX FERREIRA Performed By: Dipika Marrufo, IVÁNCS, RVT
[2020-11-19] MEDS: Folic Acid 1 MG Tablet PO (10:34)
[2020-11-19] MEDS: Furosemide 40 MG Tablet PO (10:34)
[2020-11-19] MEDS: Iron Polysaccharide Complex 150 MG CAPSULE PO (10:35)
[2020-11-19] MEDS: Ramipril 5 MG Capsule PO (10:35)
[2020-11-19] MEDS: Clopidogrel Bisulfate 75 MG Tablet PO (10:35)
[2020-11-19] MEDS: Levothyroxine 150 MCG Tablet PO (10:35)
[2020-11-19] MEDS: Amiodarone 200 MG Tablet PO (10:35)
[2020-11-19] MEDS: Carvedilol 25 MG Tablet PO ×2 (10:35→21:38)
--- NOTE | 2020-11-19 11:30 | CASEMGMT ---
Social Work Per pt request, phone call placed to pt son Tab. ELVIN introduced self and role of SW and explained that SW spoke with pt regarding discharge plan yesterday and pt requested SW call Tab today with information. ELVIN informed Tab that pt had requested TCU but that TCU is not accepting Covid positive patients at this time. Discussed with Tab pt oxygen requirements and physician recommendation for LTACH and provided information on available LTACHs. Tab is understanding that of pt requirements at time of discharge and is agreeable to LTACH and would prefer [facility]. Tab stating he will call pt and talk to him about need for LTACH and that pt does not feel comfortable taking pt home at this time. Tab also requesting spiritual and emotional support for pt. ELVIN made referral to Chaplain Prakash and EHSAN Bernard. LEOPOLDO Mccann updated on discharge plan. CHANNING Burns
--- NOTE | 2020-11-19 11:55 | CASEMGMT ---
Addendum entered by Siobhan Merrill 11/19/20 14:04: Message from Happy at [facility] and she states that they have no beds available until at least next week and they also have a waiting list for those beds at this time. Pt to be updated at this time. Ana Paula HORNER CM Original Note: Per Beulah OCONNOR, she spoke with pt's son, Tab, per pt request and son would like [facility] at this time. Son states he will call and speak with pt regarding same. Per Beulah OCONNOR, son also states that pt needs emotional/spiritual support and she placed consult to chaplain Dwain, and Ana Maria OCONNOR, regarding same at this time. Referral faxed to [facility] at this time. Ana Paula HORNER CM
--- NOTE | 2020-11-19 13:02 | PCM.PN.PUL ---
Patient Problems: Active and Suspected Problems (Last Reviewed 11/14/20 @ 14:[address] Elo Parham, DO) Acute hypoxemic respiratory failure (Acute) CHF (congestive heart failure) (Acute) Pneumonia (Acute) Acute bilateral COVID-19 pneumonia (Acute) Subjective: Did okay overnight. Patient continues to require 8 to 10 L nasal cannula during the day and BiPAP at night. Patient continues to diurese, but still has lower extremity edema. - Physical Exam Vitals/I&O's: Vital Signs Temp Pulse Resp BP Pulse Ox 36.6 C 74 20 H 137/52 H 96 11/19/20 12:57 11/19/20 12:57 11/19/20 12:57 11/19/20 12:57 11/19/20 12:57 Oxygen Flow Rate (L/min) 12 Oxygen Delivery Method Bi-pap Weight: 60 kg Body Mass Index (BMI) 24.9 Intake and Output for Last 24 Hours 11/17/20 11/18/20 11/19/20 23:59 23:59 23:59 Intake Total 1300 / 1300 300 / 350 450 / 450 Output Total 2575 / 2575 1300 / 1300 350 / 350 Balance -1275 / -1275 -1000 / -950 100 / 100 General: Alert, Oriented x3, Cooperative, No apparent distress, - - Mild conversational dyspnea HEENT: Atraumatic, PERRLA, EOMI, Normocephalic Oral: No Gingival or Mucosal Lesions/ Ulcerations, Dry Mucosa Neck: Supple, No JVD, No Nodes, Trachea Midline Lungs: No rhonchi, No wheeze, No rales, Diminished Cardiovascular: Regular rate, Regular Rhythm, Normal S1, Normal S2, Murmur, No rub noted, No Gallop Abdomen: Bowel Sounds Present, Soft, Non Tender, Non-Distended Extremities: No clubbing, No cyanosis, Edema Skin: - - No change compared to previous Musculoskeletal: No Tenderness to Palpation of Joints or Extremities Lymphatic: No Cervical, Supraclavicular, or Inguinal Adenopathy Neurological: Cranial nerves II-XII grossly intact, Neuro grossly intact, Motor Exam 5/5 strength throughout Psych/Mental Status: Alert and oriented to time, place, person, mood and affect Microbiology Past 72 Hours 11/14/20 11:05 Blood Culture (Wb) - Left Forearm Blood Culture - Final No growth in 5 days. 11/14/20 10:25 Blood Culture (Wb) - Anticubital Right Blood Culture - Final No growth in 5 days. Laboratory Results 11/19/20 04:50: PT 34.4 H, INR 3.4 11/19/20 04:50: Sodium 142, Potassium 3.8, Chloride 106, Carbon Dioxide 30.0, Anion Gap 6, BUN 41 H, Creatinine 1.18, Estim Creat Clear Calc 37.55, Est GFR (MDRD) Af Amer 77, Est GFR (MDRD) Non-Af 63, BUN/Creatinine Ratio 34.7 H, Glucose 73 L, Calcium 8.0 L 11/19/20 04:50: WBC 10.2, RBC 2.84 L, Hgb 8.0 L, Hct 26.1 L, MCV 91.9, MCH 28.2, MCHC 30.7 L, RDW Std Deviation 56.4 H, RDW Coeff of Ej 16.8 H, Plt Count 178, MPV 10.1, Immature Gran % (Auto) 1.300 H, Neut % (Auto) 85.2 H, Lymph % (Auto) 7.0 L, [place] % (Auto) 4.9, Eos % (Auto) 1.5, Baso % (Auto) 0.1, Absolute Neuts (auto) 8.7 H, Absolute Lymphs (auto) 0.71 L, Nucleated RBC % 0 Current Medications Acetaminophen (Acetaminophen 325 Mg Tablet) 650 mg PO Q6H PRN PRN PRN Reason: Pain Score 1-10/Temp > 100.7 F Albuterol Sulfate (Albuterol 2.5 Mg/3 Ml Vial.Neb.) 2.5 mg INHALATION Q2H PRN PRN PRN Reason: SOB/Wheezing Albuterol/Ipratropium (Ipratropium/Albuterol Sulfate 3 Ml Ampul.Neb) 3 ml INHALATION Q4H.RT [facility] Last Admin: 11/19/20 10:40 Dose: 3 ml Documented by: Amiodarone HCl (Amiodarone 200 Mg Tablet) 200 mg PO DAILY [facility] Last Admin: 11/19/20 10:35 Dose: 200 mg Documented by: Atorvastatin Calcium (Atorvastatin Calcium 20 Mg Tablet) 20 mg PO QHS [facility] Last Admin: 11/18/20 21:17 Dose: 20 mg Documented by: Calamine/Phenol (Menthol/Lanolin/Calamine/Znox 113 Gm Tube) 1 applic TOPICAL 0600,2200 [facility]; Protocol Last Admin: 11/19/20 05:22 Dose: 1 applicatio Documented by: Calcium Carbonate (Calcium Carbonate 500 Mg Tablet) 500 mg PO Q6H PRN PRN PRN Reason: HEARTBURN Carvedilol (Carvedilol 25 Mg Tablet) 25 mg PO BID [facility] Last Admin: 11/19/20 10:35 Dose: 25 mg Documented by: Clopidogrel Bisulfate (Clopidogrel Bisulfate 75 Mg Tablet) 75 mg PO DAILY [facility] Last Admin: 11/19/20 10:35 Dose: 75 mg Documented by: Folic Acid (Folic Acid 1 Mg Tablet) 1 mg PO DAILY [facility] Last Admin: 11/19/20 10:34 Dose: 1 mg Documented by: Furosemide (Furosemide 40 Mg Tablet) 40 mg PO DAILY [facility] Last Admin: 11/19/20 10:34 Dose: 40 mg Documented by: Furosemide (Furosemide 40 Mg/4 Ml Vial) 40 mg IV X1 ONE Stop: 11/19/20 16:01 Guaifenesin (Guaifenesin 10 Ml Udc (200mg/10ml)) 10 ml PO Q4H PRN PRN PRN Reason: COUGH Sodium Chloride () 250 mls @ 15 mls/hr IV .[id number] PRN PRN Reason: Saline Flush Last Infusion: 11/15/20 05:15 Dose: 0 mls/hr Documented by: Levothyroxine Sodium (Levothyroxine 150 Mcg Tablet) 150 mcg PO DAILY [facility] Last Admin: 11/19/20 10:35 Dose: 150 mcg Documented by: Melatonin (Melatonin 3 Mg Tablet) 3 mg PO QHS PRN PRN PRN Reason: INSOMNIA Nitroglycerin (Nitroglycerin (Inpatient Use) 0.4 Mg Tab.Subl) 0.4 mg SUBLINGUAL Q5M PRN PRN Reason: CARDIAC/CHEST PAIN Ondansetron HCl (Ondansetron 4 Mg/2 Ml Vial) 4 mg IV Q8H PRN PRN PRN Reason: NAUSEA/VOMITING Polysaccharide Iron Complex (Iron Polysaccharide Complex 150 Mg Capsule) 150 mg PO DAILY [facility] Last Admin: 11/19/20 10:35 Dose: 150 mg Documented by: Ramipril (Ramipril 5 Mg Capsule) 5 mg PO DAILY [facility] Last Admin: 11/19/20 10:35 Dose: 5 mg Documented by: Senna/Docusate Sodium (Senna/Docusate Sodium 1 Tablet) 2 tablet PO BID PRN PRN PRN Reason: Constipation Sodium Chloride (0.9% Saline Lock 10 Ml Syringe) 10 - 40 ml IV UD PRN PRN Reason: SALINE FLUSH Last Admin: 11/18/20 10:26 Dose: 20 ml Documented by: Medical Necessity - Tobacco Use Smoking Status: Former smoker Assessment/Plan All Active Problems (Last Reviewed 11/14/20 @ 14:[address] Elo Parham, DO) Acute hypoxemic respiratory failure (Acute) CHF (congestive heart failure) (Acute) Pneumonia (Acute) Acute hypoxic respiratory failure (Acute) Acute bilateral COVID-19 pneumonia (Acute) Abnormal cardiac enzyme level (Resolved) Anticoagulated on Coumadin (Resolved) RECOMMENDATIONS: 1. Wean oxygenation and increase activity as tolerated 2. Continue diuretic therapy as tolerated by hemodynamics and renal function. 3. Continue BiPAP with sleep 4. Potassium supplementation as indicated. Agree with additional dose of Lasix this evening 5. Encourage incentive spirometer use and mobilize patient as tolerated. 6. Obtain echocardiogram IMPRESSIONS: 1. Acute hypoxic respiratory failure The patient was recently admitted to the hospital with respiratory failure secondary to COVID-19 pneumonia and was only home for approximately 2 days prior to returning to the hospital with worsening shortness of breath and hypoxemia. The patient's CTA showed no evidence for PE and looked similar in appearance when compared to prior imaging studies from his last hospitalization, with the exception of some increased groundglass and pleural effusions. Patient still requiring significant nasal cannula oxygen to maintain saturations, but clinical suspicion for decompensated heart failure leading to repeat exacerbation. Patient does have significant underlying lung disease. Patient does continue to receive diuretic therapy, but oxygenation remains marginal. Reasonable to obtain an echocardiogram for looking for a secondary process. Patient has had a positive diagnosis for over 20 days. Likely okay to discontinue advanced respiratory precautions from my perspective. 2. Chronic diastolic CHF/history of ascending aortic dissection status post repair/paroxysmal A. fib/hypertensive urgency The patient presented to the hospital with what appeared to be a CHF exacerbation. He has responded appropriately to noninvasive positive pressure ventilatory support and diuretic therapy. The patient is currently a patient of Dr. Jones, but is not scheduled to follow-up with him until December. I would recommend that cardiology be consulted while the patient is admitted to the hospital. 3. CKD stage III/chronic anemia/hypothyroidism/advanced age Complicates care, management, recovery and prognosis. Continue home medications as indicated. Inpatient E&M: [id number] Subs Hosp L3
--- NOTE | 2020-11-19 15:04 | CASEMGMT ---
Social Work Social Work to continue to follow for support. This social work msw attempted to see patient. Patient currently with other medical staff. Will continue to follow. Luca ALEGRE, CHIKI
--- NOTE | 2020-11-19 16:27 | CHAPLAIN ---
Type of Pastoral Visit _x__ Initial Visit ___ Follow-up Visit ___ On-call Visit ___ General Patient Visit ___ Spiritual Assessment ___ Family Conference ___ Bereavement ___ Rapid Response ___ Code Blue ___ Other (describe below) Pastoral Care Referral From _x__ Patient _x__ Family ___ Nurse ___ Physician ___ Fudger ___ Cytology Technologist ___ Other (describe below) Sacrament/Intervention _x__ Active listening ___ Anointing ___ Holiness ___ Bereavement ___ Communion ___ Trupti exploration ___ ___ Life review _x__ Prayer ___ Reconciliation ___ Sacrament of Sick _x__ Supportive presence ___ Wedding ___ Other (describe below) Pastoral Comments patient has been seen by this news camera person on previous admissions; pt and his son were in room at time of this visit; son requests support for the patient and also that commercial appraiser from [employer] to be contacted; sat at bedside with pt and explored any pt concerns at this time; offer of support ongoing for pt; after medical staff gives approval this news camera person made calls to [employer] and [facility] for commercial appraiser visit for Anointing of the Sick; priests are not available today; return visit to patient and explained situation; pt states that he just wants spiritual support so I don't get down; pt states that he is not [employer] and that request for commercial appraiser comes from his who is [employer]; pt states he just needs support; prayer and presence given for patient
[2020-11-19] MEDS: 0.9% Saline Lock 10 ML Syringe IV ×2 (16:44→21:38)
[2020-11-19] MEDS: Furosemide 40 MG/4 ML Vial IV (16:44)
[2020-11-19] MEDS: Atorvastatin Calcium 20 MG Tablet PO (21:38)
[2020-11-20] VITALS (22 sets, daily range): BP systolic 112–147; BP diastolic 52–69; PULSE 76–91; RESP 12–29; TEMP 36.4–36.9; O2SAT 88–96
--- NOTE | 2020-11-20 01:53 | NURSING ---
BIPAP settings 60% 12/8 at beginning of shift. Increased to 80% / per respiratory therapy d/t pt not maintaining O2 sats well. notified. EVENS Perdomo.
--- NOTE | 2020-11-20 02:24 | PCM.PN.BLA ---
Progress Note Notify the patient his respiratory distress. EPAP on BiPAP escalated. Patient was examined at bedside. Patient with tachycardia and tachypnea and on BiPAP. Lungs are with crackles. Lasix 40 mg IV push x1 ordered. STROKE Vital Signs/Narrative: Vital Signs Temp Pulse Resp BP Pulse Ox 11/20/20 00:28 87 24 H 95 11/20/20 00:20 98.3 F 77 27 H 130/54 H 95 11/19/20 23:50 88 26 H 92 11/19/20 23:35 89 26 H 11/19/20 22:48 84 20 H 96
[2020-11-20] MEDS: Furosemide 40 MG/4 ML Vial IV (03:23)
[2020-11-20] MEDS: 0.9% Saline Lock 10 ML Syringe IV (03:23)
[2020-11-20] MEDS: Menthol/Lanolin/Calamine/Znox 113 GM Tube 1 APPLIC TOPICAL ×2 (05:19→21:34)
--- NOTE | 2020-11-20 05:40 | RAD_ITS ---
STUDY: X-RAY CHEST REASON FOR EXAM: Male, 80 years old. Hypoxia TECHNIQUE: Single AP portable view of the chest. COMPARISON: Comparison is made with prior examination dated 11/15/2020. FINDINGS: EKG electrodes are seen. Surgical clips are seen in the right axillary region. Since prior study, there has been progressive infiltration in a preferential lateral distribution worse in the left hemithorax. I suspect bibasilar scarring superimposed. There is no demonstrated pleural abnormality. Sternal cerclage wires and vascular clips are present from a prior sternotomy and coronary artery bypass graft procedure (CABG). Normal mediastinum and jamal. Normal visualized pulmonary arteries. There is atherosclerotic calcification of the aortic arch with tortuosity. Normal visualized thoracic spine. There is degenerative osteoarthritis of the bilateral shoulders. There is no demonstrated abnormality of the visualized soft tissue structures of the upper abdomen. RAD/Chest PA and Lateral IMPRESSION: Progressive infiltration in both lungs worse in the peripheral aspect of the left hemithorax. Electronically Signed: Milan Cao MD at 8:03 EST , Service support ,
[2020-11-20 06:16] LABS: Prothrombin Time (Protime)PT. 36.4 SECONDS (11.7-14.9)
[2020-11-20 06:18] LABS: International Normalized Ratio 3.7
[2020-11-20] MEDS: Ipratropium/Albuterol Sulfate 3 ML AMPUL.NEB INHALATION ×5 (07:00→22:55)
[2020-11-20 07:55] LABS: Anion Gap 7 (5-15); BUN 41 mg/dL (7-18); BUN/Creat Ratio 35.7 RATIO (10-20); Calcium,Total 7.9 mg/dL (8.5-10.1); Chloride 108 mmol/L (98-107); Creatinine, Serum 1.15 mg/dL (0.70-1.30); EST Glomerular Filtration Rate 65 mL/min (>60); Est Glom Filt Rate - Afr Amer 79 mL/min (>60); Estimated Creatinine Clearance 38.53 ml/min; Glucose 112 mg/dL (74-106); Magnesium 2.5 mg/dL (1.6-2.6); Phosphorus 3.2 mg/dL (2.5-4.9); Potassium 3.7 mmol/L (3.5-5.1); Sodium Level 143 mmol/L (136-145)
--- NOTE | 2020-11-20 08:05 | PN_ITS ---
Patient Problems: Active and Suspected Problems (Last Reviewed 11/14/20 @ 14:[address] Elo Parham, DO) Acute hypoxemic respiratory failure (Acute) CHF (congestive heart failure) (Acute) Pneumonia (Acute) Acute bilateral COVID-19 pneumonia (Acute) Subjective: Patient with significant respiratory distress overnight requiring an extra dose of Lasix therapy. No bleeding has been reported. Patient overall feels subjectively unchanged compared to previous. Objective: Echocardiogram showed an EF of 55% with a pulmonary artery systolic pressure of 45 mmHg. Effusion was suggested. Chest x-ray this morning shows thick interstitial infiltrates without obvious pleural effusion. There has been significant worsening compared to previous. - Physical Exam Vitals/I&O's: Vital Signs Temp Pulse Resp BP Pulse Ox 36.6 C 91 28 H 144/61 H 88 11/20/20 06:00 11/20/20 07:00 11/20/20 07:00 11/20/20 06:00 11/20/20 07:10 Oxygen Flow Rate (L/min) 13 Oxygen Delivery Method Nasal Cannula Weight: 60 kg Body Mass Index (BMI) 24.9 Intake and Output for Last 24 Hours 11/18/20 11/19/20 11/20/20 23:59 23:59 23:59 Intake Total 300 / 350 570 / 630 60 / 60 Output Total 1300 / 1300 650 / 1125 800 / 800 Balance -1000 / -950 -80 / -495 -740 / -740 General: Alert, Cooperative, No apparent distress - On BiPAP HEENT: Atraumatic, PERRLA, EOMI, Normocephalic, - - No scleral icterus or injection noted Oral: No Gingival or Mucosal Lesions/ Ulcerations, Dry Mucosa Neck: Supple, No Nodes, Trachea Midline, JVD, Right Lungs: No rhonchi, No wheeze, Diminished, Rales - Bilateral Cardiovascular: Normal S1, Normal S2, No murmurs, Irregular Rate, No rub noted, No Gallop Abdomen: Bowel Sounds Present, Soft, Non Tender, Non-Distended Extremities: No clubbing, No cyanosis, Edema - Improving lower extremities, - - Right hand amputation Skin: - - No change from previous Musculoskeletal: No Tenderness to Palpation of Joints or Extremities Lymphatic: No Cervical, Supraclavicular, or Inguinal Adenopathy Neurological: Cranial nerves II-XII grossly intact, Neuro grossly intact, Motor Exam 5/5 strength throughout Psych/Mental Status: Appropriate, Anxious Microbiology Past 72 Hours 11/14/20 11:05 Blood Culture (Wb) - Left Forearm Blood Culture - Final No growth in 5 days. 11/14/20 10:25 Blood Culture (Wb) - Anticubital Right Blood Culture - Final No growth in 5 days. Laboratory Results 11/20/20 04:56: PT 36.4 H, INR 3.7 H* 11/20/20 04:56: Sodium 143, Potassium 3.7, Chloride 108 H, Carbon Dioxide 28.0, Anion Gap 7, BUN 41 H, Creatinine 1.15, Estim Creat Clear Calc 38.53, Est GFR (MDRD) Af Amer 79, Est GFR (MDRD) Non-Af 65, BUN/Creatinine Ratio 35.7 H, Glucose 112 H, Calcium 7.9 L, Phosphorus 3.2, Magnesium 2.5 Current Medications Acetaminophen (Acetaminophen 325 Mg Tablet) 650 mg PO Q6H PRN PRN PRN Reason: Pain Score 1-10/Temp > 100.7 F Albuterol Sulfate (Albuterol 2.5 Mg/3 Ml Vial.Neb.) 2.5 mg INHALATION Q2H PRN PRN PRN Reason: SOB/Wheezing Albuterol/Ipratropium (Ipratropium/Albuterol Sulfate 3 Ml Ampul.Neb) 3 ml INHALATION Q4H.RT [facility] Last Admin: 11/20/20 07:00 Dose: 3 ml Documented by: Amiodarone HCl (Amiodarone 200 Mg Tablet) 200 mg PO DAILY [facility] Last Admin: 11/19/20 10:35 Dose: 200 mg Documented by: Atorvastatin Calcium (Atorvastatin Calcium 20 Mg Tablet) 20 mg PO QHS [facility] Last Admin: 11/19/20 21:38 Dose: 20 mg Documented by: Calamine/Phenol (Menthol/Lanolin/Calamine/Znox 113 Gm Tube) 1 applic TOPICAL 0600,2200 [facility]; Protocol Last Admin: 11/20/20 05:19 Dose: 1 applicatio Documented by: Calcium Carbonate (Calcium Carbonate 500 Mg Tablet) 500 mg PO Q6H PRN PRN PRN Reason: HEARTBURN Carvedilol (Carvedilol 25 Mg Tablet) 25 mg PO BID [facility] Last Admin: 02/04/21 21:38 Dose: 25 mg Documented by: Clopidogrel Bisulfate (Clopidogrel Bisulfate 75 Mg Tablet) 75 mg PO DAILY [facility] Last Admin: 11/19/20 10:35 Dose: 75 mg Documented by: Folic Acid (Folic Acid 1 Mg Tablet) 1 mg PO DAILY [facility] Last Admin: 11/19/20 10:34 Dose: 1 mg Documented by: Guaifenesin (Guaifenesin 10 Ml Udc (200mg/10ml)) 10 ml PO Q4H PRN PRN PRN Reason: COUGH Sodium Chloride () 250 mls @ 15 mls/hr IV .[id number] PRN PRN Reason: Saline Flush Last Infusion: 11/15/20 05:15 Dose: 0 mls/hr Documented by: Levothyroxine Sodium (Levothyroxine 150 Mcg Tablet) 150 mcg PO DAILY [facility] Last Admin: 11/19/20 10:35 Dose: 150 mcg Documented by: Melatonin (Melatonin 3 Mg Tablet) 3 mg PO QHS PRN PRN PRN Reason: INSOMNIA Nitroglycerin (Nitroglycerin (Inpatient Use) 0.4 Mg Tab.Subl) 0.4 mg SUBLINGUAL Q5M PRN PRN Reason: CARDIAC/CHEST PAIN Ondansetron HCl (Ondansetron 4 Mg/2 Ml Vial) 4 mg IV Q8H PRN PRN PRN Reason: NAUSEA/VOMITING Polysaccharide Iron Complex (Iron Polysaccharide Complex 150 Mg Capsule) 150 mg PO DAILY [facility] Last Admin: 11/19/20 10:35 Dose: 150 mg Documented by: Ramipril (Ramipril 5 Mg Capsule) 5 mg PO DAILY [facility] Last Admin: 11/19/20 10:35 Dose: 5 mg Documented by: Senna/Docusate Sodium (Senna/Docusate Sodium 1 Tablet) 2 tablet PO BID PRN PRN PRN Reason: Constipation Sodium Chloride (0.9% Saline Lock 10 Ml Syringe) 10 - 40 ml IV UD PRN PRN Reason: SALINE FLUSH Last Admin: 11/20/20 03:23 Dose: 10 ml Documented by: Clinical Impression(s) from Imaging Studies Chest X-Ray 11/20/20 05:40 IMPRESSION: Progressive infiltration in both lungs worse in the peripheral aspect of the left hemithorax. Electronically Signed: Milan Cao MD at 8:03 EST , Service support , Medical Necessity - Tobacco Use Smoking Status: Former smoker Assessment/Plan All Active Problems (Last Reviewed 11/14/20 @ 14:[address] Elo Parham, DO) Acute hypoxemic respiratory failure (Acute) CHF (congestive heart failure) (Acute) Pneumonia (Acute) Acute hypoxic respiratory failure (Acute) Acute bilateral COVID-19 pneumonia (Acute) Abnormal cardiac enzyme level (Resolved) Anticoagulated on Coumadin (Resolved) RECOMMENDATIONS: 1. Wean oxygenation and increase activity as tolerated 2. Increase diuretic therapy as tolerated by hemodynamics and renal function. 3. Continue BiPAP with sleep 4. Potassium supplementation as indicated. 5. Encourage incentive spirometer use and mobilize patient as tolerated. 6. No thoracentesis. IMPRESSIONS: 1. Acute hypoxic respiratory failure The patient was recently admitted to the hospital with respiratory failure secondary to COVID-19 pneumonia and was only home for approximately 2 days prior to returning to the hospital with worsening shortness of breath and hypoxemia. The patient's CTA showed no evidence for PE and looked similar in appearance when compared to prior imaging studies from his last hospitalization, with the exception of some increased groundglass and pleural effusions. Patient still requiring significant nasal cannula oxygen to maintain saturations, but clinical suspicion for decompensated heart failure leading to repeat exacerbation. Patient appears to have fibrotic type changes of bilateral lungs. Patient does have some peripheral opacity, that may indicate a loculated effusion, but this does not appear to be large enough to significantly change oxygenation status. 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 Could obtain a CT of the chest without contrast for further characterization, but it is unclear if this would change clinical outcome unless patient decided to change CODE STATUS as a result of these findings. 2. Chronic diastolic CHF/history of ascending aortic dissection status post repair/paroxysmal A. fib/hypertensive urgency The patient presented to the hospital with what appeared to be a CHF exacerbation. He has responded appropriately to noninvasive positive pressure ventilatory support and diuretic therapy. The patient is currently a patient of Dr. Jones, but is not scheduled to follow-up with him until December. I would recommend that cardiology be consulted while the patient is admitted to the hospital. 3. CKD stage III/chronic anemia/hypothyroidism/advanced age Complicates care, management, recovery and prognosis. Continue home medications as indicated. Inpatient E&M: 46435 Subs Hosp L3
[2020-11-20] MEDS: Ramipril 5 MG Capsule PO (09:51)
[2020-11-20] MEDS: Amiodarone 200 MG Tablet PO (09:51)
[2020-11-20] MEDS: Folic Acid 1 MG Tablet PO (09:51)
[2020-11-20] MEDS: Iron Polysaccharide Complex 150 MG CAPSULE PO (09:52)
[2020-11-20] MEDS: Clopidogrel Bisulfate 75 MG Tablet PO (09:52)
[2020-11-20] MEDS: Carvedilol 25 MG Tablet PO ×2 (09:52→21:35)
[2020-11-20] MEDS: Furosemide 20 MG Tablet 60 MG PO ×2 (09:52→17:21)
[2020-11-20] MEDS: Levothyroxine 150 MCG Tablet PO (09:52)
--- NOTE | 2020-11-20 10:52 | PCM.PN.HOSP ---
Patient Problems: Active and Suspected Problems (Last Reviewed 11/14/20 @ 14:[address] Elo Parham, DO) Acute hypoxemic respiratory failure (Acute) CHF (congestive heart failure) (Acute) Pneumonia (Acute) Acute bilateral COVID-19 pneumonia (Acute) Subjective: Had to be escalated on his BiPAP last time was given an extra dose of Lasix. This morning he was transitioned to 60 mg of Lasix twice daily. Still with significant shortness of breath on FiO2 of 55% on BiPAP Vitals/I&O's: Vital Signs Temp Pulse Resp BP Pulse Ox 98.4 F 88 18 145/54 H 93 11/20/20 09:56 11/20/20 09:56 11/20/20 09:56 11/20/20 09:56 11/20/20 09:56 Oxygen Flow Rate (L/min) 3 Oxygen Delivery Method Nasal Cannula Weight: 132 lb 4.438 oz Body Mass Index (BMI) 24.9 Intake and Output for Last 24 Hours 11/18/20 11/19/20 11/20/20 23:59 23:59 23:59 Intake Total 300 / 350 570 / 630 60 / 60 Output Total 1300 / 1300 650 / 1125 800 / 800 Balance -1000 / -950 -80 / -495 -740 / -740 General: Alert, Oriented x3, Cooperative, No apparent distress HEENT: Atraumatic, PERRLA, EOMI, Normocephalic Oral: Moist Mucosa Neck: Supple, No JVD Lungs: Diminished, Rales Cardiovascular: Regular rate, Regular Rhythm, Normal S1, Normal S2, No murmurs Abdomen: Soft, Non Tender, Non-Distended, No Hepato-splenomegaly Extremities: Capillary Refill Less than 3 Seconds, Edema - 1+ pitting edema bilaterally Skin: No rashes, No breakdown Neurological: Neuro grossly intact, Sensory exam intact to light touch and pain Psych/Mental Status: Normal Affect, Appropriate Microbiology Past 72 Hours 11/14/20 11:05 Blood Culture (Wb) - Left Forearm Blood Culture - Final No growth in 5 days. 11/14/20 10:25 Blood Culture (Wb) - Anticubital Right Blood Culture - Final No growth in 5 days. Laboratory Results 11/20/20 04:56: PT 36.4 H, INR 3.7 H* 11/20/20 04:56: Sodium 143, Potassium 3.7, Chloride 108 H, Carbon Dioxide 28.0, Anion Gap 7, BUN 41 H, Creatinine 1.15, Estim Creat Clear Calc 38.53, Est GFR (MDRD) Af Amer 79, Est GFR (MDRD) Non-Af 65, BUN/Creatinine Ratio 35.7 H, Glucose 112 H, Calcium 7.9 L, Phosphorus 3.2, Magnesium 2.5 Current Medications Acetaminophen (Acetaminophen 325 Mg Tablet) 650 mg PO Q6H PRN PRN PRN Reason: Pain Score 1-10/Temp > 100.7 F Albuterol Sulfate (Albuterol 2.5 Mg/3 Ml Vial.Neb.) 2.5 mg INHALATION Q2H PRN PRN PRN Reason: SOB/Wheezing Albuterol/Ipratropium (Ipratropium/Albuterol Sulfate 3 Ml Ampul.Neb) 3 ml INHALATION Q4H.RT [facility] Last Admin: 11/20/20 07:00 Dose: 3 ml Documented by: Amiodarone HCl (Amiodarone 200 Mg Tablet) 200 mg PO DAILY [facility] Last Admin: 11/20/20 09:51 Dose: 200 mg Documented by: Atorvastatin Calcium (Atorvastatin Calcium 20 Mg Tablet) 20 mg PO QHS [facility] Last Admin: 11/19/20 21:38 Dose: 20 mg Documented by: Calamine/Phenol (Menthol/Lanolin/Calamine/Znox 113 Gm Tube) 1 applic TOPICAL 0600,2200 [facility]; Protocol Last Admin: 11/20/20 05:19 Dose: 1 applicatio Documented by: Calcium Carbonate (Calcium Carbonate 500 Mg Tablet) 500 mg PO Q6H PRN PRN PRN Reason: HEARTBURN Carvedilol (Carvedilol 25 Mg Tablet) 25 mg PO BID [facility] Last Admin: 11/20/20 09:52 Dose: 25 mg Documented by: Clopidogrel Bisulfate (Clopidogrel Bisulfate 75 Mg Tablet) 75 mg PO DAILY [facility] Last Admin: 11/20/20 09:52 Dose: 75 mg Documented by: Folic Acid (Folic Acid 1 Mg Tablet) 1 mg PO DAILY [facility] Last Admin: 11/20/20 09:51 Dose: 1 mg Documented by: Furosemide (Furosemide 20 Mg Tablet) 60 mg PO BID@1000,1800 [facility] Last Admin: 11/20/20 09:52 Dose: 60 mg Documented by: Guaifenesin (Guaifenesin 10 Ml Udc (200mg/10ml)) 10 ml PO Q4H PRN PRN PRN Reason: COUGH Sodium Chloride () 250 mls @ 15 mls/hr IV .[id number] PRN PRN Reason: Saline Flush Last Infusion: 11/15/20 05:15 Dose: 0 mls/hr Documented by: Levothyroxine Sodium (Levothyroxine 150 Mcg Tablet) 150 mcg PO DAILY [facility] Last Admin: 11/20/20 09:52 Dose: 150 mcg Documented by: Melatonin (Melatonin 3 Mg Tablet) 3 mg PO QHS PRN PRN PRN Reason: INSOMNIA Nitroglycerin (Nitroglycerin (Inpatient Use) 0.4 Mg Tab.Subl) 0.4 mg SUBLINGUAL Q5M PRN PRN Reason: CARDIAC/CHEST PAIN Ondansetron HCl (Ondansetron 4 Mg/2 Ml Vial) 4 mg IV Q8H PRN PRN PRN Reason: NAUSEA/VOMITING Polysaccharide Iron Complex (Iron Polysaccharide Complex 150 Mg Capsule) 150 mg PO DAILY [facility] Last Admin: 11/20/20 09:52 Dose: 150 mg Documented by: Ramipril (Ramipril 5 Mg Capsule) 5 mg PO DAILY [facility] Last Admin: 11/20/20 09:51 Dose: 5 mg Documented by: Senna/Docusate Sodium (Senna/Docusate Sodium 1 Tablet) 2 tablet PO BID PRN PRN PRN Reason: Constipation Sodium Chloride (0.9% Saline Lock 10 Ml Syringe) 10 - 40 ml IV UD PRN PRN Reason: SALINE FLUSH Last Admin: 11/20/20 03:23 Dose: 10 ml Documented by: STROKE Vital Signs/Narrative: Vital Signs Temp Pulse Resp BP Pulse Ox 11/20/20 09:56 98.4 F 88 18 145/54 H 93 11/20/20 09:00 88 24 H 92 11/20/20 07:10 88 11/20/20 07:00 91 28 H 93 Medical Necessity - Tobacco Use Smoking Status: Former smoker Assessment/Plan All Active Problems (Last Reviewed 11/14/20 @ 14:[address] Elo Parham DO) Acute hypoxemic respiratory failure (Acute) CHF (congestive heart failure) (Acute) Pneumonia (Acute) Acute hypoxic respiratory failure (Acute) Acute bilateral COVID-19 pneumonia (Acute) Abnormal cardiac enzyme level (Resolved) Anticoagulated on Coumadin (Resolved) 1. Acute hypoxic respiratory failure secondary to acute on chronic diastolic CHF/bilateral COVID-19 pneumonia with possible chronic interstitial lung disease -He was recently admitted and discharged on November 12, 2020 with Covid. He presented a few days after discharge with hypoxia on his 4 L nasal cannula. -His leukocytosis was likely reactive to the Decadron which he had completed, and he remains afebrile -We will continue with Lasix, echo with an EF of 55% with moderately enlarged left atrium and right atrium as well as an RVSP of 45 mmHg -Continue with Lasix p.o. 60 mg twice daily, renal function stable -Continue with breathing treatments, appreciate pulmonology assistance -Evaluated by PT/OT for possible placement given his prolonged hospitalization 2. Acute on chronic diastolic CHF/paroxysmal A. fib/CAD status post stents/HTN/HLD -Blood pressure stable -Increase his Lasix to 60 mg p.o. twice daily, creatinine is back to baseline -Continue with his home blood pressure medications -We will hold his Coumadin secondary to elevated INR, Plavix, Lipitor 3. Hypothyroidism -Stable -Continue with Synthroid 4. Chronic anemia -Transfuse 1 unit on 11/17/2020 -Monitor CBC, currently 8 DVT: Coumadin Inpatient E&M: [id number] [facility] Hosp L2
--- NOTE | 2020-11-20 12:45 | CASEMGMT ---
SW met with patient. Introduced self and role at [facility]. SW asked patient how he has been doing. He said he feels a little better today. SW continued to talk with patient about his hospitalizations, COVID, and how he is doing with everything emotionally. SW provided emotional support. SW also told him anytime he would like to talk with the cranberry grower or Social Work all he has to do is ask. He thanked SW for checking in with him. Jayda MOSER MSW
--- NOTE | 2020-11-20 13:10 | CASEMGMT ---
Addendum entered by Siobhan Merrill 11/20/20 15:49: Pt/ state they do not want [facility] at this time and states would like pt placed on the [facility] waiting list. Message left with Toro at [facility] regarding same. CM to follow. Ana Paula HORNER CM Original Note: Pt updated on [facility] being full at this time and states is ok with [facility] but would like this RN CM to call his son, Tab, to update on all at this time. Call to son, aTb, and he states he is on way in to see pt at this time. Son is update on [facility] and is ok with this RN [facility] calling [facility] to check on bed availability at this time. Son, Tab, is concerned about the rooms at [facility] 'being old and drab.' Message left with Marlee at [facility] to check on bed availability at this time. CM to follow. Ana Paula HORNER CM
[2020-11-20] MEDS: Atorvastatin Calcium 20 MG Tablet PO (21:35)
[2020-11-21] VITALS (23 sets, daily range): BP systolic 95–146; BP diastolic 44–76; PULSE 68–95; RESP 12–31; TEMP 36.2–36.8; O2SAT 84–99
[2020-11-21] MEDS: Ipratropium/Albuterol Sulfate 3 ML AMPUL.NEB INHALATION ×6 (02:15→22:45)
[2020-11-21] MEDS: Menthol/Lanolin/Calamine/Znox 113 GM Tube 1 APPLIC TOPICAL ×2 (06:02→20:27)
[2020-11-21 07:53] LABS: Absolute Lymphocyte Count 0.56 X10^3/uL (0.83-4.51); Absolute Neutrophil Count 9.9 X10^3/uL (2.0-7.7); Basophil# 0.01 X10^3/uL; Basophil% 0.1 % (0-1); Eosinophil# 0.06 X10^3/uL; Eosinophils% 0.5 % (0-5); Hematocrit 24.7 % (40-54); Hemoglobin 7.5 g/dL (13.0-16.5); Lymphocyte # 0.56 X10^3/ul (4.0); Lymphocyte % 5.1 % (19-41); Mean Corp Hgb Conc 30.4 g/dL (32-36); Mean Corpuscular Hgb 27.9 pg (27.0-32.0); Mean Corpuscular Volume 91.8 fL (80-94); Mean Platelet Vol. 10.2 fl (6.2-12.0); Monocyte# 0.43 X10^3/uL; Monocyte% 3.9 % (0-10); NRBC Flagged by Analyzer 0 % (0-5); Neutrophil # 9.86 X10^3/uL (2.7-7.7); Neutrophil % 89.7 % (47-70); POSITIVE DIFFERENTIAL YES; Platelet Count 157 K/mm3 (150-450); RBC Distribution Width CV 16.7 % (11.6-14.6); RBC Distribution Width SD 56.5 fl (35.1-43.9); Red Blood Count 2.69 M/mm3 (4.6-6.2)
[2020-11-21 08:02] LABS: Differential Indicated SCAN CRITERIA MET
[2020-11-21 08:10] LABS: Anion Gap 5 (5-15); BUN 42 mg/dL (7-18); BUN/Creat Ratio 32.8 RATIO (10-20); Calcium,Total 8.1 mg/dL (8.5-10.1); Chloride 108 mmol/L (98-107); Creatinine, Serum 1.28 mg/dL (0.70-1.30); EST Glomerular Filtration Rate 58 mL/min (>60); Est Glom Filt Rate - Afr Amer 70 mL/min (>60); Estimated Creatinine Clearance 34.62 ml/min; Glucose 103 mg/dL (74-106); Potassium 3.6 mmol/L (3.5-5.1); Sodium Level 145 mmol/L (136-145)
[2020-11-21 08:21] LABS: Prothrombin Time (Protime)PT. 39.1 SECONDS (11.7-14.9)
[2020-11-21] MEDS: Levothyroxine 150 MCG Tablet PO (08:51)
[2020-11-21] MEDS: Iron Polysaccharide Complex 150 MG CAPSULE PO (08:51)
[2020-11-21] MEDS: Carvedilol 25 MG Tablet PO ×2 (08:51→20:26)
[2020-11-21] MEDS: Folic Acid 1 MG Tablet PO (08:51)
[2020-11-21] MEDS: Furosemide 20 MG Tablet 60 MG PO ×2 (08:51→17:08)
[2020-11-21] MEDS: Clopidogrel Bisulfate 75 MG Tablet PO (08:51)
[2020-11-21] MEDS: Amiodarone 200 MG Tablet PO (08:51)
[2020-11-21] MEDS: Ramipril 5 MG Capsule PO (08:52)
--- NOTE | 2020-11-21 09:14 | PN_ITS ---
Patient Problems: Active and Suspected Problems (Last Reviewed 11/14/20 @ 14:[address] Elo Parham, DO) Acute hypoxemic respiratory failure (Acute) CHF (congestive heart failure) (Acute) Pneumonia (Acute) Acute bilateral COVID-19 pneumonia (Acute) Subjective: Patient with some mild improvements following diuresis, but feels subjectively unchanged. No chest pain, abdominal pain, nausea or vomiting is reported. Patient is reporting some mild discomfort at the interface site - Physical Exam Vitals/I&O's: Vital Signs Temp Pulse Resp BP Pulse Ox 36.6 C 90 16 129/59 H 94 11/21/20 08:48 11/21/20 08:48 11/21/20 08:48 11/21/20 08:48 11/21/20 08:48 Oxygen Flow Rate (L/min) 15 Oxygen Delivery Method Airvo Weight: 58 kg Body Mass Index (BMI) 24.9 Intake and Output for Last 24 Hours 11/19/20 11/20/20 11/21/20 23:59 23:59 23:59 Intake Total 570 / 630 760 / 820 60 / 60 Output Total 650 / 1125 1150 / 1600 550 / 550 Balance -80 / -495 -390 / -780 -490 / -490 General: Alert, Oriented x3, Cooperative, No apparent distress - On BiPAP HEENT: Atraumatic, PERRLA, EOMI, Normocephalic, - - No scleral icterus or injection noted Oral: Moist Mucosa, No Gingival or Mucosal Lesions/ Ulcerations Neck: Supple, No JVD, No Nodes, Trachea Midline Lungs: No rhonchi, No wheeze, Diminished, Rales, - - Symmetric expansion Cardiovascular: Normal S1, Normal S2, Irregular Rate, Murmur, No rub noted, No Gallop Abdomen: Bowel Sounds Present, Soft, Non Tender, Non-Distended Extremities: No clubbing, No cyanosis, Edema - Lower extremities Skin: - - No change compared to previous Musculoskeletal: No Tenderness to Palpation of Joints or Extremities Lymphatic: No Cervical, Supraclavicular, or Inguinal Adenopathy Neurological: Cranial nerves II-XII grossly intact, Neuro grossly intact, Motor Exam 5/5 strength throughout Psych/Mental Status: Alert and oriented to time, place, person, mood and affect Microbiology Past 72 Hours 11/14/20 11:05 Blood Culture (Wb) - Left Forearm Blood Culture - Final No growth in 5 days. 11/14/20 10:25 Blood Culture (Wb) - Anticubital Right Blood Culture - Final No growth in 5 days. Laboratory Results 11/21/20 06:46: PT 39.1 H, INR 4.0 H* 11/21/20 06:46: WBC 11.0, RBC 2.69 L, Hgb 7.5 L, Hct 24.7 L, MCV 91.8, MCH 27.9, MCHC 30.4 L, RDW Std Deviation 56.5 H, RDW Coeff of Ej 16.7 H, Plt Count 157, MPV 10.2, Immature Gran % (Auto) 0.700, Neut % (Auto) 89.7 H, Lymph % (Auto) 5.1 L, [place] % (Auto) 3.9, Eos % (Auto) 0.5, Baso % (Auto) 0.1, Absolute Neuts (auto) 9.9 H, Absolute Lymphs (auto) 0.56 L, Nucleated RBC % 0 11/21/20 06:46: Sodium 145, Potassium 3.6, Chloride 108 H, Carbon Dioxide 32.0, Anion Gap 5, BUN 42 H, Creatinine 1.28, Estim Creat Clear Calc 34.62, Est GFR (MDRD) Af Amer 70, Est GFR (MDRD) Non-Af 58 L, BUN/Creatinine Ratio 32.8 H, Glucose 103, Calcium 8.1 L Current Medications Acetaminophen (Acetaminophen 325 Mg Tablet) 650 mg PO Q6H PRN PRN PRN Reason: Pain Score 1-10/Temp > 100.7 F Albuterol Sulfate (Albuterol 2.5 Mg/3 Ml Vial.Neb.) 2.5 mg INHALATION Q2H PRN PRN PRN Reason: SOB/Wheezing Albuterol/Ipratropium (Ipratropium/Albuterol Sulfate 3 Ml Ampul.Neb) 3 ml INHALATION Q4H.RT [facility] Last Admin: 11/21/20 07:10 Dose: 3 ml Documented by: Amiodarone HCl (Amiodarone 200 Mg Tablet) 200 mg PO DAILY [facility] Last Admin: 11/21/20 08:51 Dose: 200 mg Documented by: Atorvastatin Calcium (Atorvastatin Calcium 20 Mg Tablet) 20 mg PO QHS [facility] Last Admin: 11/20/20 21:35 Dose: 20 mg Documented by: Calamine/Phenol (Menthol/Lanolin/Calamine/Znox 113 Gm Tube) 1 applic TOPICAL 0600,2200 [facility]; Protocol Last Admin: 11/21/20 06:02 Dose: 1 applicatio Documented by: Calcium Carbonate (Calcium Carbonate 500 Mg Tablet) 500 mg PO Q6H PRN PRN PRN Reason: HEARTBURN Carvedilol (Carvedilol 25 Mg Tablet) 25 mg PO BID [facility] Last Admin: 11/21/20 08:51 Dose: 25 mg Documented by: Clopidogrel Bisulfate (Clopidogrel Bisulfate 75 Mg Tablet) 75 mg PO DAILY [facility] Last Admin: 11/21/20 08:51 Dose: 75 mg Documented by: Folic Acid (Folic Acid 1 Mg Tablet) 1 mg PO DAILY [facility] Last Admin: 11/21/20 08:51 Dose: 1 mg Documented by: Furosemide (Furosemide 20 Mg Tablet) 60 mg PO BID@1000,1800 [facility] Last Admin: 11/21/20 08:51 Dose: 60 mg Documented by: Guaifenesin (Guaifenesin 10 Ml Udc (200mg/10ml)) 10 ml PO Q4H PRN PRN PRN Reason: COUGH Sodium Chloride () 250 mls @ 15 mls/hr IV .[id number] PRN PRN Reason: Saline Flush Last Infusion: 11/20/20 18:51 Dose: Infused Documented by: Levothyroxine Sodium (Levothyroxine 150 Mcg Tablet) 150 mcg PO DAILY [facility] Last Admin: 11/21/20 08:51 Dose: 150 mcg Documented by: Melatonin (Melatonin 3 Mg Tablet) 3 mg PO QHS PRN PRN PRN Reason: INSOMNIA Nitroglycerin (Nitroglycerin (Inpatient Use) 0.4 Mg Tab.Subl) 0.4 mg SUBLINGUAL Q5M PRN PRN Reason: CARDIAC/CHEST PAIN Ondansetron HCl (Ondansetron 4 Mg/2 Ml Vial) 4 mg IV Q8H PRN PRN PRN Reason: NAUSEA/VOMITING Polysaccharide Iron Complex (Iron Polysaccharide Complex 150 Mg Capsule) 150 mg PO DAILY [facility] Last Admin: 11/21/20 08:51 Dose: 150 mg Documented by: Ramipril (Ramipril 5 Mg Capsule) 5 mg PO DAILY [facility] Last Admin: 11/21/20 08:52 Dose: 5 mg Documented by: Senna/Docusate Sodium (Senna/Docusate Sodium 1 Tablet) 2 tablet PO BID PRN PRN PRN Reason: Constipation Sodium Chloride (0.9% Saline Lock 10 Ml Syringe) 10 - 40 ml IV UD PRN PRN Reason: SALINE FLUSH Last Admin: 11/20/20 03:23 Dose: 10 ml Documented by: Medical Necessity - Tobacco Use Smoking Status: Former smoker Assessment/Plan All Active Problems (Last Reviewed 11/14/20 @ 14:[address] Elo Parham, DO) Acute hypoxemic respiratory failure (Acute) CHF (congestive heart failure) (Acute) Pneumonia (Acute) Acute hypoxic respiratory failure (Acute) Acute bilateral COVID-19 pneumonia (Acute) Abnormal cardiac enzyme level (Resolved) Anticoagulated on Coumadin (Resolved) RECOMMENDATIONS: 1. Wean oxygenation and increase activity as tolerated 2. Continue current diuretic therapy as tolerated by hemodynamics and renal function. 3. Continue BiPAP with sleep, Airvo during the day 4. Potassium supplementation as indicated. 5. Encourage incentive spirometer use and mobilize patient as tolerated. 6. Obtain CT without contrast tomorrow if continues to have no improvement IMPRESSIONS: 1. Acute hypoxic respiratory failure The patient was recently admitted to the hospital with respiratory failure secondary to COVID-19 pneumonia and was only home for approximately 2 days prior to returning to the hospital with worsening shortness of breath and hypoxemia. The patient's CTA showed no evidence for PE and looked similar in appearance when compared to prior imaging studies from his last hospitalization, with the exception of some increased groundglass and pleural effusions. Patient still requiring significant nasal cannula oxygen to maintain saturations, but clinical suspicion for decompensated heart failure leading to repeat exacerbation. Patient appears to have fibrotic type changes of bilateral lungs. Patient does have some peripheral opacity, that may indicate a loculated effusion, but this does not appear to be large enough to significantly change oxygenation status. 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 Could obtain a CT of the chest without contrast for further characterization, but it is unclear if this would change clinical outcome unless patient decided to change CODE STATUS as a result of these findings. 2. Chronic diastolic CHF/history of ascending aortic dissection status post repair/paroxysmal A. fib/hypertensive urgency The patient presented to the hospital with what appeared to be a CHF exacerbation. He has responded appropriately to noninvasive positive pressure ventilatory support and diuretic therapy. The patient is currently a patient of Dr. Jones, but is not scheduled to follow-up with him until December. I would recommend that cardiology be consulted while the patient is admitted to the hospital. 3. CKD stage III/chronic anemia/hypothyroidism/advanced age Complicates care, management, recovery and prognosis. Continue home medications as indicated. Inpatient E&M: [id number] [facility] Hosp L3
--- NOTE | 2020-11-21 11:15 | NURSING ---
This RN taking over care of pt at this time.
--- NOTE | 2020-11-21 12:10 | PCM.PN.HOSP ---
Patient Problems: Active and Suspected Problems (Last Reviewed 11/14/20 @ 14:[address] Elo Parham, DO) Acute hypoxemic respiratory failure (Acute) CHF (congestive heart failure) (Acute) Pneumonia (Acute) Acute bilateral COVID-19 pneumonia (Acute) Subjective: On air Vo now tolerating it okay with BiPAP overnight. Still a bit short of breath and feels somewhat weak. Vitals/I&O's: Vital Signs Temp Pulse Resp BP Pulse Ox 97.9 F 75 26 H 129/59 H 94 11/21/20 08:48 11/21/20 11:35 11/21/20 11:35 11/21/20 08:48 11/21/20 11:34 Oxygen Flow Rate (L/min) 15 Oxygen Delivery Method Airvo Weight: 127 lb 13.89 oz Body Mass Index (BMI) 24.9 Intake and Output for Last 24 Hours 11/19/20 11/20/20 11/21/20 23:59 23:59 23:59 Intake Total 570 / 630 760 / 820 60 / 60 Output Total 650 / 1125 1150 / 1600 550 / 550 Balance -80 / -495 -390 / -780 -490 / -490 General: Alert, Oriented x3, Cooperative, No apparent distress HEENT: Atraumatic, PERRLA, EOMI, Normocephalic Oral: Moist Mucosa Neck: Supple, No JVD Lungs: Diminished, Rales Cardiovascular: Regular rate, Regular Rhythm, Normal S1, Normal S2, No murmurs Abdomen: Soft, Non Tender, Non-Distended, No Hepato-splenomegaly Extremities: Capillary Refill Less than 3 Seconds, Edema - 1+ pitting edema bilaterally Skin: No rashes, No breakdown Neurological: Neuro grossly intact, Sensory exam intact to light touch and pain Psych/Mental Status: Normal Affect, Appropriate Microbiology Past 72 Hours 11/14/20 11:05 Blood Culture (Wb) - Left Forearm Blood Culture - Final No growth in 5 days. 11/14/20 10:25 Blood Culture (Wb) - Anticubital Right Blood Culture - Final No growth in 5 days. Laboratory Results 11/21/20 06:46: PT 39.1 H, INR 4.0 H* 11/21/20 06:46: WBC 11.0, RBC 2.69 L, Hgb 7.5 L, Hct 24.7 L, MCV 91.8, MCH 27.9, MCHC 30.4 L, RDW Std Deviation 56.5 H, RDW Coeff of Ej 16.7 H, Plt Count 157, MPV 10.2, Immature Gran % (Auto) 0.700, Neut % (Auto) 89.7 H, Lymph % (Auto) 5.1 L, [place] % (Auto) 3.9, Eos % (Auto) 0.5, Baso % (Auto) 0.1, Absolute Neuts (auto) 9.9 H, Absolute Lymphs (auto) 0.56 L, Nucleated RBC % 0 11/21/20 06:46: Sodium 145, Potassium 3.6, Chloride 108 H, Carbon Dioxide 32.0, Anion Gap 5, BUN 42 H, Creatinine 1.28, Estim Creat Clear Calc 34.62, Est GFR (MDRD) Af Amer 70, Est GFR (MDRD) Non-Af 58 L, BUN/Creatinine Ratio 32.8 H, Glucose 103, Calcium 8.1 L Current Medications Acetaminophen (Acetaminophen 325 Mg Tablet) 650 mg PO Q6H PRN PRN PRN Reason: Pain Score 1-10/Temp > 100.7 F Albuterol Sulfate (Albuterol 2.5 Mg/3 Ml Vial.Neb.) 2.5 mg INHALATION Q2H PRN PRN PRN Reason: SOB/Wheezing Albuterol/Ipratropium (Ipratropium/Albuterol Sulfate 3 Ml Ampul.Neb) 3 ml INHALATION Q4H.RT [facility] Last Admin: 11/21/20 11:33 Dose: 3 ml Documented by: Amiodarone HCl (Amiodarone 200 Mg Tablet) 200 mg PO DAILY [facility] Last Admin: 11/21/20 08:51 Dose: 200 mg Documented by: Atorvastatin Calcium (Atorvastatin Calcium 20 Mg Tablet) 20 mg PO QHS [facility] Last Admin: 11/20/20 21:35 Dose: 20 mg Documented by: Calamine/Phenol (Menthol/Lanolin/Calamine/Znox 113 Gm Tube) 1 applic TOPICAL 0600,2200 [facility]; Protocol Last Admin: 11/21/20 06:02 Dose: 1 applicatio Documented by: Calcium Carbonate (Calcium Carbonate 500 Mg Tablet) 500 mg PO Q6H PRN PRN PRN Reason: HEARTBURN Carvedilol (Carvedilol 25 Mg Tablet) 25 mg PO BID [facility] Last Admin: 11/21/20 08:51 Dose: 25 mg Documented by: Clopidogrel Bisulfate (Clopidogrel Bisulfate 75 Mg Tablet) 75 mg PO DAILY [facility] Last Admin: 11/21/20 08:51 Dose: 75 mg Documented by: Folic Acid (Folic Acid 1 Mg Tablet) 1 mg PO DAILY [facility] Last Admin: 11/21/20 08:51 Dose: 1 mg Documented by: Furosemide (Furosemide 20 Mg Tablet) 60 mg PO BID@1000,1800 [facility] Last Admin: 11/21/20 08:51 Dose: 60 mg Documented by: Guaifenesin (Guaifenesin 10 Ml Udc (200mg/10ml)) 10 ml PO Q4H PRN PRN PRN Reason: COUGH Sodium Chloride () 250 mls @ 15 mls/hr IV .[id number] PRN PRN Reason: Saline Flush Last Infusion: 11/20/20 18:51 Dose: Infused Documented by: Levothyroxine Sodium (Levothyroxine 150 Mcg Tablet) 150 mcg PO DAILY [facility] Last Admin: 11/21/20 08:51 Dose: 150 mcg Documented by: Melatonin (Melatonin 3 Mg Tablet) 3 mg PO QHS PRN PRN PRN Reason: INSOMNIA Nitroglycerin (Nitroglycerin (Inpatient Use) 0.4 Mg Tab.Subl) 0.4 mg SUBLINGUAL Q5M PRN PRN Reason: CARDIAC/CHEST PAIN Ondansetron HCl (Ondansetron 4 Mg/2 Ml Vial) 4 mg IV Q8H PRN PRN PRN Reason: NAUSEA/VOMITING Polysaccharide Iron Complex (Iron Polysaccharide Complex 150 Mg Capsule) 150 mg PO DAILY [facility] Last Admin: 11/21/20 08:51 Dose: 150 mg Documented by: Ramipril (Ramipril 5 Mg Capsule) 5 mg PO DAILY [facility] Last Admin: 11/21/20 08:52 Dose: 5 mg Documented by: Senna/Docusate Sodium (Senna/Docusate Sodium 1 Tablet) 2 tablet PO BID PRN PRN PRN Reason: Constipation Sodium Chloride (0.9% Saline Lock 10 Ml Syringe) 10 - 40 ml IV UD PRN PRN Reason: SALINE FLUSH Last Admin: 11/20/20 03:23 Dose: 10 ml Documented by: STROKE Vital Signs/Narrative: Vital Signs Temp Pulse Resp BP Pulse Ox 11/21/20 11:35 75 26 H 11/21/20 11:34 68 94 11/21/20 08:48 97.9 F 90 16 129/59 H 94 Medical Necessity - Tobacco Use Smoking Status: Former smoker Assessment/Plan All Active Problems (Last Reviewed 11/14/20 @ 14:[address] Elo Parham, DO) Acute hypoxemic respiratory failure (Acute) CHF (congestive heart failure) (Acute) Pneumonia (Acute) Acute hypoxic respiratory failure (Acute) Acute bilateral COVID-19 pneumonia (Acute) Abnormal cardiac enzyme level (Resolved) Anticoagulated on Coumadin (Resolved) 1. Acute hypoxic respiratory failure secondary to acute on chronic diastolic CHF/bilateral COVID-19 pneumonia with possible chronic interstitial lung disease -He was recently admitted and discharged on November 12, 2020 with Covid. He presented a few days after discharge with hypoxia on his 4 L nasal cannula. -His leukocytosis was likely reactive to the Decadron which he had completed, and he remains afebrile -We will continue with Lasix, echo with an EF of 55% with moderately enlarged left atrium and right atrium as well as an RVSP of 45 mmHg -Continue with Lasix p.o. 60 mg twice daily, renal function stable -Continue with breathing treatments, appreciate pulmonology assistance -Evaluated by PT/OT for possible placement given his prolonged hospitalization 2. Acute on chronic diastolic CHF/paroxysmal A. fib/CAD status post stents/HTN/HLD -Blood pressure stable -Increase his Lasix to 60 mg p.o. twice daily, creatinine is back to baseline -Continue with his home blood pressure medications -We will hold his Coumadin secondary to elevated INR, Plavix, Lipitor 3. Hypothyroidism -Stable -Continue with Synthroid 4. Chronic iron deficiency anemia -Transfuse 1 unit on 11/17/2020 -Monitor CBC, currently down to 7.5, will check a fecal occult -In May his iron concentration was 36 with a normal ferritin DVT: Therapeutic INR Inpatient E&M: [id number] Subs Hosp L2
[2020-11-21] MEDS: Atorvastatin Calcium 20 MG Tablet PO (20:25)
--- NOTE | 2020-11-21 20:46 | NURSING ---
patient O2 sats consistently in mid 80s. pt on airvo at this time. resp therapy paged to room to assess. pt repositioned in bed. increased oxygen level on airvo. Discussed with pt about wearing Bipap at HS and agreeable to wear it when he is ready to sleep. Pt able to answer questions appropriately and take HS meds.
[2020-11-22] VITALS (26 sets, daily range): BP systolic 101–162; BP diastolic 44–77; PULSE 61–96; RESP 12–35; TEMP 36.1–37; O2SAT 88–96
[2020-11-22] MEDS: Ipratropium/Albuterol Sulfate 3 ML AMPUL.NEB INHALATION ×6 (02:45→23:20)
[2020-11-22] MEDS: Menthol/Lanolin/Calamine/Znox 113 GM Tube 1 APPLIC TOPICAL ×2 (05:41→21:00)
[2020-11-22 07:22] LABS: Absolute Lymphocyte Count 0.45 X10^3/uL (0.83-4.51); Absolute Neutrophil Count 9.1 X10^3/uL (2.0-7.7); Basophil# 0.02 X10^3/uL; Basophil% 0.2 % (0-1); Eosinophil# 0.09 X10^3/uL; Eosinophils% 0.9 % (0-5); Hematocrit 23.6 % (40-54); Hemoglobin 7.1 g/dL (13.0-16.5); Lymphocyte # 0.45 X10^3/ul (4.0); Lymphocyte % 4.4 % (19-41); Mean Corp Hgb Conc 30.1 g/dL (32-36); Mean Corpuscular Volume 92.9 fL (80-94); Mean Platelet Vol. 10.2 fl (6.2-12.0); Monocyte# 0.41 X10^3/uL; NRBC Flagged by Analyzer 0 % (0-5); Neutrophil # 9.14 X10^3/uL (2.7-7.7); Neutrophil % 89.4 % (47-70); POSITIVE DIFFERENTIAL YES; Platelet Count 143 K/mm3 (150-450); RBC Distribution Width CV 16.6 % (11.6-14.6); RBC Distribution Width SD 57.1 fl (35.1-43.9); Red Blood Count 2.54 M/mm3 (4.6-6.2); White Blood Count 10.2 K/mm3 (4.4-11.0)
[2020-11-22 07:23] LABS: Differential Indicated SCAN CRITERIA MET
[2020-11-22 07:57] LABS: Anion Gap 7 (5-15); BUN 46 mg/dL (7-18); BUN/Creat Ratio 36.5 RATIO (10-20); Chloride 107 mmol/L (98-107); Creatinine, Serum 1.26 mg/dL (0.70-1.30); EST Glomerular Filtration Rate 59 mL/min (>60); Est Glom Filt Rate - Afr Amer 71 mL/min (>60); Estimated Creatinine Clearance 35.17 ml/min; Glucose 94 mg/dL (74-106); Potassium 3.6 mmol/L (3.5-5.1); Sodium Level 145 mmol/L (136-145)
[2020-11-22 08:03] LABS: Hypochromasia 1+
[2020-11-22 08:08] LABS: International Normalized Ratio 3.9; Prothrombin Time (Protime)PT. 37.7 SECONDS (11.7-14.9)
--- NOTE | 2020-11-22 08:15 | CT_ITS ---
STUDY: CTA CHEST REASON FOR EXAM: Male, 80 years old. Acute hypoxic respiratory failure, on bi-pap, COVID, aortic valve surgery, stents, hypertension. RADIATION DOSAGE (If Supplied By Facility): CTDIvol = ( 11.43 ) mGy, DLP = ( 396.24 ) mGycm TECHNIQUE: The examination was performed with the intravenous administration of IV 75mL Isovue-370. Post-processing of the angiographic images was performed, with multiplanar reformation and 3D reconstruction. Individualized dose optimization techniques were used for this CT. COMPARISON: 11/14/2020 FINDINGS: Status post median sternotomy. Normal enhancement of the main pulmonary artery and right and left pulmonary arteries. Normal enhancement of the bilateral peripheral pulmonary arteries. There is no demonstrated pulmonary embolism. There is atherosclerotic calcification of the aortic arch with tortuosity. Suspected graft in the descending aorta. There is no demonstrated aortic dissection. There is cardiomegaly. There are calcifications of the coronary arteries. Moderate-sized hiatal hernia. Normal hilar regions. Normal visualized trachea and bronchi. The lungs are well expanded. Increase in the diffuse groundglass opacities throughout the lungs consistent with worsening bilateral pneumonia, pulmonary edema, or ARDS. The moderate bilateral pleural effusions with bibasilar atelectasis which is similar to the prior study. Normal chest wall structures. Normal osseous structures. Normal visualized upper abdomen. CT/CTA Chest W/WO Contrast IMPRESSION: 1. No CT evidence of pulmonary embolism. 2. Worsening bilateral pneumonia, pulmonary edema, or ARDS. 3. No change in moderate bilateral pleural effusions with bibasilar atelectasis. Electronically Signed: Caleb Hinds MD at 9:41 EST Tel , Service support ,
--- NOTE | 2020-11-22 08:17 | PCM.PN.PUL ---
Patient Problems: Active and Suspected Problems (Last Reviewed 11/14/20 @ 14:[address] Elo Parham, DO) Acute hypoxemic respiratory failure (Acute) CHF (congestive heart failure) (Acute) Pneumonia (Acute) Acute bilateral COVID-19 pneumonia (Acute) Subjective: Patient did okay overnight. Patient still with high oxygen requirements. Patient with no complaints this morning, but is requiring Airvo consistently. No fevers have been noted. No bleeding has been reported despite elevated INR. - Physical Exam Vitals/I&O's: Vital Signs Temp Pulse Resp BP Pulse Ox 36.9 C 90 24 H 116/56 L 93 11/22/20 05:30 11/22/20 07:25 11/22/20 07:25 11/22/20 05:30 11/22/20 07:25 Oxygen Flow Rate (L/min) 50 Oxygen Delivery Method Bi-pap Weight: 59.9 kg Body Mass Index (BMI) 24.9 Intake and Output for Last 24 Hours 11/20/20 11/21/20 11/22/20 23:59 23:59 23:59 Intake Total 760 / 820 110 / 110 Output Total 1150 / 1600 950 / 950 250 / 250 Balance -390 / -780 -840 / -840 -250 / -250 General: Alert, Oriented x3, Cooperative, No apparent distress - On BiPAP, - - Frail appearance HEENT: Atraumatic, PERRLA, EOMI, Normocephalic, - - No scleral icterus or injection Oral: Moist Mucosa, No Gingival or Mucosal Lesions/ Ulcerations Neck: Supple, No JVD, No Nodes, Trachea Midline Lungs: No rhonchi, No wheeze, Diminished, Rales - Bilateral Cardiovascular: Normal S1, Normal S2, No murmurs, Irregular Rate, No rub noted, No Gallop Abdomen: Bowel Sounds Present, Soft, Non Tender, Non-Distended Extremities: No clubbing, No cyanosis, Edema Skin: - - No changes from previous Musculoskeletal: No Tenderness to Palpation of Joints or Extremities Lymphatic: No Cervical, Supraclavicular, or Inguinal Adenopathy Neurological: Cranial nerves II-XII grossly intact, Neuro grossly intact, Motor Exam 5/5 strength throughout Psych/Mental Status: Alert and oriented to time, place, person, mood and affect Microbiology Past 72 Hours 11/14/20 11:05 Blood Culture (Wb) - Left Forearm Blood Culture - Final No growth in 5 days. 11/14/20 10:25 Blood Culture (Wb) - Anticubital Right Blood Culture - Final No growth in 5 days. Laboratory Results 11/21/20 06:46: PT 39.1 H, INR 4.0 H* 11/22/20 06:05: PT 37.7 H, INR 3.9 H* 11/22/20 06:05: WBC 10.2, RBC 2.54 L, Hgb 7.1 L, Hct 23.6 L, MCV 92.9, MCH 28.0, MCHC 30.1 L, RDW Std Deviation 57.1 H, RDW Coeff of Ej 16.6 H, Plt Count 143 L, MPV 10.2, Immature Gran % (Auto) 1.100 H, Neut % (Auto) 89.4 H, Lymph % (Auto) 4.4 L, [place] % (Auto) 4.0, Eos % (Auto) 0.9, Baso % (Auto) 0.2, Absolute Neuts (auto) 9.1 H, Absolute Lymphs (auto) 0.45 L, Nucleated RBC % 0, Hypochromasia 1+ 11/22/20 06:05: Sodium 145, Potassium 3.6, Chloride 107, Carbon Dioxide 31.0, Anion Gap 7, BUN 46 H, Creatinine 1.26, Estim Creat Clear Calc 35.17, Est GFR (MDRD) Af Amer 71, Est GFR (MDRD) Non-Af 59 L, BUN/Creatinine Ratio 36.5 H, Glucose 94, Calcium 8.0 L Current Medications Acetaminophen (Acetaminophen 325 Mg Tablet) 650 mg PO Q6H PRN PRN PRN Reason: Pain Score 1-10/Temp > 100.7 F Albuterol Sulfate (Albuterol 2.5 Mg/3 Ml Vial.Neb.) 2.5 mg INHALATION Q2H PRN PRN PRN Reason: SOB/Wheezing Albuterol/Ipratropium (Ipratropium/Albuterol Sulfate 3 Ml Ampul.Neb) 3 ml INHALATION Q4H.RT [facility] Last Admin: 11/22/20 07:26 Dose: 3 ml Documented by: Amiodarone HCl (Amiodarone 200 Mg Tablet) 200 mg PO DAILY [facility] Last Admin: 11/21/20 08:51 Dose: 200 mg Documented by: Atorvastatin Calcium (Atorvastatin Calcium 20 Mg Tablet) 20 mg PO QHS [facility] Last Admin: 11/21/20 20:25 Dose: 20 mg Documented by: Calamine/Phenol (Menthol/Lanolin/Calamine/Znox 113 Gm Tube) 1 applic TOPICAL 0600,2200 [facility]; Protocol Last Admin: 11/22/20 05:41 Dose: 1 applicatio Documented by: Calcium Carbonate (Calcium Carbonate 500 Mg Tablet) 500 mg PO Q6H PRN PRN PRN Reason: HEARTBURN Carvedilol (Carvedilol 25 Mg Tablet) 25 mg PO BID [facility] Last Admin: 11/21/20 20:26 Dose: 25 mg Documented by: Clopidogrel Bisulfate (Clopidogrel Bisulfate 75 Mg Tablet) 75 mg PO DAILY [facility] Last Admin: 11/21/20 08:51 Dose: 75 mg Documented by: Folic Acid (Folic Acid 1 Mg Tablet) 1 mg PO DAILY [facility] Last Admin: 11/21/20 08:51 Dose: 1 mg Documented by: Furosemide (Furosemide 20 Mg Tablet) 60 mg PO BID@1000,1800 [facility] Last Admin: 11/21/20 17:08 Dose: 60 mg Documented by: Guaifenesin (Guaifenesin 10 Ml Udc (200mg/10ml)) 10 ml PO Q4H PRN PRN PRN Reason: COUGH Sodium Chloride () 250 mls @ 15 mls/hr IV .[id number] PRN PRN Reason: Saline Flush Last Infusion: 11/20/20 18:51 Dose: Infused Documented by: Levothyroxine Sodium (Levothyroxine 150 Mcg Tablet) 150 mcg PO DAILY [facility] Last Admin: 11/21/20 08:51 Dose: 150 mcg Documented by: Melatonin (Melatonin 3 Mg Tablet) 3 mg PO QHS PRN PRN PRN Reason: INSOMNIA Nitroglycerin (Nitroglycerin (Inpatient Use) 0.4 Mg Tab.Subl) 0.4 mg SUBLINGUAL Q5M PRN PRN Reason: CARDIAC/CHEST PAIN Ondansetron HCl (Ondansetron 4 Mg/2 Ml Vial) 4 mg IV Q8H PRN PRN PRN Reason: NAUSEA/VOMITING Polysaccharide Iron Complex (Iron Polysaccharide Complex 150 Mg Capsule) 150 mg PO DAILY [facility] Last Admin: 11/21/20 08:51 Dose: 150 mg Documented by: Ramipril (Ramipril 5 Mg Capsule) 5 mg PO DAILY [facility] Last Admin: 11/21/20 08:52 Dose: 5 mg Documented by: Senna/Docusate Sodium (Senna/Docusate Sodium 1 Tablet) 2 tablet PO BID PRN PRN PRN Reason: Constipation Sodium Chloride (0.9% Saline Lock 10 Ml Syringe) 10 - 40 ml IV UD PRN PRN Reason: SALINE FLUSH Last Admin: 11/20/20 03:23 Dose: 10 ml Documented by: Medical Necessity - Tobacco Use Smoking Status: Former smoker Assessment/Plan All Active Problems (Last Reviewed 11/14/20 @ 14:[address] Elo Parham, DO) Acute hypoxemic respiratory failure (Acute) CHF (congestive heart failure) (Acute) Pneumonia (Acute) Acute hypoxic respiratory failure (Acute) Acute bilateral COVID-19 pneumonia (Acute) Abnormal cardiac enzyme level (Resolved) Anticoagulated on Coumadin (Resolved) RECOMMENDATIONS: 1. Wean oxygenation and increase activity as tolerated 2. Continue current diuretic therapy as tolerated by hemodynamics and renal function. 3. Continue BiPAP with sleep, Airvo during the day 4. Obtain CTA of the chest 5. Encourage incentive spirometer use and mobilize patient as tolerated. 6. Continue to hold Coumadin given elevated INR IMPRESSIONS: 1. Acute hypoxic respiratory failure The patient was recently admitted to the hospital with respiratory failure secondary to COVID-19 pneumonia and was only home for approximately 2 days prior to returning to the hospital with worsening shortness of breath and hypoxemia. The patient's CTA showed no evidence for PE and looked similar in appearance when compared to prior imaging studies from his last hospitalization, with the exception of some increased groundglass and pleural effusions. Patient still requiring significant nasal cannula oxygen to maintain saturations, but clinical suspicion for decompensated heart failure leading to repeat exacerbation. Patient appears to have fibrotic type changes of bilateral lungs. Unclear why patient continues to require such high oxygen requirements. INR has been therapeutic throughout hospitalization. Some concern for progression to postinflammatory pulmonary fibrosis. Will obtain a CTA of the chest for better characterization. 2. Chronic diastolic CHF/history of ascending aortic dissection status post repair/paroxysmal A. fib/hypertensive urgency The patient presented to the hospital with what appeared to be a CHF exacerbation. He has responded appropriately to noninvasive positive pressure ventilatory support and diuretic therapy. The patient is currently a patient of Dr. Jones, but is not scheduled to follow-up with him until December. I would recommend that cardiology be consulted while the patient is admitted to the hospital. 3. CKD stage III/chronic anemia/hypothyroidism/advanced age Complicates care, management, recovery and prognosis. Continue home medications as indicated. Inpatient E&M: 64615 Subs Hosp L3
[2020-11-22] MEDS: Acetaminophen 325 MG Tablet 650 MG PO (09:14)
[2020-11-22] MEDS: Amiodarone 200 MG Tablet PO (09:17)
[2020-11-22] MEDS: Clopidogrel Bisulfate 75 MG Tablet PO (09:17)
[2020-11-22] MEDS: Ramipril 5 MG Capsule PO (09:17)
[2020-11-22] MEDS: Carvedilol 25 MG Tablet PO ×2 (09:17→23:36)
[2020-11-22] MEDS: Folic Acid 1 MG Tablet PO (09:17)
[2020-11-22] MEDS: Iron Polysaccharide Complex 150 MG CAPSULE PO (09:17)
[2020-11-22] MEDS: Furosemide 20 MG Tablet 60 MG PO ×2 (09:17→17:32)
[2020-11-22] MEDS: Levothyroxine 150 MCG Tablet PO (09:17)
--- NOTE | 2020-11-22 11:38 | PCM.PN.HOSP ---
Patient Problems: Active and Suspected Problems (Last Reviewed 11/14/20 @ 14:[address] Elo Parham, DO) Acute hypoxemic respiratory failure (Acute) CHF (congestive heart failure) (Acute) Pneumonia (Acute) Acute bilateral COVID-19 pneumonia (Acute) Subjective: No issues overnight, breathing is stable on air Vo. Vitals/I&O's: Vital Signs Temp Pulse Resp BP Pulse Ox 98.6 F 92 22 H 114/55 L 93 11/22/20 09:10 11/22/20 10:51 11/22/20 10:51 11/22/20 09:10 11/22/20 10:50 Oxygen Flow Rate (L/min) 60 Oxygen Delivery Method Airvo Weight: 132 lb 0.91 oz Body Mass Index (BMI) 24.9 Intake and Output for Last 24 Hours 11/20/20 11/21/20 11/22/20 23:59 23:59 23:59 Intake Total 760 / 820 110 / 110 Output Total 1150 / 1600 950 / 950 250 / 250 Balance -390 / -780 -840 / -840 -250 / -250 General: Alert, Oriented x3, Cooperative, No apparent distress HEENT: Atraumatic, PERRLA, EOMI, Normocephalic Oral: Moist Mucosa Neck: Supple, No JVD Lungs: Diminished, Rales Cardiovascular: Regular rate, Regular Rhythm, Normal S1, Normal S2, No murmurs Abdomen: Soft, Non Tender, Non-Distended, No Hepato-splenomegaly Extremities: Capillary Refill Less than 3 Seconds, Edema - 1+ pitting edema bilaterally Skin: No rashes, No breakdown Neurological: Neuro grossly intact, Sensory exam intact to light touch and pain Psych/Mental Status: Normal Affect, Appropriate Microbiology Past 72 Hours 11/22/20 10:20 Stool Stool Occult Blood (SLIME) - Final Occult Blood Positive 11/14/20 11:05 Blood Culture (Wb) - Left Forearm Blood Culture - Final No growth in 5 days. 11/14/20 10:25 Blood Culture (Wb) - Anticubital Right Blood Culture - Final No growth in 5 days. Laboratory Results 11/22/20 06:05: PT 37.7 H, INR 3.9 H* 11/22/20 06:05: WBC 10.2, RBC 2.54 L, Hgb 7.1 L, Hct 23.6 L, MCV 92.9, MCH 28.0, MCHC 30.1 L, RDW Std Deviation 57.1 H, RDW Coeff of Ej 16.6 H, Plt Count 143 L, MPV 10.2, Immature Gran % (Auto) 1.100 H, Neut % (Auto) 89.4 H, Lymph % (Auto) 4.4 L, [place] % (Auto) 4.0, Eos % (Auto) 0.9, Baso % (Auto) 0.2, Absolute Neuts (auto) 9.1 H, Absolute Lymphs (auto) 0.45 L, Nucleated RBC % 0, Hypochromasia 1+ 11/22/20 06:05: Sodium 145, Potassium 3.6, Chloride 107, Carbon Dioxide 31.0, Anion Gap 7, BUN 46 H, Creatinine 1.26, Estim Creat Clear Calc 35.17, Est GFR (MDRD) Af Amer 71, Est GFR (MDRD) Non-Af 59 L, BUN/Creatinine Ratio 36.5 H, Glucose 94, Calcium 8.0 L Current Medications Acetaminophen (Acetaminophen 325 Mg Tablet) 650 mg PO Q6H PRN PRN PRN Reason: Pain Score 1-10/Temp > 100.7 F Last Admin: 11/22/20 09:14 Dose: 650 mg Documented by: Albuterol Sulfate (Albuterol 2.5 Mg/3 Ml Vial.Neb.) 2.5 mg INHALATION Q2H PRN PRN PRN Reason: SOB/Wheezing Albuterol/Ipratropium (Ipratropium/Albuterol Sulfate 3 Ml Ampul.Neb) 3 ml INHALATION Q4H.RT [facility] Last Admin: 11/22/20 10:50 Dose: 3 ml Documented by: Amiodarone HCl (Amiodarone 200 Mg Tablet) 200 mg PO DAILY [facility] Last Admin: 11/22/20 09:17 Dose: 200 mg Documented by: Atorvastatin Calcium (Atorvastatin Calcium 20 Mg Tablet) 20 mg PO QHS [facility] Last Admin: 11/21/20 20:25 Dose: 20 mg Documented by: Calamine/Phenol (Menthol/Lanolin/Calamine/Znox 113 Gm Tube) 1 applic TOPICAL 0600,2200 [facility]; Protocol Last Admin: 11/22/20 05:41 Dose: 1 applicatio Documented by: Calcium Carbonate (Calcium Carbonate 500 Mg Tablet) 500 mg PO Q6H PRN PRN PRN Reason: HEARTBURN Carvedilol (Carvedilol 25 Mg Tablet) 25 mg PO BID [facility] Last Admin: 11/22/20 09:17 Dose: 25 mg Documented by: Clopidogrel Bisulfate (Clopidogrel Bisulfate 75 Mg Tablet) 75 mg PO DAILY [facility] Last Admin: 11/22/20 09:17 Dose: 75 mg Documented by: Folic Acid (Folic Acid 1 Mg Tablet) 1 mg PO DAILY [facility] Last Admin: 11/22/20 09:17 Dose: 1 mg Documented by: Furosemide (Furosemide 20 Mg Tablet) 60 mg PO BID@1000,1800 [facility] Last Admin: 11/22/20 09:17 Dose: 60 mg Documented by: Guaifenesin (Guaifenesin 10 Ml Udc (200mg/10ml)) 10 ml PO Q4H PRN PRN PRN Reason: COUGH Sodium Chloride () 250 mls @ 15 mls/hr IV .[id number] PRN PRN Reason: Saline Flush Last Infusion: 11/20/20 18:51 Dose: Infused Documented by: Levothyroxine Sodium (Levothyroxine 150 Mcg Tablet) 150 mcg PO DAILY [facility] Last Admin: 11/22/20 09:17 Dose: 150 mcg Documented by: Melatonin (Melatonin 3 Mg Tablet) 3 mg PO QHS PRN PRN PRN Reason: INSOMNIA Nitroglycerin (Nitroglycerin (Inpatient Use) 0.4 Mg Tab.Subl) 0.4 mg SUBLINGUAL Q5M PRN PRN Reason: CARDIAC/CHEST PAIN Ondansetron HCl (Ondansetron 4 Mg/2 Ml Vial) 4 mg IV Q8H PRN PRN PRN Reason: NAUSEA/VOMITING Polysaccharide Iron Complex (Iron Polysaccharide Complex 150 Mg Capsule) 150 mg PO DAILY [facility] Last Admin: 11/22/20 09:17 Dose: 150 mg Documented by: Ramipril (Ramipril 5 Mg Capsule) 5 mg PO DAILY [facility] Last Admin: 11/22/20 09:17 Dose: 5 mg Documented by: Senna/Docusate Sodium (Senna/Docusate Sodium 1 Tablet) 2 tablet PO BID PRN PRN PRN Reason: Constipation Sodium Chloride (0.9% Saline Lock 10 Ml Syringe) 10 - 40 ml IV UD PRN PRN Reason: SALINE FLUSH Last Admin: 11/20/20 03:23 Dose: 10 ml Documented by: STROKE Vital Signs/Narrative: Vital Signs Temp Pulse Resp BP Pulse Ox 11/22/20 10:51 92 22 H 11/22/20 10:50 61 22 H 93 11/22/20 10:15 92 11/22/20 09:10 98.6 F 85 18 114/55 L 93 Medical Necessity - Tobacco Use Smoking Status: Former smoker Assessment/Plan All Active Problems (Last Reviewed 11/14/20 @ 14:[address] Elo Parham, DO) Acute hypoxemic respiratory failure (Acute) CHF (congestive heart failure) (Acute) Pneumonia (Acute) Acute hypoxic respiratory failure (Acute) Acute bilateral COVID-19 pneumonia (Acute) Abnormal cardiac enzyme level (Resolved) Anticoagulated on Coumadin (Resolved) 1. Acute hypoxic respiratory failure secondary to acute on chronic diastolic CHF/bilateral COVID-19 pneumonia with possible chronic interstitial lung disease -He was recently admitted and discharged on November 12, 2020 with Covid. He presented a few days after discharge with hypoxia on his 4 L nasal cannula. -His leukocytosis was likely reactive to the Decadron which he had completed, and he remains afebrile -We will continue with Lasix, echo with an EF of 55% with moderately enlarged left atrium and right atrium as well as an RVSP of 45 mmHg -Continue with Lasix p.o. 60 mg twice daily, renal function stable -Continue with breathing treatments, appreciate pulmonology assistance. Will obtain CT of his chest for further evaluation of his pulmonary status -Evaluated by PT/OT for possible placement given his prolonged hospitalization 2. Acute on chronic diastolic CHF/paroxysmal A. fib/CAD status post stents/HTN/HLD -Blood pressure stable -Increase his Lasix to 60 mg p.o. twice daily, creatinine is back to baseline -Continue with his home blood pressure medications -We will hold his Coumadin secondary to elevated INR, Plavix, Lipitor 3. Hypothyroidism -Stable -Continue with Synthroid 4. Chronic iron deficiency anemia -Transfuse 1 unit on 11/17/2020 -Monitor CBC, currently down to 7.1, will check a fecal occult, and transfuse another unit -In May his iron concentration was 36 with a normal ferritin DVT: Supratherapeutic INR Inpatient E&M: [id number] Subs Hosp L2
--- NOTE | 2020-11-22 18:17 | NURSING ---
Called RT to come see pt, O2 dipping to 87% on Airvo 60L 75%. IS preformed, encouraged pt to breathe through nose. Offered to assist pt back to bed and place on bipap, pt doesn't want to at this moment. Malcom RT advised this RN that he will come see pt.
[2020-11-22] MEDS: Atorvastatin Calcium 20 MG Tablet PO (23:36)
[2020-11-23] VITALS (30 sets, daily range): BP systolic 121–187; BP diastolic 48–136; PULSE 75–95; RESP 12–32; TEMP 36.1–36.8; O2SAT 88–97
[2020-11-23] MEDS: Ipratropium/Albuterol Sulfate 3 ML AMPUL.NEB INHALATION ×6 (03:05→23:03)
[2020-11-23 06:40] LABS: Prothrombin Time (Protime)PT. 38.7 SECONDS (11.7-14.9)
[2020-11-23 08:13] LABS: Anion Gap 4 (5-15); BUN 48 mg/dL (7-18); BUN/Creat Ratio 33.8 RATIO (10-20); Calcium,Total 8.3 mg/dL (8.5-10.1); Chloride 108 mmol/L (98-107); Creatinine, Serum 1.42 mg/dL (0.70-1.30); EST Glomerular Filtration Rate 51 mL/min (>60); Est Glom Filt Rate - Afr Amer 62 mL/min (>60); Glucose 77 mg/dL (74-106); Potassium 3.7 mmol/L (3.5-5.1); Sodium Level 145 mmol/L (136-145)
[2020-11-23 08:48] LABS: BNP,B-Type NATRIURETIC PEPTIDE 317.2 pg/mL (0-100)
--- NOTE | 2020-11-23 09:36 | CASEMGMT ---
Addendum entered by Siobhan Merrill 11/23/20 12:52: [facility] is now on airvo again. Initially, pt declined to go to [facility] but now is in agreement but his is not and the son states he will speak with her tonight. Pt/son do not want referral sent to [facility] yet at this time until is in agreement. Son to f/u with this RN WENDY tomorrow. CM to follow. Ana Paula HORNER CM Original Note: Call from [place] at [facility] and she states they will look at referral today. She states no beds available until end of week and they will let RN CM know if they will accept pt and put on list. Ana Paula HORNER CM
--- NOTE | 2020-11-23 10:29 | PN_ITS ---
Patient Problems: Active and Suspected Problems (Last Reviewed 11/14/20 @ 14:[address] Elo Parham, DO) Acute hypoxemic respiratory failure (Acute) CHF (congestive heart failure) (Acute) Pneumonia (Acute) Acute bilateral COVID-19 pneumonia (Acute) Reason for Visit: Acute hypoxic respiratory failure Subjective: The patient is a 80-year-old gentleman with recent admission for COVID-19 pneumonia from 11/02/2020 to 11/12/2020 who presented to the emergency department on 11/14/2020 with worsening hypoxemia and shortness of breath Objective: GENERAL: Dyspneic at rest HEENT: Atraumatic; EYES; Anicteric, Normal Conjunctiva NECK; supple, normal thyroid, RESPIRATORY: Diminished to auscultation CARDIOVASCULAR: Regular S1 S2, GI: soft, normoactive bowel sounds, : No Renal angle tenderness; EXTREMITIES: edema, no clubbing, MUSCULOSKELETAL: no muscle waisting NEURO: Awake; no lateralizing signs. SKIN: No Rash PSYCH; Flat affect Vitals/I&O's: Vital Signs Temp Pulse Resp BP Pulse Ox 98.2 F 87 26 H 139/62 H 92 11/23/20 08:00 11/23/20 08:08 11/23/20 08:00 11/23/20 08:00 11/23/20 08:00 Oxygen Flow Rate (L/min) 60 Oxygen Delivery Method Airvo Weight: 59 kg Body Mass Index (BMI) 24.9 Intake and Output for Last 24 Hours 11/21/20 11/22/20 11/23/20 23:59 23:59 23:59 Intake Total 110 / 110 1160 / 1160 Output Total 950 / 950 800 / 800 Balance -840 / -840 360 / 360 Microbiology Past 72 Hours 11/22/20 10:20 Stool Stool Occult Blood (SLIME) - Final Occult Blood Positive Laboratory Results 11/17/20 10:10: Crossmatch See Detail 11/22/20 12:07: Blood Type AB POSITIVE, Antibody Screen NEGATIVE, Crossmatch See Detail 11/23/20 05:50: PT 38.7 H, INR 4.0 H* 11/23/20 05:50: Sodium 145, Potassium 3.7, Chloride 108 H, Carbon Dioxide 33.0 H , Anion Gap 4 L, BUN 48 H, Creatinine 1.42 H, Estim Creat Clear Calc 31.20, Est GFR (MDRD) Af Amer 62, Est GFR (MDRD) Non-Af 51 L, BUN/Creatinine Ratio 33.8 H, Glucose 77, Calcium 8.3 L 11/23/20 05:55: B-Natriuretic Peptide 317.2 H Current Medications Acetaminophen (Acetaminophen 325 Mg Tablet) 650 mg PO Q6H PRN PRN PRN Reason: Pain Score 1-10/Temp > 100.7 F Last Admin: 11/22/20 09:14 Dose: 650 mg Documented by: Albuterol Sulfate (Albuterol 2.5 Mg/3 Ml Vial.Neb.) 2.5 mg INHALATION Q2H PRN PRN PRN Reason: SOB/Wheezing Albuterol/Ipratropium (Ipratropium/Albuterol Sulfate 3 Ml Ampul.Neb) 3 ml INHALATION Q4H.RT [facility] Last Admin: 11/23/20 07:40 Dose: 3 ml Documented by: Amiodarone HCl (Amiodarone 200 Mg Tablet) 200 mg PO DAILY [facility] Last Admin: 11/22/20 09:17 Dose: 200 mg Documented by: Atorvastatin Calcium (Atorvastatin Calcium 20 Mg Tablet) 20 mg PO QHS [facility] Last Admin: 11/22/20 23:36 Dose: 20 mg Documented by: Calamine/Phenol (Menthol/Lanolin/Calamine/Znox 113 Gm Tube) 1 applic TOPICAL 0600,2200 [facility]; Protocol Last Admin: 11/23/20 06:23 Dose: Not Given Documented by: Calcium Carbonate (Calcium Carbonate 500 Mg Tablet) 500 mg PO Q6H PRN PRN PRN Reason: HEARTBURN Carvedilol (Carvedilol 25 Mg Tablet) 25 mg PO BID [facility] Last Admin: 11/22/20 23:36 Dose: 25 mg Documented by: Clopidogrel Bisulfate (Clopidogrel Bisulfate 75 Mg Tablet) 75 mg PO DAILY [facility] Last Admin: 11/22/20 09:17 Dose: 75 mg Documented by: Folic Acid (Folic Acid 1 Mg Tablet) 1 mg PO DAILY [facility] Last Admin: 11/22/20 09:17 Dose: 1 mg Documented by: Furosemide (Furosemide 20 Mg Tablet) 60 mg PO BID@1000,1800 [facility] Last Admin: 11/22/20 17:32 Dose: 60 mg Documented by: Guaifenesin (Guaifenesin 10 Ml Udc (200mg/10ml)) 10 ml PO Q4H PRN PRN PRN Reason: COUGH Sodium Chloride () 250 mls @ 15 mls/hr IV .[id number] PRN PRN Reason: Saline Flush Last Infusion: 11/20/20 18:51 Dose: Infused Documented by: Levothyroxine Sodium (Levothyroxine 150 Mcg Tablet) 150 mcg PO DAILY [facility] Last Admin: 11/22/20 09:17 Dose: 150 mcg Documented by: Melatonin (Melatonin 3 Mg Tablet) 3 mg PO QHS PRN PRN PRN Reason: INSOMNIA Nitroglycerin (Nitroglycerin (Inpatient Use) 0.4 Mg Tab.Subl) 0.4 mg SUBLINGUAL Q5M PRN PRN Reason: CARDIAC/CHEST PAIN Ondansetron HCl (Ondansetron 4 Mg/2 Ml Vial) 4 mg IV Q8H PRN PRN PRN Reason: NAUSEA/VOMITING Polysaccharide Iron Complex (Iron Polysaccharide Complex 150 Mg Capsule) 150 mg PO DAILY [facility] Last Admin: 11/22/20 09:17 Dose: 150 mg Documented by: Ramipril (Ramipril 5 Mg Capsule) 5 mg PO DAILY [facility] Last Admin: 11/22/20 09:17 Dose: 5 mg Documented by: Senna/Docusate Sodium (Senna/Docusate Sodium 1 Tablet) 2 tablet PO BID PRN PRN PRN Reason: Constipation Sodium Chloride (0.9% Saline Lock 10 Ml Syringe) 10 - 40 ml IV UD PRN PRN Reason: SALINE FLUSH Last Admin: 11/20/20 03:23 Dose: 10 ml Documented by: STROKE Vital Signs/Narrative: Vital Signs Temp Pulse Resp BP Pulse Ox 11/23/20 08:08 87 11/23/20 08:00 98.2 F 95 26 H 139/62 H 92 11/23/20 07:45 93 18 96 11/23/20 07:40 93 18 96 Medical Necessity - Tobacco Use Smoking Status: Former smoker Assessment/Plan All Active Problems (Last Reviewed 11/14/20 @ 14:[address] Elo Parham DO) Acute hypoxemic respiratory failure (Acute) CHF (congestive heart failure) (Acute) Pneumonia (Acute) Acute hypoxic respiratory failure (Acute) Acute bilateral COVID-19 pneumonia (Acute) Abnormal cardiac enzyme level (Resolved) Anticoagulated on Coumadin (Resolved) The patient is a 80-year-old gentleman with recent admission for COVID-19 pneumonia from 11/02/2020 to 11/12/2020 who presented to the emergency department on 11/14/2020 with worsening hypoxemia and shortness of breath 1. Acute hypoxic respiratory failure Due to combination of recent COVID-19 pneumonia and decompensated CHF. Admitted to monitored bed currently being managed with supplemental oxygen via Airvo 2. Recent COVID-19 pneumonia ?Patient was on admission 11/02/2020 to 11/12/2020 who presented to the emergency department on 11/14/2020 with worsening hypoxemia and shortness of breath 3. Acute congestive heart failure with preserved ejection fraction ?Patient has been managed with diuretics 4. Paroxysmal atrial fibrillation ?Rate controlled patient is on systemic anticoagulation with Coumadin INR elevated Coumadin on hold 5. Hypertension ~ blood pressure controlled, home medications continued with dose adjustment as needed 6. Dyslipidemia -patient is on statin therapy, continued at home dose 7. Chronic kidney disease stage III ?Kidney function at baseline 6. Coronary artery disease ?Stable 7. 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 Hypothyroidism - Patient is on levothyroxine home dose continued 9. Anemia - Secondary to chronic disorder monitoring H&H and transfuse if patient becomes symptomatic or hemoglobin falls below 7 10. DVT prophylaxis ?On Coumadin no need for additional measures Inpatient E&M: [id number] [facility] L3
[2020-11-23] MEDS: Folic Acid 1 MG Tablet PO (10:33)
[2020-11-23] MEDS: Clopidogrel Bisulfate 75 MG Tablet PO (10:33)
[2020-11-23] MEDS: Amiodarone 200 MG Tablet PO (10:33)
[2020-11-23] MEDS: Iron Polysaccharide Complex 150 MG CAPSULE PO (10:33)
[2020-11-23] MEDS: Levothyroxine 150 MCG Tablet PO (10:33)
[2020-11-23] MEDS: Furosemide 20 MG Tablet 60 MG PO ×2 (10:33→18:06)
[2020-11-23] MEDS: Ramipril 5 MG Capsule PO (10:33)
[2020-11-23] MEDS: Carvedilol 25 MG Tablet PO ×2 (10:33→22:03)
--- NOTE | 2020-11-23 12:06 | PN_ITS ---
Patient Problems: Active and Suspected Problems (Last Reviewed 11/14/20 @ 14:[address] Elo Parham, DO) Acute hypoxemic respiratory failure (Acute) CHF (congestive heart failure) (Acute) Pneumonia (Acute) Acute bilateral COVID-19 pneumonia (Acute) Subjective: The patient was seen and examined at the bedside this morning. Events from the last 24 hours have been reviewed. The patient is currently afebrile, hemodynamically stable and maintaining appropriate oxygen saturations on Airvo heated high flow. INR is elevated this morning at 4.0. Creatinine has increased to 1.42. Objective: The patient's most recent lab work, culture data and imaging studies have all been personally reviewed. Stool for occult blood was positive on November 22. Surface echocardiogram revealed normal LV size with an ejection fraction of 55%. Right ventricular systolic pressure was estimated to be 45 mmHg. CTA chest showed no evidence for pulmonary embolism. There was note of a moderate sized hiatal hernia along with diffuse groundglass opacities bilaterally and moderate bilateral pleural effusions with associated atelectasis. - Physical Exam Vitals/I&O's: Vital Signs Temp Pulse Resp BP Pulse Ox 97.1 F L 76 18 121/49 H 95 11/23/20 10:00 11/23/20 11:50 11/23/20 11:50 11/23/20 10:00 11/23/20 11:50 Oxygen Flow Rate (L/min) 60 Oxygen Delivery Method Airvo Weight: 130 lb 1.164 oz Body Mass Index (BMI) 24.9 Intake and Output for Last 24 Hours 11/21/20 11/22/20 11/23/20 23:59 23:59 23:59 Intake Total 110 / 110 1160 / 1160 Output Total 950 / 950 800 / 800 250 / 250 Balance -840 / -840 360 / 360 -250 / -250 General: Alert, Cooperative HEENT: Atraumatic, PERRLA, Normocephalic Oral: No Gingival or Mucosal Lesions/ Ulcerations Neck: Supple, No Nodes, Trachea Midline Lungs: Diminished, Rales Cardiovascular: Regular rate, Regular Rhythm Abdomen: Bowel Sounds Present, Soft, Non Tender Extremities: No clubbing, No cyanosis, Edema Skin: No breakdown Musculoskeletal: No Tenderness to Palpation of Joints or Extremities Lymphatic: No Cervical, Supraclavicular, or Inguinal Adenopathy Neurological: Neuro grossly intact Psych/Mental Status: Normal Affect, Appropriate Labs (Last 48 Hours) 11/17/20 11/22/20 11/22/20 10:10 06:05 06:05 WBC 10.2 RBC 2.54 L Hgb 7.1 L Hct 23.6 L MCV 92.9 MCH 28.0 MCHC 30.1 L RDW Std Deviation 57.1 H RDW Coeff of Ej 16.6 H Plt Count 143 L MPV 10.2 Immature Gran % (Auto) 1.100 H Neut % (Auto) 89.4 H Lymph % (Auto) 4.4 L [place] % (Auto) 4.0 Eos % (Auto) 0.9 Baso % (Auto) 0.2 Absolute Neuts (auto) 9.1 H Absolute Lymphs (auto) 0.45 L Nucleated RBC % 0 Hypochromasia 1+ PT 37.7 H INR 3.9 H* Sodium Potassium Chloride Carbon Dioxide Anion Gap BUN Creatinine Estim Creat Clear Calc Est GFR (MDRD) Af Amer Est GFR (MDRD) Non-Af BUN/Creatinine Ratio Glucose Calcium B-Natriuretic Peptide Blood Type Antibody Screen Crossmatch See Detail 11/22/20 11/22/20 11/23/20 06:05 12:07 05:50 WBC RBC Hgb Hct MCV MCH MCHC RDW Std Deviation RDW Coeff of Ej Plt Count MPV Immature Gran % (Auto) Neut % (Auto) Lymph % (Auto) [place] % (Auto) Eos % (Auto) Baso % (Auto) Absolute Neuts (auto) Absolute Lymphs (auto) Nucleated RBC % Hypochromasia PT 38.7 H INR 4.0 H* Sodium 145 Potassium 3.6 Chloride 107 Carbon Dioxide 31.0 Anion Gap 7 BUN 46 H Creatinine 1.26 Estim Creat Clear Calc 35.17 Est GFR (MDRD) Af Amer 71 Est GFR (MDRD) Non-Af 59 L BUN/Creatinine Ratio 36.5 H Glucose 94 Calcium 8.0 L B-Natriuretic Peptide Blood Type AB POSITIVE Antibody Screen NEGATIVE Crossmatch See Detail 11/23/20 11/23/20 05:50 05:55 WBC RBC Hgb Hct MCV MCH MCHC RDW Std Deviation RDW Coeff of Ej Plt Count MPV Immature Gran % (Auto) Neut % (Auto) Lymph % (Auto) [place] % (Auto) Eos % (Auto) Baso % (Auto) Absolute Neuts (auto) Absolute Lymphs (auto) Nucleated RBC % Hypochromasia PT INR Sodium 145 Potassium 3.7 Chloride 108 H Carbon Dioxide 33.0 H Anion Gap 4 L BUN 48 H Creatinine 1.42 H Estim Creat Clear Calc 31.20 Est GFR (MDRD) Af Amer 62 Est GFR (MDRD) Non-Af 51 L BUN/Creatinine Ratio 33.8 H Glucose 77 Calcium 8.3 L B-Natriuretic Peptide 317.2 H Blood Type Antibody Screen Crossmatch Microbiology 11/22/20 10:20 Stool Stool Occult Blood (SLIME) - Final Occult Blood Positive Clinical Impression(s) from Imaging Studies Chest X-Ray 11/14/20 10:35 IMPRESSION: No change in severe congestive heart failure. Electronically Signed: Caleb Hinds MD at 11:15 EST Tel , Service support , Chest CTA 11/14/20 11:14 IMPRESSION: 1. No CT evidence of pulmonary embolism. 2. Bilateral pneumonia, pulmonary edema, or ARDS. 3. Moderate bilateral pleural effusions. Electronically Signed: Caleb Hinds MD at 12:24 EST Tel , Service support , Chest X-Ray 11/15/20 05:55 IMPRESSION: No change in bilateral pneumonia. Electronically Signed: Caleb Hinds MD at 7:22 EST Tel , Service support , Chest X-Ray 11/20/20 05:40 IMPRESSION: Progressive infiltration in both lungs worse in the peripheral aspect of the left hemithorax. Electronically Signed: Milan Cao MD at 8:03 EST , Service support , Chest CTA 11/22/20 08:15 IMPRESSION: 1. No CT evidence of pulmonary embolism. 2. Worsening bilateral pneumonia, pulmonary edema, or ARDS. 3. No change in moderate bilateral pleural effusions with bibasilar atelectasis. Electronically Signed: Caleb Hinds MD at 9:41 EST Tel , Service support , Current Medications Acetaminophen (Acetaminophen 325 Mg Tablet) 650 mg PO Q6H PRN PRN PRN Reason: Pain Score 1-10/Temp > 100.7 F Last Admin: 11/22/20 09:14 Dose: 650 mg Documented by: Albuterol Sulfate (Albuterol 2.5 Mg/3 Ml Vial.Neb.) 2.5 mg INHALATION Q2H PRN PRN PRN Reason: SOB/Wheezing Albuterol/Ipratropium (Ipratropium/Albuterol Sulfate 3 Ml Ampul.Neb) 3 ml INHALATION Q4H.RT [facility] Last Admin: 11/23/20 11:50 Dose: 3 ml Documented by: Amiodarone HCl (Amiodarone 200 Mg Tablet) 200 mg PO DAILY [facility] Last Admin: 11/23/20 10:33 Dose: 200 mg Documented by: Atorvastatin Calcium (Atorvastatin Calcium 20 Mg Tablet) 20 mg PO QHS [facility] Last Admin: 11/22/20 23:36 Dose: 20 mg Documented by: Calamine/Phenol (Menthol/Lanolin/Calamine/Znox 113 Gm Tube) 1 applic TOPICAL 0600,2200 [facility]; Protocol Last Admin: 11/23/20 06:23 Dose: Not Given Documented by: Calcium Carbonate (Calcium Carbonate 500 Mg Tablet) 500 mg PO Q6H PRN PRN PRN Reason: HEARTBURN Carvedilol (Carvedilol 25 Mg Tablet) 25 mg PO BID [facility] Last Admin: 11/23/20 10:33 Dose: 25 mg Documented by: Clopidogrel Bisulfate (Clopidogrel Bisulfate 75 Mg Tablet) 75 mg PO DAILY [facility] Last Admin: 11/23/20 10:33 Dose: 75 mg Documented by: Folic Acid (Folic Acid 1 Mg Tablet) 1 mg PO DAILY [facility] Last Admin: 11/23/20 10:33 Dose: 1 mg Documented by: Furosemide (Furosemide 20 Mg Tablet) 60 mg PO BID@1000,1800 [facility] Last Admin: 11/23/20 10:33 Dose: 60 mg Documented by: Guaifenesin (Guaifenesin 10 Ml Udc (200mg/10ml)) 10 ml PO Q4H PRN PRN PRN Reason: COUGH Sodium Chloride () 250 mls @ 15 mls/hr IV .[id number] PRN PRN Reason: Saline Flush Last Infusion: 11/20/20 18:51 Dose: Infused Documented by: Levothyroxine Sodium (Levothyroxine 150 Mcg Tablet) 150 mcg PO DAILY [facility] Last Admin: 11/23/20 10:33 Dose: 150 mcg Documented by: Melatonin (Melatonin 3 Mg Tablet) 3 mg PO QHS PRN PRN PRN Reason: INSOMNIA Nitroglycerin (Nitroglycerin (Inpatient Use) 0.4 Mg Tab.Subl) 0.4 mg SUBLINGUAL Q5M PRN PRN Reason: CARDIAC/CHEST PAIN Ondansetron HCl (Ondansetron 4 Mg/2 Ml Vial) 4 mg IV Q8H PRN PRN PRN Reason: NAUSEA/VOMITING Polysaccharide Iron Complex (Iron Polysaccharide Complex 150 Mg Capsule) 150 mg PO DAILY [facility] Last Admin: 11/23/20 10:33 Dose: 150 mg Documented by: Ramipril (Ramipril 5 Mg Capsule) 5 mg PO DAILY [facility] Last Admin: 11/23/20 10:33 Dose: 5 mg Documented by: Senna/Docusate Sodium (Senna/Docusate Sodium 1 Tablet) 2 tablet PO BID PRN PRN PRN Reason: Constipation Sodium Chloride (0.9% Saline Lock 10 Ml Syringe) 10 - 40 ml IV UD PRN PRN Reason: SALINE FLUSH Last Admin: 11/20/20 03:23 Dose: 10 ml Documented by: Medical Necessity - Tobacco Use Smoking Status: Former smoker Assessment/Plan All Active Problems (Last Reviewed 11/14/20 @ 14:[address] Elo Parham DO) Acute hypoxemic respiratory failure (Acute) CHF (congestive heart failure) (Acute) Pneumonia (Acute) Acute hypoxic respiratory failure (Acute) Acute bilateral COVID-19 pneumonia (Acute) Abnormal cardiac enzyme level (Resolved) Anticoagulated on Coumadin (Resolved) RECOMMENDATIONS: 1. Continue to wean FiO2 to maintain oxygen saturations at or above 90%. 2. Continue diuretic therapy as tolerated by hemodynamics and renal function. 3. Monitor H&H daily. Transfuse if hemoglobin drops below 7 g/dL. 4. Hold Coumadin, given elevated INR. 5. Encourage incentive spirometer use and mobilize patient as tolerated. IMPRESSIONS: 1. Acute hypoxic respiratory failure The patient was recently admitted to the hospital with respiratory failure secondary to COVID-19 pneumonia and was only home for approximately 2 days prior to returning to the hospital with worsening shortness of breath and hypoxemia. The patient's CTA showed no evidence for PE and looked similar in appearance when compared to prior imaging studies from his last hospitalization, with the exception of some increased groundglass and pleural effusions. The patient was admitted to the hospital and placed on BiPAP and scheduled IV diuretic therapy. I am concerned that the patient likely has some underlying, baseline chronic lung disease as well. He continues to require a high amount of supplemental oxygen, despite diuretic therapy. For now, I plan to continue Lasix as tolerated by hemodynamics and renal function. 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 2. Chronic diastolic CHF/history of ascending aortic dissection status post repair/paroxysmal A. fib/hypertensive urgency The patient presented to the hospital with what appeared to be a CHF exa cerbation. He has responded appropriately to noninvasive positive pressure ventilatory support and diuretic therapy. The patient is currently a patient of Dr. Jones, but is not scheduled to follow-up with him until December. I would recommend that cardiology be consulted while the patient is admitted to the hospital. 3. CKD stage III/chronic anemia/hypothyroidism/advanced age Complicates care, management, recovery and prognosis. Continue home medications as indicated. This note was generated with [employer] dictation software. It may contain incorrect words, spelling, and punctuation that were not noted in checking the note before signing. Inpatient E&M: [id number] [facility] L3
--- NOTE | 2020-11-23 14:16 | CHAPLAIN ---
Type of Pastoral Visit ___ Initial Visit _x__ Follow-up Visit ___ On-call Visit ___ General Patient Visit ___ Spiritual Assessment ___ Family Conference ___ Bereavement ___ Rapid Response ___ Code Blue ___ Other (describe below) Pastoral Care Referral From _x__ Patient ___ Family ___ Nurse ___ Physician ___ Resident Services Coordinator ___ Patient Services Rep ___ Other (describe below) Sacrament/Intervention _x__ Active listening ___ Anointing ___ Judaism ___ Bereavement ___ Communion ___ Trupti exploration ___ ___ Life review _x__ Prayer ___ Reconciliation ___ Sacrament of Sick _x__ Supportive presence ___ Wedding _x__ Other (describe below) scripture readings, presence Pastoral Comments
[2020-11-23] MEDS: Atorvastatin Calcium 20 MG Tablet PO (22:03)
[2020-11-23] MEDS: Menthol/Lanolin/Calamine/Znox 113 GM Tube 1 APPLIC TOPICAL (22:03)
[2020-11-24] VITALS (56 sets, daily range): BP systolic 75–165; BP diastolic 33–75; PULSE 59–87; RESP 12–33; TEMP 35.7–36.6; O2SAT 70–932
[2020-11-24 05:26] LABS: Prothrombin Time (Protime)PT. 34.5 SECONDS (11.7-14.9)
[2020-11-24 05:35] LABS: International Normalized Ratio 3.5
[2020-11-24] MEDS: Menthol/Lanolin/Calamine/Znox 113 GM Tube 1 APPLIC TOPICAL (05:56)
--- NOTE | 2020-11-24 06:21 | PCM.PN.PUL ---
Patient Problems: Active and Suspected Problems (Last Reviewed 11/14/20 @ 14:[address] Elo Parham, DO) Acute hypoxemic respiratory failure (Acute) CHF (congestive heart failure) (Acute) Pneumonia (Acute) Acute bilateral COVID-19 pneumonia (Acute) Subjective: The patient was seen and examined at the bedside this morning. Events from the last 24 hours have been reviewed. The patient is currently afebrile, hemodynamically stable and maintaining appropriate oxygen saturations on BiPAP with an FiO2 requirement of 75%. The patient is currently documented to be overall net -5.8 L for the hospital admission. He does report the presence of shortness of breath and cough this morning. Objective: The patient's most recent lab work, culture data and imaging studies have all been personally reviewed. Stool for occult blood was positive on November 22. Surface echocardiogram revealed normal LV size with an ejection fraction of 55%. Right ventricular systolic pressure was estimated to be 45 mmHg. CTA chest showed no evidence for pulmonary embolism. There was note of a moderate sized hiatal hernia along with diffuse groundglass opacities bilaterally and moderate bilateral pleural effusions with associated atelectasis. - Physical Exam Vitals/I&O's: Vital Signs Temp Pulse Resp BP Pulse Ox 97.4 F L 81 32 H 127/62 H 91 11/24/20 05:30 11/24/20 05:30 11/24/20 05:30 11/24/20 05:30 11/24/20 05:30 Oxygen Flow Rate (L/min) 60 Oxygen Delivery Method Bi-pap Weight: 130 lb 1.164 oz Body Mass Index (BMI) 24.9 Intake and Output for Last 24 Hours 11/22/20 11/23/20 11/24/20 23:59 23:59 23:59 Intake Total 1160 / 1160 50 / 50 Output Total 800 / 800 700 / 700 150 / 150 Balance 360 / 360 -650 / -650 -150 / -150 General: - - Ill and fatigued in appearance. BiPAP currently in place with notable air leak. HEENT: Atraumatic, PERRLA, Normocephalic Oral: Dry Mucosa Neck: Supple, No Nodes, Trachea Midline Lungs: Diminished, Short of Breath, Tachypneic Cardiovascular: Regular rate, Regular Rhythm Abdomen: Bowel Sounds Present, Soft, Non Tender Extremities: No clubbing, No cyanosis, Edema Skin: No breakdown Musculoskeletal: No Tenderness to Palpation of Joints or Extremities Lymphatic: No Cervical, Supraclavicular, or Inguinal Adenopathy Neurological: - - No focal neurological deficits. Psych/Mental Status: Flat Affect Labs (Last 48 Hours) 11/17/20 11/22/20 11/22/20 10:10 06:05 06:05 WBC 10.2 RBC 2.54 L Hgb 7.1 L Hct 23.6 L MCV 92.9 MCH 28.0 MCHC 30.1 L RDW Std Deviation 57.1 H RDW Coeff of Ej 16.6 H Plt Count 143 L MPV 10.2 Immature Gran % (Auto) 1.100 H Neut % (Auto) 89.4 H Lymph % (Auto) 4.4 L [place] % (Auto) 4.0 Eos % (Auto) 0.9 Baso % (Auto) 0.2 Absolute Neuts (auto) 9.1 H Absolute Lymphs (auto) 0.45 L Nucleated RBC % 0 Hypochromasia 1+ PT 37.7 H INR 3.9 H* Sodium Potassium Chloride Carbon Dioxide Anion Gap BUN Creatinine Estim Creat Clear Calc Est GFR (MDRD) Af Amer Est GFR (MDRD) Non-Af BUN/Creatinine Ratio Glucose Calcium B-Natriuretic Peptide Blood Type Antibody Screen Crossmatch See Detail 11/22/20 11/22/20 11/23/20 06:05 12:07 05:50 WBC RBC Hgb Hct MCV MCH MCHC RDW Std Deviation RDW Coeff of Ej Plt Count MPV Immature Gran % (Auto) Neut % (Auto) Lymph % (Auto) [place] % (Auto) Eos % (Auto) Baso % (Auto) Absolute Neuts (auto) Absolute Lymphs (auto) Nucleated RBC % Hypochromasia PT 38.7 H INR 4.0 H* Sodium 145 Potassium 3.6 Chloride 107 Carbon Dioxide 31.0 Anion Gap 7 BUN 46 H Creatinine 1.26 Estim Creat Clear Calc 35.17 Est GFR (MDRD) Af Amer 71 Est GFR (MDRD) Non-Af 59 L BUN/Creatinine Ratio 36.5 H Glucose 94 Calcium 8.0 L B-Natriuretic Peptide Blood Type AB POSITIVE Antibody Screen NEGATIVE Crossmatch See Detail 11/23/20 11/23/20 11/24/20 05:50 05:55 05:04 WBC RBC Hgb Hct MCV MCH MCHC RDW Std Deviation RDW Coeff of Ej Plt Count MPV Immature Gran % (Auto) Neut % (Auto) Lymph % (Auto) [place] % (Auto) Eos % (Auto) Baso % (Auto) Absolute Neuts (auto) Absolute Lymphs (auto) Nucleated RBC % Hypochromasia PT 34.5 H INR 3.5 H* Sodium 145 Potassium 3.7 Chloride 108 H Carbon Dioxide 33.0 H Anion Gap 4 L BUN 48 H Creatinine 1.42 H Estim Creat Clear Calc 31.20 Est GFR (MDRD) Af Amer 62 Est GFR (MDRD) Non-Af 51 L BUN/Creatinine Ratio 33.8 H Glucose 77 Calcium 8.3 L B-Natriuretic Peptide 317.2 H Blood Type Antibody Screen Crossmatch Microbiology 11/22/20 10:20 Stool Stool Occult Blood (SLIME) - Final Occult Blood Positive Clinical Impression(s) from Imaging Studies Chest X-Ray 11/14/20 10:35 IMPRESSION: No change in severe congestive heart failure. Electronically Signed: Caleb Hinds MD at 11:15 EST Tel , Service support , Chest CTA 11/14/20 11:14 IMPRESSION: 1. No CT evidence of pulmonary embolism. 2. Bilateral pneumonia, pulmonary edema, or ARDS. 3. Moderate bilateral pleural effusions. Electronically Signed: Caleb Hinds MD at 12:24 EST Tel , Service support , Chest X-Ray 11/15/20 05:55 IMPRESSION: No change in bilateral pneumonia. Electronically Signed: Caleb Hinds MD at 7:22 EST Tel , Service support , Chest X-Ray 11/20/20 05:40 IMPRESSION: Progressive infiltration in both lungs worse in the peripheral aspect of the left hemithorax. Electronically Signed: Milan Cao MD at 8:03 EST , Service support , Chest CTA 11/22/20 08:15 IMPRESSION: 1. No CT evidence of pulmonary embolism. 2. Worsening bilateral pneumonia, pulmonary edema, or ARDS. 3. No change in moderate bilateral pleural effusions with bibasilar atelectasis. Electronically Signed: Caleb Hinds MD at 9:41 EST Tel , Service support , Current Medications Acetaminophen (Acetaminophen 325 Mg Tablet) 650 mg PO Q6H PRN PRN PRN Reason: Pain Score 1-10/Temp > 100.7 F Last Admin: 11/22/20 09:14 Dose: 650 mg Documented by: Albuterol Sulfate (Albuterol 2.5 Mg/3 Ml Vial.Neb.) 2.5 mg INHALATION Q2H PRN PRN PRN Reason: SOB/Wheezing Albuterol/Ipratropium (Ipratropium/Albuterol Sulfate 3 Ml Ampul.Neb) 3 ml INHALATION Q4H.RT [facility] Last Admin: 11/23/20 23:03 Dose: 3 ml Documented by: Amiodarone HCl (Amiodarone 200 Mg Tablet) 200 mg PO DAILY [facility] Last Admin: 11/23/20 10:33 Dose: 200 mg Documented by: Atorvastatin Calcium (Atorvastatin Calcium 20 Mg Tablet) 20 mg PO QHS [facility] Last Admin: 11/23/20 22:03 Dose: 20 mg Documented by: Calamine/Phenol (Menthol/Lanolin/Calamine/Znox 113 Gm Tube) 1 applic TOPICAL 0600,2200 [facility]; Protocol Last Admin: 11/24/20 05:56 Dose: 1 applicatio Documented by: Calcium Carbonate (Calcium Carbonate 500 Mg Tablet) 500 mg PO Q6H PRN PRN PRN Reason: HEARTBURN Carvedilol (Carvedilol 25 Mg Tablet) 25 mg PO BID [facility] Last Admin: 11/23/20 22:03 Dose: 25 mg Documented by: Clopidogrel Bisulfate (Clopidogrel Bisulfate 75 Mg Tablet) 75 mg PO DAILY [facility] Last Admin: 11/23/20 10:33 Dose: 75 mg Documented by: Folic Acid (Folic Acid 1 Mg Tablet) 1 mg PO DAILY [facility] Last Admin: 11/23/20 10:33 Dose: 1 mg Documented by: Furosemide (Furosemide 20 Mg Tablet) 60 mg PO BID@1000,1800 [facility] Last Admin: 11/23/20 18:06 Dose: 60 mg Documented by: Guaifenesin (Guaifenesin 10 Ml Udc (200mg/10ml)) 10 ml PO Q4H PRN PRN PRN Reason: COUGH Sodium Chloride () 250 mls @ 15 mls/hr IV .[id number] PRN PRN Reason: Saline Flush Last Infusion: 11/20/20 18:51 Dose: Infused Documented by: Levothyroxine Sodium (Levothyroxine 150 Mcg Tablet) 150 mcg PO DAILY [facility] Last Admin: 11/23/20 10:33 Dose: 150 mcg Documented by: Melatonin (Melatonin 3 Mg Tablet) 3 mg PO QHS PRN PRN PRN Reason: INSOMNIA Nitroglycerin (Nitroglycerin (Inpatient Use) 0.4 Mg Tab.Subl) 0.4 mg SUBLINGUAL Q5M PRN PRN Reason: CARDIAC/CHEST PAIN Ondansetron HCl (Ondansetron 4 Mg/2 Ml Vial) 4 mg IV Q8H PRN PRN PRN Reason: NAUSEA/VOMITING Polysaccharide Iron Complex (Iron Polysaccharide Complex 150 Mg Capsule) 150 mg PO DAILY [facility] Last Admin: 11/23/20 10:33 Dose: 150 mg Documented by: Ramipril (Ramipril 5 Mg Capsule) 5 mg PO DAILY [facility] Last Admin: 11/23/20 10:33 Dose: 5 mg Documented by: Senna/Docusate Sodium (Senna/Docusate Sodium 1 Tablet) 2 tablet PO BID PRN PRN PRN Reason: Constipation Sodium Chloride (0.9% Saline Lock 10 Ml Syringe) 10 - 40 ml IV UD PRN PRN Reason: SALINE FLUSH Last Admin: 11/20/20 03:23 Dose: 10 ml Documented by: Medical Necessity - Tobacco Use Smoking Status: Former smoker Assessment/Plan All Active Problems (Last Reviewed 11/14/20 @ 14:[address] Elo Parham DO) Acute hypoxemic respiratory failure (Acute) CHF (congestive heart failure) (Acute) Pneumonia (Acute) Acute hypoxic respiratory failure (Acute) Acute bilateral COVID-19 pneumonia (Acute) Abnormal cardiac enzyme level (Resolved) Anticoagulated on Coumadin (Resolved) RECOMMENDATIONS: 1. Continue to wean FiO2 to maintain oxygen saturations at or above 90%. 2. Continue diuretic therapy as tolerated by hemodynamics and renal function. 3. Monitor H&H daily. Transfuse if hemoglobin drops below 7 g/dL. 4. Hold Coumadin, given elevated INR. 5. Encourage incentive spirometer use and mobilize patient as tolerated. 6. Stop amiodarone. 7. Start IV steroids 40 mg every 6 hours. 8. Check ABG. IMPRESSIONS: 1. Acute hypoxic respiratory failure The patient was recently admitted to the hospital with respiratory failure secondary to COVID-19 pneumonia and was only home for approximately 2 days prior to returning to the hospital with worsening shortness of breath and hypoxemia. The patient's CTA showed no evidence for PE and looked similar in appearance when compared to prior imaging studies from his last hospitalization, with the exception of some increased groundglass and pleural effusions. The patient was admitted to the hospital and placed on BiPAP and scheduled IV diuretic therapy. I am concerned that the patient likely has some underlying, baseline chronic lung disease as well. He continues to require a high amount of supplemental oxygen, despite diuretic therapy. For now, I plan to continue Lasix as tolerated by hemodynamics and renal function. 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 Although highly unlikely, the patient is currently on amiodarone at a low dose daily. Over concerns for potential pulmonary toxicity, the patient's amiodarone will be discontinued and he will also be placed on steroids, should a component of the patient's underlying lung disease represent a steroid responsive interstitial lung process. 2. Chronic diastolic CHF/history of ascending aortic dissection status post repair/paroxysmal A. fib/hypertensive urgency The patient presented to the hospital with what appeared to be a CHF exacerbation. Although the patient was treated with diuretics and maintained on noninvasive positive pressure ventilatory support, his oxygen status remains quite tenuous. Continue management as noted above. 3. CKD stage III/chronic anemia/hypothyroidism/advanced age Complicates care, management, recovery and prognosis. Continue home medications as indicated. This note was generated with [employer] software. It may contain incorrect words, spelling, and punctuation that were not noted in checking the note before signing. Inpatient E&M: [id number] [facility] L3
[2020-11-24 06:36] LABS: Absolute Lymphocyte Count 0.54 X10^3/uL (0.83-4.51); Absolute Neutrophil Count 8.8 X10^3/uL (2.0-7.7); Basophil# 0.04 X10^3/uL; Basophil% 0.4 % (0-1); Eosinophil# 0.02 X10^3/uL; Eosinophils% 0.2 % (0-5); Hematocrit 31.6 % (40-54); Hemoglobin 9.4 g/dL (13.0-16.5); Lymphocyte # 0.54 X10^3/ul (4.0); Lymphocyte % 5.4 % (19-41); Mean Corp Hgb Conc 29.7 g/dL (32-36); Mean Corpuscular Hgb 28.3 pg (27.0-32.0); Mean Corpuscular Volume 95.2 fL (80-94); Monocyte# 0.44 X10^3/uL; Monocyte% 4.4 % (0-10); NRBC Flagged by Analyzer 0 % (0-5); Neutrophil # 8.84 X10^3/uL (2.7-7.7); POSITIVE DIFFERENTIAL YES; Platelet Count 135 K/mm3 (150-450); RBC Distribution Width CV 16.6 % (11.6-14.6); RBC Distribution Width SD 57.7 fl (35.1-43.9); Red Blood Count 3.32 M/mm3 (4.6-6.2); White Blood Count 9.9 K/mm3 (4.4-11.0)
[2020-11-24 06:39] LABS: Differential Indicated SCAN CRITERIA MET
[2020-11-24 06:52] LABS: Anion Gap 8 (5-15); BUN 59 mg/dL (7-18); BUN/Creat Ratio 40.1 RATIO (10-20); Calcium,Total 8.2 mg/dL (8.5-10.1); Chloride 108 mmol/L (98-107); Creatinine, Serum 1.47 mg/dL (0.70-1.30); EST Glomerular Filtration Rate 49 mL/min (>60); Est Glom Filt Rate - Afr Amer 59 mL/min (>60); Estimated Creatinine Clearance 30.14 ml/min; Glucose 96 mg/dL (74-106); Potassium 4.2 mmol/L (3.5-5.1); Rheumatoid Factor < 10.0 IU/mL (<15); Sodium Level 144 mmol/L (136-145)
[2020-11-24] MEDS: Ipratropium/Albuterol Sulfate 3 ML AMPUL.NEB INHALATION ×5 (06:53→22:36)
--- NOTE | 2020-11-24 07:53 | PN_ITS ---
Patient Problems: Active and Suspected Problems (Last Reviewed 11/14/20 @ 14:[address] Elo Parham, DO) Acute hypoxemic respiratory failure (Acute) CHF (congestive heart failure) (Acute) Pneumonia (Acute) Acute bilateral COVID-19 pneumonia (Acute) Reason for Visit: Acute hypoxic respiratory failure Subjective: The patient is a 80-year-old gentleman with recent admission for COVID-19 pneumonia from 11/02/2020 to 11/12/2020 who presented to the emergency department on 11/14/2020 with worsening hypoxemia and shortness of breath -11/24/2020: Patient respiratory status deteriorated resulting in patient being placed on BiPAP. Patient was found to be more lethargic than usual. Held discussion with patient's as well as son regarding patient's condition they both wanted patient to remain full code. Case was further discussed with Dr. Sparrow with intensive care decision was made to transfer patient where patient was intubated. Objective: GENERAL: Dyspneic at rest on BiPAP HEENT: Atraumatic; EYES; Anicteric, Normal Conjunctiva NECK; supple, normal thyroid, RESPIRATORY: Diminished to auscultation CARDIOVASCULAR: Regular S1 S2, GI: soft, normoactive bowel sounds, : No Renal angle tenderness; EXTREMITIES: edema, no clubbing, MUSCULOSKELETAL: no muscle waisting NEURO: Awake; no lateralizing signs. SKIN: No Rash PSYCH; barely responsive Vitals/I&O's: Vital Signs Temp Pulse Resp BP Pulse Ox 97.4 F L 74 32 H 127/62 H 92 11/24/20 05:30 11/24/20 07:10 11/24/20 05:30 11/24/20 05:30 11/24/20 07:00 Oxygen Flow Rate (L/min) 60 Oxygen Delivery Method Bi-pap Weight: 59 kg Body Mass Index (BMI) 24.9 Intake and Output for Last 24 Hours 11/22/20 11/23/20 11/24/20 23:59 23:59 23:59 Intake Total 1160 / 1160 50 / 50 Output Total 800 / 800 700 / 700 150 / 150 Balance 360 / 360 -650 / -650 -150 / -150 Microbiology Past 72 Hours 11/22/20 10:20 Stool Stool Occult Blood (SLIME) - Final Occult Blood Positive Laboratory Results 11/23/20 05:50: Sodium 145, Potassium 3.7, Chloride 108 H, Carbon Dioxide 33.0 H , Anion Gap 4 L, BUN 48 H, Creatinine 1.42 H, Estim Creat Clear Calc 31.20, Est GFR (MDRD) Af Amer 62, Est GFR (MDRD) Non-Af 51 L, BUN/Creatinine Ratio 33.8 H, Glucose 77, Calcium 8.3 L 11/23/20 05:55: B-Natriuretic Peptide 317.2 H 11/24/20 05:04: PT 34.5 H, INR 3.5 H* 11/24/20 05:04: WBC 9.9, RBC 3.32 L, Hgb 9.4 L, Hct 31.6 L, MCV 95.2 H, MCH 28.3, MCHC 29.7 L, RDW Std Deviation 57.7 H, RDW Coeff of Ej 16.6 H, Plt Count 135 L, MPV 11.0, Immature Gran % (Auto) 0.600, Neut % (Auto) 89.0 H, Lymph % (Auto) 5.4 L, Levy % (Auto) 4.4, Eos % (Auto) 0.2, Baso % (Auto) 0.4, Absolute Neuts (auto) 8.8 H, Absolute Lymphs (auto) 0.54 L, Nucleated RBC % 0 11/24/20 05:04: Sodium 144, Potassium 4.2, Chloride 108 H, Carbon Dioxide 28.0, Anion Gap 8, BUN 59 H, Creatinine 1.47 H, Estim Creat Clear Calc 30.14, Est GFR (MDRD) Af Amer 59 L, Est GFR (MDRD) Non-Af 49 L, BUN/Creatinine Ratio 40.1 H, Glucose 96, Calcium 8.2 L, Rheumatoid Factor < 10.0 11/24/20 05:30: DANA Screen Pending, BERTHA-1 Antibody Pending, SS-A/Ro IgG Antibody Pending, SS-B/La IgG Antibody Pending, Sm ([place]rum) Antibody Pending, WORK[employer] COMPENSATION MANAGER Antibody Pending, Scl-70 Scleroderma Ab Pending, Double Strand DNA Ab Pending, Centromere B Antibody Pending Current Medications Acetaminophen (Acetaminophen 325 Mg Tablet) 650 mg PO Q6H PRN PRN PRN Reason: Pain Score 1-10/Temp > 100.7 F Last Admin: 11/22/20 09:14 Dose: 650 mg Documented by: Albuterol Sulfate (Albuterol 2.5 Mg/3 Ml Vial.Neb.) 2.5 mg INHALATION Q2H PRN PRN PRN Reason: SOB/Wheezing Albuterol/Ipratropium (Ipratropium/Albuterol Sulfate 3 Ml Ampul.Neb) 3 ml INHALATION Q4H.RT [facility] Last Admin: 11/24/20 06:53 Dose: 3 ml Documented by: Atorvastatin Calcium (Atorvastatin Calcium 20 Mg Tablet) 20 mg PO QHS [facility] Last Admin: 11/23/20 22:03 Dose: 20 mg Documented by: Calamine/Phenol (Menthol/Lanolin/Calamine/Znox 113 Gm Tube) 1 applic TOPICAL 0600,2200 [facility]; Protocol Last Admin: 11/24/20 05:56 Dose: 1 applicatio Documented by: Calcium Carbonate (Calcium Carbonate 500 Mg Tablet) 500 mg PO Q6H PRN PRN PRN Reason: HEARTBURN Carvedilol (Carvedilol 25 Mg Tablet) 25 mg PO BID [facility] Last Admin: 11/23/20 22:03 Dose: 25 mg Documented by: Clopidogrel Bisulfate (Clopidogrel Bisulfate 75 Mg Tablet) 75 mg PO DAILY [facility] Last Admin: 11/23/20 10:33 Dose: 75 mg Documented by: Folic Acid (Folic Acid 1 Mg Tablet) 1 mg PO DAILY [facility] Last Admin: 11/23/20 10:33 Dose: 1 mg Documented by: Furosemide (Furosemide 20 Mg Tablet) 60 mg PO BID@1000,1800 [facility] Last Admin: 11/23/20 18:06 Dose: 60 mg Documented by: Guaifenesin (Guaifenesin 10 Ml Udc (200mg/10ml)) 10 ml PO Q4H PRN PRN PRN Reason: COUGH Sodium Chloride () 250 mls @ 15 mls/hr IV .[id number] PRN PRN Reason: Saline Flush Last Infusion: 11/20/20 18:51 Dose: Infused Documented by: Levothyroxine Sodium (Levothyroxine 150 Mcg Tablet) 150 mcg PO DAILY [facility] Last Admin: 11/23/20 10:33 Dose: 150 mcg Documented by: Melatonin (Melatonin 3 Mg Tablet) 3 mg PO QHS PRN PRN PRN Reason: INSOMNIA Methylprednisolone (Methylprednisolone 40 Mg/Ml Vial) 40 mg IV Q6 [facility] Nitroglycerin (Nitroglycerin (Inpatient Use) 0.4 Mg Tab.Subl) 0.4 mg SUBLINGUAL Q5M PRN PRN Reason: CARDIAC/CHEST PAIN Ondansetron HCl (Ondansetron 4 Mg/2 Ml Vial) 4 mg IV Q8H PRN PRN PRN Reason: NAUSEA/VOMITING Polysaccharide Iron Complex (Iron Polysaccharide Complex 150 Mg Capsule) 150 mg PO DAILY [facility] Last Admin: 11/23/20 10:33 Dose: 150 mg Documented by: Ramipril (Ramipril 5 Mg Capsule) 5 mg PO DAILY [facility] Last Admin: 11/23/20 10:33 Dose: 5 mg Documented by: Senna/Docusate Sodium (Senna/Docusate Sodium 1 Tablet) 2 tablet PO BID PRN PRN PRN Reason: Constipation Sodium Chloride (0.9% Saline Lock 10 Ml Syringe) 10 - 40 ml IV UD PRN PRN Reason: SALINE FLUSH Last Admin: 11/20/20 03:23 Dose: 10 ml Documented by: STROKE Vital Signs/Narrative: Vital Signs Temp Pulse Resp BP Pulse Ox 11/24/20 07:10 74 11/24/20 07:00 92 11/24/20 05:30 97.4 F L 81 32 H 127/62 H 91 Medical Necessity - Tobacco Use Smoking Status: Former smoker Assessment/Plan All Active Problems (Last Reviewed 11/14/20 @ 14:[address] Elo Parham, DO) Acute hypoxemic respiratory failure (Acute) CHF (congestive heart failure) (Acute) Pneumonia (Acute) Acute hypoxic respiratory failure (Acute) Acute bilateral COVID-19 pneumonia (Acute) Abnormal cardiac enzyme level (Resolved) Anticoagulated on Coumadin (Resolved) The patient is a 80-year-old gentleman with recent admission for COVID-19 pneumonia from 11/02/2020 to 11/12/2020 who presented to the emergency department on 11/14/2020 with worsening hypoxemia and shortness of breath 1. Acute hypoxic respiratory failure Due to combination of recent COVID-19 pneumonia and decompensated CHF. Admitted to monitored bed currently being managed with supplemental oxygen via [employer] --11/24/2020: Patient respiratory status deteriorated resulting in patient being placed on BiPAP. Patient was found to be more lethargic than usual. Held discussion with patient's as well as son regarding patient's condition they both wanted patient to remain full code. Case was further discussed with Dr. Sparrow with intensive care decision was made to transfer patient where patient was intubated. 2. Acute respiratory acidosis ?Due to a combination of decompensated respiratory failure, suspected pulmonary fibrosis and recent COVID-19 pneumonia. Patient respiratory status deteriorated resulting in patient being intubated 3. Recent COVID-19 pneumonia ?Patient was on admission 11/02/2020 to 11/12/2020 who presented to the emergency department on 11/14/2020 with worsening hypoxemia and shortness of breath 4. Acute congestive heart failure with preserved ejection fraction ?Patient has been managed with diuretics 5. Paroxysmal atrial fibrillation ?Rate controlled patient is on systemic anticoagulation with Coumadin INR elevated Coumadin on hold 6. Dyslipidemia -patient is on statin therapy, continued at home dose 7. Chronic kidney disease stage III ?Kidney function at baseline 6. Coronary artery disease ?Stable 7. 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 Hypothyroidism - Patient is on levothyroxine home dose continued 9. Anemia - Secondary to chronic disorder monitoring H&H and transfuse if patient becomes symptomatic or hemoglobin falls below 7 10. DVT prophylaxis ?On Coumadin no need for additional measures 11. Hypertension - Blood pressure controlled, home medications continued with dose adjustment as needed Advance planning; did discuss with the patient's family regarding patient current condition which appears to be deteriorating very fast. Brought up discussions regarding advanced directives as well as CODE STATUS. Did explain the various scenarios involved ( FULL CODE, DNR CCA, DNR CCA with no intubation, and DNR CC and what each meant) patient's family elected for patient elected to be DNR CCA no intubation. Order was placed. Time spent on discussion 35 minutes. Inpatient E&M: 80789 [facility] Procedures: 68141 Advncd Care Plan 30 Min Multi Select Codes - Hospitalists' Procedures Procedures: 14813 Advncd Care Plan 30 Min
[2020-11-24 09:36] LABS: Allen Test Positive; Base Excess 4 mmol/L (-2 to +2); Bicarbonate 32.6 mmol/L (22-26); Blood Gas Specimen Type ART; O2 Delivery Device HFNC; PO2 127 mmHG (75-100); SITE L Radial; SO2 98 % (95-99); Total Carbon Dioxide 35 mmol/L; pCO2 87.3 mmHg (35-45); pH 7.18 (7.35-7.45)
[2020-11-24] MEDS: Etomidate 20 MG/10 ML Vial IV (09:47)
--- NOTE | 2020-11-24 09:50 | NURSING ---
0945-Dr. Sparrow, RT, RNs at bedside preparing to intubate. Multiple attempts at 2nd IV line but unsuccessful 0947-20mg Etomidate given by Dr. Sparrow 0948- Intubated x1 attempt by Dr. Sparrow, #7.5ETT, 23 at lip, + color change, b/l breath sounds 1000-Ravindra at bedside preparing for central line insertion.
--- NOTE | 2020-11-24 10:06 | RAD_ITS ---
STUDY: X-RAY CHEST REASON FOR EXAM: Male, 80 years old. RESPIRATORY FAILURE, CENTRAL LINE, ETT AND OG PLACEMENT TECHNIQUE: Single AP portable view of the chest. COMPARISON: Comparison is made with prior study dated 11/20/2020. FINDINGS: An endotracheal tube has been placed. The tip is at 4.3 cm proximal to the chrissy. An orogastric tube is seen. The tip is in the body of the stomach. A right-sided central line has been placed. The tip is at the junction of the superior vena cava and right atrium. Persistent bilateral pulmonary infiltrate with dense infiltration in the lateral aspect of the left upper lobe. There is been mild degree of improvement as compared to prior study. Possible superimposed vascular congestion. Normal size heart. Normal mediastinum and jamal. Normal visualized pulmonary arteries. There is atherosclerotic calcification of the aortic arch with tortuosity. Normal visualized thoracic spine. Normal visualized ribs, clavicles, and shoulders. There is no demonstrated abnormality of the visualized soft tissue structures of the upper abdomen. RAD/Chest 1 View (Portable) IMPRESSION: The tip of the endotracheal tube is at 4.3 cm proximal to the chrissy. The tip of the orogastric tube is in the body of the stomach. Improved aeration of both lungs with residual infiltrates in both lungs. I suspect mild degree of superimposed CHF. Electronically Signed: Milan Cao MD at 10:51 EST , Service support ,
--- NOTE | 2020-11-24 10:21 | PCM.OPRPT ---
Report of Operation Date of Procedure: 11/24/20 Surgery/Procedure Performed:: Triple-lumen catheter insertion Description of Surgical Findings:: Central line placement procedure note Indication: IV access/hemodynamic instability/vasoactive medications Procedure: A time-out was completed to verify correct patient, indication, medication allergies, procedure, coagulation studies, informed consent signed, and equipment needed. The patient was placed in the supine position for a central line placement to the Right IJ vein. The patients Right neck was prepped using chlorhexidine and a full body sterile drape was applied. 1% lidocaine was used to anesthetize the surrounding skin. A 7fr 16 cm blue guard triple lumen catheter introduced into the internal jugular vein using the modified Seldinger technique with the assistance of ultrasound. The catheter was threaded smoothly over the guidewire, the guidewire was removed easily, nonpulsatile blood returned. All ports were aspirated of air and flushed with sterile saline. The catheter was sutured in place and covered with an occlusive dressing impregnated with chlorhexidine. Post-procedure: The patient tolerated the procedure well. Vital signs remained stable. EBL 3 cc. No complications. Chest X Ray ordered to confirm tip placement and the absence of pneumothorax. Procedures: 58717 Insert Non-tunnel CV Cath
[2020-11-24] MEDS: 0.9% Normal Saline 1,000 ML 999 ML IV (10:30)
[2020-11-24] MEDS: Propofol 10MG/Ml 1,000 MG/100 ML Bottle 3.5 MG CONT INF (11:15)
[2020-11-24 11:36] LABS: CPK Total, Creatine Kinase 43 U/L (39-308); Triglycerides 131 mg/dL
[2020-11-24 11:45] LABS: Allen Test Positive; Base Excess 4 mmol/L (-2 to +2); Bicarbonate 31.6 mmol/L (22-26); Blood Gas Specimen Type ART; FI02 70; Mode AC; O2 Delivery Device Adult Vent; PEEP 5; PO2 97 mmHG (75-100); RR 14; SITE L Brach; SO2 95 % (95-99); Total Carbon Dioxide 34 mmol/L; Vt 450; pCO2 78.8 mmHg (35-45); pH 7.21 (7.35-7.45)
[2020-11-24 11:53] LABS: Lactic Acid 1.1 mmol/L (0.4-1.9)
--- NOTE | 2020-11-24 12:10 | NURSING ---
unable to restrain right wrist because pt does not have a right hand. physician aware.
--- NOTE | 2020-11-24 12:12 | CPS ---
Critical ABG values verified times two.Hand delivered results to .Verified by read back.
--- NOTE | 2020-11-24 12:26 | PCM.RX.CS ---
Consult Pharmacy has been consulted to manage selected antiobiotic: Vancomycin Type of Consult: New start Labs: Sodium 144 mmol/L (136-145) 11/24/20 05:04 Potassium 4.2 mmol/L (3.5-5.1) 11/24/20 05:04 Chloride 108 mmol/L (98-107) H 11/24/20 05:04 Carbon Dioxide 28.0 mmol/L (21.0-32.0) 11/24/20 05:04 Anion Gap 8 (5-15) 11/24/20 05:04 BUN 59 mg/dL (7-18) H 11/24/20 05:04 Creatinine 1.47 mg/dL (0.70-1.30) H 11/24/20 05:04 Est GFR (MDRD) Af Amer 59 mL/min (>60) L 11/24/20 05:04 Est GFR (MDRD) Non-Af 49 mL/min (>60) L 11/24/20 05:04 BUN/Creatinine Ratio 40.1 RATIO (10-20) H 11/24/20 05:04 Glucose 96 mg/dL (74-106) 11/24/20 05:04 Vancomycin Trough 5.0 ug/mL (5.0-15.0) 11/16/20 16:21 Microbiology: Microbiology 11/24/20 10:50 Urine Catheter - Mcdowell Legionella Antigen - Final 11/24/20 10:50 Urine Catheter - Mcdowell Streptococcus pneumoniae Antigen (M - Final 11/22/20 10:20 Stool Stool Occult Blood (SLIME) - Final Occult Blood Positive 11/14/20 11:05 Blood Culture (Wb) - Left Forearm Blood Culture - Final No growth in 5 days. 11/14/20 10:25 Blood Culture (Wb) - Anticubital Right Blood Culture - Final No growth in 5 days. 11/14/20 16:10 Mucosa - Nose Respiratory Panel (PCR) - Final 11/14/20 16:05 Urine, Clean Catch Legionella Antigen - Final 11/14/20 16:05 Urine, Clean Catch Streptococcus pneumoniae Antigen (M - Final Weight used for dosin kg Estimated Creatinine Clearance: 30 ML/MIN Goal Trough: 15-20 mcg/mL Pharmacy Plan for Drug Dosing: Give initial loading dose of 1500mg IV x1, then continue with 750mg IV q24h. Will check a trough before the 3rd overall dose. Pharmacy Service will continue to monitor and adjust dosing as required. Follow-Up Labs: Trough Vancomycin Labs to be done on [date and time ordered]: 11/26/20 11:30
[2020-11-24 14:31] LABS: Bedside Glucose 115 mg/dL (70-110)
[2020-11-24 14:39] LABS: M R Staph aureus DNA By PCR Negative (Negative); Probe Check PASS; Specimen Processing Control PASS
--- NOTE | 2020-11-24 16:00 | CHAPLAIN ---
Type of Pastoral Visit ___ Initial Visit ___ Follow-up Visit ___ On-call Visit ___ General Patient Visit ___ Spiritual Assessment ___ Family Conference ___ Bereavement ___ Rapid Response ___ Code Blue _x__ Other (describe below) Pastoral Care Referral From ___ Patient _x__ Family ___ Nurse ___ Physician ___ [employer] ___ Health Policy Analyst ___ Other (describe below) Sacrament/Intervention ___ Active listening _x__ Anointing ___ Tenriism ___ Bereavement ___ Communion ___ Trupti exploration ___ ___ Life review _x__ Prayer ___ Reconciliation ___ Sacrament of Sick _x__ Supportive presence ___ Wedding ___ Other (describe below) Pastoral Comments notified that family has requested anointing of the sick for the patient by Father Alexsander of [employer]; contact made with editor city and arranged to meet him and join him for anointing service; staff also assisted and facilitated that family could watch and listen by zoom meeting; support and facilitation of family's wishes were accomplished
--- NOTE | 2020-11-24 17:23 | CPS ---
Critical values on ABG were noted and given to Dr. Sparrow by Student RT Lilo Bush
[2020-11-24 19:00] LABS: Bedside Glucose 104 mg/dL (70-110)
[2020-11-24] MEDS: Atorvastatin Calcium 20 MG Tablet GT (23:19)
[2020-11-24] MEDS: Chlorhexidine 15 ML PO (23:19)
[2020-11-25] VITALS (39 sets, daily range): BP systolic 97–144; BP diastolic 45–69; PULSE 76–120; RESP 14–24; TEMP 36.3–37.2; O2SAT 89–98; BMI 24.6
[2020-11-25] MEDS: Propofol 10MG/Ml 1,000 MG/100 ML Bottle 5.3 MG CONT INF (00:01)
[2020-11-25] MEDS: Menthol/Lanolin/Calamine/Znox 113 GM Tube 1 APPLIC TOPICAL ×3 (00:02→21:31)
[2020-11-25 00:35] LABS: Bedside Glucose 126 mg/dL (70-110)
--- NOTE | 2020-11-25 06:16 | PN_ITS ---
Subjective: The patient was seen and examined at the bedside this morning. Events from the last 24 hours have been reviewed. The patient is currently afebrile, hemodynamically stable and maintaining appropriate oxygen saturations on assist control mode of mechanical ventilation with an FiO2 requirement of 45%. The patient did well overnight from a nursing perspective. He was actually placed on a spontaneous awakening/breathing trial this morning and did fairly well. The patient was able to be weaned off of Levophed completely overnight. He is now alert and following commands. The patient is currently documented to be overall net -4.5 L for the hospital admission. Creatinine has increased to 1.93 this morning. Objective: The patient's most recent lab work, culture data and imaging studies have all been personally reviewed. Stool for occult blood was positive on November 22. Surface echocardiogram revealed normal LV size with an ejection fraction of 55%. Right ventricular systolic pressure was estimated to be 45 mmHg. CTA chest showed no evidence for pulmonary embolism. There was note of a moderate sized hiatal hernia along with diffuse groundglass opacities bilaterally and moderate bilateral pleural effusions with associated atelectasis. General: - - The patient is now intubated, sedated and mechanically ventilated. No ventilator dyssynchrony noted. HEENT: Atraumatic, PERRLA, Normocephalic Oral: No Gingival or Mucosal Lesions/ Ulcerations, - - Endotracheal and OG tubes in place Neck: Supple, No Nodes, Trachea Midline, - - Right IJ triple-lumen catheter in place Lungs: No rhonchi, No wheeze, No rales, Diminished Cardiovascular: Regular rate, Regular Rhythm, Normal S1, Normal S2, Murmur Abdomen: Bowel Sounds Present, Soft, Non Tender Extremities: No clubbing, No cyanosis, - - Bilateral lower extremity pedal edema Skin: No breakdown Musculoskeletal: No Tenderness to Palpation of Joints or Extremities Lymphatic: No Cervical, Supraclavicular, or Inguinal Adenopathy Neurological: - - No focal neurological deficits. Currently sedated on the ventilator with a RASS of -1. Vital Signs Temp Pulse Resp BP Pulse Ox 98.1 F 86 24 H 142/54 H 93 11/25/20 04:00 11/25/20 05:15 11/25/20 05:15 11/25/20 05:00 11/25/20 05:15 Oxygen Flow Rate (L/min) 60 Oxygen Delivery Method Mechanical Ventilator Weight: 130 lb 4.8 oz Body Mass Index (BMI) 24.9 Intake and Output for Last 24 Hours 11/23/20 11/24/20 11/25/20 23:59 23:59 23:59 Intake Total 50 / 50 1900.79 / 1920.49 134.40 / 134.40 Output Total 700 / 700 700 / 700 200 / 200 Balance -650 / -650 1200.79 / 1220.49 -65.60 / -65.60 Labs (Last 48 Hours) 11/23/20 11/23/20 11/23/20 05:50 05:50 05:55 WBC RBC Hgb Hct MCV MCH MCHC RDW Std Deviation RDW Coeff of Ej Plt Count MPV Immature Gran % (Auto) Neut % (Auto) Lymph % (Auto) [place] % (Auto) Eos % (Auto) Baso % (Auto) Absolute Neuts (auto) Absolute Lymphs (auto) Nucleated RBC % PT 38.7 H INR 4.0 H* Specimen Type Sample Site pH Bicarbonate Actual Total CO2 Base Excess O2 Saturation O2 % ABG pCO2 ABG pO2 Ramon Test Respiration Rate O2 Delivery Device Vent Mode Tidal Volume POC PEEP Sodium 145 Potassium 3.7 Chloride 108 H Carbon Dioxide 33.0 H Anion Gap 4 L BUN 48 H Creatinine 1.42 H Estim Creat Clear Calc 31.20 Est GFR (MDRD) Af Amer 62 Est GFR (MDRD) Non-Af 51 L BUN/Creatinine Ratio 33.8 H Glucose 77 Lactic Acid Calcium 8.3 L Total Creatine Kinase Troponin I B-Natriuretic Peptide 317.2 H Triglycerides Rheumatoid Factor DANA Screen BERTHA-1 Antibody SS-A/Ro IgG Antibody SS-B/La IgG Antibody Sm ([place]) Antibody BEH[employer]ER Antibody Scl-70 Scleroderma Ab Double Strand DNA Ab Centromere B Antibody MRSA (PCR) POC Glucose 11/24/20 11/24/20 11/24/20 05:04 05:04 05:04 WBC 9.9 RBC 3.32 L Hgb 9.4 L Hct 31.6 L MCV 95.2 H MCH 28.3 MCHC 29.7 L RDW Std Deviation 57.7 H RDW Coeff of Ej 16.6 H Plt Count 135 L MPV 11.0 Immature Gran % (Auto) 0.600 Neut % (Auto) 89.0 H Lymph % (Auto) 5.4 L [place] % (Auto) 4.4 Eos % (Auto) 0.2 Baso % (Auto) 0.4 Absolute Neuts (auto) 8.8 H Absolute Lymphs (auto) 0.54 L Nucleated RBC % 0 PT 34.5 H INR 3.5 H* Specimen Type Sample Site pH Bicarbonate Actual Total CO2 Base Excess O2 Saturation O2 % ABG pCO2 ABG pO2 Ramon Test Respiration Rate O2 Delivery Device Vent Mode Tidal Volume POC PEEP Sodium 144 Potassium 4.2 Chloride 108 H Carbon Dioxide 28.0 Anion Gap 8 BUN 59 H Creatinine 1.47 H Estim Creat Clear Calc 30.14 Est GFR (MDRD) Af Amer 59 L Est GFR (MDRD) Non-Af 49 L BUN/Creatinine Ratio 40.1 H Glucose 96 Lactic Acid Calcium 8.2 L Total Creatine Kinase Troponin I B-Natriuretic Peptide Triglycerides Rheumatoid Factor < 10.0 DANA Screen BERTHA-1 Antibody SS-A/Ro IgG Antibody SS-B/La IgG Antibody Sm ([place]) Antibody BEH[employer] WORKER Antibody Scl-70 Scleroderma Ab Double Strand DNA Ab Centromere B Antibody MRSA (PCR) POC Glucose 11/24/20 11/24/20 11/24/20 05:04 05:30 09:29 WBC RBC Hgb Hct MCV MCH MCHC RDW Std Deviation RDW Coeff of Ej Plt Count MPV Immature Gran % (Auto) Neut % (Auto) Lymph % (Auto) [place] % (Auto) Eos % (Auto) Baso % (Auto) Absolute Neuts (auto) Absolute Lymphs (auto) Nucleated RBC % PT INR Specimen Type ART Sample Site L Radial pH 7.18 L* Bicarbonate Actual 32.6 H Total CO2 35 Base Excess 4 H O2 Saturation 98 O2 % ABG pCO2 87.3 H* ABG pO2 127 H Ramon Test Positive Respiration Rate O2 Delivery Device HFNC Vent Mode Tidal Volume POC PEEP Sodium Potassium Chloride Carbon Dioxide Anion Gap BUN Creatinine Estim Creat Clear Calc Est GFR (MDRD) Af Amer Est GFR (MDRD) Non-Af BUN/Creatinine Ratio Glucose Lactic Acid Calcium Total Creatine Kinase 43 Troponin I B-Natriuretic Peptide Triglycerides 131 Rheumatoid Factor DANA Screen Pending BERTHA-1 Antibody Pending SS-A/Ro IgG Antibody Pending SS-B/La IgG Antibody Pending Sm ([place]) Antibody Pending BEH[employer] HE[employer] WORKER Antibody Pending Scl-70 Scleroderma Ab Pending Double Strand DNA Ab Pending Centromere B Antibody Pending MRSA (PCR) POC Glucose 11/24/20 11/24/20 11/24/20 10:50 11:10 11:10 WBC RBC Hgb Hct MCV MCH MCHC RDW Std Deviation RDW Coeff of Ej Plt Count MPV Immature Gran % (Auto) Neut % (Auto) Lymph % (Auto) [place] % (Auto) Eos % (Auto) Baso % (Auto) Absolute Neuts (auto) Absolute Lymphs (auto) Nucleated RBC % PT INR Specimen Type Sample Site pH Bicarbonate Actual Total CO2 Base Excess O2 Saturation O2 % ABG pCO2 ABG pO2 Ramon Test Respiration Rate O2 Delivery Device Vent Mode Tidal Volume POC PEEP Sodium Potassium Chloride Carbon Dioxide Anion Gap BUN Creatinine Estim Creat Clear Calc Est GFR (MDRD) Af Amer Est GFR (MDRD) Non-Af BUN/Creatinine Ratio Glucose Lactic Acid 1.1 Calcium Total Creatine Kinase Troponin I 0.022 B-Natriuretic Peptide Triglycerides Rheumatoid Factor DANA Screen BERTHA-1 Antibody SS-A/Ro IgG Antibody SS-B/La IgG Antibody Sm ([place]) Antibody BEH[employer] WORKER Antibody Scl-70 Scleroderma Ab Double Strand DNA Ab Centromere B Antibody MRSA (PCR) Negative POC Glucose 11/24/20 11/24/20 11/24/20 11:37 14:28 18:59 WBC RBC Hgb Hct MCV MCH MCHC RDW Std Deviation RDW Coeff of Ej Plt Count MPV Immature Gran % (Auto) Neut % (Auto) Lymph % (Auto) [place] % (Auto) Eos % (Auto) Baso % (Auto) Absolute Neuts (auto) Absolute Lymphs (auto) Nucleated RBC % PT INR Specimen Type ART Sample Site L Brach pH 7.21 L Bicarbonate Actual 31.6 H Total CO2 34 Base Excess 4 H O2 Saturation 95 O2 % 70 ABG pCO2 78.8 H* ABG pO2 97 Ramon Test Positive Respiration Rate 14 O2 Delivery Device Adult Vent Vent Mode AC Tidal Volume 450 POC PEEP 5 Sodium Potassium Chloride Carbon Dioxide Anion Gap BUN Creatinine Estim Creat Clear Calc Est GFR (MDRD) Af Amer Est GFR (MDRD) Non-Af BUN/Creatinine Ratio Glucose Lactic Acid Calcium Total Creatine Kinase Troponin I B-Natriuretic Peptide Triglycerides Rheumatoid Factor DANA Screen BERTHA-1 Antibody SS-A/Ro IgG Antibody SS-B/La IgG Antibody Sm ([place]) Antibody BEH[employer]IOR[employer] HE[employer] WORKER Antibody Scl-70 Scleroderma Ab Double Strand DNA Ab Centromere B Antibody MRSA (PCR) POC Glucose 115 H 104 11/25/20 00:11 WBC RBC Hgb Hct MCV MCH MCHC RDW Std Deviation RDW Coeff of Ej Plt Count MPV Immature Gran % (Auto) Neut % (Auto) Lymph % (Auto) [place] % (Auto) Eos % (Auto) Baso % (Auto) Absolute Neuts (auto) Absolute Lymphs (auto) Nucleated RBC % PT INR Specimen Type Sample Site pH Bicarbonate Actual Total CO2 Base Excess O2 Saturation O2 % ABG pCO2 ABG pO2 Ramon Test Respiration Rate O2 Delivery Device Vent Mode Tidal Volume POC PEEP Sodium Potassium Chloride Carbon Dioxide Anion Gap BUN Creatinine Estim Creat Clear Calc Est GFR (MDRD) Af Amer Est GFR (MDRD) Non-Af BUN/Creatinine Ratio Glucose Lactic Acid Calcium Total Creatine Kinase Troponin I B-Natriuretic Peptide Triglycerides Rheumatoid Factor DANA Screen BERTHA-1 Antibody SS-A/Ro IgG Antibody SS-B/La IgG Antibody Sm ([place]) Antibody BEH[employer]IOR[employer] HE[employer] WORKER Antibody Scl-70 Scleroderma Ab Double Strand DNA Ab Centromere B Antibody MRSA (PCR) POC Glucose 126 H Microbiology 11/24/20 11:15 Sputum, Induced/Lukens Gram Stain - Final 11/24/20 10:50 Urine Catheter - Mcdowell Legionella Antigen - Final 11/24/20 10:50 Urine Catheter - Mcdowell Streptococcus pneumoniae Antigen (M - Final Clinical Impression(s) from Imaging Studies Chest X-Ray 11/14/20 10:35 IMPRESSION: No change in severe congestive heart failure. Electronically Signed: Caleb Hinds MD at 11:15 EST Tel , Service support , Chest CTA 11/14/20 11:14 IMPRESSION: 1. No CT evidence of pulmonary embolism. 2. Bilateral pneumonia, pulmonary edema, or ARDS. 3. Moderate bilateral pleural effusions. Electronically Signed: Caleb Hinds MD at 12:24 EST Tel , Service support , Chest X-Ray 11/15/20 05:55 IMPRESSION: No change in bilateral pneumonia. Electronically Signed: Caleb Hinds MD at 7:22 EST Tel , Service support , Chest X-Ray 11/20/20 05:40 IMPRESSION: Progressive infiltration in both lungs worse in the peripheral aspect of the left hemithorax. Electronically Signed: Milan Cao MD at 8:03 EST , Service support , Chest CTA 11/22/20 08:15 IMPRESSION: 1. No CT evidence of pulmonary embolism. 2. Worsening bilateral pneumonia, pulmonary edema, or ARDS. 3. No change in moderate bilateral pleural effusions with bibasilar atelectasis. Electronically Signed: Caleb Hinds MD at 9:41 EST Tel , Service support , Chest X-Ray 11/24/20 10:06 IMPRESSION: The tip of the endotracheal tube is at 4.3 cm proximal to the chrissy. The tip of the orogastric tube is in the body of the stomach. Improved aeration of both lungs with residual infiltrates in both lungs. I suspect mild degree of superimposed CHF. Electronically Signed: Milan Cao MD at 10:51 EST , Service support , Medical Necessity - Tobacco Use Smoking Status: Former smoker Assessment/Plan All Active Problems (Last Reviewed 11/14/20 @ 14:[address] Elo Parham, DO) Acute hypoxemic respiratory failure (Acute) CHF (congestive heart failure) (Acute) Pneumonia (Acute) Acute hypoxic respiratory failure (Acute) Acute bilateral COVID-19 pneumonia (Acute) Abnormal cardiac enzyme level (Resolved) Anticoagulated on Coumadin (Resolved) RECOMMENDATIONS: 1. Continue patient on assist control mode of mechanical ventilation. Wean FiO2 to maintain oxygen saturations at or above 90%. 2. Continue empiric antimicrobials, pending infectious work-up. 3. Continue IV steroids. Await results of autoimmune/rheumatologic work-up. 4. Continue to hold diuretics given DIONI. 5. Okay to start tube feeds today from my perspective. 6. Check INR daily. 7. Continue appropriate GI prophylaxis. IMPRESSIONS: 1. Acute hypoxic and hypercarbic respiratory failure The patient was recently admitted to the hospital with respiratory failure secondary to COVID-19 pneumonia and was only home for approximately 2 days prior to returning to the hospital with worsening shortness of breath and hypoxemia. The patient's CTA showed no evidence for PE and looked similar in appearance when compared to prior imaging studies from his last hospitalization, with the exception of some increased groundglass and pleural effusions. The patient was admitted to the hospital and placed on BiPAP and scheduled IV diuretic therapy. I am concerned that the patient likely has some underlying, baseline chronic lung disease as well. Although the patient initially showed some improvement, he later decompensated from a respiratory perspective and required transfer to the ICU and subsequent intubation on November 24. Over concerns for possible postinflammatory pulmonary fibrosis or underlying, chronic steroid responsive interstitial lung process, the patient was started on IV steroids. In addition, over concerns for possible pulmonary toxicity related to amiodarone use, the aforementioned medication was discontinued. The patient will be continued on assist control mode of mechanical ventilation with plans to wean FiO2 to maintain saturations at or above 90%. Empiric antimicrobials will also be continued, pending further culture results. 2. Encephalopathy Improved. [place] to be secondary to acute CO2 narcosis. With invasive mechanical ventilatory support, the patient's acid-base status has improved. We will plan to continue current sedation regimen with a goal to maintain a RASS of -1 to +1. 3. Acute kidney injury Likely prerenal in etiology with a component of ischemic ATN likely, given hemodynamic instability noted yesterday. The patient, did for period of time, require vasopressor support. However, the patient has been weaned from Levophed at this time. We will continue to monitor creatinine and urine output for now. No current indication for renal replacement therapy. Continue to hold diuretics. 4. Chronic diastolic CHF/history of ascending aortic dissection status post repair/paroxysmal A. fib/hypertensive urgency The patient presented to the hospital with what appeared to be a CHF exacerbation. Although the patient was treated with diuretics and maintained on noninvasive positive pressure ventilatory support, his oxygen status remains quite tenuous, only to later require intubation. Diuretics have subsequently been placed on hold due to the development of DIONI. 5. CKD stage III/chronic anemia/hypothyroidism/advanced age Complicates care, management, recovery and prognosis. Continue home medications as indicated. TIME: 37 minutes of critical care time, inclusive of procedures, was spent addressing the patient's acute on chronic respiratory failure, hypercarbic encephalopathy, distributive shock, congestive heart failure, review of all data and collaboration with the care team. ([id number]) [id number] Critical care first hour
--- NOTE | 2020-11-25 06:42 | RAD_ITS ---
STUDY: X-RAY CHEST REASON FOR EXAM: Male, 80 years old. RESPIRATORY FAILURE TECHNIQUE: Single AP portable view of the chest. COMPARISON: Comparison is made with prior study dated 11/24/2020. FINDINGS: An endotracheal tube is seen. The tip is at 4.3 cm proximal to the chrissy. A right-sided internal jugular venous catheters present with the tip at the junction of superior vena cava and right atrium. An orogastric tube is seen in situ. Persistent bilateral airspace disease worse in the left hemithorax. Since prior study, there has been mild degree of improvement. Normal size heart. Normal mediastinum and jamal. Normal visualized pulmonary arteries. Normal visualized aortic arch and descending thoracic aorta. Normal visualized thoracic spine. Normal visualized ribs, clavicles, and shoulders. There is no demonstrated abnormality of the visualized soft tissue structures of the upper abdomen. RAD/Chest 1 View (Portable) IMPRESSION: The support tubes are unchanged. Mild degree of improved aeration of both lungs. Electronically Signed: Milan Cao MD at 9:11 EST , Service support ,
[2020-11-25 06:58] LABS: Absolute Lymphocyte Count 0.39 X10^3/uL (0.83-4.51); Absolute Neutrophil Count 8.8 X10^3/uL (2.0-7.7); Hematocrit 27.6 % (40-54); Hemoglobin 8.3 g/dL (13.0-16.5); Lymphocyte # 0.39 X10^3/ul (4.0); Lymphocyte % 4.1 % (19-41); Mean Corp Hgb Conc 30.1 g/dL (32-36); Mean Corpuscular Hgb 27.9 pg (27.0-32.0); Mean Corpuscular Volume 92.9 fL (80-94); Mean Platelet Vol. 10.1 fl (6.2-12.0); Monocyte# 0.18 X10^3/uL; Monocyte% 1.9 % (0-10); NRBC Flagged by Analyzer 0 % (0-5); Neutrophil # 8.79 X10^3/uL (2.7-7.7); Neutrophil % 92.7 % (47-70); POSITIVE DIFFERENTIAL YES; Platelet Count 175 K/mm3 (150-450); RBC Distribution Width CV 16.3 % (11.6-14.6); RBC Distribution Width SD 55.6 fl (35.1-43.9); Red Blood Count 2.97 M/mm3 (4.6-6.2); White Blood Count 9.5 K/mm3 (4.4-11.0)
[2020-11-25 06:59] LABS: Differential Indicated SCAN CRITERIA MET
[2020-11-25 07:16] LABS: Differential Comment SCANNED; Hypochromasia RARE
[2020-11-25 07:25] LABS: ALB/GLOB Ratio 0.5 RATIO (0.9-2.4); AST(SGOT) 16 U/L (15-37); Alanine Aminotransfer ALT/SGPT 19 U/L (16-61); Albumin, Serum 1.8 g/dL (3.2-5.0); Alkaline Phosphatase 91 U/L (45-117); Anion Gap 6 (5-15); BUN 73 mg/dL (7-18); BUN/Creat Ratio 37.8 RATIO (10-20); Calcium,Total 7.9 mg/dL (8.5-10.1); Chloride 112 mmol/L (98-107); Creatinine, Serum 1.93 mg/dL (0.70-1.30); EST Glomerular Filtration Rate 36 mL/min (>60); Est Glom Filt Rate - Afr Amer 43 mL/min (>60); Estimated Creatinine Clearance 22.96 ml/min; Globulin 3.5 g/dL (2.2-4.2); Glucose 128 mg/dL (74-106); Potassium 4.1 mmol/L (3.5-5.1); Protein, Total 5.3 g/dL (6.4-8.2); Sodium Level 148 mmol/L (136-145)
--- NOTE | 2020-11-25 07:29 | PCM.PN.HOSP ---
Patient Problems: Active and Suspected Problems (Last Reviewed 11/14/20 @ 14:[address] Elo Parham, DO) Acute hypoxemic respiratory failure (Acute) CHF (congestive heart failure) (Acute) Pneumonia (Acute) Acute bilateral COVID-19 pneumonia (Acute) Reason for Visit: Hypoxic respiratory failure Subjective: The patient is a 80-year-old gentleman with recent admission for COVID-19 pneumonia from 11/02/2020 to 11/12/2020 who presented to the emergency department on 11/14/2020 with worsening hypoxemia and shortness of breath -11/24/2020: Patient respiratory status deteriorated resulting in patient being placed on BiPAP. Patient was found to be more lethargic than usual. Held discussion with patient's as well as son regarding patient's condition they both wanted patient to remain full code. Case was further discussed with Dr. Sparrow with intensive care decision was made to transfer patient where patient was intubated. 11/25/2020; patient had to be started on Levophed due to patient being hypotensive. Levophed has since been weaned off. Patient per nursing documentation did well on spontaneous breathing trial. Objective: GENERAL: Patient on the vent but easily arousable HEENT: Atraumatic; EYES; Anicteric, Normal Conjunctiva NECK; supple, normal thyroid, RESPIRATORY: Diminished to auscultation CARDIOVASCULAR: Regular S1 S2, GI: soft, normoactive bowel sounds, : No Renal angle tenderness; EXTREMITIES: edema, no clubbing, MUSCULOSKELETAL: no muscle waisting NEURO: Patient on the vent but easily arousable SKIN: No Rash Vitals/I&O's: Vital Signs Temp Pulse Resp BP Pulse Ox 98.1 F 86 22 H 139/66 H 91 11/25/20 04:00 11/25/20 06:00 11/25/20 06:00 11/25/20 06:00 11/25/20 06:00 Oxygen Flow Rate (L/min) 60 Oxygen Delivery Method Mechanical Ventilator Weight: 59.103 kg Body Mass Index (BMI) 24.9 Intake and Output for Last 24 Hours 11/23/20 11/24/20 11/25/20 23:59 23:59 23:59 Intake Total 50 / 50 1900.79 / 1920.49 140.39 / 140.39 Output Total 700 / 700 700 / 700 200 / 200 Balance -650 / -650 1200.79 / 1220.49 -59.61 / -59.61 Microbiology Past 72 Hours 11/24/20 11:15 Sputum, Induced/Lukens Gram Stain - Final 11/24/20 10:50 Urine Catheter - Mcdowell Legionella Antigen - Final 11/24/20 10:50 Urine Catheter - Mcdowell Streptococcus pneumoniae Antigen (M - Final 11/22/20 10:20 Stool Stool Occult Blood (SLIME) - Final Occult Blood Positive Laboratory Results 11/24/20 05:04: Total Creatine Kinase 43, Triglycerides 131 11/24/20 09:29: Specimen Type ART, Sample Site L Radial, pH 7.18 L*, Bicarbonate Actual 32.6 H, Total CO2 35, Base Excess 4 H, O2 Saturation 98, ABG pCO2 87.3 H*, ABG pO2 127 H, Ramon Test Positive, O2 Delivery Device HFNC 11/24/20 10:50: MRSA (PCR) Negative 11/24/20 11:10: Troponin I 0.022 11/24/20 11:10: Lactic Acid 1.1 11/24/20 11:37: Specimen Type ART, Sample Site L Brach, pH 7.21 L, Bicarbonate Actual 31.6 H, Total CO2 34, Base Excess 4 H, O2 Saturation 95, O2 % 70, ABG pCO2 78.8 H*, ABG pO2 97, Ramon Test Positive, Respiration Rate 14, O2 Delivery Device Adult Vent, Vent Mode AC, Tidal Volume 450, POC PEEP 5 11/24/20 14:28: POC Glucose 115 H 11/24/20 18:59: POC Glucose 104 11/25/20 00:11: POC Glucose 126 H 11/25/20 06:40: Cycl Citrul Peptide IgG Pending, c-ANCA Antibody Pending, p-ANCA Antibody Pending 11/25/20 06:40: WBC 9.5, RBC 2.97 L, Hgb 8.3 L, Hct 27.6 L, MCV 92.9, MCH 27.9, MCHC 30.1 L, RDW Std Deviation 55.6 H, RDW Coeff of Ej 16.3 H, Plt Count 175, MPV 10.1, Immature Gran % (Auto) 1.300 H, Neut % (Auto) 92.7 H, Lymph % (Auto) 4.1 L, Coleman % (Auto) 1.9, Eos % (Auto) 0.0, Baso % (Auto) 0.0, Absolute Neuts (auto) 8.8 H, Absolute Lymphs (auto) 0.39 L, Nucleated RBC % 0, Differential Comment SCANNED, Hypochromasia RARE 11/25/20 06:40: Sodium 148 H, Potassium 4.1, Chloride 112 H, Carbon Dioxide 30.0, Anion Gap 6, BUN 73 H, Creatinine 1.93 H, Estim Creat Clear Calc 22.96, Est GFR (MDRD) Af Amer 43 L, Est GFR (MDRD) Non-Af 36 L, BUN/Creatinine Ratio 37.8 H, Glucose 128 H, Calcium 7.9 L, Total Bilirubin 0.70, AST 16, ALT 19, Alkaline Phosphatase 91, Total Protein 5.3 L, Albumin 1.8 L, Globulin 3.5, Albumin/Globulin Ratio 0.5 L Current Medications Acetaminophen (Acetaminophen 650 Mg/20 Ml Udc) 650 mg GT Q6H PRN PRN PRN Reason: Pain Score 1-10/Temp > 100.7 F Albuterol Sulfate (Albuterol 2.5 Mg/3 Ml Vial.Neb.) 2.5 mg INHALATION Q2H PRN PRN PRN Reason: SOB/Wheezing Albuterol/Ipratropium (Ipratropium/Albuterol Sulfate 3 Ml Ampul.Neb) 3 ml INHALATION Q4H.RT [facility] Last Admin: 11/24/20 22:36 Dose: 3 ml Documented by: Atorvastatin Calcium (Atorvastatin Calcium 20 Mg Tablet) 20 mg GT QHS [facility] Last Admin: 11/24/20 23:19 Dose: 20 mg Documented by: Calamine/Phenol (Menthol/Lanolin/Calamine/Znox 113 Gm Tube) 1 applic TOPICAL 0600,2200 [facility]; Protocol Last Admin: 11/25/20 06:17 Dose: 1 applicatio Documented by: Calcium Carbonate (Calcium Carbonate 500 Mg Tablet) 500 mg GT Q6H PRN PRN PRN Reason: HEARTBURN Chlorhexidine Gluconate (Chlorhexidine 15 Ml) 15 ml PO BID [facility] Last Admin: 11/24/20 23:19 Dose: 15 ml Documented by: Chlorhexidine Gluconate (Chlorhexidine Gluc 2% Cloth 1 Each Towelette) 1 each TOPICAL DAILY [facility] Clopidogrel Bisulfate (Clopidogrel Bisulfate 75 Mg Tablet) 75 mg GT DAILY [facility] Famotidine (Famotidine 20 Mg Tablet) 20 mg GT DAILY [facility] Folic Acid (Folic Acid 1 Mg Tablet) 1 mg GT DAILY [facility] Guaifenesin (Guaifenesin 10 Ml Udc (200mg/10ml)) 10 ml GT Q4H PRN PRN PRN Reason: COUGH Sodium Chloride () 250 mls @ 15 mls/hr IV .[id number] PRN PRN Reason: Saline Flush Last Admin: 11/24/20 12:06 Dose: 15 mls/hr Documented by: Norepinephrine Bitartrate 8 mg (/ Sodium Chloride) 250 mls @ 9.375 mls/hr CONT INF .[id number] [facility]; Protocol Last Titration: 11/25/20 06:00 Dose: 0 mcg/min, 0 mls/hr Documented by: Piperacillin Sod/Tazobactam (Sod 3.375 gm/ Sodium Chloride) 50 mls @ 12.5 mls/hr IV Q8 [facility] Last Admin: 11/25/20 06:17 Dose: 12.5 mls/hr Documented by: Vancomycin IV Pharmacy to Dose (1 ea/ Sodium Chloride) 500 mls @ 250 mls/hr IV X1 PRN; Protocol PRN Reason: Rx to Dose Propofol (Diprivan) 1,000 mg in 100 mls @ 3.546 mls/hr CONT INF .Q12H [facility]; Protocol Last Titration: 11/25/20 07:00 Dose: 10 mcg/kg/min, 3.5 mls/hr Documented by: Fentanyl Citrate 1,000 mcg/ (Sodium Chloride) 100 mls @ 5 mls/hr CONT INF .Q20H [facility]; Protocol Last Titration: 11/25/20 07:00 Dose: 25 mcg/hr, 2.5 mls/hr Documented by: Vancomycin HCl 750 mg/ Sodium (Chloride) 265 mls @ 250 mls/hr IV Q24H [facility] Levothyroxine Sodium (Levothyroxine 150 Mcg Tablet) 150 mcg GT DAILY [facility] Melatonin (Melatonin 3 Mg Tablet) 3 mg GT QHS PRN PRN PRN Reason: INSOMNIA Methylprednisolone (Methylprednisolone 40 Mg/Ml Vial) 40 mg IV Q6 [facility] Last Admin: 11/25/20 06:17 Dose: 40 mg Documented by: Nitroglycerin (Nitroglycerin (Inpatient Use) 0.4 Mg Tab.Subl) 0.4 mg SUBLINGUAL Q5M PRN PRN Reason: CARDIAC/CHEST PAIN Ondansetron HCl (Ondansetron 4 Mg/2 Ml Vial) 4 mg IV Q8H PRN PRN PRN Reason: NAUSEA/VOMITING Polysaccharide Iron Complex (Iron Polysaccharide Complex 150 Mg Capsule) 150 mg GT DAILY [facility] Senna/Docusate Sodium (Senna/Docusate Sodium 1 Tablet) 2 tablet GT BID PRN PRN PRN Reason: Constipation Sodium Chloride (0.9% Saline Lock 10 Ml Syringe) 10 - 40 ml IV UD PRN PRN Reason: SALINE FLUSH Last Admin: 11/20/20 03:23 Dose: 10 ml Documented by: LUIS Vital Signs/Narrative: Vital Signs Temp Pulse Resp BP Pulse Ox 11/25/20 06:00 86 22 H 139/66 H 91 11/25/20 05:15 86 24 H 93 11/25/20 05:00 87 23 H 142/54 H 91 11/25/20 04:00 98.1 F 86 23 H 124/49 H 91 11/25/20 03:30 120/59 L Medical Necessity - Tobacco Use Smoking Status: Former smoker Assessment/Plan All Active Problems (Last Reviewed 11/14/20 @ 14:[address] Elo Parham DO) Acute hypoxemic respiratory failure (Acute) CHF (congestive heart failure) (Acute) Pneumonia (Acute) Acute hypoxic respiratory failure (Acute) Acute bilateral COVID-19 pneumonia (Acute) Abnormal cardiac enzyme level (Resolved) Anticoagulated on Coumadin (Resolved) The patient is a 80-year-old gentleman with recent admission for COVID-19 pneumonia from 11/02/2020 to 11/12/2020 who presented to the emergency department on 11/14/2020 with worsening hypoxemia and shortness of breath 1. Acute hypoxic respiratory failure Due to combination of recent COVID-19 pneumonia and decompensated CHF. Admitted to monitored bed currently being managed with supplemental oxygen via Airvo --11/24/2020: Patient respiratory status deteriorated resulting in patient being placed on BiPAP. Patient was found to be more lethargic than usual. Held discussion with patient's as well as son regarding patient's condition they both wanted patient to remain full code. Case was further discussed with Dr. Sparrow with intensive care decision was made to transfer patient where patient was intubated. -11/25/2020; patient had to be started on Levophed due to patient being hypotensive. Levophed has since been weaned off. Patient per nursing documentation did well on spontaneous breathing trial. 2. Acute respiratory acidosis ?Due to a combination of decompensated respiratory failure, suspected pulmonary fibrosis and recent COVID-19 pneumonia. Patient respiratory status deteriorated resulting in patient being intubated 3. Recent COVID-19 pneumonia ?Patient was on admission 11/02/2020 to 11/12/2020 who presented to the emergency department on 11/14/2020 with worsening hypoxemia and shortness of breath 4. Acute congestive heart failure with preserved ejection fraction ?Patient has been managed with diuretics 5. Paroxysmal atrial fibrillation ?Rate controlled patient is on systemic anticoagulation with Coumadin INR elevated Coumadin on hold 6. Dyslipidemia -patient is on statin therapy, continued at home dose 7. Chronic kidney disease stage III ?Kidney function at baseline 6. Coronary artery disease ?Stable 7. 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 Hypothyroidism - Patient is on levothyroxine home dose continued 9. Anemia - Secondary to chronic disorder monitoring H&H and transfuse if patient becomes symptomatic or hemoglobin falls below 7 10. DVT prophylaxis ?On Coumadin no need for additional measures 11. Hypertension - Blood pressure controlled, home medications continued with dose adjustment as needed Inpatient E&M: [id number] [facility] Hosp L3
[2020-11-25] MEDS: Ipratropium/Albuterol Sulfate 3 ML AMPUL.NEB INHALATION ×5 (07:31→22:30)
[2020-11-25 07:46] LABS: Allen Test Positive; Base Excess 5 mmol/L (-2 to +2); Bicarbonate 30.5 mmol/L (22-26); Blood Gas Specimen Type ART; FI02 45; Mode AC; O2 Delivery Device Adult Vent; PEEP 5; PO2 65 mmHG (75-100); RR 14; SITE L Radial; SO2 91 % (95-99); Total Carbon Dioxide 32 mmol/L; Vt 450; pH 7.34 (7.35-7.45)
[2020-11-25] MEDS: Clopidogrel Bisulfate 75 MG Tablet GT (09:08)
[2020-11-25] MEDS: Folic Acid 1 MG Tablet GT (09:08)
[2020-11-25] MEDS: Levothyroxine 150 MCG Tablet GT (09:08)
[2020-11-25] MEDS: Famotidine 20 MG Tablet GT (09:08)
[2020-11-25] MEDS: CHLORHEXIDINE GLUC 2% CLOTH 1 EACH TOWELETTE TOPICAL (09:09)
[2020-11-25] MEDS: Chlorhexidine 15 ML PO ×2 (09:09→21:30)
[2020-11-25] MEDS: 0.9% Saline Lock 10 ML Syringe IV ×2 (09:24→12:09)
--- NOTE | 2020-11-25 11:13 | CASEMGMT ---
RN CM Note: participated in ICU interdisciplinary rounds. Pt remains on ventilator 45%. Pt is more awake. Did fiarly well with spontaneous breathing trial, however no extubation planned yet. Remains on Fentanyl, Zosyn, Diprivan, SOluMedrol IV. Passed mobility. DC Plan: TBD. Plans for LTACH on hold currently. Ela FAY RN AC
--- NOTE | 2020-11-25 11:29 | CASEMGMT ---
Social Work PT is currently with pt. SW entered room and introduced self to . Emotional support provided to pt . confirms she has spoke with physician and is informed on pt prognosis. Pt tearful and openly expressing feelings regarding pt. Pt and have support from son Tab. Pt has a second son who lives in residential and also has an adopted 8 year old daughter who states is very close to pt. SW provided support and will remain available should further needs arise. CHANNING Burns
[2020-11-25] MEDS: Ferrous Sulfate 300 MG/5 ML UDC GT (12:09)
--- NOTE | 2020-11-25 12:31 | PCM.NTREPORT ---
Nutrition Therapy Report - History Nutrition Services has been consulted to:: Manage enteral nutrition Current diet / nutrition support order:: NPO - Anthropometric Measurements Height:: 5 ft 1 in Weight:: 59.103 kg Body Mass Index (BMI):: 24.6 - Relevant Labs Relevant Labs:: WBC 11.1 K/mm3 (4.4-11.0) H 11/17/20 05:30 RBC 2.97 M/mm3 (4.6-6.2) L 11/25/20 06:40 Hgb 8.3 g/dL (13.0-16.5) L 11/25/20 06:40 Hct 27.6 % (40-54) L 11/25/20 06:40 MCV 95.2 fL (80-94) H 11/24/20 05:04 MCHC 30.1 g/dL (32-36) L 11/25/20 06:40 RDW Std Deviation 55.6 fl (35.1-43.9) H 11/25/20 06:40 RDW Coeff of Ej 16.3 % (11.6-14.6) H 11/25/20 06:40 Plt Count 135 K/mm3 (150-450) L 11/24/20 05:04 Immature Gran % (Auto) 1.300 % (0.0-0.9) H 11/25/20 06:40 Neut % (Auto) 92.7 % (47-70) H 11/25/20 06:40 Lymph % (Auto) 4.1 % (19-41) L 11/25/20 06:40 Absolute Neuts (auto) 8.8 X10^3/uL (2.0-7.7) H 11/25/20 06:40 Absolute Lymphs (auto) 0.39 X10^3/uL (0.83-4.51) L 11/25/20 06:40 PT 34.5 SECONDS (11.7-14.9) H 11/24/20 05:04 INR 3.5 H* 11/24/20 05:04 APTT 37.6 Seconds (24.1-36.2) H 11/14/20 11:05 Sodium 148 mmol/L (136-145) H 11/25/20 06:40 Potassium 3.1 mmol/L (3.5-5.1) L 11/16/20 05:50 Chloride 112 mmol/L (98-107) H 11/25/20 06:40 Carbon Dioxide 33.0 mmol/L (21.0-32.0) H 11/23/20 05:50 Anion Gap 4 (5-15) L 11/23/20 05:50 BUN 73 mg/dL (7-18) H 11/25/20 06:40 Creatinine 1.93 mg/dL (0.70-1.30) H 11/25/20 06:40 Est GFR (MDRD) Af Amer 43 mL/min (>60) L 11/25/20 06:40 Est GFR (MDRD) Non-Af 36 mL/min (>60) L 11/25/20 06:40 BUN/Creatinine Ratio 37.8 RATIO (10-20) H 11/25/20 06:40 Glucose 128 mg/dL (74-106) H 11/25/20 06:40 Calcium 7.9 mg/dL (8.5-10.1) L 11/25/20 06:40 B-Natriuretic Peptide 317.2 pg/mL (0-100) H 11/23/20 05:55 Total Protein 5.3 g/dL (6.4-8.2) L 11/25/20 06:40 Albumin 1.8 g/dL (3.2-5.0) L 11/25/20 06:40 Albumin/Globulin Ratio 0.5 RATIO (0.9-2.4) L 11/25/20 06:40 Procalcitonin 0.70 ng/mL (0.00-0.09) H 11/15/20 04:30 - Assessment Food / Nutrition-Related History:: Discussed in ICU rounds. Pt remains intubated w/ OGT in place. No remarkable wt changes from previous assessment. Continues w/ edema per nursing report. As discussed in rounds, okay to start enteral nutrition support. - Nutrition Diagnosis Problem / Etiology / Signs & Symptoms (PES):: inadequate oral intake r/t increased energy needs d/t resp. failure as evidenced by~50% PO intake at meals, current NPO status Evidence of Malnutrition Exists:: No - Nutrition Intervention Nutrition Prescription:: [id number] calories/day (1.3xRMR). 70-90 g protein/day (1.2-1.5g/kg). 1500mL fluid/day d/t CHF - Food / Nutrient Delivery Interventions Summary of nutrition intervention:: will order enteral nutrition Nutrition support ordered as / adjusted to:: via OGT- Vital AF 1.2 at goal rate of 55mL/hour w/ 75mL H2O flush every 4 hours to provide 1584 calories, 99 g protein, and 1520mL total fluid/day. Would start at 15mL/hour and increase by 10mL every 8-12 hours as tolerated until goal rate is achieved. - MNT Monitoring Further MNT monitoring and evaluation required?: Yes MNT Follow-up in:: 1-2 days
[2020-11-25 13:08] LABS: Prothrombin Time (Protime)PT. 49.5 SECONDS (11.7-14.9)
[2020-11-25 13:12] LABS: International Normalized Ratio 5.4
[2020-11-25] MEDS: Vital AF 1.2 Cal Liquid 1,000 ML 55 ML GT (14:45)
[2020-11-25] MEDS: Propofol 10MG/Ml 1,000 MG/100 ML Bottle 3.5 MG CONT INF (15:42)
--- NOTE | 2020-11-25 17:00 | CHAPLAIN ---
Type of Pastoral Visit ___ Initial Visit _x__ Follow-up Visit ___ On-call Visit ___ General Patient Visit ___ Spiritual Assessment ___ Family Conference ___ Bereavement ___ Rapid Response ___ Code Blue ___ Other (describe below) Pastoral Care Referral From _x__ Patient ___ Family ___ Nurse ___ Physician ___ Director [employer] ___ Boiler Or Engine Operator ___ Other (describe below) Sacrament/Intervention ___ Active listening ___ Anointing ___ Pentecostal ___ Bereavement ___ Communion ___ Trupti exploration ___ ___ Life review _x__ Prayer ___ Reconciliation ___ Sacrament of Sick _x__ Supportive presence ___ Wedding ___ Other (describe below) Pastoral Comments patient is awake although still intubated; pt acknowledged presence with holding hand up and giving signals; pt welcomes prayer and presence
[2020-11-25 17:09] LABS: ANTINUCLEAR ANTIBODIES DIRECT Negative (Negative)
[2020-11-25] MEDS: Atorvastatin Calcium 20 MG Tablet GT (21:30)
[2020-11-26] VITALS (39 sets, daily range): BP systolic 107–172; BP diastolic 50–97; PULSE 88–118; RESP 12–27; TEMP 36.3–37.1; O2SAT 89–97
[2020-11-26] MEDS: 0.9% Saline Lock 10 ML Syringe IV ×3 (00:47→23:53)
[2020-11-26] MEDS: Ipratropium/Albuterol Sulfate 3 ML AMPUL.NEB INHALATION ×6 (02:29→22:43)
[2020-11-26] MEDS: TITRATION PARAMETER CHANGE 1 EACH IV (06:18)
[2020-11-26] MEDS: Menthol/Lanolin/Calamine/Znox 113 GM Tube 1 APPLIC TOPICAL ×2 (06:18→22:18)
--- NOTE | 2020-11-26 06:37 | PCM.PN.INT ---
Subjective: The patient was seen and examined at the bedside this morning. Events from the last 24 hours have been reviewed. The patient is currently afebrile, hemodynamically stable and maintaining appropriate oxygen saturations on spontaneous mode of mechanical ventilation with an FiO2 requirement of 40%. The patient tolerated his spontaneous awakening trial this morning and is currently doing well on his spontaneous breathing trial. The patient is currently documented to be overall net -3.5 L for the hospital admission. Objective: The patient's most recent lab work, culture data and imaging studies have all been personally reviewed. Stool for occult blood was positive on November 22. Surface echocardiogram revealed normal LV size with an ejection fraction of 55%. Right ventricular systolic pressure was estimated to be 45 mmHg. CTA chest showed no evidence for pulmonary embolism. There was note of a moderate sized hiatal hernia along with diffuse groundglass opacities bilaterally and moderate bilateral pleural effusions with associated atelectasis. General: Alert, Cooperative, No apparent distress, - - Currently tolerating spontaneous mode of mechanical ventilation. HEENT: Atraumatic, PERRLA, Normocephalic Oral: No Gingival or Mucosal Lesions/ Ulcerations, - - Stable endotracheal and OG tubes. Neck: Supple, No Nodes, Trachea Midline, - - Stable right IJ triple-lumen catheter in place Lungs: No rhonchi, No wheeze, No rales, Diminished Cardiovascular: Normal S1, Normal S2, Irregular Rate, Murmur, Tachycardic Abdomen: Bowel Sounds Present, Soft, Non Tender Extremities: No clubbing, No cyanosis, Edema Skin: - - No significant change from previous Musculoskeletal: No Tenderness to Palpation of Joints or Extremities Lymphatic: No Cervical, Supraclavicular, or Inguinal Adenopathy Neurological: - - No focal neurological deficits. Alert and following commands appropriately. Vital Signs Temp Pulse Resp BP Pulse Ox 98.2 F 93 19 H 130/56 H 92 11/26/20 04:00 11/26/20 04:24 11/26/20 04:26 11/26/20 04:00 11/26/20 04:24 Oxygen Flow Rate (L/min) 60 Oxygen Delivery Method Mechanical Ventilator Weight: 126 lb 1.671 oz Body Mass Index (BMI) 24.6 Intake and Output for Last 24 Hours 11/24/20 11/25/20 11/26/20 23:59 23:59 23:59 Intake Total 1900.79 / 1920.49 1305.14 / 1675.14 616.0 / 616.0 Output Total 700 / 700 550 / 750 400 / 400 Balance 1200.79 / 1220.49 755.14 / 925.14 216.0 / 216.0 Labs (Last 48 Hours) 11/24/20 11/24/20 11/24/20 05:04 05:04 05:04 WBC 9.9 RBC 3.32 L Hgb 9.4 L Hct 31.6 L MCV 95.2 H MCH 28.3 MCHC 29.7 L RDW Std Deviation 57.7 H RDW Coeff of Ej 16.6 H Plt Count 135 L MPV 11.0 Immature Gran % (Auto) 0.600 Neut % (Auto) 89.0 H Lymph % (Auto) 5.[address] % (Auto) 4.4 Eos % (Auto) 0.2 Baso % (Auto) 0.4 Absolute Neuts (auto) 8.8 H Absolute Lymphs (auto) 0.54 L Nucleated RBC % 0 Differential Comment Hypochromasia PT INR Specimen Type Sample Site pH Bicarbonate Actual Total CO2 Base Excess O2 Saturation O2 % ABG pCO2 ABG pO2 Ramon Test Respiration Rate O2 Delivery Device Vent Mode Tidal Volume POC PEEP Sodium 144 Potassium 4.2 Chloride 108 H Carbon Dioxide 28.0 Anion Gap 8 BUN 59 H Creatinine 1.47 H Estim Creat Clear Calc 30.14 Est GFR (MDRD) Af Amer 59 L Est GFR (MDRD) Non-Af 49 L BUN/Creatinine Ratio 40.1 H Glucose 96 Lactic Acid Calcium 8.2 L Total Bilirubin AST ALT Alkaline Phosphatase Total Creatine Kinase 43 Troponin I Total Protein Albumin Globulin Albumin/Globulin Ratio Triglycerides 131 Rheumatoid Factor < 10.0 Cycl Citrul Peptide IgG DANA Screen c-ANCA Antibody p-ANCA Antibody BERTHA-1 Antibody SS-A/Ro IgG Antibody SS-B/La IgG Antibody Sm ([place]rum) Antibody DIRECT MARKETING REPRESENTATIVE Antibody Scl-70 Scleroderma Ab Double Strand DNA Ab Centromere B Antibody MRSA (PCR) POC Glucose 11/24/20 11/24/20 11/24/20 05:30 09:29 10:50 WBC RBC Hgb Hct MCV MCH MCHC RDW Std Deviation RDW Coeff of Ej Plt Count MPV Immature Gran % (Auto) Neut % (Auto) Lymph % (Auto) [place] % (Auto) Eos % (Auto) Baso % (Auto) Absolute Neuts (auto) Absolute Lymphs (auto) Nucleated RBC % Differential Comment Hypochromasia PT INR Specimen Type ART Sample Site L Radial pH 7.18 L* Bicarbonate Actual 32.6 H Total CO2 35 Base Excess 4 H O2 Saturation 98 O2 % ABG pCO2 87.3 H* ABG pO2 127 H Ramon Test Positive Respiration Rate O2 Delivery Device HFNC Vent Mode Tidal Volume POC PEEP Sodium Potassium Chloride Carbon Dioxide Anion Gap BUN Creatinine Estim Creat Clear Calc Est GFR (MDRD) Af Amer Est GFR (MDRD) Non-Af BUN/Creatinine Ratio Glucose Lactic Acid Calcium Total Bilirubin AST ALT Alkaline Phosphatase Total Creatine Kinase Troponin I Total Protein Albumin Globulin Albumin/Globulin Ratio Triglycerides Rheumatoid Factor Cycl Citrul Peptide IgG DANA Screen Negative c-ANCA Antibody p-ANCA Antibody BERTHA-1 Antibody Not Reportable SS-A/Ro IgG Antibody Not Reportable SS-B/La IgG Antibody Not Reportable Sm ([place]rum) Antibody Not Reportable DIRECT MARKETING REPRESENTATIVE Antibody Not Reportable Scl-70 Scleroderma Ab Not Reportable Double Strand DNA Ab Not Reportable Centromere B Antibody Not Reportable MRSA (PCR) Negative POC Glucose 11/24/20 11/24/20 11/24/20 11:10 11:10 11:37 WBC RBC Hgb Hct MCV MCH MCHC RDW Std Deviation RDW Coeff of Ej Plt Count MPV Immature Gran % (Auto) Neut % (Auto) Lymph % (Auto) [place] % (Auto) Eos % (Auto) Baso % (Auto) Absolute Neuts (auto) Absolute Lymphs (auto) Nucleated RBC % Differential Comment Hypochromasia PT INR Specimen Type ART Sample Site L Brach pH 7.21 L Bicarbonate Actual 31.6 H Total CO2 34 Base Excess 4 H O2 Saturation 95 O2 % 70 ABG pCO2 78.8 H* ABG pO2 97 Ramon Test Positive Respiration Rate 14 O2 Delivery Device Adult Vent Vent Mode AC Tidal Volume 450 POC PEEP 5 Sodium Potassium Chloride Carbon Dioxide Anion Gap BUN Creatinine Estim Creat Clear Calc Est GFR (MDRD) Af Amer Est GFR (MDRD) Non-Af BUN/Creatinine Ratio Glucose Lactic Acid 1.1 Calcium Total Bilirubin AST ALT Alkaline Phosphatase Total Creatine Kinase Troponin I 0.022 Total Protein Albumin Globulin Albumin/Globulin Ratio Triglycerides Rheumatoid Factor Cycl Citrul Peptide IgG DANA Screen c-ANCA Antibody p-ANCA Antibody BERTHA-1 Antibody SS-A/Ro IgG Antibody SS-B/La IgG Antibody Sm ([place]rum) Antibody DIRECT MARKETING REPRESENTATIVE Antibody Scl-70 Scleroderma Ab Double Strand DNA Ab Centromere B Antibody MRSA (PCR) POC Glucose 11/24/20 11/24/20 11/25/20 14:28 18:59 00:11 WBC RBC Hgb Hct MCV MCH MCHC RDW Std Deviation RDW Coeff of Ej Plt Count MPV Immature Gran % (Auto) Neut % (Auto) Lymph % (Auto) [place] % (Auto) Eos % (Auto) Baso % (Auto) Absolute Neuts (auto) Absolute Lymphs (auto) Nucleated RBC % Differential Comment Hypochromasia PT INR Specimen Type Sample Site pH Bicarbonate Actual Total CO2 Base Excess O2 Saturation O2 % ABG pCO2 ABG pO2 Ramon Test Respiration Rate O2 Delivery Device Vent Mode Tidal Volume POC PEEP Sodium Potassium Chloride Carbon Dioxide Anion Gap BUN Creatinine Estim Creat Clear Calc Est GFR (MDRD) Af Amer Est GFR (MDRD) Non-Af BUN/Creatinine Ratio Glucose Lactic Acid Calcium Total Bilirubin AST ALT Alkaline Phosphatase Total Creatine Kinase Troponin I Total Protein Albumin Globulin Albumin/Globulin Ratio Triglycerides Rheumatoid Factor Cycl Citrul Peptide IgG DANA Screen c-ANCA Antibody p-ANCA Antibody BERTHA-1 Antibody SS-A/Ro IgG Antibody SS-B/La IgG Antibody Sm ([place]rum) Antibody DIRECT MARKETING REPRESENTATIVE Antibody Scl-70 Scleroderma Ab Double Strand DNA Ab Centromere B Antibody MRSA (PCR) POC Glucose 115 H 104 126 H 11/25/20 11/25/20 11/25/20 06:40 06:40 06:40 WBC 9.5 RBC 2.97 L Hgb 8.3 L Hct 27.6 L MCV 92.9 MCH 27.9 MCHC 30.1 L RDW Std Deviation 55.6 H RDW Coeff of Ej 16.3 H Plt Count 175 MPV 10.1 Immature Gran % (Auto) 1.300 H Neut % (Auto) 92.7 H Lymph % (Auto) 4.[address] % (Auto) 1.9 Eos % (Auto) 0.0 Baso % (Auto) 0.0 Absolute Neuts (auto) 8.8 H Absolute Lymphs (auto) 0.39 L Nucleated RBC % 0 Differential Comment SCANNED Hypochromasia RARE PT INR Specimen Type Sample Site pH Bicarbonate Actual Total CO2 Base Excess O2 Saturation O2 % ABG pCO2 ABG pO2 Ramon Test Respiration Rate O2 Delivery Device Vent Mode Tidal Volume POC PEEP Sodium 148 H Potassium 4.1 Chloride 112 H Carbon Dioxide 30.0 Anion Gap 6 BUN 73 H Creatinine 1.93 H Estim Creat Clear Calc 22.96 Est GFR (MDRD) Af Amer 43 L Est GFR (MDRD) Non-Af 36 L BUN/Creatinine Ratio 37.8 H Glucose 128 H Lactic Acid Calcium 7.9 L Total Bilirubin 0.70 AST 16 ALT 19 Alkaline Phosphatase 91 Total Creatine Kinase Troponin I Total Protein 5.3 L Albumin 1.8 L Globulin 3.5 Albumin/Globulin Ratio 0.5 L Triglycerides Rheumatoid Factor Cycl Citrul Peptide IgG Pending DANA Screen c-ANCA Antibody Pending p-ANCA Antibody Pending BERTHA-1 Antibody SS-A/Ro IgG Antibody SS-B/La IgG Antibody Sm ([place]rum) Antibody DIRECT MARKETING REPRESENTATIVE Antibody Scl-70 Scleroderma Ab Double Strand DNA Ab Centromere B Antibody MRSA (PCR) POC Glucose 11/25/20 11/25/20 07:37 12:15 WBC RBC Hgb Hct MCV MCH MCHC RDW Std Deviation RDW Coeff of Ej Plt Count MPV Immature Gran % (Auto) Neut % (Auto) Lymph % (Auto) [place] % (Auto) Eos % (Auto) Baso % (Auto) Absolute Neuts (auto) Absolute Lymphs (auto) Nucleated RBC % Differential Comment Hypochromasia PT 49.5 H INR 5.4 H* Specimen Type ART Sample Site L Radial pH 7.34 L Bicarbonate Actual 30.5 H Total CO2 32 Base Excess 5 H O2 Saturation 91 L O2 % 45 ABG pCO2 56.0 H ABG pO2 65 L Ramon Test Positive Respiration Rate 14 O2 Delivery Device Adult Vent Vent Mode AC Tidal Volume 450 POC PEEP 5 Sodium Potassium Chloride Carbon Dioxide Anion Gap BUN Creatinine Estim Creat Clear Calc Est GFR (MDRD) Af Amer Est GFR (MDRD) Non-Af BUN/Creatinine Ratio Glucose Lactic Acid Calcium Total Bilirubin AST ALT Alkaline Phosphatase Total Creatine Kinase Troponin I Total Protein Albumin Globulin Albumin/Globulin Ratio Triglycerides Rheumatoid Factor Cycl Citrul Peptide IgG DANA Screen c-ANCA Antibody p-ANCA Antibody BERTHA-1 Antibody SS-A/Ro IgG Antibody SS-B/La IgG Antibody Sm ([place]rum) Antibody DIRECT MARKETING REPRESENTATIVE Antibody Scl-70 Scleroderma Ab Double Strand DNA Ab Centromere B Antibody MRSA (PCR) POC Glucose Microbiology 11/24/20 11:15 Sputum, Induced/Lukens Gram Stain - Final 11/24/20 11:15 Sputum, Induced/Lukens Respiratory Culture - Preliminary 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 Electronically Signed: Caleb Hinds MD at 11:15 EST Tel , Service support , Chest CTA 11/14/20 11:14 IMPRESSION: 1. No CT evidence of pulmonary embolism. 2. Bilateral pneumonia, pulmonary edema, or ARDS. 3. Moderate bilateral pleural effusions. Electronically Signed: Caleb Hinds MD at 12:24 EST Tel , Service support , Chest X-Ray 11/15/20 05:55 IMPRESSION: No change in bilateral pneumonia. Electronically Signed: Caleb Hinds MD at 7:22 EST Tel , Service support , Chest X-Ray 11/20/20 05:40 IMPRESSION: Progressive infiltration in both lungs worse in the peripheral aspect of the left hemithorax. Electronically Signed: Milan Cao MD at 8:03 EST , Service support , Chest CTA 11/22/20 08:15 IMPRESSION: 1. No CT evidence of pulmonary embolism. 2. Worsening bilateral pneumonia, pulmonary edema, or ARDS. 3. No change in moderate bilateral pleural effusions with bibasilar atelectasis. Electronically Signed: Caleb Hinds MD at 9:41 EST Tel , Service support , Chest X-Ray 11/24/20 10:06 IMPRESSION: The tip of the endotracheal tube is at 4.3 cm proximal to the chrissy. The tip of the orogastric tube is in the body of the stomach. Improved aeration of both lungs with residual infiltrates in both lungs. I suspect mild degree of superimposed CHF. Electronically Signed: Milan Cao MD at 10:51 EST , Service support , Chest X-Ray 11/25/20 06:42 IMPRESSION: The support tubes are unchanged. Mild degree of improved aeration of both lungs. Electronically Signed: Milan Cao MD at 9:11 EST , Service support , Medical Necessity - Tobacco Use Smoking Status: Former smoker Assessment/Plan All Active Problems (Last Reviewed 11/14/20 @ 14:[address] Elo Parham, DO) Acute hypoxemic respiratory failure (Acute) CHF (congestive heart failure) (Acute) Pneumonia (Acute) Acute hypoxic respiratory failure (Acute) Acute bilateral COVID-19 pneumonia (Acute) Abnormal cardiac enzyme level (Resolved) Anticoagulated on Coumadin (Resolved) RECOMMENDATIONS: 1. Continue patient on spontaneous mode of mechanical ventilation throughout the day and transition back to assist control for overnight support. 2. Continue Zosyn as ordered. Okay to discontinue vancomycin. 3. Continue bronchodilators and IV steroids. 4. Continue tube feeds as tolerated. 5. Continue appropriate GI prophylaxis. 6. Continue to hold Coumadin given supratherapeutic INR. IMPRESSIONS: 1. Acute hypoxic and hypercarbic respiratory failure The patient was recently admitted to the hospital with respiratory failure secondary to COVID-19 pneumonia and was only home for approximately 2 days prior to returning to the hospital with worsening shortness of breath and hypoxemia. The patient's CTA showed no evidence for PE and looked similar in appearance when compared to prior imaging studies from his last hospitalization, with the exception of some increased groundglass and pleural effusions. The patient was admitted to the hospital and placed on BiPAP and scheduled IV diuretic therapy. I am concerned that the patient likely has some underlying, baseline chronic lung disease as well. Although the patient initially showed some improvement, he later decompensated from a respiratory perspective and required transfer to the ICU and subsequent intubation on November 24. Over concerns for possible postinflammatory pulmonary fibrosis or underlying, chronic steroid responsive interstitial lung process, the patient was started on IV steroids. In addition, over concerns for possible pulmonary toxicity related to amiodarone use, the aforementioned medication was discontinued. The patient will be continued on assist control mode of mechanical ventilation with plans to wean FiO2 to maintain saturations at or above 90%. Empiric antimicrobials will also be continued, pending further culture results. 2. Encephalopathy Improved. Gipsy to be secondary to acute CO2 narcosis. With invasive mechanical ventilatory support, the patient's acid-base status has improved. We will plan to continue current sedation regimen with a goal to maintain a RASS of -1 to +1. 3. Acute kidney injury Likely prerenal in etiology with a component of ischemic ATN likely, given hemodynamic instability noted yesterday. The patient, did for period of time, require vasopressor support. However, the patient has been weaned from Levophed at this time. We will continue to monitor creatinine and urine output for now. No current indication for renal replacement therapy. Continue to hold diuretics. 4. Chronic diastolic CHF/history of ascending aortic dissection status post repair/paroxysmal A. fib/hypertensive urgency The patient presented to the hospital with what appeared to be a CHF exacerbation. Although the patient was treated with diuretics and maintained on noninvasive positive pressure ventilatory support, his oxygen status remains quite tenuous, only to later require intubation. Diuretics have subsequently been placed on hold due to the development of DIONI. 5. CKD stage III/chronic anemia/hypothyroidism/advanced age Complicates care, management, recovery and prognosis. Continue home medications as indicated. TIME: 34 minutes of critical care time, inclusive of procedures, was spent addressing the patient's acute on chronic respiratory failure, hypercarbic encephalopathy, distributive shock, congestive heart failure, review of all data and collaboration with the care team. ([id number]) [id number] Critical care first hour
[2020-11-26 06:53] LABS: Absolute Lymphocyte Count 0.31 X10^3/uL (0.83-4.51); Absolute Neutrophil Count 7.2 X10^3/uL (2.0-7.7); Hemoglobin 8.2 g/dL (13.0-16.5); Lymphocyte # 0.31 X10^3/ul (4.0); Mean Corp Hgb Conc 30.4 g/dL (32-36); Mean Corpuscular Volume 92.2 fL (80-94); Mean Platelet Vol. 10.7 fl (6.2-12.0); Monocyte# 0.24 X10^3/uL; Monocyte% 3.1 % (0-10); NRBC Flagged by Analyzer 0 % (0-5); Neutrophil % 92.1 % (47-70); POSITIVE DIFFERENTIAL YES; Platelet Count 184 K/mm3 (150-450); RBC Distribution Width CV 16.2 % (11.6-14.6); RBC Distribution Width SD 55.2 fl (35.1-43.9); Red Blood Count 2.93 M/mm3 (4.6-6.2); White Blood Count 7.8 K/mm3 (4.4-11.0)
[2020-11-26 06:54] LABS: Differential Indicated SCAN CRITERIA MET
[2020-11-26 07:03] LABS: Anion Gap 6 (5-15); BUN 80 mg/dL (7-18); BUN/Creat Ratio 40.4 RATIO (10-20); Calcium,Total 7.6 mg/dL (8.5-10.1); Chloride 112 mmol/L (98-107); Creatinine, Serum 1.98 mg/dL (0.70-1.30); EST Glomerular Filtration Rate 35 mL/min (>60); Est Glom Filt Rate - Afr Amer 42 mL/min (>60); Estimated Creatinine Clearance 22.38 ml/min; Glucose 193 mg/dL (74-106); Potassium 3.6 mmol/L (3.5-5.1); Sodium Level 149 mmol/L (136-145)
[2020-11-26 07:13] LABS: Prothrombin Time (Protime)PT. 51.2 SECONDS (11.7-14.9)
[2020-11-26 07:14] LABS: International Normalized Ratio 5.6
--- NOTE | 2020-11-26 07:43 | PN_ITS ---
Patient Problems: Active and Suspected Problems (Last Reviewed 11/14/20 @ 14:[address] Elo Parham, DO) Acute hypoxemic respiratory failure (Acute) CHF (congestive heart failure) (Acute) Pneumonia (Acute) Acute bilateral COVID-19 pneumonia (Acute) Reason for Visit: Hypoxic respiratory failure Subjective: The patient is a 80-year-old gentleman with recent admission for COVID-19 pneumonia from 11/02/2020 to 11/12/2020 who presented to the emergency department on 11/14/2020 with worsening hypoxemia and shortness of breath -11/24/2020: Patient respiratory status deteriorated resulting in patient being placed on BiPAP. Patient was found to be more lethargic than usual. Held discussion with patient's as well as son regarding patient's condition they both wanted patient to remain full code. Case was further discussed with Dr. Sparrow with intensive care decision was made to transfer patient where patient was intubated. 11/25/2020; patient had to be started on Levophed due to patient being hypotensive. Levophed has since been weaned off. Patient per nursing documentation did well on spontaneous breathing trial. Objective: GENERAL: Patient on the vent HEENT: Atraumatic; EYES; Anicteric, Normal Conjunctiva NECK; supple, normal thyroid, RESPIRATORY: Diminished to auscultation CARDIOVASCULAR: Regular S1 S2, GI: soft, normoactive bowel sounds, : No Renal angle tenderness; EXTREMITIES: edema, no clubbing, MUSCULOSKELETAL: no muscle waisting NEURO: Patient on the vent but easily arousable SKIN: No Rash Vitals/I&O's: Vital Signs Temp Pulse Resp BP Pulse Ox 98.2 F 95 18 167/65 H 94 11/26/20 04:00 11/26/20 07:05 11/26/20 07:05 11/26/20 06:00 11/26/20 07:05 Oxygen Flow Rate (L/min) 60 Oxygen Delivery Method Mechanical Ventilator Weight: 57.2 kg Body Mass Index (BMI) 24.6 Intake and Output for Last 24 Hours 11/24/20 11/25/20 11/26/20 23:59 23:59 23:59 Intake Total 1900.79 / 1920.49 1305.14 / 1675.14 622.0 / 622.0 Output Total 700 / 700 550 / 750 400 / 400 Balance 1200.79 / 1220.49 755.14 / 925.14 222.0 / 222.0 Microbiology Past 72 Hours 11/24/20 11:15 Sputum, Induced/Lukens Gram Stain - Final 11/24/20 11:15 Sputum, Induced/Lukens Respiratory Culture - Preliminary GNR lactose able bodied watchman 11/24/20 10:50 Urine Catheter - Mcdowell Legionella Antigen - Final 11/24/20 10:50 Urine Catheter - Mcdowell Streptococcus pneumoniae Antigen (M - Final Laboratory Results 11/24/20 05:30: DANA Screen Negative, BERTHA-1 Antibody Not Reportable, SS-A/Ro IgG Antibody Not Reportable, SS-B/La IgG Antibody Not Reportable, Sm (Landrum) Antibody Not Reportable, RENT CONTROL OFFICE MANAGER Antibody Not Reportable, Scl-70 Scleroderma Ab Not Reportable, Double Strand DNA Ab Not Reportable, Centromere B Antibody Not Reportable 11/25/20 07:37: Specimen Type ART, Sample Site L Radial, pH 7.34 L, Bicarbonate Actual 30.5 H, Total CO2 32, Base Excess 5 H, O2 Saturation 91 L, O2 % 45, ABG pCO2 56.0 H, ABG pO2 65 L, Ramon Test Positive, Respiration Rate 14, O2 Delivery Device Adult Vent, Vent Mode AC, Tidal Volume 450, POC PEEP 5 11/25/20 12:15: PT 49.5 H, INR 5.4 H* 11/26/20 04:10: WBC 7.8, RBC 2.93 L, Hgb 8.2 L, Hct 27.0 L, MCV 92.2, MCH 28.0, MCHC 30.4 L, RDW Std Deviation 55.2 H, RDW Coeff of Ej 16.2 H, Plt Count 184, MPV 10.7, Immature Gran % (Auto) 0.800, Neut % (Auto) 92.1 H, Lymph % (Auto) 4.0 L, Stark % (Auto) 3.1, Eos % (Auto) 0.0, Baso % (Auto) 0.0, Absolute Neuts (auto) 7.2, Absolute Lymphs (auto) 0.31 L, Nucleated RBC % 0 11/26/20 04:10: Sodium 149 H, Potassium 3.6, Chloride 112 H, Carbon Dioxide 31.0, Anion Gap 6, BUN 80 H, Creatinine 1.98 H, Estim Creat Clear Calc 22.38, Est GFR (MDRD) Af Amer 42 L, Est GFR (MDRD) Non-Af 35 L, BUN/Creatinine Ratio 4 0.4 H, Glucose 193 H, Calcium 7.6 L 11/26/20 06:50: PT 51.2 H, INR 5.6 H* Current Medications Acetaminophen (Acetaminophen 650 Mg/20 Ml Udc) 650 mg GT Q6H PRN PRN PRN Reason: Pain Score 1-10/Temp > 100.7 F Albuterol Sulfate (Albuterol 2.5 Mg/3 Ml Vial.Neb.) 2.5 mg INHALATION Q2H PRN PRN PRN Reason: SOB/Wheezing Albuterol/Ipratropium (Ipratropium/Albuterol Sulfate 3 Ml Ampul.Neb) 3 ml INHALATION Q4H.RT [facility] Last Admin: 11/26/20 07:05 Dose: 3 ml Documented by: Atorvastatin Calcium (Atorvastatin Calcium 20 Mg Tablet) 20 mg GT QHS [facility] Last Admin: 11/25/20 21:30 Dose: 20 mg Documented by: Calamine/Phenol (Menthol/Lanolin/Calamine/Znox 113 Gm Tube) 1 applic TOPICAL 0600,2200 [facility]; Protocol Last Admin: 11/26/20 06:18 Dose: 1 applicatio Documented by: Calcium Carbonate (Calcium Carbonate 500 Mg Tablet) 500 mg GT Q6H PRN PRN PRN Reason: HEARTBURN Chlorhexidine Gluconate (Chlorhexidine 15 Ml) 15 ml PO BID [facility] Last Admin: 11/25/20 21:30 Dose: 15 ml Documented by: Chlorhexidine Gluconate (Chlorhexidine Gluc 2% Cloth 1 Each Towelette) 1 each TOPICAL DAILY [facility] Last Admin: 11/25/20 09:09 Dose: 1 each Documented by: Clopidogrel Bisulfate (Clopidogrel Bisulfate 75 Mg Tablet) 75 mg GT DAILY [facility] Last Admin: 11/25/20 09:08 Dose: 75 mg Documented by: Famotidine (Famotidine 20 Mg Tablet) 20 mg GT DAILY [facility] Last Admin: 11/25/20 09:08 Dose: 20 mg Documented by: Ferrous Sulfate (Ferrous Sulfate 300 Mg/5 Ml Udc) 300 mg GT DAILY [facility] Last Admin: 11/25/20 12:09 Dose: 300 mg Documented by: Folic Acid (Folic Acid 1 Mg Tablet) 1 mg GT DAILY [facility] Last Admin: 11/25/20 09:08 Dose: 1 mg Documented by: Guaifenesin (Guaifenesin 10 Ml Udc (200mg/10ml)) 10 ml GT Q4H PRN PRN PRN Reason: COUGH Sodium Chloride () 250 mls @ 15 mls/hr IV .[id number] PRN PRN Reason: Saline Flush Last Infusion: 11/25/20 12:00 Dose: 0 mls/hr Documented by: Piperacillin Sod/Tazobactam (Sod 3.375 gm/ Sodium Chloride) 50 mls @ 12.5 mls/hr IV Q8 [facility] Last Admin: 11/26/20 06:20 Dose: 12.5 mls/hr Documented by: Propofol (Diprivan) 1,000 mg in 100 mls @ 3.498 mls/hr CONT INF .Q12H [facility]; Protocol Last Titration: 11/26/20 06:00 Dose: 0 mcg/kg/min, 0 mls/hr Documented by: Fentanyl Citrate 1,000 mcg/ (Sodium Chloride) 100 mls @ 5 mls/hr CONT INF .Q20H [facility]; Protocol Last Titration: 11/26/20 06:00 Dose: 0 mcg/hr, 0 mls/hr Documented by: Enteral Nutritional Formula (Vital Af 1.2 Vasiliy Liquid) 1,000 mls @ 55 mls/hr GT .[id number] [facility] Last Admin: 11/26/20 06:31 Dose: Not Given Documented by: Levothyroxine Sodium (Levothyroxine 150 Mcg Tablet) 150 mcg GT DAILY [facility] Last Admin: 11/25/20 09:08 Dose: 150 mcg Documented by: Methylprednisolone (Methylprednisolone 40 Mg/Ml Vial) 40 mg IV Q6 [facility] Last Admin: 11/26/20 06:18 Dose: 40 mg Documented by: Nitroglycerin (Nitroglycerin (Inpatient Use) 0.4 Mg Tab.Subl) 0.4 mg SUBLINGUAL Q5M PRN PRN Reason: CARDIAC/CHEST PAIN Ondansetron HCl (Ondansetron 4 Mg/2 Ml Vial) 4 mg IV Q8H PRN PRN PRN Reason: NAUSEA/VOMITING Senna/Docusate Sodium (Senna/Docusate Sodium 1 Tablet) 2 tablet GT BID PRN PRN PRN Reason: Constipation Sodium Chloride (0.9% Saline Lock 10 Ml Syringe) 10 - 40 ml IV UD PRN PRN Reason: SALINE FLUSH Last Admin: 11/26/20 06:54 Dose: 40 ml Documented by: LUIS Vital Signs/Narrative: Vital Signs Temp Pulse Resp BP Pulse Ox 11/26/20 07:05 91 18 94 11/26/20 06:00 98 25 H 167/65 H 89 11/26/20 05:00 94 21 H 172/58 H 91 11/26/20 04:26 19 H 11/26/20 04:24 93 19 H 92 11/26/20 04:00 98.2 F 92 17 130/56 H 90 Medical Necessity - Tobacco Use Smoking Status: Former smoker Assessment/Plan All Active Problems (Last Reviewed 11/14/20 @ 14:[address] Elo Parham, DO) Acute hypoxemic respiratory failure (Acute) CHF (congestive heart failure) (Acute) Pneumonia (Acute) Acute hypoxic respiratory failure (Acute) Acute bilateral COVID-19 pneumonia (Acute) Abnormal cardiac enzyme level (Resolved) Anticoagulated on Coumadin (Resolved) The patient is a 80-year-old gentleman with recent admission for COVID-19 pneumonia from 11/02/2020 to 11/12/2020 who presented to the emergency department on 11/14/2020 with worsening hypoxemia and shortness of breath 1. Acute hypoxic respiratory failure Due to combination of recent COVID-19 pneumonia and decompensated CHF. Admitted to monitored bed currently being managed with supplemental oxygen via Airvo --11/24/2020: Patient respiratory status deteriorated resulting in patient being placed on BiPAP. Patient was found to be more lethargic than usual. Held discussion with patient's as well as son regarding patient's condition they both wanted patient to remain full code. Case was further discussed with Dr. Sparrow with intensive care decision was made to transfer patient where patient was intubated. -11/25/2020; patient had to be started on Levophed due to patient being hypotensive. Levophed has since been weaned off. Patient per nursing documentation did well on spontaneous breathing trial. 2. Acute respiratory acidosis ?Due to a combination of decompensated respiratory failure, suspected pulmonary fibrosis and recent COVID-19 pneumonia. Patient respiratory status deteriorated resulting in patient being intubated 3. Recent COVID-19 pneumonia ?Patient was on admission 11/02/2020 to 11/12/2020 who presented to the emergency department on 11/14/2020 with worsening hypoxemia and shortness of breath 4. Acute congestive heart failure with preserved ejection fraction ?Patient has been managed with diuretics 5. Paroxysmal atrial fibrillation ?Rate controlled patient is on systemic anticoagulation with Coumadin INR elevated Coumadin on hold 6. Dyslipidemia -patient is on statin therapy, continued at home dose 7. Chronic kidney disease stage III ?Kidney function at baseline 6. Coronary artery disease ?Stable 7. 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 Hypothyroidism - Patient is on levothyroxine home dose continued 9. Anemia - Secondary to chronic disorder monitoring H&H and transfuse if patient becomes symptomatic or hemoglobin falls below 7 10. DVT prophylaxis ?On Coumadin no need for additional measures 11. Hypertension - Blood pressure controlled, home medications continued with dose adjustment as needed
--- NOTE | 2020-11-26 10:01 | PCM.PN.HOSP ---
Patient Problems: Active and Suspected Problems (Last Reviewed 11/14/20 @ 14:[address] Elo Parham, DO) Acute hypoxemic respiratory failure (Acute) CHF (congestive heart failure) (Acute) Pneumonia (Acute) Acute bilateral COVID-19 pneumonia (Acute) Reason for Visit: Hypoxic respiratory failure Subjective: The patient is a 80-year-old gentleman with recent admission for COVID-19 pneumonia from 11/02/2020 to 11/12/2020 who presented to the emergency department on 11/14/2020 with worsening hypoxemia and shortness of breath -11/24/2020: Patient respiratory status deteriorated resulting in patient being placed on BiPAP. Patient was found to be more lethargic than usual. Held discussion with patient's as well as son regarding patient's condition they both wanted patient to remain full code. Case was further discussed with Dr. Sparrow with intensive care decision was made to transfer patient where patient was intubated. 11/25/2020; patient had to be started on Levophed due to patient being hypotensive. Levophed has since been weaned off. Patient per nursing documentation did well on spontaneous breathing trial. 11/26/2020; patient remains on the vent did well with a weaning trial this morning. Sputum culture so far positive for Klebsiella. Objective: GENERAL: Patient on the vent but easily arousable HEENT: Atraumatic; EYES; Anicteric, Normal Conjunctiva NECK; supple, normal thyroid, RESPIRATORY: Diminished to auscultation CARDIOVASCULAR: Regular S1 S2, GI: soft, normoactive bowel sounds, : No Renal angle tenderness; EXTREMITIES: edema, no clubbing, MUSCULOSKELETAL: no muscle waisting NEURO: Patient on the vent but easily arousable SKIN: No Rash Vitals/I&O's: Vital Signs Temp Pulse Resp BP Pulse Ox 98.2 F 98 24 H 148/64 H 92 11/26/20 04:00 11/26/20 08:00 11/26/20 08:00 11/26/20 08:00 11/26/20 08:00 Oxygen Flow Rate (L/min) 60 Oxygen Delivery Method Mechanical Ventilator Weight: 57.2 kg Body Mass Index (BMI) 24.6 Intake and Output for Last 24 Hours 11/24/20 11/25/20 11/26/20 23:59 23:59 23:59 Intake Total 1900.79 / 1920.49 1305.14 / 1675.14 622.0 / 622.0 Output Total 700 / 700 550 / 750 400 / 400 Balance 1200.79 / 1220.49 755.14 / 925.14 222.0 / 222.0 Microbiology Past 72 Hours 11/24/20 11:15 Sputum, Induced/Lukens Gram Stain - Final 11/24/20 11:15 Sputum, Induced/Lukens Respiratory Culture - Preliminary Klebsiella pneumoniae sp pneum 11/24/20 10:50 Urine Catheter - Mcdowell Legionella Antigen - Final 11/24/20 10:50 Urine Catheter - Mcdowell Streptococcus pneumoniae Antigen (M - Final Laboratory Results 11/24/20 05:30: DANA Screen Negative, BERTHA-1 Antibody Not Reportable, SS-A/Ro IgG Antibody Not Reportable, SS-B/La IgG Antibody Not Reportable, Sm (Landrum) Antibody Not Reportable, DENTAL LABORATORY WORKER Antibody Not Reportable, Scl-70 Scleroderma Ab Not Reportable, Double Strand DNA Ab Not Reportable, Centromere B Antibody Not Reportable 11/25/20 12:15: PT 49.5 H, INR 5.4 H* 11/26/20 04:10: WBC 7.8, RBC 2.93 L, Hgb 8.2 L, Hct 27.0 L, MCV 92.2, MCH 28.0, MCHC 30.4 L, RDW Std Deviation 55.2 H, RDW Coeff of Ej 16.2 H, Plt Count 184, MPV 10.7, Immature Gran % (Auto) 0.800, Neut % (Auto) 92.1 H, Lymph % (Auto) 4.0 L, Hall % (Auto) 3.1, Eos % (Auto) 0.0, Baso % (Auto) 0.0, Absolute Neuts (auto) 7.2, Absolute Lymphs (auto) 0.31 L, Nucleated RBC % 0 11/26/20 04:10: Sodium 149 H, Potassium 3.6, Chloride 112 H, Carbon Dioxide 31.0, Anion Gap 6, BUN 80 H, Creatinine 1.98 H, Estim Creat Clear Calc 22.38, Est GFR (MDRD) Af Amer 42 L, Est GFR (MDRD) Non-Af 35 L, BUN/Creatinine Ratio 40.4 H, Glucose 193 H, Calcium 7.6 L 11/26/20 06:50: PT 51.2 H, INR 5.6 H* Current Medications Acetaminophen (Acetaminophen 650 Mg/20 Ml Udc) 650 mg GT Q6H PRN PRN PRN Reason: Pain Score 1-10/Temp > 100.7 F Albuterol Sulfate (Albuterol 2.5 Mg/3 Ml Vial.Neb.) 2.5 mg INHALATION Q2H PRN PRN PRN Reason: SOB/Wheezing Albuterol/Ipratropium (Ipratropium/Albuterol Sulfate 3 Ml Ampul.Neb) 3 ml INHALATION Q4H.RT [facility] Last Admin: 11/26/20 07:05 Dose: 3 ml Documented by: Atorvastatin Calcium (Atorvastatin Calcium 20 Mg Tablet) 20 mg GT QHS [facility] Last Admin: 11/25/20 21:30 Dose: 20 mg Documented by: Calamine/Phenol (Menthol/Lanolin/Calamine/Znox 113 Gm Tube) 1 applic TOPICAL 0600,2200 [facility]; Protocol Last Admin: 11/26/20 06:18 Dose: 1 applicatio Documented by: Calcium Carbonate (Calcium Carbonate 500 Mg Tablet) 500 mg GT Q6H PRN PRN PRN Reason: HEARTBURN Chlorhexidine Gluconate (Chlorhexidine 15 Ml) 15 ml PO BID [facility] Last Admin: 11/25/20 21:30 Dose: 15 ml Documented by: Chlorhexidine Gluconate (Chlorhexidine Gluc 2% Cloth 1 Each Towelette) 1 each TOPICAL DAILY [facility] Last Admin: 11/25/20 09:09 Dose: 1 each Documented by: Clopidogrel Bisulfate (Clopidogrel Bisulfate 75 Mg Tablet) 75 mg GT DAILY [facility] Last Admin: 11/25/20 09:08 Dose: 75 mg Documented by: Famotidine (Famotidine 20 Mg Tablet) 20 mg GT DAILY [facility] Last Admin: 11/25/20 09:08 Dose: 20 mg Documented by: Ferrous Sulfate (Ferrous Sulfate 300 Mg/5 Ml Udc) 300 mg GT DAILY [facility] Last Admin: 11/25/20 12:09 Dose: 300 mg Documented by: Folic Acid (Folic Acid 1 Mg Tablet) 1 mg GT DAILY [facility] Last Admin: 11/25/20 09:08 Dose: 1 mg Documented by: Guaifenesin (Guaifenesin 10 Ml Udc (200mg/10ml)) 10 ml GT Q4H PRN PRN PRN Reason: COUGH Sodium Chloride () 250 mls @ 15 mls/hr IV .[id number] PRN PRN Reason: Saline Flush Last Infusion: 11/25/20 12:00 Dose: 0 mls/hr Documented by: Piperacillin Sod/Tazobactam (Sod 3.375 gm/ Sodium Chloride) 50 mls @ 12.5 mls/hr IV Q8 [facility] Last Admin: 11/26/20 06:20 Dose: 12.5 mls/hr Documented by: Propofol (Diprivan) 1,000 mg in 100 mls @ 3.498 mls/hr CONT INF .Q12H [facility]; Protocol Last Titration: 11/26/20 06:00 Dose: 0 mcg/kg/min, 0 mls/hr Documented by: Fentanyl Citrate 1,000 mcg/ (Sodium Chloride) 100 mls @ 5 mls/hr CONT INF .Q20H [facility]; Protocol Last Titration: 11/26/20 06:00 Dose: 0 mcg/hr, 0 mls/hr Documented by: Enteral Nutritional Formula (Vital Af 1.2 Vasiliy Liquid) 1,000 mls @ 55 mls/hr GT .[id number] [facility] Last Admin: 11/26/20 06:31 Dose: Not Given Documented by: Levothyroxine Sodium (Levothyroxine 150 Mcg Tablet) 150 mcg GT DAILY [facility] Last Admin: 11/25/20 09:08 Dose: 150 mcg Documented by: Methylprednisolone (Methylprednisolone 40 Mg/Ml Vial) 40 mg IV Q6 [facility] Last Admin: 11/26/20 06:18 Dose: 40 mg Documented by: Nitroglycerin (Nitroglycerin (Inpatient Use) 0.4 Mg Tab.Subl) 0.4 mg SUBLINGUAL Q5M PRN PRN Reason: CARDIAC/CHEST PAIN Ondansetron HCl (Ondansetron 4 Mg/2 Ml Vial) 4 mg IV Q8H PRN PRN PRN Reason: NAUSEA/VOMITING Senna/Docusate Sodium (Senna/Docusate Sodium 1 Tablet) 2 tablet GT BID PRN PRN PRN Reason: Constipation Sodium Chloride (0.9% Saline Lock 10 Ml Syringe) 10 - 40 ml IV UD PRN PRN Reason: SALINE FLUSH Last Admin: 11/26/20 06:54 Dose: 40 ml Documented by: STROKE Vital Signs/Narrative: Vital Signs Pulse Resp BP Pulse Ox 11/26/20 08:00 98 24 H 148/64 H 92 11/26/20 07:05 91 18 94 11/26/20 07:04 101 H 11/26/20 07:00 98 21 H 156/58 H 92 Medical Necessity - Tobacco Use Smoking Status: Former smoker Assessment/Plan All Active Problems (Last Reviewed 11/14/20 @ 14:[address] Elo Parham DO) Acute hypoxemic respiratory failure (Acute) CHF (congestive heart failure) (Acute) Pneumonia (Acute) Acute hypoxic respiratory failure (Acute) Acute bilateral COVID-19 pneumonia (Acute) Abnormal cardiac enzyme level (Resolved) Anticoagulated on Coumadin (Resolved) The patient is a 80-year-old gentleman with recent admission for COVID-19 pneumonia from 11/02/2020 to 11/12/2020 who presented to the emergency department on 11/14/2020 with worsening hypoxemia and shortness of breath 1. Acute hypoxic respiratory failure Due to combination of recent COVID-19 pneumonia and decompensated CHF. Admitted to monitored bed currently being managed with supplemental oxygen via Airvo --11/24/2020: Patient respiratory status deteriorated resulting in patient being placed on BiPAP. Patient was found to be more lethargic than usual. Held discussion with patient's as well as son regarding patient's condition they both wanted patient to remain full code. Case was further discussed with Dr. Sparrow with intensive care decision was made to transfer patient where patient was intubated. -11/25/2020; patient had to be started on Levophed due to patient being hypotensive. Levophed has since been weaned off. Patient per nursing documentation did well on spontaneous breathing trial. 11/26/2020; patient remains on the vent did well with a weaning trial this morning. Sputum culture so far positive for Klebsiella. 2. Aspiration pneumonia ?Patient sputum cultures came back positive for Klebsiella subsequently placed on Zosyn 3. Acute respiratory acidosis ?Due to a combination of decompensated respiratory failure, suspected pulmonary fibrosis and recent COVID-19 pneumonia. Patient respiratory status deteriorated resulting in patient being intubated 4. Recent COVID-19 pneumonia ?Patient was on admission 11/02/2020 to 11/12/2020 who presented to the emergency department on 11/14/2020 with worsening hypoxemia and shortness of breath 5. Acute congestive heart failure with preserved ejection fraction ?Patient has been managed with diuretics 6. Paroxysmal atrial fibrillation ?Rate controlled patient is on systemic anticoagulation with Coumadin INR elevated Coumadin on hold 7. Dyslipidemia -patient is on statin therapy, continued at home dose 8. Chronic kidney disease stage III ?Kidney function at baseline 9. Coronary artery disease ?Stable 10. 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 Hypothyroidism - Patient is on levothyroxine home dose continued 12. Anemia - Secondary to chronic disorder monitoring H&H and transfuse if patient becomes symptomatic or hemoglobin falls below 7 13. Hypertension - Blood pressure controlled, home medications continued with dose adjustment as needed 14. DVT prophylaxis ?On Coumadin no need for additional measures Inpatient E&M: [id number] [facility]
[2020-11-26] MEDS: Famotidine 20 MG Tablet GT (10:13)
[2020-11-26] MEDS: Clopidogrel Bisulfate 75 MG Tablet GT (10:13)
[2020-11-26] MEDS: Folic Acid 1 MG Tablet GT (10:13)
[2020-11-26] MEDS: Ferrous Sulfate 300 MG/5 ML UDC GT (10:13)
[2020-11-26] MEDS: Levothyroxine 150 MCG Tablet GT (10:14)
[2020-11-26] MEDS: Chlorhexidine 15 ML PO ×2 (10:15→19:47)
[2020-11-26] MEDS: CHLORHEXIDINE GLUC 2% CLOTH 1 EACH TOWELETTE TOPICAL (10:15)
[2020-11-26] MEDS: Atorvastatin Calcium 20 MG Tablet GT (22:18)
[2020-11-27] VITALS (41 sets, daily range): BP systolic 115–172; BP diastolic 56–87; PULSE 64–120; RESP 14–95; TEMP 36.3–36.9; O2SAT 87–99
[2020-11-27] MEDS: Ipratropium/Albuterol Sulfate 3 ML AMPUL.NEB INHALATION ×6 (02:20→22:54)
[2020-11-27 03:06] LABS: Cytoplasmic Ab (C-ANCA) <1:20 titer (Neg:<1:20)
[2020-11-27] MEDS: Menthol/Lanolin/Calamine/Znox 113 GM Tube 1 APPLIC TOPICAL ×2 (06:18→20:06)
--- NOTE | 2020-11-27 06:44 | PN_ITS ---
Subjective: The patient was seen and examined at the bedside this morning. Events from the last 24 hours have been reviewed. The patient remains in atrial fibrillation but is hemodynamically stable. The patient did fairly well on his spontaneous breathing trial for a period of time this morning. However, he eventually became increasingly tachypneic and hypoxic. The patient is currently documented to be overall net -3.3 L for the hospital admission. Objective: The patient's most recent lab work, culture data and imaging studies have all been personally reviewed. Stool for occult blood was positive on November 22. Surface echocardiogram revealed normal LV size with an ejection fraction of 55%. Right ventricular systolic pressure was estimated to be 45 mmHg. CTA chest showed no evidence for pulmonary embolism. There was note of a moderate sized hiatal hernia along with diffuse groundglass opacities bilaterally and moderate bilateral pleural effusions with associated atelectasis. General: - - Remains intubated and mechanically ventilated. HEENT: Atraumatic, PERRLA, Normocephalic Oral: No Gingival or Mucosal Lesions/ Ulcerations, - - Endotracheal and OG tubes remain in place. Neck: Supple, No Nodes, Trachea Midline, - - Stable triple-lumen catheter Lungs: No rhonchi, No wheeze, No rales, Diminished Cardiovascular: Normal S1, Normal S2, Irregular Rate, Tachycardic Abdomen: Bowel Sounds Present, Soft, Non Tender Extremities: No clubbing, No cyanosis, Edema Skin: - - No significant change from previous. Musculoskeletal: No Tenderness to Palpation of Joints or Extremities Lymphatic: No Cervical, Supraclavicular, or Inguinal Adenopathy Neurological: - - No focal neurological deficits. The patient is alert and able to follow simple commands. Vital Signs Temp Pulse Resp BP Pulse Ox 97.8 F 113 H 22 H 164/68 H 87 11/27/20 04:00 11/27/20 06:00 11/27/20 06:00 11/27/20 06:00 11/27/20 06:00 Oxygen Flow Rate (L/min) 60 Oxygen Delivery Method Mechanical Ventilator Weight: 131 lb 6.4 oz Body Mass Index (BMI) 24.6 Intake and Output for Last 24 Hours 11/25/20 11/26/20 11/27/20 23:59 23:59 23:59 Intake Total 1305.14 / 1675.14 1022.0 / 1097.0 1079.75 / 1079.75 Output Total 550 / 750 1500 / 1500 250 / 250 Balance 755.14 / 925.14 -478.0 / -403.0 829.75 / 829.75 Labs (Last 48 Hours) 11/24/20 11/25/20 11/25/20 05:30 06:40 06:40 WBC 9.5 RBC 2.97 L Hgb 8.3 L Hct 27.6 L MCV 92.9 MCH 27.9 MCHC 30.1 L RDW Std Deviation 55.6 H RDW Coeff of Ej 16.3 H Plt Count 175 MPV 10.1 Immature Gran % (Auto) 1.300 H Neut % (Auto) 92.7 H Lymph % (Auto) 4.1 L Bent % (Auto) 1.9 Eos % (Auto) 0.0 Baso % (Auto) 0.0 Absolute Neuts (auto) 8.8 H Absolute Lymphs (auto) 0.39 L Nucleated RBC % 0 Differential Comment SCANNED Hypochromasia RARE PT INR Specimen Type Sample Site pH Bicarbonate Actual Total CO2 Base Excess O2 Saturation O2 % ABG pCO2 ABG pO2 Ramon Test Respiration Rate O2 Delivery Device Vent Mode Tidal Volume POC PEEP Sodium Potassium Chloride Carbon Dioxide Anion Gap BUN Creatinine Estim Creat Clear Calc Est GFR (MDRD) Af Amer Est GFR (MDRD) Non-Af BUN/Creatinine Ratio Glucose Calcium Total Bilirubin AST ALT Alkaline Phosphatase Total Protein Albumin Globulin Albumin/Globulin Ratio Cycl Citrul Peptide IgG Pending DANA Screen Negative c-ANCA Antibody Pending p-ANCA Antibody Pending BERTHA-1 Antibody Not Reportable SS-A/Ro IgG Antibody Not Reportable SS-B/La IgG Antibody Not Reportable Sm (Landrum) Antibody Not Reportable [employer]MENT TECHNICIAN Antibody Not Reportable Scl-70 Scleroderma Ab Not Reportable Double Strand DNA Ab Not Reportable Centromere B Antibody Not Reportable 11/25/20 11/25/20 11/25/20 06:40 07:37 12:15 WBC RBC Hgb Hct MCV MCH MCHC RDW Std Deviation RDW Coeff of Ej Plt Count MPV Immature Gran % (Auto) Neut % (Auto) Lymph % (Auto) Bent % (Auto) Eos % (Auto) Baso % (Auto) Absolute Neuts (auto) Absolute Lymphs (auto) Nucleated RBC % Differential Comment Hypochromasia PT 49.5 H INR 5.4 H* Specimen Type ART Sample Site L Radial pH 7.34 L Bicarbonate Actual 30.5 H Total CO2 32 Base Excess 5 H O2 Saturation 91 L O2 % 45 ABG pCO2 56.0 H ABG pO2 65 L Ramon Test Positive Respiration Rate 14 O2 Delivery Device Adult Vent Vent Mode AC Tidal Volume 450 POC PEEP 5 Sodium 148 H Potassium 4.1 Chloride 112 H Carbon Dioxide 30.0 Anion Gap 6 BUN 73 H Creatinine 1.93 H Estim Creat Clear Calc 22.96 Est GFR (MDRD) Af Amer 43 L Est GFR (MDRD) Non-Af 36 L BUN/Creatinine Ratio 37.8 H Glucose 128 H Calcium 7.9 L Total Bilirubin 0.70 AST 16 ALT 19 Alkaline Phosphatase 91 Total Protein 5.3 L Albumin 1.8 L Globulin 3.5 Albumin/Globulin Ratio 0.5 L Cycl Citrul Peptide IgG DANA Screen c-ANCA Antibody p-ANCA Antibody BERTHA-1 Antibody SS-A/Ro IgG Antibody SS-B/La IgG Antibody Sm (Landrum) Antibody AUT[employer]AT[employer] EQUIPMENT TECHNICIAN Antibody Scl-70 Scleroderma Ab Double Strand DNA Ab Centromere B Antibody 11/26/20 11/26/20 11/26/20 04:10 04:10 06:50 WBC 7.8 RBC 2.93 L Hgb 8.2 L Hct 27.0 L MCV 92.2 MCH 28.0 MCHC 30.4 L RDW Std Deviation 55.2 H RDW Coeff of Ej 16.2 H Plt Count 184 MPV 10.7 Immature Gran % (Auto) 0.800 Neut % (Auto) 92.1 H Lymph % (Auto) 4.0 L Bent % (Auto) 3.1 Eos % (Auto) 0.0 Baso % (Auto) 0.0 Absolute Neuts (auto) 7.2 Absolute Lymphs (auto) 0.31 L Nucleated RBC % 0 Differential Comment Hypochromasia PT 51.2 H INR 5.6 H* Specimen Type Sample Site pH Bicarbonate Actual Total CO2 Base Excess O2 Saturation O2 % ABG pCO2 ABG pO2 Ramon Test Respiration Rate O2 Delivery Device Vent Mode Tidal Volume POC PEEP Sodium 149 H Potassium 3.6 Chloride 112 H Carbon Dioxide 31.0 Anion Gap 6 BUN 80 H Creatinine 1.98 H Estim Creat Clear Calc 22.38 Est GFR (MDRD) Af Amer 42 L Est GFR (MDRD) Non-Af 35 L BUN/Creatinine Ratio 40.4 H Glucose 193 H Calcium 7.6 L Total Bilirubin AST ALT Alkaline Phosphatase Total Protein Albumin Globulin Albumin/Globulin Ratio Cycl Citrul Peptide IgG DANA Screen c-ANCA Antibody p-ANCA Antibody BERTHA-1 Antibody SS-A/Ro IgG Antibody SS-B/La IgG Antibody Sm (Landrum) Antibody AUT[employer]AT[employer] EQUIPMENT TECHNICIAN Antibody Scl-70 Scleroderma Ab Double Strand DNA Ab Centromere B Antibody Microbiology 11/24/20 11:15 Sputum, Induced/Lukens Gram Stain - Final 11/24/20 11:15 Sputum, Induced/Lukens Respiratory Culture - Preliminary Klebsiella pneumoniae sp pneum Clinical Impression(s) from Imaging Studies Chest X-Ray 11/14/20 10:35 IMPRESSION: No change in severe congestive heart failure. Electronically Signed: Caleb Hinds MD at 11:15 EST Tel , Service support , Chest CTA 11/14/20 11:14 IMPRESSION: 1. No CT evidence of pulmonary embolism. 2. Bilateral pneumonia, pulmonary edema, or ARDS. 3. Moderate bilateral pleural effusions. Electronically Signed: Caleb Hinds MD at 12:24 EST Tel , Service support , Chest X-Ray 11/15/20 05:55 IMPRESSION: No change in bilateral pneumonia. Electronically Signed: Caleb Hinds MD at 7:22 EST Tel , Service support , Chest X-Ray 11/20/20 05:40 IMPRESSION: Progressive infiltration in both lungs worse in the peripheral aspect of the left hemithorax. Electronically Signed: Milan Cao MD at 8:03 EST , Service support , Chest CTA 11/22/20 08:15 IMPRESSION: 1. No CT evidence of pulmonary embolism. 2. Worsening bilateral pneumonia, pulmonary edema, or ARDS. 3. No change in moderate bilateral pleural effusions with bibasilar atelectasis. Electronically Signed: Caleb Hinds MD at 9:41 EST Tel , Service support , Chest X-Ray 11/24/20 10:06 IMPRESSION: The tip of the endotracheal tube is at 4.3 cm proximal to the chrissy. The tip of the orogastric tube is in the body of the stomach. Improved aeration of both lungs with residual infiltrates in both lungs. I suspect mild degree of superimposed CHF. Electronically Signed: Milan Cao MD at 10:51 EST , Service support , Chest X-Ray 11/25/20 06:42 IMPRESSION: The support tubes are unchanged. Mild degree of improved aeration of both lungs. Electronically Signed: Milan Cao MD at 9:11 EST , Service support , Medical Necessity - Tobacco Use Smoking Status: Former smoker Assessment/Plan All Active Problems (Last Reviewed 11/14/20 @ 14:[address] Elo Parham, DO) Acute hypoxemic respiratory failure (Acute) CHF (congestive heart failure) (Acute) Pneumonia (Acute) Acute hypoxic respiratory failure (Acute) Acute bilateral COVID-19 pneumonia (Acute) Abnormal cardiac enzyme level (Resolved) Anticoagulated on Coumadin (Resolved) RECOMMENDATIONS: 1. Continue to wean FiO2 as tolerated to maintain saturations at or above 90%. 2. Continue antibiotics. 3. Continue bronchodilators and IV steroids. 4. Continue tube feeds as tolerated. 5. Continue to hold Coumadin given supratherapeutic INR. 6. Continue appropriate GI prophylaxis. 7. Plan for repeat spontaneous awakening and breathing trial tomorrow morning. IMPRESSIONS: 1. Acute hypoxic and hypercarbic respiratory failure The patient was recently admitted to the hospital with respiratory failure secondary to COVID-19 pneumonia and was only home for approximately 2 days prior to returning to the hospital with worsening shortness of breath and hypoxemia. The patient's CTA showed no evidence for PE and looked similar in appearance when compared to prior imaging studies from his last hospitalization, with the exception of some increased groundglass and pleural effusions. The patient was admitted to the hospital and placed on BiPAP and scheduled IV diuretic therapy. I am concerned that the patient likely has some underlying, baseline chronic lung disease as well. Although the patient initially showed some improvement, he later decompensated from a respiratory perspective and required transfer to the ICU and subsequent intubation on November 24. Over concerns for possible postinflammatory pulmonary fibrosis or underlying, chronic steroid responsive interstitial lung process, the patient was started on IV steroids. In addition, over concerns for possible pulmonary toxicity related to amiodarone use, the aforementioned medication was discontinued. The patient will be continued on assist control mode of mechanical ventilation with plans to wean FiO2 to maintain saturations at or above 90%. Empiric antimicrobials will also be continued, pending further culture results. 2. Encephalopathy Improved. [place] to be secondary to acute CO2 narcosis. With invasive mechanical ventilatory support, the patient's acid-base status has improved. We will plan to continue current sedation regimen with a goal to maintain a RASS of -1 to +1. 3. Acute kidney injury Likely prerenal in etiology with a component of ischemic ATN likely, given hemodynamic instability noted yesterday. The patient, did for period of time, require vasopressor support. However, the patient has been weaned from Levophed at this time. We will continue to monitor creatinine and urine output for now. No current indication for renal replacement therapy. Continue to hold diuretics. 4. Chronic diastolic CHF/history of ascending aortic dissection status post repair/paroxysmal A. fib/hypertensive urgency The patient presented to the hospital with what appeared to be a CHF exacerbation. Although the patient was treated with diuretics and maintained on noninvasive positive pressure ventilatory support, his oxygen status remains quite tenuous, only to later require intubation. Diuretics have subsequently been placed on hold due to the development of DIONI. 5. CKD stage III/chronic anemia/hypothyroidism/advanced age Complicates care, management, recovery and prognosis. Continue home medications as indicated. TIME: 35 minutes of critical care time, inclusive of procedures, was spent addressing the patient's acute on chronic respiratory failure, hypercarbic encephalopathy, distributive shock, congestive heart failure, review of all data and collaboration with the care team. ([id number]) [phone]: [id number] Critical care first hour
[2020-11-27 06:51] LABS: Absolute Lymphocyte Count 0.23 X10^3/uL (0.83-4.51); Absolute Neutrophil Count 5.1 X10^3/uL (2.0-7.7); Hematocrit 27.4 % (40-54); Hemoglobin 8.4 g/dL (13.0-16.5); Lymphocyte # 0.23 X10^3/ul (4.0); Lymphocyte % 3.9 % (19-41); Mean Corp Hgb Conc 30.7 g/dL (32-36); Mean Corpuscular Hgb 28.5 pg (27.0-32.0); Mean Corpuscular Volume 92.9 fL (80-94); Mean Platelet Vol. 10.3 fl (6.2-12.0); Monocyte# 0.61 X10^3/uL; Monocyte% 10.2 % (0-10); NRBC Flagged by Analyzer 0 % (0-5); Neutrophil # 5.09 X10^3/uL (2.7-7.7); Neutrophil % 85.2 % (47-70); POSITIVE DIFFERENTIAL YES; Platelet Count 228 K/mm3 (150-450); RBC Distribution Width CV 16.2 % (11.6-14.6); RBC Distribution Width SD 55.6 fl (35.1-43.9); Red Blood Count 2.95 M/mm3 (4.6-6.2)
[2020-11-27 06:53] LABS: Differential Indicated SCAN CRITERIA MET
[2020-11-27 06:57] LABS: International Normalized Ratio 4.2; Prothrombin Time (Protime)PT. 40.8 SECONDS (11.7-14.9)
[2020-11-27 07:00] LABS: BUN 79 mg/dL (7-18); BUN/Creat Ratio 45.7 RATIO (10-20); Calcium,Total 7.7 mg/dL (8.5-10.1); Creatinine, Serum 1.73 mg/dL (0.70-1.30); EST Glomerular Filtration Rate 41 mL/min (>60); Est Glom Filt Rate - Afr Amer 49 mL/min (>60); Estimated Creatinine Clearance 25.61 ml/min; Glucose 202 mg/dL (74-106); Sodium Level 151 mmol/L (136-145)
[2020-11-27 07:01] LABS: Anion Gap 2 (5-15); Chloride 115 mmol/L (98-107); Potassium 3.3 mmol/L (3.5-5.1)
--- NOTE | 2020-11-27 07:25 | PCM.PN.HOSP ---
Patient Problems: Active and Suspected Problems (Last Reviewed 11/14/20 @ 14:[address] Elo Parham, DO) Acute hypoxemic respiratory failure (Acute) CHF (congestive heart failure) (Acute) Pneumonia (Acute) Acute bilateral COVID-19 pneumonia (Acute) Reason for Visit: Hypoxic respiratory failure Subjective: The patient is a 80-year-old gentleman with recent admission for COVID-19 pneumonia from 11/02/2020 to 11/12/2020 who presented to the emergency department on 11/14/2020 with worsening hypoxemia and shortness of breath -11/24/2020: Patient respiratory status deteriorated resulting in patient being placed on BiPAP. Patient was found to be more lethargic than usual. Held discussion with patient's as well as son regarding patient's condition they both wanted patient to remain full code. Case was further discussed with Dr. Sparrow with intensive care decision was made to transfer patient where patient was intubated. 11/25/2020; patient had to be started on Levophed due to patient being hypotensive. Levophed has since been weaned off. Patient per nursing documentation did well on spontaneous breathing trial. 11/26/2020; patient remains on the vent did well with a weaning trial this morning. Sputum culture so far positive for Klebsiella. ?11/27/2020; patient seen remains awake on the vent. Attempts at weaning this morning was unsuccessful. Objective: GENERAL: Patient on the vent but easily arousable HEENT: Atraumatic; EYES; Anicteric, Normal Conjunctiva NECK; supple, normal thyroid, RESPIRATORY: Diminished to auscultation CARDIOVASCULAR: Regular S1 S2, GI: soft, normoactive bowel sounds, : No Renal angle tenderness; EXTREMITIES: edema, no clubbing, MUSCULOSKELETAL: no muscle waisting NEURO: Patient on the vent but easily arousable SKIN: No Rash Vitals/I&O's: Vital Signs Temp Pulse Resp BP Pulse Ox 97.8 F 106 H 19 H 164/68 H 91 11/27/20 04:00 11/27/20 07:17 11/27/20 07:17 11/27/20 06:00 11/27/20 07:17 Oxygen Flow Rate (L/min) 60 Oxygen Delivery Method Mechanical Ventilator Weight: 59.602 kg Body Mass Index (BMI) 24.6 Intake and Output for Last 24 Hours 11/25/20 11/26/20 11/27/20 23:59 23:59 23:59 Intake Total 1305.14 / 1675.14 1022.0 / 1097.0 1081.00 / 1081.00 Output Total 550 / 750 1500 / 1500 250 / 250 Balance 755.14 / 925.14 -478.0 / -403.0 831.00 / 831.00 Microbiology Past 72 Hours 11/24/20 11:15 Sputum, Induced/Lukens Gram Stain - Final 11/24/20 11:15 Sputum, Induced/Lukens Respiratory Culture - Preliminary Klebsiella pneumoniae sp pneum 11/24/20 10:50 Urine Catheter - Mcdowell Legionella Antigen - Final 11/24/20 10:50 Urine Catheter - [place]cdowell Streptococcus pneumoniae Antigen (M - Final Laboratory Results 11/27/20 04:25: WBC 6.0, RBC 2.95 L, Hgb 8.4 L, Hct 27.4 L, MCV 92.9, MCH 28.5, MCHC 30.7 L, RDW Std Deviation 55.6 H, RDW Coeff of Ej 16.2 H, Plt Count 228, MPV 10.3, Immature Gran % (Auto) 0.700, Neut % (Auto) 85.2 H, Lymph % (Auto) 3.9 L, [place] % (Auto) 10.2 H, Eos % (Auto) 0.0, Baso % (Auto) 0.0, Absolute Neuts (auto) 5.1, Absolute Lymphs (auto) 0.23 L, Nucleated RBC % 0 11/27/20 04:25: PT 40.8 H, INR 4.2 H* 11/27/20 04:25: Sodium 151 H, Potassium 3.3 L, Chloride 115 H, Carbon Dioxide 34.0 H, Anion Gap 2 L, BUN 79 H, Creatinine 1.73 H, Estim Creat Clear Calc 25.61, Est GFR (MDRD) Af Amer 49 L, Est GFR (MDRD) Non-Af 41 L, BUN/Creatinine Ratio 45.7 H, Glucose 202 H, Calcium 7.7 L Current Medications Acetaminophen (Acetaminophen 650 Mg/20 Ml Udc) 650 mg GT Q6H PRN PRN PRN Reason: Pain Score 1-10/Temp > 100.7 F Albuterol Sulfate (Albuterol 2.5 Mg/3 Ml Vial.Neb.) 2.5 mg INHALATION Q2H PRN PRN PRN Reason: SOB/Wheezing Albuterol/Ipratropium (Ipratropium/Albuterol Sulfate 3 Ml Ampul.Neb) 3 ml INHALATION Q4H.RT [facility] Last Admin: 11/27/20 07:07 Dose: 3 ml Documented by: Atorvastatin Calcium (Atorvastatin Calcium 20 Mg Tablet) 20 mg GT QHS [facility] Last Admin: 11/26/20 22:18 Dose: 20 mg Documented by: Calamine/Phenol (Menthol/Lanolin/Calamine/Znox 113 Gm Tube) 1 applic TOPICAL 0600,2200 [facility]; Protocol Last Admin: 11/27/20 06:18 Dose: 1 applicatio Documented by: Calcium Carbonate (Calcium Carbonate 500 Mg Tablet) 500 mg GT Q6H PRN PRN PRN Reason: HEARTBURN Chlorhexidine Gluconate (Chlorhexidine 15 Ml) 15 ml PO BID [facility] Last Admin: 11/26/20 19:47 Dose: 15 ml Documented by: Chlorhexidine Gluconate (Chlorhexidine Gluc 2% Cloth 1 Each Towelette) 1 each TOPICAL DAILY [facility] Last Admin: 11/26/20 10:15 Dose: 1 each Documented by: Clopidogrel Bisulfate (Clopidogrel Bisulfate 75 Mg Tablet) 75 mg GT DAILY [facility] Last Admin: 11/26/20 10:13 Dose: 75 mg Documented by: Famotidine (Famotidine 20 Mg Tablet) 20 mg GT DAILY [facility] Last Admin: 11/26/20 10:13 Dose: 20 mg Documented by: Ferrous Sulfate (Ferrous Sulfate 300 Mg/5 Ml Udc) 300 mg GT DAILY [facility] Last Admin: 11/26/20 10:13 Dose: 300 mg Documented by: Folic Acid (Folic Acid 1 Mg Tablet) 1 mg GT DAILY [facility] Last Admin: 11/26/20 10:13 Dose: 1 mg Documented by: Guaifenesin (Guaifenesin 10 Ml Udc (200mg/10ml)) 10 ml GT Q4H PRN PRN PRN Reason: COUGH Sodium Chloride () 250 mls @ 15 mls/hr IV .[id number] PRN PRN Reason: Saline Flush Last Infusion: 11/26/20 16:38 Dose: Infused Documented by: Piperacillin Sod/Tazobactam (Sod 3.375 gm/ Sodium Chloride) 50 mls @ 12.5 mls/hr IV Q8 [facility] Last Admin: 11/27/20 06:16 Dose: 12.5 mls/hr Documented by: Propofol (Diprivan) 1,000 mg in 100 mls @ 3.498 mls/hr CONT INF .Q12H [facility]; Protocol Last Admin: 11/26/20 22:36 Dose: Not Given Documented by: Fentanyl Citrate 1,000 mcg/ (Sodium Chloride) 100 mls @ 5 mls/hr CONT INF .Q20H [facility]; Protocol Last Titration: 11/27/20 07:00 Dose: 25 mcg/hr, 2.5 mls/hr Documented by: Enteral Nutritional Formula (Vital Af 1.2 Vasiliy Liquid) 1,000 mls @ 55 mls/hr GT .[id number] [facility] Last Admin: 11/27/20 04:31 Dose: Not Given Documented by: Levothyroxine Sodium (Levothyroxine 150 Mcg Tablet) 150 mcg GT DAILY [facility] Last Admin: 11/26/20 10:14 Dose: 150 mcg Documented by: Methylprednisolone (Methylprednisolone 40 Mg/Ml Vial) 40 mg IV Q6 [facility] Last Admin: 11/27/20 06:17 Dose: 40 mg Documented by: Nitroglycerin (Nitroglycerin (Inpatient Use) 0.4 Mg Tab.Subl) 0.4 mg SUBLINGUAL Q5M PRN PRN Reason: CARDIAC/CHEST PAIN Ondansetron HCl (Ondansetron 4 Mg/2 Ml Vial) 4 mg IV Q8H PRN PRN PRN Reason: NAUSEA/VOMITING Senna/Docusate Sodium (Senna/Docusate Sodium 1 Tablet) 2 tablet GT BID PRN PRN PRN Reason: Constipation Sodium Chloride (0.9% Saline Lock 10 Ml Syringe) 10 - 40 ml IV UD PRN PRN Reason: SALINE FLUSH Last Admin: 11/26/20 23:53 Dose: 30 ml Documented by: STROKE Vital Signs/Narrative: Vital Signs Temp Pulse Resp BP Pulse Ox 11/27/20 07:17 105 H 19 H 91 11/27/20 06:00 113 H 22 H 164/68 H 87 11/27/20 05:03 21 H 11/27/20 05:01 106 H 21 H 92 11/27/20 05:00 104 H 19 H 162/79 H 90 11/27/20 04:00 97.8 F 93 18 149/59 H 93 Medical Necessity - Tobacco Use Smoking Status: Former smoker Assessment/Plan All Active Problems (Last Reviewed 11/14/20 @ 14:[address] Elo Parham DO) Acute hypoxemic respiratory failure (Acute) CHF (congestive heart failure) (Acute) Pneumonia (Acute) Acute hypoxic respiratory failure (Acute) Acute bilateral COVID-19 pneumonia (Acute) Abnormal cardiac enzyme level (Resolved) Anticoagulated on Coumadin (Resolved) The patient is a 80-year-old gentleman with recent admission for COVID-19 pneumonia from 11/02/2020 to 11/12/2020 who presented to the emergency department on 11/14/2020 with worsening hypoxemia and shortness of breath 1. Acute hypoxic respiratory failure Due to combination of recent COVID-19 pneumonia and decompensated CHF. Admitted to monitored bed currently being managed with supplemental oxygen via [employer] --11/24/2020: Patient respiratory status deteriorated resulting in patient being placed on BiPAP. Patient was found to be more lethargic than usual. Held discussion with patient's as well as son regarding patient's condition they both wanted patient to remain full code. Case was further discussed with Dr. Sparrow with intensive care decision was made to transfer patient where patient was intubated. -11/25/2020; patient had to be started on Levophed due to patient being hypotensive. Levophed has since been weaned off. Patient per nursing documentation did well on spontaneous breathing trial. 11/26/2020; patient remains on the vent did well with a weaning trial this morning. Sputum culture so far positive for Klebsiella. ?11/27/2020; patient seen remains awake on the vent. Attempts at weaning this morning was unsuccessful. 2. Aspiration pneumonia ?Patient sputum cultures came back positive for Klebsiella subsequently placed on Zosyn 3. Acute respiratory acidosis ?Due to a combination of decompensated respiratory failure, suspected pulmonary fibrosis and recent COVID-19 pneumonia. Patient respiratory status deteriorated resulting in patient being intubated 4. Recent COVID-19 pneumonia ?Patient was on admission 11/02/2020 to 11/12/2020 who presented to the emergency department on 11/14/2020 with worsening hypoxemia and shortness of breath 5. Acute congestive heart failure with preserved ejection fraction ?Patient has been managed with diuretics 6. Paroxysmal atrial fibrillation ?Rate controlled patient is on systemic anticoagulation with Coumadin INR elevated Coumadin on hold 7. Dyslipidemia -patient is on statin therapy, continued at home dose 8. Chronic kidney disease stage III ?Kidney function at baseline 9. Coronary artery disease ?Stable 10. 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 Hypothyroidism - Patient is on levothyroxine home dose continued 12. Anemia - Secondary to chronic disorder monitoring H&H and transfuse if patient becomes symptomatic or hemoglobin falls below 7 13. Hypertension - Blood pressure controlled, home medications continued with dose adjustment as needed 14. DVT prophylaxis ?On Coumadin no need for additional measures Inpatient E&M: [id number] [facility]
[2020-11-27] MEDS: Chlorhexidine 15 ML PO ×2 (09:29→20:06)
[2020-11-27] MEDS: CHLORHEXIDINE GLUC 2% CLOTH 1 EACH TOWELETTE TOPICAL (09:29)
[2020-11-27] MEDS: Folic Acid 1 MG Tablet GT (10:34)
[2020-11-27] MEDS: Clopidogrel Bisulfate 75 MG Tablet GT (10:34)
[2020-11-27] MEDS: Famotidine 20 MG Tablet GT (10:34)
[2020-11-27] MEDS: Levothyroxine 150 MCG Tablet GT (10:34)
[2020-11-27] MEDS: Ferrous Sulfate 300 MG/5 ML UDC GT (10:34)
[2020-11-27 12:28] LABS: CCP IgG Antibodies 7 units (0-19); Perinuclear Ab (P-ANCA) <1:20 titer (Neg:<1:20)
[2020-11-27] MEDS: Albuterol 2.5 MG/3 ML VIAL.NEB. INHALATION (13:39)
[2020-11-27] MEDS: Vital AF 1.2 Cal Liquid 1,000 ML 55 ML GT (16:21)
[2020-11-27] MEDS: Atorvastatin Calcium 20 MG Tablet GT (20:07)
[2020-11-28] VITALS (41 sets, daily range): BP systolic 116–189; BP diastolic 48–85; PULSE 89–121; RESP 11–26; TEMP 36.4–36.6; O2SAT 90–100
[2020-11-28] MEDS: Ipratropium/Albuterol Sulfate 3 ML AMPUL.NEB INHALATION ×4 (02:06→18:55)
[2020-11-28] MEDS: Metoprolol Tartrate 5 MG/5 ML Vial IV (02:59)
--- NOTE | 2020-11-28 06:12 | PN_ITS ---
Subjective: The patient was seen and examined at the bedside this morning. Events from the last 24 hours have been reviewed. The patient is currently afebrile, hemodynamically stable and maintaining appropriate oxygen saturations on spontaneous mode of mechanical ventilation with an FiO2 requirement of 45%. The patient has done well this morning with his spontaneous breathing trial. The patient is currently documented to be overall net -2.5 L for the hospital admission. The patient is alert this morning and able to follow commands. I did once again discussed with the patient that per our prior conversation, including that with his , the plan was to proceed with a trial of extubation without plans for reintubation, if he does not do well. The patient did shake his head yes that he was in agreement with the aforementioned plan. Therefore, the patient's CODE STATUS was updated according to my conversation with the patient and his to DNR CCA without intubation. Objective: The patient's most recent lab work, culture data and imaging studies have all been personally reviewed. Stool for occult blood was positive on November 22. Surface echocardiogram revealed normal LV size with an ejection fraction of 55%. Right ventricular systolic pressure was estimated to be 45 mmHg. CTA chest showed no evidence for pulmonary embolism. There was note of a moderate sized hiatal hernia along with diffuse groundglass opacities bilaterally and moderate bilateral pleural effusions with associated atelectasis. Sputum culture dated November 24 was positive for Klebsiella pneumoniae. General: Alert, No apparent distress, - - Remains intubated and is currently tolerating spontaneous mode of mechanical ventilation. HEENT: Atraumatic, PERRLA, Normocephalic Oral: Moist Mucosa, - - Stable endotracheal and OG tubes. Neck: Supple, No Nodes, Trachea Midline, - - Central venous catheter remains in place Lungs: No rhonchi, No wheeze, Diminished, Rales Cardiovascular: Normal S1, Normal S2, Irregular Rate, Murmur Abdomen: Bowel Sounds Present, Soft, Non Tender Extremities: No clubbing, No cyanosis, Edema Skin: - - No significant change from previous Musculoskeletal: No Tenderness to Palpation of Joints or Extremities Lymphatic: No Cervical, Supraclavicular, or Inguinal Adenopathy Neurological: - - No focal neurological deficits. Alert and following commands appropriately. Vital Signs Temp Pulse Resp BP Pulse Ox 97.7 F L 92 17 145/49 H 96 11/28/20 04:00 11/28/20 05:04 11/28/20 05:04 11/28/20 05:00 11/28/20 05:04 Oxygen Flow Rate (L/min) 60 Oxygen Delivery Method Mechanical Ventilator Weight: 130 lb 3.2 oz Body Mass Index (BMI) 24.6 Intake and Output for Last 24 Hours 11/26/20 11/27/20 11/28/20 23:59 23:59 23:59 Intake Total 1022.0 / 1097.0 3198.50 / 3203.50 178.17 / 178.17 Output Total 1500 / 1500 1725 / 1725 Balance -478.0 / -403.0 1473.50 / 1478.50 178.17 / 178.17 Labs (Last 48 Hours) 11/25/20 11/26/20 11/26/20 06:40 04:10 04:10 WBC 7.8 RBC 2.93 L Hgb 8.2 L Hct 27.0 L MCV 92.2 MCH 28.0 MCHC 30.4 L RDW Std Deviation 55.2 H RDW Coeff of Ej 16.2 H Plt Count 184 MPV 10.7 Immature Gran % (Auto) 0.800 Neut % (Auto) 92.1 H Lymph % (Auto) 4.0 L [place] % (Auto) 3.1 Eos % (Auto) 0.0 Baso % (Auto) 0.0 Absolute Neuts (auto) 7.2 Absolute Lymphs (auto) 0.31 L Nucleated RBC % 0 PT INR Sodium 149 H Potassium 3.6 Chloride 112 H Carbon Dioxide 31.0 Anion Gap 6 BUN 80 H Creatinine 1.98 H Estim Creat Clear Calc 22.38 Est GFR (MDRD) Af Amer 42 L Est GFR (MDRD) Non-Af 35 L BUN/Creatinine Ratio 40.4 H Glucose 193 H Calcium 7.6 L Cycl Citrul Peptide IgG 7 c-ANCA Antibody <1:20 Atypical p-ANCA <1:20 p-ANCA Antibody <1:20 11/26/20 11/27/20 11/27/20 06:50 04:25 04:25 WBC 6.0 RBC 2.95 L Hgb 8.4 L Hct 27.4 L MCV 92.9 MCH 28.5 MCHC 30.7 L RDW Std Deviation 55.6 H RDW Coeff of Ej 16.2 H Plt Count 228 MPV 10.3 Immature Gran % (Auto) 0.700 Neut % (Auto) 85.2 H Lymph % (Auto) 3.9 L [place] % (Auto) 10.2 H Eos % (Auto) 0.0 Baso % (Auto) 0.0 Absolute Neuts (auto) 5.1 Absolute Lymphs (auto) 0.23 L Nucleated RBC % 0 PT 51.2 H 40.8 H INR 5.6 H* 4.2 H* Sodium Potassium Chloride Carbon Dioxide Anion Gap BUN Creatinine Estim Creat Clear Calc Est GFR (MDRD) Af Amer Est GFR (MDRD) Non-Af BUN/Creatinine Ratio Glucose Calcium Cycl Citrul Peptide IgG c-ANCA Antibody Atypical p-ANCA p-ANCA Antibody 11/27/20 04:25 WBC RBC Hgb Hct MCV MCH MCHC RDW Std Deviation RDW Coeff of Ej Plt Count MPV Immature Gran % (Auto) Neut % (Auto) Lymph % (Auto) [place] % (Auto) Eos % (Auto) Baso % (Auto) Absolute Neuts (auto) Absolute Lymphs (auto) Nucleated RBC % PT INR Sodium 151 H Potassium 3.3 L Chloride 115 H Carbon Dioxide 34.0 H Anion Gap 2 L BUN 79 H Creatinine 1.73 H Estim Creat Clear Calc 25.61 Est GFR (MDRD) Af Amer 49 L Est GFR (MDRD) Non-Af 41 L BUN/Creatinine Ratio 45.7 H Glucose 202 H Calcium 7.7 L Cycl Citrul Peptide IgG c-ANCA Antibody Atypical p-ANCA p-ANCA Antibody Microbiology 11/24/20 11:15 Sputum, Induced/Lukens Gram Stain - Final 11/24/20 11:15 Sputum, Induced/Lukens Respiratory Culture - Preliminary Klebsiella pneumoniae sp pneum Clinical Impression(s) from Imaging Studies Chest X-Ray 11/14/20 10:35 IMPRESSION: No change in severe congestive heart failure. Electronically Signed: Caleb Hinds MD at 11:15 EST Tel , Service support , Chest CTA 11/14/20 11:14 IMPRESSION: 1. No CT evidence of pulmonary embolism. 2. Bilateral pneumonia, pulmonary edema, or ARDS. 3. Moderate bilateral pleural effusions. Electronically Signed: Caleb Hinds MD at 12:24 EST Tel , Service support , Chest X-Ray 11/15/20 05:55 IMPRESSION: No change in bilateral pneumonia. Electronically Signed: Caleb Hinds MD at 7:22 EST Tel , Service support , Chest X-Ray 11/20/20 05:40 IMPRESSION: Progressive infiltration in both lungs worse in the peripheral aspect of the left hemithorax. Electronically Signed: Milan Cao MD at 8:03 EST , Service support , Chest CTA 11/22/20 08:15 IMPRESSION: 1. No CT evidence of pulmonary embolism. 2. Worsening bilateral pneumonia, pulmonary edema, or ARDS. 3. No change in moderate bilateral pleural effusions with bibasilar atelectasis. Electronically Signed: Caleb Hinds MD at 9:41 EST Tel , Service support , Chest X-Ray 11/24/20 10:06 IMPRESSION: The tip of the endotracheal tube is at 4.3 cm proximal to the chrissy. The tip of the orogastric tube is in the body of the stomach. Improved aeration of both lungs with residual infiltrates in both lungs. I suspect mild degree of superimposed CHF. Electronically Signed: Milan Cao MD at 10:51 EST , Service support , Chest X-Ray 11/25/20 06:42 IMPRESSION: The support tubes are unchanged. Mild degree of improved aeration of both lungs. Electronically Signed: Milan Cao MD at 9:11 EST , Service support , Medical Necessity - Tobacco Use Smoking Status: Former smoker Assessment/Plan All Active Problems (Last Reviewed 11/14/20 @ 14:[address] Elo Parham, DO) Acute hypoxemic respiratory failure (Acute) CHF (congestive heart failure) (Acute) Pneumonia (Acute) Acute hypoxic respiratory failure (Acute) Acute bilateral COVID-19 pneumonia (Acute) Abnormal cardiac enzyme level (Resolved) Anticoagulated on Coumadin (Resolved) RECOMMENDATIONS: 1. Proceed with a trial of extubation this morning. 2. Once extubated, wean supplemental oxygen to maintain saturations at or above 90%. 3. Perform formal swallow evaluation prior to advancing diet. 4. Continue antibiotics to complete 7-day treatment course. 5. Continue bronchodilators and steroids. 6. Restart Coumadin. 7. Encourage incentive spirometer use and mobilize patient as tolerated. IMPRESSIONS: 1. Acute hypoxic and hypercarbic respiratory failure The patient was recently admitted to the hospital with respiratory failure secondary to COVID-19 pneumonia and was only home for approximately 2 days prior to returning to the hospital with worsening shortness of breath and hypoxemia. The patient's CTA showed no evidence for PE and looked similar in appearance when compared to prior imaging studies from his last hospitalization, with the exception of some increased groundglass and pleural effusions. The patient was admitted to the hospital and placed on BiPAP and scheduled IV diuretic therapy. I am concerned that the patient likely has some underlying, baseline chronic lung disease as well. Although the patient initially showed some improvement, he later decompensated from a respiratory perspective and required transfer to the ICU and subsequent intubation on November 24. Over concerns for possible postinflammatory pulmonary fibrosis or underlying, chronic steroid responsive interstitial lung process, the patient was started on IV steroids. In addition, over concerns for possible pulmonary toxicity related to amiodarone use, the aforementioned medication was discontinued. The patient has improved from a respiratory perspective and was extubated on the morning of November 28. He will be continued on antibiotics given Klebsiella pneumonia isolated from sputum culture. 2. Encephalopathy Improved. [place] to be secondary to acute CO2 narcosis. Continue current supportive measures as noted above. BiPAP therapy can be utilized if clinically needed. 3. Acute kidney injury Likely prerenal in etiology with a component of ischemic ATN likely. The patient, did for period of time, require vasopressor support. However, the patient has been weaned from Levophed at this time. We will continue to monitor creatinine and urine output for now. No current indication for renal replacement therapy. 4. Chronic diastolic CHF/history of ascending aortic dissection status post repair/paroxysmal A. fib/hypertensive urgency The patient presented to the hospital with what appeared to be a CHF exacerbation. Although the patient was treated with diuretics and maintained on noninvasive positive pressure ventilatory support, his oxygen status remains quite tenuous, only to later require intubation. 5. CKD stage III/chronic anemia/hypothyroidism/advanced age Complicates care, management, recovery and prognosis. Continue home medications as indicated. TIME: 36 minutes of critical care time, inclusive of procedures, was spent addressing the patient's acute on chronic respiratory failure, hypercarbic encephalopathy, distributive shock, congestive heart failure, review of all data and collaboration with the care team. ([id number]) [phone]: [id number] Critical care first hour
[2020-11-28] MEDS: Menthol/Lanolin/Calamine/Znox 113 GM Tube 1 APPLIC TOPICAL ×2 (06:38→20:57)
[2020-11-28 06:40] LABS: Absolute Lymphocyte Count 0.69 X10^3/uL (0.83-4.51); Basophil# 0.01 X10^3/uL; Basophil% 0.1 % (0-1); Hematocrit 28.4 % (40-54); Hemoglobin 8.2 g/dL (13.0-16.5); Lymphocyte # 0.69 X10^3/ul (4.0); Lymphocyte % 9.8 % (19-41); Mean Corp Hgb Conc 28.9 g/dL (32-36); Mean Corpuscular Hgb 27.6 pg (27.0-32.0); Mean Corpuscular Volume 95.6 fL (80-94); Mean Platelet Vol. 10.1 fl (6.2-12.0); Monocyte# 1.26 X10^3/uL; Monocyte% 17.9 % (0-10); NRBC Flagged by Analyzer 0 % (0-5); Neutrophil # 4.95 X10^3/uL (2.7-7.7); Neutrophil % 70.4 % (47-70); Platelet Count 291 K/mm3 (150-450); RBC Distribution Width CV 16.1 % (11.6-14.6); RBC Distribution Width SD 56.7 fl (35.1-43.9); Red Blood Count 2.97 M/mm3 (4.6-6.2)
[2020-11-28 06:55] LABS: Anion Gap 3 (5-15); BUN 77 mg/dL (7-18); BUN/Creat Ratio 50.7 RATIO (10-20); Calcium,Total 7.5 mg/dL (8.5-10.1); Chloride 110 mmol/L (98-107); Creatinine, Serum 1.52 mg/dL (0.70-1.30); EST Glomerular Filtration Rate 47 mL/min (>60); Est Glom Filt Rate - Afr Amer 57 mL/min (>60); Estimated Creatinine Clearance 29.15 ml/min; Glucose 212 mg/dL (74-106); International Normalized Ratio 1.8; Potassium 3.6 mmol/L (3.5-5.1); Prothrombin Time (Protime)PT. 20.5 SECONDS (11.7-14.9); Sodium Level 146 mmol/L (136-145)
--- NOTE | 2020-11-28 06:59 | NURSING ---
0655 RN and RT in room for planned extubation. pt A&0x3, no sedation. Dr Sparrow discussed with pt if extubated, potential pt will need reintubated and pt clear he would not like to be reintubated. MD to change code status. pt follows commands, suctioned from ETT & oral, + air leak. Pt extubated to 9L HFNC, able to cough and clear secretions
--- NOTE | 2020-11-28 07:22 | PN_ITS ---
Patient Problems: Active and Suspected Problems (Last Reviewed 11/14/20 @ 14:[address] Elo Parham, DO) Acute hypoxemic respiratory failure (Acute) CHF (congestive heart failure) (Acute) Pneumonia (Acute) Acute bilateral COVID-19 pneumonia (Acute) Reason for Visit: Acute hypoxic respiratory failure Subjective: The patient is a 80-year-old gentleman with recent admission for COVID-19 pneumonia from 11/02/2020 to 11/12/2020 who presented to the emergency department on 11/14/2020 with worsening hypoxemia and shortness of breath -11/24/2020: Patient respiratory status deteriorated resulting in patient being placed on BiPAP. Patient was found to be more lethargic than usual. Held discussion with patient's as well as son regarding patient's condition they both wanted patient to remain full code. Case was further discussed with Dr. Sparrow with intensive care decision was made to transfer patient where patient was intubated. 11/25/2020; patient had to be started on Levophed due to patient being hypotensive. Levophed has since been weaned off. Patient per nursing documentation did well on spontaneous breathing trial. 11/26/2020; patient remains on the vent did well with a weaning trial this morning. Sputum culture so far positive for Klebsiella. ?11/27/2020; patient seen remains awake on the vent. Attempts at weaning this morning was unsuccessful. 11/28/2020; patient weaned off the vent this morning. CODE STATUS discussed with family. Change to DNR CC with no intubation. Patient also agrees with this. 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 MUSCULOSKELETAL: no muscle waisting NEURO: No lateralizing signs SKIN: No Rash Vitals/I&O's: Vital Signs Temp Pulse Resp BP Pulse Ox 97.7 F L 99 20 H 159/60 H 93 11/28/20 04:00 11/28/20 07:19 11/28/20 07:19 11/28/20 07:00 11/28/20 07:19 Oxygen Flow Rate (L/min) 9 Oxygen Delivery Method Nasal Cannula Weight: 59.058 kg Body Mass Index (BMI) 24.6 Intake and Output for Last 24 Hours 11/26/20 11/27/20 11/28/20 23:59 23:59 23:59 Intake Total 1022.0 / 1097.0 3198.50 / 3203.50 1583.17 / 1583.17 Output Total 1500 / 1500 1725 / 1725 275 / 275 Balance -478.0 / -403.0 1473.50 / 1478.50 1308.17 / 1308.17 Microbiology Past 72 Hours 11/24/20 11:15 Sputum, Induced/Lukens Gram Stain - Final 11/24/20 11:15 Sputum, Induced/Lukens Respiratory Culture - Preliminary Klebsiella pneumoniae sp pneum Laboratory Results 11/25/20 06:40: Cycl Citrul Peptide IgG 7, c-ANCA Antibody <1:20, Atypical p- ANCA <1:20, p-ANCA Antibody <1:20 11/28/20 06:30: WBC 7.0, RBC 2.97 L, Hgb 8.2 L, Hct 28.4 L, MCV 95.6 H, MCH 27.6, MCHC 28.9 L D, RDW Std Deviation 56.7 H, RDW Coeff of Ej 16.1 H, Plt Count 291, MPV 10.1, Immature Gran % (Auto) 1.800 H, Neut % (Auto) 70.4 H, Lymph % (Auto) 9.8 L, [place] % (Auto) 17.9 H, Eos % (Auto) 0.0, Baso % (Auto) 0.1, Absolute Neuts (auto) 5.0, Absolute Lymphs (auto) 0.69 L, Nucleated RBC % 0 11/28/20 06:30: PT 20.5 H, INR 1.8 11/28/20 06:30: Sodium 146 H, Potassium 3.6, Chloride 110 H, Carbon Dioxide 33.0 H, Anion Gap 3 L, BUN 77 H, Creatinine 1.52 H, Estim Creat Clear Calc 29.15, Est GFR (MDRD) Af Amer 57 L, Est GFR (MDRD) Non-Af 47 L, BUN/Creatinine Ratio 50.7 H , Glucose 212 H, Calcium 7.5 L Current Medications Acetaminophen (Acetaminophen 650 Mg/20 Ml Udc) 650 mg GT Q6H PRN PRN PRN Reason: Pain Score 1-10/Temp > 100.7 F Albuterol Sulfate (Albuterol 2.5 Mg/3 Ml Vial.Neb.) 2.5 mg INHALATION Q2H PRN PRN PRN Reason: SOB/Wheezing Last Admin: 11/27/20 13:39 Dose: 2.5 mg Documented by: Albuterol/Ipratropium (Ipratropium/Albuterol Sulfate 3 Ml Ampul.Neb) 3 ml INHALATION Q4H.RT [facility] Last Admin: 11/28/20 07:17 Dose: 3 ml Documented by: Atorvastatin Calcium (Atorvastatin Calcium 20 Mg Tablet) 20 mg GT QHS [facility] Last Admin: 11/27/20 20:07 Dose: 20 mg Documented by: Calamine/Phenol (Menthol/Lanolin/Calamine/Znox 113 Gm Tube) 1 applic TOPICAL 0600,2200 [facility]; Protocol Last Admin: 11/28/20 06:38 Dose: 1 applicatio Documented by: Calcium Carbonate (Calcium Carbonate 500 Mg Tablet) 500 mg GT Q6H PRN PRN PRN Reason: HEARTBURN Chlorhexidine Gluconate (Chlorhexidine 15 Ml) 15 ml PO BID [facility] Last Admin: 11/27/20 20:06 Dose: 15 ml Documented by: Chlorhexidine Gluconate (Chlorhexidine Gluc 2% Cloth 1 Each Towelette) 1 each TOPICAL DAILY [facility] Last Admin: 11/27/20 09:29 Dose: 1 each Documented by: Clopidogrel Bisulfate (Clopidogrel Bisulfate 75 Mg Tablet) 75 mg GT DAILY [facility] Last Admin: 11/27/20 10:34 Dose: 75 mg Documented by: Ferrous Sulfate (Ferrous Sulfate 300 Mg/5 Ml Udc) 300 mg GT DAILY [facility] Last Admin: 11/27/20 10:34 Dose: 300 mg Documented by: Folic Acid (Folic Acid 1 Mg Tablet) 1 mg GT DAILY [facility] Last Admin: 11/27/20 10:34 Dose: 1 mg Documented by: Guaifenesin (Guaifenesin 10 Ml Udc (200mg/10ml)) 10 ml GT Q4H PRN PRN PRN Reason: COUGH Sodium Chloride () 250 mls @ 15 mls/hr IV .[id number] PRN PRN Reason: Saline Flush Last Infusion: 11/26/20 16:38 Dose: Infused Documented by: Piperacillin Sod/Tazobactam (Sod 3.375 gm/ Sodium Chloride) 50 mls @ 12.5 mls/hr IV Q8 [facility] Last Admin: 11/28/20 06:15 Dose: 12.5 mls/hr Documented by: Dextrose () 1,000 mls @ 100 mls/hr IV .Q10H [facility] Last Admin: 11/28/20 06:37 Dose: 100 mls/hr Documented by: Levothyroxine Sodium (Levothyroxine 150 Mcg Tablet) 150 mcg GT DAILY [facility] Last Admin: 11/27/20 10:34 Dose: 150 mcg Documented by: Methylprednisolone (Methylprednisolone 40 Mg/Ml Vial) 40 mg IV DAILY [facility] Nitroglycerin (Nitroglycerin (Inpatient Use) 0.4 Mg Tab.Subl) 0.4 mg SUBLINGUAL Q5M PRN PRN Reason: CARDIAC/CHEST PAIN Ondansetron HCl (Ondansetron 4 Mg/2 Ml Vial) 4 mg IV Q8H PRN PRN PRN Reason: NAUSEA/VOMITING Senna/Docusate Sodium (Senna/Docusate Sodium 1 Tablet) 2 tablet GT BID PRN PRN PRN Reason: Constipation Sodium Chloride (0.9% Saline Lock 10 Ml Syringe) 10 - 40 ml IV UD PRN PRN Reason: SALINE FLUSH Last Admin: 11/26/20 23:53 Dose: 30 ml Documented by: Warfarin Sodium (Jantoven 2 Mg Tablet) 2 mg PO DAILY@1700 [facility] STROKE Vital Signs/Narrative: Vital Signs Temp Pulse Resp BP Pulse Ox 11/28/20 07:19 99 20 H 93 11/28/20 07:18 99 20 H 11/28/20 07:00 105 H 22 H 159/60 H 92 11/28/20 06:45 97 21 H 94 11/28/20 06:00 93 19 H 128/58 H 91 11/28/20 05:04 92 17 96 11/28/20 05:03 16 11/28/20 05:00 89 12 145/49 H 96 11/28/20 04:00 97.7 F L 91 16 161/66 H 92 Medical Necessity - Tobacco Use Smoking Status: Former smoker Assessment/Plan All Active Problems (Last Reviewed 11/14/20 @ 14:[address] Elo Parham, DO) Acute hypoxemic respiratory failure (Acute) CHF (congestive heart failure) (Acute) Pneumonia (Acute) Acute hypoxic respiratory failure (Acute) Acute bilateral COVID-19 pneumonia (Acute) Abnormal cardiac enzyme level (Resolved) Anticoagulated on Coumadin (Resolved) The patient is a 80-year-old gentleman with recent admission for COVID-19 pneumonia from 11/02/2020 to 11/12/2020 who presented to the emergency department on 11/14/2020 with worsening hypoxemia and shortness of breath 1. Acute hypoxic respiratory failure Due to combination of recent COVID-19 pneumonia and decompensated CHF. Admitted to monitored bed currently being managed with supplemental oxygen via [employer] --11/24/2020: Patient respiratory status deteriorated resulting in patient being placed on BiPAP. Patient was found to be more lethargic than usual. Held discussion with patient's as well as son regarding patient's condition they both wanted patient to remain full code. Case was further discussed with Dr. Sparrow with intensive care decision was made to transfer patient where patient was intubated. -11/25/2020; patient had to be started on Levophed due to patient being hypotensive. Levophed has since been weaned off. Patient per nursing d ocumentation did well on spontaneous breathing trial. 11/26/2020; patient remains on the vent did well with a weaning trial this morning. Sputum culture so far positive for Klebsiella. ?11/27/2020; patient seen remains awake on the vent. Attempts at weaning this morning was unsuccessful. -21; patient weaned off the vent discussions were held with family regarding patient's CODE STATUS changed to DNR CCA with no intubation 2. Aspiration pneumonia ?Patient sputum cultures came back positive for Klebsiella subsequently placed on Zosyn 3. Acute respiratory acidosis ?Due to a combination of decompensated respiratory failure, suspected pulmonary fibrosis and recent COVID-19 pneumonia. Patient respiratory status deteriorated resulting in patient being intubated 4. Recent COVID-19 pneumonia ?Patient was on admission 11/02/2020 to 11/12/2020 who presented to the emergency department on 11/14/2020 with worsening hypoxemia and shortness of breath 5. Acute congestive heart failure with preserved ejection fraction ?Patient has been managed with diuretics 6. Paroxysmal atrial fibrillation ?Rate controlled patient is on systemic anticoagulation with Coumadin INR elevated Coumadin on hold 7. Dyslipidemia -patient is on statin therapy, continued at home dose 8. Chronic kidney disease stage III ?Kidney function at baseline 9. Coronary artery disease ?Stable 10. 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 Hypothyroidism - Patient is on levothyroxine home dose continued 12. Anemia - Secondary to chronic disorder monitoring H&H and transfuse if patient becomes symptomatic or hemoglobin falls below 7 13. Hypertension - Blood pressure controlled, home medications continued with dose adjustment as needed 14. DVT prophylaxis ?On Coumadin no need for additional measures Inpatient E&M: [id number] [facility] L3
[2020-11-28] MEDS: Furosemide 20 MG/2 ML VIAL IV (08:47)
[2020-11-28] MEDS: 0.9% Saline Lock 10 ML Syringe IV ×2 (08:47→13:24)
[2020-11-28] MEDS: CHLORHEXIDINE GLUC 2% CLOTH 1 EACH TOWELETTE TOPICAL (13:01)
[2020-11-29] VITALS (26 sets, daily range): BP systolic 89–167; BP diastolic 51–70; PULSE 100–198; RESP 12–29; TEMP 36.1–36.7; O2SAT 82–98
--- NOTE | 2020-11-29 01:56 | CPS ---
Decreased FiO2 due to decrease in pt.'s oxygenation needs at this time on BiPAP. Pressures were also titrated down per pt.'s comfort.
--- NOTE | 2020-11-29 05:44 | PN_ITS ---
Subjective: The patient was seen and examined at the bedside this morning. Events from the last 24 hours have been reviewed. The patient is currently afebrile, hemodynamically stable and maintaining appropriate oxygen saturations on 7 L/min via nasal cannula. The patient did tolerate BiPAP for period of time overnight. Lab work was unable to be obtained this morning. The patient failed his swallow evaluation yesterday. The patient is currently documented to be overall net -1.8 L for the hospital admission. Objective: The patient's most recent lab work, culture data and imaging studies have all been personally reviewed. Stool for occult blood was positive on November 22. Surface echocardiogram revealed normal LV size with an ejection fraction of 55%. Right ventricular systolic pressure was estimated to be 45 mmHg. CTA chest showed no evidence for pulmonary embolism. There was note of a moderate sized hiatal hernia along with diffuse groundglass opacities bilaterally and moderate bilateral pleural effusions with associated atelectasis. Sputum culture dated November 24 was positive for Klebsiella pneumoniae. General: Alert, Cooperative, - - Fatigued in appearance. HEENT: Atraumatic, PERRLA, Normocephalic Oral: Dry Mucosa, - - Poor dentition Neck: Supple, No Nodes, Trachea Midline Lungs: No rhonchi, No wheeze, Diminished, Rales, Tachypneic Cardiovascular: Normal S1, Normal S2, Irregular Rate, Tachycardic Abdomen: Bowel Sounds Present, Soft, Non Tender Extremities: No clubbing, No cyanosis, Edema Skin: - - No significant change from previous Musculoskeletal: No Muscle Wasting Lymphatic: No Cervical, Supraclavicular, or Inguinal Adenopathy Neurological: - - No focal neurological deficits. Psych/Mental Status: Flat Affect Vital Signs Temp Pulse Resp BP Pulse Ox 97.7 F L 115 H 23 H 89/51 L 82 11/29/20 04:00 11/29/20 04:00 11/29/20 04:00 11/29/20 04:00 11/29/20 04:35 Oxygen Flow Rate (L/min) 8 Oxygen Delivery Method Nasal Cannula Weight: 131 lb 12.8 oz Body Mass Index (BMI) 24.6 Intake and Output for Last 24 Hours 11/27/20 11/28/20 11/29/20 23:59 23:59 23:59 Intake Total 3198.50 / 3203.50 1821.50 / 1821.50 50 / 50 Output Total 1725 / 1725 1035 / 1035 Balance 1473.50 / 1478.50 786.50 / 786.50 50 / 50 Labs (Last 48 Hours) 11/25/20 11/27/20 11/27/20 06:40 04:25 04:25 WBC 6.0 RBC 2.95 L Hgb 8.4 L Hct 27.4 L MCV 92.9 MCH 28.5 MCHC 30.7 L RDW Std Deviation 55.6 H RDW Coeff of Ej 16.2 H Plt Count 228 MPV 10.3 Immature Gran % (Auto) 0.700 Neut % (Auto) 85.2 H Lymph % (Auto) 3.9 L Steele % (Auto) 10.2 H Eos % (Auto) 0.0 Baso % (Auto) 0.0 Absolute Neuts (auto) 5.1 Absolute Lymphs (auto) 0.23 L Nucleated RBC % 0 PT 40.8 H INR 4.2 H* Sodium Potassium Chloride Carbon Dioxide Anion Gap BUN Creatinine Estim Creat Clear Calc Est GFR (MDRD) Af Amer Est GFR (MDRD) Non-Af BUN/Creatinine Ratio Glucose Calcium Cycl Citrul Peptide IgG 7 c-ANCA Antibody <1:20 Atypical p-ANCA <1:20 p-ANCA Antibody <1:20 11/27/20 11/28/20 11/28/20 04:25 06:30 06:30 WBC 7.0 RBC 2.97 L Hgb 8.2 L Hct 28.4 L MCV 95.6 H MCH 27.6 MCHC 28.9 L D RDW Std Deviation 56.7 H RDW Coeff of Ej 16.1 H Plt Count 291 MPV 10.1 Immature Gran % (Auto) 1.800 H Neut % (Auto) 70.4 H Lymph % (Auto) 9.8 L Steele % (Auto) 17.9 H Eos % (Auto) 0.0 Baso % (Auto) 0.1 Absolute Neuts (auto) 5.0 Absolute Lymphs (auto) 0.69 L Nucleated RBC % 0 PT 20.5 H INR 1.8 Sodium 151 H Potassium 3.3 L Chloride 115 H Carbon Dioxide 34.0 H Anion Gap 2 L BUN 79 H Creatinine 1.73 H Estim Creat Clear Calc 25.61 Est GFR (MDRD) Af Amer 49 L Est GFR (MDRD) Non-Af 41 L BUN/Creatinine Ratio 45.7 H Glucose 202 H Calcium 7.7 L Cycl Citrul Peptide IgG c-ANCA Antibody Atypical p-ANCA p-ANCA Antibody 11/28/20 06:30 WBC RBC Hgb Hct MCV MCH MCHC RDW Std Deviation RDW Coeff of Ej Plt Count MPV Immature Gran % (Auto) Neut % (Auto) Lymph % (Auto) Steele % (Auto) Eos % (Auto) Baso % (Auto) Absolute Neuts (auto) Absolute Lymphs (auto) Nucleated RBC % PT INR Sodium 146 H Potassium 3.6 Chloride 110 H Carbon Dioxide 33.0 H Anion Gap 3 L BUN 77 H Creatinine 1.52 H Estim Creat Clear Calc 29.15 Est GFR (MDRD) Af Amer 57 L Est GFR (MDRD) Non-Af 47 L BUN/Creatinine Ratio 50.7 H Glucose 212 H Calcium 7.5 L Cycl Citrul Peptide IgG c-ANCA Antibody Atypical p-ANCA p-ANCA Antibody Microbiology 11/24/20 11:15 Sputum, Induced/Lukens Gram Stain - Final 11/24/20 11:15 Sputum, Induced/Lukens Respiratory Culture - Final Klebsiella pneumoniae sp pneum Clinical Impression(s) from Imaging Studies Chest X-Ray 11/14/20 10:35 IMPRESSION: No change in severe congestive heart failure. Electronically Signed: Caleb Hinds MD at 11:15 EST Tel , Service support , Chest CTA 11/14/20 11:14 IMPRESSION: 1. No CT evidence of pulmonary embolism. 2. Bilateral pneumonia, pulmonary edema, or ARDS. 3. Moderate bilateral pleural effusions. Electronically Signed: Caleb Hinds MD at 12:24 EST Tel , Service support , Chest X-Ray 11/15/20 05:55 IMPRESSION: No change in bilateral pneumonia. Electronically Signed: Caleb Hinds MD at 7:22 EST Tel , Service support , Chest X-Ray 11/20/20 05:40 IMPRESSION: Progressive infiltration in both lungs worse in the peripheral aspect of the left hemithorax. Electronically Signed: Milan Cao MD at 8:03 EST , Service support , Chest CTA 11/22/20 08:15 IMPRESSION: 1. No CT evidence of pulmonary embolism. 2. Worsening bilateral pneumonia, pulmonary edema, or ARDS. 3. No change in moderate bilateral pleural effusions with bibasilar atelectasis. Electronically Signed: Caleb Hinds MD at 9:41 EST Tel , Service support , Chest X-Ray 11/24/20 10:06 IMPRESSION: The tip of the endotracheal tube is at 4.3 cm proximal to the chrissy. The tip of the orogastric tube is in the body of the stomach. Improved aeration of both lungs with residual infiltrates in both lungs. I suspect mild degree of superimposed CHF. Electronically Signed: Milan Cao MD at 10:51 EST , Service support , Chest X-Ray 11/25/20 06:42 IMPRESSION: The support tubes are unchanged. Mild degree of improved aeration of both lungs. Electronically Signed: Milan Cao MD at 9:11 EST , Service support , Medical Necessity - Tobacco Use Smoking Status: Former smoker Assessment/Plan All Active Problems (Last Reviewed 11/14/20 @ 14:[address] Elo Parham, DO) Acute hypoxemic respiratory failure (Acute) CHF (congestive heart failure) (Acute) Pneumonia (Acute) Acute hypoxic respiratory failure (Acute) Acute bilateral COVID-19 pneumonia (Acute) Abnormal cardiac enzyme level (Resolved) Anticoagulated on Coumadin (Resolved) RECOMMENDATIONS: 1. Continue to wean supplemental oxygen to maintain saturations at or above 90%. 2. Continue nocturnal BiPAP therapy as tolerated by patient. 3. Reevaluation by speech therapy prior to advancing diet. 4. Continue bronchodilators, steroids and antibiotics. 5. Continue Coumadin and check INR daily. 6. Encourage incentive spirometer use and mobilize patient as tolerated. 7. The patient is medically stable for transfer out of the intensive care unit. IMPRESSIONS: 1. Acute hypoxic and hypercarbic respiratory failure The patient was recently admitted to the hospital with respiratory failure secondary to COVID-19 pneumonia and was only home for approximately 2 days prior to returning to the hospital with worsening shortness of breath and hypoxemia. The patient's CTA showed no evidence for PE and looked similar in appearance when compared to prior imaging studies from his last hospitalization, with the exception of some increased groundglass and pleural effusions. The patient was admitted to the hospital and placed on BiPAP and scheduled IV diuretic therapy. I am concerned that the patient likely has some underlying, baseline chronic lung disease as well. Although the patient initially showed some improvement, he later decompensated from a respiratory perspective and required transfer to the ICU and subsequent intubation on November 24. Over concerns for possible postinflammatory pulmonary fibrosis or underlying, chronic steroid responsive interstitial lung process, the patient was started on IV steroids. In addition, over concerns for possible pulmonary toxicity related to amiodarone use, the aforementioned medication was discontinued. The patient has improved from a respiratory perspective and was extubated on the morning of November 28. He will be continued on antibiotics given Klebsiella pneumonia isolated from sputum culture. Goal to maintain oxygen saturations at or above 90%. Encourage i ncentive spirometer use and mobilize patient as tolerated. 2. Encephalopathy Improved. [place] to be secondary to acute CO2 narcosis. Continue current supportive measures as noted above. BiPAP therapy can be utilized if clinically needed. 3. Acute kidney injury Likely prerenal in etiology with a component of ischemic ATN likely. The patient, did for period of time, require vasopressor support. However, the patient has been weaned from Levophed at this time. We will continue to monitor creatinine and urine output for now. No current indication for renal replacement therapy. 4. Chronic diastolic CHF/history of ascending aortic dissection status post repair/paroxysmal A. fib/hypertensive urgency The patient presented to the hospital with what appeared to be a CHF exacerbation. However, diuretics remain on hold due to worsening renal insufficiency. 5. CKD stage III/chronic anemia/hypothyroidism/advanced age Complicates care, management, recovery and prognosis. Continue home medications as indicated. This note was generated with [employer] dictation software. It may contain incorrect words, spelling, and punctuation that were not noted in checking the note before signing. Inpatient E&M: 85002 Subs Hosp L3
[2020-11-29] MEDS: Menthol/Lanolin/Calamine/Znox 113 GM Tube 1 APPLIC TOPICAL ×2 (06:45→21:04)
--- NOTE | 2020-11-29 07:19 | PN_ITS ---
Patient Problems: Active and Suspected Problems (Last Reviewed 11/14/20 @ 14:[address] Elo Parham, DO) Acute hypoxemic respiratory failure (Acute) CHF (congestive heart failure) (Acute) Pneumonia (Acute) Acute bilateral COVID-19 pneumonia (Acute) Reason for Visit: Acute hypoxic respiratory failure Subjective: Patient was weaned off the vent the day prior. Seen this morning complains of breathing being more labored than usual. 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 MUSCULOSKELETAL: no muscle waisting NEURO: No lateralizing signs SKIN: No Rash Vitals/I&O's: Vital Signs Temp Pulse Resp BP Pulse Ox 97.7 F L 110 H 20 H 164/60 H 92 11/29/20 04:00 11/29/20 07:00 11/29/20 07:00 11/29/20 07:00 11/29/20 07:00 Oxygen Flow Rate (L/min) 7 Oxygen Delivery Method Nasal Cannula Weight: 59.783 kg Body Mass Index (BMI) 24.6 Intake and Output for Last 24 Hours 11/27/20 11/28/20 11/29/20 23:59 23:59 23:59 Intake Total 3198.50 / 3203.50 1821.50 / 1821.50 50 / 50 Output Total 1725 / 1725 1035 / 1035 Balance 1473.50 / 1478.50 786.50 / 786.50 50 / 50 Microbiology Past 72 Hours 11/24/20 11:15 Sputum, Induced/Lukens Gram Stain - Final 11/24/20 11:15 Sputum, Induced/Lukens Respiratory Culture - Final Klebsiella pneumoniae sp pneum Current Medications Acetaminophen (Acetaminophen 650 Mg/20 Ml Udc) 650 mg PO Q6H PRN PRN PRN Reason: Pain Score 1-10/Temp > 100.7 F Albuterol Sulfate (Albuterol 2.5 Mg/3 Ml Vial.Neb.) 2.5 mg INHALATION Q2H PRN PRN PRN Reason: SOB/Wheezing Last Admin: 11/27/20 13:39 Dose: 2.5 mg Documented by: Albuterol/Ipratropium (Ipratropium/Albuterol Sulfate 3 Ml Ampul.Neb) 3 ml INHALATION Q4H.RT [facility] Last Admin: 11/28/20 18:55 Dose: 3 ml Documented by: Atorvastatin Calcium (Atorvastatin Calcium 20 Mg Tablet) 20 mg PO QHS [facility] Last Admin: 11/28/20 20:57 Dose: Not Given Documented by: Calamine/Phenol (Menthol/Lanolin/Calamine/Znox 113 Gm Tube) 1 applic TOPICAL 0600,2200 [facility]; Protocol Last Admin: 11/29/20 06:45 Dose: 1 applicatio Documented by: Calcium Carbonate (Calcium Carbonate 500 Mg Tablet) 500 mg PO Q6H PRN PRN PRN Reason: HEARTBURN Chlorhexidine Gluconate (Chlorhexidine Gluc 2% Cloth 1 Each Towelette) 1 each TOPICAL DAILY [facility] Last Admin: 11/28/20 13:01 Dose: 1 each Documented by: Clopidogrel Bisulfate (Clopidogrel Bisulfate 75 Mg Tablet) 75 mg PO DAILY [facility] Last Admin: 11/28/20 11:32 Dose: Not Given Documented by: Ferrous Sulfate (Ferrous Sulfate 300 Mg/5 Ml Udc) 300 mg PO DAILY [facility] Last Admin: 11/28/20 11:32 Dose: Not Given Documented by: Folic Acid (Folic Acid 1 Mg Tablet) 1 mg PO DAILY [facility] Last Admin: 11/28/20 11:32 Dose: Not Given Documented by: Guaifenesin (Guaifenesin 10 Ml Udc (200mg/10ml)) 10 ml PO Q4H PRN PRN PRN Reason: COUGH Sodium Chloride () 250 mls @ 15 mls/hr IV .[id number] PRN PRN Reason: Saline Flush Last Infusion: 11/26/20 16:38 Dose: Infused Documented by: Piperacillin Sod/Tazobactam (Sod 3.375 gm/ Sodium Chloride) 50 mls @ 12.5 mls/hr IV Q8 [facility] Last Admin: 11/29/20 06:10 Dose: 12.5 mls/hr Documented by: Levothyroxine Sodium (Levothyroxine 150 Mcg Tablet) 150 mcg PO DAILY [facility] Last Admin: 11/28/20 11:33 Dose: Not Given Documented by: Methylprednisolone (Methylprednisolone 40 Mg/Ml Vial) 40 mg IV DAILY [facility] Last Admin: 11/28/20 13:01 Dose: 40 mg Documented by: Nitroglycerin (Nitroglycerin (Inpatient Use) 0.4 Mg Tab.Subl) 0.4 mg SUBLINGUAL Q5M PRN PRN Reason: CARDIAC/CHEST PAIN Ondansetron HCl (Ondansetron 4 Mg/2 Ml Vial) 4 mg IV Q8H PRN PRN PRN Reason: NAUSEA/VOMITING Senna/Docusate Sodium (Senna/Docusate Sodium 1 Tablet) 2 tablet PO BID PRN PRN PRN Reason: Constipation Sodium Chloride (0.9% Saline Lock 10 Ml Syringe) 10 - 40 ml IV UD PRN PRN Reason: SALINE FLUSH Last Admin: 11/28/20 13:24 Dose: 10 ml Documented by: Warfarin Sodium (Jantoven 2 Mg Tablet) 2 mg PO DAILY@1700 [facility] Last Admin: 11/28/20 13:01 Dose: Not Given Documented by: STROKE Vital Signs/Narrative: Vital Signs Temp Pulse Resp BP Pulse Ox 11/29/20 07:00 110 H 20 H 164/60 H 92 11/29/20 06:00 107 H 20 H 143/70 H 94 11/29/20 05:00 108 H 16 146/63 H 95 11/29/20 04:35 82 11/29/20 04:00 97.7 F L 115 H 23 H 89/51 L 92 11/29/20 03:40 95 Medical Necessity - Tobacco Use Smoking Status: Former smoker Assessment/Plan All Active Problems (Last Reviewed 11/14/20 @ 14:[address] Elo Parham, DO) Acute hypoxemic respiratory failure (Acute) CHF (congestive heart failure) (Acute) Pneumonia (Acute) Acute hypoxic respiratory failure (Acute) Acute bilateral COVID-19 pneumonia (Acute) Abnormal cardiac enzyme level (Resolved) Anticoagulated on Coumadin (Resolved) The patient is a 80-year-old gentleman with recent admission for COVID-19 pneumonia from 11/02/2020 to 11/12/2020 who presented to the emergency department on 11/14/2020 with worsening hypoxemia and shortness of breath 1. Acute hypoxic respiratory failure Due to combination of recent COVID-19 pneumonia and decompensated CHF. Admitted to [facility] bed currently being managed with supplemental oxygen via [employer] --11/24/2020: Patient respiratory status deteriorated resulting in patient being placed on BiPAP. Patient was found to be more lethargic than usual. Held discussion with patient's as well as son regarding patient's condition they both wanted patient to remain full code. Case was further discussed with Dr. Sparrow with intensive care decision was made to transfer patient where patient was intubated. -11/25/2020; patient had to be started on Levophed due to patient being hypotensive. Levophed has since been weaned off. Patient per nursing documentation did well on spontaneous breathing trial. 11/26/2020; patient remains on the vent did well with a weaning trial this morning. Sputum culture so far positive for Klebsiella. ?11/27/2020; patient seen remains awake on the vent. Attempts at weaning this morning was unsuccessful. - 11/28/2020; patient weaned off the vent discussions were held with family regarding patient's CODE STATUS changed to DNR CCA with no intubation - 11/29/2020 patient was weaned off the vent the day prior. Seen this morning complains of breathing being more labored than usual. Plan is for patient to be transferred from ICU to PCU 2. Aspiration pneumonia ?Patient sputum cultures came back positive for Klebsiella subsequently placed on Zosyn 3. Acute respiratory acidosis ?Due to a combination of decompensated respiratory failure, suspected pulmonary fibrosis and recent COVID-19 pneumonia. Patient respiratory status deteriorated resulting in patient being intubated 4. Recent COVID-19 pneumonia ?Patient was on admission 11/02/2020 to 11/12/2020 who presented to the emergency department on 11/14/2020 with worsening hypoxemia and shortness of breath 5. Acute congestive heart failure with preserved ejection fraction ?Patient has been managed with diuretics 6. Paroxysmal atrial fibrillation ?Rate controlled patient is on systemic anticoagulation with Coumadin INR elevated Coumadin on hold 7. Dyslipidemia -patient is on statin therapy, continued at home dose 8. Chronic kidney disease stage III ?Kidney function at baseline 9. Coronary artery disease ?Stable 10. 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 Hypothyroidism - Patient is on levothyroxine home dose continued 12. Anemia - Secondary to chronic disorder monitoring H&H and transfuse if patient becomes symptomatic or hemoglobin falls below 7 13. Hypertension - Blood pressure controlled, home medications continued with dose adjustment as needed 14. DVT prophylaxis ?On Coumadin no need for additional measures Inpatient E&M: 44828 Subs Hosp L3
[2020-11-29] MEDS: Ipratropium/Albuterol Sulfate 3 ML AMPUL.NEB INHALATION ×5 (07:21→23:11)
[2020-11-29] MEDS: Jantoven 2 MG Tablet PO (16:57)
[2020-11-29] MEDS: Atorvastatin Calcium 20 MG Tablet PO (21:05)
[2020-11-30] VITALS (17 sets, daily range): BP systolic 148–168; BP diastolic 54–69; PULSE 80–117; RESP 16–26; TEMP 36.6–36.9; O2SAT 90–97
--- NOTE | 2020-11-30 03:07 | CPS ---
pt went on bipap at 11:05pm till 2:30am
[2020-11-30] MEDS: Ipratropium/Albuterol Sulfate 3 ML AMPUL.NEB INHALATION ×5 (03:17→19:25)
[2020-11-30] MEDS: Menthol/Lanolin/Calamine/Znox 113 GM Tube 1 APPLIC TOPICAL ×2 (05:05→21:25)
[2020-11-30 06:07] LABS: Hematocrit 27.4 % (40-54); Hemoglobin 7.9 g/dL (13.0-16.5); Mean Corp Hgb Conc 28.8 g/dL (32-36); Mean Corpuscular Hgb 27.9 pg (27.0-32.0); Mean Corpuscular Volume 96.8 fL (80-94); Mean Platelet Vol. 10.7 fl (6.2-12.0); Platelet Count 249 K/mm3 (150-450); RBC Distribution Width CV 16.2 % (11.6-14.6); RBC Distribution Width SD 57.3 fl (35.1-43.9); Red Blood Count 2.83 M/mm3 (4.6-6.2); White Blood Count 6.9 K/mm3 (4.4-11.0)
[2020-11-30 06:21] LABS: International Normalized Ratio 1.3
[2020-11-30 06:43] LABS: Anion Gap 4 (5-15); BUN 59 mg/dL (7-18); BUN/Creat Ratio 43.1 RATIO (10-20); Calcium,Total 7.6 mg/dL (8.5-10.1); Chloride 113 mmol/L (98-107); Creatinine, Serum 1.37 mg/dL (0.70-1.30); EST Glomerular Filtration Rate 53 mL/min (>60); Est Glom Filt Rate - Afr Amer 64 mL/min (>60); Estimated Creatinine Clearance 32.34 ml/min; Glucose 219 mg/dL (74-106); Potassium 3.4 mmol/L (3.5-5.1); Sodium Level 149 mmol/L (136-145)
--- NOTE | 2020-11-30 07:34 | PN_ITS ---
Subjective: Patient transferred out of the intensive care unit yesterday. Patient did okay overnight. No acute issues were reported. Patient has not had any bleeding, but did fail his swallow evaluation. Patient was not reporting pain on my evaluation this morning. General: Alert, Oriented x3, Cooperative, No apparent distress, - - Appears weak, but appropriate HEENT: Atraumatic, PERRLA, EOMI, Normocephalic, - - No scleral icterus or injection noted Oral: No Gingival or Mucosal Lesions/ Ulcerations, Dry Mucosa Neck: Supple, No JVD, No Nodes, Trachea Midline Lungs: No rhonchi, No wheeze, Diminished, Rales Cardiovascular: Normal S1, Normal S2, Irregular Rate, Murmur - Grade 2 out of 6 systolic ejection murmur at the right sternal border, No rub noted, No Gallop Abdomen: Bowel Sounds Present, Soft, Non Tender, Non-Distended Extremities: No clubbing, No cyanosis, Edema Skin: No rashes, No breakdown Musculoskeletal: No Tenderness to Palpation of Joints or Extremities Lymphatic: No Cervical, Supraclavicular, or Inguinal Adenopathy Neurological: Cranial nerves II-XII grossly intact, Neuro grossly intact, Motor Exam 5/5 strength throughout Psych/Mental Status: Normal Affect, Appropriate Vital Signs Temp Pulse Resp BP Pulse Ox 36.6 C 98 18 148/54 H 95 11/30/20 05:03 11/30/20 06:00 11/30/20 06:00 11/30/20 05:03 11/30/20 06:00 Oxygen Flow Rate (L/min) 5 Oxygen Delivery Method Nasal Cannula Weight: 60.8 kg Body Mass Index (BMI) 24.6 Intake and Output for Last 24 Hours 11/28/20 11/29/20 11/30/20 23:59 23:59 23:59 Intake Total 1821.50 / 1821.50 350 / 350 350 / 350 Output Total 1035 / 1035 Balance 786.50 / 786.50 350 / 350 350 / 350 Labs (Last 48 Hours) 11/30/20 11/30/20 11/30/20 05:36 05:36 05:36 WBC 6.9 RBC 2.83 L Hgb 7.9 L Hct 27.4 L MCV 96.8 H MCH 27.9 MCHC 28.8 L RDW Std Deviation 57.3 H RDW Coeff of Ej 16.2 H Plt Count 249 MPV 10.7 PT 16.0 H INR 1.3 Sodium 149 H Potassium 3.4 L Chloride 113 H Carbon Dioxide 32.0 Anion Gap 4 L BUN 59 H Creatinine 1.37 H Estim Creat Clear Calc 32.34 Est GFR (MDRD) Af Amer 64 Est GFR (MDRD) Non-Af 53 L BUN/Creatinine Ratio 43.1 H Glucose 219 H Calcium 7.6 L Microbiology 11/24/20 11:15 Sputum, Induced/Lukens Gram Stain - Final 11/24/20 11:15 Sputum, Induced/Lukens Respiratory Culture - Final Klebsiella pneumoniae sp pneum Medical Necessity - Tobacco Use Smoking Status: Former smoker Assessment/Plan All Active Problems (Last Reviewed 11/14/20 @ 14:[address] Elo Parham, DO) Acute hypoxemic respiratory failure (Acute) CHF (congestive heart failure) (Acute) Pneumonia (Acute) Acute hypoxic respiratory failure (Acute) Acute bilateral COVID-19 pneumonia (Acute) Abnormal cardiac enzyme level (Resolved) Anticoagulated on Coumadin (Resolved) RECOMMENDATIONS: 1. Continue to wean supplemental oxygen to maintain saturations at or above 90%. 2. Continue nocturnal BiPAP therapy as tolerated by patient. 3. Reevaluation by speech therapy prior to advancing diet. 4. Continue bronchodilators, steroids and antibiotics. 5. Continue Coumadin and check INR daily. 6. Encourage incentive spirometer use and mobilize patient as tolerated. 7. Anticipate patient may require LTAC versus mcfp placement on discharge IMPRESSIONS: 1. Acute hypoxic and hypercarbic respiratory failure The patient was recently admitted to the hospital with respiratory failure secondary to COVID-19 pneumonia and was only home for approximately 2 days prior to returning to the hospital with worsening shortness of breath and hypoxemia. The patient's CTA showed no evidence for PE and looked similar in appearance when compared to prior imaging studies from his last hospitalization, with the exception of some increased groundglass and pleural effusions. The patient was admitted to the hospital and placed on BiPAP and scheduled IV diuretic therapy. I am concerned that the patient likely has some underlying, baseline chronic lung disease as well. Although the patient initially showed some improvement, he later decompensated from a respiratory perspective and required transfer to the ICU and subsequent intubation on November 24. Over concerns for possible postinflammatory pulmonary fibrosis or underlying, chronic steroid responsive interstitial lung process, the patient was started on IV steroids. In addition, over concerns for possible pulmonary toxicity related to amiodarone use, the aforementioned medication was discontinued. The patient appears to be improving from a respiratory standpoint. Continue to wean supplemental oxygen as tolerated. Increase activity as tolerated. Patient will need a walking oximetry prior to discharge 2. Encephalopathy Improved. [place] to be secondary to acute CO2 narcosis. Continue current supportive measures as noted above. BiPAP therapy can be utilized if clinically needed. 3. Acute kidney injury Likely prerenal in etiology with a component of ischemic ATN likely. The patient, did for period of time, require vasopressor support. However, the patient has been weaned from Levophed at this time. We will continue to monitor creatinine and urine output for now. No current indication for renal replacement therapy. Anticipate possibly given additional diuretics tomorrow if continues to improve 4. Chronic diastolic CHF/history of ascending aortic dissection status post repair/paroxysmal A. fib/hypertensive urgency The patient presented to the hospital with what appeared to be a CHF exacerbation. However, diuretics remain on hold due to worsening renal insufficiency. 5. CKD stage III/chronic anemia/hypothyroidism/advanced age Complicates care, management, recovery and prognosis. Continue home medications as indicated. Inpatient E&M: 27770 [facility] H[facility] L3
[2020-11-30] MEDS: Folic Acid 1 MG Tablet PO (10:18)
[2020-11-30] MEDS: Levothyroxine 150 MCG Tablet PO (10:18)
[2020-11-30] MEDS: Clopidogrel Bisulfate 75 MG Tablet PO (10:18)
[2020-11-30] MEDS: Ferrous Sulfate 300 MG/5 ML UDC PO (10:18)
[2020-11-30] MEDS: 0.9% Saline Lock 10 ML Syringe IV (10:18)
--- NOTE | 2020-11-30 12:39 | CASEMGMT ---
SW spoke with patient and his son per their request. SW explained patient would likely need a residential facility instead of an LTACH. Patient and his son were provided a list of SNF providers including quality and resource use data and consistent with the patient?s preferred geographic region, medical needs, and insurance network. They asked about TCU. ELVIN explained there are no beds in TCU right now, but he is no the list. SW asked that they pick at least 2 other facilities in the event TCU does not have a bed. SW gave patient's son SW's card. Jayda MOSER MSW
--- NOTE | 2020-11-30 15:50 | PCM.PN.HOSP ---
Patient Problems: Active and Suspected Problems (Last Reviewed 11/14/20 @ 14:[address] Elo Parham, DO) Acute hypoxemic respiratory failure (Acute) CHF (congestive heart failure) (Acute) Pneumonia (Acute) Acute bilateral COVID-19 pneumonia (Acute) Subjective: Feeling well. No shortness of breath. Vitals/I&O's: Vital Signs Temp Pulse Resp BP Pulse Ox 36.6 C 101 H 18 168/66 H 90 11/30/20 10:10 11/30/20 14:49 11/30/20 14:49 11/30/20 10:10 11/30/20 10:57 Oxygen Flow Rate (L/min) 5 Oxygen Delivery Method Nasal Cannula Weight: 60.8 kg Body Mass Index (BMI) 24.6 Intake and Output for Last 24 Hours 11/28/20 11/29/20 11/30/20 23:59 23:59 23:59 Intake Total 1821.50 / 1821.50 350 / 350 520 / 520 Output Total 1035 / 1035 Balance 786.50 / 786.50 350 / 350 520 / 520 General: Alert, No apparent distress, - - cachectic. HEENT: Atraumatic, Normocephalic Oral: Moist Mucosa, No Gingival or Mucosal Lesions/ Ulcerations Neck: No Nodes, Thyroid Normal Size and Texture Lungs: Normal air movement, - - coarse breath sounds Cardiovascular: Regular rate, Regular Rhythm, Normal S1, Normal S2, No murmurs Abdomen: Bowel Sounds Present, Soft, Non Tender, Non-Distended, No Hepato-splenomegaly Extremities: - - right hand amputated. Skin: No rashes, No breakdown Neurological: Muscle tone normal, Coordination normal Psych/Mental Status: Normal Affect, Appropriate Microbiology Past 72 Hours 11/30/20 10:50 Mucosa - Nose SARS-CoV-2 Antigen (Rapid) - Final 11/24/20 11:15 Sputum, Induced/Lukens Gram Stain - Final 11/24/20 11:15 Sputum, Induced/Lukens Respiratory Culture - Final Klebsiella pneumoniae sp pneum Laboratory Results 11/30/20 05:36: WBC 6.9, RBC 2.83 L, Hgb 7.9 L, Hct 27.4 L, MCV 96.8 H, MCH 27.9, MCHC 28.8 L, RDW Std Deviation 57.3 H, RDW Coeff of Ej 16.2 H, Plt Count 249, MPV 10.7 11/30/20 05:36: Sodium 149 H, Potassium 3.4 L, Chloride 113 H, Carbon Dioxide 32.0, Anion Gap 4 L, BUN 59 H, Creatinine 1.37 H, Estim Creat Clear Calc 32.34, Est GFR (MDRD) Af Amer 64, Est GFR (MDRD) Non-Af 53 L, BUN/Creatinine Ratio 43.1 H, Glucose 219 H, Calcium 7.6 L 11/30/20 05:36: PT 16.0 H, INR 1.3 Current Medications Acetaminophen (Acetaminophen 650 Mg/20 Ml Udc) 650 mg PO Q6H PRN PRN PRN Reason: Pain Score 1-10/Temp > 100.7 F Albuterol Sulfate (Albuterol 2.5 Mg/3 Ml Vial.Neb.) 2.5 mg INHALATION Q2H PRN PRN PRN Reason: SOB/Wheezing Last Admin: 11/27/20 13:39 Dose: 2.5 mg Documented by: Albuterol/Ipratropium (Ipratropium/Albuterol Sulfate 3 Ml Ampul.Neb) 3 ml INHALATION Q4H.RT [facility] Last Admin: 11/30/20 14:47 Dose: 3 ml Documented by: Atorvastatin Calcium (Atorvastatin Calcium 20 Mg Tablet) 20 mg PO QHS [facility] Last Admin: 11/29/20 21:05 Dose: 20 mg Documented by: Calamine/Phenol (Menthol/Lanolin/Calamine/Znox 113 Gm Tube) 1 applic TOPICAL 0600,2200 [facility]; Protocol Last Admin: 11/30/20 05:05 Dose: 1 applicatio Documented by: Calcium Carbonate (Calcium Carbonate 500 Mg Tablet) 500 mg PO Q6H PRN PRN PRN Reason: HEARTBURN Clopidogrel Bisulfate (Clopidogrel Bisulfate 75 Mg Tablet) 75 mg PO DAILY [facility] Last Admin: 11/30/20 10:18 Dose: 75 mg Documented by: Ferrous Sulfate (Ferrous Sulfate 300 Mg/5 Ml Udc) 300 mg PO DAILY [facility] Last Admin: 11/30/20 10:18 Dose: 300 mg Documented by: Folic Acid (Folic Acid 1 Mg Tablet) 1 mg PO DAILY [facility] Last Admin: 11/30/20 10:18 Dose: 1 mg Documented by: Guaifenesin (Guaifenesin 10 Ml Udc (200mg/10ml)) 10 ml PO Q4H PRN PRN PRN Reason: COUGH Sodium Chloride () 250 mls @ 15 mls/hr IV .[id number] PRN PRN Reason: Saline Flush Last Infusion: 11/26/20 16:38 Dose: Infused Documented by: Piperacillin Sod/Tazobactam (Sod 3.375 gm/ Sodium Chloride) 50 mls @ 12.5 mls/hr IV Q8 [facility] Last Admin: 11/30/20 14:45 Dose: 12.5 mls/hr Documented by: Levothyroxine Sodium (Levothyroxine 150 Mcg Tablet) 150 mcg PO DAILY [facility] Last Admin: 11/30/20 10:18 Dose: 150 mcg Documented by: Methylprednisolone (Methylprednisolone 40 Mg/Ml Vial) 40 mg IV DAILY [facility] Last Admin: 11/30/20 10:18 Dose: 40 mg Documented by: Nitroglycerin (Nitroglycerin (Inpatient Use) 0.4 Mg Tab.Subl) 0.4 mg SUBLINGUAL Q5M PRN PRN Reason: CARDIAC/CHEST PAIN Ondansetron HCl (Ondansetron 4 Mg/2 Ml Vial) 4 mg IV Q8H PRN PRN PRN Reason: NAUSEA/VOMITING Senna/Docusate Sodium (Senna/Docusate Sodium 1 Tablet) 2 tablet PO BID PRN PRN PRN Reason: Constipation Sodium Chloride (0.9% Saline Lock 10 Ml Syringe) 10 - 40 ml IV UD PRN PRN Reason: SALINE FLUSH Last Admin: 11/30/20 10:18 Dose: 10 ml Documented by: Warfarin Sodium (Jantoven 2 Mg Tablet) 2 mg PO DAILY@1700 [facility] Last Admin: 11/29/20 16:57 Dose: 2 mg Documented by: STROKE Vital Signs/Narrative: Vital Signs Pulse Resp 11/30/20 14:49 101 H 18 Medical Necessity - Tobacco Use Smoking Status: Former smoker Assessment/Plan All Active Problems (Last Reviewed 11/14/20 @ 14:[address] Elo Parham DO) Acute hypoxemic respiratory failure (Acute) CHF (congestive heart failure) (Acute) Pneumonia (Acute) Acute hypoxic respiratory failure (Acute) Acute bilateral COVID-19 pneumonia (Acute) Abnormal cardiac enzyme level (Resolved) Anticoagulated on Coumadin (Resolved) 1. Acute hypoxic respiratory failure Due to combination of recent COVID-19 pneumonia and decompensated CHF + aspiration pneumonia continue BDs, steroids pulm following 11/24/2020: Patient respiratory status deteriorated resulting in patient being placed on BiPAP. Patient was found to be more lethargic than usual. Held discussion with patient's as well as son regarding patient's condition they both wanted patient to remain full code. Case was further discussed with Dr. Sparrow with intensive care decision was made to transfer patient where patient was intubated. 11/25/2020; patient had to be started on Levophed due to patient being hypotensive. Levophed has since been weaned off. Patient per nursing documentation did well on spontaneous breathing trial. 11/26/2020; patient remains on the vent did well with a weaning trial this morning. Sputum culture so far positive for Klebsiella. 11/27/2020; patient seen remains awake on the vent. Attempts at weaning this morning was unsuccessful. 11/28/2020; patient weaned off the vent discussions were held with family regarding patient's CODE STATUS changed to DNR CCA with no intubation 11/29/2020 patient was weaned off the vent the day prior. Seen this morning complains of breathing being more labored than usual. Plan is for patient to be transferred from ICU to PCU 12/10: on 5 NC 2. Klebsiella Pneumonia Pip/tazo from 11/24 through 11/30, change to CTX through 12/01, then stop 3. Acute respiratory acidosis Due to a combination of decompensated respiratory failure, suspected pulmonary fibrosis and recent COVID-19 pneumonia. Patient respiratory status deteriorated resulting in patient being intubated 4. Recent COVID-19 pneumonia Patient was on admission 11/02/2020 to 11/12/2020 who presented to the emergency department on 11/14/2020 with worsening hypoxemia and shortness of breath completed quarantine 5. Acute congestive heart failure with preserved ejection fraction currently off diuretics i/o -1.07 liters total 6. Paroxysmal atrial fibrillation resume carvedilol warfarin 7. DIONI improved 8. Dyslipidemia statin 9. Dysphagia: pureed and honey thick liquids continue ST 10. Coronary artery disease Stable 11. 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 Hypothyroidism Patient is on levothyroxine home dose continued 13. Anemia Secondary to chronic disorder monitoring H&H and transfuse if patient becomes symptomatic or hemoglobin falls below 7 14. Hypertension Blood pressure controlled, home medications continued with dose adjustment as needed 15. DVT prophylaxis On Coumadin no need for additional measures Inpatient E&M: [id number] [facility] Hosp L3
[2020-11-30] MEDS: Jantoven 2 MG Tablet PO (17:39)
[2020-11-30] MEDS: Carvedilol 12.5 MG Tablet PO (21:26)
[2020-11-30] MEDS: Atorvastatin Calcium 20 MG Tablet PO (21:27)
[2020-12-01] VITALS (18 sets, daily range): BP systolic 136–157; BP diastolic 46–64; PULSE 71–97; RESP 16–27; TEMP 36.4–36.7; O2SAT 90–98
--- NOTE | 2020-12-01 03:25 | NURSING ---
Pt has been awake all night. Encourage pt to sleep
[2020-12-01 05:12] LABS: Hemoglobin 8.8 g/dL (13.0-16.5); Mean Corp Hgb Conc 30.3 g/dL (32-36); Mean Corpuscular Hgb 28.5 pg (27.0-32.0); Mean Corpuscular Volume 93.9 fL (80-94); Mean Platelet Vol. 11.2 fl (6.2-12.0); Platelet Count 206 K/mm3 (150-450); RBC Distribution Width CV 15.6 % (11.6-14.6); RBC Distribution Width SD 53.3 fl (35.1-43.9); Red Blood Count 3.09 M/mm3 (4.6-6.2); White Blood Count 8.9 K/mm3 (4.4-11.0)
[2020-12-01 05:38] LABS: Anion Gap 3 (5-15); BUN 45 mg/dL (7-18); BUN/Creat Ratio 36.6 RATIO (10-20); Calcium,Total 7.4 mg/dL (8.5-10.1); Chloride 116 mmol/L (98-107); Creatinine, Serum 1.23 mg/dL (0.70-1.30); EST Glomerular Filtration Rate 60 mL/min (>60); Est Glom Filt Rate - Afr Amer 73 mL/min (>60); Estimated Creatinine Clearance 36.02 ml/min; Glucose 111 mg/dL (74-106); Potassium 3.9 mmol/L (3.5-5.1); Sodium Level 147 mmol/L (136-145)
[2020-12-01] MEDS: Ipratropium/Albuterol Sulfate 3 ML AMPUL.NEB INHALATION ×4 (07:27→22:58)
--- NOTE | 2020-12-01 08:06 | PN_ITS ---
Patient Problems: Active and Suspected Problems (Last Reviewed 11/14/20 @ 14:[address] Elo Parham, DO) Acute hypoxemic respiratory failure (Acute) CHF (congestive heart failure) (Acute) Pneumonia (Acute) Acute bilateral COVID-19 pneumonia (Acute) Subjective: Patient did well overnight. No acute issues were reported. Patient was able to tolerate BiPAP overnight, but was down to 4 L nasal cannula during the day yesterday. Patient continues to report a cough. - Physical Exam Vitals/I&O's: Vital Signs Temp Pulse Resp BP Pulse Ox 36.7 C 93 22 H 136/46 H 98 12/01/20 03:21 12/01/20 07:00 12/01/20 04:22 12/01/20 03:21 12/01/20 04:22 Oxygen Flow Rate (L/min) 4 Oxygen Delivery Method Nasal Cannula Weight: 60.8 kg Body Mass Index (BMI) 24.6 Intake and Output for Last 24 Hours 11/29/20 11/30/20 12/01/20 23:59 23:59 23:59 Intake Total 350 / 350 890 / 890 110 / 110 Balance 350 / 350 890 / 890 110 / 110 General: Alert, Oriented x3, Cooperative, - - Mild conversational dyspnea HEENT: Atraumatic, PERRLA, EOMI, Normocephalic, - - No scleral icterus or injection noted Oral: No Gingival or Mucosal Lesions/ Ulcerations, Dry Mucosa Neck: Supple, No Nodes, Trachea Midline Lungs: No rhonchi, No wheeze, Diminished, Rales, - - Symmetric expansion Cardiovascular: Normal S1, Normal S2, Irregular Rate, Murmur, No rub noted, No Gallop Abdomen: Bowel Sounds Present, Soft, Non Tender, Non-Distended Extremities: No clubbing, No cyanosis Skin: No rashes, No breakdown Musculoskeletal: No Tenderness to Palpation of Joints or Extremities Lymphatic: No Cervical, Supraclavicular, or Inguinal Adenopathy Neurological: Cranial nerves II-XII grossly intact, Neuro grossly intact, Motor Exam 5/5 strength throughout Psych/Mental Status: Alert and oriented to time, place, person, mood and affect Microbiology Past 72 Hours 11/30/20 10:50 Mucosa - Nose SARS-CoV-2 Antigen (Rapid) - Final 11/24/20 11:15 Sputum, Induced/Lukens Gram Stain - Final 11/24/20 11:15 Sputum, Induced/Lukens Respiratory Culture - Final Klebsiella pneumoniae sp pneum Laboratory Results 12/01/20 04:54: WBC 8.9, RBC 3.09 L, Hgb 8.8 L, Hct 29.0 L, MCV 93.9, MCH 28.5, MCHC 30.3 L D, RDW Std Deviation 53.3 H, RDW Coeff of Ej 15.6 H, Plt Count 206, MPV 11.2 12/01/20 04:54: Sodium 147 H, Potassium 3.9, Chloride 116 H, Carbon Dioxide 28.0, Anion Gap 3 L, BUN 45 H, Creatinine 1.23, Estim Creat Clear Calc 36.02, Est GFR (MDRD) Af Amer 73, Est GFR (MDRD) Non-Af 60, BUN/Creatinine Ratio 36.6 H , Glucose 111 H, Calcium 7.4 L Current Medications Acetaminophen (Acetaminophen 650 Mg/20 Ml Udc) 650 mg PO Q6H PRN PRN PRN Reason: Pain Score 1-10/Temp > 100.7 F Albuterol Sulfate (Albuterol 2.5 Mg/3 Ml Vial.Neb.) 2.5 mg INHALATION Q2H PRN PRN PRN Reason: SOB/Wheezing Last Admin: 11/27/20 13:39 Dose: 2.5 mg Documented by: Albuterol/Ipratropium (Ipratropium/Albuterol Sulfate 3 Ml Ampul.Neb) 3 ml IN HALATION Q4H.RT [facility] Last Admin: 12/01/20 07:27 Dose: 3 ml Documented by: Amiodarone HCl (Amiodarone 200 Mg Tablet) 200 mg PO DAILY [facility] Atorvastatin Calcium (Atorvastatin Calcium 20 Mg Tablet) 20 mg PO QHS [facility] Last Admin: 11/30/20 21:27 Dose: 20 mg Documented by: Calamine/Phenol (Menthol/Lanolin/Calamine/Znox 113 Gm Tube) 1 applic TOPICAL 0600,2200 [facility]; Protocol Last Admin: 11/30/20 21:25 Dose: 1 applicatio Documented by: Calcium Carbonate (Calcium Carbonate 500 Mg Tablet) 500 mg PO Q6H PRN PRN PRN Reason: HEARTBURN Carvedilol (Carvedilol 12.5 Mg Tablet) 12.5 mg PO BID [facility] Last Admin: 11/30/20 21:26 Dose: 12.5 mg Documented by: Clopidogrel Bisulfate (Clopidogrel Bisulfate 75 Mg Tablet) 75 mg PO DAILY [facility] Last Admin: 11/30/20 10:18 Dose: 75 mg Documented by: Ferrous Sulfate (Ferrous Sulfate 300 Mg/5 Ml Udc) 300 mg PO DAILY [facility] Last Admin: 11/30/20 10:18 Dose: 300 mg Documented by: Folic Acid (Folic Acid 1 Mg Tablet) 1 mg PO DAILY [facility] Last Admin: 11/30/20 10:18 Dose: 1 mg Documented by: Guaifenesin (Guaifenesin 10 Ml Udc (200mg/10ml)) 10 ml PO Q4H PRN PRN PRN Reason: COUGH Sodium Chloride () 250 mls @ 15 mls/hr IV .[id number] PRN PRN Reason: Saline Flush Last Infusion: 11/26/20 16:38 Dose: Infused Documented by: Ceftriaxone Sodium (Rocephin) 1 gm in 50 mls @ 100 mls/hr IV Q24 [facility] Stop: 12/01/20 23:59 Levothyroxine Sodium (Levothyroxine 150 Mcg Tablet) 150 mcg PO DAILY [facility] Last Admin: 11/30/20 10:18 Dose: 150 mcg Documented by: Methylprednisolone (Methylprednisolone 40 Mg/Ml Vial) 40 mg IV DAILY [facility] Last Admin: 11/30/20 10:18 Dose: 40 mg Documented by: Nitroglycerin (Nitroglycerin (Inpatient Use) 0.4 Mg Tab.Subl) 0.4 mg SUBLINGUAL Q5M PRN PRN Reason: CARDIAC/CHEST PAIN Ondansetron HCl (Ondansetron 4 Mg/2 Ml Vial) 4 mg IV Q8H PRN PRN PRN Reason: NAUSEA/VOMITING Senna/Docusate Sodium (Senna/Docusate Sodium 1 Tablet) 2 tablet PO BID PRN PRN PRN Reason: Constipation Sodium Chloride (0.9% Saline Lock 10 Ml Syringe) 10 - 40 ml IV UD PRN PRN Reason: SALINE FLUSH Last Admin: 11/30/20 10:18 Dose: 10 ml Documented by: Warfarin Sodium (Jantoven 2 Mg Tablet) 2 mg PO DAILY@1700 [facility] Last Admin: 11/30/20 17:39 Dose: 2 mg Documented by: Medical Necessity - Tobacco Use Smoking Status: Former smoker Assessment/Plan All Active Problems (Last Reviewed 11/14/20 @ 14:[address] Elo Parham, DO) Acute hypoxemic respiratory failure (Acute) CHF (congestive heart failure) (Acute) Pneumonia (Acute) Acute hypoxic respiratory failure (Acute) Acute bilateral COVID-19 pneumonia (Acute) Abnormal cardiac enzyme level (Resolved) Anticoagulated on Coumadin (Resolved) RECOMMENDATIONS: 1. Continue to wean supplemental oxygen to maintain saturations at or above 90%. 2. Continue nocturnal BiPAP therapy as tolerated by patient. 3. Reevaluation by speech therapy prior to advancing diet. 4. Continue bronchodilators and antibiotics. Okay to transition to prednisone and wean over 3 to 4 weeks from my perspective (10 mg/week) 5. Continue Coumadin and check INR daily. 6. Encourage incentive spirometer use and mobilize patient as tolerated. 7. Discharge planning IMPRESSIONS: 1. Acute hypoxic and hypercarbic respiratory failure The patient was recently admitted to the hospital with respiratory failure secondary to COVID-19 pneumonia and was only home for approximately 2 days prior to returning to the hospital with worsening shortness of breath and hypoxemia. The patient's CTA showed no evidence for PE and looked similar in appearance when compared to prior imaging studies from his last hospitalization, with the exception of some increased groundglass and pleural effusions. The patient was admitted to the hospital and placed on BiPAP and scheduled IV diuretic therapy. I am concerned that the patient likely has some underlying, baseline chronic lung disease as well. Although the patient initially showed some improvement, he later decompensated from a respiratory perspective and required transfer to the ICU and subsequent intubation on November 24. Over concerns for possible postinflammatory pulmonary fibrosis or underlying, chronic steroid responsive interstitial lung process, the patient was started on IV steroids. Likely okay to transition to prednisone therapy. Patient will need a slow taper over the next 3 to 4 weeks then reevaluate for groundglass. Patient has stabilized to the point, in my opinion, but he could be evaluated for discharge planning. 2. Encephalopathy Improved. [place] to be secondary to acute CO2 narcosis. Continue current supportive measures as noted above. BiPAP therapy can be utilized if clinically needed. 3. Acute kidney injury Resolved. The patient, did for period of time, require vasopressor support. However, the patient has been weaned from Levophed at this time. We will continue to monitor creatinine and urine output for now. No current indication for renal replacement therapy. Anticipate possibly given additional diuretics tomorrow if continues to improve 4. Chronic diastolic CHF/history of ascending aortic dissection status post repair/paroxysmal A. fib/hypertensive urgency The patient presented to the hospital with what appeared to be a CHF exacerbation. However, diuretics remain on hold due to worsening renal insufficiency. 5. CKD stage III/chronic anemia/hypothyroidism/advanced age Complicates care, management, recovery and prognosis. Continue home medications as indicated. Inpatient E&M: 27103 Subs Hosp L2
[2020-12-01] MEDS: Menthol/Lanolin/Calamine/Znox 113 GM Tube 1 APPLIC TOPICAL ×2 (09:16→21:22)
[2020-12-01] MEDS: Levothyroxine 150 MCG Tablet PO (09:19)
[2020-12-01] MEDS: Clopidogrel Bisulfate 75 MG Tablet PO (09:19)
[2020-12-01] MEDS: Folic Acid 1 MG Tablet PO (09:20)
[2020-12-01] MEDS: Ferrous Sulfate 300 MG/5 ML UDC PO (09:20)
[2020-12-01] MEDS: Carvedilol 12.5 MG Tablet PO ×2 (09:20→21:22)
[2020-12-01] MEDS: Amiodarone 200 MG Tablet PO (09:20)
[2020-12-01] MEDS: 0.9% Saline Lock 10 ML Syringe IV (09:23)
[2020-12-01] MEDS: Ceftriaxone 1 GM/50 ML BAG IV (09:28)
--- NOTE | 2020-12-01 14:56 | CASEMGMT ---
ELVIN spoke with [facility] and they will have a bed for patient tomorrow. ELVIN did tell her yesterday patient went up to 8L while working with therapy. She said that is fine. ELVIN spoke with patient's son per his request. Patient was visiting with the answerer. Patient's son asked about the plan. SW let him know TCU will have a bed for patient tomorrow. He was very thankful. He will let patient know. He asked what changed that patient does not need to go to an LTACH. ELVIN told him that he improved enough on his O2 that he does not qualify for an LTACH. ELVIN explained that LTACH's are for patients that need more care than what a snf can offer. He thanked ELVIN for the explanation. Plan: [facility] TCU when ready. Jayda ALEGRE
--- NOTE | 2020-12-01 16:10 | PCM.PN.HOSP ---
Patient Problems: Active and Suspected Problems (Last Reviewed 11/14/20 @ 14:[address] Elo Parham, DO) Acute hypoxemic respiratory failure (Acute) CHF (congestive heart failure) (Acute) Pneumonia (Acute) Acute bilateral COVID-19 pneumonia (Acute) Subjective: BiPAP QHS and naps. On 5liters. Wants something to help him sleep at night. Vitals/I&O's: Vital Signs Temp Pulse Resp BP Pulse Ox 36.4 C L 82 18 152/61 H 94 12/01/20 09:10 12/01/20 15:00 12/01/20 14:34 12/01/20 09:10 12/01/20 15:49 Oxygen Flow Rate (L/min) 4 Oxygen Delivery Method Nasal Cannula Weight: 60.8 kg Body Mass Index (BMI) 24.6 Intake and Output for Last 24 Hours 11/29/20 11/30/20 12/01/20 23:59 23:59 23:59 Intake Total 350 / 350 890 / 890 280 / 280 Balance 350 / 350 890 / 890 280 / 280 General: Alert, No apparent distress HEENT: Atraumatic, Normocephalic Oral: Moist Mucosa, No Gingival or Mucosal Lesions/ Ulcerations Neck: No Nodes, Thyroid Normal Size and Texture Lungs: Diminished, - - coarse breath sounds bilaterally. Cardiovascular: Regular rate, Regular Rhythm, Normal S1, Normal S2, No murmurs Abdomen: Bowel Sounds Present, Soft, Non Tender, Non-Distended, No Hepato-splenomegaly Extremities: No edema, No Calf Tenderness Psych/Mental Status: Normal Affect, Appropriate Microbiology Past 72 Hours 12/01/20 15:15 Interface Orders SARS-CoV-2 Antigen (Rapid) - Final 11/30/20 10:50 Mucosa - Nose SARS-CoV-2 Antigen (Rapid) - Final Laboratory Results 12/01/20 04:54: WBC 8.9, RBC 3.09 L, Hgb 8.8 L, Hct 29.0 L, MCV 93.9, MCH 28.5, MCHC 30.3 L D, RDW Std Deviation 53.3 H, RDW Coeff of Ej 15.6 H, Plt Count 206, MPV 11.2 12/01/20 04:54: Sodium 147 H, Potassium 3.9, Chloride 116 H, Carbon Dioxide 28.0, Anion Gap 3 L, BUN 45 H, Creatinine 1.23, Estim Creat Clear Calc 36.02, Est GFR (MDRD) Af Amer 73, Est GFR (MDRD) Non-Af 60, BUN/Creatinine Ratio 36.6 H, Glucose 111 H, Calcium 7.4 L Current Medications Acetaminophen (Acetaminophen 650 Mg/20 Ml Udc) 650 mg PO Q6H PRN PRN PRN Reason: Pain Score 1-10/Temp > 100.7 F Albuterol Sulfate (Albuterol 2.5 Mg/3 Ml Vial.Neb.) 2.5 mg INHALATION Q2H PRN PRN PRN Reason: SOB/Wheezing Last Admin: 11/27/20 13:39 Dose: 2.5 mg Documented by: Albuterol/Ipratropium (Ipratropium/Albuterol Sulfate 3 Ml Ampul.Neb) 3 ml INHALATION Q4H.RT [facility] Last Admin: 12/01/20 14:33 Dose: 3 ml Documented by: Amiodarone HCl (Amiodarone 200 Mg Tablet) 200 mg PO DAILY [facility] Last Admin: 12/01/20 09:20 Dose: 200 mg Documented by: Atorvastatin Calcium (Atorvastatin Calcium 20 Mg Tablet) 20 mg PO QHS [facility] Last Admin: 11/30/20 21:27 Dose: 20 mg Documented by: Calamine/Phenol (Menthol/Lanolin/Calamine/Znox 113 Gm Tube) 1 applic TOPICAL 0600,2200 [facility]; Protocol Last Admin: 12/01/20 09:16 Dose: 1 applicatio Documented by: Calcium Carbonate (Calcium Carbonate 500 Mg Tablet) 500 mg PO Q6H PRN PRN PRN Reason: HEARTBURN Carvedilol (Carvedilol 12.5 Mg Tablet) 12.5 mg PO BID [facility] Last Admin: 12/01/20 09:20 Dose: 12.5 mg Documented by: Clopidogrel Bisulfate (Clopidogrel Bisulfate 75 Mg Tablet) 75 mg PO DAILY [facility] Last Admin: 12/01/20 09:19 Dose: 75 mg Documented by: Ferrous Sulfate (Ferrous Sulfate 300 Mg/5 Ml Udc) 300 mg PO DAILY [facility] Last Admin: 12/01/20 09:20 Dose: 300 mg Documented by: Folic Acid (Folic Acid 1 Mg Tablet) 1 mg PO DAILY [facility] Last Admin: 12/01/20 09:20 Dose: 1 mg Documented by: Guaifenesin (Guaifenesin 10 Ml Udc (200mg/10ml)) 10 ml PO Q4H PRN PRN PRN Reason: COUGH Sodium Chloride () 250 mls @ 15 mls/hr IV .[id number] PRN PRN Reason: Saline Flush Last Infusion: 11/26/20 16:38 Dose: Infused Documented by: Ceftriaxone Sodium (Rocephin) 1 gm in 50 mls @ 100 mls/hr IV Q24 [facility] Stop: 12/01/20 23:59 Last Infusion: 12/01/20 10:02 Dose: Infused Documented by: Levothyroxine Sodium (Levothyroxine 150 Mcg Tablet) 150 mcg PO DAILY [facility] Last Admin: 12/01/20 09:19 Dose: 150 mcg Documented by: Melatonin (Melatonin 10 Mg Tablet) 10 mg PO QHS [facility] Methylprednisolone (Methylprednisolone 40 Mg/Ml Vial) 40 mg IV DAILY [facility] Last Admin: 12/01/20 09:26 Dose: 40 mg Documented by: Nitroglycerin (Nitroglycerin (Inpatient Use) 0.4 Mg Tab.Subl) 0.4 mg SUBLINGUAL Q5M PRN PRN Reason: CARDIAC/CHEST PAIN Ondansetron HCl (Ondansetron 4 Mg/2 Ml Vial) 4 mg IV Q8H PRN PRN PRN Reason: NAUSEA/VOMITING Senna/Docusate Sodium (Senna/Docusate Sodium 1 Tablet) 2 tablet PO BID PRN PRN PRN Reason: Constipation Sodium Chloride (0.9% Saline Lock 10 Ml Syringe) 10 - 40 ml IV UD PRN PRN Reason: SALINE FLUSH Last Admin: 12/01/20 09:23 Dose: 10 ml Documented by: Warfarin Sodium (Jantoven 2 Mg Tablet) 2 mg PO DAILY@1700 [facility] Last Admin: 11/30/20 17:39 Dose: 2 mg Documented by: STROKE Vital Signs/Narrative: Vital Signs Pulse Resp Pulse Ox 12/01/20 15:49 94 12/01/20 15:00 82 12/01/20 14:34 80 18 Medical Necessity - Tobacco Use Smoking Status: Former smoker Assessment/Plan All Active Problems (Last Reviewed 11/14/20 @ 14:[address] Elo Parham DO) Acute hypoxemic respiratory failure (Acute) CHF (congestive heart failure) (Acute) Pneumonia (Acute) Acute hypoxic respiratory failure (Acute) Acute bilateral COVID-19 pneumonia (Acute) Abnormal cardiac enzyme level (Resolved) Anticoagulated on Coumadin (Resolved) 1. Acute hypoxic respiratory failure Due to combination of recent COVID-19 pneumonia and decompensated CHF + aspiration pneumonia continue BDs, steroids pulm following 11/24/2020: Patient respiratory status deteriorated resulting in patient being placed on BiPAP. Patient was found to be more lethargic than usual. Held discussion with patient's as well as son regarding patient's condition they both wanted patient to remain full code. Case was further discussed with Dr. Sparrow with intensive care decision was made to transfer patient where patient was intubated. 11/25/2020; patient had to be started on Levophed due to patient being hypotensive. Levophed has since been weaned off. Patient per nursing documentation did well on spontaneous breathing trial. 11/26/2020; patient remains on the vent did well with a weaning trial this morning. Sputum culture so far positive for Klebsiella. 11/27/2020; patient seen remains awake on the vent. Attempts at weaning this morning was unsuccessful. 11/28/2020; patient weaned off the vent discussions were held with family regarding patient's CODE STATUS changed to DNR CCA with no intubation 11/29/2020 patient was weaned off the vent the day prior. Seen this morning complains of breathing being more labored than usual. Plan is for patient to be transferred from ICU to PCU 12/10: on 5 NC 12/11: BiPAP at night and with naps. 4 L/min. Change to Po prednisone and wean over 3-4 weeks per pulm recs 2. Klebsiella Pneumonia Pip/tazo from 11/24 through 11/30, change to CTX through 12/01, then stop 3. Acute respiratory acidosis Due to a combination of decompensated respiratory failure, suspected pulmonary fibrosis and recent COVID-19 pneumonia. Patient respiratory status deteriorated resulting in patient being intubated 4. Recent COVID-19 pneumonia Patient was on admission 11/02/2020 to 11/12/2020 who presented to the emergency department on 11/14/2020 with worsening hypoxemia and shortness of breath completed quarantine 5. Acute congestive heart failure with preserved ejection fraction currently off diuretics i/o -1.07 liters total 6. Paroxysmal atrial fibrillation resume carvedilol warfarin 7. DIONI improved 8. Dyslipidemia statin 9. Dysphagia: pureed and honey thick liquids continue ST 10. Coronary artery disease Stable 11. 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 Hypothyroidism Patient is on levothyroxine home dose continued 13. Anemia Secondary to chronic disorder monitoring H&H and transfuse if patient becomes symptomatic or hemoglobin falls below 7 14. Hypertension Blood pressure controlled, home medications continued with dose adjustment as needed 15. DVT prophylaxis On Coumadin no need for additional measures 16. Debility: DC planning. SNF on 12/02 Inpatient E&M: 27779 Subs Hosp L2
[2020-12-01] MEDS: Jantoven 2 MG Tablet PO (16:36)
--- NOTE | 2020-12-01 16:56 | CHAPLAIN ---
Type of Pastoral Visit ___ Initial Visit _x__ Follow-up Visit ___ On-call Visit ___ General Patient Visit ___ Spiritual Assessment ___ Family Conference ___ Bereavement ___ Rapid Response ___ Code Blue ___ Other (describe below) Pastoral Care Referral From _x__ Patient _x__ Family ___ Nurse ___ Physician ___ Pediatric Anesthesiologist ___ [place] Nurse ___ Other (describe below) Sacrament/Intervention _x__ Active listening ___ Anointing ___ Roman Catholic ___ Bereavement ___ Communion ___ Trupti exploration ___ ___ Life review _x__ Prayer ___ Reconciliation ___ Sacrament of Sick _x__ Supportive presence ___ Wedding ___ Other (describe below) Pastoral Comments
[2020-12-01] MEDS: Atorvastatin Calcium 20 MG Tablet PO (21:22)
[2020-12-01] MEDS: MELATONIN 10 MG TABLET PO (21:22)
[2020-12-02] VITALS (12 sets, daily range): BP systolic 125–148; BP diastolic 49–55; PULSE 70–93; RESP 12–24; TEMP 36.4–36.7; O2SAT 93–95
[2020-12-02] MEDS: Menthol/Lanolin/Calamine/Znox 113 GM Tube 1 APPLIC TOPICAL (06:52)
[2020-12-02] MEDS: Ipratropium/Albuterol Sulfate 3 ML AMPUL.NEB INHALATION ×3 (07:22→15:07)
[2020-12-02 08:08] LABS: Anion Gap 4 (5-15); BUN 47 mg/dL (7-18); BUN/Creat Ratio 37.6 RATIO (10-20); Calcium,Total 7.6 mg/dL (8.5-10.1); Chloride 115 mmol/L (98-107); Creatinine, Serum 1.25 mg/dL (0.70-1.30); EST Glomerular Filtration Rate 59 mL/min (>60); Est Glom Filt Rate - Afr Amer 72 mL/min (>60); Estimated Creatinine Clearance 35.45 ml/min; Glucose 95 mg/dL (74-106); Potassium 4.4 mmol/L (3.5-5.1); Sodium Level 149 mmol/L (136-145)
[2020-12-02 08:15] LABS: International Normalized Ratio 1.3; Prothrombin Time (Protime)PT. 15.2 SECONDS (11.7-14.9)
--- NOTE | 2020-12-02 08:22 | PCM.PN.PUL ---
Patient Problems: Active and Suspected Problems (Last Reviewed 11/14/20 @ 14:[address] Elo Parham, DO) Acute hypoxemic respiratory failure (Acute) CHF (congestive heart failure) (Acute) Pneumonia (Acute) Acute bilateral COVID-19 pneumonia (Acute) Subjective: Patient did well overnight. No acute issues were reported. Patient did wear BiPAP with sleep, but is down to 3 to 4 L nasal cannula while awake. No bleeding has been reported. Patient does report a nonproductive cough, especially with movement. - Physical Exam Vitals/I&O's: Vital Signs Temp Pulse Resp BP Pulse Ox 36.6 C 88 18 138/53 H 95 12/02/20 06:48 12/02/20 07:00 12/02/20 06:48 12/02/20 06:48 12/02/20 07:51 Oxygen Flow Rate (L/min) 3 Oxygen Delivery Method Nasal Cannula Weight: 60 kg Body Mass Index (BMI) 24.6 Intake and Output for Last 24 Hours 11/30/20 12/01/20 12/02/20 23:59 23:59 23:59 Intake Total 890 / 890 640 / 640 120 / 120 Balance 890 / 890 640 / 640 120 / 120 General: Alert, Oriented x3, Cooperative, No apparent distress HEENT: Atraumatic, PERRLA, EOMI, Normocephalic, - - No scleral icterus or injection noted Oral: Moist Mucosa, No Gingival or Mucosal Lesions/ Ulcerations Neck: Supple, No JVD, No Nodes, Trachea Midline Lungs: No rhonchi, No wheeze, Diminished, Rales, - - Symmetric expansion Cardiovascular: Normal S1, Normal S2, Irregular Rate, Murmur, No rub noted, No Gallop Abdomen: Bowel Sounds Present, Soft, Non Tender, Non-Distended Extremities: No clubbing, No cyanosis, Edema - Trace lower extremity Skin: - - No changes from previous Musculoskeletal: No Tenderness to Palpation of Joints or Extremities Lymphatic: No Cervical, Supraclavicular, or Inguinal Adenopathy Neurological: Cranial nerves II-XII grossly intact, Neuro grossly intact, Motor Exam 5/5 strength throughout Psych/Mental Status: Alert and oriented to time, place, person, mood and affect Microbiology Past 72 Hours 12/01/20 15:15 Interface Orders SARS-CoV-2 Antigen (Rapid) - Final 11/30/20 10:50 Mucosa - Nose SARS-CoV-2 Antigen (Rapid) - Final Laboratory Results 12/02/20 06:05: PT 15.2 H, INR 1.3 12/02/20 06:05: Sodium 149 H, Potassium 4.4, Chloride 115 H, Carbon Dioxide 30.0, Anion Gap 4 L, BUN 47 H, Creatinine 1.25, Estim Creat Clear Calc 35.45, Est GFR (MDRD) Af Amer 72, Est GFR (MDRD) Non-Af 59 L, BUN/Creatinine Ratio 37.6 H, Glucose 95, Calcium 7.6 L Current Medications Acetaminophen (Acetaminophen 650 Mg/20 Ml Udc) 650 mg PO Q6H PRN PRN PRN Reason: Pain Score 1-10/Temp > 100.7 F Albuterol Sulfate (Albuterol 2.5 Mg/3 Ml Vial.Neb.) 2.5 mg INHALATION Q2H PRN PRN PRN Reason: SOB/Wheezing Last Admin: 11/27/20 13:39 Dose: 2.5 mg Documented by: Albuterol/Ipratropium (Ipratropium/Albuterol Sulfate 3 Ml Ampul.Neb) 3 ml INHALATION Q4H.RT [facility] Last Admin: 12/02/20 07:22 Dose: 3 ml Documented by: Amiodarone HCl (Amiodarone 200 Mg Tablet) 200 mg PO DAILY [facility] Last Admin: 12/01/20 09:20 Dose: 200 mg Documented by: Atorvastatin Calcium (Atorvastatin Calcium 20 Mg Tablet) 20 mg PO QHS [facility] Last Admin: 12/01/20 21:22 Dose: 20 mg Documented by: Calamine/Phenol (Menthol/Lanolin/Calamine/Znox 113 Gm Tube) 1 applic TOPICAL 0600,2200 [facility]; Protocol Last Admin: 12/02/20 06:52 Dose: 1 applicatio Documented by: Calcium Carbonate (Calcium Carbonate 500 Mg Tablet) 500 mg PO Q6H PRN PRN PRN Reason: HEARTBURN Carvedilol (Carvedilol 12.5 Mg Tablet) 12.5 mg PO BID [facility] Last Admin: 12/01/20 21:22 Dose: 12.5 mg Documented by: Clopidogrel Bisulfate (Clopidogrel Bisulfate 75 Mg Tablet) 75 mg PO DAILY [facility] Last Admin: 12/01/20 09:19 Dose: 75 mg Documented by: Ferrous Sulfate (Ferrous Sulfate 300 Mg/5 Ml Udc) 300 mg PO DAILY [facility] Last Admin: 12/01/20 09:20 Dose: 300 mg Documented by: Folic Acid (Folic Acid 1 Mg Tablet) 1 mg PO DAILY [facility] Last Admin: 12/01/20 09:20 Dose: 1 mg Documented by: Guaifenesin (Guaifenesin 10 Ml Udc (200mg/10ml)) 10 ml PO Q4H PRN PRN PRN Reason: COUGH Sodium Chloride () 250 mls @ 15 mls/hr IV .[id number] PRN PRN Reason: Saline Flush Last Infusion: 11/26/20 16:38 Dose: Infused Documented by: Levothyroxine Sodium (Levothyroxine 150 Mcg Tablet) 150 mcg PO DAILY [facility] Last Admin: 12/01/20 09:19 Dose: 150 mcg Documented by: Melatonin (Melatonin 10 Mg Tablet) 10 mg PO QHS [facility] Last Admin: 12/01/20 21:22 Dose: 10 mg Documented by: Nitroglycerin (Nitroglycerin (Inpatient Use) 0.4 Mg Tab.Subl) 0.4 mg SUBLINGUAL Q5M PRN PRN Reason: CARDIAC/CHEST PAIN Ondansetron HCl (Ondansetron 4 Mg/2 Ml Vial) 4 mg IV Q8H PRN PRN PRN Reason: NAUSEA/VOMITING Prednisone (Prednisone 20 Mg Tablet) 40 mg PO DAILY@0800 [facility] Senna/Docusate Sodium (Senna/Docusate Sodium 1 Tablet) 2 tablet PO BID PRN PRN PRN Reason: Constipation Sodium Chloride (0.9% Saline Lock 10 Ml Syringe) 10 - 40 ml IV UD PRN PRN Reason: SALINE FLUSH Last Admin: 12/01/20 09:23 Dose: 10 ml Documented by: Warfarin Sodium (Jantoven 2 Mg Tablet) 2 mg PO DAILY@1700 [facility] Last Admin: 12/01/20 16:36 Dose: 2 mg Documented by: Medical Necessity - Tobacco Use Smoking Status: Former smoker Assessment/Plan All Active Problems (Last Reviewed 11/14/20 @ 14:[address] Elo Parham DO) Acute hypoxemic respiratory failure (Acute) CHF (congestive heart failure) (Acute) Pneumonia (Acute) Acute hypoxic respiratory failure (Acute) Acute bilateral COVID-19 pneumonia (Acute) Abnormal cardiac enzyme level (Resolved) Anticoagulated on Coumadin (Resolved) RECOMMENDATIONS: 1. Continue to wean supplemental oxygen to maintain saturations at or above 90%. 2. Continue nocturnal BiPAP therapy as tolerated by patient. 3. Reevaluation by speech therapy prior to advancing diet. 4. Continue bronchodilators and antibiotics. Okay to transition to prednisone and wean over 3 to 4 weeks from my perspective (10 mg/week) 5. Continue Coumadin and check INR daily. 6. Encourage incentive spirometer use and mobilize patient as tolerated. 7. Discharge planning 8. Consider low-dose p.o. Lasix at baseline IMPRESSIONS: 1. Acute hypoxic and hypercarbic respiratory failure The patient was recently admitted to the hospital with respiratory failure secondary to COVID-19 pneumonia and was only home for approximately 2 days prior to returning to the hospital with worsening shortness of breath and hypoxemia. The patient's CTA showed no evidence for PE and looked similar in appearance when compared to prior imaging studies from his last hospitalization, with the exception of some increased groundglass and pleural effusions. The patient was admitted to the hospital and placed on BiPAP and scheduled IV diuretic therapy. I am concerned that the patient likely has some underlying, baseline chronic lung disease as well. Although the patient initially showed some improvement, he later decompensated from a respiratory perspective and required transfer to the ICU and subsequent intubation on November 24. Over concerns for possible postinflammatory pulmonary fibrosis or underlying, chronic steroid responsive interstitial lung process, the patient was started on IV steroids. Patient will need a slow taper of steroids over the next 3 to 4 weeks then reevaluate for groundglass. Patient has stabilized to the point, in my opinion, but he could be evaluated for discharge planning. Could consider a low-dose diuretic as patient has had some slow weight gain. Patient does not appear to be acutely overloaded. 2. Encephalopathy Improved. On[place] to be secondary to acute CO2 narcosis. Continue current supportive measures as noted above. BiPAP therapy can be utilized if clinically needed. 3. Acute kidney injury Resolved. The patient, did for period of time, require vasopressor support. However, the patient has been weaned from Levophed at this time. We will continue to monitor creatinine and urine output for now. No current indication for renal replacement therapy. Anticipate possibly given additional diuretics tomorrow if continues to improve 4. Chronic diastolic CHF/history of ascending aortic dissection status post repair/paroxysmal A. fib/hypertensive urgency The patient presented to the hospital with what appeared to be a CHF exacerbation. However, diuretics remain on hold due to worsening renal insufficiency. 5. CKD stage III/chronic anemia/hypothyroidism/advanced age Complicates care, management, recovery and prognosis. Continue home medications as indicated. Inpatient E&M: 06755 Subs Hosp L2
[2020-12-02] MEDS: predniSONE 20 MG Tablet 40 MG PO (09:25)
[2020-12-02] MEDS: Clopidogrel Bisulfate 75 MG Tablet PO (09:25)
[2020-12-02] MEDS: Carvedilol 12.5 MG Tablet PO (09:25)
[2020-12-02] MEDS: Amiodarone 200 MG Tablet PO (09:25)
[2020-12-02] MEDS: Ferrous Sulfate 300 MG/5 ML UDC PO (09:26)
[2020-12-02] MEDS: Folic Acid 1 MG Tablet PO (09:26)
[2020-12-02] MEDS: Levothyroxine 150 MCG Tablet PO (09:26)
--- NOTE | 2020-12-02 14:19 | TREXTCAR_ITS ---
- Diet 12/01/20 11:49 Diet: Regular - General Food consistency:: Pureed Liquid Consistency:: Honey/Moderately Thick Type of Dietary Supplement:: magic cup at dinner Is pt able to select menu?: Yes Diet Comments: Total feed, liquids by straw, small bites/sips, HOB 90 - Routine Orders/Code Status Routine Lab Work: CBC, BMP Code Status: DNRCC-A - no intubation - Wound(s) right arm stump Wound Type: scab Coccyx Wound Type: Pressure Injury left face cheek Wound Type: Popped blister. R Neck Wound Type: Puncture - Therapies Physical Therapy: Eval and Treat Occupational Therapy: Eval and Treat Speech Therapy: Eval and Treat - Allergies/Procedures Done in Hospital Allergies/Adverse Reactions: Allergies No Known Allergies Allergy (Verified 10/20/20 18:10) Procedures: 2-D Echocardiogram - Type of Care/Length of Stay Estimated LOS: Convalescent Care Less Than 30 days Type of Care Needed: Skilled Rehab Potential: Fair Prognosis: Fair - Additional Orders/Day of Discharge Day of Discharge: 12/02/20 - Dietary and Speech Recommendations Dietitian Recommendations/Changes: continue regular diet, consistency per [employer] until adequate PO intake at meals is established. - Follow Up Care Primary Care Physician: Ihsan Modi MD [Primary Care Provider] - Within 2 Weeks Please Follow Up With: Boo Jones MD When: 02/05/2021, already scheduled
--- NOTE | 2020-12-02 14:22 | PCM.DC.SUM ---
Discharge Date and Diagnosis - Problem List Patient Problems: Active and Suspected Problems (Last Reviewed 11/14/20 @ 14:[address] Elo Parham DO) Acute hypoxemic respiratory failure (Acute) CHF (congestive heart failure) (Acute) Pneumonia (Acute) Acute bilateral COVID-19 pneumonia (Acute) Date of Admission: 11/14/20 Date of Discharge: 12/02/20 - Primary Discharge Diagnosis Acute Problems: Active Problems (Last Reviewed 11/14/20 @ 14:[address] Elo Parham DO) 1. Acute hypoxic respiratory failure Due to combination of recent COVID-19 pneumonia and decompensated CHF + aspiration pneumonia continue BDs, steroids pulm following 11/24/2020: Patient respiratory status deteriorated resulting in patient being placed on BiPAP. Patient was found to be more lethargic than usual. Held discussion with patient's as well as son regarding patient's condition they both wanted patient to remain full code. Case was further discussed with Dr. Sparrow with intensive care decision was made to transfer patient where patient was intubated. 11/25/2020; patient had to be started on Levophed due to patient being hypotensive. Levophed has since been weaned off. Patient per nursing documentation did well on spontaneous breathing trial. 11/26/2020; patient remains on the vent did well with a weaning trial this morning. Sputum culture so far positive for Klebsiella. 11/27/2020; patient seen remains awake on the vent. Attempts at weaning this morning was unsuccessful. 11/28/2020; patient weaned off the vent discussions were held with family regarding patient's CODE STATUS changed to DNR CCA with no intubation 11/29/2020 patient was weaned off the vent the day prior. Seen this morning complains of breathing being more labored than usual. Plan is for patient to be transferred from ICU to PCU 12/10: on 5 NC 12/11: BiPAP at night and with naps. 4 L/min. Change to Po prednisone and wean over 3-4 weeks per pulm recs 2. Klebsiella Pneumonia Pip/tazo from 11/24 through 11/30, change to CTX through 12/01, then stop 3. Acute respiratory acidosis Due to a combination of decompensated respiratory failure, suspected pulmonary fibrosis and recent COVID-19 pneumonia. Patient respiratory status deteriorated resulting in patient being intubated 4. Recent COVID-19 pneumonia Patient was on admission 11/02/2020 to 11/12/2020 who presented to the emergency department on 11/14/2020 with worsening hypoxemia and shortness of breath completed quarantine 5. Acute congestive heart failure with preserved ejection fraction currently off diuretics i/o -1.07 liters total - Secondary Discharge Diagnosis Chronic Problems: Chronic Problems (Last Reviewed 11/14/20 @ 14:[address] 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 Brody Scott; Closed left hip fracture (Chronic) Aortic stenosis (Chronic) DVT (deep venous thrombosis) (Chronic) Anemia (Chronic) Chronic kidney disease (Chronic) Peripheral arterial occlusive disease (Chronic) Thoracic aortic aneurysm (Chronic) Abdominal aortic aneurysm (Chronic) BPH (benign prostatic hyperplasia) (Chronic) Urinary retention (Chronic) Closed right hip fracture (Chronic) Hyperlipidemia (Chronic) Coronary artery disease (Chronic) Hypertension (Chronic) Chronic diastolic heart failure (Chronic) Thoracic aortic aneurysm, ruptured (Chronic) Mixed hyperlipidemia (Chronic) Chronic heart failure with preserved ejection fraction (Chronic) History of aortic valve repair (Chronic ~10/28/07) Hx of repair of ascending aorta (Chronic ~10/28/07) 32mm [place] graft 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 coronary artery without angina pectoris (Chronic) COPD (chronic obstructive pulmonary disease) (Chronic) Tobacco abuse (Chronic) Tobacco dependence in remission (Chronic) Pulmonary embolism (Chronic) Hypothyroidism (Chronic) Atrial fibrillation (Chronic) Hospital Course and Treatment Imaging Results: Clinical Impression(s) from Imaging Studies Chest X-Ray 11/14/20 10:35 IMPRESSION: No change in severe congestive heart failure. Electronically Signed: Caleb Hinds MD at 11:15 EST Tel , Service support , Chest CTA 11/14/20 11:14 IMPRESSION: 1. No CT evidence of pulmonary embolism. 2. Bilateral pneumonia, pulmonary edema, or ARDS. 3. Moderate bilateral pleural effusions. Electronically Signed: Caleb Hinds MD at 12:24 EST Tel , Service support , Chest X-Ray 11/15/20 05:55 IMPRESSION: No change in bilateral pneumonia. Electronically Signed: Caleb Hinds MD at 7:22 EST Tel , Service support , Chest X-Ray 11/20/20 05:40 IMPRESSION: Progressive infiltration in both lungs worse in the peripheral aspect of the left hemithorax. Electronically Signed: Milan Cao MD at 8:03 EST , Service support , Chest CTA 11/22/20 08:15 IMPRESSION: 1. No CT evidence of pulmonary embolism. 2. Worsening bilateral pneumonia, pulmonary edema, or ARDS. 3. No change in moderate bilateral pleural effusions with bibasilar atelectasis. Electronically Signed: Caleb Hinds MD at 9:41 EST Tel , Service support , Chest X-Ray 11/24/20 10:06 IMPRESSION: The tip of the endotracheal tube is at 4.3 cm proximal to the chrissy. The tip of the orogastric tube is in the body of the stomach. Improved aeration of both lungs with residual infiltrates in both lungs. I suspect mild degree of superimposed CHF. Electronically Signed: Milan Cao MD at 10:51 EST , Service support , Chest X-Ray 11/25/20 06:42 IMPRESSION: The support tubes are unchanged. Mild degree of improved aeration of both lungs. Electronically Signed: Milan Cao MD at 9:11 EST , Service support , [facility] Operations: None Procedures: Intubation Summary of Care Provided: The patient is a 80 year old M presents with shortness of breath. 1. Acute hypoxic respiratory failure Due to combination of recent COVID-19 pneumonia and decompensated CHF + aspiration pneumonia continue BDs, steroids pulm following 11/24/2020: Patient respiratory status deteriorated resulting in patient being placed on BiPAP. Patient was found to be more lethargic than usual. Held discussion with patient's as well as son regarding patient's condition they both wanted patient to remain full code. Case was further discussed with Dr. Sparrow with intensive care decision was made to transfer patient where patient was intubated. 11/25/2020; patient had to be started on Levophed due to patient being hypotensive. Levophed has since been weaned off. Patient per nursing documentation did well on spontaneous breathing trial. 11/26/2020; patient remains on the vent did well with a weaning trial this morning. Sputum culture so far positive for Klebsiella. 11/27/2020; patient seen remains awake on the vent. Attempts at weaning this morning was unsuccessful. 11/28/2020; patient weaned off the vent discussions were held with family regarding patient's CODE STATUS changed to DNR CCA with no intubation 11/29/2020 patient was weaned off the vent the day prior. Seen this morning complains of breathing being more labored than usual. Plan is for patient to be transferred from ICU to PCU 12/10: on 5 NC 12/11: BiPAP at night and with naps. 4 L/min. Change to Po prednisone and wean over 3-4 weeks per pulm recs 2. Klebsiella Pneumonia Pip/tazo from 11/24 through 11/30, change to CTX through 12/01, then stop 3. Acute respiratory acidosis Due to a combination of decompensated respiratory failure, suspected pulmonary fibrosis and recent COVID-19 pneumonia. Patient respiratory status deteriorated resulting in patient being intubated 4. Recent COVID-19 pneumonia Patient was on admission 11/02/2020 to 11/12/2020 who presented to the emergency department on 11/14/2020 with worsening hypoxemia and shortness of breath completed quarantine 5. Acute congestive heart failure with preserved ejection fraction currently off diuretics i/o -1.07 liters total 6. Paroxysmal atrial fibrillation resume carvedilol warfarin 7. DIONI improved 8. Dyslipidemia statin 9. Dysphagia: pureed and honey thick liquids continue ST 10. Coronary artery disease Stable 11. 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 Hypothyroidism Patient is on levothyroxine home dose continued 13. Anemia Secondary to chronic disorder monitoring H&H and transfuse if patient becomes symptomatic or hemoglobin falls below 7 14. Hypertension Blood pressure controlled, home medications continued with dose adjustment as needed 15. DVT prophylaxis On Coumadin no need for additional measures[] Patient Problems: Active and Suspected Problems (Last Reviewed 11/14/20 @ 14:[address] Elo Parham, DO) Acute hypoxemic respiratory failure (Acute) CHF (congestive heart failure) (Acute) Pneumonia (Acute) Acute bilateral COVID-19 pneumonia (Acute) - Physical Exam Vitals/I&O's: Vital Signs Temp Pulse Resp BP Pulse Ox 36.7 C 81 20 H 148/49 H 94 12/02/20 09:20 12/02/20 11:22 12/02/20 11:22 12/02/20 09:20 12/02/20 09:20 Oxygen Flow Rate (L/min) 2 Oxygen Delivery Method Nasal Cannula Weight: 60 kg Body Mass Index (BMI) 24.6 Intake and Output for Last 24 Hours 11/30/20 12/01/20 12/02/20 23:59 23:59 23:59 Intake Total 890 / 890 640 / 640 360 / 360 Balance 890 / 890 640 / 640 360 / 360 General: Alert, No apparent distress HEENT: Atraumatic, Normocephalic Lungs: Normal air movement, - - coarse breath sounds bilaterally. Cardiovascular: Regular rate, Regular Rhythm, Normal S1, Normal S2, No murmurs Abdomen: Bowel Sounds Present, Soft, Non Tender, Non-Distended, No Hepato-splenomegaly Extremities: No edema, No Calf Tenderness Microbiology Past 72 Hours 12/01/20 15:15 Interface Orders SARS-CoV-2 Antigen (Rapid) - Final 11/30/20 10:50 Mucosa - Nose SARS-CoV-2 Antigen (Rapid) - Final Laboratory Results 12/02/20 06:05: PT 15.2 H, INR 1.3 12/02/20 06:05: Sodium 149 H, Potassium 4.4, Chloride 115 H, Carbon Dioxide 30.0, Anion Gap 4 L, BUN 47 H, Creatinine 1.25, Estim Creat Clear Calc 35.45, Est GFR (MDRD) Af Amer 72, Est GFR (MDRD) Non-Af 59 L, BUN/Creatinine Ratio 37.6 H, Glucose 95, Calcium 7.6 L Current Medications Acetaminophen (Acetaminophen 650 Mg/20 Ml Udc) 650 mg PO Q6H PRN PRN PRN Reason: Pain Score 1-10/Temp > 100.7 F Albuterol Sulfate (Albuterol 2.5 Mg/3 Ml Vial.Neb.) 2.5 mg INHALATION Q2H PRN PRN PRN Reason: SOB/Wheezing Last Admin: 11/27/20 13:39 Dose: 2.5 mg Documented by: Albuterol/Ipratropium (Ipratropium/Albuterol Sulfate 3 Ml Ampul.Neb) 3 ml INHALATION Q4H.RT [facility] Last Admin: 12/02/20 11:11 Dose: 3 ml Documented by: Amiodarone HCl (Amiodarone 200 Mg Tablet) 200 mg PO DAILY [facility] Last Admin: 12/02/20 09:25 Dose: 200 mg Documented by: Atorvastatin Calcium (Atorvastatin Calcium 20 Mg Tablet) 20 mg PO QHS [facility] Last Admin: 12/01/20 21:22 Dose: 20 mg Documented by: Calamine/Phenol (Menthol/Lanolin/Calamine/Znox 113 Gm Tube) 1 applic TOPICAL 0600,2200 [facility]; Protocol Last Admin: 12/02/20 06:52 Dose: 1 applicatio Documented by: Calcium Carbonate (Calcium Carbonate 500 Mg Tablet) 500 mg PO Q6H PRN PRN PRN Reason: HEARTBURN Carvedilol (Carvedilol 12.5 Mg Tablet) 12.5 mg PO BID [facility] Last Admin: 12/02/20 09:25 Dose: 12.5 mg Documented by: Clopidogrel Bisulfate (Clopidogrel Bisulfate 75 Mg Tablet) 75 mg PO DAILY [facility] Last Admin: 12/02/20 09:25 Dose: 75 mg Documented by: Ferrous Sulfate (Ferrous Sulfate 300 Mg/5 Ml Udc) 300 mg PO DAILY [facility] Last Admin: 12/02/20 09:26 Dose: 300 mg Documented by: Folic Acid (Folic Acid 1 Mg Tablet) 1 mg PO DAILY [facility] Last Admin: 12/02/20 09:26 Dose: 1 mg Documented by: Guaifenesin (Guaifenesin 10 Ml Udc (200mg/10ml)) 10 ml PO Q4H PRN PRN PRN Reason: COUGH Sodium Chloride () 250 mls @ 15 mls/hr IV .[id number] PRN PRN Reason: Saline Flush Last Infusion: 11/26/20 16:38 Dose: Infused Documented by: Levothyroxine Sodium (Levothyroxine 150 Mcg Tablet) 150 mcg PO DAILY [facility] Last Admin: 12/02/20 09:26 Dose: 150 mcg Documented by: Melatonin (Melatonin 10 Mg Tablet) 10 mg PO QHS [facility] Last Admin: 12/01/20 21:22 Dose: 10 mg Documented by: Nitroglycerin (Nitroglycerin (Inpatient Use) 0.4 Mg Tab.Subl) 0.4 mg SUBLINGUAL Q5M PRN PRN Reason: CARDIAC/CHEST PAIN Ondansetron HCl (Ondansetron 4 Mg/2 Ml Vial) 4 mg IV Q8H PRN PRN PRN Reason: NAUSEA/VOMITING Prednisone (Prednisone 20 Mg Tablet) 40 mg PO DAILY@0800 [facility] Last Admin: 12/02/20 09:25 Dose: 40 mg Documented by: Senna/Docusate Sodium (Senna/Docusate Sodium 1 Tablet) 2 tablet PO BID PRN PRN PRN Reason: Constipation Sodium Chloride (0.9% Saline Lock 10 Ml Syringe) 10 - 40 ml IV UD PRN PRN Reason: SALINE FLUSH Last Admin: 12/01/20 09:23 Dose: 10 ml Documented by: Warfarin Sodium (Jantoven 2 Mg Tablet) 2 mg PO DAILY@1700 [facility] Last Admin: 12/01/20 16:36 Dose: 2 mg Documented by: Home Medications: Medications to take at Discharge nitroglycerin 0.4 mg sublingual tablet 0.4 mg SUBLINGUAL Q5-15M PRN 04/23/18 levothyroxine 100 mcg tablet 150 mcg PO DAILY tab 12/04/19 Furosemide 40 mg PO DAILY 04/07/20 Rosuvastatin Calcium [Crestor] 10 mg PO QHS 05/02/20 cholecalciferol (vitamin D3) 50 mcg (2,000 unit) capsule 50 mcg PO DAILY 08/21/20 clopidogrel 75 mg tablet 75 mg PO DAILY 08/21/20 folic acid 1 mg tablet 1 mg PO DAILY 08/21/20 Acetaminophen [Tylenol] 1,000 mg PO Q8 08/28/20 Calcium Carbonate [Tums] 500 mg PO Q6H PRN PRN tab 08/28/20 Iron Polysaccharide Complex [Ferrex 150] 150 mg PO DAILYCM #30 cap 09/15/20 Menthol/Lanolin/Calamine/Znox [Calmoseptine Ointment] 1 applic TOPICAL 0600,2200 tube 09/15/20 amiodarone 200 mg tablet 200 mg PO DAILY #90 tab 10/12/20 Albuterol Inhaler [Ventolin Hfa] 2 puff INHALATION Q4H PRN PRN #1 inhaler 11/12/20 Ramipril [Altace] 5 mg PO DAILY #0 11/12/20 Warfarin [Coumadin] 2 mg PO DAILY #30 tab 11/12/20 Carvedilol 12.5 mg PO BID #0 12/02/20 Primary Care Physician: Ihsan Modi MD [Primary Care Provider] - Within 2 Weeks Please Follow Up With: Boo Jones MD When: 02/05/2021, already scheduled Disposition: Long-Term facility Minutes spent on discharge:: 32 Medical Necessity - Tobacco Use Smoking Status: Former smoker Meaningful Use Info Meaningful Use Diagnoses (Choose all that apply): None applicable Inpatient E&M: 63648 Disch Hosp
--- NOTE | 2020-12-02 14:43 | PHA.DC.MR ---
Pharmacy Service has performed discharge medication reconciliation for this patient. The patient's discharge medication list was reviewed for discrepancies and discrepancies were resolved. Home Medications nitroglycerin 0.4 mg sublingual tablet 0.4 mg SUBLINGUAL Q5-15M PRN 04/23/18 levothyroxine 100 mcg tablet 150 mcg PO DAILY tab 12/04/19 Furosemide 40 mg PO DAILY 04/07/20 Rosuvastatin Calcium [Crestor] 10 mg PO QHS 05/02/20 cholecalciferol (vitamin D3) 50 mcg (2,000 unit) capsule 50 mcg PO DAILY 08/21/20 clopidogrel 75 mg tablet 75 mg PO DAILY 08/21/20 folic acid 1 mg tablet 1 mg PO DAILY 08/21/20 Acetaminophen [Tylenol] 1,000 mg PO Q8 08/28/20 Calcium Carbonate [Tums] 500 mg PO Q6H PRN PRN tab 08/28/20 Iron Polysaccharide Complex [Ferrex 150] 150 mg PO DAILYCM #30 cap 09/15/20 Menthol/Lanolin/Calamine/Znox [Calmoseptine Ointment] 1 applic TOPICAL 0600,2200 tube 09/15/20 amiodarone 200 mg tablet 200 mg PO DAILY #90 tab 10/12/20 Albuterol Inhaler [Ventolin Hfa] 2 puff INHALATION Q4H PRN PRN #1 inhaler 11/12/20 Ramipril [Altace] 5 mg PO DAILY #0 11/12/20 Warfarin [Coumadin] 2 mg PO DAILY #30 tab 11/12/20 Carvedilol 12.5 mg PO BID #0 12/02/20
--- NOTE | 2020-12-02 14:52 | CASEMGMT ---
Social Work Pt is ready for discharge today. TCU is able to accept pt. SW met with pt and he is agreeable to discharge to TCU. Phone call to son Tab and updated as well. Orders faxed to TCU and nursing updated on d/c plan. CHANNING Burns
--- NOTE | 2020-12-02 15:54 | NURSING ---
Report called to nurse Contreras for pt transfer to TCU
== END 2020-12-02 16:31 | disposition skilled nursing facility (03) | DRG 208 ==
LOC: ED 13:40 → ICU 13:51 → MS2 11-16 07:06 → PCU 11-19 13:56 → ICU 11-24 09:13 → PCU 11-29 09:51
PROVIDERS: Family Medicine; Internal Medicine; Internal Medicine Critical Care Medicine; Admitting Provider Internal Medicine; Emergency Provider Emergency Medicine; PCP Family Medicine
DX: J96.21 Acute and chronic respiratory failure with hypoxia (principal); U07.1 COVID-19; I50.33 Acute on chronic diastolic (congestive) heart failure; N17.0 Acute kidney failure with tubular necrosis; J15.0 Pneumonia due to Klebsiella pneumoniae; J12.82 Pneumonia due to coronavirus disease 2019; R57.8 Other shock; J69.0 Pneumonitis due to inhalation of food and vomit; I48.21 Permanent atrial fibrillation; J44.0 Chronic obstructive pulmonary disease with (acute) lower respiratory infection; I13.0 Hypertensive heart and chronic kidney disease with heart failure and stage 1 through stage 4 chronic kidney disease, or unspecified chronic kidney disease; E87.0 Hyperosmolality and hypernatremia; G93.40 Encephalopathy, unspecified; E87.2 Acidosis; J96.22 Acute and chronic respiratory failure with hypercapnia; D50.9 Iron deficiency anemia, unspecified; I16.0 Hypertensive urgency; K44.9 Diaphragmatic hernia without obstruction or gangrene; N40.1 Benign prostatic hyperplasia with lower urinary tract symptoms; R33.8 Other retention of urine; I25.10 Atherosclerotic heart disease of native coronary artery without angina pectoris; N18.30 Chronic kidney disease, stage 3 unspecified; B35.1 Tinea unguium; E78.2 Mixed hyperlipidemia; E03.9 Hypothyroidism, unspecified; I73.9 Peripheral vascular disease, unspecified; Z86.718 Personal history of other venous thrombosis and embolism; Z86.711 Personal history of pulmonary embolism; Z87.891 Personal history of nicotine dependence; Z95.2 Presence of prosthetic heart valve; Z79.01 Long term (current) use of anticoagulants; R79.1 Abnormal coagulation profile; Z66 Do not resuscitate; R13.10 Dysphagia, unspecified
CPT/HCPCS: 31500; 31720; 36415; 36600; 71045; 71046; 71275; 80048; 80053; 80202; 81001; 82274; 82550; 82803; 82962; 83605; 83735; 83880; 84100; 84145; 84478; 84484; 85025; 85027; 85610; 85730; 86038; 86200; 86225; 86235; 86256; 86431; 86850; 86900; 86901; 86920; 86922; 87040; 87070; 87077; 87186; 87205; 87426; 87449; 87633; 87641; 92526; 92610; 93005; 93306; 94002; 94003; 94640; 94660; 97110; 97116; 97162; 97163; 97165; 97530; 97535; 97802; 97803; 99251; 99285; J7030; J7040; J7050; P9016; P9040; Q9967; A4216; C1751; G0463; J1940; J3010

== ENCOUNTER 2020-12-02 16:35 | Inpatient (IN) | payer MEDICARE, OTHER, SELFPAY ==
[2020-11-25 12:33] VITALS: BMI 24.6
[2020-12-02 16:37] VITALS: BP 137/59; PULSE 93; RESP 22; TEMP 36.8; O2SAT 92; BMI 25.3
--- NOTE | 2020-12-02 16:48 | NURSING ---
Spoke with patient about code status, received his code status in PCU, pt stated he wanted to remain a DNRCC-A with no intubation.
--- NOTE | 2020-12-02 20:09 | HP.PCM_ITS ---
Problem List (1) Debility Status: Acute (2) Klebsiella pneumonia Status: Acute (3) Aspiration pneumonia Status: Acute (4) Acute on chronic diastolic congestive heart failure Status: Chronic (5) Acute hypoxemic respiratory failure Status: Acute (6) Acute bilateral COVID-19 pneumonia Status: Acute (7) Aortic stenosis Status: Chronic (8) DVT (deep venous thrombosis) Status: Chronic (9) Chronic kidney disease Status: Chronic (10) Peripheral arterial occlusive disease Status: Chronic (11) Thoracic aortic aneurysm Status: Chronic (12) Abdominal aortic aneurysm Status: Chronic Qualifiers: (13) BPH (benign prostatic hyperplasia) Status: Chronic (14) Hyperlipidemia Status: Chronic Qualifiers: (15) Coronary artery disease Status: Chronic (16) Hypertension Status: Chronic Qualifiers: (17) COPD (chronic obstructive pulmonary disease) Status: Chronic (18) Pulmonary embolism Status: Chronic (19) Hypothyroidism Status: Chronic (20) Atrial fibrillation Status: Chronic Qualifiers: History of Present Illness Date of Admission: 12/02/20 Chief Complaint: Here for rehabilitation, strengthening, prior to disposition determination. 11/14/2020 The patient is a 80 year old Male with below past medical history presented to [facility] with shortness of breath. 11/14/2020 EKG atrial fibrillation, left axis deviation, incomplete left bundle branch block, voltage criteria for LVH, ST&T wave abnormality, consider lateral ischemia, prolonged QT. COVID-19, Hypoxia, on 4 Liters oxygen per [place] at home. More short of breath, legs swollen. Pulsox 80%. Lasix 80MG IV given. Vancomycin, Zosyn, Azithromycin given for healthcare associated pneumonia. BiPAP for respiratory failure. 11/14/2020 Admit to Hospital. Vancomycin, Zosyn for pneumonia. Lasix 80MG twice daily for heart failure with preserved ejection fraction. Acute respiratory failure secondary to COVID19 pneumonia, acute on chronic diastolic congestive heart failure, aspiration pneumonia. Required intubation, pressors. Discharged with slow prednisone taper. Klebsiella pneumonia treated with Zosyn, then Rocephin, then stopped. Diuretics stopped for acute on chronic diastolic congestive heart failure. 12/02/2020 Admit to TCU with debility, here for rehabilitation, strengthening, prior to disposition determination, consider hospice. Past Medical History Past Medical History (Chronic Problems): Chronic Problems (Last Reviewed 11/14/20 @ 14:[address] Elo Parham DO) Acute on chronic diastolic congestive heart failure (Chronic) Failed total hip arthroplasty (Chronic) Chronic left hip pain (Chronic) Other specified peripheral vascular diseases (Chronic) Tinea unguium (Chronic) Thoracoabdominal aneurysm (Chronic) Placement of a [place] VBX 6 x 29 balloon expandable covered stent into the left renal artery aneurysm and dissection, placement of an 8 x 150 Viabahn to left popliteal aneurysm and left popliteal artery postdilated tension with a 8 x 100 pathology technician balloon on 04/16/[address] [facility] [address] Brody Scott; Closed left hip fracture (Chronic) Aortic stenosis (Chronic) DVT (deep venous thrombosis) (Chronic) Anemia (Chronic) Chronic kidney disease (Chronic) Peripheral arterial occlusive disease (Chronic) Thoracic aortic aneurysm (Chronic) Abdominal aortic aneurysm (Chronic) BPH (benign prostatic hyperplasia) (Chronic) Urinary retention (Chronic) Closed right hip fracture (Chronic) Hyperlipidemia (Chronic) Coronary artery disease (Chronic) Hypertension (Chronic) Chronic diastolic heart failure (Chronic) Thoracic aortic aneurysm, ruptured (Chronic) Mixed hyperlipidemia (Chronic) Chronic heart failure with preserved ejection fraction (Chronic) History of aortic valve repair (Chronic ~10/28/07) Hx of repair of ascending aorta (Chronic ~10/28/07) 32mm Hem[place]ield graft 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) Onset Date: ~10/28/07 I71.01 Essential hypertension (Chronic) I10 Atherosclerotic heart disease of [place] coronary artery without angina pectoris (Chronic) I25.10 Tobacco dependence in remission (Chronic) F17.201 Pulmonary embolism (Chronic) I26.99 Hypothyroidism (Chronic) E03.9 Atrial fibrillation (Chronic) 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) I71.3 Squamous cell carcinoma of skin (Inactive) C44.92 Allergies No Known Allergies Allergy (Verified 10/20/20 18:10) Home Medications: Ambulatory Orders Medication Instructions Recorded nitroglycerin 0.4 mg sublingual 0.4 mg SUBLINGUAL Q5-15M PRN 04/23/18 tablet levothyroxine 100 mcg tablet 150 mcg PO DAILY tab 12/04/19 Furosemide 40 mg PO DAILY 04/07/20 Rosuvastatin Calcium [Crestor] 10 mg PO QHS 05/02/20 cholecalciferol (vitamin D3) 50 50 mcg PO DAILY 08/21/20 mcg (2,000 unit) capsule clopidogrel 75 mg tablet 75 mg PO DAILY 08/21/20 folic acid 1 mg tablet 1 mg PO DAILY 08/21/20 Acetaminophen [Tylenol] 1,000 mg PO Q8 08/28/20 Calcium Carbonate [Tums] 500 mg PO Q6H PRN PRN tab 08/28/20 amiodarone 200 mg tablet 200 mg PO DAILY #90 tab 10/12/20 Albuterol Inhaler [Ventolin Hfa] 2 puff INHALATION Q4H PRN PRN #1 11/12/20 inhaler Ramipril [Altace] 5 mg PO DAILY #0 11/12/20 Carvedilol 12.5 mg PO BID #0 12/02/20 Iron Polysaccharide Complex 150 mg PO DAILYCM 12/02/20 [Ferrex 150] Menthol/Lanolin/Calamine/Znox 1 applic TOPICAL 0600,2200 12/02/20 [Calmoseptine Ointment] Warfarin [Coumadin] 2 mg PO DAILY 12/02/20 Surgical History: Surgical History (Last Reviewed 11/14/20 @ 14:[address] Elo Parham, DO) Thoracoabdominal aneurysm (Chronic) I71.6 Placement of a [place] VBX 6 x 29 balloon expandable covered stent into the left renal artery aneurysm and dissection, placement of an 8 x 150 Viabahn to left popliteal aneurysm and left popliteal artery postdilated tension with a 8 x 100 pathology technician balloon on 04/16/[address] [facility] [address] 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 Psychiatric History: No pertinent psych hx Lives: Spouse/ Significant Other Smoking Status: Former smoker Tobacco Use: Non-smoker, Cigarettes Drugs: None - *Family History Maternal Family History: Family History (Last Reviewed 11/14/20 @ 14:[address] Elo Parham DO) Grandfather Diabetes Brother Heart disease History Items: No pertinent history Paternal Family History: Family History (Last Reviewed 11/14/20 @ 14:[address] Elo Parham DO) Grandfather Diabetes Brother Heart disease History Items: No pertinent history Offspring Family History: Family History (Last Reviewed 11/14/20 @ 14:[address] Elo Parham DO) Grandfather Diabetes Brother Heart disease History Items: Hypertension, Seizures, - - Intellectual Delay. Review of Systems Constitutional: Denies: Chills, Fever, Weight Change HEENT: Denies: Head Aches, Sinus Congestion, Sinus Drainage Cardiovascular: Denies: Chest Pain, Palpitations Respiratory: Denies: Cough, Shortness of breath at rest, Sputum production Gastrointestinal: Denies: Abdominal Pain, Nausea, Vomiting Genitourinary: Denies: Dysuria Musculoskeletal: Denies: Joint Pain, Joint Tenderness Skin: Denies: Rash, Wounds Neurological: Denies: Numbness, Tingling, Focal weakness Psychiatric: Denies: Anxiety, Depression, Homicidal Ideations, Suicidal Ideations Hematologic/ Lymphatic: Denies: Easy Bruising, Easy Bleeding VTE Information - Inpt Only VTE Present on Admission: No VTE Mechan Device Prophylaxis: Knee High MARIUM Hose VTE Pharm Prophylaxis ordered?: No Reason prophylaxis not ordered:: Treatment Not Indicated Patient Problems: Active and Suspected Problems (Last Reviewed 11/14/20 @ 14:[address] Elo Parham, DO) Acute hypoxemic respiratory failure (Acute) Debility (Acute) Klebsiella pneumonia (Acute) Aspiration pneumonia (Acute) Acute bilateral COVID-19 pneumonia (Acute) - Physical Exam Vitals/I&O's: Vital Signs Temp Pulse Resp BP Pulse Ox 98.3 F 93 22 H 137/59 H 92 12/02/20 16:37 12/02/20 16:37 12/02/20 16:37 12/02/20 16:37 12/02/20 16:37 Oxygen Flow Rate (L/min) 4 Oxygen Delivery Method Nasal Cannula Weight: 60.8 kg Body Mass Index (BMI) 25.3 General: Alert, Oriented x3, Cooperative HEENT: Atraumatic, PERRLA, EOMI, Normocephalic Neck: Supple, No JVD, Negative Carotid Bruits Lungs: Clear to auscultation, Normal air movement Cardiovascular: Regular rate, No murmurs Abdomen: Bowel Sounds Present, Soft, Non Tender Extremities: No edema, Capillary Refill Less than 3 Seconds Skin: No rashes, No breakdown Musculoskeletal: No Tenderness to Palpation of Joints or Extremities Neurological: Cranial nerves II-XII grossly intact Psych/Mental Status: Normal Affect, Appropriate Current Medications Acetaminophen (Acetaminophen 500 Mg Tablet) 1,000 mg PO Q8 SILVERIO Albuterol Sulfate (Albuterol Sulfate 8 Gm Inhaler (60 Puffs)) 2 puff INHALATION Q4H PRN PRN PRN Reason: Shortness of breath, wheezing Amiodarone HCl (Amiodarone 200 Mg Tablet) 200 mg PO DAILY [facility] Atorvastatin Calcium (Atorvastatin Calcium 20 Mg Tablet) 20 mg PO QHS SILVERIO Calamine/Phenol (Menthol/Lanolin/Calamine/Znox 113 Gm Tube) 1 applic TOPICAL 0600,2200 SILVERIO; Protocol Calcium Carbonate (Calcium Carbonate 500 Mg Tablet) 500 mg PO Q6H PRN PRN PRN Reason: HEARTBURN Carvedilol (Carvedilol 12.5 Mg Tablet) 12.5 mg PO BID [facility] Cholecalciferol (Cholecalciferol (Vit D3) 1,000 Unit (25mcg)) 2,000 unit PO DAILY [facility] Clopidogrel Bisulfate (Clopidogrel Bisulfate 75 Mg Tablet) 75 mg PO DAILY [facility] Folic Acid (Folic Acid 1 Mg Tablet) 1 mg PO DAILYCM [facility] Furosemide (Furosemide 40 Mg Tablet) 40 mg PO DAILY [facility] Levothyroxine Sodium (Levothyroxine 150 Mcg Tablet) 150 mcg PO DAILY [facility] Nitroglycerin (Nitroglycerin (Inpatient Use) 0.4 Mg Tab.Subl) 0.4 mg SUBLINGUAL Q5M PRN PRN Reason: CARDIAC/CHEST PAIN Polysaccharide Iron Complex (Iron Polysaccharide Complex 150 Mg Capsule) 150 mg PO DAILY SILVERIO Ramipril (Ramipril 5 Mg Capsule) 5 mg PO DAILY [facility] Sodium Chloride (0.9% Saline Lock 10 Ml Syringe) 10 - 40 ml IV UD PRN PRN Reason: SALINE FLUSH Tuberculin PPD (Tuberculin,Purif.Prot.Deriv. 50 Tu/Ml Vial) 5 tu ID X1 ONE Stop: 12/03/20 10:01 Tuberculin PPD (Tuberculin,Purif.Prot.Deriv. 50 Tu/Ml Vial) 5 tu ID X1 ONE Stop: 12/10/20 10:01 Warfarin Sodium (Jantoven 2 Mg Tablet) 2 mg PO DAILY@1700 [facility] Assessment/Plan All Active Problems (Last Reviewed 11/14/20 @ 14:[address] Elo Parham, DO) Acute hypoxemic respiratory failure (Acute) CHF (congestive heart failure) (Acute) Pneumonia (Acute) Debility (Acute) Klebsiella pneumonia (Acute) Aspiration pneumonia (Acute) Acute hypoxic respiratory failure (Acute) Acute bilateral COVID-19 pneumonia (Acute) Abnormal cardiac enzyme level (Resolved) Anticoagulated on Coumadin (Resolved) 80 year old male with below past medical history hospitalized for acute hypoxic respiratory failure requiring intubation, pressors, secondary to COVID19 pneumo vidhi, acute on chronic diastolic congestive heart failure, aspiration pneumonia, admitted to TCU with debility, here for rehabilitation, strengthening, prior to disposition determination, consider hospice. * Debility - PT/OT. * Dysphagia - ST. * Pain - Tylenol 1000MG Q8H. * Bowel - Miralax 17GM daily PRN, MOM 30ML daily PRN, Senna/colace 2 tablets BID PRN constipation, Dulcolax 10MG PO daily PRN, constipation. * Adult immunization - Administer Prevnar 13, Pneumovax 23, Fluzone, COVID19 vaccine as appropriate. * DVT prophylaxis - Not necessary, already on warfarin. * COPD - Albuterol MDI 2 puffs Q4H PRN. * Atrial fibrillation - Coreg 12.5MG BID, Amiodarone 200MG daily, Warfarin 2MG daily, follow INR. * Hyperlipidemia - Atorvastatin 20MG QHS. * Indigestion - TUMS 500MG Q6H PRN. * Vitamin D deficiency - D3 2000IU daily. * Coronary Artery Disease - Coreg 12.5MG BID, Ramipril 5MG daily, Plavix 75MG daily, warfarin 2MG daily, NTG 0.4MG Q5M PRN. * Folate deficiency - Folic acid 1MG daily. * Chronic diastolic congestive heart failure - Coreg 12.5MG BID, Ramipril 5MG daily, Lasix 40MG daily. * Iron deficiency anemia - Ferrex 150MG daily. * Hypothyroidism - Levothyroxine 150MCG daily. * Skin irritation - Calmoseptine topical BID.
[2020-12-02] MEDS: Jantoven 2 MG Tablet PO (20:21)
[2020-12-02] MEDS: Carvedilol 12.5 MG Tablet PO (20:22)
[2020-12-02] MEDS: Atorvastatin Calcium 20 MG Tablet PO (20:23)
[2020-12-02] MEDS: Acetaminophen 500 MG Tablet 1000 MG PO (20:23)
[2020-12-02] MEDS: Menthol/Lanolin/Calamine/Znox 113 GM Tube 1 APPLIC TOPICAL (20:24)
[2020-12-03 00:48] VITALS: BMI 25.3
[2020-12-03] MEDS: Levothyroxine 150 MCG Tablet PO (05:04)
[2020-12-03] MEDS: Amiodarone 200 MG Tablet PO (05:05)
[2020-12-03] MEDS: Furosemide 40 MG Tablet PO (05:06)
[2020-12-03] MEDS: Acetaminophen 500 MG Tablet 1000 MG PO ×3 (05:06→21:03)
[2020-12-03] MEDS: Iron Polysaccharide Complex 150 MG CAPSULE PO (05:06)
[2020-12-03] MEDS: Ramipril 5 MG Capsule PO (05:07)
[2020-12-03] MEDS: Menthol/Lanolin/Calamine/Znox 113 GM Tube 1 APPLIC TOPICAL ×2 (05:07→21:03)
[2020-12-03] MEDS: Clopidogrel Bisulfate 75 MG Tablet PO (05:07)
[2020-12-03] MEDS: Carvedilol 12.5 MG Tablet PO ×2 (05:07→17:20)
[2020-12-03] MEDS: 0.9% Saline Lock 10 ML Syringe IV (05:12)
[2020-12-03 05:30] VITALS: BP 145/62; PULSE 85; RESP 20; TEMP 36.3; O2SAT 93
[2020-12-03 05:45] LABS: Hematocrit 31.4 % (40-54); Hemoglobin 9.2 g/dL (13.0-16.5); Mean Corp Hgb Conc 29.3 g/dL (32-36); Mean Corpuscular Volume 95.4 fL (80-94); Mean Platelet Vol. 10.5 fl (6.2-12.0); POSITIVE COUNT YES; POSITIVE DIFFERENTIAL YES; POSITIVE MORPHOLOGY YES; Platelet Count 380 K/mm3 (150-450); RBC Distribution Width CV 16.1 % (11.6-14.6); RBC Distribution Width SD 55.5 fl (35.1-43.9); Red Blood Count 3.29 M/mm3 (4.6-6.2); White Blood Count 18.2 K/mm3 (4.4-11.0)
[2020-12-03 05:49] LABS: Differential Indicated MANUAL DIFF
[2020-12-03 06:09] LABS: Anion Gap 4 (5-15); BUN 49 mg/dL (7-18); Calcium,Total 7.6 mg/dL (8.5-10.1); Chloride 114 mmol/L (98-107); Creatinine, Serum 1.29 mg/dL (0.70-1.30); EST Glomerular Filtration Rate 57 mL/min (>60); Est Glom Filt Rate - Afr Amer 69 mL/min (>60); Estimated Creatinine Clearance 34.35 ml/min; Glucose 109 mg/dL (74-106); Potassium 3.9 mmol/L (3.5-5.1); Sodium Level 150 mmol/L (136-145)
[2020-12-03 06:12] LABS: Neutrophil-Band 4 % (0-5); Neutrophil-Segmented 84 % (47-70); Total Cells Counted 100 (MANUAL DIFF)
[2020-12-03 06:13] LABS: Eosinophil 1 % (0-5); Lymphocyte 1 % (19-41); Monocyte 7 % (0-10); Myelocyte 3 (0-0)
[2020-12-03 06:15] LABS: Ovalocyte RARE; Platelet Estimate ADEQUATE (ADEQ); Schistocytes RARE
[2020-12-03 06:20] LABS: Absolute Lymphocyte Count 0.18 X10^3/uL (0.83-4.51); Lymphocyte # 0.18 X10^3/ul (4.0); Neutrophil # 15.99 X10^3/uL (2.7-7.7)
[2020-12-03 06:38] VITALS: O2SAT 95
[2020-12-03 08:40] LABS: Prothrombin Time (Protime)PT. 22.5 SECONDS (11.7-14.9)
[2020-12-03] MEDS: Sodium Chloride 0.65% 1 SPRAY SPRAY.BTL 2 SPRAY NASAL (10:35)
[2020-12-03] MEDS: Tuberculin,Purif.prot.deriv. 50 TU/ML Vial 5 ML ID (10:36)
[2020-12-03] MEDS: Folic Acid 1 MG Tablet PO (10:37)
--- NOTE | 2020-12-03 11:35 | SP.MBSS_ITS ---
Modified Barium Swallow - Patient Information Study Date: 12/03/20 Study Time: 10:30 Direct Billable Minutes: 120 Total Minutes procedure & reportin Diagnosis: oropharyngeal dysphagia (R13.12) Referring Physician: Aidan Santos Chi Reason for Referral: concern for aspiration Medical History: Moises read is a 80/M who had a recent admission from 11/02/2020 to 11/12/2020 for acute COVID-19 pneumonia and was discharged home on 4 L nasal cannula represented to the emergency department today, 11/14/2020, complaining of hypoxemia and worsening shortness of breath. He had been on his 4 L since discharge and upon home visit today the home care nurse found his oxygen saturations in the low 80s on his 4 L. He reported feeling short of breath at night and noted in the emergency department that his legs were more swollen than normal although when I asked him he states that his legs are chronically swollen and this was about his baseline. He denies any fever or chills, nausea vomiting, cough, or chest pain, but does complain of increased shortness of breath at rest, with exertion, and with lying flat. He denies any changes in his p.o. intake after discharge including salt and fluid intake. He had his last echo done here on 02/10/2019 and this showed an EF of 55%/severe concentric LVH/biatrial enlargement/mild to moderate mitral valve insufficiency/aortic sclerosis with no stenosis/and mild elevations in right ventricular systolic pressure. His vital signs in the emergency department fluctuated from oxygen saturations in this upper 70s to 90s on 4 to 5 L nasal cannula and the patient was converted to BiPAP at 50% with an IPAP of 12 and an EPAP of 6. Oxygen saturations have stabilized to 96-98% with the initiation of BiPAP. He is afebrile, hypertensive with systolic blood pressures in the 150s to 160s and normal diastolic pressures, normal heart rate and tachypnea with respiratory rates in the 20s. A CTA of his chest was done and showed no evidence of pulmonary embolism but bilateral patchy infiltrates consistent with bilateral pneumonia versus pulmonary edema versus ARDS and mild to moderate bilateral pleural effusions. Baseline he is on 40 mg of Lasix a day. Laboratory data showed an elevated white count as compared to when he was here and on Decadron, mild stable anemia, therapeutic INR at 2.5, mild hypernatremia and hyperchloremia, mild BUN elevation with a with a mildly elevated creatinine but this appears to be his baseline BNP was 419, UA was negative. Blood cultures were obtained in the emergency department and he was started on vancomycin and Zosyn empirically. He was also given Lasix for diuresis. He will be admitted to the ICU given his intermittent need for BiPAP and potential for respiratory decompensation. Pt intubated 11/24/20 and extubated this morning 11/28/20 at 6:55am. Pt transferred from ICU to PCU and is now admitted to TCU for rehabilitation. Current Diet Ordered: puree textures/moderately thick liquids Dentition: Natural Teeth, Upper Dentures Mental Status: WNL Respiratory Status: Oxygenating on 4L/M nasal cannula - Study Findings Consistencies: Thin Liquid, [place] Thick Liquid, Honey Thick Liquid, Pudding, Cookie - Penetration-Aspiration Scale Penetration-Aspiration Scale: OBJECTIVE ASSESSMENT OF SWALLOW FUNCTION (QUANTITATIVE ? PER TRIAL): PENETRATION / ASPIRATION SCALE (FAYE): 1 = does not enter airway 2 = enters airway/above vocal folds/ejected 3 = enters airway/above vocal folds/not ejected 4 = enters airway/contacts vocal folds/ejected 5 = enters airway/contacts vocal folds/not ejected 6 = enters airway/below vocal folds/ejected 7 = enters airway/below vocal folds/not ejected despite effort 8 = enters airway/below vocal folds/no effort - Penetration-Aspiration Scale Score Thin Liquid via teaspoon Result: 1= does not enter airway Thin Liquid via teaspoon Trial 2 Result: 1= does not enter airway Thin Liquid via small single sip from cup Result: 5= enters airways/contacts vocal folds/not ejected Thin Liquid via large single sip from cup Result: 7= enters airways/below vocal folds/not ejected despite effort Thin Liquid via sequential sips from cup Result: 8= enters airway/below vocal folds/no effort [place] Thick Liquid via small single sip from cup Result: 5= enters airways/contacts vocal folds/not ejected Honey Thick Liquid via small single sip from cup Result: 1= does not enter airway Pudding Result: 1= does not enter airway Cookie Result: 1= does not enter airway Honey Thick Liquid via sequential sips from straw Result: 1= does not enter airway [place] Thick Liquid via large single sip from cup Result: 2= enter airway/above vocal folds/ejected Comment: cues to cough and re-swallow - Oral Phase Labial Seal: No Labial Escape Tongue Control During Bolus Hold: Escape to lateral buccal cavity/floor of mouth Bolus Preparation/Mastication: Disorganized chewing/mashing with solid pieces of bolus unchewed Oral Residue: Residue collection on oral structures - Pharyngeal Phase Initiation of Pharyngeal Swallow: Bolus head at posterior laryngeal surgace of epiglottis Soft Palate Elevation: No bolus between soft palate and pharyngeal wall Laryngeal Elevation: Partial superior movement thyroid cart/partial apprx aryt- epig petiole Anterior Hyoid Excursion: Partial anterior movement Epiglottic Movement: Partial inversion Laryngeal Vestibule Closure at Height of Swallow: Incomplete; narrow column of air/contrast in laryngeal vestibule Pharyngeal Stripping Wave: Present - diminished Pharyngoesophageal Segment Opening: Parital distension and partial duration; parital obstruction of flow Tongue Base Retraction: Narrow column of contrast between tongue base & post. pharyngeal wall Pharyngeal Residue: Collection of residue within or on pharyngeal structures - Diagnosis/Impression Diagnosis: moderate oropharyngeal dysphagia (R13.12) Impression: The patient completed trials of thin liquid via cup and was found to have silent aspiration with sequential sips and overt aspiration with larger sips although coughing ineffective at clearing residue. Throughout trials patient found to have copious amounts of pharyngeal residue particularly in the valleculae due to poor and inconsistent epiglottic inversion. Patient demonstrated penetration to the vocal cords with nectar thick liquids although cued to cough and reswallow with improvement. The patient was able to tolerate honey thick liquids via cup and straw with no aspiration or penetration although continued to require frequent cues to cough and re-swallow. Pt trialed very small piece of Rashida Doone shortbread cookie with bolus dispersement throughout oral cavity and slow mastication. Pt requires several swallows to clear oral cavity. Recommending nectar thick liquids and puree textures with plan to repeat MBS study as clinically appropriate in 4-6 weeks. - Recommendations Diet: Puree Textures, [place]-thick Liquids Compensatory Strategies: Small Bites, Small Sips, Slow Rate, Feed only when alert, Multiple Swallows, Sitting upright, Remain sitting upright for 30 minutes after PO intake, Assist with verbal cues to use recommended strategies Supervision: Total Feed Recommend Repeat Modified Barium Swallow: Yes Comment: 4-6 weeks Need for Skilled Speech Therapy Services: Yes - 3-5x weekly for 2-4 weeks with reassessment Education Completed: 1. Described result of evaluation., 7. Pt requires further education on strategies & risks. - Status Active ST Patient: Active - Contact Information [facility]:: Brigitte Rivera MA, CCC-INSTRUMENTATION AND CONTROLS DESIGNER [address] [address] [email or web address]
--- NOTE | 2020-12-03 12:30 | NURSING ---
attempted IV insertion x4 w/out success. RN cd manufacturing supervisor notified,
[2020-12-03 13:21] LABS: Pathologist Review Reviewed
--- NOTE | 2020-12-03 14:14 | CASEMGMT ---
Social Work Met with patient for initial assessment. Discussed code status with pt. Pt confirmed DNR-CCA, no intubation. No changes to previous MOLST form. Advanced directives on file. Explained Medicare benefit and double checking if pt admitted with full benefit. Will follow up with pt once that is confirmed. SW to continue to follow for DC planning. Stacia Fraga, B OPERATOR SUPERINTENDENT [employer]
[2020-12-03 15:01] VITALS: BP 116/50; PULSE 78; RESP 20; TEMP 36.3; O2SAT 94
--- NOTE | 2020-12-03 16:00 | NURSING ---
When assessing IV site to RT AC, noted edema at site. no s/s infection. stopped fluids and removed saline lock. warm compress applied. DR Santos updated, new order for to DC IVF and encourage PO fluids. Had modified swallow test today, able to change fluids to nectar from honey.
[2020-12-03 16:06] VITALS: PULSE 87; RESP 18; O2SAT 93
[2020-12-03] MEDS: Jantoven 2 MG Tablet PO (17:22)
[2020-12-03] MEDS: Atorvastatin Calcium 20 MG Tablet PO (21:03)
[2020-12-03] MEDS: MELATONIN 10 MG TABLET PO (21:08)
[2020-12-03 23:05] VITALS: PULSE 72; RESP 12; O2SAT 96
[2020-12-04 01:06] VITALS: PULSE 76; RESP 12; RESP 26; O2SAT 96
--- NOTE | 2020-12-04 02:21 | NURSING ---
Addendum entered by Vivi Steward 12/04/20 05:43: Mcdowell placed per Dr. Santos. Placement verified. Little urine draining out. Several pieces of sediment noted. Addendum entered by Vivi Steward 12/04/20 03:01: Straight cath'd patient d/t scanning at 684 mL. 300 mL obtained, patient still scanning at 313 mL. Catheter full of sand like sediment and unable to drain bladder fully. Original Note: Patient used call light and stated he was choking. This Nurse and RN's ran to patients room. Patient coughing and able to cough up thick brownish colored sputum. Mouth care provided. Patient gave small sips of [place] water. Patient in comfortable position at this time.
[2020-12-04 03:11] VITALS: BP 112/42; PULSE 79; RESP 22; TEMP 36.4; O2SAT 94
[2020-12-04 03:25] VITALS: PULSE 78; RESP 20; O2SAT 97
[2020-12-04] MEDS: Albuterol 2.5 MG/3 ML VIAL.NEB. INHALATION (03:25)
[2020-12-04] MEDS: oxyCODONE 5 MG Tablet PO ×2 (04:52→09:31)
[2020-12-04] MEDS: Levothyroxine 150 MCG Tablet PO (05:36)
[2020-12-04] MEDS: Acetaminophen 500 MG Tablet 1000 MG PO (05:36)
[2020-12-04] MEDS: Amiodarone 200 MG Tablet PO (05:36)
[2020-12-04] MEDS: Carvedilol 12.5 MG Tablet PO (05:36)
[2020-12-04] MEDS: Furosemide 40 MG Tablet PO (05:36)
[2020-12-04] MEDS: Clopidogrel Bisulfate 75 MG Tablet PO (05:36)
[2020-12-04] MEDS: Ramipril 5 MG Capsule PO (05:36)
[2020-12-04] MEDS: Iron Polysaccharide Complex 150 MG CAPSULE PO (05:36)
[2020-12-04] MEDS: Menthol/Lanolin/Calamine/Znox 113 GM Tube 1 APPLIC TOPICAL (05:37)
[2020-12-04] MEDS: Nystatin Powder 15gm Bottle 1 APPLIC TOPICAL (05:37)
[2020-12-04 05:52] LABS: International Normalized Ratio 3.3; Prothrombin Time (Protime)PT. 33.4 SECONDS (11.7-14.9)
[2020-12-04 05:56] LABS: Anion Gap 5 (5-15); BUN 53 mg/dL (7-18); BUN/Creat Ratio 31.2 RATIO (10-20); Calcium,Total 7.5 mg/dL (8.5-10.1); Chloride 113 mmol/L (98-107); EST Glomerular Filtration Rate 42 mL/min (>60); Est Glom Filt Rate - Afr Amer 50 mL/min (>60); Estimated Creatinine Clearance 26.06 ml/min; Glucose 124 mg/dL (74-106); Potassium 3.6 mmol/L (3.5-5.1); Sodium Level 149 mmol/L (136-145)
[2020-12-04 07:16] VITALS: O2SAT 93
--- NOTE | 2020-12-04 07:23 | NURSING ---
FC draining sm amts of urine in tubing, mclaughlin tube for culture obtained and sent to lab, no further urine in tubing for yellow top tube, pt cont to be anxious and requesting to move freq and cont to co pain
--- NOTE | 2020-12-04 08:42 | CASEMGMT ---
Addendum entered by Stacia Fraga 12/04/20 10:43: Pt approved for [facility]. Scheduled cot transport through [facility] for 11 am. IDT notified. Spoke with pt's and son on updates - provided emotional support. Both very appreciative of care given to pt over the years. Plan: DC to [facility] 12/04 Original Note: Social Work Dr. Santos notified SW that pt is actively dying and having uncontrolled SOB and pain, to refer to [facility] today. spoke with pt and whom are agreeable. Referral made to [facility]. Awaiting outcome. Will continue to follow. CODEY Lozano
[2020-12-04] MEDS: Folic Acid 1 MG Tablet PO (09:18)
[2020-12-04 09:21] VITALS: BP 85/38; PULSE 88; RESP 24; O2SAT 94
[2020-12-04 09:34] LABS: Mucous, Urine 0 SEEN /hpf (<or=2+)
[2020-12-04 09:40] VITALS: PULSE 88; RESP 24; O2SAT 94
[2020-12-04 09:48] LABS: Color, Urine Yellow (Yellow); Glucose, Dipstick Normal (Normal); Ketone-Dipstick 5 mg/dl (Negative); Leukocyte Esterase-Dipstick 100 /ul (Negative); Nitrite-Dipstick Negative (Negative); Occult Blood-Urine 250 /ul (Negative); Protein-Dipstick 100 mg/dl (Negative); Specific Gravity, Urine 1.015 (1.002-1.030); Urine Bilirubin Dipstick Negative (Negative); Urine Clarity Sl. Cloudy (Clear); Urine Urobilinogen Normal (Normal)
--- NOTE | 2020-12-04 09:50 | NURSING ---
PT SON CALLED IN TO TALK TO THIS NURSE AND ASKED WHY WE/ WERE STATING HIS DAD NEEDED HOSPICE AND WHAT WERE HIS SYMPTOMS. THIS NURSE EXPLAINED TO SON ABOUT EVERYTHING HE ASKED AND SON WAS OK WITH IT AND SATISFIED WITH THE ANSWERS. SON STATED HE FELT IT WAS COMING. THIS NURSE STATED TO SON HE CAN CALL IN ANY TIME IF ANY MORE QUESTIONS OR CONCERNS. SON THANKED THIS NURSE AND APPRECIATED ALL THE CARE EVERYONE HAS GIVEN HIS DAD. RN AWARE
[2020-12-04 10:00] LABS: Amorphous Sediment 4+
[2020-12-04 10:01] LABS: White Blood Cells 10-25 SEEN /hpf (0-5)
[2020-12-04 10:02] LABS: Red Blood Cells-Urine 50-100 SEEN /hpf (0-5)
[2020-12-04 10:04] LABS: Fine Granular Cast- Urine 0-5 SEEN /lpf (0-5); Hyaline Cast 0-5 SEEN /lpf (0-5); Renal Epithelial Cells 0-5 SEEN /hpf (0-5); Squamous Epithelial Cells - UA 0-5 SEEN /hpf (0-5)
[2020-12-04 10:05] LABS: Bacteria 0 SEEN /hpf (None Seen)
--- NOTE | 2020-12-04 10:48 | DCINST_ITS ---
- Discharge Diagnoses Current Active Problems: Current Active and Chronic Problems (Last Reviewed 11/14/20 @ 14:[address] Elo Parham DO) Acute hypoxemic respiratory failure (Acute) Debility (Acute) Klebsiella pneumonia (Acute) Aspiration pneumonia (Acute) Acute on chronic diastolic congestive heart failure (Chronic) Acute bilateral COVID-19 pneumonia (Acute) Aortic stenosis (Chronic) DVT (deep venous thrombosis) (Chronic) Chronic kidney disease (Chronic) Peripheral arterial occlusive disease (Chronic) Thoracic aortic aneurysm (Chronic) Abdominal aortic aneurysm (Chronic) BPH (benign prostatic hyperplasia) (Chronic) Hyperlipidemia (Chronic) Coronary artery disease (Chronic) Hypertension (Chronic) COPD (chronic obstructive pulmonary disease) (Chronic) Pulmonary embolism (Chronic) Hypothyroidism (Chronic) Atrial fibrillation (Chronic) You will use the following diet at home:: No restrictions, Regular Your liquids should be the consistency of: Regular/Thin Discharge Activity: Return to Normal Activity Weight Bearing Status: Weight bearing as tolerated Allergies/Adverse Reactions: Allergies No Known Allergies Allergy (Verified 10/20/20 18:10) Primary Care Physician: Ihsan Modi MD [Primary Care Provider] - Please follow up with your Primary Care Physician in: N/A. Test Results: Test results from this visit will be discussed in further detail at your follow- up appointment, if applicable. Please Follow Up With: Dr. Hayes When: N/A. Please Follow Up With: Boo Jones MD When: N/A. Proposed Discharge Date: 12/04/20
--- NOTE | 2020-12-04 10:49 | PCM.DC.SUM ---
Discharge Date and Diagnosis - Problem List Patient Problems: Active and Suspected Problems (Last Reviewed 11/14/20 @ 14:[address] Elo Parham DO) Acute hypoxemic respiratory failure (Acute) Debility (Acute) Klebsiella pneumonia (Acute) Aspiration pneumonia (Acute) Acute bilateral COVID-19 pneumonia (Acute) Date of Admission: 12/02/20 Date of Discharge: 12/04/20 - Primary Discharge Diagnosis Acute Problems: Active Problems (Last Reviewed 11/14/20 @ 14:[address] Elo Parham DO) Acute hypoxemic respiratory failure (Acute) Debility (Acute) Klebsiella pneumonia (Acute) Aspiration pneumonia (Acute) Acute bilateral COVID-19 pneumonia (Acute) - Secondary Discharge Diagnosis Chronic Problems: Chronic Problems (Last Reviewed 11/14/20 @ 14:[address] Elo Parham DO) Acute on chronic diastolic congestive heart failure (Chronic) Failed total hip arthroplasty (Chronic) Chronic left hip pain (Chronic) Other specified peripheral vascular diseases (Chronic) Tinea unguium (Chronic) Thoracoabdominal aneurysm (Chronic) Placement of a [place] VBX 6 x 29 balloon expandable covered stent into the left renal artery aneurysm and dissection, placement of an 8 x 150 [place] to left popliteal aneurysm and left popliteal artery postdilated tension with a 8 x 100 community relations advisor balloon on 04/16/2020 at [facility] with Dr. Brody Scott; Closed left hip fracture (Chronic) Aortic stenosis (Chronic) DVT (deep venous thrombosis) (Chronic) Anemia (Chronic) Chronic kidney disease (Chronic) Peripheral arterial occlusive disease (Chronic) Thoracic aortic aneurysm (Chronic) Abdominal aortic aneurysm (Chronic) BPH (benign prostatic hyperplasia) (Chronic) Urinary retention (Chronic) Closed right hip fracture (Chronic) Hyperlipidemia (Chronic) Coronary artery disease (Chronic) Hypertension (Chronic) Chronic diastolic heart failure (Chronic) Thoracic aortic aneurysm, ruptured (Chronic) Mixed hyperlipidemia (Chronic) Chronic heart failure with preserved ejection fraction (Chronic) History of aortic valve repair (Chronic ~10/28/07) Hx of repair of ascending aorta (Chronic ~10/28/07) 32mm [place] graft 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) Essential hypertension (Chronic) Presence of stent in coronary artery (Chronic ~05/24/06) PCI/ILANA of the of 2nd Diagonal instent restenosis 05/24/06 Atherosclerotic heart disease of [place] coronary artery without angina pectoris (Chronic) COPD (chronic obstructive pulmonary disease) (Chronic) Tobacco abuse (Chronic) Tobacco dependence in remission (Chronic) Pulmonary embolism (Chronic) Hypothyroidism (Chronic) Atrial fibrillation (Chronic) Hospital Course and Treatment Imaging Results: 12/02/20 16:50 Diet: Regular - General Food consistency:: Pureed Liquid Consistency:: [place]/Mildly Thick Type of Dietary Supplement:: Ensure Pudding Diet Comments: total feed, cues to take double swallow and cough/reswallow Labs (Last 48 Hours) 12/03/20 12/03/20 12/03/20 05:25 05:25 05:25 WBC 18.2 H RBC 3.29 L Hgb 9.2 L Hct 31.4 L MCV 95.4 H MCH 28.0 MCHC 29.3 L RDW Std Deviation 55.5 H RDW Coeff of Ej 16.1 H Plt Count 380 MPV 10.5 Neut % (Auto) Not Reportable Absolute Neuts (auto) 16.0 H Absolute Lymphs (auto) 0.18 L Total Counted 100 Neutrophils % (Manual) 84 H Band Neutrophils % 4 Lymphocytes % (Manual) 1 L Monocytes % (Manual) 7 Eosinophils % (Manual) 1 Myelocytes % 3 H Diff Path Review Reviewed Platelet Estimate ADEQUATE Ovalocytes RARE Schistocytes RARE PT 22.5 H INR 2.0 Sodium 150 H Potassium 3.9 Chloride 114 H Carbon Dioxide 32.0 Anion Gap 4 L BUN 49 H Creatinine 1.29 Estim Creat Clear Calc 34.35 Est GFR (MDRD) Af Amer 69 Est GFR (MDRD) Non-Af 57 L BUN/Creatinine Ratio 38.0 H Glucose 109 H Calcium 7.6 L Urine Color Urine Clarity Urine pH Ur Specific [place] Urine Protein Urine Glucose (UA) Urine Ketones Urine Occult Blood Urine Nitrite Urine Bilirubin Urine Urobilinogen Ur Leukocyte Esterase Urine RBC Urine WBC Ur Squamous Epith Cells Ur Renal Epithelial Cell Amorphous Sediment Urine Bacteria Hyaline Casts Fine Granular Casts Urine Mucus 12/04/20 12/04/20 12/04/20 05:20 05:20 09:25 WBC RBC Hgb Hct MCV MCH MCHC RDW Std Deviation RDW Coeff of Ej Plt Count MPV Neut % (Auto) Absolute Neuts (auto) Absolute Lymphs (auto) Total Counted Neutrophils % (Manual) Band Neutrophils % Lymphocytes % (Manual) Monocytes % (Manual) Eosinophils % (Manual) Myelocytes % Diff Path Review Platelet Estimate Ovalocytes Schistocytes PT 33.4 H INR 3.3 Sodium 149 H Potassium 3.6 Chloride 113 H Carbon Dioxide 31.0 Anion Gap 5 BUN 53 H Creatinine 1.70 H Estim Creat Clear Calc 26.06 Est GFR (MDRD) Af Amer 50 L Est GFR (MDRD) Non-Af 42 L BUN/Creatinine Ratio 31.2 H Glucose 124 H Calcium 7.5 L Urine Color Yellow Urine Clarity Sl. Cloudy Urine pH 5.0 Ur Specific [place] 1.015 Urine Protein 100 H Urine Glucose (UA) Normal Urine Ketones 5 H Urine Occult Blood 250 H Urine Nitrite Negative Urine Bilirubin Negative Urine Urobilinogen Normal Ur Leukocyte Esterase 100 H Urine RBC 50-100 SEEN Urine WBC 10-25 SEEN Ur Squamous Epith Cells 0-5 SEEN Ur Renal Epithelial Cell 0-5 SEEN Amorphous Sediment 4+ Urine Bacteria 0 SEEN Hyaline Casts 0-5 SEEN Fine Granular Casts 0-5 SEEN Urine Mucus 0 SEEN Microbiology 12/04/20 03:30 Stool C. difficile GDH Antigen & Toxins - Final Toxigenic C. difficile 12/04/20 03:30 Stool C. difficile DNA Amplification - Final Operations: None Procedures: None Summary of Care Provided: The patient is a 80 year old Male with below past medical history hospitalized for acute hypoxic respiratory failure requiring intubation, pressors, secondary to COVID19 pneumonia, acute on chronic diastolic congestive heart failure, aspiration pneumonia, admitted to TCU with debility, here for rehabilitation, strengthening, prior to disposition determination, consider hospice. 12/04/2020 I told Moises he is dying, I told Moises's Vanessa he is dying. Moises is positive for C. Diff. Resident dying, discharge to inpatient hospice for end of life care. Patient Problems: Active and Suspected Problems (Last Reviewed 11/14/20 @ 14:[address] Elo Parham, DO) Acute hypoxemic respiratory failure (Acute) Debility (Acute) Klebsiella pneumonia (Acute) Aspiration pneumonia (Acute) Acute bilateral COVID-19 pneumonia (Acute) - Physical Exam Vitals/I&O's: Vital Signs Temp Pulse Resp BP Pulse Ox 97.6 F L 88 24 H 85/38 L 94 12/04/20 03:11 12/04/20 09:40 12/04/20 09:40 12/04/20 09:21 12/04/20 09:40 Oxygen Flow Rate (L/min) 4 Oxygen Delivery Method Nasal Cannula Weight: 60.8 kg Body Mass Index (BMI) 25.3 Intake and Output for Last 24 Hours 12/02/20 12/03/20 12/04/20 23:59 23:59 23:59 Intake Total 120 / 120 715 / 715 0 / 0 Output Total 300 / 300 Balance 120 / 120 715 / 715 -300 / -300 Microbiology Past 72 Hours 12/04/20 03:30 Stool C. difficile GDH Antigen & Toxins - Final Toxigenic C. difficile 12/04/20 03:30 Stool C. difficile DNA Amplification - Final Laboratory Results 12/03/20 05:25: Diff Path Review Reviewed 12/04/20 05:20: PT 33.4 H, INR 3.3 12/04/20 05:20: Sodium 149 H, Potassium 3.6, Chloride 113 H, Carbon Dioxide 31.0, Anion Gap 5, BUN 53 H, Creatinine 1.70 H, Estim Creat Clear Calc 26.06, Est GFR (MDRD) Af Amer 50 L, Est GFR (MDRD) Non-Af 42 L, BUN/Creatinine Ratio 31.2 H, Glucose 124 H, Calcium 7.5 L 12/04/20 09:25: Urine Color Yellow, Urine Clarity Sl. Cloudy, Urine pH 5.0, Ur Specific [place] 1.015, Urine Protein 100 H, Urine Glucose (UA) Normal, Urine Ketones 5 H, Urine Occult Blood 250 H, Urine Nitrite Negative, Urine Bilirubin Negative, Urine Urobilinogen Normal, Ur Leukocyte Esterase 100 H, Urine RBC 50-100 SEEN, Urine WBC 10-25 SEEN, Ur Squamous Epith Cells 0-5 SEEN, Ur Renal Epithelial Cell 0-5 SEEN, Amorphous Sediment 4+, Urine Bacteria 0 SEEN, Hyaline Casts 0-5 SEEN, Fine Granular Casts 0-5 SEEN, Urine Mucus 0 SEEN Current Medications Acetaminophen (Acetaminophen 500 Mg Tablet) 1,000 mg PO Q8 SILVERIO Last Admin: 12/04/20 05:36 Dose: 1,000 mg Documented by: Albuterol Sulfate (Albuterol 2.5 Mg/3 Ml Vial.Neb.) 2.5 mg INHALATION Q2H PRN PRN PRN Reason: SHORTNESS OF BREATH Last Admin: 12/04/20 03:25 Dose: 2.5 mg Documented by: Amiodarone HCl (Amiodarone 200 Mg Tablet) 200 mg PO DAILY [facility] Last Admin: 12/04/20 05:36 Dose: 200 mg Documented by: Atorvastatin Calcium (Atorvastatin Calcium 20 Mg Tablet) 20 mg PO QHS [facility] Last Admin: 12/03/20 21:03 Dose: 20 mg Documented by: Bisacodyl (Bisacodyl 5 Mg Tablet) 10 mg PO DAILY PRN PRN Reason: Constipation Calamine/Phenol (Menthol/Lanolin/Calamine/Znox 113 Gm Tube) 1 applic TOPICAL 0600,2200 [facility]; Protocol Last Admin: 12/04/20 05:37 Dose: 1 applicatio Documented by: Calcium Carbonate (Calcium Carbonate 500 Mg Tablet) 500 mg PO Q6H PRN PRN PRN Reason: HEARTBURN Carvedilol (Carvedilol 12.5 Mg Tablet) 12.5 mg PO BID [facility] Last Admin: 12/04/20 05:36 Dose: 12.5 mg Documented by: Cholecalciferol (Cholecalciferol (Vit D3) 1,000 Unit (25mcg)) 2,000 unit PO DAILY [facility] Last Admin: 12/04/20 05:36 Dose: 2,000 unit Documented by: Clopidogrel Bisulfate (Clopidogrel Bisulfate 75 Mg Tablet) 75 mg PO DAILY [facility] Last Admin: 12/04/20 05:36 Dose: 75 mg Documented by: Folic Acid (Folic Acid 1 Mg Tablet) 1 mg PO DAILYCM [facility] Last Admin: 12/04/20 09:18 Dose: 1 mg Documented by: Furosemide (Furosemide 40 Mg Tablet) 40 mg PO DAILY [facility] Last Admin: 12/04/20 05:36 Dose: 40 mg Documented by: Levothyroxine Sodium (Levothyroxine 150 Mcg Tablet) 150 mcg PO DAILY [facility] Last Admin: 12/04/20 05:36 Dose: 150 mcg Documented by: Magnesium Hydroxide (Magnesium Hydroxide 30 Ml Udc) 30 ml PO DAILY PRN PRN Reason: Constipation Melatonin (Melatonin 10 Mg Tablet) 10 mg PO QHS PRN PRN Reason: INSOMNIA Last Admin: 12/03/20 21:08 Dose: 10 mg Documented by: Nitroglycerin (Nitroglycerin (Inpatient Use) 0.4 Mg Tab.Subl) 0.4 mg SUBLINGUAL Q5M PRN PRN Reason: CARDIAC/CHEST PAIN Nystatin (Nystatin Powder 15gm Bottle) 1 applic TOPICAL BID [facility]; Protocol Last Admin: 12/04/20 05:37 Dose: 1 applicatio Documented by: Oxycodone HCl (Oxycodone 5 Mg Tablet) 5 mg PO Q4H PRN PRN PRN Reason: Pain Score 6-10 Last Admin: 12/04/20 09:31 Dose: 5 mg Documented by: Polyethylene Glycol (Polyethylene Glycol 3350 17 Gm Packet) 17 gm PO DAILY PRN PRN Reason: Constipation Polysaccharide Iron Complex (Iron Polysaccharide Complex 150 Mg Capsule) 150 mg PO DAILY [facility] Last Admin: 12/04/20 05:36 Dose: 150 mg Documented by: Ramipril (Ramipril 5 Mg Capsule) 5 mg PO DAILY [facility] Last Admin: 12/04/20 05:36 Dose: 5 mg Documented by: Senna/Docusate Sodium (Senna/Docusate Sodium 1 Tablet) 2 tablet PO BID PRN PRN Reason: Constipation Sodium Chloride (0.9% Saline Lock 10 Ml Syringe) 10 - 40 ml IV UD PRN PRN Reason: SALINE FLUSH Last Admin: 12/03/20 05:12 Dose: 10 ml Documented by: Sodium Chloride (Sodium Chloride 0.65% 1 [place].Btl) 2 spray NASAL TID PRN PRN PRN Reason: NASAL DRYNESS Last Admin: 12/03/20 10:35 Dose: 2 spray Documented by: Tuberculin PPD (Tuberculin,Purif.Prot.Deriv. 50 Tu/Ml Vial) 5 tu ID [id number] Stop: 12/10/20 10:01 Warfarin Sodium (Jantoven 2 Mg Tablet) 2 mg PO DAILY@1700 [facility] Last Admin: 12/03/20 17:22 Dose: 2 mg Documented by: Discharge Diet: No Restrictions Discharge Activity: Return to Normal Activity Weight Bearing Status: Weight bearing as tolerated Primary Care Physician: Ihsan Modi MD [Primary Care Provider] - Please follow up with your Primary Care Physician in: N/A. Please Follow Up With: Dr. Hayes When: N/A. Please Follow Up With: Boo Jones MD When: N/A. Disposition: Hospice Medical Facility Minutes spent on discharge:: 35 Patient Condition:: Poor Medical Necessity - Tobacco Use Smoking Status: Former smoker Tobacco Use: Non-smoker, Cigarettes Meaningful Use Info Meaningful Use Diagnoses (Choose all that apply): None applicable
--- NOTE | 2020-12-04 11:21 | NURSING ---
Report called to Sada at Hospice.
--- NOTE | 2020-12-14 13:27 | MDS.RN ---
Information for the mds was obtained from review of the clinical record, interview of resident, staff, and direct observation of resident's care.
== END 2020-12-04 11:28 | disposition hospice, inpatient (51) | DRG 291 ==
PROVIDERS: Admitting Provider Family Medicine Geriatric Medicine; PCP Family Medicine; Referring Provider Family Medicine Geriatric Medicine; Visit Provider Family Medicine Geriatric Medicine
DX: I13.0 Hypertensive heart and chronic kidney disease with heart failure and stage 1 through stage 4 chronic kidney disease, or unspecified chronic kidney disease (principal); I50.33 Acute on chronic diastolic (congestive) heart failure; I48.20 Chronic atrial fibrillation, unspecified; A04.72 Enterocolitis due to Clostridium difficile, not specified as recurrent; N18.9 Chronic kidney disease, unspecified; J44.9 Chronic obstructive pulmonary disease, unspecified; E03.9 Hypothyroidism, unspecified; I73.9 Peripheral vascular disease, unspecified; I25.10 Atherosclerotic heart disease of native coronary artery without angina pectoris; D50.9 Iron deficiency anemia, unspecified; E78.2 Mixed hyperlipidemia; N40.1 Benign prostatic hyperplasia with lower urinary tract symptoms; E55.9 Vitamin D deficiency, unspecified; R33.9 Retention of urine, unspecified; Z87.891 Personal history of nicotine dependence; Z86.711 Personal history of pulmonary embolism; Z86.16 Personal history of COVID-19; Z87.01 Personal history of pneumonia (recurrent); Z86.718 Personal history of other venous thrombosis and embolism
CPT/HCPCS: 36415; 74230; 80048; 81001; 85025; 85610; 87086; 87493; 92526; 92611; 94002; 94640; 97110; 97162; 97166; 97530; 97535; 97802; A4216